=== PATIENT | female | born 1960 | race Caucasian/White ===

== ENCOUNTER 2018-02-13 15:19 | Emergency (ER) | payer MEDICAID, SELFPAY ==
[2018-02-13 15:20] VITALS: BP 140/78; PULSE 89; RESP 16; TEMP 36.9; O2SAT 95; BMI 36.0
--- NOTE | 2018-02-13 15:50 | VDLE_ITS ---
Reason For Study: PAIN RIGHT GSV is normal. CFV is compressible, spontaneous, phasic, competent and demonstrates normal augmentation. FV is compressible, spontaneous, phasic, competent and demonstrates normal augmentation. POP V is compressible, spontaneous, phasic, competent and demonstrates normal augmentation. T/P Trunk is compressible. PTV is compressible. RT PerV is compressible. Procedure Exam performed portable in ED. A preliminary report was called and/or faxed to ED. Interpretation Summary Deep veins of the right lower extremity are patent and compressible segmentally. There is no evidence of right lower extremity deep vein thrombosis. Valvular competence appears intact within the proximal deep venous system on the right . The right greater saphenous vein appears patent and compressible segmentally. Ordering Physician: Ann Martínez Referring Physician: FIONA DURANT Performed By: Citlali Cornell, SYLVIA, RVT
--- NOTE | 2018-02-13 16:01 | ED.DCSUM_ITS ---
- ER Visit Summary Date of Service: 02/13/18 Chief Complaint: Right leg pain and swelling History of Present Illness: The patient is a 57 F with tightness in the posterior right calf with the past 3 or 4 days. She feels that the area is swollen and is tight when she tries to walk. She denies any known injury. She has no weakness or paresthesias. 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 She denies history of prior blood clot. She has had no chest pain or shortness of breath. Physical Examination: Vital signs are unremarkable. Patient is in no acute distress and is nontoxic appearing. Head and neck examination is normal. Heart is regular rate and rhythm. Palpable pulses are noted throughout. Lungs are clear with good air movement throughout. Abdomen is soft and nontender. Bowel sounds are noted. Extremity examination is markable for mild right posterior calf tenderness with minimal edema. There is no overlying erythema. She has full range of motion. Neurologic examination reveals no focal deficits. Test Results: Venous ultrasound of the right leg reveals no evidence of DVT. Emergency Department Course and Treatment: Test results were discussed with patient and family at bedside. I believe she likely has a strain in 1 of the deep muscles in her right calf. Stretching was discussed along with anti- inflammatories for pain control. Treatment Plan: [] Disposition: Discharge Impression: Right calf strain This note was generated with [employer] dictation software. It may contain incorrect words, spelling, and punctuation that were not noted in review of the chart prior to signing ED Disposition - Plan for ED Patient: Chief Complaint: Lower Extremity Injury Referrals: Lulú Camacho MD [Primary Care Provider] -
--- NOTE | 2018-02-13 16:21 | ED.DEP ---
ED Disposition - Plan for ED Patient: Disposition: Home or Assisted Living Chief Complaint: Lower Extremity Injury Instructions: ED Strain Muscle Ext Referrals: Lulú Camacho MD [Primary Care Provider] - 1 Week if not improving
== END 2018-02-13 16:37 | disposition home or self-care (01) ==
LOC: ED 16:25
PROVIDERS: Emergency Provider Emergency Medicine; Family Provider Internal Medicine; PCP Internal Medicine
DX: S86.911A Strain of unspecified muscle(s) and tendon(s) at lower leg level, right leg, initial encounter (principal); X58.XXXA Exposure to other specified factors, initial encounter; Y93.9 Activity, unspecified; Y92.89 Other specified places as the place of occurrence of the external cause; Y99.9 Unspecified external cause status; J44.9 Chronic obstructive pulmonary disease, unspecified; G47.33 Obstructive sleep apnea (adult) (pediatric); Z72.0 Tobacco use
CPT/HCPCS: 93971; 99282

== ENCOUNTER 2019-02-17 11:45 | Emergency (ER) | payer MEDICAID, SELFPAY ==
[2019-02-17 11:46] VITALS: BP 139/92; PULSE 87; RESP 16; TEMP 35.7; O2SAT 98; BMI 36.7
[2019-02-17] MEDS: Ondansetron 4 MG/2 ML Vial IV (12:09)
[2019-02-17] MEDS: Morphine 4 MG/ML Syringe IV (12:10)
--- NOTE | 2019-02-17 12:17 | ED.DCSUM_ITS ---
History of Present Illness Chief Complaint: Back Informant: Patient Onset: Days - Onset 4 days ago Context: Gradual Onset Timing: Continuous Quality: Dull, Aching Location: Lumbar, Buttock, Right Leg - Posterior right leg to the popliteal fossa Current Severity: Mild Maximum Severity: Severe Associated Symptoms: - - The only associated symptom is radiation posterior right leg to the popliteal fossa. There is no bowel bladder dysfunction. There is no saddle paresthesia or anesthesia. There is no foot drop with walking. There is no weakness thigh muscles going up or down steps nor is her knee buckle. She prefer to sit versus standing. Narrative: Patient is a middle-aged woman who presents with right low back pain radiating to the popliteal fossa. Onset 4 days ago. She denies any neurovascular symptoms. Movement exacerbates her pain. She has not applied heat or ice to her back. She is taken [id number] ibuprofen with no effect. There are no concerning symptoms and history is unremarkable. Prior similar symptoms: No Recent Illness/Hospitalization: No Past Medical History - Allergies and Home Meds Allergies/Adverse Reactions: Allergies amoxicillin trihydrate [From Augmentin] Allergy (Verified 02/17/19 11:47) Hives potassium clavulanate [From Augmentin] Allergy (Verified 02/17/19 11:47) Hives Primary Care Physician: Lulú Camacho MD [Primary Care Provider] - Prior records reviewed: Yes Surgical History: noncontributory Lives: Spouse/ Significant Other Smoking Status: Current every day smoker Alcohol: Rare Review of Systems General: Denies: Chills, Fever, Malaise, Subjective, Sweats, Weight loss Eyes: Denies: Visual changes - bilaterally, Diplopia ENT: Denies: Rhinorrhea, Sore throat Cardiovascular: Denies: Chest pain, Palpitations Respiratory: Denies: Dyspnea, Cough, Dyspnea on exertion Gastrointestinal: Denies: Abdominal pain, Nausea, Vomiting, Diarrhea, Melena, Hematochezia Genitourinary: Denies: Dysuria, Hematuria, Frequency Musculoskeletal: Reports: Back pain. Denies: Myalgias, Arthralgias, Neck pain, Swelling, Extremity Pain, -, - Skin: Denies: Rash, Wounds Neurological: Denies: Headache, Weakness, Parasthesia, Numbness, -, - Hematologic: Denies: Easy bruising, Easy bleeding Allergy: Denies: Uticaria, Swelling of the mouth Physical Exam Vital Signs/Narrative: Vital Signs Temp Pulse Resp BP Pulse Ox 02/17/19 11:46 96.2 F L 87 16 139/92 H 98 Inital Vital Signs reviewed: Yes General: Well nourished, Well developed, Obese Head: Normocephalic, Atraumatic Eyes: Perrl, EOMI ENT: Moist mucous membranes, No rhinorrhea Neck: Supple, Nontender, No lymphadenopathy, No JVD Cardiovascular: Regular rate, Regular rhythm, No murmurs, Normal S1, Normal S2 Respiratory: No distress, CTA bilaterally, Chest nontender Abdomen: Soft, Nontender, Nondistended, Normal bowel sounds Back: Normal Inspection, Nontender, Paraspinal Tenderness, Positive SLR - Right, Negative SLR - Left. Negative for: Spinal tenderness, CVA tenderness, Positive SLR - Left Extremeties: Nontender, No edema Skin: Normal color, No rash, No Trauma. Negative for: Cyanosis, Jaundice Neuro: Alert, Oriented, Normal Strength, Normal Sensation, Normal DTR, Normal Gait, Normal Reflexes, Normal Cerebellar Reflexes: Right Patellar, Right Achilles, Left Patellar, Left Achilles, - - DTR 1+ symmetric. EHL intact. Patient able to ambulate on heels and toes. Patient able to do 1 legged squat right and left. Normal perianal sensation.. Negative for: Right Clonus, Right Babinski, Left Clonus, Left Babinski Psychological: Normal affect Diagnostic/Tx/Re-eval - Medical Decision Making Patient has equivocal straight leg test on the right. Negative crossover test on the left. Positive bowstring sign. Patient was medicated with 50 mill grams Toradol IV push and 4 mg of morphine IV push. She also received Zofran to prevent nausea and vomiting. Will reassess in 30 to 60 minutes. Patient was reevaluated at 1245. She reports marked improvement of her pain. Will discharge to home to follow-up with her primary care physician. ED Disposition - Plan for ED Patient: Disposition: Home or Assisted Living Diagnosis: Acute right-sided low back pain with sciatica Instructions: ED Sciatica Prescriptions: Hydrocodone Bitart/Apap 5-325 [[place] 5MG-325MG] 1 tab PO Q6H PRN PRN 3 Days #10 tab PRN Reason: Pain Referrals: Lulú Camacho MD [Primary Care Provider] - 3-5 Days if not improving Additional Instructions: If you develop a foot drop return to the emergency department immediately.
[2019-02-17] MEDS: Ketorolac 15 MG/ML Vial IV (12:20)
[2019-02-17 12:54] VITALS: BP 124/65; PULSE 74; RESP 18
== END 2019-02-17 12:55 | disposition home or self-care (01) ==
PROVIDERS: Emergency Provider Emergency Medicine; Family Provider Internal Medicine; PCP Internal Medicine
DX: M54.41 Lumbago with sciatica, right side (principal); F17.200 Nicotine dependence, unspecified, uncomplicated; Z88.0 Allergy status to penicillin
CPT/HCPCS: 99284; A4216; J2405

== ENCOUNTER 2019-10-08 23:28 | Inpatient (IN) | payer MEDICAID, SELFPAY ==
[2019-10-08 23:30] VITALS: BP 149/77; PULSE 86; RESP 20; TEMP 36; O2SAT 94; BMI 36.4
--- NOTE | 2019-10-08 23:33 | RAD_ITS ---
HISTORY: CHEST PAINSTEMI ADDITIONAL HISTORY: None provided. TECHNIQUE: Frontal chest radiograph. Number of images including paperwork: 2 COMPARISON: 10/15/2017 FINDINGS: LUNGS AND PLEURA: No consolidation, mass or pleural effusion. CARDIAC SILHOUETTE: Unremarkable. MEDIASTINUM AND CESARIO: Unremarkable. UPPER ABDOMEN: Unremarkable. SKELETON AND SOFT TISSUES: No acute findings. OTHER DEVICES AND HARDWARE: None. RAD/Chest 1 View (Portable) IMPRESSION: No acute cardiopulmonary abnormality. at 0029 Reported and signed by: Mahi Hanson MD Electronically Signed: Mahi Hanson MD at 0:28 EST Tel , Service support ,
--- NOTE | 2019-10-08 23:33 | EKG12_ITS ---
Test Reason : CP Blood Pressure : / mmHG Vent. Rate : 063 BPM Atrial Rate : 063 BPM P-R Int : 154 ms QRS Dur : 086 ms QT Int : 358 ms P-R-T Axes : 069 101 101 degrees QTc Int : 366 ms AGE AND GENDER SPECIFIC ECG ANALYSIS Normal sinus rhythm Rightward axis ST elevation consider inferior injury or acute infarct ACUTE ID / STEMI Consider right ventricular involvement in acute inferior infarct Abnormal ECG Confirmed by ELIAS MATHUR, CRISTINA ([id number]), editor & co founder GINA SANDERSON ([id number]) on 10/10/2019 2:13:55 PM Referred By: Jose Francisco Dior Confirmed By:CRISTINA GRIFFIN MD
[2019-10-08 23:37] VITALS: PULSE 82; RESP 15; O2SAT 99
[2019-10-08] MEDS: Aspirin 81 MG TAB.CHEW 324 MG PO (23:41)
[2019-10-08 23:42] VITALS: O2SAT 100
--- NOTE | 2019-10-08 23:42 | EKG12_ITS ---
Test Reason : POST CATH Blood Pressure : / mmHG Vent. Rate : 076 BPM Atrial Rate : 076 BPM P-R Int : 166 ms QRS Dur : 082 ms QT Int : 428 ms P-R-T Axes : 080 095 -18 degrees QTc Int : 481 ms Normal sinus rhythm Nonspecific T wave abnormality Prolonged QT Abnormal ECG When compared with ECG of 08-OCT-2019 23:34, MANUAL COMPARISON REQUIRED, DATA IS UNCONFIRMED Confirmed by WES MATHUR, NELIA ([id number]), photography editor CYNDI MIDDLETON ([id number]) on 10/14/2019 9:14:53 AM Referred By: Jose Francisco Dior Confirmed By:NELIA HARVEY MD
[2019-10-08 23:44] VITALS: O2SAT 100
--- NOTE | 2019-10-08 23:44 | ED.VIS.GEN ---
History of Present Illness Chief Complaint: Chest Pain Informant: Patient Narrative: Presents with chest pain for last 2 hours. She stated it came on at rest. Substernal with some mild shortness of breath and sweating and nausea. No history of heart attack. Smokes cigarettes. History of COPD. No home treatment. Current severity is moderate. Past Medical History - Allergies and Home Meds Allergies/Adverse Reactions: Allergies amoxicillin trihydrate [From Augmentin] Allergy (Verified 10/08/19 23:28) Hives potassium clavulanate [From Augmentin] Allergy (Verified 10/08/19 23:28) Hives Primary Care Physician: Lulú Camacho MD [Primary Care Provider] - Prior records reviewed: Yes Past Medical History: - - COPD Surgical History: noncontributory Lives: With Family Smoking Status: Current every day smoker Alcohol: None Drugs: None Review of Systems General: Denies: Chills, Fever, Sweats Eyes: Denies: Visual changes - bilaterally, Diplopia ENT: Denies: Rhinorrhea, Sore throat Cardiovascular: Reports: Chest pain. Denies: Palpitations Respiratory: Reports: Dyspnea. Denies: Cough, Dyspnea on exertion Gastrointestinal: Reports: Nausea. Denies: Abdominal pain, Vomiting, Diarrhea, Melena, Hematochezia Genitourinary: Denies: Dysuria, Hematuria, Frequency Musculoskeletal: Denies: Back pain, Extremity Pain Skin: Denies: Rash, Wounds Neurological: Denies: Headache, Weakness, Numbness Physical Exam Vital Signs/Narrative: Vital Signs Temp Pulse Resp BP Pulse Ox 10/08/19 23:42 100 10/08/19 23:37 15 10/08/19 23:30 96.8 F L 86 20 H 149/77 H 94 General: Well nourished, Well developed, No Acute Distress Head: Normocephalic, Atraumatic Eyes: Perrl, EOMI ENT: Moist mucous membranes, No rhinorrhea Neck: Supple, Nontender Cardiovascular: Regular rate, Regular rhythm, No murmurs Respiratory: No distress, CTA bilaterally, Chest nontender Abdomen: Soft, Nontender, Nondistended, Normal bowel sounds Back: Nontender, Normal Inspection Extremities: Nontender, No edema Skin: Normal color, No rash Neurological: Alert, Oriented x3, Cranial nerves II-XII grossly intact, Normal Strength, Normal Sensation Psychological: Normal affect, Normal Mood Diagnostic/Tx/Re-eval - Medical Decision Making Initial EKG shows an inferior acute STEMI at a rate of 63. Positive reciprocal changes. Discussed with cardiology. Patient has 2 large-bore IVs. Given heparin aspirin and Brilinta. Patient will acutely go to the heart labeling specialist. We will hold on nitroglycerin as the patient has an inferior DC. Hemodynamically stable at this time. - Critical Care Time Critical care time (excluding procedures): 30-74 minutes ED Disposition - Plan for ED Patient: Disposition: Acute Care Hospital [facility] Diagnosis: ST elevation myocardial infarction (STEMI)
[2019-10-08] MEDS: Heparin Injection (Vial) 5,000 UNIT/ML VIAL 4000 UNIT IV (23:46)
[2019-10-08 23:49] VITALS: BP 141/97; PULSE 85; RESP 15; O2SAT 99
[2019-10-08] MEDS: TICAGRELOR 90 MG TABLET 180 MG PO (23:49)
[2019-10-08 23:51] VITALS: BP 141/97; PULSE 93; RESP 20; O2SAT 99
--- NOTE | 2019-10-08 23:59 | PCM.HP.STD ---
Problem List (1) STEMI (ST elevation myocardial infarction) Status: Acute History of Present Illness Date of Admission: 10/08/19 Chief Complaint: CHEST PAIN The patient is a 58 year old F with a significant history of asthma; COPD; tobacco abuse and marijuana abuse who presents emergency department with a 2-hour history of excruciating right-sided chest pain that went to her throat. She describes her pain as pain as pressure-like. Associated with her symptoms is shortness of breath; nausea and diaphoresis. Her chest pain has been going on for 2 weeks but in the last 2 hours it has became excruciating. At the emergency department EKG showed ST elevation in inferior leads. STEMI alert was called. Past Medical History Medical History: Medical History (Last Reviewed 10/09/19 @ 02:58 by Heriberto Marrufo MD) COPD (chronic obstructive pulmonary disease) J44.9 Allergies amoxicillin trihydrate [From Augmentin] Allergy (Verified 10/08/19 23:28) Hives potassium clavulanate [From Augmentin] Allergy (Verified 10/08/19 23:28) Hives Home Medications: Ambulatory Orders Medication Instructions Recorded Albuterol Sulfate [Ventolin Hfa] 2 puff INHALATION PRN PRN 03/04/14 Mometasone/Formoterol [Dulera 200 2 inhaler INHALATION BID 10/15/17 Mcg/5 Mcg Inhaler] Benzonatate [Tessalon Perle] 100 mg PO TID 02/13/18 Montelukast [Singulair] 10 mg PO DAILY 02/13/18 Trospium Chloride [Sanctura Xr] 60 mg PO DAILY 02/13/18 traZODone [Desyrel] 50 mg PO QHS 02/13/18 Surgical History: cholecystectomy, hysterectomy Lives: With Family Smoking Status: Current every day smoker Tobacco Use: Secondhand Alcohol: None Drugs: Marijuana - *Family History Paternal History Items: - - Patient does not know her maternal or paternal medical history Maternal History Items: - - Patient does not know her maternal or paternal medical history Review of Systems Constitutional: Denies: Chills, Fever, Weight Change HEENT: Denies: Head Aches, Sinus Congestion, Sinus Drainage Cardiovascular: Reports: Chest Pain. Denies: Palpitations Respiratory: Reports: Shortness of Breath. Denies: Cough, Shortness of breath at rest, Sputum production Gastrointestinal: Reports: Nausea, Vomiting. Denies: Abdominal Pain Genitourinary: Denies: Dysuria Musculoskeletal: Denies: Joint Pain, Joint Tenderness Skin: Denies: Rash, Wounds Neurological: Denies: Numbness, Tingling, Focal weakness Psychiatric: Denies: Homicidal Ideations, Suicidal Ideations Hematologic/ Lymphatic: Denies: Easy Bruising, Easy Bleeding VTE Information - Inpt Only VTE Present on Admission: No VTE Mechan Device Prophylaxis: None VTE Pharm Prophylaxis ordered?: No Reason prophylaxis not ordered:: Treatment Not Indicated - Not indicated since patient was started on therapeutic dose of heparin for elevation IL. - Physical Exam Vitals/I&O's: Vital Signs Temp Pulse Resp BP Pulse Ox 96.8 F L 93 20 H 141/97 H 99 10/08/19 23:30 10/08/19 23:51 10/08/19 23:51 10/08/19 23:51 10/08/19 23:51 Oxygen Flow Rate (L/min) 2 Oxygen Delivery Method Nasal Cannula Weight: 84.6 kg Body Mass Index (BMI) 36.4 General: Alert, Oriented x3, Cooperative HEENT: Atraumatic, PERRLA, EOMI, Normocephalic Neck: Supple, No JVD, Negative Carotid Bruits Lungs: Clear to auscultation, Normal air movement Cardiovascular: Regular rate, Normal S1, Normal S2, No murmurs Abdomen: Bowel Sounds Present, Soft, Non Tender Extremities: No edema, Capillary Refill Less than 3 Seconds Skin: No rashes, No breakdown Musculoskeletal: No Tenderness to Palpation of Joints or Extremities Neurological: Cranial nerves II-XII grossly intact Psych/Mental Status: Normal Affect, Appropriate Laboratory Results 10/08/19 23:40: PT Pending, INR Pending, APTT Pending 10/08/19 23:40: Serum , Qual Pending Assessment/Plan All Active Problems (Last Updated 10/09/19 @ 00:14 by Heribetro Marrufo MD) STEMI (ST elevation myocardial infarction) (Acute) The patient is a 58 year old F with a significant history of asthma; COPD; tobacco abuse and marijuana abuse who presents to the emergency department with a 2-hour history of excruciating right-sided chest pain that went to her throat and EKG finding of ST elevation in inferior leads. ST elevation IL. Patient received full dose aspirin; Brilinta and heparin at emergency department. Emergent department doctor discussed the case with certified rehabilitation counselor. Nitroglycerin was not given since patient was having inferior leads IL. Patient was wheeled to the cardiac cath. Follow recommendations after cardiac cath. COPD Home inhalers continued. Tobacco abuse Counseled or prescribed nicotine patch. Marijuana abuse Counselled. DVT Prophylaxis Not indicated since patient was started on therapeutic dose of heparin for ST elevation IL. Code Visit Inpatient E&M: 47313 Init Hosp L3
[2019-10-09] VITALS (36 sets, daily range): BP systolic 83–169; BP diastolic 36–89; PULSE 66–97; RESP 12–30; TEMP 35.9–36.6; O2SAT 92–99; BMI 38.0; BMI 36.3
[2019-10-09 00:04] LABS: Absolute Lymphocyte Count 3.82 X10^3/uL (0.83-4.51); Absolute Neutrophil Count 7.5 X10^3/uL (2.0-7.7); Basophil# 0.08 X10^3/uL; Basophil% 0.6 % (0-1); Eosinophil# 0.31 X10^3/uL; Eosinophils% 2.4 % (0-5); Hematocrit 47.1 % (37-47); Hemoglobin 15.6 g/dL (12.0-15.0); Lymphocyte # 3.82 X10^3/ul (4.0); Lymphocyte % 29.7 % (19-41); Mean Corp Hgb Conc 33.1 g/dL (32-36); Mean Corpuscular Hgb 29.9 pg (27.0-32.0); Mean Corpuscular Volume 90.2 fL (81-99); Mean Platelet Vol. 10.3 fl (6.2-12.0); Monocyte# 1.01 X10^3/uL; Monocyte% 7.9 % (0-10); NRBC Flagged by Analyzer 0 % (0-5); Neutrophil # 7.53 X10^3/uL (2.7-7.7); Neutrophil % 58.6 % (47-70); Platelet Count 234 K/mm3 (150-450); RBC Distribution Width CV 14.1 % (11.6-14.6); RBC Distribution Width SD 46.8 fl (35.1-43.9); Red Blood Count 5.22 M/mm3 (4.2-5.4); White Blood Count 12.9 K/mm3 (4.4-11.0)
[2019-10-09 00:16] LABS: Anion Gap 5 (5-15); BUN 18 mg/dL (7-18); BUN/Creat Ratio 15.7 RATIO (10-20); Calcium,Total 9.6 mg/dL (8.5-10.1); Chloride 107 mmol/L (98-107); Creatinine, Serum 1.15 mg/dL (0.55-1.02); EST Glomerular Filtration Rate 52 mL/min (>60); Est Glom Filt Rate - Afr Amer 62 mL/min (>60); Estimated Creatinine Clearance 38.77 ml/min; Glucose 130 mg/dL (74-106); Potassium 3.8 mmol/L (3.5-5.1); Sodium Level 142 mmol/L (136-145)
[2019-10-09 00:31] LABS: Partial Thromboplast Time 25.9 Seconds (24.1-36.2); Prothrombin Time (Protime)PT. 12.8 SECONDS (11.7-14.9)
[2019-10-09] MEDS: dilTIAZem 25 MG/5 ML Vial 10 MG IV BOLUS (01:07)
--- NOTE | 2019-10-09 01:19 | ECHOCS_ITS ---
Reason For Study: S/P IA Procedure This was a 2D Doppler, Color Flow transthoracic echocardiogram. The study was technically difficult. Contrast injection was performed. Exam performed portable in ICU/CCU. Left Ventricle Moderate concentric left ventricular hypertrophy. The estimated ejection fraction is 75 %. Stage 1 diastolic dysfunction. No regional wall motion abnormalities noted. Right Ventricle Normal size and thickness. Normal systolic function. Atria Normal left atrium. Normal right atrium. Normal atrial septum. Mitral Valve The mitral valve is structurally normal. No prolapse or stenosis seen. Tricuspid Valve Normal tricuspid valve. Unable to estimate RV systolic pressure due to insufficient tricuspid regurgitant envelope. Aortic Valve Normal aortic valve. Trisinus/trileaflet aortic valve. Pulmonic Valve Normal pulmonic valve. Great Vessels Normal aortic root. Normal arch. Normal inferior vena cava. Inferior vena cava collapse with sniff. Pericardium/Pleural No pericardial effusion. Medication Diluted definity 4ml given slow IV push to enhance endocardial definition. MMode/2D Measurements & Calculations LVIDd: 3.1 cm IVSd: 1.4 cm Ao root diam: 3.1 cm LVIDs: 2.0 cm LVPWd: 1.3 cm LA dimension: 3.2 cm FS: 35.9 % LAV(MOD-bp): 23.0 ml LA A4 area: 10.0 cm2 RA A4 area: 9.5 cm2 LAV(MOD-bp) Indexed: 12.5 ml/m2 LAV(MOD-sp2): 27.5 ml LAV(MOD-sp4): 18.9 ml Time Measurements MV dec time: 0.31 sec Doppler Measurements & Calculations MV E max vasu: 78.5 cm/sec Lat Peak E' Vasu: 9.2 cm/sec Med Peak E' Vasu: 6.8 cm/sec MV A max vasu: 97.5 cm/sec E/E' lat: 8.5 E/E' med: 11.6 MV E/A: 0.80 MV V2 max: 112.7 cm/sec MV P1/2t max vasu: 103.0 cm/sec Ao V2 max: 171.4 cm/sec MV max P.1 mmHg MV P1/2t: 95.0 msec Ao max P.8 mmHg MV V2 mean: 56.4 cm/sec MV dec slope: 317.8 cm/sec2 Ao V2 mean: 103.4 cm/sec MV mean P.5 mmHg Ao mean P.1 mmHg MV V2 VTI: 32.5 cm MVA(P1/2t): 2.3 cm2 Ao V2 VTI: 26.9 cm LV V1 max: 125.2 cm/sec PA V2 max: 94.4 cm/sec LV V1 max P.3 mmHg LV V1 mean P.0 mmHg LV V1 mean: 80.2 cm/sec LV V1 VTI: 24.2 cm Interpretation Summary Moderate concentric left ventricular hypertrophy. The estimated ejection fraction is 75 %. Stage 1 diastolic dysfunction. Unable to estimate RV systolic pressure due to insufficient tricuspid regurgitant envelope. The study was technically difficult. Contrast injection was performed. There is no comparison study available. Ordering Physician: Jose Francisco Dior Referring Physician: Lulú Camacho M.D. Performed By: Yaya Osei RCS
--- NOTE | 2019-10-09 01:19 | EKG12_ITS ---
Test Reason : AM EKG Blood Pressure : / mmHG Vent. Rate : 081 BPM Atrial Rate : 081 BPM P-R Int : 144 ms QRS Dur : 076 ms QT Int : 362 ms P-R-T Axes : 046 090 035 degrees QTc Int : 420 ms Normal sinus rhythm Normal ECG When compared with ECG of 09-OCT-2019 01:46, MANUAL COMPARISON REQUIRED, DATA IS UNCONFIRMED Confirmed by WES MATHUR, NELIA ([id number]), business editor CYNDI MIDDLETON ([id number]) on 10/14/2019 9:12:33 AM Referred By: Jose Francisco Dior Confirmed By:NELIA HARVEY MD
--- NOTE | 2019-10-09 01:35 | CL.I_ITS ---
Patient Name: MAUREEN WHITLEY Study Date: 10/09/2019 Performing: Jose Francisco Dior MD Ht: 60 inches 152.4 cm : 1960 Wt: 185.98 lbs 84.36 kg Age: 58 Gender: female BSA: 1.81 PROCEDURE(S) PERFORMED [id number]/COR/LV [id number], YUDELKA AND/OR PTCA, ARTERY OR GRAFT, SINGLE VESSEL [id number] W OR WO PTCA, EACH ADD'L ARTERY, SAME MAJOR CLINICAL PROFILE AND CO-MORBIDITIES Patient presents with STEMI for emergent cardiac cath. Indications: ACS <= 24 hrs, New Onset Angina <= 2 months, Worsening Angina, Suspected CAD Heart Failure: None Stress/Imaging Stress/Image Study Performed: No Angina Classification Anginal Classification w/in 2 Weeks: CCS III CAD Presentations: STEMI. Symptom onset Date/Time: 10/08/2019 Time Not Available Comorbidities/Risk Factors: Current/Recent Smoker (< 1year) Hypertension Chronic Lung Disease CONCLUSIONS Perserved Left Ventricular systolic function with normal EDP LVEF: by LV gram 75 % Depressed Left Ventricular systolic function - Trivial Single vessel CAD of the RCA Successful PTCA/YUDELKA mid RCA with a 3.5 x 28 Promus Synergy, followed immediately upstream with a 3.5 x 24 Promus Synergy, all post dilated throughout with a 4.0 x 12 NC balloon, followed focally with a 4.5 x 8 NC balloon; 85%-->0%, no dissection. Care was taken not to stent into the open area of the e ctatic portion of the RCA. Successful PTCA/YUDELKA RPL branch with a 2.25 x 16 Promus Synergy stent; 75%-->0%, no dissection. RECOMMENDATIONS Referred for immediate PCI Highly recommend quitting all tobacco products Follow up with primary medical lab scientist Risk factor modification ASA Indefinitley Plavix for at least 12 months Routine post interventional care Refer for Outpatient Cardiac Rehab Manual sheath removal per protocol Follow up with Dr. Dior Successful Mynx Control Closure of RFA. No additional stenting needed Would not recommend beta blockers as pt is unable to tolerate them due to COPD and Asthma. Will start Verapamil ER 120mg po daily and titrate up from there. DESCRIPTION OF PROCEDURE The patient arrived to the procedure lab. The risks and benefits of the procedure as well as a full d escription of our services here and lack of surgical backup were fully explained to the patient and/o r their significant other prior to the catheterization. The Timeout was completed, verifying the rickey ect patient and procedure. The patient's procedural site was prepped and draped in the usual fashion. Local anesthetic was given subcutaneously to right groin region with Lidocaine 2%. Using a modified Seldinger technique, arterial access was obtained via the right femoral artery, a 6Fr sheath was inse rted.. Left Coronary Artery selective angiography was performed in multiple views using a 4 Fr. JL5 catheter. Right Coronary Artery selective angiography was then performed in multiple views using a 4 Fr. HS 2. Left Ventriculography was performed in QUIROGA projection using a 4 Fr. Pigtail catheter. LV to AO pullback pressures were then recorded RUNTHROUGH Guide wire was advanced to the RCA. EMERGE 2.00 X 12 Balloon catheter was advanced acr oss lesion in the right coronary, mid. PTCA balloon inflated at 8 atms for 8 secs. Angiogram performe d post balloon dilatation. SYNERGY 2.5 X 28 Drug Eluting stent was advanced across the lesion in the right coronary, mid. Angiogram performed post stent deployment. synergy 3.5 x 24 Drug Eluting stent w as advanced across the lesion in the right coronary, mid. Angiogram performed post stent deployment. nc emerge 4.00 x 12 Balloon catheter was inserted post stent. Angiogram performed post balloon dilata tion. emerge 2.00 x 12 Balloon catheter was advanced across lesion in the right posterior lateral mi d PTCA balloon inflated at 6 atms for 8 secs. PTCA balloon inflated at 6 atms for 6 secs. synergy 2.2 5 x 16 Drug Eluting stent was advanced across the lesion in the right posterior lateral mid Angiogra m performed post stent deployment. nc emerge 4.5 x 8 Balloon catheter was inserted post stent into the rca mid Angiogram performed post balloon dilatation. Contrast was injected through the sheath and the Right Iliac and Femoral artery were assessed for possible closure device. The arteri al sheath was pulled and a Mynx closure device was deployed for hemostasis CORONARY ANGIOGRAPHY DOMINANCE: Right Dominant LEFT HEART ASSESSMENT Left Ventricular Ejection Fraction: by LV Gram 75 % Normal Left Ventricular systolic function Inferior Mid Hypokinesis - Trivial LEFT MAIN: Angiographically normal LEFT ANTERIOR DESCENDING ARTERY: PROX LAD: Mild luminal irregularities less than 30% CIRCUMFLEX ARTERY: Mild luminal irregularities less than 30% RIGHT CORONARY ARTERY: MID RCA: 85 % Stenosis RT PLV: 75 % Stenosis INTERVENTION INFORMATION LESION SITE: RCA (Mid) Lesion Complexity: High/C, lesion at bifurcation: No, thrombus present: No, lesion length: 52 mm, cul prit lesion: Yes Pre Stenosis: 85 % Pre intervention XOCHILT flow: 3 PROCEDURE: Drug Eluting Stent with pre and post dilatation Post Stenosis: 0 % Post intervention XOCHILT flow: 3 Lesion Devices: Medtronic 6 Fr HSII 100cm Guide Catheter Alpesh Sci EMERGE MR 2.00x12 BALLOON Alpesh Sci Synergy MR YUDELKA 3.50x28 Alpesh Sci Synergy MR YUDELKA 3.50x24 Alpesh Sci NC EMERGE MR 4.00x12 BALLOON Alpesh Sci NC EMERGE MR 4.50x08 BALLOON LESION SITE: RPL (1st) Lesion Complexity: Non-High/Non-C, lesion at bifurcation: No, thrombus present: No, lesion length: 16 mm, culprit lesion: No Pre Stenosis: 75 % Pre intervention XOCHILT flow: 3 PROCEDURE: Drug Eluting Stent with pre dilatation. Post Stenosis: 0 % Post intervention XOCHILT flow: 3 Lesion Devices: Medtronic 6 Fr HSII 100cm Guide Catheter Alpesh Sci EMERGE MR 2.00x12 BALLOON Alpesh Sci Synergy MR YUDELKA 2.25x16 COMPLICATIONS No Complications PROCEDURE MEDICATIONS Oxygen: 2 L/min via nasal cannula Cardizem 10 mg IV 10/09/2019 01:07:57 Heparin 63287 unit(s) IV 10/09/2019 00:31:35 Nitro 200 mcg IC 10/09/2019 00:35:49 Nitro 200 mcg IC 10/09/2019 00:35:49 Nitro 200 mcg IC 10/09/2019 00:47:40 SUMMARY OF HEMODYNAMIC DATA Time AIR REST ECG 00:13:01 AO 183/73 (115) SA 00:23:47 LV 178/-21, 15 01:02:17 LV 172/-15, 13 01:02:24 LVp 179/-20, 11 01:02:29 AOp 179/76 (117) 01:02:35 Signed By Jose Francisco Dior MD On 10/09/2019 01:35:10 Jose Francisco Dior MD
[2019-10-09 02:21] LABS: ACT Activated Clotting Time 219 sec (74-137)
[2019-10-09 02:21] LABS: ACT Activated Clotting Time 197 sec (74-137)
[2019-10-09] MEDS: 0.9% Normal Saline 1,000 ML 150 ML IV (02:48)
[2019-10-09 03:02] LABS: Absolute Lymphocyte Count 1.89 X10^3/uL (0.83-4.51); Absolute Neutrophil Count 11.3 X10^3/uL (2.0-7.7); Basophil# 0.06 X10^3/uL; Basophil% 0.4 % (0-1); Eosinophil# 0.14 X10^3/uL; Hematocrit 40.9 % (37-47); Hemoglobin 13.5 g/dL (12.0-15.0); Lymphocyte # 1.89 X10^3/ul (4.0); Lymphocyte % 13.3 % (19-41); Mean Corpuscular Hgb 29.9 pg (27.0-32.0); Mean Corpuscular Volume 90.5 fL (81-99); Mean Platelet Vol. 10.2 fl (6.2-12.0); Monocyte# 0.66 X10^3/uL; Monocyte% 4.7 % (0-10); NRBC Flagged by Analyzer 0 % (0-5); Neutrophil # 11.33 X10^3/uL (2.7-7.7); Neutrophil % 79.9 % (47-70); Platelet Count 200 K/mm3 (150-450); RBC Distribution Width CV 14.3 % (11.6-14.6); RBC Distribution Width SD 47.4 fl (35.1-43.9); Red Blood Count 4.52 M/mm3 (4.2-5.4); White Blood Count 14.2 K/mm3 (4.4-11.0)
[2019-10-09 04:02] LABS: ALB/GLOB Ratio 0.8 RATIO (0.9-2.4); AST(SGOT) 11 U/L (15-37); Alanine Aminotransfer ALT/SGPT 22 U/L (13-56); Albumin, Serum 2.8 g/dL (3.2-5.0); Alkaline Phosphatase 102 U/L (45-117); Anion Gap 4 (5-15); BUN 16 mg/dL (7-18); BUN/Creat Ratio 17.3 RATIO (10-20); Calcium,Total 8.7 mg/dL (8.5-10.1); Chloride 108 mmol/L (98-107); Creatinine, Serum 0.92 mg/dL (0.55-1.02); EST Glomerular Filtration Rate 66 mL/min (>60); Est Glom Filt Rate - Afr Amer 80 mL/min (>60); Estimated Creatinine Clearance 48.46 ml/min; Globulin 3.5 g/dL (2.2-4.2); Glucose 123 mg/dL (74-106); Potassium 4.2 mmol/L (3.5-5.1); Protein, Total 6.3 g/dL (6.4-8.2); Sodium Level 140 mmol/L (136-145)
[2019-10-09] MEDS: Benzonatate 100 MG Capsule PO ×3 (05:49→21:14)
[2019-10-09] MEDS: Albuterol 2.5 MG/3 ML VIAL.NEB. INHALATION ×2 (06:55→19:19)
[2019-10-09] MEDS: Budesonide Respules 0.5 MG/2 ML AMPUL.NEB. INHALATION ×2 (06:55→19:19)
--- NOTE | 2019-10-09 07:17 | PN_ITS ---
Reason for Visit: Follow-up acute ST segment elevation NM Subjective: Patient is a 58-year-old lady who presented with a 2 history of chest pain radiating to the neck EKG obtained in the ED was consistent with acute inferior ST segment elevation NM patient underwent emergency left heart catheterization she was found to have a single-vessel coronary artery disease 75% lesion in the RCA for which he underwent successful PTCA/YUDELKA Objective: GENERAL: cooperative HEENT: Atraumatic; EYES; Anicteric, Normal Conjunctiva NECK; supple, normal thyroid, RESPIRATORY: Diminished to auscultation CARDIOVASCULAR: Regular S1 S2, GI: soft, normoactive bowel sounds, : No Renal angle tenderness; EXTREMITIES: No edema, no clubbing, MUSCULOSKELETAL: no muscle waisting NEURO: Awake; no lateralizing signs. SKIN: No Rash PSYCH; Flat affect Vitals/I&O's: Vital Signs Temp Pulse Resp BP Pulse Ox 97.9 F 71 18 162/47 H 97 10/09/19 04:00 10/09/19 06:00 10/09/19 06:00 10/09/19 06:00 10/09/19 06:00 Oxygen Flow Rate (L/min) 2 Oxygen Delivery Method Room Air Weight: 88.3 kg Body Mass Index (BMI) 38.0 Intake and Output for Last 24 Hours 10/07/19 10/08/19 10/09/19 23:59 23:59 23:59 Intake Total 960 / 960 Output Total 400 / 400 Balance 560 / 560 Laboratory Results 10/08/19 23:40: WBC 12.9 H, RBC 5.22, Hgb 15.6 H, Hct 47.1 H, MCV 90.2, MCH 29.9 , MCHC 33.1, RDW Std Deviation 46.8 H, RDW Coeff of Keven 14.1, Plt Count 234, MPV 10.3, Immature Gran % (Auto) 0.800, Neut % (Auto) 58.6, Lymph % (Auto) 29.7, [place] % (Auto) 7.9, Eos % (Auto) 2.4, Baso % (Auto) 0.6, Absolute Neuts (auto) 7.5, Absolute Lymphs (auto) 3.82, Nucleated RBC % 0 10/08/19 23:40: Sodium 142, Potassium 3.8, Chloride 107, Carbon Dioxide 30.0, Anion Gap 5, BUN 18, Creatinine 1.15 H, Estim Creat Clear Calc 38.77, Est GFR (MDRD) Af Amer 62, Est GFR (MDRD) Non-Af 52 L, BUN/Creatinine Ratio 15.7, Glucose 130 H, Calcium 9.6, Troponin I < 0.015 10/08/19 23:40: PT 12.8, INR 1.0, APTT 25.9 10/08/19 23:40: Serum , Qual Cancelled 10/09/19 00:15: Activated Clotting Time 197 H 10/09/19 01:02: Activated Clotting Time 219 H 10/09/19 02:50: WBC 14.2 H, RBC 4.52, Hgb 13.5, Hct 40.9, MCV 90.5, MCH 29.9, MCHC 33.0, RDW Std Deviation 47.4 H, RDW Coeff of Keven 14.3, Plt Count 200, MPV 10.2, Immature Gran % (Auto) 0.700, Neut % (Auto) 79.9 H, Lymph % (Auto) 13.3 L, [place] % (Auto) 4.7, Eos % (Auto) 1.0, Baso % (Auto) 0.4, Absolute Neuts (auto) 11.3 H, Absolute Lymphs (auto) 1.89, Nucleated RBC % 0 10/09/19 02:50: Sodium Cancelled, Potassium Cancelled, Chloride Cancelled, Carbon Dioxide Cancelled, Anion Gap Cancelled, BUN Cancelled, Creatinine Cancell ed, Estim Creat Clear Calc Cancelled, Est GFR (MDRD) Af Amer Cancelled, Est GFR (MDRD) Non-Af Cancelled, BUN/Creatinine Ratio Cancelled, Glucose Cancelled, Calcium Cancelled, Total Bilirubin Cancelled, AST Cancelled, ALT Cancelled, Alkaline Phosphatase Cancelled, Total Protein Cancelled, Albumin Cancelled, Globulin Cancelled, Albumin/Globulin Ratio Cancelled 10/09/19 02:50: Sodium 140, Potassium 4.2, Chloride 108 H, Carbon Dioxide 28.0, Anion Gap 4 L, BUN 16, Creatinine 0.92, Estim Creat Clear Calc 48.46, Est GFR (MDRD) Af Amer 80, Est GFR (MDRD) Non-Af 66, BUN/Creatinine Ratio 17.3, Glucose 123 H, Calcium 8.7, Total Bilirubin 0.40, AST 11 L, ALT 22, Alkaline Phosphatase 102, Troponin I 0.043, Total Protein 6.3 L, Albumin 2.8 L, Globulin 3.5, Albumin/Globulin Ratio 0.8 L 10/09/19 05:45: Troponin I 0.067 H Current Medications Acetaminophen (Tylenol) 650 mg PO Q6H PRN PRN PRN Reason: Pain Score 1-10/Temp > 100.7 F Albuterol Sulfate (Ventolin Aerosols) 2.5 mg INHALATION Q2H PRN PRN Reason: SOB/WHEEZING Albuterol Sulfate (Ventolin Aerosols) 2.5 mg INHALATION Q6HWA.RT [facility] Last Admin: 10/09/19 06:55 Dose: 2.5 mg Documented by: Aspirin (Ecotrin) 81 mg PO DAILY@0800 [facility] Atorvastatin Calcium (Lipitor) 80 mg PO QHS [facility] Atropine Sulfate () 0.5 mg IV UD PRN PRN Reason: HR <50 bpm Benzonatate (Tessalon Perle) 100 mg PO TID [facility] Last Admin: 10/09/19 05:49 Dose: 100 mg Documented by: Budesonide (Pulmicort Aerosol) 0.5 mg INHALATION Q12H.RT [facility] Last Admin: 10/09/19 06:55 Dose: 0.5 mg Documented by: Diazepam (Valium) 5 mg PO Q6H PRN PRN PRN Reason: BACK SPASMS/ANXIETY Glucagon () 1 mg IM .X1 PRN PRN Reason: Hypoglycemia Heparin Sodium (Beef Lung) (Heparin 500 Unit/5 Ml (100/Ml)) 500 unit IV UD PRN PRN Reason: HEPARIN FLUSH Sodium Chloride () 1,000 mls @ 150 mls/hr IV .Q6H40M [facility] Stop: 10/09/19 07:58 Last Infusion: 10/09/19 06:00 Dose: 150 mls/hr Documented by: Dextrose (Dextrose 10%-Water) 250 mls @ 999 mls/hr IV .Q16M PRN; Protocol PRN Reason: HYPOGLYCEMIA Losartan Potassium (Cozaar) 25 mg PO DAILY [facility] Metoclopramide HCl (Reglan) 5 mg IV Q6H PRN PRN PRN Reason: NAUSEA/VOMITING Montelukast Sodium (Singulair) 10 mg PO DAILY [facility] Morphine Sulfate () 2 - 4 mg IV Q4H PRN PRN PRN Reason: Pain Score 1-10/10 Nicotine (Nicoderm Cq (Pbkc)) 21 mg TRANSDERM. DAILY [facility] Nitroglycerin (Nitrostat) 0.4 mg SUBLINGUAL Q5M PRN PRN Reason: CARDIAC/CHEST PAIN Ondansetron HCl (Zofran) 4 mg IV Q8H PRN PRN PRN Reason: NAUSEA/VOMITING Sodium Chloride () 500 ml IV BOLUS PRN PRN Reason: VASO-VAGAL PROTOCOL Sodium Chloride () 10 - 40 ml IV UD PRN PRN Reason: SALINE FLUSH Ticagrelor (Brilinta) 90 mg PO BID BRITTNY Tolterodine Tartrate (Detrol La) 4 mg PO DAILY BRITTNY Trazodone HCl (Desyrel) 50 mg PO QHS BRITTNY Verapamil HCl (Calan Sr) 120 mg PO DAILY BRITTNY STROKE Vital Signs/Narrative: Vital Signs Temp Pulse Resp BP BP Pulse Ox 10/09/19 06:00 71 18 162/47 H 97 10/09/19 05:00 71 19 H 148/60 H 97 10/09/19 04:02 67 10/09/19 04:00 97.9 F 68 19 H 143/60 H 97 10/09/19 03:30 81 18 133/36 H 96 Medical Necessity - Tobacco Use Smoking Status: Current every day smoker Tobacco Use: Secondhand Assessment/Plan All Active Problems (Last Reviewed 10/09/19 @ 02:58 by Heriberto Marrufo MD) STEMI (ST elevation myocardial infarction) (Acute) Patient is a 58-year-old lady who presented with a 2 history of chest pain radiating to the neck EKG obtained in the ED was consistent with acute inferior ST segment elevation NM patient underwent emergency left heart catheterization she was found to have a single-vessel coronary artery disease 75% lesion in the RCA for which he underwent successful PTCA/YUDELKA 1. Acute ST segment elevation NM involving inferior wall ?Patient noted to the intensive care unit, started on guideline directed therapy, underwent emergency left heart catheterization she was found to have a single-vessel coronary artery disease 75% lesion in the RCA for which he underwent successful PTCA/YUDELKA 2. COPD ?Patient did experience recent exacerbation treated with steroid antibiotics as well as antitussives 3. Tobacco dependence ?Counseled on cessation, offered nicotine patch for tobacco cravings 4. Morbid obesity ~With BMI of 38 did certified personal finance counselor patient on weight reduction 5. DVT prophylaxis ~patient did receive full dose heparin for her NM Code Visit Inpatient E&M: 95314 Subs Hosp L3
[2019-10-09 08:01] LABS: Bedside Glucose 107 mg/dL (70-110)
[2019-10-09] MEDS: Verapamil SR 240 MG Tablet 120 MG PO (08:09)
[2019-10-09] MEDS: Aspirin E.C. 81 MG Tablet PO (08:09)
[2019-10-09] MEDS: TICAGRELOR 90 MG TABLET PO ×2 (08:09→21:14)
[2019-10-09] MEDS: Losartan Potassium 25 MG Tablet PO (08:10)
[2019-10-09] MEDS: Tolterodine Tartrate 4 MG CAP.SA PO (08:10)
[2019-10-09] MEDS: Montelukast 10 MG Tablet PO (08:11)
--- NOTE | 2019-10-09 09:09 | CASEMGMT ---
RN CM Assessment Presentation: STEMI Intro role of CM and purpose of RN CM assessment to patient. Pt is awake, alert and able to participate in assessment. Demographics, PCP and Pharmacy verified. PCP: Dr. Camacho Specialists: Dr. Dior. Discussed importance of f/u with cardiology Preferred [facility]acy: [facility] Insurance: Yext Prescription Benefit: yes. Pt will return home on Brilinta. Savings card given to patient. LNOK: Son Yuniel Smith Living Arrangements: Lives independently. States she does not have care needs at home. Transportation: drives or son can drive if needed DME: does not use DME, has cane, walker and nebulizer HHC/SNF.: no history Patient DC goals: Home on discharge DC PLAN: Home Miko CURRY RN ACM
--- NOTE | 2019-10-09 10:15 | CRPHASE1_ITS ---
Patient Communication PHII Cardiac Rehab Discussed with Patient:: Yes Guide to Cardiac Rehab Given to Patient:: Yes Cardiac Rehab Facility Choice List Given to Patient:: Yes Choice Program [facility] PHII:: Communication Given to CR, Refer to [facility] Risk Factors/Lifestyle Smoking Status: Current every day smoker Second-Hand Smoke:: Yes Hx Hypertension: No Hx Diabetes Mellitus Type 1: No Hx Diabetes Mellitus Type 2: No Hx Dyslipidemia: Yes - pt states she has not been taking her med for this Height: 5 ft Weight:: 186 lb BMI: 36.3 Stress: Home/Family ETOH: No Substance Abuse: Yes - marijuana every kirk according to chart Issues Affecting Care:: None Knowledge of Condition:: No Hospital Course Pain Description: Pressure - pressure-like pain with associated nausea and diaphoresis Medical/Surgical History AL:: Yes - STEMI CAD:: Yes Pulmonary:: Yes - COPD AND ASTHMA COPD:: Yes Asthma:: Yes Diabetes:: No Hypertension:: No Dyslipidemia:: Yes - STATES SHE HASNT BEEN TAKING HER MED FOR CHOL Arrhythmias:: No PE:: No DVT:: No PVD:: No - GERD:: Yes Cancer:: No Renal:: No Thyroid:: No Depression:: Yes - PTSD Anxiety:: No CABG: No PTCA:: Yes - STENTS X3 10/09/2019 ICD:: No Pacemaker:: No Discharge/Home/Social Eval Discharge Disposition: Home Cardiac Rehabilitation Info Cardiac Rehabilitation Program Information: Cardiac Rehabilitation is important for patients like you who are recovering from a heart problem. Cardiac rehabilitation programs are recognized as integral to the continued care of the patient with coronary heart disease. The cardiac rehabilitation program is designed to optimize a patient's physical, psychological, and social functioning. Health care mgr work in cardiac rehabilitation programs and assist you with getting the treatments you need to get stronger and healthier - like exercise, healthy eating habits, and medications. Cardiac rehabilitation has been show to help people with heart problems live longer and have better life enjoyment than people who do not go to cardiac rehabilitation. Please contact the Cardiac Rehabilitation Program at [facility] at in two weeks if you have not heard from them.
--- NOTE | 2019-10-09 10:27 | CRPH1.INST_ITS ---
General Education CAD and cardiac anatomy and function:: Not instructed Explanation of diagnoses and procedures:: Not instructed Sign/Symptoms of VA:: Not instructed Antiplatelet therapy: Patient communicates acknowledgment, Needs reinforcement Proper use of NTG-SL: Not instructed Emergency procedures and activation of EMS: Patient communicates acknowledgment, Needs reinforcement Compliance of all prescribed medications: Patient communicates acknowledgment, Needs reinforcement Smoking Patient Nicotine/Smoking Risk Factors Are:: Cigarettes Recommendations Include:: Smoking cessation strategies/Smoking packet, Second- hand smoke recommendation, Participation in a smoking cessation program Nicotine/Smoking Response Code:: Needs reinforcement Dyslipidemia Recommendations Include:: Lipid profile not available Dyslipidemia Response Code:: Not instructed Overweight/Obesity Patient Overweight/Obesity Risk Factors Are:: Obesity - > or = 30 - BMI 36.3 Recommendations Include:: Weight loss of 5-10%, Reduced calorie diet, Exercise 5-7 times/week Overweight/Obesity:: Not instructed Hypertension Patient Hypertension Risk Factors Are:: No documented hx of HTN - PT DENIES HAVING HTN Heart Disease Heart Disease Response Code:: Not instructed Diabetes Patient Diabetes Risk Factors Are:: No documented hx of diabetes Metabolic Syndrome Metabolic Syndrome Response Code:: Not instructed Sedentary Sedentary Response Code:: Not instructed Stress Recommendations Include:: Identification of stressors, and assessment of coping skills, Stress management techniques - PT SPOKE OF FAMILY ISSUES THAT ARE CAUSING STRESS
[2019-10-09 12:01] LABS: Bedside Glucose 106 mg/dL (70-110)
--- NOTE | 2019-10-09 12:45 | PN.CARD_ITS ---
Subjectve: Patient feeling much better since her myocardial infarction last evening. Telemetry negative. Right groin is clean/dry/intact without evidence of t hrills, bruits or hematoma. EKG shows normal sinus rhythm, no acute changes, all ST elevation resolved. Peak troponin 0 0.185. Hemoglobin and creatinine within nominal limits. Objective: Vital Signs Temp Pulse Resp BP Pulse Ox 97.8 F 97 30 H 154/66 H 98 10/09/19 12:00 10/09/19 12:00 10/09/19 12:00 10/09/19 12:00 10/09/19 12:00 Oxygen Flow Rate (L/min) 2 Oxygen Delivery Method Room Air Weight: 186 lb Body Mass Index (BMI) 38.0 Intake and Output for Last 24 Hours 10/07/19 10/08/19 10/09/19 23:59 23:59 23:59 Intake Total 1780 / 1780 Output Total 1100 / 1100 Balance 680 / 680 General: Awake, Alert, Oriented x 3 HEENT: PERRL, EOMI, Sclera Non Icteric Neck: Supple, Good ROM, No Lymph Node Enlargement Lungs: Clear to auscultation Cardiovascular: Regular Rhythm, Normal S1, Normal S2, No Murmurs, No Rubs, No Gallops Vascular: No Carotid Bruits, Normal Femoral Pulses, Normal Radial Pulses, Normal Dorsalis Pedal Pulse, Normal Posterior Tibial Pulses Abdomen: Bowel Sounds Present, Soft, Non Tender, No HSM, No Organomegaly Extremities: No Cyanosis, No Clubbing, No edema Neurological: No Focal Motor or Sensory Deficit 10/08/19 23:40: WBC 12.9 H, RBC 5.22, Hgb 15.6 H, Hct 47.1 H, MCV 90.2, MCH 29.9, MCHC 33.1, Plt Count 234, MPV 10.3, Immature Gran % (Auto) 0.800, Neut % (Auto) 58.6, Lymph % (Auto) 29.7, [place] % (Auto) 7.9, Eos % (Auto) 2.4, Baso % (Auto) 0.6, Absolute Neuts (auto) 7.5, Nucleated RBC % 0 10/08/19 23:40: Sodium 142, Potassium 3.8, Chloride 107, Carbon Dioxide 30.0, Anion Gap 5, BUN 18, Creatinine 1.15 H, Est GFR (MDRD) Af Amer 62, Est GFR (MDRD) Non-Af 52 L, BUN/Creatinine Ratio 15.7, Glucose 130 H, Calcium 9.6, Troponin I < 0.015 10/08/19 23:40: PT 12.8, INR 1.0, APTT 25.9 10/09/19 02:50: WBC 14.2 H, RBC 4.52, Hgb 13.5, Hct 40.9, MCV 90.5, MCH 29.9, MCHC 33.0, Plt Count 200, MPV 10.2, Immature Gran % (Auto) 0.700, Neut % (Auto) 79.9 H, Lymph % (Auto) 13.3 L, [place] % (Auto) 4.7, Eos % (Auto) 1.0, Baso % (Auto) 0.4, Absolute Neuts (auto) 11.3 H, Nucleated RBC % 0 10/09/19 02:50: Sodium Cancelled, Potassium Cancelled, Chloride Cancelled, Carbon Dioxide Cancelled, Anion Gap Cancelled, BUN Cancelled, Creatinine Cancelled, Est GFR (MDRD) Af Amer Cancelled, Est GFR (MDRD) Non-Af Cancelled, BUN/Creatinine Ratio Cancelled, Glucose Cancelled, Calcium Cancelled, Total Bilirubin Cancelled 10/09/19 02:50: Sodium 140, Potassium 4.2, Chloride 108 H, Carbon Dioxide 28.0, Anion Gap 4 L, BUN 16, Creatinine 0.92, Est GFR (MDRD) Af Amer 80, Est GFR (MDRD) Non-Af 66, BUN/Creatinine Ratio 17.3, Glucose 123 H, Calcium 8.7, Total Bilirubin 0.40, Troponin I 0.043 10/09/19 05:45: Troponin I 0.067 H 10/09/19 08:00: Troponin I 0.185 H Rhythm: EKG: ECHO: Moderate concentric LVH, LVEF of 75%, unable to quantitate RVSP. Stress Test: Cardiac Cath: PCI: CT Surgery: Holter monitor: EPS: PPM: CXR: Chest CT Scan: Medical Necessity - Tobacco Use Smoking Status: Current every day smoker Tobacco Use: Secondhand Assessment/Plan 1. Coronary artery disease: The patient presented with stuttering angina over the last several weeks culminating in a acute inferior wall ST elevation myocardial infarction requiring emergent catheterization and angioplasty x3 to her right coronary artery. Her EKG changes are completely resolved, and her peak troponin thus far is 0.185. Her vessel was open with XOCHILT-3 flow upon arrival to the [facility], and her LV function remained normal. I recommend the patient continue her baby aspirin, Brilinta, and verapamil in place of beta-rebecca given her severe LVH, small chamber size, hypertension and tachycardia as well as her severe COPD and reactive airway disease/asthma. In addition she will continue her Cozaar therapy. Cozaar was chosen over lisinopril to avoid dry hacking cough given her pulmonary issues. Patient does not require any additional stress test or PCI as her other vessels have minimal nonobstructive disease. 2. Hyperlipidemia: The patient was initiated on high-dose Lipitor therapy. Pits are pending. Continue Lipitor therapy. 3. The patient may continue ICU today, and plan for discharge tomorrow morning. Code Visit Inpatient E&M: 59374 Subs Hosp L2
--- NOTE | 2019-10-09 15:31 | PCM.PN.BLA ---
Progress Note Patient is scheduled for a post hospital follow-up with Dr. Dior on 10/23/2019 at 1 PM. STROKE Vital Signs/Narrative: Vital Signs Temp Pulse Resp BP BP Pulse Ox 10/09/19 13:00 83 14 90/53 L 96 10/09/19 12:00 97.8 F 96 30 H 154/66 H 154/66 H 97 10/09/19 11:43 82
[2019-10-09 16:20] LABS: Bedside Glucose 96 mg/dL (70-110)
[2019-10-09] MEDS: Atorvastatin Calcium 80 MG Tablet PO (21:14)
[2019-10-09] MEDS: traZODone 50 MG Tablet PO (21:14)
--- NOTE | 2019-10-09 21:34 | NURSING ---
Dr Marrufo is in the ICU at this time, Pt is stating she is not diabetic and asking why we are doing Blood sugars on her, Dr Marrufo said it is ok to stop all Blood sugar checks at this time.
[2019-10-10] VITALS (12 sets, daily range): BP systolic 88–135; BP diastolic 36–56; PULSE 67–91; RESP 15–20; TEMP 36.4–37; O2SAT 94–98
[2019-10-10] MEDS: Benzonatate 100 MG Capsule PO (05:23)
[2019-10-10] MEDS: Albuterol 2.5 MG/3 ML VIAL.NEB. INHALATION (06:53)
[2019-10-10] MEDS: Budesonide Respules 0.5 MG/2 ML AMPUL.NEB. INHALATION (06:53)
--- NOTE | 2019-10-10 08:12 | PCM.DC ---
- Discharge Diagnoses Current Active Problems: Current Active and Chronic Problems (Last Updated 10/09/19 @ 16:11 by Faviola Hayward) Arteriosclerosis of coronary artery in patient with history of myocardial infarction (Chronic) Stented coronary artery (Chronic 10/09/19) Successful PTCA/YUDELKA mid RCA with a 3.5 x 28 Promus Synergy, followed immediately upstream with a 3.5 x 24 Promus Synergy, all post dilated throughout with a 4.0 x 12 NC balloon, followed focally with a 4.5 x 8 NC balloon; 85%-->0%, no dissection. Care was taken not to stent into the open area of the ectatic portion of the RCA. Successful PTCA/YUDELKA RPL branch with a 2.25 x 16 Promus Synergy stent; 75%-->0%, no dissection. You will use the following diet at home:: Calorie/Carbohydrate Controlled (specify 1200, 1400, etc) Allergies/Adverse Reactions: Allergies amoxicillin trihydrate [From Augmentin] Allergy (Verified 10/08/19 23:28) Hives potassium clavulanate [From Augmentin] Allergy (Verified 10/08/19 23:28) Hives Medications to take at Discharge Albuterol Sulfate [Ventolin Hfa] 2 puff INHALATION PRN PRN 03/04/14 Mometasone/Formoterol [Dulera 200 Mcg/5 Mcg Inhaler] 2 inhaler INHALATION BID 10/15/17 Benzonatate [Tessalon Perle] 100 mg PO TID 02/13/18 Montelukast [Singulair] 10 mg PO DAILY 02/13/18 Trospium Chloride [Sanctura Xr] 60 mg PO DAILY 02/13/18 traZODone [Desyrel] 50 mg PO QHS 02/13/18 Aspirin E.C. [Ecotrin] 81 mg PO DAILY@0800 #90 tab 10/10/19 Atorvastatin Calcium [Lipitor] 80 mg PO QHS #90 tab 10/10/19 Losartan Potassium [Cozaar] 25 mg PO DAILY #90 tab 10/10/19 Nicotine [Nicoderm Cq] 21 mg TRANSDERM. DAILY #30 patch 10/10/19 Ticagrelor [Brilinta] 90 mg PO BID #180 tab 10/10/19 Verapamil HCl [Verapamil ER] 0 mg PO DAILY #90 cap24h.pel 10/10/19 The following prescriptions were given: Ticagrelor [Brilinta] 90 mg PO BID #180 tab Transmission Status: Sent to [facility] Losartan Potassium [Cozaar] 25 mg PO DAILY #90 tab Transmission Status: Sent to [facility] Aspirin E.C. [Ecotrin] 81 mg PO DAILY@0800 #90 tab Transmission Status: Sent to [facility] Atorvastatin Calcium [Lipitor] 80 mg PO QHS #90 tab Transmission Status: Sent to [facility] Nicotine [Nicoderm Cq] 21 mg TRANSDERM. DAILY #30 patch Transmission Status: Pending to [facility] Verapamil HCl [Verapamil ER] 0 mg PO DAILY #90 cap24h.pel Transmission Status: Pending to [facility] Orders to be completed after discharge: Phase II, Outpatient Cardiac Rehab Location: None Selected Primary Care Physician: Lulú Camacho MD [Primary Care Provider] - Please follow up with your Primary Care Physician in: in 5-7 days Test Results: Test results from this visit will be discussed in further detail at your follow-up appointment, if applicable. Please Follow Up With: Jose Francisco Dior MD When: 10/23/2019 @ 1pm Proposed Discharge Date: 10/10/19
--- NOTE | 2019-10-10 08:20 | DS.PCM_ITS ---
Discharge Date and Diagnosis Date of Admission: 10/08/19 Date of Discharge: 10/10/19 - Primary Discharge Diagnosis Acute ST segment elevation OK - Secondary Discharge Diagnosis Chronic Problems (Last Updated 10/09/19 @ 16:11 by Faviola Hayward) Arteriosclerosis of coronary artery in patient with history of myocardial infarction (Chronic) Stented coronary artery (Chronic 10/09/19) Successful PTCA/YUDELKA mid RCA with a 3.5 x 28 Promus Synergy, followed immediat mathew upstream with a 3.5 x 24 Promus Synergy, all post dilated throughout with a 4.0 x 12 NC balloon, followed focally with a 4.5 x 8 NC balloon; 85%-->0%, no dissection. Care was taken not to stent into the open area of the ectatic portion of the RCA. Successful PTCA/YUDELKA RPL branch with a 2.25 x 16 Promus Synergy stent; 75%-->0%, no dissection. Hospital Course and Treatment Summary of Care Provided: Patient is a 58-year-old lady who presented with a 2 history of chest pain radiating to the neck EKG obtained in the ED was consistent with acute inferior ST segment elevation OK patient underwent emergency left heart catheterization she was found to have a single-vessel coronary artery disease 75% lesion in the RCA for which he underwent successful PTCA/YUDELKA 1. Acute ST segment elevation OK involving inferior wall ?Patient noted to the intensive care unit, started on guideline directed therapy, underwent emergency left heart catheterization she was found to have a single-vessel coronary artery disease 75% lesion in the RCA for which he underwent successful PTCA/YUDELKA ?10/10/2019 patient was discharged home on recommended medications including aspirin, Brilinta, losartan, atorvastatin. Patient was not discharged home on beta-blockers per recommendations from cardiology instead verapamil was used with concerns because of her severe COPD. 2. COPD ?Patient did experience recent exacerbation treated with steroid antibiotics as well as antitussives 3. Tobacco dependence ?Counseled on cessation, offered nicotine patch for tobacco cravings 4. 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 DVT prophylaxis ~patient did receive full dose heparin for her OK Objective: GENERAL: cooperative HEENT: Atraumatic; EYES; Anicteric, Normal Conjunctiva NECK; supple, normal thyroid, RESPIRATORY: Diminished to auscultation CARDIOVASCULAR: Regular S1 S2, GI: soft, normoactive bowel sounds, : No Renal angle tenderness; EXTREMITIES: No edema, no clubbing, MUSCULOSKELETAL: no muscle waisting NEURO: Awake; no lateralizing signs. SKIN: No Rash PSYCH; Flat affect - Physical Exam Vitals/I&O's: Vital Signs Temp Pulse Resp BP Pulse Ox 97.6 F L 88 16 118/43 L 98 10/10/19 04:00 10/10/19 07:12 10/10/19 07:00 10/10/19 07:00 10/10/19 07:00 Oxygen Flow Rate (L/min) 2 Oxygen Delivery Method Room Air Weight: 87.7 kg Body Mass Index (BMI) 38.0 Intake and Output for Last 24 Hours 10/08/19 10/09/19 10/10/19 23:59 23:59 23:59 Intake Total 2505 / 2505 222 / 222 Output Total 1100 / 1100 Balance 1405 / 1405 222 / 222 Laboratory Results 10/09/19 08:00: Troponin I 0.185 H 10/09/19 11:58: POC Glucose 106 10/09/19 16:16: POC Glucose 96 Current Medications Acetaminophen (Tylenol) 650 mg PO Q6H PRN PRN PRN Reason: Pain Score 1-10/Temp > 100.7 F Albuterol Sulfate (Ventolin Aerosols) 2.5 mg INHALATION Q2H PRN PRN Reason: SOB/WHEEZING Albuterol Sulfate (Ventolin Aerosols) 2.5 mg INHALATION Q6HWA.RT [facility] Last Admin: 10/10/19 06:53 Dose: 2.5 mg Documented by: Aspirin (Ecotrin) 81 mg PO DAILY@0800 [facility] Last Admin: 10/09/19 08:09 Dose: 81 mg Documented by: Atorvastatin Calcium (Lipitor) 80 mg PO QHS [facility] Last Admin: 10/09/19 21:14 Dose: 80 mg Documented by: Atropine Sulfate () 0.5 mg IV UD PRN PRN Reason: HR <50 bpm Benzonatate (Tessalon Perle) 100 mg PO TID [facility] Last Admin: 10/10/19 05:23 Dose: 100 mg Documented by: Budesonide (Pulmicort Aerosol) 0.5 mg INHALATION Q12H.RT [facility] Last Admin: 10/10/19 06:53 Dose: 0.5 mg Documented by: Diazepam (Valium) 5 mg PO Q6H PRN PRN PRN Reason: BACK SPASMS/ANXIETY Glucagon () 1 mg IM .X1 PRN PRN Reason: Hypoglycemia Heparin Sodium (Beef Lung) (Heparin 500 Unit/5 Ml (100/Ml)) 500 unit IV UD PRN PRN Reason: HEPARIN FLUSH Dextrose (Dextrose 10%-Water) 250 mls @ 999 mls/hr IV .Q16M PRN; Protocol PRN Reason: HYPOGLYCEMIA Losartan Potassium (Cozaar) 25 mg PO DAILY [facility] Last Admin: 10/09/19 08:10 Dose: 25 mg Documented by: Metoclopramide HCl (Reglan) 5 mg IV Q6H PRN PRN PRN Reason: NAUSEA/VOMITING Montelukast Sodium (Singulair) 10 mg PO DAILY [facility] Last Admin: 10/09/19 08:11 Dose: 10 mg Documented by: Morphine Sulfate () 2 - 4 mg IV Q4H PRN PRN PRN Reason: Pain Score 1-10/10 Nicotine (Nicoderm Cq (Pbkc)) 21 mg TRANSDERM. DAILY [facility] Last Admin: 10/09/19 08:10 Dose: 21 mg Documented by: Nitroglycerin (Nitrostat) 0.4 mg SUBLINGUAL Q5M PRN PRN Reason: CARDIAC/CHEST PAIN Ondansetron HCl (Zofran) 4 mg IV Q8H PRN PRN PRN Reason: NAUSEA/VOMITING Sodium Chloride () 500 ml IV BOLUS PRN PRN Reason: VASO-VAGAL PROTOCOL Sodium Chloride () 10 - 40 ml IV UD PRN PRN Reason: SALINE FLUSH Ticagrelor (Brilinta) 90 mg PO BID [facility] Last Admin: 10/09/19 21:14 Dose: 90 mg Documented by: Tolterodine Tartrate (Detrol La) 4 mg PO DAILY [facility] Last Admin: 10/09/19 08:10 Dose: 4 mg Documented by: Trazodone HCl (Desyrel) 50 mg PO QHS [facility] Last Admin: 10/09/19 21:14 Dose: 50 mg Documented by: Verapamil HCl (Calan Sr) 120 mg PO DAILY [facility] Last Admin: 10/09/19 08:09 Dose: 120 mg Documented by: Discharge Diet: Low fat/ Low Cholesterol Discharge Activity: Return to Normal Activity Home Medications: Medications to take at Discharge Albuterol Sulfate [Ventolin Hfa] 2 puff INHALATION PRN PRN 03/04/14 Mometasone/Formoterol [Dulera 200 Mcg/5 Mcg Inhaler] 2 inhaler INHALATION BID 10/15/17 Benzonatate [Tessalon Perle] 100 mg PO TID 02/13/18 Montelukast [Singulair] 10 mg PO DAILY 02/13/18 Trospium Chloride [Sanctura Xr] 60 mg PO DAILY 02/13/18 traZODone [Desyrel] 50 mg PO QHS 02/13/18 Aspirin E.C. [Ecotrin] 81 mg PO DAILY@0800 #90 tab 10/10/19 Atorvastatin Calcium [Lipitor] 80 mg PO QHS #90 tab 10/10/19 Losartan Potassium [Cozaar] 25 mg PO DAILY #90 tab 10/10/19 Nicotine [Nicoderm Cq] 21 mg TRANSDERM. DAILY #30 patch 10/10/19 Ticagrelor [Brilinta] 90 mg PO BID #180 tab 10/10/19 Verapamil HCl [Verapamil ER] 0 mg PO DAILY #90 cap24h.pel 10/10/19 Following Prescrptions Were Given to Patient: Ticagrelor [Brilinta] 90 mg PO BID #180 tab Transmission Status: Received by [facility] Losartan Potassium [Cozaar] 25 mg PO DAILY #90 tab Transmission Status: Received by [facility] Aspirin E.C. [Ecotrin] 81 mg PO DAILY@0800 #90 tab Transmission Status: Received by [facility] Atorvastatin Calcium [Lipitor] 80 mg PO QHS #90 tab Transmission Status: Received by [facility] Nicotine [Nicoderm Cq] 21 mg TRANSDERM. DAILY #30 patch Transmission Status: Received by [facility] Verapamil HCl [Verapamil ER] 0 mg PO DAILY #90 cap24h.pel Transmission Status: Received by [facility] Other Amb Orders: Phase II, Outpatient Cardiac Rehab Location: None Selected Primary Care Physician: Lulú Camacho MD [Primary Care Provider] - Please follow up with your Primary Care Physician in: in 5-7 days Please Follow Up With: Jose Francisco Dior MD When: 10/23/2019 @ 1pm Disposition: Home Minutes spent on discharge:: 35 Patient Condition:: Stable Medical Necessity - Tobacco Use Smoking Status: Current every day smoker Tobacco Use: Secondhand Meaningful Use Info Meaningful Use Diagnoses (Choose all that apply): AMI - AMI Aspirin given w/in 24hrs of arrival?: Yes ASA at discharge?: Yes Statins at discharge?: Yes Flavio/ARB at discharge?: Yes Beta Marybeth at discharge?: No Reason Beta Marybeth not ordered:: Drug Interaction - Cardiology recommended verapamil instead because of patient's severe COPD Done w/ Acute OK measure.: Yes Documented LVEF (%): 75 Code Visit Inpatient E&M: 76691 Disch Hosp
[2019-10-10] MEDS: TICAGRELOR 90 MG TABLET PO (08:28)
[2019-10-10] MEDS: Aspirin E.C. 81 MG Tablet PO (08:28)
[2019-10-10] MEDS: Losartan Potassium 25 MG Tablet PO (08:28)
[2019-10-10] MEDS: Verapamil SR 240 MG Tablet 120 MG PO (08:28)
[2019-10-10] MEDS: Montelukast 10 MG Tablet PO (08:29)
[2019-10-10] MEDS: Tolterodine Tartrate 4 MG CAP.SA PO (08:29)
--- NOTE | 2019-10-10 08:55 | PN.CARD_ITS ---
Subjectve: Patient seen and examined, doing fairly well. No 24-hour events. Telemetry negative. No chest pain. Right groin is clean/dry/intact without evidence of thrills, bruits or hematoma. Objective: Vital Signs Temp Pulse Resp BP Pulse Ox 97.6 F L 88 16 118/43 L 98 10/10/19 04:00 10/10/19 07:12 10/10/19 07:00 10/10/19 07:00 10/10/19 07:00 Oxygen Flow Rate (L/min) 2 Oxygen Delivery Method Room Air Weight: 193 lb 5.526 oz Body Mass Index (BMI) 38.0 Intake and Output for Last 24 Hours 10/08/19 10/09/19 10/10/19 23:59 23:59 23:59 Intake Total 2505 / 2505 222 / 222 Output Total 1100 / 1100 Balance 1405 / 1405 222 / 222 General: Awake, Alert, Oriented x 3 HEENT: PERRL, EOMI, Sclera Non Icteric Neck: Supple, Good ROM, No Lymph Node Enlargement Lungs: Clear to auscultation Cardiovascular: Regular Rhythm, Normal S1, Normal S2, No Murmurs, No Rubs, No Gallops Vascular: No Carotid Bruits, Normal Femoral Pulses, Normal Radial Pulses, Normal Dorsalis Pedal Pulse, Normal Posterior Tibial Pulses Abdomen: Bowel Sounds Present, Soft, Non Tender, No HSM, No Organomegaly Extremities: No Cyanosis, No Clubbing, No edema Neurological: No Focal Motor or Sensory Deficit Rhythm: EKG: ECHO: Stress Test: Cardiac Cath: PCI: CT Surgery: Holter monitor: EPS: PPM: CXR: Chest CT Scan: Medical Necessity - Tobacco Use Smoking Status: Current every day smoker Tobacco Use: Secondhand Assessment/Plan 1. Coronary artery disease: The patient presented with stuttering angina over the last several weeks culminating in a acute inferior wall ST elevation myocardial infarction requiring emergent catheterization and angioplasty x3 to her right coronary artery. Her EKG changes are completely resolved, and her peak troponin thus far is 0.185. Her vessel was open with XOCHILT-3 flow upon arrival to the [facility], and her LV function remained normal. I recommend the patient continue her baby aspirin, Brilinta, and verapamil in place of beta-rebecca given her severe LVH, small chamber size, hypertension and tachycardia as well as her severe COPD and reactive airway disease/asthma. In addition she will continue her Cozaar therapy. Cozaar was chosen over lisinopril to avoid dry hacking cough given her pulmonary issues. Patient does not require any additional stress test or PCI as her other vessels have minimal nonobstructive disease. I do long and thorough discussion with the patient regarding tobacco cessation, and she agrees that she needs to quit smoking. She is going to continue her Ch antix, and her nicotine patch. 2. Hyperlipidemia: The patient was initiated on high-dose Lipitor therapy. Repeat lipid profile in 6 weeks time. 3. Patient will be discharged home and follow-up with Dr. Dior going forward. Code Visit Inpatient E&M: 34138 Subs Hosp L2
--- NOTE | 2019-10-13 13:59 | CASEMGMT ---
LILI CM DC PHONE CALL DC DATE: 10.10.2019 DC Disposition: Home Diagnosis on Discharge: NSTEMI LACE/STRATA: 07/10 Cell phone # was not correct. No other phone # listed. Miko EDWEYN RN ACM
== END 2019-10-10 09:25 | disposition home or self-care (01) | DRG 174 ==
LOC: ED 23:48 → ICU 10-09 06:16
PROVIDERS: Admitting Provider Hospitalist; Emergency Provider Emergency Medicine; Family Provider Internal Medicine; PCP Internal Medicine; Referring Provider Internal Medicine Cardiovascular Disease; Visit Provider Internal Medicine
DX: I21.19 ST elevation (STEMI) myocardial infarction involving other coronary artery of inferior wall (principal); F17.210 Nicotine dependence, cigarettes, uncomplicated; I25.118 Atherosclerotic heart disease of native coronary artery with other forms of angina pectoris; J44.9 Chronic obstructive pulmonary disease, unspecified; E66.01 Morbid (severe) obesity due to excess calories; E78.5 Hyperlipidemia, unspecified; F12.10 Cannabis abuse, uncomplicated; Z68.38 Body mass index [BMI] 38.0-38.9, adult
CPT/HCPCS: 71045; 80048; 80053; 82962; 84484; 84703; 85025; 85347; 85610; 85730; 92929; 92941; 93005; 93306; 93458; 94640; 97802; 99285; C1760; J7030; J7040; Q9957; Q9967; A4216; C1725; C1769; C1874; C1887; C8929; C9601; C9606

== ENCOUNTER 2020-08-27 11:43 | Emergency (ER) | payer MEDICAID, SELFPAY ==
[2019-10-09 10:27] VITALS: BMI 36.3
[2019-10-23 13:00] VITALS: BMI 36.1
[2020-08-27 11:44] VITALS: BP 151/80; PULSE 88; RESP 16; TEMP 36.3; O2SAT 98; BMI 37.8
[2020-08-27 12:35] LABS: Anion Gap 5 (5-15); BUN 13 mg/dL (7-18); BUN/Creat Ratio 15.6 RATIO (10-20); Calcium,Total 8.8 mg/dL (8.5-10.1); Chloride 104 mmol/L (98-107); Creatinine, Serum 0.83 mg/dL (0.55-1.02); EST Glomerular Filtration Rate 75 mL/min (>60); Est Glom Filt Rate - Afr Amer 90 mL/min (>60); Estimated Creatinine Clearance 53.07 ml/min; Glucose 85 mg/dL (74-106); Potassium 2.6 mmol/L (3.5-5.1); Sodium Level 142 mmol/L (136-145)
--- NOTE | 2020-08-27 12:42 | EKG12_ITS ---
Test Reason : SOB Blood Pressure : / mmHG Vent. Rate : 078 BPM Atrial Rate : 078 BPM P-R Int : 136 ms QRS Dur : 088 ms QT Int : 380 ms P-R-T Axes : 064 089 029 degrees QTc Int : 433 ms Normal sinus rhythm Normal ECG Confirmed by WES MATHUR, NELIA ([id number]), editor greeting card CYNDI MIDDLETON ([id number]) on 08/30/2020 9:47:09 AM Referred By: ALTHEA/JACINTA Confirmed By:NELIA HARVEY MD
--- NOTE | 2020-08-27 12:53 | ED.VIS.GEN ---
History of Present Illness Chief Complaint: Abn Labs Informant: Patient Narrative: 59-year-old female presents the emergency department after being told she had low potassium. She tells me that today Dr. Gross told her she had lung cancer stage IV. Blood work that was faxed to us shows a potassium of 2.4. She denies any muscle spasms or fatigue. No heart palpitations. She states she is not experiencing any diarrhea. She is not on a diuretic. She is not had problems with potassium or magnesium in the past. - Past Medical History (1) Arteriosclerosis of coronary artery in patient with history of myocardial infarction Status: Chronic Past Medical History - Allergies and Home Meds Allergies/Adverse Reactions: Allergies Penicillins Allergy (Intermediate, Verified 08/27/20 11:44) Hives amoxicillin trihydrate [From Augmentin] Allergy (Verified 08/27/20 11:44) Hives potassium clavulanate [From Augmentin] Allergy (Verified 08/27/20 11:44) Hives Primary Care Physician: Lulú Camacho MD [Primary Care Provider] - (in 5 days for potassium recheck) Past Medical History: - - Stage IV lung cancer Surgical History: cholecystectomy, hysterectomy Smoking Status: Light Smoker (<10/day) Drugs: None - Family History Paternal Family History: Family History (Last Reviewed 07/05/20 @ 15:[address] Kunal Renee MD) Brother Cancer Family History: Reports: - - Patient does not know her maternal or paternal medical history Maternal Family History: Family History (Last Reviewed 07/05/20 @ 15:[address] Kunal Renee MD) Brother Cancer Family History: Reports: - - Patient does not know her maternal or paternal medical history Review of Systems General: Denies: Chills, Fever, Sweats Eyes: Denies: Visual changes - bilaterally, Diplopia ENT: Denies: Rhinorrhea, Sore throat Cardiovascular: Denies: Chest pain, Palpitations Respiratory: Denies: Dyspnea, Cough, Dyspnea on exertion Gastrointestinal: Denies: Abdominal pain, Nausea, Vomiting, Diarrhea, Melena, Hematochezia Genitourinary: Denies: Dysuria, Hematuria, Frequency Musculoskeletal: Reports: Extremity Pain - Right hip pain. Denies: Back pain Skin: Denies: Rash, Wounds Neurological: Denies: Headache, Weakness, Numbness Physical Exam Vital Signs/Narrative: Vital Signs Temp Pulse Resp BP Pulse Ox 08/27/20 11:44 97.3 F L 88 16 151/80 H 98 Inital Vital Signs reviewed: Yes General: Well nourished, Well developed, No Acute Distress Head: Normocephalic, Atraumatic Eyes: Perrl, EOMI ENT: Moist mucous membranes, No rhinorrhea Neck: Supple, Nontender Cardiovascular: Regular rate, Regular rhythm, No murmurs Respiratory: No distress, CTA bilaterally, Chest nontender Abdomen: Soft, Nontender, Nondistended, Normal bowel sounds Back: Nontender, Normal Inspection Extremities: Nontender, No edema Skin: Normal color, No rash Neurological: Alert, Oriented x3, Cranial nerves II-XII grossly intact, Normal Strength, Normal Sensation Psychological: Normal affect, Normal Mood Diagnostic/Tx/Re-eval Laboratory Last Values Sodium 142 mmol/L (136-145) 08/27/20 11:50 Potassium 2.6 mmol/L (3.5-5.1) L* 08/27/20 11:50 Chloride 104 mmol/L (98-107) 08/27/20 11:50 Carbon Dioxide 33.0 mmol/L (21.0-32.0) H 08/27/20 11:50 Anion Gap 5 (5-15) 08/27/20 11:50 BUN 13 mg/dL (7-18) 08/27/20 11:50 Creatinine 0.83 mg/dL (0.55-1.02) 08/27/20 11:50 Estim Creat Clear Calc 53.07 ml/min 08/27/20 11:50 Est GFR (MDRD) Af Amer 90 mL/min (>60) 08/27/20 11:50 Est GFR (MDRD) Non-Af 75 mL/min (>60) 08/27/20 11:50 BUN/Creatinine Ratio 15.6 RATIO (10-20) 08/27/20 11:50 Glucose 85 mg/dL (74-106) 08/27/20 11:50 Calcium 8.8 mg/dL (8.5-10.1) 08/27/20 11:50 Magnesium 2.2 mg/dL (1.6-2.6) 08/27/20 11:50 - Medical Decision Making Potassium 2.6. EKG shows no significant hypokalemic changes. She received oral potassium. I was under the impression that she had received her IV potassium because her IV was hep-locked. When nursing went to hang it after had already done my exit interview the patient told them that this was expletive expletive. He does not wish to stay for IV potassium. She will sign out AMA. Plan will be to provide potassium supplementation over the next 5 days and have her rechecked. ED Disposition - Plan for ED Patient: Disposition: Against Medical Advice Diagnosis: Hypokalemia Instructions: ED Potassium Deficiency Prescriptions: Potassium Chloride [K-Dur] 40 meq PO DAILY #10 tab Prescription Printed Referrals: Lulú Camacho MD [Primary Care Provider] - (in 5 days for potassium recheck)
[2020-08-27 13:58] LABS: Magnesium 2.2 mg/dL (1.6-2.6)
--- NOTE | 2020-08-27 14:24 | ED.RN ---
THIS NURSE IN THE ROOM TO HANG THE IV POTASSIUM. PT STATES THIS IS FUCKING BULLSHIT. THAT DOCTOR SAID I COULD LEAVE. THIS NURSE SPOKE WITH DR OH ABOUT THE IV POTASSIUM. DR OH WAS UNDER THE IMPRESSION THAT THE IV POTASSIUM WAS ALREADY DONE WHEN HE TOLD THE PT SHE COULD LEAVE. THIS NURSE IN TO SPEAK WITH THE PT. PT STATES I'M NOT TAKING IT. I REFUSE. I HAVE BEEN HERE FOR 2 HOURS. I'M LEAVING. THIS NURSE INFORMED DR OH OF THE REFUSAL. AMA PAPERWORK SIGNED BY DR OH, THE PT, AND MYSELF. THIS NURSE CONFIRMED WITH THE PT THE DANGERS OF LEAVING. THE PT STATES I JUST WANT TO LEAVE. I WILL TAKE THE PILLS AND GET SOME BANANAS. COPY OF THE AMA PAPERWORK GIVEN TO THE PATIENT. IV D/C. IV CATHETER INTACT. WHILE THIS NURSE WAS REMOVING THE IV, THE PT WAS ON THE PHONE WITH A DOCTOR'S OFFICE. PT REFUSED TO HAVE VITALS UPDATED. INSTRUCTIONS REVIEWED WITH THE PT. PT DENIES FURTHER NEEDS OR QUESTIONS AT THIS TIME.
== END 2020-08-27 14:31 | disposition left against medical advice (07) ==
PROVIDERS: Emergency Provider Emergency Medicine; PCP Internal Medicine
DX: E87.6 Hypokalemia (principal); C34.90 Malignant neoplasm of unspecified part of unspecified bronchus or lung; I25.10 Atherosclerotic heart disease of native coronary artery without angina pectoris; I25.2 Old myocardial infarction; Z88.0 Allergy status to penicillin; Z88.1 Allergy status to other antibiotic agents; Z90.49 Acquired absence of other specified parts of digestive tract; Z90.710 Acquired absence of both cervix and uterus
CPT/HCPCS: 80048; 83735; 93005; 96360; 99283; J7030; A4216

== ENCOUNTER 2021-04-13 16:02 | Emergency (ER) | payer MEDICAID, SELFPAY ==
[2019-10-09 10:27] VITALS: BMI 36.3
[2021-01-11 11:10] VITALS: BMI 36.1
[2021-04-13 16:02] VITALS: BP 138/71; PULSE 73; RESP 18; TEMP 36.4; O2SAT 96; BMI 36.3
--- NOTE | 2021-04-13 16:28 | EKG12_ITS ---
Test Reason : Blood Pressure : / mmHG Vent. Rate : 066 BPM Atrial Rate : 066 BPM P-R Int : 190 ms QRS Dur : 080 ms QT Int : 392 ms P-R-T Axes : 067 094 074 degrees QTc Int : 410 ms Normal sinus rhythm Low voltage QRS Borderline ECG Confirmed by WES MATHUR, NELIA ([id number]), market editor CYNDI MIDDLETON ([id number]) on 04/18/2021 12:54:19 PM Referred By: ANA PAULA Confirmed By:NELIA HARVEY MD
[2021-04-13 16:53] LABS: Absolute Lymphocyte Count 1.37 X10^3/uL (0.83-4.51); Absolute Neutrophil Count 4.6 X10^3/uL (2.0-7.7); Basophil# 0.06 X10^3/uL; Basophil% 0.9 % (0-1); Eosinophils% 1.5 % (0-5); Hematocrit 41.2 % (37-47); Hemoglobin 12.9 g/dL (12.0-15.0); Lymphocyte # 1.37 X10^3/ul (0.83-4.51); Lymphocyte % 20.6 % (19-41); Mean Corp Hgb Conc 31.3 g/dL (32-36); Mean Corpuscular Hgb 27.3 pg (27.0-32.0); Mean Corpuscular Volume 87.1 fL (81-99); Mean Platelet Vol. 10.1 fl (6.2-12.0); Monocyte# 0.51 X10^3/uL; Monocyte% 7.7 % (0-10); NRBC Flagged by Analyzer 0 % (0-5); Neutrophil # 4.59 X10^3/uL (2.7-7.7); Platelet Count 166 K/mm3 (150-450); RBC Distribution Width CV 15.9 % (11.6-14.6); RBC Distribution Width SD 51.2 fl (35.1-43.9); Red Blood Count 4.73 M/mm3 (4.2-5.4); White Blood Count 6.7 K/mm3 (4.4-11.0)
[2021-04-13 16:56] VITALS: BP 122/74; PULSE 68; RESP 16; O2SAT 97; O2SAT 98
[2021-04-13] MEDS: Aspirin 81 MG TAB.CHEW 324 MG PO (16:57)
--- NOTE | 2021-04-13 17:07 | RAD_ITS ---
STUDY: X-RAY CHEST REASON FOR EXAM: Female, 60 years old. chest pain TECHNIQUE: Single AP portable view of the chest. COMPARISON: October 08, 2019 FINDINGS: The lungs are clear and expanded. There is no demonstrated pleural abnormality. Normal size heart. Normal mediastinum and valeri. Normal visualized pulmonary arteries. There is atherosclerotic calcification of the aortic arch with tortuosity. Stable visualized osseous structures. There is no demonstrated abnormality of the visualized soft tissue structures of the upper abdomen. RAD/Chest 1 View (Portable) IMPRESSION: No acute process Electronically Signed: Bj Rocha MD at 17:33 EDT , Service support ,
[2021-04-13 17:09] LABS: Anion Gap 5 (5-15); BUN 9 mg/dL (7-18); BUN/Creat Ratio 9.2 RATIO (10-20); Calcium,Total 8.4 mg/dL (8.5-10.1); Chloride 108 mmol/L (98-107); Creatinine, Serum 0.98 mg/dL (0.55-1.02); EST Glomerular Filtration Rate 62 mL/min (>60); Est Glom Filt Rate - Afr Amer 75 mL/min (>60); Glucose 97 mg/dL (74-106); Potassium 4.1 mmol/L (3.5-5.1); Sodium Level 138 mmol/L (136-145); Troponin-I HS 7.6 pg/mL (3.0-53.7)
--- NOTE | 2021-04-13 17:14 | EX.ED.DYSGE1 ---
HPI History of Present Illness Chief Complaint: Constipation Narrative Narrative: Chief complaints is constipation. Patient is denying this complaint. Her chief complaint is left-sided chest pain that is worse with movement but not pleuritic. This started a few days ago. No history of trauma. No fever chills cough or congestion. No back pain or tearing sensation. No lower extremity edema or calf pain. No DVT or PE risk factors. [facility] Medical History (Updated 04/13/21 @ 18:[address] Telly Molina MD) Arteriosclerosis of coronary artery in patient with history of myocardial infarction Asthma COPD (chronic obstructive pulmonary disease) Hypertension Metastatic lung carcinoma Myocardial infarct Tobacco abuse Home Medications albuterol sulfate 2 puff INHALATION PRN PRN 03/04/14 [History Last Taken 02/17/15 18:30 2 PUFF] acetaminophen 300 mg-codeine 30 mg tablet ea PO 07/05/20 [History Last Taken Unknown] cetirizine 10 mg tablet tab PO 07/05/20 [History Last Taken Unknown] cyclobenzaprine 10 mg tablet ea PO 07/05/20 [History Last Taken Unknown] dicyclomine 10 mg capsule 10 mg PO BID PRN 07/05/20 [History Last Taken Unknown] fluticasone propionate 50 mcg/actuation nasal spray,suspension 2 spray INTRANASAL DAILY PRN 07/05/20 [History Last Taken Unknown] glycopyrrolate 9 mcg-formoterol 4.8 mcg HFA aerosol inhaler 2 puff INHALATION BID 07/05/20 [History Last Taken Unknown] polyethylene glycol 3350 17 gram/dose oral powder 17 g PO DAILY PRN 07/05/20 [History Last Taken Unknown] rizatriptan 10 mg tablet ea PO 07/05/20 [History Last Taken Unknown] ropinirole 0.25 mg tablet tab PO 07/05/20 [History Last Taken Unknown] simethicone 80 mg chewable tablet 80 mg PO 4-6XD PRN 07/05/20 [History Last Taken Unknown] topiramate 50 mg tablet tab PO 07/05/20 [History Last Taken Unknown] trazodone 50 mg tablet 50 mg PO QHS PRN 07/05/20 [History Last Taken Unknown] varenicline 1 mg tablet 1 mg PO BID 07/05/20 [History Last Taken Unknown] potassium chloride 40 meq PO DAILY #10 tab 08/27/20 [Rx Last Taken Unknown] rosuvastatin 10 mg tablet 10 mg PO DAILY #1 tab 10/25/20 [Rx Last Taken Unknown] aspirin 81 mg tablet,delayed release 81 mg PO DAILY@0800 #90 tab 01/11/21 [Rx Last Taken Unknown] lisinopril 5 mg tablet 5 mg PO DAILY #90 tab 01/11/21 [Rx Last Taken Unknown] pembrolizumab 25 mg/mL intravenous solution mg .ROUTE .q3wks ml 01/11/21 [History Last Taken Unknown] verapamil 120 mg 24 hr capsule,extended release 120 mg PO DAILY #90 cap 01/11/21 [Rx Last Taken Unknown] Allergy/AdvReac Type Severity Reaction Status Date / Time Penicillins Allergy Intermediate Hives Verified 04/13/21 16:04 amoxicillin trihydrate Allergy Hives Verified 04/13/21 16:04 [From Augmentin] potassium clavulanate Allergy Hives Verified 04/13/21 16:04 [From Augmentin] Family History Brother Cancer lung Surgical History (Updated 08/27/20 @ 12:[address] Jose Francisco Montenegro, DO) History of appendectomy History of carpal tunnel release of both wrists History of cholecystectomy History of hysterectomy Stented coronary artery (10/09/19) Social History (Updated 01/11/21 @ 12:55 by Therese JERNIGAN, PA) Smoking Status: Light Smoker (<10/day) quit status: quit date established alcohol intake: never substance use type: marijuana caffeine: No ROS ROS ED ROS Narrative Past medical history: Reviewed Medications: Reviewed Social history: Noncontributory Review of systems: All systems negative except as indicated General: No fever Eyes: No visual changes ENT: No upper airway congestion, normal voice Neck: No neck pain Cardiovascular: Chest pain as in HPI Respiratory: No shortness of breath or cough Gastrointestinal: No abdominal pain, nausea vomiting or diarrhea Genitourinary: No dysuria Musculoskeletal: Denies myalgias no difficulty with ambulation Skin: No rash Neurological: No memory loss, confusion or any focal weakness Psych: No recent behavioral changes Hematologic: No easy bleeding or easy bruising EXAM Physical Exam Narrative Exam Narrative: Physical exam General: Well nourished, Well developed, No Acute Distress Head: Normocephalic, Atraumatic Eyes: Conjunctiva not pale ENT: Moist mucous membranes Neck: Supple, Nontender, No lymphadenopathy Cardiovascular: Regular rate, Regular rhythm Chest wall: There is obvious reproducible chest wall pain to palpation in the left side under her breast. I can also reproduce it when I twist her. Respiratory: No distress, CTA bilaterally Abdomen: Soft, Nontender, Nondistended Back: Nontender, Normal Inspection. Negative for: CVA tenderness Extremities: Nontender, No edema Skin: Normal color, No rash Neurological: Alert, Normal Strength, Normal Sensation Psychological: Normal affect Const Vital Signs: 04/13/21 16:02 04/13/21 16:56 04/13/21 16:58 Temperature 97.5 F L Temperature Source Temporal Pulse Rate 73 68 Respiratory Rate 18 16 Respiratory Effort Normal Respiratory Pattern Normal Blood Pressure 138/71 H 122/74 H Blood Pressure Mean 93 90 Pulse Ox 96 97 Oxygen Delivery Method Room Air Room Air 04/13/21 18:02 Temperature Temperature Source Pulse Rate 68 Respiratory Rate 13 Respiratory Effort Respiratory Pattern Blood Pressure 142/53 H Blood Pressure Mean 82 Pulse Ox 97 Oxygen Delivery Method Room Air MDM MDM MDM Narrative Medical decision making narrative: Patient has a normal ED work-up. She has reproducible chest wall pain. She appears well, I do not believe we need further testing today. I will discharge her with reassurance. Lab Data Labs: Laboratory Results - last 24 hr 04/13/21 04/13/21 16:44 16:44 WBC 6.7 RBC 4.73 Hgb 12.9 Hct 41.2 MCV 87.1 MCH 27.3 MCHC 31.3 L RDW Std Deviation 51.2 H RDW Coeff of Keven 15.9 H Plt Count 166 MPV 10.1 Immature Gran % (Auto) 0.300 Neut % (Auto) 69.0 Lymph % (Auto) 20.6 Owsley % (Auto) 7.7 Eos % (Auto) 1.5 Baso % (Auto) 0.9 Absolute Neuts (auto) 4.6 Absolute Lymphs (auto) 1.37 Nucleated RBC % 0 Sodium 138 Potassium 4.1 Chloride 108 H Carbon Dioxide 25.0 Anion Gap 5 BUN 9 Creatinine 0.98 Estim Creat Clear Calc 44.40 Est GFR (MDRD) Af Amer 75 Est GFR (MDRD) Non-Af 62 BUN/Creatinine Ratio 9.2 L Glucose 97 Calcium 8.4 L Troponin I High Sens 7.6 Radiography Chest X-Ray - ED: 1 View, Read by ED Physician, Read by Radiologist, Normal, Heart and Lungs Diagnostic Testing: Radiology Impression Chest X-Ray 04/13/21 17:07 IMPRESSION: No acute process Electronically Signed: Bj Rocha MD at 17:33 EDT , Service support , EKG Initial EKG: Comments: Sinus rhythm with a rate of 66. Normal CO and QTc intervals. No ischemic changes. Discharge Plan Triage Chief Complaint: Constipation ED Provider: Telly Molina Dx/Rx/DC Orders Clinical Impression: Acute chest wall pain Instructions: ED Chest Wall Pain, Costochondritis Prescriptions: No Action Bevespi Aerosphere 9-4.8 mcg HFA aerosol inhaler 2 puff INHALATION BID RF: 0 topiramate 50 mg tablet PO RF: 0 Chantix Continuing Month Box 1 mg tablet 1 mg PO BID RF: 0 trazodone 50 mg tablet 50 mg PO QHS PRNRF: 0 simethicone [Gas Relief (simethicone)] 80 mg tablet,chewable 80 mg PO 4-6XD PRNRF: 0 ropinirole 0.25 mg tablet PO RF: 0 polyethylene glycol 3350 [Miralax] 17 gram/dose powder 17 g PO DAILY PRNRF: 0 fluticasone propionate [Flonase Allergy Relief] 50 mcg/actuation spray,suspension 2 spray INTRANASAL DAILY PRNRF: 0 dicyclomine 10 mg capsule 10 mg PO BID PRNRF: 0 cyclobenzaprine 10 mg tablet PO RF: 0 cetirizine 10 mg tablet PO RF: 0 acetaminophen-codeine 300-30 mg tablet PO RF: 0 rizatriptan 10 mg tablet PO RF: 0 aspirin 81 mg tablet,delayed release (DR/EC) 81 mg PO DAILY@0800 Qty: 90 RF: 3 lisinopril 5 mg tablet 5 mg PO DAILY Qty: 90 RF: 3 verapamil 120 mg capsule,ext rel. pellets 24 hr 120 mg PO DAILY Qty: 90 RF: 3 Keytruda 25 mg/mL solution .Route .q3wks RF: 0 albuterol sulfate 18 GM HFA aerosol inhaler 2 puff inhalation PRN PRN (Reason: Shortness Of Breath) RF: 0 potassium chloride 20 MEQ tablet 40 meq PO DAILY Qty: 10 RF: 0 rosuvastatin [Crestor] 10 mg tablet 10 mg PO DAILY Qty: 1 RF: 0 Primary Care Provider: Lulú Camacho Referrals: Lulú Camacho MD [Primary Care Provider] - 2 Days Disposition Disposition: Home, Self Care
[2021-04-13 18:02] VITALS: BP 142/53; PULSE 68; RESP 13; O2SAT 97
== END 2021-04-13 18:39 | disposition home or self-care (01) ==
PROVIDERS: Emergency Provider Emergency Medicine; PCP Internal Medicine
DX: R07.89 Other chest pain (principal); I25.10 Atherosclerotic heart disease of native coronary artery without angina pectoris; I25.2 Old myocardial infarction; F17.200 Nicotine dependence, unspecified, uncomplicated
CPT/HCPCS: 71045; 80048; 84484; 85025; 93005; 99285; A4216

== ENCOUNTER 2025-04-27 14:16 | Inpatient (IN) | payer MEDICAID, SELFPAY ==
[2019-10-09 10:27] VITALS: BMI 36.3
[2025-04-27] VITALS (31 sets, daily range): BP systolic 70–109; BP diastolic 33–78; PULSE 78–98; RESP 12–99; TEMP 36.4–37.2; O2SAT 23–100; BMI 33.4; BMI 31.8
--- NOTE | 2025-04-27 14:32 | EKG12_ITS ---
Test Reason : SOB/HYPOTENSION Blood Pressure : */* mmHG Vent. Rate : 101 BPM Atrial Rate : 101 BPM P-R Int : 144 ms QRS Dur : 88 ms QT Int : 396 ms P-R-T Axes : 61 89 26 degrees QTcB Int : 513 ms Sinus tachycardia Right atrial enlargement Abnormal ECG baseline artifact interfear with interpretation Confirmed by Milan Coburn ([id number]), content editor JHONY CRUZ ([id number]) on 04/28/2025 1:21:33 PM Referred By: MARLEY Confirmed By: Milan Coburn
--- NOTE | 2025-04-27 14:40 | ED.VIS.DYS ---
HPI History of Present Illness Chief Complaint: Shortness of Breath Narrative Narrative: Chief complaint and HPI: Shortness of breath and cough. 64-year-old female with history of stage IV lung cancer that is metastasized to the bone, COPD presents for evaluation of shortness of breath and cough. Patient states her last chemotherapy was 1.5 months ago. She does not receive radiation. Does not have a port. Patient states for the past 3 weeks she has been having progressive shortness of breath and productive cough. She states she called her primary care physician weeks ago stating that she needed steroids and antibiotics however medication was not given. She states her shortness of breath and cough has worsened. She endorses decreased appetite. She denies any fever, chills, chest pain, abdominal pain, nausea, vomiting, dysuria. Daily smoker. Not on blood thinners. Review of systems: See HPI Medications: As listed on the chart Allergies: As listed on the chart PFSH: Per chart Vital signs: As listed on the chart. Reviewed. Physical exam: Gen: A&O x3, NAD Head: Normocephalic, atraumatic Eyes: No sclera icterus, conjunctiva clear ENT: Moist mucous membranes Neck: Trachea midline, No JVD CV: RRR, no murmurs, no peripheral edema Resp: Lungs diminished in the bilateral bases, coarse, expiratory wheezing, tachypneic, 2 L nasal cannula GI: Abd soft, non-distended, non-tender, no r/r/g Musc: Full ROM, no deformity Skin: Warm, dry Neuro: Alert, oriented, grossly intact, sensation intact Psych: Cooperative, appropriate mood and affect [facility] Medical History Hyperlipidemia Left ventricular hypertrophy Essential hypertension History of ST elevation myocardial infarction (STEMI) (10/09/19) Tobacco abuse Metastatic lung carcinoma Asthma Arteriosclerosis of coronary artery in patient with history of myocardial infarction COPD (chronic obstructive pulmonary disease) Home Medications ?Medication ?Instructions ?Recorded ?Last Taken ?Type albuterol sulfate 90 mcg/actuation 2 puff inhalation PRN PRN 03/04/14 02/17/15 18:30 History aerosol inhaler Shortness Of Breath 2 PUFF fluticasone propionate 50 2 spray intranasal DAILY PRN 07/05/20 Unknown History mcg/actuation nasal allergy symptoms spray,suspension (Flonase Allergy Relief) cyclobenzaprine 10 mg tablet 10 mg PO BID PRN pain 01/12/22 Unknown History rosuvastatin 40 mg tablet 40 mg PO DAILY 01/12/22 Unknown History aspirin 81 mg tablet,delayed 81 mg PO DAILY@0800 #90 tabs 01/12/23 04/26/25 Rx release hydrochlorothiazide 25 mg tablet 25 mg PO DAILY #90 tabs 05/08/24 04/26/25 Rx verapamil 120 mg 24 hr 120 mg PO DAILY #90 caps 05/08/24 04/26/25 Rx capsule,extended release albuterol sulfate 2.5 mg/3 mL 2.5 mg continuous nebulization Q6 01/29/25 Unknown History (0.083 %) solution for nebulization PRN wheezing benzonatate 100 mg capsule 200 mg PO TID PRN cough 01/29/25 Unknown History esomeprazole magnesium 20 mg 20 mg PO QAM 01/29/25 Unknown History capsule,delayed release fluticasone 500 mcg-salmeterol 50 1 ea inhalation BID 01/29/25 Unknown History mcg/dose blistr powdr for inhalation (Advair Diskus) folic acid 1 mg tablet 1 mg PO QDAY 01/29/25 Unknown History furosemide 20 mg tablet 20 - 40 mg PO QDAY PRN edema 01/29/25 Unknown History ibuprofen 800 mg tablet 800 mg PO Q8H PRN pain 01/29/25 Unknown History losartan 25 mg tablet 25 mg PO QDAY 01/29/25 Unknown History multivitamin with folic acid 400 1 tab PO QDAY 01/29/25 Unknown History mcg tablet (Daily-Nettie (with folic acid)) oxycodone-acetaminophen 10 mg-325 1 tab PO Q4 PRN pain 01/29/25 Unknown History mg tablet potassium chloride 20 mEq oral 20 meq PO BID 01/29/25 Unknown History packet sennosides 8.6 mg tablet (Natural 17.2 mg PO BID 01/29/25 Unknown History Senna Laxative) umeclidinium 62.5 mcg/actuation 1 inh inhalation QDAY 01/29/25 Unknown History blister powder for inhalation (Incruse Ellipta) celecoxib 100 mg capsule 100 mg PO Q24H 04/27/25 Unknown History levofloxacin 500 mg tablet 500 mg PO DAILY 04/27/25 04/26/25 History prednisone 10 mg tablet See Rx Instructions PO .COMPLEX 04/27/25 04/26/25 History prochlorperazine maleate 10 mg 10 mg PO Q6H PRN 04/27/25 Unknown History tablet Allergy/AdvReac Type Severity Reaction Status Date / Time Penicillins Allergy Intermediate Hives Verified 04/27/25 14:18 amoxicillin trihydrate (From Allergy Hives Verified 04/27/25 14:18 Augmentin) potassium clavulanate (From Allergy Hives Verified 04/27/25 14:18 Augmentin) Family History Brother Cancer lung Surgical History S/P trigger finger release History of coronary artery stent placement (10/09/19) History of cholecystectomy History of appendectomy History of carpal tunnel release of both wrists History of hysterectomy Social History (Updated 01/29/25 @ 14:12 by Nel Delgado) Smoking Status: Current every day smoker tobacco type: cigarettes quit status: quit date established alcohol intake: never substance use type: marijuana caffeine: No EXAM Physical Exam Const Vital Signs: 04/27/25 14:18 04/27/25 14:21 04/27/25 14:21 Temperature 97.9 F 98.5 F Temperature Source Oral Oral Pulse Rate 96 93 Respiratory Rate 38 H 26 H Respiratory Depth Shallow Respiratory Pattern Tachypnea Blood Pressure 70/40 L 94/56 L Blood Pressure Mean 50 68 Pulse Ox 91 99 Oxygen Delivery Method Room Air Room Air Nasal Cannula Oxygen Flow Rate (L/min) 2 Fraction of Inspired Oxygen (FIO2) 04/27/25 14:32 04/27/25 14:40 04/27/25 14:48 Temperature 98.8 F Temperature Source Oral Pulse Rate 90 87 Respiratory Rate 24 H 26 H Respiratory Depth Respiratory Pattern Tachypnea Blood Pressure 78/51 L Blood Pressure Mean 60 Pulse Ox 98 97 Oxygen Delivery Method Nasal Cannula Nasal Cannula Oxygen Flow Rate (L/min) 2 2 Fraction of Inspired Oxygen (FIO2) 04/27/25 15:18 04/27/25 15:21 04/27/25 16:00 Temperature 98.7 F 97.8 F 97.8 F Temperature Source Oral Oral Oral Pulse Rate 87 90 84 Respiratory Rate 23 H 22 H 21 H Respiratory Depth Respiratory Pattern Blood Pressure 71/43 L 90/42 L 95/51 L Blood Pressure Mean 52 58 65 Pulse Ox 98 95 95 Oxygen Delivery Method Nasal Cannula Nasal Cannula Nasal Cannula Oxygen Flow Rate (L/min) 2 2 2 Fraction of Inspired Oxygen (FIO2) 04/27/25 16:32 04/27/25 16:48 04/27/25 17:00 Temperature 98.9 F 98.1 F Temperature Source Oral Temporal Pulse Rate 98 97 95 Respiratory Rate 26 H 24 H 25 H Respiratory Depth Respiratory Pattern Tachypnea Blood Pressure 94/56 L 109/47 L Blood Pressure Mean 68 67 Pulse Ox 92 96 100 Oxygen Delivery Method Nasal Cannula Bi-pap Oxygen Flow Rate (L/min) 4 Fraction of Inspired Oxygen (FIO2) 50 04/27/25 17:56 04/27/25 18:23 Temperature 97.8 F 98.2 F Temperature Source Temporal Temporal Pulse Rate 87 88 Respiratory Rate 24 H 24 H Respiratory Depth Respiratory Pattern Blood Pressure 74/44 L 82/51 L Blood Pressure Mean 54 61 Pulse Ox 99 99 Oxygen Delivery Method Bi-pap Bi-pap Oxygen Flow Rate (L/min) Fraction of Inspired Oxygen (FIO2) 30 30 MDM MDM MDM Narrative Medical decision making narrative: 64-year-old female with history of stage IV lung cancer that is metastasized to the bone, COPD presents for evaluation of shortness of breath and cough. Patient states her last chemotherapy was 1.5 months ago. She does not receive radiation. Does not have a port. Patient states for the past 3 weeks she has been having progressive shortness of breath and productive cough. Daily smoker. Not on blood thinners. On presentation, patient is hypotensive, tachypneic, hypoxic. Does not wear oxygen at home. Differential diagnosis includes but is not limited to pneumonia, COPD exacerbation, PE, viral illness, electrolyte abnormality, SABA, UTI. Patient meets sepsis criteria. Cefepime and vancomycin ordered broadly given that patient is immunocompromise given her chemotherapy. Solu-Medrol and DuoNebs ordered. 30 cc/kg bolus will be given based on ideal body weight as concern is for fluid overload with your respiratory status. Infectious workup ordered including CTA of the chest. CBC with leukocytosis of 21.5. No anemia. Platelets unremarkable. VBG without acidosis or hypercapnia. CMP consistent with dehydration. Patient's potassium is 2.6. IV potassium ordered for replacement as well as magnesium level. Patient has a BUN of 53 and a creatinine of 1.63. Previous labs on chart review are from 2022 normal kidney function at that time. Unknown if this is acute or chronic. Her lactic is 2.3. She is receiving fluids. Her magnesium level mildly elevated. Troponin 39. Patient not endorsing any chest pain. Will get delta. BNP elevated at 1615. CTA of the chest negative for PE. Patient has mediastinal lymphadenopathy of the main pulmonary arteries being encased causing mass effect, greater on the right. Concerning for her known neoplastic process. Partial consolidation and groundglass attenuation of the right lower lobe, likely pneumonia. Urschel consolidation in the right middle lobe. Patient already receiving antibiotics. On reevaluation, blood pressure has improved with fluids however she is having increasing shortness of breath, will place on BiPAP. Patient updated of all the results and the plan for admission. Spoke with the hospitalist service who would like to reach out to pulmonology prior to accepting admission. Waiting for their plan. Hospital service spoke with telegraph operator, patient wants full treatment will be better served at a tertiary care center. Hospitalist came and evaluated patient, patient would like to remain full code and therefore we will try to transfer her to [facility] where her oncologist is located. Patient having decreased blood pressure again. Will get chest x-ray before giving fluids to make sure that patient is not fluid overloaded. Chest x-ray was personally viewed interpreted by me, ED physician. Patient's pneumonia and cancer is visualized. No large effusion. No vascular congestion. Patient will be given another NS bolus. I spoke to the [facility] transfer line as well as the [facility] bench mechanic, Dr. Mcguire. Patient was accepted for transfer but will be placed on a wait list. Likely will not be transferred in the next 24 hours. Recommend her to be admitted to our hospital with treatment. I talked to Dr. Hassan. She confirmed understand the plan. She accepted admission. I did inform her that Dr. Mcguire states states to call their team in the morning to give them updates. She confirmed understanding of the plan. Patient was updated of the plan as well. I was informed by the [facility] transfer line that patient renal insufficiency is new therefore it is an SABA EKG: Interpreted by me/EM physician: EKG shows sinus tachycardia with occasional PVCs. There is multiple artifact on the EKG. Heart rate 101. 45 minutes of critical care time utilized in managing the patient. This is due to high probability of and deterioration of the patient based on the patient's condition and excludes any separately billable procedures. Impression: 1. Acute hypoxic respiratory failure requiring BiPAP 2. Sepsis secondary to right-sided pneumonia 3. Stage IV lung cancer 4. SABA 5. Lactic acidosis 6. Elevated troponin, likely secondary to type II demand 7. Hypokalemia 4. Elevated BNP Lab Data Labs: Laboratory Results - last 24 hr 04/27/25 04/27/25 04/27/25 14:45 16:00 16:45 WBC 21.5 H RBC 4.44 Hgb 12.5 Hct 37.4 MCV 84.2 MCH 28.2 MCHC 33.4 RDW Std Deviation 49.6 H RDW Coeff of Keven 16.1 H Plt Count 163 MPV 10.9 Immature Gran % (Auto) 1.800 H Neut % (Auto) 88.0 H Lymph % (Auto) 3.2 L Mcculloch % (Auto) 6.1 Eos % (Auto) 0.7 Baso % (Auto) 0.2 Absolute Neuts (auto) 18.9 H Absolute Lymphs (auto) 0.69 L Nucleated RBC % 0 PT Cancelled 16.6 H INR Cancelled 1.3 APTT Cancelled 23.3 L Sodium 132 L Potassium 2.6 L* Chloride 89 L Carbon Dioxide 24.7 Anion Gap 18 H BUN 53 H Creatinine 1.63 H Estim Creat Clear Calc 32.54 L Est GFR (MDRD) Non-Af 35 L BUN/Creatinine Ratio 32.3 H Glucose 139 H Lactic Acid 2.3 H* Calcium 11.4 H Magnesium 2.3 H Total Bilirubin 0.89 AST 28 ALT 44 H Alkaline Phosphatase 187 H Troponin T High Sens 39 H Troponin T Hi Sens 2 Hr 34 H NT pro BNP II 1615 H Total Protein 7.7 Albumin 3.5 Globulin 4.2 Albumin/Globulin Ratio 0.8 L Urine Color Urine Clarity Urine pH Ur Specific Buskirk Urine Protein Urine Glucose (UA) Urine Ketones Urine Occult Blood Urine Nitrite Urine Bilirubin Urine Urobilinogen Ur Leukocyte Esterase Urine RBC Urine WBC Ur Squamous Epith Cells Urine Bacteria Urine Mucus 04/27/25 18:35 WBC RBC Hgb Hct MCV MCH MCHC RDW Std Deviation RDW Coeff of Keven Plt Count MPV Immature Gran % (Auto) Neut % (Auto) Lymph % (Auto) Mcculloch % (Auto) Eos % (Auto) Baso % (Auto) Absolute Neuts (auto) Absolute Lymphs (auto) Nucleated RBC % PT INR APTT Sodium Potassium Chloride Carbon Dioxide Anion Gap BUN Creatinine Estim Creat Clear Calc Est GFR (MDRD) Non-Af BUN/Creatinine Ratio Glucose Lactic Acid Calcium Magnesium Total Bilirubin AST ALT Alkaline Phosphatase Troponin T High Sens Troponin T Hi Sens 2 Hr NT pro BNP II Total Protein Albumin Globulin Albumin/Globulin Ratio Urine Color Straw Urine Clarity Clear Urine pH 7.0 Ur Specific Buskirk 1.005 Urine Protein 30 H Urine Glucose (UA) Normal Urine Ketones Negative Urine Occult Blood 10 H Urine Nitrite Negative Urine Bilirubin Negative Urine Urobilinogen Normal Ur Leukocyte Esterase Negative Urine RBC 0-5 SEEN Urine WBC 0-5 SEEN Ur Squamous Epith Cells 0-5 SEEN Urine Bacteria 0 SEEN Urine Mucus 0 SEEN ABG Data ABG results: ABG 04/27/25 15:25 Specimen Type ART Sample Site L Radial pH 7.49 H Bicarbonate Actual 27.2 H Total CO2 28 Base Excess 4 H O2 Saturation 97 O2 % 2.0 ABG pCO2 35.3 ABG pO2 87 Arie Test Positive O2 Delivery Device Cannula Vent Mode Not entered Radiography Diagnostic Testing: Clinical Impression(s) from Imaging Studies Chest CTA 04/27/25 15:41 IMPRESSION: 1. No pulmonary embolus. However, significant mediastinal lymphadenopathy is identified with the main pulmonary arteries being encased causing mass effect, greater on the right. This is concerning for neoplastic process. 2. Partial consolidation and ground-glass attenuation of the right lower lobe, likely pneumonia. Partial consolidation of the right middle lobe. Reading Location: [facility] Chest X-Ray 04/27/25 18:41 IMPRESSION: Right lower lobe pneumonia. Right upper lobe/hilar opacity may also reflect consolidation/neoplastic process. Reading Location: [id number] Discharge Plan Triage Chief Complaint: Shortness of Breath ED Provider: Yaya Arndt Dx/Rx/DC Orders Prescriptions: No Action fluticasone propionate [Flonase Allergy Relief] 50 mcg/actuation spray,suspension 2 spray INTRANASAL DAILY PRN (Reason: allergy symptoms) Rx Instructions: administer into each nostril cyclobenzaprine 10 mg tablet 10 mg PO BID PRN (Reason: pain) Patient Comments: TAKE 1/2 (ONE-HALF) TO 1 (ONE) TABLET BY MOUTH THREE TIMES DAILY NEEDED FOR MUSCLE SPASMS rosuvastatin 40 mg tablet 40 mg PO DAILY potassium chloride 20 mEq packet 20 meq PO BID Patient Comments: TAKE 1 PACKET BY MOUTH TWICE DAILY hydrochlorothiazide 25 mg tablet 25 mg PO DAILY Qty: 90 3RF verapamil 120 mg capsule,ext rel. pellets 24 hr 120 mg PO DAILY Qty: 90 3RF folic acid 1 mg tablet 1 mg PO QDAY furosemide 20 mg tablet 20 - 40 mg PO QDAY PRN (Reason: edema) ibuprofen 800 mg tablet 800 mg PO Q8H PRN (Reason: pain) benzonatate 100 mg capsule 200 mg PO TID PRN (Reason: cough) fluticasone propion-salmeterol [Advair Diskus] 500-50 mcg/dose blister with device 1 ea inhalation BID Incruse Ellipta 62.5 mcg/actuation blister with device 1 inh inhalation QDAY multivitamin with folic acid [Daily-Nettie (with folic acid)] 400 mcg tablet 1 tab PO QDAY losartan 25 mg tablet 25 mg PO QDAY albuterol sulfate 2.5 mg /3 mL (0.083 %) solution for nebulization 2.5 mg continuous nebulization Q6 PRN (Reason: wheezing) esomeprazole magnesium 20 mg capsule,delayed release(DR/EC) 20 mg PO QAM sennosides [Natural Senna Laxative] 8.6 mg tablet 17.2 mg PO BID oxycodone-acetaminophen 10-325 mg tablet 1 tab PO Q4 PRN (Reason: pain) albuterol sulfate 18 GM HFA aerosol inhaler 2 puff inhalation PRN PRN (Reason: Shortness Of Breath) Patient Comments: prednisone 10 mg tablet See Rx Instructions PO .COMPLEX Rx Instructions: TAKE 4 TABLETS BY MOUTH ONCE DAILY for 3 days, then 3 tablets for 3 days, then 2 tablets for 3 days, then 1 tablet for 3 days; TAPER prochlorperazine maleate 10 mg tablet 10 mg PO Q6H PRN levofloxacin 500 mg tablet 500 mg PO DAILY celecoxib 100 mg capsule 100 mg PO Q24H aspirin 81 mg tablet,delayed release (DR/EC) 81 mg PO DAILY@0800 Qty: 90 3RF Primary Care Provider: Lulú Camacho Referrals: Lulú Camacho MD [Primary Care Provider] - Print Language: Spanish
[2025-04-27] MEDS: 0.9% Normal Saline (1000mL) 1,000 ML 999 ML IV (14:59)
[2025-04-27 15:20] LABS: Hematocrit 37.4 % (37-47); Hemoglobin 12.5 g/dL (12.0-15.0); Immature Granulocytes Count 0.390 X10^3/uL (0.0-0.0); Mean Corp Hgb Conc 33.4 g/dL (32-36); Mean Corpuscular Volume 84.2 fL (81-99); Mean Platelet Vol. 10.9 fl (6.2-12.0); NRBC Flagged by Analyzer 0 % (0-5); Platelet Count 163 K/mm3 (150-450); RBC Distribution Width CV 16.1 % (11.6-14.6); RBC Distribution Width SD 49.6 fl (35.1-43.9); Red Blood Count 4.44 M/mm3 (4.2-5.4); White Blood Count 21.5 K/mm3 (4.4-11.0)
[2025-04-27 15:28] LABS: Allen Test Positive; Base Excess 4 mmol/L (-2 to +2); FI02 2.0; PO2 87 mmHG (75-100); SITE L Radial; SO2 97 % (95-99)
[2025-04-27 15:41] LABS: Pro- Brain NATRIURETIC PEPTIDE 1615 pg/mL (<=900)
--- NOTE | 2025-04-27 15:41 | CT_ITS ---
EXAM: CT Angiography Chest Without and With Intravenous Contrast CLINICAL INDICATION: PE< SOB WITH CA TECHNIQUE: Axial computed tomographic angiography images of the chest without and with intravenous contrast. This CT exam was performed using one or more of the following dose reduction techniques: automated exposure control, adjustment of the mA and/or kV according to patient size, and/or use of iterative reconstruction technique. MIP reconstructed images were created and reviewed. COMPARISON: No relevant prior studies available. FINDINGS: PULMONARY ARTERIES: Unremarkable. No pulmonary embolus. However, significant mediastinal lymphadenopathy is identified with the main pulmonary arteries being encased causing mass effect, greater on the right. This is concerning for neoplastic process. AORTA: No acute findings. No thoracic aortic aneurysm. LUNGS AND PLEURAL SPACES: Partial consolidation and ground-glass attenuation of the right lower lobe, likely pneumonia. Partial consolidation of the right middle lobe. No significant effusion. HEART: Unremarkable. No cardiomegaly. No significant pericardial effusion. No evidence of RV dysfunction. BONES/JOINTS: 1.6 cm sclerotic lesion of T8 vertebral body concerning for metastasis. No acute fracture. No dislocation. SOFT TISSUES: Unremarkable. LYMPH NODES: See above. CT/CTA Chest W/WO Contrast IMPRESSION: 1. No pulmonary embolus. However, significant mediastinal lymphadenopathy is identified with the main pulmonary arteries being encased causing mass effect, greater on the right. This is concerning for neop lastic process. 2. Partial consolidation and ground-glass attenuation of the right lower lobe, likely pneumonia. Partial consolidation of the right middle lobe. Reading Location: [id number]
[2025-04-27 15:51] LABS: AST(SGOT) 28 U/L (<=31); Alanine Aminotransfer ALT/SGPT 44 U/L (<=34); Albumin, Serum 3.5 g/dL (3.4-4.8); Alkaline Phosphatase 187 U/L (35-104); Anion Gap 18 (5-15); BUN 53 mg/dL (4-19); BUN/Creat Ratio 32.3 RATIO (10-20); Calcium,Total 11.4 mg/dL (7.6-11.0); Carbon Dioxide 24.7 mmol/L (21.0-32.0); Chloride 89 mmol/L (98-108); Estimated Creatinine Clearance 32.54 ml/min (50-250); Globulin 4.2 g/dL (2.2-4.2); Glucose 139 mg/dL (70-99); Potassium 2.6 mmol/L (3.3-5.1)
[2025-04-27] MEDS: Cefepime HCl 2 GM in 0.9% Normal Saline (100mL MB+) 100 ML IV ×2 (15:59→23:22)
[2025-04-27 16:00] LABS: Troponin T High Sensitivity 39 ng/L (<=14)
[2025-04-27] MEDS: Potassium Chloride 10mEq/100mL 10 MEQ/100 ML IV.SOLN. 100 MEQ IV BOLUS ×4 (16:20→23:29)
[2025-04-27 16:23] LABS: Magnesium 2.3 mg/dL (1.5-2.2)
[2025-04-27 17:28] LABS: Prothrombin Time (Protime)PT. 16.6 SECONDS (11.7-14.9)
[2025-04-27 17:29] LABS: Partial Thromboplast Time 23.3 Seconds (24.1-36.2)
[2025-04-27 17:34] LABS: Troponin T High Sens 2 HR 34 ng/L (<=14)
--- NOTE | 2025-04-27 18:05 | PCM.HP.STD ---
HPI - General General Date of Admission: 04/27/25 Date of Service: 04/27/25 Chief Complaint: SOB and cough HPI Narrative MAUREEN WHITLEY, is a 64-year-old female history of stage IV lung cancer with mets to the bone, COPD, coronary artery disease, hypertension, migraines presented [facility] ED 04/27/2025 due to shortness of breath and cough. Last chemotherapy 1.5 months ago with no radiation, no port. Noted for the past 3 weeks she has had increased shortness of breath and productive cough. On arrival temp 97.9, heart rate 96, BP 70/40, RR 38, and pulse ox 91% on RA. Repeat blood pressure was 94/56, respiratory rate 26 and 99% on 2 L nasal cannula. CBC with a white blood cell count of 21.5. BMP with a sodium of 132, potassium 2.6, bicarb 24.7, anion gap of 18 with a BUN of 53 and a creatinine of 1.63. Calcium of 11.4. Lactic acid 2.3. proBNP of 1615 and troponin of 39. CTA of chest with significant mediastinal lymphadenopathy with the main pulmonary arteries being encased causing mass effect greater on the right with concern for neoplastic process as well as partial consolidation and groundglass attenuation of the right lower lobe which is likely pneumonia and partial consolidation of right middle lobe. Patient given IV fluids and antibiotics and was placed on BiPAP due to increased work of breathing. Hospitalist contacted for admission. Reviewed imaging and discussed with pulmonology, patient still full code and wants to continue with aggressive management and given the mass effect on the pulmonary artery and possible mass causing collapse of lung it was advised that patient be transferred to [facility] if she did indeed want to continue to be aggressive in management in the event she would continue to deteriorate. Patient evaluated with son and other family members at bedside. She confirms that she has stage IV cancer and reportedly they recently found another cancer that is more aggressive and there is a plan to start new chemo when she was feeling better but has not yet started due to her increasing shortness of breath and cough. She denies any chest pain at home or fevers. Has a little bit of swelling in her feet which is new and son reports she had significant difficulty ambulating even short distances prior to coming in due to shortness of breath and she also has not been able to lay flat and has been sleeping sitting up so she has had very poor sleep. Discussed imaging findings and current status with patient and family members, again patient and family confirm that patient is full code and wants to continue to be aggressive with management. Given this discussed potential transfer and patient and family agreeable. Discussed that she may stabilize and not need to undergo any acute intervention or intervention may not be offered but given she wants to continue aggressive management in light of her CT findings and mass effect on pulmonary artery it would be reasonable to be at a higher level of care. Discussed with ED physician who called [facility], she spoke with Dr. Mcguire in the MICU who said she will be put on the wait list and can be admitted to our hospital in the meantime and advised we call tomorrow with updates for further triaging purposes. Presently patient reports she is beginning to feel better, resting more comfortably on BiPAP and denies any lightheadedness or other new complaints [facility] Medical History (Updated 04/27/25 @ 21:[address] Ilana Hassan MD) Arteriosclerosis of coronary artery in patient with history of myocardial infarction Asthma COPD (chronic obstructive pulmonary disease) Essential hypertension History of ST elevation myocardial infarction (STEMI) (10/09/19) Hyperlipidemia Left ventricular hypertrophy Metastatic lung carcinoma Tobacco abuse Home Medications ?Medication ?Instructions ?Recorded ?Last Taken ?Type albuterol sulfate 90 mcg/actuation 2 puff inhalation PRN PRN 03/04/14 02/17/15 18:30 History aerosol inhaler Shortness Of Breath 2 PUFF fluticasone propionate 50 2 spray intranasal DAILY PRN 07/05/20 Unknown History mcg/actuation nasal allergy symptoms spray,suspension (Flonase Allergy Relief) cyclobenzaprine 10 mg tablet 10 mg PO BID PRN pain 01/12/22 Unknown History rosuvastatin 40 mg tablet 40 mg PO DAILY 01/12/22 Unknown History aspirin 81 mg tablet,delayed 81 mg PO DAILY@0800 #90 tabs 01/12/23 04/26/25 Rx release hydrochlorothiazide 25 mg tablet 25 mg PO DAILY #90 tabs 05/08/24 04/26/25 Rx verapamil 120 mg 24 hr 120 mg PO DAILY #90 caps 05/08/24 04/26/25 Rx capsule,extended release albuterol sulfate 2.5 mg/3 mL 2.5 mg continuous nebulization Q6 01/29/25 Unknown History (0.083 %) solution for nebulization PRN wheezing benzonatate 100 mg capsule 200 mg PO TID PRN cough 01/29/25 Unknown History esomeprazole magnesium 20 mg 20 mg PO QAM 01/29/25 Unknown History capsule,delayed release fluticasone 500 mcg-salmeterol 50 1 ea inhalation BID 01/29/25 Unknown History mcg/dose blistr powdr for inhalation (Advair Diskus) folic acid 1 mg tablet 1 mg PO QDAY 01/29/25 Unknown History furosemide 20 mg tablet 20 - 40 mg PO QDAY PRN edema 01/29/25 Unknown History ibuprofen 800 mg tablet 800 mg PO Q8H PRN pain 01/29/25 Unknown History losartan 25 mg tablet 25 mg PO QDAY 01/29/25 Unknown History multivitamin with folic acid 400 1 tab PO QDAY 01/29/25 Unknown History mcg tablet (Daily-Nettie (with folic acid)) oxycodone-acetaminophen 10 mg-325 1 tab PO Q4 PRN pain 01/29/25 Unknown History mg tablet potassium chloride 20 mEq oral 20 meq PO BID 01/29/25 Unknown History packet sennosides 8.6 mg tablet (Natural 17.2 mg PO BID 01/29/25 Unknown History Senna Laxative) umeclidinium 62.5 mcg/actuation 1 inh inhalation QDAY 01/29/25 Unknown History blister powder for inhalation (Incruse Ellipta) celecoxib 100 mg capsule 100 mg PO Q24H 04/27/25 Unknown History levofloxacin 500 mg tablet 500 mg PO DAILY 04/27/25 04/26/25 History prednisone 10 mg tablet See Rx Instructions PO .COMPLEX 04/27/25 04/26/25 History prochlorperazine maleate 10 mg 10 mg PO Q6H PRN 04/27/25 Unknown History tablet Allergy/AdvReac Type Severity Reaction Status Date / Time Penicillins Allergy Intermediate Hives Verified 04/27/25 14:18 amoxicillin trihydrate (From Allergy Hives Verified 04/27/25 14:18 Augmentin) potassium clavulanate (From Allergy Hives Verified 04/27/25 14:18 Augmentin) Family History Brother Cancer lung Surgical History History of appendectomy History of carpal tunnel release of both wrists History of cholecystectomy History of coronary artery stent placement (10/09/19) History of hysterectomy S/P trigger finger release Social History (Updated 01/29/25 @ 14:12 by Nel Delgado) Smoking Status: Current every day smoker tobacco type: cigarettes quit status: quit date established alcohol intake: never substance use type: marijuana caffeine: No ROS ROS Narrative General: Denies fever/chills at home HENT: Denies headache, denies sore throat EYES: Denies changes in vision Resp: Has had increased productive cough and shortness of breath Cardiac: Denies chest pain GI: Denies abdominal pain, denies changes in bowel, denies nausea/vomiting : Denies changes in urination Extremity: Does have some swelling in legs MSK: Some generalized weakness Neuro: Denies any numbness/tingling Heme: Denies any bleeding or bruising Skin: Denies rashes Psychiatric: No complaints voiced Vital Signs Vital Signs Vital Signs: 04/27/25 14:18 04/27/25 14:21 04/27/25 14:21 Temperature 97.9 F 98.5 F Temperature Source Oral Oral Pulse Rate 96 93 Respiratory Rate 38 H 26 H Respiratory Depth Shallow Respiratory Pattern Tachypnea Blood Pressure 70/40 L 94/56 L Blood Pressure Mean 50 68 Pulse Ox 91 99 Oxygen Delivery Method Room Air Room Air Nasal Cannula Oxygen Flow Rate (L/min) 2 Fraction of Inspired Oxygen (FIO2) 04/27/25 14:32 04/27/25 14:40 04/27/25 14:48 Temperature 98.8 F Temperature Source Oral Pulse Rate 90 87 Respiratory Rate 24 H 26 H Respiratory Depth Respiratory Pattern Tachypnea Blood Pressure 78/51 L Blood Pressure Mean 60 Pulse Ox 98 97 Oxygen Delivery Method Nasal Cannula Nasal Cannula Oxygen Flow Rate (L/min) 2 2 Fraction of Inspired Oxygen (FIO2) 04/27/25 15:18 04/27/25 15:21 04/27/25 16:00 Temperature 98.7 F 97.8 F 97.8 F Temperature Source Oral Oral Oral Pulse Rate 87 90 84 Respiratory Rate 23 H 22 H 21 H Respiratory Depth Respiratory Pattern Blood Pressure 71/43 L 90/42 L 95/51 L Blood Pressure Mean 52 58 65 Pulse Ox 98 95 95 Oxygen Delivery Method Nasal Cannula Nasal Cannula Nasal Cannula Oxygen Flow Rate (L/min) 2 2 2 Fraction of Inspired Oxygen (FIO2) 04/27/25 16:32 04/27/25 16:48 04/27/25 17:00 Temperature 98.9 F 98.1 F Temperature Source Oral Temporal Pulse Rate 98 97 95 Respiratory Rate 26 H 24 H 25 H Respiratory Depth Respiratory Pattern Tachypnea Blood Pressure 94/56 L 109/47 L Blood Pressure Mean 68 67 Pulse Ox 92 96 100 Oxygen Delivery Method Nasal Cannula Bi-pap Oxygen Flow Rate (L/min) 4 Fraction of Inspired Oxygen (FIO2) 50 04/27/25 17:56 04/27/25 18:03 04/27/25 18:23 Temperature 97.8 F 98.2 F Temperature Source Temporal Temporal Pulse Rate 87 88 88 Respiratory Rate 24 H 24 H 24 H Respiratory Depth Respiratory Pattern Blood Pressure 74/44 L 82/51 L Blood Pressure Mean 54 61 Pulse Ox 99 88 99 Oxygen Delivery Method Bi-pap Bi-pap Oxygen Flow Rate (L/min) Fraction of Inspired Oxygen (FIO2) 30 30 04/27/25 18:30 04/27/25 18:45 04/27/25 18:46 Temperature Temperature Source Pulse Rate 88 Respiratory Rate 17 Respiratory Depth Respiratory Pattern Blood Pressure 97/68 96/70 Blood Pressure Mean 76 80 Pulse Ox 99 Oxygen Delivery Method Oxygen Flow Rate (L/min) Fraction of Inspired Oxygen (FIO2) 04/27/25 19:00 04/27/25 19:01 04/27/25 19:15 Temperature Temperature Source Pulse Rate 85 Respiratory Rate 21 H Respiratory Depth Respiratory Pattern Blood Pressure 90/78 74/33 L Blood Pressure Mean 85 40 Pulse Ox 98 97 Oxygen Delivery Method Oxygen Flow Rate (L/min) Fraction of Inspired Oxygen (FIO2) 04/27/25 19:21 04/27/25 19:30 04/27/25 19:45 Temperature Temperature Source Pulse Rate 86 85 83 Respiratory Rate 23 H 23 H 22 H Respiratory Depth Respiratory Pattern Blood Pressure 73/56 L 85/48 L 81/51 L Blood Pressure Mean 63 57 61 Pulse Ox 97 97 97 Oxygen Delivery Method Oxygen Flow Rate (L/min) Fraction of Inspired Oxygen (FIO2) Weight Weight: 77.61 kg Body Mass Index (BMI) 33.4 Physical Exam Narrative General: Alert, oriented HEENT: Atraumatic, normocephalic Eyes: Anicteric, normal conjunctiva, extraocular movements grossly intact Neck: Supple Respiratory: Increased respiratory effort, coarse on the right side greater than left with diffuse wheezing Cardiovascular: Regular rate and rhythm GI: Soft, nontender, nondistended Extremities: Trace lower extremity edema Musculoskeletal: Moving all extremities Neuro: No overt focal neurological deficits Skin: No rashes appreciated Psych: Cooperative Results Lab / Micro Data 04/27/25 14:45 04/27/25 14:45 Labs: Laboratory Results - last 24 hr 04/27/25 14:45: WBC 21.5 H, RBC 4.44, Hgb 12.5, Hct 37.4, MCV 84.2, MCH 28.2, MCHC 33.4, RDW Std Deviation 49.6 H, RDW Coeff of K[place] 16.1 H, Plt Count 163, MPV 10.9, Immature Gran % (Auto) 1.800 H, Neut % (Auto) 88.0 H, Lymph % (Auto) 3.2 L, [place] % (Auto) 6.1, Eos % (Auto) 0.7, Baso % (Auto) 0.2, Absolute Neuts (auto) 18.9 H, Absolute Lymphs (auto) 0.69 L, Nucleated RBC % 0, PT Cancelled, INR Cancelled, APTT Cancelled, Sodium 132 L, Potassium 2.6 L*, Chloride 89 L, Carbon Dioxide 24.7, Anion Gap 18 H, BUN 53 H, Creatinine 1.63 H, Estim Creat Clear Calc 32.54 L, Est GFR (MDRD) Non-Af 35 L, BUN/Creatinine Ratio 32.3 H, Glucose 139 H, Lactic Acid 2.3 H*, Calcium 11.4 H, Magnesium 2.3 H, Total Bilirubin 0.89, AST 28, ALT 44 H, Alkaline Phosphatase 187 H, Troponin T High Sens 39 H, NT pro BNP II 1615 H, Total Protein 7.7, Albumin 3.5, Globulin 4.2, Albumin/Globulin Ratio 0.8 L 04/27/25 16:00: PT 16.6 H, INR 1.3, APTT 23.3 L 04/27/25 16:45: Troponin T Hi Sens 2 Hr 34 H 04/27/25 18:35: Urine Color Straw, Urine Clarity Clear, Urine pH 7.0, Ur Specific [place] 1.005, Urine Protein 30 H, Urine Glucose (UA) Normal, Urine Ketones Negative, Urine Occult Blood 10 H, Urine Nitrite Negative, Urine Bilirubin Negative, Urine Urobilinogen Normal, Ur Leukocyte Esterase Negative, Urine RBC 0-5 SEEN, Urine WBC 0-5 SEEN, Ur Squamous Epith Cells 0-5 SEEN, Urine Bacteria 0 SEEN, Urine Mucus 0 SEEN 04/27/25 18:45: Troponin T Hi Sens 4Hr 33 H Micro: Microbiology 04/27/25 14:45 Mucosa - Nose SARS-CoV-2, Influenza & RSV (PCR) - Final ABG Data ABG results: ABG 04/27/25 15:25 Specimen Type ART Sample Site L Radial pH 7.49 H Bicarbonate Actual 27.2 H Total CO2 28 Base Excess 4 H O2 Saturation 97 O2 % 2.0 ABG pCO2 35.3 ABG pO2 87 Arie Test Positive O2 Delivery Device Cannula Vent Mode Not entered Imaging Radiology Impression Chest CTA 04/27/25 15:41 IMPRESSION: 1. No pulmonary embolus. However, significant mediastinal lymphadenopathy is identified with the main pulmonary arteries being encased causing mass effect, greater on the right. This is concerning for neoplastic process. 2. Partial consolidation and ground-glass attenuation of the right lower lobe, likely pneumonia. Partial consolidation of the right middle lobe. Reading Location: [facility] Chest X-Ray 04/27/25 18:41 IMPRESSION: Right lower lobe pneumonia. Right upper lobe/hilar opacity may also reflect consolidation/neoplastic process. Reading Location: [facility] Assessment & Plan Assessment/Plan (1) Sepsis: (2) Pneumonia: (3) Metastatic lung carcinoma: PLAN: Plan # Sepsis secondary to right lower lobe pneumonia -Patient presented with blood pressure of 70/40 and a respiratory rate of 38 and has had progressive respiratory failure necessitating BiPAP. WBC 21.5 and patient with an elevated lactic of 2.3 and new SABA with a creatinine of 1.63. -Blood culture sent -Patient given less than the 30 cc/kg of IV fluids due to respiratory distress, initially given 1 L, presently receiving a second liter -Imaging: CTA of chest with significant mediastinal lymphadenopathy with the main pulmonary arteries being encased causing mass effect greater on the right with concern for neoplastic process as well as partial consolidation and groundglass attenuation of the right lower lobe which is likely pneumonia and partial consolidation of right middle lobe -DuoNebs and as needed albuterol -Sputum culture, COVID negative, respiratory panel ordered -Urine antigens -Mucinex, I/S - Covering broadly given patient's presentation with vancomycin and cefepime - Additionally patient does have wheezing and seems to have component of COPD as well so we will continue Methylpred - Also of note blood pressure initially had been improving with IV fluids, she was only given a liter as she ended up on BiPAP for work of breathing, blood pressure then began to downtrend again the patient completely asymptomatic and actually reported feeling better, chest x-ray did not show fluid overload and patient appeared much more comfortable so she is receiving second liter, blood pressure on my reevaluation was up to 88 systolic from the 70s/is improving. Will give patient maintenance fluid after that liter - Patient on multiple antihypertensives, these have all been held #Stage IV lung cancer with metastasis to bone -Last chemo 1.5 months ago - Reportedly patient recently had new cancer found as well that is more aggressive and she is post to begin chemotherapy but had not yet been able to do so -CT scan findings as above, patient does have mass effect on pulmonary artery, unclear if this could be affecting blood pressure and patient family also reports she was told during her last bronc that the tumor did seem to be obstructing her lung to some extent so she may have postobstructive pneumonia -Pulmonology consulted # Acute hypoxic respiratory failure -Worsened respiratory status and decreasing O2 with increased work of breathing necessitating BiPAP -Treat underlying pneumonia and sepsis -Unclear how much of this is directly related to her cancer versus pneumonia, will be treating her pneumonia and patient presently on wait list for [facility], if she stabilizes she would not necessitate transfer but presently remains on BiPAP due to her respiratory distress #SABA - BUN of 53 and creatinine 1.63, baseline appears to be about 0.85 -Treat underlying etiology, blood pressure support -She did receive some IV fluids however that seemed to worsen respiratory status initially but respiratory status stabilized and repeat x-ray does not appear overloaded so patient be given further fluids # Elevated troponin -Troponin of 39 -May be due to hypotension and sepsis -No chest pain #Hypokalemia -Replace - Will order repeat when this is completed - Hold home hydrochlorothiazide #Hypercalcemia - Calcium 11.4 - Receiving IV fluids -This may be hypercalcemia of malignancy given her lung cancer -Patient will have repeat blood work #Hx COPD -Nebs, steroids -Incentive spirometer #Hx of CAD -w/ previous STEMI and stenting -Continue home medications #GERD -Continue PPI #Hypertension - Patient came in hypotensive, hold home antihypertensives #DVT ppx: SCDs Ilana Hassan MD Time spent in the patient's overall evaluation, decision-making process, review of diagnostic data, adjustment of management, discussion with other providers, nursing and ancillary staff involved in patient's care documentation, 100 Minutes Sepsis Attestation Sepsis Alert: Yes Sepsis Attestation: Agree w/Sepsis Date exam was performed: 04/27/25 Time exam was performed: 18:30 Possible Source of Sepsis: Pulmonary Sepsis Organ Dysfunction Criteria Present: SBP < 90 mmHg or MAP < 65 mmHg, Acute Respiratory Failure (New need for BiPAP/CPAP or MV) and Lactic Acid > 2 mmol/L Fluid Resuscitation Fluid resuscitation indicated?: Yes Fluid Resuscitation ordered: Lesser volume fluid bolus ordered Amount of fluid ordered: 1,000 Reason for lesser fluid bolus:: Concern for fluid overload Sepsis Note Date exam was performed: 04/27/25 Time exam was performed: 20:00 Sepsis Attestation: Sepsis re-evaluation was performed Response to fluids: Non Fluid responsive hypotension (Blood pressure has vacillated widely, initially responded but subsequently down trended again so patient now receiving second liter bolus with blood pressure beginning to improve) Charges/Coding Visit Charges Inpatient E&M: 80952 Init Hosp L3
--- NOTE | 2025-04-27 18:24 | ED.RN ---
Pt becoming hypotensive again. Dr Mason notified. Dr Hassan in with pt and family. Dr Alexandra states Dr Hassan will manage
--- NOTE | 2025-04-27 18:41 | RAD_ITS ---
PROCEDURE: CHEST 1 VIEW (PORTABLE) 04/27/2025 REASON FOR EXAM: SHORTNESS OF BREATH TECHNIQUE: Frontal view of the chest. COMPARISON: 04/27/2025 CT FINDINGS: Right lower lobe pneumonia. Right upper lobe/hilar opacity may also reflect consolidation/neoplastic process. No pleural effusion or pneumothorax. Cardiac silhouette is within normal limits. RAD/Chest 1 View (Portable) IMPRESSION: Right lower lobe pneumonia. Right upper lobe/hilar opacity may also reflect co nsolidation/neoplastic process. Reading Location: [id number]
[2025-04-27 18:45] LABS: Mucous, Urine 0 SEEN /hpf (<or=2+)
[2025-04-27 18:50] LABS: Color, Urine Straw (Yellow); Glucose, Dipstick Normal (Normal); Ketone-Dipstick Negative (Negative); Leukocyte Esterase-Dipstick Negative /ul (Negative); Nitrite-Dipstick Negative (Negative); Occult Blood-Urine 10 /ul (Negative); Protein-Dipstick 30 mg/dl (Negative); Specific Gravity, Urine 1.005 (1.002-1.030); Urine Bilirubin Dipstick Negative (Negative)
[2025-04-27 19:01] LABS: Reflex Lactate? Y
[2025-04-27 19:05] LABS: Red Blood Cells-Urine 0-5 SEEN /hpf (0-5); Squamous Epithelial Cells - UA 0-5 SEEN /hpf (5-10)
--- NOTE | 2025-04-27 19:14 | ED.RN ---
1730 Dr Hassan down to evaluate pt. IV K, atb and N/S on Hold d/t concerns of fluid overload. Pt was having increased work of breathing and SOB. Started on bipap. Dr Hassan and Dr Mason notified.
[2025-04-27] MEDS: Vancomycin HCl 2,000 MG in 0.9% Normal Saline (500mL Bag) 500 ML 250 MG IV (19:41)
[2025-04-27] MEDS: 0.9% Normal Saline (1000mL) 1,000 ML 1000 ML IV (19:41)
--- NOTE | 2025-04-27 19:42 | ED.RN ---
This nurse updated doctor on vancomycin and K* still needing administered. Dr Mason gave verbal order to give 1L bolus normal saline via IV and give KCL and Vancomycin. Primary nurse updated.
--- NOTE | 2025-04-27 19:47 | ED.RN ---
IV bolus started at 250ml/hr due to respiratory distress resulting in BIPAP. hospitalist updated
[2025-04-27 19:51] LABS: Troponin T High Sens 4 HR 33 ng/L (<=14)
--- NOTE | 2025-04-27 21:31 | PCM.HOSP.N ---
Hospitalist Note BP has improved to 99/52 thus far, is responding to fluids, further fluids ordered. Remains 99% on 30 L/min BiPAP without any documented worsening respiratory status with the additional fluids Patient excepted on wait list at [facility] MICU by Dr. Mcguire, was advised patient would not be going overnight and asked that we call tomorrow with updates so patient can be retriaged if necessary. If patient overall stabilizes and does well may be able to cancel transfer altogether pending clinical status
--- OUTSIDE RECORDS SUMMARY | 2025-04-27 21:36 | XMS RPT_ITS | CCD ---
Author Organization [facility] CliniSyct Care Team Providers Care Binder Cutter Hand Name Role Phone Fiona Durant MD Primary Care Provider Narinder MATHUR MD, Rell Unavailable Prem RN, Christina Unavailable Dodelicia RN, Mckenzie Unavailable Unavailable Prem RN, Christina Unavailable Robert RN, Mckenzie Unavailable Unavailable Anca Huddleston MD Unavailable Fiona Durant MD Primary Care Provider Narinder MATHUR MD, Rell Unavailable Prem RN, Christina Unavailable Anca Huddleston MD Unavailable Fiona Durant MD Primary Care Provider Narinder MATHUR MD, Daesung Unavailable Prem RN, Christina Unavailable Anca Huddleston MD Unavailable Anca Huddleston MD Unavailable Sandoval Burgess MD Unavailable Prem RN, Christina Unavailable Narinder MATHUR, Rell Unavailable Fiona Durant MD Primary Care Provider Flores CREDIT AND LOAN COLLECTIONS SUPERVISOR.ETHANOL QUALITY LEADER, Bebe Unavailable Radha CREDIT AND LOAN COLLECTIONS SUPERVISOR.CHANGE MANAGEMENT DIRECTOR, Peggy Unavailable Radha CREDIT AND LOAN COLLECTIONS SUPERVISOR.CHANGE MANAGEMENT DIRECTOR, Peggy Alena Unavailable Radha CREDIT AND LOAN COLLECTIONS SUPERVISOR.CHANGE MANAGEMENT DIRECTOR, Peggy Unavailable Radha CREDIT AND LOAN COLLECTIONS SUPERVISOR.CHANGE MANAGEMENT DIRECTOR, Peggy Unavailable [phone] Radha CREDIT AND LOAN COLLECTIONS SUPERVISOR.CHANGE MANAGEMENT DIRECTOR, Peggy Unavailable [phone] Therese Burris Attending Unavail able Therese Burris Referring Unavail able Talampas, Fiona D Primary Care Unavailable Jeannie, Les Attending Unavailable Jeannie, Berea Referring Unavailable Podlogar BOAT CAPTAIN, Felicia Primary Care Unavailable Therese Burris Attending Unavail able Podlogar BOAT CAPTAIN, Felicia Referring Unavailable Talampas, Fiona D Primary Care Unavailable Therese Burris Attending Unavail able Podlogar BOAT CAPTAIN, Felicia Primary Care Unavailable Talampas, Fiona D Referring Unavailable Jeannie, Berea Attending Unavailable Talampas, Fiona D Primary Care Unavailable Therese Burris Attending Unavail able Podlogar BOAT CAPTAIN, Felicia Referring Unavailable Talampas, Fiona D Primary Care Unavailable Flores CREDIT AND LOAN COLLECTIONS SUPERVISOR.ETHANOL QUALITY LEADER, Bebe Unavailable [phone] SANDOVAL BURGESS Referring Unavailable TALAMPAS, FIONA D Primary Care Unavailable SANDOVAL BURGESS Referring Unavailable TALAMPAS, FIONA D Primary Care Unavailable SANDOVAL BURGESS Referring Unavailable TALAMPAS, FIONA D Primary Care Unavailable SANDOVAL BURGESS Referring Unavailable TALAMPAS, FIONA D Primary Care Unavailable SANDOVAL BURGESS Referring Unavailable TALAMPAS, FIONA D Primary Care Unavailable SANDOVAL BURGESS Referring Unavailable TALAMPAS, FIONA D Primary Care Unavailable TALAMPAS, FIONA D Primary Care Unavailable SANDOVAL BURGESS Attending Unavailable ANCA HUDDLESTON Referring Unavailable TALAMPAS, FIONA D Primary Care Unavailable ANCA HUDDLESTON Referring Unavailable TALAMPAS, FIONA D Primary Care Unavailable FLORESITA CARBAJAL Attending Unavailable ANCA HUDDLESTON Referring Unavailable TALAMPAS, FIONA D Primary Care Unavailable ANCA HUDDLESTON Referring Unavailable TALAMPAS, FIONA D Primary Care Unavailable SANDOVAL BURGESS Referring Unavailable TALAMPAS, FIONA D Primary Care Unavailable TALAMPAS, FIONA D Attending Unavailable TALAMPAS, FIONA D Primary Care Unavailable TALAMPAS, FIONA D Primary Care Unavailable SANDOVAL BURGESS Attending Unavailable TALAMPAS, FIONA D Primary Care Unavailable TALAMPAS, FIONA D Primary Care Unavailable GEORGINA MORGAN Attending Unavailable TALAMPAS, FIONA D Primary Care Unavailable FLORESITA CARBAJAL Attending Unavailable TALAMPAS, FIONA D Attending Unavailable TALAMPAS, FIONA D Primary Care Unavailable TALAMPAS, FIONA D Primary Care Unavailable FLORESITA CARBAJAL Referring Unavailable TALAMPAS, FIONA D Primary Care Unavailable ANCA HUDDLESTON Referring Unavailable TALAMPAS, FIONA D Primary Care Unavailable SANDOVAL BURGESS Attending Unavailable ANCA HUDDLESTON Referring Unavailable TALAMPAS, FIONA D Primary Care Unavailable ANCA HUDDLESTON Referring Unavailable TALAMPAS, FIONA D Attending Unavailable TALAMPAS, FIONA D Primary Care Unavailable TALAMPAS, FIONA D Primary Care Unavailable GEORGINA MORGAN Attending Unavailable TALAMPAS, FIONA D Primary Care Unavailable TALAMPAS, FIONA D Primary Care Unavailable SANDOVAL BURGESS Referring Unavailable TALAMPAS, FIONA D Primary Care Unavailable ANCA HUDDLESTON Referring Unavailable TALAMPAS, FIONA D Primary Care Unavailable SANDOVAL BURGESS Referring Unavailable TALAMPAS, FIONA D Primary Care Unavailable SANDOVAL BURGESS Attending Unavailable TALAMPAS, FIONA D Primary Care Unavailable GEORGINA MORGAN Attending Unavailable TALAMPAS, FIONA D Primary Care Unavailable EDITH WILLIS Referring Unavailable TALAMPAS, FIONA D Primary Care Unavailable SANDOVAL BURGESS Attending Unavailable TALAMPAS, FIONA D Primary Care Unavailable TALAMPAS, FIONA D Primary Care Unavailable TALAMPAS, FIONA D Primary Care Unavailable ANCA HUDDLESTON Referring Unavailable TALAMPAS, FIONA D Primary Care Unavailable ANCA HUDDLESTON Referring Unavailable CARRIE PRECIADO Attending Unavailable TALAMPAS, FIONA D Primary Care Unavailable LUCIA SEE-JUAN Admitting Unavailable LUCIA, SEE-JUAN Attending Unavailable TALAMPAS, FIONA D Primary Care Unavailable SANDOVAL BURGESS Attending Unavailable TALAMPAS, FIONA D Primary Care Unavailable SALVADOR DAVID Attending Unavailable TALAMPAS, FIONA D Primary Care Unavailable TALAMPAS, FIONA D Primary Care Unavailable SANDOVAL BURGESS Referring Unavailable TALAMPAS, FIONA D Primary Care Unavailable TALAMPAS, FIONA D Primary Care Unavailable TALAMPAS, FIONA D Primary Care Unavailable SANDOVAL BURGESS Referring Unavailable TALAMPAS, FIONA D Primary Care Unavailable SANDOVAL BURGESS Referring Unavailable TALAMPAS, FIONA D Attending Unavailable TALAMPAS, FIONA D Primary Care Unavailable TALAMPAS, FIONA D Primary Care Unavailable ANCA HUDDLESTON Referring Unavailable TALAMPAS, FIONA D Primary Care Unavailable ANCA HUDDLESTON Referring Unavailable TALAMPAS, FIONA D Primary Care Unavailable ANCA HUDDLESTON Referring Unavailable TALAMPAS, FIONA D Primary Care Unavailable TALAMPAS, FIONA D Primary Care Unavailable SANDOVAL BURGESS Attending Unavailable TALAMPAS, FIONA D Primary Care Unavailable TALAMPAS, FIONA D Primary Care Unavailable SANDOVAL BURGESS Referring Unavailable TALAMPAS, FIONA D Primary Care Unavailable TALAMPAS, FIONA D Primary Care Unavailable CARRIE PRECIADO Attending Unavailable TALAMPAS, FIONA D Primary Care Unavailable SANDOVAL BURGESS Referring Unavailable TALAMPAS, FIONA D Primary Care Unavailable TALAMPAS, FIONA D Primary Care Unavailable SANDOVAL BURGESS Attending Unavailable TALAMPAS, FIONA D Primary Care Unavailable Allergies Allergy Classification Reported Allergen(s) Allergy Type Date of Onset Reaction(s) Facility Amoxicillin / Clavulanate (3 sources) Amoxicillin / Clavulanate Drug Allergy 09-11-2005 [facility] Work Phone: Penicillins (antibiotic) (3 sources) Penicillins Drug Allergy 11-20-2012 [facility] (20 sources) Amoxicillin / Clavulanate; Translations: [AMOXICILLIN-POT CLAVULANATE] Drug Allergy 09-11-2005 [facility] Work Phone: (20 sources) Penicillins; Translations: [PENICILLINS] Drug Allergy 11-20-2012 [facility] Work Phone: (20 sources) Penicillins Drug Allergy 11-20-2012 [facility] Work Phone: (20 sources) Penicillins Drug Allergy 11-20-2012 [facility] (1 source) Amoxicillin Drug Allergy 01-29-2025 [facility] (1 source) Penicillins Drug allergy (disorder) 01-29-2025 [facility] (1 source) Potassium Drug Allergy 01-29-2025 [facility] Medications Current Medications Medication Drug Class(es) Dates Sig (Normalized) Sig (Original) [id number] 200 actuat albuterol 0.09 mg/actuat metered dose inhaler (20 sources) beta2-Adrenergic Agonist Start: 06-25-2023 End: 02-25-2025 take 2 puff(s) by inhalation every four hours as needed for wheezing albuterol HFA (VENTOLIN HFA) 90 mcg/actuation inhaler Inhale 2 Puffs as instructed every 4 hours as needed for Wheezing/Shortnes s of Breath. Do not replace with ProAir. 18 g 11 02/25/2025 Active Start: 12-06-2021 End: 06-23-2023 take 2 puff(s) by inhalation every four hours as needed albuterol HFA (VENTOLIN HFA) 90 mcg/actuation inhaler Indications: Moderate persistent asthma without complication Inhale 2 Puffs as instructed every 4 hours as needed. 18 g 5 07/04/2022 01/25/2023 Discontinued (Duplicate Entry) Start: 10-27-2019 End: 02-20-2024 albuterol (PROVENTIL) 2.5 mg /3 mL (0.083 %) nebulizer solution Indications: COPD with exacerbation (HCC) Use 3 mL via nebulizer every 6 hours as needed for wheezing/shortness of breath. 1 vial contains 3 ml. 90 mL 1 02/20/2024 Active Comment on above: Use 3 mL via nebuliz er every 6 hours as needed for Wheezing/Shortness of Breath. 1 vial contains 3 ml. Inhale 2 Puffs as in structed every 4 hours as needed. Inhale 2 Puffs as in structed every 4 hours as needed for Wheezing/Shortness of Breath. Do not replace with ProAir. aluminum hydroxide 40 mg/ml / magnesium hydroxide 40 mg/ml / simethicone 4 mg/ml oral suspension (20 sources) Start: 10-24-19 End: 02-20-20 24 take 15 mL by mouth every six hours as needed aluminum-magnesium hydroxide-simethic one 200-200-20 mg/5 mL suspension Take 15 mL by mouth every 6 hours as needed. 02/20/2024 Active Comment on above: Take 15 mL by mouth every 6 hours as needed. aspirin 81 mg delayed release oral tablet (20 sources) Platelet Aggregation Inhibitor, Nonsteroidal Anti-inflammatory Drug Start: 01-25-20 End: 12-01-19 25 take 1 tablet by mouth once daily aspirin, enteric coated (ASPIRIN, ENTERIC COATED) 81 mg EC tablet Take 1 tablet by mouth once daily. 30 tablet 11 12/01/2024 Active Comment on above: Take 81 mg by mouth once daily. Take 1 tablet by serjio th once daily. benzonatate 100 mg oral capsule (20 sources) Non-narcotic Antitussive Start: 03-18-20 take 1 capsule by mouth every eight hours as needed benzonatate (TESSALON PERLE) 100 mg capsule Take 1 capsule by mouth three times a day as needed. 90 capsule 2 03/18/2025 Active Start: 04-14-2024 End: 12-01-2024 benzonatate (TESSALON PERLE) 100 mg capsule Indications: Acute bronchitis with chronic obstructive pulmonary disease (COPD) (HCC) Take 2 capsules by mouth three times a day as needed for cough. Take 1-3 capsules by mouth every 6-8 hours as needed. 90 capsule 2 12/01/2024 Active Start: 02-01-2023 End: 04-11-2024 benzonatate (TESSALON PERLE) 100 mg capsule Indications: COPD with exacerbation (HCC) Take 2 capsules by mouth three times a day as needed for cough. Take 1-3 capsules by mouth every 6-8 hours as needed. 90 capsule 2 11/28/2023 Active Start: 01-25-2023 End: 02-01-2023 take 1 capsule by mouth every eight hours as needed benzonatate (TESSALON PERLE) 100 mg capsule Take 1 capsule by mouth three times daily as needed. Take 1-3 capsules by mouth every 6-8 hours as needed. 30 capsule 0 01/25/2023 02/01/2023 Discontinued End: 01-25-2023 benzonatate (TESSALON PERLE) 100 mg capsule Take 1-3 capsules by mouth every 6-8 hours as needed. 0 01/25/2023 Discontinued Comment on above: Take 1-3 capsules by mouth every 6-8 hours as needed. Take 1 capsule by mo uth three times daily as needed. Take 1-3 capsules by mouth every 6-8 hours as needed. Take 2 capsules by m outh three times daily as needed for cough. Take 1-3 capsules by mouth every 6-8 hours as needed. Take 2 capsules by m outh three times a day as needed for cough. Take 1-3 capsules by mouth every 6-8 hours as needed. carboxymethylcellulose sodium 5 mg/ml ophthalmic solution (20 sources) Star t: 02-06 25 carboxymethylcellulose (REFRESH) 0.5 % drop Use 1 drop in both eyes as needed (dry eyes). 30 mL 5 02/25/2025 Active cyclobenzaprine hydrochloride 10 mg oral tablet (20 sources) Muscle Relaxant take 1 tablet by mouth every twelve hours as needed cyclobenzaprine (FLEXERIL) 10 mg tablet Take 10 mg by mouth twice daily as needed for Muscle Spasm. Active Comment on above: Take 10 mg by mouth twice daily as needed for Muscle Spasm. diclofenac sodium 0.01 mg/mg topical gel (20 sources) Nonsteroidal Anti-inflammator y Drug Star t: 10-08 End: 02-05 24 apply 2 g topically four times daily as needed diclofenac (VOLTAREN) 1 % topical gel Indications: Right hip pain Apply 2 g to affected area four times a day as needed (upper extremity joint(s)). 100 g 1 02/20/2024 Active Start: 09-22-2021 End: 10-24-2022 apply 4 g topically four times daily as needed diclofenac (VOLTAREN) 1 % topical gel Indications: Right hip pain Apply 4 g to affected area four times daily as needed (right hip and as directed). 100 g 0 09/22/2021 10/24/2022 Discontinued Comment on above: Apply 4 g to affecte d area four times daily as needed (right hip and as directed). Apply 2 g to affecte d area four times daily as needed (upper extremity joint(s)). doxycycline hyclate 100 mg oral tablet (3 sources) Tetracycline-class Drug Start: End: take 1 tablet by mouth twice daily doxycycline (VIBRA-TABS) 100 mg tablet Indications: Acute recurrent sinusitis, unspecified location , COPD with exacerbation (HCC) Take 1 tablet by mouth two times a day for 10 days. 20 tablet 10/05/2024 10/15/2024 Active Start: 08-01-2023 End: 08-08-2023 take 1 tablet by mouth twice daily doxycycline (VIBRA-TABS) 100 mg tablet Take 1 tablet by mouth two times a day for 7 days. 14 tablet 0 08/01/2023 08/08/2023 Comment on above: Take 1 tablet by serjio th two times a day for 7 days. enteric contrast (will be provided with radiology test) (20 sources) Start: 03-27-2023 End: 03-28-2023 enteric contrast (will be provided with radiology test) Indications: Malignant neoplasm of unspecified part of unspecified bronchus or lung (HCC) For CT CHESTABD/PEL W IVCON Routine order Administer, As Directed One Time Only, via Oral, Rectal, both Oral and Rectal, Enteric Tube, Stoma or Indwelling Catheter, Enteric Contrast as designated per enteric contrast guidelines 1 Each 0 03/27/2023 03/28/2023 Active Start: 10-16-2022 End: 01-25-2023 enteric contrast (will be pr ovided with radiology test) Indications: Cancer of trachea, bronchus, and lung (HCC) , Bone metastases , Examination of participant in clinical trial For CT ABD/PEL W IVCON Routine order Administer, As Directed One Time Only, via Oral, Rectal, both Oral and Rectal, Enteric Tube, Stoma or Indwelling Catheter, Enteric Contrast as designated per enteric contrast guidelines 1 Each 0 10/16/2022 01/25/2023 Discontinued Start: 10-16-[address] (will be provided with radiology test) Indications: Cancer of trachea, bronchus, and lung (HCC) , Bone metastases , Examination of participant in clinical trial For CT ABD/PEL W IVCON Routine order Administer, As Directed One Time Only, via Oral, Rectal, both Oral and Rectal, Enteric Tube, Stoma or Indwelling Catheter, Enteric Contrast as designated per enteric contrast guidelines 1 Each 0 10/16/2022 Active Start: 10-16-[address] (will be provided with radiology test) Indications: Cancer of trachea, bronchus, and lung (HCC) , Bone metastases (HCC) , Examination of participant in clinical trial For CT ABD/PEL W IVCON Routine order Administer, As Directed One Time Only, via Oral, Rectal, both Oral and Rectal, Enteric Tube, Stoma or Indwelling Catheter, Enteric Contrast as designated per enteric contrast guidelines 1 Each 0 10/16/2022 Active Start: 07-24-2022 End: 07-25-2022 enteric contrast (will be pr ovided with radiology test) Indications: Malignant neoplasm of unspecified part of unspecified bronchus or lung (HCC) For CT Chest Abdomen W IVCON order Administer, As Directed One Time Only, via Oral, Rectal, both Oral and Rectal, Enteric Tube, Stoma or Indwelling Catheter, Enteric Contrast as designated per enteric contrast guidelines 1 Each 0 07/24/2022 07/25/2022 Active Start: 04-17-2022 End: 04-18-2022 enteric contrast (will be pr ovided with radiology test) Indications: Malignant neoplasm of unspecified part of unspecified bronchus or lung (HCC) For CT Chest Abdomen W IVCON order Administer, As Directed One Time Only, via Oral, Rectal, both Oral and Rectal, Enteric Tube, Stoma or Indwelling Catheter, Enteric Contrast as designated per enteric contrast guidelines 1 Each 0 04/17/2022 04/18/2022 Start: 04-17-2022 End: 04-18-2022 enteric contrast (will be pr ovided with radiology test) Indications: Malignant neoplasm of unspecified part of unspecified bronchus or lung (HCC) For CT Chest Abdomen W IVCON order Administer, As Directed One Time Only, via Oral, Rectal, both Oral and Rectal, Enteric Tube, Stoma or Indwelling Catheter, Enteric Contrast as designated per enteric contrast guidelines 1 Each 0 04/17/2022 04/18/2022 Active Start: 01-24-2022 End: 01-25-2022 enteric contrast (will be pr ovided with radiology test) Indications: Malignant neoplasm of unspecified part of unspecified bronchus or lung (HCC) , Bone metastases (HCC) , Malignant neoplasm of abdomen (HCC) , Lung nodules For CT CHESTABD/PEL W IVCON Routine order Administer, As Directed One Time Only, via Oral, Rectal, both Oral and Rectal, Enteric Tube, Stoma or Indwelling Catheter, Enteric Contrast as designated per enteric contrast guidelines 1 Each 0 01/24/2022 01/25/2022 Active Comment on above: For CT CHESTABD/PEL W IVCON Routine order Administer, As Directed One Time Only, via Oral, Rectal, both Oral and Rectal, Enteric Tube, Stoma or Indwelling Catheter, Enteric Contrast as designated per enteric contrast guidelines For CT Chest Abdomen W IVCON order Administer, As Directed One Time Only, via Oral, Rectal, both Oral and Rectal, Enteric Tube, Stoma or Indwelling Catheter, Enteric Contrast as designated per enteric contrast guidelines For CT ABD/PEL W IVC ON Routine order Administer, As Directed One Time Only, via Oral, Rectal, both Oral and Rectal, Enteric Tube, Stoma or Indwelling Catheter, Enteric Contrast as designated per enteric contrast guidelines erythromycin 0.005 mg/mg ophthalmic ointment (1 source) Macrolide, Macrolide Antimicrobial Start: 04-16-20 End: 04-23-20 erythromycin (ROMYCIN) 5 mg/gram (0.5 %) ophthalmic ointment Use 1 application in the left eye twice daily for 7 days. 3.5 g 0 04/16/2023 04/23/2023 Active Comment on above: Use 1 application in the left eye twice daily for 7 days. esomeprazole 20 mg delayed release oral capsule (20 sources) Proton Pump Inhibitor Start: 02-20-20 24 End: 02-26-20 take 1 capsule by mouth once daily before breakfast esomeprazole (NEXIUM) 20 mg capsule Take 1 capsule by mouth daily before breakfast. 1/2 hr before meal. 90 capsule 3 02/25/2025 Active fluticasone propionate 0.05 mg/actuat metered dose nasal spray (20 sources) Corticosteroid Start: 09-16-20 18 End: 02-26-20 take 2 spray(s) by mouth once daily fluticasone (FLONASE) 50 mcg/actuation nasal spray Use 2 sprays in each nostril once daily. Rinse mouth after use 16 g 5 02/25/2025 Active Comment on above: Use 2 Sprays in each nostril once daily. Rinse mouth after use. Use 2 Sprays in each nostril once daily. Rinse mouth after use fluticasone / salmeterol (20 sources) Corticosteroid, beta2-Adrenergic Agonist Start: 09-11-20 take 1 puff(s) by mouth twice daily fluticasone-salmete rol (ADVAIR DISKUS) 500-50 mcg/dose dsdv Inhale 1 Puff as instructed two times a day. RINSE AND GARGLE MOUTH WITH WATER AFTER EACH USE. 1 Each 09/11/2024 Active Start: 02-20-2024 End: 09-11-2024 take 1 puff(s) by mouth twice daily fluticasone-salmeterol (ADVAIR DISKUS) 250-50 mcg/dose inhaler Indications: Stage 3 severe COPD by GOLD classification (HCC) Inhale 1 Puff as instructed two times a day. RINSE AND GARGLE MOUTH WITH WATER AFTER EACH USE. 1 Each 02/20/2024 09/11/2024 Discontinued (Changing Therapy/Dosage Form) Start: 02-20-2024 take 1 puff(s) by mo uth twice daily fluticasone-salmeterol (ADVAIR DISKUS) 250-50 mcg/dose inhaler Indications: Stage 3 severe COPD by GOLD classification (HCC) Inhale 1 Puff as instructed two times a day. RINSE AND GARGLE MOUTH WITH WATER AFTER EACH USE. 1 Each 02/20/2024 Active Start: 10-05-2023 End: 02-20-2024 take 1 puff(s) by mouth twice daily fluticasone-salmeterol (ADVAIR DISKUS) 250-50 mcg/dose inhaler Indications: Stage 3 severe COPD by GOLD classification (HCC) Inhale 1 Puff as instructed two times a day. RINSE AND GARGLE MOUTH WITH WATER AFTER EACH USE. 1 Each 10/05/2023 02/20/2024 Discontinued Start: 10-05-2023 take 1 puff(s) by mo uth twice daily fluticasone-salmeterol (ADVAIR DISKUS) 250-50 mcg/dose inhaler Indications: Stage 3 severe COPD by GOLD classification (HCC) Inhale 1 Puff as instructed two times a day. RINSE AND GARGLE MOUTH WITH WATER AFTER EACH USE. 1 Each 10/05/2023 Active Start: 06-25-2023 take 1 puff(s) by mo uth twice daily fluticasone-salmeterol (ADVAIR DISKUS) 250-50 mcg/dose inhaler Inhale 1 Puff as instructed twice daily. RINSE AND GARGLE MOUTH WITH WATER AFTER EACH USE. 1 Each 5 06/25/2023 Active Start: 03-21-2023 End: 06-23-2023 take 1 puff(s) by mouth twice daily fluticasone-salmeterol (ADVAIR DISKUS) 250-50 mcg/dose inhaler Inhale 1 Puff as instructed twice daily. RINSE AND GARGLE MOUTH WITH WATER AFTER EACH USE. 1 Each 5 03/21/2023 06/23/2023 Discontinued Start: 03-21-2023 take 1 puff(s) by mo [facility] twice daily fluticasone-salmeterol (ADVAIR DISKUS) 250-50 mcg/dose inhaler Inhale 1 Puff as instructed twice daily. RINSE AND GARGLE MOUTH WITH WATER AFTER EACH USE. 1 Each 5 03/21/2023 Active Comment on above: Inhale 1 Puff as ins tructed twice daily. RINSE AND GARGLE MOUTH WITH WATER AFTER EACH USE. Inhale 1 Puff as ins tructed two times a day. RINSE AND GARGLE MOUTH WITH WATER AFTER EACH USE. 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 30 tablet 3 01/13/2025 Active furosemide 20 mg oral tablet (20 sources) Loop Diuretic Start: 04-14-2024 End: 02-25-2025 take 1-2 tablets by mouth once daily as needed furosemide (LASIX) 20 mg tablet Take 1-2 tablets by mouth once daily as needed. 60 tablet 1 02/25/2025 Active Start: 08-15-2023 End: 04-11-2024 take 1-2 tablets by mouth once daily as needed furosemide (LASIX) 20 mg tablet Take 1-2 tablets by mouth once daily as needed. 60 tablet 1 11/28/2023 Active Comment on above: Take 1-2 tablets by mouth once daily as needed. hydroCHLOROthiazide 25 mg oral tablet (20 sources) Thiazide Diuretic Start: 024 End: 025 take 1 tablet by mouth once daily hydroCHLOROthiazide 25 mg tablet Take 1 tablet by mouth once daily. 30 tablet 11 02/25/2025 Active Start: 06-25-2023 [facility] once daily as needed for edema hydroCHLOROthiazide 25 mg tablet Take 1 tablet by mouth once daily as needed (fluid retention/leg swelling). 30 tablet 3 06/25/2023 Active Start: 09-22-2021 End: 06-23-2023 take 1 tablet by mouth once daily as needed for edema hydroCHLOROthiazide (HYDRODIURIL, ESIDRIX) 25 mg tablet Take 1 tablet by mouth once daily as needed (fluid retention/leg swelling). 30 tablet 3 07/19/2022 02/01/2023 Discontinued Comment on above: Take 1 tablet by serjoi th once daily as needed (fluid retention/leg swelling). ibuprofen 800 mg oral tablet (20 sources) Nonsteroidal Anti-inflammatory Drug Start: 07-05-20 End: 02-26-20 take 1 tablet by mouth every eight hours as needed ibuprofen (MOTRIN) 800 mg tablet Take 1 tablet by mouth every 8 hours as needed for pain. 60 tablet 2 02/25/2025 Active Comment on above: Take 1 tablet by serjio th every 8 hours as needed for fever (specify). Does not take in same day as when takes naproxen Take 1 tablet by serjio th every 8 hours as needed for Pain. (not for migraines and not in same day as naprosyn) Take with food. levoFLOXacin 500 mg oral tablet (7 sources) Quinolone Antimicrobial Start: 04-24-20 End: 05-01-20 take 1 tablet by mouth once daily levoFLOXacin (LEVAQUIN) 500 mg tablet Take 1 tablet by mouth once daily for 7 days. 7 tablet 04/24/2025 05/01/2025 Active Start: 02-01-2023 End: 02-08-2023 take 1 tablet by mouth once daily at mealtime levoFLOXacin (LEVAQUIN) 750 mg tablet Indications: Pulmonary emphysema, unspecified emphysema type (HCC) , Simple chronic bronchitis (HCC) , COPD with exacerbation (HCC) Take 1 tablet by mouth once daily for 7 days. Take with food 7 tablet 0 02/01/2023 02/08/2023 Active Start: 01-25-2023 End: 02-01-2023 take 1 tablet by mouth once daily levoFLOXacin (LEVAQUIN) 500 mg tablet Take 1 tablet by mouth once daily for 7 days. 10 tablet 0 01/25/2023 02/01/2023 Discontinued Comment on above: Take 1 tablet by serjio th once daily for 7 days. Take 1 tablet by serjio th once daily for 7 days. Take with food losartan potassium 25 mg oral tablet (20 sources) Angiotensin 2 Receptor Marybeth Start: 04-14-2024 End: 02-25-2025 take 1 tablet by mouth once daily losartan (COZAAR) 25 mg tablet Indications: History of [place] (myocardial infarction) Take 1 tablet by mouth once daily. 90 tablet 3 02/25/2025 Active Start: 06-25-2023 End: 04-11-2024 take 1 tablet by mouth once daily losartan (COZAAR) 25 mg tablet Indications: History of [place] (myocardial infarction) Take 1 tablet by mouth once daily. 90 tablet 3 06/25/2023 04/11/2024 Discontinued Start: 10-24-2022 End: 06-23-2023 take 1 tablet by mouth once daily losartan (COZAAR) 25 mg tablet Indications: History of [place] (myocardial infarction) Take 1 tablet by mouth once daily. 90 tablet 3 10/24/2022 06/23/2023 Discontinued Comment on above: Take 1 tablet by serjio th once daily. multivitamin tablet (20 sources) Start: 07-09-2024 take 1 tablet by mouth once daily multivitamin tablet Take 1 tablet by mouth once daily. 30 tablet 11 07/09/2024 Active Start: 06-25-2023 End: 07-08-2024 take 1 tablet by mouth once daily multivitamin tablet Take 1 tablet by mouth once daily. 30 tablet 11 06/25/2023 07/08/2024 Discontinued Start: 06-25-2023 take 1 tablet by serjio th once daily multivitamin tablet Take 1 tablet by mouth once daily. 30 tablet 11 06/25/2023 Active Start: 01-24-2023 End: 06-23-2023 take 1 tablet by mouth once daily multivitamin tablet Take 1 tablet by mouth once daily. 30 tablet 11 01/24/2023 06/23/2023 Discontinued Start: 01-24-2023 take 1 tablet by serjio th once daily multivitamin tablet Take 1 tablet by mouth once daily. 30 tablet 11 01/24/2023 Active Start: 12-26-2021 End: 01-23-2023 take 1 tablet by mouth once daily multivitamin tablet Take 1 tablet by mouth once daily. 30 tablet 11 12/26/2021 01/23/2023 Discontinued Start: 12-26-2021 take 1 tablet by serjio th once daily multivitamin tablet Take 1 tablet by mouth once daily. 30 tablet 11 12/26/2021 Active Comment on above: Take 1 tablet by serjio th once daily. mupirocin 20 mg/ml topical cream (3 sources) RNA Synthetase Inhibitor Antibacterial Start: 08-01-2023 End: 08-11-2023 mupirocin (BACTROBAN) 2 % cream Apply 1 application to affected area three times a day for 10 days. Location: forehead 22 g 0 08/01/2023 08/11/2023 Active Comment on above: Apply 1 application to affected area three times a day for 10 days. Location: forehead naloxone 4 mg/actuation nasal spray (NARCAN) (20 sources) Start: 04-11-2024 naloxone 4 mg/actuation nasal spray (NARCAN) Use 1 spray in one nostril as needed for overdose. May repeat every 2 to 3 min in alternating nostrils until medical assistance is available 1 Each 1 04/11/2024 Active Nebulizer (20 sources) Start: 07-11-2017 Nebulizer NEBULIZER FOR HOME USE with supplies. DX: (J45.40) Moderate persistent asthma without complication (primary encounter diagnosis) 1 Device 07/11/2017 Active Start: 07-11-2017 Nebulizer NEBU LIZER FOR HOME USE with supplies. DX: (J45.40) Moderate persistent asthma without complication (primary encounter diagnosis) 1 Device 0 07/11/2017 Active Comment on above: NEBULIZER FOR HOME U SE with supplies. DX: (J45.40) Moderate persistent asthma without complication (primary encounter diagnosis) nystatin [id number] unt/ml oral suspension (20 sources) Polyene Antifungal Start: 08-01-2023 End: 12-01-2024 nystatin (MYCOSTATIN) 100,000 unit/mL suspension Take 5 mL by mouth four times daily. 1tsp swish in mouth for several minutes, then swallow (or expectorate) 4 times daily until gone. 200 mL 12/01/2024 Active Start: 06-22-2023 End: 07-06-2023 take 2 mL by mouth four times daily nystatin (MYCOSTATIN) 100,000 unit/mL suspension Indications: Oral thrush Take 2 mL by mouth four times daily for 14 days. Swish and swallow. 112 mL 0 06/22/2023 07/06/2023 Active Start: 05-25-2023 End: 06-08-2023 nystatin (MYCOSTATIN) 100,00 0 unit/mL suspension Take 5 mL by mouth four times daily for 14 days. 1tsp swish in mouth for several minutes, then swallow (or expectorate) 4 times daily until gone. 280 mL 0 05/25/2023 06/08/2023 Active Comment on above: Take 5 mL by mouth f our times daily for 14 days. 1tsp swish in mouth for several minutes, then swallow (or expectorate) 4 times daily until gone. Take 2 mL by mouth f our times daily for 14 days. Swish and swallow. Take 5 mL by mouth f our times daily. 1tsp swish in mouth for several minutes, then swallow (or expectorate) 4 times daily until gone. polyethylene glycol 3350 54396 mg powder for oral solution (20 sources) Osmotic Laxative Start: 7 polyethylene glycol 3350 (MIRALAX) 17 gram/dose powder Indications: Constipation, unspecified constipation type Take 17 g by mouth once daily. NOT NEEDING NOW 08/29/2017 Active Comment on above: Take 17 g by mouth o nce daily. NOT NEEDING NOW potassium chloride 20 meq powder for oral solution (20 sources) Start: End: 4 take 20 mEq by mouth twice daily potassium chloride (KLOR-CON) 20 mEq packet Take 20 mEq by mouth two times a day. 60 Packet 11 09/30/2024 Active Comment on above: Take 20 mEq by mouth twice daily. predniSONE 10 mg oral tablet (20 sources) Start: 5 predniSONE (DELTASONE) 10 mg tablet Take 40 mg a day for 3 days, then 30 mg a day for 3 days, then 20 mg a day for 3 days, 10 mg a day 3 days 30 tablet 04/24/2025 Active Start: 10-05-2024 End: 10-10-2024 take 1 tablet by mouth twice daily predniSONE (DELTASONE) 20 mg tablet Indications: COPD with exacerbation (HCC) Take 1 tablet by mouth two times a day for 5 days. 10 tablet 10/05/2024 10/10/2024 Active Start: 06-06-2024 End: 10-05-2024 predniSONE (DELTASONE) 10 mg tablet Take 4 daily for three days, then 3 daily for three days, then 2 daily for three days, then one daily for three days. 30 tablet 06/06/2024 10/05/2024 Discontinued (Course of therapy completed) Start: 03-19-2023 End: 06-20-2023 predniSONE (DELTASONE) 10 mg tablet Take 4 daily for three days, then 3 daily for three days, then 2 daily for three days, then one daily for three days. 30 tablet 0 03/19/2023 06/20/2023 Discontinued (Course of therapy completed) Start: 01-25-2023 End: 02-03-2023 predniSONE (DELTASONE) 10 mg tablet Take 4 tabs daily for 3 days, then 2 tabs daily for 3 days, then 1 tab daily for 3 days with food. 21 tablet 0 01/25/2023 02/03/2023 Active Comment on above: Take 4 tabs daily fo r 3 days, then 2 tabs daily for 3 days, then 1 tab daily for 3 days with food. Take 4 daily for thr ee days, then 3 daily for three days, then 2 daily for three days, then one daily for three days. prochlorperazine 10 mg oral tablet (4 sources) Phenothiazine Start: 2024 take 1 tablet by mouth every six hours as needed prochlorperazine (COMPAZINE) 10 mg tablet Take 1 tablet by mouth every 6 hours as needed. 30 tablet 2 04/16/2025 Active promethazine hydrochloride 25 mg oral tablet (20 sources) Phenothiazine Start: 2020 End: 2024 take 1 tablet by mouth every six hours as needed for nausea promethazine (PHENERGAN) 25 mg tablet Indications: Examination of participant in clinical trial , Cancer of lower lobe of right lung (HCC) Take 1 tablet by mouth every 6 hours as needed for nausea/vomiting. 28 tablet 2 12/01/2024 Active Comment on above: Take 1 tablet by serjio th every 6 hours as needed for Nausea/Vomiting (Patient states she is using prior to Chantix dose for nausea). Take 1 tablet by serjio th every 6 hours as needed for nausea/vomiting. rizatriptan 10 mg oral tablet (20 sources) Serotonin-1b and Serotonin-1d Receptor Agonist take 1 tablet by mouth every two hours as needed rizatriptan (MAXALT) 10 mg tablet Take 10 mg by mouth as needed. May repeat in 2 hours if needed Active Comment on above: Take 10 mg by mouth as needed. May repeat in 2 hours if needed rosuvastatin calcium 40 mg oral tablet (20 sources) HMG-CoA Reductase Inhibitor Start: 2020 End: 2024 take 1 tablet by mouth once daily rosuvastatin (CRESTOR) 40 mg tablet Indications: Coronary artery disease involving cheesh-na coronary artery of cheesh-na heart without angina pectoris Take 1 tablet by mouth once daily. 90 tablet 3 02/25/2025 Active Comment on above: Take 1 tablet by serjio th once daily. sennosides, chcf 8.6 mg oral tablet (20 sources) Start: 2020 End: 2022 take 2 tablets by mouth twice daily senna (SENOKOT) 8.6 mg tab Take 2 tablets by mouth twice daily. 60 tablet 2 10/24/2022 Active Comment on above: Take 2 tablets by mo ut twice daily. simethicone 80 mg chewable tablet (20 sources) Start: 2017 End: 2023 take 1 tablet by mouth every six hours as needed simethicone, chewable ([place]-ACID GAS RELIEF,SIMETHICON,) 80 mg chewable tablet Indications: Irritable bowel syndrome with both constipation and diarrhea Take 1 tablet by mouth every 6 hours as needed. 02/20/2024 Active Comment on above: Take 1 tablet by serjio th every 6 hours as needed. traZODone hydrochloride 50 mg oral tablet (20 sources) Serotonin Reuptake Inhibitor Start: 2020 End: 2023 take 1 tablet by mouth at bedtime as needed traZODone (DESYREL) 50 mg tablet Indications: Fibromyalgia Take 1 tablet by mouth at bedtime as needed. 30 tablet 11 02/20/2024 Active Comment on above: Take 1 tablet by serjio th at bedtime as needed. 7 actuat umeclidinium 0.0625 mg/actuat dry powder inhaler (20 sources) Anticholinergic Start: 2023 End: 2023 take 1 puff(s) by inhalation once daily umeclidinium (INCRUSE ELLIPTA) 62.5 mcg/actuation inhaler Inhale 1 Puff as instructed once daily. 1 Each 09/11/2024 Active Start: 10-05-2023 End: 04-11-2024 take 1 puff(s) by inhalation once daily umeclidinium (INCRUSE ELLIPTA) 62.5 mcg/actuation inhaler Inhale 1 Puff as instructed once daily. 1 Each 5 10/05/2023 04/11/2024 Discontinued Start: 03-21-2023 take 1 puff(s) by in halation once daily umeclidinium (INCRUSE ELLIPTA) 62.5 mcg/actuation inhaler Inhale 1 Puff as instructed once daily. 1 Each 5 03/21/2023 Active Comment on above: Inhale 1 Puff as ins tructed once daily. 24 hr verapamil hydrochloride 120 mg extended release oral capsule (20 sources) Calcium Channel Marybeth Start: End: take 1 capsule by mouth once daily verapamil ER (VERELAN) 120 mg 24 hr capsule Take 1 capsule by mouth once daily. 90 capsule 3 02/25/2025 Active Start: 07-19-2022 End: 06-23-2023 take 1 capsule by mouth once daily verapamil ER (VERELAN) 120 mg 24 hr capsule Take 1 capsule by mouth once daily. 90 capsule 3 07/19/2022 06/23/2023 Discontinued Start: 10-10-2019 End: 07-19-2022 verapamil ER (VERELAN) 120 m g 24 hr capsule Verapamil Verapamil Hcl Active 0 MG DAILY October 10, 2019 7:53am 10-10-2019 [facility] ([id number]) 0 10/10/2019 07/19/2022 Discontinued Comment on above: Verapamil Verapamil Hcl Active 0 MG DAILY October 10, 2019 7:53am 10-10-2019 [facility] ([id number]) Take 1 capsule by [facility] once daily. Completed/Discontinued Medications Medication Drug Class(es) Dates Sig (Normalized) Sig (Original) acetaminophen 300 mg / codeine phosphate 30 mg oral tablet (13 sources) Opioid Agonist Start: 02-25-2025 End: 03-03-2025 acetaminophen-code ine (TYLENOL-CODEINE #3) 300-30 mg per tablet Indications: Cough Take every 4 hours as needed for severe cough 42 tablet 02/25/2025 03/03/2025 Start: 02-20-2024 End: 02-26-2024 acetaminophen-codeine (TYLEN OL-CODEINE #3) 300-30 mg per tablet Indications: Cough Take every 4 hours as needed for severe cough 42 tablet 0 02/20/2024 02/26/2024 Start: 11-28-2023 End: 12-04-2023 acetaminophen-codeine (TYLEN OL-CODEINE #3) 300-30 mg per tablet Indications: Cough Take every 4 hours as needed for severe cough 42 tablet 0 11/28/2023 12/04/2023 Start: 08-15-2023 End: 08-21-2023 acetaminophen-codeine (TYLEN OL-CODEINE #3) 300-30 mg per tablet Indications: Cough Take every 4 hours as needed for severe cough 42 tablet 0 08/15/2023 08/21/2023 Active Start: 07-19-2022 End: 07-26-2022 acetaminophen-codeine (TYLEN OL-CODEINE #3) 300-30 mg per tablet Indications: Cough Take every 4 hours as needed for severe cough (will call when needs refill since still has some left from January prescription) 0 07/19/2022 07/26/2022 Start: 04-17-2022 End: 04-24-2022 acetaminophen-codeine (TYLEN OL-CODEINE #3) 300-30 mg per tablet Indications: Cough Take every 4 hours as needed for severe cough 42 tablet 0 04/17/2022 04/24/2022 Start: 12-26-2021 End: 01-02-2022 acetaminophen-codeine (TYLEN OL-CODEINE #3) 300-30 mg per tablet Indications: Cough Take every 4 hours as needed for severe cough 42 tablet 0 12/26/2021 01/02/2022 Comment on above: Take every 4 hours a s needed for severe cough Take every 4 hours a s needed for severe cough (will call when needs refill since still has some left from January prescription) acetaminophen 325 mg / oxyCODONE hydrochloride 5 mg oral tablet (20 sources) Opioid Agonist Start: End: 2 take 1 tablet by mouth every twenty-four hours as needed oxyCODONE-acetaminoph en (PERCOCET) 5-325 mg tablet Take 1 tablet by mouth at bedtime as needed. PALLIATIVE PATIENT 0 08/05/2021 05/08/2022 Discontinued Start: 08-05-2021 take 1 tablet by serjio th every four hours as needed oxyCODONE-acetaminophen (PERCOCET) 5-325 mg tablet Take 1 tablet by mouth every 4 hours as needed. PALLIATIVE PATIENT 0 08/05/2021 Active take 1 tablet by serjio th every eight hours as needed oxyCODONE-acetaminophen (PERCOCET) 7.5-3 25 mg tablet Take 1 tablet by mouth every 8 hours as needed for pain. Active Comment on above: Take 1 tablet by serjio th every 4 hours as needed. PALLIATIVE PATIENT Take 1 tablet by serjio th every 8 hours as needed for pain. Take 1 tablet by serjio th at bedtime as needed. PALLIATIVE PATIENT azithromycin 250 mg oral tablet (20 sources) Macrolide Antimicrobial Start: 11-14-2024 End: 01-13-2025 azithromycin (ZITHROMAX Z-TU) 250 mg tablet TAKE 2 TABS ON THE FIRST DAY, THEN ONE TAB DAILY FOR 4 DAYS. 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 TAKE 2 TABS ON THE FIRST DAY, THEN ONE TAB DAILY FOR 4 DAYS. 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 TAKE 2 TABS ON THE FIRST DAY, THEN ONE TAB DAILY FOR 4 DAYS. 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 TAKE 2 TABS ON THE FIRST DAY, THEN ONE TAB DAILY FOR 4 DAYS. 7 tablet 0 05/11/2022 05/18/2022 Active Comment on above: Take 1 tablet by [facility] once daily for 7 days. TAKE 2 TABS ON THE FIRST DAY, THEN ONE TAB DAILY FOR 4 DAYS. CARBOplatin 643.5 mg in NaCl 0.9% 339.35 mL (PARAPLATIN) (1 source) Start: 10-30-2024 End: 10-30-2024 643.5 mg (Target AUC = 5), INTRAVENOUS, Administer over 30 Minutes, ONCE, 1 dose, On Yane 10/30/24 at 1030, exp 0930 10/31/24 (room temp) Hazardous Chemotherapy Drug: Use appropriate PPE. Antineoplastic Irritant. 1 ml dexamethasone phosphate 10 mg/ml injection (4 sources) Corticosteroid Start: 02-05-2025 End: 02-05-2025 10 mg, INTRAVENOUS, ONCE, 1 dose, On Yane 02/05/25 at 1330, Administer over 5 minutes. Start: 01-14-2025 End: 01-14-2025 10 mg, INTRAVENOUS, ONCE, 1 dose, On Sun01/14/25 at 1230, Administer over 5 minutes. Start: 12-25-2024 End: 12-25-2024 10 mg, INTRAVENOUS, ONCE, 1 dose, On Yane 12/25/24 at 1330, Administer over 5 minutes. Start: 10-30-2024 End: 10-30-2024 10 mg, INTRAVENOUS, ONCE, 1 dose, On Yane 10/30/24 at 0930, Administer over 5 minutes. docusate sodium 100 mg oral capsule (20 sources) Start: 04-19-2016 End: 02-20-2024 take 1 capsule by mouth once daily as needed docusate sodium (COLACE) 100 mg capsule Indications: Constipation, unspecified constipation type Take 1 capsule by mouth once daily as needed. 30 capsule 5 04/19/2016 02/20/2024 Discontinued Comment on above: Take 1 capsule by [facility] once daily as needed. 30 actuat fluticasone furoate 0.1 mg/actuat / umeclidinium 0.0625 mg/actuat / vilanterol 0.025 mg/actuat dry powder inhaler (17 sources) Anticholinergic, Corticosteroid, beta2-Adrenergic Agonist Start: 03-19-2023 End: 06-25-2023 take 1 puff(s) by inhalation once daily fluticasone-umeclid in-vilanter (TRELEGY ELLIPTA) 100-62.5-25 mcg inhalation powder Indications: Stage 3 severe COPD by GOLD classification (HCC) Inhale 1 Puff as instructed once daily. 1 Each 06/20/2023 06/25/2023 Discontinued Comment on above: Inhale 1 Puff as ins tructed once daily. fosaprepitant 150 mg in NaCl 0.9% 250 mL (EMEND) (4 sources) Start: 02-05-2025 End: 02-05-2025 150 mg, INTRAVENOUS, Administer over 30 Minutes, ONCE, 1 dose, On Sun02/05/25 at 1330, Approximate Total Volume = 280 mL Refrigerate Start: 01-14-2025 End: 01-14-2025 150 mg, INTRAVENOUS, Adminis ter over 30 Minutes, ONCE, 1 dose, On Sun01/14/25 at 1230, Approximate Total Volume = 280 mL Refrigerate Start: 12-25-2024 End: 12-25-2024 150 mg, INTRAVENOUS, Adminis ter over 30 Minutes, ONCE, 1 dose, On Sun12/25/24 at 1330, Refrigerate Start: 10-30-2024 End: 10-30-2024 150 mg, INTRAVENOUS, Adminis ter over 30 Minutes, ONCE, 1 dose, On Sun10/30/24 at 0930, Approximate Total Volume = 280 mL Refrigerate iv contrast (will be provided with radiology test) (20 sources) Start: 02-24-2025 End: 02-25-2025 inject 1 dose intravenously once iv contrast (will be provided with radiology test) Indications: Vision changes , 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 Discontinue saline lock post exam. If Pt. has a central line or IVAD, may access for administration according to line specific nursing protocol. Once exam is complete flush line and de-access according to line specific nursing protocol in the CT contrast administration guidelines link. 1 each 02/24/2025 02/25/2025 Start: 11-19-2024 End: 11-20-2024 iv contrast (will be provide d with radiology test) Indications: Dyspnea and respiratory abnormalities CT Chest PE -Inject, intravenously, once for 1 dose.No IV access, insert saline lock prior to the beginning of sedation, infusion, injection of imaging exam. Discontinue saline lock post exam. If Pt. has a central line or IVAD, may access for administration according to line specific nursing protocol. Once exam is complete flush line and de-access according to line specific nursing protocol in the CT contrast administration guidelines link. 1 Each 11/19/2024 11/20/2024 Active Start: 03-27-2023 End: 03-28-2023 iv contrast (will be provide d with radiology test) Indications: Malignant neoplasm of unspecified part of unspecified bronchus or lung (HCC) CT Chest ABD/PEL-Inject, intravenously, once for 1 dose.No IV access, insert saline lock prior to the beginning of sedation, infusion, injection of imaging exam. Discontinue saline lock post exam. If Pt. has a central line or IVAD, may access for administration according to line specific nursing protocol. Once exam is complete flush line and de-access according to line specific nursing protocol in the CT contrast administration guidelines link. 1 Each 0 03/27/2023 03/28/2023 Active Start: 01-09-2023 End: 01-10-2023 iv contrast (will be provide d with radiology test) CT ABD/PEL -Inject, intravenously, once for 1 dose.No IV access, insert saline lock prior to the beginning of sedation, infusion, injection of imaging exam. Discontinue saline lock post exam. If Pt. has a central line or IVAD, may access for administration according to line specific nursing protocol. Once exam is complete flush line and de-access according to line specific nursing protocol in the CT contrast administration guidelines link. 1 Each 0 01/09/2023 01/10/2023 Active Start: 01-09-2023 End: 01-10-2023 iv contrast (will be provide d with radiology test) CT Chest W -Inject, intravenously, once for 1 dose.No IV access, insert saline lock prior to the beginning of sedation, infusion, injection of imaging exam. Discontinue saline lock post exam. If Pt. has a central line or IVAD, may access for administration according to line specific nursing protocol. Once exam is complete flush line and de-access according to line specific nursing protocol in the CT contrast administration guidelines link. 1 Each 0 01/09/2023 01/10/2023 Active Start: 10-16-2022 End: 01-25-2023 iv contrast (will be provide d with radiology test) Indications: Cancer of trachea, bronchus, and lung (HCC) , Bone metastases , Examination of participant in clinical trial CT ABD/PEL -Inject, intravenously, once for 1 dose.No IV access, insert saline lock prior to the beginning of sedation, infusion, injection of imaging exam. Discontinue saline lock post exam. If Pt. has a central line or IVAD, may access for administration according to line specific nursing protocol. Once exam is complete flush line and de-access according to line specific nursing protocol in the CT contrast administration guidelines link. 1 Each 0 10/16/2022 01/25/2023 Discontinued Start: 10-16-2022 iv contrast (w ill be provided with radiology test) Indications: Cancer of trachea, bronchus, and lung (HCC) , Bone metastases , Examination of participant in clinical trial CT ABD/PEL -Inject, intravenously, once for 1 dose.No IV access, insert saline lock prior to the beginning of sedation, infusion, injection of imaging exam. Discontinue saline lock post exam. If Pt. has a central line or IVAD, may access for administration according to line specific nursing protocol. Once exam is complete flush line and de-access according to line specific nursing protocol in the CT contrast administration guidelines link. 1 Each 0 10/16/2022 Active Start: 10-16-2022 iv contrast (w ill be provided with radiology test) Indications: Cancer of trachea, bronchus, and lung (HCC) , Bone metastases (HCC) , Examination of participant in clinical trial CT ABD/PEL -Inject, intravenously, once for 1 dose.No IV access, insert saline lock prior to the beginning of sedation, infusion, injection of imaging exam. Discontinue saline lock post exam. If Pt. has a central line or IVAD, may access for administration according to line specific nursing protocol. Once exam is complete flush line and de-access according to line specific nursing protocol in the CT contrast administration guidelines link. 1 Each 0 10/16/2022 Active Start: 07-24-2022 End: 07-25-2022 iv contrast (will be provide d with radiology test) Indications: Malignant neoplasm of unspecified part of unspecified bronchus or lung (HCC) CT Chest Abdomen-Inject, intravenously, once for 1 dose.No IV access, insert saline lock prior to the beginning of sedation, infusion, injection of imaging exam. Discontinue saline lock post exam. If Pt. has a central line or IVAD, may access for administration according to line specific nursing protocol. Once exam is complete flush line and de-access according to line specific nursing protocol in the CT contrast administration guidelines link. 1 Each 0 07/24/2022 07/25/2022 Active Start: 04-17-2022 End: 04-18-2022 iv contrast (will be provide d with radiology test) CT Chest W -Inject, intravenously, once for 1 dose.No IV access, insert saline lock prior to the beginning of sedation, infusion, injection of imaging exam. Discontinue saline lock post exam. If Pt. has a central line or IVAD, may access for administration according to line specific nursing protocol. Once exam is complete flush line and de-access according to line specific nursing protocol in the CT contrast administration guidelines link. 1 Each 0 04/17/2022 04/18/2022 Start: 04-17-2022 End: 04-18-2022 iv contrast (will be provide d with radiology test) Indications: Malignant neoplasm of unspecified part of unspecified bronchus or lung (HCC) CT Chest Abdomen-Inject, intravenously, once for 1 dose.No IV access, insert saline lock prior to the beginning of sedation, infusion, injection of imaging exam. Discontinue saline lock post exam. If Pt. has a central line or IVAD, may access for administration according to line specific nursing protocol. Once exam is complete flush line and de-access according to line specific nursing protocol in the CT contrast administration guidelines link. 1 Each 0 04/17/2022 04/18/2022 Start: 04-17-2022 End: 04-18-2022 iv contrast (will be provide d with radiology test) CT Chest W -Inject, intravenously, once for 1 dose.No IV access, insert saline lock prior to the beginning of sedation, infusion, injection of imaging exam. Discontinue saline lock post exam. If Pt. has a central line or IVAD, may access for administration according to line specific nursing protocol. Once exam is complete flush line and de-access according to line specific nursing protocol in the CT contrast administration guidelines link. 1 Each 0 04/17/2022 04/18/2022 Active Start: 04-17-2022 End: 04-18-2022 iv contrast (will be provide d with radiology test) Indications: Malignant neoplasm of unspecified part of unspecified bronchus or lung (HCC) CT Chest Abdomen-Inject, intravenously, once for 1 dose.No IV access, insert saline lock prior to the beginning of sedation, infusion, injection of imaging exam. Discontinue saline lock post exam. If Pt. has a central line or IVAD, may access for administration according to line specific nursing protocol. Once exam is complete flush line and de-access according to line specific nursing protocol in the CT contrast administration guidelines link. 1 Each 0 04/17/2022 04/18/2022 Active Start: 01-24-2022 End: 01-25-2022 iv contrast (will be provide d with radiology test) Indications: Malignant neoplasm of unspecified part of unspecified bronchus or lung (HCC) , Bone metastases (HCC) , Malignant neoplasm of abdomen (HCC) , Lung nodules CT Chest ABD/PEL-Inject, intravenously, once for 1 dose.No IV access, insert saline lock prior to the beginning of sedation, infusion, injection of imaging exam. Discontinue saline lock post exam. If Pt. has a central line or IVAD, may access for administration according to line specific nursing protocol. Once exam is complete flush line and de-access according to line specific nursing protocol in the CT contrast administration guidelines link. 1 Each 0 01/24/2022 01/25/2022 Active Start: 01-03-2022 End: 01-04-2022 iv contrast (will be provide d with radiology test) Indications: Bone metastases (HCC) , Malignant neoplasm of unspecified part of unspecified bronchus or lung (HCC) CT Chest W -Inject, intravenously, once for 1 dose.No IV access, insert saline lock prior to the beginning of sedation, infusion, injection of imaging exam. Discontinue saline lock post exam. If Pt. has a central line or IVAD, may access for administration according to line specific nursing protocol. Once exam is complete flush line and de-access according to line specific nursing protocol in the CT contrast administration guidelines link. 1 Each 0 01/03/2022 01/04/2022 Active Start: 01-03-2022 End: 01-04-2022 iv contrast (will be provide d with radiology test) Indications: Bone metastases (HCC) , Malignant neoplasm of unspecified part of unspecified bronchus or lung (HCC) CT ABD W -Inject, intravenously, once for 1 dose.No IV access, insert saline lock prior to the beginning of sedation, infusion, injection of imaging exam. Discontinue saline lock post exam. If Pt. has a central line or IVAD, may access for administration according to line specific nursing protocol. Once exam is complete flush line and de-access according to line specific nursing protocol in the CT contrast administration guidelines link. 1 Each 0 01/03/2022 01/04/2022 Active Comment on above: CT Chest W -Inject, intravenously, once for 1 dose.No IV access, insert saline lock prior to the beginning of sedation, infusion, injection of imaging exam. Discontinue saline lock post exam. If Pt. has a central line or IVAD, may access for administration according to line specific nursing protocol. Once exam is complete flush line and de-access according to line specific nursing protocol in the CT contrast administration guidelines link. CT ABD W -Inject, in travenously, once for 1 dose.No IV access, insert saline lock prior to the beginning of sedation, infusion, injection of imaging exam. Discontinue saline lock post exam. If Pt. has a central line or IVAD, may access for administration according to line specific nursing protocol. Once exam is complete flush line and de-access according to line specific nursing protocol in the CT contrast administration guidelines link. CT Chest ABD/PEL-Inj ect, intravenously, once for 1 dose.No IV access, insert saline lock prior to the beginning of sedation, infusion, injection of imaging exam. Discontinue saline lock post exam. If Pt. has a central line or IVAD, may access for administration according to line specific nursing protocol. Once exam is complete flush line and de-access according to line specific nursing protocol in the CT contrast administration guidelines link. CT Chest Abdomen-Inj ect, intravenously, once for 1 dose.No IV access, insert saline lock prior to the beginning of sedation, infusion, injection of imaging exam. Discontinue saline lock post exam. If Pt. has a central line or IVAD, may access for administration according to line specific nursing protocol. Once exam is complete flush line and de-access according to line specific nursing protocol in the CT contrast administration guidelines link. CT ABD/PEL -Inject, intravenously, once for 1 dose.No IV access, insert saline lock prior to the beginning of sedation, infusion, injection of imaging exam. Discontinue saline lock post exam. If Pt. has a central line or IVAD, may access for administration according to line specific nursing protocol. Once exam is complete flush line and de-access according to line specific nursing protocol in the CT contrast administration guidelines link. lisinopril 5 mg oral tablet (20 sources) Angiotensin Converting Enzyme Inhibitor Start: 2020 End: 2022 take 1 tablet by mouth once daily lisinopril (ZESTRIL, PRINIVIL) 5 mg tablet Indications: ST elevation myocardial infarction involving right coronary artery (HCC) Take 1 tablet by mouth once daily. 30 tablet 11 07/19/2022 10/24/2022 Discontinued Comment on above: Take 1 tablet by serjio once daily. 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 21 tablet 04/08/2025 04/14/2025 Active Start: 11-19-2024 End: 11-25-2024 methylPREDNISolone (MEDROL, TU,) 4 mg Dose-Pack Take as instructed per package. 21 tablet 11/19/2024 11/25/2024 Active naloxone hydrochloride 40 mg/ml nasal spray (20 sources) Opioid Antagonist Start: 10-04-2020 End: 03-10-2024 naloxone 4 mg/actuation nasal spray (NARCAN) Use 1 spray in one nostril as needed for overdose. May repeat every 2 to 3 min in alternating nostrils until medical assistance is available 1 Box 0 10/04/2020 03/10/2024 Discontinued Comment on above: Use 1 spray in one n ostril as needed for overdose. May repeat every 2 to 3 min in alternating nostrils until medical assistance is available omeprazole 20 mg delayed release oral capsule (20 sources) Proton Pump Inhibitor Start: 10-06-2021 End: 05-08-2022 take 1 capsule by mouth once daily before breakfast omeprazole (PRILOSEC) 20 mg capsule Take 1 capsule by mouth daily before breakfast. 1/2 hr before meal. 90 capsule 3 10/06/2021 05/08/2022 Discontinued Comment on above: Take 1 capsule by mo [facility] daily before breakfast. 1/2 hr before meal. oxyCODONE hydrochloride 10 mg oral tablet (5 sources) Opioid Agonist Start: 03-23-2022 End: 05-08-2022 take 1 tablet by mouth every twenty-four hours as needed oxyCODONE IR (ROXICODONE) 10 mg tab Take 1 tablet by mouth at bedtime as needed. 0 03/23/2022 05/08/2022 Discontinued Comment on above: Take 1 tablet by [facility] at bedtime as needed. 5 ml palonosetron 0.05 mg/ml injection (4 sources) Serotonin-3 Receptor Antagonist Start: 02-05-2025 End: 02-05-2025 0.25 mg, INTRAVENOUS, ONCE, 1 dose, On Yane 02/05/25 at 1330, Flush IV line with NS prior to and following administration. Start: 01-14-2025 End: 01-14-2025 0.25 mg, INTRAVENOUS, ONCE, 1 dose, On 01/14/25 at 1230, Flush IV line with NS prior to and following administration. Start: 12-25-2024 End: 12-25-2024 0.25 mg, INTRAVENOUS, ONCE, 1 dose, On Yane 12/25/24 at 1330, Flush IV line with NS prior to and following administration. Start: 10-30-2024 End: 10-30-2024 0.25 mg, INTRAVENOUS, ONCE, 1 dose, On Yane 10/30/24 at 0930, Flush IV line with NS prior to and following administration. pembrolizumab 400 mg in NaCl 0.9% 74 mL (KEYTRUDA) (5 sources) Start: 08-21-2024 End: 08-21-2024 400 mg, INTRAVENOUS, Adminis ter over 30 Minutes, ONCE, 1 dose, On Yane 08/21/24 at 1500, exp 0930 08/25/24 (refrigerated) Administer with 0.2 micron filter. Start: 07-10-2024 End: 07-10-2024 400 mg, INTRAVENOUS, Adminis ter over 30 Minutes, ONCE, 1 dose, On Yane 07/10/24 at 1500, exp 1430 07/13/24 (refrigerated) Administer with 0.2 micron filter. Start: 05-29-2024 End: 05-29-2024 400 mg, INTRAVENOUS, Adminis ter over 30 Minutes, ONCE, 1 dose, On Yane 05/29/24 at 1430, exp 06/02/24 (refrigerated) Administer with 0.2 micron filter. Start: 04-17-2024 End: 04-17-2024 pembrolizumab 400 mg in NaCl 0.9% 74 mL (KEYTRUDA) Start: 03-06-2024 End: 03-06-2024 pembrolizumab 400 mg in NaCl 0.9% 74 mL (KEYTRUDA) PEMEtrexed disodium 970 mg i n NaCl 0.9% 148.8 mL (ALIMTA) (4 sources) Start: 02-05-2025 End: 02-05-2025 970 mg (500 mg/m2 1.94 m2 Order-specific BSA), INTRAVENOUS, Administer over 10 Minutes, ONCE, 1 dose, On Yane 02/05/25 at 1400, exp 0830 02/06/25 (room temp) Hazardous Chemotherapy Drug: Use appropriate PPE. Start: 01-14-2025 End: 01-14-2025 970 mg (500 mg/m2 1.94 m2 Or daniel-specific BSA), INTRAVENOUS, Administer over 10 Minutes, ONCE, 1 dose, On Sun01/14/25 at 1300, exp 1700 01/15/25 (room temp) Hazardous Chemotherapy Drug: Use appropriate PPE. Start: 12-25-2024 End: 12-25-2024 970 mg (500 mg/m2 1.94 m2 Or daniel-specific BSA), INTRAVENOUS, Administer over 10 Minutes, ONCE, 1 dose, On Yane 12/25/24 at 1400, Approx Total Volume - Expires: 12/27/23 @ 1945 Hazardous Chemotherapy Drug: Use appropriate PPE. Start: 10-30-2024 End: 10-30-2024 970 mg (500 mg/m2 1.94 m2 Or daniel-specific BSA), INTRAVENOUS, Administer over 10 Minutes, ONCE, 1 dose, On Yane 10/30/24 at 1000, exp 0930 10/31/24 (room temp) Hazardous Chemotherapy Drug: Use appropriate PPE. polymyxin b [id number] unt/ml / trimethoprim 1 mg/ml ophthalmic solution (3 sources) Dihydrofolate Reductase Inhibitor Antibacterial, Polymyxin-class Antibacterial Start: 04-17-2022 End: 04-22-2022 take 1 drop(s) into the eye(s) every four hours trimethoprim-polymyxin (POLYTRIM) 10,000 unit- 1 mg/mL ophthalmic solution Indications: Acute conjunctivitis of both eyes, unspecified acute conjunctivitis type Use 1 Drop in both eyes every 4 hours for 5 days. 1.5 mL 0 04/17/2022 04/22/2022 Comment on above: Use 1 Drop in both eyes every 4 hours fo r 5 days. varenicline 1 mg oral tablet (20 sources) Partial Cholinergic Nicotinic Agonist Start: 06-25-2023 End: 10-05-2024 take 1 tablet by mouth twice daily varenicline (CHANTIX CONTINUING MONTH BOX) 1 mg tablet Indications: Cigarette smoker Take 1 tablet by mouth two times a day. 56 tablet 3 07/09/2024 10/05/2024 Discontinued (Course of therapy completed) Start: 02-01-2023 End: 05-22-2023 take 1 tablet by mouth once daily varenicline (CHANTIX STARTING MONTH BOX) 0.5 mg (11)- 1 mg (42) tablet Indications: Cigarette smoker Take 0.5 mg by mouth once daily on Days 1 through 3, THEN 0.5 mg twice daily on Days 4 through 7, THEN 1 mg twice daily on Day 8 and thereafter 53 tablet 0 02/01/2023 05/22/2023 Discontinued (Other) Start: 02-01-2023 End: 06-23-2023 take 1 tablet by mouth twice daily varenicline (CHANTIX CONTINUING MONTH BOX) 1 mg tablet Indications: Cigarette smoker Take 1 tablet by mouth twice daily. 56 tablet 3 02/01/2023 05/22/2023 Discontinued Start: 12-26-2021 End: 01-09-2023 take 1 tablet by mouth twice daily varenicline (CHANTIX) 1 mg tablet Indications: Cigarette smoker Take 1 tablet by mouth twice daily. 60 tablet 3 07/04/2022 10/24/2022 Discontinued Comment on above: Take 1 tablet by serjio th twice daily. Take 0.5 mg by mouth once daily on Days 1 through 3, THEN 0.5 mg twice daily on Days 4 through 7, THEN 1 mg twice daily on Day 8 and thereafter Take 1 tablet by serjio th two times a day. vitamin b12 1 mg/ml injectable solution (3 sources) Vitamin B12 Start: 02-05-2025 End: 02-05-2025 inject 1 dose by intramuscular injection once 1,000 mcg, INTRAMUSCULAR , ONCE, 1 dose, On Yane 02/05/25 at 1330 Start: 12-25-2024 End: 12-25-2024 inject 1 dose by intramuscular injection once 1,000 mcg, INTRAMUSCULAR, ONCE, 1 dose, On Yane 12/25/24 at 1330 Start: 10-30-2024 End: 10-30-2024 inject 1 dose by intramuscular injection once 1,000 mcg, INTRAMUSCULAR, ONCE, 1 dose, On Yane 10/30/24 at 0930 Problems Active Problems Problem Classification Problem Date Documented Da te Episodic/Chronic Acute myocardial infarction (20 sources) Myocardial infarction; Translations: [ST elevation (STEMI) myocardial infarction involving right coronary artery] Onset: 0 06-28-2020 Chronic Asthma (20 sources) Asthma; Translations: [Unspecified asthma, uncomplicated] 08-18-2015 Chronic Blindness and vision defects (2 sources) Other visual disturbances; Translations: [Unspecified visual disturbance] Onset: 5 Episodic Cancer of bronchus; lung (20 sources) Malignant neoplasm of lower lobe of right lung; Translations: [Malignant neoplasm of lower lobe, right bronchus or lung] Onset: 2 Chronic Cancer; other respiratory and intrathoracic (20 sources) Malignant neoplasm of lower respiratory tract; 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] Onset: 0 09-03-2020 Chronic Chronic obstructive pulmonary disease and bronchiectasis (20 sources) Asthma-chronic obstructive pulmonary disease overlap syndrome; Translations: [Chronic obstructive pulmonary disease, unspecified] Onset: 3 Chronic Coronary atherosclerosis and other heart disease (9 sources) History of myocardial infarction; Translations: [Old myocardial infarction] Onset: 5 Chronic Coronary atherosclerosis and other heart disease (3 sources) Presence of coronary angioplasty implant and graft; Translations: [Presence of coronary angioplasty implant and graft] Onset: 4 Episodic Disorders of lipid metabolism (2 sources) Hyperlipidemia, unspecified; Translations: [Hyperlipidemia, unspecified] Onset: 5 Chronic Esophageal disorders (20 sources) Gastroesophageal reflux disease; Translations: [Gastro-esophageal reflux disease without esophagitis] 08-14-2005 Chronic Genitourinary symptoms and ill-defined conditions (1 source) Mixed urinary incontinence; Translations: [Mixed incontinence] 05-22-2023 Chronic Headache; including migraine (20 sources) Migraine without aura; Translations: [Migraine without aura, not intractable, without status migrainosus] Onset: 8 12-20-2015 Chronic Inflammation; infection of eye (except that caused by tuberculosis or sexually transmitteddisease) (1 source) Acute conjunctivitis of bilateral eyes; Translations: [Unspecified acute conjunctivitis, bilateral] Episodic Lymphadenitis (20 sources) Thoracic lymphadenopathy; Translations: [Localized enlarged lymph nodes] Onset: 0 08-16-2020 Episodic Maintenance chemotherapy; radiotherapy (1 source) Patient encounter status; Translations: [Encounter for antineoplastic chemotherapy] Chronic Mycoses (1 source) Candidiasis of mouth; Translations: [Candidal stomatitis] 05-25-2023 Episodic Nausea and vomiting (2 sources) Nausea; Translations: [Nausea] Episodic Other and ill-defined heart disease (1 source) Cardiomegaly; Translations: [Cardiomegaly] Onset: 5 Chronic Other connective tissue disease (2 sources) Triggering of digit; Translations: [Trigger finger, left ring finger] Episodic Other connective tissue disease (1 source) Swelling of left lower limb; Translations: [Other specified soft tissue disorders] Episodic Other endocrine disorders (1 source) Hypoadrenalism; Translations: [Unspecified adrenocortical insufficiency] 05-26-2024 Chronic Other endocrine disorders (1 source) Unspecified adrenocortical insufficiency; Translations: [Hypoadrenalism (HCC)] Onset: 4 Chronic Other eye disorders (1 source) Disorder of eye; Translations: [Other specified disorders of eye and adnexa] 04-16-2023 Episodic Other gastrointestinal disorders (20 sources) Irritable bowel syndrome; Translations: [Irritable bowel syndrome without diarrhea] 08-14-2005 Chronic Other lower respiratory disease (8 sources) Cough; Translations: [Cough] Onset: 5 Episodic Other lower respiratory disease (2 sources) Wheezing; Translations: [Wheezing] Episodic Other lower respiratory disease (4 sources) Dyspnea; Translations: [Shortness of breath] Episodic Other lower respiratory disease (2 sources) Dyspnea on exertion; Translations: [Shortness of breath] 11-18-2024 Episodic Other nutritional; endocrine; and metabolic disorders (20 sources) Obesity; Translations: [Other obesity due to excess calories] 02-16-2019 Chronic Other nutritional; endocrine; and metabolic disorders (20 sources) Obesity caused by energy imbalance; Translations: [Other obesity due to excess calories] 02-16-2019 Chronic Other nutritional; endocrine; and metabolic disorders (2 sources) Other obesity due to excess calories; Translations: [Class 2 obesity due to excess calories without serious comorbidity with body mass index (BMI) of 35.0 to 35.9 in adult] Onset: 4 Chronic Other nutritional; endocrine; and metabolic disorders (1 source) Body mass index (BMI) 35.0-35.9, adult; Translations: [Class 2 obesity due to excess calories without serious comorbidity with body mass index (BMI) of 35.0 to 35.9 in adult] Onset: 5 Chronic Other nutritional; endocrine; and metabolic disorders (1 source) Body mass index (BMI) 38.0-38.9, adult; Translations: [Class 2 obesity due to excess calories with body mass index (BMI) of 38.0 to 38.9 in adult, unspecified whether serious comorbidity present] Onset: 4 Chronic Other screening for suspected conditions (not mental disorders or infectious disease) (10 sources) Patient encounter status; Translations: [Encounter for screening mammogram for malignant neoplasm of breast] Episodic Other skin disorders (1 source) Eruption; Translations: [Rash and other nonspecific skin eruption] 08-01-2023 Episodic Other skin disorders (1 source) Skin lesion; Translations: [Disorder of the skin and subcutaneous tissue, unspecified] 09-08-2024 Episodic Other upper respiratory disease (20 sources) Allergic rhinitis; Translations: [Allergic rhinitis, unspecified] 08-14-2005 Chronic Other upper respiratory infections (2 sources) Sore throat symptom; Translations: [Acute pharyngitis, unspecified] 08-01-2023 Episodic Secondary malignancies (20 sources) Secondary malignant neoplasm of bone; Translations: [Secondary malignant neoplasm of bone] Onset: 0 09-03-2020 Chronic Secondary malignancies (3 sources) Secondary malignant neoplasm of bone; Translations: [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)] Onset: 2 Chronic Spondylosis; intervertebral disc disorders; other back problems (20 sources) Degeneration of intervertebral disc; Translations: [Degeneration of intervertebral disc, site unspecified] 08-14-2005 Chronic Substance-related disorders (20 sources) Tobacco user; Translations: [Nicotine dependence, unspecified, uncomplicated] Onset: 5 08-14-2005 Chronic Thyroid disorders (4 sources) Thyroid nodule; Translations: [Nontoxic single thyroid nodule] Onset: 5 Chronic Unclassified (1 source) OPENED IN ERROR Unclassified (1 source) Radiology NM Onset: 4 Unclassified (1 source) Class 2 obesity due to excess calories without serious comorbidity with body mass index (BMI) of 35.0 to 35.9 in adult; Translations: [Class 2 obesity due to excess calories without serious comorbidity with body mass index (BMI) of 35.0 to 35.9 in adult] Onset: 5 Past or Other Problems Problem Classification Problem Date Documented Da te Episodic/Chronic Acute bronchitis (1 source) Acute bronchitis, unspecified; Translations: [Acute bronchitis with chronic obstructive pulmonary disease (COPD) (HCC) (HCC)] Onset: 06-06-2024 Episodic Diabetes mellitus without complication (6 sources) Hyperglycemia; Translations: [Hyperglycemia, unspecified] Onset: 06-06-2024 09-04-2023 Episodic Diseases of mouth; excluding dental (2 sources) Mouth polyp; Translations: [Other lesions of oral mucosa] Onset: 09-08-2024 09-08-2024 Episodic Fluid and electrolyte disorders (20 sources) Hypokalemia; Translations: [Hypokalemia] Onset: 11-25-2024 Episodic Hepatitis (20 sources) Type B viral hepatitis; Translations: [Unspecified viral hepatitis B without hepatic coma] Resolved: 04-09-2021 04-09-2021 Episodic Immunizations and screening for infectious disease (1 source) Encounter for immunization; Translations: [Encounter for immunization] Onset: 09-08-2024 Episodic Malaise and fatigue (6 sources) Asthenia; Translations: [Other malaise] Onset: 05-27-2024 Episodic Mood disorders (20 sources) Depressive disorder in remission; Translations: [Depressive disorder in remission] Resolved: 04-09-2021 04-09-2021 Chronic Other aftercare (20 sources) Long-term current use of anticoagulant; Translations: [development administrator (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) use of anticoagulants] Onset: 08-16-2020 08-16-2020 Episodic Other aftercare (1 source) 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; Translations: [Encounter for long-term current use of medication] Onset: 07-08-2024 Episodic Other bone disease and musculoskeletal deformities (20 sources) Bone pain; Translations: [Other specified disorders of bone, other site] Onset: 11-25-2022 11-25-2022 Episodic Other connective tissue disease (20 sources) Fibromyalgia; Translations: [Fibromyalgia] Onset: 02-07-2008 05-22-2017 Episodic Other liver diseases (20 sources) Inflammatory disease of liver; Translations: [Inflammatory liver disease, unspecified] Onset: 02-07-2008 Resolved: 04-09-2021 04-09-2021 Chronic Other lower respiratory disease (20 sources) Nodule of lung; Translations: [Solitary pulmonary nodule] Onset: 08-16-2020 08-16-2020 Episodic Other lower respiratory disease (1 source) Dyspnea, unspecified; Translations: [Dyspnea and respiratory abnormalities] Onset: 11-19-2024 Episodic Other lower respiratory disease (1 source) Other abnormalities of breathing; Translations: [Dyspnea and respiratory abnormalities] Onset: 11-19-2024 Episodic Other nervous system disorders (20 sources) H/O: Mcelroy's palsy; Translations: [Personal history of other diseases of the nervous system and sense organs] Onset: 09-09-2017 09-09-2017 Episodic Other non-traumatic joint disorders (4 sources) Pain in right hip joint; Translations: [Pain in right hip] Episodic Other skin disorders (1 source) Disorder of the skin and subcutaneous tissue, unspecified; Translations: [Skin lesions] Onset: 09-08-2024 Episodic Residual codes; unclassified (1 source) Localized edema; Translations: [Bilateral leg edema] Onset: 07-08-2024 Episodic Screening and history of mental health and substance abuse codes (2 sources) Encounter for screening for depression; Translations: [Encounter for screening examination for other mental health and behavioral disorders] Onset: 09-08-2024 Episodic Unclassified (1 source) Patient encounter status 12-02-2024 Results Test Name Value Interpretation Reference Range Facility REFERRAL FOR ADDITIONAL BIOM ARKER AND MOLECULAR TESTINGOrdered By: Peterson Gomes on 04-06-2025 APMOFEROZ [facility] Comment on above: Request has been rec eived for evaluation and the results will be issued separately. [facility] GLUCOSE, BLOOD (POC)on 03-09 Glucose [Mass/Vol] 121 mg/dL Abnormal 74 - 99 mg/dL [facility] Comment on above: Location:[facility], [address] [place] [address], [id number] The Accu-Chek Inform II glucose meter has not been approved for testing on patients receiving intensive medical intervention or therapy and results from this point of care glucose test should not be used for patient management decisions in these cases. Inaccurate results may also occur from other interfering factors, such as N-acetylcysteine (blood concentrations of greater than 5mg/dL), galactose, extremes of hematocrit (<10 or >65), or high doses of ascorbic acid (vitamin C) greater than 3mg/dL. Consider alternate testing mechanisms (e.g. core lab, blood gas instrument) in the above situations. Interpretation and review of laboratory results Abnormal [facility] NM PET/CT SKULL-THIGH SUBQon 03-09-2025 NM PET/CT SKULL-THIGH SUBQ * * *Final Report* * * DATE OF EXAM: Mar 09 2025 12:45PM MDP 0063 - NM PET/CT SKULL-THIGH SUBQ / PROCEDURE REASON: multiple diagnoses * * * * Physician Interpretation * * * * EXAMINATION: BODY FDG PET-CT CLINICAL HISTORY: Metastatic non-small cell lung cancer. Follow-up exam. EXAM CATEGORY: Subsequent treatment strategy. TECHNIQUE: Radiopharmaceutical was administered intravenously followed by PET imaging from the eyes to thighs. Free breathing, low dose CT of the same body region was acquired without IV contrast for attenuation correction and anatomic localization. Unenhanced imaging is limited for the evaluation of some pathology and the acquired CT was not designed to produce diagnostic CT scan quality. Physiologic/non-patholog ic uptake in some body regions could confound or obscure some pathology. * CT Dose-Length Product (DLP): 368 mGy*cm * CT Dose Reduction Employed: Yes * Blood glucose: 121 mg/dL * Injection site: Right Forearm-Antecubital * Injected activity: 15.9 mCi * Uptake Time: 46 minutes * Radiopharmaceutical: B34-Fessxnyxajaybxziro (FDG) COMPARISON: FDG PET/CT 09/15/2024, 05/05/2024, 02/18/2024 CORRELATION: CT 11/19/2024 RESULT: REFERENCES: FDG uptake is used as a surrogate marker for glucose metabolism. All reported standardized uptake values represent maximum SUV (SUVmax) per body weight, unless otherwise specified. SUV reference values, as follows: * Blood Pool (Descending Aorta): SUVmax 2.8 * Background Liver: SUVmax 3.1; SUVmean 2.4 Localizer Images: No additional findings. HEAD AND NECK: Head: No radiotracer avid lesion or mass effect in the imaged intracranial compartment. Aerodigestive Tract: No focal radiotracer avid lesion. Lymph Nodes: No radiotracer avid lymphadenopathy. Neck Soft Tissues: No radiotracer avid thyroid nodule. Similar size of three subcentimeter nodules with increased radiotracer uptake in the superficial parotid glands bilaterally. Reference lesions as follows: * 0.8 cm LEFT parotid nodule (SUVmax 6.1, previously 4.8; CT image 14) CHEST: Lungs and Pleura: * 1.1 x 0.9 cm medial RIGHT lower lobe solid nodule without increased radiotracer uptake (SUVmax 2.2, previously 1.5; CT image 86), stable in size and corresponding with the previously treated mass. * Few other subcentimeter nodules without increased radiotracer uptake including a 1.0 x 0.9 cm subpleural RIGHT lower lobe nodule inferiorly (CT image 123). * Enlarging RIGHT hilar paul mass with near complete RIGHT middle lobe collapse. * No new radiotracer avid mass, nodule, or consolidation. No pleural effusion. * Note, PET is often not sensitive for lung nodules smaller than 8 mm. Mediastinum and Lymph Nodes: Mixed changes in radiotracer avid mediastinal and RIGHT hilar lymphadenopathy including enlarging RIGHT hilar and subcarinal nodes and slightly decreased size of the paratracheal nodes. No new radiotracer avid lymphadenopathy. Some of the lymph nodes are difficult to accurately measure on the unenhanced CT. Reference lesions as follows: * 2.8 x 2.6 cm subcarinal node (SUVmax 13; CT image 90), previously 2.3 x 2.2 cm (previous SUVmax 24.9) * 2.4 x 1.9 cm RIGHT hilar node (SUVmax 12.9; CT image 100), previously 1.2 x 1.2 cm (previous SUVmax 14.1) Cardiovascular: Blood pool activity. No pericardial effusion. Normal heart size. Coronary artery calcifications/stents. Chest Wall: No radiotracer avid soft tissue lesion. ABDOMEN AND PELVIS: Hepatobiliary: No radiotracer avid lesion. No measurable mass. Cholecystectomy. Spleen: No radiotracer avid lesion. No splenomegaly. Pancreas: No radiotracer avid lesion. Adrenals: No radiotracer avid nodule. Urinary Tract: Physiologic radiotracer excretion in the renal collecting systems and urinary bladder. No hydronephrosis. GI Tract and Peritoneum: Segmentally increased bowel uptake is likely physiologic or secondary to medication effects (e.g. metformin), but does degrade peritoneal assessment. No focal radiotracer avid lesion. No dilated bowel or ascites. Colonic diverticulosis. Lymph Nodes: No radiotracer avid lymphadenopathy. Vasculature: Blood pool activity. Vascular calcifications without an abdominal aortic aneurysm. Pelvic Organs: No radiotracer avid lesion. Hysterectomy. MUSCULOSKELETAL: Bones: Scattered metastatic bone lesions with similar or resolved radiotracer uptake. Sites include medial RIGHT clavicular head, few levels in the spine, and bilateral pelvic bones. No new radiotracer avid lesion. Degenerative changes. Reference lesions as follows: * T9 vertebral body sclerotic lesion with resolved uptake (CT image 1:15) * RIGHT posterior iliac bone mixed lytic/sclerotic lesion (SUVmax 3.8, previously 4.7; CT image 208) * LEFT ischium sclerotic lesion (SUVmax 2.9, previously 4.7; CT image 253) Soft Tissues: New subcentimeter area of ill-defined somewhat focal (more content not included)... Normal [facility] Cardiology Visit Reporton Cardiology Visit Report [facility] [address] [place] [address] OFFICE VISIT Date of Service: 01/29/25 MR#: [id number] Acct: [id number] Name: LATA SMITH Rep #: [id number] : 1960 Provider: RERE Dye Age/Sex: 64/F [place] [facility] [place] Status: Signed HPI HPI History of Present Illness Details: This is a 64-year-old female who presents here today for a cardiovascular follow-up visit. On October 082019 she had an acute inferior wall myocardial infarction. She underwent an urgent heart catheterization which she had stenting to her RCA and right posterior lateral. Echocardiogram done at that time demonstrated a moderate concentric LVH with an ejection fraction of 75%. Stage I diastolic dysfunction. She also has non-small cell carcinoma, unfortunately it has metastasized and she is now on chemo. She sees oncology at [facility]. Her concerns are more with her chemo. From a cardiac standpoint, patient is doing well. She does not have any chest discomfort/heaviness/tig htness. She does not have any worsening symptoms of shortness of breath. She does not have any orthopnea. She denies PND. She does not have any symptoms of congestive heart failure. She does not have any palpitations that she is aware of. She does have lightheadedness with coughing. She does not have any near-syncope or syncope. She does not have any symptoms of claudication. Intake Vital Signs 01/01/25 07:40 01/29/25 13:54 Height 5 ft 5 ft Weight: 195 lb BMI 38.0 BP 116/75 Blood Pressure Location Lt brachial Position Sitting Respiration 18 Pulse 102 H Pulse Source NIBP Intake Visit Reasons: 6 M FU Field Tech Required: No Is patient in pain?: No Allergies Penicillins Allergy (Intermediate, Verified 01/29/25 14:10) Hives amoxicillin trihydrate (From Augmentin) Allergy (Verified 01/29/25 14:10) Hives potassium clavulanate (From Augmentin) Allergy (Verified 01/29/25 14:10) Hives Medications ???Medication ???Instructions ???Recorded ???Confirmed ???Type albuterol sulfate 90 mcg/actuation 2 puff inhalation PRN PRN 01/29/25 History aerosol inhaler Shortness Of Breath fluticasone propionate 50 2 spray intranasal DAILY PRN 07/0501/29/25 History mcg/actuation nasal spray,suspension (Flonase Allergy Relief) polyethylene glycol 3350 17 17 g PO DAILY PRN 07/05/20 5 History gram/dose oral powder (Miralax) simethicone 80 mg chewable tablet 80 mg PO 4-6XD PRN 07/05/2001/29 History (Gas Relief (simethicone)) trazodone 50 mg tablet 50 mg PO QHS PRN 07/05/20 01/29/25 History cyclobenzaprine 10 mg tablet 10 mg PO BID PRN 01/12/22 01/29/25 History rizatriptan 10 mg tablet 10 mg PO ONCE PRN 01/12/22 5 History rosuvastatin 40 mg tablet 40 mg PO DAILY 01/12/22 01/29/25 H istory aspirin 81 mg tablet,delayed 81 mg PO DAILY@0800 #90 tabs 01/1201/29/25 Rx release hydrochlorothiazide 25 mg tablet 25 mg PO DAILY #90 tabs 05/08/24 0 01/29/25 Rx verapamil 120 mg 24 hr 120 mg PO DAILY #90 caps 05/08/24 01/29/25 Rx capsule,extended release albuterol sulfate 2.5 mg/3 mL mg continuous nebulization Q6 PRN 01/29/25 01/29/25 History (0.083 %) solution for nebulization wheezing benzonatate 100 mg capsule 200 mg PO TID PRN cough 01/29/25 0 01/29/25 History diclofenac sodium 1 % topical gel 2 ea topical 4X/DAY PRN 01/29/25 01/29/25 History esomeprazole magnesium 20 mg 20 mg PO QAM 01/29/25 01/29/25 His tory capsule,delayed release fluticasone 500 mcg-salmeterol 50 1 ea inhalation BID 01/29/2501/07 History mcg/dose blistr powdr for inhalation (Advair Diskus) folic acid 1 mg tablet 1 mg PO QDAY 01/29/25 01/29/25 His tory furosemide 20 mg tablet 20 - 40 mg PO QDAY PRN 01/29/25 History ibuprofen 800 mg tablet 800 mg PO Q8 PRN pain 01/29/25 History ibuprofen 800 mg tablet 800 mg PO Q8H PRN 01/29/25 5 History losartan 25 mg tablet 25 mg PO QDAY 01/29/25 01/29/25 Hi story multivitamin with folic acid 400 1 tab PO QDAY 01/29/25 01/29/25 Hi story mcg tablet (Daily-Nettie (with folic acid)) naloxone 4 mg/actuation nasal spray intranasal 01/29/25 01/29/25 Hi story nystatin 100,000 unit/mL oral PO 01/29/25 01/29/25 History suspension oxycodone-acetaminophen 10 mg-325 1 tab PO Q4 PRN pain 01/29/25 History mg tablet potassium chloride 20 mEq oral 20 meq PO BID 01/29/25 01/29/25 Hi story packet promethazine 25 mg tablet 25 mg PO Q6 PRN nausea/vomiting 01/29/25 History sennosides 8.6 mg tablet (Natural 17.2 mg PO BID 01/29/25 01/29/25 History Senna Laxative) umeclidinium 62.5 mcg/actuation 1 inh inhalation QDAY 01/29/25 History bl (more content not included)... Normal [facility] CTA Pulmonary arteries for p ulmonary embolus W contrast Yesenia 11-19-2024 IMPRESSION: 1. No evidence of pulmonary emboli 2. Unchanged size of previously described pulmonary nodules 3. Bilateral bronchial wall thickening. There are some tiny clustered nodules in a tree-in-bud distribution in the right upper lobe which are most likely infectious/inflammatory 4. Unchanged enlarged mediastinal lymph nodes 5. Unchanged sclerotic skeletal metastases Network Applications Specialist: [facility] Transcribe Date/Time: Nov 19 2024 3:21P Dictated by : KATHRYN MARROQUIN MD This examination was interpreted and the report reviewed and electronically signed by: KATHRYN MARROQUIN MD on Nov 19 2024 3:42PM [facility] DIVISION OF RADIOLOGY * * *Final Report* * * DATE OF EXAM: Nov 19 2024 3:14PM [facility] 0564 - CTA CHEST (NON GATED) W IVCON PE / PROCEDURE REASON: multiple diagnoses * * * * Physician Interpretation * * * * EXAMINATION: CHEST CTA (NON GATED) WITH CONTRAST (PULMONARY EMBOLISM PROTOCOL) Clinical History: Dyspnea. History of pulmonary adenocarcinoma. Technique: Spiral CT acquisition of the chest from the thoracic inlet to the upper abdomen following IV contrast. Axial 1 and 3 mm thick slices plus coronal and sagittal reformatted images. MQ: CTCP_5 Contrast: 100 mL Omnipaque [address] Radiation dose: Integrated Dose-length product (DLP) for this visit = 505 mGy*cm CT Dose Reduction Employed: Automated exposure control(AEC) and iterative recon CTA: Post-processed images (Maximum intensity Projection (MIP), Volume-rendered (VR), or Surface shaded display images (SSD) were created, reviewed and archived. Comparison: CT/PET scan 09/15/[address] chest 08/10/2023 RESULT: Limitations: None. Evaluation for thromboembolic disease: - Right heart chambers: No thromboembolic disease. - Main pulmonary arteries: No thromboembolic disease. - Lobar pulmonary arteries: No thromboembolic disease. - Segmental pulmonary arteries: No thromboembolic disease. - Subsegmental pulmonary arteries: No thromboembolic disease. - Additional pulmonary artery findings: The main pulmonary artery is normal in caliber. Lines, tubes, and devices: None. Lung parenchyma and airways: *Stable 3 mm nodule lateral right upper lobe (8:73) *Stable 11 x 8 mm nodule medial right lower lobe (8:116) *Stable 9 mm irregular nodule anterior right lung base (8:220) Bilateral bronchial wall thickening. There are new tiny clustered nodules in a tree-in-bud distribution in the right upper lobe. No consolidation. Pleural space: No pleural effusion. No pleural thickening. Lower neck, lymph nodes, and mediastinum: The imaged thyroid gland is normal. Enlarged mediastinal lymph nodes have not appreciably changed in size. For example: *1.4 x 1.1 cm right paratracheal lymph node (7:74) *3 x 2.5 cm precarinal lymph node (7:99) *1.5 x 1.5 cm subcarinal lymph node (7:129) Heart, pericardium, and thoracic vessels: The thoracic aorta is normal in caliber. The cardiac chambers are normal in size. Coronary artery atherosclerotic calcifications are noted, although the study is not optimized for coronary assessment. No pericardial effusion or thickening. Bones and soft tissues: Unchanged sclerotic metastases in the anterior ninth vertebral body and lateral right sixth rib. Upper abdomen: No abnormality in the imaged upper abdomen. Localizer images: No additional findings. DIVISION OF RADIOLOGY Provider, [facility] - 11/19/2024 * * *Final Report* * * DATE OF EXAM: Nov 19 2024 3:14PM [facility] 0564 - CTA CHEST (NON GATED) W CHEPE PE / PROCEDURE REASON: multiple diagnoses * * * * Physician Interpretation * * * * EXAMINATION: CHEST CTA (NON GATED) WITH CONTRAST (PULMONARY EMBOLISM PROTOCOL) Clinical History: Dyspnea. History of pulmonary adenocarcinoma. Technique: Spiral CT acquisition of the chest from the thoracic inlet to the upper abdomen following IV contrast. Axial 1 and 3 mm thick slices plus coronal and sagittal reformatted images. MQ: CTCP_5 Contrast: 100 mL Omnipaque [address] Radiation dose: Integrated Dose-length product (DLP) for this visit = 505 mGy*cm CT Dose Reduction Employed: Automated exposure control(AEC) and iterative recon CTA: Post-processed images (Maximum intensity Projection (MIP), Volume-rendered (VR), or Surface shaded display images (SSD) were created, reviewed and archived. Comparison: CT/PET scan 09/15/[address] chest 08/10/2023 RESULT: Limitations: None. Evaluation for thromboembolic disease: - Right heart chambers: No thromboembolic disease. - Main pulmonary arteries: No thromboembolic disease. - Lobar pulmonary arteries: No thromboembolic disease. - Segmental pulmonary arteries: No thromboembolic disease. - Subsegmental pulmonary arteries: No thromboembolic disease. - Additional pulmonary artery findings: The main pulmonary artery is normal in caliber. Lines, tubes, and devices: None. Lung parenchyma and airways: *Stable 3 mm nodule lateral right upper lobe (8:73) *Stable 11 x 8 mm nodule medial right lower lobe (8:116) *Stable 9 mm irregular nodule anterior right lung base (8:220) Bilateral bronchial wall thickening. There are new tiny clustered nodules in a tree-in-bud distribution in the right upper lobe. No consolidation. Pleural space: No pleural effusion. No pleural thickening. Lower neck, lymph nodes, and mediastinum: The imaged thyroid gland is normal. Enlarged mediastinal lymph nodes have not appreciably changed in size. For example: *1.4 x 1.1 cm right paratracheal lymph node (7:74) *3 x 2.5 cm precarinal lymph node (7:99) *1.5 x 1.5 cm subcarinal lymph node (7:129) Heart, pericardium, and thoracic vessels: The thoracic aorta is normal in caliber. The cardiac chambers are normal in size. Coronary artery atherosclerotic calcifications are noted, although the study is not optimized for coronary assessment. No pericardial effusion or thickening. Bones and soft tissues: Unchanged sclerotic metastases in the anterior ninth vertebral body and lateral right sixth rib. Upper abdomen: No abnormality in the imaged upper abdomen. Localizer images: No additional findings. IMPRESSION IMPRESSION: 1. No evidence of pulmonary emboli 2. Unchanged size of previously described pulmonary nodules 3. Bilateral bronchial wall thickening. There are some tiny clustered nodules in a tree-in-bud distribution in the right upper lobe which are most likely infectious/inflammatory 4. Unchanged enlarged mediastinal lymph nodes 5. Unchanged sclerotic skeletal metastases Network Applications Specialist: [facility] Transcribe Date/Time: Nov 19 2024 3:21P Dictated by : KATHRYN MARROQUIN MD This examination was interpreted and the report reviewed and electronically signed by: KATHRYN MARROQUIN MD on Nov 19 2024 3:42PM EST [facility] No Panel Informationon 11-19 Radiology Study observation (narrative) [facility] XR Chest PA and Lateralon IMPRESSION: No acute radiographic abnormality. Known pulmonary nodules in this patient with history of right lower non-small cell adenocarcinoma are not well evaluated radiographically. Network Applications Specialist: [facility] Transcribe Date/Time: Nov 19 2024 12:27P Dictated by : GARETT SAL MD This examination was interpreted and the report reviewed and electronically signed by: GARETT SAL MD on Nov 19 2024 12:29PM [facility] DIVISION OF RADIOLOGY * * *Final Report* * * DATE OF EXAM: Nov 19 2024 12:25PM [id number] - XR CHEST 2V FRONTAL/LAT / PROCEDURE REASON: multiple diagnoses * * * * Physician Interpretation * * * * EXAMINATION: CHEST RADIOGRAPH (2 VIEW FRONTAL & LATERAL) CLINICAL HISTORY: Dyspnea and respiratory abnormalities Dyspnea and respiratory abnormalities MQ: XC2_6 EXAM DATE/TIME: 11/19/2024 12:25 PM COMPARISON: Correlation made to CT chest dated 08/10/2023 RESULT: Lines, tubes, and devices: None. Lungs and pleura: No consolidation. The known pulmonary nodules in this patient with history of right lower non-small cell adenocarcinoma are not well evaluated radiographically. No pleural effusion. No pneumothorax. Cardiomediastinal silhouette: Normal cardiomediastinal silhouette. Bones and soft tissues: Degenerative changes. Surgical clips in the upper abdomen. DIVISION OF RADIOLOGY Provider, [facility] - 11/19/2024 * * *Final Report* * * DATE OF EXAM: Nov 19 2024 12:25PM [id number] - XR CHEST 2V FRONTAL/LAT / PROCEDURE REASON: multiple diagnoses * * * * Physician Interpretation * * * * EXAMINATION: CHEST RADIOGRAPH (2 VIEW FRONTAL & LATERAL) CLINICAL HISTORY: Dyspnea and respiratory abnormalities Dyspnea and respiratory abnormalities MQ: XC2_6 EXAM DATE/TIME: 11/19/2024 12:25 PM COMPARISON: Correlation made to CT chest dated 08/10/2023 RESULT: Lines, tubes, and devices: None. Lungs and pleura: No consolidation. The known pulmonary nodules in this patient with history of right lower non-small cell adenocarcinoma are not well evaluated radiographically. No pleural effusion. No pneumothorax. Cardiomediastinal silhouette: Normal cardiomediastinal silhouette. Bones and soft tissues: Degenerative changes. Surgical clips in the upper abdomen. IMPRESSION IMPRESSION: No acute radiographic abnormality. Known pulmonary nodules in this patient with history of right lower non-small cell adenocarcinoma are not well evaluated radiographically. Network Applications Specialist: JAMIR Transcribe Date/Time: Nov 19 2024 12:27P Dictated by : GARETT SAL MD This examination was interpreted and the report reviewed and electronically signed by: GARETT SAL MD on Nov 19 2024 12:29PM EST [facility] XR Chest PA and LateralOrder ed By: [facility] Provider on 11-19-2024 [facility] HbA1c (Bld)Ordered By: Lyndsay Castro on 09-30-2024 Average glucose Estimated from glycated hemoglobin (Bld) [Mass/Vol] 131 mg/dL [facility] Comment on above: eAG: (Estimated aver age glucose) is a calculated value from HgbA1c and is customer service representative of the average blood glucose level in the last 2-3 month period. HbA1c (Bld) [Mass fraction] 6.2 % High 4.3 - 5.6 % [facility] Comment on above: [place] Diabetes As sociation guidelines indicate that patients with HgbA1c in the range 5.7-6.4% are at increased risk for development of diabetes, and intervention by lifestyle modification may be beneficial. HgbA1c greater or equal to 6.5% is considered diagnostic of diabetes. Interpretation and review of laboratory results Abnormal [facility] GLUCOSE, BLOOD (POC)on 09-15 Glucose [Mass/Vol] 128 mg/dL Abnormal 74 - 99 mg/dL [facility] Comment on above: Location:[facility], [address] [place] [address], [id number] The Accu-Chek Inform II glucose meter has not been approved for testing on patients receiving intensive medical intervention or therapy and results from this point of care glucose test should not be used for patient management decisions in these cases. Inaccurate results may also occur from other interfering factors, such as N-acetylcysteine (blood concentrations of greater than 5mg/dL), galactose, extremes of hematocrit (<10 or >65), or high doses of ascorbic acid (vitamin C) greater than 3mg/dL. Consider alternate testing mechanisms (e.g. core lab, blood gas instrument) in the above situations. Interpretation and review of laboratory results Abnormal [facility] NM PET/CT SKULL-THIGH SUBQon 09-15-2024 NM PET/CT SKULL-THIGH SUBQ * * *Final Report* * * * * * SEE BOTTOM OF REPORT FOR ADDENDED TEXT * * * DATE OF EXAM: Sep 15 2024 12:54PM MDP 0063 - NM PET/CT SKULL-THIGH SUBQ / PROCEDURE REASON: C34.90-Malignant neoplasm of unspecified part of unspecified bronchus or lung (H * * * * Physician Interpretation * * * * * * * * * * * * ORIGINAL REPORT * * * * * * * * EXAMINATION: BODY FDG PET-CT CLINICAL HISTORY: History of pulmonary adenocarcinoma with osseous metastases status post Pembrolizumab. EXAM CATEGORY: Subsequent treatment strategy. TECHNIQUE: Radiopharmaceutical was administered intravenously followed by PET imaging from the eyes to thighs. Free breathing, low dose CT of the same body region was acquired without IV contrast for attenuation correction and anatomic localization. Unenhanced imaging is limited for the evaluation of some pathology and the acquired CT was not designed to produce diagnostic CT scan quality. Physiologic/non-patholog ic uptake in some body regions could confound or obscure some pathology. * CT Dose-Length Product (DLP): 425 mGy*cm * CT Dose Reduction Employed: Yes * Blood glucose: 128 mg/dL * Injection site: Right Forearm-Antecubital * Injected activity: 14.2 mCi * Uptake Time: 56 minutes * Radiopharmaceutical: [id number] (FDG) COMPARISON: FDG PET/CT 05/05/2024, 02/18/2024, 11/12/2023 CORRELATION: CT chest, abdomen and pelvis 08/10/2023 RESULT: REFERENCES: FDG uptake is used as a surrogate marker for glucose metabolism. All reported standardized uptake values represent maximum SUV (SUVmax) per body weight, unless otherwise specified. SUV reference values, as follows: * Blood Pool (Descending Aorta): SUVmax 3.0 * Background Liver: SUVmax 3.5; SUVmean 2.6 Localizer Images: No additional findings. HEAD AND NECK: Head: No radiotracer avid lesion or mass effect in the imaged intracranial compartment. Aerodigestive Tract: Stable nodular in the bilateral parotid glands, for example: * Left superficial parotid gland lesion (3:30, SUV max 4.8, previously 4.9) * Right superficial parotid gland lesions (3:27, SUV max 3.9, previously 3.7) Lymph Nodes: No radiotracer avid lymphadenopathy. Neck Soft Tissues: No radiotracer avid thyroid nodule. CHEST: Lungs and Pleura: No radiotracer avid mass, nodule, or consolidation. No pleural effusion. No increased radiotracer uptake associated with the lung nodule(s) measuring less than 8 mm. However, PET is often not sensitive for lung nodules smaller than 8 mm. For example: * 3 mm right upper lobe nodule (3:89), previously 3 mm * 9 mm right lower lobe nodule (3:140), previously 9 mm * 10 mm right lower lobe nodule (3:101) Lymph Nodes: Interval increase in size and FDG avidity of multiple hilar and mediastinal lymph nodes, for example: * 1.5 x 1.5 cm right lower paratracheal lymph node (3:87, SUV max 15.8), previously 1.3 x 0.9 cm (SUV max 5.8) * 2.7 x 1.7 cm right lower paratracheal lymph node (3:98, SUV max 19.6), previously 2.0 x 1.0 cm (SUV max 4.9) * 1.7 x 1.5 cm subcarinal lymph node (3:105, SUV max 24.9), previously 1.3 x 1.0 cm (SUV max 9.2) * Right hilar lymph node (3:111, SUV max 14.1, previously 5.7) Cardiovascular: Blood pool activity. No pericardial effusion. Normal heart size. Thoracic aortic and coronary artery calcifications. Chest Wall: No radiotracer avid soft tissue lesion. ABDOMEN AND PELVIS: Hepatobiliary: No radiotracer avid lesion. No measurable mass. Hepatic steatosis. Cholecystectomy. Spleen: No radiotracer avid lesion. No splenomegaly. Pancreas: No radiotracer avid lesion. Adrenals: No radiotracer avid nodule. Urinary Tract: Physiologic radiotracer excretion in the renal collecting systems and urinary bladder. No hydronephrosis. GI Tract: No radiotracer avid lesion. No bowel dilation. Colonic diverticulosis. Peritoneum: No radiotracer avid lesion. No ascites. Lymph Nodes: Stable mildly metabolically active portacaval lymph nodes, for example, 0.6 cm josé caval lymph node (3:175, SUV max 3.1). Vasculature: Blood pool activity. Anatomic variant retroaortic left renal vein. Vascular calcifications without an abdominal aortic aneurysm. Pelvic Organs: No radiotracer avid lesion. Hysterectomy. MUSCULOSKELETAL: Bones: Scattered osseous metastases, for example: * New focal increased uptake in the anterior T9 vertebral body without definite osseous lesion (3:130, SUV max 6.4) * Right medial clavicular head (3:71, SUV max 3.7, previously 4.2) * Right lateral sixth rib (3:107, SUV max 3.9, previously 3.4) * Right iliac bone (3:224, SUV max 4.7, previously 4.9) Soft Tissues: No radiotracer avid lesion. IMPRESSION: Since 05/05/2024, PRIMARY DISEASE SITE: * No new metabolically active lung nodules. A few stable nonavid pulmonary nodules can be assessed on follow-up studies. Continue surveillance imaging/chest CT, as warranted clinically. NO (more content not included)... Normal [facility] CBC W Auto Differential pane l (Bld)on 05-27-2024 Basophils (Bld) [#/Vol] 0.07 10*3/uL [facility] Basophils/100 WBC (Bld) 0.9 % [facility] Differential cell count method Nom (Bld) Auto [facility] Eosinophils (Bld) [#/Vol] 0.23 10*3/uL [facility] Eosinophils/100 WBC (Bld) 3.0 % [facility] Erythrocyte distribution width (RBC) [Ratio] 15.2 % High 11.5 - 15.0 % [facility] Hematocrit (Bld) [Volume fraction] 43.4 % 36.0 - 46.0 % [facility] Hemoglobin (Bld) [Mass/Vol] 14.4 g/dL 11.5 - 15.5 g/dL [facility] Immature granulocytes (Bld) [#/Vol] 0.04 10*3/uL [facility] Immature granulocytes/100 WBC (Bld) 0.5 % [facility] Interpretation and review of laboratory results Abnormal [facility] Lymphocytes (Bld) [#/Vol] 1.47 10*3/uL [facility] Lymphocytes/100 WBC (Bld) 19.0 % [facility] MCH (RBC) [Entitic mass] 28.1 pg 26.0 - 34.0 pg [facility] MCHC (RBC) [Mass/Vol] 33.2 g/dL 30.5 - 36.0 g/dL [facility] MCV (RBC) [Entitic vol] 84.6 fL 80.0 - 100.0 fL [facility] Monocytes (Bld) [#/Vol] 0.50 10*3/uL [facility] Monocytes/100 WBC (Bld) 6.5 % [facility] Neutrophils (Bld) [#/Vol] 5.44 10*3/uL [facility] Neutrophils/100 WBC (Bld) 70.1 % [facility] Nucleated RBC (Bld) [#/Vol] NINF [facility] Nucleated RBC/100 WBC (Bld) [Ratio] 0.0 % /100 WBC [facility] Platelet mean volume (Bld) [Entitic vol] 10.0 fL 9.0 - 12.7 fL [facility] Platelets (Bld) [#/Vol] 219 10*3/uL [facility] RBC (Bld) [#/Vol] 5.13 10*6/uL 3.90 - 5.2 0 m/uL [facility] WBC (Bld) [#/Vol] 7.75 10*3/uL [facility] CORTISOL, SERUMon 05-27-2024 Cortisol [Mass/Vol] 10.7 ug/dL 4.8 - 19 .5 ug/dL [facility] Comment on above: Provided reference r tara is from 6-10 AM sample collection time. Cortisol Reference Range: 6-10 AM = 4.8-19.5 ug/dL, 4-8 PM = 2.5-11.9 ug/dL Comprehensive metabolic 2000 panelOrdered By: Felicia Garcia on 05-27-2024 Albumin [Mass/Vol] 4.4 g/dL 3.9 - 4.9 g/dL [facility] ALP [Catalytic activity/Vol] 133 U/L High 34 - 123 U/L [facility] ALT [Catalytic activity/Vol] 19 U/L 7 - 38 U/L [facility] Anion gap [Moles/Vol] 12 mmol/L 8 - 15 mmol/L [facility] AST [Catalytic activity/Vol] 14 U/L 13 - 35 U/L [facility] Bilirubin [Mass/Vol] mg/dL Low 0.2 - 1 .3 mg/dL [facility] Calcium [Mass/Vol] 9.7 mg/dL 8.5 - 10. 2 mg/dL [facility] Chloride [Moles/Vol] 101 mmol/L 98 - 10 7 mmol/L [facility] CO2 [Moles/Vol] 26 mmol/L 22 - 30 mmol/L [facility] Creatinine [Mass/Vol] 0.77 mg/dL 0.58 - 0.96 mg/dL [facility] GFR/1.73 sq M.predicted among non-blacks MDRD (S/P/Bld) [Vol rate/Area] 87 mL/min/{1.73_m2} - PINF [facility] Comment on above: Estimated Glomerular Filtration Rate (eGFR) is calculated using the 2020 CKD-EPI creatinine equation. This equation utilizes serum creatinine, sex, and age as parameters. The creatinine assay has traceable calibration to isotope dilution-mass spectrometry. Refer to KDIGO guidelines for clinical interpretation. In patients with unstable renal function, e.g. those with acute kidney injury, the eGFR may not accurately reflect actual GFR. Glucose [Mass/Vol] 111 mg/dL High 74 - 99 mg/dL [facility] Comment on above: The [place] Di[employer] (ADA) provides guidance for cutoff values for fasting glucose and random glucose. The ADA defines fasting as no caloric intake for at least 8 hours. Fasting plasma glucose results between 100 to 125 mg/dL indicate increased risk for diabetes (prediabetes). Fasting plasma glucose results greater than or equal to 126 mg/dL meet the criteria for diagnosis of diabetes. In the absence of unequivocal hyperglycemia, results should be confirmed by repeat testing. In a patient with classic symptoms of hyperglycemia or hyperglycemic crisis, random plasma glucose results greater than or equal to 200 mg/dL meet the criteria for diagnosis of diabetes. Reference: Standards of Medical Care in Diabetes 2016, [place] [employer]. Diabetes Care. 2016.39(Suppl 1). Interpretation and review of laboratory results Abnormal [facility] Potassium [Moles/Vol] 2.8 mmol/L Low 3.7 - 5.1 mmol/L [facility] Comment on above: Checked and Verified Protein [Mass/Vol] 7.8 g/dL 6.3 - 8.0 g/dL [facility] Sodium [Moles/Vol] 139 mmol/L 136 - 144 mmol/L [facility] Urea nitrogen [Mass/Vol] 14 mg/dL 7 - 21 mg/dL [facility] No Panel Informationon 05-27 Interpretation and review of laboratory results Normal [facility] T4 FREE/FREE THYROXINEon Free T4 [Mass/Vol] 1.2 ng/dL 0.9 - 1.7 ng/dL [facility] Cardiology Visit Reporton Cardiology Visit Report [facility] [address] [place] [address] OFFICE VISIT Date of Service: 05/08/24 MR#: [id number] Acct: [id number] Name: LATA SMITH Rep #: [id number] : 1960 Provider: Dr. Les Dennis MD Age/Sex: 63/F [place] [facility] [place] Status: Signed HPI HPI History of Present Illness Details: This is a 63-year-old female who presents here today for a cardiovascular follow-up visit. On October 082019 she had an acute inferior wall myocardial infarction. She underwent an urgent heart catheterization which she had stenting to her RCA and right posterior lateral. Echocardiogram done at that time demonstrated a moderate concentric LVH with an ejection fraction of 75%. Stage I diastolic dysfunction. She also has non-small cell carcinoma for which she is on Keytruda. From a cardiac standpoint, the patient is doing well. She denies any palpitations, chest pain, pressure or heaviness. She does have occasional SOB with exertion and rest. She attributes this to her COPD. She states this is nothing new or worsening. She denies orthopnea, and PND. She does not have bleeding issues; no blood in urine, stool or nosebleeds. She denies any decrease in energy level, myalgias, or claudication. She does not have edema, or sudden weight gain. She denies dizziness, lightheadedness, syncopal or near syncopal episodes, and headaches. 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: No Accompanied by: Self Is patient in pain?: No Allergies Penicillins Allergy (Intermediate, Verified 05/08/24 14:48) Hives amoxicillin trihydrate (From Augmentin) Allergy (Verified 05/08/24 14:48) Hives potassium clavulanate (From Augmentin) Allergy (Verified 05/08/24 14:48) Hives Medications ???Medication ???Instructions ???Recorded ???Confirmed ???Type albuterol sulfate 90 mcg/actuation 2 puff inhalation PRN PRN 03/04/14 05/08/24 History aerosol inhaler Shortness Of Breath dicyclomine 10 mg capsule 10 mg PO BID PRN 07/05/20 05/08/24 History fluticasone propionate 50 2 spray intranasal DAILY PRN 07/05/20 05/08/24 History mcg/actuation nasal spray,suspension (Flonase Allergy Relief) polyethylene glycol 3350 17 17 g PO DAILY PRN 07/05/20 05/08/24 History gram/dose oral powder (Miralax) simethicone 80 mg chewable tablet 80 mg PO 4-6XD PRN 07/05/20 05/08/24 History (Gas Relief (simethicone)) trazodone 50 mg tablet 50 mg PO QHS PRN 07/05/20 05/08/24 History pembrolizumab 25 mg/mL intravenous mg .Route .q3wks 01/11/21 05/08/24 History solution (Keytruda) cetirizine 10 mg tablet 10 mg PO DAILY PRN 01/12/22 05/08/24 History cyclobenzaprine 10 mg tablet 10 mg PO BID PRN 01/12/22 05/08/24 History oxycodone-acetaminophen 5 mg-325 1 tab PO Q8H PRN 01/12/22 05/08/24 History mg tablet potassium chloride 20 mEq oral 40 meq PO DAILY 01/12/22 05/08/24 History packet rizatriptan 10 mg tablet 10 mg PO ONCE PRN 01/12/22 05/08/24 History ropinirole 0.25 mg tablet 0.25 mg PO DAILY PRN 01/12/22 05/08/24 History rosuvastatin 40 mg tablet 40 mg PO DAILY 01/12/22 05/08/24 History topiramate 50 mg tablet 50 mg PO DAILY PRN 01/12/22 05/08/24 History aspirin 81 mg tablet,delayed 81 mg PO DAILY@0800 #90 tabs 01/12/23 05/08/24 Rx release acetaminophen 300 mg-codeine 30 mg 1 tab PO PRN 03/19/23 05/08/24 History tablet hydrochlorothiazide 25 mg tablet 25 mg PO DAILY #90 tabs 05/08/24 05/08/24 Rx losartan 50 mg tablet (Cozaar) 25 mg (1/2 x 50 mg) PO DAILY #90 05/08/24 05/08/24 Rx tabs verapamil 120 mg 24 hr 120 mg PO DAILY #90 caps 05/08/24 05/08/24 Rx capsule,extended release Have you fallen in the past year?: No [facility] Medical History Essential hypertension History of ST elevation myocardial infarction (STEMI) (10/09/19) Tobacco abuse Metastatic lung carcinoma Asthma Arteriosclerosis of coronary artery in patient with history of myocardial infarction COPD (chronic obstructive pulmonary disease) Surgical History (Updated 05/08/24 @ 14:50 by Mabel Kidd RN) S/P trigger finger release History of coronary artery stent placement (10/09/19) History of cholecystectomy History of appendectomy History of carpal tunnel release of both wrists History of hysterectomy Family History Brother Cancer lung Social History Smoking Status: Light Smoker (<10/day) quit status: quit date established alc (more content not included)... Normal [facility] GLUCOSE, BLOOD (POC)on 05-05 Glucose [Mass/Vol] 114 mg/dL Abnormal 74 - 99 mg/dL [facility] Comment on above: Location:[facility] [place], [address] The Accu-Chek Inform II glucose meter has not been approved for testing on patients receiving intensive medical intervention or therapy and results from this point of care glucose test should not be used for patient management decisions in these cases. Inaccurate results may also occur from other interfering factors, such as N-acetylcysteine (blood concentrations of greater than 5mg/dL), galactose, extremes of hematocrit (<10 or >65), or high doses of ascorbic acid (vitamin C) greater than 3mg/dL. Consider alternate testing mechanisms (e.g. core lab, blood gas instrument) in the above situations. 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 EXAM CATEGORY: Subsequent treatment strategy. TECHNIQUE: Radiopharmaceutical was administered IV followed by PET imaging from eyes to thighs. Free breathing, low dose CT of the same body region was acquired without IV contrast for attenuation correction and anatomic localization. * CT Radiation Dose: Integrated CT Dose-Length Product (DLP) for this visit = 442 mGy*cm * CT Dose Reduction Employed: Yes * Blood glucose (mg/dL): 114 * Radiopharmaceutical Uptake Time: 54 minutes * Radiopharmaceutical INjected Activity: 16.3 mCi * Radiopharmaceutical: H78-Tyvokeehyenwtjzuxq (FDG) * All standardized uptake values reported represent maximum SUV (SUVmax) unless otherwise specified, per body weight. COMPARISON: 02/18/2024 FDG PET/CT CORRELATION: None FINDINGS: REFERENCES: SUV reference: * Blood pool activity (descending aorta): SUV max 2.2, prior 2.7 * Background liver activity: SUV max 2.8, prior 2.8 * Background liver activity: SUV mean 2.1, prior 2.3 [employer]ling [employer] Marker (topogram) images: Unremarkable. HEAD AND NECK: Imaged Head: Visualized intracranial compartment demonstrates no FDG avid lesion, hydrocephalus, or mass effect. Neck and Lymph Nodes: No FDG avid or pathologically enlarged cervical lymphadenopathy. Thyroid: No FDG avid thyroid nodule. Aerodigestive tract: No FDG avid lesion along the mucosal space. No obstructive lesion, airway is patent. CHEST: Lungs and Airways: No FDG avid lung nodule. Pleura and Pericardium: No FDG avid pleural nodule. No pleural effusion. Cardiovascular: Physiologic FDG activity in the blood pool. Normal cardiac size. No pericardial effusion. Mediastinum and Lymph Nodes: FDG avid mediastinal lymphadenopathy demonstrates interval increase FDG uptake, as follows: Right precarinal, SUV 4.9, 1.4 x 1.1 cm, image 59, prior SUV 3.6, 1.4 x 0.8 cm, image 60. Subcarinal, SUV 11.1, 1 x 0.8 cm, image 67, prior SUV 5.7, 1 x 1 cm, image 65. Right hilar, SUV 5.7, image 70 not measurable on the noncontrast CT, prior SUV 6.1. Anterior chest wall: : Unremarkable. ABDOMEN AND PELVIS: Hepatobiliary: No FDG avid liver lesion. No measurable intrahepatic lesion on the noncontrast CT component. No hepatomegaly. Cholecystectomy Spleen: No FDG avid splenic lesion. No splenomegaly. Pancreas: No FDG avid pancreatic lesion. Unremarkable pancreas. Adrenals: No FDG avid adrenal nodule. Urinary Tract: Physiologic FDG excretion in the renal collecting systems and bladder. GI Tract: Physiologic FDG excretion throughout the gastrointestinal tract. No bowel obstruction. Peritoneum: No FDG avid peritoneal nodule. No ascites. Vasculature: Major intra-abdominal and intrapelvic vasculature is unremarkable. Retroperitoneum and Lymph Nodes: No FDG avid or pathologically enlarged lymphadenopathy. Pelvis: No FDG avid pelvic lesion. Pelvic visceral organs are unremarkable. MUSCULOSKELETAL: Osseous: FDG avid bone metastases are stable, as follows: Right iliac bone, SUV 5, image 140, sclerotic expansile mass, prior SUV 5.2, image 140. Right clavicular head expansile sclerotic mass SUV 4.2, image 45, prior SUV 4.4, image 45. Right lateral sixth rib expansile sclerotic lesion, SUV 3, image 67, prior SUV 3.4 image 67. Soft Tissues: No FDG avid soft tissue lesion is identified. IMPRESSION: Primary disease: No metabolically active lung nodule. Paul disease: Mediastinal and right hilar metastatic metabolically active lymphadenopathy is stable since 02/18/2024 5 from mild interval increased metabolic uptake which can be seen in the setting of immune check point inhibitor treatment (a.k.a immune mediated treatment response). No new metastatic lymphadenopathy. Metastatic disease: Metastatic bone disease with expansile mildly metabolically active lesions has been stable since 02/18/2024. No new bone lesion. No metabolically active liver or solid organ metastasis * * * * * * * * ADDENDUM #1 * * * * * * * * Per clinical service request, RECIST addendum is made. Initial report was dictated by Dr. Ruddy Tolentino Baseline study 09/16/2020: Comparison CT 02/18/2024; abstract date 03/06/2024 ==== CLINICAL TRIAL TUMOR METRICS RESPONSE CRITERIA: RECIST 1.1 FOLLOW-UP TARGET LESIONS (TL): (<5 mm = immeasurable disease) See EPIC Abstract Note for selected TLs; Deras Images saved in [employer] Chest: * Target lesi (more content not included)... Normal [facility] CBC W Auto Differential pane l (Bld)on 04-17-2024 Basophils (Bld) [#/Vol] 0.07 10*3/uL [facility] Basophils/100 WBC (Bld) 0.9 % [facility] Differential cell count method Nom (Bld) Auto [facility] Eosinophils (Bld) [#/Vol] 0.22 10*3/uL [facility] Eosinophils/100 WBC (Bld) 2.8 % [facility] Erythrocyte distribution width (RBC) [Ratio] 15.6 % High 11.5 - 15.0 % [facility] Hematocrit (Bld) [Volume fraction] 43.3 % 36.0 - 46.0 % [facility] Hemoglobin (Bld) [Mass/Vol] 14.2 g/dL 11.5 - 15.5 g/dL [facility] Immature granulocytes (Bld) [#/Vol] 0.03 10*3/uL [facility] Immature granulocytes/100 WBC (Bld) 0.4 % [facility] Interpretation and review of laboratory results Abnormal [facility] Lymphocytes (Bld) [#/Vol] 1.39 10*3/uL [facility] Lymphocytes/100 WBC (Bld) 17.7 % [facility] MCH (RBC) [Entitic mass] 27.8 pg 26.0 - 34.0 pg [facility] MCHC (RBC) [Mass/Vol] 32.8 g/dL 30.5 - 36.0 g/dL [facility] MCV (RBC) [Entitic vol] 84.9 fL 80.0 - 100.0 fL [facility] Monocytes (Bld) [#/Vol] 0.51 10*3/uL NINF [facility] Monocytes/100 WBC (Bld) 6.5 % [facility] Neutrophils (Bld) [#/Vol] 5.65 10*3/uL [facility] Neutrophils/100 WBC (Bld) 71.7 % [facility] Nucleated RBC (Bld) [#/Vol] NINF [facility] Nucleated RBC/100 WBC (Bld) [Ratio] 0.0 % /100 WBC [facility] Platelet mean volume (Bld) [Entitic vol] 10.3 fL 9.0 - 12.7 fL [facility] Platelets (Bld) [#/Vol] 228 10*3/uL [facility] RBC (Bld) [#/Vol] 5.10 10*6/uL 3.90 - 5.2 0 m/uL [facility] WBC (Bld) [#/Vol] 7.87 10*3/uL [facility] Comprehensive metabolic 2000 panelOrdered By: Katie Glass on 04-17-2024 Albumin [Mass/Vol] 4.2 g/dL 3.9 - 4.9 g/dL [facility] ALP [Catalytic activity/Vol] 127 U/L High 34 - 123 U/L [facility] ALT [Catalytic activity/Vol] 20 U/L 7 - 38 U/L [facility] Anion gap [Moles/Vol] 9 mmol/L 8 - 15 mmol/L [facility] AST [Catalytic activity/Vol] 16 U/L 13 - 35 U/L [facility] Bilirubin [Mass/Vol] 0.2 mg/dL 0.2 - 1 .3 mg/dL [facility] Calcium [Mass/Vol] 9.5 mg/dL 8.5 - 10. 2 mg/dL [facility] Chloride [Moles/Vol] 104 mmol/L 98 - 10 7 mmol/L [facility] CO2 [Moles/Vol] 26 mmol/L 22 - 30 mmol/L [facility] Creatinine [Mass/Vol] 0.77 mg/dL 0.58 - 0.96 mg/dL [facility] GFR/1.73 sq M.predicted among non-blacks MDRD (S/P/Bld) [Vol rate/Area] 87 mL/min/{1.73_m2} - PINF [facility] Comment on above: Estimated Glomerular Filtration Rate (eGFR) is calculated using the 2020 CKD-EPI creatinine equation. This equation utilizes serum creatinine, sex, and age as parameters. The creatinine assay has traceable calibration to isotope dilution-mass spectrometry. Refer to KDIGO guidelines for clinical interpretation. In patients with unstable renal function, e.g. those with acute kidney injury, the eGFR may not accurately reflect actual GFR. Glucose [Mass/Vol] 104 mg/dL High 74 - 99 mg/dL [facility] Comment on above: The [place] Di[employer] (ADA) provides guidance for cutoff values for fasting glucose and random glucose. The ADA defines fasting as no caloric intake for at least 8 hours. Fasting plasma glucose results between 100 to 125 mg/dL indicate increased risk for diabetes (prediabetes). Fasting plasma glucose results greater than or equal to 126 mg/dL meet the criteria for diagnosis of diabetes. In the absence of unequivocal hyperglycemia, results should be confirmed by repeat testing. In a patient with classic symptoms of hyperglycemia or hyperglycemic crisis, random plasma glucose results greater than or equal to 200 mg/dL meet the criteria for diagnosis of diabetes. Reference: Standards of Medical Care in Diabetes 2016, [place] [employer]. Diabetes Care. 2016.39(Suppl 1). Interpretation and review of laboratory results Abnormal [facility] Potassium [Moles/Vol] 4.2 mmol/L 3.7 - 5.1 mmol/L [facility] Protein [Mass/Vol] 7.4 g/dL 6.3 - 8.0 g/dL [facility] Sodium [Moles/Vol] 139 mmol/L 136 - 144 mmol/L [facility] Urea nitrogen [Mass/Vol] 14 mg/dL 7 - 21 mg/dL [facility] LACTATE DEHYDROGENASEon 04-07 LDH [Catalytic activity/Vol] 203 U/L 135 - 214 U/L [facility] Comment on above: Hemolysis present. T he origin of the hemolysis, in vitro versus an in vivo hemolytic process, cannot be distinguished via this assay alone. In vitro hemolysis may lead to non-physiological (spurious) elevation in lactate dehydrogenase (LDH) results. The result should be interpreted in context of the clinical setting and other test results. Suggest reorder as clinically indicated. LDH [Catalytic activity/Vol] on 04-17-2024 Interpretation and review of laboratory results Normal [facility] HbA1c (Bld)on 12-12-2023 Average glucose Estimated from glycated hemoglobin (Bld) [Mass/Vol] 134 mg/dL [facility] HbA1c (Bld) [Mass fraction] 6.3 % High 4.3 - 5.6 % [facility] NM PET/CT SKULL-THIGH SUBSEQ UENTon 11-12-2023 [facility] No Panel Informationon 08-10 [facility] STREP A MOLECULAR (POC)on Procedural Control Valid [facility] Strep A (POCT) Negative Negative [facility] SPIROMETRY WITH DILATOR IF O BSTRUCTEDon 03-19-2023 MRG27-16% POST (L/S) 0.45 L/S [facility] GHT39-70% PRE (L/S) 0.42 L/S [facility] FEV1 PRE (L) 1.09 L [facility] FEV1/FVC POST (%) 51 % [facility] FEV1/FVC PRE (%) 56 % [facility] FEV1_POST (L) 1.08 L [facility] FVC POST (L) 2.13 L [facility] FVC PRE (L) 1.96 L [facility] PEF POST (L/S) 2.67 L/S [facility] PEF PRE (L/S) 2.69 L/S [facility] US THYROID/PARATHYROIDon [facility] No Panel Informationon 02-09 [facility] No Panel Informationon 11-13 [facility] No Panel Informationon 08-[address] [facility] [address] ABDOMEN W IVCONon [facility] CT ABDOMEN W IVCONon 022 [facility] CNCOon 07-06-[address] [facility] [address] Text Normal [facility] Vital Signs Date Time Vital Sign Value Performing Clinician Facility 04-24-2025 14:31-0400 Diastolic blood pressure 76 mm[Hg] Georgina Morgan MD Work Phone: [facility] 04-24-2025 14:31-0400 Heart rate 102 /min Georgina Morgan MD Work Phone: [facility] 04-24-2025 14:31-0400 Respiratory rate 17 /min Georgina Morgan MD Work Phone: [facility] 04-24-2025 14:31-0400 SaO2% (BldA) [Mass fraction] 91 % Georgina Morgan MD Work Phone: [facility] 04-24-2025 14:31-0400 Systolic blood pressure 112 mm[Hg] Georgina Morgan MD Work Phone: [facility] 04-08-2025 13:27-0400 Body mass index (BMI) [Ratio] 35.35 kg/m2 Sandoval Burgess MD Work Phone: [facility] 04-08-2025 13:27-0400 Body temperature 97.3 [degF] Sandoval Burgess MD Work Phone: [facility] 04-08-2025 13:27-0400 Body weight 82.1 kg Sandoval Burgess MD Work Phone: [facility] 04-08-2025 13:27-0400 Diastolic blood pressure 53 mm[Hg] Sandoval Burgess MD Work Phone: [facility] 04-08-2025 13:27-0400 Heart rate 90 /min Sandoval Burgess MD Work Phone: [facility] 04-08-2025 13:27-0400 SaO2% (BldA) [Mass fraction] 95 % Sandoval Burgess MD Work Phone: [facility] 04-08-2025 13:27-0400 Systolic blood pressure 83 mm[Hg] Sandoval Burgess MD Work Phone: [facility] 03-20-2025 09:39-0400 Body mass index (BMI) [Ratio] 35.52 kg/m2 Georgina Morgan MD Work Phone: [facility] 03-20-2025 09:39-0400 Body weight 85.28 kg Georgina Morgan MD Work Phone: [facility] 03-20-2025 09:39-0400 Diastolic blood pressure 58 mm[Hg] Georgina Morgan MD Work Phone: [facility] 03-20-2025 09:39-0400 Heart rate 91 /min Georgina Morgan MD Work Phone: [facility] 03-20-2025 09:39-0400 Respiratory rate 14 /min Georgina Morgan MD Work Phone: [facility] 03-20-2025 09:39-0400 SaO2% (BldA) [Mass fraction] 94 % Georgina Morgan MD Work Phone: [facility] 03-20-2025 09:39-0400 Systolic blood pressure 92 mm[Hg] Georgina Morgan MD Work Phone: [facility] 03-18-2025 14:47-0400 Body mass index (BMI) [Ratio] 35.52 kg/m2 Sandoval Burgess MD Work Phone: [facility] 03-18-2025 14:47-0400 Body temperature 97.81 [degF] Sandoval Burgess MD Work Phone: [facility] 03-18-2025 14:47-0400 Body weight 85.28 kg Sandoval Burgess MD Work Phone: [facility] 03-18-2025 14:47-0400 Diastolic blood pressure 58 mm[Hg] Sandoval Burgess MD Work Phone: [facility] 03-18-2025 14:47-0400 Heart rate 94 /min Sandoval Burgess MD Work Phone: [facility] 03-18-2025 14:47-0400 SaO2% (BldA) [Mass fraction] 93 % Sandoval Burgess MD Work Phone: [facility] 03-18-2025 14:47-0400 Systolic blood pressure 90 mm[Hg] Sandoval Burgess MD Work Phone: [facility] 02-25-2025 10:23-0400 Body height 154.9 cm Fiona Durant MD Work Phone: [facility] 02-25-2025 10:23-0400 Body mass index (BMI) [Ratio] 36.37 kg/m2 Fiona Durant MD Work Phone: [facility] 02-25-2025 10:23-0400 Body temperature 98.4 [degF] Fiona Durant MD Work Phone: [facility] 02-25-2025 10:23-0400 Body weight 87.3 kg Fiona Durant MD Work Phone: [facility] 02-25-2025 10:23-0400 Diastolic blood pressure 60 mm[Hg] Fiona Durant MD Work Phone: [facility] 02-25-2025 10:23-0400 Heart rate 83 /min Fiona Durant MD Work Phone: [facility] 02-25-2025 10:23-0400 Respiratory rate 18 /min Fiona Durant MD Work Phone: [facility] 02-25-2025 10:23-0400 SaO2% (BldA) [Mass fraction] 95 % Fiona Durant MD Work Phone: [facility] 02-25-2025 10:23-0400 Systolic blood pressure 138 mm[Hg] Fiona Durant MD Work Phone: [facility] 02-05-2025 13:23-0400 Diastolic blood pressure 59 mm[Hg] Treatment Wstr Work Phone: [facility] 02-05-2025 13:23-0400 Heart rate 96 /min Treatment Wstr Work Phone: [facility] 02-05-2025 13:23-0400 Respiratory rate 18 /min Treatment Wstr Work Phone: [facility] 02-05-2025 13:23-0400 SaO2% (BldA) [Mass fraction] 94 % Treatment Wstr Work Phone: [facility] 02-05-2025 13:23-0400 Systolic blood pressure 105 mm[Hg] Treatment Wstr Work Phone: [facility] 02-04-2025 14:41-0400 Body mass index (BMI) [Ratio] 36.72 kg/m2 Sandoval Burgess MD Work Phone: [facility] 02-04-2025 14:41-0400 Body temperature 97.2 [degF] Sandoval Burgess MD Work Phone: [facility] 02-04-2025 14:41-0400 Body weight 88.22 kg Sandoval Burgess MD Work Phone: [facility] 02-04-2025 14:41-0400 Diastolic blood pressure 80 mm[Hg] Sandoval Burgess MD Work Phone: [facility] 02-04-2025 14:41-0400 Heart rate 94 /min Sandoval Burgess MD Work Phone: [facility] 02-04-2025 14:41-0400 SaO2% (BldA) [Mass fraction] 96 % Sandoval Burgess MD Work Phone: [facility] 02-04-2025 14:41-0400 Systolic blood pressure 123 mm[Hg] Sandoval Burgess MD Work Phone: [facility] 01-14-2025 12:16-0400 Body mass index (BMI) [Ratio] 36.44 kg/m2 Treatment Wstr Work Phone: [facility] 01-14-2025 12:16-0400 Body temperature 97.81 [degF] Treatment Wstr Work Phone: [facility] 01-14-2025 12:16-0400 Body weight 87.54 kg Treatment Wstr Work Phone: [facility] 01-14-2025 12:16-0400 Diastolic blood pressure 68 mm[Hg] Treatment Wstr Work Phone: [facility] 01-14-2025 12:16-0400 Heart rate 73 /min Treatment Wstr Work Phone: [facility] 01-14-2025 12:16-0400 Respiratory rate 16 /min Treatment Wstr Work Phone: [facility] 01-14-2025 12:16-0400 Systolic blood pressure 103 mm[Hg] Treatment Wstr Work Phone: [facility] 01-13-2025 13:33-0400 Body mass index (BMI) [Ratio] 37.17 kg/m2 Carrie Preciado [employer] SUPERVISOR.CHANGE MANAGEMENT DIRECTOR Work Phone: [facility] 01-13-2025 13:33-0400 Body temperature 97.9 [degF] Carrie Preciado [employer] SUPERVISOR.CHANGE MANAGEMENT DIRECTOR Work Phone: [facility] 01-13-2025 13:33-0400 Body weight 89.3 kg Carrie Preciado [employer] SUPERVISOR.CHANGE MANAGEMENT DIRECTOR Work Phone: [facility] 01-13-2025 13:33-0400 Diastolic blood pressure 76 mm[Hg] Carrie Preciado [employer] SUPERVISOR.CHANGE MANAGEMENT DIRECTOR Work Phone: [facility] 01-13-2025 13:33-0400 Heart rate 79 /min Carrie Preciado [employer] SUPERVISOR.CHANGE MANAGEMENT DIRECTOR Work Phone: [facility] 01-13-2025 13:33-0400 SaO2% (BldA) [Mass fraction] 94 % Carrie Preciado [employer] SUPERVISOR.CHANGE MANAGEMENT DIRECTOR Work Phone: [facility] 01-13-2025 13:33-0400 Systolic blood pressure 118 mm[Hg] Carrie Preciado [employer] SUPERVISOR.CHANGE MANAGEMENT DIRECTOR Work Phone: [facility] 12-25-2024 13:30-0400 Body temperature 97.2 [degF] Treatment Wstr Work Phone: [facility] 12-25-2024 13:30-0400 Diastolic blood pressure 71 mm[Hg] Treatment Wstr Work Phone: [facility] 12-25-2024 13:30-0400 Heart rate 91 /min Treatment Wstr Work Phone: [facility] 12-25-2024 13:30-0400 SaO2% (BldA) [Mass fraction] 96 % Treatment Wstr Work Phone: [facility] 12-25-2024 13:30-0400 Systolic blood pressure 106 mm[Hg] Treatment Wstr Work Phone: [facility] 12-24-2024 13:42-0400 Body mass index (BMI) [Ratio] 35.78 kg/m2 Sandoval Burgess MD Work Phone: [facility] 12-24-2024 13:42-0400 Body temperature 98.29 [degF] Sandoval Burgess MD Work Phone: [facility] 12-24-2024 13:42-0400 Body weight 85.96 kg Sandoval Burgess MD Work Phone: [facility] 12-24-2024 13:42-0400 Diastolic blood pressure 70 mm[Hg] Sandoval Burgess MD Work Phone: [facility] 12-24-2024 13:42-0400 Heart rate 96 /min Sandoval Burgess MD Work Phone: [facility] 12-24-2024 13:42-0400 SaO2% (BldA) [Mass fraction] 93 % Sandoval Burgess MD Work Phone: [facility] 12-24-2024 13:42-0400 Systolic blood pressure 102 mm[Hg] Sandoval Burgess MD Work Phone: [facility] 12-04-2024 13:12-0500 Body mass index (BMI) [Ratio] 36.44 kg/m2 Treatment Wstr Work Phone: [facility] 12-04-2024 13:12-0500 Body temperature 98.01 [degF] Treatment Wstr Work Phone: [facility] 12-04-2024 13:12-0500 Body weight 87.54 kg Treatment Wstr Work Phone: [facility] 12-04-2024 13:12-0500 Diastolic blood pressure 73 mm[Hg] Treatment Wstr Work Phone: [facility] 12-04-2024 13:12-0500 Heart rate 89 /min Treatment Wstr Work Phone: [facility] 12-04-2024 13:12-0500 Respiratory rate 20 /min Treatment Wstr Work Phone: [facility] 12-04-2024 13:12-0500 SaO2% (BldA) [Mass fraction] 95 % Treatment Wstr Work Phone: [facility] 12-04-2024 13:12-0500 Systolic blood pressure 117 mm[Hg] Treatment Wstr Work Phone: [facility] 12-01-2024 17:22-0500 Body mass index (BMI) [Ratio] 35.34 kg/m2 Fiona Durant MD Work Phone: [facility] 12-01-2024 17:22-0500 Body weight 84.9 kg Fiona Durant MD Work Phone: [facility] 12-01-2024 17:22-0500 Diastolic blood pressure 50 mm[Hg] Fiona Durant MD Work Phone: [facility] 12-01-2024 17:22-0500 Heart rate 88 /min Fiona Durant MD Work Phone: [facility] 12-01-2024 17:22-0500 SaO2% (BldA) [Mass fraction] 95 % Fiona Durant MD Work Phone: [facility] 12-01-2024 17:22-0500 Systolic blood pressure 100 mm[Hg] Fiona Durant MD Work Phone: [facility] 11-19-2024 12:39-0500 Body mass index (BMI) [Ratio] 35.31 kg/m2 Sandoval Burgess MD Work Phone: [facility] 11-19-2024 12:39-0500 Body temperature 97.59 [degF] Sandoval Burgess MD Work Phone: [facility] 11-19-2024 12:39-0500 Body weight 84.82 kg Sandoval Burgess MD Work Phone: [facility] 11-19-2024 12:39-0500 Diastolic blood pressure 76 mm[Hg] Sandoval Burgess MD Work Phone: [facility] 11-19-2024 12:39-0500 Heart rate 77 /min Sandoval Burgess MD Work Phone: [facility] 11-19-2024 12:39-0500 SaO2% (BldA) [Mass fraction] 90 % Sandoval Burgess MD Work Phone: [facility] 11-19-2024 12:39-0500 Systolic blood pressure 119 mm[Hg] Sandoval Burgess MD Work Phone: [facility] 10-30-2024 11:08-0500 Diastolic blood pressure 61 mm[Hg] Treatment Wstr Work Phone: [facility] 10-30-2024 11:08-0500 Heart rate 82 /min Treatment Wstr Work Phone: [facility] 10-30-2024 11:08-0500 Respiratory rate 18 /min Treatment Wstr Work Phone: [facility] 10-30-2024 11:08-0500 SaO2% (BldA) [Mass fraction] 90 % Treatment Wstr Work Phone: [facility] 10-30-2024 11:08-0500 Systolic blood pressure 117 mm[Hg] Treatment Wstr Work Phone: [facility] 10-30-2024 08:48-0500 Body height 155 cm Treatment Wstr Work Phone: [facility] Comment on above: verified with Leigh PEARSON 10-30-2024 08:48-0500 Body mass index (BMI) [Ratio] 37.85 kg/m2 Treatment Wstr Work Phone: [facility] 10-30-2024 08:48-0500 Body temperature 97.2 [degF] Treatment Wstr Work Phone: [facility] 10-30-2024 08:48-0500 Body weight 90.95 kg Treatment Wstr Work Phone: [facility] 10-23-2024 11:07-0500 Body mass index (BMI) [Ratio] 39.06 kg/m2 Sandoval Burgess MD Work Phone: [facility] 10-23-2024 11:07-0500 Body temperature 98.8 [degF] Sandoval Burgess MD Work Phone: [facility] 10-23-2024 11:07-0500 Body weight 90.72 kg Sandoval Burgess MD Work Phone: [facility] 10-23-2024 11:07-0500 Diastolic blood pressure 67 mm[Hg] Sandoval Burgess MD Work Phone: [facility] 10-23-2024 11:07-0500 Heart rate 97 /min Sandoval Burgess MD Work Phone: [facility] 10-23-2024 11:07-0500 SaO2% (BldA) [Mass fraction] 91 % Sandoval Burgess MD Work Phone: [facility] 10-23-2024 11:07-0500 Systolic blood pressure 110 mm[Hg] Sandoval Burgess MD Work Phone: [facility] 10-05-2024 15:07-0500 Body mass index (BMI) [Ratio] 38.32 kg/m2 [place] Clutter PA-C Work Phone: [facility] 10-05-2024 15:07-0500 Body temperature 97.39 [degF] [place] Clutter PA-C Work Phone: [facility] 10-05-2024 15:07-0500 Body weight 89 kg [place] Clutter PA-C Work Phone: [facility] 10-05-2024 15:07-0500 Diastolic blood pressure 66 mm[Hg] [place] Clutter PA-C Work Phone: [facility] 10-05-2024 15:07-0500 Heart rate 78 /min [place] Clutter PA-C Work Phone: [facility] 10-05-2024 15:07-0500 Respiratory rate 24 /min [place] Clutter PA-C Work Phone: [facility] 10-05-2024 15:07-0500 SaO2% (BldA) [Mass fraction] 95 % [place] Clutter PA-C Work Phone: [facility] 10-05-2024 15:07-0500 Systolic blood pressure 101 mm[Hg] [place] Clutter PA-C Work Phone: [facility] 09-30-2024 09:37-0500 Body mass index (BMI) [Ratio] 38.86 kg/m2 Sandoval Burgess MD Work Phone: [facility] 09-30-2024 09:37-0500 Body temperature 97.5 [degF] Sandoval Burgess MD Work Phone: [facility] 09-30-2024 09:37-0500 Body weight 90.27 kg Sandoval Burgess MD Work Phone: [facility] 09-30-2024 09:37-0500 Diastolic blood pressure 52 mm[Hg] Sandoval Burgess MD Work Phone: [facility] 09-30-2024 09:37-0500 Heart rate 80 /min Sandoval Burgess MD Work Phone: [facility] 09-30-2024 09:37-0500 SaO2% (BldA) [Mass fraction] 93 % Sandoval Burgess MD Work Phone: [facility] 09-30-2024 09:37-0500 Systolic blood pressure 101 mm[Hg] Sandoval Burgess MD Work Phone: [facility] 09-11-2024 12:42-0500 Heart rate 88 /min Georgina Morgan MD Work Phone: [facility] 09-11-2024 12:42-0500 SaO2% (BldA) [Mass fraction] 92 % Georgina Morgan MD Work Phone: [facility] 09-08-2024 15:05-0500 Body mass index (BMI) [Ratio] 39.05 kg/m2 Fiona Durant MD Work Phone: [facility] 09-08-2024 15:05-0500 Body temperature 97.59 [degF] Fiona Durant MD Work Phone: [facility] 09-08-2024 15:05-0500 Body weight 90.7 kg Fiona Durant MD Work Phone: [facility] 09-08-2024 15:05-0500 Diastolic blood pressure 62 mm[Hg] Fiona Durant MD Work Phone: [facility] 09-08-2024 15:05-0500 Heart rate 75 /min Fiona Durant MD Work Phone: [facility] 09-08-2024 15:05-0500 Respiratory rate 18 /min Fiona Durant MD Work Phone: [facility] 09-08-2024 15:05-0500 SaO2% (BldA) [Mass fraction] 94 % Fiona Durant MD Work Phone: [facility] 09-08-2024 15:05-0500 Systolic blood pressure 112 mm[Hg] Fiona Durant MD Work Phone: [facility] 08-21-2024 14:54-0500 Body temperature 97.81 [degF] Treatment Wstr Work Phone: [facility] 08-21-2024 14:54-0500 Diastolic blood pressure 72 mm[Hg] Treatment Wstr Work Phone: [facility] 08-21-2024 14:54-0500 Heart rate 86 /min Treatment Wstr Work Phone: [facility] 08-21-2024 14:54-0500 Respiratory rate 18 /min Treatment Wstr Work Phone: [facility] 08-21-2024 14:54-0500 SaO2% (BldA) [Mass fraction] 95 % Treatment Wstr Work Phone: [facility] 08-21-2024 14:54-0500 Systolic blood pressure 115 mm[Hg] Treatment Wstr Work Phone: [facility] 08-19-2024 10:55-0500 Body mass index (BMI) [Ratio] 39.26 kg/m2 Sandoval Burgess MD Work Phone: [facility] 08-19-2024 10:55-0500 Body temperature 97.2 [degF] Sandoval Burgess MD Work Phone: [facility] 08-19-2024 10:55-0500 Body weight 91.17 kg Sandoval Burgess MD Work Phone: [facility] 08-19-2024 10:55-0500 Diastolic blood pressure 52 mm[Hg] Sandoval Burgess MD Work Phone: [facility] 08-19-2024 10:55-0500 Heart rate 75 /min Sandoval Burgess MD Work Phone: [facility] 08-19-2024 10:55-0500 SaO2% (BldA) [Mass fraction] 94 % Sandoval Burgess MD Work Phone: [facility] 08-19-2024 10:55-0500 Systolic blood pressure 107 mm[Hg] Sandoval Burgess MD Work Phone: [facility] 07-10-2024 14:36-0400 Body temperature 97.3 [degF] Treatment Wstr Work Phone: [facility] 07-10-2024 14:36-0400 Diastolic blood pressure 73 mm[Hg] Treatment Wstr Work Phone: [facility] 07-10-2024 14:36-0400 Heart rate 86 /min Treatment Wstr Work Phone: [facility] 07-10-2024 14:36-0400 SaO2% (BldA) [Mass fraction] 95 % Treatment Wstr Work Phone: [facility] 07-10-2024 14:36-0400 Systolic blood pressure 128 mm[Hg] Treatment Wstr Work Phone: [facility] 07-08-2024 08:20-0400 Body mass index (BMI) [Ratio] 38.97 kg/m2 [place] Preciado [employer] SUPERVISOR.CHANGE MANAGEMENT DIRECTOR Work Phone: [facility] 07-08-2024 08:20-0400 Body temperature 97.81 [degF] Carrie Yeeenter [employer] LO[employer]LECTIONS SUPERVISOR.CHANGE MANAGEMENT DIRECTOR Work Phone: [facility] 07-08-2024 08:20-0400 Body weight 90.5 kg Carrie Preciado [employer] LO[employer]LECTIONS SUPERVISOR.CHANGE MANAGEMENT DIRECTOR Work Phone: [facility] 07-08-2024 08:20-0400 Diastolic blood pressure 70 mm[Hg] Carrie Preciado [employer]LECTIONS SUPERVISOR.CHANGE MANAGEMENT DIRECTOR Work Phone: [facility] 07-08-2024 08:20-0400 Heart rate 79 /min Carrie Preciado [employer] SUPERVISOR.CHANGE MANAGEMENT DIRECTOR Work Phone: [facility] 07-08-2024 08:20-0400 SaO2% (BldA) [Mass fraction] 94 % Carrie Preciado [employer] SUPERVISOR.CHANGE MANAGEMENT DIRECTOR Work Phone: [facility] 07-08-2024 08:20-0400 Systolic blood pressure 113 mm[Hg] [place] Preciado [employer] SUPERVISOR.CHANGE MANAGEMENT DIRECTOR Work Phone: [facility] 06-06-2024 17:23-0400 Body mass index (BMI) [Ratio] 38.15 kg/m2 Fiona Durant MD Work Phone: [facility] 06-06-2024 17:23-0400 Body temperature 98.29 [degF] Fiona Durant MD Work Phone: [facility] 06-06-2024 17:23-0400 Body weight 88.6 kg Fiona Durant MD Work Phone: [facility] 06-06-2024 17:23-0400 Diastolic blood pressure 62 mm[Hg] Fiona Durant MD Work Phone: [facility] 06-06-2024 17:23-0400 Heart rate 86 /min Fiona Durant MD Work Phone: [facility] 06-06-2024 17:23-0400 Respiratory rate 16 /min Fiona Durant MD Work Phone: [facility] 06-06-2024 17:23-0400 SaO2% (BldA) [Mass fraction] 96 % Fiona Durant MD Work Phone: [facility] 06-06-2024 17:23-0400 Systolic blood pressure 114 mm[Hg] Fiona Durant MD Work Phone: [facility] 05-29-2024 14:19-0400 Body temperature 97.7 [degF] Treatment Wstr Work Phone: [facility] 05-29-2024 14:19-0400 Diastolic blood pressure 73 mm[Hg] Treatment Wstr Work Phone: [facility] 05-29-2024 14:19-0400 Heart rate 73 /min Treatment Wstr Work Phone: [facility] 05-29-2024 14:19-0400 SaO2% (BldA) [Mass fraction] 95 % Treatment Wstr Work Phone: [facility] 05-29-2024 14:19-0400 Systolic blood pressure 124 mm[Hg] Treatment Wstr Work Phone: [facility] 05-27-2024 08:19-0400 Body mass index (BMI) [Ratio] 38.28 kg/m2 Floresita Carbajal Work Phone: [facility] 05-27-2024 08:19-0400 Body temperature 97.9 [degF] Floresita Carbajal Work Phone: [facility] 05-27-2024 08:19-0400 Body weight 88.91 kg Floresita Carbajal Work Phone: [facility] 05-27-2024 08:19-0400 Diastolic blood pressure 73 mm[Hg] Floresita Carbajal Work Phone: [facility] 05-27-2024 08:19-0400 Heart rate 81 /min Floresita Carbajal Work Phone: [facility] 05-27-2024 08:19-0400 SaO2% (BldA) [Mass fraction] 95 % Floresita Carbajal Work Phone: [facility] 05-27-2024 08:19-0400 Systolic blood pressure 125 mm[Hg] Floresita Carbajal Work Phone: [facility] 04-17-2024 13:06-0400 Body temperature 97.3 [degF] Treatment Wstr Work Phone: [facility] 04-17-2024 13:06-0400 Diastolic blood pressure 78 mm[Hg] Treatment Wstr Work Phone: [facility] 04-17-2024 13:06-0400 Heart rate 75 /min Treatment Wstr Work Phone: [facility] 04-17-2024 13:06-0400 SaO2% (BldA) [Mass fraction] 96 % Treatment Wstr Work Phone: [facility] 04-17-2024 13:06-0400 Systolic blood pressure 124 mm[Hg] Treatment Wstr Work Phone: [facility] 04-15-2024 11:25-0400 Body mass index (BMI) [Ratio] 38.96 kg/m2 Sandoval Burgess MD Work Phone: [facility] 04-15-2024 11:25-0400 Body temperature 97.59 [degF] Sandoval Burgess MD Work Phone: [facility] 04-15-2024 11:25-0400 Body weight 90.49 kg Sandoval Burgess MD Work Phone: [facility] 04-15-2024 11:25-0400 Diastolic blood pressure 66 mm[Hg] Sandoval Burgess MD Work Phone: [facility] 04-15-2024 11:25-0400 Heart rate 78 /min Sandoval Burgess MD Work Phone: [facility] 04-15-2024 11:25-0400 SaO2% (BldA) [Mass fraction] 97 % Sandoval Burgess MD Work Phone: [facility] 04-15-2024 11:25-0400 Systolic blood pressure 100 mm[Hg] Sandoval Burgess MD Work Phone: [facility] 03-06-2024 13:21-0400 Body temperature 97.11 [degF] Treatment Wstr Work Phone: [facility] 03-06-2024 13:21-0400 Diastolic blood pressure 69 mm[Hg] Treatment Wstr Work Phone: [facility] 03-06-2024 13:21-0400 Heart rate 78 /min Treatment Wstr Work Phone: [facility] 03-06-2024 13:21-0400 SaO2% (BldA) [Mass fraction] 96 % Treatment Wstr Work Phone: [facility] 03-06-2024 13:21-0400 Systolic blood pressure 115 mm[Hg] Treatment Wstr Work Phone: [facility] 03-05-2024 13:25-0400 Body mass index (BMI) [Ratio] 38.96 kg/m2 Sandoval Burgess MD Work Phone: [facility] 03-05-2024 13:25-0400 Body temperature 98.4 [degF] Sandoval Burgess MD Work Phone: [facility] 03-05-2024 13:25-0400 Body weight 90.49 kg Sandoval Burgess MD Work Phone: [facility] 03-05-2024 13:25-0400 Diastolic blood pressure 58 mm[Hg] Sandoval Burgess MD Work Phone: [facility] 03-05-2024 13:25-0400 Heart rate 69 /min Sandoval Burgess MD Work Phone: [facility] 03-05-2024 13:25-0400 SaO2% (BldA) [Mass fraction] 96 % Sandoval Burgess MD Work Phone: [facility] 03-05-2024 13:25-0400 Systolic blood pressure 102 mm[Hg] Sandoval Burgess MD Work Phone: [facility] 02-20-2024 15:25-0400 Body mass index (BMI) [Ratio] 39.06 kg/m2 Fiona Durant MD Work Phone: [facility] 02-20-2024 15:25-0400 Body temperature 97.3 [degF] Fiona Durant MD Work Phone: [facility] 02-20-2024 15:25-0400 Body weight 90.72 kg Fiona Durant MD Work Phone: [facility] 02-20-2024 15:25-0400 Diastolic blood pressure 62 mm[Hg] Fiona Durant MD Work Phone: [facility] 02-20-2024 15:25-0400 Heart rate 74 /min Fiona Durant MD Work Phone: [facility] 02-20-2024 15:25-0400 Respiratory rate 18 /min Fiona Durant MD Work Phone: [facility] 02-20-2024 15:25-0400 SaO2% (BldA) [Mass fraction] 96 % Fiona Durant MD Work Phone: [facility] 02-20-2024 15:25-0400 Systolic blood pressure 110 mm[Hg] Fiona Durant MD Work Phone: [facility] 01-24-2024 13:47-0400 Body temperature 97.11 [degF] Treatment Wstr Work Phone: [facility] 01-24-2024 13:47-0400 Diastolic blood pressure 47 mm[Hg] Treatment Wstr Work Phone: [facility] 01-24-2024 13:47-0400 Heart rate 75 /min Treatment Wstr Work Phone: [facility] 01-24-2024 13:47-0400 SaO2% (BldA) [Mass fraction] 95 % Treatment Wstr Work Phone: [facility] 01-24-2024 13:47-0400 Systolic blood pressure 111 mm[Hg] Treatment Wstr Work Phone: [facility] 01-23-2024 13:36-0400 Body temperature 98.2 [degF] Sandoval Burgess MD Work Phone: [facility] 01-23-2024 13:36-0400 Body weight 91.4 kg Sandoval Burgess MD Work Phone: [facility] 01-23-2024 13:36-0400 Diastolic blood pressure 45 mm[Hg] Sandoval Burgess MD Work Phone: [facility] 01-23-2024 13:36-0400 Heart rate 77 /min Sandoval Burgess MD Work Phone: [facility] 01-23-2024 13:36-0400 SaO2% (BldA) [Mass fraction] 96 % Sandoval Burgess MD Work Phone: [facility] 01-23-2024 13:36-0400 Systolic blood pressure 97 mm[Hg] Sandoval Burgess MD Work Phone: [facility] 12-13-2023 14:00-0500 Body temperature 97.59 [degF] Treatment Wstr Work Phone: [facility] 12-13-2023 14:00-0500 Diastolic blood pressure 45 mm[Hg] Treatment Wstr Work Phone: [facility] 12-13-2023 14:00-0500 Heart rate 79 /min Treatment Wstr Work Phone: [facility] 12-13-2023 14:00-0500 Systolic blood pressure 117 mm[Hg] Treatment Wstr Work Phone: [facility] 12-12-2023 12:56-0500 Body temperature 97.81 [degF] Sandoval Burgess MD Work Phone: [facility] 12-12-2023 12:56-0500 Body weight 94.58 kg Sandoval Burgess MD Work Phone: [facility] 12-12-2023 12:56-0500 Diastolic blood pressure 42 mm[Hg] Sandoval Burgess MD Work Phone: [facility] 12-12-2023 12:56-0500 Heart rate 82 /min Sandoval Burgess MD Work Phone: [facility] 12-12-2023 12:56-0500 SaO2% (BldA) [Mass fraction] 99 % Sandoval Burgess MD Work Phone: [facility] 12-12-2023 12:56-0500 Systolic blood pressure 98 mm[Hg] Sandoval Burgess MD Work Phone: [facility] 11-16-2023 14:10-0500 Body temperature 97.2 [degF] Sandoval Burgess MD Work Phone: [facility] 11-16-2023 14:10-0500 Body weight 93.67 kg Sandoval Burgess MD Work Phone: [facility] 11-16-2023 14:10-0500 Diastolic blood pressure 69 mm[Hg] Sandoval Burgess MD Work Phone: [facility] 11-16-2023 14:10-0500 Heart rate 79 /min Sandoval Burgess MD Work Phone: [facility] 11-16-2023 14:10-0500 SaO2% (BldA) [Mass fraction] 95 % Sandoval Burgess MD Work Phone: [facility] 11-16-2023 14:10-0500 Systolic blood pressure 115 mm[Hg] Sandoval Burgess MD Work Phone: [facility] 08-08-2023 14:33-0400 Body temperature 97.3 [degF] Treatment Wstr Work Phone: [facility] 08-08-2023 14:33-0400 Diastolic blood pressure 71 mm[Hg] Treatment Wstr Work Phone: [facility] 08-08-2023 14:33-0400 Heart rate 85 /min Treatment Wstr Work Phone: [facility] 08-08-2023 14:33-0400 Respiratory rate 18 /min Treatment Wstr Work Phone: [facility] 08-08-2023 14:33-0400 Systolic blood pressure 111 mm[Hg] Treatment Wstr Work Phone: [facility] 08-01-2023 14:50-0400 Body temperature 97.7 [degF] Isabel Athy PA-C Work Phone: [facility] 08-01-2023 14:50-0400 Body weight 92.08 kg Isabel Athy PA-C Work Phone: [facility] 08-01-2023 14:50-0400 Diastolic blood pressure 74 mm[Hg] Isabel Athy PA-C Work Phone: [facility] 08-01-2023 14:50-0400 Heart rate 78 /min Isabel Athy PA-C Work Phone: [facility] 08-01-2023 14:50-0400 Respiratory rate 18 /min Isabel Athy PA-C Work Phone: [facility] 08-01-2023 14:50-0400 SaO2% (BldA) [Mass fraction] 93 % Isabel Athy PA-C Work Phone: [facility] 08-01-2023 14:50-0400 Systolic blood pressure 117 mm[Hg] Isabel Campuzano PA-C Work Phone: [facility] 06-26-2023 10:07-0400 Body temperature 97.5 [degF] Sandoval Burgess MD Work Phone: [facility] 06-26-2023 10:07-0400 Body weight 93.21 kg Sandoval Burgess MD Work Phone: [facility] 06-26-2023 10:07-0400 Diastolic blood pressure 73 mm[Hg] Sandoval Burgess MD Work Phone: [facility] 06-26-2023 10:07-0400 Heart rate 83 /min Sandoval Burgess MD Work Phone: [facility] 06-26-2023 10:07-0400 SaO2% (BldA) [Mass fraction] 94 % Sandoval Burgess MD Work Phone: [facility] 06-26-2023 10:07-0400 Systolic blood pressure 110 mm[Hg] Sandoval Burgess MD Work Phone: [facility] 06-20-2023 15:21-0400 Body weight 92.99 kg Annsamantha Dyerone PA-C Work Phone: [facility] 06-20-2023 15:21-0400 Diastolic blood pressure 70 mm[Hg] Ann Berlin PA-C Work Phone: [facility] 06-20-2023 15:21-0400 Heart rate 80 /min Ann Berlin PA-C Work Phone: [facility] 06-20-2023 15:21-0400 Respiratory rate 14 /min Ann Berlin PA-C Work Phone: [facility] 06-20-2023 15:21-0400 SaO2% (BldA) [Mass fraction] 94 % Ann Berlin PA-C Work Phone: [facility] 06-20-2023 15:21-0400 Systolic blood pressure 107 mm[Hg] Ann Slade PA-C Work Phone: [facility] 05-25-2023 14:44-0400 Body temperature 98.91 [degF] Perla Lotus CREDIT AND LOAN COLLECTIONS SUPERVISOR.CHANGE MANAGEMENT DIRECTOR Work Phone: [facility] 05-25-2023 14:44-0400 Body weight 92.72 kg Perla Lotus [employer]EDIT AND LOAN COLLECTIONS SUPERVISOR.CHANGE MANAGEMENT DIRECTOR Work Phone: [facility] 05-25-2023 14:44-0400 Diastolic blood pressure 62 mm[Hg] Perla Lotus CREDIT AND LOAN COLLECTIONS SUPERVISOR.CHANGE MANAGEMENT DIRECTOR Work Phone: [facility] 05-25-2023 14:44-0400 Heart rate 93 /min Perla Lotus CREDIT AND LOAN COLLECTIONS SUPERVISOR.CHANGE MANAGEMENT DIRECTOR Work Phone: [facility] 05-25-2023 14:44-0400 Respiratory rate 22 /min Perla Lotus CREDIT AND LOAN COLLECTIONS SUPERVISOR.CHANGE MANAGEMENT DIRECTOR Work Phone: [facility] 05-25-2023 14:44-0400 SaO2% (BldA) [Mass fraction] 93 % Perla Lotus [employer]EDIT AND LOAN COLLECTIONS SUPERVISOR.CHANGE MANAGEMENT DIRECTOR Work Phone: [facility] 05-25-2023 14:44-0400 Systolic blood pressure 110 mm[Hg] Perla Lotus CREDIT AND LOAN COLLECTIONS SUPERVISOR.CHANGE MANAGEMENT DIRECTOR Work Phone: [facility] 05-22-2023 08:31-0400 Body height 152.4 cm Fiona Durant MD Work Phone: [facility] 05-22-2023 08:31-0400 Body weight 91.63 kg Fiona Durant MD Work Phone: [facility] 05-22-2023 08:31-0400 Diastolic blood pressure 80 mm[Hg] Fiona Durant MD Work Phone: [facility] 05-22-2023 08:31-0400 Heart rate 80 /min Fiona Durant MD Work Phone: [facility] 05-22-2023 08:31-0400 Respiratory rate 16 /min Fiona Durant MD Work Phone: [facility] 05-22-2023 08:31-0400 Systolic blood pressure 110 mm[Hg] Fiona Durant MD Work Phone: [facility] 05-16-2023 14:19-0400 Body temperature 97.81 [degF] Treatment Wstr Work Phone: [facility] 05-16-2023 14:19-0400 Diastolic blood pressure 50 mm[Hg] Treatment Wstr Work Phone: [facility] 05-16-2023 14:19-0400 Heart rate 79 /min Treatment Wstr Work Phone: [facility] 05-16-2023 14:19-0400 SaO2% (BldA) [Mass fraction] 94 % Treatment Wstr Work Phone: [facility] 05-16-2023 14:19-0400 Systolic blood pressure 114 mm[Hg] Treatment Wstr Work Phone: [facility] 05-15-2023 10:23-0400 Body temperature 97 [degF] Sandoval Burgess MD Work Phone: [facility] 05-15-2023 10:23-0400 Body weight 92.31 kg Sandoval Burgess MD Work Phone: [facility] 05-15-2023 10:23-0400 Diastolic blood pressure 71 mm[Hg] Sandoval Burgess MD Work Phone: [facility] 05-15-2023 10:23-0400 Heart rate 74 /min Sandoval Burgess MD Work Phone: [facility] 05-15-2023 10:23-0400 SaO2% (BldA) [Mass fraction] 95 % Sandoval Burgess MD Work Phone: [facility] 05-15-2023 10:23-0400 Systolic blood pressure 109 mm[Hg] Sandoval Burgess MD Work Phone: [facility] 04-16-2023 18:41-0400 Body temperature 98.71 [degF] Perla Lotus CREDIT AND LOAN COLLECTIONS SUPERVISOR.CHANGE MANAGEMENT DIRECTOR Work Phone: [facility] 04-16-2023 18:41-0400 Body weight 92.63 kg Perla Lotus CREDIT AND LOAN COLLECTIONS SUPERVISOR.CHANGE MANAGEMENT DIRECTOR Work Phone: [facility] 04-16-2023 18:41-0400 Diastolic blood pressure 78 mm[Hg] Perla Lotus CREDIT AND LOAN COLLECTIONS SUPERVISOR.CHANGE MANAGEMENT DIRECTOR Work Phone: [facility] 04-16-2023 18:41-0400 Heart rate 87 /min Perla Lotus CREDIT AND LOAN COLLECTIONS SUPERVISOR.CHANGE MANAGEMENT DIRECTOR Work Phone: [facility] 04-16-2023 18:41-0400 Respiratory rate 21 /min Perla Lotus CREDIT AND LOAN COLLECTIONS SUPERVISOR.CHANGE MANAGEMENT DIRECTOR Work Phone: [facility] 04-16-2023 18:41-0400 SaO2% (BldA) [Mass fraction] 98 % Perla Lotus [employer]EDIT AND LOAN COLLECTIONS SUPERVISOR.CHANGE MANAGEMENT DIRECTOR Work Phone: [facility] 04-16-2023 18:41-0400 Systolic blood pressure 118 mm[Hg] Perla Lotus CREDIT AND LOAN COLLECTIONS SUPERVISOR.CHANGE MANAGEMENT DIRECTOR Work Phone: [facility] 04-04-2023 11:00-0400 Body temperature 97.9 [degF] Treatment Wstr Work Phone: [facility] 04-04-2023 11:00-0400 Diastolic blood pressure 61 mm[Hg] Treatment Wstr Work Phone: [facility] 04-04-2023 11:00-0400 Heart rate 87 /min Treatment Wstr Work Phone: [facility] 04-04-2023 11:00-0400 Systolic blood pressure 135 mm[Hg] Treatment Wstr Work Phone: [facility] 04-03-2023 10:47-0400 Body temperature 97.11 [degF] Telly Duncan DO Work Phone: [facility] 04-03-2023 10:47-0400 Body weight 91.63 kg Telly Duncan DO Work Phone: [facility] 04-03-2023 10:47-0400 Diastolic blood pressure 67 mm[Hg] Telly Lindoi DO Work Phone: [facility] 04-03-2023 10:47-0400 Heart rate 87 /min Telly Lindoi DO Work Phone: [facility] 04-03-2023 10:47-0400 SaO2% (BldA) [Mass fraction] 96 % Telly Lindoi DO Work Phone: [facility] 04-03-2023 10:47-0400 Systolic blood pressure 123 mm[Hg] Telly Lindoi DO Work Phone: [facility] 03-19-2023 11:06-0400 Body height 152.8 cm Pulm Wstr Work Phone: [facility] 03-19-2023 11:06-0400 Body weight 90.72 kg Pulm Wstr Work Phone: [facility] 03-19-2023 11:06-0400 Heart rate 84 /min Pulm Wstr Work Phone: [facility] 03-19-2023 11:06-0400 Respiratory rate 14 /min Pulm Wstr Work Phone: [facility] 03-19-2023 11:06-0400 SaO2% (BldA) [Mass fraction] 94 % Pulm Wstr Work Phone: [facility] 02-21-2023 12:00-0400 Body temperature 97.39 [degF] Treatment Wstr Work Phone: [facility] 02-21-2023 12:00-0400 Diastolic blood pressure 62 mm[Hg] Treatment Wstr Work Phone: [facility] 02-21-2023 12:00-0400 Heart rate 72 /min Treatment Wstr Work Phone: [facility] 02-21-2023 12:00-0400 Systolic blood pressure 105 mm[Hg] Treatment Wstr Work Phone: [facility] 02-20-2023 10:55-0400 Body temperature 97.39 [degF] Telly Lindoi DO Work Phone: [facility] 02-20-2023 10:55-0400 Body weight 93.21 kg Telly Masci DO Work Phone: [facility] 02-20-2023 10:55-0400 Diastolic blood pressure 63 mm[Hg] Telly Masci DO Work Phone: [facility] 02-20-2023 10:55-0400 Heart rate 78 /min Telly Masci DO Work Phone: [facility] 02-20-2023 10:55-0400 SaO2% (BldA) [Mass fraction] 95 % Telly Masci DO Work Phone: [facility] 02-20-2023 10:55-0400 Systolic blood pressure 135 mm[Hg] Telly Masci DO Work Phone: [facility] 02-01-2023 14:38-0400 Body weight 94.35 kg Bebe Flores CREDIT AND LOAN COLLECTIONS SUPERVISOR.ETHANOL QUALITY LEADER Work Phone: [facility] 02-01-2023 14:38-0400 Diastolic blood pressure 58 mm[Hg] Bebe Flores CREDIT AND LOAN COLLECTIONS SUPERVISOR.ETHANOL QUALITY LEADER Work Phone: [facility] 02-01-2023 14:38-0400 Heart rate 75 /min Bebe Flores CREDIT AND LOAN COLLECTIONS SUPERVISOR.ETHANOL QUALITY LEADER Work Phone: [facility] 02-01-2023 14:38-0400 Respiratory rate 16 /min Bebe Flores CREDIT AND LOAN COLLECTIONS SUPERVISOR.ETHANOL QUALITY LEADER Work Phone: [facility] 02-01-2023 14:38-0400 SaO2% (BldA) [Mass fraction] 95 % Bebe Flores CREDIT AND LOAN COLLECTIONS SUPERVISOR.ETHANOL QUALITY LEADER Work Phone: [facility] 02-01-2023 14:38-0400 Systolic blood pressure 120 mm[Hg] Bebe Flores CREDIT AND LOAN COLLECTIONS SUPERVISOR.ETHANOL QUALITY LEADER Work Phone: [facility] 01-25-2023 10:49-0400 Body temperature 97.59 [degF] Kathy Kade CREDIT AND LOAN COLLECTIONS SUPERVISOR.CHANGE MANAGEMENT DIRECTOR Work Phone: [facility] 04-20-2023 10:49-0400 Body weight 93.44 kg Kathy Older CREDIT AND LOAN COLLECTIONS SUPERVISOR.CHANGE MANAGEMENT DIRECTOR Work Phone: [facility] 01-25-2023 10:49-0400 Diastolic blood pressure 70 mm[Hg] Kathy Older CREDIT AND LOAN COLLECTIONS SUPERVISOR.CHANGE MANAGEMENT DIRECTOR Work Phone: [facility] 01-25-2023 10:49-0400 Heart rate 89 /min Kathy Older CREDIT AND LOAN COLLECTIONS SUPERVISOR.CHANGE MANAGEMENT DIRECTOR Work Phone: [facility] 01-25-2023 10:49-0400 Respiratory rate 16 /min Kathy Older CREDIT AND LOAN COLLECTIONS SUPERVISOR.CHANGE MANAGEMENT DIRECTOR Work Phone: [facility] 01-25-2023 10:49-0400 SaO2% (BldA) [Mass fraction] 96 % Kathy Older CREDIT AND LOAN COLLECTIONS SUPERVISOR.CHANGE MANAGEMENT DIRECTOR Work Phone: [facility] 01-25-2023 10:49-0400 Systolic blood pressure 128 mm[Hg] Kathy Older CREDIT AND LOAN COLLECTIONS SUPERVISOR.CHANGE MANAGEMENT DIRECTOR Work Phone: [facility] 01-09-2023 11:02-0400 Body temperature 97.59 [degF] Carrie Preciado CREDIT AND LOAN COLLECTIONS SUPERVISOR.CHANGE MANAGEMENT DIRECTOR Work Phone: [facility] 01-09-2023 11:02-0400 Body weight 95.48 kg Carrie Preciado CREDIT AND LOAN COLLECTIONS SUPERVISOR.CHANGE MANAGEMENT DIRECTOR Work Phone: [facility] 01-09-2023 11:02-0400 Diastolic blood pressure 71 mm[Hg] Carrie Preciado CREDIT AND LOAN COLLECTIONS SUPERVISOR.CHANGE MANAGEMENT DIRECTOR Work Phone: [facility] 01-09-2023 11:02-0400 Heart rate 88 /min [place] Preciado CREDIT AND LOAN COLLECTIONS SUPERVISOR.CHANGE MANAGEMENT DIRECTOR Work Phone: [facility] 01-09-2023 11:02-0400 SaO2% (BldA) [Mass fraction] 92 % Carrie Preciado CREDIT AND LOAN COLLECTIONS SUPERVISOR.CHANGE MANAGEMENT DIRECTOR Work Phone: [facility] 01-09-2023 11:02-0400 Systolic blood pressure 143 mm[Hg] [place] Preciado CREDIT AND LOAN COLLECTIONS SUPERVISOR.CHANGE MANAGEMENT DIRECTOR Work Phone: [facility] 10-24-2022 15:28-0500 Body temperature 97.39 [degF] Fiona Durant MD Work Phone: [facility] 10-24-2022 15:28-0500 Body weight 95.25 kg Fiona Durant MD Work Phone: [facility] 10-24-2022 15:28-0500 Diastolic blood pressure 68 mm[Hg] Fiona Durant MD Work Phone: [facility] 10-24-2022 15:28-0500 Heart rate 79 /min Fiona Durant MD Work Phone: [facility] 10-24-2022 15:28-0500 Respiratory rate 18 /min Fiona Durant MD Work Phone: [facility] 10-24-2022 15:28-0500 SaO2% (BldA) [Mass fraction] 95 % Fiona Durant MD Work Phone: [facility] 10-24-2022 15:28-0500 Systolic blood pressure 128 mm[Hg] Fiona Durant MD Work Phone: [facility] 10-18-2022 13:28-0500 Body temperature 97.7 [degF] Treatment Wstr Work Phone: [facility] 10-18-2022 13:28-0500 Diastolic blood pressure 52 mm[Hg] Treatment Wstr Work Phone: [facility] 10-18-2022 13:28-0500 Heart rate 95 /min Treatment Wstr Work Phone: [facility] 10-18-2022 13:28-0500 SaO2% (BldA) [Mass fraction] 97 % Treatment Wstr Work Phone: [facility] 10-18-2022 13:28-0500 Systolic blood pressure 149 mm[Hg] Treatment Wstr Work Phone: [facility] 10-17-2022 10:17-0500 Body temperature 97.59 [degF] Anca Huddleston MD Work Phone: [facility] 10-17-2022 10:17-0500 Body weight 95.03 kg Anca Huddleston MD Work Phone: [facility] 10-17-2022 10:17-0500 Diastolic blood pressure 63 mm[Hg] Anca Huddleston MD Work Phone: [facility] 10-17-2022 10:17-0500 Heart rate 86 /min Anca Huddleston MD Work Phone: [facility] 10-17-2022 10:17-0500 SaO2% (BldA) [Mass fraction] 95 % Anca Huddleston MD Work Phone: [facility] 10-17-2022 10:17-0500 Systolic blood pressure 131 mm[Hg] Anca Huddleston MD Work Phone: [facility] 09-27-2022 13:46-0500 Body temperature 97.3 [degF] Treatment Wstr Work Phone: [facility] 09-27-2022 13:46-0500 Diastolic blood pressure 73 mm[Hg] Treatment Wstr Work Phone: [facility] 09-27-2022 13:46-0500 Heart rate 86 /min Treatment Wstr Work Phone: [facility] 09-27-2022 13:46-0500 Systolic blood pressure 149 mm[Hg] Treatment Wstr Work Phone: [facility] 09-26-2022 10:02-0500 Body temperature 96.49 [degF] Anca Huddleston MD Work Phone: [facility] 09-26-2022 10:02-0500 Body weight 94.12 kg Anca Huddleston MD Work Phone: [facility] 09-26-2022 10:02-0500 Diastolic blood pressure 41 mm[Hg] Anca Huddleston MD Work Phone: [facility] 09-26-2022 10:02-0500 Heart rate 77 /min Anca Huddleston MD Work Phone: [facility] 09-26-2022 10:02-0500 SaO2% (BldA) [Mass fraction] 96 % Anca Huddleston MD Work Phone: [facility] 09-26-2022 10:02-0500 Systolic blood pressure 126 mm[Hg] Anca Huddleston MD Work Phone: [facility] 09-06-2022 13:39-0500 Body temperature 97.9 [degF] Treatment Wstr Work Phone: [facility] 09-06-2022 13:39-0500 Diastolic blood pressure 55 mm[Hg] Treatment Wstr Work Phone: [facility] 09-06-2022 13:39-0500 Heart rate 76 /min Treatment Wstr Work Phone: [facility] 09-06-2022 13:39-0500 Systolic blood pressure 133 mm[Hg] Treatment Wstr Work Phone: [facility] 08-14-2022 10:56-0500 Body height 153 cm Anca Huddleston MD Work Phone: [facility] 08-14-2022 10:56-0500 Body temperature 97.11 [degF] Anca Huddleston MD Work Phone: [facility] 08-14-2022 10:56-0500 Body weight 90.95 kg Anca Huddleston MD Work Phone: [facility] 08-14-2022 10:56-0500 Diastolic blood pressure 56 mm[Hg] Anca Huddleston MD Work Phone: [facility] 08-14-2022 10:56-0500 Heart rate 72 /min Anca Huddleston MD Work Phone: [facility] 08-14-2022 10:56-0500 SaO2% (BldA) [Mass fraction] 96 % Anca Huddleston MD Work Phone: [facility] 08-14-2022 10:56-0500 Systolic blood pressure 119 mm[Hg] Anca Huddleston MD Work Phone: [facility] 07-24-2022 13:57-0400 Body temperature 97.59 [degF] Carrie Preciado APRN.CNP Work Phone: [facility] 07-24-2022 13:57-0400 Body weight 90.95 kg Carrie Preciado CREDIT AND LOAN COLLECTIONS SUPERVISOR.CHANGE MANAGEMENT DIRECTOR Work Phone: [facility] 07-24-2022 13:57-0400 Diastolic blood pressure 54 mm[Hg] [place] Preciado CREDIT AND LOAN COLLECTIONS SUPERVISOR.CHANGE MANAGEMENT DIRECTOR Work Phone: [facility] 07-24-2022 13:57-0400 Heart rate 81 /min Carrie Preciado CREDIT AND LOAN COLLECTIONS SUPERVISOR.CHANGE MANAGEMENT DIRECTOR Work Phone: [facility] 07-24-2022 13:57-0400 SaO2% (BldA) [Mass fraction] 94 % [place] Preciado CREDIT AND LOAN COLLECTIONS SUPERVISOR.CHANGE MANAGEMENT DIRECTOR Work Phone: [facility] 07-24-2022 13:57-0400 Systolic blood pressure 127 mm[Hg] [place] Preciado CREDIT AND LOAN COLLECTIONS SUPERVISOR.CHANGE MANAGEMENT DIRECTOR Work Phone: [facility] 07-19-2022 16:48-0400 Body weight 90.72 kg Fiona Durant MD Work Phone: [facility] 07-19-2022 16:48-0400 Diastolic blood pressure 62 mm[Hg] Fiona Durant MD Work Phone: [facility] 07-19-2022 16:48-0400 Heart rate 73 /min Fiona Durant MD Work Phone: [facility] 07-19-2022 16:48-0400 SaO2% (BldA) [Mass fraction] 91 % Fiona Durant MD Work Phone: [facility] 07-19-2022 16:48-0400 Systolic blood pressure 108 mm[Hg] Fiona Durant MD Work Phone: [facility] 07-04-2022 14:00-0400 Body temperature 96.8 [degF] Treatment Wstr Work Phone: [facility] 07-04-2022 14:00-0400 Diastolic blood pressure 52 mm[Hg] Treatment Wstr Work Phone: [facility] 07-04-2022 14:00-0400 Heart rate 97 /min Treatment Wstr Work Phone: [facility] 07-04-2022 14:00-0400 Systolic blood pressure 134 mm[Hg] Treatment Wstr Work Phone: [facility] 06-13-2022 14:00-0400 Body temperature 96.8 [degF] Treatment Wstr Work Phone: [facility] 06-13-2022 14:00-0400 Diastolic blood pressure 58 mm[Hg] Treatment Wstr Work Phone: [facility] 06-13-2022 14:00-0400 Heart rate 79 /min Treatment Wstr Work Phone: [facility] 06-13-2022 14:00-0400 Systolic blood pressure 106 mm[Hg] Treatment Wstr Work Phone: [facility] 05-23-2022 09:31-0400 Body temperature 97 [degF] Treatment Wstr Work Phone: [facility] 05-23-2022 09:31-0400 Body weight 89.36 kg Treatment Wstr Work Phone: [facility] 05-23-2022 09:31-0400 Diastolic blood pressure 66 mm[Hg] Treatment Wstr Work Phone: [facility] 05-23-2022 09:31-0400 Heart rate 77 /min Treatment Wstr Work Phone: [facility] 05-23-2022 09:31-0400 Respiratory rate 16 /min Treatment Wstr Work Phone: [facility] 05-23-2022 09:31-0400 SaO2% (BldA) [Mass fraction] 95 % Treatment Wstr Work Phone: [facility] 05-23-2022 09:31-0400 Systolic blood pressure 147 mm[Hg] Treatment Wstr Work Phone: [facility] 05-08-2022 09:03-0400 Body temperature 97.59 [degF] Anca Huddleston MD Work Phone: [facility] 05-08-2022 09:03-0400 Body weight 90.04 kg Anca Huddleston MD Work Phone: [facility] 05-08-2022 09:03-0400 Diastolic blood pressure 64 mm[Hg] Anca Huddleston MD Work Phone: [facility] 05-08-2022 09:03-0400 Heart rate 78 /min Anca Huddleston MD Work Phone: [facility] 05-08-2022 09:03-0400 SaO2% (BldA) [Mass fraction] 95 % Anca Huddleston MD Work Phone: [facility] 05-08-2022 09:03-0400 Systolic blood pressure 108 mm[Hg] Anca Huddleston MD Work Phone: [facility] 04-18-2022 13:00-0400 Body temperature 96.6 [degF] Treatment Wstr Work Phone: [facility] 04-18-2022 13:00-0400 Body weight 88.91 kg Treatment Wstr Work Phone: [facility] 04-18-2022 13:00-0400 Diastolic blood pressure 59 mm[Hg] Treatment Wstr Work Phone: [facility] 04-18-2022 13:00-0400 Heart rate 84 /min Treatment Wstr Work Phone: [facility] 04-18-2022 13:00-0400 Systolic blood pressure 129 mm[Hg] Treatment Wstr Work Phone: [facility] 04-17-2022 17:03-0400 Body weight 88.91 kg Fiona Durant MD Work Phone: [facility] 04-17-2022 17:03-0400 Diastolic blood pressure 70 mm[Hg] Fiona Durant MD Work Phone: [facility] 04-17-2022 17:03-0400 Heart rate 78 /min Fiona Durant MD Work Phone: [facility] 04-17-2022 17:03-0400 SaO2% (BldA) [Mass fraction] 96 % Fiona Durant MD Work Phone: [facility] 04-17-2022 17:03-0400 Systolic blood pressure 122 mm[Hg] Fiona Durant MD Work Phone: [facility] 03-29-2022 14:54-0400 Body temperature 97.9 [degF] Treatment Wstr Work Phone: [facility] 03-29-2022 14:54-0400 Diastolic blood pressure 50 mm[Hg] Treatment Wstr Work Phone: [facility] 03-29-2022 14:54-0400 Heart rate 67 /min Treatment Wstr Work Phone: [facility] 03-29-2022 14:54-0400 Systolic blood pressure 120 mm[Hg] Treatment Wstr Work Phone: [facility] 03-28-2022 11:18-0400 Body temperature 96.91 [degF] Anca Huddleston MD Work Phone: [facility] 03-28-2022 11:18-0400 Body weight 88.91 kg Anca Huddleston MD Work Phone: [facility] 03-28-2022 11:18-0400 Diastolic blood pressure 54 mm[Hg] Anca Huddleston MD Work Phone: [facility] 03-28-2022 11:18-0400 Heart rate 74 /min Anca Huddleston MD Work Phone: [facility] 03-28-2022 11:18-0400 SaO2% (BldA) [Mass fraction] 95 % Anca Huddleston MD Work Phone: [facility] 03-28-2022 11:18-0400 Systolic blood pressure 109 mm[Hg] Anca Huddleston MD Work Phone: [facility] 03-03-2022 14:03-0400 Body temperature 97.7 [degF] Anca Huddleston MD Work Phone: [facility] 03-03-2022 14:03-0400 Body weight 88.68 kg Anca Huddleston MD Work Phone: [facility] 03-03-2022 14:03-0400 Diastolic blood pressure 59 mm[Hg] Anca Huddleston MD Work Phone: [facility] 03-03-2022 14:03-0400 Heart rate 75 /min Anca Huddleston MD Work Phone: [facility] 03-03-2022 14:03-0400 SaO2% (BldA) [Mass fraction] 96 % Anca Huddleston MD Work Phone: [facility] 03-03-2022 14:03-0400 Systolic blood pressure 111 mm[Hg] Anca Huddleston MD Work Phone: [facility] 02-15-2022 10:08-0400 Body temperature 97 [degF] Treatment Wstr Work Phone: [facility] 02-15-2022 10:08-0400 Diastolic blood pressure 63 mm[Hg] Treatment Wstr Work Phone: [facility] 02-15-2022 10:08-0400 Heart rate 83 /min Treatment Wstr Work Phone: [facility] 02-15-2022 10:08-0400 Systolic blood pressure 131 mm[Hg] Treatment Wstr Work Phone: [facility] 02-14-2022 09:02-0400 Body temperature 97.3 [degF] Anca Huddleston MD Work Phone: [facility] 02-14-2022 09:02-0400 Body weight 87.77 kg Anca Huddleston MD Work Phone: [facility] 02-14-2022 09:02-0400 Diastolic blood pressure 59 mm[Hg] Anca Huddleston MD Work Phone: [facility] 02-14-2022 09:02-0400 Heart rate 68 /min Anac Huddleston MD Work Phone: [facility] 02-14-2022 09:02-0400 SaO2% (BldA) [Mass fraction] 96 % Anca Huddleston MD Work Phone: [facility] 02-14-2022 09:02-0400 Systolic blood pressure 119 mm[Hg] Anca Huddleston MD Work Phone: [facility] 01-25-2022 14:32-0400 Body temperature 97.59 [degF] Treatment Wstr Work Phone: [facility] 01-25-2022 14:32-0400 Diastolic blood pressure 66 mm[Hg] Treatment Wstr Work Phone: [facility] 01-25-2022 14:32-0400 Heart rate 77 /min Treatment Wstr Work Phone: [facility] 01-25-2022 14:32-0400 SaO2% (BldA) [Mass fraction] 97 % Treatment Wstr Work Phone: [facility] 01-25-2022 14:32-0400 Systolic blood pressure 140 mm[Hg] Treatment Wstr Work Phone: [facility] 01-04-2022 14:29-0400 Body temperature 97.3 [degF] Treatment Wstr Work Phone: [facility] 01-04-2022 14:29-0400 Body weight 88.22 kg Treatment Wstr Work Phone: [facility] 01-04-2022 14:29-0400 Diastolic blood pressure 53 mm[Hg] Treatment Wstr Work Phone: [facility] 01-04-2022 14:29-0400 Heart rate 82 /min Treatment Wstr Work Phone: [facility] 01-04-2022 14:29-0400 SaO2% (BldA) [Mass fraction] 95 % Treatment Wstr Work Phone: [facility] 01-04-2022 14:29-0400 Systolic blood pressure 114 mm[Hg] Treatment Wstr Work Phone: [facility] 01-03-2022 16:38-0400 Body temperature 97.81 [degF] Anca Huddleston MD Work Phone: [facility] 01-03-2022 16:38-0400 Body weight 88.45 kg Anca Huddleston MD Work Phone: [facility] 01-03-2022 16:38-0400 Diastolic blood pressure 53 mm[Hg] Anca Huddleston MD Work Phone: [facility] 01-03-2022 16:38-0400 Heart rate 70 /min Anca Huddleston MD Work Phone: [facility] 01-03-2022 16:38-0400 Systolic blood pressure 112 mm[Hg] Anca Huddleston MD Work Phone: [facility] 12-26-2021 15:02-0400 Body weight 86.64 kg Fiona Durant MD Work Phone: [facility] 12-26-2021 15:02-0400 Diastolic blood pressure 60 mm[Hg] Fiona Durant MD Work Phone: [facility] 12-26-2021 15:02-0400 Heart rate 78 /min Fiona Durant MD Work Phone: [facility] 12-26-2021 15:02-0400 Systolic blood pressure 102 mm[Hg] Fiona Durant MD Work Phone: [facility] Encounters Encounter Date Encounter Type Care Provider Facility Start: 04-24-2025 ambulatory FIONA DURANT Facilit y:[facility] Start: 04-24-2025 End: 04-24-2025 Patient encounter procedure Georgina Morgan MD Work Phone: Pulmonary Medicine Comment on above: COPD with exacerbati on (HCC) (Primary Dx); Malignant neoplasm of right lung, unspecified part of lung (HCC); Cigarette smoker Start: 04-21-2025 End: 04-22-2025 Telephone encounter Christina Amaro RN Work Phone: Hematology/Oncology Comment on above: Care Coordination Start: 04-20-2025 End: 04-20-2025 Telephone encounter Christina Amaro RN Work Phone: Hematology/Oncology Comment on above: Care Coordination; F uture Appointment Start: 04-16-2025 End: 04-17-2025 Telephone encounter Sandoval Burgess MD Work Phone: Hematology/Oncology Comment on above: Patient Update Start: 04-15-2025 End: 04-15-2025 access nurse [facility] Wstr Work Phone: Hematology/Oncology Comment on above: Encounter for educat ion (Primary Dx); 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) Start: 04-13-2025 End: 04-13-2025 Telephone encounter Liza Canas RN Hematology/Oncology Comment on above: Patient Question Start: 04-09-2025 End: 04-14-2025 Telephone encounter Christina Amaro RN Work Phone: Hematology/Oncology Comment on above: Patient Update Electronic Communica tion Start: 04-08-2025 End: 04-08-2025 Telephone encounter Sandoval Burgess MD Work Phone: Hematology/Oncology Comment on above: avs 7/2 Start: 04-08-2025 End: 04-08-2025 Patient encounter procedure Sandoval Burgess MD Work Phone: Hematology/Oncology Start: 04-08-2025 End: 04-08-2025 ambulatory Sandoval Burgess MD Work Phone: Hematology/Oncology Comment on above: 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) (Primary Dx) Start: 03-31-2025 End: 03-31-2025 ambulatory FIONA D TALAMPAS Facility:[facility] Start: 03-20-2025 End: 03-20-2025 Telephone encounter Zita Torres CT [id number] Comment on above: Appointment (PreOp Rickey jaquez) Start: 03-20-2025 End: 03-20-2025 ambulatory FIONA D TALAMPAS Cardiology Start: 03-20-2025 End: 03-20-2025 Patient encounter procedure Georgina Morgan MD Work Phone: Pulmonary Medicine Comment on above: Malignant neoplasm o f right lung, unspecified part of lung (HCC) (Primary Dx); Lymphadenopathy; Moderate COPD (chronic obstructive pulmonary disease) (HCC); Cigarette smoker; Hypokalemia Start: 03-20-2025 End: 03-20-2025 ambulatory FIONA DURANT Facility:[facility] Start: 03-19-2025 End: 03-19-2025 ambulatory Heriberto Weldon MD Work Phone: Pulmonology Comment on above: Bronchoscopy Schedul ing- CLEARED (Initial bronch request) Start: 03-19-2025 End: 03-23-2025 Telephone encounter Christina Amaro RN Work Phone: Hematology/Oncology Comment on above: Future Appointment ( AVS 03/18/25) Start: 03-18-2025 End: 03-18-2025 Patient encounter procedure Sandoval Burgess MD Work Phone: Hematology/Oncology Start: 03-18-2025 End: 03-18-2025 ambulatory Sandoval Burgess MD Work Phone: Hematology/Oncology Comment on above: 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) (Primary Dx) Start: 03-09-2025 ambulatory SANDOVAL BURGESS Facilit y:[facility] Start: 03-09-2025 End: 03-09-2025 Subsequent hospital visit by physician Injection [facility] PET [facility] Comment on above: 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) [C34.90, C79.51] Start: 02-27-2025 End: 02-27-2025 ambulatory FIONA DURANT Facility:[facility] Start: 02-26-2025 End: 02-26-2025 ambulatory FIONA DURANT Facility:[facility] Start: 02-25-2025 End: 02-25-2025 Office outpatient visit 25 minutes Fiona Durant MD Work Phone: Internal Medicine [place] Comment on above: Cough (Primary Dx); Ocular migraine; Allergic rhinitis, unspecified seasonality, unspecified trigger; Coronary artery disease involving cheesh-na coronary artery of cheesh-na heart without angina pectoris; 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); History of [place] (myocardial infarction); Migraine with aura and without status migrainosus, not intractable Start: 02-25-2025 End: 02-25-2025 ambulatory FIONA D CALEBCLAUDE Facility:[facility] Start: 02-24-2025 End: 02-24-2025 [facility] Start: 02-05-2025 End: 02-05-2025 ambulatory Treatment Rm 3 José Miguel [facility] Wstr Work Phone: Hematology/Oncology Comment on above: 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) (Primary Dx) Start: 02-04-2025 End: 02-04-2025 Patient encounter procedure Sandoval Burgess MD Work Phone: Hematology/Oncology Start: 02-04-2025 End: 02-04-2025 ambulatory Sandoval Burgess MD Work Phone: Hematology/Oncology Comment on above: 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) (Primary Dx) Start: 02-04-2025 End: 02-06-2025 Telephone encounter Sandoval Burgess MD Work Phone: Hematology/Oncology Comment on above: avs 02/04 Start: 01-29-2025 End: 01-29-2025 ambulatory Therese JERNIGAN [place] Start: 01-22-2025 ambulatory Therese JERNIGAN Facility:[facility] Start: 01-14-2025 End: 01-14-2025 ambulatory Treatment Rm 13 José Miguel [facility] Wstr Work Phone: Hematology/Oncology Comment on above: 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) (Primary Dx) Start: 01-13-2025 End: 01-13-2025 Patient encounter procedure Carrie Preciado APRN.CHANGE MANAGEMENT DIRECTOR Work Phone: Hematology/Oncology Start: 01-13-2025 End: 01-13-2025 ambulatory Carrie Preciado CREDIT AND LOAN COLLECTIONS SUPERVISOR.CHANGE MANAGEMENT DIRECTOR Work Phone: Hematology/Oncology Comment on above: 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) Start: 01-01-2025 ambulatory Therese rfitz PA Facility:[facility] Start: 12-25-2024 End: 12-25-2024 ambulatory Treatment Rm 3 José Miguel [facility] W[facility] Work Phone: Hematology/Oncology Comment on above: 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) (Primary Dx) Start: 12-24-2024 End: 12-24-2024 Patient encounter procedure Sandoval Burgess MD Work Phone: Hematology/Oncology Start: 12-24-2024 End: 12-24-2024 ambulatory Sandoval Burgess MD Work Phone: Hematology/Oncology Comment on above: 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) (Primary Dx) Start: 12-09-2024 ambulatory Therese JERNIGAN [place] Start: 12-04-2024 End: 12-04-2024 ambulatory Treatment Rm 3 José Miguel [facility] YETI Grouptr Work Phone: Hematology/Oncology Comment on above: Cancer of trachea, b ronchus, and lung (HCC) (Primary Dx) Start: 12-02-2024 End: 01-02-2025 ambulatory Fiona Durant MD Work Phone: Internal Medicine [place] Start: 12-01-2024 End: 12-01-2024 ambulatory FIONA DURANT Facility:[facility] Start: 12-01-2024 End: 12-01-2024 Office outpatient visit 25 minutes Fiona Durant MD Work Phone: Internal Medicine [place] Comment on above: Acute bronchitis wit h chronic obstructive pulmonary disease (COPD) (HCC) (HCC) (Primary Dx); Cancer of lower lobe of right lung (HCC); Class 2 obesity due to excess calories without serious comorbidity with body mass index (BMI) of 35.0 to 35.9 in adult; Tobacco use disorder; Examination of participant in clinical trial Start: 12-01-2024 End: 12-01-2024 Patient encounter procedure Fiona Durant MD Work Phone: [facility] Start: 11-26-2024 End: 11-26-2024 Telephone encounter aSndoval Burgess MD Work Phone: Hematology/Oncology Comment on above: Patient Update ([place]) Start: 11-25-2024 End: 01-25-2025 Follow-up encounter Floresita Carbajal Work Phone: Hematology/Oncology Start: 11-25-2024 End: 11-26-2024 Telephone encounter Floresita Carbajal Work Phone: Hematology/Oncology Start: 11-21-2024 End: 11-21-2024 Telephone encounter Christina Amaro RN Work Phone: Hematology/Oncology Comment on above: Care Coordination (F ollow Up) Start: 11-19-2024 End: 11-19-2024 ambulatory FIONA DURANT Facility:[facility] Start: 11-19-2024 End: 11-19-2024 Subsequent hospital visit by physician Ct [facility] W[facility] (I-Stat) Work Phone: Cat Scan Comment on above: Dyspnea and respirat ory abnormalities [R06.00, R06.89] Start: 11-19-2024 End: 11-19-2024 Telephone encounter Christina Amaro RN Work Phone: Hematology/Oncology Comment on above: Results (radiology) Start: 11-19-2024 End: 11-19-2024 Patient encounter procedure Sandoval Burgess MD Work Phone: Hematology/Oncology Start: 11-19-2024 End: 11-19-2024 Subsequent hospital visit by physician Xr [facility] Quentin Gomes Work Phone: Radiology Comment on above: Dyspnea and respirat ory abnormalities [R06.00, R06.89] Start: 11-19-2024 End: 11-19-2024 ambulatory Sandoval Burgess MD Work Phone: Hematology/Oncology Comment on above: Dyspnea and respirat ory abnormalities (Primary Dx); Shortness of breath on exertion; 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) Start: 11-18-2024 End: 11-19-2024 Telephone encounter Christina Amaro RN Work Phone: Hematology/Oncology Comment on above: Care Coordination (F ollow up Symptoms) Start: 11-14-2024 End: 11-14-2024 Telephone encounter Sandoval Burgess MD Work Phone: Hematology/Oncology Comment on above: Patient Update Start: 11-07-2024 End: 11-07-2024 Telephone encounter Christina Amaro RN Work Phone: Hematology/Oncology Comment on above: Care Coordination (T oxicity Check) Start: 10-31-2024 End: 10-31-2024 Telephone encounter Christina Amaro RN Work Phone: Hematology/Oncology Comment on above: Care Coordination (C YCLE 1/DAY 1 POST TREATMENT CALL ) Start: 10-30-2024 End: 10-30-2024 ambulatory Treatment Rm 6 José Miguel [facility] Wstr Work Phone: Hematology/Oncology Comment on above: 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) (Primary Dx) Start: 10-27-2024 End: 10-27-2024 access nurse [facility] W[facility] Work Phone: Hematology/Oncology Comment on above: Encounter for educat ion (Primary Dx); 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) Start: 10-23-2024 End: 10-23-2024 Chart abstracting Liza Canas RN Hematology/Oncology Comment on above: Research (CTD - Prog ression [id number]) Start: 10-23-2024 End: 10-23-2024 Telephone encounter Sandoval Burgess MD Work Phone: Hematology/Oncology Comment on above: AVS 10/23 Start: 10-23-2024 End: 10-23-2024 Patient encounter procedure Sandoval Burgess MD Work Phone: Hematology/Oncology Start: 10-23-2024 End: 10-23-2024 ambulatory Sandoval Burgess MD Work Phone: Hematology/Oncology Comment on above: 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) (Primary Dx) Start: 10-17-2024 End: 10-17-2024 Chart abstracting Liza Canas RN Hematology/Oncology Comment on above: Research (RECIST [id number]) Start: 10-17-2024 End: 10-23-2024 Telephone encounter Mckenzie Jones RN Hematology/Oncology Comment on above: Health Coach - O ther (Treatment Planning ) Start: 10-16-2024 End: 10-16-2024 Telephone encounter Christina Amaro RN Work Phone: Hematology/Oncology Comment on above: Future Appointment Start: 10-05-2024 End: 10-05-2024 ambulatory [facility] Facility:[facility] Start: 10-05-2024 End: 10-05-2024 Office outpatient new 30 minutes [place] Arevalo PA-C Work Phone: [facility] Comment on above: Acute recurrent sinu sitis, unspecified location (Primary Dx); COPD with exacerbation (HCC) Start: 10-02-2024 End: 10-02-2024 [facility] Facility:[facility] Start: 09-30-2024 End: 09-30-2024 Telephone encounter Mckenzie Jones RN Hematology/Oncology Comment on above: Health Coach - O ther (Change in treatment ) Appointment (Lab apt ) Results (potassium) Start: 09-30-2024 End: 09-30-2024 Patient encounter procedure Sandoval Burgess MD Work Phone: Hematology/Oncology Start: 09-30-2024 End: 09-30-2024 ambulatory Sandoval Burgess MD Work Phone: Hematology/Oncology Comment on above: 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) (Primary Dx) Start: 09-15-2024 End: 10-02-2024 Chart abstracting Chyna Vasquez RN Hematology/Oncology Start: 09-15-2024 ambulatory SANDOVAL BURGESS Facilit y:[facility] Start: 09-15-2024 End: 09-15-2024 Subsequent hospital visit by physician Injection [facility] PET CT Comment on above: Malignant neoplasm o f unspecified part of unspecified bronchus or lung (HCC) [C34.90] Start: 09-11-2024 End: 09-11-2024 ambulatory [facility] Facility:[facility] Start: 09-11-2024 End: 09-11-2024 Patient encounter procedure Georgina Morgan MD Work Phone: Pulmonary Medicine Comment on above: Asthma-COPD overlap syndrome (HCC) (Primary Dx); Cigarette smoker; Lung cancer metastatic to bone (HCC) Start: 09-08-2024 End: 09-08-2024 ambulatory FIONA DURANT Facility:[facility] Start: 09-08-2024 End: 09-08-2024 Office outpatient visit 25 minutes Fiona Durant MD Work Phone: Internal Medicine [place] Comment on above: Elevated glucose (Pr imary Dx); Smoker; Cigarette smoker; 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); Cancer of lower lobe of right lung (HCC); COPD with exacerbation (HCC); Polyp of mouth; Screening for depression; Encounter for immunization; Encounter for screening examination for other mental health and behavioral disorders; Examination of participant in clinical trial; Skin lesions Start: 09-08-2024 End: 09-08-2024 Patient encounter procedure Fiona Durant MD Work Phone: [facility] Start: 08-21-2024 End: 08-21-2024 ambulatory Treatment Rm 4 José Miguel [facility] YETI Grouptr Work Phone: Hematology/Oncology Comment on above: 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) (Primary Dx) Start: 08-19-2024 End: 08-19-2024 Telephone encounter Sandoval Burgess MD Work Phone: Hematology/Oncology Start: 08-19-2024 End: 08-19-2024 Patient encounter procedure Sandoval Burgess MD Work Phone: Hematology/Oncology Start: 08-19-2024 End: 08-19-2024 ambulatory Sandoval Burgess MD Work Phone: Hematology/Oncology Comment on above: Malignant neoplasm o f unspecified part of unspecified bronchus or lung (HCC) (Primary Dx); Malaise and fatigue Start: 07-10-2024 End: 07-10-2024 ambulatory Treatment Rm 5 José Miguel [facility] Work Phone: Hematology/Oncology Comment on above: 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) (Primary Dx) Start: 07-08-2024 End: 07-09-2024 Refill Fiona Durant MD Work Phone: Internal Medicine [place] Comment on above: Refill Request 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) (Primary Dx) Start: 06-25-2024 ambulatory Les Dennis Facility:[facility] Start: 06-12-2024 End: 06-26-2024 Chart abstracting Liza Canas RN Hematology/Oncology Comment on above: Research (RECIST) Start: 06-06-2024 End: 06-06-2024 Office outpatient visit 25 minutes Fiona Durant MD Work Phone: Internal Medicine [place] Comment on above: Acute bronchitis wit h chronic obstructive pulmonary disease (COPD) (HCC) (HCC) (Primary Dx); 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); Elevated glucose; Class 2 obesity due to excess calories with body mass index (BMI) of 38.0 to 38.9 in adult, unspecified whether serious comorbidity present; Cigarette smoker Start: 06-06-2024 End: 06-06-2024 ambulatory FIONA DURANT Facility:[facility] Start: 05-29-2024 End: 05-29-2024 ambulatory Treatment Rm 4 José Miguel [facility] W[facility] Work Phone: Hematology/Oncology Comment on above: 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) (Primary Dx) Start: 05-27-2024 End: 05-27-2024 Patient encounter procedure Floresita Carbajal Work Phone: Hematology/Oncology Start: 05-27-2024 End: 05-27-2024 ambulatory Floresita Carbajal Work Phone: Hematology/Oncology Comment on above: 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) (Primary Dx); Hypokalemia Start: 05-26-2024 End: 05-29-2024 Orders Only Floresita Carbajal Work Phone: Hematology/Oncology Comment on above: 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); Malaise and fatigue; Hypoadrenalism (HCC); Malignant neoplasm metastatic to bone (HCC) Start: 05-23-2024 End: 05-28-2024 Telephone encounter Christina Amaro RN Work Phone: Hematology/Oncology Comment on above: Care Coordination (E lectric Wheelchair) Start: 05-08-2024 End: 05-08-2024 ambulatory Fiona Jairo Durant [place] Start: 05-05-2024 ambulatory SANDOVAL [place] y:[facility] Start: 05-05-2024 End: 05-05-2024 Subsequent hospital visit by physician Injection [facility] CT Comment on above: 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) [C34.90, C79.51] Start: 04-17-2024 End: 04-17-2024 ambulatory Treatment Rm 13 [facility] W[facility] Work Phone: Hematology/Oncology Comment on above: 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) (Primary Dx); Malaise and fatigue Start: 04-15-2024 End: 04-15-2024 ambulatory Sandoval Burgess MD Work Phone: Hematology/Oncology Comment on above: 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) (Primary Dx) Start: 04-15-2024 End: 04-15-2024 Patient encounter procedure Sandoval Burgess MD Work Phone: Hematology/Oncology Start: 04-11-2024 Refill Georgina Morgan MD Work Phone: Pulmonary Medicine Comment on above: Refill Request Start: 03-10-2024 Refill Sandoval bearden MD Work Phone: Hematology/Oncology Comment on above: Refill Request Start: 03-06-2024 Chart abstracting Liza Canas RN Hematology/Oncology Comment on above: Research (RECIST 1.1 ) Start: 03-06-2024 End: 03-06-2024 ambulatory Treatment Rm 13 José Miguel [facility] Work Phone: Hematology/Oncology Comment on above: 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) (Primary Dx) Start: 03-05-2024 End: 03-05-2024 ambulatory Sandoval Burgess MD Work Phone: Hematology/Oncology Comment on above: 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) (Primary Dx) Start: 03-05-2024 End: 03-05-2024 Patient encounter procedure Sandoval Burgess MD Work Phone: Hematology/Oncology Start: 02-20-2024 End: 02-20-2024 Office outpatient visit 25 minutes Fiona Durant MD Work Phone: Internal Medicine [place] Comment on above: Stage 3 severe COPD by GOLD classification (HCC); Right hip pain; Coronary artery disease involving cheesh-na coronary artery of cheesh-na heart without angina pectoris; Irritable bowel syndrome with both constipation and diarrhea; Fibromyalgia; Cigarette smoker; Cough; COPD with exacerbation (HCC) Start: 02-18-2024 End: 02-18-2024 Subsequent hospital visit by physician Injection Pet Ct [employer] [employer] PET CT Comment on above: Malignant neoplasm o f unspecified part of unspecified bronchus or lung (HCC) [C34.90] Start: 01-30-2024 Chart abstracting Liza Canas RN Hematology/Oncology Comment on above: Research (RECIST Abs tract) Start: 01-24-2024 End: 01-24-2024 ambulatory Treatment Rm 13 José Miguel [facility] Work Phone: Hematology/Oncology Comment on above: 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) (Primary Dx) Start: 01-23-2024 Telephone encounter Liza Canas RN Hematology/Oncology Start: 01-23-2024 End: 01-23-2024 ambulatory Sandoval Burgess MD Work Phone: Hematology/Oncology Comment on above: 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) (Primary Dx) Start: 01-23-2024 End: 01-23-2024 Patient encounter procedure Sandoval Burgess MD Work Phone: [facility] Start: 12-26-2023 ambulatory Fiona kelley MD Work Phone: Internal Medicine [facility] Start: 12-20-2023 Chart abstracting Liza Canas RN Hematology/Oncology Comment on above: Research (RECIST 1.1 [id number]) Start: 12-20-2023 Telephone encounter Fiona diaz MD Work Phone: Family Medicine [place] Comment on above: Medication Question Start: 12-13-2023 End: 12-13-2023 ambulatory Treatment Rm 13 José Miguel [facility] Work Phone: Hematology/Oncology Comment on above: Malignant neoplasm m etastatic to bone (HCC) (Primary Dx); 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) Start: 12-12-2023 End: 12-12-2023 ambulatory Sandoval Burgess MD Work Phone: Hematology/Oncology Comment on above: 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) (Primary Dx) Start: 12-12-2023 End: 12-12-2023 Patient encounter procedure Sandoval Burgess MD Work Phone: [facility] Start: 12-11-2023 Chart abstracting Liza Canas RN Hematology/Oncology Start: 11-28-2023 End: 11-28-2023 Office outpatient visit 15 minutes Fiona Durant MD Work Phone: Internal Medicine [place] Comment on above: Prediabetes (Primary Dx); COPD with exacerbation (HCC); Cigarette smoker; Cough; Cancer of lower lobe of right lung (HCC); Examination of participant in clinical trial Start: 11-28-2023 End: 11-28-2023 Patient encounter procedure Fiona Durant MD Work Phone: [facility] Work Phone: Start: 11-16-2023 End: 11-16-2023 ambulatory Sandoval Burgess MD Work Phone: Hematology/Oncology Comment on above: 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) (Primary Dx) Start: 11-16-2023 End: 11-16-2023 Patient encounter procedure Sandoval Burgess MD Work Phone: [facility] Start: 11-12-2023 End: 11-12-2023 Subsequent hospital visit by physician Pet Ct [place] [facility] PET CT Comment on above: 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) [C34.90, C79.51] Start: 09-18-2023 Telephone encounter Sandoval tiwari MD Work Phone: Hematology/Oncology Comment on above: Appointment; Patient Update Start: 09-03-2023 Refill Fiona kelley MD Work Phone: Internal Medicine [place] Comment on above: Refill Request Patient Request Start: 08-16-2023 Telephone encounter Liza Canas RN Hematology/Oncology Start: 08-13-2023 Telephone encounter Sandoval tiwari MD Work Phone: Hematology/Oncology Comment on above: Results Start: 08-10-2023 Chart abstracting Liza Canas RN Hematology/Oncology Comment on above: Research (RECIST 1.1 Abstract ) Start: 08-10-2023 End: 08-10-[address] (I-Stat) Work Phone: [facility] Start: 08-10-2023 End: 08-10-2023 Subsequent hospital visit by physician Ct [facility] (I-Stat) Work Phone: Cat Scan Comment on above: 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) [C34.90, C79.51] Start: 08-08-2023 End: 08-08-2023 ambulatory Treatment Rm 13 José Miguel [facility] Work Phone: Hematology/Oncology Comment on above: 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) (Primary Dx); Cancer of trachea, bronchus, and lung (HCC); Malignant neoplasm metastatic to bone (HCC) Start: 08-01-2023 End: 08-01-2023 Patient encounter procedure Isabel Campuzano PA-C Work Phone: [facility] Comment on above: Sore throat (Primary Dx); Rash; Chronic obstructive pulmonary disease with acute exacerbation (HCC) Start: 07-23-2023 Telephone encounter Ann Slade PA-C Work Phone: Pulmonary Medicine Comment on above: Medication Problem Start: 09-19-2023 Nursing evaluation o f patient and report Liza Canas RN Hematology/Oncology Comment on above: Examination of parti cipant in clinical trial (Primary Dx) Start: 06-26-2023 End: 06-26-2023 Patient encounter procedure Liza Canas RN [facility] Start: 06-26-2023 End: 06-26-2023 ambulatory Sandoval Burgess MD Work Phone: Hematology/Oncology Comment on above: 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) (Primary Dx) Start: 06-23-2023 Refill Georgina Morgan MD Work Phone: Pulmonary Medicine Comment on above: Refill Request Start: 06-20-2023 End: 06-20-2023 Patient encounter procedure Ann Slade PA-C Work Phone: Pulmonary Medicine Comment on above: Stage 3 severe COPD by GOLD classification (HCC) (Primary Dx); Malignant neoplasm of right lung, unspecified part of lung (HCC); Cigarette smoker Start: 05-25-2023 End: 05-25-2023 Patient encounter procedure Perla Lotus GOLDCHANGE MANAGEMENT DIRECTOR Work Phone: [facility] Comment on above: Thrush (Primary Dx) Start: 05-22-2023 End: 05-22-2023 Office outpatient visit 25 minutes Fiona Durant MD Work Phone: Internal Medicine [place] Comment on above: Fibromyalgia (Primar y Dx); Cigarette smoker; Class 2 obesity due to excess calories with body mass index (BMI) of 39.0 to 39.9 in adult, unspecified whether serious comorbidity present; COPD with asthma (HCC); Pain of right hip; Mixed stress and urge urinary incontinence; Coronary artery disease involving cheesh-na coronary artery of cheesh-na heart without angina pectoris Start: 05-16-2023 End: 05-16-2023 ambulatory Treatment Rm 13 José Miguel [facility] Work Phone: Hematology/Oncology Comment on above: 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) (Primary Dx); Cancer of trachea, bronchus, and lung (HCC); Malignant neoplasm metastatic to bone (HCC) Start: 05-15-2023 End: 05-15-2023 ambulatory Sandoval Burgess MD Work Phone: Hematology/Oncology Comment on above: 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) (Primary Dx) Start: 05-15-2023 End: 05-15-2023 Patient encounter procedure Sandoval Burgess MD Work Phone: [facility] Start: 05-14-2023 Chart abstracting Liza Canas RN Hematology/Oncology Comment on above: Research (RECIST 1.1 /[id number]) Start: 05-14-2023 Telephone encounter Liza Canas RN Hematology/Oncology Comment on above: Research Start: 05-11-2023 End: 05-11-2023 Subsequent hospital visit by physician Ct [facility] Cat Scan Start: 04-16-2023 End: 04-16-2023 Patient encounter procedure Perla Gautam APRN.CNP Work Phone: [facility] Comment on above: Eye irritation (Prim cruz Dx) Start: 04-05-2023 Telephone encounter Liza Canas RN Hematology/Oncology Comment on above: Appointment Start: 04-04-2023 End: 04-04-2023 ambulatory Treatment Rm 13 José Miguel [facility] Work Phone: Hematology/Oncology Comment on above: 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) (Primary Dx) Start: 04-03-2023 End: 04-03-2023 Chart abstracting Liza Canas RN Hematology/Oncology Comment on above: Research Cancer of lower lobe of right lung (HCC) (Primary Dx); Malignant neoplasm metastatic to bone (HCC); Iliac bone pain; Examination of participant in clinical trial; Tobacco use disorder; Nontoxic single thyroid nodule Start: 04-03-2023 End: 04-03-2023 Patient encounter procedure Telly uDncan DO Work Phone: [facility] Start: 03-27-2023 Orders Only Telly Gill O Work Phone: Hematology/Oncology Comment on above: Malignant neoplasm o f unspecified part of unspecified bronchus or lung (HCC) (Primary Dx) Start: 03-21-2023 Telephone encounter Georgina Morgan MD Work Phone: Pulmonary Medicine Comment on above: Insurance Authorizat ion Start: 03-19-2023 Telephone encounter Telly vargas DO Work Phone: Hematology/Oncology Comment on above: Results (Thyroid ult rasound) Start: 03-19-2023 End: 03-19-2023 ambulatory [facility] Work Phone: [facility]ULM [facility] Comment on above: Spirometry Start: 03-19-2023 End: 03-19-2023 Patient encounter procedure Pulm Lab [facility] Work Phone: [facility] Start: 03-16-2023 End: 03-16-2023 Subsequent hospital visit by physician [facility] 1 Work Phone: Radiology Comment on above: Thyroid nodule [E04. 1] Start: 03-12-2023 Telephone encounter Christophe stanley MD Work Phone: Orthopaedics Comment on above: Patient cancelled po st op visit Start: 02-21-2023 End: 02-21-2023 ambulatory Treatment Rm 13 José Miguel [facility] Work Phone: Hematology/Oncology Comment on above: Malignant neoplasm m etastatic to bone (HCC) (Primary Dx); 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); Cancer of trachea, bronchus, and lung (HCC) Start: 02-20-2023 Telephone encounter Telly vargas DO Work Phone: Hematology/Oncology Comment on above: Results (Low potassi um) Start: 02-20-2023 End: 02-20-2023 ambulatory Telly Duncan DO Work Phone: Hematology/Oncology Comment on above: 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) (Primary Dx); Thyroid nodule Start: 02-20-2023 End: 02-20-2023 Patient encounter procedure Telly Duncan DO Work Phone: [facility] Start: 02-19-2023 Orders Only Telly Gill O Work Phone: Hematology/Oncology Comment on above: 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) (Primary Dx); Cancer of lower lobe of right lung (HCC); Cancer of trachea, bronchus, and lung (HCC) Start: 02-12-2023 Chart abstracting Liza Canas RN Hematology/Oncology Comment on above: Research (RECIST;[id number]) Start: 02-09-2023 End: 02-09-[address] ([facility]) Work Phone: [facility] Start: 02-09-2023 End: 02-09-2023 Subsequent hospital visit by physician Ct [facility] ([facility]-Stat) Work Phone: Cat Scan Comment on above: Cancer of lower lobe of right lung (HCC) [C34.31] Start: 02-06-2023 Admission to [facility] Christophe Hassan MD Work Phone: Orthopaedics Comment on above: Surgery date Start: 02-06-2023 E-mail encounter irma m caregiver Christophe Hassan MD Work Phone: [facility] Start: 02-02-2023 Telephone encounter Christophe stanley MD Work Phone: Orthopaedics Comment on above: Schedule Surgery Start: 02-01-2023 End: 02-01-2023 Office outpatient visit 15 minutes Bebe Flores APRN.ETHANOL QUALITY LEADER Work Phone: Internal Medicine [place] Comment on above: COPD with exacerbati on (HCC) (Primary Dx); Pulmonary emphysema, unspecified emphysema type (HCC); Simple chronic bronchitis (HCC); Cigarette smoker Start: 01-25-2023 Telephone encounter Fiona diaz MD Work Phone: Internal Medicine [place] Comment on above: Orders Start: 01-25-2023 End: 01-25-2023 Patient encounter procedure Kathy Almaraz APRN.CHANGE MANAGEMENT DIRECTOR Work Phone: Internal Medicine [place] Comment on above: COPD with exacerbati on (HCC) (Primary Dx); Acute cough; Wheezing; Shortness of breath Start: 01-23-2023 Refill Fiona kelley MD Work Phone: Internal Medicine [place] Comment on above: Refill Request Start: 01-17-2023 ambulatory Fiona kelley MD Work Phone: Internal Medicine [facility] Start: 01-09-2023 Nursing evaluation o f patient and report Liza Canas airplane mechanic apprentice/Oncology Comment on above: Examination of parti cipant in clinical trial (Primary Dx) Start: 01-09-2023 End: 01-09-2023 Patient encounter procedure Carrie Preciado CREDIT AND LOAN COLLECTIONS SUPERVISOR.CHANGE MANAGEMENT DIRECTOR Work Phone: [facility] Start: 01-09-2023 Telephone encounter Liza Canas RN Hematology/Oncology Comment on above: Research Start: 01-09-2023 End: 01-09-2023 ambulatory Carrie Preciado CREDIT AND LOAN COLLECTIONS SUPERVISOR.CHANGE MANAGEMENT DIRECTOR Work Phone: Hematology/Oncology Comment on above: Cancer of lower lobe of right lung (HCC) (Primary Dx); Left leg swelling Start: 11-29-2022 Telephone encounter Fiona diaz MD Work Phone: Internal Medicine [place] Comment on above: Refill Request Start: 11-28-2022 Telephone encounter Fiona diaz MD Work Phone: Internal Medicine [place] Comment on above: Orders Start: 11-13-2022 End: 11-13-[address] (I-Stat) Work Phone: [facility] Start: 11-13-2022 End: 11-13-2022 Subsequent hospital visit by physician Ct [facility] (I-Stat) Work Phone: Cat Scan Comment on above: Cancer of trachea, b ronchus, 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, 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] Start: 10-24-2022 End: 10-24-2022 Office outpatient visit 25 minutes Fiona Durant MD Work Phone: Internal Medicine [place] Comment on above: Trigger ring finger of left hand (Primary Dx); Right hip pain; Cigarette smoker; History of [place] (myocardial infarction); COPD with asthma (HCC); 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) Start: 10-18-2022 End: 10-18-2022 ambulatory Treatment Rm 3 [facility] [employer] Work Phone: Hematology/Oncology Comment on above: 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) (Primary Dx) Start: 10-17-2022 Nursing evaluation o f patient and report Liza Canas RN Radiation Oncology Comment on above: OPENED IN ERROR (Merna tonia Dx) Start: 10-17-2022 End: 10-17-2022 ambulatory Anca Huddleston MD Work Phone: Hematology/Oncology Comment on above: Bone metastases (HCC ) (Primary Dx); Cancer of lower lobe of right lung (HCC); Cancer of trachea, bronchus, and lung (HCC) Start: 10-17-2022 End: 10-17-2022 Patient encounter procedure Anca Huddleston MD Work Phone: [facility] Start: 09-27-2022 End: 09-27-2022 ambulatory Treatment Rm 10 [facility] [employer] Work Phone: Hematology/Oncology Comment on above: Cancer of trachea, b ronchus, and lung (HCC) (Primary Dx); Bone metastases (HCC) Start: 09-26-2022 Nursing evaluation o f patient and report Liza Canas RN Hematology/Oncology Comment on above: Examination of parti cipant in clinical trial (Primary Dx) Start: 09-26-2022 End: 09-26-2022 Patient encounter procedure Anca Huddleston MD Work Phone: Hematology/Oncology Comment on above: Bone metastases (HCC ) (Primary Dx); Examination of participant in clinical trial; Cancer of lower lobe of right lung (HCC) Start: 09-06-2022 End: 09-06-2022 ambulatory Treatment Rm 4 [facility] [employer] Work Phone: Hematology/Oncology Comment on above: Cancer of trachea, b ronchus, and lung (HCC) (Primary Dx); Bone metastases (HCC) Start: 09-04-2022 Nursing evaluation o f patient and report Liza Canas RN Hematology/Oncology Comment on above: Examination of parti cipant in clinical trial (Primary Dx) Start: 09-04-2022 Patient encounter procedure Liza Canas RN Hematology/Oncology Start: 08-14-2022 Chart abstracting Liza Canas RN Hematology/Oncology Comment on above: RECIST Measurement Start: 08-14-2022 Nursing evaluation o f patient and report Liza Canas RN Hematology/Oncology Comment on above: Examination of parti cipant in clinical trial (Primary Dx) Start: 08-14-2022 End: 08-14-2022 Patient encounter procedure Anca Huddleston MD Work Phone: Hematology/Oncology Comment on above: Examination of parti cipant in clinical trial (Primary Dx); Cancer of lower lobe of right lung (HCC); Bone metastases (HCC) Start: 08-14-2022 Telephone encounter Anca Huddleston MD Work Phone: Hematology/Oncology Comment on above: AVS Start: 08-10-2022 End: 08-10-2022 Subsequent hospital visit by physician [facility] (I-Stat) Work Phone: Cat Scan Comment on above: Malignant neoplasm o f unspecified part of unspecified bronchus or lung (HCC) [C34.90] Start: 07-26-2022 Telephone encounter Anca Huddleston MD Work Phone: Hematology/Oncology Comment on above: Orders Start: 07-25-2022 Refill Fiona kelley MD Work Phone: Internal Medicine [place] Comment on above: Refill Request Start: 07-24-2022 Nursing evaluation o f patient and report Liza Canas RN Hematology/Oncology Comment on above: Examination of parti cipant in clinical trial (Primary Dx) Start: 07-24-2022 End: 07-24-2022 Patient encounter procedure Liza Canas RN Hematology/Oncology Comment on above: 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) (Primary Dx); Bone metastases (HCC); Examination of participant in clinical trial Start: 07-24-2022 Telephone encounter Liza Canas RN Hematology/Oncology Comment on above: Appointment Start: 07-19-2022 End: 07-19-2022 Office outpatient visit 15 minutes Fiona Durant MD Work Phone: Internal Medicine [place] Comment on above: Cough (Primary Dx); ST elevation myocardial infarction involving right coronary artery (HCC); Physical debility; 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); COPD with asthma (HCC); Encounter for immunization Start: 07-04-2022 End: 07-04-2022 ambulatory Treatment Rm 7 José Miguel [facility] Work Phone: Hematology/Oncology Comment on above: Cancer of trachea, b ronchus, and lung (HCC) (Primary Dx); Bone metastases (HCC) Start: 07-03-2022 Nursing evaluation o f patient and report Liza Canas RN Hematology/Oncology Comment on above: Examination of parti cipant in clinical trial (Primary Dx) Refill Request Start: 07-03-2022 Patient encounter procedure Liza Canas RN Hematology/Oncology Start: 06-30-2022 Orders Only Telly Lopez Work Phone: Hematology/Oncology Comment on above: Cancer of trachea, b ronchus, and lung (HCC) (Primary Dx); Bone metastases (HCC) Start: 06-13-2022 End: 06-13-2022 ambulatory Treatment Rm 10 José Miguel [facility] Work Phone: Hematology/Oncology Comment on above: Cancer of trachea, b ronchus, and lung (HCC) (Primary Dx); Bone metastases (HCC) Start: 06-09-2022 Nursing evaluation o f patient and report Liza Canas RN Hematology/Oncology Comment on above: Examination of parti cipant in clinical trial (Primary Dx) Start: 06-09-2022 Patient encounter procedure Liza Canas RN Hematology/Oncology Comment on above: Examination of parti cipant in clinical trial (Primary Dx); 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); Cancer of trachea, bronchus, and lung (HCC) Start: 05-25-2022 Chart abstracting Liza Canas RN Hematology/Oncology Comment on above: RECIST Measurement ( /) Start: 05-24-2022 End: 05-24-2022 Subsequent hospital visit by physician Ct [facility] (I-Stat) Work Phone: Cat Scan Comment on above: Malignant neoplasm o f unspecified part of unspecified bronchus or lung (HCC) [C34.90] Start: 05-23-2022 Nursing evaluation o f patient and report Liza Canas RN Hematology/Oncology Comment on above: Examination of parti cipant in clinical trial (Primary Dx) Start: 05-23-2022 Patient encounter procedure Liza Canas RN Hematology/Oncology Start: 05-23-2022 End: 05-23-2022 ambulatory Treatment Rm 9 José Miguel [facility] Work Phone: Hematology/Oncology Comment on above: Cancer of trachea, b ronchus, and lung (HCC) (Primary Dx); Bone metastases (HCC) Start: 05-11-2022 Telephone encounter Anca Huddleston MD Work Phone: Hematology/Oncology Comment on above: Patient Update Start: 05-09-2022 Telephone encounter Anca Huddleston MD Work Phone: Hematology/Oncology Comment on above: Patient Update Appointment Start: 05-08-2022 End: 05-08-2022 Patient encounter procedure Anca Huddleston MD Work Phone: Hematology/Oncology Comment on above: 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) (Primary Dx); Bone metastases (HCC); Examination of participant in clinical trial Start: 05-05-2022 End: 05-05-2022 Subsequent hospital visit by physician Ct [facility] (I-Stat) Work Phone: Cat Scan Comment on above: Malignant neoplasm o f unspecified part of unspecified bronchus or lung (HCC) [C34.90] Start: 04-18-2022 Patient encounter procedure Liza Canas RN [facility] Work Phone: Start: 04-18-2022 End: 04-18-2022 ambulatory Treatment Rm 8 [facility] Work Phone: Hematology/Oncology Comment on above: 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) (Primary Dx); Cancer of trachea, bronchus, and lung (HCC); Bone metastases (HCC) Start: 04-17-2022 End: 04-17-2022 Office outpatient visit 25 minutes Fiona Durant MD Work Phone: Internal Medicine [place] Comment on above: Fibromyalgia (Primar y Dx); Cough; COPD with asthma (HCC); Cigarette smoker; Acute conjunctivitis of both eyes, unspecified acute conjunctivitis type; 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) Start: 04-17-2022 Nursing evaluation o f patient and report Liza Canas RN Hematology/Oncology Comment on above: Examination of parti cipant in clinical trial (Primary Dx) Start: 04-17-2022 Patient encounter procedure Liza Canas RN Hematology/Oncology Start: 03-29-2022 End: 03-29-2022 ambulatory Treatment Rm 7 José Miguel [facility] Work Phone: Hematology/Oncology Comment on above: Cancer of trachea, b ronchus, and lung (HCC) (Primary Dx); Bone metastases (HCC) Start: 03-28-2022 Nursing evaluation o f patient and report Liza Canas RN Hematology/Oncology Comment on above: Examination of parti cipant in clinical trial (Primary Dx) Start: 03-28-2022 End: 03-28-2022 Patient encounter procedure Liza Cnaas RN Hematology/Oncology Comment on above: Bone metastases (HCC ) (Primary Dx); Cancer of trachea, bronchus, and lung (HCC); Examination of participant in clinical trial Start: 03-03-2022 Nursing evaluation o f patient and report Liza Canas RN Hematology/Oncology Comment on above: Examination of parti cipant in clinical trial (Primary Dx) Start: 03-03-2022 End: 03-03-2022 Patient encounter procedure Anca Huddleston MD Work Phone: Hematology/Oncology Comment on above: Bone metastases (HCC ) (Primary Dx); Examination of participant in clinical trial; Cancer of lower lobe of right lung (HCC) Start: 02-15-2022 End: 02-15-2022 ambulatory Treatment Rm 13 José Miguel [facility] Work Phone: Hematology/Oncology Comment on above: Cancer of trachea, b ronchus, and lung (HCC) (Primary Dx); Bone metastases (HCC) Start: 02-15-2022 Chart abstracting Liza Canas RN Hematology/Oncology Comment on above: RECIST Measurement Start: 02-14-2022 Nursing evaluation o f patient and report Liza Canas RN Hematology/Oncology Comment on above: Examination of parti cipant in clinical trial (Primary Dx) Start: 02-14-2022 End: 02-14-2022 Patient encounter procedure Liza Canas RN Hematology/Oncology Comment on above: Bone metastases (HCC ) (Primary Dx); Examination of participant in clinical trial; Malignant neoplasm of unspecified part of unspecified bronchus or lung (HCC); Cancer of lower lobe of right lung (HCC) Start: 02-14-2022 Telephone encounter Liza Canas RN Hematology/Oncology Comment on above: Appointment Start: 02-10-2022 Chart abstracting Татьяна Reyes Ramón Young Work Phone: Hematology/Oncology Comment on above: Research (RECIST 1.1 Addendum Request) Start: 02-10-2022 End: 02-10-2022 Subsequent hospital visit by physician [facility] ([facility] Work Phone: Cat Scan Comment on above: Bone metastases (HCC ) [C79.51] Start: 01-25-2022 End: 01-25-2022 ambulatory Treatment Rm 7 José Miguel [facility] Work Phone: Hematology/Oncology Comment on above: Cancer of trachea, b ronchus, and lung (HCC) (Primary Dx); Bone metastases (HCC) Start: 01-25-2022 Telephone encounter Liza Canas RN Hematology/Oncology Comment on above: Appointment Start: 01-24-2022 Nursing evaluation o f patient and report Liza Canas RN Hematology/Oncology Comment on above: Examination of parti cipant in clinical trial (Primary Dx) Start: 01-24-2022 Patient encounter procedure Liza Canas RN Hematology/Oncology Start: 01-24-2022 Telephone encounter Liza Canas RN Hematology/Oncology Comment on above: Appointment Start: 01-23-2022 Orders Only Telly Lopez Work Phone: Hematology/Oncology Comment on above: Cancer of trachea, b ronchus, and lung (HCC) (Primary Dx); Bone metastases (HCC) Start: 01-04-2022 End: 01-04-2022 ambulatory Treatment Rm 7 José Miguel [facility] Work Phone: Hematology/Oncology Comment on above: Cancer of trachea, b ronchus, and lung (HCC) (Primary Dx); Bone metastases (HCC) Start: 01-03-2022 Nursing evaluation o f patient and report Liza Canas RN Hematology/Oncology Comment on above: Examination of parti cipant in clinical trial (Primary Dx) Start: 01-03-2022 End: 01-04-2022 Patient encounter procedure Liza Canas RN Hematology/Oncology Comment on above: Bone metastases (HCC ) (Primary Dx); Encounter for antineoplastic chemotherapy and immunotherapy; Examination of participant in clinical trial; Malignant neoplasm of unspecified part of unspecified bronchus or lung (HCC); Nausea Start: 12-26-2021 End: 12-26-2021 Office outpatient visit 25 minutes Fiona Durant MD Work Phone: Internal Medicine [facility] Comment on above: Cough (Primary Dx); COPD with asthma (HCC); Cigarette smoker; 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); Hypokalemia Start: 12-13-2021 Patient encounter procedure Liza Canas RN [facility] Work Phone: Start: 11-18-2021 End: 11-18-2021 Subsequent hospital visit by physician Ct Prep [facility] Cat Scan Comment on above: Canceled (Pt cx: Tala nge in Condition, Sick) Procedures Date Procedure Procedure Detail Performing Clinician Start: 04-03-2025 Gen seq analys nilda org/hemtolmphoid libby 51/> gen Sandoval Burgess MD Work Phone: Start: 03-20-2025 Ecg routine ecg w/le ast 12 lds i&r only Edith Willis MD Work Phone: Start: 03-09-2025 Gluc bld gluc mntr d ev cleared fda spec home use [facility] Provider Start: 02-04-2025 Lipid 1996 panel - S jay or Plasma Treatment Wstr Work Phone: Start: 11-19-2024 Ct angiography chest w/contrast/noncontrast Sandoval Burgess MD Work Phone: Start: 11-19-2024 Radiologic exam ches t 2 views Sandoval Burgess MD Work Phone: Start: 09-15-2024 Gluc bld gluc mntr d ev cleared fda spec home use [facility] Provider Start: 09-08-2024 Adult depression screening assessment Georgina Morgan MD Work Phone: Start: 05-05-2024 Gluc bld gluc mntr d ev cleared fda spec home use [facility] Provider Start: 04-17-2024 Blood count complete auto&auto difrntl wbc Sandoval Burgess MD Work Phone: Start: 11-12-[address] attenuation skull base mid-thigh Sandoval Burgess MD Work Phone: Start: 08-10-2023 Ct abdomen & pelvis w/contrast material Sandoval Burgess MD Work Phone: Start: 08-10-2023 Ct thorax w/contrast material Sandoval Burgess MD Work Phone: Start: 08-01-2023 STREP A MOLECULAR (POC) Isabel Campuzano PA-C Work Phone: Start: 03-19-2023 Brncdilat rspse spmt ry pre&post-brncdilat admn Georgina Morgan MD Work Phone: Start: 03-16-2023 Us soft tissue head & neck real time imge docm Telly Duncan DO Work Phone: Start: 02-09-2023 Ct abdomen & pelvis w/contrast material Carrie Preciado CREDIT AND LOAN COLLECTIONS SUPERVISOR.CHANGE MANAGEMENT DIRECTOR Work Phone: Start: 02-09-2023 Ct thorax w/contrast material Carrie Preciado CREDIT AND LOAN COLLECTIONS SUPERVISOR.CHANGE MANAGEMENT DIRECTOR Work Phone: Start: 11-13-2022 Ct abdomen & pelvis w/contrast material Anca Huddleston MD Work Phone: Start: 11-13-2022 Ct thorax w/contrast material Telly A Masci DO Work Phone: Start: 08-10-2022 Ct abdomen w/contras t material Anca Huddleston MD Work Phone: Start: 08-10-2022 Ct thorax w/contrast material Anca Huddleston MD Work Phone: Start: 07-19-2022 INFLUENZA VACCINE QUADRIVALENT 6 MO - 64 YRS IM Fiona Durant MD Work Phone: Start: 05-24-2022 Ct abdomen w/contras t material Anca Huddleston MD Work Phone: Start: 05-05-2022 Ct thorax w/contrast material Anca Huddleston MD Work Phone: Start: 02-10-2022 Ct abdomen w/contras t material Anca Huddleston MD Work Phone: Start: 02-10-2022 Ct thorax w/contrast material Anca Huddleston MD Work Phone: Start: 12-15-2021 Lipid 1996 panel - S jay or Plasma Ann Slade PA-C Work Phone: Start: 06-27-2021 Adult depression screening assessment Liza Canas RN Start: 06-28-2020 History of placement of stent for coronary artery disease S/P coronary artery stent placement Liza Cansa RN Start: 08-11-2016 Mammography Liza dominguez RN Start: 11-21-2012 Colonoscopy Liza dominguez RN Plan of Treatment Date Care Activity Detail Author Start: 02-04-2030 Lipid panel Lipid Screening [facility] Start: 04-08-2028 Diabetes Screening Diabetes Screenin [facility] Start: 03-18-2028 Diabetes Screening Diabetes Screenin [facility] Start: 02-25-2028 Diabetes Screening Diabetes Screenin g [facility] Start: 02-05-2028 Diabetes Screening Diabetes Screenin g [facility] Start: 01-14-2028 Diabetes Screening Diabetes Screenin g [facility] Start: 12-25-2027 Diabetes Screening Diabetes Screenin g [facility] Start: 12-04-2027 Diabetes Screening Diabetes Screenin g [facility] Start: 11-19-2027 Diabetes Screening Diabetes Screenin g [facility] Start: 10-30-2027 Diabetes Screening Diabetes Screenin g [facility] Start: 10-23-2027 Diabetes Screening Diabetes Screenin g [facility] Start: 09-30-2027 Diabetes Screening Diabetes Screenin g [facility] Start: 08-19-2027 Diabetes Screening Diabetes Screenin g [facility] Start: 07-08-2027 Diabetes Screening Diabetes Screenin g [facility] Start: 05-29-2027 Diabetes Screening Diabetes Screenin g [facility] Start: 05-27-2027 Diabetes Screening Diabetes Screenin g [facility] Start: 04-17-2027 Diabetes Screening Diabetes Screenin g [facility] Start: 04-15-2027 Diabetes Screening Diabetes Screenin g [facility] Start: 03-05-2027 Diabetes Screening Diabetes Screenin g [facility] Start: 01-22-2027 Diabetes Screening Diabetes Screenin g [facility] Start: 12-15-2026 Lipid 1996 panel - Serum or Plasma Lipid Screening [facility] Start: 12-15-2026 Lipid panel Lipid Screening [facility] Start: 12-15-2026 LIPID SCREEN LIPID SCREEN [facility] Start: 12-11-2026 Diabetes Screening Diabetes Screenin g [facility] Start: 10-31-2026 Diabetes Screening Diabetes Screenin g [facility] Start: 08-07-2026 Diabetes Screening Diabetes Screenin g [facility] Start: 06-26-2026 Diabetes Screening Diabetes Screenin g [facility] Start: 04-03-2026 DIABETES SCREEN DIABETES SCREEN [facility] Start: 04-03-2026 Diabetes Screening Diabetes Screenin g [facility] Start: 03-22-2026 End: 03-22-2026 Patient encounter procedure 03/22/2026 3:40 PM EDT Office Visit [facility] [address] [place] [address] Fiona Durant MD [address] [address] 3 month follow up [facility] Comment on above: 3 month follow up Start: 03-02-2026 End: 03-02-2026 Patient encounter procedure 03/02/2026 12:45 PM EDT Office Visit [facility] Ophthalmology [address] [place] [address] Salvador David, OD [address] [place] [address] 1 month f/u to address chemo/ and Ambrovich Ophthalmology Comment on above: 1 month f/u to addre ss chemo/ and Ambrovich Start: 02-25-2026 Annual PCP Team Vice President And Portfolio Manager liborio Disease Visit Annual PCP Team Chronic Disease Visit [facility] Start: 02-20-2026 DIABETES SCREEN DIABETES SCREEN [facility] Start: 02-04-2026 Hepatitis B surface antibody level LDL Cholesterol [facility] Start: 01-09-2026 DIABETES SCREEN DIABETES SCREEN [facility] Start: 12-21-2025 End: 12-21-2025 Patient encounter procedure 12/21/2025 4:20 PM EDT Office Visit [facility] [address] [place] [address] Fiona Durant MD [address] [place] [address] 3 month follow up [facility] Comment on above: 3 month follow up Start: 12-01-2025 Annual PCP Team Vice President And Portfolio Manager liborio Disease Visit Annual PCP Team Chronic Disease Visit [facility] Start: 11-24-2025 DIABETES SCREEN DIABETES SCREEN [facility] Start: 10-17-2025 DIABETES SCREEN DIABETES SCREEN [facility] Start: 09-26-2025 DIABETES SCREEN DIABETES SCREEN [facility] Start: 09-09-2025 End: 09-09-2025 Patient encounter procedure 09/09/2025 4:00 PM EST Office Visit Internal Medicine [facility] [address] [facility], [place] [address] Fiona Durant MD [address] [place], [place] [id number] 3 month follow up [facility] Comment on above: 3 month follow up Start: 09-08-2025 Annual PCP Team Vice President And Portfolio Manager liborio Disease Visit Annual PCP Team Chronic Disease Visit [facility] Start: 09-08-2025 Anxiety Screening Anxiety Screening [facility] Start: 09-08-2025 Depression Screening Depression Scre ening [facility] Start: 09-04-2025 DIABETES SCREEN DIABETES SCREEN [facility] Start: 08-14-2025 DIABETES SCREEN DIABETES SCREEN [facility] Start: 07-24-2025 DIABETES SCREEN DIABETES SCREEN [facility] Start: 07-03-2025 DIABETES SCREEN DIABETES SCREEN [facility] Start: 06-23-2025 End: 06-23-2025 Patient encounter procedure 06/23/2025 1:30 PM EDT Office Visit Pulmonary Medicine [address] [place] [address] Chyna Ellison APRN.CHANGE MANAGEMENT DIRECTOR [address] [place] [address] 3 MTH F/U Pulmonary Medicine Comment on above: 3 MTH F/U Start: 06-17-2025 End: 06-17-2025 ambulatory [facility] Comment on above: CBC D15 CARBO/ABRAXANE/L AB EARLY* D15 ABRAXANE/LAB EAR LY* Start: 06-16-2025 End: 06-16-2025 Patient encounter procedure 06/16/2025 1:00 PM EDT Office Visit [facility] [address] [place] [address] Fiona Durant MD [address] [place] [address] 3 month follow up [facility] Comment on above: 3 month follow up Start: 06-10-2025 End: 06-10-2025 ambulatory [facility] Comment on above: CBC D8 CARBO/ABRAXANE/LA B EARLY* D8 ABRAXANE/LAB BILL Y* Start: 06-09-2025 DIABETES SCREEN DIABETES SCREEN [facility] Start: 06-08-2025 Influenza vaccination Influenza Vacc ine (#1) [facility] Start: 06-06-2025 Annual PCP Team Vice President And Portfolio Manager liborio Disease Visit Annual PCP Team Chronic Disease Visit [facility] Start: 06-05-2025 End: 06-05-2025 Patient encounter procedure 06/05/2025 3:20 PM EDT Office Visit [facility] Medicine [facility] [address] [facility] [place] [address] Fiona Durant MD [address] [place] [address] 3 month follow up [facility] Comment on above: 3 month follow up Start: 06-03-2025 End: 06-03-2025 ambulatory Hematology/Oncology Comment on above: Q3WK CARBO/ABRAXANE/ LAB&OV 06/02* Q3WK ABRAXANE/LAB&OV 06/02* Start: 06-02-2025 End: 06-02-2025 ambulatory [facility] Comment on above: (SO)CBC/CMP(S)* OV/EARLY LABS/CHEMO 06/03* Start: 05-27-2025 End: 05-27-2025 ambulatory Hematology/Oncology Comment on above: Q3WK D15 CARBO/ABRAX ANEPROVE* (SO)CBC/CMP(S)* D15 CARBO/ABRAXANE/L AB EARLY* D15 ABRAXANE/LAB EAR LY* Start: 05-23-2025 DIABETES SCREEN DIABETES SCREEN [facility] Start: 05-21-2025 End: 05-21-2025 ambulatory 05/21/2025 1:30 PM EDT Infusion Center Hematology/Oncology [address] [place] [address] Q3WK ALIMTA/LAB&OV 05/20* 1:30 APPTS WITH LABS DAY PRIOR / SAME DAY LABS 1230, TREATMENT 1:00 Hematology/Oncology Comment on above: Q3WK ALIMTA/LAB&OV * 1:30 APPTS WITH LABS DAY PRIOR / SAME DAY LABS 1230, TREATMENT 1:00 Start: 05-20-2025 End: 05-20-2025 ambulatory Hematology/Oncology Comment on above: Q3WK D8 CARBO/ABRAXA NEPROVE* D8 CARBO/ABRAXANE/LA B EARLY* D8 ABRAXANE/LAB BILL Y* Start: 05-20-2025 End: 05-20-2025 ambulatory [facility] Comment on above: (SO)CBC/CMP(S)* OV/EARLY LABS/CHEMO 05/21* ABRAMOVICH/ 1:00 APPTS OR LATER Start: 05-13-2025 End: 05-13-2025 ambulatory Hematology/Oncology Comment on above: Q3WK D1 CARBO/ABRAXA NE/LAB&OV 05/12* Q3WK D1 ABRAXANE/LAB &OV 05/12* Start: 05-12-2025 End: 05-12-2025 ambulatory Hematology/Oncology Comment on above: Q3WK D1 CARBO/ABRAXA NEPROVE* (SO)CBC/CMP(S)* OV/EARLY LABS/CHEMO 05/13* Start: 05-08-2025 DIABETES SCREEN DIABETES SCREEN [facility] Start: 05-06-2025 End: 05-06-2025 ambulatory 05/06/2025 1:20 PM EDT Visit (SP) Office Hematology/Oncology [address] [place] [address] Telly Duncan DO [address] [place] [address] (SO)CBC/CMP(S)OV/CHEMO TODAY/TRANSFER CARE* Hematology/Oncology Comment on above: (SO)CBC/CMP(S)OV/ORA MO TODAY/TRANSFER CARE* Start: 05-06-2025 End: 05-06-2025 ambulatory [facility] Comment on above: (SO)CBC/CMP(S)* Q3WK D15 CARBO/ABRAX ANEPROVE* D15 CARBO/ABRAXANEPR OVE/LAB EARLY* D15 CARBO/ABRAXANE/O V&LAB EARLY* D15 ABRAXANE/OV&LAB EARLY* Start: 04-30-2025 End: 04-30-2025 ambulatory 04/30/2025 1:30 PM EDT Infusion Center Hematology/Oncology [address] [facility] [place], [place] [id number] Q3WK ALIMTA/LAB&OV 04/29* 1:30 APPTS WITH LABS DAY PRIOR / SAME DAY LABS 1230, TREATMENT 1:00 Hematology/Oncology Comment on above: Q3WK ALIMTA/LAB&OV * 1:30 APPTS WITH LABS DAY PRIOR / SAME DAY LABS 1230, TREATMENT 1:00 Start: 04-29-2025 End: 04-29-2025 ambulatory [facility] Comment on above: (SO)CBC/CMP(S)* OV/EARLY LABS/CHEMO 04/30* ABRAMOVICH/ 1:00 APPTS OR LATER Q3WK D8 CARBO/ABRAXA NEPROVE* D8 CARBO/ABRAXANEPRO VE/LAB EARLY* D8 CARBO/ABRAXANE/LA B EARLY* D8 ABRAXANE/LAB BILL Y* Start: 04-24-2025 End: 04-24-2025 Patient encounter procedure 04/24/2025 2:15 PM EDT Office Visit Pulmonary Medicine [address], [place] [id number] Georgina Morgan MD [address] [place], [place] [id number] Productive cough Pulmonary Medicine Comment on above: Productive cough Start: 04-22-2025 End: 04-22-2025 ambulatory [facility] Comment on above: (SO)CBC/CMP(S)* START Q3WK D1 CARBO/ ABRAXANEPROVE* STRAIGHTBACK STRAIGHTBACK START Q 3WK CARBO/ABRAXANEPROVE/LAB EARLY* START Q3WK CARBO/ABR AXANE/LAB EARLY* START Q3WK ABRAXANE/ LAB EARLY* Start: 04-17-2025 DIABETES SCREEN DIABETES SCREEN [facility] Start: 04-15-2025 End: 04-15-2025 ambulatory Hematology/Oncology Comment on above: CHEMO ED-Carbo/Abrax aneprove CHEMO ED-Carbo/Abrax ane* Start: 04-09-2025 End: 04-09-2025 ambulatory Hematology/Oncology Comment on above: Q3WK CARBO/ALIMTA/LA B&OV 72* 1:30 APPTS WITH LABS DAY PRIOR / SAME DAY LABS 1230, TREATMENT 1:00 Q3WK ALIMTA/LAB&OV 7 2* 1:30 APPTS WITH LABS DAY PRIOR / SAME DAY LABS 1230, TREATMENT 1:00 Start: 04-08-2025 End: 04-08-2025 ambulatory [facility] Laboratory Comment on above: (SO)CBC/CMP(S)* OV/EARLY LABS/CHEMO 04/09* 1:00 APPTS OR LATER abramovich Start: 03-31-2025 End: 03-31-2025 Admission to same day surgery center 03/31/2025 12:00 PM EDT - 03/31/2025 1:00 PM EDT Surgery Admitting [address] [id number] Faisal Mcintosh MD [address] [place] [address] BRONCHOSCOPY FLEXIBLE ADULT Admitting Comment on above: BRONCHOSCOPY FLEXIBL E ADULT Start: 03-31-2025 End: 03-31-[address] [facility] incl fluor gdnce dx w/cell washg spx BRONCHOSCOPY FLEXIBLE ADULT Bronchiolar disease 03/31/2025 12:00 PM EDT PULM LAB H23 Start: 03-31-2025 Subsequent hospital visit by physician 03/31/2025 12:00 PM EDT Hospital Encounter Admitting [address] [id number] Faisal Mcintosh MD [address] [place] [address] Bronchiolar disease [J98.09] Admitting Comment on above: Bronchiolar disease [J98.09] Start: 03-30-2025 End: 03-30-2025 Patient encounter procedure 03/30/2025 12:45 PM EDT Office Visit [facility] Ophthalmology [address] [place], [place] [id number] Salvador David, OD [address] [place] [address] 1 month f/u to address chemo/ and Ambrovich Ophthalmology Comment on above: 1 month f/u to addre ss chemo/ and Ambrovich Start: 03-28-2025 DIABETES SCREEN DIABETES SCREEN [facility] Start: 03-20-2025 End: 03-20-2025 Patient encounter procedure 03/20/2025 10:00 AM EDT Office Visit Pulmonary Medicine [address] [place] [address] Georgina Morgan MD [address] [place], [place] [address] 6 month f/u Pulmonary Medicine Comment on above: 6 month f/u Start: 03-19-2025 End: 03-19-2025 ambulatory Hematology/Oncology Comment on above: Q3WK CARBO/ALIMTA/LA B&OV 03/18/ EXP?* 1:30 APPTS WITH LABS DAY PRIOR / SAME DAY LABS 1230, TREATMENT 1:00 Q3WK CARBO/ALIMTA/LA B&OV 03/18* 1:30 APPTS WITH LABS DAY PRIOR / SAME DAY LABS 1230, TREATMENT 1:00 Q3WK ALIMTA/LAB&OV * 1:30 APPTS WITH LABS DAY PRIOR / SAME DAY LABS 1230, TREATMENT 1:00 Start: 03-18-2025 End: 03-18-2025 ambulatory [facility] Comment on above: (SO)CBC/CMP(S)* OV/EARLY LABS/CHEMO 03/19* 1:00 APPTS OR LATER abramovich Start: 03-09-2025 End: 03-09-2025 Patient encounter procedure 03/09/2025 2:40 PM EDT Office Visit Internal Medicine [facility] [address] [place] [address] Fiona Durant MD [address] [place], [place] [id number] 3 month follow up [facility] Medicine [facility] Comment on above: 3 month follow up Start: 03-09-2025 End: 03-09-2025 Patient encounter procedure Mobile PET CT Comment on above: 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) [C34.90, C79.51] Start: 03-03-2025 DIABETES SCREEN DIABETES SCREEN [facility] Start: 02-27-2025 End: 02-27-2025 Patient encounter procedure 02/27/2025 2:15 PM EDT Office Visit [facility] Ophthalmology [address] [place] [address] Salvador David, OD [address] [place] [address] light flashing in eyes about 5 times a week Ophthalmology Comment on above: light flashing in ey es about 5 times a week Start: 02-26-2025 End: 02-26-2025 ambulatory 02/26/2025 1:30 PM EDT Infusion Center Hematology/Oncology [address] [place] [address] Q3WK CARBO/ALIMTA/LAB&OV 02/24/AUTH EXP?* 1:30 APPTS WITH LABS DAY PRIOR / SAME DAY LABS 1230, TREATMENT 1:00 Hematology/Oncology Comment on above: Q3WK CARBO/ALIMTA/LA B&OV 02/24/AUTH EXP?* 1:30 APPTS WITH LABS DAY PRIOR / SAME DAY LABS 1230, TREATMENT 1:00 Start: 02-25-2025 End: 02-25-2025 Patient encounter procedure 02/25/2025 10:40 AM EDT Office Visit Internal Medicine [facility] [address] [facility] [place] [address] Fiona Durant MD [address] [place] [address] 3 month follow up Internal Medicine [facility] Comment on above: 3 month follow up Start: 02-24-2025 End: 02-24-2025 ambulatory [facility] Comment on above: (SO)CBC/CMP(S)* OV/EARLY LABS/CHEMO 02/26* 1:00 APPTS OR LATER aditya Start: 02-19-2025 Annual PCP Team Vice President And Portfolio Manager liborio Disease Visit Annual PCP Team Chronic Disease Visit [facility] Start: 02-13-2025 DIABETES SCREEN DIABETES SCREEN [facility] Start: 02-05-2025 End: 02-05-2025 ambulatory Hematology/Oncology Comment on above: Q3WK CARBO/ALIMTA/LA B&OV 01/13/AUTH EXP?* 1:30 APPTS WITH LABS DAY PRIOR / SAME DAY LABS 1230, TREATMENT 1:00 Q3WK CARBO/ALIMTA/LA B&OV 02/04/AUTH EXP?* 1:30 APPTS WITH LABS DAY PRIOR / SAME DAY LABS 1230, TREATMENT 1:00 Q3WK ALIMTA/LAB&OV /AUTH EXP?* 1:30 APPTS WITH LABS DAY PRIOR / SAME DAY LABS 1230, TREATMENT 1:00 Start: 02-04-2025 End: 02-04-2025 ambulatory [facility] Comment on above: (SO)CBC/CMP(S)* OV/EARLY LABS/CHEMO 02/05* 1:00 APPTS OR LATER lorna Start: 01-24-2025 DIABETES SCREEN DIABETES SCREEN [facility] Start: 01-22-2025 End: 01-22-2025 ambulatory 01/22/2025 9:00 AM EDT Infusion Center Hematology/Oncology [address] [place] [address] Q3WK CARBO/ALIMTA/LAB&OV 01/20/AUTH EXP?* Hematology/Oncology Comment on above: Q3WK CARBO/ALIMTA/LA B&OV AUTH EXP?* Start: 01-20-2025 End: 01-20-2025 ambulatory [facility] Comment on above: (SO)CBC/CMP(S)* OV/EARLY LABS/CHEMO 01/22* Start: 01-14-2025 End: 01-14-2025 ambulatory 01/14/2025 1:00 PM EDT Infusion Center Hematology/Oncology [address] [place] [address] Q3WK CARBO/ALIMTA/LAB&OV 01/13/AUTH EXP?* 1:30 APPTS WITH LABS DAY PRIOR / SAME DAY LABS 1230, TREATMENT 1:00 Hematology/Oncology Comment on above: Q3WK CARBO/ALIMTA/LA B&OV 01/13/AUTH EXP?* 1:30 APPTS WITH LABS DAY PRIOR / SAME DAY LABS 1230, TREATMENT 1:00 Start: 01-13-2025 End: 01-13-2025 ambulatory [facility] Comment on above: (SO)CBC/CMP(S)* OV/EARLY LABS/CHEMO 01/14* 1:00 APPTS OR LATER aditya Start: 01-08-2025 End: 01-08-2025 ambulatory Hematology/Oncology Comment on above: Q3WK CARBO/ALIMTA/AU TH EXP?/LAB&OV 01/14* Q3WK CARBO/ALIMTA/AU TH EXP?/LAB&OV 01/07* Start: 01-07-2025 End: 01-07-2025 ambulatory [facility] Comment on above: (SO)CBC/CMP(S)* OV/EARLY LABS/CHEMO 01/15* OV/EARLY LABS/CHEMO 01/08* Start: 01-03-2025 DIABETES SCREEN DIABETES SCREEN [facility] Start: 01-01-2025 End: 01-01-2025 ambulatory 01/01/2025 9:00 AM EDT Infusion Center Hematology/Oncology [address] [place] [address] Q3WK CARBO/ALIMTA/LAB&OV 12/31/AUTH EXP?* Hematology/Oncology Comment on above: Q3WK CARBO/ALIMTA/LA B&OV 12/31/AUTH EXP?* Start: 12-31-2024 End: 12-31-2024 ambulatory [facility] Comment on above: (SO)CBC/CMP(S)* OV/EARLY LABS/CHEMO 01/01* Start: 12-25-2024 End: 12-25-2024 ambulatory 12/25/2024 3:30 PM EDT Infusion Center Hematology/Oncology [address] [place] [address] Q6WK KEYTRUDA/Q3MO ZOMETA/LAB&OV 12/25/AUTH EXP ?* Q3MO ZOMETA DUE 03/19 Hematology/Oncology Comment on above: Q6WK KEYTRUDA/Q3MO Z OMETA/LAB&OV AUTH EXP ?* Q3MO ZOMETA DUE 03/19 Start: 12-25-2024 End: 12-25-2024 ambulatory Hematology/Oncology Comment on above: Q3WK CARBO/ALIMTA/LA B&OV 12/24/AUTH EXP?* 1:30 APPTS WITH LABS DAY PRIOR / SAME DAY LABS 1230, TREATMENT 1:00 Q3WK ALIMTA/LAB&OV /AUTH EXP?* 1:30 APPTS WITH LABS DAY PRIOR / SAME DAY LABS 1230, TREATMENT 1:00 Start: 12-24-2024 End: 12-24-2024 ambulatory [facility] Comment on above: (SO)CBC/CMP(S)* OV/EARLY LABS/CHEMO 12/25* 1:00 APPTS OR LATER Start: 12-23-2024 End: 12-23-2024 ambulatory [facility] Comment on above: (SO)CBC/CMP/TSH/T4/C ORTISOL* OV/LAB EARLY/CHEMO * ADITYA Start: 12-18-2024 End: 12-18-2024 ambulatory Hematology/Oncology Comment on above: Q3WK CARBO/ALIMTA/AU TH EXP?/LAB&OV 01/14* Q3WK CARBO/ALIMTA/AU TH EXP?/LAB&OV 12/17* Start: 12-17-2024 End: 12-17-2024 ambulatory [facility] Comment on above: (SO)CBC/CMP(S)* OV/EARLY LABS/CHEMO 12/18* Start: 12-11-2024 End: 12-11-2024 ambulatory Hematology/Oncology Comment on above: Q3WK CARBO/ALIMTA/AU TH EXP?* Q3WK CARBO/ALIMTA/AU TH EXP?/LAB&OV 12/10* Start: 12-10-2024 End: 12-10-2024 ambulatory [facility] Comment on above: (SO)CBC(S)/(SO)CMP(S )* OV/EARLY LABS/CHEMO 11/20* OV/EARLY LABS/CHEMO 12/11* (SO)CBC/CMP(S)* Start: 12-04-2024 End: 12-04-2024 ambulatory [facility] Comment on above: (SO)CBC/CMP(S)* (SO)/CBC/CMP(S)/Q3WK CARBO/ALIMTA/AUTH EXP?* 1:00 APPTS OR LATER / SAME DAY LABS 1230, TREATMENT 1-DELAYED PER PT-SEE TE Start: 12-01-2024 End: 12-01-2024 Patient encounter procedure 12/01/2024 4:40 PM EST Office Visit [facility] [address] [facility] [place] [address] Fiona Durant MD [address] [place] [address] 3 mo follow up [facility] Comment on above: 3 mo follow up Start: 11-28-2024 Annual PCP Team Vice President And Portfolio Manager liborio Disease Visit Annual PCP Team Chronic Disease Visit [facility] Start: 11-27-2024 End: 11-27-2024 ambulatory [facility] Comment on above: (SO)CBC/CMP(S)* (SO)/cbc/cmp(s)/Q3WK CARBO/ALIMTA/AUTH EXP?* Start: 11-20-2024 End: 11-20-2024 ambulatory Hematology/Oncology Comment on above: Q3WK CARBO/ALIMTA/AU TH EXP?* Q3WK CARBO/ALIMTA/AU TH EXP?/LAB&OV 11/19* Start: 11-19-2024 End: 11-19-2024 ambulatory [facility] Comment on above: (SO)CBC(S)/(SO)CMP(S )* OV/EARLY LABS/CHEMO 11/20* (SO)CBC/CMP(S)* Start: 11-13-2024 End: 11-13-2024 ambulatory 11/13/2024 3:30 PM EST [facility] Center Hematology/Oncology [address] [place] [address] Q6WK KEYTRUDA/Q3MO ZOMETA/LAB&OV 11/11/AUTH EXP ?* Q3MO ZOMETA DUE 12/25 Hematology/Oncology Comment on above: Q6WK KEYTRUDA/Q3MO Z OMETA/LAB&OV 11/11/AUTH EXP ?* Q3MO ZOMETA DUE 12/25 Start: 11-11-2024 End: 11-11-2024 ambulatory [facility] [place] [facility] Laboratory Comment on above: (SO)CBC/CMP(S)/TSH/T 4/CORTISOL OV/LAB EARLY/CHEMO * ADITYA (SO)CBC/CMP/TSH/T4/C ORTISOL* Start: 11-09-2024 Hepatitis B surface antibody level LDL Cholesterol [facility] Comment on above: Postponed from 12/15 (Declined at this time) Start: 10-30-2024 End: 10-30-2024 ambulatory [facility] [place] [facility] Laboratory Comment on above: (SO)CBC(S)/(SO)CMP(S )* START Q3WK CARBO/ALI MTA/AUTH EXP?* Start: 10-27-2024 End: 10-27-2024 ambulatory 10/27/2024 10:30 AM EST Infusion Center Hematology/Oncology [address] [place] [address] Wstr, Health Coach [facility] [address] [place] [address] CHEMO EDUCATION-CARBO/ALIMTA* Hematology/Oncology Comment on above: CHEMO EDUCATION-CARB O/ALIMTA* Start: 10-23-2024 End: 10-23-2024 ambulatory 10/23/2024 12:00 PM EST Visit (SP) Office Hematology/Oncology [address] [place] [address] [place] [address] [place] [address] OV/DISCUSS OPTIONS/GUARDANT RESULTS* Hematology/Oncology Comment on above: OV/DISCUSS OPTIONS/G UARDANT RESULTS* Start: 10-23-2024 End: 10-23-2024 Patient encounter procedure 10/23/2024 11:30 AM EST Results Only [facility] [place] [facility] BY [facility] Laboratory [address] [place] [address] CLINICAL TRIAL DRAW - LIZA TO PROVIDE TUBES* [facility] Comment on above: CLINICAL TRIAL DRAW - LIZA TO PROVIDE TUBES* Start: 10-02-2024 End: 10-02-2024 ambulatory Hematology/Oncology Comment on above: Q6WK KEYTRUDA/Q3MO Z OMETA/LAB&OV 09/30/ EXP 10/07/24* Q3MO ZOMETA DUE 12/25 LABS* Start: 09-30-2024 End: 09-30-2024 ambulatory [facility] Comment on above: LAB* (SO)CBC/CMP(S)/TSH/T 4/CORTISOL/OV/CHEMO 10/02* LORNAH (SO)CBC/CMP(S)/TSH/T 4/CORTISOL OV/LAB EARLY/PET 09/15/CHEMO 10/02* LORNAH Start: 09-15-2024 End: 09-15-2024 Patient encounter procedure Mobile PET CT Comment on above: Malignant neoplasm o f unspecified part of unspecified bronchus or lung (HCC) [C3... Start: 09-11-2024 End: 09-11-2024 Patient encounter procedure 09/11/2024 12:45 PM EST Office Visit Pulmonary Medicine [address] [place] [address] Georgina Morgan MD [address] [place] [address] Emphysema Pulmonary Medicine Comment on above: Emphysema Start: 09-08-2024 End: 09-08-2024 Patient encounter procedure 09/08/2024 2:40 PM EST Office Visit Internal [facility] [place] [address] [place] [address] Fiona Durant MD [address] [place] [address] 3 mo follow up [facility] Comment on above: 3 mo follow up Start: 08-21-2024 End: 08-21-2024 ambulatory 08/21/2024 3:30 PM EST Infusion Center Hematology/Oncology [address] [place] [address] Q6WK KEYTRUDA/LAB&OV EXP 10/07/24* Q3MO ZOMETA DUE 10/02 Hematology/Oncology Comment on above: Q6WK KEYTRUDA/LAB&OV AUTH EXP 10/07/24* Q3MO ZOMETA DUE 10/02 Start: 08-19-2024 End: 08-19-2024 ambulatory [facility] Comment on above: LAB* (SO)CBC/CMP(S)/TSH/T 4/CORTISOL/OV/CHEMO 08/21* ADITYA Start: 08-15-2024 Annual PCP Team Vice President And Portfolio Manager liborio Disease Visit Annual PCP Team Chronic Disease Visit [facility] Start: 08-15-2024 Shingrix Vaccine (1 of 2) Shingrix Vaccine (1 of 2) [facility] Comment on above: Postponed from 11/08 (Declined at this time) Start: 08-15-2024 Urine microalbumin profile DTaP,Tdap,Td Vaccine (2 - Td or Tdap) [facility] Comment on above: Postponed from 12/25 (Declined at this time) Start: 07-10-2024 End: 07-10-2024 ambulatory 07/10/2024 3:00 PM EDT [facility] Hematology/Oncology [address] [place] [facility] [place] [address] Q6WK KEYTRUDA/Q3MO ZOMETA/LAB&OV AUTH EXP 10/07/24* Q3MO ZOMETA DUE 10/02 Hematology/Oncology Comment on above: Q6WK KEYTRUDA/Q3MO Z OMETA/LAB&OV AUTH EXP 10/07/24* Q3MO ZOMETA DUE 10/02 Start: 07-08-2024 End: 07-08-2024 ambulatory [facility] Comment on above: LAB* (SO)CBC/CMP(S)/TSH/T 4/CORTISOL/OV/CHEMO 07/10* ADITYA Start: 06-08-2024 Influenza vaccination Influenza Vacc ine (#1) [facility] Start: 06-06-2024 End: 06-06-2024 Patient encounter procedure 06/06/2024 4:40 PM EDT Office Visit [facility] [address] [facility] [place] [address] Fiona Durant MD [address] [place] [address] 3 month follow up [facility] [place] Comment on above: 3 month follow up Start: 06-06-2024 End: 09-05-2024 Hemoglobin A1c in Blood HEMOGLOBIN A1C Lab Routine Elevated glucose Expected: 06/06/2024, Expires: 09/05/2024 [facility] Work Phone: Comment on above: Expected: 06/06/2024 , Expires: 09/05/2024 Start: 05-29-2024 End: 08-28-2024 Comprehensive metabolic 2000 panel - Serum or Plasma COMPREHENSIVE METABOLIC PANEL Lab STAT 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) Malignant neoplasm metastatic to bone (HCC) Expected: 05/29/2024, Expires: 08/28/2024 [facility] Work Phone: Comment on above: Expected: 05/29/2024 , Expires: 08/28/2024 Start: 05-29-2024 End: 08-28-2024 Magnesium [Mass/volume] in Serum or Plasma MAGNESIUM Lab STAT 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) Malignant neoplasm metastatic to bone (HCC) Expected: 05/29/2024, Expires: 08/28/2024 [facility] Comment on above: Expected: 05/29/2024 , Expires: 08/28/2024 Start: 05-29-2024 End: 05-29-2024 ambulatory Hematology/Oncology Comment on above: Q6WK KEYTRUDA/LAB&OV EXP 10/07/24* Q3MO ZOMETA DUE 07/10 CBC/MAG* CMP(S)/MG(S)* LAB EARLY/Q6WK KEYTR UDA/LAB&OV EXP 10/07/24* Start: 05-27-2024 End: 05-27-2024 ambulatory [facility] Comment on above: LAB* (SO)CBC/CMP(S)/TSH/T 4/CORTISOL/OV/CHEMO 05/29*() Start: 05-22-2024 ANNUAL PCP TEAM LEAD APPLIER LIBORIO DISEASE VISIT ANNUAL PCP TEAM CHRONIC DISEASE VISIT [facility] Start: 05-22-2024 COLORECTAL CANCER SCREENING COLORECTAL CANCER SCREENING [facility] Comment on above: Postponed from 11/08 (Declined at this time) Start: 05-22-2024 PNEUMOCOCCAL (2 - PCV) PNEUMOCOCCAL (2 - PCV) [facility] Comment on above: Postponed from 08/29 (Declined at this time) Start: 05-22-2024 Pneumococcal vaccination [facility] Comment on above: Postponed from 08/29 (Declined at this time) Start: 05-22-2024 Screening for malign ant neoplasm of colon Colorectal Cancer Screening [facility] Comment on above: Postponed from 11/08 (Declined at this time) Start: 05-22-2024 Zoledronic acid therapy ALPHA- 1 ANTITRYPSIN DEFICIENCY SCREENING [facility] Comment on above: Postponed from 11/08 (Declined at this time) Start: 05-05-2024 End: 05-05-2024 Patient encounter procedure Mobile PET CT Comment on above: 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) [C34.90, C79.51] Start: 04-17-2024 End: 04-17-2024 ambulatory Hematology/Oncology Comment on above: Q6WK KEYTRUDA/LAB&OV 04/15/AUTH EXP 10/07/24* Q3MO ZOMETA DUE 04/17 Q6WK KEYTRUDA/Q3MO Z OMETA/LAB&OV 04/15/AUTH EXP 10/07/24* Start: 04-15-2024 End: 04-15-2024 ambulatory [facility] Laboratory Comment on above: LAB* (SO)CBC/CMP(S)/TSH/T 4/CORTISOL/OV/CHEMO 04/17* Start: 03-06-2024 End: 06-05-2024 Comprehensive metabolic 2000 panel - Serum or Plasma COMPREHENSIVE METABOLIC PANEL Lab Routine 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) Expected: 03/06/2024, Expires: 06/05/2024 [facility] Work Phone: Comment on above: Expected: 03/06/2024 , Expires: 06/05/2024 Start: 03-06-2024 End: 06-05-2024 Thyrotropin [Units/volume] in Serum or Plasma THYROID STIMULATING HORMONE Lab Routine 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) Expected: 03/06/2024, Expires: 06/05/2024 [facility] Comment on above: Expected: 03/06/2024 , Expires: 06/05/2024 Start: 03-06-2024 End: 03-06-2024 ambulatory Hematology/Oncology Comment on above: Q6WK KEYTRUDA/Q3MO Z OMETA/LAB&OV EXP 10/07/24* Q3MO ZOMETA DUE 04/17 Q6WK KEYTRUDA/LAB&OV EXP 10/07/24* Q3MO ZOMETA DUE 04/17 Start: 03-05-2024 End: 03-05-2024 ambulatory [facility] Comment on above: LAB* (SO)CBC/CMP(S)/TSH/T 4/CORTISOL/OV/CHEMO 03/06* Start: 02-20-2024 End: 02-20-2024 Patient encounter procedure 02/20/2024 3:00 PM EDT Office Visit [facility] [address] [place] [address] Fiona Durant MD [address] [place] [address] 3 mo follow up [facility] Comment on above: 3 mo follow up Start: 02-11-2024 End: 02-11-2024 Patient encounter procedure Mobile PET CT Comment on above: Comment: CLINICAL TR LATRELL PATIENT- TO BE READ BY [facility] RADIOLOGIST [facility]/IRB #: [id number] - [id number] Start: 01-26-2024 ANNUAL PCP TEAM LEAD APPLIER LIBORIO DISEASE VISIT ANNUAL PCP TEAM CHRONIC DISEASE VISIT [facility] Start: 12-13-2023 End: 03-13-2024 Comprehensive metabolic 2000 panel - Serum or Plasma COMP METABOLIC PANEL Lab Routine 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) Expected: 12/13/2023, Expires: 03/13/2024 [facility] Work Phone: Comment on above: Expected: 12/13/2023 , Expires: 03/13/2024 Start: 12-13-2023 End: 03-13-2024 Thyrotropin [Units/volume] in Serum or Plasma TSH BLD Lab Routine 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) Expected: 12/13/2023, Expires: 03/13/2024 [facility] Work Phone: Comment on above: Expected: 12/13/2023 , Expires: 03/13/2024 Start: 10-24-2023 ANNUAL PCP TEAM LEAD APPLIER LIBORIO DISEASE VISIT ANNUAL PCP TEAM CHRONIC DISEASE VISIT [facility] Start: 10-08-2023 Behavioral Health Screening Behavioral Health Screening [facility] Start: 10-08-2023 Depression Assessment Depression Ass essment [facility] Start: 09-07-2023 RSV Vaccine (1 - 1-d ose 60+ series) RSV Vaccine (1 - 1-dose 60+ series) [facility] Comment on above: Postponed from 11/08 (Declined at this time) Start: 08-01-2023 End: 10-31-2023 Herpes simplex virus+Varicella zoster virus DNA [Presence] in Unspecified specimen by YUMI with probe detection [facility] Work Phone: Comment on above: Expected: 08/01/2023 , Expires: 10/31/2023 Start: 07-19-2023 ANNUAL PCP TEAM LEAD APPLIER LIBORIO DISEASE VISIT ANNUAL PCP TEAM CHRONIC DISEASE VISIT [facility] Start: 07-19-2023 SHINGRIX VACCINE (1 of 2) SHINGRIX VACCINE (1 of 2) [facility] Comment on above: Postponed from 11/08 (Declined at this time) Start: 06-08-2023 Influenza vaccination C [facility] Start: 05-11-2023 End: 04-25-2024 Ct abdomen & pelvis w/contrast material CT ABD/PEL W IVCON Radiology Routine Malignant neoplasm of unspecified part of unspecified bronchus or lung (HCC) Expected: 05/11/2023 (Approximate), Expires: 04/25/2024 [facility] Work Phone: Comment on above: Expected: 05/11/2023 (Approximate), Expires: 04/25/2024 Start: 05-11-2023 End: 04-25-2024 CT CHEST W IVCON CT CHEST W IVCON Radiology Routine Malignant neoplasm of unspecified part of unspecified bronchus or lung (HCC) Expected: 05/11/2023 (Approximate), Expires: 04/25/2024 [facility] Work Phone: Comment on above: Expected: 05/11/2023 (Approximate), Expires: 04/25/2024 Start: 04-17-2023 ANNUAL PCP TEAM LEAD APPLIER LIBORIO DISEASE VISIT ANNUAL PCP TEAM CHRONIC DISEASE VISIT [facility] Start: 12-26-2022 ANNUAL PCP TEAM LEAD APPLIER LIBORIO DISEASE VISIT ANNUAL PCP TEAM CHRONIC DISEASE VISIT [facility] Start: 12-15-2022 Hepatitis B surface antibody level LDL Cholesterol [facility] Start: 11-21-2022 Colonoscopy COLONOSCOPY [facility] Start: 11-21-2022 COLORECTAL CANCER SCREENING COLORECTAL CANCER SCREENING [facility] Start: 11-21-2022 Screening for malign ant neoplasm of colon [facility] Start: 10-08-2022 DEPRESSION ASSESSMENT DEPRESSION ASS ESSMENT [facility] Start: 07-03-2022 End: 09-02-2022 Amylase [Enzymatic activity/volume] in Serum or Plasma AMYLASE BLD Lab Routine Examination of participant in clinical trial 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, bronchus, and lung (HCC) Expected: 07/03/2022 (Approximate), Expires: 09/02/2022 [facility] Work Phone: Comment on above: Expected: 07/03/2022 (Approximate), Expires: 09/02/2022 Start: 07-03-2022 End: 09-02-2022 CBC W Auto Differential panel - Blood CBC + DIFF Lab Routine Examination of participant in clinical trial 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, bronchus, and lung (HCC) Expected: 07/03/2022 (Approximate), Expires: 09/02/2022 [facility] Work Phone: Comment on above: Expected: 07/03/2022 (Approximate), Expires: 09/02/2022 Start: 07-03-2022 End: 09-02-2022 Comprehensive metabolic 2000 panel - Serum or Plasma COMP METABOLIC PANEL Lab Routine Examination of participant in clinical trial 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, bronchus, and lung (HCC) Expected: 07/03/2022 (Approximate), Expires: 09/02/2022 [facility] Work Phone: Comment on above: Expected: 07/03/2022 (Approximate), Expires: 09/02/2022 Start: 07-03-2022 End: 09-02-2022 Cortisol [Mass/volume] in Serum or Plasma CORTISOL BLD Lab Routine Cancer of trachea, bronchus, and lung (HCC) Bone metastases (HCC) Expected: 07/03/2022, Expires: 09/02/2022 [facility] Work Phone: Comment on above: Expected: 07/03/2022 , Expires: 09/02/2022 Start: 07-03-2022 End: 09-02-2022 Lipase [Enzymatic activity/volume] in Serum or Plasma LIPASE BLD Lab Routine Examination of participant in clinical trial 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, bronchus, and lung (HCC) Expected: 07/03/2022 (Approximate), Expires: 09/02/2022 [facility] Work Phone: Comment on above: Expected: 07/03/2022 (Approximate), Expires: 09/02/2022 Start: 07-03-2022 End: 09-02-2022 Thyrotropin [Units/volume] in Serum or Plasma TSH BLD Lab Routine Examination of participant in clinical trial 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, bronchus, and lung (HCC) Expected: 07/03/2022 (Approximate), Expires: 09/02/2022 [facility] Work Phone: Comment on above: Expected: 07/03/2022 (Approximate), Expires: 09/02/2022 Start: 06-27-2022 Adult depression screening assessment DEPRESSION SCREENING [facility] Start: 06-08-2022 Influenza vaccination INFLUENZA (#1) [facility] Start: 04-27-2022 Urine microalbumin profile DTAP,TDAP,TD (2 - Td or Tdap) [facility] Comment on above: Postponed from 12/25 (Declined at this time) Start: 03-15-2022 SHINGRIX VACCINE (1 of 2) SHINGRIX VACCINE (1 of 2) [facility] Comment on above: Postponed from 11/08 (Declined at this time) Start: 02-10-2022 End: 02-02-2023 Ct abdomen w/contrast material CT ABDOMEN W IVCON Radiology Routine Bone metastases (HCC) Malignant neoplasm of unspecified part of unspecified bronchus or lung (HCC) Nausea Expected: 02/10/2022, Expires: 02/02/2023 [facility] Work Phone: Comment on above: Expected: 02/10/2022 , Expires: 02/02/2023 Start: 02-10-2022 End: 02-02-2023 Ct thorax w/contrast material [facility] Work Phone: Comment on above: Expected: 02/10/2022 , Expires: 02/02/2023 Start: 01-24-2022 End: 03-26-2022 Cortisol [Mass/volume] in Serum or Plasma CORTISOL BLD Lab Routine Cancer of trachea, bronchus, and lung (HCC) Bone metastases (HCC) Expected: 01/24/2022, Expires: 03/26/2022 [facility] Work Phone: Comment on above: Expected: 01/24/2022 , Expires: 03/26/2022 Start: 12-25-2021 Urine microalbumin profile [facility] Start: 2021 RSV Vaccine (1 - 1-d ose 60+ series) RSV Vaccine (1 - 1-dose 60+ series) [facility] Start: 2021 RSV Vaccine (1 - Ris k 60-74 years 1-dose series) RSV Vaccine (1 - Risk 60-74 years 1-dose series) [facility] Start: 10-08-2021 DEPRESSION ASSESSMENT DEPRESSION ASS ESSMENT [facility] Start: 08-29-2018 PNEUMOCOCCAL (2 - PCV) PNEUMOCOCCAL (2 - PCV) [facility] Start: 08-29-2018 Pneumococcal vaccination Pneumococcal Vaccine (2 of 2 - PCV) [facility] Start: 08-29-2018 Pneumococcal Vaccine : 50+ (2 of 2 - PCV) Pneumococcal Vaccine: 50+ (2 of 2 - PCV) [facility] Start: 08-11-2017 Mammography [facility] Start: 08-11-2017 Screening for malign ant neoplasm of breast Mammogram Screening [facility] Start: 2006 COLOGUARD (FIT-DNA) COLOGUARD (FIT-D NA) [facility] Start: [address] COLONOGRAPHY [facility] Start: 2006 FECAL OCCULT BLOOD FECAL OCCULT BLOO D [facility] Start: 2006 Screening for malign ant neoplasm of colon [facility] Start: 2006 SIGMOIDOSCOPY SIGMOIDOSCOPY [facility] Start: 1991 Zoledronic acid therapy ALPHA- 1 ANTITRYPSIN DEFICIENCY SCREENING [facility] Start: 1980 SHINGRIX VACCINE (1 of 2) SHINGRIX VACCINE (1 of 2) [facility] Start: 1979 Anxiety Screening Anxiety Screening [facility] Start: 1979 Depression Screening Depression Scre ening [facility] End: 02-19-2024 CBC W Auto Differential panel - Blood CBC + DIFF Lab STAT 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) Cancer of lower lobe of right lung (HCC) Cancer of trachea, bronchus, and lung (HCC) Every 6 weeks for 2 Occurrences starting 02/19/2023 until 02/19/2024 [facility] Work Phone: Comment on above: Every 6 weeks for 2 Occurrences starting 02/19/2023 until 02/19/2024 End: 08-19-2025 CBC W Auto Differential panel - Blood COMPLETE BLOOD COUNT AND DIFFERENTIAL Lab Routine Malignant neoplasm of unspecified part of unspecified bronchus or lung (HCC) Every 6 weeks for 10 Occurrences starting 08/19/2024 until 08/19/2025 [facility] Comment on above: Every 6 weeks for 10 Occurrences starting 08/19/2024 until 08/19/2025 End: 10-23-2025 CBC W Auto Differential panel - Blood COMPLETE BLOOD COUNT AND DIFFERENTIAL Lab STAT 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) Every 3 weeks for 6 Occurrences starting 10/23/2024 until 10/23/2025 [facility] Work Phone: Comment on above: Every 3 weeks for 6 Occurrences starting 10/23/2024 until 10/23/2025 End: 04-08-2026 CBC W Auto Differential panel - Blood COMPLETE BLOOD COUNT AND DIFFERENTIAL Lab STAT 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) Once per week for 24 Occurrences starting 04/08/2025 until 04/08/2026 [facility] Work Phone: Comment on above: Once per week for 24 Occurrences starting 04/08/2025 until 04/08/2026 End: 02-19-2024 Comprehensive metabolic 2000 panel - Serum or Plasma COMP METABOLIC PANEL Lab STAT 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) Cancer of lower lobe of right lung (HCC) Cancer of trachea, bronchus, and lung (HCC) Every 6 weeks for 2 Occurrences starting 02/19/2023 until 02/19/2024 [facility] Work Phone: Comment on above: Every 6 weeks for 2 Occurrences starting 02/19/2023 until 02/19/2024 End: 08-19-2025 Comprehensive metabolic 2000 panel - Serum or Plasma COMPREHENSIVE METABOLIC PANEL Lab Routine Malignant neoplasm of unspecified part of unspecified bronchus or lung (HCC) Every 6 weeks for 10 Occurrences starting 08/19/2024 until 08/19/2025 [facility] Comment on above: Every 6 weeks for 10 Occurrences starting 08/19/2024 until 08/19/2025 End: 10-23-2025 Comprehensive metabolic 2000 panel - Serum or Plasma COMPREHENSIVE METABOLIC PANEL Lab STAT 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) Every 3 weeks for 6 Occurrences starting 10/23/2024 until 10/23/2025 [facility] Comment on above: Every 3 weeks for 6 Occurrences starting 10/23/2024 until 10/23/2025 End: 04-08-2026 Comprehensive metabolic 2000 panel - Serum or Plasma COMPREHENSIVE METABOLIC PANEL Lab STAT 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) Every 3 weeks for 10 Occurrences starting 04/08/2025 until 04/08/2026 [facility] Comment on above: Every 3 weeks for 10 Occurrences starting 04/08/2025 until 04/08/2026 End: 02-19-2024 Cortisol [Mass/volume] in Serum or Plasma CORTISOL BLD Lab Routine 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) Cancer of lower lobe of right lung (HCC) Cancer of trachea, bronchus, and lung (HCC) Every 6 weeks for 2 Occurrences starting 02/19/2023 until 02/19/2024 [facility] Work Phone: Comment on above: Every 6 weeks for 2 Occurrences starting 02/19/2023 until 02/19/2024 End: 08-19-2025 Cortisol [Mass/volume] in Serum or Plasma CORTISOL, SERUM Lab Routine Malignant neoplasm of unspecified part of unspecified bronchus or lung (HCC) Every 6 weeks for 10 Occurrences starting 08/19/2024 until 08/19/2025 [facility] Comment on above: Every 6 weeks for 10 Occurrences starting 08/19/2024 until 08/19/2025 CT CHEST W IVCON CT CHEST W IVCO N Radiology Routine Malignant neoplasm of unspecified part of unspecified bronchus or lung (HCC) 05/05/2022 10:31 AM EDT [facility] Work Phone: End: 01-01-2026 DBT Breast - bilateral screening CESILIA SCREENING W CARMEN Radiology Routine Encounter for screening mammogram for breast cancer 1 Occurrences starting 12/02/2024 until 01/01/2026 [facility] Work Phone: Comment on above: 1 Occurrences starti ng 12/02/2024 until 01/01/2026 End: 03-19-2026 ECG COMPLETE [facility] Work Phone: Comment on above: 1 Occurrences starti ng 03/19/2025 until 03/19/2026 ECG COMPLETE ECG COMPLETE ECG STAT Adenopathy 03/20/2025 10:23 AM EDT [facility] Work Phone: End: 02-16-2024 CESILIA SCREENING [place] SCREENING Radiology Routine Encounter for screening mammogram for breast cancer 1 Occurrences starting 01/17/2023 until 02/16/2024 [facility] Work Phone: Comment on above: 1 Occurrences starti ng 01/17/2023 until 02/16/2024 End: 01-24-2025 MG Breast Screening [facility] SCREENING Radiology Routine Encounter for screening mammogram for breast cancer 1 Occurrences starting 12/26/2023 until 01/24/2025 [facility] Work Phone: Comment on above: 1 Occurrences starti ng 12/26/2023 until 01/24/2025 End: 05-15-2025 PET+CT Guidance for localization of tumor of Skull base to mid-thigh-- W 18F-FDG IV NM PET/CT SKULL-THIGH SUBSEQUENT Radiology Routine 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) 1 Occurrences starting 04/15/2024 until 05/15/2025 [facility] Work Phone: Comment on above: 1 Occurrences starti ng 04/15/2024 until 05/15/2025 PET+CT Guidance for localization of tumor of Skull base to mid-thigh-- W 18F-FDG IV NM PET/CT SKULL-THIGH SUBSEQUENT Radiology Routine 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) 05/05/2024 1:01 PM EDT [facility] Work Phone: End: 09-18-2025 PET+CT Guidance for localization of tumor of Skull base to mid-thigh-- W 18F-FDG IV NM PET/CT SKULL-THIGH SUBSEQUENT Radiology Routine Malignant neoplasm of unspecified part of unspecified bronchus or lung (HCC) 1 Occurrences starting 08/19/2024 until 09/18/2025 [facility] Work Phone: Comment on above: 1 Occurrences starti ng 08/19/2024 until 09/18/2025 PET+CT Guidance for localization of tumor of Skull base to mid-thigh-- W 18F-FDG IV NM PET/CT SKULL-THIGH SUBSEQUENT Radiology Routine Malignant neoplasm of unspecified part of unspecified bronchus or lung (HCC) 09/15/2024 12:54 PM EST [facility] Work Phone: End: 03-06-2026 PET+CT Guidance for localization of tumor of Skull base to mid-thigh-- W 18F-FDG IV NM PET/CT SKULL-THIGH SUBSEQUENT Radiology Routine 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) 1 Occurrences starting 02/04/2025 until 03/06/2026 [facility] Work Phone: Comment on above: 1 Occurrences starti ng 02/04/2025 until 03/06/2026 PET+CT Guidance for localization of tumor of Skull base to mid-thigh-- W 18F-FDG IV NM PET/CT SKULL-THIGH SUBSEQUENT Radiology Routine 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) 03/09/2025 12:45 PM EDT [facility] Work Phone: PET+CT Whole body Stephen ne W 18F-NaF IV NM PET/CT WHOLE BODY SUBSEQUENT Radiology Routine Malignant neoplasm of unspecified part of unspecified bronchus or lung (HCC) 02/18/2024 9:56 AM EDT [facility] Work Phone: End: 03-17-2023 Screening mammography bi 2-view breast inc cad [facility] SCREENING Radiology Routine Encounter for screening mammogram for breast cancer 1 Occurrences starting 02/15/2022 until 03/17/2023 [facility] Work Phone: Comment on above: 1 Occurrences starti ng 02/15/2022 until 03/17/2023 End: 02-19-2024 Thyrotropin [Units/volume] in Serum or Plasma TSH BLD Lab Routine 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) Cancer of lower lobe of right lung (HCC) Cancer of trachea, bronchus, and lung (HCC) Every 6 weeks for 2 Occurrences starting 02/19/2023 until 02/19/2024 [facility] Work Phone: Comment on above: Every 6 weeks for 2 Occurrences starting 02/19/2023 until 02/19/2024 Thyrotropin [Units/volume] in Serum or Plasma THYROID STIMULATING HORMONE Lab Routine 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) 04/17/2024 12:57 PM EDT [facility] Work Phone: End: 08-19-2025 Thyrotropin [Units/volume] in Serum or Plasma THYROID STIMULATING HORMONE Lab Routine Malignant neoplasm of unspecified part of unspecified bronchus or lung (HCC) Malaise and fatigue Every 6 weeks for 10 Occurrences starting 08/19/2024 until 08/19/2025 [facility] Comment on above: Every 6 weeks for 10 Occurrences starting 08/19/2024 until 08/19/2025 End: 02-19-2024 Thyroxine (T4) free [Mass/volume] in Serum or Plasma T4 FREE/FREE THYROX Lab Routine 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) Cancer of lower lobe of right lung (HCC) Cancer of trachea, bronchus, and lung (HCC) Every 6 weeks for 2 Occurrences starting 02/19/2023 until 02/19/2024 [facility] Work Phone: Comment on above: Every 6 weeks for 2 Occurrences starting 02/19/2023 until 02/19/2024 Thyroxine (T4) free [Mass/volume] in Serum or Plasma T4 FREE/FREE THYROXINE Lab Routine 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) Malaise and fatigue 04/17/2024 12:57 PM EDT [facility] End: 01-10-2024 US LEG VEIN DVT UNL VAS LAB US LEG VEIN DVT UNL VAS LAB Vascular Lab Routine Cancer of lower lobe of right lung (HCC) Left leg swelling 1 Occurrences starting 01/09/2023 until 01/10/2024 [facility] Work Phone: Comment on above: 1 Occurrences starti ng 01/09/2023 until 01/10/2024 End: 03-21-2024 Us soft tissue head & neck real time imge docm US THYROID/PARATHYROID Radiology Routine Thyroid nodule 1 Occurrences starting 02/20/2023 until 03/21/2024 [facility] Work Phone: Comment on above: 1 Occurrences starti ng 02/20/2023 until 03/21/2024 [facility] c [facility] c [facility] c [facility] c [facility] c [facility] Immunizations Immunization Date Immunization Notes Care Provider [facility] 09-08-2024 influenza, seasonal, injectable Georgina Morgan MD Work Phone: [facility] 09-08-2024 influenza virus vacc ine, unspecified formulation Sandoval Burgess MD Work Phone: [facility] 08-15-2023 influenza, injectabl e, quadrivalent, contains preservative Liza Canas RN [facility] 08-15-2023 influenza virus vacc ine, unspecified formulation Sandoval Burgess MD Work Phone: [facility] 07-19-2022 influenza, injectabl e, quadrivalent, contains preservative Liza Canas RN [facility] 07-19-2022 influenza virus vacc ine, unspecified formulation Ann Slade PA-C Work Phone: [facility] 08-08-2021 influenza, injectabl e, quadrivalent, preservative free Liza Canas RN [facility] Work Phone: 08-18-2019 influenza, injectabl e, quadrivalent, contains preservative Liza Canas RN [facility] 09-16-2018 influenza, injectabl e, quadrivalent, contains preservative Liza Canas RN [facility] Work Phone: 08-29-2017 influenza, injectabl e, quadrivalent, contains preservative Liza Canas RN [facility] 08-29-2017 pneumococcal polysaccharide vaccine, 23 valent Liza Canas RN [facility] 08-28-2016 influenza, injectabl e, quadrivalent, contains preservative Liza Canas RN [facility] 08-18-2015 influenza, injectabl e, quadrivalent, contains preservative Liza Canas RN [facility] 08-05-2013 influenza virus vacc ine, unspecified formulation Liza Canas RN [facility] 12-26-2011 tetanus toxoid, redu melvin diphtheria toxoid, and acellular pertussis vaccine, adsorbed Liza Canas RN [facility] 12-25-2011 tetanus and diphther ia toxoids, not adsorbed, for adult use Liza Canas RN [facility] 07-29-2011 influenza virus vacc ine, unspecified formulation Liza Canas [facility] Work Phone: 07-14-2010 influenza virus vacc ine, unspecified formulation Liza Canas RN [facility] 08-14-2008 influenza virus vacc ine, unspecified formulation Liza Canas RN [facility] Work Phone: 08-07-2007 influenza virus vacc ine, unspecified formulation Liza Canas RN [facility] 08-13-2006 influenza virus vacc ine, unspecified formulation Liza Canas [facility] Work Phone: Payers Date Payer Category Payer Self-pay 2023 Unknown [id number] 2022 Unknown [id number] 2013 Medicaid [employer] [id number] 2013-Present [phone] [address] [place] [address] Medicaid [id number] 2013 Medicaid [id number] Unknown [id number] Unknown [id number] Unknown [id number] Unknown [id number] Unknown [id number] Unknown [id number] Social History Date Type Detail Facility Start: 08-08-2021 End: 04-08-2025 Tobacco smoking status NHIS Smokes tobacco daily [facility] Start: 03-08-2024 History of tobacco use Cigarette Smo ker [facility] Start: 08-08-2021 End: 02-09-2023 Cigarettes smoked current (pack per day) - Reported 2 [facility] Work Phone: Start: 08-08-2021 End: 04-08-2025 Tobacco use and exposure Smokeless tobacco non-user [facility] Start: 01-03-2022 End: 02-14-2022 Alcohol intake Current non-drinker of alcohol (finding) [facility] Start: 12-13-2021 Tobacco Comment Pt has cut carlos k to one pack every 2 days. [facility] Start: 1960 Sex Assigned At Female C [facility] Start: 10-19-2021 End: 09-04-2022 Exposure to SARS-CoV-2 (event) Not sure [facility] Start: 02-14-2022 End: 07-19-2022 Tobacco Comment Pt has cut back to one pack every 3 days. [facility] Start: 03-03-2022 End: 04-24-2025 Alcohol intake Current drinker of alcohol (finding) [facility] Start: 03-03-2022 History SDOH Alcohol Comment Occasional glass of wine. A few per month [facility] Start: 07-24-2022 Tobacco Comment Pt has cut carlos k to one pack weekly. [facility] Start: 10-24-2022 Tobacco Comment Pt has cut carlos k to one pack weekly. 10/24/22--2 packs per week and working on quitting. Noted smoking causes wheezing [facility] Start: 02-09-2023 End: 04-16-2023 Tobacco use panel [facility] Work Phone: Adult Depression Screening Assessment 3 [facility] Work Phone: Start: 09-21-2020 Gender identity Identifies as female gender (finding) [facility] Start: 09-21-2020 Sexual orientation Heterosexual (kia ignacio) [facility] Start: 05-22-2023 Tobacco Comment Down to 1PPD s till; stress [facility] Start: 11-28-2023 Tobacco Comment Down to 1PPD s till; stress --still 1PPD (November 28, 2023) [facility] Start: 01-23-2024 Tobacco Comment Down to 1PPD [facility] Start: 09-08-2024 Tobacco Comment Was down to 1P PD then 3cig per week but back to 1PPD since not able to get Chantix covered. [facility] Start: 09-30-2024 Tobacco Comment Was down to 1P PD then 3cig per week but back to 1PPD [facility] Medical Equipment Procedure Code Equipment Code Equipment Origin al Text Equipment Identifier Dates Test blood sugar (s) 1 times daily. Dx: (R73.9) Hyperglycemia; (R73.03) Prediabetes Insulin: No [id number], [id number] Start: 09-04-2023 End: 09-08-2024 Comment on above: Test blood sugar(s) 1 times daily. Dx: (R73.9) Hyperglycemia; (R73.03) Prediabetes Insulin: No Functional Status Date Assessment Result Facility 04-12-2015 Are you deaf, or do you have serious difficulty hearing No 04/12/2015 10:52 AM EDMeryl Espinoza Cma No [facility] 04-12-2015 Are you blind, or do you have serious difficulty seeing, even when wearing glasses No 04/12/2015 10:52 AM Meryl Fuentes C[facility] No [facility] 04-12-2015 Do you have serious difficulty walking or climbing stairs Yes 04/12/2015 10:52 AM Meryl Fuentes Cma Yes [facility] 04-12-2015 Do you have difficul ty dressing or bathing No 04/12/2015 10:52 AM EDMeryl Espinoza Cma No [facility] 04-12-2015 Because of a physica l, mental, or emotional condition, do you have difficulty doing errands alone such as visiting a physician's office or shopping No 04/12/2015 10:52 AM EDT Tyrese GardnerWintery Nithya [facility] Mental Status Date Assessment Result Facility 04-12-2015 Because of a physica l, mental, or emotional condition, do you have serious difficulty concentrating, remembering, or making decisions No 04/12/2015 10:52 AM EDT Tyrese Gardner Meryl Nithya [facility] Clinical Notes 02-07-2008 to 04-24-2025 Georgina Morgan MD - 04/24/2025 2:15 PM EDTTelephone Encounter - Christina Amaro RN - 04/21/2025 3:31 PM EDTTelephone Encounter - Christina Amaro RN - 04/21/2025 3:31 PM EDT Note Date & Type Note Facility 04-24-2025 History of Present illness Narrative Images from the original note were not included. . 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 Current therapy consists of Alimta and pemetrexed. Carboplatin stopped due to side effects. Her inhaler therapy consists of Advair and Incruse Ellipta with as needed albuterol. She was recently seen for preoperative bronchoscopy evaluation. She had had a change in character of her cough, not her typical smoker's cough. Some blood-tinged sputum. Persistent wheezing. PET scan showed progression of her disease with bulky right hilar lymphadenopathy and increased subcarinal lymphadenopathy with extrinsic compression of her right middle lobe. Status post EBUS biopsy 03/31/25 with pathology showing a secondary cancer, squamous cell carcinoma of the lung. Plans are for carboplatin and Abraxane. She states she cannot take carboplatin as this made her ill for over a month. She has an upcoming appointment with Dr. Duncan. She called the office with complaints of productive cough and sob since her recent bronchoscopy and presents for an acute visit. Cough is productive of green phlegm. No hemoptysis. Persistent wheezing which is not new but has felt more dyspneic. No chest pain, fevers or chills. She has not been using her controller inhalers for the past two weeks, only using albuterol. DATA: Labs: FINAL DIAGNOSIS A. Lymph node, 4R, EBUS core biopsy: - Squamous cell carcinoma. B. Lymph node, station 7, EBUS core biopsy: - Adenocarcinoma (see comment). C. Right lung, distal bronchus intermedius, endobronchial biopsy: - Fragments of bronchial mucosa with nonspecific chronic inflammatory changes. Component Ref Range & Units 2 wk ago (04/08/25) WBC 3.70 - 11.00 k/uL 13.21 High RBC 3.90 - 5.20 m/uL 4.29 Hemoglobin 11.5 - 15.5 g/dL 12.4 Hematocrit 36.0 - 46.0 % 36.4 MCV 80.0 - 100.0 fL 84.8 MCH 26.0 - 34.0 pg 28.9 MCHC 30.5 - 36.0 g/dL 34.1 RDW-CV 11.5 - 15.0 % 15.6 High Platelet Count 150 - 400 k/uL 262 MPV 9.0 - 12.7 fL 9.8 Neutrophils % % 86.3 Abs Neut 1.45 - 7.50 k/uL 11.41 High Lymphocytes % % 4.6 Abs Lymph 1.00 - 4.00 k/uL 0.61 Low Monocytes % % 7.0 Abs [place] <0.87 k/uL 0.92 High Eosinophils % % 1.1 Abs Eosin <0.46 k/uL 0.14 Basophils % % 0.4 Abs Baso <0.11 k/uL 0.05 Immature Granulocytes % % 0.6 Abs Immature Gran <0.10 k/uL 0.08 NRBC /100 WBC 0.0 Absolute nRBC <0.01 k/uL <0.01 Diff Type Auto 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 potassium chloride (KLOR-CON) 20 mEq packet Take 20 mEq by mouth two times a day. (Patient taking differently: Take 20 mEq by mouth two times a day. K 2.4 on 04/08/25, using 60meq for a week and then will resume 40meq.) levoFLOXacin (LEVAQUIN) 500 mg tablet Take 1 tablet by mouth once daily for 7 days. predniSONE (DELTASONE) 10 mg tablet Take 40 mg a day for 3 days, then 30 mg a day for 3 days, then 20 mg a day for 3 days, 10 mg a day 3 days prochlorperazine (COMPAZINE) 10 mg tablet Take 1 tablet by mouth every 6 hours as needed. benzonatate (TESSALON PERLE) 100 mg capsule Take 1 capsule by mouth three times a day as needed. albuterol HFA (VENTOLIN HFA) 90 mcg/actuation inhaler Inhale 2 Puffs as instructed every 4 hours as needed for Wheezing/Shortness of Breath. Do not replace with ProAir. esomeprazole (NEXIUM) 20 mg capsule Take 1 capsule by mouth daily before breakfast. 1/2 hr before meal. furosemide (LASIX) 20 mg tablet Take 1-2 tablets by mouth once daily as needed. (Patient not taking: Reported on 04/24/2025) hydroCHLOROthiazide 25 mg tablet Take 1 tablet by mouth once daily. ibuprofen (MOTRIN) 800 mg tablet Take 1 tablet by mouth every 8 hours as needed for pain. losartan (COZAAR) 25 mg tablet Take 1 tablet by mouth once daily. rosuvastatin (CRESTOR) 40 mg tablet Take 1 tablet by mouth once daily. verapamil ER (VERELAN) 120 mg 24 hr capsule Take 1 capsule by mouth once daily. carboxymethylcellulose (REFRESH) 0.5 % drop Use 1 drop in both eyes as needed (dry eyes). fluticasone (FLONASE) 50 mcg/actuation nasal spray Use 2 sprays in each nostril once daily. Rinse mouth after use folic acid 1 mg tablet Take 1 tablet by mouth once daily. aspirin, enteric coated (ASPIRIN, ENTERIC COATED) 81 mg EC tablet Take 1 tablet by mouth once daily. nystatin (MYCOSTATIN) 100,000 unit/mL suspension Take 5 mL by mouth four times daily. 1tsp swish in mouth for several minutes, then swallow (or expectorate) 4 times daily until gone. promethazine (PHENERGAN) 25 mg tablet Take 1 tablet by mouth every 6 hours as needed for nausea/vomiting. benzonatate (TESSALON PERLE) 100 mg capsule Take 2 capsules by mouth three times a day as needed for cough. Take 1-3 capsules by mouth every 6-8 hours as needed. fluticasone-salmeterol (ADVAIR DISKUS) 500-50 mcg/dose dsdv Inhale 1 Puff as instructed two times a day. RINSE AND GARGLE MOUTH WITH WATER AFTER EACH USE. (Patient not taking: Reported on 04/24/2025) umeclidinium (INCRUSE ELLIPTA) 62.5 mcg/actuation inhaler Inhale 1 Puff as instructed once daily. blood sugar diagnostic (BLOOD GLUCOSE TEST) test strip Test blood sugar(s) 1 times daily. Dx: (R73.9) Hyperglycemia; (R73.03) Prediabetes Insulin: No multivitamin tablet Take 1 tablet by mouth once daily. naloxone 4 mg/actuation nasal spray (NARCAN) Use 1 spray in one nostril as needed for overdose. May repeat every 2 to 3 min in alternating nostrils until medical assistance is available albuterol (PROVENTIL) 2.5 mg /3 mL (0.083 %) nebulizer solution Use 3 mL via nebulizer every 6 hours as needed for wheezing/shortness of breath. 1 vial contains 3 ml. aluminum-magnesium hydroxide-simethicone 200-200-20 mg/5 mL suspension Take 15 mL by mouth every 6 hours as needed. diclofenac (VOLTAREN) 1 % topical gel Apply 2 g to affected area four times a day as needed (upper extremity joint(s)). simethicone, chewable (WY-ACID GAS RELIEF,SIMETHICON,) 80 mg chewable tablet Take 1 tablet by mouth every 6 hours as needed. traZODone (DESYREL) 50 mg tablet Take 1 tablet by mouth at bedtime as needed. senna (SENOKOT) 8.6 mg tab Take 2 tablets by mouth twice daily. oxyCODONE-acetaminophen (PERCOCET) 7.5-325 mg tablet Take 1 tablet by mouth every 8 hours as needed for pain. rizatriptan (MAXALT) 10 mg tablet Take 10 mg by mouth as needed. May repeat in 2 hours if needed cyclobenzaprine (FLEXERIL) 10 mg tablet Take 10 mg by mouth twice daily as needed for Muscle Spasm. polyethylene glycol 3350 (MIRALAX) 17 gram/dose powder Take 17 g by mouth once daily. NOT NEEDING NOW Nebulizer NEBULIZER FOR HOME USE with supplies. DX: (J45.40) Moderate persistent asthma without complication (primary encounter diagnosis) Social History Tobacco Use Smoking status: Every Day Current packs/day: 0.50 Average packs/day: 2.0 packs/day for 43.1 years (85.2 ttl pk-yrs) Types: Cigarettes Start date: 03/08/2024 Smokeless tobacco: Never Tobacco comments: Was down to 1PPD then 3cig per week but back to 1PPD Vaping Use Vaping status: Some Days Substances: THC Substance Use Topics Alcohol use: Yes Comment: Occasional glass of wine. A few per month Drug use: Yes Types: Marijuana Comment: every 2-3 days FAMILY HISTORY Problem Relation Age of Onset Alzheimer's Disease Father Blood Disease Mother other (lung cancer) Brother 3rd brother, small cell Cerebral Embolism Brother oldest brother, aneurysm Cancer Brother 2nd brother, some type of skin cancer Diabetes Maternal Grandmother No Ocular Disease No Family History PAST SURGICAL HISTORY Procedure Laterality Date CHOLECYSTECTOMY Cholecystectomy COLONOSCOPY FLX DX W/COLLJ SPEC WHEN PFRMD 11/20/2012 Colonoscopy F TOTAL ABDOMINAL HYSTERECTOMY 05/2013 INCISE FINGER TENDON SHEATH Right 07/21/2021 Right ring trigger finger release INCISE FINGER TENDON SHEATH Left 02/26/2023 Left ring trigger finger release LAPAROSCOPIC APPENDECTOMY 02/17/2015 LIG/TRNSXJ FLP TUBE ABDL/VAG APPR UNI/BI 1982 Tubal ligation NEUROPLASTY &/TRANSPOS MEDIAN NRV CARPAL TUNNE 04/29/2004 Carpal tunnel decomp,left NEUROPLASTY &/TRANSPOS MEDIAN NRV CARPAL TUNNE 05/17/2004 Carpal tunnel decomp, right NOVASURE PAST SURGICAL HISTORY OF cardiac stents PMH, Social history, family history and surgical history reviewed and updated in EMR REVIEW OF SYSTEMS: CONSTITUTIONAL: No fevers, chills CARDIOVASCULAR: No chest pain, palpitations, orthopnea, PND. Edema PULM: See HPI NEURO: No balance problems, peripheral weakness/paresthesias or numbness of concern. MUSC-SKEL: Lower extremity weakness INTEGUMENTARY: No new skin changes PHYSICAL EXAMINATION: BP 112/76 Pulse 102 Resp 17 SpO2 91% LMP 11/04/2012 General Appearance: Obese female, in wheelchair. Oropharynx: No oral lesions or erythema Neck: No masses or adenopathy. Lungs: Not labored, very diminished breath sounds, isolated wheeze right upper lobe anteriorly. Heart: Regular rate and rhythm, no murmurs. Extremities: Edema, no clubbing. Assessment/Plan: 1. COPD with exacerbation -Patient needs to use her triple inhaler therapy -Oral course of steroids and sent in a prescription for Levaquin 2. Lung cancer, right -Treatment plan per oncology 3. Cigarette smoker -Smoking cessation is paramount - Patient is not motivated to quit smoking although she has cut back Georgina Morgan MD [facility] documented in this encounter [facility] 04-21-[address] Burgess aware. Patient to reach out to pulmonary for symptom management. Oneida Amaro RN [facility] Work Phone: 04-21-[address] Burgess aware. Patient to reach out to pulmonary for symptom management. Oneida Amaro RN Care Coordination Triage Note [facility] Situation: Patient reports Cough/Respiratory Concerns/SOB Background: Lung cancer, to start Abraxane Assessment: Patient calls and states she is continuously wheezing. Gets worse with activity. Continues with chronic cough, productive, clear and thick. I eventually cough it up Decreased appetite, eating minimal' Fluid intake, 3-4 12oz bottles of water and can of sprite daily. She uses her Albuterol inhaler every 1-2 hours now. Continues with Advair and Incruse as prescribed. She states she hasn't used Nebulizer w/ Albuterol in quite awhile. Dr. Burgess gave Rx for Medrol pk 04/08/25, states it helped some. Advised she can try Mucinex to help with thick phlegm. Go to Urgent care of ED if symptoms worsen. Recommendations: Per RN[facility], patient directed to: Manage at home. Instructions provided. Will update Dr. Burgess and call back if any further instructions. Christian Amaro RN April 21, 2025 2:43 PM documented in this encounter [facility] 04-21-2025 Telephone encounter Note Care Coordination Triage Note Cancer [place] Situation: Patient reports Cough/Respiratory Concerns/SOB Background: Lung cancer, to start Abraxane Assessment: Patient calls and states she is continuously wheezing. Gets worse with activity. Continues with chronic cough, productive, clear and thick. I eventually cough it up Decreased appetite, eating minimal' Fluid intake, 3-4 12oz bottles of water and can of sprite daily. She uses her Albuterol inhaler every 1-2 hours now. Continues with Advair and Incruse as prescribed. She states she hasn't used Nebulizer w/ Albuterol in quite awhile. Dr. Burgess gave Rx for Medrol pk 04/08/25, states it helped some. Advised she can try Mucinex to help with thick phlegm. Go to Urgent care of ED if symptoms worsen. Recommendations: Per RN[facility], patient directed to: Manage at home. Instructions provided. Will update Dr. Burgess and call back if any further instructions. Christina Amaro RN April 21, 2025 2:43 PM [facility] 04-20-2025 Telephone encounter Note Pt appts have been cx as directed. Shahnaz Rosa [facility] 04-20-2025 Miscellaneous Notes Pt appts have been cx as directed. Shahnaz Rosa PSS: please cancel all appointments with our office EXCEPT for OV with Dr. Duncan on 05/06/25. Oneida Amaro RN Jose Raul Care Coordination FOLLOW-UP NOTE Patient identified by name and date of . YES Spoke to patient Summary: (Reason for follow-up) Patient calls and ask the she wait to start any further treatments until after she discusses with Dr. Duncan at OV on 05/06/25. She wants all of her currently scheduled chemo treatments cancelled. She wants to talk this through with Dr. Duncan before she proceeds with any further treatments. She denies other needs at this time. Patient verbalized when to seek Medical Attention and an understanding of after- hours phone number and process: Yes Care Coordination Plan: No further follow up needed at this time Christina Amaro RN April 20, 2025 documented in this encounter [facility] 04-20-2025 Telephone encounter Note PSS: please cancel all appointments with our office EXCEPT for OV with Dr. Duncan on 05/06/25. Oneida Amaro RN [facility] Work Phone: 04-20-2025 Telephone encounter Note Jose Raul Care Coordination FOLLOW-UP NOTE Patient identified by name and date of . YES Spoke to patient Summary: (Reason for follow-up) Patient calls and ask the she wait to start any further treatments until after she discusses with Dr. Duncan at on 05/06/25. She wants all of her currently scheduled chemo treatments cancelled. She wants to talk this through with Dr. Duncan before she proceeds with any further treatments. She denies other needs at this time. Patient verbalized when to seek Medical Attention and an understanding of after- hours phone number and process: Yes Care Coordination Plan: No further follow up needed at this time Christina Amaro RN April 20, 2025 [facility] 04-16-[address] Burgess aware and ok to remove Carboplatin from regimen. Oneida Amaro RN [facility] Work Phone: 04-16-[address] Burgess aware and ok to remove Carboplatin from regimen. Oneida Amaro RN Patient returned call and states that she does not want to have any more Carboplatin at all. She doesn't feel that her body is up for it. She is ok to start Abraxane. Oneida Amaro RN Attempted to call patient. No answer. Left message to call me back. Oneida Amaro RN Patient called to speak to Oneida Amaro. Unable to reach at this time. Patient stated she does not want to do Carboplatin treatment on the but she will continue with ABRAXANE. Please call patient when able. Maylin Haley documented in this encounter [facility] 04-16-2025 Telephone encounter Note Patient returned call and states that she does not want to have any more Carboplatin at all. She doesn't feel that her body is up for it. She is ok to start Abraxane. Oneida Amaro RN [facility] 04-16-2025 Telephone encounter Note Attempted to call patient. No answer. Left message to call me back. Oneida Amaro RN [facility] 04-16-2025 Telephone encounter Note Patient called to speak to Oneida Amaro. Unable to reach at this time. Patient stated she does not want to do Carboplatin treatment on the but she will continue with ABRAXANE. Please call patient when able. Maylin Haley [facility] 04-15-2025 History of Present illness Narrative Patient teaching was completed over the phone. Patient has had previous chemo education and reviewed new regimen. ONCOLOGY PATIENT EDUCATION NOTE TOPIC: Chemotherapy, Medications: Caboplatin/Abraxane patient called today for education for treatment of Non-Small Cell Lung Cancer Anticipated/Scheduled start date: 04/22/25 READINESS TO LEARN: COGNITIVE ABILITY: Alert and oriented MOTIVATION TO LEARN: Interested FAMILY SUPPORT: High - Very involved in pt care INSTRUCTION PROVIDED TO: Patient INSTRUCTION PROVIDED BY: Nurse Coordinator PATIENT LEARNS BEST BY: Multiple Methods FACTORS AFFECTING LEARNING: None PHYSICAL LIMITATIONS AFFECTING LEARNING: None LEARNING RESPONSE METHOD OF INSTRUCTION: Individual instruction Written instruction/Handouts Verbal instruction PATIENT/FAMILY RESPONSE: Verbalizes understanding of: CHEMOTHERAPY-Regimen, toxicity and side effects FOLLOW UP PLAN: Recommend - Recommend continued instruction and follow up as directed Contact information given. SUPPLEMENTAL MATERIAL: Written material was provided at this visit with the following information: - Chemotherapy education was provided by a pharmacist NO - Side effect management information was provided/discussed including but not limited to: abdominal discomfort, anemia, appetite changes, arthralgia, bowel habit changes, electrolyte disturbances, fatigue, hair loss, hand-foot syndrome, infection, mouth hygiene, myalgia, nausea/vomitting, neutropenia, peripheral neuropathy, thrombocytopenia YES - Provided important phone numbers and contacts during and after hours. YES - Provided information on symptoms that require immediate assistance. YES - Provided Chemotherapy when to call handouts YES - Preventing infection. YES - Treatment schedule and confirmation of appointment times. YES - Available support groups. YES - The importance of contraception during the course of chemotherapy NA - Neutropenic fever protocol discussed with patient, which included the importance of reporting any fever of 100.4F (38.0C) or greater to the healthcare team as noted on the provided wallet card and/or magnet. YES Time Spent: 30 minutes REFERRAL (RECOMMENDATION): N/A Christina Amaro RN documented in this encounter [facility] 04-14-2025 Telephone encounter Note 7/ office notes and 03/31 biopsy results faxed to number provided. Oneida Amaro RN [facility] Work Phone: 04-14-2025 Miscellaneous Notes 7/2 office notes and 03/31 biopsy results faxed to number provided. Oneida Amaro RN Asked Dr. Burgess to sign his note. Oneida Amaro RN Office note not signed yet. Deb Hoover LPN Corbin with [facility] is requesting copy of 04/08 office notes and 03/31 biopsy results. Please fax to [phone] Attn: Corbin documented in this encounter [facility] 04-14-2025 Telephone encounter Note Asked Dr. Burgess to sign his note. Oneida Amaro RN [facility] 04-13-2025 Telephone encounter Note Returned patients call to discuss the concerns the patient had expressed prior. These concerns were brought to Oneida Amaro and kassidy Mclean. A plan to address the patients concerns has been implemented. Patient knows to call with any questions or concerns in the meantime. Liza Canas RN [facility] 04-13-2025 Miscellaneous Notes Returned patients call to discuss the concerns the patient had expressed prior. These concerns were brought to Oneida Amaro and kassidy Mclean. A plan to address the patients concerns has been implemented. Patient knows to call with any questions or concerns in the meantime. Liza Canas RN documented in this encounter [facility] 04-09-2025 Telephone encounter Note Office note not signed yet. Deb Hoover LPN [facility] 04-09-2025 Telephone encounter Note per Dr. Burgess, cancer would be considered aggressive. Oneida Amaro RN Call to patient and aware. No further questions from her. She was reminded of chemo education date/time and given start date/time. Oneida Amaro RN [facility] Work Phone: 04-09-[address] Burgess, cancer would be considered aggressive. Oneida Amaro RN Call to patient and aware. No further questions from her. She was reminded of chemo education date/time and given start date/time. Oneida Amaro RN Patient calls in asking if the new cancer discussed yesterday is aggressive? She forgot to ask that yesterday. She is also asking if the steroid mentioned yesterday was called into pharmacy? Verified that Medrol pk was called in and that I will ask Dr. Burgess and call her back. Oneida Amaro RN documented in this encounter [facility] 04-09-2025 Telephone encounter Note Corbin with [facility] is requesting copy of 04/08 office notes and 03/31 biopsy results. Please fax to [phone] Attn: Corbin [facility] Work Phone: 04-09-2025 Telephone encounter Note Patient calls in asking if the new cancer discussed yesterday is aggressive? She forgot to ask that yesterday. She is also asking if the steroid mentioned yesterday was called into pharmacy? Verified that Medrol pk was called in and that I will ask Dr. Burgess and call her back. Oneida Amaro, RN [facility] 04-08-2025 Telephone encounter Note Scheduled treatment and sent chemo start email Maylin Haley [facility] 04-08-2025 Miscellaneous Notes Scheduled treatment and sent chemo start email Maylin Haley Chemo Education-Carbo/Abraxaneprove-SC HEDULED 04/15 Start Carbo/Abraxane, CBC/CMP, straight back to start CBC with D8, D15 CBC/CMP/OV prior to each cycle documented in this encounter [facility] 04-08-2025 Telephone encounter Note Chemo Education-Carbo/Abraxaneprove-SC HEDULED 04/15 Start Carbo/Abraxane, CBC/CMP, straight back to start CBC with D8, D15 CBC/CMP/OV prior to each cycle [facility] 04-08-2025 History of Present illness Narrative (Elements copied from my note dated March 18, 2025, have been reviewed and updated where appropriate, and all reflect current assessment and medical decision making from today's encounter, April 08, 2025) HISTORY OF PRESENT ILLNESS: Lata Smith is a 64 year old female who presented with worsening shortness of breath and hemoptysis for several months. Patient was seen in primary care clinic in May was treated with antibiotic without improvement. She was seen by Dr. Castillo and a CT chest revealed a lung mass and mediastinal adenopathy. She had no fever Chills, rigor, pleuritic chest pain, chest trauma. She has stable exertional dyspnea with activities of daily living, and exertional wheezing. She also complained of severe right hip pain along with pressure on her right side of her chest for couple months. Her staging PET scan on 08/03/2020 unfortunately showed metastatic disease. She had bronchoscopy and EBUS biopsy of the mediastinal lymph node on 08/19/2020. Biopsy was consistent with non-small cell, favoring adenocarcinoma the lung. She is here today to discuss treatment option for metastatic lung cancer. Patient is lives with an adult son. She is quit smoking since October after her heart attack. She denied any any weight loss since her heart attack. She has no hoarseness or dysphagia. No headaches or neurological symptoms. She has severe right hip pain secondary to metastatic disease. MRI scan of brain shows no evidence of metastatic disease. She completed palliative radiation therapy to her right hip. Prior therapies: Pembrolizumab till Zometa till November 2023 Current therapy: 1) Carboplatin pemetrexed then pemetrexed SA from 10-30-24 to present. 2) Zometa done, completed 3 years in November 2023 I ran her case by med onc and rad onc at [facility], their review suggests stability of disease, they recommend observation, possible SBRT to lung if we see further growth of right lung nodule. PET scan from we see progression in chest, new thoracic spine metastasis Reviewed Guardant results, no actionable mutations applicable to non small cell lung cancer. Here for follow up, cycle 2 planned. Bad experience with cycle 1, was in bed for a month with fatigue, no energy, no appetite. Nausea but no vomiting. Now eating well. Carboplatin stopped, continuing with SA alimta Follow up 02-04-25 Doing well, cough, produces clear mucus. Reviewed PET, respone to treatment seen in osseous structures, but hilar and mediastinal uptake is increased. Mixed response on PET scan EBUS 03-31-25 shows new cancer, squamous cell carcinoma. 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 stop alimta. 2. Plan carboplatin abraxane. 3. Pt notified of low potassium instructed to take 3 potassium tablets a day for 1 week than back to 2 Written and verbal health teaching given to patient, patient verbalizes understanding and agrees with treatment plan. 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 Hypertension Irritable bowel syndrome Migraine without aura Obesity, unspecified Other forms of migraine ST elevation myocardial infarction involving right coronary artery (HCC) 06/28/2020 Tobacco use disorder PAST SURGICAL HISTORY Procedure Laterality Date CHOLECYSTECTOMY Cholecystectomy COLONOSCOPY FLX DX W/COLLJ SPEC WHEN PFRMD 11/20/2012 Colonoscopy F TOTAL ABDOMINAL HYSTERECTOMY 05/2013 INCISE FINGER TENDON SHEATH Right 07/21/2021 Right ring trigger finger release INCISE FINGER TENDON SHEATH Left 02/26/2023 Left ring trigger finger release LAPAROSCOPIC APPENDECTOMY 02/17/2015 LIG/TRNSXJ FLP TUBE ABDL/VAG APPR UNI/BI 1982 Tubal ligation NEUROPLASTY &/TRANSPOS MEDIAN NRV CARPAL TUNNE 04/29/2004 Carpal tunnel decomp,left NEUROPLASTY &/TRANSPOS MEDIAN NRV CARPAL TUNNE 05/17/2004 Carpal tunnel decomp, right NOVASURE PAST SURGICAL HISTORY OF cardiac stents FAMILY HISTORY Problem Relation Age of Onset Alzheimer's Disease Father Blood Disease Mother other (lung cancer) Brother 3rd brother, small cell Cerebral Embolism Brother oldest brother, aneurysm Cancer Brother 2nd brother, some type of skin cancer Diabetes Maternal Grandmother No Ocular Disease No Family History Social History Tobacco Use Smoking status: Every Day Current packs/day: 0.50 Average packs/day: 2.0 packs/day for 43.1 years (85.1 ttl pk-yrs) Types: Cigarettes Start date: 03/08/2024 Smokeless tobacco: Never Tobacco comments: Was down to 1PPD then 3cig per week but back to 1PPD Vaping Use Vaping status: Some Days Substances: THC Substance Use Topics Alcohol use: Yes Comment: Occasional glass of wine. A few per month Drug use: Yes Types: Marijuana Comment: every 2-3 days ALLERGIES: ALLERGIES Allergen Reactions Augmentin [Amoxicil* Diarrhea Tolerates plain penicillins such as amoxicillin Penicillins Hives Also GI upset. CURRENT OUTPATIENT MEDICATIONS: benzonatate (TESSALON PERLE) 100 mg capsule Take 1 capsule by mouth three times a day as needed. albuterol HFA (VENTOLIN HFA) 90 mcg/actuation inhaler Inhale 2 Puffs as instructed every 4 hours as needed for Wheezing/Shortness of Breath. Do not replace with ProAir. esomeprazole (NEXIUM) 20 mg capsule Take 1 capsule by mouth daily before breakfast. 1/2 hr before meal. furosemide (LASIX) 20 mg tablet Take 1-2 tablets by mouth once daily as needed. hydroCHLOROthiazide 25 mg tablet Take 1 tablet by mouth once daily. ibuprofen (MOTRIN) 800 mg tablet Take 1 tablet by mouth every 8 hours as needed for pain. losartan (COZAAR) 25 mg tablet Take 1 tablet by mouth once daily. rosuvastatin (CRESTOR) 40 mg tablet Take 1 tablet by mouth once daily. verapamil ER (VERELAN) 120 mg 24 hr capsule Take 1 capsule by mouth once daily. carboxymethylcellulose (REFRESH) 0.5 % drop Use 1 drop in both eyes as needed (dry eyes). fluticasone (FLONASE) 50 mcg/actuation nasal spray Use 2 sprays in each nostril once daily. Rinse mouth after use folic acid 1 mg tablet Take 1 tablet by mouth once daily. aspirin, enteric coated (ASPIRIN, ENTERIC COATED) 81 mg EC tablet Take 1 tablet by mouth once daily. nystatin (MYCOSTATIN) 100,000 unit/mL suspension Take 5 mL by mouth four times daily. 1tsp swish in mouth for several minutes, then swallow (or expectorate) 4 times daily until gone. promethazine (PHENERGAN) 25 mg tablet Take 1 tablet by mouth every 6 hours as needed for nausea/vomiting. benzonatate (TESSALON PERLE) 100 mg capsule Take 2 capsules by mouth three times a day as needed for cough. Take 1-3 capsules by mouth every 6-8 hours as needed. potassium chloride (KLOR-CON) 20 mEq packet Take 20 mEq by mouth two times a day. fluticasone-salmeterol (ADVAIR DISKUS) 500-50 mcg/dose dsdv Inhale 1 Puff as instructed two times a day. RINSE AND GARGLE MOUTH WITH WATER AFTER EACH USE. umeclidinium (INCRUSE ELLIPTA) 62.5 mcg/actuation inhaler Inhale 1 Puff as instructed once daily. blood sugar diagnostic (BLOOD GLUCOSE TEST) test strip Test blood sugar(s) 1 times daily. Dx: (R73.9) Hyperglycemia; (R73.03) Prediabetes Insulin: No multivitamin tablet Take 1 tablet by mouth once daily. naloxone 4 mg/actuation nasal spray (NARCAN) Use 1 spray in one nostril as needed for overdose. May repeat every 2 to 3 min in alternating nostrils until medical assistance is available albuterol (PROVENTIL) 2.5 mg /3 mL (0.083 %) nebulizer solution Use 3 mL via nebulizer every 6 hours as needed for wheezing/shortness of breath. 1 vial contains 3 ml. aluminum-magnesium hydroxide-simethicone 200-200-20 mg/5 mL suspension Take 15 mL by mouth every 6 hours as needed. diclofenac (VOLTAREN) 1 % topical gel Apply 2 g to affected area four times a day as needed (upper extremity joint(s)). simethicone, chewable (WY-ACID GAS RELIEF,SIMETHICON,) 80 mg chewable tablet Take 1 tablet by mouth every 6 hours as needed. traZODone (DESYREL) 50 mg tablet Take 1 tablet by mouth at bedtime as needed. senna (SENOKOT) 8.6 mg tab Take 2 tablets by mouth twice daily. oxyCODONE-acetaminophen (PERCOCET) 7.5-325 mg tablet Take 1 tablet by mouth every 8 hours as needed for pain. rizatriptan (MAXALT) 10 mg tablet Take 10 mg by mouth as needed. May repeat in 2 hours if needed cyclobenzaprine (FLEXERIL) 10 mg tablet Take 10 mg by mouth twice daily as needed for Muscle Spasm. polyethylene glycol 3350 (MIRALAX) 17 gram/dose powder Take 17 g by mouth once daily. NOT NEEDING NOW Nebulizer NEBULIZER FOR HOME USE with supplies. DX: (J45.40) Moderate persistent asthma without complication (primary encounter diagnosis) REVIEW OF SYSTEMS: GENERAL: No fever, night sweats, weight loss or malaise. All other reviewed and negative other than HPI. PHYSICAL EXAMINATION: VITAL SIGNS: BP 83/53 Pulse 90 Temp (Src) 97.3 (Temporal) Wt 181 lb (82.1kg) SpO2 95% LMP 11/04/2012 GENERAL APPEARANCE: Well appearing, in no acute distress, alert and oriented x3, well-hydrated, well nourished. LUNGS: CTA I spent a total of 45 minutes on the date of the service which included preparing to see the patient, [id number] patient care, completing clinical documentation, obtaining and/or reviewing separately obtained history, performing a medically appropriate examination, counseling and educating the patient/family/caregiver, independently interpreting results (not separately reported), and communicating results to the patient/family/caregiver. Also review of images, plan discussed with animal care assistant, nursing. Electronically Signed: Sandoval Burgess MD April 08, 2025 documented in this encounter [facility] 03-20-2025 History of Present illness Narrative Images from the original note were not included. . Respiratory [place] Note Patient name: Lata Smith PCP: Fiona Durant MD CC: Preop bronchoscopy exam HPI: Lata Smith 64 year old female current 40 pack year smoker with PMH significant for obesity, asthma with COPD (moderate obstruction), GERD, HTN, CAD s/p PCI, stage IV non-small cell lung cancer diagnosed 2020 with mets to bones. Current therapy with Alimta and pemetrexed. Carboplatin stopped due to side effects. At [facility], inhaled therapy consists of Advair 500/50 and Incruse and encouraged compliance with proper dosing. Office visit, she has had a change in the character typical smoker's cough. She has had whooping type cough that has been persistent. She has noted scant blood-tinged mucus on rare occasions. Her cough is deep and bronchial causing right-sided chest pain from coughing. She hears wheezing at night. Her coughing is not positional in nature. She has been compliant with use of her inhaled therapy. She has not been ill any upper respiratory infection or required hospitalization. Most recent PET scan shows progression of her disease with bulky right hilar adenopathy and increased subcarinal. She now has extrinsic compression of her right middle lobe by imaging. She is scheduled for EBUS bronchoscopy on campus. Unfortunately she continues to smoke 1 pack of cigarettes a day smoking. DATA: Labs: Component Ref Range & Units 2 d ago (03/18/25) Protein, Total 6.3 - 8.0 g/dL 6.9 Albumin 3.9 - 4.9 g/dL 3.6 Low Calcium, Total 8.5 - 10.2 mg/dL 9.0 Bilirubin, Total 0.2 - 1.3 mg/dL 0.3 Alkaline Phosphatase 34 - 123 U/L 144 High AST 13 - 35 U/L 16 ALT 7 - 38 U/L 23 Glucose 74 - 99 mg/dL 131 High BUN 7 - 21 mg/dL 16 Creatinine 0.58 - 0.96 mg/dL 0.87 Sodium 136 - 144 mmol/L 136 Potassium 3.7 - 5.1 mmol/L 2.7 Low Chloride 98 - 107 mmol/L 102 CO2 22 - 30 mmol/L 22 Anion Gap 8 - 15 mmol/L 12 Estimated Glomerular Filtration Rate >=60 mL/min/1.73m 75 Component Ref Range & Units 2 d ago (03/18/25) WBC 3.70 - 11.00 k/uL 10.81 RBC 3.90 - 5.20 m/uL 4.29 Hemoglobin 11.5 - 15.5 g/dL 12.8 Hematocrit 36.0 - 46.0 % 37.6 MCV 80.0 - 100.0 fL 87.6 MCH 26.0 - 34.0 pg 29.8 MCHC 30.5 - 36.0 g/dL 34.0 RDW-CV 11.5 - 15.0 % 15.9 High Platelet Count 150 - 400 k/uL 318 MPV 9.0 - 12.7 fL 9.5 Neutrophils % % 76.1 Abs Neut 1.45 - 7.50 k/uL 8.22 High Lymphocytes % % 10.7 Abs Lymph 1.00 - 4.00 k/uL 1.16 Monocytes % % 9.7 Abs [place] <0.87 k/uL 1.05 High Eosinophils % % 2.4 Abs Eosin <0.46 k/uL 0.26 Basophils % % 0.6 Abs Baso <0.11 k/uL 0.07 Immature Granulocytes % % 0.5 Abs Immature Gran <0.10 k/uL 0.05 NRBC /100 WBC 0.0 Absolute nRBC <0.01 k/uL <0.01 Diff Type Auto Resulting Agency [facility] Imaging / Diagnostic Studies: DATE OF EXAM: Mar 09 2025 12:45PM MDP 0063 - NM PET/CT SKULL-THIGH SUBQ / Localizer Images: No additional findings. HEAD AND NECK: Head: No radiotracer avid lesion or mass effect in the imaged intracranial compartment. Aerodigestive Tract: No focal radiotracer avid lesion. Lymph Nodes: No radiotracer avid lymphadenopathy. Neck Soft Tissues: No radiotracer avid thyroid nodule. Similar size of three subcentimeter nodules with increased radiotracer uptake in the superficial parotid glands bilaterally. Reference lesions as follows: * 0.8 cm LEFT parotid nodule (SUVmax 6.1, previously 4.8; CT image 14) CHEST: Lungs & Pleura: * 1.1 x 0.9 cm medial RIGHT lower lobe solid nodule without increased radiotracer uptake (SUVmax 2.2, previously 1.5; CT image 86), stable in size and corresponding with the previously treated mass. * Few other subcentimeter nodules without increased radiotracer uptake including a 1.0 x 0.9 cm subpleural RIGHT lower lobe nodule inferiorly (CT image 123). * Enlarging RIGHT hilar paul mass with near complete RIGHT middle lobe collapse. * No new radiotracer avid mass, nodule, or consolidation. No pleural effusion. * Note, PET is often not sensitive for lung nodules smaller than 8 mm. Mediastinum & Lymph Nodes: Mixed changes in radiotracer avid mediastinal and RIGHT hilar lymphadenopathy including enlarging RIGHT hilar and subcarinal nodes and slightly decreased size of the paratracheal nodes. No new radiotracer avid lymphadenopathy. Some of the lymph nodes are difficult to accurately measure on the unenhanced CT. Reference lesions as follows: * 2.8 x 2.6 cm subcarinal node (SUVmax 13; CT image 90), previously 2.3 x 2.2 cm (previous SUVmax 24.9) * 2.4 x 1.9 cm RIGHT hilar node (SUVmax 12.9; CT image 100), previously 1.2 x 1.2 cm (previous SUVmax 14.1) Cardiovascular: Blood pool activity. No pericardial effusion. Normal heart size. Coronary artery calcifications/stents. Chest Wall: No radiotracer avid soft tissue lesion. ABDOMEN AND PELVIS: Hepatobiliary: No radiotracer avid lesion. No measurable mass. Cholecystectomy. Spleen: No radiotracer avid lesion. No splenomegaly. Pancreas: No radiotracer avid lesion. Adrenals: No radiotracer avid nodule. Urinary Tract: Physiologic radiotracer excretion in the renal collecting systems and urinary bladder. No hydronephrosis. GI Tract & Peritoneum: Segmentally increased bowel uptake is likely physiologic or secondary to medication effects (e.g. metformin), but does degrade peritoneal assessment. No focal radiotracer avid lesion. No dilated bowel or ascites. Colonic diverticulosis. Lymph Nodes: No radiotracer avid lymphadenopathy. Vasculature: Blood pool activity. Vascular calcifications without an abdominal aortic aneurysm. Pelvic Organs: No radiotracer avid lesion. Hysterectomy. MUSCULOSKELETAL: Bones: Scattered metastatic bone lesions with similar or resolved radiotracer uptake. Sites include medial RIGHT clavicular head, few levels in the spine, and bilateral pelvic bones. No new radiotracer avid lesion. Degenerative changes. Reference lesions as follows: * T9 vertebral body sclerotic lesion with resolved uptake (CT image 1:15) * RIGHT posterior iliac bone mixed lytic/sclerotic lesion (SUVmax 3.8, previously 4.7; CT image 208) * LEFT ischium sclerotic lesion (SUVmax 2.9, previously 4.7; CT image 253) Soft Tissues: New subcentimeter area of ill-defined somewhat focal radiotracer uptake in the LEFT paraspinal musculature without a CT correlate (SUVmax 3.6; CT image 137). IMPRESSION Since 09/15/2024, PRIMARY DISEASE SITE: * Treated right lower lobe pulmonary lesion without metabolically active recurrence. PAUL DISEASE: * Metabolically active intrathoracic paul metastases with enlargement of the subcarinal and right hilar lesions, the latter of which is associated with near complete right middle lobe collapse. METASTATIC DISEASE: * Treated T9 vertebral body osseous metastasis. Scattered additional osseous metastases with similar and improved metabolism. * New area of focal metabolism in the left paraspinal musculature is indeterminate but probably physiologic. * No definite new metabolically active distant metastases. 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 * Few other lung nodules without increased metabolism measuring up to 1.0 cm. 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 benzonatate (TESSALON PERLE) 100 mg capsule Take 1 capsule by mouth three times a day as needed. albuterol HFA (VENTOLIN HFA) 90 mcg/actuation inhaler Inhale 2 Puffs as instructed every 4 hours as needed for Wheezing/Shortness of Breath. Do not replace with ProAir. esomeprazole (NEXIUM) 20 mg capsule Take 1 capsule by mouth daily before breakfast. 1/2 hr before meal. furosemide (LASIX) 20 mg tablet Take 1-2 tablets by mouth once daily as needed. hydroCHLOROthiazide 25 mg tablet Take 1 tablet by mouth once daily. ibuprofen (MOTRIN) 800 mg tablet Take 1 tablet by mouth every 8 hours as needed for pain. losartan (COZAAR) 25 mg tablet Take 1 tablet by mouth once daily. rosuvastatin (CRESTOR) 40 mg tablet Take 1 tablet by mouth once daily. verapamil ER (VERELAN) 120 mg 24 hr capsule Take 1 capsule by mouth once daily. carboxymethylcellulose (REFRESH) 0.5 % drop Use 1 drop in both eyes as needed (dry eyes). fluticasone (FLONASE) 50 mcg/actuation nasal spray Use 2 sprays in each nostril once daily. Rinse mouth after use folic acid 1 mg tablet Take 1 tablet by mouth once daily. aspirin, enteric coated (ASPIRIN, ENTERIC COATED) 81 mg EC tablet Take 1 tablet by mouth once daily. nystatin (MYCOSTATIN) 100,000 unit/mL suspension Take 5 mL by mouth four times daily. 1tsp swish in mouth for several minutes, then swallow (or expectorate) 4 times daily until gone. promethazine (PHENERGAN) 25 mg tablet Take 1 tablet by mouth every 6 hours as needed for nausea/vomiting. benzonatate (TESSALON PERLE) 100 mg capsule Take 2 capsules by mouth three times a day as needed for cough. Take 1-3 capsules by mouth every 6-8 hours as needed. potassium chloride (KLOR-CON) 20 mEq packet Take 20 mEq by mouth two times a day. fluticasone-salmeterol (ADVAIR DISKUS) 500-50 mcg/dose dsdv Inhale 1 Puff as instructed two times a day. RINSE AND GARGLE MOUTH WITH WATER AFTER EACH USE. umeclidinium (INCRUSE ELLIPTA) 62.5 mcg/actuation inhaler Inhale 1 Puff as instructed once daily. blood sugar diagnostic (BLOOD GLUCOSE TEST) test strip Test blood sugar(s) 1 times daily. Dx: (R73.9) Hyperglycemia; (R73.03) Prediabetes Insulin: No multivitamin tablet Take 1 tablet by mouth once daily. naloxone 4 mg/actuation nasal spray (NARCAN) Use 1 spray in one nostril as needed for overdose. May repeat every 2 to 3 min in alternating nostrils until medical assistance is available albuterol (PROVENTIL) 2.5 mg /3 mL (0.083 %) nebulizer solution Use 3 mL via nebulizer every 6 hours as needed for wheezing/shortness of breath. 1 vial contains 3 ml. aluminum-magnesium hydroxide-simethicone 200-200-20 mg/5 mL suspension Take 15 mL by mouth every 6 hours as needed. diclofenac (VOLTAREN) 1 % topical gel Apply 2 g to affected area four times a day as needed (upper extremity joint(s)). simethicone, chewable (WY-ACID GAS RELIEF,SIMETHICON,) 80 mg chewable tablet Take 1 tablet by mouth every 6 hours as needed. traZODone (DESYREL) 50 mg tablet Take 1 tablet by mouth at bedtime as needed. senna (SENOKOT) 8.6 mg tab Take 2 tablets by mouth twice daily. oxyCODONE-acetaminophen (PERCOCET) 7.5-325 mg tablet Take 1 tablet by mouth every 8 hours as needed for pain. rizatriptan (MAXALT) 10 mg tablet Take 10 mg by mouth as needed. May repeat in 2 hours if needed cyclobenzaprine (FLEXERIL) 10 mg tablet Take 10 mg by mouth twice daily as needed for Muscle Spasm. polyethylene glycol 3350 (MIRALAX) 17 gram/dose powder Take 17 g by mouth once daily. NOT NEEDING NOW Nebulizer NEBULIZER FOR HOME USE with supplies. DX: (J45.40) Moderate persistent asthma without complication (primary encounter diagnosis) Social History Tobacco Use Smoking status: Every Day Current packs/day: 1.50 Average packs/day: 2.0 packs/day for 43.0 years (85.5 ttl pk-yrs) Types: Cigarettes Start date: 03/08/2024 Smokeless tobacco: Never Tobacco comments: Was down to 1PPD then 3cig per week but back to 1PPD Vaping Use Vaping status: Some Days Substances: THC Substance Use Topics Alcohol use: Yes Comment: Occasional glass of wine. A few per month Drug use: Yes Types: Marijuana Comment: every 2-3 days FAMILY HISTORY Problem Relation Age of Onset Alzheimer's Disease Father Blood Disease Mother other (lung cancer) Brother 3rd brother, small cell Cerebral Embolism Brother oldest brother, aneurysm Cancer Brother 2nd brother, some type of skin cancer Diabetes Maternal Grandmother No Ocular Disease No Family History PAST SURGICAL HISTORY Procedure Laterality Date CHOLECYSTECTOMY Cholecystectomy COLONOSCOPY FLX DX W/COLLJ SPEC WHEN PFRMD 11/20/2012 Colonoscopy F TOTAL ABDOMINAL HYSTERECTOMY 05/2013 INCISE FINGER TENDON SHEATH Right 07/21/2021 Right ring trigger finger release INCISE FINGER TENDON SHEATH Left 02/26/2023 Left ring trigger finger release LAPAROSCOPIC APPENDECTOMY 02/17/2015 LIG/TRNSXJ FLP TUBE ABDL/VAG APPR UNI/BI 1982 Tubal ligation NEUROPLASTY &/TRANSPOS MEDIAN NRV CARPAL TUNNE 04/29/2004 Carpal tunnel decomp,left NEUROPLASTY &/TRANSPOS MEDIAN NRV CARPAL TUNNE 05/17/2004 Carpal tunnel decomp, right JARODASURE PAST SURGICAL HISTORY OF cardiac stents PMH, Social history, family history and surgical history reviewed and updated in EMR REVIEW OF SYSTEMS: CONSTITUTIONAL: No fevers, chills, nightsweats, unintended weight loss HEENT: Denies headaches, nasal congestion/sinus symptoms, postnasal drip EYES: Intermittent blurred vision CARDIOVASCULAR: Positive right sided chest pain, dyspnea. No palpitations or edema PULM: See HPI GI: Dysphagia NEURO: No new balance problems, peripheral weakness/paresthesias or numbness of concern. PSY: No concerns regarding depression, anxiety INTEGUMENTARY: No new skin changes PHYSICAL EXAMINATION: BP 92/58 Pulse 91 Resp 14 Wt 188 lb (85.3kg) SpO2 94% LMP 11/04/2012 General Appearance: Obese female, NAD. Skin: Skin color, texture, turgor normal, no suspicious rashes or lesions. Head: Normocephalic, no masses, lesions, tenderness or abnormalities. Eyes: Sclera, conjunctiva normal. Normal pupils. Oropharynx: No oral lesions or thrush Neck: No masses or adenopathy. Lungs: Not labored, normal to percussion, no wheezes. Heart: Regular rate and rhythm, no murmurs. Extremities: No edema or clubbing. Assessment/Plan: 1. Lung cancer, right, mets to bones -Active treatment plan per oncology -PET scan shows progression of disease -Pending EBUS/bronchoscopy. Will need potassium supplementation 2. Lymphadenopathy -Progression of mediastinal and hilar adenopathy resulting in right middle lobe atelectasis 3. Moderate COPD, GOLD stage 2 - Change in character of cough likely related to her new atelectasis rather than progression of her COPD -Smoking cessation strongly encouraged but patient has no desire to quit smoking -Continue triple inhaler therapy 4. Cigarette smoker -Current smoker with sequelae of cancer and COPD -Absolutely needs to stop smoking we discussed this today. As stated above she has no desire to quit 5. Hypokalemia -Potassium 2.7. Patient needs supplementation. Messaged primary care physician Georgina Morgna MD Respiratory [place] documented in this encounter [facility] 03-19-2025 Telephone encounter Note Detailed Message left on voicemail, also informed to check her my chart. Hoa Gaines LPN [facility] 03-19-2025 Miscellaneous Notes Detailed Message left on voicemail, also informed to check her my chart. Hoa Gaines LPN Message left on pt. Voicemail to contact office concerning previous note from Dr. Burgess. Hoa Gaines LPN call pt let her know main campus will be reaching out to schedule the bronchoscopy? Per Dr. Aditya Gaines LPN documented in this encounter [facility] 03-19-2025 History of Present illness Narrative Bronchoscopy Request: Cleared for scheduling March 19, 2025 Please schedule patient for the following: Diagnostic EBUS NEEDS Follow-up visit (Saw Georgina Morgan in the past) Note to receptionist scheduler: Check with ANNETTA before scheduling- there is 2 brronch request for this patient- asking for clarification Clinical Trial Candidate: No Visit and Bronchoscopy: Different Day Time Allotment/Tier: TIER 1: I HOUR Physician Performing Bronchoscopy: Bronch A, B or C Anesthesia Type: General Special Requests: None Needs Labs: No Needs EKG: Yes Needs CT prior: No Does the pt need cardiac clearance? No Is he/she on anticoagulants/anti-plt therapy? No Nursing Considerations: (ie: [place] [facility], TB, respiratory isolation, etc.) none Diagnosis/Reason for Bronchoscopy: History adenocarcinoma, recent PET suggests mediastinal recurrence. Need tissue from on positive lymph node. Referred by: Aditya Reviewed by: PORTILLO Willis MD March 19, 2025 1:28 PM Addendum: CBC with diff: WBC 10.81 03/18/2025 RBC 4.29 03/18/2025 Hemoglobin 12.8 03/18/2025 Hematocrit 37.6 03/18/2025 MCV 87.6 03/18/2025 MCH 29.8 03/18/2025 MCHC 34.0 03/18/2025 RDW-CV 15.9 03/18/2025 Platelet Count 318 03/18/2025 MPV 9.5 03/18/2025 Neut% 76.1 03/18/2025 Lymph% 10.7 03/18/2025 [place]% 9.7 03/18/2025 Eosin% 2.4 03/18/2025 Baso% 0.6 03/18/2025 Abs Neut (ANC) 8.22 03/18/2025 Abs [place] 1.05 03/18/2025 Abs Eosin 0.26 03/18/2025 Abs Baso 0.07 03/18/2025 Potassium Date Value Ref Range Status 03/18/2025 2.7 (L) 3.7 - 5.1 mmol/L Final 02/24/2025 2.8 (L) 3.7 - 5.1 mmol/L Final 02/04/2025 3.7 3.7 - 5.1 mmol/L Final Sodium Date Value Ref Range Status 03/18/2025 136 136 - 144 mmol/L Final 02/24/2025 137 136 - 144 mmol/L Final 02/04/2025 140 136 - 144 mmol/L Final BUN Date Value Ref Range Status 03/18/2025 16 7 - 21 mg/dL Final Creatinine Date Value Ref Range Status 03/18/2025 0.87 0.58 - 0.96 mg/dL Final documented in this encounter [facility] 03-19-2025 Telephone encounter Note Message left on pt. Voicemail to contact office concerning previous note from Dr. Burgess. Hoa Gaines LPN [facility] 03-19-2025 Telephone encounter Note call pt let her know main campus will be reaching out to schedule the bronchoscopy? Per Dr. Aditya Gaines LPN [facility] 03-19-2025 Note HNO ID: [id number] Author: HERIBERTO WELDON MD Service: ? Author Type: Physician Type: Progress Notes Filed: 03/19/2025 12:04 Note Text: Bronchoscopy Request: Please schedule patient for the following: Bronchoscopy Procedures: EBUS diagnostic Pre-Procedure visit required: Yes Visit type: HANDP w/Established Patient Anticipated Procedure Date: TBD Physician Performing Bronchoscopy: TBD Needs Labs: No Needs EKG: Yes Needs CT: No Does the pt need cardiac clearance? No Is patient on anticoagulants/anti-plt therapy? No Is patient on GLP-1 agonsits (ie Ozempic, Mounjaro, Trulicity, etc)? No Is patient on SGLT2 inhibitors (?-flozin? drugs - Jardiance, etc)? No PACC visit needed No Diagnosis/Reason for Bronchoscopy: History adenocarcinoma, recent PET suggests mediastinal recurrence Referred by: Aditya Reviewed by: NATACHA Weldon MD March 19, 2025 11:57 AM [facility] 03-19-2025 History of Present illness Narrative Bronchoscopy Request: Please schedule patient for the following: Bronchoscopy Procedures: EBUS diagnostic Pre-Procedure visit required: Yes Visit type: H&P w/Established Patient Anticipated Procedure Date: TBD Physician Performing Bronchoscopy: TBD Needs Labs: No Needs EKG: Yes Needs CT: No Does the pt need cardiac clearance? No Is patient on anticoagulants/anti-plt therapy? No Is patient on GLP-1 agonsits (ie Ozempic, Mounjaro, Trulicity, etc)? No Is patient on SGLT2 inhibitors ( -flozin drugs - Jardiance, etc)? No PACC visit needed No Diagnosis/Reason for Bronchoscopy: History adenocarcinoma, recent PET suggests mediastinal recurrence Referred by: Aditya Reviewed by: NATACHA Weldon MD March 19, 2025 11:57 AM documented in this encounter [facility] 03-19-2025 Telephone encounter Note Schedule updated. Deb Hoover LPN [facility] 03-19-2025 Miscellaneous Notes Schedule updated. Deb Hoover LPN Visit Disposition Check-out Note Hold chemo tomorrow documented in this encounter [facility] 03-19-2025 Telephone encounter Note Visit Disposition Check-out Note Hold chemo tomorrow [facility] Work Phone: 03-18-2025 History of Present illness Narrative (Elements copied from my note dated February 04, 2025, have been reviewed and updated where appropriate, and all reflect current assessment and medical decision making from today's encounter, March 18, 2025) HISTORY OF PRESENT ILLNESS: Lata Smith is a 64 year old female who presented with worsening shortness of breath and hemoptysis for several months. Patient was seen in primary care clinic in May was treated with antibiotic without improvement. She was seen by Dr. Castillo and a CT chest revealed a lung mass and mediastinal adenopathy. She had no fever Chills, rigor, pleuritic chest pain, chest trauma. She has stable exertional dyspnea with activities of daily living, and exertional wheezing. She also complained of severe right hip pain along with pressure on her right side of her chest for couple months. Her staging PET scan on 08/03/2020 unfortunately showed metastatic disease. She had bronchoscopy and EBUS biopsy of the mediastinal lymph node on 08/19/2020. Biopsy was consistent with non-small cell, favoring adenocarcinoma the lung. She is here today to discuss treatment option for metastatic lung cancer. Patient is lives with an adult son. She is quit smoking since October after her heart attack. She denied any any weight loss since her heart attack. She has no hoarseness or dysphagia. No headaches or neurological symptoms. She has severe right hip pain secondary to metastatic disease. MRI scan of brain shows no evidence of metastatic disease. She completed palliative radiation therapy to her right hip. Prior therapies: Pembrolizumab till Zometa till November 2023 Current therapy: 1) Carboplatin pemetrexed from 10-30-24 to present. 2) Zometa done, completed 3 years in November 2023 I ran her case by med onc and rad onc at [facility], their review suggests stability of disease, they recommend observation, possible SBRT to lung if we see further growth of right lung nodule. PET scan from we see progression in chest, new thoracic spine metastasis Reviewed Guardant results, no actionable mutations applicable to non small cell lung cancer. Here for follow up, cycle 2 planned. Bad experience with cycle 1, was in bed for a month with fatigue, no energy, no appetite. Nausea but no vomiting. Now eating well. Carboplatin stopped, continuing with SA alimta Follow up 02-04-25 Doing well, cough, produces clear mucus. Reviewed PET, respone to treatment seen in osseous structures, but hilar and mediastinal uptake is increased. 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 Hold alimta. 2. Message sent to [facility] re possible EBUS, chest node biopsy Written and verbal health teaching given to patient, patient verbalizes understanding and agrees with treatment plan. 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 Hypertension Irritable bowel syndrome Migraine without aura Obesity, unspecified Other forms of migraine ST elevation myocardial infarction involving right coronary artery (HCC) 06/28/2020 Tobacco use disorder PAST SURGICAL HISTORY Procedure Laterality Date CHOLECYSTECTOMY Cholecystectomy COLONOSCOPY FLX DX W/COLLJ SPEC WHEN PFRMD 11/20/2012 Colonoscopy F TOTAL ABDOMINAL HYSTERECTOMY 05/2013 INCISE FINGER TENDON SHEATH Right 07/21/2021 Right ring trigger finger release INCISE FINGER TENDON SHEATH Left 02/26/2023 Left ring trigger finger release LAPAROSCOPIC APPENDECTOMY 02/17/2015 LIG/TRNSXJ FLP TUBE ABDL/VAG APPR UNI/BI 1982 Tubal ligation NEUROPLASTY &/TRANSPOS MEDIAN NRV CARPAL TUNNE 04/29/2004 Carpal tunnel decomp,left NEUROPLASTY &/TRANSPOS MEDIAN NRV CARPAL TUNNE 05/17/2004 Carpal tunnel decomp, right NOVASURE PAST SURGICAL HISTORY OF cardiac stents FAMILY HISTORY Problem Relation Age of Onset Alzheimer's Disease Father Blood Disease Mother other (lung cancer) Brother 3rd brother, small cell Cerebral Embolism Brother oldest brother, aneurysm Cancer Brother 2nd brother, some type of skin cancer Diabetes Maternal Grandmother No Ocular Disease No Family History Social History Tobacco Use Smoking status: Every Day Current packs/day: 1.50 Average packs/day: 2.0 packs/day for 43.0 years (85.5 ttl pk-yrs) Types: Cigarettes Start date: 03/08/2024 Smokeless tobacco: Never Tobacco comments: Was down to 1PPD then 3cig per week but back to 1PPD Vaping Use Vaping status: Some Days Substances: THC Substance Use Topics Alcohol use: Yes Comment: Occasional glass of wine. A few per month Drug use: Yes Types: Marijuana Comment: every 2-3 days ALLERGIES: ALLERGIES Allergen Reactions Augmentin [Amoxicil* Diarrhea Tolerates plain penicillins such as amoxicillin Penicillins Hives Also GI upset. CURRENT OUTPATIENT MEDICATIONS: albuterol HFA (VENTOLIN HFA) 90 mcg/actuation inhaler Inhale 2 Puffs as instructed every 4 hours as needed for Wheezing/Shortness of Breath. Do not replace with ProAir. esomeprazole (NEXIUM) 20 mg capsule Take 1 capsule by mouth daily before breakfast. 1/2 hr before meal. furosemide (LASIX) 20 mg tablet Take 1-2 tablets by mouth once daily as needed. hydroCHLOROthiazide 25 mg tablet Take 1 tablet by mouth once daily. ibuprofen (MOTRIN) 800 mg tablet Take 1 tablet by mouth every 8 hours as needed for pain. losartan (COZAAR) 25 mg tablet Take 1 tablet by mouth once daily. rosuvastatin (CRESTOR) 40 mg tablet Take 1 tablet by mouth once daily. verapamil ER (VERELAN) 120 mg 24 hr capsule Take 1 capsule by mouth once daily. carboxymethylcellulose (REFRESH) 0.5 % drop Use 1 drop in both eyes as needed (dry eyes). fluticasone (FLONASE) 50 mcg/actuation nasal spray Use 2 sprays in each nostril once daily. Rinse mouth after use folic acid 1 mg tablet Take 1 tablet by mouth once daily. aspirin, enteric coated (ASPIRIN, ENTERIC COATED) 81 mg EC tablet Take 1 tablet by mouth once daily. nystatin (MYCOSTATIN) 100,000 unit/mL suspension Take 5 mL by mouth four times daily. 1tsp swish in mouth for several minutes, then swallow (or expectorate) 4 times daily until gone. promethazine (PHENERGAN) 25 mg tablet Take 1 tablet by mouth every 6 hours as needed for nausea/vomiting. benzonatate (TESSALON PERLE) 100 mg capsule Take 2 capsules by mouth three times a day as needed for cough. Take 1-3 capsules by mouth every 6-8 hours as needed. potassium chloride (KLOR-CON) 20 mEq packet Take 20 mEq by mouth two times a day. fluticasone-salmeterol (ADVAIR DISKUS) 500-50 mcg/dose dsdv Inhale 1 Puff as instructed two times a day. RINSE AND GARGLE MOUTH WITH WATER AFTER EACH USE. umeclidinium (INCRUSE ELLIPTA) 62.5 mcg/actuation inhaler Inhale 1 Puff as instructed once daily. blood sugar diagnostic (BLOOD GLUCOSE TEST) test strip Test blood sugar(s) 1 times daily. Dx: (R73.9) Hyperglycemia; (R73.03) Prediabetes Insulin: No multivitamin tablet Take 1 tablet by mouth once daily. naloxone 4 mg/actuation nasal spray (NARCAN) Use 1 spray in one nostril as needed for overdose. May repeat every 2 to 3 min in alternating nostrils until medical assistance is available albuterol (PROVENTIL) 2.5 mg /3 mL (0.083 %) nebulizer solution Use 3 mL via nebulizer every 6 hours as needed for wheezing/shortness of breath. 1 vial contains 3 ml. aluminum-magnesium hydroxide-simethicone 200-200-20 mg/5 mL suspension Take 15 mL by mouth every 6 hours as needed. diclofenac (VOLTAREN) 1 % topical gel Apply 2 g to affected area four times a day as needed (upper extremity joint(s)). simethicone, chewable (WY-ACID GAS RELIEF,SIMETHICON,) 80 mg chewable tablet Take 1 tablet by mouth every 6 hours as needed. traZODone (DESYREL) 50 mg tablet Take 1 tablet by mouth at bedtime as needed. senna (SENOKOT) 8.6 mg tab Take 2 tablets by mouth twice daily. oxyCODONE-acetaminophen (PERCOCET) 7.5-325 mg tablet Take 1 tablet by mouth every 8 hours as needed for pain. rizatriptan (MAXALT) 10 mg tablet Take 10 mg by mouth as needed. May repeat in 2 hours if needed cyclobenzaprine (FLEXERIL) 10 mg tablet Take 10 mg by mouth twice daily as needed for Muscle Spasm. polyethylene glycol 3350 (MIRALAX) 17 gram/dose powder Take 17 g by mouth once daily. NOT NEEDING NOW Nebulizer NEBULIZER FOR HOME USE with supplies. DX: (J45.40) Moderate persistent asthma without complication (primary encounter diagnosis) REVIEW OF SYSTEMS: GENERAL: No fever, night sweats, weight loss or malaise. All other reviewed and negative other than HPI. PHYSICAL EXAMINATION: VITAL SIGNS: BP 90/58 Pulse 94 Temp (Src) 97.8 (Temporal) Wt 188 lb (85.3kg) SpO2 93% LMP 11/04/2012 GENERAL APPEARANCE: Well appearing, in no acute distress, alert and oriented x3, well-hydrated, well nourished. LUNGS: CTA I spent a total of 30 minutes on the date of the service which included preparing to see the patient, [id number] patient care, completing clinical documentation, obtaining and/or reviewing separately obtained history, performing a medically appropriate examination, counseling and educating the patient/family/caregiver, independently interpreting results (not separately reported), and communicating results to the patient/family/caregiver. Also review of images, plan discussed with animal care assistant, nursing. Electronically Signed: Sadnoval Burgess MD March 18, 2025 documented in this encounter [facility] 03-09-2025 History of Present illness Narrative RADIOLOGY SERVICE PROGRESS NOTE SERVICE DATE: 03/09/2025 SERVICE TIME: 11:53 AM PATIENT IDENTITY VERIFICATION COMPLETED USING TWO (2) STANDARD IDENTIFIERS: Name and Date of confirmed by patient verbally FALL SCREENING: Has the patient had 2 falls in the last year or 1 fall with injury or currently using an Ambulatory Assistive Device (Walker, Cane, Wheelchair, Crutches, etc.)? No PATIENT GENDER DATA: .female ALLERGIES: NA MEDICATIONS REVIEWED: Not applicable PATIENT RELEVANT IMPLANT DATA REVIEWED: Not Applicable PATIENT PRESENTS WITH AN IMPLANTABLE OR ATTACHED SPAR FINISHER: No CREATININE: Creatinine Date Value Ref Range Status 02/24/2025 0.71 0.58 - 0.96 mg/dL Final 02/04/2025 0.74 0.58 - 0.96 mg/dL Final 01/13/2025 0.78 0.58 - 0.96 mg/dL Final Estimated Glomerular Filtration Rate Date Value Ref Range Status 02/24/2025 96 >=60 mL/min/1.73m Final Comment: Estimated Glomerular Filtration Rate (eGFR) is calculated using the 2020 CKD-EPI creatinine equation. This equation utilizes serum creatinine, sex, and age as parameters. The creatinine assay has traceable calibration to isotope dilution-mass spectrometry. Refer to KDIGO guidelines for clinical interpretation. In patients with unstable renal function, e.g. those with acute kidney injury, the eGFR may not accurately reflect actual GFR. eGFR- Date Value Ref Range Status 11/22/2021 >60 Final P.O.C.T. RESULTS: N/A March 09, [address] PERFORMED: No IV SITE: Ambulatory: NM only - direct IV injection in the Right antecubital site POST EXAM PIV STATUS: Discontinued PROCEDURE TYPE: NM INJECT: PET/CT BODY SCAN. 15.9 mCi F18 FDG. Administered By: MO . No other medications given.. ADMINISTRATION TIME: 1148 PATIENT DISCHARGED TO: Ambulatory patient, left NM department area. Is this a therapy: No A Diagnostic radioactive procedure has taken place, with no further precautions necessary other than routine body substance precautions. More information regarding radiation safety can be found using this link: [email or web address]%20N uclear%20Medicine%20Procedures.p df SIGNATURE: FLIP Limon) PATIENT NAME: Lata Smith DATE: March 09, 2025 TIME: 11:53 AM PAGER/CONTACT #: documented in this encounter [facility] 03-09-2025 Miscellaneous Notes Encounter addended by: Geronimo Beard RT(R) on: 03/09/2025 12:09 PM Actions taken: Allergies reviewed documented in this encounter [facility] 03-09-2025 Note Encounter addended b y: Geronimo Beard RT(R) on: 03/09/2025 12:09 PM Actions taken: Allergies reviewed [facility] 03-09-2025 Note HNO ID: [id number] Author: GERONIMO BEARD RT (R) Service: Nuclear Medicine Author Type: Technologist Type: Progress Notes Filed: 03/09/2025 11:54 Note Text: RADIOLOGY SERVICE PROGRESS NOTE SERVICE DATE: 03/09/2025 SERVICE TIME: 11:53 AM PATIENT IDENTITY VERIFICATION COMPLETED USING TWO (2) STANDARD IDENTIFIERS: Name and Date of confirmed by patient verbally FALL SCREENING: Has the patient had 2 falls in the last year or 1 fall with injury or currently using an Ambulatory Assistive Device (Walker, Cane, Wheelchair, Crutches, etc.)? No PATIENT GENDER DATA: .female ALLERGIES: NA MEDICATIONS REVIEWED: Not applicable PATIENT RELEVANT IMPLANT DATA REVIEWED: Not Applicable PATIENT PRESENTS WITH AN IMPLANTABLE OR ATTACHED SPAR FINISHER: No CREATININE: Creatinine Date Value Ref Range Status 02/24/2025 0.71 0.58 - 0.96 mg/dL Final 02/04/2025 0.74 0.58 - 0.96 mg/dL Final 01/13/2025 0.78 0.58 - 0.96 mg/dL Final Estimated Glomerular Filtration Rate Date Value Ref Range Status 02/24/2025 96 >=60 mL/min/1.73m? Final Comment: Estimated Glomerular Filtration Rate (eGFR) is calculated using the 2020 CKD-EPI creatinine equation. This equation utilizes serum creatinine, sex, and age as parameters. The creatinine assay has traceable calibration to isotope dilution-mass spectrometry. Refer to KDIGO guidelines for clinical interpretation. In patients with unstable renal function, e.g. those with acute kidney injury, the eGFR may not accurately reflect actual GFR. eGFR- Date Value Ref Range Status 11/22/2021 >60 Final P.O.C.T. RESULTS: N/A March 09, [address] PERFORMED: No IV SITE: Ambulatory: ID only - direct IV injection in the Right antecubital site POST EXAM PIV STATUS: Discontinued PROCEDURE TYPE: NM INJECT: PET/CT BODY SCAN. 15.9 mCi F18 FDG. Administered By: MO . No other medications given.. ADMINISTRATION TIME: 1148 PATIENT DISCHARGED TO: Ambulatory patient, left ID department area. Is this a therapy: No A Diagnostic radioactive procedure has taken place, with no further precautions necessary other than routine body substance precautions. More information regarding radiation safety can be found using this link: [email or web address] [email or web address]-% 20Diagnostic%20Nuclear%20Medicin e%20Procedures.pdf SIGNATURE: RT Ashly(R) PATIENT NAME: Lata Smith DATE: March 09, 2025 TIME: 11:53 AM PAGER/CONTACT #: [facility] 02-25-2025 History of Present illness Narrative This note was created using Zairgeriter. Subjective Lata Smith is a 64 year old female. Patient presents with: Follow Up: 3 month follow up- med refills needed Lata is a 64-year-old female with a history of migraines, presenting for a 3-month follow-up and medication refills. Lata reports an increase in the frequency of lightning flashes in her eyes, which she has experienced previously. These episodes last between 5 to 20 minutes and are sometimes followed by headaches, approximately 50% of the time. She also reports 5 episodes of blurred vision, one of which was accompanied by a near-syncope episode. She has a head CT scan scheduled for tomorrow to investigate these symptoms further. She has a history of migraines with aura. Lata also reports symptoms of allergic rhinitis, including sneezing and watery eyes, which she attributes to seasonal allergies. She is not currently using Flonase routinely. Additionally, she notes that her eyes sometimes produce thick tears. She is currently taking multiple medications, including albuterol, esomeprazole, furosemide, hydrochlorothiazide, ibuprofen, losartan, rosuvastatin, and verapamil. She also uses Tylenol with codeine for severe cough, with the last prescription being filled last year. She denies any issues with constipation from the Tylenol with codeine. 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 Do not replace with ProAir. esomeprazole (NEXIUM) 20 mg capsule Take 1 capsule by mouth daily before breakfast. 1/2 hr before meal. furosemide (LASIX) 20 mg tablet Take 1-2 tablets by mouth once daily as needed. hydroCHLOROthiazide 25 mg tablet Take 1 tablet by mouth once daily. ibuprofen (MOTRIN) 800 mg tablet Take 1 tablet by mouth every 8 hours as needed for pain. losartan (COZAAR) 25 mg tablet Take 1 tablet by mouth once daily. rosuvastatin (CRESTOR) 40 mg tablet Take 1 tablet by mouth once daily. verapamil ER (VERELAN) 120 mg 24 hr capsule Take 1 capsule by mouth once daily. carboxymethylcellulose (REFRESH) 0.5 % drop Use 1 drop in both eyes as needed (dry eyes). fluticasone (FLONASE) 50 mcg/actuation nasal spray Use 2 sprays in each nostril once daily. Rinse mouth after use folic acid 1 mg tablet Take 1 tablet by mouth once daily. aspirin, enteric coated (ASPIRIN, ENTERIC COATED) 81 mg EC tablet Take 1 tablet by mouth once daily. nystatin (MYCOSTATIN) 100,000 unit/mL suspension Take 5 mL by mouth four times daily. 1tsp swish in mouth for several minutes, then swallow (or expectorate) 4 times daily until gone. promethazine (PHENERGAN) 25 mg tablet Take 1 tablet by mouth every 6 hours as needed for nausea/vomiting. benzonatate (TESSALON PERLE) 100 mg capsule Take 2 capsules by mouth three times a day as needed for cough. Take 1-3 capsules by mouth every 6-8 hours as needed. potassium chloride (KLOR-CON) 20 mEq packet Take 20 mEq by mouth two times a day. fluticasone-salmeterol (ADVAIR DISKUS) 500-50 mcg/dose dsdv Inhale 1 Puff as instructed two times a day. RINSE AND GARGLE MOUTH WITH WATER AFTER EACH USE. umeclidinium (INCRUSE ELLIPTA) 62.5 mcg/actuation inhaler Inhale 1 Puff as instructed once daily. blood sugar diagnostic (BLOOD GLUCOSE TEST) test strip Test blood sugar(s) 1 times daily. Dx: (R73.9) Hyperglycemia; (R73.03) Prediabetes Insulin: No multivitamin tablet Take 1 tablet by mouth once daily. naloxone 4 mg/actuation nasal spray (NARCAN) Use 1 spray in one nostril as needed for overdose. May repeat every 2 to 3 min in alternating nostrils until medical assistance is available albuterol (PROVENTIL) 2.5 mg /3 mL (0.083 %) nebulizer solution Use 3 mL via nebulizer every 6 hours as needed for wheezing/shortness of breath. 1 vial contains 3 ml. aluminum-magnesium hydroxide-simethicone 200-200-20 mg/5 mL suspension Take 15 mL by mouth every 6 hours as needed. diclofenac (VOLTAREN) 1 % topical gel Apply 2 g to affected area four times a day as needed (upper extremity joint(s)). simethicone, chewable (WY-ACID GAS RELIEF,SIMETHICON,) 80 mg chewable tablet Take 1 tablet by mouth every 6 hours as needed. traZODone (DESYREL) 50 mg tablet Take 1 tablet by mouth at bedtime as needed. senna (SENOKOT) 8.6 mg tab Take 2 tablets by mouth twice daily. oxyCODONE-acetaminophen (PERCOCET) 7.5-325 mg tablet Take 1 tablet by mouth every 8 hours as needed for pain. rizatriptan (MAXALT) 10 mg tablet Take 10 mg by mouth as needed. May repeat in 2 hours if needed cyclobenzaprine (FLEXERIL) 10 mg tablet Take 10 mg by mouth twice daily as needed for Muscle Spasm. polyethylene glycol 3350 (MIRALAX) 17 gram/dose powder Take 17 g by mouth once daily. NOT NEEDING NOW Nebulizer NEBULIZER FOR HOME USE with supplies. DX: (J45.40) Moderate persistent asthma without complication (primary encounter diagnosis) No current facility-administered medications for this visit. Review of Systems Objective BP 138/60 (BP Site: Left Arm, BP Position: Sitting, BP Cuff Size: Large Adult) Pulse 83 Temp 36.9 C (98.4 F) (Temporal) Resp 18 Ht 154.9 cm (5' 1) Wt 87.3 kg (192 lb 7.4 oz) LMP 11/04/2012 SpO2 95% BMI 36.37 kg/m Physical Exam Constitutional: Appearance: Normal appearance. HENT: Head: Normocephalic. Eyes: Conjunctiva/sclera: Conjunctivae normal. Cardiovascular: Rate and Rhythm: Normal rate and regular rhythm. Heart sounds: Normal heart sounds. Pulmonary: Effort: Pulmonary effort is normal. Breath sounds: Normal breath sounds. Musculoskeletal: Right lower leg: Edema (trace pretibial) present. Left lower le+ Pitting Edema present. Skin: General: Skin is warm and dry. Neurological: General: No focal deficit present. Mental Status: She is alert and oriented to person, place, and time. Psychiatric: Mood and Affect: Mood normal. Behavior: Behavior normal. Thought Content: Thought content normal. Judgment: Judgment normal. Assessment and Plan # Cough (R05.9) - Refilled Tylenol with codeine 42 tablets for severe cough; no issues with constipation reported. # Ocular migraine (G43.109) # Migraine with aura and without status migrainosus, not intractable (G43.109) - Experiencing increased frequency of lightning flashes in eyes, sometimes followed by headaches. - Episodes last between 5-20 minutes, with approximately 50% leading to headaches. - Scheduled for a head CT scan tomorrow to rule out structural abnormalities. - Advised that if CT is normal, treatment will focus on migraine management. - Encouraged rest during episodes; follow-up after CT results. # Allergic rhinitis, unspecified seasonality, unspecified trigger (J30.9) - Symptoms include sneezing and watery eyes. - Refilled Flonase; instructed to use routinely for optimal control. - Discussed potential for dry eyes contributing to symptoms; prescribed Refresh Plus lubricating eye drops. # Coronary artery disease involving cheesh-na coronary artery of cheesh-na heart without angina pectoris (I25.10) - Clinically stable. - Continue current medications: losartan, rosuvastatin, and verapamil. # 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) (C34.90) - Undergoing treatment with oncology; next treatment scheduled for tomorrow. - PET scan scheduled for March 09. - Recent labs reviewed; no anemia, WBC and platelets within normal limits. - Mildly elevated liver function tests and blood glucose; low potassium being managed by oncology. - Follow-up appointments scheduled for May and September. # History of [place] (myocardial infarction) (I25.2) - Clinically stable. - Continue current medications: losartan, rosuvastatin, and verapamil. Fiona Durant MD Recording using TRAKLOK software for draft documentation of the visit was discussed with the patient/authorized customer service representative; all questions welcomed and answered. Patient/authorized customer service representative agreed to proceed documented in this encounter [facility] 02-06-2025 Telephone encounter Note Spoke with patient and scheduled Pet Scan at [place] on 03/09 Maylin Haley [facility] 02-06-2025 Miscellaneous Notes Spoke with patient and scheduled Pet Scan at [place] on 03/[address] Burgess is ok with March 09. Oneida Amaro RN Dr. Burgess's patient. Telly Duncan DO Patient called back to schedule. Patient will only travel to [place]. Next opening isn't till March 09, Please advise LVM for pt to call back and schedule PET and OV. Shahnaz Rosa PET scan in approx 2 weeks. Back to see me with next treatment to review PET results documented in this encounter [facility] 02-06-[address] Burgess is ok with March 09. Oneida Amaro RN [facility] Work Phone: 02-05-[address] Burgess's patient. Telly Duncan DO [facility] 02-05-2025 Telephone encounter Note Patient called back to schedule. Patient will only travel to [place]. Next opening isn't till March 09, Please advise [facility] 02-05-2025 Telephone encounter Note LVM for pt to call back and schedule PET and OV. Shahnaz Rosa [facility] 02-04-2025 Telephone encounter Note PET scan in approx 2 weeks. Back to see me with next treatment to review PET results [facility] 02-04-2025 History of Present illness Narrative (Elements copied from my note dated December 24, 2024, have been reviewed and updated where appropriate, and all reflect current assessment and medical decision making from today's encounter, February 04, 2025) HISTORY OF PRESENT ILLNESS: Lata Smith is a 64 year old female who presented with worsening shortness of breath and hemoptysis for several months. Patient was seen in primary care clinic in May was treated with antibiotic without improvement. She was seen by Dr. Castillo and a CT chest revealed a lung mass and mediastinal adenopathy. She had no fever Chills, rigor, pleuritic chest pain, chest trauma. She has stable exertional dyspnea with activities of daily living, and exertional wheezing. She also complained of severe right hip pain along with pressure on her right side of her chest for couple months. Her staging PET scan on 08/03/2020 unfortunately showed metastatic disease. She had bronchoscopy and EBUS biopsy of the mediastinal lymph node on 08/19/2020. Biopsy was consistent with non-small cell, favoring adenocarcinoma the lung. She is here today to discuss treatment option for metastatic lung cancer. Patient is lives with an adult son. She is quit smoking since October after her heart attack. She denied any any weight loss since her heart attack. She has no hoarseness or dysphagia. No headaches or neurological symptoms. She has severe right hip pain secondary to metastatic disease. MRI scan of brain shows no evidence of metastatic disease. She completed palliative radiation therapy to her right hip. Prior therapies: Pembrolizumab till Zometa till November 2023 Current therapy: 1) Carboplatin pemetrexed from 10-30-24 to present. 2) Zometa done, completed 3 years in November 2023 I ran her case by med onc and rad onc at [facility], their review suggests stability of disease, they recommend observation, possible SBRT to lung if we see further growth of right lung nodule. PET scan from we see progression in chest, new thoracic spine metastasis Reviewed Guardant results, no actionable mutations applicable to non small cell lung cancer. Here for follow up, cycle 2 planned. Bad experience with cycle 1, was in bed for a month with ftugue, no energy, no appetite. Nausea but no vomiting. Now eating well. 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 continue chemo plan single agent alimta in effort to allow for tolerability.. 2. Update PET scan Written and verbal health teaching given to patient, patient verbalizes understanding and agrees with treatment plan. 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 Hypertension Irritable bowel syndrome Migraine without aura Obesity, unspecified Other forms of migraine ST elevation myocardial infarction involving right coronary artery (HCC) 06/28/2020 Tobacco use disorder PAST SURGICAL HISTORY Procedure Laterality Date CHOLECYSTECTOMY Cholecystectomy COLONOSCOPY FLX DX W/COLLJ SPEC WHEN PFRMD 11/20/2012 Colonoscopy F TOTAL ABDOMINAL HYSTERECTOMY 05/2013 INCISE FINGER TENDON SHEATH Right 07/21/2021 Right ring trigger finger release INCISE FINGER TENDON SHEATH Left 02/26/2023 Left ring trigger finger release LAPAROSCOPIC APPENDECTOMY 02/17/2015 LIG/TRNSXJ FLP TUBE ABDL/VAG APPR UNI/BI 1982 Tubal ligation NEUROPLASTY &/TRANSPOS MEDIAN NRV CARPAL TUNNE 04/29/2004 Carpal tunnel decomp,left NEUROPLASTY &/TRANSPOS MEDIAN NRV CARPAL TUNNE 05/17/2004 Carpal tunnel decomp, right NOVASURE PAST SURGICAL HISTORY OF cardiac stents FAMILY HISTORY Problem Relation Age of Onset Blood Disease Mother Alzheimer's Disease Father other (lung cancer) Brother 3rd brother, small cell Diabetes Maternal Grandmother Cerebral Embolism Brother oldest brother, aneurysm Cancer Brother 2nd brother, some type of skin cancer Social History Tobacco Use Smoking status: Every Day Current packs/day: 1.50 Average packs/day: 2.0 packs/day for 42.9 years (85.4 ttl pk-yrs) Types: Cigarettes Start date: 03/08/2024 Smokeless tobacco: Never Tobacco comments: Was down to 1PPD then 3cig per week but back to 1PPD Vaping Use Vaping status: Some Days Substances: THC Substance Use Topics Alcohol use: Yes Comment: Occasional glass of wine. A few per month Drug use: Yes Types: Marijuana Comment: every 2-3 days ALLERGIES: ALLERGIES Allergen Reactions Augmentin [Amoxicil* Diarrhea Tolerates plain penicillins such as amoxicillin Penicillins Hives Also GI upset. CURRENT OUTPATIENT MEDICATIONS: folic acid 1 mg tablet Take 1 tablet by mouth once daily. aspirin, enteric coated (ASPIRIN, ENTERIC COATED) 81 mg EC tablet Take 1 tablet by mouth once daily. furosemide (LASIX) 20 mg tablet Take 1-2 tablets by mouth once daily as needed. ibuprofen (MOTRIN) 800 mg tablet Take 1 tablet by mouth every 8 hours as needed for pain. nystatin (MYCOSTATIN) 100,000 unit/mL suspension Take 5 mL by mouth four times daily. 1tsp swish in mouth for several minutes, then swallow (or expectorate) 4 times daily until gone. promethazine (PHENERGAN) 25 mg tablet Take 1 tablet by mouth every 6 hours as needed for nausea/vomiting. benzonatate (TESSALON PERLE) 100 mg capsule Take 2 capsules by mouth three times a day as needed for cough. Take 1-3 capsules by mouth every 6-8 hours as needed. potassium chloride (KLOR-CON) 20 mEq packet Take 20 mEq by mouth two times a day. fluticasone-salmeterol (ADVAIR DISKUS) 500-50 mcg/dose dsdv Inhale 1 Puff as instructed two times a day. RINSE AND GARGLE MOUTH WITH WATER AFTER EACH USE. umeclidinium (INCRUSE ELLIPTA) 62.5 mcg/actuation inhaler Inhale 1 Puff as instructed once daily. multivitamin tablet Take 1 tablet by mouth once daily. losartan (COZAAR) 25 mg tablet Take 1 tablet by mouth once daily. naloxone 4 mg/actuation nasal spray (NARCAN) Use 1 spray in one nostril as needed for overdose. May repeat every 2 to 3 min in alternating nostrils until medical assistance is available albuterol (PROVENTIL) 2.5 mg /3 mL (0.083 %) nebulizer solution Use 3 mL via nebulizer every 6 hours as needed for wheezing/shortness of breath. 1 vial contains 3 ml. albuterol HFA (VENTOLIN HFA) 90 mcg/actuation inhaler Inhale 2 Puffs as instructed every 4 hours as needed for Wheezing/Shortness of Breath. Do not replace with ProAir. aluminum-magnesium hydroxide-simethicone 200-200-20 mg/5 mL suspension Take 15 mL by mouth every 6 hours as needed. diclofenac (VOLTAREN) 1 % topical gel Apply 2 g to affected area four times a day as needed (upper extremity joint(s)). fluticasone (FLONASE) 50 mcg/actuation nasal spray Use 2 Sprays in each nostril once daily. Rinse mouth after use hydroCHLOROthiazide 25 mg tablet Take 1 tablet by mouth once daily. rosuvastatin (CRESTOR) 40 mg tablet Take 1 tablet by mouth once daily. simethicone, chewable (WY-ACID GAS RELIEF,SIMETHICON,) 80 mg chewable tablet Take 1 tablet by mouth every 6 hours as needed. traZODone (DESYREL) 50 mg tablet Take 1 tablet by mouth at bedtime as needed. verapamil ER (VERELAN) 120 mg 24 hr capsule Take 1 capsule by mouth once daily. esomeprazole (NEXIUM) 20 mg capsule Take 1 capsule by mouth daily before breakfast. 1/2 hr before meal. senna (SENOKOT) 8.6 mg tab Take 2 tablets by mouth twice daily. oxyCODONE-acetaminophen (PERCOCET) 7.5-325 mg tablet Take 1 tablet by mouth every 8 hours as needed for pain. rizatriptan (MAXALT) 10 mg tablet Take 10 mg by mouth as needed. May repeat in 2 hours if needed cyclobenzaprine (FLEXERIL) 10 mg tablet Take 10 mg by mouth twice daily as needed for Muscle Spasm. polyethylene glycol 3350 (MIRALAX) 17 gram/dose powder Take 17 g by mouth once daily. NOT NEEDING NOW blood sugar diagnostic (BLOOD GLUCOSE TEST) test strip Test blood sugar(s) 1 times daily. Dx: (R73.9) Hyperglycemia; (R73.03) Prediabetes Insulin: No Nebulizer NEBULIZER FOR HOME USE with supplies. DX: (J45.40) Moderate persistent asthma without complication (primary encounter diagnosis) REVIEW OF SYSTEMS: GENERAL: No fever, night sweats, weight loss or malaise. All other reviewed and negative other than HPI. PHYSICAL EXAMINATION: VITAL SIGNS: BP 123/80 Pulse 94 Temp (Src) 97.2 (Temporal) Wt 194 lb 8 oz (88.2kg) SpO2 96% LMP 11/04/2012 GENERAL APPEARANCE: Well appearing, in no acute distress, alert and oriented x3, well-hydrated, well nourished. LUNGS: CTA I spent a total of 30 minutes on the date of the service which included preparing to see the patient, [id number] patient care, completing clinical documentation, obtaining and/or reviewing separately obtained history, performing a medically appropriate examination, counseling and educating the patient/family/caregiver, independently interpreting results (not separately reported), and communicating results to the patient/family/caregiver. Also review of images, plan discussed with animal care assistant, nursing. Electronically Signed: Sandoval Burgess MD February 04, 2025 documented in this encounter [facility] 01-14-2025 History of Present illness Narrative Pt stated no changes to assessment from OV yesterday. Leigh Saul, LILI documented in this encounter [facility] 01-13-2025 History of Present illness Narrative Chief Complaint Patient presents with: Established Patient HPI: Lata Smith is a 64 year old female who presents here today for evaluation for treatment tomorrow. Per Dr. Burgess's previous note: HISTORY OF PRESENT ILLNESS: Lata Smith is a 64 year old female who presented with worsening shortness of breath and hemoptysis for several months. Patient was seen in primary care clinic in May was treated with antibiotic without improvement. She was seen by Dr. Castillo and a CT chest revealed a lung mass and mediastinal adenopathy. She had no fever Chills, rigor, pleuritic chest pain, chest trauma. She has stable exertional dyspnea with activities of daily living, and exertional wheezing. She also complained of severe right hip pain along with pressure on her right side of her chest for couple months. Her staging PET scan on 08/03/2020 unfortunately showed metastatic disease. She had bronchoscopy and EBUS biopsy of the mediastinal lymph node on 08/19/2020. Biopsy was consistent with non-small cell, favoring adenocarcinoma the lung. She is here today to discuss treatment option for metastatic lung cancer. Patient is lives with an adult son. She is quit smoking since October after her heart attack. She denied any any weight loss since her heart attack. She has no hoarseness or dysphagia. No headaches or neurological symptoms. She has severe right hip pain secondary to metastatic disease. MRI scan of brain shows no evidence of metastatic disease. She completed palliative radiation therapy to her right hip. Prior therapies: Pembrolizumab till Zometa till November 2023 Current therapy: 1) Carboplatin pemetrexed from 10-30-24 to present. 2) Zometa done, completed 3 years in November 2023 I ran her case by med onc and rad onc at [facility], their review suggests stability of disease, they recommend observation, possible SBRT to lung if we see further growth of right lung nodule. PET scan from we see progression in chest, new thoracic spine metastasis Reviewed Guardant results, no actionable mutations applicable to non small cell lung cancer. Here for follow up had cough, did z pack, cough better but now more dyspneic, O2 sats lower than normal. Cxr normal CTA neg for PE, see bronchial wall thickening Here for follow up, cycle 2 planned. Bad experience with cycle 1, was in bed for a month with ftugue, no energy, no appetite. Nausea but no vomiting. Now eating well. 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 continue chemo plan single agent alimta in effort to allow for tolerability. No new concerns today. Appetite:It's good. Energy level:Eh none. Denies fevers. Mouth:denies sores Resp:denies new cough, still occ. productive, denies sob H/o COPD-followed by Pulm Cardiac:denies chest pain/palpitations-followed by cards GI:denies abd pain, n/v, moving bowels regularly :denies dysuria/hematuria Extrem:denies new pain Neuro:denies symptoms of neuropathy Skin:denies rashes Heme:denies bleeding The ROS is otherwise negative. Past medical history, appointments, medications, allergies reviewed. No changes. EXAM: BP 118/76 Pulse 79 Temp 36.6 C (97.9 F) (Temporal) Wt 89.3 kg (196 lb 13.9 oz) LMP 11/04/2012 SpO2 94% BMI 37.17 kg/m APPEARANCE Well appearing, alert, in no acute distress, well-hydrated, well nourished. HEART RRR with normal S1 and S2, no murmurs LUNG clear to auscultation LYMPH NODES No cervical lymphadenopathy, No supraclavicular lymphadenopathy, and No axillary lymphadenopathy. ABDOMEN bowel sounds normoactive, soft, non-tender EXTREMITIES No edema NEURO Awake, alert and oriented x 3, Normal gait, and No involuntary motions. SKIN Skin color, texture, turgor normal, no suspicious rashes or lesions LABS: Latest Ref Rng 12/04/2024 12/24/2024 01/13/2025 WBC 3.70 - 11.00 k/uL 8.16 9.21 7.62 RBC 3.90 - 5.20 m/uL 4.55 4.83 4.58 Hemoglobin 11.5 - 15.5 g/dL 12.9 13.6 13.1 Hematocrit 36.0 - 46.0 % 39.1 41.1 39.7 MCV 80.0 - 100.0 fL 85.9 85.1 86.7 MCH 26.0 - 34.0 pg 28.4 28.2 28.6 MCHC 30.5 - 36.0 g/dL 33.0 33.1 33.0 RDW-CV 11.5 - 15.0 % 18.2 (H) 17.9 (H) 18.3 (H) Platelet Count 150 - 400 k/uL 216 244 384 MPV 9.0 - 12.7 fL 10.3 9.2 9.1 Neut% % 74.3 72.2 69.3 Abs Neut (ANC) 1.45 - 7.50 k/uL 6.06 6.65 5.28 Lymph% % 16.3 16.8 18.0 Abs Lymph 1.00 - 4.00 k/uL 1.33 1.55 1.37 [place]% % 6.5 7.2 8.8 Abs [place] <0.87 k/uL 0.53 0.66 0.67 Eosin% % 1.7 2.5 2.6 Abs Eosin <0.46 k/uL 0.14 0.23 0.20 Baso% % 0.6 0.9 0.5 Abs Baso <0.11 k/uL 0.05 0.08 0.04 Immature Gran % % 0.6 0.4 0.8 IMMATURE GRANS (ABS) <0.10 k/uL 0.05 0.04 0.06 NRBC /100 WBC 0.0 0.0 0.0 Absolute nRBC <0.01 k/uL <0.01 <0.01 <0.01 DTYPE Auto Auto Auto Latest Ref Rng 12/04/2024 12/24/2024 01/13/2025 Protein, Total 6.3 - 8.0 g/dL 6.8 7.4 7.2 Albumin 3.9 - 4.9 g/dL 3.6 (L) 3.9 3.8 (L) Calcium 8.5 - 10.2 mg/dL 9.0 9.9 9.9 Bilirubin, Total 0.2 - 1.3 mg/dL 0.2 0.3 0.2 Alkaline Phosphatase 34 - 123 U/L 119 134 (H) 144 (H) AST 13 - 35 U/L 15 11 (L) 17 ALT 7 - 38 U/L 27 17 34 Glucose 74 - 99 mg/dL 145 (H) 126 (H) 110 (H) BUN 7 - 21 mg/dL 9 14 12 Creatinine 0.58 - 0.96 mg/dL 0.64 0.74 0.78 Sodium 136 - 144 mmol/L 137 138 137 Potassium 3.7 - 5.1 mmol/L 3.3 (L) 2.9 (L) 3.5 (L) Chloride 98 - 107 mmol/L 103 100 100 CO2 22 - 30 mmol/L 25 28 28 Anion Gap 8 - 15 mmol/L 9 10 9 eGFR >=60 mL/min/1.73m 99 91 85 ASSESSMENT/PLAN: 1. 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 - Reviewed CBC/CMP with pt. - Continue current medications. - Proceed as scheduled tomorrow for alimta only. - Follow up as scheduled. - Pt. aware to call office with any questions/concerns. The patient indicates understanding of these issues and agrees with the plan. All documentation from previous visit of 12/24/24-Dr. Burgess was copied and pasted, documentation has been reviewed and edited as necessary for today's visit. Carrie Preciado APRN.CHANGE MANAGEMENT DIRECTOR documented in this encounter [facility] 12-25-2024 History of Present illness Narrative Assessment unchanged from Dr Burgess office visit on 12/24/24 documented in this encounter [facility] 12-24-2024 History of Present illness Narrative (Elements copied from my note dated November 19, 2024, have been reviewed and updated where appropriate, and all reflect current assessment and medical decision making from today's encounter, December 24, 2024) HISTORY OF PRESENT ILLNESS: Lata Smith is a 64 year old female who presented with worsening shortness of breath and hemoptysis for several months. Patient was seen in primary care clinic in May was treated with antibiotic without improvement. She was seen by Dr. Castillo and a CT chest revealed a lung mass and mediastinal adenopathy. She had no fever Chills, rigor, pleuritic chest pain, chest trauma. She has stable exertional dyspnea with activities of daily living, and exertional wheezing. She also complained of severe right hip pain along with pressure on her right side of her chest for couple months. Her staging PET scan on 08/03/2020 unfortunately showed metastatic disease. She had bronchoscopy and EBUS biopsy of the mediastinal lymph node on 08/19/2020. Biopsy was consistent with non-small cell, favoring adenocarcinoma the lung. She is here today to discuss treatment option for metastatic lung cancer. Patient is lives with an adult son. She is quit smoking since October after her heart attack. She denied any any weight loss since her heart attack. She has no hoarseness or dysphagia. No headaches or neurological symptoms. She has severe right hip pain secondary to metastatic disease. MRI scan of brain shows no evidence of metastatic disease. She completed palliative radiation therapy to her right hip. Prior therapies: Pembrolizumab till Zometa till November 2023 Current therapy: 1) Carboplatin pemetrexed from 10-30-24 to present. 2) Zometa done, completed 3 years in November 2023 I ran her case by med onc and rad onc at [facility], their review suggests stability of disease, they recommend observation, possible SBRT to lung if we see further growth of right lung nodule. PET scan from we see progression in chest, new thoracic spine metastasis Reviewed Guardant results, no actionable mutations applicable to non small cell lung cancer. Here for follow up had cough, did z pack, cough better but now more dyspneic, O2 sats lower than normal. Cxr normal CTA neg for PE, see bronchial wall thickening Here for follow up, cycle 2 planned. Bad experience with cycle 1, was in bed for a month with ftugue, no energy, no appetite. Nausea but no vomiting. Now eating well. 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 continue chemo plan single agent alimta in effort to allow for tolerability.. Written and verbal health teaching given to patient, patient verbalizes understanding and agrees with treatment plan. 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 Hypertension Irritable bowel syndrome Migraine without aura Obesity, unspecified Other forms of migraine ST elevation myocardial infarction involving right coronary artery (HCC) 06/28/2020 Tobacco use disorder PAST SURGICAL HISTORY Procedure Laterality Date CHOLECYSTECTOMY Cholecystectomy COLONOSCOPY FLX DX W/COLLJ SPEC WHEN PFRMD 11/20/2012 Colonoscopy F TOTAL ABDOMINAL HYSTERECTOMY 05/2013 INCISE FINGER TENDON SHEATH Right 07/21/2021 Right ring trigger finger release INCISE FINGER TENDON SHEATH Left 02/26/2023 Left ring trigger finger release LAPAROSCOPIC APPENDECTOMY 02/17/2015 LIG/TRNSXJ FLP TUBE ABDL/VAG APPR UNI/BI 1982 Tubal ligation NEUROPLASTY &/TRANSPOS MEDIAN NRV CARPAL TUNNE 04/29/2004 Carpal tunnel decomp,left NEUROPLASTY &/TRANSPOS MEDIAN NRV CARPAL TUNNE 05/17/2004 Carpal tunnel decomp, right NOVASURE PAST SURGICAL HISTORY OF cardiac stents FAMILY HISTORY Problem Relation Age of Onset Blood Disease Mother Alzheimer's Disease Father other (lung cancer) Brother 3rd brother, small cell Diabetes Maternal Grandmother Cerebral Embolism Brother oldest brother, aneurysm Cancer Brother 2nd brother, some type of skin cancer Social History Tobacco Use Smoking status: Every Day Current packs/day: 1.50 Average packs/day: 2.0 packs/day for 42.8 years (85.2 ttl pk-yrs) Types: Cigarettes Start date: 03/08/2024 Smokeless tobacco: Never Tobacco comments: Was down to 1PPD then 3cig per week but back to 1PPD Vaping Use Vaping status: Former Substance Use Topics Alcohol use: Yes Comment: Occasional glass of wine. A few per month Drug use: Yes Types: Marijuana Comment: every 2-3 days ALLERGIES: ALLERGIES Allergen Reactions Augmentin [Amoxicil* Diarrhea Tolerates plain penicillins such as amoxicillin Penicillins Hives Also GI upset. CURRENT OUTPATIENT MEDICATIONS: aspirin, enteric coated (ASPIRIN, ENTERIC COATED) 81 mg EC tablet Take 1 tablet by mouth once daily. furosemide (LASIX) 20 mg tablet Take 1-2 tablets by mouth once daily as needed. ibuprofen (MOTRIN) 800 mg tablet Take 1 tablet by mouth every 8 hours as needed for pain. nystatin (MYCOSTATIN) 100,000 unit/mL suspension Take 5 mL by mouth four times daily. 1tsp swish in mouth for several minutes, then swallow (or expectorate) 4 times daily until gone. promethazine (PHENERGAN) 25 mg tablet Take 1 tablet by mouth every 6 hours as needed for nausea/vomiting. benzonatate (TESSALON PERLE) 100 mg capsule Take 2 capsules by mouth three times a day as needed for cough. Take 1-3 capsules by mouth every 6-8 hours as needed. folic acid 1 mg tablet Take 1 tablet by mouth once daily. potassium chloride (KLOR-CON) 20 mEq packet Take 20 mEq by mouth two times a day. fluticasone-salmeterol (ADVAIR DISKUS) 500-50 mcg/dose dsdv Inhale 1 Puff as instructed two times a day. RINSE AND GARGLE MOUTH WITH WATER AFTER EACH USE. umeclidinium (INCRUSE ELLIPTA) 62.5 mcg/actuation inhaler Inhale 1 Puff as instructed once daily. multivitamin tablet Take 1 tablet by mouth once daily. losartan (COZAAR) 25 mg tablet Take 1 tablet by mouth once daily. naloxone 4 mg/actuation nasal spray (NARCAN) Use 1 spray in one nostril as needed for overdose. May repeat every 2 to 3 min in alternating nostrils until medical assistance is available albuterol (PROVENTIL) 2.5 mg /3 mL (0.083 %) nebulizer solution Use 3 mL via nebulizer every 6 hours as needed for wheezing/shortness of breath. 1 vial contains 3 ml. albuterol HFA (VENTOLIN HFA) 90 mcg/actuation inhaler Inhale 2 Puffs as instructed every 4 hours as needed for Wheezing/Shortness of Breath. Do not replace with ProAir. aluminum-magnesium hydroxide-simethicone 200-200-20 mg/5 mL suspension Take 15 mL by mouth every 6 hours as needed. diclofenac (VOLTAREN) 1 % topical gel Apply 2 g to affected area four times a day as needed (upper extremity joint(s)). fluticasone (FLONASE) 50 mcg/actuation nasal spray Use 2 Sprays in each nostril once daily. Rinse mouth after use hydroCHLOROthiazide 25 mg tablet Take 1 tablet by mouth once daily. rosuvastatin (CRESTOR) 40 mg tablet Take 1 tablet by mouth once daily. simethicone, chewable (WY-ACID GAS RELIEF,SIMETHICON,) 80 mg chewable tablet Take 1 tablet by mouth every 6 hours as needed. traZODone (DESYREL) 50 mg tablet Take 1 tablet by mouth at bedtime as needed. verapamil ER (VERELAN) 120 mg 24 hr capsule Take 1 capsule by mouth once daily. esomeprazole (NEXIUM) 20 mg capsule Take 1 capsule by mouth daily before breakfast. 1/2 hr before meal. senna (SENOKOT) 8.6 mg tab Take 2 tablets by mouth twice daily. oxyCODONE-acetaminophen (PERCOCET) 7.5-325 mg tablet Take 1 tablet by mouth every 8 hours as needed for pain. rizatriptan (MAXALT) 10 mg tablet Take 10 mg by mouth as needed. May repeat in 2 hours if needed cyclobenzaprine (FLEXERIL) 10 mg tablet Take 10 mg by mouth twice daily as needed for Muscle Spasm. polyethylene glycol 3350 (MIRALAX) 17 gram/dose powder Take 17 g by mouth once daily. NOT NEEDING NOW azithromycin (ZITHROMAX Z-TU) 250 mg tablet TAKE 2 TABS ON THE FIRST DAY, THEN ONE TAB DAILY FOR 4 DAYS. (Patient not taking: Reported on 12/01/2024) blood sugar diagnostic (BLOOD GLUCOSE TEST) test strip Test blood sugar(s) 1 times daily. Dx: (R73.9) Hyperglycemia; (R73.03) Prediabetes Insulin: No Nebulizer NEBULIZER FOR HOME USE with supplies. DX: (J45.40) Moderate persistent asthma without complication (primary encounter diagnosis) REVIEW OF SYSTEMS: GENERAL: No fever, night sweats, weight loss or malaise. All other reviewed and negative other than HPI. PHYSICAL EXAMINATION: VITAL SIGNS: BP 102/70 Pulse 96 Temp (Src) 98.3 (Temporal) Wt 189 lb 8 oz (86.0kg) SpO2 93% LMP 11/04/2012 GENERAL APPEARANCE: Well appearing, in no acute distress, alert and oriented x3, well-hydrated, well nourished. I spent a total of 30 minutes on the date of the service which included preparing to see the patient, [id number] patient care, completing clinical documentation, obtaining and/or reviewing separately obtained history, performing a medically appropriate examination, counseling and educating the patient/family/caregiver, independently interpreting results (not separately reported), and communicating results to the patient/family/caregiver. Also review of images, plan discussed with animal care assistant, nursing. Electronically Signed: Sandoval Burgess MD December 24, 2024 documented in this encounter [facility] 12-04-2024 History of Present illness Narrative During assessment pt stated she feels horrible since starting chemo. Fatigue 05/17. CORNELL 06/17 . Appetite poor. Stating she does not want tx today. Dr. Burgess aware. NOV 12/24. Pt educated on staying hydrated, eating small frequent meals, amount of Tylenol not to exceed within a 24 hour period. Pt verbalized understanding, and will let us know if any other changes occur. Leigh Saul RN documented in this encounter [facility] 12-01-2024 Instructions Fiona Durant MD - 12/01/2024 5:52 PM EST - Continue taking your potassium supplements as prescribed. - Maintain your current diet, including yogurt and applesauce, to support your nutrition and prevent thrush. - Monitor your cough and breathing. If symptoms worsen, contact your healthcare provider immediately. - Attend your chemotherapy appointment on the . - Continue taking your prescribed medications: aspirin, Lasix, ibuprofen, nystatin, Phenergan, and Tessalon Perles. - Gradually reduce your smoking habit. Aim to decrease from a little over a pack a day to one pack a day. - Schedule a follow-up appointment in 3 months. documented in this encounter [facility] 12-01-2024 History of Present illness Narrative This note was created using Zairgeriter. Subjective Lata Smith is a 64 year old female. Patient presents with: F/U 3 months SUBJECTIVE: Lata Smith is a 64 year old year old lady here today for 3 month follow up appointment for review of medical conditions. Lata Smith is a 64-year-old female with a history of cancer, COPD, and tobacco use, presenting for a regular 3-month follow-up. Lata recently completed chemotherapy and experienced an upper respiratory infection prior to starting treatment. She was prescribed antibiotics and steroids, including a Medrol Dosepak, which she completed approximately 4-5 days ago. She reports that her breathing has almost returned to baseline, but she continues to experience a cough and is expectorating a small amount of slightly green sputum. She notes that her imaging administrator, Dr. Burgess, has been managing her respiratory symptoms. Lata was scheduled for a chemotherapy treatment 2 weeks ago but postponed it due to dyspnea. She was prescribed another course of steroids and antibiotics at that time, which she reports improved her breathing. She is scheduled for her next chemotherapy session on the and plans to discuss her ongoing respiratory symptoms with her oncologist. Lata reports a weight loss of 14 lbs following her last chemotherapy session, with a recent gain of 1 lb. She attributes the weight loss to a decreased appetite and increased sleep duration of 11-14 hours per day for almost 3 weeks post-treatment. She has made dietary changes, including consuming yogurt and applesauce, to manage her nutrition during this period. Lata has reduced her tobacco use to slightly over 1 pack per day, down from 2 packs per day, for the past 8 months. She attributes this reduction to her son's encouragement and her desire to avoid additional medications. 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 (Patient not taking: Reported on 12/01/2024) folic acid 1 mg tablet Take 1 tablet by mouth once daily. potassium chloride (KLOR-CON) 20 mEq packet Take 20 mEq by mouth two times a day. fluticasone-salmeterol (ADVAIR DISKUS) 500-50 mcg/dose dsdv Inhale 1 Puff as instructed two times a day. RINSE AND GARGLE MOUTH WITH WATER AFTER EACH USE. umeclidinium (INCRUSE ELLIPTA) 62.5 mcg/actuation inhaler Inhale 1 Puff as instructed once daily. blood sugar diagnostic (BLOOD GLUCOSE TEST) test strip Test blood sugar(s) 1 times daily. Dx: (R73.9) Hyperglycemia; (R73.03) Prediabetes Insulin: No promethazine (PHENERGAN) 25 mg tablet Take 1 tablet by mouth every 6 hours as needed for nausea/vomiting. benzonatate (TESSALON PERLE) 100 mg capsule Take 2 capsules by mouth three times a day as needed for cough. Take 1-3 capsules by mouth every 6-8 hours as needed. ibuprofen (MOTRIN) 800 mg tablet Take 1 tablet by mouth every 8 hours as needed for pain. multivitamin tablet Take 1 tablet by mouth once daily. furosemide (LASIX) 20 mg tablet Take 1-2 tablets by mouth once daily as needed. losartan (COZAAR) 25 mg tablet Take 1 tablet by mouth once daily. naloxone 4 mg/actuation nasal spray (NARCAN) Use 1 spray in one nostril as needed for overdose. May repeat every 2 to 3 min in alternating nostrils until medical assistance is available albuterol (PROVENTIL) 2.5 mg /3 mL (0.083 %) nebulizer solution Use 3 mL via nebulizer every 6 hours as needed for wheezing/shortness of breath. 1 vial contains 3 ml. albuterol HFA (VENTOLIN HFA) 90 mcg/actuation inhaler Inhale 2 Puffs as instructed every 4 hours as needed for Wheezing/Shortness of Breath. Do not replace with ProAir. aluminum-magnesium hydroxide-simethicone 200-200-20 mg/5 mL suspension Take 15 mL by mouth every 6 hours as needed. diclofenac (VOLTAREN) 1 % topical gel Apply 2 g to affected area four times a day as needed (upper extremity joint(s)). fluticasone (FLONASE) 50 mcg/actuation nasal spray Use 2 Sprays in each nostril once daily. Rinse mouth after use hydroCHLOROthiazide 25 mg tablet Take 1 tablet by mouth once daily. rosuvastatin (CRESTOR) 40 mg tablet Take 1 tablet by mouth once daily. simethicone, chewable (WY-ACID GAS RELIEF,SIMETHICON,) 80 mg chewable tablet Take 1 tablet by mouth every 6 hours as needed. traZODone (DESYREL) 50 mg tablet Take 1 tablet by mouth at bedtime as needed. verapamil ER (VERELAN) 120 mg 24 hr capsule Take 1 capsule by mouth once daily. esomeprazole (NEXIUM) 20 mg capsule Take 1 capsule by mouth daily before breakfast. 1/2 hr before meal. aspirin, enteric coated (ASPIRIN, ENTERIC COATED) 81 mg EC tablet Take 1 tablet by mouth once daily. nystatin (MYCOSTATIN) 100,000 unit/mL suspension Take 5 mL by mouth four times daily. 1tsp swish in mouth for several minutes, then swallow (or expectorate) 4 times daily until gone. senna (SENOKOT) 8.6 mg tab Take 2 tablets by mouth twice daily. oxyCODONE-acetaminophen (PERCOCET) 7.5-325 mg tablet Take 1 tablet by mouth every 8 hours as needed for pain. rizatriptan (MAXALT) 10 mg tablet Take 10 mg by mouth as needed. May repeat in 2 hours if needed cyclobenzaprine (FLEXERIL) 10 mg tablet Take 10 mg by mouth twice daily as needed for Muscle Spasm. polyethylene glycol 3350 (MIRALAX) 17 gram/dose powder Take 17 g by mouth once daily. NOT NEEDING NOW Nebulizer NEBULIZER FOR HOME USE with supplies. DX: (J45.40) Moderate persistent asthma without complication (primary encounter diagnosis) No current facility-administered medications for this visit. Review of Systems Objective BP 100/50 Pulse 88 Wt 84.9 kg (187 lb 2.7 oz) LMP 11/04/2012 SpO2 95% BMI 35.34 kg/m Physical Exam Constitutional: Appearance: Normal appearance. HENT: Head: Normocephalic. Eyes: Conjunctiva/sclera: Conjunctivae normal. Cardiovascular: Rate and Rhythm: Normal rate and regular rhythm. Heart sounds: Normal heart sounds. Pulmonary: Effort: Pulmonary effort is normal. Breath sounds: Normal breath sounds. Musculoskeletal: Right lower leg: No edema. Left lower leg: No edema. Skin: General: Skin is warm and dry. Neurological: General: No focal deficit present. Mental Status: She is alert and oriented to person, place, and time. Psychiatric: Mood and Affect: Mood normal. Behavior: Behavior normal. Thought Content: Thought content normal. Judgment: Judgment normal. Assessment and Plan # Acute bronchitis with chronic obstructive pulmonary disease (COPD) ([facility]) ([facility]) (J44.0) - Recent upper respiratory infection treated with antibiotics and steroids; currently on Medrol Dosepak, completed on 11/26. - Breathing has improved, but persistent cough and production of slightly green sputum remain. - Lungs clear to auscultation, no crackles or wheezes noted. - Discussed with Dr. Burgess; follow-up appointment scheduled for 12/04. - Continue current medications including Tessalon Perles for cough management. # Cancer of lower lobe of right lung ([facility]) (C34.31) - Undergoing chemotherapy with pembrolizumab and Zometa; next session scheduled for 12/04. - Discussed the role of chemotherapy in managing cancer as a chronic illness to prevent further growth and metastasis. - Patient educated on the importance of maintaining nutrition to support immune function and recovery during treatment. # Class 2 obesity due to excess calories without serious comorbidity with body mass index (BMI) of 35.0 to 35.9 in adult (E66.812) - Recent weight loss of 14 lbs post-chemotherapy; current BMI within the range of 35.0 to 35.9. - Encouraged gradual weight loss through healthy eating habits; patient has started consuming yogurt and applesauce instead of sweets. - Monitor weight and nutritional intake to prevent muscle mass loss and ensure adequate energy for recovery. # Tobacco use disorder (F17.200) - Reduced smoking to approximately 1.5 packs per day for the past 8 months. - Discussed the importance of further reduction and cessation to improve respiratory health and overall prognosis. - Advised to identify triggers and develop alternative habits to support smoking cessation. # Examination of participant in clinical trial (Z00.6) - Participating in clinical trial for lung cancer treatment with pembrolizumab and Zometa. - Continue adherence to trial protocols and scheduled treatments. Fiona Durant MD documented in this encounter [facility] 11-26-2024 Telephone encounter Note Schedule updated. Message left for patient to contact office to confirm appt date/time. Per clinical with same day lab, treatment no later than 1:00, patient will need to arrive at 1230 for lab. [facility] Work Phone: 11-26-2024 Miscellaneous Notes Schedule updated. Message left for patient to contact office to confirm appt date/time. Per clinical with same day lab, treatment no later than 1:00, patient will need to arrive at 1230 for lab. Pt states she is finally feeling better and does not want to come in for treatment tomorrow. Dr. Burgess is aware. Again reminded pt to take her potassium daily. Pt also requesting that her appointments are not scheduled any earlier than 1:00 as she has issues with rides. Due to treatment time, if pt has NOT had labs, do not schedule any later than 1. If labs have been done prior, 2hr time slot is OK. Patient called asking if she could delay treatment for one more week. Please advise. F/u to 11/21 phone note. Pt states she is having her tooth removed today. Spoke to Dr. Burgess-he said it is still OK for her to have her treatment tomorrow. Pt stated understanding. documented in this encounter [facility] 11-26-2024 Telephone encounter Note Pt states she is finally feeling better and does not want to come in for treatment tomorrow. Dr. Burgess is aware. Again reminded pt to take her potassium daily. Pt also requesting that her appointments are not scheduled any earlier than 1:00 as she has issues with rides. Due to treatment time, if pt has NOT had labs, do not schedule any later than 1. If labs have been done prior, 2hr time slot is OK. [facility] 11-26-2024 Telephone encounter Note Patient called asking if she could delay treatment for one more week. Please advise. [facility] 11-26-2024 Telephone encounter Note F/u to 11/21 phone note. Pt states she is having her tooth removed today. Spoke to Dr. Burgess-he said it is still OK for her to have her treatment tomorrow. Pt stated understanding. [facility] 11-26-2024 Telephone encounter Note Spoke to pt. She refuses to receive K+ IV. She is aware of how low it is, but stated she will never receive K+ peripherally. Reminded her to make sure she is taking her PO K+ bid. Pt stated understanding. Addie Carbajal is aware. [facility] 11-26-2024 Miscellaneous Notes Spoke to pt. She refuses to receive K+ IV. She is aware of how low it is, but stated she will never receive K+ peripherally. Reminded her to make sure she is taking her PO K+ bid. Pt stated understanding. Addie Carbajal is aware. K 2.7 - Results from 09/18 forwarded to me today 11/25 at 11:31. Called patient - no answer LVM to return call to office. Would like to replace with IV BRITTANY. I know she has been hesitant in the past but it is dangerously low. Can lead to heart arrhythmias. Should at least be taking PO twice daily. If agreeable, can we add her on for IV potassium today? Would plan to recheck and possibly replace on 11/27 while she is here for treatment. Floresita Carbajal APRN.CHANGE MANAGEMENT DIRECTOR documented in this encounter [facility] 11-25-2024 Telephone encounter Note K 2.7 - Results from 09/18 forwarded to mi today 11/25 at 11:31. Called patient - no answer LVM to return call to office. Would like to replace with IV BRITTANY. I know she has been hesitant in the past but it is dangerously low. Can lead to heart arrhythmias. Should at least be taking PO twice daily. If agreeable, can we add her on for IV potassium today? Would plan to recheck and possibly replace on 11/27 while she is here for treatment. Floresita Carbajal APRN.CHANGE MANAGEMENT DIRECTOR [facility] 11-21-2024 Telephone encounter Note [facility] Care Coordination FOLLOW-UP NOTE Patient identified by name and date of . YES Spoke to patient Summary: (Reason for follow-up) Call to patient for update on symptoms. She states she just started Medrol dose pk today and thinks she is feeling a little better. She denies feeling any worse. She also states that she may need a tooth pulled and asking if ok to have that done? She has an dental appointment 11/26/24 to evaluate. She has her chemo rescheduled from last week to 11/27/24. Asked patient to call in on after her dental appt. and give us an update on urgency and how soon they could schedule procedure if needed. She may also need some dental filings but she is not sure. She denies any other issues/concerns. Patient verbalized when to seek Medical Attention and an understanding of after- hours phone number and process: Yes Care Coordination Plan: No further follow up needed at this time and she will call if symptoms not responding to Medrol dose pack. Christina Amaro RN November 21, 2024 [facility] Work Phone: 11-21-2024 Miscellaneous Notes Jose Raul Care Coordination FOLLOW-UP NOTE Patient identified by name and date of . YES Spoke to patient Summary: (Reason for follow-up) Call to patient for update on symptoms. She states she just started Medrol dose pk today and thinks she is feeling a little better. She denies feeling any worse. She also states that she may need a tooth pulled and asking if ok to have that done? She has an dental appointment 11/26/24 to evaluate. She has her chemo rescheduled from last week to 11/27/24. Asked patient to call in on after her dental appt. and give us an update on urgency and how soon they could schedule procedure if needed. She may also need some dental filings but she is not sure. She denies any other issues/concerns. Patient verbalized when to seek Medical Attention and an understanding of after- hours phone number and process: Yes Care Coordination Plan: No further follow up needed at this time and she will call if symptoms not responding to Medrol dose pack. Christina Amaro RN November 21, 2024 documented in this encounter [facility] 11-19-2024 Telephone encounter Note I called and spoke to Lata gracia and confirmed next week appointment for 1:00 pm for lab work and 1:30 pm for treatment. The rest of her schedule has been updated also Fifi Her [facility] 11-19-2024 Miscellaneous Notes I called and spoke to Lata daughter and confirmed next week appointment for 1:00 pm for lab work and 1:30 pm for treatment. The rest of her schedule has been updated also Fifi Her Patient returned call, left VM on my phone. She would like to cancel chemo treatment for tomorrow and reschedule for next week. Oneida Amaor RN PSS: Please cancel treatment for tomorrow and reschedule for next week, will needs labs repeated prior. Please call patient with date/time. Oneida Amaro RN Call to patient, no answer, left a detailed message with information from Dr. Burgess regarding results, RX and ok to treat tomorrow. Asked patient to call back in to let me know that she received the message and if she plans to come in tomorrow for tx. Oneida Amaro RN Images from the original note were not included. documented in this encounter [facility] 11-19-2024 Telephone encounter Note Patient returned call, left VM on my phone. She would like to cancel chemo treatment for tomorrow and reschedule for next week. Oneida Amaro RN PSS: Please cancel treatment for tomorrow and reschedule for next week, will needs labs repeated prior. Please call patient with date/time. Oneida Amaro RN [facility] Work Phone: 11-19-2024 Telephone encounter Note Call to patient, no answer, left a detailed message with information from Dr. Burgess regarding results, RX and ok to treat tomorrow. Asked patient to call back in to let me know that she received the message and if she plans to come in tomorrow for tx. Oneida Amaro RN [facility] 11-19-2024 Telephone encounter Note Images from the original note were not included. [facility] 11-19-2024 History of Present illness Narrative Radiology Service Progress Note DATE OF SERVICE: November 19, 2024 TIME: 3:59 PM PATIENT IDENTITY VERIFICATION COMPLETED USING TWO (2) STANDARD IDENTIFIERS: Name and Date of confirmed by patient verbally. FALL SCREENING: Has the patient had 2 falls in the last year or 1 fall with injury or currently using an Ambulatory Assistive Device (Walker, Cane, Wheelchair, Crutches, etc.)? No PATIENT GENDER DATA: Assigned female at . status: : No status: NO. PATIENT RELEVANT IMPLANT DATA REVIEWED: Yes PATIENT PRESENTS WITH AN IMPLANTABLE OR ATTACHED SPAR FINISHER: No ALLERGIES: Reviewed and unchanged CONTRAST ALLERGY: NO. EXAM: CT -CONTRAST INDUCED NEPHROPATHY RISK FACTORS: Patient age > 60 years CREATININE: Creatinine Date Value Ref Range Status 11/19/2024 0.70 0.58 - 0.96 mg/dL Final 10/30/2024 0.76 0.58 - 0.96 mg/dL Final 10/23/2024 0.79 0.58 - 0.96 mg/dL Final Estimated Glomerular Filtration Rate Date Value Ref Range Status 11/19/2024 97 >=60 mL/min/1.73m Final Comment: Estimated Glomerular Filtration Rate (eGFR) is calculated using the 2020 CKD-EPI creatinine equation. This equation utilizes serum creatinine, sex, and age as parameters. The creatinine assay has traceable calibration to isotope dilution-mass spectrometry. Refer to KDIGO guidelines for clinical interpretation. In patients with unstable renal function, e.g. those with acute kidney injury, the eGFR may not accurately reflect actual GFR. eGFR- Date Value Ref Range Status 11/22/2021 >60 Final P.O.C.T. RESULTS: POC done: Yes, See Lab Tab November 19, 2024 TREATMENT: N/A PERIPHERAL IV DATA: Ambulatory: A peripheral IV was started in the Left antecubital site with a Angio cath: 18 gauge. RADIOLOGY DEPARTMENT: CT; Exam(s) Completed: PE Study SIGNATURE: RT Pete(Kyree) PATIENT NAME: Lata Smith DATE: November 19, 2024 TIME: 3:59 PM documented in this encounter [facility] 11-19-2024 History of Present illness Narrative (Elements copied from my note dated October 23, 2024, have been reviewed and updated where appropriate, and all reflect current assessment and medical decision making from today's encounter, November 19, 2024) HISTORY OF PRESENT ILLNESS: Lata Smith is a 63 year old female who presented with worsening shortness of breath and hemoptysis for several months. Patient was seen in primary care clinic in May was treated with antibiotic without improvement. She was seen by Dr. Castillo and a CT chest revealed a lung mass and mediastinal adenopathy. She had no fever Chills, rigor, pleuritic chest pain, chest trauma. She has stable exertional dyspnea with activities of daily living, and exertional wheezing. She also complained of severe right hip pain along with pressure on her right side of her chest for couple months. Her staging PET scan on 08/03/2020 unfortunately showed metastatic disease. She had bronchoscopy and EBUS biopsy of the mediastinal lymph node on 08/19/2020. Biopsy was consistent with non-small cell, favoring adenocarcinoma the lung. She is here today to discuss treatment option for metastatic lung cancer. Patient is lives with an adult son. She is quit smoking since October after her heart attack. She denied any any weight loss since her heart attack. She has no hoarseness or dysphagia. No headaches or neurological symptoms. She has severe right hip pain secondary to metastatic disease. MRI scan of brain shows no evidence of metastatic disease. She completed palliative radiation therapy to her right hip. Prior therapies: Pembrolizumab till Zometa till November 2023 Current therapy: 1) Carboplatin pemetrexed from 10-30-24 to present. 2) Zometa done, completed 3 years in November 2023 I ran her case by med onc and rad onc at [facility], their review suggests stability of disease, they recommend observation, possible SBRT to lung if we see further growth of right lung nodule. PET scan from we see progression in chest, new thoracic spine metastasis Reviewed Guardant results, no actionable mutations applicable to non small cell lung cancer. Here for follow up had cough, did z pack, cough better but now more dyspneic, O2 sats lower than normal. 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 continue carboplatin and alimta. 2. Medrol dose pack Written and verbal health teaching given to patient, patient verbalizes understanding and agrees with treatment plan. 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 Hypertension Irritable bowel syndrome Migraine without aura Obesity, unspecified Other forms of migraine ST elevation myocardial infarction involving right coronary artery (HCC) 06/28/2020 Tobacco use disorder PAST SURGICAL HISTORY Procedure Laterality Date CHOLECYSTECTOMY Cholecystectomy COLONOSCOPY FLX DX W/COLLJ SPEC WHEN PFRMD 11/20/2012 Colonoscopy F TOTAL ABDOMINAL HYSTERECTOMY 05/2013 INCISE FINGER TENDON SHEATH Right 07/21/2021 Right ring trigger finger release INCISE FINGER TENDON SHEATH Left 02/26/2023 Left ring trigger finger release LAPAROSCOPIC APPENDECTOMY 02/17/2015 LIG/TRNSXJ FLP TUBE ABDL/VAG APPR UNI/BI 1982 Tubal ligation NEUROPLASTY &/TRANSPOS MEDIAN NRV CARPAL TUNNE 04/29/2004 Carpal tunnel decomp,left NEUROPLASTY &/TRANSPOS MEDIAN NRV CARPAL TUNNE 05/17/2004 Carpal tunnel decomp, right NOVASURE PAST SURGICAL HISTORY OF cardiac stents FAMILY HISTORY Problem Relation Age of Onset Blood Disease Mother Alzheimer's Disease Father other (lung cancer) Brother 3rd brother, small cell Diabetes Maternal Grandmother Cerebral Embolism Brother oldest brother, aneurysm Cancer Brother 2nd brother, some type of skin cancer Social History Tobacco Use Smoking status: Every Day Current packs/day: 2.00 Average packs/day: 2.0 packs/day for 42.0 years (84.0 ttl pk-yrs) Types: Cigarettes Smokeless tobacco: Never Tobacco comments: Was down to 1PPD then 3cig per week but back to 1PPD Vaping Use Vaping status: Former Substance Use Topics Alcohol use: Yes Comment: Occasional glass of wine. A few per month Drug use: Yes Types: Marijuana Comment: every 2-3 days ALLERGIES: ALLERGIES Allergen Reactions Augmentin [Amoxicil* Diarrhea Tolerates plain penicillins such as amoxicillin Penicillins Hives Also GI upset. CURRENT OUTPATIENT MEDICATIONS: azithromycin (ZITHROMAX Z-TU) 250 mg tablet TAKE 2 TABS ON THE FIRST DAY, THEN ONE TAB DAILY FOR 4 DAYS. folic acid 1 mg tablet Take 1 tablet by mouth once daily. potassium chloride (KLOR-CON) 20 mEq packet Take 20 mEq by mouth two times a day. fluticasone-salmeterol (ADVAIR DISKUS) 500-50 mcg/dose dsdv Inhale 1 Puff as instructed two times a day. RINSE AND GARGLE MOUTH WITH WATER AFTER EACH USE. umeclidinium (INCRUSE ELLIPTA) 62.5 mcg/actuation inhaler Inhale 1 Puff as instructed once daily. promethazine (PHENERGAN) 25 mg tablet Take 1 tablet by mouth every 6 hours as needed for nausea/vomiting. benzonatate (TESSALON PERLE) 100 mg capsule Take 2 capsules by mouth three times a day as needed for cough. Take 1-3 capsules by mouth every 6-8 hours as needed. ibuprofen (MOTRIN) 800 mg tablet Take 1 tablet by mouth every 8 hours as needed for pain. multivitamin tablet Take 1 tablet by mouth once daily. furosemide (LASIX) 20 mg tablet Take 1-2 tablets by mouth once daily as needed. losartan (COZAAR) 25 mg tablet Take 1 tablet by mouth once daily. naloxone 4 mg/actuation nasal spray (NARCAN) Use 1 spray in one nostril as needed for overdose. May repeat every 2 to 3 min in alternating nostrils until medical assistance is available albuterol (PROVENTIL) 2.5 mg /3 mL (0.083 %) nebulizer solution Use 3 mL via nebulizer every 6 hours as needed for wheezing/shortness of breath. 1 vial contains 3 ml. albuterol HFA (VENTOLIN HFA) 90 mcg/actuation inhaler Inhale 2 Puffs as instructed every 4 hours as needed for Wheezing/Shortness of Breath. Do not replace with ProAir. aluminum-magnesium hydroxide-simethicone 200-200-20 mg/5 mL suspension Take 15 mL by mouth every 6 hours as needed. diclofenac (VOLTAREN) 1 % topical gel Apply 2 g to affected area four times a day as needed (upper extremity joint(s)). fluticasone (FLONASE) 50 mcg/actuation nasal spray Use 2 Sprays in each nostril once daily. Rinse mouth after use hydroCHLOROthiazide 25 mg tablet Take 1 tablet by mouth once daily. rosuvastatin (CRESTOR) 40 mg tablet Take 1 tablet by mouth once daily. simethicone, chewable (WY-ACID GAS RELIEF,SIMETHICON,) 80 mg chewable tablet Take 1 tablet by mouth every 6 hours as needed. traZODone (DESYREL) 50 mg tablet Take 1 tablet by mouth at bedtime as needed. verapamil ER (VERELAN) 120 mg 24 hr capsule Take 1 capsule by mouth once daily. esomeprazole (NEXIUM) 20 mg capsule Take 1 capsule by mouth daily before breakfast. 1/2 hr before meal. aspirin, enteric coated (ASPIRIN, ENTERIC COATED) 81 mg EC tablet Take 1 tablet by mouth once daily. nystatin (MYCOSTATIN) 100,000 unit/mL suspension Take 5 mL by mouth four times daily. 1tsp swish in mouth for several minutes, then swallow (or expectorate) 4 times daily until gone. senna (SENOKOT) 8.6 mg tab Take 2 tablets by mouth twice daily. oxyCODONE-acetaminophen (PERCOCET) 7.5-325 mg tablet Take 1 tablet by mouth every 8 hours as needed for pain. rizatriptan (MAXALT) 10 mg tablet Take 10 mg by mouth as needed. May repeat in 2 hours if needed cyclobenzaprine (FLEXERIL) 10 mg tablet Take 10 mg by mouth twice daily as needed for Muscle Spasm. polyethylene glycol 3350 (MIRALAX) 17 gram/dose powder Take 17 g by mouth once daily. NOT NEEDING NOW Nebulizer NEBULIZER FOR HOME USE with supplies. DX: (J45.40) Moderate persistent asthma without complication (primary encounter diagnosis) blood sugar diagnostic (BLOOD GLUCOSE TEST) test strip Test blood sugar(s) 1 times daily. Dx: (R73.9) Hyperglycemia; (R73.03) Prediabetes Insulin: No REVIEW OF SYSTEMS: GENERAL: No fever, night sweats, weight loss or malaise. All other reviewed and negative other than HPI. PHYSICAL EXAMINATION: VITAL SIGNS: BP 119/76 Pulse 77 Temp (Src) 97.6 (Temporal) Wt 187 lb (84.8kg) SpO2 90% LMP 11/04/2012 GENERAL APPEARANCE: Well appearing, in no acute distress, alert and oriented x3, well-hydrated, well nourished. LUNGS: Diffuse wheezing HEART: Reg I spent a total of 45 minutes on the date of the service which included preparing to see the patient, [id number] patient care, completing clinical documentation, obtaining and/or reviewing separately obtained history, performing a medically appropriate examination, counseling and educating the patient/family/caregiver, independently interpreting results (not separately reported), and communicating results to the patient/family/caregiver. Also review of images, plan discussed with animal care assistant, nursing. Electronically Signed: Sandoval Burgess MD November 19, 2024 documented in this encounter [facility] 11-19-2024 History of Present illness Narrative Radiology Service Progress Note PATIENT NAME: Lata Smith DATE OF SERVICE: November 19, 2024 TIME: 1:51 PM PATIENT IDENTITY VERIFICATION COMPLETED USING TWO (2) IDENTIFIERS: Name and Date of confirmed by patient verbally. FALL SCREENING: Has the patient had 2 falls in the last year or 1 fall with injury or currently using an Ambulatory Assistive Device (Walker, Cane, Wheelchair, Crutches, etc.)? Yes, Patient High Risk for Falls What interventions were put in place to prevent falls during this visit? Increased Observations by Caregivers PATIENT GENDER DATA: Assigned female at . status: : No status: NO. PATIENT RELEVANT IMPLANT DATA REVIEWED: Not Applicable PATIENT PRESENTS WITH AN IMPLANTABLE OR ATTACHED SPAR FINISHER: No RADIOLOGY DEPARTMENT: General X-ray: Exam(s) Completed: Chest X-Ray PERIPHERAL IV DATA: Not applicable SIGNED BY: RT Timothy(R) November 19, 2024 1:51 PM documented in this encounter [facility] 11-18-2024 Telephone encounter Note Patient returned call. Aware of message from Dr. Burgess. She agrees she will go to the ED with any worsening/concerning symptoms. She will come in earlier tomorrow to get CXR. Oneida Amaro RN [facility] 11-18-2024 Miscellaneous Notes Patient returned call. Aware of message from Dr. Burgess. She agrees she will go to the ED with any worsening/concerning symptoms. She will come in earlier tomorrow to get CXR. Oneida Amaro RN Dr. Burgess would like to get a CXR tomorrow prior to OV. Patient to go to the ED between now and then for any worsening symptoms. Oneida Amaro RN Call to patient, no answer, left message to return call to me. Oneida Amaro RN [place] Care Coordination FOLLOW-UP NOTE Patient identified by name and date of . YES Spoke to patient Summary: (Reason for follow-up) Call to patient for follow up from previous call regarding productive cough, shortness of breath. States not good and that she feels more short of breath. She walks 10 feet from bed to bathroom and has to catch her breath. She denies fevers, pain. Continues with productive cough, light green, same as before but she does state that her cough is better. She has been checking Sp02 and runs between 92-99%. She is using her inhalers and doesn't feel like they are helping. She has 2 more days before completing the Zpack. Patient has labs/OV tomorrow with Dr. Burgess and plans to come in for that but wants to hold off on treatment until she feels better. She is aware that I will speak with him and call her back. New Referrals Needed: No Is the patient having any pain? No Patient verbalized when to seek Medical Attention and an understanding of after- hours phone number and process: Yes Care Coordination Plan: Will follow up with Dr. Burgess with update and call back with further instructions. Christina Amaro RN November 18, 2024 documented in this encounter [facility] 11-18-[address] Burgess would like to get a CXR tomorrow prior to OV. Patient to go to the ED between now and then for any worsening symptoms. Oneida Amaro RN Call to patient, no answer, left message to return call to me. Oneida Amaro RN [facility] 11-18-2024 Telephone encounter Note Jose Raul Care Coordination FOLLOW-UP NOTE Patient identified by name and date of . YES Spoke to patient Summary: (Reason for follow-up) Call to patient for follow up from previous call regarding productive cough, shortness of breath. States not good and that she feels more short of breath. She walks 10 feet from bed to bathroom and has to catch her breath. She denies fevers, pain. Continues with productive cough, light green, same as before but she does state that her cough is better. She has been checking Sp02 and runs between 92-99%. She is using her inhalers and doesn't feel like they are helping. She has 2 more days before completing the Zpack. Patient has labs/OV tomorrow with Dr. Burgess and plans to come in for that but wants to hold off on treatment until she feels better. She is aware that I will speak with him and call her back. New Referrals Needed: No Is the patient having any pain? No Patient verbalized when to seek Medical Attention and an understanding of after- hours phone number and process: Yes Care Coordination Plan: Will follow up with Dr. Burgess with update and call back with further instructions. Christina Amaro RN November 18, 2024 [facility] 11-14-2024 Telephone encounter Note Care Coordination Triage Note [facility] Situation: Patient reports Other fatigue, cough, SOB, chills Background: NSCLC, carboplatin/Alimta started 10/30/24 Assessment: When did you first start to notice your fatigue? This past week Are you sleeping at night? yes About how many hours? 10-11 Denies body aches/pain Sinus congestion- yes, especially when I'm done coughing Headache: after treatment 4-5 days, resolved. Dizziness: once in awhile Fluid intake- 4-6 cans of soda daily. Appetite: fair Diarrhea: 4 episodes, imodium 5 tablets NAUSEA When did the nausea start? Yes Is it constant or intermittent? Intermittent, takes promethazine which helps When was your last bowel movement? Today Was it normal for you? Watery VOMITING Are you also having any vomiting? Dry heaves yesterday SOB Do you feel short of breath? Yes When did you first notice the shortness of breath? Asthma and COPD has SOB at baseline. 5-6 days ago SOB was worse If worsening, has it been slowly or quickly worsening? slowly Are you short of breath at rest? After coughing Is your shortness of breath worse when you lie down? no Do you have a pulse ox at home? On her watch If yes, what is your current reading? 99 Breathing gets worse when lying down. Any pain with breathing? no SOB gets worse when ambulating. Wheezing intermittently Albuterol, Advair, Incruse FEVER Do you have a recent fever? 99 F today, chills Any recent exposure to covid or other respiratory virus? Son had bronchitis. Son did not get tested for respiratory illnesses. COUGH Do you have a cough? yes If yes, when did it start? A month or so. Had a URI prior to starting treatment. 2 rounds of steroids and antibiotics. Patient stated 3 days ago the cough got worse. Is your cough productive? yes What color is the sputum? Light green Does your cough worsen with activity? Are you taking anything for the cough? Ladan Riojas If yes, what are you taking and has it helped? yes Sometimes she gets lightheaded from coughing. Recommendations: Per RNCC, spoke to Dr. Burgess. He will send an antibiotic to [facility] in [place]. If patient has worsening symptoms, she should go to the ED. Patient was informed of Dr. Burgess's response and stated understanding. Mckenzie Jones RN November 14, 2024 3:33 PM [facility] 11-14-2024 Miscellaneous Notes Care Coordination Triage Note [facility] Situation: Patient reports Other fatigue, cough, SOB, chills Background: NSCLC, carboplatin/Alimta started 10/30/24 Assessment: When did you first start to notice your fatigue? This past week Are you sleeping at night? yes About how many hours? 10-11 Denies body aches/pain Sinus congestion- yes, especially when I'm done coughing Headache: after treatment 4-5 days, resolved. Dizziness: once in awhile Fluid intake- 4-6 cans of soda daily. Appetite: fair Diarrhea: 4 episodes, imodium 5 tablets NAUSEA When did the nausea start? Yes Is it constant or intermittent? Intermittent, takes promethazine which helps When was your last bowel movement? Today Was it normal for you? Watery VOMITING Are you also having any vomiting? Dry heaves yesterday SOB Do you feel short of breath? Yes When did you first notice the shortness of breath? Asthma and COPD has SOB at baseline. 5-6 days ago SOB was worse If worsening, has it been slowly or quickly worsening? slowly Are you short of breath at rest? After coughing Is your shortness of breath worse when you lie down? no Do you have a pulse ox at home? On her watch If yes, what is your current reading? 99 Breathing gets worse when lying down. Any pain with breathing? no SOB gets worse when ambulating. Wheezing intermittently Albuterol, Advair, Incruse FEVER Do you have a recent fever? 99 F today, chills Any recent exposure to covid or other respiratory virus? Son had bronchitis. Son did not get tested for respiratory illnesses. COUGH Do you have a cough? yes If yes, when did it start? A month or so. Had a URI prior to starting treatment. 2 rounds of steroids and antibiotics. Patient stated 3 days ago the cough got worse. Is your cough productive? yes What color is the sputum? Light green Does your cough worsen with activity? Are you taking anything for the cough? Ladan Riojas If yes, what are you taking and has it helped? yes Sometimes she gets lightheaded from coughing. Recommendations: Per RNCC, spoke to Dr. Burgess. He will send an antibiotic to [facility] in [place]. If patient has worsening symptoms, she should go to the ED. Patient was informed of Dr. Burgess's response and stated understanding. Mckenzie Jones RN November 14, 2024 3:33 PM Patient called stating Since last chemo treatment she's been light headed, diarrhea, upset stomach, fatigue and a cough that won't go away. Please call patient when able Maylin Haley documented in this encounter [facility] 11-14-2024 Telephone encounter Note Patient called stating Since last chemo treatment she's been light headed, diarrhea, upset stomach, fatigue and a cough that won't go away. Please call patient when able Maylin Haley [facility] 11-07-2024 Telephone encounter Note TOXICITY CHECK SYMPTOM ASSESSMENT The patient is on Carbo/Alimta, C1D1 10/30/24 Spoke to patient, states she is starting to feel better, was out for the first time yesterday and thinks she did too much, was very fatigued this am, feeling better now. Headache: Yes, for a few day, took Tylenol and helped Visual Changes: No Dizziness: No Do you have any periods of confusion? No Mood changes: No Mouth or throat pain: No Appetite: no changes in appetite, appetite fair, appetite is getting better and states she feels she is getting in fluids ok. Taste changes: No Nausea: Yes, for one day, had nausea, dry heaves at 5am, took phenergan and helped Vomiting: No Heartburn: No. Weight gain/loss: Unable to assess Episodes of palpitations/chest discomfort/pressure/pain No Shortness of breath: No Cough: Yes; states this is better, has been getting over an URI from 1 month ago. Diarrhea: yes, states not a whole lot took Immodium x3, resolved. Constipation: no Bladder/Urinary Changes: None Pain: No=0 (pain 0 on a scale of 0-10). Fever: No Chills: No Cold sensitivity: No Numbness/weakness: No Edema: No Skin changes: No Itching: No Yellowing of skin or eyes: No Musculoskeletal/joint changes/issues No Bleeding issues: No Activity Level (0-100%): decreased Does the patient need interventions or same day appointment:No Reinforced CURRENT treatment education based on current and anticipated symptoms. Discussed port/line care and patient verbalizes understanding: Not Applicable Patient instructed to contact office or after hours Hematology/Oncology fellow for: temperature >= 100.4; questions or concerns. Patient verbalized understanding of when to seek medical attention and after hours number protocol. hCristina Amaro RN [facility] Work Phone: 11-07-2024 Miscellaneous Notes TOXICITY CHECK SYMPTOM ASSESSMENT The patient is on Carbo/Alimta, C1D1 10/30/24 Spoke to patient, states she is starting to feel better, was out for the first time yesterday and thinks she did too much, was very fatigued this am, feeling better now. Headache: Yes, for a few day, took Tylenol and helped Visual Changes: No Dizziness: No Do you have any periods of confusion? No Mood changes: No Mouth or throat pain: No Appetite: no changes in appetite, appetite fair, appetite is getting better and states she feels she is getting in fluids ok. Taste changes: No Nausea: Yes, for one day, had nausea, dry heaves at 5am, took phenergan and helped Vomiting: No Heartburn: No. Weight gain/loss: Unable to assess Episodes of palpitations/chest discomfort/pressure/pain No Shortness of breath: No Cough: Yes; states this is better, has been getting over an URI from 1 month ago. Diarrhea: yes, states not a whole lot took Immodium x3, resolved. Constipation: no Bladder/Urinary Changes: None Pain: No=0 (pain 0 on a scale of 0-10). Fever: No Chills: No Cold sensitivity: No Numbness/weakness: No Edema: No Skin changes: No Itching: No Yellowing of skin or eyes: No Musculoskeletal/joint changes/issues No Bleeding issues: No Activity Level (0-100%): decreased Does the patient need interventions or same day appointment:No Reinforced CURRENT treatment education based on current and anticipated symptoms. Discussed port/line care and patient verbalizes understanding: Not Applicable Patient instructed to contact office or after hours Hematology/Oncology fellow for: temperature >= 100.4; questions or concerns. Patient verbalized understanding of when to seek medical attention and after hours number protocol. Christina Amaro RN documented in this encounter [facility] 10-31-2024 Telephone encounter Note CYCLE 1/DAY 1 POST TREATMENT CALL Today's date: October 31, 2024 Treatment Regimen: Carboplatin/Alimta C1D1 Date: 10/30/24 Called patient to follow-up on symptom management. Spoke with patient, ok SYMPTOM ASSESSMENT Neuro: Headache, yes, not real bad, annoying aware ok to use Tylenol. She will take some after this phone call. States her hands are a little bit shaky. CV/Resp: None GI/: Appetite: no changes in appetite, appetite good, denies other GI issues. Integument: None Activity: Activity Level (0-100%): same as baseline States slept but not as well as she usually does. Pain: No=0 (pain 0 on a scale of 0-10). Fever: No Chills: No Any new referrals needed? No Reinforced CURRENT treatment education based on current and anticipated symptoms. Discussed port/line care and patient verbalizes understanding: Not Applicable Patient instructed to contact office or after hours Hematology/Oncology fellow for: temperature >= 100.4; questions or concerns. Patient verbalized understanding of when to seek medical attention and after hours number protocol. Christina Amaro RN [facility] Work Phone: 10-31-2024 Miscellaneous Notes CYCLE 1/DAY 1 POST TREATMENT CALL Today's date: October 31, 2024 Treatment Regimen: Carboplatin/Alimta C1D1 Date: 10/30/24 Called patient to follow-up on symptom management. Spoke with patient, ok SYMPTOM ASSESSMENT Neuro: Headache, yes, not real bad, annoying aware ok to use Tylenol. She will take some after this phone call. States her hands are a little bit shaky. CV/Resp: None GI/: Appetite: no changes in appetite, appetite good, denies other GI issues. Integument: None Activity: Activity Level (0-100%): same as baseline States slept but not as well as she usually does. Pain: No=0 (pain 0 on a scale of 0-10). Fever: No Chills: No Any new referrals needed? No Reinforced CURRENT treatment education based on current and anticipated symptoms. Discussed port/line care and patient verbalizes understanding: Not Applicable Patient instructed to contact office or after hours Hematology/Oncology fellow for: temperature >= 100.4; questions or concerns. Patient verbalized understanding of when to seek medical attention and after hours number protocol. Christina Amaro RN documented in this encounter [facility] 10-30-2024 History of Present illness Narrative K 2.9, Dr. Burgess aware. Pt is refusing IV replacement today due to intolerance of burning sensation through IV in the past. Per Dr. Green, pt is to take 20 meq TID for 1 week then back to BID. Pt also aware she should avoid taking ibuprofen for the next 48 hours because it can increase toxicity of alimta. Pt verbalized understanding. documented in this encounter [facility] 10-27-2024 History of Present illness Narrative Patient teaching was completed over the phone. Christina Amaro RN Health Coach Pre Chemo Patient identified by name and date of . YES Confirmed date and time for chemotherapy ? YES Other appointments (labs, imaging) discussed? YES Discussed where to park (personal property assessor), charge for parking YES Discussed where to report (building/floor) YES Any pre-medications ordered? NO Described the infusion room and what to expect. (What to wear, what to bring [iPad, books] amount of time treatment can take, meals and CC options for food) YES Note: na Discussed whether the patient can eat prior to labs and treatment. YES Who is driving you to and from treatment? Son Discussed why it is important to bring someone with you. Yes, first treatment Resources discussed (music therapy, Art therapy, pet therapy, etc.) YES Education on chemotherapy (drug, side effects) discussed and that the patient will be receiving a C1D1 call within 7 days of treatment. YES Other topics discussed, interventions needed: na Christina Amaro RN ONCOLOGY PATIENT EDUCATION NOTE TOPIC: Chemotherapy, Medications: Carboplatin/Alimta patient called today for education for treatment of Non-Small Cell Lung Cancer Anticipated/Scheduled start date: 10/30/24 READINESS TO LEARN: COGNITIVE ABILITY: Alert and oriented MOTIVATION TO LEARN: Interested FAMILY SUPPORT: High - Very involved in pt care INSTRUCTION PROVIDED TO: Patient INSTRUCTION PROVIDED BY: Nurse Coordinator PATIENT LEARNS BEST BY: Multiple Methods FACTORS AFFECTING LEARNING: None PHYSICAL LIMITATIONS AFFECTING LEARNING: None LEARNING RESPONSE METHOD OF INSTRUCTION: Individual instruction Written instruction/Handouts Verbal instruction PATIENT/FAMILY RESPONSE: Verbalizes understanding of: CHEMOTHERAPY-Regimen, toxicity and side effects FOLLOW UP PLAN: Recommend - Recommend continued instruction and follow up as directed Contact information given. SUPPLEMENTAL MATERIAL: Written material was provided at this visit with the following information: - Chemotherapy education was provided by a pharmacist NO - Side effect management information was provided/discussed including but not limited to: anemia, electrolyte disturbances, fatigue, infection, nausea/vomitting, neutropenia, rash, taste changes, thrombocytopenia YES - Provided important phone numbers and contacts during and after hours. YES - Provided information on symptoms that require immediate assistance. YES - Provided Chemotherapy when to call handouts YES - Preventing infection. YES - Treatment schedule and confirmation of appointment times. YES - Available support groups. YES - The importance of contraception during the course of chemotherapy NA - Neutropenic fever protocol discussed with patient, which included the importance of reporting any fever of 100.4F (38.0C) or greater to the healthcare team as noted on the provided wallet card and/or magnet. YES Time Spent: 45 minutes\ REFERRAL (RECOMMENDATION): N/A Christina Amaro RN documented in this encounter [facility] 10-23-2024 Telephone encounter Note Scheduled patient as directed Maylin Haley [facility] 10-23-2024 Miscellaneous Notes Scheduled patient as directed Maylin Haley Chemo Education - 10/27 Start Q3wk Carbo/Alimta, CBC/CMP,straight back to start CBC/CMP/OV with all other cycles Maylin Haley documented in this encounter [facility] 10-23-[address] Burgess completed/signed note from today faxed to number provided. Oneida Amaro RN [facility] Work Phone: 10-23-[address] Burgess completed/signed note from today faxed to number provided. Oneida Amaro RN Received a call from Olga at [facility] two days ago regarding the plan for this patient. Spoke to Oneida who stated patient has an appointment with Dr. Burgess on 10/23/24 and the plan will be discussed at that time. Called [facility] and spoke to Corbin. Corbin is requesting that our office fax over the office visit notes after that office visit so they are aware of the plan moving forward. Please fax to Corbin with [facility] at [phone] once complete. Thank you. Mckenzie Jones RN documented in this encounter [facility] 10-23-2024 Telephone encounter Note Chemo Education - 10/27 Start Q3wk Carbo/Alimta, CBC/CMP,straight back to start CBC/CMP/OV with all other cycles Maylin Haley [facility] 10-23-2024 History of Present illness Narrative IRB#: [id number], [facility]# [id number]: A Randomized, Phase III Study of Firstline Immunotherapy alone or in Combination with Chemotherapy in Induction/Maintenance or Postprogression in Advanced Nonsquamous Non-Small Cell Lung Cancer (NSCLC) with Immunobiomarker SIGNature-driven Analysis IC signed 09/13/2020 Randomized 09/22/2020 to treatment arm A: 1st line [id number] (pembrolizumab) followed by 2nd line Pemetrexed/Carboplatin. Study ID: [id number] Patient off study treatment protocol 10/17/2022 CTD - 1 EDTA 10mL and 1 brown/black Streck Cell-Free DNA Tube 10 mL - collected at 11:05 AM peripheral blood draw - not processed Shipped via [employer] at room temp Tracking -[id number] Ship to: [facility] Department of Pathology, [address] Tissue Qualification Laboratory for [facility], Room G1.3598 [address] [place] [address] PATRICIO Jacobson, RN, Clinical Research Nurse [phone] documented in this encounter [facility] 10-23-2024 History of Present illness Narrative (Elements copied from my note dated September 30, 2024, have been reviewed and updated where appropriate, and all reflect current assessment and medical decision making from today's encounter, October 23, 2024) HISTORY OF PRESENT ILLNESS: Lata Smith is a 63 year old female who presented with worsening shortness of breath and hemoptysis for several months. Patient was seen in primary care clinic in May was treated with antibiotic without improvement. She was seen by Dr. Castillo and a CT chest revealed a lung mass and mediastinal adenopathy. She had no fever Chills, rigor, pleuritic chest pain, chest trauma. She has stable exertional dyspnea with activities of daily living, and exertional wheezing. She also complained of severe right hip pain along with pressure on her right side of her chest for couple months. Her staging PET scan on 08/03/2020 unfortunately showed metastatic disease. She had bronchoscopy and EBUS biopsy of the mediastinal lymph node on 08/19/2020. Biopsy was consistent with non-small cell, favoring adenocarcinoma the lung. She is here today to discuss treatment option for metastatic lung cancer. Patient is lives with an adult son. She is quit smoking since October after her heart attack. She denied any any weight loss since her heart attack. She has no hoarseness or dysphagia. No headaches or neurological symptoms. She has severe right hip pain secondary to metastatic disease. MRI scan of brain shows no evidence of metastatic disease. She completed palliative radiation therapy to her right hip. Current therapy: 1) Pembrolizumab. 2) Zometa done, completed 3 years in November 2023 I ran her case by med onc and rad onc at [facility], their review suggests stability of disease, they recommend observation, possible SBRT to lung if we see further growth of right lung nodule. Here for follow up, reviewed PET scan from ,07-01 we see progression in chest, new thoracic spine metastasis Reviewed Guardant results, no actionable mutations applicable to non small cell lung cancer. 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 Switch therapy to carboplatin and alimta. Written and verbal health teaching given to patient, patient verbalizes understanding and agrees with treatment plan. 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 Hypertension Irritable bowel syndrome Migraine without aura Obesity, unspecified Other forms of migraine ST elevation myocardial infarction involving right coronary artery (HCC) 06/28/2020 Tobacco use disorder PAST SURGICAL HISTORY Procedure Laterality Date CHOLECYSTECTOMY Cholecystectomy COLONOSCOPY FLX DX W/COLLJ SPEC WHEN PFRMD 11/20/2012 Colonoscopy F TOTAL ABDOMINAL HYSTERECTOMY 05/2013 INCISE FINGER TENDON SHEATH Right 07/21/2021 Right ring trigger finger release INCISE FINGER TENDON SHEATH Left 02/26/2023 Left ring trigger finger release LAPAROSCOPIC APPENDECTOMY 02/17/2015 LIG/TRNSXJ FLP TUBE ABDL/VAG APPR UNI/BI 1982 Tubal ligation NEUROPLASTY &/TRANSPOS MEDIAN NRV CARPAL TUNNE 04/29/2004 Carpal tunnel decomp,left NEUROPLASTY &/TRANSPOS MEDIAN NRV CARPAL TUNNE 05/17/2004 Carpal tunnel decomp, right NOVASURE PAST SURGICAL HISTORY OF cardiac stents FAMILY HISTORY Problem Relation Age of Onset Blood Disease Mother Alzheimer's Disease Father other (lung cancer) Brother 3rd brother, small cell Diabetes Maternal Grandmother Cerebral Embolism Brother oldest brother, aneurysm Cancer Brother 2nd brother, some type of skin cancer Social History Tobacco Use Smoking status: Every Day Current packs/day: 2.00 Average packs/day: 2.0 packs/day for 42.0 years (84.0 ttl pk-yrs) Types: Cigarettes Smokeless tobacco: Never Tobacco comments: Was down to 1PPD then 3cig per week but back to 1PPD Vaping Use Vaping status: Former Substance Use Topics Alcohol use: Yes Comment: Occasional glass of wine. A few per month Drug use: Yes Types: Marijuana Comment: every 2-3 days ALLERGIES: ALLERGIES Allergen Reactions Augmentin [Amoxicil* Diarrhea Tolerates plain penicillins such as amoxicillin Penicillins Hives Also GI upset. CURRENT OUTPATIENT MEDICATIONS: potassium chloride (KLOR-CON) 20 mEq packet Take 20 mEq by mouth two times a day. fluticasone-salmeterol (ADVAIR DISKUS) 500-50 mcg/dose dsdv Inhale 1 Puff as instructed two times a day. RINSE AND GARGLE MOUTH WITH WATER AFTER EACH USE. umeclidinium (INCRUSE ELLIPTA) 62.5 mcg/actuation inhaler Inhale 1 Puff as instructed once daily. blood sugar diagnostic (BLOOD GLUCOSE TEST) test strip Test blood sugar(s) 1 times daily. Dx: (R73.9) Hyperglycemia; (R73.03) Prediabetes Insulin: No promethazine (PHENERGAN) 25 mg tablet Take 1 tablet by mouth every 6 hours as needed for nausea/vomiting. benzonatate (TESSALON PERLE) 100 mg capsule Take 2 capsules by mouth three times a day as needed for cough. Take 1-3 capsules by mouth every 6-8 hours as needed. ibuprofen (MOTRIN) 800 mg tablet Take 1 tablet by mouth every 8 hours as needed for pain. multivitamin tablet Take 1 tablet by mouth once daily. furosemide (LASIX) 20 mg tablet Take 1-2 tablets by mouth once daily as needed. losartan (COZAAR) 25 mg tablet Take 1 tablet by mouth once daily. albuterol (PROVENTIL) 2.5 mg /3 mL (0.083 %) nebulizer solution Use 3 mL via nebulizer every 6 hours as needed for wheezing/shortness of breath. 1 vial contains 3 ml. albuterol HFA (VENTOLIN HFA) 90 mcg/actuation inhaler Inhale 2 Puffs as instructed every 4 hours as needed for Wheezing/Shortness of Breath. Do not replace with ProAir. aluminum-magnesium hydroxide-simethicone 200-200-20 mg/5 mL suspension Take 15 mL by mouth every 6 hours as needed. diclofenac (VOLTAREN) 1 % topical gel Apply 2 g to affected area four times a day as needed (upper extremity joint(s)). fluticasone (FLONASE) 50 mcg/actuation nasal spray Use 2 Sprays in each nostril once daily. Rinse mouth after use hydroCHLOROthiazide 25 mg tablet Take 1 tablet by mouth once daily. rosuvastatin (CRESTOR) 40 mg tablet Take 1 tablet by mouth once daily. simethicone, chewable (WY-ACID GAS RELIEF,SIMETHICON,) 80 mg chewable tablet Take 1 tablet by mouth every 6 hours as needed. traZODone (DESYREL) 50 mg tablet Take 1 tablet by mouth at bedtime as needed. verapamil ER (VERELAN) 120 mg 24 hr capsule Take 1 capsule by mouth once daily. esomeprazole (NEXIUM) 20 mg capsule Take 1 capsule by mouth daily before breakfast. 1/2 hr before meal. aspirin, enteric coated (ASPIRIN, ENTERIC COATED) 81 mg EC tablet Take 1 tablet by mouth once daily. nystatin (MYCOSTATIN) 100,000 unit/mL suspension Take 5 mL by mouth four times daily. 1tsp swish in mouth for several minutes, then swallow (or expectorate) 4 times daily until gone. senna (SENOKOT) 8.6 mg tab Take 2 tablets by mouth twice daily. (Patient taking differently: Take 2 tablets by mouth two times a day as needed.) oxyCODONE-acetaminophen (PERCOCET) 7.5-325 mg tablet Take 1 tablet by mouth every 8 hours as needed for pain. rizatriptan (MAXALT) 10 mg tablet Take 10 mg by mouth as needed. May repeat in 2 hours if needed cyclobenzaprine (FLEXERIL) 10 mg tablet Take 10 mg by mouth twice daily as needed for Muscle Spasm. polyethylene glycol 3350 (MIRALAX) 17 gram/dose powder Take 17 g by mouth once daily. NOT NEEDING NOW Nebulizer NEBULIZER FOR HOME USE with supplies. DX: (J45.40) Moderate persistent asthma without complication (primary encounter diagnosis) naloxone 4 mg/actuation nasal spray (NARCAN) Use 1 spray in one nostril as needed for overdose. May repeat every 2 to 3 min in alternating nostrils until medical assistance is available REVIEW OF SYSTEMS: GENERAL: No fever, night sweats, weight loss or malaise. All other reviewed and negative other than HPI. PHYSICAL EXAMINATION: VITAL SIGNS: BP 110/67 Pulse 97 Temp 98.8 Wt 200 lb (90.7kg) SpO2 91% LMP 11/04/2012 GENERAL APPEARANCE: Well appearing, in no acute distress, alert and oriented x3, well-hydrated, well nourished. I spent a total of 45 minutes on the date of the service which included preparing to see the patient, [id number] patient care, completing clinical documentation, obtaining and/or reviewing separately obtained history, performing a medically appropriate examination, counseling and educating the patient/family/caregiver, independently interpreting results (not separately reported), and communicating results to the patient/family/caregiver. Also review of images, plan discussed with animal care assistant, nursing. Electronically Signed: Sandoval Burgess MD October 23, 2024 Est. Pt. Discuss guardant results Hoa Gaines LPN documented in this encounter [facility] 10-17-2024 Telephone encounter Note Received a call from Olga at [facility] two days ago regarding the plan for this patient. Spoke to Oneida who stated patient has an appointment with Dr. Burgess on 10/23/24 and the plan will be discussed at that time. Called [facility] and spoke to Corbin. Corbin is requesting that our office fax over the office visit notes after that office visit so they are aware of the plan moving forward. Please fax to Corbin with [facility] at [phone] once complete. Thank you. Mckenzie Jones RN [facility] 10-17-2024 History of Present illness Narrative RECIST TUMOR MEASUREMENTS IRB #: [id number] / [id number] Image Modality: PET Image Date: 09/15/2024 Date of Baseline Scan: 09/16/2020 Date of Comparison Scan: 05/05/2024 Research Nurse: Liza Canas Follow-Up Measurement Lesion A right lower lobe nodule, Lesion B lymph node,right hilar Sum Date Size (3m) Series/Image # Size (mm) Series/Image # Baseline: 09/16/2020 3.0 > 30 mm Series 9, Image 77 22 mm Series 7, Image 75 52 06/22/2021 16 mm Series 6 Image 78 No longer Visible 16 08/26/2021 14 mm Series 9 Image 79 No longer Visible 14 11/18/2021 14 mm Series 6, Image 76 No longer Visible 14 02/10/2022 16 mm Series 9, Image 82 No longer Visible 16 05/05/2022 14 mm Series 6, Image 83 No longer Visible 14 08/10/2022 14 mm Series 9, Image 81 No longer Visible 14 11/13/2022 1.3 - 13 mm Series 9, Image 78 No longer Visible 13 mm 02/10/2023 1.3 - 13 mm Series 9, Image 86 No longer Visible 13 mm 05/11/2023 1.2 - 12 mm Series 9, Image 75 No longer Visible 12mm 08/10/2023 1.2 - 12 mm Series 8, Image 72 No longer Visible 12 mm 11/12/2023 1.3 - 13 mm Series 3, Image 96 No longer Visible 13 mm 02/18/2024 1.3 - 13 mm Series 3, Image 101 No longer Visible 13 mm 05/05/2024 1.1 - 11 mm Series 3, Image 103 No longer Visible 11 mm 09/15/2024 1.1 - 11 mm Series 3, Image 101 No longer Visible 11 mm NEW LESION: Yes * New Lesion 1 - Lymph node, Lesion, right lower paratracheal/precarinal lymphadenopathy 2.6 cm x 3.0 cm, (Series 3, Image 98), demonstrating increased FDG uptake Please note: Larger 1.1 x 1.5 cm right paratracheal lymph node at the level of the confluence of the brachiocephalic veins (series 3 image 88). Increased FDG uptake noted. List Non-Target Lesion Site: Yes * Lung nodule (<10 mm); 3 mm right upper lobe laterally located nodule, (Series 3, Image 89), stable in size * Lung nodule (<10 mm); approximately 10 x 9 mm right lower lobe nodule, (Series 3, Image 140) * Lymph node (<15 mm short axis); 7mm right prevascular lymph node with FDG uptake, (Series 3, Image 85) * Lymph node (<15 mm short axis); 15 mm subcarinal lymph node with FDG uptake, (Series 3, Image 104) Sum of Lesions: 1.1 cm - 11 mm + new lesion = 4.1 = 41 mm Baseline: 5.2 cm - 52 mm Nacho: 1.1 cm -11 mm Response: Progression Measurements have been reviewed, discussed, and approved by MD Liza Sanchez RN October 17, 2024 Delayed read for RECIST documented in this encounter [facility] 10-16-2024 Telephone encounter Note Scheduled with patient [facility] Work Phone: 10-16-2024 Miscellaneous Notes Scheduled with patient Can we make sure she has a lab appointment with the OV? A clinical trial draw is needed. Thanks! Called patient and left a vm to return our call Dr. Burgess has reviewed patient Guardant lab results and would like to see patient to discuss options. Please call patient and schedule an OV with him this week or next. Oneida Amaro RN documented in this encounter [facility] 10-16-2024 Telephone encounter Note Can we make sure she has a lab appointment with the OV? A clinical trial draw is needed. Thanks! [facility] 10-16-2024 Telephone encounter Note Called patient and left a vm to return our call [facility] 10-16-[address] Burgess has reviewed patient Guardant lab results and would like to see patient to discuss options. Please call patient and schedule an OV with him this week or next. Oneida Amaro RN [facility] Work Phone: 10-05-2024 History of Present illness Narrative This note was created using Local[employer]. Subjective Lata Smith is a 63 year old female. Patient is a 63-year-old female who complains of worsening congestion, sinus pressure, ear pain and cough that she has been experiencing for the past 2 weeks. Patient denies fever, chills or myalgia. Patient does have a history of COPD and does continue to smoke cigarettes. Patient is not on home oxygen. Patient reports that she has a good supply of albuterol inhalers and does not require refill for same. Cough Associated symptoms include ear pain and wheezing. Ear Pain Associated symptoms include congestion and coughing. Review of Systems HENT: Positive for congestion, ear pain and sinus pressure. Respiratory: Positive for cough and wheezing. All other systems reviewed and are negative. Objective BP 101/66 Pulse 78 Temp 36.3 C (97.4 F) Resp 24 Wt 89 kg (196 lb 3.4 oz) LMP 11/04/2012 SpO2 95% BMI 38.32 kg/m Physical Exam Vitals and nursing note reviewed. Constitutional: Appearance: Normal appearance. She is normal weight. HENT: Head: Normocephalic and atraumatic. Right Ear: Tympanic membrane, ear canal and external ear normal. Left Ear: Tympanic membrane, ear canal and external ear normal. Nose: Nose normal. Mouth/Throat: Mouth: Mucous membranes are moist. Pharynx: Oropharynx is clear. Eyes: Extraocular Movements: Extraocular movements intact. Conjunctiva/sclera: Conjunctivae normal. Pupils: Pupils are equal, round, and reactive to light. Cardiovascular: Rate and Rhythm: Normal rate and regular rhythm. Pulses: Normal pulses. Heart sounds: Normal heart sounds. Pulmonary: Effort: Pulmonary effort is normal. Breath sounds: Wheezing present. No rhonchi. Musculoskeletal: Cervical back: Normal range of motion and neck supple. Skin: General: Skin is warm and dry. Capillary Refill: Capillary refill takes less than 2 seconds. Neurological: General: No focal deficit present. Mental Status: She is alert and oriented to person, place, and time. Psychiatric: Mood and Affect: Mood normal. Behavior: Behavior normal. Thought Content: Thought content normal. Judgment: Judgment normal. Assessment and Plan Physical exam findings as noted above. Patient was provided with prescriptions for doxycycline 100 mg and prednisone 20 mg. Patient reports that she does have Tessalon 100 mg at home and does not require a refill for same. Supportive care instructions were discussed and the patient verbalizes good understanding of same. CLINICAL IMPRESSION: Acute Sinusitis; Acute COPD Exacerbation; Tobacco Abuse ASSESSMENT/PLAN: 1. Acute recurrent sinusitis, unspecified location - ICD9: 461.9, ICD10: J01.91 (primary diagnosis) - DOXYCYCLINE HYCLATE 100 MG TABLET 2. COPD with exacerbation (HCC) - ICD9: 491.21, ICD10: J44.1 - DOXYCYCLINE HYCLATE 100 MG TABLET - PREDNISONE 20 MG TABLET [place] Arevalo PA-C documented in this encounter [facility] 10-02-2024 History of Present illness Narrative Summary: Addendum Request for PET CT on 09/15/2024 CLINICAL TRIAL PATIENT- TO BE READ BY [facility] RADIOLOGIST Please see Abstract in EPIC Dated: 06/12/2024 [facility]#: [id number] TUMOR METRICS: RECIST 1.1 Follow-Up Measurement-Same Day Research Contact Information: Liza Canas Date of Baseline Scan: 09/15/2020 Date of Comparison Scan: 05/05/2024 Addendum documented in this encounter [facility] 09-30-2024 Telephone encounter Note Per Dr Burgess, patients potassium is low at 3.0. Per her med list she is not taking her potassium daily and Dr Burgess would like her to take daily for one week, then she can resume taking ever third day. I called pt, no answer, I did leave a detailed VM with these instructions, I will also send a MyChart message. She is coming on for her Guardant testing, I will make sure she received the message then too. Laurie Bazan LPN [facility] 09-30-[address] Burgess, patients potassium is low at 3.0. Per her med list she is not taking her potassium daily and Dr Burgess would like her to take daily for one week, then she can resume taking ever third day. I called pt, no answer, I did leave a detailed VM with these instructions, I will also send a MyChart message. She is coming on for her Guardant testing, I will make sure she received the message then too. Laurie Bazan LPN documented in this encounter [facility] 09-30-2024 Telephone encounter Note Scheduled as directed Maylin Haley [facility] 09-30-2024 Miscellaneous Notes Scheduled as directed Maylin Haley Please schedule lab apt 10/02/24 noon for Guardant testing. Pt aware of date/time. Kit at my desk, will take to lab when she arrives Laurie Bazan LPN documented in this encounter [facility] 09-30-2024 Note Addended by: SANDOVAL KOROMA on: 09/30/2024 11:15 AM Modules accepted: Orders [facility] 09-30-2024 Miscellaneous Notes Addended by: SANDOVAL BURGESS on: 09/30/2024 11:15 AM Modules accepted: Orders documented in this encounter [facility] 09-30-2024 Telephone encounter Note Please schedule lab apt 10/02/24 noon for Guardant testing. Pt aware of date/time. Kit at my desk, will take to lab when she arrives Laurie Bazan LPN [facility] 09-30-2024 Telephone encounter Note Met with patient. Patient was given a folder with [facility] information on carbo/alimta (IV chemo education site), office contact information, and additional chemotherapy resource sheets. No chemo edu scheduled at this time, will wait for guardant test to come back to determine the treatment plan. Mckenzie Jones RN [facility] 09-30-2024 Miscellaneous Notes Met with patient. Patient was given a folder with [facility] information on carbo/alimta (IV chemo education site), office contact information, and additional chemotherapy resource sheets. No chemo edu scheduled at this time, will wait for guardant test to come back to determine the treatment plan. Mckenzie Jones RN documented in this encounter [facility] 09-30-2024 History of Present illness Narrative (Elements copied from my note dated August 19, 2024, have been reviewed and updated where appropriate, and all reflect current assessment and medical decision making from today's encounter, September 30, 2024) HISTORY OF PRESENT ILLNESS: Lata Smith is a 63 year old female who presented with worsening shortness of breath and hemoptysis for several months. Patient was seen in primary care clinic in May was treated with antibiotic without improvement. She was seen by Dr. Castillo and a CT chest revealed a lung mass and mediastinal adenopathy. She had no fever Chills, rigor, pleuritic chest pain, chest trauma. She has stable exertional dyspnea with activities of daily living, and exertional wheezing. She also complained of severe right hip pain along with pressure on her right side of her chest for couple months. Her staging PET scan on 08/03/2020 unfortunately showed metastatic disease. She had bronchoscopy and EBUS biopsy of the mediastinal lymph node on 08/19/2020. Biopsy was consistent with non-small cell, favoring adenocarcinoma the lung. She is here today to discuss treatment option for metastatic lung cancer. Patient is lives with an adult son. She is quit smoking since October after her heart attack. She denied any any weight loss since her heart attack. She has no hoarseness or dysphagia. No headaches or neurological symptoms. She has severe right hip pain secondary to metastatic disease. MRI scan of brain shows no evidence of metastatic disease. She completed palliative radiation therapy to her right hip. Current therapy: 1) Pembrolizumab. 2) Zometa done, completed 3 years in November 2023 I ran her case by med onc and rad onc at [facility], their review suggests stability of disease, they recommend observation, possible SBRT to lung if we see further growth of right lung nodule. 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 Hold pembrolizumab 2. Checking Guardant, see back after that to discuss chemotherapy +/- pembrolizumab, vs any actionable lesion identified on Guardant. Written and verbal health teaching given to patient, patient verbalizes understanding and agrees with treatment plan. 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 Hypertension Irritable bowel syndrome Migraine without aura Obesity, unspecified Other forms of migraine ST elevation myocardial infarction involving right coronary artery (HCC) 06/28/2020 Tobacco use disorder PAST SURGICAL HISTORY Procedure Laterality Date CHOLECYSTECTOMY Cholecystectomy COLONOSCOPY FLX DX W/COLLJ SPEC WHEN PFRMD 11/20/2012 Colonoscopy F TOTAL ABDOMINAL HYSTERECTOMY 05/2013 INCISE FINGER TENDON SHEATH Right 07/21/2021 Right ring trigger finger release INCISE FINGER TENDON SHEATH Left 02/26/2023 Left ring trigger finger release LAPAROSCOPIC APPENDECTOMY 02/17/2015 LIG/TRNSXJ FLP TUBE ABDL/VAG APPR UNI/BI 1982 Tubal ligation NEUROPLASTY &/TRANSPOS MEDIAN NRV CARPAL TUNNE 04/29/2004 Carpal tunnel decomp,left NEUROPLASTY &/TRANSPOS MEDIAN NRV CARPAL TUNNE 05/17/2004 Carpal tunnel decomp, right NOVASURE PAST SURGICAL HISTORY OF cardiac stents FAMILY HISTORY Problem Relation Age of Onset Blood Disease Mother Alzheimer's Disease Father other (lung cancer) Brother 3rd brother, small cell Diabetes Maternal Grandmother Cerebral Embolism Brother oldest brother, aneurysm Cancer Brother 2nd brother, some type of skin cancer Social History Tobacco Use Smoking status: Every Day Current packs/day: 2.00 Average packs/day: 2.0 packs/day for 42.0 years (84.0 ttl pk-yrs) Types: Cigarettes Smokeless tobacco: Never Tobacco comments: Was down to 1PPD then 3cig per week but back to 1PPD Vaping Use Vaping status: Former Substance Use Topics Alcohol use: Yes Comment: Occasional glass of wine. A few per month Drug use: Yes Types: Marijuana Comment: every 2-3 days ALLERGIES: ALLERGIES Allergen Reactions Augmentin [Amoxicil* Diarrhea Tolerates plain penicillins such as amoxicillin Penicillins Hives Also GI upset. CURRENT OUTPATIENT MEDICATIONS: fluticasone-salmeterol (ADVAIR DISKUS) 500-50 mcg/dose dsdv Inhale 1 Puff as instructed two times a day. RINSE AND GARGLE MOUTH WITH WATER AFTER EACH USE. umeclidinium (INCRUSE ELLIPTA) 62.5 mcg/actuation inhaler Inhale 1 Puff as instructed once daily. blood sugar diagnostic (BLOOD GLUCOSE TEST) test strip Test blood sugar(s) 1 times daily. Dx: (R73.9) Hyperglycemia; (R73.03) Prediabetes Insulin: No promethazine (PHENERGAN) 25 mg tablet Take 1 tablet by mouth every 6 hours as needed for nausea/vomiting. benzonatate (TESSALON PERLE) 100 mg capsule Take 2 capsules by mouth three times a day as needed for cough. Take 1-3 capsules by mouth every 6-8 hours as needed. ibuprofen (MOTRIN) 800 mg tablet Take 1 tablet by mouth every 8 hours as needed for pain. multivitamin tablet Take 1 tablet by mouth once daily. furosemide (LASIX) 20 mg tablet Take 1-2 tablets by mouth once daily as needed. losartan (COZAAR) 25 mg tablet Take 1 tablet by mouth once daily. naloxone 4 mg/actuation nasal spray (NARCAN) Use 1 spray in one nostril as needed for overdose. May repeat every 2 to 3 min in alternating nostrils until medical assistance is available albuterol (PROVENTIL) 2.5 mg /3 mL (0.083 %) nebulizer solution Use 3 mL via nebulizer every 6 hours as needed for wheezing/shortness of breath. 1 vial contains 3 ml. albuterol HFA (VENTOLIN HFA) 90 mcg/actuation inhaler Inhale 2 Puffs as instructed every 4 hours as needed for Wheezing/Shortness of Breath. Do not replace with ProAir. aluminum-magnesium hydroxide-simethicone 200-200-20 mg/5 mL suspension Take 15 mL by mouth every 6 hours as needed. diclofenac (VOLTAREN) 1 % topical gel Apply 2 g to affected area four times a day as needed (upper extremity joint(s)). fluticasone (FLONASE) 50 mcg/actuation nasal spray Use 2 Sprays in each nostril once daily. Rinse mouth after use hydroCHLOROthiazide 25 mg tablet Take 1 tablet by mouth once daily. rosuvastatin (CRESTOR) 40 mg tablet Take 1 tablet by mouth once daily. simethicone, chewable (WY-ACID GAS RELIEF,SIMETHICON,) 80 mg chewable tablet Take 1 tablet by mouth every 6 hours as needed. traZODone (DESYREL) 50 mg tablet Take 1 tablet by mouth at bedtime as needed. verapamil ER (VERELAN) 120 mg 24 hr capsule Take 1 capsule by mouth once daily. esomeprazole (NEXIUM) 20 mg capsule Take 1 capsule by mouth daily before breakfast. 1/2 hr before meal. aspirin, enteric coated (ASPIRIN, ENTERIC COATED) 81 mg EC tablet Take 1 tablet by mouth once daily. nystatin (MYCOSTATIN) 100,000 unit/mL suspension Take 5 mL by mouth four times daily. 1tsp swish in mouth for several minutes, then swallow (or expectorate) 4 times daily until gone. potassium chloride (KLOR-CON) 20 mEq packet Take 20 mEq by mouth twice daily. (Patient taking differently: Take 20 mEq by mouth two times a day. Taking 3 times per week.) senna (SENOKOT) 8.6 mg tab Take 2 tablets by mouth twice daily. (Patient taking differently: Take 2 tablets by mouth two times a day as needed.) oxyCODONE-acetaminophen (PERCOCET) 7.5-325 mg tablet Take 1 tablet by mouth every 8 hours as needed for pain. rizatriptan (MAXALT) 10 mg tablet Take 10 mg by mouth as needed. May repeat in 2 hours if needed cyclobenzaprine (FLEXERIL) 10 mg tablet Take 10 mg by mouth twice daily as needed for Muscle Spasm. polyethylene glycol 3350 (MIRALAX) 17 gram/dose powder Take 17 g by mouth once daily. NOT NEEDING NOW Nebulizer NEBULIZER FOR HOME USE with supplies. DX: (J45.40) Moderate persistent asthma without complication (primary encounter diagnosis) varenicline (CHANTIX CONTINUING MONTH BOX) 1 mg tablet Take 1 tablet by mouth two times a day. predniSONE (DELTASONE) 10 mg tablet Take 4 daily for three days, then 3 daily for three days, then 2 daily for three days, then one daily for three days. REVIEW OF SYSTEMS: GENERAL: No fever, night sweats, weight loss or malaise. All other reviewed and negative other than HPI. PHYSICAL EXAMINATION: VITAL SIGNS: BP 101/52 Pulse 80 Temp (Src) 97.5 (Temporal) Wt 199 lb (90.3kg) SpO2 93% LMP 11/04/2012 GENERAL APPEARANCE: Well appearing, in no acute distress, alert and oriented x3, well-hydrated, well nourished. LUNGS: CTA HEART: Reg I spent a total of 45 minutes on the date of the service which included preparing to see the patient, [id number] patient care, completing clinical documentation, obtaining and/or reviewing separately obtained history, performing a medically appropriate examination, counseling and educating the patient/family/caregiver, independently interpreting results (not separately reported), and communicating results to the patient/family/caregiver. Also review of images, plan discussed with animal care assistant, nursing. Electronically Signed: Sandoval Burgess MD September 30, 2024 documented in this encounter [facility] 09-15-2024 History of Present illness Narrative RADIOLOGY SERVICE PROGRESS NOTE SERVICE DATE: 09/15/2024 SERVICE TIME: 11:37 AM PATIENT IDENTITY VERIFICATION COMPLETED USING TWO (2) STANDARD IDENTIFIERS: Name and Date of confirmed by patient verbally FALL SCREENING: Has the patient had 2 falls in the last year or 1 fall with injury or currently using an Ambulatory Assistive Device (Walker, Cane, Wheelchair, Crutches, etc.)? Yes, Patient High Risk for Falls What interventions were put in place to prevent falls during this visit? Increased Observations by Caregivers PATIENT GENDER DATA: .female ALLERGIES: NA MEDICATIONS REVIEWED: Not applicable PATIENT RELEVANT IMPLANT DATA REVIEWED: Not Applicable PATIENT PRESENTS WITH AN IMPLANTABLE OR ATTACHED SPAR FINISHER: No CREATININE: Creatinine Date Value Ref Range Status 08/19/2024 0.76 0.58 - 0.96 mg/dL Final 07/08/2024 0.72 0.58 - 0.96 mg/dL Final 05/29/2024 0.72 0.58 - 0.96 mg/dL Final Estimated Glomerular Filtration Rate Date Value Ref Range Status 08/19/2024 89 >=60 mL/min/1.73m Final Comment: Estimated Glomerular Filtration Rate (eGFR) is calculated using the 2020 CKD-EPI creatinine equation. This equation utilizes serum creatinine, sex, and age as parameters. The creatinine assay has traceable calibration to isotope dilution-mass spectrometry. Refer to KDIGO guidelines for clinical interpretation. In patients with unstable renal function, e.g. those with acute kidney injury, the eGFR may not accurately reflect actual GFR. eGFR- Date Value Ref Range Status 11/22/2021 >60 Final P.O.C.T. RESULTS: N/A September 15, [address] PERFORMED: No IV SITE: Ambulatory: NM only - direct IV injection in the Right antecubital site POST EXAM PIV STATUS: Discontinued PROCEDURE TYPE: NM INJECT: PET/CT BODY SCAN. 14.2 mCi F18 FDG. No other medications given.. ADMINISTRATION TIME: 1130 PATIENT DISCHARGED TO: Ambulatory patient, left ID department area. Is this a therapy: No A Diagnostic radioactive procedure has taken place, with no further precautions necessary other than routine body substance precautions. More information regarding radiation safety can be found using this link: [email or web address] uclear%[email or web address] df SIGNATURE: FLIP Limon) PATIENT NAME: Lata Smith DATE: September 15, 2024 TIME: 11:37 AM PAGER/CONTACT #: documented in this encounter [facility] 09-15-2024 Note HNO ID: [id number] Author: GERONIMO BEARD RT (R) Service: Nuclear Medicine Author Type: Technologist Type: Progress Notes Filed: 09/15/2024 11:37 Note Text: RADIOLOGY SERVICE PROGRESS NOTE SERVICE DATE: 09/15/2024 SERVICE TIME: 11:37 AM PATIENT IDENTITY VERIFICATION COMPLETED USING TWO (2) STANDARD IDENTIFIERS: Name and Date of confirmed by patient verbally FALL SCREENING: Has the patient had 2 falls in the last year or 1 fall with injury or currently using an Ambulatory Assistive Device (Walker, Cane, Wheelchair, Crutches, etc.)? Yes, Patient High Risk for Falls What interventions were put in place to prevent falls during this visit? Increased Observations by Caregivers PATIENT GENDER DATA: .female ALLERGIES: NA MEDICATIONS REVIEWED: Not applicable PATIENT RELEVANT IMPLANT DATA REVIEWED: Not Applicable PATIENT PRESENTS WITH AN IMPLANTABLE OR ATTACHED SPAR FINISHER: No CREATININE: Creatinine Date Value Ref Range Status 08/19/2024 0.76 0.58 - 0.96 mg/dL Final 07/08/2024 0.72 0.58 - 0.96 mg/dL Final 05/29/2024 0.72 0.58 - 0.96 mg/dL Final Estimated Glomerular Filtration Rate Date Value Ref Range Status 08/19/2024 89 >=60 mL/min/1.73m? Final Comment: Estimated Glomerular Filtration Rate (eGFR) is calculated using the 2020 CKD-EPI creatinine equation. This equation utilizes serum creatinine, sex, and age as parameters. The creatinine assay has traceable calibration to isotope dilution-mass spectrometry. Refer to KDIGO guidelines for clinical interpretation. In patients with unstable renal function, e.g. those with acute kidney injury, the eGFR may not accurately reflect actual GFR. eGFR- Date Value Ref Range Status 11/22/2021 >60 Final P.O.C.T. RESULTS: N/A September 15, [address] PERFORMED: No IV SITE: Ambulatory: NM only - direct IV injection in the Right antecubital site POST EXAM PIV STATUS: Discontinued PROCEDURE TYPE: NM INJECT: PET/CT BODY SCAN. 14.2 mCi F18 FDG. No other medications given.. ADMINISTRATION TIME: 1130 PATIENT DISCHARGED TO: Ambulatory patient, left ID department area. Is this a therapy: No A Diagnostic radioactive procedure has taken place, with no further precautions necessary other than routine body substance precautions. More information regarding radiation safety can be found using this link: [email or web address] 20Diagnostic%20Nuclear%20Medicin [email or web address].pdf SIGNATURE: RT Ashly(R) PATIENT NAME: Lata Smith DATE: September 15, 2024 TIME: 11:37 AM PAGER/CONTACT #: [facility] 09-11-2024 History of Present illness Narrative Images from the original note were not included. . [facility] Note Patient name: Lata Smith PCP: Fiona Durant MD CC: Follow-up obstructive lung disease HPI: Lata Smith 63 year old female current 40 pack year smoker with PMH significant for obesity, asthma COPD overlap, depression, GERD, HTN, CAD s/p stents, hepatitis B, and lung cancer. Stage IV non-small cell cancer diagnosed in 08/2020, mets to bones, treatment with radiation, pembrolizumab, Zometa. At [facility] over a year ago, she had an enlarging right upper lobe nodule, plans for continued surveillance and possible SBRT. Current inhaled therapy with Advair and Incruse and as needed albuterol. Her most recent PET scan shows stability of her right upper lobe nodule although it is highly suspicious for adenocarcinoma. PET scan without activity in this area but nodule too small. She is scheduled for another PET scan next week. From a respiratory standpoint she has persistent cough with occasional green mucus production, dyspnea with exertion. No audible wheezing. She has been using her Advair 2 puffs in the morning rather than as prescribed. She does not feel that it is as effective as it has been past. She had recent upper respiratory infection treated with antibiotics and steroids. Despite her persistent respiratory symptoms and lung cancer, she continues to smoke and has no true desire to quit. DATA: Imaging / Diagnostic Studies: DATE OF EXAM: May 05 2024 1:01PM MDP 0063 - NM PET/CT SKULL-THIGH SUBQ / PROCEDURE REASON: multiple diagnoses IMPRESSION: Primary disease: No metabolically active lung nodule. Paul disease: Mediastinal and right hilar metastatic metabolically active lymphadenopathy is stable since 02/18/2024 5 from mild interval increased metabolic uptake which can be seen in the setting of immune check point inhibitor treatment (a.k.a immune mediated treatment response). No new metastatic lymphadenopathy. Metastatic disease: Metastatic bone disease with expansile mildly metabolically active lesions has been stable since 02/18/2024. No new bone lesion. No metabolically active liver or solid organ metastasis * * * * * * * * ADDENDUM #1 * * * * * * * * Per clinical service request, RECIST addendum is made. Initial report was dictated by Dr. Ruddy Tolentino Baseline study 09/16/2020: Comparison CT 02/18/2024; abstract date 03/06/2024 I personally reviewed the images and agree with the assessment. 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 fluticasone-salmeterol (ADVAIR DISKUS) 500-50 mcg/dose dsdv Inhale 1 Puff as instructed two times a day. RINSE AND GARGLE MOUTH WITH WATER AFTER EACH USE. umeclidinium (INCRUSE ELLIPTA) 62.5 mcg/actuation inhaler Inhale 1 Puff as instructed once daily. blood sugar diagnostic (BLOOD GLUCOSE TEST) test strip Test blood sugar(s) 1 times daily. Dx: (R73.9) Hyperglycemia; (R73.03) Prediabetes Insulin: No promethazine (PHENERGAN) 25 mg tablet Take 1 tablet by mouth every 6 hours as needed for nausea/vomiting. benzonatate (TESSALON PERLE) 100 mg capsule Take 2 capsules by mouth three times a day as needed for cough. Take 1-3 capsules by mouth every 6-8 hours as needed. ibuprofen (MOTRIN) 800 mg tablet Take 1 tablet by mouth every 8 hours as needed for pain. varenicline (CHANTIX CONTINUING MONTH BOX) 1 mg tablet Take 1 tablet by mouth two times a day. multivitamin tablet Take 1 tablet by mouth once daily. predniSONE (DELTASONE) 10 mg tablet Take 4 daily for three days, then 3 daily for three days, then 2 daily for three days, then one daily for three days. furosemide (LASIX) 20 mg tablet Take 1-2 tablets by mouth once daily as needed. losartan (COZAAR) 25 mg tablet Take 1 tablet by mouth once daily. naloxone 4 mg/actuation nasal spray (NARCAN) Use 1 spray in one nostril as needed for overdose. May repeat every 2 to 3 min in alternating nostrils until medical assistance is available albuterol (PROVENTIL) 2.5 mg /3 mL (0.083 %) nebulizer solution Use 3 mL via nebulizer every 6 hours as needed for wheezing/shortness of breath. 1 vial contains 3 ml. albuterol HFA (VENTOLIN HFA) 90 mcg/actuation inhaler Inhale 2 Puffs as instructed every 4 hours as needed for Wheezing/Shortness of Breath. Do not replace with ProAir. aluminum-magnesium hydroxide-simethicone 200-200-20 mg/5 mL suspension Take 15 mL by mouth every 6 hours as needed. diclofenac (VOLTAREN) 1 % topical gel Apply 2 g to affected area four times a day as needed (upper extremity joint(s)). fluticasone (FLONASE) 50 mcg/actuation nasal spray Use 2 Sprays in each nostril once daily. Rinse mouth after use hydroCHLOROthiazide 25 mg tablet Take 1 tablet by mouth once daily. rosuvastatin (CRESTOR) 40 mg tablet Take 1 tablet by mouth once daily. simethicone, chewable (WY-ACID GAS RELIEF,SIMETHICON,) 80 mg chewable tablet Take 1 tablet by mouth every 6 hours as needed. traZODone (DESYREL) 50 mg tablet Take 1 tablet by mouth at bedtime as needed. verapamil ER (VERELAN) 120 mg 24 hr capsule Take 1 capsule by mouth once daily. esomeprazole (NEXIUM) 20 mg capsule Take 1 capsule by mouth daily before breakfast. 1/2 hr before meal. aspirin, enteric coated (ASPIRIN, ENTERIC COATED) 81 mg EC tablet Take 1 tablet by mouth once daily. nystatin (MYCOSTATIN) 100,000 unit/mL suspension Take 5 mL by mouth four times daily. 1tsp swish in mouth for several minutes, then swallow (or expectorate) 4 times daily until gone. potassium chloride (KLOR-CON) 20 mEq packet Take 20 mEq by mouth twice daily. (Patient taking differently: Take 20 mEq by mouth two times a day. Taking 3 times per week.) senna (SENOKOT) 8.6 mg tab Take 2 tablets by mouth twice daily. (Patient taking differently: Take 2 tablets by mouth two times a day as needed.) oxyCODONE-acetaminophen (PERCOCET) 7.5-325 mg tablet Take 1 tablet by mouth every 8 hours as needed for pain. rizatriptan (MAXALT) 10 mg tablet Take 10 mg by mouth as needed. May repeat in 2 hours if needed cyclobenzaprine (FLEXERIL) 10 mg tablet Take 10 mg by mouth twice daily as needed for Muscle Spasm. polyethylene glycol 3350 (MIRALAX) 17 gram/dose powder Take 17 g by mouth once daily. NOT NEEDING NOW Nebulizer NEBULIZER FOR HOME USE with supplies. DX: (J45.40) Moderate persistent asthma without complication (primary encounter diagnosis) Social History Tobacco Use Smoking status: Every Day Current packs/day: 2.00 Average packs/day: 2.0 packs/day for 42.0 years (84.0 ttl pk-yrs) Types: Cigarettes Smokeless tobacco: Never Tobacco comments: Was down to 1PPD then 3cig per week but back to 1PPD since not able to get Chantix covered. Vaping Use Vaping status: Former Substance Use Topics Alcohol use: Yes Comment: Occasional glass of wine. A few per month Drug use: Yes Types: Marijuana Comment: every 2-3 days PMH, Social history, family history and surgical history reviewed and updated in EMR REVIEW OF SYSTEMS: CONSTITUTIONAL: No fevers, chills, nightsweats, unintended weight loss HEENT: Denies nasal congestion/sinus symptoms, problematic allergy problems. EYES: No visual changes. CARDIOVASCULAR: No chest pain, palpitations, orthopnea, edema. PULM: See HPI GI: No dysphagia/odynophagia, problematic reflux. NEURO: No new balance problems, peripheral weakness/paresthesias or numbness of concern. MUSC-SKEL: No new joint pain, swelling, or erythema. PSY: No concerns regarding depression, anxiety INTEGUMENTARY: No new skin changes PHYSICAL EXAMINATION: Pulse 88 SpO2 92% LMP 11/04/2012 BP 108/60, RR 16 General Appearance: Obese female, NAD. Skin: Skin color, texture, turgor normal, no suspicious rashes or lesions. Head: Normocephalic, no masses, lesions, tenderness or abnormalities. Eyes: Sclera, conjunctiva normal. Oropharynx: Poor dentition, no oral lesions. Neck: No JVD, no masses, no adenopathy. Lungs: Not labored, normal to percussion, upper airway rhonchi. Heart: Regular rate and rhythm, no murmurs or gallops. Extremities: No edema or clubbing. Assessment/Plan: 1. Asthma COPD overlap syndrome -Symptoms will improve if she is able to quit smoking -Increased Advair to 500/50 with continued use of Incruse. Instructed patient on proper dosing 2. Cigarette smoker -Current smoker with sequelae of COPD and lung cancer -Smoking cessation is paramount 3. Metastatic lung cancer to bones -Lung nodule suspicious for adenocarcinoma. Active treatment plan per oncology. On Keytruda Georgina Morgan MD [facility] documented in this encounter [facility] 09-08-2024 Instructions Fiona Durant MD - 09/08/2024 3:46 PM EST - Continue taking your current medications as prescribed. - Refill your test strips at [facility]. - Monitor your temperature regularly and report any fevers to Dr. Burgess. - Attend your PET scan on the ; remember to fast from midnight before the scan. - Complete your scheduled labs on September 30; an A1c test will be added to these labs. - Follow up with Dr. Burgess and Dr. Morgan to discuss any persistent symptoms, including coughing and fevers. - Consider discussing smoking cessation options with your healthcare provider. - Monitor the oral polyp and consult with your dentist or an oral surgeon if it continues to cause discomfort. documented in this encounter [facility] 09-08-2024 History of Present illness Narrative Images from the original note were not included. This note was created using [employer]. Subjective Lata Smith is a 63 year old female. Patient presents with: F/U 3 months F/U 3 Month SUBJECTIVE: Lata Smith is a 63 year old year old lady here today for 3 month follow up appointment for review of medical conditions. Lata Smith is a 63-year-old female with a history of cancer, presenting for a 3-month follow-up visit. Lata reports same old, same old symptoms and is currently under the care of Dr. Burgess, with stable management of her condition. She has a PET scan scheduled for the and has been instructed to fast from midnight before the scan, allowing only water. Recent lab results show a blood glucose level of 156 mg/dL, which was not fasting. Her last HbA1c in July was 6.1%. Other lab results, including thyroid function, kidney function, electrolytes, and liver tests, were within normal limits, except for a mildly elevated alkaline phosphatase level. Lata is due for her next set of labs on September 30, with a follow-up treatment on October 02. She is also scheduled for appointments in November and March. She is currently taking multiple medications, including Advair, potassium powder packets (3 times a week), Phenergan, Tessalon Perles, and ibuprofen. She reports taking ibuprofen almost daily due to recurrent fevers, which she has discussed with Dr. Burgess. She takes 2 ibuprofen tablets at a time to manage the fevers, which she notes occur when she feels extremely cold and starts shivering, particularly when lying down. She does not have a thermometer to measure her temperature. Lata also reports a persistent cough, particularly when lying down, and occasional expectoration of light green sputum. She has an upcoming appointment with her imaging administrator on the and plans to discuss increasing her Advair dosage. She mentions a polyp in her mouth, which she describes as extra skin that swells and causes discomfort. She has been managing it by applying pressure with her teeth. The polyp has been present for about a year and fluctuates in size. She has not tried salt water gargles or coconut oil pulling. Lata is a current smoker, consuming approximately 1 pack of cigarettes per day. She was previously able to reduce her smoking to 3 cigarettes per week with the help of Chantix, but has not been able to resume Chantix. She also reports occasional use of marijuana and wine. She expresses stress related to her daughter's health issues, including frequent falls, hemoptysis, epistaxis, and migraines. She is concerned that her daughter is not seeking medical attention for these issues. 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 multivitamin tablet Take 1 tablet by mouth once daily. ibuprofen (MOTRIN) 800 mg tablet Take 1 tablet by mouth every 8 hours as needed for pain. predniSONE (DELTASONE) 10 mg tablet Take 4 daily for three days, then 3 daily for three days, then 2 daily for three days, then one daily for three days. benzonatate (TESSALON PERLE) 100 mg capsule Take 2 capsules by mouth three times a day as needed for cough. Take 1-3 capsules by mouth every 6-8 hours as needed. furosemide (LASIX) 20 mg tablet Take 1-2 tablets by mouth once daily as needed. umeclidinium (INCRUSE ELLIPTA) 62.5 mcg/actuation inhaler Inhale 1 Puff as instructed once daily. losartan (COZAAR) 25 mg tablet Take 1 tablet by mouth once daily. naloxone 4 mg/actuation nasal spray (NARCAN) Use 1 spray in one nostril as needed for overdose. May repeat every 2 to 3 min in alternating nostrils until medical assistance is available albuterol (PROVENTIL) 2.5 mg /3 mL (0.083 %) nebulizer solution Use 3 mL via nebulizer every 6 hours as needed for wheezing/shortness of breath. 1 vial contains 3 ml. albuterol HFA (VENTOLIN HFA) 90 mcg/actuation inhaler Inhale 2 Puffs as instructed every 4 hours as needed for Wheezing/Shortness of Breath. Do not replace with ProAir. aluminum-magnesium hydroxide-simethicone 200-200-20 mg/5 mL suspension Take 15 mL by mouth every 6 hours as needed. diclofenac (VOLTAREN) 1 % topical gel Apply 2 g to affected area four times a day as needed (upper extremity joint(s)). fluticasone (FLONASE) 50 mcg/actuation nasal spray Use 2 Sprays in each nostril once daily. Rinse mouth after use fluticasone-salmeterol (ADVAIR DISKUS) 250-50 mcg/dose inhaler Inhale 1 Puff as instructed two times a day. RINSE AND GARGLE MOUTH WITH WATER AFTER EACH USE. hydroCHLOROthiazide 25 mg tablet Take 1 tablet by mouth once daily. rosuvastatin (CRESTOR) 40 mg tablet Take 1 tablet by mouth once daily. simethicone, chewable (WY-ACID GAS RELIEF,SIMETHICON,) 80 mg chewable tablet Take 1 tablet by mouth every 6 hours as needed. traZODone (DESYREL) 50 mg tablet Take 1 tablet by mouth at bedtime as needed. verapamil ER (VERELAN) 120 mg 24 hr capsule Take 1 capsule by mouth once daily. esomeprazole (NEXIUM) 20 mg capsule Take 1 capsule by mouth daily before breakfast. 1/2 hr before meal. aspirin, enteric coated (ASPIRIN, ENTERIC COATED) 81 mg EC tablet Take 1 tablet by mouth once daily. nystatin (MYCOSTATIN) 100,000 unit/mL suspension Take 5 mL by mouth four times daily. 1tsp swish in mouth for several minutes, then swallow (or expectorate) 4 times daily until gone. promethazine (PHENERGAN) 25 mg tablet Take 1 tablet by mouth every 6 hours as needed for nausea/vomiting. blood sugar diagnostic (BLOOD GLUCOSE TEST) test strip Test blood sugar(s) 1 times daily. Dx: (R73.9) Hyperglycemia; (R73.03) Prediabetes Insulin: No potassium chloride (KLOR-CON) 20 mEq packet Take 20 mEq by mouth twice daily. (Patient taking differently: Take 20 mEq by mouth two times a day. Taking 3 times per week.) senna (SENOKOT) 8.6 mg tab Take 2 tablets by mouth twice daily. (Patient taking differently: Take 2 tablets by mouth two times a day as needed.) oxyCODONE-acetaminophen (PERCOCET) 7.5-325 mg tablet Take 1 tablet by mouth every 8 hours as needed for pain. rizatriptan (MAXALT) 10 mg tablet Take 10 mg by mouth as needed. May repeat in 2 hours if needed cyclobenzaprine (FLEXERIL) 10 mg tablet Take 10 mg by mouth twice daily as needed for Muscle Spasm. polyethylene glycol 3350 (MIRALAX) 17 gram/dose powder Take 17 g by mouth once daily. NOT NEEDING NOW Nebulizer NEBULIZER FOR HOME USE with supplies. DX: (J45.40) Moderate persistent asthma without complication (primary encounter diagnosis) No current facility-administered medications for this visit. Review of Systems Objective BP 112/62 Pulse 75 Temp 36.4 C (97.6 F) Resp 18 Wt 90.7 kg (199 lb 15.3 oz) LMP 11/04/2012 SpO2 94% BMI 39.05 kg/m Last 5 Encounter Wt Readings: Date: Wt: 09/08/2024 90.7 kg (199 lb 15.3 oz) 08/19/2024 91.2 kg (201 lb) 07/08/2024 90.5 kg (199 lb 8.3 oz) 06/06/2024 88.6 kg (195 lb 5.2 oz) 05/27/2024 88.9 kg (196 lb) No waist measurement recorded Estimated body mass index is 39.05 kg/m as calculated from the following: Height as of 05/22/23: 152.4 cm (5'). Weight as of this encounter: 90.7 kg (199 lb 15.3 oz). Last 5 Encounter BP Readings: Date: BP: 09/08/2024 112/62 08/21/2024 115/72 08/19/2024 107/52 07/10/2024 128/73 07/08/2024 113/70 Physical Exam Constitutional: Appearance: Normal appearance. HENT: Head: Normocephalic. Mouth/Throat: Eyes: Conjunctiva/sclera: Conjunctivae normal. Cardiovascular: Rate and Rhythm: Normal rate and regular rhythm. Heart sounds: Normal heart sounds. Pulmonary: Effort: Pulmonary effort is normal. Breath sounds: Normal breath sounds. Musculoskeletal: Right lower leg: No edema. Left lower leg: No edema. Skin: General: Skin is warm and dry. Comments: skin lesions with fine white scale on arms; well demarcated from normal skin. Under 8mm diameter Neurological: General: No focal deficit present. Mental Status: She is alert and oriented to person, place, and time. Psychiatric: Mood and Affect: Mood normal. Behavior: Behavior normal. Thought Content: Thought content normal. Judgment: Judgment normal. Latest Ref Rng 07/08/2024 08/19/2024 WBC 3.70 - 11.00 k/uL 8.19 7.28 RBC 3.90 - 5.20 m/uL 4.78 5.01 Hemoglobin 11.5 - 15.5 g/dL 13.8 14.3 Hematocrit 36.0 - 46.0 % 41.3 43.1 MCV 80.0 - 100.0 fL 86.4 86.0 MCH 26.0 - 34.0 pg 28.9 28.5 MCHC 30.5 - 36.0 g/dL 33.4 33.2 RDW-CV 11.5 - 15.0 % 15.6 (H) 15.0 Platelet Count 150 - 400 k/uL 179 192 MPV 9.0 - 12.7 fL 9.9 10.5 Neut% % 75.0 74.0 Abs Neut (ANC) 1.45 - 7.50 k/uL 6.14 5.39 Lymph% % 14.8 15.7 Abs Lymph 1.00 - 4.00 k/uL 1.21 1.14 [place]% % 5.7 5.4 Abs [place] <0.87 k/uL 0.47 0.39 Eosin% % 3.2 3.6 Abs Eosin <0.46 k/uL 0.26 0.26 Baso% % 0.7 0.8 Abs Baso <0.11 k/uL 0.06 0.06 Immature Gran % % 0.6 0.5 IMMATURE GRANS (ABS) <0.10 k/uL 0.05 0.04 NRBC /100 WBC 0.0 0.0 Absolute nRBC <0.01 k/uL <0.01 <0.01 DTYPE Auto Auto Protein, Total 6.3 - 8.0 g/dL 7.1 7.3 Albumin 3.9 - 4.9 g/dL 4.0 4.0 Calcium 8.5 - 10.2 mg/dL 9.1 9.9 Bilirubin, Total 0.2 - 1.3 mg/dL 0.4 0.2 Alkaline Phosphatase 34 - 123 U/L 113 143 (H) AST 13 - 35 U/L 13 14 ALT 7 - 38 U/L 23 18 Glucose 74 - 99 mg/dL 114 (H) 156 (H) BUN 7 - 21 mg/dL 13 10 Creatinine 0.58 - 0.96 mg/dL 0.72 0.76 Sodium 136 - 144 mmol/L 139 138 Potassium 3.7 - 5.1 mmol/L 3.8 4.0 Chloride 98 - 107 mmol/L 103 104 CO2 22 - 30 mmol/L 24 23 Anion Gap 8 - 15 mmol/L 12 11 eGFR >=60 mL/min/1.73m 95 89 Hemoglobin A1C 4.3 - 5.6 % 6.1 (H) Estimated Average Glucose mg/dL 128 TSH 0.270 - 4.200 mIU/L 1.840 1.330 Free T4 0.9 - 1.7 ng/dL 1.1 1.1 Cortisol 4.8 - 19.5 ug/dL 13.5 6.0 Legend: (H) High Assessment and Plan # Elevated glucose (R73.09) - Recent blood glucose level was 156 mg/dL, which was non-fasting. - Previous HbA1c in July was 6.1%, indicating pre-diabetes. - Ordered HbA1c to be added to Dr. Burgess's labs on September 30. # Smoker (F17.200) # Cigarette smoker (F17.210) - Currently smoking approximately one pack per day. - Previously reduced to three cigarettes per week with Chantix, but unable to resume Chantix. - Discussed the importance of smoking cessation and potential benefits. 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 - Discussed PET scan preparation, including fasting from midnight. - Recent labs reviewed; alkaline phosphatase slightly elevated, but other liver function tests normal. - Follow-up with oncologist Dr. Burgess in September. # COPD with exacerbation (HCC) (J44.1) - Increased cough and sputum production, but no wheezing or crackles on auscultation. - Follow-up with imaging administrator Dr. Morgan on the . - Discussed potential adjustment of Advair dosage with imaging administrator. - Refilled Tessalon Perles for cough management. # Polyp of mouth (K13.79) - Noted small polyp on the lower jaw near the front teeth. - Advised to follow up with a dentist or oral surgeon for further evaluation. - Recommended salt water gargles to reduce inflammation. # Screening for depression (Z13.31) - Discussed normal fluctuations in mood and the importance of addressing significant symptoms. - No current need for medication or counseling. # Encounter for immunization (Z23) - Administered flu vaccine. # Encounter for screening examination for other mental health and behavioral disorders (Z13.39) - Discussed anxiety management; no current need for medication or counseling. # Examination of participant in clinical trial (Z00.6) - No specific details discussed. Fiona Durant MD documented in this encounter [facility] 08-19-2024 Telephone encounter Note Spoke with patient and scheduled. Mahi Chaidez [facility] 08-19-2024 Miscellaneous Notes Spoke with patient and scheduled. Mahi Chaidez PET scan when feasible See me after PET Continue keytruda every 6 weeks documented in this encounter [facility] 08-19-2024 Telephone encounter Note PET scan when feasible See me after PET Continue keytruda every 6 weeks [facility] Work Phone: 08-19-2024 History of Present illness Narrative (Elements copied from my note dated April 15, 2024, have been reviewed and updated where appropriate, and all reflect current assessment and medical decision making from today's encounter, August 19, 2024) HISTORY OF PRESENT ILLNESS: Lata Smith is a 63 year old female who presented with worsening shortness of breath and hemoptysis for several months. Patient was seen in primary care clinic in May was treated with antibiotic without improvement. She was seen by Dr. Castillo and a CT chest revealed a lung mass and mediastinal adenopathy. She had no fever Chills, rigor, pleuritic chest pain, chest trauma. She has stable exertional dyspnea with activities of daily living, and exertional wheezing. She also complained of severe right hip pain along with pressure on her right side of her chest for couple months. Her staging PET scan on 08/03/2020 unfortunately showed metastatic disease. She had bronchoscopy and EBUS biopsy of the mediastinal lymph node on 08/19/2020. Biopsy was consistent with non-small cell, favoring adenocarcinoma the lung. She is here today to discuss treatment option for metastatic lung cancer. Patient is lives with an adult son. She is quit smoking since October after her heart attack. She denied any any weight loss since her heart attack. She has no hoarseness or dysphagia. No headaches or neurological symptoms. She has severe right hip pain secondary to metastatic disease. MRI scan of brain shows no evidence of metastatic disease. She completed palliative radiation therapy to her right hip. Current therapy: 1) Pembrolizumab. 2) Zometa done, completed 3 years in November 2023 I ran her case by med onc and rad onc at [facility], their review suggests stability of disease, they recommend observation, possible SBRT to lung if we see further growth of right lung nodule. Here for follow up, reviewed PET scan from 02-18-24, compared to November, looked overall improvement, new thoracic LN bears observation. 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 Pembrolizumab as planned 2. Repeat PET scan in August 2024, will se back after PET to review results, images. Written and verbal health teaching given to patient, patient verbalizes understanding and agrees with treatment plan. 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 Hypertension Irritable bowel syndrome Migraine without aura Obesity, unspecified Other forms of migraine ST elevation myocardial infarction involving right coronary artery (HCC) 06/28/2020 Tobacco use disorder PAST SURGICAL HISTORY Procedure Laterality Date CHOLECYSTECTOMY Cholecystectomy COLONOSCOPY FLX DX W/COLLJ SPEC WHEN PFRMD 11/20/2012 Colonoscopy F TOTAL ABDOMINAL HYSTERECTOMY 05/2013 INCISE FINGER TENDON SHEATH Right 07/21/2021 Right ring trigger finger release INCISE FINGER TENDON SHEATH Left 02/26/2023 Left ring trigger finger release LAPAROSCOPIC APPENDECTOMY 02/17/2015 LIG/TRNSXJ FLP TUBE ABDL/VAG APPR UNI/BI 1982 Tubal ligation NEUROPLASTY &/TRANSPOS MEDIAN NRV CARPAL TUNNE 04/29/2004 Carpal tunnel decomp,left NEUROPLASTY &/TRANSPOS MEDIAN NRV CARPAL TUNNE 05/17/2004 Carpal tunnel decomp, right NOVASURE PAST SURGICAL HISTORY OF cardiac stents FAMILY HISTORY Problem Relation Age of Onset Blood Disease Mother Alzheimer's Disease Father other (lung cancer) Brother 3rd brother, small cell Diabetes Maternal Grandmother Cerebral Embolism Brother oldest brother, aneurysm Cancer Brother 2nd brother, some type of skin cancer Social History Tobacco Use Smoking status: Every Day Current packs/day: 2.00 Average packs/day: 2.0 packs/day for 42.0 years (84.0 ttl pk-yrs) Types: Cigarettes Smokeless tobacco: Never Tobacco comments: Down to 1PPD Vaping Use Vaping status: Former Substance Use Topics Alcohol use: Yes Comment: Occasional glass of wine. A few per month Drug use: Yes Types: Marijuana Comment: every 2-3 days ALLERGIES: ALLERGIES Allergen Reactions Augmentin [Amoxicil* Diarrhea Tolerates plain penicillins such as amoxicillin Penicillins Hives Also GI upset. CURRENT OUTPATIENT MEDICATIONS: varenicline (CHANTIX CONTINUING MONTH BOX) 1 mg tablet Take 1 tablet by mouth two times a day. multivitamin tablet Take 1 tablet by mouth once daily. ibuprofen (MOTRIN) 800 mg tablet Take 1 tablet by mouth every 8 hours as needed for pain. benzonatate (TESSALON PERLE) 100 mg capsule Take 2 capsules by mouth three times a day as needed for cough. Take 1-3 capsules by mouth every 6-8 hours as needed. furosemide (LASIX) 20 mg tablet Take 1-2 tablets by mouth once daily as needed. umeclidinium (INCRUSE ELLIPTA) 62.5 mcg/actuation inhaler Inhale 1 Puff as instructed once daily. losartan (COZAAR) 25 mg tablet Take 1 tablet by mouth once daily. naloxone 4 mg/actuation nasal spray (NARCAN) Use 1 spray in one nostril as needed for overdose. May repeat every 2 to 3 min in alternating nostrils until medical assistance is available albuterol (PROVENTIL) 2.5 mg /3 mL (0.083 %) nebulizer solution Use 3 mL via nebulizer every 6 hours as needed for wheezing/shortness of breath. 1 vial contains 3 ml. albuterol HFA (VENTOLIN HFA) 90 mcg/actuation inhaler Inhale 2 Puffs as instructed every 4 hours as needed for Wheezing/Shortness of Breath. Do not replace with ProAir. aluminum-magnesium hydroxide-simethicone 200-200-20 mg/5 mL suspension Take 15 mL by mouth every 6 hours as needed. diclofenac (VOLTAREN) 1 % topical gel Apply 2 g to affected area four times a day as needed (upper extremity joint(s)). fluticasone (FLONASE) 50 mcg/actuation nasal spray Use 2 Sprays in each nostril once daily. Rinse mouth after use fluticasone-salmeterol (ADVAIR DISKUS) 250-50 mcg/dose inhaler Inhale 1 Puff as instructed two times a day. RINSE AND GARGLE MOUTH WITH WATER AFTER EACH USE. hydroCHLOROthiazide 25 mg tablet Take 1 tablet by mouth once daily. rosuvastatin (CRESTOR) 40 mg tablet Take 1 tablet by mouth once daily. simethicone, chewable (WY-ACID GAS RELIEF,SIMETHICON,) 80 mg chewable tablet Take 1 tablet by mouth every 6 hours as needed. traZODone (DESYREL) 50 mg tablet Take 1 tablet by mouth at bedtime as needed. verapamil ER (VERELAN) 120 mg 24 hr capsule Take 1 capsule by mouth once daily. esomeprazole (NEXIUM) 20 mg capsule Take 1 capsule by mouth daily before breakfast. 1/2 hr before meal. aspirin, enteric coated (ASPIRIN, ENTERIC COATED) 81 mg EC tablet Take 1 tablet by mouth once daily. nystatin (MYCOSTATIN) 100,000 unit/mL suspension Take 5 mL by mouth four times daily. 1tsp swish in mouth for several minutes, then swallow (or expectorate) 4 times daily until gone. promethazine (PHENERGAN) 25 mg tablet Take 1 tablet by mouth every 6 hours as needed for nausea/vomiting. blood sugar diagnostic (BLOOD GLUCOSE TEST) test strip Test blood sugar(s) 1 times daily. Dx: (R73.9) Hyperglycemia; (R73.03) Prediabetes Insulin: No potassium chloride (KLOR-CON) 20 mEq packet Take 20 mEq by mouth twice daily. (Patient taking differently: Take 20 mEq by mouth two times a day. Taking 3 times per week.) senna (SENOKOT) 8.6 mg tab Take 2 tablets by mouth twice daily. (Patient taking differently: Take 2 tablets by mouth two times a day as needed.) oxyCODONE-acetaminophen (PERCOCET) 7.5-325 mg tablet Take 1 tablet by mouth every 8 hours as needed for pain. rizatriptan (MAXALT) 10 mg tablet Take 10 mg by mouth as needed. May repeat in 2 hours if needed cyclobenzaprine (FLEXERIL) 10 mg tablet Take 10 mg by mouth twice daily as needed for Muscle Spasm. polyethylene glycol 3350 (MIRALAX) 17 gram/dose powder Take 17 g by mouth once daily. NOT NEEDING NOW Nebulizer NEBULIZER FOR HOME USE with supplies. DX: (J45.40) Moderate persistent asthma without complication (primary encounter diagnosis) predniSONE (DELTASONE) 10 mg tablet Take 4 daily for three days, then 3 daily for three days, then 2 daily for three days, then one daily for three days. REVIEW OF SYSTEMS: GENERAL: No fever, night sweats, weight loss or malaise. All other reviewed and negative other than HPI. PHYSICAL EXAMINATION: VITAL SIGNS: BP 107/52 Pulse 75 Temp (Src) 97.2 (Temporal) Wt 201 lb (91.2kg) SpO2 94% LMP 11/04/2012 GENERAL APPEARANCE: Well appearing, in no acute distress, alert and oriented x3, well-hydrated, well nourished. LUNGS: CTA HEART: Reg I spent a total of 30 minutes on the date of the service which included preparing to see the patient, [id number] patient care, completing clinical documentation, obtaining and/or reviewing separately obtained history, performing a medically appropriate examination, counseling and educating the patient/family/caregiver, independently interpreting results (not separately reported), and communicating results to the patient/family/caregiver. Also review of images Electronically Signed: Sandoval Burgess MD August 19, 2024 documented in this encounter [facility] 07-10-2024 History of Present illness Narrative Assessment unchanged from 07/08/24 office visit with Jairo Preciado CNP documented in this encounter [facility] 07-09-2024 Telephone encounter Note Prescription Refill Information The patient has been identified by name and date of : Yes Caregiver verified no other encounters exist for this prescription request: Yes Caregiver confirmed with patient/requestor that no other refills are due, in the near future, with this provider at this time: Yes The last office visit in the department: 06/06/24 Does the patient have a future office visit with this provider/department: Yes 09/08/24 Requested Prescriptions Pending Prescriptions Disp Refills multivitamin tablet 30 tablet 11 Sig: Take 1 tablet by mouth once daily. Tawana Fernandez LPN July 09, 2024 7:32 AM [facility] 07-09-2024 Miscellaneous Notes Prescription Refill Information The patient has been identified by name and date of : Yes Caregiver verified no other encounters exist for this prescription request: Yes Caregiver confirmed with patient/requestor that no other refills are due, in the near future, with this provider at this time: Yes The last office visit in the department: 06/06/24 Does the patient have a future office visit with this provider/department: Yes 09/08/24 Requested Prescriptions Pending Prescriptions Disp Refills multivitamin tablet 30 tablet 11 Sig: Take 1 tablet by mouth once daily. Tawana Fernandez LPN July 09, 2024 7:32 AM documented in this encounter [facility] 07-09-2024 Telephone encounter Note Prescription Refill Information The patient has been identified by name and date of : Yes Caregiver verified no other encounters exist for this prescription request: Yes Caregiver confirmed with patient/requestor that no other refills are due, in the near future, with this provider at this time: Yes The last office visit in the department: 06/06/24 Does the patient have a future office visit with this provider/department: Yes 09/08/24 Requested Prescriptions Pending Prescriptions Disp Refills varenicline (CHANTIX CONTINUING MONTH BOX) 1 mg tablet 56 tablet 3 Sig: Take 1 tablet by mouth two times a day. esomeprazole (NEXIUM) 20 mg capsule 90 capsule 3 Sig: Take 1 capsule by mouth daily before breakfast. 1/2 hr before meal. Tawana Fernandez LPN July 09, 2024 7:25 AM [facility] 07-09-2024 Miscellaneous Notes Prescription Refill Information The patient has been identified by name and date of : Yes Caregiver verified no other encounters exist for this prescription request: Yes Caregiver confirmed with patient/requestor that no other refills are due, in the near future, with this provider at this time: Yes The last office visit in the department: 06/06/24 Does the patient have a future office visit with this provider/department: Yes 09/08/24 Requested Prescriptions Pending Prescriptions Disp Refills varenicline (CHANTIX CONTINUING MONTH BOX) 1 mg tablet 56 tablet 3 Sig: Take 1 tablet by mouth two times a day. esomeprazole (NEXIUM) 20 mg capsule 90 capsule 3 Sig: Take 1 capsule by mouth daily before breakfast. 1/2 hr before meal. Tawana Fernandez LPN July 09, 2024 7:25 AM documented in this encounter [facility] 07-08-2024 History of Present illness Narrative Chief Complaint Patient presents with: Established Patient HPI: Lata Smith is a 63 year old female who presents here today for evaluation for treatment on . Per Addie Carbajal's previous note: presented with worsening shortness of breath and hemoptysis for several months. Patient was seen in primary care clinic in May was treated with antibiotic without improvement. She was seen by Dr. Castillo and a CT chest revealed a lung mass and mediastinal adenopathy. She had no fever Chills, rigor, pleuritic chest pain, chest trauma. She has stable exertional dyspnea with activities of daily living, and exertional wheezing. She also complained of severe right hip pain along with pressure on her right side of her chest for couple months. Her staging PET scan on 08/03/2020 unfortunately showed metastatic disease. She had bronchoscopy and EBUS biopsy of the mediastinal lymph node on 08/19/2020. Biopsy was consistent with non-small cell, favoring adenocarcinoma the lung. She is here today to discuss treatment option for metastatic lung cancer. Patient is lives with an adult son. She is quit smoking since October after her heart attack. She denied any any weight loss since her heart attack. She has no hoarseness or dysphagia. No headaches or neurological symptoms. She has severe right hip pain secondary to metastatic disease. MRI scan of brain shows no evidence of metastatic disease. She completed palliative radiation therapy to her right hip. Current therapy: 1) Pembrolizumab. 2) Zometa done, completed 3 [address] in November [address]. Burgess ran case by med onc and rad onc at [facility], their review suggests stability of disease, they recommend observation, possible SBRT to lung if we see further growth of right lung nodule. No new concerns today. Appetite:Some day I eat a lot, other days no. Wt. up 3# since last visit. Energy level:Poor. Denies fevers. Mouth:denies sores Resp:occ. cough, denies sob, occ. covarrubias, recently treated by PCP for bronchitis-was on ATB/pred. Cardiac:denies chest pain/palpitations GI:denies abd pain, n/v, moving bowels regularly :denies dysuria/hematuria Extrem:denies pain Neuro:denies symptoms of neuropathy Skin:denies rashes Heme:denies bleeding The ROS is otherwise negative. Past medical history, appointments, medications, allergies reviewed. No changes. EXAM: BP 113/70 Pulse 79 Temp 36.6 C (97.8 F) (Temporal) Wt 90.5 kg (199 lb 8.3 oz) LMP 11/04/2012 SpO2 94% BMI 38.97 kg/m APPEARANCE Well appearing, alert, in no acute distress, well-hydrated, well nourished. HEART RRR with normal S1 and S2, no murmurs LUNG clear to auscultation LYMPH NODES No cervical lymphadenopathy, No supraclavicular lymphadenopathy, and No axillary lymphadenopathy. ABDOMEN bowel sounds normoactive, soft, non-tender EXTREMITIES No edema NEURO Awake, alert and oriented x 3, Normal gait, and No involuntary motions. SKIN Skin color, texture, turgor normal, no suspicious rashes or lesions LABS: Latest Ref Rng 04/17/2024 05/27/2024 07/08/2024 WBC 3.70 - 11.00 k/uL 7.87 7.75 8.19 RBC 3.90 - 5.20 m/uL 5.10 5.13 4.78 Hemoglobin 11.5 - 15.5 g/dL 14.2 14.4 13.8 Hematocrit 36.0 - 46.0 % 43.3 43.4 41.3 MCV 80.0 - 100.0 fL 84.9 84.6 86.4 MCH 26.0 - 34.0 pg 27.8 28.1 28.9 MCHC 30.5 - 36.0 g/dL 32.8 33.2 33.4 RDW-CV 11.5 - 15.0 % 15.6 (H) 15.2 (H) 15.6 (H) Platelet Count 150 - 400 k/uL 228 219 179 MPV 9.0 - 12.7 fL 10.3 10.0 9.9 Neut% % 71.7 70.1 75.0 Abs Neut (ANC) 1.45 - 7.50 k/uL 5.65 5.44 6.14 Lymph% % 17.7 19.0 14.8 Abs Lymph 1.00 - 4.00 k/uL 1.39 1.47 1.21 [place]% % 6.5 6.5 5.7 Abs [place] <0.87 k/uL 0.51 0.50 0.47 Eosin% % 2.8 3.0 3.2 Abs Eosin <0.46 k/uL 0.22 0.23 0.26 Baso% % 0.9 0.9 0.7 Abs Baso <0.11 k/uL 0.07 0.07 0.06 Immature Gran % % 0.4 0.5 0.6 IMMATURE GRANS (ABS) <0.10 k/uL 0.03 0.04 0.05 NRBC /100 WBC 0.0 0.0 0.0 Absolute nRBC <0.01 k/uL <0.01 <0.01 <0.01 DTYPE Auto Auto Auto CMP/TSH/T4/Cortisol: Pending ASSESSMENT/PLAN: 1. 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 - Overall tolerating keytruda well. - Reviewed CBC with pt. - CMP/TSH/T4/Cortisol pending. - Pt. declines IV potassium if needed. - Continue current medications. - Proceed as scheduled on for keytruda pending labs. - Follow up as scheduled. - Pt. aware to call office with any questions/concerns. The patient indicates understanding of these issues and agrees with the plan. All documentation from previous visit of 05/27/24-Addie Carbajal CNP was copied and pasted, documentation has been reviewed and edited as necessary for today's visit. Carrie Preciado APRN.[email or web address] documented in this encounter [facility] 06-12-2024 History of Present illness Narrative RECIST TUMOR MEASUREMENTS IRB #: [id number] / [id number] Image Modality: PET Image Date: 05/05/2024 Date of Baseline Scan: 09/16/2020 Date of Comparison Scan: 02/18/2024 Research Nurse: Liza Canas Follow-Up Measurement Lesion A right lower lobe nodule, Lesion B lymph node,right hilar Sum Date Size (3m) Series/Image # Size (mm) Series/Image # Baseline: 09/16/2020 3.0 > 30 mm Series 9, Image 77 22 mm Series 7, Image 75 52 06/22/2021 16 mm Series 6 Image 78 No longer Visible 16 08/26/2021 14 mm Series 9 Image 79 No longer Visible 14 11/18/2021 14 mm Series 6, Image 76 No longer Visible 14 02/10/2022 16 mm Series 9, Image 82 No longer Visible 16 05/05/2022 14 mm Series 6, Image 83 No longer Visible 14 08/10/2022 14 mm Series 9, Image 81 No longer Visible 14 11/13/2022 1.3 - 13 mm Series 9, Image 78 No longer Visible 13 mm 02/10/2023 1.3 - 13 mm Series 9, Image 86 No longer Visible 13 mm 05/11/2023 1.2 - 12 mm Series 9, Image 75 No longer Visible 12mm 08/10/2023 1.2 - 12 mm Series 8, Image 72 No longer Visible 12 mm 11/12/2023 1.3 - 13 mm Series 3, Image 96 No longer Visible 13 mm 02/18/2024 1.3 - 13 mm Series 3, Image 101 No longer Visible 13 mm 05/05/2024 1.1 - 11 mm Series 3, Image 103) No longer Visible 11 mm List Non-Target Lesion Site: Yes * Lung nodule (<10 mm); 3 mm right upper lobe laterally located nodule, (Series 3, Image 89), stable in size * Lung nodule (<10 mm); approximately 9 mm right lower lobe nodule, (Series 3, Image 144), accurate measurement is limited due to respiratory motion misregistration * Lymph node (<15 mm short axis); 8mm right prevascular lymph node with FDG uptake, (Series 3, Image 87) * Lymph node (<15 mm short axis); 8mm subcarinal lymph node with FDG uptake, (Series 3, Image 103) Sum of Lesions: 1.1 cm - 11 mm Baseline: 5.2 cm - 52 mm Nacho: 1.1 cm -11 mm Response: Stable Disease Measurements have been reviewed, discussed, and approved by MD Liza Sanchez RN June 12, 2024 documented in this encounter [facility] 06-06-2024 Instructions Fiona Durant MD - 06/06/2024 6:28 PM EDT -Azithromycin (Z-Tu) and Prednisone have been sent to your pharmacy - Continue using your current inhalers (albuterol, Incruse Ellipta, and Advair) as prescribed - Monitor your symptoms and start the Prednisone if your breathing worsens - Consider scheduling an appointment with your imaging administrator to discuss your COPD management and smoking cessation options - Continue to monitor your blood sugar levels, especially since you are not fasting for these tests - A1C test has been added to your next lab visit to check your glucose control - Monitor your weight and continue with portion control and healthy eating habits - Contact the office if your symptoms worsen or if you have any concerns before your next scheduled follow-up. documented in this encounter [facility] 06-06-2024 History of Present illness Narrative This note was created using [employer]. Subjective Lata Smith is a 63 year old female. Patient presents with: F/U 3 Month SUBJECTIVE: Lata Smith is a 63 year old year old lady here today for 3 month follow up appointment for review of medical conditions. Patient is a 63-year-old female with a history of COPD presenting with a 2-week history of increased coughing and a 1-week history of expectorating green mucus. She reports associated fever and chills, but denies diaphoresis. She has been managing her symptoms with ibuprofen, which she reports has been effective in reducing her fever. She denies any significant dyspnea and reports that her inhalers (albuterol, Advair, and Incruse Ellipta) have been effective in managing her breathing. She is currently smoking one pack of cigarettes per day, down from two packs per day, and has not yet tried Chantix. She reports stress related to managing household responsibilities and financial constraints. She has a history of using doxycycline and Z-Tu for similar symptoms in the past, with a preference for Z-Tu. She is also monitoring her weight and reports a gradual decrease with portion control. 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 Take 1-3 capsules by mouth every 6-8 hours as needed. furosemide (LASIX) 20 mg tablet Take 1-2 tablets by mouth once daily as needed. umeclidinium (INCRUSE ELLIPTA) 62.5 mcg/actuation inhaler Inhale 1 Puff as instructed once daily. losartan (COZAAR) 25 mg tablet Take 1 tablet by mouth once daily. naloxone 4 mg/actuation nasal spray (NARCAN) Use 1 spray in one nostril as needed for overdose. May repeat every 2 to 3 min in alternating nostrils until medical assistance is available albuterol (PROVENTIL) 2.5 mg /3 mL (0.083 %) nebulizer solution Use 3 mL via nebulizer every 6 hours as needed for wheezing/shortness of breath. 1 vial contains 3 ml. albuterol HFA (VENTOLIN HFA) 90 mcg/actuation inhaler Inhale 2 Puffs as instructed every 4 hours as needed for Wheezing/Shortness of Breath. Do not replace with ProAir. aluminum-magnesium hydroxide-simethicone 200-200-20 mg/5 mL suspension Take 15 mL by mouth every 6 hours as needed. diclofenac (VOLTAREN) 1 % topical gel Apply 2 g to affected area four times a day as needed (upper extremity joint(s)). fluticasone (FLONASE) 50 mcg/actuation nasal spray Use 2 Sprays in each nostril once daily. Rinse mouth after use fluticasone-salmeterol (ADVAIR DISKUS) 250-50 mcg/dose inhaler Inhale 1 Puff as instructed two times a day. RINSE AND GARGLE MOUTH WITH WATER AFTER EACH USE. hydroCHLOROthiazide 25 mg tablet Take 1 tablet by mouth once daily. ibuprofen (MOTRIN) 800 mg tablet Take 1 tablet by mouth every 8 hours as needed for pain. rosuvastatin (CRESTOR) 40 mg tablet Take 1 tablet by mouth once daily. simethicone, chewable (WY-ACID GAS RELIEF,SIMETHICON,) 80 mg chewable tablet Take 1 tablet by mouth every 6 hours as needed. traZODone (DESYREL) 50 mg tablet Take 1 tablet by mouth at bedtime as needed. varenicline (CHANTIX CONTINUING MONTH BOX) 1 mg tablet Take 1 tablet by mouth two times a day. verapamil ER (VERELAN) 120 mg 24 hr capsule Take 1 capsule by mouth once daily. esomeprazole (NEXIUM) 20 mg capsule Take 1 capsule by mouth daily before breakfast. 1/2 hr before meal. aspirin, enteric coated (ASPIRIN, ENTERIC COATED) 81 mg EC tablet Take 1 tablet by mouth once daily. nystatin (MYCOSTATIN) 100,000 unit/mL suspension Take 5 mL by mouth four times daily. 1tsp swish in mouth for several minutes, then swallow (or expectorate) 4 times daily until gone. promethazine (PHENERGAN) 25 mg tablet Take 1 tablet by mouth every 6 hours as needed for nausea/vomiting. blood sugar diagnostic (BLOOD GLUCOSE TEST) test strip Test blood sugar(s) 1 times daily. Dx: (R73.9) Hyperglycemia; (R73.03) Prediabetes Insulin: No multivitamin tablet Take 1 tablet by mouth once daily. potassium chloride (KLOR-CON) 20 mEq packet Take 20 mEq by mouth twice daily. (Patient taking differently: Take 20 mEq by mouth two times a day. Rotates 1 packets daily 1 packet BID) senna (SENOKOT) 8.6 mg tab Take 2 tablets by mouth twice daily. (Patient taking differently: Take 2 tablets by mouth two times a day as needed.) oxyCODONE-acetaminophen (PERCOCET) 7.5-325 mg tablet Take 1 tablet by mouth every 8 hours as needed for pain. rizatriptan (MAXALT) 10 mg tablet Take 10 mg by mouth as needed. May repeat in 2 hours if needed cyclobenzaprine (FLEXERIL) 10 mg tablet Take 10 mg by mouth twice daily as needed for Muscle Spasm. polyethylene glycol 3350 (MIRALAX) 17 gram/dose powder Take 17 g by mouth once daily. NOT NEEDING NOW Nebulizer NEBULIZER FOR HOME USE with supplies. DX: (J45.40) Moderate persistent asthma without complication (primary encounter diagnosis) No current facility-administered medications for this visit. Review of Systems Objective LMP 11/04/2012 Physical Exam Constitutional: Appearance: Normal appearance. HENT: Head: Normocephalic. Eyes: Conjunctiva/sclera: Conjunctivae normal. Cardiovascular: Rate and Rhythm: Normal rate and regular rhythm. Heart sounds: Normal heart sounds. Pulmonary: Effort: Pulmonary effort is normal. Breath sounds: Normal breath sounds. Skin: General: Skin is warm and dry. Neurological: General: No focal deficit present. Mental Status: She is alert and oriented to person, place, and time. Psychiatric: Mood and Affect: Mood normal. Behavior: Behavior normal. Thought Content: Thought content normal. Judgment: Judgment normal. Latest Ref Rn 03/05/2024 04/15/2024 04/17/2024 05/27/2024 05/29/2024 WBC 3.70 - 11.00 k/uL 7.87 7.75 RBC 3.90 - 5.20 m/uL 5.10 5.13 Hemoglobin 11.5 - 15.5 g/dL 14.2 14.4 Hematocrit 36.0 - 46.0 % 43.3 43.4 MCV 80.0 - 100.0 fL 84.9 84.6 MCH 26.0 - 34.0 pg 27.8 28.1 MCHC 30.5 - 36.0 g/dL 32.8 33.2 RDW-CV 11.5 - 15.0 % 15.6 (H) 15.2 (H) Platelet Count 150 - 400 k/uL 228 219 MPV 9.0 - 12.7 fL 10.3 10.0 Neut% % 71.7 70.1 Abs Neut (ANC) 1.45 - 7.50 k/uL 5.65 5.44 Lymph% % 17.7 19.0 Abs Lymph 1.00 - 4.00 k/uL 1.39 1.47 [place]% % 6.5 6.5 Abs [place] <0.87 k/uL 0.51 0.50 Eosin% % 2.8 3.0 Abs Eosin <0.46 k/uL 0.22 0.23 Baso% % 0.9 0.9 Abs Baso <0.11 k/uL 0.07 0.07 Immature Gran % % 0.4 0.5 IMMATURE GRANS (ABS) <0.10 k/uL 0.03 0.04 NRBC /100 WBC 0.0 0.0 Absolute nRBC <0.01 k/uL <0.01 <0.01 DTYPE Auto Auto Protein, Total 6.3 - 8.0 g/dL 7.4 7.8 7.3 Albumin 3.9 - 4.9 g/dL 4.2 4.4 4.3 Calcium 8.5 - 10.2 mg/dL 9.4 9.5 9.7 9.4 Bilirubin, Total 0.2 - 1.3 mg/dL 0.2 <0.2 (L) <0.2 (L) Alkaline Phosphatase 34 - 123 U/L 127 (H) 133 (H) 125 (H) AST 13 - 35 U/L 16 14 15 ALT 7 - 38 U/L 20 19 19 Glucose 74 - 99 mg/dL 128 (H) 104 (H) 111 (H) 132 (H) BUN 7 - 21 mg/dL 13 14 14 12 Creatinine 0.58 - 0.96 mg/dL 0.76 0.77 0.77 0.72 Sodium 136 - 144 mmol/L 139 139 139 136 Potassium 3.7 - 5.1 mmol/L 3.9 4.2 2.8 (L) 3.1 (L) Chloride 98 - 107 mmol/L 103 104 101 102 CO2 22 - 30 mmol/L 27 26 26 25 Anion Gap 8 - 15 mmol/L 9 9 12 9 eGFR >=60 mL/min/1.73m 89 87 87 95 Cortisol 4.8 - 19.5 ug/dL 4.6 (L) 10.7 TSH 0.270 - 4.200 mIU/L 2.190 2.300 LD 135 - 214 U/L 203 Free T4 0.9 - 1.7 ng/dL 1.1 1.2 Magnesium 1.7 - 2.3 mg/dL 2.0 Legend: (L) Low (H) High Assessment and Plan # Acute bronchitis with chronic obstructive pulmonary disease (COPD) (HCC) (HCC) - Symptoms include cough for two weeks, green sputum production for one week, and intermittent fevers and chills. No diaphoresis reported with fever resolution. - Auscultation reveals low-pitched wheezes; no signs of pneumonia. - Current medications include albuterol, Advair, and Incruse Ellipta. - Prescribed Z-Tu, sent to [facility]. - Prescribed prednisone taper (4 mg for 3 days, 3 mg for 3 days, 2 mg for 3 days, 1 mg for 3 days) to have on hand if symptoms worsen. - Continue current inhaler regimen. - Advised to monitor symptoms and use prednisone if necessary. # Elevated glucose - Recent labs show glucose levels of 130 mg/dL on 05/29 and 138 mg/dL on 05/27; both non-fasting. - Last A1C in December was 6.3%. - Ordered A1C to be done with next lab draw. - Advised patient on the importance of monitoring blood glucose levels. # Class 2 obesity due to excess calories with body mass index (BMI) of 38.0 to 38.9 in adult, unspecified whether serious comorbidity present - Current weight is 195 lbs with a BMI of 38.0. - Patient has lost a few pounds recently through portion control. - Encouraged continued weight management through healthy eating and portion control. - Advised patient to focus on overall health rather than just weight loss. Encounter Diagnosis ICD-10-CM 1. Acute bronchitis with chronic obstructive pulmonary disease (COPD) ([facility]) ([facility]) J44.0 azithromycin (ZITHROMAX Z-TU) 250 mg tablet J20.9 2. Non-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 ([facility]) C34.90 azithromycin (ZITHROMAX Z-TU) 250 mg tablet C79.51 3. Elevated glucose R73.09 HEMOGLOBIN A1C 4. Class 2 obesity due to excess calories with body mass index (BMI) of 38.0 to 38.9 in adult, unspecified whether serious comorbidity present E66.09 Z68.38 5. Cigarette smoker F17.210 Still at [facility] Fiona Durant MD documented in this encounter [facility] 05-29-2024 History of Present illness Narrative Assessment unchanged from 05/27/24 office visit with Rickey Carbajal CNP documented in this encounter [facility] 05-28-2024 Telephone encounter Note Discussed with Floresita Carbajal CNP. Had OV with her 05/27/24. Patient does not have any trouble ambulating and can get TUCKs OTC. Oneida Amaro RN [facility] Work Phone: 05-28-2024 Miscellaneous Notes Discussed with Floresita Carbajal CNP. Had OV with her 05/27/24. Patient does not have any trouble ambulating and can get TUCKs OTC. Oneida Amaro RN Olga Duncan from Palliative care, leaves asking if patient can have order for electric wheelchair and Tucks pads. Asking if insurance would pay for those items. Oneida Amaro RN documented in this encounter [facility] 05-27-2024 History of Present illness Narrative Oncologic problem(s): 1) Stage IV, non-small cell (adenocarcinoma) lung cancer. HISTORY OF PRESENT ILLNESS: Lata Smith is a 63 year old female who presented with worsening shortness of breath and hemoptysis for several months. Patient was seen in primary care clinic in May was treated with antibiotic without improvement. She was seen by Dr. Castillo and a CT chest revealed a lung mass and mediastinal adenopathy. She had no fever Chills, rigor, pleuritic chest pain, chest trauma. She has stable exertional dyspnea with activities of daily living, and exertional wheezing. She also complained of severe right hip pain along with pressure on her right side of her chest for couple months. Her staging PET scan on 08/03/2020 unfortunately showed metastatic disease. She had bronchoscopy and EBUS biopsy of the mediastinal lymph node on 08/19/2020. Biopsy was consistent with non-small cell, favoring adenocarcinoma the lung. She is here today to discuss treatment option for metastatic lung cancer. Patient is lives with an adult son. She is quit smoking since October after her heart attack. She denied any any weight loss since her heart attack. She has no hoarseness or dysphagia. No headaches or neurological symptoms. She has severe right hip pain secondary to metastatic disease. MRI scan of brain shows no evidence of metastatic disease. She completed palliative radiation therapy to her right hip. Current therapy: 1) Pembrolizumab. 2) Zometa done, completed [address] Burgess ran case by med onc and rad onc at [facility], their review suggests stability of disease, they recommend observation, possible SBRT to lung if we see further growth of right lung nodule. Interval Hx: Patient presents for follow up prior to pembro with her son. She reports feeling blah today. We reviewed recent PET from 05/07/24 showing stable disease from prior scan in February. She otherwise denies new issues. No new or worsening SOB, CP, palpitations. She is eating and drinking ok. No changes in bowel or bladder habits. C/o nocturia over 3x nightly, offered urology referral. Pt states that she has discussed with PCP, declines urology ref at this time. Occasional diarrhea, comes and goes pt states that this is stable. Reviewed CMP results and low K today. Pt states that she has not been consistently taking K powder, encouraged her to do so. Pt declines IV replacement. Cautioned patient and son on implementing CAM therapies. Denies rash or skin changes. Denies new aches or pains. No new lumps or bumps. Continues tolerating pembro well. 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 No date: Hypertension No date: Irritable bowel syndrome No date: Migraine without aura No date: Obesity, unspecified No date: Other forms of migraine 06/28/2020: ST elevation myocardial infarction involving right coronary artery (HCC) No date: Tobacco use disorder PAST SURGICAL HISTORY No date: CHOLECYSTECTOMY Comment: Cholecystectomy 11/20/2012: COLONOSCOPY FLX DX W/COLLJ SPEC WHEN PFRMD Comment: Colonoscopy 05/2013: F TOTAL ABDOMINAL HYSTERECTOMY 07/21/2021: INCISE FINGER TENDON SHEATH; Right Comment: Right ring trigger finger release 02/26/2023: INCISE FINGER TENDON SHEATH; Left Comment: Left ring trigger finger release 02/17/2015: LAPAROSCOPIC APPENDECTOMY 1983: LIG/TRNSXJ FLP TUBE ABDL/VAG APPR UNI/BI Comment: Tubal ligation 04/29/2004: NEUROPLASTY &/TRANSPOS MEDIAN NRV CARPAL TUNNE Comment: Carpal tunnel decomp,left 05/17/2004: NEUROPLASTY &/TRANSPOS MEDIAN NRV CARPAL TUNNE Comment: Carpal tunnel decomp, right No date: NOVASURE No date: PAST SURGICAL HISTORY OF Comment: cardiac stents FAMILY HISTORY Problem Relation Age of Onset Blood Disease Mother Alzheimer's Disease Father other (lung cancer) Brother 3rd brother, small cell Diabetes Maternal Grandmother Cerebral Embolism Brother oldest brother, aneurysm Cancer Brother 2nd brother, some type of skin cancer Social History Tobacco Use Smoking status: Every Day Current packs/day: 2.00 Average packs/day: 2.0 packs/day for 42.0 years (84.0 ttl pk-yrs) Types: Cigarettes Smokeless tobacco: Never Tobacco comments: Down to 1PPD Vaping Use Vaping status: Former Substance Use Topics Alcohol use: Yes Comment: Occasional glass of wine. A few per month Drug use: Yes Types: Marijuana Comment: every 2-3 days ALLERGIES: ALLERGIES Allergen Reactions Augmentin [Amoxicil* Diarrhea Tolerates plain penicillins such as amoxicillin Penicillins Hives Also GI upset. CURRENT OUTPATIENT MEDICATIONS: benzonatate (TESSALON PERLE) 100 mg capsule Take 2 capsules by mouth three times a day as needed for cough. Take 1-3 capsules by mouth every 6-8 hours as needed. furosemide (LASIX) 20 mg tablet Take 1-2 tablets by mouth once daily as needed. umeclidinium (INCRUSE ELLIPTA) 62.5 mcg/actuation inhaler Inhale 1 Puff as instructed once daily. losartan (COZAAR) 25 mg tablet Take 1 tablet by mouth once daily. naloxone 4 mg/actuation nasal spray (NARCAN) Use 1 spray in one nostril as needed for overdose. May repeat every 2 to 3 min in alternating nostrils until medical assistance is available albuterol (PROVENTIL) 2.5 mg /3 mL (0.083 %) nebulizer solution Use 3 mL via nebulizer every 6 hours as needed for wheezing/shortness of breath. 1 vial contains 3 ml. albuterol HFA (VENTOLIN HFA) 90 mcg/actuation inhaler Inhale 2 Puffs as instructed every 4 hours as needed for Wheezing/Shortness of Breath. Do not replace with ProAir. aluminum-magnesium hydroxide-simethicone 200-200-20 mg/5 mL suspension Take 15 mL by mouth every 6 hours as needed. diclofenac (VOLTAREN) 1 % topical gel Apply 2 g to affected area four times a day as needed (upper extremity joint(s)). fluticasone (FLONASE) 50 mcg/actuation nasal spray Use 2 Sprays in each nostril once daily. Rinse mouth after use fluticasone-salmeterol (ADVAIR DISKUS) 250-50 mcg/dose inhaler Inhale 1 Puff as instructed two times a day. RINSE AND GARGLE MOUTH WITH WATER AFTER EACH USE. hydroCHLOROthiazide 25 mg tablet Take 1 tablet by mouth once daily. ibuprofen (MOTRIN) 800 mg tablet Take 1 tablet by mouth every 8 hours as needed for pain. rosuvastatin (CRESTOR) 40 mg tablet Take 1 tablet by mouth once daily. simethicone, chewable (WY-ACID GAS RELIEF,SIMETHICON,) 80 mg chewable tablet Take 1 tablet by mouth every 6 hours as needed. traZODone (DESYREL) 50 mg tablet Take 1 tablet by mouth at bedtime as needed. verapamil ER (VERELAN) 120 mg 24 hr capsule Take 1 capsule by mouth once daily. esomeprazole (NEXIUM) 20 mg capsule Take 1 capsule by mouth daily before breakfast. 1/2 hr before meal. aspirin, enteric coated (ASPIRIN, ENTERIC COATED) 81 mg EC tablet Take 1 tablet by mouth once daily. nystatin (MYCOSTATIN) 100,000 unit/mL suspension Take 5 mL by mouth four times daily. 1tsp swish in mouth for several minutes, then swallow (or expectorate) 4 times daily until gone. promethazine (PHENERGAN) 25 mg tablet Take 1 tablet by mouth every 6 hours as needed for nausea/vomiting. multivitamin tablet Take 1 tablet by mouth once daily. senna (SENOKOT) 8.6 mg tab Take 2 tablets by mouth twice daily. (Patient taking differently: Take 2 tablets by mouth two times a day as needed.) oxyCODONE-acetaminophen (PERCOCET) 7.5-325 mg tablet Take 1 tablet by mouth every 8 hours as needed for pain. rizatriptan (MAXALT) 10 mg tablet Take 10 mg by mouth as needed. May repeat in 2 hours if needed cyclobenzaprine (FLEXERIL) 10 mg tablet Take 10 mg by mouth twice daily as needed for Muscle Spasm. polyethylene glycol 3350 (MIRALAX) 17 gram/dose powder Take 17 g by mouth once daily. NOT NEEDING NOW Nebulizer NEBULIZER FOR HOME USE with supplies. DX: (J45.40) Moderate persistent asthma without complication (primary encounter diagnosis) varenicline (CHANTIX CONTINUING MONTH BOX) 1 mg tablet Take 1 tablet by mouth two times a day. blood sugar diagnostic (BLOOD GLUCOSE TEST) test strip Test blood sugar(s) 1 times daily. Dx: (R73.9) Hyperglycemia; (R73.03) Prediabetes Insulin: No potassium chloride (KLOR-CON) 20 mEq packet Take 20 mEq by mouth twice daily. (Patient taking differently: Take 20 mEq by mouth two times a day. Rotates 1 packets daily 1 packet BID) REVIEW OF SYSTEMS: GENERAL: No fever, night sweats, weight loss or malaise. All other reviewed and negative other than HPI. All systems reviewed on 05/27/2024 with pertinent positives and negatives as outlined in the interval history. PHYSICAL EXAMINATION: VITAL SIGNS: BP 125/73 Pulse 81 Temp (Src) 97.9 (Temporal) Wt 196 lb (88.9kg) SpO2 95% LMP 11/04/2012 GENERAL APPEARANCE: Well appearing, in no acute distress, alert and oriented x3, well-hydrated, well nourished. HEENT: Normocephalic, no sclera icterus, external ears normal Neck: Supple, no JVD. Chest: Clear bilaterally, no wheezes, not labored. Heart: Normal S1 and S2, no abnormal sounds Abdomen: Soft, nontender, nondistended Extremities: No edema Neurological: Grossly intact Skin: Warm and dry with no rashes or ulcerations. Hematologic: no bruising or petechiae. Psychiatric: Alert and oriented x3. Emotional well-being assessment was performed. Pt denies depression, distress, and or problems with coping or adjustment. I have performed the physical exam today (05/27/2024) and have edited the note to correlate with current findings. RECOMMENDATION/PLAN: (C34.31) Cancer of lower lobe of right lung (HCC) (primary encounter diagnosis) (C79.51) Bone metastases (HCC) Assessment: PD-L1 expression 100% ROS1 & RET not detected. BRAF No variant detected. EGFR - No variant detected. HER2 (ERBB2) - No variant detected. KRAS A sequence change: [id number] ([id number]) was detected at approximately 30% allelic proportion. MET- No variant detected. -Pt with metastatic disease to bones at time of initial diagnosis. -She continues to do well on pembrolizumab. OH. -PET 05/07 remains stable. - ?Zometa Plan: -Continue to follow with pall med -Continue with pembrolizumab after 2 years on study. -Pembrolizumab 400 mg IV every 42 days, tolerating well. Continue with tx tomorrow 05/28 -Repeat CBC, CMP, TSH, cortisol & office visit in 6 weeks Hypokalemia - resume K powder BID, discussed K rich foods. - pt adamantly refuses IV potassium - reheck cmp, mag Follow up as scheduled Floresita Carbajal APRN.CHANGE MANAGEMENT DIRECTOR I spent a total of 45 minutes on the date of the service which included preparing to see the patient, [id number] patient care, completing clinical documentation, and counseling and educating the patient/family/caregiver. Portions of this note including HPI, ROS, impression/plan may have been copied forward as to provide important historical information essential in contributing to medical decision making. Documentation has been reviewed and edited as necessary to support clinical decision making for today's visit and to reflect my own independent evaluation of this patient. documented in this encounter [facility] 05-23-2024 Telephone encounter Note Olga Duncan from Palliative care, leaves asking if patient can have order for electric wheelchair and Tucks pads. Asking if insurance would pay for those items. Oneida Amaro RN [facility] 05-05-2024 History of Present illness Narrative RADIOLOGY SERVICE PROGRESS NOTE SERVICE DATE: 05/05/2024 SERVICE TIME: 11:49 AM PATIENT IDENTITY VERIFICATION COMPLETED USING TWO (2) STANDARD IDENTIFIERS: Name and Date of confirmed by patient verbally FALL SCREENING: Has the patient had 2 falls in the last year or 1 fall with injury or currently using an Ambulatory Assistive Device (Walker, Cane, Wheelchair, Crutches, etc.)? Yes, Patient High Risk for Falls What interventions were put in place to prevent falls during this visit? Increased Observations by Caregivers PATIENT GENDER DATA: .female ALLERGIES: NA MEDICATIONS REVIEWED: Not applicable PATIENT RELEVANT IMPLANT DATA REVIEWED: Not Applicable PATIENT PRESENTS WITH AN IMPLANTABLE OR ATTACHED SPAR FINISHER: No CREATININE: Creatinine Date Value Ref Range Status 04/17/2024 0.77 0.58 - 0.96 mg/dL Final 04/15/2024 0.76 0.58 - 0.96 mg/dL Final 03/05/2024 0.73 0.58 - 0.96 mg/dL Final Estimated Glomerular Filtration Rate Date Value Ref Range Status 04/17/2024 87 >=60 mL/min/1.73m Final Comment: Estimated Glomerular Filtration Rate (eGFR) is calculated using the 2020 CKD-EPI creatinine equation. This equation utilizes serum creatinine, sex, and age as parameters. The creatinine assay has traceable calibration to isotope dilution-mass spectrometry. Refer to KDIGO guidelines for clinical interpretation. In patients with unstable renal function, e.g. those with acute kidney injury, the eGFR may not accurately reflect actual GFR. eGFR- Date Value Ref Range Status 11/22/2021 >60 Final P.O.C.T. RESULTS: N/A May 05, [address] PERFORMED: No IV SITE: Ambulatory: NM only - direct IV injection in the Right antecubital site POST EXAM PIV STATUS: Discontinued PROCEDURE TYPE: NM INJECT: PET/CT BODY SCAN. 16.3 mCi F18 FDG. No other medications given.. ADMINISTRATION TIME: 1143 PATIENT DISCHARGED TO: Ambulatory patient, left NM department area. A Diagnostic radioactive procedure has taken place, with no further precautions necessary other than routine body substance precautions. More information regarding radiation safety can be found using this link: [email or web address] uclear%20Medicine%[email or web address] df SIGNATURE: FLIP Limon) PATIENT NAME: Lata Smith DATE: May 05, 2024 TIME: 11:49 AM PAGER/CONTACT #: documented in this encounter [facility] 05-05-2024 Note HNO ID: [id number] Author: GERONIMO BEARD RT (R) Service: Nuclear Medicine Author Type: Technologist Type: Progress Notes Filed: 05/05/2024 11:50 Note Text: RADIOLOGY SERVICE PROGRESS NOTE SERVICE DATE: 05/05/2024 SERVICE TIME: 11:49 AM PATIENT IDENTITY VERIFICATION COMPLETED USING TWO (2) STANDARD IDENTIFIERS: Name and Date of confirmed by patient verbally FALL SCREENING: Has the patient had 2 falls in the last year or 1 fall with injury or currently using an Ambulatory Assistive Device (Walker, Cane, Wheelchair, Crutches, etc.)? Yes, Patient High Risk for Falls What interventions were put in place to prevent falls during this visit? Increased Observations by Caregivers PATIENT GENDER DATA: .female ALLERGIES: NA MEDICATIONS REVIEWED: Not applicable PATIENT RELEVANT IMPLANT DATA REVIEWED: Not Applicable PATIENT PRESENTS WITH AN IMPLANTABLE OR ATTACHED SPAR FINISHER: No CREATININE: Creatinine Date Value Ref Range Status 04/17/2024 0.77 0.58 - 0.96 mg/dL Final 04/15/2024 0.76 0.58 - 0.96 mg/dL Final 03/05/2024 0.73 0.58 - 0.96 mg/dL Final Estimated Glomerular Filtration Rate Date Value Ref Range Status 04/17/2024 87 >=60 mL/min/1.73m? Final Comment: Estimated Glomerular Filtration Rate (eGFR) is calculated using the 2020 CKD-EPI creatinine equation. This equation utilizes serum creatinine, sex, and age as parameters. The creatinine assay has traceable calibration to isotope dilution-mass spectrometry. Refer to KDIGO guidelines for clinical interpretation. In patients with unstable renal function, e.g. those with acute kidney injury, the eGFR may not accurately reflect actual GFR. eGFR- Date Value Ref Range Status 11/22/2021 >60 Final P.O.C.T. RESULTS: N/A May 05, [address] PERFORMED: No IV SITE: Ambulatory: ID only - direct IV injection in the Right antecubital site POST EXAM PIV STATUS: Discontinued PROCEDURE TYPE: NM INJECT: PET/CT BODY SCAN. 16.3 mCi F18 FDG. No other medications given.. ADMINISTRATION TIME: 1143 PATIENT DISCHARGED TO: Ambulatory patient, left ID department area. A Diagnostic radioactive procedure has taken place, with no further precautions necessary other than routine body substance precautions. More information regarding radiation safety can be found using this link: [email or web address] 20Diagnostic%20Nuclear%20Medicin e%20Procedures.pdf SIGNATURE: RT Ashly(R) PATIENT NAME: Lata Smith DATE: May 05, 2024 TIME: 11:49 AM PAGER/CONTACT #: [facility] 04-17-2024 History of Present illness Narrative Assessment unchanged from 04/15/[address] Burgess documented in this encounter [facility] 04-15-2024 History of Present illness Narrative (Elements copied from my note dated March 05, 2024, have been reviewed and updated where appropriate, and all reflect current assessment and medical decision making from today's encounter, April 15, 2024) HISTORY OF PRESENT ILLNESS: Lata Smith is a 63 year old female who presented with worsening shortness of breath and hemoptysis for several months. Patient was seen in primary care clinic in May was treated with antibiotic without improvement. She was seen by Dr. Castillo and a CT chest revealed a lung mass and mediastinal adenopathy. She had no fever Chills, rigor, pleuritic chest pain, chest trauma. She has stable exertional dyspnea with activities of daily living, and exertional wheezing. She also complained of severe right hip pain along with pressure on her right side of her chest for couple months. Her staging PET scan on 08/03/2020 unfortunately showed metastatic disease. She had bronchoscopy and EBUS biopsy of the mediastinal lymph node on 08/19/2020. Biopsy was consistent with non-small cell, favoring adenocarcinoma the lung. She is here today to discuss treatment option for metastatic lung cancer. Patient is lives with an adult son. She is quit smoking since October after her heart attack. She denied any any weight loss since her heart attack. She has no hoarseness or dysphagia. No headaches or neurological symptoms. She has severe right hip pain secondary to metastatic disease. MRI scan of brain shows no evidence of metastatic disease. She completed palliative radiation therapy to her right hip. Current therapy: 1) Pembrolizumab. 2) Zometa done, completed 3 years in November 2023 I ran her case by med onc and rad onc at [facility], their review suggests stability of disease, they recommend observation, possible SBRT to lung if we see further growth of right lung nodule. Here for follow up, reviewed PET scan from 02-18-24, compared to November, looked overall improvement, new thoracic LN bears observation. 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 Pembrolizumab as planned 2. Repeat PET scan in May 2024 Written and verbal health teaching given to patient, patient verbalizes understanding and agrees with treatment plan. 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 Hypertension Irritable bowel syndrome Migraine without aura Obesity, unspecified Other forms of migraine ST elevation myocardial infarction involving right coronary artery (HCC) 06/28/2020 Tobacco use disorder PAST SURGICAL HISTORY Procedure Laterality Date CHOLECYSTECTOMY Cholecystectomy COLONOSCOPY FLX DX W/COLLJ SPEC WHEN PFRMD 11/20/2012 Colonoscopy F TOTAL ABDOMINAL HYSTERECTOMY 05/2013 INCISE FINGER TENDON SHEATH Right 07/21/2021 Right ring trigger finger release INCISE FINGER TENDON SHEATH Left 02/26/2023 Left ring trigger finger release LAPAROSCOPIC APPENDECTOMY 02/17/2015 LIG/TRNSXJ FLP TUBE ABDL/VAG APPR UNI/BI 1982 Tubal ligation NEUROPLASTY &/TRANSPOS MEDIAN NRV CARPAL TUNNE 04/29/2004 Carpal tunnel decomp,left NEUROPLASTY &/TRANSPOS MEDIAN NRV CARPAL TUNNE 05/17/2004 Carpal tunnel decomp, right NOVASURE PAST SURGICAL HISTORY OF cardiac stents FAMILY HISTORY Problem Relation Age of Onset Blood Disease Mother Alzheimer's Disease Father other (lung cancer) Brother 3rd brother, small cell Diabetes Maternal Grandmother Cerebral Embolism Brother oldest brother, aneurysm Cancer Brother 2nd brother, some type of skin cancer Social History Tobacco Use Smoking status: Every Day Packs/day: 2.00 Years: 42.00 Additional pack years: 0.00 Total pack years: 84.00 Types: Cigarettes Smokeless tobacco: Never Tobacco comments: Down to 1PPD Vaping Use Vaping Use: Former Substance Use Topics Alcohol use: Yes Comment: Occasional glass of wine. A few per month Drug use: Yes Types: Marijuana Comment: every 2-3 days ALLERGIES: ALLERGIES Allergen Reactions Augmentin [Amoxicil* Diarrhea Tolerates plain penicillins such as amoxicillin Penicillins Hives Also GI upset. CURRENT OUTPATIENT MEDICATIONS: benzonatate (TESSALON PERLE) 100 mg capsule Take 2 capsules by mouth three times a day as needed for cough. Take 1-3 capsules by mouth every 6-8 hours as needed. furosemide (LASIX) 20 mg tablet Take 1-2 tablets by mouth once daily as needed. umeclidinium (INCRUSE ELLIPTA) 62.5 mcg/actuation inhaler Inhale 1 Puff as instructed once daily. losartan (COZAAR) 25 mg tablet Take 1 tablet by mouth once daily. naloxone 4 mg/actuation nasal spray (NARCAN) Use 1 spray in one nostril as needed for overdose. May repeat every 2 to 3 min in alternating nostrils until medical assistance is available albuterol (PROVENTIL) 2.5 mg /3 mL (0.083 %) nebulizer solution Use 3 mL via nebulizer every 6 hours as needed for wheezing/shortness of breath. 1 vial contains 3 ml. albuterol HFA (VENTOLIN HFA) 90 mcg/actuation inhaler Inhale 2 Puffs as instructed every 4 hours as needed for Wheezing/Shortness of Breath. Do not replace with ProAir. aluminum-magnesium hydroxide-simethicone 200-200-20 mg/5 mL suspension Take 15 mL by mouth every 6 hours as needed. diclofenac (VOLTAREN) 1 % topical gel Apply 2 g to affected area four times a day as needed (upper extremity joint(s)). fluticasone (FLONASE) 50 mcg/actuation nasal spray Use 2 Sprays in each nostril once daily. Rinse mouth after use fluticasone-salmeterol (ADVAIR DISKUS) 250-50 mcg/dose inhaler Inhale 1 Puff as instructed two times a day. RINSE AND GARGLE MOUTH WITH WATER AFTER EACH USE. hydroCHLOROthiazide 25 mg tablet Take 1 tablet by mouth once daily. ibuprofen (MOTRIN) 800 mg tablet Take 1 tablet by mouth every 8 hours as needed for pain. rosuvastatin (CRESTOR) 40 mg tablet Take 1 tablet by mouth once daily. simethicone, chewable (WY-ACID GAS RELIEF,SIMETHICON,) 80 mg chewable tablet Take 1 tablet by mouth every 6 hours as needed. traZODone (DESYREL) 50 mg tablet Take 1 tablet by mouth at bedtime as needed. verapamil ER (VERELAN) 120 mg 24 hr capsule Take 1 capsule by mouth once daily. esomeprazole (NEXIUM) 20 mg capsule Take 1 capsule by mouth daily before breakfast. 1/2 hr before meal. aspirin, enteric coated (ASPIRIN, ENTERIC COATED) 81 mg EC tablet Take 1 tablet by mouth once daily. nystatin (MYCOSTATIN) 100,000 unit/mL suspension Take 5 mL by mouth four times daily. 1tsp swish in mouth for several minutes, then swallow (or expectorate) 4 times daily until gone. promethazine (PHENERGAN) 25 mg tablet Take 1 tablet by mouth every 6 hours as needed for nausea/vomiting. blood sugar diagnostic (BLOOD GLUCOSE TEST) test strip Test blood sugar(s) 1 times daily. Dx: (R73.9) Hyperglycemia; (R73.03) Prediabetes Insulin: No multivitamin tablet Take 1 tablet by mouth once daily. potassium chloride (KLOR-CON) 20 mEq packet Take 20 mEq by mouth twice daily. (Patient taking differently: Take 20 mEq by mouth two times a day. Rotates 1 packets daily 1 packet BID) senna (SENOKOT) 8.6 mg tab Take 2 tablets by mouth twice daily. (Patient taking differently: Take 2 tablets by mouth two times a day as needed.) oxyCODONE-acetaminophen (PERCOCET) 7.5-325 mg tablet Take 1 tablet by mouth every 8 hours as needed for pain. rizatriptan (MAXALT) 10 mg tablet Take 10 mg by mouth as needed. May repeat in 2 hours if needed cyclobenzaprine (FLEXERIL) 10 mg tablet Take 10 mg by mouth twice daily as needed for Muscle Spasm. polyethylene glycol 3350 (MIRALAX) 17 gram/dose powder Take 17 g by mouth once daily. NOT NEEDING NOW Nebulizer NEBULIZER FOR HOME USE with supplies. DX: (J45.40) Moderate persistent asthma without complication (primary encounter diagnosis) varenicline (CHANTIX CONTINUING MONTH BOX) 1 mg tablet Take 1 tablet by mouth two times a day. REVIEW OF SYSTEMS: GENERAL: No fever, night sweats, weight loss or malaise. All other reviewed and negative other than HPI. PHYSICAL EXAMINATION: VITAL SIGNS: BP 100/66 Pulse 78 Temp (Src) 97.6 (Temporal) Wt 199 lb 8 oz (90.5kg) SpO2 97% LMP 11/04/2012 GENERAL APPEARANCE: Well appearing, in no acute distress, alert and oriented x3, well-hydrated, well nourished. LUNGS: CTA HEART: Reg I spent a total of 30 minutes on the date of the service which included preparing to see the patient, [id number] patient care, completing clinical documentation, obtaining and/or reviewing separately obtained history, performing a medically appropriate examination, counseling and educating the patient/family/caregiver, independently interpreting results (not separately reported), and communicating results to the patient/family/caregiver. Also review of images Electronically Signed: Sandoval Burgess MD April 15, 2024 documented in this encounter [facility] 04-14-2024 Telephone encounter Note Prescription Refill Information The patient has been identified by name and date of : Yes Caregiver verified no other encounters exist for this prescription request: Yes Caregiver confirmed with patient/requestor that no other refills are due, in the near future, with this provider at this time: Yes The last office visit in the department: 02/20/24 Does the patient have a future office visit with this provider/department: Yes 06/06/24 Requested Prescriptions Pending Prescriptions Disp Refills losartan (COZAAR) 25 mg tablet 90 tablet 3 Sig: Take 1 tablet by mouth once daily. Tawana Fernandez LPN April 14, 2024 11:23 AM [facility] 04-14-2024 Miscellaneous Notes Prescription Refill Information The patient has been identified by name and date of : Yes Caregiver verified no other encounters exist for this prescription request: Yes Caregiver confirmed with patient/requestor that no other refills are due, in the near future, with this provider at this time: Yes The last office visit in the department: 02/20/24 Does the patient have a future office visit with this provider/department: Yes 06/06/24 Requested Prescriptions Pending Prescriptions Disp Refills losartan (COZAAR) 25 mg tablet 90 tablet 3 Sig: Take 1 tablet by mouth once daily. Tawana Fernandez LPN April 14, 2024 11:23 AM documented in this encounter [facility] 04-14-2024 Telephone encounter Note Prescription Refill Information The patient has been identified by name and date of : Yes Caregiver verified no other encounters exist for this prescription request: Yes Caregiver confirmed with patient/requestor that no other refills are due, in the near future, with this provider at this time: Yes The last office visit in the department: 02/20/24 Does the patient have a future office visit with this provider/department: Yes 06/06/24 Requested Prescriptions Pending Prescriptions Disp Refills benzonatate (TESSALON PERLE) 100 mg capsule 90 capsule 2 Sig: Take 2 capsules by mouth three times a day as needed for cough. Take 1-3 capsules by mouth every 6-8 hours as needed. furosemide (LASIX) 20 mg tablet 60 tablet 1 Sig: Take 1-2 tablets by mouth once daily as needed. Tawana Fernandez LPN April 14, 2024 11:22 AM [facility] 04-14-2024 Miscellaneous Notes Prescription Refill Information The patient has been identified by name and date of : Yes Caregiver verified no other encounters exist for this prescription request: Yes Caregiver confirmed with patient/requestor that no other refills are due, in the near future, with this provider at this time: Yes The last office visit in the department: 02/20/24 Does the patient have a future office visit with this provider/department: Yes 06/06/24 Requested Prescriptions Pending Prescriptions Disp Refills benzonatate (TESSALON PERLE) 100 mg capsule 90 capsule 2 Sig: Take 2 capsules by mouth three times a day as needed for cough. Take 1-3 capsules by mouth every 6-8 hours as needed. furosemide (LASIX) 20 mg tablet 60 tablet 1 Sig: Take 1-2 tablets by mouth once daily as needed. Tawana Fernandez LPN April 14, 2024 11:22 AM documented in this encounter [facility] 04-14-2024 Telephone encounter Note VITO 06/20/23 Patient phones requesting refills as follows: Requested Prescriptions Pending Prescriptions Disp Refills umeclidinium (INCRUSE ELLIPTA) 62.5 mcg/actuation inhaler 1 Each 5 Sig: Inhale 1 Puff as instructed once daily. Please review and advise. Lauren Presley LPN [facility] 04-14-2024 Miscellaneous Notes VITO 06/20/23 Patient phones requesting refills as follows: Requested Prescriptions Pending Prescriptions Disp Refills umeclidinium (INCRUSE ELLIPTA) 62.5 mcg/actuation inhaler 1 Each 5 Sig: Inhale 1 Puff as instructed once daily. Please review and advise. Lauren Presley LPN documented in this encounter [facility] 03-10-2024 Telephone encounter Note Prescription Refill Information The patient has been identified by name and date of : Yes Caregiver verified no other encounters exist for this prescription request: Yes Caregiver confirmed with patient/requestor that no other refills are due, in the near future, with this provider at this time: Yes The last office visit in the department: 03/05/2024 Does the patient have a future office visit with this provider/department: Yes Requested Prescriptions Pending Prescriptions Disp Refills naloxone 4 mg/actuation nasal spray (NARCAN) Sig: Use 1 spray in one nostril as needed for overdose. May repeat every 2 to 3 min in alternating nostrils until medical assistance is available Hoa Gaines LPN March 10, 2024 11:03 AM [facility] 03-10-2024 Miscellaneous Notes Prescription Refill Information The patient has been identified by name and date of : Yes Caregiver verified no other encounters exist for this prescription request: Yes Caregiver confirmed with patient/requestor that no other refills are due, in the near future, with this provider at this time: Yes The last office visit in the department: 03/05/2024 Does the patient have a future office visit with this provider/department: Yes Requested Prescriptions Pending Prescriptions Disp Refills naloxone 4 mg/actuation nasal spray (NARCAN) Sig: Use 1 spray in one nostril as needed for overdose. May repeat every 2 to 3 min in alternating nostrils until medical assistance is available Hoa Gaines LPN March 10, 2024 11:03 AM documented in this encounter [facility] 03-06-2024 History of Present illness Narrative RECIST TUMOR MEASUREMENTS IRB #: [id number] / [id number] Image Modality: PET Image Date: 02/18/2024 Date of Baseline Scan: 09/16/2020 Date of Comparison Scan: 11/12/2023 Research Nurse: Liza Canas Follow-Up Measurement Lesion A right lower lobe nodule, Lesion B lymph node,right hilar Sum Date Size (3m) Series/Image # Size (mm) Series/Image # Baseline: 09/16/2020 3.0 > 30 mm Series 9, Image 77 22 mm Series 7, Image 75 52 06/22/2021 16 mm Series 6 Image 78 No longer Visible 16 08/26/2021 14 mm Series 9 Image 79 No longer Visible 14 11/18/2021 14 mm Series 6, Image 76 No longer Visible 14 02/10/2022 16 mm Series 9, Image 82 No longer Visible 16 05/05/2022 14 mm Series 6, Image 83 No longer Visible 14 08/10/2022 14 mm Series 9, Image 81 No longer Visible 14 11/13/2022 1.3 - 13 mm Series 9, Image 78 No longer Visible 13 mm 02/10/2023 1.3 - 13 mm Series 9, Image 86 No longer Visible 13 mm 05/11/2023 1.2 - 12 mm Series 9, Image 75 No longer Visible 12mm 08/10/2023 1.2 - 12 mm Series 8, Image 72 No longer Visible 12 mm 11/12/2023 1.3 - 13 mm Series 3, Image 96 No longer Visible 13 mm 02/18/2024 1.3 - 13 mm Series 3, Image 101 No longer Visible 13 mm List Non-Target Lesion Site: Yes * Lung nodule (<10 mm); 3 mm right upper lobe laterally, (Series 3, Image 89), stable in size * Lung nodule (<10 mm); 0.9 cm right lower lobe nodule with resolved FDG uptake, (Series 3, Image 138), previously 1.2 cm * Lymph node (<15 mm short axis); 0.7 cm prevascular node with new FDG uptake, (Series 3, Image 86), previously 0.5 cm * Lymph node (<15 mm short axis); 1.0 cm subcarinal node with new FDG uptake, (Series 3, Image 105), previously 0.7 cm Appearance of New Lesion: No Sum of Lesions: 1.3 cm - 13 mm Baseline: 5.2 cm - 52 mm Nacho: 1.2 cm -12 mm Response: Stable Disease Measurements have been reviewed, discussed, and approved by MD Liza Sanchez RN March 06, 2024 documented in this encounter [facility] 03-05-2024 History of Present illness Narrative (Elements copied from my note dated ,January 23, 2024 have been reviewed and updated where appropriate, and all reflect current assessment and medical decision making from today's encounter, March 05, 2024) HISTORY OF PRESENT ILLNESS: Lata Smith is a 63 year old female who presented with worsening shortness of breath and hemoptysis for several months. Patient was seen in primary care clinic in May was treated with antibiotic without improvement. She was seen by Dr. Castillo and a CT chest revealed a lung mass and mediastinal adenopathy. She had no fever Chills, rigor, pleuritic chest pain, chest trauma. She has stable exertional dyspnea with activities of daily living, and exertional wheezing. She also complained of severe right hip pain along with pressure on her right side of her chest for couple months. Her staging PET scan on 08/03/2020 unfortunately showed metastatic disease. She had bronchoscopy and EBUS biopsy of the mediastinal lymph node on 08/19/2020. Biopsy was consistent with non-small cell, favoring adenocarcinoma the lung. She is here today to discuss treatment option for metastatic lung cancer. Patient is lives with an adult son. She is quit smoking since October after her heart attack. She denied any any weight loss since her heart attack. She has no hoarseness or dysphagia. No headaches or neurological symptoms. She has severe right hip pain secondary to metastatic disease. MRI scan of brain shows no evidence of metastatic disease. She completed palliative radiation therapy to her right hip. Current therapy: 1) Pembrolizumab. 2) Zometa done, completed 3 years in November 2023 I ran her case by med onc and rad onc at [facility], their review suggests stability of disease, they recommend observation, possible SBRT to lung if we see further growth of right lung nodule. Here for follow up, reviewed PET scan from 02-18-24, overall improvement, new thoracic LN bears observation. 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 Pembrolizumab as planned 2. Repeat PET scan in May 2024 Written and verbal health teaching given to patient, patient verbalizes understanding and agrees with treatment plan. 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 Hypertension Irritable bowel syndrome Migraine without aura Obesity, unspecified Other forms of migraine ST elevation myocardial infarction involving right coronary artery (HCC) 06/28/2020 Tobacco use disorder PAST SURGICAL HISTORY Procedure Laterality Date CHOLECYSTECTOMY Cholecystectomy COLONOSCOPY FLX DX W/COLLJ SPEC WHEN PFRMD 11/20/2012 Colonoscopy F TOTAL ABDOMINAL HYSTERECTOMY 05/2013 INCISE FINGER TENDON SHEATH Right 07/21/2021 Right ring trigger finger release INCISE FINGER TENDON SHEATH Left 02/26/2023 Left ring trigger finger release LAPAROSCOPIC APPENDECTOMY 02/17/2015 LIG/TRNSXJ FLP TUBE ABDL/VAG APPR UNI/BI 1982 Tubal ligation NEUROPLASTY &/TRANSPOS MEDIAN NRV CARPAL TUNNE 04/29/2004 Carpal tunnel decomp,left NEUROPLASTY &/TRANSPOS MEDIAN NRV CARPAL TUNNE 05/17/2004 Carpal tunnel decomp, right NOVASURE PAST SURGICAL HISTORY OF cardiac stents FAMILY HISTORY Problem Relation Age of Onset Blood Disease Mother Alzheimer's Disease Father other (lung cancer) Brother 3rd brother, small cell Diabetes Maternal Grandmother Cerebral Embolism Brother oldest brother, aneurysm Cancer Brother 2nd brother, some type of skin cancer Social History Tobacco Use Smoking status: Every Day Packs/day: 2.00 Years: 42.00 Additional pack years: 0.00 Total pack years: 84.00 Types: Cigarettes Smokeless tobacco: Never Tobacco comments: Down to 1PPD Vaping Use Vaping Use: Former Substance Use Topics Alcohol use: Yes Comment: Occasional glass of wine. A few per month Drug use: Yes Types: Marijuana Comment: every 2-3 days ALLERGIES: ALLERGIES Allergen Reactions Augmentin [Amoxicil* Diarrhea Tolerates plain penicillins such as amoxicillin Penicillins Hives Also GI upset. CURRENT OUTPATIENT MEDICATIONS: albuterol (PROVENTIL) 2.5 mg /3 mL (0.083 %) nebulizer solution Use 3 mL via nebulizer every 6 hours as needed for wheezing/shortness of breath. 1 vial contains 3 ml. albuterol HFA (VENTOLIN HFA) 90 mcg/actuation inhaler Inhale 2 Puffs as instructed every 4 hours as needed for Wheezing/Shortness of Breath. Do not replace with ProAir. aluminum-magnesium hydroxide-simethicone 200-200-20 mg/5 mL suspension Take 15 mL by mouth every 6 hours as needed. diclofenac (VOLTAREN) 1 % topical gel Apply 2 g to affected area four times a day as needed (upper extremity joint(s)). fluticasone (FLONASE) 50 mcg/actuation nasal spray Use 2 Sprays in each nostril once daily. Rinse mouth after use fluticasone-salmeterol (ADVAIR DISKUS) 250-50 mcg/dose inhaler Inhale 1 Puff as instructed two times a day. RINSE AND GARGLE MOUTH WITH WATER AFTER EACH USE. hydroCHLOROthiazide 25 mg tablet Take 1 tablet by mouth once daily. ibuprofen (MOTRIN) 800 mg tablet Take 1 tablet by mouth every 8 hours as needed for pain. rosuvastatin (CRESTOR) 40 mg tablet Take 1 tablet by mouth once daily. simethicone, chewable (WY-ACID GAS RELIEF,SIMETHICON,) 80 mg chewable tablet Take 1 tablet by mouth every 6 hours as needed. traZODone (DESYREL) 50 mg tablet Take 1 tablet by mouth at bedtime as needed. verapamil ER (VERELAN) 120 mg 24 hr capsule Take 1 capsule by mouth once daily. esomeprazole (NEXIUM) 20 mg capsule Take 1 capsule by mouth daily before breakfast. 1/2 hr before meal. benzonatate (TESSALON PERLE) 100 mg capsule Take 2 capsules by mouth three times a day as needed for cough. Take 1-3 capsules by mouth every 6-8 hours as needed. aspirin, enteric coated (ASPIRIN, ENTERIC COATED) 81 mg EC tablet Take 1 tablet by mouth once daily. furosemide (LASIX) 20 mg tablet Take 1-2 tablets by mouth once daily as needed. nystatin (MYCOSTATIN) 100,000 unit/mL suspension Take 5 mL by mouth four times daily. 1tsp swish in mouth for several minutes, then swallow (or expectorate) 4 times daily until gone. promethazine (PHENERGAN) 25 mg tablet Take 1 tablet by mouth every 6 hours as needed for nausea/vomiting. umeclidinium (INCRUSE ELLIPTA) 62.5 mcg/actuation inhaler Inhale 1 Puff as instructed once daily. blood sugar diagnostic (BLOOD GLUCOSE TEST) test strip Test blood sugar(s) 1 times daily. Dx: (R73.9) Hyperglycemia; (R73.03) Prediabetes Insulin: No losartan (COZAAR) 25 mg tablet Take 1 tablet by mouth once daily. multivitamin tablet Take 1 tablet by mouth once daily. senna (SENOKOT) 8.6 mg tab Take 2 tablets by mouth twice daily. (Patient taking differently: Take 2 tablets by mouth two times a day as needed.) oxyCODONE-acetaminophen (PERCOCET) 7.5-325 mg tablet Take 1 tablet by mouth every 8 hours as needed for pain. naloxone 4 mg/actuation nasal spray (NARCAN) Use 1 spray in one nostril as needed for overdose. May repeat every 2 to 3 min in alternating nostrils until medical assistance is available rizatriptan (MAXALT) 10 mg tablet Take 10 mg by mouth as needed. May repeat in 2 hours if needed cyclobenzaprine (FLEXERIL) 10 mg tablet Take 10 mg by mouth twice daily as needed for Muscle Spasm. polyethylene glycol 3350 (MIRALAX) 17 gram/dose powder Take 17 g by mouth once daily. NOT NEEDING NOW Nebulizer NEBULIZER FOR HOME USE with supplies. DX: (J45.40) Moderate persistent asthma without complication (primary encounter diagnosis) varenicline (CHANTIX CONTINUING MONTH BOX) 1 mg tablet Take 1 tablet by mouth two times a day. potassium chloride (KLOR-CON) 20 mEq packet Take 20 mEq by mouth twice daily. (Patient taking differently: Take 20 mEq by mouth two times a day. Rotates 1 packets daily 1 packet BID) REVIEW OF SYSTEMS: GENERAL: No fever, night sweats, weight loss or malaise. All other reviewed and negative other than HPI. PHYSICAL EXAMINATION: VITAL SIGNS: BP 102/58 Pulse 69 Temp (Src) 98.4 (Temporal) Wt 199 lb 8 oz (90.5kg) SpO2 96% LMP 11/04/2012 GENERAL APPEARANCE: Well appearing, in no acute distress, alert and oriented x3, well-hydrated, well nourished. LUNGS: CTA HEART: Reg I spent a total of 30 minutes on the date of the service which included preparing to see the patient, [id number] patient care, completing clinical documentation, obtaining and/or reviewing separately obtained history, performing a medically appropriate examination, counseling and educating the patient/family/caregiver, independently interpreting results (not separately reported), and communicating results to the patient/family/caregiver. Also review of images Electronically Signed: Sandoval Burgess MD March 05, 2024 documented in this encounter [facility] 02-20-2024 History of Present illness Narrative This note was created using Zairgeriter. Subjective Lata Smith is a 63 year old female. Patient presents with: F/U 3 Month SUBJECTIVE: Lata Smith is a 63 year old year old lady here today for 3 month follow up appointment for review of medical conditions. Stable on current meds. Reflux more than twice a week. Liquid antacid not adequate. 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 Do not replace with ProAir. benzonatate (TESSALON PERLE) 100 mg capsule Take 2 capsules by mouth three times a day as needed for cough. Take 1-3 capsules by mouth every 6-8 hours as needed. aspirin, enteric coated (ASPIRIN, ENTERIC COATED) 81 mg EC tablet Take 1 tablet by mouth once daily. furosemide (LASIX) 20 mg tablet Take 1-2 tablets by mouth once daily as needed. nystatin (MYCOSTATIN) 100,000 unit/mL suspension Take 5 mL by mouth four times daily. 1tsp swish in mouth for several minutes, then swallow (or expectorate) 4 times daily until gone. promethazine (PHENERGAN) 25 mg tablet Take 1 tablet by mouth every 6 hours as needed for nausea/vomiting. hydroCHLOROthiazide 25 mg tablet Take 1 tablet by mouth once daily as needed (fluid retention/leg swelling). umeclidinium (INCRUSE ELLIPTA) 62.5 mcg/actuation inhaler Inhale 1 Puff as instructed once daily. fluticasone-salmeterol (ADVAIR DISKUS) 250-50 mcg/dose inhaler Inhale 1 Puff as instructed two times a day. RINSE AND GARGLE MOUTH WITH WATER AFTER EACH USE. blood sugar diagnostic (BLOOD GLUCOSE TEST) test strip Test blood sugar(s) 1 times daily. Dx: (R73.9) Hyperglycemia; (R73.03) Prediabetes Insulin: No verapamil ER (VERELAN) 120 mg 24 hr capsule Take 1 capsule by mouth once daily. losartan (COZAAR) 25 mg tablet Take 1 tablet by mouth once daily. multivitamin tablet Take 1 tablet by mouth once daily. rosuvastatin (CRESTOR) 40 mg tablet Take 1 tablet by mouth once daily. traZODone (DESYREL) 50 mg tablet Take 1 tablet by mouth at bedtime as needed. potassium chloride (KLOR-CON) 20 mEq packet Take 20 mEq by mouth twice daily. (Patient taking differently: Take 20 mEq by mouth two times a day. Rotates 1 packets daily 1 packet BID) fluticasone (FLONASE) 50 mcg/actuation nasal spray Use 2 Sprays in each nostril once daily. Rinse mouth after use albuterol (PROVENTIL) 2.5 mg /3 mL (0.083 %) nebulizer solution Use 3 mL via nebulizer every 6 hours as needed for wheezing/shortness of breath. 1 vial contains 3 ml. diclofenac (VOLTAREN) 1 % topical gel Apply 2 g to affected area four times daily as needed (upper extremity joint(s)). aluminum-magnesium hydroxide-simethicone (MAALOX,MYLANTA,MAG-AL PLUS) 200-200-20 mg/5 mL suspension Take 15 mL by mouth every 6 hours as needed. senna (SENOKOT) 8.6 mg tab Take 2 tablets by mouth twice daily. (Patient taking differently: Take 2 tablets by mouth two times a day as needed.) ibuprofen (MOTRIN) 800 mg tablet Take 1 tablet by mouth every 8 hours as needed for Pain. (not for migraines and not in same day as naprosyn) Take with food. oxyCODONE-acetaminophen (PERCOCET) 7.5-325 mg tablet Take 1 tablet by mouth every 8 hours as needed for pain. naloxone 4 mg/actuation nasal spray (NARCAN) Use 1 spray in one nostril as needed for overdose. May repeat every 2 to 3 min in alternating nostrils until medical assistance is available rizatriptan (MAXALT) 10 mg tablet Take 10 mg by mouth as needed. May repeat in 2 hours if needed cyclobenzaprine (FLEXERIL) 10 mg tablet Take 10 mg by mouth twice daily as needed for Muscle Spasm. simethicone, chewable (WY-ACID GAS RELIEF) 80 mg chewable tablet Take 1 tablet by mouth every 6 hours as needed. polyethylene glycol 3350 (MIRALAX) 17 gram/dose powder Take 17 g by mouth once daily. NOT NEEDING NOW Nebulizer NEBULIZER FOR HOME USE with supplies. DX: (J45.40) Moderate persistent asthma without complication (primary encounter diagnosis) docusate sodium (COLACE) 100 mg capsule Take 1 capsule by mouth once daily as needed. varenicline (CHANTIX CONTINUING MONTH BOX) 1 mg tablet Take 1 tablet by mouth two times a day. (Patient not taking: Reported on 02/20/2024) No current facility-administered medications for this visit. Review of Systems Objective BP 110/62 Pulse 74 Temp 36.3 C (97.3 F) Resp 18 Wt 90.7 kg (200 lb) LMP 11/04/2012 SpO2 96% BMI 39.06 kg/m Physical Exam Constitutional: Appearance: Normal appearance. HENT: Head: Normocephalic. Eyes: Conjunctiva/sclera: Conjunctivae normal. Cardiovascular: Rate and Rhythm: Normal rate and regular rhythm. Heart sounds: Normal heart sounds. Pulmonary: Effort: Pulmonary effort is normal. Breath sounds: Normal breath sounds. Musculoskeletal: Right lower leg: No edema. Left lower leg: No edema. Skin: General: Skin is warm and dry. Neurological: General: No focal deficit present. Mental Status: She is alert and oriented to person, place, and time. Psychiatric: Mood and Affect: Mood normal. Behavior: Behavior normal. Thought Content: Thought content normal. Judgment: Judgment normal. Assessment and Plan Encounter Diagnosis ICD-10-CM 1. Stage 3 severe COPD by GOLD classification ([facility]) J44.9 fluticasone-salmeterol (ADVAIR DISKUS) 250-50 mcg/dose inhaler Stable on current meds. Will follow up with pulmonary med 2. Right hip pain M25.551 diclofenac (VOLTAREN) 1 % topical gel Doing okay with pain management 3. Coronary artery disease involving cheesh-na coronary artery of cheesh-na heart without angina pectoris I25.10 rosuvastatin (CRESTOR) 40 mg tablet Stable on current meds 4. Irritable bowel syndrome with both constipation and diarrhea K58.2 simethicone, chewable (WY-ACID GAS RELIEF,SIMETHICON,) 80 mg chewable tablet more toward diarrhea 5. Fibromyalgia M79.7 traZODone (DESYREL) 50 mg tablet 6. Cigarette smoker F17.210 varenicline (CHANTIX CONTINUING MONTH BOX) 1 mg tablet Stress still main trigger 7. Cough R05.9 acetaminophen-codeine (TYLENOL-CODEINE #3) 300-30 mg per tablet Tylenol with codeine helps 8. COPD with exacerbation ([facility]) J44.1 albuterol (PROVENTIL) 2.5 mg /3 mL (0.083 %) nebulizer solution Above issues addressed with patient. Patient involved in shared decision making for management of medical issues. History and medications reviewed. Epic updated as needed Refills and/or prescriptions taken care of and meds adjusted as indicated after reviewed history, exam and labs. Health Maintenance reviewed. Updated record and/or ordered tests as recorded. Encouraged on efforts at healthy diet and regular exercise and adequate sleep. Fiona Durant MD documented in this encounter [facility] 02-18-2024 History of Present illness Narrative RADIOLOGY SERVICE PROGRESS NOTE SERVICE DATE: 02/18/2024 SERVICE TIME: 8:41 AM PATIENT IDENTITY VERIFICATION COMPLETED USING TWO (2) STANDARD IDENTIFIERS: Name and Date of confirmed by patient verbally FALL SCREENING: Has the patient had 2 falls in the last year or 1 fall with injury or currently using an Ambulatory Assistive Device (Walker, Cane, Wheelchair, Crutches, etc.)? No PATIENT GENDER DATA: .female ALLERGIES: NA MEDICATIONS REVIEWED: Not applicable PATIENT RELEVANT IMPLANT DATA REVIEWED: Not Applicable PATIENT PRESENTS WITH AN IMPLANTABLE OR ATTACHED SPAR FINISHER: No CREATININE: Creatinine Date Value Ref Range Status 01/23/2024 0.73 0.58 - 0.96 mg/dL Final 12/12/2023 0.79 0.58 - 0.96 mg/dL Final 10/31/2023 0.83 0.58 - 0.96 mg/dL Final Estimated Glomerular Filtration Rate Date Value Ref Range Status 01/23/2024 93 >=60 mL/min/1.73m Final Comment: Estimated Glomerular Filtration Rate (eGFR) is calculated using the 2020 CKD-EPI creatinine equation. This equation utilizes serum creatinine, sex, and age as parameters. The creatinine assay has traceable calibration to isotope dilution-mass spectrometry. Refer to KDIGO guidelines for clinical interpretation. In patients with unstable renal function, e.g. those with acute kidney injury, the eGFR may not accurately reflect actual GFR. eGFR- Date Value Ref Range Status 11/22/2021 >60 Final P.O.C.T. RESULTS: N/A February 18, [address] PERFORMED: No IV SITE: Ambulatory: NM only - direct IV injection in the Right antecubital site POST EXAM PIV STATUS: Discontinued PROCEDURE TYPE: NM INJECT: PET/CT BODY SCAN. 14.1 mCi F18 FDG. No other medications given.. ADMINISTRATION TIME: 0835 PATIENT DISCHARGED TO: Ambulatory patient, left NM department area. A Diagnostic radioactive procedure has taken place, with no further precautions necessary other than routine body substance precautions. More information regarding radiation safety can be found using this link: [email or web address] SIGNATURE: RT Ashly(Kyree) PATIENT NAME: Lata Smith DATE: February 18, 2024 TIME: 8:41 AM PAGER/CONTACT #: documented in this encounter [facility] 01-30-2024 History of Present illness Narrative [facility] #: [id number] TUMOR METRICS: RECIST 1.1 Follow-Up Measurement Research Nurse/CRC Contact Information: Liza Canas Date of Baseline Scan: 09/16/2020 Date of Comparison Scan: 02/11/2024 Please see Abstract in EPIC Dated: 12/20/2023 documented in this encounter [facility] 01-24-2024 History of Present illness Narrative Assessment unchanged from 01/24/[address] Burgess documented in this encounter [facility] 01-24-2024 Miscellaneous Notes Called patient and scheduled for 02/10. Misti Terrell Waiting for PET CT orders to be signed. Misti Terrell documented in this encounter [facility] 01-23-2024 History of Present illness Narrative (Elements copied from my note dated December 12, 2023, have been reviewed and updated where appropriate, and all reflect current assessment and medical decision making from today's encounter, January 23, 2024) HISTORY OF PRESENT ILLNESS: Lata Smith is a 63 year old female who presented with worsening shortness of breath and hemoptysis for several months. Patient was seen in primary care clinic in May was treated with antibiotic without improvement. She was seen by Dr. Castillo and a CT chest revealed a lung mass and mediastinal adenopathy. She had no fever Chills, rigor, pleuritic chest pain, chest trauma. She has stable exertional dyspnea with activities of daily living, and exertional wheezing. She also complained of severe right hip pain along with pressure on her right side of her chest for couple months. Her staging PET scan on 08/03/2020 unfortunately showed metastatic disease. She had bronchoscopy and EBUS biopsy of the mediastinal lymph node on 08/19/2020. Biopsy was consistent with non-small cell, favoring adenocarcinoma the lung. She is here today to discuss treatment option for metastatic lung cancer. Patient is lives with an adult son. She is quit smoking since October after her heart attack. She denied any any weight loss since her heart attack. She has no hoarseness or dysphagia. No headaches or neurological symptoms. She has severe right hip pain secondary to metastatic disease. MRI scan of brain shows no evidence of metastatic disease. She completed palliative radiation therapy to her right hip. Current therapy: 1) Pembrolizumab. 2) Zometa done, completed 3 years in November 2023 Here for follow up, feels well, we reviewed that i ran her case by med onc and rad onc at [facility], their review suggests stability of disease, they recommend observation, possible SBRT to lung if we see further growth of right lung nodule. 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 Pembrolizumab as planned 2. Repeat PET scan in 1 months Written and verbal health teaching given to patient, patient verbalizes understanding and agrees with treatment plan. 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 Hypertension Irritable bowel syndrome Migraine without aura Obesity, unspecified Other forms of migraine ST elevation myocardial infarction involving right coronary artery (HCC) 06/28/2020 Tobacco use disorder PAST SURGICAL HISTORY Procedure Laterality Date CHOLECYSTECTOMY Cholecystectomy COLONOSCOPY FLX DX W/COLLJ SPEC WHEN PFRMD 11/20/2012 Colonoscopy F TOTAL ABDOMINAL HYSTERECTOMY 05/2013 INCISE FINGER TENDON SHEATH Right 07/21/2021 Right ring trigger finger release INCISE FINGER TENDON SHEATH Left 02/26/2023 Left ring trigger finger release LAPAROSCOPIC APPENDECTOMY 02/17/2015 LIG/TRNSXJ FLP TUBE ABDL/VAG APPR UNI/BI 1982 Tubal ligation NEUROPLASTY &/TRANSPOS MEDIAN NRV CARPAL TUNNE 04/29/2004 Carpal tunnel decomp,left NEUROPLASTY &/TRANSPOS MEDIAN NRV CARPAL TUNNE 05/17/2004 Carpal tunnel decomp, right NOVASURE PAST SURGICAL HISTORY OF cardiac stents FAMILY HISTORY Problem Relation Age of Onset Blood Disease Mother Alzheimer's Disease Father other (lung cancer) Brother 3rd brother, small cell Diabetes Maternal Grandmother Cerebral Embolism Brother oldest brother, aneurysm Cancer Brother 2nd brother, some type of skin cancer Social History Tobacco Use Smoking status: Every Day Packs/day: 2.00 Years: 42.00 Additional pack years: 0.00 Total pack years: 84.00 Types: Cigarettes Smokeless tobacco: Never Tobacco comments: Down to 1PPD Vaping Use Vaping Use: Former Substance Use Topics Alcohol use: Yes Comment: Occasional glass of wine. A few per month Drug use: Yes Types: Marijuana Comment: every 2-3 days ALLERGIES: ALLERGIES Allergen Reactions Augmentin [Amoxicil* Diarrhea Tolerates plain penicillins such as amoxicillin Penicillins Hives Also GI upset. CURRENT OUTPATIENT MEDICATIONS: albuterol HFA (VENTOLIN HFA) 90 mcg/actuation inhaler Inhale 2 Puffs as instructed every 4 hours as needed for Wheezing/Shortness of Breath. Do not replace with ProAir. benzonatate (TESSALON PERLE) 100 mg capsule Take 2 capsules by mouth three times a day as needed for cough. Take 1-3 capsules by mouth every 6-8 hours as needed. aspirin, enteric coated (ASPIRIN, ENTERIC COATED) 81 mg EC tablet Take 1 tablet by mouth once daily. furosemide (LASIX) 20 mg tablet Take 1-2 tablets by mouth once daily as needed. nystatin (MYCOSTATIN) 100,000 unit/mL suspension Take 5 mL by mouth four times daily. 1tsp swish in mouth for several minutes, then swallow (or expectorate) 4 times daily until gone. promethazine (PHENERGAN) 25 mg tablet Take 1 tablet by mouth every 6 hours as needed for nausea/vomiting. hydroCHLOROthiazide 25 mg tablet Take 1 tablet by mouth once daily as needed (fluid retention/leg swelling). umeclidinium (INCRUSE ELLIPTA) 62.5 mcg/actuation inhaler Inhale 1 Puff as instructed once daily. fluticasone-salmeterol (ADVAIR DISKUS) 250-50 mcg/dose inhaler Inhale 1 Puff as instructed two times a day. RINSE AND GARGLE MOUTH WITH WATER AFTER EACH USE. blood sugar diagnostic (BLOOD GLUCOSE TEST) test strip Test blood sugar(s) 1 times daily. Dx: (R73.9) Hyperglycemia; (R73.03) Prediabetes Insulin: No verapamil ER (VERELAN) 120 mg 24 hr capsule Take 1 capsule by mouth once daily. losartan (COZAAR) 25 mg tablet Take 1 tablet by mouth once daily. multivitamin tablet Take 1 tablet by mouth once daily. rosuvastatin (CRESTOR) 40 mg tablet Take 1 tablet by mouth once daily. traZODone (DESYREL) 50 mg tablet Take 1 tablet by mouth at bedtime as needed. potassium chloride (KLOR-CON) 20 mEq packet Take 20 mEq by mouth twice daily. (Patient taking differently: Take 20 mEq by mouth two times a day. Rotates 1 packets daily 1 packet BID) fluticasone (FLONASE) 50 mcg/actuation nasal spray Use 2 Sprays in each nostril once daily. Rinse mouth after use albuterol (PROVENTIL) 2.5 mg /3 mL (0.083 %) nebulizer solution Use 3 mL via nebulizer every 6 hours as needed for wheezing/shortness of breath. 1 vial contains 3 ml. diclofenac (VOLTAREN) 1 % topical gel Apply 2 g to affected area four times daily as needed (upper extremity joint(s)). aluminum-magnesium hydroxide-simethicone (MAALOX,MYLANTA,MAG-AL PLUS) 200-200-20 mg/5 mL suspension Take 15 mL by mouth every 6 hours as needed. senna (SENOKOT) 8.6 mg tab Take 2 tablets by mouth twice daily. ibuprofen (MOTRIN) 800 mg tablet Take 1 tablet by mouth every 8 hours as needed for Pain. (not for migraines and not in same day as naprosyn) Take with food. oxyCODONE-acetaminophen (PERCOCET) 7.5-325 mg tablet Take 1 tablet by mouth every 8 hours as needed for pain. naloxone 4 mg/actuation nasal spray (NARCAN) Use 1 spray in one nostril as needed for overdose. May repeat every 2 to 3 min in alternating nostrils until medical assistance is available rizatriptan (MAXALT) 10 mg tablet Take 10 mg by mouth as needed. May repeat in 2 hours if needed cyclobenzaprine (FLEXERIL) 10 mg tablet Take 10 mg by mouth twice daily as needed for Muscle Spasm. simethicone, chewable (WY-ACID GAS RELIEF) 80 mg chewable tablet Take 1 tablet by mouth every 6 hours as needed. polyethylene glycol 3350 (MIRALAX) 17 gram/dose powder Take 17 g by mouth once daily. NOT NEEDING NOW Nebulizer NEBULIZER FOR HOME USE with supplies. DX: (J45.40) Moderate persistent asthma without complication (primary encounter diagnosis) docusate sodium (COLACE) 100 mg capsule Take 1 capsule by mouth once daily as needed. varenicline (CHANTIX CONTINUING MONTH BOX) 1 mg tablet Take 1 tablet by mouth two times a day. REVIEW OF SYSTEMS: GENERAL: No fever, night sweats, weight loss or malaise. All other reviewed and negative other than HPI. PHYSICAL EXAMINATION: VITAL SIGNS: BP 97/45 Pulse 77 Temp (Src) 98.2 (Temporal) Wt 201 lb 8 oz (91.4kg) SpO2 96% LMP 11/04/2012 GENERAL APPEARANCE: Well appearing, in no acute distress, alert and oriented x3, well-hydrated, well nourished. LUNGS: CTA HEART: Reg I spent a total of 30 minutes on the date of the service which included preparing to see the patient, [id number] patient care, completing clinical documentation, obtaining and/or reviewing separately obtained history, performing a medically appropriate examination, counseling and educating the patient/family/caregiver, independently interpreting results (not separately reported), and communicating results to the patient/family/caregiver. Also review of images Electronically Signed: Sandoval Burgess MD January 23, 2024 documented in this encounter [facility] 12-21-2023 Miscellaneous Notes Noted Received call back from Michele at [facility]. Reports Palliative Care does not wish to treat pt's cough or manage the Tylenol #3. Reports they will continue to handle pt's Percocet for neoplasm pain at this time. Tiffany Rae RN Left detailed message with nurse at Palliative care. She will get this to Olga and they will let us know if they will start treating the cough. Tried several times to call number provided. Call cannot be completed as dialed. Tried with a 1 and without a 1. Was on hold for palliative care disconnected once and then waited on hold until as long as I could. Will try later. Below noted. Was aware. Patient Tylenol #3 just occasionally to take as needed for cough. She does not take it multiple times a day on a regular basis so not taking every 4 hours ever, so will not get too much tylenol and not add to Percocet she takes from Hospice. Would they prefer to treat the cough? Olga from [facility] states she checked an [facility] report on pt & sees that she is getting Tyl #3 from pcp - Rx on 08/15/23 & 11/28/23 both 42 tabs. Olga states pt is getting percocet 7.5-325 #180 almost every month. Wants pcp to be aware. Tyl #3 was prescribed for severe cough per chart. Faviola Marrero LPN documented in this encounter [facility] 12-20-2023 History of Present illness Narrative RECIST TUMOR MEASUREMENTS IRB #: [id number] / [id number] Image Modality: CT ABD/PEL W IVCON Image Date: 08/10/2023 Date of Baseline Scan: 09/16/2020 Date of Comparison Scan: 05/11/2023 Research Nurse: Liza Canas Follow-Up Measurement Lesion A right lower lobe nodule, Lesion B lymph node,right hilar Sum Date Size (3m) Series/Image # Size (mm) Series/Image # Baseline: 09/16/2020 3.0 > 30 mm Series 9, Image 77 22 mm Series 7, Image 75 52 06/22/2021 16 mm Series 6 Image 78 No longer Visible 16 08/26/2021 14 mm Series 9 Image 79 No longer Visible 14 11/18/2021 14 mm Series 6, Image 76 No longer Visible 14 02/10/2022 16 mm Series 9, Image 82 No longer Visible 16 05/05/2022 14 mm Series 6, Image 83 No longer Visible 14 08/10/2022 14 mm Series 9, Image 81 No longer Visible 14 11/13/2022 1.3 - 13 mm Series 9, Image 78 No longer Visible 13 mm 02/10/2023 1.3 - 13 mm Series 9, Image 86 No longer Visible 13 mm 05/11/2023 1.2 - 12 mm Series 9, Image 75 No longer Visible 12mm 08/10/2023 1.2 - 12 mm Series 8, Image 72 No longer Visible 12 mm 11/12/2023 1.3 - 13 mm Series 3, Image 96 No longer Visible 13 mm List Non-Target Lesion Site: potential lesion Appearance of New Lesion: yes * New Lesion 1 - Right lower lobe, 1.5 x 1.9 cm soft tissue lesion demonstrating FDG uptake, obstructing right lower lobe, bronchus for posterior and lateral basal segment bronchi, (Series 3, Image 124). Please note the lesion is new since 08/10/2023 exam. The finding is concerning for neoplasm in the light of high SUV. However, the rapid onset since 08/10/2023 exam raises possibility of infectious/inflammatory process as well. Attention on follow-up recommended. * New Lesion 2 - Right upper lobe, tiny 3 mm central nodule surrounded by prior noted peripheral groundglass opacities, (Series 3, Image 84), new since 08/10/2023 exam Addressed with Sandoval Burgess MD and discussed that the new lesion is pseudo progression and we will monitor in 3 months to determine. Sum of Lesions: 1.3 cm - 13 mm Baseline: 5.2 cm - 52 mm Nacho: 1.2 cm -12 mm Response: Stable Disease Measurements have been reviewed, discussed, and approved by MD Liza Sanchez RN December 20, 2023 documented in this encounter [facility] 12-12-2023 History of Present illness Narrative (Elements copied from my note dated November 16, 2023, have been reviewed and updated where appropriate, and all reflect current assessment and medical decision making from today's encounter, December 12, 2023) HISTORY OF PRESENT ILLNESS: Lata Smith is a 63 year old female who presented with worsening shortness of breath and hemoptysis for several months. Patient was seen in primary care clinic in May was treated with antibiotic without improvement. She was seen by Dr. Castillo and a CT chest revealed a lung mass and mediastinal adenopathy. She had no fever Chills, rigor, pleuritic chest pain, chest trauma. She has stable exertional dyspnea with activities of daily living, and exertional wheezing. She also complained of severe right hip pain along with pressure on her right side of her chest for couple months. Her staging PET scan on 08/03/2020 unfortunately showed metastatic disease. She had bronchoscopy and EBUS biopsy of the mediastinal lymph node on 08/19/2020. Biopsy was consistent with non-small cell, favoring adenocarcinoma the lung. She is here today to discuss treatment option for metastatic lung cancer. Patient is lives with an adult son. She is quit smoking since October after her heart attack. She denied any any weight loss since her heart attack. She has no hoarseness or dysphagia. No headaches or neurological symptoms. She has severe right hip pain secondary to metastatic disease. MRI scan of brain shows no evidence of metastatic disease. She completed palliative radiation therapy to her right hip. Current therapy: 1) Pembrolizumab. 2) Zometa. Here for follow up, feels well, we reviewed that i ran her case by med onc and rad onc at [facility], their review suggests stability of disease, they recommend observation, possible SBRT to lung if we see further growth of right lung nodule. 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 Pembrolizumab as planned 2. Repeat scan in 2 months Written and verbal health teaching given to patient, patient verbalizes understanding and agrees with treatment plan. 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 Hypertension Irritable bowel syndrome Migraine without aura Obesity, unspecified Other forms of migraine ST elevation myocardial infarction involving right coronary artery (HCC) 06/28/2020 Tobacco use disorder PAST SURGICAL HISTORY Procedure Laterality Date CHOLECYSTECTOMY Cholecystectomy COLONOSCOPY FLX DX W/COLLJ SPEC WHEN PFRMD 11/20/2012 Colonoscopy F TOTAL ABDOMINAL HYSTERECTOMY 05/2013 INCISE FINGER TENDON SHEATH Right 07/21/2021 Right ring trigger finger release INCISE FINGER TENDON SHEATH Left 02/26/2023 Left ring trigger finger release LAPAROSCOPIC APPENDECTOMY 02/17/2015 LIG/TRNSXJ FLP TUBE ABDL/VAG APPR UNI/BI 1982 Tubal ligation NEUROPLASTY &/TRANSPOS MEDIAN NRV CARPAL TUNNE 04/29/2004 Carpal tunnel decomp,left NEUROPLASTY &/TRANSPOS MEDIAN NRV CARPAL TUNNE 05/17/2004 Carpal tunnel decomp, right NOVASURE PAST SURGICAL HISTORY OF cardiac stents FAMILY HISTORY Problem Relation Age of Onset Blood Disease Mother Alzheimer's Disease Father other (lung cancer) Brother 3rd brother, small cell Diabetes Maternal Grandmother Cerebral Embolism Brother oldest brother, aneurysm Cancer Brother 2nd brother, some type of skin cancer Social History Tobacco Use Smoking status: Every Day Packs/day: 1.00 Years: 40.00 Additional pack years: 0.00 Total pack years: 40.00 Types: Cigarettes Smokeless tobacco: Never Tobacco comments: Down to 1PPD still; stress --still 1PPD (November 28, 2023) Vaping Use Vaping Use: Former Substance Use Topics Alcohol use: Yes Comment: Occasional glass of wine. A few per month Drug use: Yes Types: Marijuana Comment: every 2-3 days ALLERGIES: ALLERGIES Allergen Reactions Augmentin [Amoxicil* Diarrhea Tolerates plain penicillins such as amoxicillin Penicillins Hives Also GI upset. CURRENT OUTPATIENT MEDICATIONS: albuterol HFA (VENTOLIN HFA) 90 mcg/actuation inhaler Inhale 2 Puffs as instructed every 4 hours as needed for Wheezing/Shortness of Breath. Do not replace with ProAir. benzonatate (TESSALON PERLE) 100 mg capsule Take 2 capsules by mouth three times a day as needed for cough. Take 1-3 capsules by mouth every 6-8 hours as needed. aspirin, enteric coated (ASPIRIN, ENTERIC COATED) 81 mg EC tablet Take 1 tablet by mouth once daily. furosemide (LASIX) 20 mg tablet Take 1-2 tablets by mouth once daily as needed. nystatin (MYCOSTATIN) 100,000 unit/mL suspension Take 5 mL by mouth four times daily. 1tsp swish in mouth for several minutes, then swallow (or expectorate) 4 times daily until gone. promethazine (PHENERGAN) 25 mg tablet Take 1 tablet by mouth every 6 hours as needed for nausea/vomiting. varenicline (CHANTIX CONTINUING MONTH BOX) 1 mg tablet Take 1 tablet by mouth two times a day. hydroCHLOROthiazide 25 mg tablet Take 1 tablet by mouth once daily as needed (fluid retention/leg swelling). umeclidinium (INCRUSE ELLIPTA) 62.5 mcg/actuation inhaler Inhale 1 Puff as instructed once daily. fluticasone-salmeterol (ADVAIR DISKUS) 250-50 mcg/dose inhaler Inhale 1 Puff as instructed two times a day. RINSE AND GARGLE MOUTH WITH WATER AFTER EACH USE. verapamil ER (VERELAN) 120 mg 24 hr capsule Take 1 capsule by mouth once daily. losartan (COZAAR) 25 mg tablet Take 1 tablet by mouth once daily. multivitamin tablet Take 1 tablet by mouth once daily. rosuvastatin (CRESTOR) 40 mg tablet Take 1 tablet by mouth once daily. traZODone (DESYREL) 50 mg tablet Take 1 tablet by mouth at bedtime as needed. potassium chloride (KLOR-CON) 20 mEq packet Take 20 mEq by mouth twice daily. (Patient taking differently: Take 20 mEq by mouth two times a day. Rotates 1 packets daily 1 packet BID) fluticasone (FLONASE) 50 mcg/actuation nasal spray Use 2 Sprays in each nostril once daily. Rinse mouth after use diclofenac (VOLTAREN) 1 % topical gel Apply 2 g to affected area four times daily as needed (upper extremity joint(s)). aluminum-magnesium hydroxide-simethicone (MAALOX,MYLANTA,MAG-AL PLUS) 200-200-20 mg/5 mL suspension Take 15 mL by mouth every 6 hours as needed. senna (SENOKOT) 8.6 mg tab Take 2 tablets by mouth twice daily. ibuprofen (MOTRIN) 800 mg tablet Take 1 tablet by mouth every 8 hours as needed for Pain. (not for migraines and not in same day as naprosyn) Take with food. oxyCODONE-acetaminophen (PERCOCET) 7.5-325 mg tablet Take 1 tablet by mouth every 8 hours as needed for pain. rizatriptan (MAXALT) 10 mg tablet Take 10 mg by mouth as needed. May repeat in 2 hours if needed cyclobenzaprine (FLEXERIL) 10 mg tablet Take 10 mg by mouth twice daily as needed for Muscle Spasm. simethicone, chewable (WY-ACID GAS RELIEF) 80 mg chewable tablet Take 1 tablet by mouth every 6 hours as needed. polyethylene glycol 3350 (MIRALAX) 17 gram/dose powder Take 17 g by mouth once daily. NOT NEEDING NOW docusate sodium (COLACE) 100 mg capsule Take 1 capsule by mouth once daily as needed. blood sugar diagnostic (BLOOD GLUCOSE TEST) test strip Test blood sugar(s) 1 times daily. Dx: (R73.9) Hyperglycemia; (R73.03) Prediabetes Insulin: No albuterol (PROVENTIL) 2.5 mg /3 mL (0.083 %) nebulizer solution Use 3 mL via nebulizer every 6 hours as needed for wheezing/shortness of breath. 1 vial contains 3 ml. naloxone 4 mg/actuation nasal spray (NARCAN) Use 1 spray in one nostril as needed for overdose. May repeat every 2 to 3 min in alternating nostrils until medical assistance is available Nebulizer NEBULIZER FOR HOME USE with supplies. DX: (J45.40) Moderate persistent asthma without complication (primary encounter diagnosis) REVIEW OF SYSTEMS: GENERAL: No fever, night sweats, weight loss or malaise. All other reviewed and negative other than HPI. PHYSICAL EXAMINATION: VITAL SIGNS: BP 98/42 Pulse 82 Temp 97.8 Wt 208 lb 8 oz (94.6kg) SpO2 99% LMP 11/04/2012 GENERAL APPEARANCE: Well appearing, in no acute distress, alert and oriented x3, well-hydrated, well nourished. LUNGS: CTA HEART: Reg I spent a total of 30 minutes on the date of the service which included preparing to see the patient, [id number] patient care, completing clinical documentation, obtaining and/or reviewing separately obtained history, performing a medically appropriate examination, counseling and educating the patient/family/caregiver, independently interpreting results (not separately reported), and communicating results to the patient/family/caregiver. Also review of images Electronically Signed: Sandoval Burgess MD December 12, 2023 documented in this encounter [facility] 12-11-2023 History of Present illness Narrative [facility]/IRB #: [id number] TUMOR METRICS: RECIST 1.1 Follow-Up Measurement Research Nurse/CRC Contact Information: Liza Canas [phone] Date of Baseline Scan: 09/16/2020 Date of Comparison Scan: 08/10/[address] in PET dated 11/12/2023 Please see Abstract in EPIC Dated: 08/16/2023 documented in this encounter [facility] 11-28-2023 History of Present illness Narrative This note was created using [employer]. Subjective Lata Smith is a 63 year old female. Patient presents with: Recheck: 3 month follow up SUBJECTIVE: Lata Smith is a 63 year old year old lady here today for 3 month follow up appointment for review of medical conditions. Ongoing stress keeping her from quitting smoking. Discussed results of PET scan. Tyl#3 still helps for cough so can sleep. See assessment and plan for other issues addressed. 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 umeclidinium (INCRUSE ELLIPTA) 62.5 mcg/actuation inhaler Inhale 1 Puff as instructed once daily. fluticasone-salmeterol (ADVAIR DISKUS) 250-50 mcg/dose inhaler Inhale 1 Puff as instructed two times a day. RINSE AND GARGLE MOUTH WITH WATER AFTER EACH USE. blood sugar diagnostic (BLOOD GLUCOSE TEST) test strip Test blood sugar(s) 1 times daily. Dx: (R73.9) Hyperglycemia; (R73.03) Prediabetes Insulin: No nystatin (MYCOSTATIN) 100,000 unit/mL suspension Take 5 mL by mouth four times daily. 1tsp swish in mouth for several minutes, then swallow (or expectorate) 4 times daily until gone. furosemide (LASIX) 20 mg tablet Take 1-2 tablets by mouth once daily as needed. varenicline (CHANTIX CONTINUING MONTH BOX) 1 mg tablet Take 1 tablet by mouth twice daily. verapamil ER (VERELAN) 120 mg 24 hr capsule Take 1 capsule by mouth once daily. losartan (COZAAR) 25 mg tablet Take 1 tablet by mouth once daily. multivitamin tablet Take 1 tablet by mouth once daily. albuterol HFA (VENTOLIN HFA) 90 mcg/actuation inhaler Inhale 2 Puffs as instructed every 4 hours as needed for Wheezing/Shortness of Breath. Do not replace with ProAir. varenicline (CHANTIX CONTINUING MONTH BOX) 1 mg tablet Take 1 tablet by mouth twice daily. rosuvastatin (CRESTOR) 40 mg tablet Take 1 tablet by mouth once daily. traZODone (DESYREL) 50 mg tablet Take 1 tablet by mouth at bedtime as needed. potassium chloride (KLOR-CON) 20 mEq packet Take 20 mEq by mouth twice daily. (Patient taking differently: Take 20 mEq by mouth two times a day. Rotates 1 packets daily 1 packet BID) fluticasone (FLONASE) 50 mcg/actuation nasal spray Use 2 Sprays in each nostril once daily. Rinse mouth after use benzonatate (TESSALON PERLE) 100 mg capsule Take 2 capsules by mouth three times daily as needed for cough. Take 1-3 capsules by mouth every 6-8 hours as needed. albuterol (PROVENTIL) 2.5 mg /3 mL (0.083 %) nebulizer solution Use 3 mL via nebulizer every 6 hours as needed for wheezing/shortness of breath. 1 vial contains 3 ml. aspirin, enteric coated (ASPIRIN, ENTERIC COATED) 81 mg EC tablet Take 1 tablet by mouth once daily. diclofenac (VOLTAREN) 1 % topical gel Apply 2 g to affected area four times daily as needed (upper extremity joint(s)). aluminum-magnesium hydroxide-simethicone (MAALOX,MYLANTA,MAG-AL PLUS) 200-200-20 mg/5 mL suspension Take 15 mL by mouth every 6 hours as needed. senna (SENOKOT) 8.6 mg tab Take 2 tablets by mouth twice daily. promethazine (PHENERGAN) 25 mg tablet Take 1 tablet by mouth every 6 hours as needed for nausea/vomiting (Patient states she is using prior to Chantix dose for nausea). ibuprofen (MOTRIN) 800 mg tablet Take 1 tablet by mouth every 8 hours as needed for Pain. (not for migraines and not in same day as naprosyn) Take with food. oxyCODONE-acetaminophen (PERCOCET) 7.5-325 mg tablet Take 1 tablet by mouth every 8 hours as needed for pain. naloxone 4 mg/actuation nasal spray (NARCAN) Use 1 spray in one nostril as needed for overdose. May repeat every 2 to 3 min in alternating nostrils until medical assistance is available rizatriptan (MAXALT) 10 mg tablet Take 10 mg by mouth as needed. May repeat in 2 hours if needed cyclobenzaprine (FLEXERIL) 10 mg tablet Take 10 mg by mouth twice daily as needed for Muscle Spasm. simethicone, chewable (WY-ACID GAS RELIEF) 80 mg chewable tablet Take 1 tablet by mouth every 6 hours as needed. polyethylene glycol 3350 (MIRALAX) 17 gram/dose powder Take 17 g by mouth once daily. NOT NEEDING NOW Nebulizer NEBULIZER FOR HOME USE with supplies. DX: (J45.40) Moderate persistent asthma without complication (primary encounter diagnosis) docusate sodium (COLACE) 100 mg capsule Take 1 capsule by mouth once daily as needed. No current facility-administered medications for this visit. Review of Systems Objective BP (P) 108/60 (BP Site: Left Arm, BP Position: Sitting, BP Cuff Size: Large Adult) Pulse (P) 84 Wt (P) 93.9 kg (207 lb) LMP 11/04/2012 BMI (P) 40.43 kg/m Last 5 Encounter Wt Readings: Date: Wt: 11/16/2023 93.7 kg (206 lb 8 oz) 10/31/2023 96.4 kg (212 lb 8 oz) 09/19/2023 95.3 kg (210 lb) 08/15/2023 91.6 kg (202 lb) 08/07/2023 93.2 kg (205 lb 8 oz) No waist measurement recorded Estimated body mass index is 40.43 kg/m (pended) as calculated from the following: Height as of 05/22/23: 152.4 cm (5'). Weight as of this encounter: (P) 93.9 kg (207 lb). Last 5 Encounter BP Readings: Date: BP: 11/16/2023 115/69 11/01/2023 101/56 10/31/2023 111/51 09/19/2023 125/75 08/15/2023 120/68 Physical Exam Constitutional: Appearance: Normal appearance. HENT: Head: Normocephalic. Eyes: Conjunctiva/sclera: Conjunctivae normal. Cardiovascular: Rate and Rhythm: Normal rate and regular rhythm. Heart sounds: Normal heart sounds. Pulmonary: Effort: Pulmonary effort is normal. Breath sounds: Normal breath sounds. Musculoskeletal: Right lower leg: Edema (trace) present. Left lower leg: Edema (trace) present. Skin: General: Skin is warm and dry. Neurological: General: No focal deficit present. Mental Status: She is alert and oriented to person, place, and time. Psychiatric: Mood and Affect: Mood normal. Behavior: Behavior normal. Thought Content: Thought content normal. Judgment: Judgment normal. Component Latest Ref Rng & Units 08/07/2023 09/18/2023 10/31/2023 WBC 3.70 - 11.00 k/uL 8.21 9.36 8.74 RBC 3.90 - 5.20 m/uL 5.02 5.01 4.87 Hemoglobin 11.5 - 15.5 g/dL 13.7 13.7 13.3 Hematocrit 36.0 - 46.0 % 42.6 41.8 40.2 MCV 80.0 - 100.0 fL 84.9 83.4 82.5 MCH 26.0 - 34.0 pg 27.3 27.3 27.3 MCHC 30.5 - 36.0 g/dL 32.2 32.8 33.1 RDW-CV 11.5 - 15.0 % 15.6 (H) 16.5 (H) 16.2 (H) Platelet Count 150 - 400 k/uL 226 260 244 MPV 9.0 - 12.7 fL 10.7 10.1 9.9 Neut% % 74.8 73.9 72.4 Abs Neut (ANC) 1.45 - 7.50 k/uL 6.14 6.92 6.34 Lymph% % 14.5 16.5 16.7 Abs Lymph 1.00 - 4.00 k/uL 1.19 1.54 1.46 [place]% % 7.1 6.0 7.6 Abs [place] <0.87 k/uL 0.58 0.56 0.66 Eosin% % 2.4 2.5 2.2 Abs Eosin <0.46 k/uL 0.20 0.23 0.19 Baso% % 0.7 0.7 0.6 Abs Baso <0.11 k/uL 0.06 0.07 0.05 Immature Gran % % 0.5 0.4 0.5 IMMATURE GRANS (ABS) <0.10 k/uL 0.04 0.04 0.04 NRBC /100 WBC 0.0 0.0 0.0 Absolute nRBC <0.01 k/uL <0.01 <0.01 <0.01 DTYPE Auto Auto Auto Protein, Total 6.3 - 8.0 g/dL 6.9 7.2 7.2 Albumin 3.9 - 4.9 g/dL 3.9 3.9 3.9 Calcium 8.5 - 10.2 mg/dL 9.4 9.2 9.4 Bilirubin, Total 0.2 - 1.3 mg/dL 0.3 0.2 0.2 Alkaline Phosphatase 34 - 123 U/L 110 122 127 (H) AST 13 - 35 U/L 11 (L) 13 15 ALT 7 - 38 U/L 13 19 16 Glucose 74 - 99 mg/dL 113 (H) 132 (H) 94 BUN 7 - 21 mg/dL 11 17 11 Creatinine 0.58 - 0.96 mg/dL 0.73 0.79 0.83 Sodium 136 - 144 mmol/L 139 136 142 Potassium 3.7 - 5.1 mmol/L 3.9 3.7 3.8 Chloride 97 - 105 mmol/L 103 102 103 CO2 22 - 30 mmol/L 24 26 27 Anion Gap 9 - 18 mmol/L 12 8 (L) 12 eGFR >=60 mL/min/1.73m 94 85 80 TSH 0.270 - 4.200 mIU/L 1.570 1.800 1.860 Free T4 0.9 - 1.7 ng/dL 1.2 0.9 1.1 Cortisol 4.8 - 19.5 ug/dL 7.1 5.5 5.0 Assessment and Plan Encounter Diagnosis ICD-10-CM 1. Prediabetes R73.03 HGB A1C Continue efforts at healthier diet and stayin as active as able 2. COPD with exacerbation (HCC) J44.1 benzonatate (TESSALON PERLE) 100 mg capsule Continue present meds and cough med 3. Cigarette smoker F17.210 varenicline (CHANTIX CONTINUING MONTH BOX) 1 mg tablet Stress still main trigger 4. Cough R05.9 acetaminophen-codeine (TYLENOL-CODEINE #3) 300-30 mg per tablet Tylenol with codeine helps 5. Cancer of lower lobe of right lung (HCC) C34.31 promethazine (PHENERGAN) 25 mg tablet Continue present management with her oncologist 6. Examination of participant in clinical trial Z00.6 promethazine (PHENERGAN) 25 mg tablet Above issues addressed with patient. Patient involved in shared decision making for management of medical issues. History and medications reviewed. Epic updated as needed Refills and/or prescriptions taken care of and meds adjusted as indicated after reviewed history, exam and labs. Health Maintenance reviewed. Updated record and/or ordered tests as recorded. Encouraged on efforts at healthy diet and regular exercise and adequate sleep. Fiona Durant MD documented in this encounter [facility] 11-16-2023 History of Present illness Narrative (Elements copied from my note dated October 31, 2023, have been reviewed and updated where appropriate, and all reflect current assessment and medical decision making from today's encounter, November 16, 2023) HISTORY OF PRESENT ILLNESS: Lata Smith is a 63 year old female who presented with worsening shortness of breath and hemoptysis for several months. Patient was seen in primary care clinic in May was treated with antibiotic without improvement. She was seen by Dr. Castillo and a CT chest revealed a lung mass and mediastinal adenopathy. She had no fever Chills, rigor, pleuritic chest pain, chest trauma. She has stable exertional dyspnea with activities of daily living, and exertional wheezing. She also complained of severe right hip pain along with pressure on her right side of her chest for couple months. Her staging PET scan on 08/03/2020 unfortunately showed metastatic disease. She had bronchoscopy and EBUS biopsy of the mediastinal lymph node on 08/19/2020. Biopsy was consistent with non-small cell, favoring adenocarcinoma the lung. She is here today to discuss treatment option for metastatic lung cancer. Patient is lives with an adult son. She is quit smoking since October after her heart attack. She denied any any weight loss since her heart attack. She has no hoarseness or dysphagia. No headaches or neurological symptoms. She has severe right hip pain secondary to metastatic disease. MRI scan of brain shows no evidence of metastatic disease. She completed palliative radiation therapy to her right hip. Current therapy: 1) Pembrolizumab. 2) Zometa. 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 Pembrolizumab as planned 2. Will solicit opinion from main campus re next step, as overall pembrolizumab seems to be holding disease in check, but now with oligo progression. Emails sent Written and verbal health teaching given to patient, patient verbalizes understanding and agrees with treatment plan. 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 Hypertension Irritable bowel syndrome Migraine without aura Obesity, unspecified Other forms of migraine ST elevation myocardial infarction involving right coronary artery (HCC) 06/28/2020 Tobacco use disorder PAST SURGICAL HISTORY Procedure Laterality Date CHOLECYSTECTOMY Cholecystectomy COLONOSCOPY FLX DX W/COLLJ SPEC WHEN PFRMD 11/20/2012 Colonoscopy F TOTAL ABDOMINAL HYSTERECTOMY 05/2013 INCISE FINGER TENDON SHEATH Right 07/21/2021 Right ring trigger finger release INCISE FINGER TENDON SHEATH Left 02/26/2023 Left ring trigger finger release LAPAROSCOPIC APPENDECTOMY 02/17/2015 LIG/TRNSXJ FLP TUBE ABDL/VAG APPR UNI/BI 1982 Tubal ligation NEUROPLASTY &/TRANSPOS MEDIAN NRV CARPAL TUNNE 04/29/2004 Carpal tunnel decomp,left NEUROPLASTY &/TRANSPOS MEDIAN NRV CARPAL TUNNE 05/17/2004 Carpal tunnel decomp, right NOVASURE PAST SURGICAL HISTORY OF cardiac stents FAMILY HISTORY Problem Relation Age of Onset Blood Disease Mother Alzheimer's Disease Father other (lung cancer) Brother 3rd brother, small cell Diabetes Maternal Grandmother Cerebral Embolism Brother oldest brother, aneurysm Cancer Brother 2nd brother, some type of skin cancer Social History Tobacco Use Smoking status: Every Day Packs/day: 1.00 Years: 40.00 Additional pack years: 0.00 Total pack years: 40.00 Types: Cigarettes Smokeless tobacco: Never Tobacco comments: Down to 1PPD still; stress Vaping Use Vaping Use: Former Substance Use Topics Alcohol use: Yes Comment: Occasional glass of wine. A few per month Drug use: Yes Types: Marijuana Comment: every 2-3 days ALLERGIES: ALLERGIES Allergen Reactions Augmentin [Amoxicil* Diarrhea Tolerates plain penicillins such as amoxicillin Penicillins Hives Also GI upset. CURRENT OUTPATIENT MEDICATIONS: hydroCHLOROthiazide 25 mg tablet Take 1 tablet by mouth once daily as needed (fluid retention/leg swelling). umeclidinium (INCRUSE ELLIPTA) 62.5 mcg/actuation inhaler Inhale 1 Puff as instructed once daily. fluticasone-salmeterol (ADVAIR DISKUS) 250-50 mcg/dose inhaler Inhale 1 Puff as instructed two times a day. RINSE AND GARGLE MOUTH WITH WATER AFTER EACH USE. nystatin (MYCOSTATIN) 100,000 unit/mL suspension Take 5 mL by mouth four times daily. 1tsp swish in mouth for several minutes, then swallow (or expectorate) 4 times daily until gone. furosemide (LASIX) 20 mg tablet Take 1-2 tablets by mouth once daily as needed. verapamil ER (VERELAN) 120 mg 24 hr capsule Take 1 capsule by mouth once daily. losartan (COZAAR) 25 mg tablet Take 1 tablet by mouth once daily. multivitamin tablet Take 1 tablet by mouth once daily. albuterol HFA (VENTOLIN HFA) 90 mcg/actuation inhaler Inhale 2 Puffs as instructed every 4 hours as needed for Wheezing/Shortness of Breath. Do not replace with ProAir. rosuvastatin (CRESTOR) 40 mg tablet Take 1 tablet by mouth once daily. traZODone (DESYREL) 50 mg tablet Take 1 tablet by mouth at bedtime as needed. potassium chloride (KLOR-CON) 20 mEq packet Take 20 mEq by mouth twice daily. (Patient taking differently: Take 20 mEq by mouth two times a day. Rotates 1 packets daily 1 packet BID) fluticasone (FLONASE) 50 mcg/actuation nasal spray Use 2 Sprays in each nostril once daily. Rinse mouth after use benzonatate (TESSALON PERLE) 100 mg capsule Take 2 capsules by mouth three times daily as needed for cough. Take 1-3 capsules by mouth every 6-8 hours as needed. aspirin, enteric coated (ASPIRIN, ENTERIC COATED) 81 mg EC tablet Take 1 tablet by mouth once daily. diclofenac (VOLTAREN) 1 % topical gel Apply 2 g to affected area four times daily as needed (upper extremity joint(s)). aluminum-magnesium hydroxide-simethicone (MAALOX,MYLANTA,MAG-AL PLUS) 200-200-20 mg/5 mL suspension Take 15 mL by mouth every 6 hours as needed. senna (SENOKOT) 8.6 mg tab Take 2 tablets by mouth twice daily. promethazine (PHENERGAN) 25 mg tablet Take 1 tablet by mouth every 6 hours as needed for nausea/vomiting (Patient states she is using prior to Chantix dose for nausea). ibuprofen (MOTRIN) 800 mg tablet Take 1 tablet by mouth every 8 hours as needed for Pain. (not for migraines and not in same day as naprosyn) Take with food. oxyCODONE-acetaminophen (PERCOCET) 7.5-325 mg tablet Take 1 tablet by mouth every 8 hours as needed for pain. rizatriptan (MAXALT) 10 mg tablet Take 10 mg by mouth as needed. May repeat in 2 hours if needed cyclobenzaprine (FLEXERIL) 10 mg tablet Take 10 mg by mouth twice daily as needed for Muscle Spasm. simethicone, chewable (WY-ACID GAS RELIEF) 80 mg chewable tablet Take 1 tablet by mouth every 6 hours as needed. polyethylene glycol 3350 (MIRALAX) 17 gram/dose powder Take 17 g by mouth once daily. NOT NEEDING NOW docusate sodium (COLACE) 100 mg capsule Take 1 capsule by mouth once daily as needed. blood sugar diagnostic (BLOOD GLUCOSE TEST) test strip Test blood sugar(s) 1 times daily. Dx: (R73.9) Hyperglycemia; (R73.03) Prediabetes Insulin: No varenicline (CHANTIX CONTINUING MONTH BOX) 1 mg tablet Take 1 tablet by mouth twice daily. (Patient not taking: Reported on 08/15/2023) varenicline (CHANTIX CONTINUING MONTH BOX) 1 mg tablet Take 1 tablet by mouth twice daily. (Patient not taking: Reported on 08/15/2023) albuterol (PROVENTIL) 2.5 mg /3 mL (0.083 %) nebulizer solution Use 3 mL via nebulizer every 6 hours as needed for wheezing/shortness of breath. 1 vial contains 3 ml. naloxone 4 mg/actuation nasal spray (NARCAN) Use 1 spray in one nostril as needed for overdose. May repeat every 2 to 3 min in alternating nostrils until medical assistance is available Nebulizer NEBULIZER FOR HOME USE with supplies. DX: (J45.40) Moderate persistent asthma without complication (primary encounter diagnosis) REVIEW OF SYSTEMS: GENERAL: No fever, night sweats, weight loss or malaise. All other reviewed and negative other than HPI. PHYSICAL EXAMINATION: VITAL SIGNS: BP 115/69 Pulse 79 Temp 97.2 Wt 206 lb 8 oz (93.7kg) SpO2 95% LMP 11/04/2012 GENERAL APPEARANCE: Well appearing, in no acute distress, alert and oriented x3, well-hydrated, well nourished. LUNGS: CTA HEART: Reg I spent a total of 45 minutes on the date of the service which included preparing to see the patient, [id number] patient care, completing clinical documentation, obtaining and/or reviewing separately obtained history, performing a medically appropriate examination, counseling and educating the patient/family/caregiver, independently interpreting results (not separately reported), and communicating results to the patient/family/caregiver. Also review of images Electronically Signed: Sandoval Burgess MD November 16, 2023 documented in this encounter [facility] 11-12-2023 History of Present illness Narrative RADIOLOGY SERVICE PROGRESS NOTE SERVICE DATE: 11/12/2023 SERVICE TIME: 10:31 AM PATIENT IDENTITY VERIFICATION COMPLETED USING TWO (2) STANDARD IDENTIFIERS: Name and Date of confirmed by patient verbally FALL SCREENING: Has the patient had 2 falls in the last year or 1 fall with injury or currently using an Ambulatory Assistive Device (Walker, Cane, Wheelchair, Crutches, etc.)? No PATIENT GENDER DATA: .female ALLERGIES: NA MEDICATIONS REVIEWED: Not applicable PATIENT RELEVANT IMPLANT DATA REVIEWED: Not Applicable PATIENT PRESENTS WITH AN IMPLANTABLE OR ATTACHED SPAR FINISHER: No CREATININE: Creatinine Date Value Ref Range Status 10/31/2023 0.83 0.58 - 0.96 mg/dL Final 09/18/2023 0.79 0.58 - 0.96 mg/dL Final 08/07/2023 0.73 0.58 - 0.96 mg/dL Final Estimated Glomerular Filtration Rate Date Value Ref Range Status 10/31/2023 80 >=60 mL/min/1.73m Final Comment: Estimated Glomerular Filtration Rate (eGFR) is calculated using the 2020 CKD-EPI creatinine equation. This equation utilizes serum creatinine, sex, and age as parameters. The creatinine assay has traceable calibration to isotope dilution-mass spectrometry. Refer to KDIGO guidelines for clinical interpretation. In patients with unstable renal function, e.g. those with acute kidney injury, the eGFR may not accurately reflect actual GFR. eGFR- Date Value Ref Range Status 11/22/2021 >60 Final P.O.C.T. RESULTS: N/A November 12, [address] PERFORMED: No IV SITE: Ambulatory: NM only - direct IV injection in the Right antecubital site POST EXAM PIV STATUS: Discontinued PROCEDURE TYPE: NM INJECT: PET/CT BODY SCAN. 14.5 mCi F18 FDG. No other medications given.. ADMINISTRATION TIME: 1023 PATIENT DISCHARGED TO: Ambulatory patient, left NM department area. A Diagnostic radioactive procedure has taken place, with no further precautions necessary other than routine body substance precautions. More information regarding radiation safety can be found using this link: [email or web address] SIGNATURE: RT Ashly(R) PATIENT NAME: Lata Smith DATE: November 12, 2023 TIME: 10:31 AM PAGER/CONTACT #: documented in this encounter [facility] 09-18-2023 Miscellaneous Notes Patient notified and appointment notes adjusted. Mahi Chaidez Okay for straight back tomorrow. Please notify patient. Deb Hoover LPN Pt calling in to cancel her OV this morning due to her car not starting. Pt stated she will try to come in later today to get her labs drawn. Please advise if ok for pt to get treatment tomorrow with out OV or if provider would like to see her. He has a few openings tomorrow. documented in this encounter [facility] 09-05-2023 Miscellaneous Notes PATIENT NOTIFIED OF SAME. Orders sent as requested but insurance might not cover cost since is not diabetic. The following approved medication requests have been transmitted electronically. Requested Prescriptions Signed Prescriptions Disp Refills blood sugar diagnostic (BLOOD GLUCOSE TEST) test strip 50 Strip 11 Sig: Test blood sugar(s) 1 times daily. Dx: (R73.9) Hyperglycemia; (R73.03) Prediabetes Insulin: No Authorizing Provider: FIONA DURANT MD Patient called back to check on status of her request for a blood glucose monitor. Advised her Dr. Durant hasn't replied to her request yet. Please call her at [phone] to advise. Last HGBA1C was 12/15/21 at 6.2 Lata Smith is calling Fiona Durant MD today to request diabetic monitoring kit. She has been reviewing her MyChart and has noticed her sugars have been climbing and she would like to track them. [facility] in [place] Patient has been identified by name and birthdate. Duration of symptoms: N/A Person calling: self Call patient at: at home [phone] (home) [phone] (cell) Was an appointment scheduled: No Closing statement: Ann Her documented in this encounter [facility] 09-03-2023 Miscellaneous Notes Lata states she has another infection. Pharmacy verified in [facility] Patient has been identified by name and date of : Yes Patient aware RX will be sent to pharmacy. No need to notify patient. Patient phones for refill(s): Requested Prescriptions Pending Prescriptions Disp Refills nystatin (MYCOSTATIN) 100,000 unit/mL suspension 200 mL 0 Sig: Take 5 mL by mouth four times daily. 1tsp swish in mouth for several minutes, then swallow (or expectorate) 4 times daily until gone. Date of last office visit : 08/15/2023 Date of next office visit : 09/03/2023 Last 2 Encounter Wt Readings: Date: Wt: 08/15/2023 91.6 kg (202 lb) 08/07/2023 93.2 kg (205 lb 8 oz) Not applicable Please advise. Ann Her documented in this encounter [facility] 08-16-2023 Miscellaneous Notes Spoke with patient with approval by , discussed CT and follow-up plan. Reviewed questions and concerns. Patient comfortable with plan and appointment in September. Liza Canas RN documented in this encounter [facility] 08-14-2023 Miscellaneous Notes Spoke with Dr. Burgess, who reviewed CT scan. States there is a new nodule noted but he is not concerned about it at this time. He can discuss with patient further at her appt next week. Call to patient and aware of above message. Questions answered. She states she is still concerned but thanked this nurse for the phone call. Oneida Amaro RN Patient called back stating the results on my chart look like her cancer is back and she would like to speak to clinical. Patient requesting to speak to clinical regarding 08/10 CT results documented in this encounter [facility] 08-10-2023 History of Present illness Narrative Radiology Service Progress Note PATIENT NAME: Lata Smith DATE OF SERVICE: August 10, 2023 TIME: 2:52 PM PATIENT IDENTITY VERIFICATION COMPLETED USING TWO (2) IDENTIFIERS: Name and Date of confirmed by patient verbally. FALL SCREENING: Has the patient had 2 falls in the last year or 1 fall with injury or currently using an Ambulatory Assistive Device (Walker, Cane, Wheelchair, Crutches, etc.)? No PATIENT GENDER DATA: Female. status: : No status: NO. PATIENT RELEVANT IMPLANT DATA REVIEWED: Not Applicable RADIOLOGY DEPARTMENT: CT; Exam(s) Completed: Chest Abdomen Pelvis PERIPHERAL IV DATA: 22g right cephalic. D/c after scan SIGNED BY: RT Darrell(R) August 10, 2023 2:52 PM documented in this encounter [facility] 08-10-2023 History of Present illness Narrative [facility] #: [id number] TUMOR METRICS: RECIST 1.1 Follow-Up Measurement Research Nurse/CRC Contact Information: Liza Canas Date of Baseline Scan: 09/16/2020 Date of Comparison Scan: 05/11/[address] Chest dated 08/10/2023 Please see Abstract in EPIC Dated: 05/11/2023 documented in this encounter [facility] 08-08-2023 History of Present illness Narrative No changes to assessment from OV yesterday. Leigh Saul RN documented in this encounter [facility] 08-01-2023 History of Present illness Narrative This note was created using Zairgeriter. Subjective Lata Smith is a 62 year old female. HPI Presents with a chief complaint of sore throat and cough. She has had a cough for couple of weeks. Denies chest pain or shortness of breath. She states she had some congestion and sore throat starting 4 to 5 days ago. She has had a sore throat for 3 days. She came in because her throat was getting more sore. She has had thrush twice since she had started an inhaled steroid. Denies a fever. She also has noticed some redness to a growth that she has on her forehead. This has been for the past 3 days as well. It is mildly painful. No drainage from the area. Review of Systems Constitutional: Negative. HENT: Positive for congestion and sore throat. Negative for ear pain. Respiratory: Positive for cough. Negative for chest tightness, shortness of breath and wheezing. Cardiovascular: Negative. Gastrointestinal: Negative. Genitourinary: Negative. Musculoskeletal: Negative. Skin: Redness to growth on forehead All other systems reviewed and are negative. 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 Location: forehead 22 g 0 doxycycline (VIBRA-TABS) 100 mg tablet Take 1 tablet by mouth two times a day for 7 days. 14 tablet 0 nystatin (MYCOSTATIN) 100,000 unit/mL suspension Take 5 mL by mouth four times daily. 1tsp swish in mouth for several minutes, then swallow (or expectorate) 4 times daily until gone. 200 mL 0 varenicline (CHANTIX CONTINUING MONTH BOX) 1 mg tablet Take 1 tablet by mouth twice daily. 56 tablet 3 verapamil ER (VERELAN) 120 mg 24 hr capsule Take 1 capsule by mouth once daily. 90 capsule 3 losartan (COZAAR) 25 mg tablet Take 1 tablet by mouth once daily. 90 tablet 3 multivitamin tablet Take 1 tablet by mouth once daily. 30 tablet 11 albuterol HFA (VENTOLIN HFA) 90 mcg/actuation inhaler Inhale 2 Puffs as instructed every 4 hours as needed for Wheezing/Shortness of Breath. Do not replace with ProAir. 18 g 5 varenicline (CHANTIX CONTINUING MONTH BOX) 1 mg tablet Take 1 tablet by mouth twice daily. 56 tablet 3 hydroCHLOROthiazide 25 mg tablet Take 1 tablet by mouth once daily as needed (fluid retention/leg swelling). 30 tablet 3 fluticasone-salmeterol (ADVAIR DISKUS) 250-50 mcg/dose inhaler Inhale 1 Puff as instructed twice daily. RINSE AND GARGLE MOUTH WITH WATER AFTER EACH USE. 1 Each 5 rosuvastatin (CRESTOR) 40 mg tablet Take 1 tablet by mouth once daily. 90 tablet 11 traZODone (DESYREL) 50 mg tablet Take 1 tablet by mouth at bedtime as needed. 30 tablet 11 potassium chloride (KLOR-CON) 20 mEq packet Take 20 mEq by mouth twice daily. (Patient taking differently: Take 20 mEq by mouth twice daily. Rotates 1 packets daily 1 packet BID) 60 Packet 11 umeclidinium (INCRUSE ELLIPTA) 62.5 mcg/actuation inhaler Inhale 1 Puff as instructed once daily. 1 Each 5 fluticasone (FLONASE) 50 mcg/actuation nasal spray Use 2 Sprays in each nostril once daily. Rinse mouth after use 16 g 5 benzonatate (TESSALON PERLE) 100 mg capsule Take 2 capsules by mouth three times daily as needed for cough. Take 1-3 capsules by mouth every 6-8 hours as needed. 90 capsule 2 albuterol (PROVENTIL) 2.5 mg /3 mL (0.083 %) nebulizer solution Use 3 mL via nebulizer every 6 hours as needed for wheezing/shortness of breath. 1 vial contains 3 ml. 90 mL 1 aspirin, enteric coated (ASPIRIN, ENTERIC COATED) 81 mg EC tablet Take 1 tablet by mouth once daily. 30 tablet 11 diclofenac (VOLTAREN) 1 % topical gel Apply 2 g to affected area four times daily as needed (upper extremity joint(s)). 100 g 1 aluminum-magnesium hydroxide-simethicone (MAALOX,MYLANTA,MAG-AL PLUS) 200-200-20 mg/5 mL suspension Take 15 mL by mouth every 6 hours as needed. 354 mL 11 senna (SENOKOT) 8.6 mg tab Take 2 tablets by mouth twice daily. 60 tablet 2 promethazine (PHENERGAN) 25 mg tablet Take 1 tablet by mouth every 6 hours as needed for nausea/vomiting (Patient states she is using prior to Chantix dose for nausea). 28 tablet 2 ibuprofen (MOTRIN) 800 mg tablet Take 1 tablet by mouth every 8 hours as needed for Pain. (not for migraines and not in same day as naprosyn) Take with food. 60 tablet 2 oxyCODONE-acetaminophen (PERCOCET) 7.5-325 mg tablet Take 1 tablet by mouth every 8 hours as needed for pain. naloxone 4 mg/actuation nasal spray (NARCAN) Use 1 spray in one nostril as needed for overdose. May repeat every 2 to 3 min in alternating nostrils until medical assistance is available 1 Box 0 rizatriptan (MAXALT) 10 mg tablet Take 10 mg by mouth as needed. May repeat in 2 hours if needed cyclobenzaprine (FLEXERIL) 10 mg tablet Take 10 mg by mouth twice daily as needed for Muscle Spasm. simethicone, chewable (WY-ACID GAS RELIEF) 80 mg chewable tablet Take 1 tablet by mouth every 6 hours as needed. 60 tablet 11 polyethylene glycol 3350 (MIRALAX) 17 gram/dose powder Take 17 g by mouth once daily. NOT NEEDING NOW Nebulizer NEBULIZER FOR HOME USE with supplies. DX: (J45.40) Moderate persistent asthma without complication (primary encounter diagnosis) 1 Device 0 docusate sodium (COLACE) 100 mg capsule Take 1 capsule by mouth once daily as needed. 30 capsule 5 No current facility-administered medications for this visit. PAST SURGICAL HISTORY Procedure Laterality Date CHOLECYSTECTOMY Cholecystectomy COLONOSCOPY FLX DX W/COLLJ SPEC WHEN PFRMD 11/20/2012 Colonoscopy F TOTAL ABDOMINAL HYSTERECTOMY 05/2013 INCISE FINGER TENDON SHEATH Right 07/21/2021 Right ring trigger finger release INCISE FINGER TENDON SHEATH Left 02/26/2023 Left ring trigger finger release LAPAROSCOPIC APPENDECTOMY 02/17/2015 LIG/TRNSXJ FLP TUBE ABDL/VAG APPR UNI/BI 1982 Tubal ligation NEUROPLASTY &/TRANSPOS MEDIAN NRV CARPAL TUNNE 04/29/2004 Carpal tunnel decomp,left NEUROPLASTY &/TRANSPOS MEDIAN NRV CARPAL TUNNE 05/17/2004 Carpal tunnel decomp, right JARODASURE PAST SURGICAL HISTORY OF cardiac stents FAMILY HISTORY Problem Relation Age of Onset Blood Disease Mother Alzheimer's Disease Father other (lung cancer) Brother 3rd brother, small cell Diabetes Maternal Grandmother Cerebral Embolism Brother oldest brother, aneurysm Cancer Brother 2nd brother, some type of skin cancer Social History Tobacco Use Smoking status: Every Day Packs/day: 1.00 Years: 40.00 Additional pack years: 0.00 Total pack years: 40.00 Types: Cigarettes Smokeless tobacco: Never Tobacco comments: Down to 1PPD still; stress Vaping Use Vaping Use: Former Substance Use Topics Alcohol use: Yes Comment: Occasional glass of wine. A few per month Drug use: Yes Types: Marijuana Comment: every 2-3 days Objective BP 117/74 Pulse 78 Temp 36.5 C (97.7 F) Resp 18 Wt 92.1 kg (203 lb) LMP 11/04/2012 SpO2 93% BMI 39.65 kg/m Physical Exam Vitals reviewed. Constitutional: Appearance: Normal appearance. HENT: Head: Normocephalic and atraumatic. Right Ear: Tympanic membrane, ear canal and external ear normal. Left Ear: Tympanic membrane, ear canal and external ear normal. Nose: Congestion present. Mouth/Throat: Mouth: Mucous membranes are moist. Pharynx: Posterior oropharyngeal erythema present. No oropharyngeal exudate. Comments: White patch on roof of mouth, erythema in the throat Cardiovascular: Rate and Rhythm: Normal rate and regular rhythm. Heart sounds: Normal heart sounds. Pulmonary: Effort: Pulmonary effort is normal. Breath sounds: Normal breath sounds. Musculoskeletal: Cervical back: Neck supple. Lymphadenopathy: Cervical: No cervical adenopathy. Skin: General: Skin is dry. Neurological: General: No focal deficit present. Mental Status: She is alert. Assessment and Plan ASSESSMENT/PLAN: 1. Sore throat - ICD9: 462, ICD10: J02.9 (primary diagnosis) - Group A strep molecular testing negative -Concern for possible thrush. We will treat with nystatin. - STREP A MOLECULAR (POC) 2. Rash - ICD9: 782.1, ICD10: R21 Patient has small vesicles on the growth on her forehead. I will test for possible shingles or herpes but could also be bacterial infection starting. Will cover with mupirocin. If positive for shingles will start antivirals. - HSV1,2/VZV NAAT LESION 3. Chronic obstructive pulmonary disease with acute exacerbation (HCC) - ICD9: 491.21, ICD10: J44.1 Treat With doxycycline. Follow-up with PCP or pulmonology. Isabel Campuzano PA-C documented in this encounter [facility] 07-23-2023 Miscellaneous Notes PA was denied by [employer]. Advair Diskus and Incruse continued as formulary alternative. Pt. notified re: same. Lauren Presley LPN Pt called regarding Trulicity Ann Slade ordered. States that pharmacy needs prior auth. Not on medication list. documented in this encounter [facility] 06-26-2023 History of Present illness Narrative IRB#: [id number], [facility]# [id number]: A Randomized, Phase III Study of Firstline Immunotherapy alone or in Combination with Chemotherapy in Induction/Maintenance or Postprogression in Advanced Nonsquamous Non-Small Cell Lung Cancer (NSCLC) with Immunobiomarker SIGNature-driven Analysis IC signed 09/13/2020 Randomized 09/22/2020 to treatment arm A: 1st line [id number] (pembrolizumab) followed by 2nd line Pemetrexed/Carboplatin. Study ID: [id number] Patient off study treatment protocol 10/17/2022 - since patient was supposed to end Cycle 36 - John wanted patient to continue with treatment outside of protocol. Pt examined by Sandoval Burgess MD on 06/26/2023 in follow up of new treatment plan. Patient seen for survival by this staff. Patient doing well with second line therapy - Patient has a new mass being looked into believed to be related to thyroid- not progression and RECIST shown SD. Patient feeling less sore and fatigued. Patient back up to a pack a week and vapes occasionally, but has not been drinking. Patient encouraged to reduce intake. Patient managing pain with hip with palliative care still and feels this has improved. Patient just got over bronchitis - has not lingering illness other than continued cough. PS/KPS completed by Dr.Lun Fry 90 10/17/2022 Creatinine Clearance: (No longer needed) Quality of life questionnaire completed per protocol: Not Required per trial. Clinical trial draw completed per protocol: Not required until progression. VS completed per protocol: Yes CT Schedule Most Recent 05/11/2023 - RECIST (SD) Abstract complete Due Next Due by 08/10/2023 06/26/2023 Weight 93.2 kg (205 lb 8 oz) BSA 0 Resp 18 Pulse Ox 94% on RA BP 110/73 Temp 36.4 C (97.5 F) BMI 0 Pulse 83 Concomitant medications reviewed per protocol: Yes Current Outpatient Medications Indication: Start date: Stop date: Medication Instructions albuterol (PROVENTIL) 2.5 mg, NEBULIZATION -UNSPEC, EVERY 6 HOURS NEEDED, 1 vial contains 3 ml. Asthma 20 years ago hasn't used in over a year albuterol HFA (VENTOLIN HFA) 90 mcg/actuation inhaler 2 Puffs, INHALATION, EVERY 4 HOURS NEEDED Asthma 20 years ago aspirin, enteric coated (ASPIRIN LOW DOSE) 81 mg, ORAL, DAILY Hx of [place] 10/2019 clopidogrel (PLAVIX) 75 mg, ORAL, DAILY Hx of [place] 10/2019 Stopped 10-25-2020 diclofenac sodium (VOLTAREN) 4 g, TOPICAL, 4 TIMES DAILY NEEDED Osteoarthritis 06/28/2020 docusate sodium (COLACE) 100 mg, ORAL, ONCE DAILY NEEDED Constipation 05/23/2013 esomeprazole (NEXIUM) 20 mg, ORAL, DAILY, (insurance states it covers Nexium OTC 20 mg) Esophageal reflux 06/06/2004 10/06/2021 fluticasone (FLONASE) 50 mcg/actuation nasal spray Use 2 Sprays in each nostril once daily. Rinse mouth after use. allergic rhinitis 08/29/2004 lisinopril (ZESTRIL, PRINIVIL) 5 mg, ORAL, DAILY Hx of [place] 10/2019 morphine SR (MS CONTIN) 30 mg, ORAL,EVERY 8 HOURS FOR PAIN. hip pain 09/10/2020 11/04/2020 Nebulizer NEBULIZER FOR HOME USE with supplies. DX: (J45.40) Moderate persistent asthma without complication (primary encounter diagnosis) asthma Patient has not been taking polyethylene glycol 3350 (MIRALAX) 17 g, ORAL, DAILY, NOT NEEDING NOW Constipation 05/23/2013 Maxalt 10 mg tab, 1 tab by mouth as needed, may repeat in 2 hours if needed Migraines 06/25/2013 potassium chloride ER (K-DUR, KLOR-CON) 20 mEq tablet 20 mEq, ORAL, one tab EOD and two tabs EOD per patient Low K+ 10/27/2020 Patient reports only taking one tablet daily 3-4 days per week (06/27/21) rosuvastatin (CRESTOR) 40 mg, ORAL, DAILY Dyslipidemia 02/27/2020 simethicone, chewable ([place]-ACID GAS RELIEF(SIMETHICON)) 80 mg, ORAL, EVERY 6 HOURS NEEDED Irritable bowel 10/16/2012 traZODone (DESYREL) 50 mg, ORAL, AT BEDTIME NEEDED Depression 07/26/2010 10/06/2021 verapamil ER (VERELAN) 120 mg 24 hr capsule Verapamil Verapamil Hcl Active 0 MG DAILY October 10, 2019 7:53am 10-10-2019 [facility] ([id number]) Hx [place] 10/2019 Motrin 800mg, 1 tab every 8 hours as prn Headaches 08/28/2016 Stopped 12/20/2020 but continue to take PRN Headaches 01/21/2008 Flexeril 10mg, 1 tab twice daily prn Muscles spasms 08/15/2005 Sennosides 17.2 mg ORAL 2 TIMES DAILY Constipation 10/18/2020 Percocet 5/325mg, [id number] prn Pain 11/05/2020 calcium-cholecalciferol, D3, (OSCAL+D ) 500 mg(1,250mg) -400 unit chewable tablet Supplement to support bone metastis 2020 11/22/2021 Chantix(varenicline) 0.5mg and 1mg start box Take 0.5 mg by mouth once daily on Days 1 through 3, THEN 0.5 mg twice daily on Days 4 through 7, THEN 1 mg twice daily on Day 8 and thereafter smoking cessation 01/10/2022 Promethazine(Phenergan) 25mg 1 tablet every 6 hours as needed for nausea nausea 11/20/2020 Omeprazole 20 mg 1 tablet tate Esophageal reflux 10/06/2021 Multivitamin 1 tablet daily Supplement 11/22/2021 Tessalon Perles 100 mg 1-3 capsules every 6-8 hours as needed for cough Cough Suppression 09/22/2022 Oxycodone 10 mg At bedtime for pain Pain 03/22/2022 Levaquin 750 mg tablet Take 1 tablet daily for seven days Bronchitis 02/01/2023 Stopped/Completed:02/08/2023 Fluticasone-salmeterol(Advair Diskus) 250-50 mcg/dose inhaler Inhale 1 puff twice daily COPD Start:04/26/2023 Patient remains on Zometa 4 mg IV Q12 weeks for skeletal mets. Summary of Visits as below 08/10/2023 CT scans The provider has reviewed and verified the information included within this note, including AE information. Patient has contact information for Dr. Navarro office as well as [facility] Department for any questions/concerns. PATRICIO Jacobson, RN, Clinical Research Nurse [phone] documented in this encounter [facility] 06-26-2023 History of Present illness Narrative (Elements copied from my note dated May 15, 2023, have been reviewed and updated where appropriate, and all reflect current assessment and medical decision making from today's encounter, June 26, 2023) HISTORY OF PRESENT ILLNESS: Lata Smith is a 62 year old female who presented with worsening shortness of breath and hemoptysis for several months. Patient was seen in primary care clinic in May was treated with antibiotic without improvement. She was seen by Dr. Castillo and a CT chest revealed a lung mass and mediastinal adenopathy. She had no fever Chills, rigor, pleuritic chest pain, chest trauma. She has stable exertional dyspnea with activities of daily living, and exertional wheezing. She also complained of severe right hip pain along with pressure on her right side of her chest for couple months. Her staging PET scan on 08/03/2020 unfortunately showed metastatic disease. She had bronchoscopy and EBUS biopsy of the mediastinal lymph node on 08/19/2020. Biopsy was consistent with non-small cell, favoring adenocarcinoma the lung. She is here today to discuss treatment option for metastatic lung cancer. Patient is lives with an adult son. She is quit smoking since October after her heart attack. She denied any any weight loss since her heart attack. She has no hoarseness or dysphagia. No headaches or neurological symptoms. She has severe right hip pain secondary to metastatic disease. MRI scan of brain shows no evidence of metastatic disease. She completed palliative radiation therapy to her right hip. Current therapy: 1) Pembrolizumab. 2) Zometa. Here for follow up, feels well, pain issues essentially resolved. Much more ambulatory. No ill effects from treatment other than mild fatigue a day or 2 after each one. 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 Continue treatments as scheduled 2. Follow scans Written and verbal health teaching given to patient, patient verbalizes understanding and agrees with treatment plan. 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 Hypertension Irritable bowel syndrome Migraine without aura Obesity, unspecified Other forms of migraine ST elevation myocardial infarction involving right coronary artery (HCC) 06/28/2020 Tobacco use disorder PAST SURGICAL HISTORY Procedure Laterality Date CHOLECYSTECTOMY Cholecystectomy COLONOSCOPY FLX DX W/COLLJ SPEC WHEN PFRMD 11/20/2012 Colonoscopy F TOTAL ABDOMINAL HYSTERECTOMY 05/2013 INCISE FINGER TENDON SHEATH Right 07/21/2021 Right ring trigger finger release INCISE FINGER TENDON SHEATH Left 02/26/2023 Left ring trigger finger release LAPAROSCOPIC APPENDECTOMY 02/17/2015 LIG/TRNSXJ FLP TUBE ABDL/VAG APPR UNI/BI 1982 Tubal ligation NEUROPLASTY &/TRANSPOS MEDIAN NRV CARPAL TUNNE 04/29/2004 Carpal tunnel decomp,left NEUROPLASTY &/TRANSPOS MEDIAN NRV CARPAL TUNNE 05/17/2004 Carpal tunnel decomp, right NOVASURE PAST SURGICAL HISTORY OF cardiac stents FAMILY HISTORY Problem Relation Age of Onset Blood Disease Mother Alzheimer's Disease Father other (lung cancer) Brother 3rd brother, small cell Diabetes Maternal Grandmother Cerebral Embolism Brother oldest brother, aneurysm Cancer Brother 2nd brother, some type of skin cancer Social History Tobacco Use Smoking status: Every Day Packs/day: 1.00 Years: 40.00 Additional pack years: 0.00 Total pack years: 40.00 Types: Cigarettes Smokeless tobacco: Never Tobacco comments: Down to 1PPD still; stress Vaping Use Vaping Use: Former Substance Use Topics Alcohol use: Yes Comment: Occasional glass of wine. A few per month Drug use: Yes Types: Marijuana Comment: every 2-3 days ALLERGIES: ALLERGIES Allergen Reactions Augmentin [Amoxicil* Diarrhea Tolerates plain penicillins such as amoxicillin Penicillins Hives Also GI upset. CURRENT OUTPATIENT MEDICATIONS: varenicline (CHANTIX CONTINUING MONTH BOX) 1 mg tablet Take 1 tablet by mouth twice daily. verapamil ER (VERELAN) 120 mg 24 hr capsule Take 1 capsule by mouth once daily. losartan (COZAAR) 25 mg tablet Take 1 tablet by mouth once daily. multivitamin tablet Take 1 tablet by mouth once daily. albuterol HFA (VENTOLIN HFA) 90 mcg/actuation inhaler Inhale 2 Puffs as instructed every 4 hours as needed for Wheezing/Shortness of Breath. Do not replace with ProAir. varenicline (CHANTIX CONTINUING MONTH BOX) 1 mg tablet Take 1 tablet by mouth twice daily. hydroCHLOROthiazide 25 mg tablet Take 1 tablet by mouth once daily as needed (fluid retention/leg swelling). fluticasone-salmeterol (ADVAIR DISKUS) 250-50 mcg/dose inhaler Inhale 1 Puff as instructed twice daily. RINSE AND GARGLE MOUTH WITH WATER AFTER EACH USE. nystatin (MYCOSTATIN) 100,000 unit/mL suspension Take 2 mL by mouth four times daily for 14 days. Swish and swallow. rosuvastatin (CRESTOR) 40 mg tablet Take 1 tablet by mouth once daily. traZODone (DESYREL) 50 mg tablet Take 1 tablet by mouth at bedtime as needed. potassium chloride (KLOR-CON) 20 mEq packet Take 20 mEq by mouth twice daily. (Patient taking differently: Take 20 mEq by mouth twice daily. Rotates 1 packets daily 1 packet BID) umeclidinium (INCRUSE ELLIPTA) 62.5 mcg/actuation inhaler Inhale 1 Puff as instructed once daily. fluticasone (FLONASE) 50 mcg/actuation nasal spray Use 2 Sprays in each nostril once daily. Rinse mouth after use benzonatate (TESSALON PERLE) 100 mg capsule Take 2 capsules by mouth three times daily as needed for cough. Take 1-3 capsules by mouth every 6-8 hours as needed. aspirin, enteric coated (ASPIRIN, ENTERIC COATED) 81 mg EC tablet Take 1 tablet by mouth once daily. diclofenac (VOLTAREN) 1 % topical gel Apply 2 g to affected area four times daily as needed (upper extremity joint(s)). aluminum-magnesium hydroxide-simethicone (MAALOX,MYLANTA,MAG-AL PLUS) 200-200-20 mg/5 mL suspension Take 15 mL by mouth every 6 hours as needed. senna (SENOKOT) 8.6 mg tab Take 2 tablets by mouth twice daily. promethazine (PHENERGAN) 25 mg tablet Take 1 tablet by mouth every 6 hours as needed for nausea/vomiting (Patient states she is using prior to Chantix dose for nausea). ibuprofen (MOTRIN) 800 mg tablet Take 1 tablet by mouth every 8 hours as needed for Pain. (not for migraines and not in same day as naprosyn) Take with food. oxyCODONE-acetaminophen (PERCOCET) 7.5-325 mg tablet Take 1 tablet by mouth every 8 hours as needed for pain. rizatriptan (MAXALT) 10 mg tablet Take 10 mg by mouth as needed. May repeat in 2 hours if needed cyclobenzaprine (FLEXERIL) 10 mg tablet Take 10 mg by mouth twice daily as needed for Muscle Spasm. simethicone, chewable ([place]-ACID GAS RELIEF) 80 mg chewable tablet Take 1 tablet by mouth every 6 hours as needed. polyethylene glycol 3350 (MIRALAX) 17 gram/dose powder Take 17 g by mouth once daily. NOT NEEDING NOW docusate sodium (COLACE) 100 mg capsule Take 1 capsule by mouth once daily as needed. albuterol (PROVENTIL) 2.5 mg /3 mL (0.083 %) nebulizer solution Use 3 mL via nebulizer every 6 hours as needed for wheezing/shortness of breath. 1 vial contains 3 ml. naloxone 4 mg/actuation nasal spray (NARCAN) Use 1 spray in one nostril as needed for overdose. May repeat every 2 to 3 min in alternating nostrils until medical assistance is available Nebulizer NEBULIZER FOR HOME USE with supplies. DX: (J45.40) Moderate persistent asthma without complication (primary encounter diagnosis) REVIEW OF SYSTEMS: GENERAL: No fever, night sweats, weight loss or malaise. All other reviewed and negative other than HPI. PHYSICAL EXAMINATION: VITAL SIGNS: BP 110/73 Pulse 83 Temp 97.5 Wt 205 lb 8 oz (93.2kg) SpO2 94% LMP 11/04/2012 GENERAL APPEARANCE: Well appearing, in no acute distress, alert and oriented x3, well-hydrated, well nourished. LUNGS: CTA HEART: Reg I spent a total of 40 minutes on the date of the service which included preparing to see the patient, [id number] patient care, completing clinical documentation, obtaining and/or reviewing separately obtained history, performing a medically appropriate examination, counseling and educating the patient/family/caregiver, independently interpreting results (not separately reported), and communicating results to the patient/family/caregiver. Electronically Signed: Sandoval Burgess MD June 26, 2023 documented in this encounter [facility] 06-25-2023 Miscellaneous Notes Patient phones requesting refills as follows: Requested Prescriptions Pending Prescriptions Disp Refills hydroCHLOROthiazide 25 mg tablet 30 tablet 3 Sig: Take 1 tablet by mouth once daily as needed (fluid retention/leg swelling). [facility] 05/22/23 08/15/23 Please review and advise. Corbin Kerr LPN documented in this encounter [facility] 06-25-2023 Miscellaneous Notes Patient phones requesting refills as follows: Requested Prescriptions Pending Prescriptions Disp Refills varenicline (CHANTIX CONTINUING MONTH BOX) 1 mg tablet 56 tablet 3 Sig: Take 1 tablet by mouth twice daily. [facility] 05/22/23 08/15/23 Please review and advise. Corbin Kerr LPN documented in this encounter [facility] 06-25-2023 Miscellaneous Notes Patient phones requesting refills as follows: Requested Prescriptions Pending Prescriptions Disp Refills verapamil ER (VERELAN) 120 mg 24 hr capsule 90 capsule 3 Sig: Take 1 capsule by mouth once daily. losartan (COZAAR) 25 mg tablet 90 tablet 3 Sig: Take 1 tablet by mouth once daily. multivitamin tablet 30 tablet 11 Sig: Take 1 tablet by mouth once daily. albuterol HFA (VENTOLIN HFA) 90 mcg/actuation inhaler 18 g 5 Sig: Inhale 2 Puffs as instructed every 4 hours as needed for Wheezing/Shortness of Breath. Do not replace with ProAir. varenicline (CHANTIX CONTINUING MONTH BOX) 1 mg tablet 56 tablet 3 Sig: Take 1 tablet by mouth twice daily. [facility]O 05/22/23 NOV 08/15/23 Please review and advise. Corbin Kerr LPN documented in this encounter [facility] 06-25-2023 Miscellaneous Notes VITO: 06/20/23 Patient phones requesting refills as follows: Requested Prescriptions Pending Prescriptions Disp Refills fluticasone-salmeterol (ADVAIR DISKUS) 250-50 mcg/dose inhaler 1 Each 5 Sig: Inhale 1 Puff as instructed twice daily. RINSE AND GARGLE MOUTH WITH WATER AFTER EACH USE. Please review and advise. Lauren Presley LPN documented in this encounter [facility] 06-20-2023 History of Present illness Narrative Images from the original note were not included. Patient: Lata Smith PCP: Fiona Durant MD CC: follow up HPI: Lata Smith 62 year old obese female current [id number] smoker with PMH significant for asthma COPD overlap syndrome, depression, GERD, HTN, fibromyalgia, migraines, CAD s/p stents, hepatitis B, and lung cancer. Diagnosed with stage IV non-small cell lung cancer 08/2020, mets to bones, treatment with palliative radiation to her right hip and pembrolizumab/Zometa. Most recent CT shows stable nodularity in the area treated cancer, adjacent 10 mm nodule which has gradually increased in size since 2020. Current maintenance therapy with Advair and Incruse with as needed Albuterol. Recently treated for oral thrush per PCP. Today, patient reports daily cough, non-productive. No hemoptysis. Wheezing. Exertional dyspnea with walking short distances. Not able to climb stairs. Also limited by right hip pain. No lower extremity edema. 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 rosuvastatin (CRESTOR) 40 mg tablet Take 1 tablet by mouth once daily. traZODone (DESYREL) 50 mg tablet Take 1 tablet by mouth at bedtime as needed. varenicline (CHANTIX CONTINUING MONTH BOX) 1 mg tablet Take 1 tablet by mouth twice daily. potassium chloride (KLOR-CON) 20 mEq packet Take 20 mEq by mouth twice daily. umeclidinium (INCRUSE ELLIPTA) 62.5 mcg/actuation inhaler Inhale 1 Puff as instructed once daily. fluticasone-salmeterol (ADVAIR DISKUS) 250-50 mcg/dose inhaler Inhale 1 Puff as instructed twice daily. RINSE AND GARGLE MOUTH WITH WATER AFTER EACH USE. dugnerdowtl-jrnwwekbn-cddtnkuq (TRELEGY ELLIPTA) 100-62.5-25 mcg inhalation powder Inhale 1 Puff as instructed once daily. predniSONE (DELTASONE) 10 mg tablet Take 4 daily for three days, then 3 daily for three days, then 2 daily for three days, then one daily for three days. fluticasone (FLONASE) 50 mcg/actuation nasal spray Use 2 Sprays in each nostril once daily. Rinse mouth after use benzonatate (TESSALON PERLE) 100 mg capsule Take 2 capsules by mouth three times daily as needed for cough. Take 1-3 capsules by mouth every 6-8 hours as needed. hydroCHLOROthiazide 25 mg tablet Take 1 tablet by mouth once daily as needed (fluid retention/leg swelling). (Patient taking differently: Take 25 mg by mouth once daily.) albuterol (PROVENTIL) 2.5 mg /3 mL (0.083 %) nebulizer solution Use 3 mL via nebulizer every 6 hours as needed for wheezing/shortness of breath. 1 vial contains 3 ml. multivitamin tablet Take 1 tablet by mouth once daily. aspirin, enteric coated (ASPIRIN, ENTERIC COATED) 81 mg EC tablet Take 1 tablet by mouth once daily. albuterol HFA (VENTOLIN HFA) 90 mcg/actuation inhaler Inhale 2 Puffs as instructed every 4 hours as needed for Wheezing/Shortness of Breath. Do not replace with ProAir. diclofenac (VOLTAREN) 1 % topical gel Apply 2 g to affected area four times daily as needed (upper extremity joint(s)). aluminum-magnesium hydroxide-simethicone (MAALOX,MYLANTA,MAG-AL PLUS) 200-200-20 mg/5 mL suspension Take 15 mL by mouth every 6 hours as needed. losartan (COZAAR) 25 mg tablet Take 1 tablet by mouth once daily. senna (SENOKOT) 8.6 mg tab Take 2 tablets by mouth twice daily. promethazine (PHENERGAN) 25 mg tablet Take 1 tablet by mouth every 6 hours as needed for nausea/vomiting (Patient states she is using prior to Chantix dose for nausea). ibuprofen (MOTRIN) 800 mg tablet Take 1 tablet by mouth every 8 hours as needed for Pain. (not for migraines and not in same day as naprosyn) Take with food. verapamil ER (VERELAN) 120 mg 24 hr capsule Take 1 capsule by mouth once daily. oxyCODONE-acetaminophen (PERCOCET) 7.5-325 mg tablet Take 1 tablet by mouth every 8 hours as needed for pain. naloxone 4 mg/actuation nasal spray (NARCAN) Use 1 spray in one nostril as needed for overdose. May repeat every 2 to 3 min in alternating nostrils until medical assistance is available rizatriptan (MAXALT) 10 mg tablet Take 10 mg by mouth as needed. May repeat in 2 hours if needed cyclobenzaprine (FLEXERIL) 10 mg tablet Take 10 mg by mouth twice daily as needed for Muscle Spasm. simethicone, chewable (WY-ACID GAS RELIEF) 80 mg chewable tablet Take 1 tablet by mouth every 6 hours as needed. polyethylene glycol 3350 (MIRALAX) 17 gram/dose powder Take 17 g by mouth once daily. NOT NEEDING NOW Nebulizer NEBULIZER FOR HOME USE with supplies. DX: (J45.40) Moderate persistent asthma without complication (primary encounter diagnosis) docusate sodium (COLACE) 100 mg capsule Take 1 capsule by mouth once daily as needed. Social History Tobacco Use Smoking status: Every Day Packs/day: 1.00 Years: 40.00 Additional pack years: 0.00 Total pack years: 40.00 Types: Cigarettes Smokeless tobacco: Never Tobacco comments: Down to 1PPD still; stress Vaping Use Vaping Use: Former Substance Use Topics Alcohol use: Yes Comment: Occasional glass of wine. A few per month Drug use: Yes Types: Marijuana Comment: every 2-3 days Family History Problem Relation Age of Onset Blood Disease Mother Alzheimer's Disease Father other (lung cancer) Brother 3rd brother, small cell Diabetes Maternal Grandmother Cerebral Embolism Brother oldest brother, aneurysm Cancer Brother 2nd brother, some type of skin cancer PAST SURGICAL HISTORY Procedure Laterality Date CHOLECYSTECTOMY Cholecystectomy COLONOSCOPY FLX DX W/COLLJ SPEC WHEN PFRMD 11/20/2012 Colonoscopy F TOTAL ABDOMINAL HYSTERECTOMY 05/2013 INCISE FINGER TENDON SHEATH Right 07/21/2021 Right ring trigger finger release INCISE FINGER TENDON SHEATH Left 02/26/2023 Left ring trigger finger release LAPAROSCOPIC APPENDECTOMY 02/17/2015 LIG/TRNSXJ FLP TUBE ABDL/VAG APPR UNI/BI 1982 Tubal ligation NEUROPLASTY &/TRANSPOS MEDIAN NRV CARPAL TUNNE 04/29/2004 Carpal tunnel decomp,left NEUROPLASTY &/TRANSPOS MEDIAN NRV CARPAL TUNNE 05/17/2004 Carpal tunnel decomp, right NOVASURE PAST SURGICAL HISTORY OF cardiac stents I reviewed the past medical history, family history, social history and surgical history with changes noted above and updated in EMR. IMMUNIZATIONS Prevnar - xx Pneumovax 08/2017 Influenza - 2021 COVID-19 - xx ROS: CONSTITUTIONAL: No fevers, chills, nightsweats, unintended weight loss HEENT: Some nasal congestion/sinus symptoms. EYES: No diplopia or blurry vision. CARDIOVASCULAR: No chest pain, palpitations, orthopnea, PND. PULM: See HPI GI: No dysphagia/odynophagia, problematic reflux NEURO: No new balance problems, peripheral weakness/paresthesias or numbness of concern. MUSC-SKEL: Right hip pain INTEGUMENTARY: No new skin changes or rashes PHYSICAL EXAMINATION: BP 107/70 (BP Site: Right Arm, BP Position: Sitting, BP Cuff Size: Large Adult) Pulse 80 Resp 14 Wt 93 kg (205 lb) LMP 11/04/2012 SpO2 94% BMI 40.04 kg/m Gen: No acute distress. Cooperative with examination. HEENT: Normocephalic. Sclera, conjunctiva clear. Oral hygeine and dentition good. No thrush. Resp: No stridor, accessory respiratory muscle use, supra-sternal or intercostal retractions. No wheezes, crackles. CV: Regular rythm. Heart tones normal. Radial pulses normal. Abd: Non distended. MSK: No kyphoscoliosis. Ext: Warm and well perfused. No clubbing, cyanosis, edema. Skin: No rash, ecchymoses. Neuro: Mental status normal. Affect normal. No tremor. DATA: PFT: Review pulmonary function test show moderately severe fixed obstructive lung disease not significantly changed from previous testing PFT 08/2019: CT chest, 02/09/2023 DATE OF EXAM: Feb 09 2023 10:30AM [facility] 0539 - CT CHEST W IVCON / PROCEDURE REASON: multiple diagnoses CLINICAL HISTORY: Cancer of lower lobe of right lung (HCC) Examination of participant in clinical trial Comparison: Chest CT 11/13/2022. RESULT: Limitations: None. Lines, tubes, and devices: None. Lung parenchyma and airways: The trachea and central airways appear patent and devoid of endobronchial lesion. There are diffuse bronchial wall thickening and scattered mucoid impactions reflecting airway inflammation. Again noted is a stable 13 x 10 mm right lower lobe nodule (image 86), consistent with treated malignant nodule. There is a 10 mm juxtadiaphragmatic right lower lobe nodule (image 152), without significant change since prior exam, though increased in size compared to earlier exams, previously 5 mm on 07/01/2020. Additional stable lung nodules are noted, for example 8 mm groundglass nodule in the right upper lobe (image 60), 4 mm groundglass nodule in the lateral right upper lobe (image 69) and 4 mm solid nodule in the anterior right upper lobe (images 70). No new or enlarging lung nodules since the 11/13/2022. Pleural space: No pleural effusion. No pleural thickening. Lower neck, lymph nodes, and mediastinum: There is a 13 mm nodular opacity in the pretracheal space, slightly more prominent than prior exam (image 33), which may reflect exophytic thyroid nodule versus less likely enlarged lymph node. The remainder of the thyroid gland is normal unremarkable.. No lymphadenopathy in the supraclavicular, axillary, mediastinal, or hilar regions. The esophagus is nondilated. Heart, pericardium, and thoracic vessels: There are atherosclerotic calcifications of the thoracic aorta with calcified and noncalcified atherosclerotic plaques both noted involving the arch vessels without significant luminal narrowing. The thoracic aorta and main pulmonary artery are normal in caliber. The cardiac chambers are normal in size. Scattered coronary artery atherosclerotic calcifications are noted with PCI stents in RCA, although the study is not optimized for coronary assessment. No pericardial effusion or thickening. Bones and soft tissues: Mild degenerative changes of the thoracic spine. Healed pathologic fracture of the right lateral sixth rib resulting in from lytic expansile lesion seen on remote chest CT dated 09/16/2020, presumed metastatic. Stable sclerotic foci in the axial and appendicular skeleton for example sternum (image 67, 83) and the right humeral head (image 12, 14), likely benign. No new destructive bone lesion. Chest wall is unremarkable. Upper abdomen: Dictated separately. IMPRESSION: No significant interval change. Stable 13 mm right lower lobe nodule consistent with treated malignancy. 10 mm juxtadiaphragmatic right lower lobe nodule remains stable since prior exam, though increased in size dating back to 07/01/2020 when it measured 5 mm, suspicious for neoplastic process. Additional subcentimeter lung nodules are unchanged. No thoracic lymphadenopathy. 13 mm nodular opacity in the retrosternal pretracheal space, likely exophytic thyroid nodule which should be followed up with dedicated thyroid imaging. ASSESSMENT/PLAN: 1. Stage 3 severe COPD by GOLD classification (HCC) - ICD9: 496, ICD10: J44.9 (primary diagnosis) Will try to change to Trelegy daily. Rinse mouth after each use to help prevent oral thrush. Albuterol HFA inhaler, 2 inhalations 10-15 minutes prior to activities associated with shortness of breath, and as needed for rescue relief of shortness of breath or wheezing, up to 4 times daily. Smoking cessation is critical. - FLUTICASONE FUR. 100 MCG-UMECLID 62.5 MCG-VILANT 25 MCG INHALAT.POWDER 2. Malignant neoplasm of right lung, unspecified part of lung (HCC) - ICD9: 162.9, ICD10: C34.91 Treatment plan per oncology. Next CTchest should be August 2023. 3. Cigarette smoker - ICD9: 305.1, ICD10: F17.210 Cessation encouraged. Physiologic and physical aspects of tobacco addiction as well as strategies for quitting were discussed. Counseling was given focusing on the harmful effects of this addiction especially given the patient's medical condition(s) which will be worsened because of the chemicals in tobacco. Portions of this documentation were copied and pasted from previous office visit notes in order to provide a cohesive continuity of the history. The note has been reviewed and edited and updated as necessary. Ann Slade PA-C documented in this encounter [facility] 05-25-2023 History of Present illness Narrative Images from the original note were not included. Subjective The history is provided by the patient. No speech and language specialist was used. HPI Lata Smith is a 62 year old female who presents today for CC of white patches on tongue, with burning and redness in mouth. Sore throat. This started over the past day and is getting worse. Patient used inhaled corticosteroids, she states she does rinse her mouth after use but has developed this in the past. No fever, chills or body aches. BP 110/62 Pulse 93 Temp 37.2 C (98.9 F) Resp 22 Wt 92.7 kg (204 lb 6.4 oz) LMP 11/04/2012 SpO2 93% BMI 39.92 kg/m Social History Tobacco Use Smoking status: Every Day Packs/day: 1.00 Years: 40.00 Additional pack years: 0.00 Total pack years: 40.00 Types: Cigarettes Smokeless tobacco: Never Tobacco comments: Down to 1PPD still; stress Vaping Use Vaping Use: Former Substance Use Topics Alcohol use: Yes Comment: Occasional glass of wine. 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 HENT: White patches on tongue, placque Musculoskeletal: Negative for joint pain and myalgias. Skin: Negative for itching and rash. All other systems reviewed and are negative. Objective Physical Exam Vitals and nursing note reviewed. HENT: Mouth/Throat: Comments: White patches, erythema Pulmonary: Effort: Pulmonary effort is normal. Skin: General: Skin is warm and dry. Neurological: Mental Status: She is alert and oriented to person, place, and time. Psychiatric: Mood and Affect: Affect normal. ASSESSMENT/PLAN: 1. Thrush - ICD9: 112.0, ICD10: B37.0 Nystatin as ordered Encourage good oral hygiene with inhalers. Follow up with PCP prn Diagnosis and treatment plan were discussed and questions were answered to the patient's satisfaction. Pt acknowledged understanding of concepts and follow up plan. Specific signs and symptoms that would indicate the need for higher level of care were discussed in detail warranting prompt ER evaluation. Perla Gautam APRN.CNP documented in this encounter [facility] 05-22-2023 History of Present illness Narrative This note was created using [employer]. Subjective Lata Smith is a 62 year old female. Patient presents with: 3 mo follow up SUBJECTIVE: Lata Smith is a 62 year old year old lady here today for 3 month follow up appointment for review of medical conditions. 4 cans of sprite daily. Did cut out the sweets or limited how much eats at a time. Watching portions. Concerns about glucose on recent labs. Was 200s fasting. Recent 110s Stable on current meds. 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 Hypertension Irritable bowel syndrome Migraine without aura Obesity, unspecified Other forms of migraine ST elevation myocardial infarction involving right coronary artery (HCC) 06/28/2020 Tobacco use disorder PAST SURGICAL HISTORY Procedure Laterality Date CHOLECYSTECTOMY Cholecystectomy COLONOSCOPY FLX DX W/COLLJ SPEC WHEN PFRMD 11/20/2012 Colonoscopy F TOTAL ABDOMINAL HYSTERECTOMY 05/2013 INCISE FINGER TENDON SHEATH Right 07/21/2021 Right ring trigger finger release INCISE FINGER TENDON SHEATH Left 02/26/2023 Left ring trigger finger release LAPAROSCOPIC APPENDECTOMY 02/17/2015 LIG/TRNSXJ FLP TUBE ABDL/VAG APPR UNI/BI 1982 Tubal ligation NEUROPLASTY &/TRANSPOS MEDIAN NRV CARPAL TUNNE 04/29/2004 Carpal tunnel decomp,left NEUROPLASTY &/TRANSPOS MEDIAN NRV CARPAL TUNNE 05/17/2004 Carpal tunnel decomp, right JEY PAST SURGICAL HISTORY OF cardiac stents Current Outpatient Medications Medication Sig potassium chloride (KLOR-CON) 20 mEq packet Take 20 mEq by mouth twice daily. umeclidinium (INCRUSE ELLIPTA) 62.5 mcg/actuation inhaler Inhale 1 Puff as instructed once daily. fluticasone-salmeterol (ADVAIR DISKUS) 250-50 mcg/dose inhaler Inhale 1 Puff as instructed twice daily. RINSE AND GARGLE MOUTH WITH WATER AFTER EACH USE. fluticasone (FLONASE) 50 mcg/actuation nasal spray Use 2 Sprays in each nostril once daily. Rinse mouth after use benzonatate (TESSALON PERLE) 100 mg capsule Take 2 capsules by mouth three times daily as needed for cough. Take 1-3 capsules by mouth every 6-8 hours as needed. varenicline (CHANTIX CONTINUING MONTH BOX) 1 mg tablet Take 1 tablet by mouth twice daily. multivitamin tablet Take 1 tablet by mouth once daily. aspirin, enteric coated (ASPIRIN, ENTERIC COATED) 81 mg EC tablet Take 1 tablet by mouth once daily. albuterol HFA (VENTOLIN HFA) 90 mcg/actuation inhaler Inhale 2 Puffs as instructed every 4 hours as needed for Wheezing/Shortness of Breath. Do not replace with ProAir. diclofenac (VOLTAREN) 1 % topical gel Apply 2 g to affected area four times daily as needed (upper extremity joint(s)). aluminum-magnesium hydroxide-simethicone (MAALOX,MYLANTA,MAG-AL PLUS) 200-200-20 mg/5 mL suspension Take 15 mL by mouth every 6 hours as needed. losartan (COZAAR) 25 mg tablet Take 1 tablet by mouth once daily. senna (SENOKOT) 8.6 mg tab Take 2 tablets by mouth twice daily. promethazine (PHENERGAN) 25 mg tablet Take 1 tablet by mouth every 6 hours as needed for nausea/vomiting (Patient states she is using prior to Chantix dose for nausea). ibuprofen (MOTRIN) 800 mg tablet Take 1 tablet by mouth every 8 hours as needed for Pain. (not for migraines and not in same day as naprosyn) Take with food. verapamil ER (VERELAN) 120 mg 24 hr capsule Take 1 capsule by mouth once daily. oxyCODONE-acetaminophen (PERCOCET) 7.5-325 mg tablet Take 1 tablet by mouth every 8 hours as needed for pain. rosuvastatin (CRESTOR) 40 mg tablet Take 1 tablet by mouth once daily. traZODone (DESYREL) 50 mg tablet Take 1 tablet by mouth at bedtime as needed. rizatriptan (MAXALT) 10 mg tablet Take 10 mg by mouth as needed. May repeat in 2 hours if needed cyclobenzaprine (FLEXERIL) 10 mg tablet Take 10 mg by mouth twice daily as needed for Muscle Spasm. simethicone, chewable (WY-ACID GAS RELIEF) 80 mg chewable tablet Take 1 tablet by mouth every 6 hours as needed. docusate sodium (COLACE) 100 mg capsule Take 1 capsule by mouth once daily as needed. seuwrpandok-voflemakz-shmddfbh (TRELEGY ELLIPTA) 100-62.5-25 mcg inhalation powder Inhale 1 Puff as instructed once daily. predniSONE (DELTASONE) 10 mg tablet Take 4 daily for three days, then 3 daily for three days, then 2 daily for three days, then one daily for three days. varenicline (CHANTIX STARTING MONTH BOX) 0.5 mg (11)- 1 mg (42) tablet Take 0.5 mg by mouth once daily on Days 1 through 3, THEN 0.5 mg twice daily on Days 4 through 7, THEN 1 mg twice daily on Day 8 and thereafter hydroCHLOROthiazide 25 mg tablet Take 1 tablet by mouth once daily as needed (fluid retention/leg swelling). (Patient taking differently: Take 25 mg by mouth once daily.) albuterol (PROVENTIL) 2.5 mg /3 mL (0.083 %) nebulizer solution Use 3 mL via nebulizer every 6 hours as needed for wheezing/shortness of breath. 1 vial contains 3 ml. naloxone 4 mg/actuation nasal spray (NARCAN) Use 1 spray in one nostril as needed for overdose. May repeat every 2 to 3 min in alternating nostrils until medical assistance is available polyethylene glycol 3350 (MIRALAX) 17 gram/dose powder Take 17 g by mouth once daily. NOT NEEDING NOW Nebulizer NEBULIZER FOR HOME USE with supplies. DX: (J45.40) Moderate persistent asthma without complication (primary encounter diagnosis) No current facility-administered medications for this visit. Review of Systems Objective BP 110/80 Pulse 80 Resp 16 Ht 152.4 cm (5') Wt 91.6 kg (202 lb) LMP 11/04/2012 BMI 39.45 kg/m Component Latest Ref Rng & Units 11/24/2022 01/09/2023 02/20/2023 04/03/2023 05/15/2023 WBC 3.70 - 11.00 k/uL 7.74 7.00 5.89 11.69 (H) 7.72 RBC 3.90 - 5.20 m/uL 4.82 4.86 4.77 4.94 4.67 Hemoglobin 11.5 - 15.5 g/dL 13.7 14.0 13.5 14.1 13.4 Hematocrit 36.0 - 46.0 % 41.2 42.7 41.2 43.8 40.5 MCV 80.0 - 100.0 fL 85.5 87.9 86.4 88.7 86.7 MCH 26.0 - 34.0 pg 28.4 28.8 28.3 28.5 28.7 MCHC 30.5 - 36.0 g/dL 33.3 32.8 32.8 32.2 33.1 RDW-CV 11.5 - 15.0 % 14.6 14.5 14.6 15.5 (H) 15.1 (H) Platelet Count 150 - 400 k/uL 217 215 183 222 215 MPV 9.0 - 12.7 fL 9.8 10.4 10.1 9.7 10.2 Neut% % 67.4 71.8 69.9 78.2 73.6 Abs Neut (ANC) 1.45 - 7.50 k/uL 5.22 5.03 4.11 9.13 (H) 5.68 Lymph% % 22.1 18.4 20.2 13.4 17.0 Abs Lymph 1.00 - 4.00 k/uL 1.71 1.29 1.19 1.57 1.31 [place]% % 7.1 5.7 6.1 6.4 6.7 Abs [place] <0.87 k/uL 0.55 0.40 0.36 0.75 0.52 Eosin% % 2.2 2.6 2.7 1.0 1.6 Abs Eosin <0.46 k/uL 0.17 0.18 0.16 0.12 0.12 Baso% % 0.8 0.9 0.8 0.6 0.5 Abs Baso <0.11 k/uL 0.06 0.06 0.05 0.07 0.04 Immature Gran % % 0.4 0.6 0.3 0.4 0.6 IMMATURE GRANS (ABS) <0.10 k/uL 0.03 0.04 <0.03 0.05 0.05 NRBC /100 WBC 0.0 0.0 0.0 0.0 0.0 Absolute nRBC <0.01 k/uL <0.01 <0.01 <0.01 <0.01 <0.01 DTYPE Auto Auto Auto Auto Auto Protein, Total 6.3 - 8.0 g/dL 7.4 7.0 6.7 7.4 Albumin 3.9 - 4.9 g/dL 3.9 3.9 3.9 4.2 Calcium 8.5 - 10.2 mg/dL 8.5 8.9 9.3 9.1 Bilirubin, Total 0.2 - 1.3 mg/dL 0.3 0.2 0.2 0.3 Alkaline Phosphatase 34 - 123 U/L 122 124 (H) 109 110 AST 13 - 35 U/L 17 12 (L) 9 (L) 10 (L) ALT 7 - 38 U/L 22 16 10 18 Glucose 74 - 99 mg/dL 119 (H) 127 (H) 134 (H) 141 (H) BUN 7 - 21 mg/dL 12 7 8 10 Creatinine 0.58 - 0.96 mg/dL 0.75 0.80 0.79 0.82 Sodium 136 - 144 mmol/L 136 142 141 137 Potassium 3.7 - 5.1 mmol/L 4.0 4.4 3.5 (L) 3.1 (L) Chloride 97 - 105 mmol/L 101 107 (H) 107 (H) 100 CO2 22 - 30 mmol/L 23 27 29 28 Anion Gap 9 - 18 mmol/L 12 8 (L) 5 (L) 9 eGFR >=60 mL/min/1.73m 91 84 85 81 TSH 0.270 - 4.200 mIU/L 2.470 2.050 1.300 1.120 3.000 Free T4 0.9 - 1.7 ng/dL 1.1 1.2 1.1 1.3 1.2 Cortisol 4.8 - 19.5 ug/dL 8.5 6.7 4.3 (L) 5.5 9.0 CMP done at [facility]--glucose 114 Physical Exam Constitutional: Appearance: Normal appearance. HENT: Head: Normocephalic. Eyes: Conjunctiva/sclera: Conjunctivae normal. Cardiovascular: Rate and Rhythm: Normal rate and regular rhythm. Heart sounds: Normal heart sounds. Pulmonary: Effort: Pulmonary effort is normal. Breath sounds: Normal breath sounds. Musculoskeletal: Right lower leg: No edema. Left lower leg: No edema. Skin: General: Skin is warm and dry. Neurological: General: No focal deficit present. Mental Status: She is alert and oriented to person, place, and time. Psychiatric: Attention and Perception: Attention and perception normal. Mood and Affect: Mood and affect normal. Speech: Speech normal. Behavior: Behavior normal. Thought Content: Thought content normal. Cognition and Memory: Cognition and memory normal. Judgment: Judgment normal. Labs reviewed. Assessment and Plan Encounter Diagnosis ICD-10-CM 1. Fibromyalgia M79.7 traZODone (DESYREL) 50 mg tablet 2. Cigarette smoker F17.210 varenicline (CHANTIX CONTINUING MONTH BOX) 1 mg tablet 3. Class 2 obesity due to excess calories with body mass index (BMI) of 39.0 to 39.9 in adult, unspecified whether serious comorbidity present E66.09 Z68.39 4. COPD with asthma (HCC) J44.9 5. Pain of right hip M25.551 6. Mixed stress and urge urinary incontinence N39.46 7. Coronary artery disease involving cheesh-na coronary artery of cheesh-na heart without angina pectoris I25.10 rosuvastatin (CRESTOR) 40 mg tablet Above issues addressed with patient. Patient involved in shared decision making for management of medical issues. History and medications reviewed. Epic updated as needed Refills and/or prescriptions taken care of and meds adjusted as indicated after reviewed history, exam and labs. Health Maintenance reviewed. Updated record and/or ordered tests as recorded. Encouraged on efforts at healthy diet and regular exercise and adequate sleep. Stable on current meds and management. Continue present meds. Further evaluation and treatment as indicated. Keep working on smoking cessation. Fiona Durant MD documented in this encounter [facility] 05-15-2023 History of Present illness Narrative HISTORY OF PRESENT ILLNESS: Lata Smith is a 62 year old female who presented with worsening shortness of breath and hemoptysis for several months. Patient was seen in primary care clinic in May was treated with antibiotic without improvement. She was seen by Dr. Castillo and a CT chest revealed a lung mass and mediastinal adenopathy. She had no fever Chills, rigor, pleuritic chest pain, chest trauma. She has stable exertional dyspnea with activities of daily living, and exertional wheezing. She also complained of severe right hip pain along with pressure on her right side of her chest for couple months. Her staging PET scan on 08/03/2020 unfortunately showed metastatic disease. She had bronchoscopy and EBUS biopsy of the mediastinal lymph node on 08/19/2020. Biopsy was consistent with non-small cell, favoring adenocarcinoma the lung. She is here today to discuss treatment option for metastatic lung cancer. Patient is lives with an adult son. She is quit smoking since October after her heart attack. She denied any any weight loss since her heart attack. She has no hoarseness or dysphagia. No headaches or neurological symptoms. She has severe right hip pain secondary to metastatic disease. MRI scan of brain shows no evidence of metastatic disease. She completed palliative radiation therapy to her right hip. Current therapy: 1) Pembrolizumab. 2) Zometa. Here for follow up, feels well, pain issues essentially resolved. Much more ambulatory. No ill effects from treatment other than mild fatigue a day or 2 after each one. 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 Continue treatments as scheduled 2. Follow scans Written and verbal health teaching given to patient, patient verbalizes understanding and agrees with treatment plan. 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 Hypertension Irritable bowel syndrome Migraine without aura Obesity, unspecified Other forms of migraine ST elevation myocardial infarction involving right coronary artery (HCC) 06/28/2020 Tobacco use disorder PAST SURGICAL HISTORY Procedure Laterality Date CHOLECYSTECTOMY Cholecystectomy COLONOSCOPY FLX DX W/COLLJ SPEC WHEN PFRMD 11/20/2012 Colonoscopy F TOTAL ABDOMINAL HYSTERECTOMY 05/2013 INCISE FINGER TENDON SHEATH Right 07/21/2021 Right ring trigger finger release INCISE FINGER TENDON SHEATH Left 02/26/2023 Left ring trigger finger release LAPAROSCOPIC APPENDECTOMY 02/17/2015 LIG/TRNSXJ FLP TUBE ABDL/VAG APPR UNI/BI 1982 Tubal ligation NEUROPLASTY &/TRANSPOS MEDIAN NRV CARPAL TUNNE 04/29/2004 Carpal tunnel decomp,left NEUROPLASTY &/TRANSPOS MEDIAN NRV CARPAL TUNNE 05/17/2004 Carpal tunnel decomp, right NOVASURE PAST SURGICAL HISTORY OF cardiac stents FAMILY HISTORY Problem Relation Age of Onset Blood Disease Mother Alzheimer's Disease Father other (lung cancer) Brother 3rd brother, small cell Diabetes Maternal Grandmother Cerebral Embolism Brother oldest brother, aneurysm Cancer Brother 2nd brother, some type of skin cancer Social History Tobacco Use Smoking status: Every Day Packs/day: 1.00 Years: 40.00 Total pack years: 40.00 Types: Cigarettes Smokeless tobacco: Never Vaping Use Vaping Use: Former Substance Use Topics Alcohol use: Yes Comment: Occasional glass of wine. A few per month Drug use: Yes Types: Marijuana Comment: every 2-3 days ALLERGIES: ALLERGIES Allergen Reactions Augmentin [Amoxicil* Diarrhea Tolerates plain penicillins such as amoxicillin Penicillins Hives Also GI upset. CURRENT OUTPATIENT MEDICATIONS: potassium chloride (KLOR-CON) 20 mEq packet Take 20 mEq by mouth twice daily. umeclidinium (INCRUSE ELLIPTA) 62.5 mcg/actuation inhaler Inhale 1 Puff as instructed once daily. fluticasone-salmeterol (ADVAIR DISKUS) 250-50 mcg/dose inhaler Inhale 1 Puff as instructed twice daily. RINSE AND GARGLE MOUTH WITH WATER AFTER EACH USE. fluticasone (FLONASE) 50 mcg/actuation nasal spray Use 2 Sprays in each nostril once daily. Rinse mouth after use benzonatate (TESSALON PERLE) 100 mg capsule Take 2 capsules by mouth three times daily as needed for cough. Take 1-3 capsules by mouth every 6-8 hours as needed. hydroCHLOROthiazide 25 mg tablet Take 1 tablet by mouth once daily as needed (fluid retention/leg swelling). (Patient taking differently: Take 25 mg by mouth once daily.) multivitamin tablet Take 1 tablet by mouth once daily. aspirin, enteric coated (ASPIRIN, ENTERIC COATED) 81 mg EC tablet Take 1 tablet by mouth once daily. albuterol HFA (VENTOLIN HFA) 90 mcg/actuation inhaler Inhale 2 Puffs as instructed every 4 hours as needed for Wheezing/Shortness of Breath. Do not replace with ProAir. diclofenac (VOLTAREN) 1 % topical gel Apply 2 g to affected area four times daily as needed (upper extremity joint(s)). aluminum-magnesium hydroxide-simethicone (MAALOX,MYLANTA,MAG-AL PLUS) 200-200-20 mg/5 mL suspension Take 15 mL by mouth every 6 hours as needed. losartan (COZAAR) 25 mg tablet Take 1 tablet by mouth once daily. senna (SENOKOT) 8.6 mg tab Take 2 tablets by mouth twice daily. promethazine (PHENERGAN) 25 mg tablet Take 1 tablet by mouth every 6 hours as needed for nausea/vomiting (Patient states she is using prior to Chantix dose for nausea). ibuprofen (MOTRIN) 800 mg tablet Take 1 tablet by mouth every 8 hours as needed for Pain. (not for migraines and not in same day as naprosyn) Take with food. verapamil ER (VERELAN) 120 mg 24 hr capsule Take 1 capsule by mouth once daily. oxyCODONE-acetaminophen (PERCOCET) 7.5-325 mg tablet Take 1 tablet by mouth every 8 hours as needed for pain. rosuvastatin (CRESTOR) 40 mg tablet Take 1 tablet by mouth once daily. traZODone (DESYREL) 50 mg tablet Take 1 tablet by mouth at bedtime as needed. rizatriptan (MAXALT) 10 mg tablet Take 10 mg by mouth as needed. May repeat in 2 hours if needed cyclobenzaprine (FLEXERIL) 10 mg tablet Take 10 mg by mouth twice daily as needed for Muscle Spasm. simethicone, chewable ([place]-ACID GAS RELIEF) 80 mg chewable tablet Take 1 tablet by mouth every 6 hours as needed. polyethylene glycol 3350 (MIRALAX) 17 gram/dose powder Take 17 g by mouth once daily. NOT NEEDING NOW docusate sodium (COLACE) 100 mg capsule Take 1 capsule by mouth once daily as needed. vicqfocyztr-nsefazref-kvkbqboc (TRELEGY ELLIPTA) 100-62.5-25 mcg inhalation powder Inhale 1 Puff as instructed once daily. (Patient not taking: Reported on 04/16/2023) predniSONE (DELTASONE) 10 mg tablet Take 4 daily for three days, then 3 daily for three days, then 2 daily for three days, then one daily for three days. varenicline (CHANTIX STARTING MONTH BOX) 0.5 mg (11)- 1 mg (42) tablet Take 0.5 mg by mouth once daily on Days 1 through 3, THEN 0.5 mg twice daily on Days 4 through 7, THEN 1 mg twice daily on Day 8 and thereafter varenicline (CHANTIX CONTINUING MONTH BOX) 1 mg tablet Take 1 tablet by mouth twice daily. albuterol (PROVENTIL) 2.5 mg /3 mL (0.083 %) nebulizer solution Use 3 mL via nebulizer every 6 hours as needed for wheezing/shortness of breath. 1 vial contains 3 ml. naloxone 4 mg/actuation nasal spray (NARCAN) Use 1 spray in one nostril as needed for overdose. May repeat every 2 to 3 min in alternating nostrils until medical assistance is available Nebulizer NEBULIZER FOR HOME USE with supplies. DX: (J45.40) Moderate persistent asthma without complication (primary encounter diagnosis) REVIEW OF SYSTEMS: GENERAL: No fever, night sweats, weight loss or malaise. All other reviewed and negative other than HPI. PHYSICAL EXAMINATION: VITAL SIGNS: BP 109/71 Pulse 74 Temp 97 Wt 203 lb 8 oz (92.3kg) SpO2 95% LMP 11/04/2012 GENERAL APPEARANCE: Well appearing, in no acute distress, alert and oriented x3, well-hydrated, well nourished. LUNGS: CTA HEART: Reg I spent a total of 40 minutes on the date of the service which included preparing to see the patient, [id number] patient care, completing clinical documentation, obtaining and/or reviewing separately obtained history, performing a medically appropriate examination, counseling and educating the patient/family/caregiver, independently interpreting results (not separately reported), and communicating results to the patient/family/caregiver. Electronically Signed: Sandoval Burgess MD May 15, 2023 10:34 AM documented in this encounter [facility] 05-14-2023 History of Present illness Narrative RECIST TUMOR MEASUREMENTS IRB #: [id number] / [id number] Image Modality: CT ABD/PEL W IVCON Image Date: 05/11/2023 Date of Baseline Scan: 09/16/2020 Date of Comparison Scan: 02/10/2023 Research Nurse: Liza Canas Follow-Up Measurement Lesion A right lower lobe nodule, Lesion B lymph node,right hilar Sum Date Size (3m) Series/Image # Size (mm) Series/Image # Baseline: 09/16/2020 3.0 > 30 mm Series 9, Image 77 22 mm Series 7, Image 75 52 06/22/2021 16 mm Series 6 Image 78 No longer Visible 16 08/26/2021 14 mm Series 9 Image 79 No longer Visible 14 11/18/2021 14 mm Series 6, Image 76 No longer Visible 14 02/10/2022 16 mm Series 9, Image 82 No longer Visible 16 05/05/2022 14 mm Series 6, Image 83 No longer Visible 14 08/10/2022 14 mm Series 9, Image 81 No longer Visible 14 11/13/2022 1.3 > 13 mm Series 9, Image 78 No longer Visible 13 mm 02/10/2023 1.3 - 13 mm Series 9, Image 86 No longer Visible 13 mm 05/11/2023 1.2 - 12 mm Series 9, Image 75 No longer Visible 12mm * Target lesion - right lower lobe nodule, 1.2 cm x 1.1 cm, (Series 9, Image 75) List Non-Target Lesion Site: None Appearance of New Lesion: No Sum of Lesions: 1.2 cm - 12 mm Baseline: 5.2 cm - 52 mm Nacho: 1.2 cm -12 mm Response: Stable Disease Measurements have been reviewed, discussed, and approved by Telly Canas RN May 14, 2023 documented in this encounter [facility] 05-14-2023 Miscellaneous Notes Patient returned call at this time and discussed reviewed images with . Patient understands and will be in tomorrow for her scheduled appointment. Left patient a voicemail to call back about reviewed results with Telly Duncan MD. Liza Canas RN documented in this encounter [facility] 04-16-2023 History of Present illness Narrative Subjective The history is provided by the patient. No speech and language specialist was used. HPI Lata Smith is a 62 year old female who presents today for CC of eye irritation of left eye. She felt like she had a dog hair in there and was rubbing her eye a lot. She denies any loss or change in vision. Per patient has a history of floaters, has appointment coming up with eye doctor. BP 118/78 Pulse 87 Temp 37.1 C (98.7 F) Resp 21 Wt 92.6 kg (204 lb 3.2 oz) LMP 11/04/2012 SpO2 98% BMI 39.67 kg/m Social History Tobacco Use Smoking status: Every Day Packs/day: 1.00 Years: 40.00 Total pack years: 40.00 Types: Cigarettes Smokeless tobacco: Never Vaping Use Vaping Use: Former Substance Use Topics Alcohol use: Yes Comment: Occasional glass of wine. 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 HENT: Negative for congestion, ear pain, sinus pain and sore throat. Eyes: Positive for discharge (irritation, burning). Respiratory: Negative for cough, sputum production, shortness of breath and wheezing. Cardiovascular: Negative for chest pain. Musculoskeletal: Negative for joint pain and myalgias. Skin: Negative for itching and rash. Neurological: Negative for headaches. All other systems reviewed and are negative. Objective Physical Exam Vitals and nursing note reviewed. HENT: Head: Normocephalic and atraumatic. Right Ear: Tympanic membrane, ear canal and external ear normal. Left Ear: Tympanic membrane, ear canal and external ear normal. Nose: No mucosal edema, congestion or rhinorrhea. Right Sinus: No maxillary sinus tenderness or frontal sinus tenderness. Left Sinus: No maxillary sinus tenderness or frontal sinus tenderness. Mouth/Throat: Pharynx: Uvula midline. No oropharyngeal exudate or posterior oropharyngeal erythema. Eyes: General: Lids are normal. Lids are everted, no foreign bodies appreciated. Vision grossly intact. Right eye: No foreign body or discharge. Left eye: No foreign body or discharge. Conjunctiva/sclera: Right eye: Right conjunctiva is not injected. Left eye: Left conjunctiva is injected. Comments: Globes are firm but not hard. Upper and lower lids were everted. There is no evidence of injury or foreign material. No hyphema is present. There is no evidence of periorbital cellulitis. There are no temporal, pulsatile masses. Flourescein stain was instilled into the left eye and a Wood's Lamp exam performed. There was uptake at the 1-2 oclock position. Cardiovascular: Rate and Rhythm: Normal rate and regular rhythm. Heart sounds: Normal heart sounds. Pulmonary: Effort: Pulmonary effort is normal. Breath sounds: Normal breath sounds. Lymphadenopathy: Head: Right side of head: No submental, submandibular or tonsillar adenopathy. Left side of head: No submental, submandibular or tonsillar adenopathy. Cervical: No cervical adenopathy. Skin: General: Skin is warm and dry. Neurological: Mental Status: She is alert. Psychiatric: Mood and Affect: Affect normal. ASSESSMENT/PLAN: 1. Eye irritation - ICD9: 379.99, ICD10: H57.89 Appears to be possible corneal abrasion ERythromycin eye ointment as ordered Follow up with opthamologist as discussed Go to ER for any loss or change in vision Diagnosis and treatment plan were discussed and questions were answered to the patient's satisfaction. Pt acknowledged understanding of concepts and follow up plan. Specific signs and symptoms that would indicate the need for higher level of care were discussed in detail warranting prompt ER evaluation. Perla Gautam APRN.CNP documented in this encounter [facility] 04-09-2023 Miscellaneous Notes Patient returned call and scheduled. Mahi Chaidez 2nd attempt. LM for patient to return call. When patient calls, please schedule as directed by the research nurse's note below: Can we please get this patient who is on clinical trial [id number] scheduled around 05/11/23, but not later than 05/14/[address] chest/abd/pelv the orders are already in. Thank you! Mahi Chaidez Per Research Nurse routing comment: Can we please get this patient who is on clinical trial [id number] scheduled around 05/11/23, but not later than 05/14/[address] chest/abd/pelv the orders are already in. Thank you! LM for patient to return call. When patient calls, please schedule as directed above, document and close this note. Mahi Chaidez documented in this encounter [facility] 04-03-2023 History of Present illness Narrative Oncologic problem(s): 1) Stage IV, non-small cell (adenocarcinoma) lung cancer. HPI: 62-year-old lady with history of hypertension cardiovascular disease recent [place] in October 2019, status post coronary stents x3 on Plavix and aspirin who presented with worsening shortness of breath and hemoptysis for several months. Patient was seen in primary care clinic in May was treated with antibiotic without improvement. She was seen by Dr. Castillo and a CT chest revealed a lung mass and mediastinal adenopathy. She had no fever Chills, rigor, pleuritic chest pain, chest trauma. She has stable exertional dyspnea with activities of daily living, and exertional wheezing. She also complained of severe right hip pain along with pressure on her right side of her chest for couple months. Her staging PET scan on 08/03/2020 unfortunately showed metastatic disease. She had bronchoscopy and EBUS biopsy of the mediastinal lymph node on 08/19/2020. Biopsy was consistent with non-small cell, favoring adenocarcinoma the lung. She is here today to discuss treatment option for metastatic lung cancer. Patient is lives with an adult son. She is quit smoking since October after her heart attack. She denied any any weight loss since her heart attack. She has no hoarseness or dysphagia. No headaches or neurological symptoms. She has severe right hip pain secondary to metastatic disease. MRI scan of brain shows no evidence of metastatic disease. She completed palliative radiation therapy to her right hip. Current therapy: 1) Pembrolizumab. 2) Zometa. Interim history: Tolerating pembrolizumab well. No subjective change: Verified 04/03/2023. No diarrhea (has IBS--unchanged symptoms). Chronic cough not as bad--hard candy helps. Smoking--1 ppd. Normal appetite. Fatigue is only side effect. PMH, medications and allergies personally reviewed by me today. Any changes documented in appropriate section. ROS: Constitutional: Denies episodes of fever and night sweats. Neuro: Denies CORNELL, vertigo, dizziness and imbalance. HEENT: No recent change in voice, vision or hearing. Resp: See above. CVS: Denies exertional chest pain, PND, orthopnea and LE edema. GI: Denies dysphagia and odynophagia. Denies reflux, nausea and abdominal pain. : Denies dysuria or gross hematuria. Endo: Denies hot flashes. Denies polyuria and polydipsia. Denies heat and cold intolerance. Musculoskeletal: Chronic pain lateral right hip since radiation--comes and goes depending on activity. Derm: Denies rash. Denies jaundice and diffuse pruritis. Heme: Denies unusual bleeding and unexplained bruising. Psych: Normal mood. PHYSICAL EXAM: Vitals: Blood pressure 123/67, pulse 87, temperature 36.2 C (97.1 F), temperature source Temporal, weight 91.6 kg (202 lb), last menstrual period 11/04/2012, SpO2 96 %. Well-appearing and in no acute distress. EYES: Sclerae are anicteric bilaterally. LYMPHATIC: There is no palpable cervical, supraclavicular or axillary adenopathy. RESPIRATORY: Inspiratory breath sounds are of very diminished intensity in all qureshi. No wheezes appreciated today. CARDIOVASCULAR: Rhythm is regular. ABDOMEN: The abdomen is nondistended. No tenderness. SKIN: No jaundice or rash. NEUROLOGIC: steam and power superintendent II-XII are grossly intact. No focal motor weakness. LABORATORY DATA: Component Latest Ref Rng & Units 04/03/2023 WBC 3.70 - 11.00 k/uL 11.69 (H) RBC 3.90 - 5.20 m/uL 4.94 Hemoglobin 11.5 - 15.5 g/dL 14.1 Hematocrit 36.0 - 46.0 % 43.8 MCV 80.0 - 100.0 fL 88.7 MCH 26.0 - 34.0 pg 28.5 MCHC 30.5 - 36.0 g/dL 32.2 RDW-CV 11.5 - 15.0 % 15.5 (H) Platelet Count 150 - 400 k/uL 222 MPV 9.0 - 12.7 fL 9.7 Neut% % 78.2 Abs Neut (ANC) 1.45 - 7.50 k/uL 9.13 (H) Lymph% % 13.4 Abs Lymph 1.00 - 4.00 k/uL 1.57 [place]% % 6.4 Abs [place] <0.87 k/uL 0.75 Eosin% % 1.0 Abs Eosin <0.46 k/uL 0.12 Baso% % 0.6 Abs Baso <0.11 k/uL 0.07 Immature Gran % % 0.4 IMMATURE GRANS (ABS) <0.10 k/uL 0.05 NRBC /100 WBC 0.0 Absolute nRBC <0.01 k/uL <0.01 DTYPE Auto Protein, Total 6.3 - 8.0 g/dL 7.4 Albumin 3.9 - 4.9 g/dL 4.2 Calcium 8.5 - 10.2 mg/dL 9.1 Bilirubin, Total 0.2 - 1.3 mg/dL 0.3 Alkaline Phosphatase 34 - 123 U/L 110 AST 13 - 35 U/L 10 (L) ALT 7 - 38 U/L 18 Glucose 74 - 99 mg/dL 141 (H) BUN 7 - 21 mg/dL 10 Creatinine 0.58 - 0.96 mg/dL 0.82 Sodium 136 - 144 mmol/L 137 Potassium 3.7 - 5.1 mmol/L 3.1 (L) Chloride 97 - 105 mmol/L 100 CO2 22 - 30 mmol/L 28 Anion Gap 9 - 18 mmol/L 9 eGFR >=60 mL/min/1.73m 81 ASSESSMENT/PLAN: The patient is a 61-year-old female with a history of COPD, coronary artery disease with metastatic non-small cell lung cancer (right lower lobe-favoring adenocarcinoma) with extensive bone metastases including a large lytic lesion in the right sacrum for which she received palliative radiation. (C34.31) Cancer of lower lobe of right lung (HCC) (primary encounter diagnosis) (C79.51) Bone metastases (HCC) Assessment: PD-L1 expression 100% ROS1 & RET not detected. BRAF No variant detected. EGFR - No variant detected. HER2 (ERBB2) - No variant detected. KRAS A sequence change: [id number] (p.[id number]) was detected at approximately 30% allelic proportion. MET- No variant detected. -She continues to do well on pembrolizumab. [place]. Plan: -Continue with pembrolizumab after 2 years on study. -Pembrolizumab 400 mg IV every 42 days. -Zometa 4 mg IV every 3 months for skeletal metastases. -Repeat CBC, CMP, TSH, cortisol & office visit in 6 weeks -Repeat CT chest abdomen pelvis in May. 2) Hip pain secondary to right iliac lesion. -Pain is controlled Plan: -Continue ibuprofen and Percocet per palliative care. -Senokot 2 tablet twice daily & MiraLAX as needed for constipation. -[facility] 3) COPD /tobacco use Assessment: -Discussed smoking cessation. Not psychologically motivated to quit. Plan: -Continue Proventil nebulizer as needed -Follow-up with PCP for smoking cessation US thyroid. -8 mm nodule. No biopsy or follow up recommended. Portions of this documentation were copied and pasted from previous office visit notes in order to provide a cohesive continuity of the history. The note has been reviewed and edited and updated as necessary. I spent a total of 20 minutes on the date of the service which included preparing to see the patient, [id number] patient care, completing clinical documentation, obtaining and/or reviewing separately obtained history, performing a medically appropriate examination, counseling and educating the patient/family/caregiver, ordering medications, tests, or procedures, communicating with other HCPs (not separately reported), and communicating results to the patient/family/caregiver. Telly Duncan DO Cc: Fiona Durant MD. [facility] documented in this encounter [facility] 04-03-2023 History of Present illness Narrative Patient does not need to be seen today for study - patient is in follow-up and is due to be seen in May by research. Patient US of the thyroid reviewed with Telly Duncan D.O. and the ultrasound of her thyroid showed an 8 mm benign-appearing nodule. No further work-up or imaging indicated. Liza Canas RN documented in this encounter [facility] 03-29-2023 History of Present illness Narrative Opened in error documented in this encounter [facility] 03-21-2023 Miscellaneous Notes Spoke with patient. Deb Hoover LPN Message left for patient to contact office for questions. Deb Hoover LPN Relayed message to patient. She had questions regarding message Can let her know the ultrasound of her thyroid showed an 8 mm benign-appearing nodule. No further work-up or imaging indicated. Telly Duncan DO documented in this encounter [facility] 03-21-2023 Miscellaneous Notes Detailed message left for patient. Advair and Incruse substituted per EB Lauren Presley LPN Fax from [place] [employer] that [employer] JERNIG[employer] denied. They do not have a prior trial of Dulera on file for the patient and state patient must have two 30-day trials of formulary alternatives prior to approval. Formulary ICC/LABA Symbicort (OTNIO), Advair, Dulera. Also covered for triple therapy are Spiriva, Incruse. Lauren Presley LPN documented in this encounter [facility] 03-19-2023 History of Present illness Narrative PULM FUNCTION SMARTBLOCK: Provider: Georgina Morgan MD Assisting Tech: KATIE Leach Spirometry w/BD: 1 documented in this encounter [facility] 03-16-2023 History of Present illness Narrative Radiology Service Progress Note PATIENT NAME: Lata Smith DATE OF SERVICE: March 16, 2023 TIME: 3:28 PM PATIENT IDENTITY VERIFICATION COMPLETED USING TWO (2) IDENTIFIERS: Name and Date of confirmed by patient verbally. FALL SCREENING: Has the patient had 2 falls in the last year or 1 fall with injury or currently using an Ambulatory Assistive Device (Walker, Cane, Wheelchair, Crutches, etc.)? No PATIENT GENDER DATA: Female. status: : No status: NO. PATIENT RELEVANT IMPLANT DATA REVIEWED: Not Applicable RADIOLOGY DEPARTMENT: Ultrasound PERIPHERAL IV DATA: Not applicable SIGNED BY: Meenakshi Capone RDMS RVT March 16, 2023 3:28 PM documented in this encounter [facility] 03-12-2023 Miscellaneous Notes Patient was scheduled for 2 week post op left ring trigger finger release today and cancelled appointment and did not reschedule. Called and spoke with patient. Offered an appointment on Friday 03/16 with [place] but patient declined. States she removed the sutures herself and does not want to come in until her 6 week post op visit with Dr. Hassan on 04/12. documented in this encounter [facility] 02-20-2023 Miscellaneous Notes Relayed message to patient. 2 packets tonight then 1 packet daily. Telly Duncan DO Pt. Stated she hasn't taken the potassium in over a week. She will take 2 packets this evening, also informed she will not do potassium IV. Hoa Gooden LPN Can we find out how exactly she is taking potassium? Telly Duncan DO documented in this encounter [facility] 02-20-2023 History of Present illness Narrative Oncologic problem(s): 1) Stage IV, non-small cell (adenocarcinoma) lung cancer. HPI: 61-year-old lady with history of hypertension cardiovascular disease recent [place] in October 2019, status post coronary stents x3 on Plavix and aspirin who presented with worsening shortness of breath and hemoptysis for several months. Patient was seen in primary care clinic in May was treated with antibiotic without improvement. She was seen by Dr. Castillo and a CT chest revealed a lung mass and mediastinal adenopathy. She had no fever Chills, rigor, pleuritic chest pain, chest trauma. She has stable exertional dyspnea with activities of daily living, and exertional wheezing. She also complained of severe right hip pain along with pressure on her right side of her chest for couple months. Her staging PET scan on 08/03/2020 unfortunately showed metastatic disease. She had bronchoscopy and EBUS biopsy of the mediastinal lymph node on 08/19/2020. Biopsy was consistent with non-small cell, favoring adenocarcinoma the lung. She is here today to discuss treatment option for metastatic lung cancer. Patient is lives with an adult son. She is quit smoking since October after her heart attack. She denied any any weight loss since her heart attack. She has no hoarseness or dysphagia. No headaches or neurological symptoms. She has severe right hip pain secondary to metastatic disease. MRI scan of brain shows no evidence of metastatic disease. She completed palliative radiation therapy to her right hip. Current therapy: 1) Pembrolizumab. 2) Zometa. Interim history: Tolerating pembrolizumab well. No diarrhea (has IBS--unchanged symptoms). Chronic cough not as bad--hard candy helps. Smoking. Normal appetite. PMH, medications and allergies personally reviewed by me today. Any changes documented in appropriate section. ROS: Constitutional: Denies episodes of fever and night sweats. Neuro: Denies CORNELL, vertigo, dizziness and imbalance. HEENT: No recent change in voice, vision or hearing. Resp: See above. CVS: Denies exertional chest pain, PND, orthopnea and LE edema. GI: Denies dysphagia and odynophagia. Denies reflux, nausea and abdominal pain. : Denies dysuria or gross hematuria. Endo: Denies hot flashes. Denies polyuria and polydipsia. Denies heat and cold intolerance. Musculoskeletal: Chronic pain lateral right hip since radiation. Derm: Denies rash. Denies jaundice and diffuse pruritis. Heme: Denies unusual bleeding and unexplained bruising. Psych: Normal mood. PHYSICAL EXAM: Vitals: Blood pressure 135/63, pulse 78, temperature 36.3 C (97.4 F), weight 93.2 kg (205 lb 8 oz), last menstrual period 11/04/2012, SpO2 95 %. Well-appearing and in no acute distress. EYES: Sclerae are anicteric bilaterally. ENT: Oral mucosa is unremarkable. There is no sign of thrush or mucositis. Upper and lower plates. LYMPHATIC: There is no palpable cervical, supraclavicular or axillary adenopathy. RESPIRATORY: Inspiratory breath sounds are of very diminished intensity in all qureshi. No wheezes appreciated today. CARDIOVASCULAR: Rhythm is regular. ABDOMEN: The abdomen is nondistended. No tenderness. SKIN: No jaundice or rash. NEUROLOGIC: steam and power superintendent II-XII are grossly intact. No focal motor weakness. LABORATORY DATA: Component Latest Ref Rng & Units 02/20/2023 WBC 3.70 - 11.00 k/uL 5.89 RBC 3.90 - 5.20 m/uL 4.77 Hemoglobin 11.5 - 15.5 g/dL 13.5 Hematocrit 36.0 - 46.0 % 41.2 MCV 80.0 - 100.0 fL 86.4 MCH 26.0 - 34.0 pg 28.3 MCHC 30.5 - 36.0 g/dL 32.8 RDW-CV 11.5 - 15.0 % 14.6 Platelet Count 150 - 400 k/uL 183 MPV 9.0 - 12.7 fL 10.1 Neut% % 69.9 Abs Neut (ANC) 1.45 - 7.50 k/uL 4.11 Lymph% % 20.2 Abs Lymph 1.00 - 4.00 k/uL 1.19 [place]% % 6.1 Abs [place] <0.87 k/uL 0.36 Eosin% % 2.7 Abs Eosin <0.46 k/uL 0.16 Baso% % 0.8 Abs Baso <0.11 k/uL 0.05 Immature Gran % % 0.3 IMMATURE GRANS (ABS) <0.10 k/uL <0.03 NRBC /100 WBC 0.0 Absolute nRBC <0.01 k/uL <0.01 DTYPE Auto ASSESSMENT/PLAN: The patient is a 61-year-old female with a history of COPD, coronary artery disease with metastatic non-small cell lung cancer (right lower lobe-favoring adenocarcinoma) with extensive bone metastases including a large lytic lesion in the right sacrum for which she received palliative radiation. (C34.31) Cancer of lower lobe of right lung (HCC) (primary encounter diagnosis) (C79.51) Bone metastases (HCC) Assessment: PD-L1 expression 100% ROS1 & RET not detected. BRAF No variant detected. EGFR - No variant detected. HER2 (ERBB2) - No variant detected. KRAS A sequence change: [id number] ([id number]) was detected at approximately 30% allelic proportion. MET- No variant detected. -CTs reviewed. SD. Potential thyroid nodule noted. -She continues to do well on pembrolizumab. OH. Plan: -Continue with pembrolizumab after 2 years on study. -Schedule changed to pembrolizumab 400 mg IV every 42 days. -Zometa 4 mg IV every 3 months for skeletal metastases. -Repeat CBC, CMP, TSH, cortisol & office visit in 6 weeks -Repeat CT chest abdomen pelvis in 3 months. -US thyroid. 2) Hip pain secondary to right iliac lesion. -Pain is controlled Plan: -Continue ibuprofen and Percocet per palliative care. -Senokot 2 tablet twice daily & MiraLAX as needed for constipation. -Follow-up with [facility] hospice/palliative medicine 3) COPD /tobacco use Assessment: -Discussed smoking cessation. Not psychologically motivated to quit. Plan: -Continue Proventil nebulizer as needed -Follow-up with PCP for smoking cessation Portions of this documentation were copied and pasted from previous office visit notes in order to provide a cohesive continuity of the history. The note has been reviewed and edited and updated as necessary. I spent a total of 20 minutes on the date of the service which included preparing to see the patient, [id number] patient care, completing clinical documentation, obtaining and/or reviewing separately obtained history, performing a medically appropriate examination, counseling and educating the patient/family/caregiver, ordering medications, tests, or procedures, and communicating results to the patient/family/caregiver. Telly Duncan DO Cc: Fiona Durant MD. [facility] documented in this encounter [facility] 02-12-2023 History of Present illness Narrative RECIST TUMOR MEASUREMENTS IRB #: [id number] / [id number] Image Modality: CT ABD/PEL W IVCON Image Date: 02/10/2023 Date of Baseline Scan: 09/16/2020 Date of Comparison Scan: 11/13/2022 Research Nurse: Liza Canas Follow-Up Measurement Lesion A right lower lobe nodule, Lesion B lymph node,right hilar Sum Date Size (3m) Series/Image # Size (mm) Series/Image # Baseline: 09/16/2020 3.0 > 30 mm Series 9, Image 77 22 mm Series 7, Image 75 52 06/22/2021 16 mm Series 6 Image 78 No longer Visible 16 08/26/2021 14 mm Series 9 Image 79 No longer Visible 14 11/18/2021 14 mm Series 6, Image 76 No longer Visible 14 02/10/2022 16 mm Series 9, Image 82 No longer Visible 16 05/05/2022 14 mm Series 6, Image 83 No longer Visible 14 08/10/2022 14 mm Series 9, Image 81 No longer Visible 14 11/13/2022 1.3 > 13 mm Series 9, Image 78 No longer Visible 13 mm 02/10/2023 1.3 - 13 mm Series 9, Image 86 No longer Visible 13 mm * Target lesion - right lower lobe nodule, 1.3 cm x 1.0 cm, (Series 9, Image 86) List Non-Target Lesion Site: None Appearance of New Lesion: No Sum of Lesions: 1.3 cm - 13 mm Baseline: 5.2 cm - 52 mm Nacho: 1.3 cm -13 mm Response: Stable Disease Measurements have been reviewed and approved by Telly Canas RN February 12, 2023 documented in this encounter [facility] 02-09-2023 History of Present illness Narrative Radiology Service Progress Note DATE OF SERVICE: February 09, 2023 TIME: 1:59 PM PATIENT IDENTITY VERIFICATION COMPLETED USING TWO (2) STANDARD IDENTIFIERS: Name and Date of confirmed by patient verbally. FALL SCREENING: Has the patient had 2 falls in the last year or 1 fall with injury or currently using an Ambulatory Assistive Device (Walker, Cane, Wheelchair, Crutches, etc.)? No PATIENT GENDER DATA: Female. status: : No status: NO. PATIENT RELEVANT IMPLANT DATA REVIEWED: Yes ALLERGIES: Reviewed and unchanged CONTRAST ALLERGY: NO. EXAM: CT -CONTRAST INDUCED NEPHROPATHY RISK FACTORS: Patient age > 60 years CREATININE: Creatinine Date Value Ref Range Status 01/09/2023 0.80 0.58 - 0.96 mg/dL Final 11/24/2022 0.75 0.58 - 0.96 mg/dL Final 10/17/2022 0.80 0.58 - 0.96 mg/dL Final Estimated Glomerular Filtration Rate Date Value Ref Range Status 01/09/2023 84 >=60 mL/min/1.73m Final Comment: Estimated Glomerular Filtration Rate (eGFR) is calculated using the 2020 CKD-EPI creatinine equation. This equation utilizes serum creatinine, sex, and age as parameters. The creatinine assay has traceable calibration to isotope dilution-mass spectrometry. Refer to KDIGO guidelines for clinical interpretation. In patients with unstable renal function, e.g. those with acute kidney injury, the eGFR may not accurately reflect actual GFR. eGFR- Date Value Ref Range Status 11/22/2021 >60 Final P.O.C.T. RESULTS: POC done: Yes, See Lab Tab February 09, 2023 TREATMENT: N/A PERIPHERAL IV DATA: Ambulatory: A peripheral IV was started in the Left antecubital site with a Angio cath: 22 gauge. RADIOLOGY DEPARTMENT: CT; Exam(s) Completed: Chest Abdomen Pelvis SIGNATURE: RT Pete(R) PATIENT NAME: Lata Smith DATE: February 09, 2023 TIME: 1:59 PM documented in this encounter [facility] 02-07-2023 Miscellaneous Notes Surgery has been scheduled as requested. Patient called and she will move surgery date to 02/26/2023. Surgical request completed. Post op appointments have been scheduled and mailed to patient. I left another message for patient to contact office. [address] message sent as well. Surgical request completed for left ring trigger finger release at [facility] on 03/22/2023. documented in this encounter [facility] 02-07-2023 Miscellaneous Notes I spoke with patient on the phone. See telephone encounter. documented in this encounter [facility] 02-01-2023 History of Present illness Narrative SUBJECTIVE: ALPHA-1 ANTITRYPSIN DEFICIENCY SCREENING Never done MAMMOGRAM due on 08/11/2017 PNEUMOCOCCAL(2 - PCV) due on 08/29/2018 DTAP,TDAP,TD(2 - Td or Tdap) due on 12/25/2021 COLORECTAL CANCER SCREENING due on 11/21/2022 JOSELO Smith is a 60 year old female.ACTIVE PROBLEM LIST Degeneration of Intervertebral Disc, Site Unspecified Asthma Tobacco Use Disorder Allergic Rhinitis, Cause Unspecified Irritable Bowel Syndrome Class 2 Obesity Due to Excess Calories Without Serious Comorbidity With Body Mass Index (Bmi) of 37.0 to 37.9 in Adult Esophageal Reflux Migraine Without Aura Fibromyalgia Smoker History of Mcelroy's Palsy St Elevation Myocardial Infarction Involving Right Coronary Artery (Hcc) S/P Coronary Artery Stent Placement Thoracic Lymphadenopathy Lung Nodule Chronic Anticoagulation Cancer of Trachea, Bronchus, and Lung (Hcc) Malignant Neoplasm Metastatic to Bone (Hcc) Examination of Participant in Clinical Trial Cancer of Lower Lobe of Right Lung (Hcc) Non-Small Cell Lung Cancer Metastatic to Bone (Hcc) Iliac Bone Pain Simple Chronic Bronchitis (Hcc) Pulmonary Emphysema (Hcc) She was seen by Kathy almaraz CNP January 25, 2023 for cough, purulent sputum x3 weeks. Noted to have headache sore throat sinus congestion fever shortness of breath and wheezing. She was treated with levofloxacin 500 mg oral daily, prednisone 10 mg tapering dose and benzonatate and albuterol nebulizer solution. Today reports feeling somewhat improved but not yet back to baseline. Cough: less than last week, productive purulent Wheeze: yes mostly at night Shortness of breath: yes more than baseline Sputum production: remains increased but less than last week Fever: perceived Smoking: current smoker, wants to quit. Would like to use Chantix. No current imaging administrator outside of . Followed by [facility] for CAD. Followed by Dr Duncan and Carrie Preciado CNP for non-small cell cancer of right lower lobe cancer. Last seen in pulmonology 2019. Review of Systems Constitutional: Negative. Respiratory: Positive for cough, shortness of breath and wheezing. Objective BP 120/58 Pulse 75 Resp 16 Wt 94.3 kg (208 lb) LMP 11/04/2012 SpO2 95% BMI 40.29 kg/m Physical Exam Vitals and nursing note reviewed. Constitutional: Appearance: Normal appearance. HENT: Head: Normocephalic and atraumatic. Mouth/Throat: Lips: [place]. Mouth: Mucous membranes are moist. Eyes: Conjunctiva/sclera: Conjunctivae normal. Neck: Thyroid: No thyromegaly. Vascular: Normal carotid pulses. No JVD. Cardiovascular: Rate and Rhythm: Normal rate and regular rhythm. Pulses: Carotid pulses are 2+ on the right side and 2+ on the left side. Radial pulses are 2+ on the right side and 2+ on the left side. Heart sounds: Normal heart sounds. Pulmonary: Effort: Pulmonary effort is normal. Breath sounds: Wheezing present. Comments: decreased breath sounds bases Skin: General: Skin is warm and dry. Neurological: Mental Status: She is alert. Mental status is at baseline. ALLERGIES Allergen Reactions Augmentin [Amoxicil* Diarrhea Tolerates plain penicillins such as amoxicillin Penicillins Hives Also GI upset. MEDICATIONS albuterol (PROVENTIL) 2.5 mg /3 mL (0.083 %) nebulizer solution Use 3 mL via nebulizer every 6 hours as needed for wheezing/shortness of breath. 1 vial contains 3 ml. levoFLOXacin (LEVAQUIN) 500 mg tablet Take 1 tablet by mouth once daily for 7 days. predniSONE (DELTASONE) 10 mg tablet Take 4 tabs daily for 3 days, then 2 tabs daily for 3 days, then 1 tab daily for 3 days with food. multivitamin tablet Take 1 tablet by mouth once daily. aspirin, enteric coated (ASPIRIN, ENTERIC COATED) 81 mg EC tablet Take 1 tablet by mouth once daily. albuterol HFA (VENTOLIN HFA) 90 mcg/actuation inhaler Inhale 2 Puffs as instructed every 4 hours as needed for Wheezing/Shortness of Breath. Do not replace with ProAir. diclofenac (VOLTAREN) 1 % topical gel Apply 2 g to affected area four times daily as needed (upper extremity joint(s)). aluminum-magnesium hydroxide-simethicone (MAALOX,MYLANTA,MAG-AL PLUS) 200-200-20 mg/5 mL suspension Take 15 mL by mouth every 6 hours as needed. losartan (COZAAR) 25 mg tablet Take 1 tablet by mouth once daily. senna (SENOKOT) 8.6 mg tab Take 2 tablets by mouth twice daily. promethazine (PHENERGAN) 25 mg tablet Take 1 tablet by mouth every 6 hours as needed for nausea/vomiting (Patient states she is using prior to Chantix dose for nausea). ibuprofen (MOTRIN) 800 mg tablet Take 1 tablet by mouth every 8 hours as needed for Pain. (not for migraines and not in same day as naprosyn) Take with food. hydroCHLOROthiazide (HYDRODIURIL, ESIDRIX) 25 mg tablet Take 1 tablet by mouth once daily as needed (fluid retention/leg swelling). verapamil ER (VERELAN) 120 mg 24 hr capsule Take 1 capsule by mouth once daily. oxyCODONE-acetaminophen (PERCOCET) 7.5-325 mg tablet Take 1 tablet by mouth every 8 hours as needed for pain. rosuvastatin (CRESTOR) 40 mg tablet Take 1 tablet by mouth once daily. traZODone (DESYREL) 50 mg tablet Take 1 tablet by mouth at bedtime as needed. potassium chloride (KLOR-CON) 20 mEq packet Take 20 mEq by mouth twice daily. (Patient taking differently: Take 20 mEq by mouth twice daily. Alternates, 2 packets one day, skips a day, 1 packet a day.) naloxone 4 mg/actuation nasal spray (NARCAN) Use 1 spray in one nostril as needed for overdose. May repeat every 2 to 3 min in alternating nostrils until medical assistance is available rizatriptan (MAXALT) 10 mg tablet Take 10 mg by mouth as needed. May repeat in 2 hours if needed cyclobenzaprine (FLEXERIL) 10 mg tablet Take 10 mg by mouth twice daily as needed for Muscle Spasm. fluticasone (FLONASE) 50 mcg/actuation nasal spray Use 2 Sprays in each nostril once daily. Rinse mouth after use. simethicone, chewable ([place]-ACID GAS RELIEF) 80 mg chewable tablet Take 1 tablet by mouth every 6 hours as needed. polyethylene glycol 3350 (MIRALAX) 17 gram/dose powder Take 17 g by mouth once daily. NOT NEEDING NOW Nebulizer NEBULIZER FOR HOME USE with supplies. DX: (J45.40) Moderate persistent asthma without complication (primary encounter diagnosis) docusate sodium (COLACE) 100 mg capsule Take 1 capsule by mouth once daily as needed. benzonatate (TESSALON PERLE) 100 mg capsule Take 2 capsules by mouth three times daily as needed for cough. Take 1-3 capsules by mouth every 6-8 hours as needed. 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 COPD (chronic obstructive pulmonary disease) (HCC) Degeneration of intervertebral disc, site unspecified Depressive disorder in remission Depressive disorder, not elsewhere classified Esophageal reflux Fibromyalgia HEPATITIS B infection in the past 02/07/2008 No evidence of chronic infection or cirrhosis History of Mcelroy's palsy 09/09/2017 Hypertension Irritable bowel syndrome Migraine without aura Obesity, unspecified Other forms of migraine ST elevation myocardial infarction involving right coronary artery (HCC) 06/28/2020 Tobacco use disorder Unspecified asthma(493.90) Viral hepatitis B without mention of hepatic coma, acute or unspecified, without mention of hepatitis delta Chronic hepatitis B Social History Tobacco Use Smoking status: Every Day Packs/day: 1.00 Years: 40.00 Pack years: 40.00 Types: Cigarettes Smokeless tobacco: Never Tobacco comments: Pt has cut back to one pack weekly. 10/24/22--2 packs per week and working on quitting. Noted smoking causes wheezing Vaping Use Vaping Use: Former Substance Use Topics Alcohol use: Yes Comment: Occasional glass of wine. A few per month Drug use: Yes Types: Marijuana Comment: every 2-3 days Component Latest Ref Rng & Units 08/08/2021 08/29/2021 09/19/2021 WBC 3.70 - 11.00 k/uL 6.41 5.67 5.69 RBC 3.90 - 5.20 m/uL 4.59 4.78 4.65 Hemoglobin 11.5 - 15.5 g/dL 13.0 13.9 13.3 Hematocrit 36.0 - 46.0 % 40.4 43.3 40.5 MCV 80.0 - 100.0 fL 88.0 90.6 87.1 MCH 26.0 - 34.0 pG 28.3 29.1 28.6 MCHC 30.5 - 36.0 g/dL 32.2 32.1 32.8 RDW-CV 11.5 - 15.0 % 15.0 15.0 14.6 Platelet Count 150 - 400 k/uL 181 161 186 MPV 9.0 - 12.7 fL 10.4 11.3 10.1 Neut% % 67.9 67.4 64.2 Abs Neut (ANC) 1.45 - 7.50 k/uL 4.33 3.80 3.64 Lymph% % 20.7 22.0 23.7 Abs Lymph 1.00 - 4.00 k/uL 1.33 1.25 1.35 [place]% % 7.2 6.2 6.7 Abs [place] <0.87 k/uL 0.46 0.35 0.38 Eosin% % 3.3 3.2 4.2 Abs Eosin <0.46 k/uL 0.21 0.18 0.24 Baso% % 0.9 1.2 1.2 Abs Baso <0.11 k/uL 0.06 0.07 0.07 Nucleated Reds 0 /100 WBC 0.0 0.0 0.0 Absolute nRBC <0.01 k/uL <0.01 <0.01 <0.01 Diff Type Auto Diff Auto Diff Auto Diff Protein, Total 6.3 - 8.0 g/dL 7.1 7.1 6.6 Albumin 3.9 - 4.9 g/dL 3.9 4.1 3.8 (L) Calcium 8.5 - 10.2 mg/dL 9.0 9.1 8.6 Bilirubin, Total 0.2 - 1.3 mg/dL 0.2 0.2 0.2 Alkaline Phosphatase 34 - 123 U/L 103 107 118 AST 13 - 35 U/L 11 (L) 12 (L) 12 (L) Glucose 74 - 99 mg/dL 106 (H) 114 (H) 113 (H) BUN 7 - 21 mg/dL 7 14 8 Creatinine 0.58 - 0.96 mg/dL 0.70 0.74 0.85 Sodium 136 - 144 mmol/L 140 137 138 Potassium 3.7 - 5.1 mmol/L 3.5 (L) 4.2 3.7 Chloride 97 - 105 mmol/L 107 (H) 103 105 CO2 22 - 30 mmol/L 20 (L) 22 23 Anion Gap 9 - 18 mmol/L 13 12 10 ALT 7 - 38 U/L 10 12 11 eGFR- >60 >60 >60 eGFR-All Other Races . >60 >60 >60 TSH 0.270 - 4.200 uU/mL 1.550 3.180 2.850 Amylase 30 - 104 U/L 60 68 59 Lipase 16 - 61 U/L 36 31 34 Cortisol 4.8 - 19.5 ug/dL 9.8 5.5 5.6 ASSESSMENT/PLAN: 1. COPD with exacerbation (HCC) - ICD9: 491.21, ICD10: J44.1 (primary diagnosis) - BENZONATATE 100 MG CAPSULE - LEVOFLOXACIN 750 MG TABLET - CONSULT TO PULM/CRITICAL CARE 2. Pulmonary emphysema, unspecified emphysema type (HCC) - ICD9: 492.8, ICD10: J43.9 - LEVOFLOXACIN 750 MG TABLET - CONSULT TO PULM/CRITICAL CARE 3. Simple chronic bronchitis (HCC) - ICD9: 491.0, ICD10: J41.0 - LEVOFLOXACIN 750 MG TABLET - CONSULT TO PULM/CRITICAL CARE 4. Cigarette smoker - ICD9: 305.1, ICD10: F17.210 Cessation endorsed. - VARENICLINE 0.5 MG (11)-1 MG (42) TABLETS IN A DOSE PACK - VARENICLINE 1 MG TABLET She notes feeling improved with current treatments but not yet back to baseline. Will extend treatment with levofloxacin, increased dose. Continue with benzonatate at increased dose. Notes using albuterol 3-4 times per day. Endorse using every 4-6 hours as needed for cough wheeze and shortness of breath. Declines 1 week follow-up, she will let us know if not feeling improved. 6-month follow-up.PCP Bebe Flores APRN.CADEN Medical Decision Making: Problems: Low: Acute, uncomplicated illness or injury Risk: Moderate: Drug management Medical Decision Making Level: 3 - Low documented in this encounter [facility] 01-30-2023 Miscellaneous Notes Patient is scheduled, 02/01/2023. Refill will be done at the appt. Brandi Edgar LPN Left a message for pt to call the office and ask to speak to a nurse. Maris Enriquez LPN Needs 3 month follow ups scheduled--nothing in schedule since October. Needs seen for controlled substance RXs. Can add to end of day if really needed to The following approved medication requests have been transmitted electronically. Requested Prescriptions Pending Prescriptions Disp Refills diclofenac (VOLTAREN) 1 % topical gel 100 g 1 Sig: Apply 2 g to affected area four times daily as needed (upper extremity joint(s)). Signed Prescriptions Disp Refills multivitamin tablet 30 tablet 11 Sig: Take 1 tablet by mouth once daily. Authorizing Provider: FIONA DURANT aspirin, enteric coated (ASPIRIN, ENTERIC COATED) 81 mg EC tablet 30 tablet 11 Sig: Take 1 tablet by mouth once daily. Authorizing Provider: FIONA DURANT albuterol HFA (VENTOLIN HFA) 90 mcg/actuation inhaler 18 g 5 Sig: Inhale 2 Puffs as instructed every 4 hours as needed for Wheezing/Shortness of Breath. Do not replace with ProAir. Authorizing Provider: FIONA DURANT MD Please see below. Patient requesting the acetaminophen-Hydrocodone 5-500. Last prescribed in 2012 for IBS pain Patient requesting the following medication: acetaminophen-HYDROcodone 5-500 mg tablet. System will not allow me to refill. Patient has been identified by name and date of : Yes Requested Prescriptions Pending Prescriptions Disp Refills multivitamin tablet 30 tablet 11 Sig: Take 1 tablet by mouth once daily. aspirin, enteric coated (ASPIRIN, ENTERIC COATED) 81 mg EC tablet Sig: Take 1 tablet by mouth once daily. albuterol HFA (VENTOLIN HFA) 90 mcg/actuation inhaler 18 g 5 diclofenac (VOLTAREN) 1 % topical gel 100 g 1 Sig: Apply 2 g to affected area four times daily as needed (upper extremity joint(s)). RX INSTRUCTIONS: Patient aware RX will be sent to pharmacy. No need to notify patient. Oneida Preston documented in this encounter [facility] 01-30-2023 Miscellaneous Notes Pt notified of provider message. Marybel Pérez LPN Called and left a voicemail for the Patient to call back and ask for a nurse to receive the providers message. Barbie Flynn, RN With improvement no need to xray at this time. Can be reconsidered at follow up. Thank you Kathy Almaraz APRN.JAYLON Patient returned call and given provider's message. Patient reports she is feeling a lot better, much improved. Reports she is only coughing a little now. Left message for return call. Please see how patient is feeling? Any improvement? Thank you Kathy Almaraz APRN.CHANGE MANAGEMENT DIRECTOR Pt called in and reports she was told to get an x-ray today. She reports she waited downstairs for an hour and was never called. No order was placed for an x-ray. Pt reports she can come in tomorrow to get done. Please call Pt if provider would like an x-ray done. documented in this encounter [facility] 01-25-2023 History of Present illness Narrative CC: Patient presents with: Cough: Productive cough x 2 weeks HPI Lata Smith is a 62 year old female who presents today for concerns of cough. 3 weeks ago started with cough, green sputum, and metal taste in her mouth. Started to improve but over the last week has returned again. Currently with headaches, sore throat, slight sinus congestion, persistent cough producing green sputum that keep her up at night, feverish with chills, shortness of breath, and wheezing. Denies ear pain, chest pressure, edema, or palpitations. Has been taking tylenol with codeine for the cough but does not seem to help. History of asthma, COPD, lung cancer currently which she is on keytruda a clinical trial medication, and smokes average of 1 ppd. Currently using inhaler often throughout the day. Has lost nebulizer after moving so does not have one to use currently. Has not been on steroids since 2019 REVIEW OF SYSTEMS General: See HPI Respiratory: See HPI Cardiovascular: no chest pain, no chest pressure, no palpitations, and no swelling GI: No nausea, vomiting, or diarrhea Neurologic: No weakness, numbness, tingling, syncope. 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 Hypertension Irritable bowel syndrome Migraine without aura Obesity, unspecified Other forms of migraine ST elevation myocardial infarction involving right coronary artery (HCC) 06/28/2020 Tobacco use disorder Unspecified asthma(493.90) Viral hepatitis B without mention of hepatic coma, acute or unspecified, without mention of hepatitis delta Chronic hepatitis B PAST SURGICAL HISTORY Procedure Laterality Date ABDOMINAL SURGERY HX APPENDECTOMY 12/2015 APPENDECTOMY HX CHOLECYSTECTOMY Cholecystectomy COLONOSCOPY FLX DX W/COLLJ SPEC WHEN PFRMD 11/20/2012 Colonoscopy F TOTAL ABDOMINAL HYSTERECTOMY 05/2013 HEART SURGERY HX INCISE FINGER TENDON SHEATH Right 07/21/2021 Right ring trigger finger release LAPAROSCOPIC APPENDECTOMY 02/17/2015 LIG/TRNSXJ FLP TUBE ABDL/VAG APPR UNI/BI 1982 Tubal ligation NEUROPLASTY &/TRANSPOS MEDIAN NRV CARPAL TUNNE 04/29/2004 Carpal tunnel decomp,left NEUROPLASTY &/TRANSPOS MEDIAN NRV CARPAL TUNNE 05/17/2004 Carpal tunnel decomp, right NOVASURE PAST SURGICAL HISTORY OF cardiac stents VAGINAL HYSTERECTOMY ALLERGIES Augmentin [Amoxicillin-Pot Clavulanate] and Penicillins MEDICATIONS multivitamin tablet Take 1 tablet by mouth once daily. aspirin, enteric coated (ASPIRIN, ENTERIC COATED) 81 mg EC tablet Take 1 tablet by mouth once daily. albuterol HFA (VENTOLIN HFA) 90 mcg/actuation inhaler Inhale 2 Puffs as instructed every 4 hours as needed for Wheezing/Shortness of Breath. Do not replace with ProAir. diclofenac (VOLTAREN) 1 % topical gel Apply 2 g to affected area four times daily as needed (upper extremity joint(s)). aluminum-magnesium hydroxide-simethicone (MAALOX,MYLANTA,MAG-AL PLUS) 200-200-20 mg/5 mL suspension Take 15 mL by mouth every 6 hours as needed. losartan (COZAAR) 25 mg tablet Take 1 tablet by mouth once daily. senna (SENOKOT) 8.6 mg tab Take 2 tablets by mouth twice daily. iv contrast (will be provided with radiology test) CT ABD/PEL -Inject, intravenously, once for 1 dose.No IV access, insert saline lock prior to the beginning of sedation, infusion, injection of imaging exam. Discontinue saline lock post exam. If Pt. has a central line or IVAD, may access for administration according to line specific nursing protocol. Once exam is complete flush line and de-access according to line specific nursing protocol in the CT contrast administration guidelines link. enteric contrast (will be provided with radiology test) For CT ABD/PEL W IVCON Routine order Administer, As Directed One Time Only, via Oral, Rectal, both Oral and Rectal, Enteric Tube, Stoma or Indwelling Catheter, Enteric Contrast as designated per enteric contrast guidelines promethazine (PHENERGAN) 25 mg tablet Take 1 tablet by mouth every 6 hours as needed for nausea/vomiting (Patient states she is using prior to Chantix dose for nausea). ibuprofen (MOTRIN) 800 mg tablet Take 1 tablet by mouth every 8 hours as needed for Pain. (not for migraines and not in same day as naprosyn) Take with food. hydroCHLOROthiazide (HYDRODIURIL, ESIDRIX) 25 mg tablet Take 1 tablet by mouth once daily as needed (fluid retention/leg swelling). verapamil ER (VERELAN) 120 mg 24 hr capsule Take 1 capsule by mouth once daily. albuterol HFA (VENTOLIN HFA) 90 mcg/actuation inhaler Inhale 2 Puffs as instructed every 4 hours as needed. oxyCODONE-acetaminophen (PERCOCET) 7.5-325 mg tablet Take 1 tablet by mouth every 8 hours as needed for pain. rosuvastatin (CRESTOR) 40 mg tablet Take 1 tablet by mouth once daily. traZODone (DESYREL) 50 mg tablet Take 1 tablet by mouth at bedtime as needed. benzonatate (TESSALON PERLE) 100 mg capsule Take 1-3 capsules by mouth every 6-8 hours as needed. potassium chloride (KLOR-CON) 20 mEq packet Take 20 mEq by mouth twice daily. (Patient taking differently: Take 20 mEq by mouth twice daily. Alternates, 2 packets one day, skips a day, 1 packet a day.) naloxone 4 mg/actuation nasal spray (NARCAN) Use 1 spray in one nostril as needed for overdose. May repeat every 2 to 3 min in alternating nostrils until medical assistance is available rizatriptan (MAXALT) 10 mg tablet Take 10 mg by mouth as needed. May repeat in 2 hours if needed cyclobenzaprine (FLEXERIL) 10 mg tablet Take 10 mg by mouth twice daily as needed for Muscle Spasm. albuterol (PROVENTIL) 2.5 mg /3 mL (0.083 %) nebulizer solution Use 3 mL via nebulizer every 6 hours as needed for Wheezing/Shortness of Breath. 1 vial contains 3 ml. fluticasone (FLONASE) 50 mcg/actuation nasal spray Use 2 Sprays in each nostril once daily. Rinse mouth after use. simethicone, chewable ([place]-ACID GAS RELIEF) 80 mg chewable tablet Take 1 tablet by mouth every 6 hours as needed. polyethylene glycol 3350 (MIRALAX) 17 gram/dose powder Take 17 g by mouth once daily. NOT NEEDING NOW Nebulizer NEBULIZER FOR HOME USE with supplies. DX: (J45.40) Moderate persistent asthma without complication (primary encounter diagnosis) docusate sodium (COLACE) 100 mg capsule Take 1 capsule by mouth once daily as needed. FAMILY HISTORY Problem Relation Age of Onset Blood Disease Mother Alzheimer's Disease Father other (lung cancer) Brother 3rd brother, small cell Diabetes Maternal Grandmother Cerebral Embolism Brother oldest brother, aneurysm Cancer Brother 2nd brother, some type of skin cancer Social History Tobacco Use Smoking status: Every Day Packs/day: 1.00 Years: 40.00 Pack years: 40.00 Types: Cigarettes Smokeless tobacco: Never Tobacco comments: Pt has cut back to one pack weekly. 10/24/22--2 packs per week and working on quitting. Noted smoking causes wheezing Vaping Use Vaping Use: Former Substance Use Topics Alcohol use: Yes Comment: Occasional glass of wine. A few per month Drug use: Yes Types: Marijuana Comment: every 2-3 days PHYSICAL EXAM BP 128/70 Pulse 89 Temp 36.4 C (97.6 F) (Temporal) Resp 16 Wt 93.4 kg (206 lb) LMP 11/04/2012 SpO2 96% BMI 39.90 kg/m General Appearance: well appearing, in no acute distress, alert Skin: Skin color, texture, turgor normal for age; Eyes: conjunctiva pink and moist, no icterus, sclera white, non-injected Lungs: expiratory wheezes throughout with diminished bases bilaterally Heart: RRR without murmur, gallop, or rubs. No ectopy Health maintenance reviewed with patient: ALPHA-1 ANTITRYPSIN DEFICIENCY SCREENING Never done MAMMOGRAM due on 08/11/2017 PNEUMOCOCCAL(2 - PCV) due on 08/29/2018 DTAP,TDAP,TD(2 - Td or Tdap) due on 12/25/2021 COLORECTAL CANCER SCREENING due on 11/21/2022 SHINGRIX VACCINE(1 of 2) due on 07/19/2023 ANNUAL PCP TEAM CHRONIC DISEASE VISIT due on 10/24/2023 DIABETES SCREEN due on 01/09/2026 LIPID SCREEN due on 12/15/2026 SPIROMETRY Completed INFLUENZA Completed DEPRESSION ASSESSMENT Completed HEPATITIS C SCREENING Completed HIV SCREENING Completed PAP TESTING Discontinued HPV TESTING Discontinued COVID-19 VACCINE Discontinued ASSESSMENT/PLAN: 1. COPD with exacerbation (HCC) - ICD9: 491.21, ICD10: J44.1 - with lung sounds possibly pneumonia. Treating with prednisone, levaquin, reordering nebulizer treatment, and refilling benzonatate for the cough. Reached out to oncology and neither have reported concerns with keytruda. - ALBUTEROL SULFATE 2.5 MG/3 ML (0.083 %) SOLUTION FOR NEBULIZATION - NEBULIZER, WITH COMPRESSOR - follow up next week. 2. Acute cough - ICD9: 786.2, ICD10: R05.1 As above 3. Wheezing - ICD9: 786.07, ICD10: R06.2 See #1 4. Shortness of breath - ICD9: 786.05, ICD10: R06.02 See #1 Prescription instructions reviewed with patient as applicable. Potential red flag symptoms discussed with the patient. Reviewed appropriate action plan to take if red flag symptoms occur. Patient agreeable to treatment plan. Kathy Almaraz APRN.CNP documented in this encounter [facility] 01-09-[address] scheduled and patient informed documented in this encounter [facility] 01-09-2023 History of Present illness Narrative Chief Complaint Patient presents with: Established Patient HPI: Lata Smith is a 62 year old female who presents here today for evaluation for treatment tomorrow. Per Dr. Duncan's previous note: H/o hypertension cardiovascular disease recent [place] in October 2019, status post coronary stents x3 on Plavix and aspirin who presented with worsening shortness of breath and hemoptysis for several months. Patient was seen in primary care clinic in May was treated with antibiotic without improvement. She was seen by Dr. Castillo and a CT chest revealed a lung mass and mediastinal adenopathy. She had no fever Chills, rigor, pleuritic chest pain, chest trauma. She has stable exertional dyspnea with activities of daily living, and exertional wheezing. She also complained of severe right hip pain along with pressure on her right side of her chest for couple months. Her staging PET scan on 08/03/2020 unfortunately showed metastatic disease. She had bronchoscopy and EBUS biopsy of the mediastinal lymph node on 08/19/2020. Biopsy was consistent with non-small cell, favoring adenocarcinoma the lung. She is here today to discuss treatment option for metastatic lung cancer. Patient is lives with an adult son. She is quit smoking since October after her heart attack. She denied any any weight loss since her heart attack. She has no hoarseness or dysphagia. No headaches or neurological symptoms. She has severe right hip pain secondary to metastatic disease. MRI scan of brain shows no evidence of metastatic disease. She completed palliative radiation therapy to her right hip. Current therapy: 1) Pembrolizumab. 2) Zometa. Appetite:Eh. Energy level:Eh, it's there at times. Denies fevers. Mouth:denies sores Resp:+cough/sob -stable, h/o COPD Cardiac:denies chest pain/palpitations GI:denies abd pain, n/v, moving bowels regularly :denies dysuria/hematuria Extrem:chronic low back pain Neuro:denies symptoms of neuropathy Skin:denies rashes Heme:denies bleeding The ROS is otherwise negative. Past medical history, appointments, medications, allergies reviewed. No changes. EXAM: BP 143/71 Pulse 88 Temp 36.4 C (97.6 F) Wt 95.5 kg (210 lb 8 oz) LMP 11/04/2012 SpO2 92% BMI 40.77 kg/m APPEARANCE Well appearing, alert, in no acute distress, well-hydrated, well nourished. HEART RRR with normal S1 and S2, no murmurs LUNG clear to auscultation although diminished throughout LYMPH NODES No cervical lymphadenopathy, No supraclavicular lymphadenopathy, and No axillary lymphadenopathy. ABDOMEN bowel sounds normoactive, soft, non-tender EXTREMITIES RLE No edema, LLE +edema NEURO Awake, alert and oriented x 3, Normal gait, and No involuntary motions. SKIN Skin color, texture, turgor normal, no suspicious rashes or lesions LABS: Component Latest Ref Rng & Units 10/17/2022 11/24/2022 01/09/2023 WBC 3.70 - 11.00 k/uL 6.71 7.74 7.00 RBC 3.90 - 5.20 m/uL 4.77 4.82 4.86 Hemoglobin 11.5 - 15.5 g/dL 13.5 13.7 14.0 Hematocrit 36.0 - 46.0 % 41.6 41.2 42.7 MCV 80.0 - 100.0 fL 87.2 85.5 87.9 MCH 26.0 - 34.0 pg 28.3 28.4 28.8 MCHC 30.5 - 36.0 g/dL 32.5 33.3 32.8 RDW-CV 11.5 - 15.0 % 14.4 14.6 14.5 Platelet Count 150 - 400 k/uL 204 217 215 MPV 9.0 - 12.7 fL 9.8 9.8 10.4 Neut% % 71.8 67.4 71.8 Abs Neut (ANC) 1.45 - 7.50 k/uL 4.81 5.22 5.03 Lymph% % 18.8 22.1 18.4 Abs Lymph 1.00 - 4.00 k/uL 1.26 1.71 1.29 [place]% % 6.1 7.1 5.7 Abs [place] <0.87 k/uL 0.41 0.55 0.40 Eosin% % 2.2 2.2 2.6 Abs Eosin <0.46 k/uL 0.15 0.17 0.18 Baso% % 0.7 0.8 0.9 Abs Baso <0.11 k/uL 0.05 0.06 0.06 Immature Gran % % 0.4 0.4 0.6 IMMATURE GRANS (ABS) <0.10 k/uL 0.03 0.03 0.04 NRBC /100 WBC 0.0 0.0 0.0 Absolute nRBC <0.01 k/uL <0.01 <0.01 <0.01 DTYPE Auto Auto Auto CMP/TSH/T4/Cortisol: Pending ASSESSMENT/PLAN: 1. Cancer of lower lobe of right lung (HCC) - ICD9: 162.5, ICD10: C34.31 (primary diagnosis) Stage IV, non-small cell (adenocarcinoma) lung cancer. H/o COPD, coronary artery disease with metastatic non-small cell lung cancer (right lower lobe-favoring adenocarcinoma) with extensive bone metastases including a large lytic lesion in the right sacrum for which she received palliative radiation. - Overall tolerating keytruda well. - Reviewed CBC with pt. - CMP/TSH/T4/Cortisol pending. - Continue current medications. - Continue zometa every 3 months. - US LLE soon. - Proceed as scheduled tomorrow for keytruda pending all labs. - Follow up as scheduled otherwise. - Pt. aware to call office with any questions/concerns. The patient indicates understanding of these issues and agrees with the plan. All documentation from previous visit of 11/24/22-Dr. Duncan was copied and pasted, documentation has been reviewed and edited as necessary for today's visit. Carrie Preciado APRN.CNP documented in this encounter [facility] 01-09-2023 History of Present illness Narrative IRB#: [id number], [facility]# [id number]: A Randomized, Phase III Study of Firstline Immunotherapy alone or in Combination with Chemotherapy in Induction/Maintenance or Postprogression in Advanced Nonsquamous Non-Small Cell Lung Cancer (NSCLC) with Immunobiomarker SIGNature-driven Analysis IC signed 09/13/2020 Randomized 09/22/2020 to treatment arm A: 1st line [id number] (pembrolizumab) followed by 2nd line Pemetrexed/Carboplatin. Study ID: [id number] Patient off study treatment protocol 10/17/2022 - since patient was supposed to end Cycle 36 - John wanted patient to continue with treatment outside of protocol. Pt examined by Carrie Preciado APRN, JAYLON on 01/09/2023 in anticipation of new treatment schedule. Patient doing well with second line therapy - Patient graded for AE's this appointment to end out protocol, but every appointment forward it is not required. Patient feeling less sore and fatigued. Patient down to a pack a week and vapes occasionally, but has not been drinking. Patient encouraged to reduce intake. Patient managing pain with hip with palliative care still and feels this has improved. PS/KPS completed by - 90 10/17/2022 Creatinine Clearance: 111 mL/min (No longer needed moving forward) Quality of life questionnaire completed per protocol: Not Required per trial. Clinical trial draw completed per protocol: Not required until progression. VS completed per protocol: Yes CT Schedule Most Recent 11/13/2022 - RECIST Abstract complete Due Next Due by 02/11/2023 01/09/2023 Weight 95.5 kg (210 lb 8 oz) BSA 0 Resp 18 Pulse Ox 92% on RA BP 143/71 Temp 36.4 C (97.6 F) BMI 0 Pulse 88 Concomitant medications reviewed per protocol: Yes Current Outpatient Medications Indication: Start date: Stop date: Medication Instructions albuterol (PROVENTIL) 2.5 mg, NEBULIZATION -UNSPEC, EVERY 6 HOURS NEEDED, 1 vial contains 3 ml. Asthma 20 years ago hasn't used in over a year albuterol HFA (VENTOLIN HFA) 90 mcg/actuation inhaler 2 Puffs, INHALATION, EVERY 4 HOURS NEEDED Asthma 20 years ago aspirin, enteric coated (ASPIRIN LOW DOSE) 81 mg, ORAL, DAILY Hx of [place] 10/2019 clopidogrel (PLAVIX) 75 mg, ORAL, DAILY Hx of [place] 10/2019 diclofenac sodium (VOLTAREN) 4 g, TOPICAL, 4 TIMES DAILY NEEDED Osteoarthritis 06/28/2020 docusate sodium (COLACE) 100 mg, ORAL, ONCE DAILY NEEDED Constipation 05/23/2013 esomeprazole (NEXIUM) 20 mg, ORAL, DAILY, (insurance states it covers Nexium OTC 20 mg) Esophageal reflux 06/06/2004 10/06/2021 fluticasone (FLONASE) 50 mcg/actuation nasal spray Use 2 Sprays in each nostril once daily. Rinse mouth after use. allergic rhinitis 08/29/2004 lisinopril (ZESTRIL, PRINIVIL) 5 mg, ORAL, DAILY Hx of [place] 10/2019 morphine SR (MS CONTIN) 30 mg, ORAL,EVERY 8 HOURS FOR PAIN. hip pain 09/10/2020 11/04/2020 Nebulizer NEBULIZER FOR HOME USE with supplies. DX: (J45.40) Moderate persistent asthma without complication (primary encounter diagnosis) asthma Patient has not been taking polyethylene glycol 3350 (MIRALAX) 17 g, ORAL, DAILY, NOT NEEDING NOW Constipation 05/23/2013 Maxalt 10 mg tab, 1 tab by mouth as needed, may repeat in 2 hours if needed Migraines 06/25/2013 potassium chloride ER (K-DUR, KLOR-CON) 20 mEq tablet 20 mEq, ORAL, one tab EOD and two tabs EOD per patient Low K+ 10/27/2020 Patient reports only taking one tablet daily 3-4 days per week (06/27/21) rosuvastatin (CRESTOR) 40 mg, ORAL, DAILY Dyslipidemia 02/27/2020 simethicone, chewable ([place]-ACID GAS RELIEF(SIMETHICON)) 80 mg, ORAL, EVERY 6 HOURS NEEDED Irritable bowel 10/16/2012 traZODone (DESYREL) 50 mg, ORAL, AT BEDTIME NEEDED Depression 07/26/2010 10/06/2021 verapamil ER (VERELAN) 120 mg 24 hr capsule Verapamil Verapamil Hcl Active 0 MG DAILY October 10, 2019 7:53am 10-10-2019 [facility] ([id number]) Hx [place] 10/2019 Motrin 800mg, 1 tab every 8 hours as prn Headaches 08/28/2016 Stopped 12/20/2020 but continue to take PRN Headaches 01/21/2008 Flexeril 10mg, 1 tab twice daily prn Muscles spasms 08/15/2005 Sennosides 17.2 mg ORAL 2 TIMES DAILY Constipation 10/18/2020 Percocet 5/325mg, [id number] prn Pain 11/05/2020 calcium-cholecalciferol, D3, (OSCAL+D ) 500 mg(1,250mg) -400 unit chewable tablet Supplement to support bone metastis 2020 11/22/2021 Chantix(varenicline) 0.5mg and 1mg start box Take 0.5 mg by mouth once daily on Days 1 through 3, THEN 0.5 mg twice daily on Days 4 through 7, THEN 1 mg twice daily on Day 8 and thereafter smoking cessation 01/10/2022 Promethazine(Phenergan) 25mg 1 tablet every 6 hours as needed for nausea nausea 11/20/2020 Omeprazole 20 mg 1 tablet tate Esophageal reflux 10/06/2021 Multivitamin 1 tablet daily Supplement 11/22/2021 Tessalon Perles 100 mg 1-3 capsules every 6-8 hours as needed for cough Cough Suppression 09/22/2022 Oxycodone 10 mg At bedtime for pain Pain 03/22/2022 Patient remains on Zometa 4 mg IV Q12 weeks for skeletal mets. Toxicities for Today: CTCAE 5 Fatigue: Grade 2: Start date:11/30/2020.Increased date: 01/09/2023 Possibly related to pembrolizumab. Drugs to Treat: None. Action Required: None. Outcome: Ongoing - Patient expressed improving Cough: Grade 1: Start date: 01/10/2021. Unlikely related to Pembrolizumab. Drugs to treat: Albuterol inhaler. Action Required: None. Outcome: Ongoing - Patient expressed improving Pain: (lower back pain that radiates into legs) Intermittent Grade 1. Start Date: approximately: 03/17/2021. Unrelated to pembrolizumab, related to sacral mets. Drugs to Treat: Percocet. Action Required: None. Outcome: Ongoing - Improving Diarrhea: Intermittent Grade 1: Start Date: Prior to 2012. Unrelated to pembrolizumab, related to IBS. Drugs to Treat: Immodium. Action Required: None. Outcome: Ongoing. Hyperglycemia (Non-Fasting) Grade 1: Start Date: 01/24/2022. Unrelated to Pembrolizumab. Drugs to Treat: None. Action Required: None as value is non-fasting. Outcome: Ongoing. Nausea: Grade 1: Start date:08/10/2022 Possibly related to pembrolizumab feels unlikely and related to Chantix for smoking cessation. Stop Date: 01/09/2023 Drugs to Treat: Phenergan renewed Action Required: None. Outcome:RESOLVED Depression: Grade 1: Start date:09/26/2022 Unrelated to treatment - situational Drugs to Treat: None Action Required: None. Outcome: Ongoing Hypertension Grade 1: Start Date: 09/06/2022. Unrelated to Pembrolizumab. Drugs to Treat: None. Action Required: None as value is non-fasting. Outcome: Ongoing. Toxicities and Laboratory Results Not Gradable per CTCAE 5: Vision decreased: PRIOR TO STUDY. Unrelated to pembrolizumab. Patient states that she had a follow up appointment with her eye doctor and vision about the same since last exam a year ago. Recommended re-check in 1 year. NO changes Drugs to Treat: None. Action Required: None. Action required: None Outcome: Ongoing Alkaline Phosphatase Increase Grade 1: Possibly related to pembrolizumab. Start date: 09/04/2022 Drugs to Treat: None. Action Required: None. Action required: None Outcome: Ongoing. Summary of Visits as below 02/09/2023: CT ABD/PEL CT CHEST The provider has reviewed and verified the information included within this note, including AE information. Patient meets criteria for treatment, confirmed by Carrie Preciado APRN, CNP. [place] orders signed. Patient has contact information for Dr. Duncan's office as well as [facility] Department for any questions/concerns. PATRICIO Jacobson, RN, Clinical Research Nurse [phone] documented in this encounter [facility] 11-30-2022 Miscellaneous Notes See other encounter. Dr. Durant corrected letter Letter printed, please process Lata is asking for a permanent handicap placard for her car. Please call her back at [phone] documented in this encounter [facility] 11-29-2022 Miscellaneous Notes Printed corrected parking placard documented in this encounter [facility] 11-13-2022 History of Present illness Narrative Radiology Service Progress Note DATE OF SERVICE: November 13, 2022 TIME: 3:38 PM PATIENT IDENTITY VERIFICATION COMPLETED USING TWO (2) STANDARD IDENTIFIERS: Name and Date of confirmed by patient verbally. FALL SCREENING: Has the patient had 2 falls in the last year or 1 fall with injury or currently using an Ambulatory Assistive Device (Walker, Cane, Wheelchair, Crutches, etc.)? No PATIENT GENDER DATA: Female. status: : No status: NO. PATIENT RELEVANT IMPLANT DATA REVIEWED: Yes ALLERGIES: Reviewed and unchanged CONTRAST ALLERGY: NO. EXAM: CT -CONTRAST INDUCED NEPHROPATHY RISK FACTORS: Patient age > 60 years CREATININE: Creatinine Date Value Ref Range Status 10/17/2022 0.80 0.58 - 0.96 mg/dL Final 09/26/2022 0.73 0.58 - 0.96 mg/dL Final 09/04/2022 0.75 0.58 - 0.96 mg/dL Final Estimated Glomerular Filtration Rate Date Value Ref Range Status 10/17/2022 84 >=60 mL/min/1.73m Final Comment: Estimated Glomerular Filtration Rate (eGFR) is calculated using the 2020 CKD-EPI creatinine equation. This equation utilizes serum creatinine, sex, and age as parameters. The creatinine assay has traceable calibration to isotope dilution-mass spectrometry. Refer to KDIGO guidelines for clinical interpretation. In patients with unstable renal function, e.g. those with acute kidney injury, the eGFR may not accurately reflect actual GFR. eGFR- Date Value Ref Range Status 11/22/2021 >60 Final P.O.C.T. RESULTS: POC done: Yes, See Lab Tab November 13, 2022 TREATMENT: N/A PERIPHERAL IV DATA: Ambulatory: A peripheral IV was started in the Right antecubital site with a Angio cath: 22 gauge. RADIOLOGY DEPARTMENT: CT; Exam(s) Completed: Chest Abdomen Pelvis SIGNATURE: RT Pete(R) PATIENT NAME: Lata Smith DATE: November 13, 2022 TIME: 3:38 PM documented in this encounter [facility] 10-24-2022 History of Present illness Narrative This note was created using [employer]. Subjective Lata Smith is a 61 year old female. Patient presents with: F/U 3 Month SUBJECTIVE: Lata Smith is a 61 year old year old lady here today for 3 month follow up appointment for review of medical conditions. Trigger finger left ring finger. Sleeps with holding hand flat. 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 Hypertension Irritable bowel syndrome Migraine without aura Obesity, unspecified Other forms of migraine ST elevation myocardial infarction involving right coronary artery (HCC) 06/28/2020 Tobacco use disorder Unspecified asthma(493.90) Viral hepatitis B without mention of hepatic coma, acute or unspecified, without mention of hepatitis delta Chronic hepatitis B Current Outpatient Medications Medication Sig iv contrast (will be provided with radiology test) CT ABD/PEL -Inject, intravenously, once for 1 dose.No IV access, insert saline lock prior to the beginning of sedation, infusion, injection of imaging exam. Discontinue saline lock post exam. If Pt. has a central line or IVAD, may access for administration according to line specific nursing protocol. Once exam is complete flush line and de-access according to line specific nursing protocol in the CT contrast administration guidelines link. enteric contrast (will be provided with radiology test) For CT ABD/PEL W IVCON Routine order Administer, As Directed One Time Only, via Oral, Rectal, both Oral and Rectal, Enteric Tube, Stoma or Indwelling Catheter, Enteric Contrast as designated per enteric contrast guidelines promethazine (PHENERGAN) 25 mg tablet Take 1 tablet by mouth every 6 hours as needed for nausea/vomiting (Patient states she is using prior to Chantix dose for nausea). ibuprofen (MOTRIN) 800 mg tablet Take 1 tablet by mouth every 8 hours as needed for Pain. (not for migraines and not in same day as naprosyn) Take with food. hydroCHLOROthiazide (HYDRODIURIL, ESIDRIX) 25 mg tablet Take 1 tablet by mouth once daily as needed (fluid retention/leg swelling). verapamil ER (VERELAN) 120 mg 24 hr capsule Take 1 capsule by mouth once daily. lisinopril (ZESTRIL, PRINIVIL) 5 mg tablet Take 1 tablet by mouth once daily. albuterol HFA (VENTOLIN HFA) 90 mcg/actuation inhaler Inhale 2 Puffs as instructed every 4 hours as needed. varenicline (CHANTIX) 1 mg tablet Take 1 tablet by mouth twice daily. oxyCODONE-acetaminophen (PERCOCET) 7.5-325 mg tablet Take 1 tablet by mouth every 8 hours as needed for pain. rosuvastatin (CRESTOR) 40 mg tablet Take 1 tablet by mouth once daily. traZODone (DESYREL) 50 mg tablet Take 1 tablet by mouth at bedtime as needed. benzonatate (TESSALON PERLE) 100 mg capsule Take 1-3 capsules by mouth every 6-8 hours as needed. multivitamin tablet Take 1 tablet by mouth once daily. diclofenac (VOLTAREN) 1 % topical gel Apply 4 g to affected area four times daily as needed (right hip and as directed). potassium chloride (KLOR-CON) 20 mEq packet Take 20 mEq by mouth twice daily. senna (SENOKOT) 8.6 mg tab Take 2 tablets by mouth twice daily. rizatriptan (MAXALT) 10 mg tablet Take 10 mg by mouth as needed. May repeat in 2 hours if needed cyclobenzaprine (FLEXERIL) 10 mg tablet Take 10 mg by mouth twice daily as needed for Muscle Spasm. albuterol (PROVENTIL) 2.5 mg /3 mL (0.083 %) nebulizer solution Use 3 mL via nebulizer every 6 hours as needed for Wheezing/Shortness of Breath. 1 vial contains 3 ml. fluticasone (FLONASE) 50 mcg/actuation nasal spray Use 2 Sprays in each nostril once daily. Rinse mouth after use. simethicone, chewable ([place]-ACID GAS RELIEF) 80 mg chewable tablet Take 1 tablet by mouth every 6 hours as needed. polyethylene glycol 3350 (MIRALAX) 17 gram/dose powder Take 17 g by mouth once daily. NOT NEEDING NOW Nebulizer NEBULIZER FOR HOME USE with supplies. DX: (J45.40) Moderate persistent asthma without complication (primary encounter diagnosis) docusate sodium (COLACE) 100 mg capsule Take 1 capsule by mouth once daily as needed. naloxone 4 mg/actuation nasal spray (NARCAN) Use 1 spray in one nostril as needed for overdose. May repeat every 2 to 3 min in alternating nostrils until medical assistance is available aspirin, enteric coated (ASPIRIN, ENTERIC COATED) 81 mg EC tablet Take 81 mg by mouth once daily. No current facility-administered medications for this visit. Review of Systems Objective BP 128/68 Pulse 79 Temp 36.3 C (97.4 F) Resp 18 Wt 95.3 kg (210 lb) LMP 11/04/2012 SpO2 95% BMI 40.67 kg/m Last 5 Encounter Wt Readings: Date: Wt: 10/24/2022 95.3 kg (210 lb) 10/17/2022 95 kg (209 lb 8 oz) 09/26/2022 94.1 kg (207 lb 8 oz) 09/04/2022 93.4 kg (206 lb) 08/14/2022 90.9 kg (200 lb 8 oz) No waist measurement recorded Estimated body mass index is 40.67 kg/m as calculated from the following: Height as of 08/14/22: 153 cm (5' 0.25). Weight as of this encounter: 95.3 kg (210 lb). Last 5 Encounter BP Readings: Date: BP: 10/24/2022 128/68 10/18/2022 149/52 10/17/2022 131/63 09/27/2022 149/73 09/26/2022 126/41 Physical Exam Constitutional: Appearance: Normal appearance. HENT: Head: Normocephalic. Eyes: Conjunctiva/sclera: Conjunctivae normal. Cardiovascular: Rate and Rhythm: Normal rate and regular rhythm. Heart sounds: Normal heart sounds. Pulmonary: Effort: Pulmonary effort is normal. Breath sounds: Wheezing (Low pitched, faint) present. Musculoskeletal: Comments: Mild triggering left ring finger; no swelling in hand noted Skin: General: Skin is warm and dry. Neurological: General: No focal deficit present. Mental Status: She is alert and oriented to person, place, and time. Psychiatric: Mood and Affect: Mood normal. Behavior: Behavior normal. Thought Content: Thought content normal. Judgment: Judgment normal. Assessment and Plan Encounter Diagnosis ICD-10-CM 1. Trigger ring finger of left hand M65.342 2. Right hip pain M25.551 diclofenac (VOLTAREN) 1 % topical gel 3. Cigarette smoker F17.210 varenicline (CHANTIX) 1 mg tablet 4. History of [place] (myocardial infarction) I25.2 losartan (COZAAR) 25 mg tablet right CA 5. COPD with asthma (HCC) J44.9 6. 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 Patient involved in shared decision making for management of medical issues. History and medications reviewed. Epic updated as needed Refills and/or prescriptions taken care of and meds adjusted as indicated after reviewed history, exam and labs. Health Maintenance reviewed. Updated record and/or ordered tests as recorded. Encouraged on efforts at healthy diet and regular exercise and adequate sleep. Will follow with Dr. Duncan after Dr. Huddleston's alf for metastatic lung cancer treatment. Continue present management.Continue present meds. Fiona Durant MD documented in this encounter [facility] 10-17-2022 History of Present illness Narrative PATIENT NAME: Lata Smith. CLINIC NO: [id number]. ATTENDING PHYSICIAN: Anca Huddleston MD. DATE OF SERVICE: 10/16/2022 DIAGNOSIS: Stage IV, non-small cell (adenocarcinoma) lung cancer. HPI: 61-year-old lady with history of hypertension cardiovascular disease recent [place] in October 2019, status post coronary stents x3 on Plavix and aspirin who presented with worsening shortness of breath and hemoptysis for several months. Patient was seen in primary care clinic in May was treated with antibiotic without improvement. She was seen by Dr. Castillo and a CT chest revealed a lung mass and mediastinal adenopathy. She had no fever Chills, rigor, pleuritic chest pain, chest trauma. She has stable exertional dyspnea with activities of daily living, and exertional wheezing. She also complained of severe right hip pain along with pressure on her right side of her chest for couple months. Her staging PET scan on 08/03/2020 unfortunately showed metastatic disease. She had bronchoscopy and EBUS biopsy of the mediastinal lymph node on 08/19/2020. Biopsy was consistent with non-small cell, favoring adenocarcinoma the lung. She is here today to discuss treatment option for metastatic lung cancer. Patient is lives with an adult son. She is quit smoking since October after her heart attack. She denied any any weight loss since her heart attack. She has no hoarseness or dysphagia. No headaches or neurological symptoms. She has severe right hip pain secondary to metastatic disease. MRI scan of brain shows no evidence of metastatic disease. She completed palliative radiation therapy to her right hip. Current Treatment: Pembrolizumab Interim history: She is doing well on Pembrolizumab with no side effects. She has no abdominal pain, pancreatitis, diarrhea or jaundice. She has no jaw pain or dental issues on Zometa. No changes in weight or appetite. No cough or shortness of breath. Chronic lower back pain from pathological fracture. All medications & allergies updated and reviewed by me. REVIEW OF SYSTEMS: CONSTITUTIONAL: No fevers, chills, nightsweats, unintended weight loss HEENT: Denies frequent or severe heaches, nasal congestion/sinus symptoms, problematic allergy problems. EYES: No diplopia or blurry vision. CARDIOVASCULAR: No chest pain, dyspnea, palpitations, orthopnea, PND, ankle edema. PULM: No dyspnea, unexplained cough. GI: No dysphagia/odynophagia, problematic reflux, constipation, diarrhea, changes in stool habits, hematochezia, melena. : No new urinary complaints, including dysuria, gross hematuria or pyuria. NEURO: No new balance problems, peripheral weakness/paresthesias or numbness of concern. MUSC-SKEL: No new joint pain, swelling, or erythema. PSY: No concerns regarding depression, anxiety or panic. INTEGUMENTARY: No new skin changes (rash, new or changing mole, new growth) PHYSICAL EXAMINATION: 61 year-old lady appears to be in no acute distress Performance status 90% BP 131/63 Pulse 86 Temp 97.6 Wt 209 lb 8 oz (95.0kg) SpO2 95% LMP 11/04/2012 HEENT: Head is normocephalic, atraumatic. Sclerae white, conjunctivae pink. PEERL. EOMs are intact. Oropharynx is benign. LYMPHATICS: There is no palpable adenopathy in the neck, supraclavicular region, axillae, or groin. LUNGS: Lungs are clear to percussion and auscultation. No wheezing. HEART: Heart is normal without murmurs, gallops, or rubs. ABDOMEN: Soft and nontender without organomegaly. No masses can be palpated. EXTREMITIES: Are without edema. NEUROLOGIC: Exam is physiologic LABORATORY DATA: Component Latest Ref Rng & Units 10/17/2022 WBC 3.70 - 11.00 k/uL 6.71 RBC 3.90 - 5.20 m/uL 4.77 Hemoglobin 11.5 - 15.5 g/dL 13.5 Hematocrit 36.0 - 46.0 % 41.6 MCV 80.0 - 100.0 fL 87.2 MCH 26.0 - 34.0 pg 28.3 MCHC 30.5 - 36.0 g/dL 32.5 RDW-CV 11.5 - 15.0 % 14.4 Platelet Count 150 - 400 k/uL 204 MPV 9.0 - 12.7 fL 9.8 Neut% % 71.8 Abs Neut (ANC) 1.45 - 7.50 k/uL 4.81 Lymph% % 18.8 Abs Lymph 1.00 - 4.00 k/uL 1.26 [place]% % 6.1 Abs [place] <0.87 k/uL 0.41 Eosin% % 2.2 Abs Eosin <0.46 k/uL 0.15 Baso% % 0.7 Abs Baso <0.11 k/uL 0.05 Immature Gran % % 0.4 IMMATURE GRANS (ABS) <0.10 k/uL 0.03 NRBC /100 WBC 0.0 Absolute nRBC <0.01 k/uL <0.01 DTYPE Auto Component Latest Ref Rng & Units 10/17/2022 Protein, Total 6.3 - 8.0 g/dL 7.0 Albumin 3.9 - 4.9 g/dL 4.1 Calcium 8.5 - 10.2 mg/dL 9.4 Bilirubin, Total 0.2 - 1.3 mg/dL 0.2 Alkaline Phosphatase 34 - 123 U/L 127 (H) AST 13 - 35 U/L 13 ALT 7 - 38 U/L 15 Glucose 74 - 99 mg/dL 131 (H) BUN 7 - 21 mg/dL 11 Creatinine 0.58 - 0.96 mg/dL 0.80 Sodium 136 - 144 mmol/L 141 Potassium 3.7 - 5.1 mmol/L 4.2 Chloride 97 - 105 mmol/L 105 CO2 22 - 30 mmol/L 27 Anion Gap 9 - 18 mmol/L 9 eGFR >=60 mL/min/1.73m 84 Component Latest Ref Rng & Units 10/17/2022 Amylase 30 - 104 U/L 66 TSH 0.270 - 4.200 mIU/L 1.770 Lipase 16 - 61 U/L 48 Free T4 0.9 - 1.7 ng/dL 1.0 Cortisol 4.8 - 19.5 ug/dL 6.1 ASSESSMENT/PLAN: 61-year-old lady with history of COPD, coronary artery disease with metastatic non-small cell lung cancer.(Right lower lobe-favoring adenocarcinoma) extensive bone metastasis with a large lytic lesion in the right sacrum. 1) metastatic non-small cell (adenocarcinoma) with extensive bone metastasis PD-L1 expression 100% ROS1 & RET not detected. BRAF No variant detected [Reference Sequence: (NM_[id number])]. EGFR - No variant detected [Reference Sequence: (NM_[id number])]. HER2 (ERBB2) - No variant detected [Reference sequence: (NM_004448.2)]. KRAS A sequence change: c.34_35delinsTT (p.[id number]) was detected at approximately 30% allelic proportion (depth of coverage at change 5410)[Reference Sequence: (NM_[id number])]. MET- No variant detected [Reference Sequence: (NM_000245.2)]. -She is doing well on Pembrolizumab (complete response from the beginning of treatment) -Tolerating Pembrolizumab; without toxicity except for mild nausea and dry skin -Stable disease on imaging Plan: -Patient wishes to continue with pembrolizumab after 2 years on study. -Change schedule pembrolizumab 400 mg IV every 42 days -Zometa 4 mg IV every 12 weeks for skeletal metastasis -Repeat CBC, CMP, TSH, cortisol & office visit in 6 weeks -Repeat CT chest abdomen pelvis in 6 weeks 2) hip pain secondary to right sacral lesion. -Pain is controlled Plan: -Continue Ibuprfen as needed for pain and wean off Percocet. -Senokot 2 tablet twice daily & MiraLAX as needed for constipation. -[facility] 3) dyspnea and cough secondary to COPD /tobacco use Plan -Encourage patient to stop smoking -Continue Proventil nebulizer as needed -Follow-up with PCP for smoking cessation Portions of this documentation were copied and pasted from previous office visit notes in order to provide a cohesive continuity of the history. The note has been reviewed and edited and updated as necessary. Anca Huddleston MD Cc: Fiona Durant MD [facility] documented in this encounter [facility] 09-26-2022 History of Present illness Narrative PATIENT NAME: Lata Smith. CLINIC NO: [id number]. ATTENDING PHYSICIAN: Anca Huddleston MD. DATE OF SERVICE: 09/26/2022 DIAGNOSIS: Stage IV, non-small cell (adenocarcinoma) lung cancer. HPI: 61-year-old lady with history of hypertension cardiovascular disease recent [place] in October 2019, status post coronary stents x3 on Plavix and aspirin who presented with worsening shortness of breath and hemoptysis for several months. Patient was seen in primary care clinic in May was treated with antibiotic without improvement. She was seen by Dr. Castillo and a CT chest revealed a lung mass and mediastinal adenopathy. She had no fever Chills, rigor, pleuritic chest pain, chest trauma. She has stable exertional dyspnea with activities of daily living, and exertional wheezing. She also complained of severe right hip pain along with pressure on her right side of her chest for couple months. Her staging PET scan on 08/03/2020 unfortunately showed metastatic disease. She had bronchoscopy and EBUS biopsy of the mediastinal lymph node on 08/19/2020. Biopsy was consistent with non-small cell, favoring adenocarcinoma the lung. She is here today to discuss treatment option for metastatic lung cancer. Patient is lives with an adult son. She is quit smoking since October after her heart attack. She denied any any weight loss since her heart attack. She has no hoarseness or dysphagia. No headaches or neurological symptoms. She has severe right hip pain secondary to metastatic disease. MRI scan of brain shows no evidence of metastatic disease. She completed palliative radiation therapy to her right hip. Current Treatment: Pembrolizumab Interim history: She is doing well on Pembrolizumab with no side effects. She has no abdominal pain, bloating, diarrhea or jaundice. She has no jaw pain or dental issues on Zometa. No changes in weight or appetite. All medications & allergies updated and reviewed by me. REVIEW OF SYSTEMS: CONSTITUTIONAL: No fevers, chills, nightsweats, unintended weight loss HEENT: Denies frequent or severe heaches, nasal congestion/sinus symptoms, problematic allergy problems. EYES: No diplopia or blurry vision. CARDIOVASCULAR: No chest pain, dyspnea, palpitations, orthopnea, PND, ankle edema. PULM: No dyspnea, unexplained cough. GI: No dysphagia/odynophagia, problematic reflux, constipation, diarrhea, changes in stool habits, hematochezia, melena. : No new urinary complaints, including dysuria, gross hematuria or pyuria. NEURO: No new balance problems, peripheral weakness/paresthesias or numbness of concern. MUSC-SKEL: No new joint pain, swelling, or erythema. PSY: No concerns regarding depression, anxiety or panic. INTEGUMENTARY: No new skin changes (rash, new or changing mole, new growth) PHYSICAL EXAMINATION: 61 year-old lady appears to be in no acute distress Performance status 90% BP 126/41 Pulse 77 Temp 96.5 Wt 207 lb 8 oz (94.1kg) SpO2 96% LMP 11/04/2012 HEENT: Head is normocephalic, atraumatic. Sclerae white, conjunctivae pink. PEERL. EOMs are intact. Oropharynx is benign. LYMPHATICS: There is no palpable adenopathy in the neck, supraclavicular region, axillae, or groin. LUNGS: Lungs are clear to percussion and auscultation. No wheezing. HEART: Heart is normal without murmurs, gallops, or rubs. ABDOMEN: Soft and nontender without organomegaly. No masses can be palpated. EXTREMITIES: Are without edema. NEUROLOGIC: Exam is physiologic LABORATORY DATA: Component Latest Ref Rng & Units 09/26/2022 WBC 3.70 - 11.00 k/uL 6.73 RBC 3.90 - 5.20 m/uL 4.81 Hemoglobin 11.5 - 15.5 g/dL 13.5 Hematocrit 36.0 - 46.0 % 41.9 MCV 80.0 - 100.0 fL 87.1 MCH 26.0 - 34.0 pg 28.1 MCHC 30.5 - 36.0 g/dL 32.2 RDW-CV 11.5 - 15.0 % 14.3 Platelet Count 150 - 400 k/uL 196 MPV 9.0 - 12.7 fL 9.6 Neut% % 71.9 Abs Neut (ANC) 1.45 - 7.50 k/uL 4.84 Lymph% % 18.3 Abs Lymph 1.00 - 4.00 k/uL 1.23 [place]% % 5.9 Abs [place] <0.87 k/uL 0.40 Eosin% % 2.4 Abs Eosin <0.46 k/uL 0.16 Baso% % 0.6 Abs Baso <0.11 k/uL 0.04 Immature Gran % % 0.9 IMMATURE GRANS (ABS) <0.10 k/uL 0.06 NRBC /100 WBC 0.0 Absolute nRBC <0.01 k/uL <0.01 DTYPE Auto ASSESSMENT/PLAN: 61-year-old lady with history of COPD, coronary artery disease with metastatic non-small cell lung cancer.(Right lower lobe-favoring adenocarcinoma) extensive bone metastasis with a large lytic lesion in the right sacrum. 1) metastatic non-small cell (adenocarcinoma) with extensive bone metastasis PD-L1 expression 100% ROS1 & RET not detected. BRAF No variant detected [Reference Sequence: (NM_[id number])]. EGFR - No variant detected [Reference Sequence: (NM_[id number])]. HER2 (ERBB2) - No variant detected [Reference sequence: (NM_004448.2)]. KRAS A sequence change: c.34_35delinsTT (p.[id number]) was detected at approximately 30% allelic proportion (depth of coverage at change 5410)[Reference Sequence: (NM_[id number])]. MET- No variant detected [Reference Sequence: (NM_[id number])]. -She is doing well on Pembrolizumab (complete response from the beginning of treatment) -Tolerating Pembrolizumab; without toxicity except for mild nausea and dry skin -Stable disease on imaging Plan: -Continue Pembrolizumab every 21 days per study protocol. -Zometa 4 mg IV every 12 weeks for skeletal metastasis -Repeat CBC, CMP, TSH, cortisol, amylase and lipase & office visit in 3 weeks -Patient wished to continue with pembrolizumab after 2 years of study this week. We will change the schedule pembrolizumab 400 mg IV every 42 days starting next year along with Zometa 4 mg IV every 84 days. 2) hip pain secondary to right sacral lesion. -Pain is controlled Plan: -Continue Ibuprfen as needed for pain and wean off Percocet. -Senokot 2 tablet twice daily & MiraLAX as needed for constipation. 3) dyspnea and cough secondary to COPD /tobacco use Plan -Encourage patient to stop smoking -Continue Proventil nebulizer as needed -Follow-up with PCP for smoking cessation Portions of this documentation were copied and pasted from previous office visit notes in order to provide a cohesive continuity of the history. The note has been reviewed and edited and updated as necessary. Anca Huddleston MD Cc: Fiona Durant MD [facility] documented in this encounter [facility] 09-26-2022 History of Present illness Narrative IRB#: [id number], [facility]# [id number]: A Randomized, Phase III Study of Firstline Immunotherapy alone or in Combination with Chemotherapy in Induction/Maintenance or Postprogression in Advanced Nonsquamous Non-Small Cell Lung Cancer (NSCLC) with Immunobiomarker SIGNature-driven Analysis IC signed 09/13/2020 Randomized 09/22/2020 to treatment arm A: 1st line [id number] (pembrolizumab) followed by 2nd line Pemetrexed/Carboplatin. Study ID: [id number] Pt examined by Anca Huddleston MD on 09/26/2022 in anticipation of Cycle 35 for trial purposes (34 due to one missed here) with patient of IRB# [id number] visit assessment. Patient remains on first line therapy. Patient feeling less sore and fatigued. Patient down to a pack a week and vapes occasionally, but has not been drinking. Patient encouraged to reduce intake. Patient managing pain with hip with palliative care still and feels this has improved. expressed she will likely remain on treatment outside of protocol and will flow into follow-up to be discussed next visit more in-depth. PS/KPS completed by - 90 Resulted labs reviewed by Anca Huddleston who reports that patient will continue Pembrolizumab Cycle 35 (ARM A - first line) per study protocol. Creatinine Clearance: 122 mL/min Quality of life questionnaire completed per protocol: Not Required per trial. Clinical trial draw completed per protocol: Not required until progression. VS completed per protocol: Yes 09/26/2022 Weight 94.1 kg (207 lb 8 oz) BSA 0 Resp 16 Pulse Ox 96% BMI 0 Temp 35.8 C (96.5 F) Pulse 77 BP 126/41 (A) Concomitant medications reviewed per protocol: Yes Current Outpatient Medications Indication: Start date: Stop date: Medication Instructions albuterol (PROVENTIL) 2.5 mg, NEBULIZATION -UNSPEC, EVERY 6 HOURS NEEDED, 1 vial contains 3 ml. Asthma 20 years ago hasn't used in over a year albuterol HFA (VENTOLIN HFA) 90 mcg/actuation inhaler 2 Puffs, INHALATION, EVERY 4 HOURS NEEDED Asthma 20 years ago aspirin, enteric coated (ASPIRIN LOW DOSE) 81 mg, ORAL, DAILY Hx of [place] 10/2019 clopidogrel (PLAVIX) 75 mg, ORAL, DAILY Hx of [place] 10/2019 diclofenac sodium (VOLTAREN) 4 g, TOPICAL, 4 TIMES DAILY NEEDED Osteoarthritis 06/28/2020 docusate sodium (COLACE) 100 mg, ORAL, ONCE DAILY NEEDED Constipation 05/23/2013 esomeprazole (NEXIUM) 20 mg, ORAL, DAILY, (insurance states it covers Nexium OTC 20 mg) Esophageal reflux 06/06/2004 10/06/2021 fluticasone (FLONASE) 50 mcg/actuation nasal spray Use 2 Sprays in each nostril once daily. Rinse mouth after use. allergic rhinitis 08/29/2004 lisinopril (ZESTRIL, PRINIVIL) 5 mg, ORAL, DAILY Hx of [place] 10/2019 morphine SR (MS CONTIN) 30 mg, ORAL,EVERY 8 HOURS FOR PAIN. hip pain 09/10/2020 11/04/2020 Nebulizer NEBULIZER FOR HOME USE with supplies. DX: (J45.40) Moderate persistent asthma without complication (primary encounter diagnosis) asthma Patient has not been taking polyethylene glycol 3350 (MIRALAX) 17 g, ORAL, DAILY, NOT NEEDING NOW Constipation 05/23/2013 Maxalt 10 mg tab, 1 tab by mouth as needed, may repeat in 2 hours if needed Migraines 06/25/2013 potassium chloride ER (K-DUR, KLOR-CON) 20 mEq tablet 20 mEq, ORAL, one tab EOD and two tabs EOD per patient Low K+ 10/27/2020 Patient reports only taking one tablet daily 3-4 days per week (06/27/21) rosuvastatin (CRESTOR) 40 mg, ORAL, DAILY Dyslipidemia 02/27/2020 simethicone, chewable ([place]-ACID GAS RELIEF(SIMETHICON)) 80 mg, ORAL, EVERY 6 HOURS NEEDED Irritable bowel 10/16/2012 traZODone (DESYREL) 50 mg, ORAL, AT BEDTIME NEEDED Depression 07/26/2010 10/06/2021 verapamil ER (VERELAN) 120 mg 24 hr capsule Verapamil Verapamil Hcl Active 0 MG DAILY October 10, 2019 7:53am 10-10-2019 [facility] ([id number]) Hx [place] 10/2019 Motrin 800mg, 1 tab every 8 hours as prn Headaches 08/28/2016 Stopped 12/20/2020 but continue to take PRN Headaches 01/21/2008 Flexeril 10mg, 1 tab twice daily prn Muscles spasms 08/15/2005 Sennosides 17.2 mg ORAL 2 TIMES DAILY Constipation 10/18/2020 Percocet 5/325mg, L3adjno prn Pain 11/05/2020 calcium-cholecalciferol, D3, (OSCAL+D ) 500 mg(1,250mg) -400 unit chewable tablet Supplement to support bone metastis 2020 11/22/2021 Chantix(varenicline) 0.5mg and 1mg start box Take 0.5 mg by mouth once daily on Days 1 through 3, THEN 0.5 mg twice daily on Days 4 through 7, THEN 1 mg twice daily on Day 8 and thereafter smoking cessation 01/10/2022 Promethazine(Phenergan) 25mg 1 tablet every 6 hours as needed for nausea nausea 11/20/2020 Omeprazole 20 mg 1 tablet tate Esophageal reflux 10/06/2021 Multivitamin 1 tablet daily Supplement 11/22/2021 Tessalon Perles 100 mg 1-3 capsules every 6-8 hours as needed for cough Cough Suppression 09/22/2022 Oxycodone 10 mg At bedtime for pain Pain 03/22/2022 Patient remains on Zometa 4 mg IV Q12 weeks for skeletal mets. Toxicities for Today: CTCAE 5 Fatigue: Grade 1: Start date:11/30/2020.Increased date:Possibly related to pembrolizumab. Drugs to Treat: None. Action Required: None. Outcome: Ongoing - Patient expressed improving Cough: Grade 1: Start date: 01/10/2021. Unlikely related to Pembrolizumab. Drugs to treat: Albuterol inhaler. Action Required: None. Outcome: Ongoing - Patient expressed improving Pain: (lower back pain that radiates into legs) Intermittent Grade 1. Start Date: approximately: 03/17/2021. Unrelated to pembrolizumab, related to sacral mets. Drugs to Treat: Percocet. Action Required: None. Outcome: Ongoing - Improving Diarrhea: Intermittent Grade 1: Start Date: Prior to 2012. Unrelated to pembrolizumab, related to IBS. Drugs to Treat: Immodium. Action Required: None. Outcome: Ongoing. Hyperglycemia (Non-Fasting) Grade 1: Start Date: 01/24/2022. Unrelated to Pembrolizumab. Drugs to Treat: None. Action Required: None as value is non-fasting. Outcome: Ongoing. Nausea: Grade 1: Start date:08/10/2022 Possibly related to pembrolizumab feels unlikely and related to Chantix for smoking cessation. Drugs to Treat: Phenergan renewed Action Required: None. Outcome: Ongoing Depression: Grade 1: Start date:09/26/2022 Unrelated to treatment - situational Drugs to Treat: None Action Required: None. Outcome: Ongoing Toxicities and Laboratory Results Not Gradable per CTCAE 5: Vision decreased: PRIOR TO STUDY. Unrelated to pembrolizumab. Patient states that she had a follow up appointment with her eye doctor and vision about the same since last exam a year ago. Recommended re-check in 1 year. NO changes Drugs to Treat: None. Action Required: None. Action required: None Outcome: Ongoing Increased Chloride; Other: Grade 1; Start Date: 06/09/2022 Resolved:08/14/2022 Start Date: 09/04/2022 Resolved:09/26/2022 Unrelated to Pembrolizumab: Action required: None. Outcome: Resolved Alkaline Phosphatase Increase Grade 1: Possibly related to pembrolizumab. Start date: 09/04/2022 Drugs to Treat: None. Action Required: None. Action required: None Outcome: Ongoing. Summary of Visits as below 10/17/2021: CARIN Huddleston, labs, with treatment following 10/19/2021: Treatment C36 (Off study into follow-up) The provider has reviewed and verified the information included within this note, including AE information. Patient meets criteria for treatment, confirmed by . [place] orders signed. Patient has contact information for Dr. Duncan/John's office as well as [facility] Department for any questions/concerns. PATRICIO Jacobson, RN, Clinical Research Nurse [phone] documented in this encounter [facility] 09-06-2022 History of Present illness Narrative Assessment unchanged from Dr Huddleston office visit on 09/04/22 documented in this encounter [facility] 09-04-2022 History of Present illness Narrative IRB#: [id number], [facility]# [id number]: A Randomized, Phase III Study of Firstline Immunotherapy alone or in Combination with Chemotherapy in Induction/Maintenance or Postprogression in Advanced Nonsquamous Non-Small Cell Lung Cancer (NSCLC) with Immunobiomarker SIGNature-driven Analysis IC signed 09/13/2020 Randomized 09/22/2020 to treatment arm A: 1st line MK-3475 (pembrolizumab) followed by 2nd line Pemetrexed/Carboplatin. Study ID: [id number] Pt examined by Anca Huddleston MD on 08/14/2022 in anticipation of Cycle 34 for trial purposes (33 due to one missed here) with patient of IRB# [id number] visit assessment. Patient remains on first line therapy. Patient feeling less sore and fatigued. Patient down to a pack a week and vapes occasionally, but has not been drinking. Patient encouraged to reduce intake. Patient managing pain with hip with palliative care still and feels this has improved. expressed she will likely remain on treatment outside of protocol and will flow into follow-up to be discussed next visit more in-depth. PS/KPS completed by - 90 Resulted labs reviewed by Anca Huddleston who reports that patient will continue Pembrolizumab Cycle 34 (ARM A - first line) per study protocol. Creatinine Clearance: 118 mL/min Quality of life questionnaire completed per protocol: Not Required per trial. Clinical trial draw completed per protocol: Not required until progression. VS completed per protocol: Yes 09/04/2022 Weight 93.4 kg (206 lb) BSA 0 BMI 0 Temp 36.4 C (97.5 F) Pulse 81 BP 119/60 Pulse Ox 96% Room Air Resp 16 Concomitant medications reviewed per protocol: Yes Current Outpatient Medications Indication: Start date: Stop date: Medication Instructions albuterol (PROVENTIL) 2.5 mg, NEBULIZATION -UNSPEC, EVERY 6 HOURS NEEDED, 1 vial contains 3 ml. Asthma 20 years ago hasn't used in over a year albuterol HFA (VENTOLIN HFA) 90 mcg/actuation inhaler 2 Puffs, INHALATION, EVERY 4 HOURS NEEDED Asthma 20 years ago aspirin, enteric coated (ASPIRIN LOW DOSE) 81 mg, ORAL, DAILY Hx of [place] 10/2019 clopidogrel (PLAVIX) 75 mg, ORAL, DAILY Hx of [place] 10/2019 diclofenac sodium (VOLTAREN) 4 g, TOPICAL, 4 TIMES DAILY NEEDED Osteoarthritis 06/28/2020 docusate sodium (COLACE) 100 mg, ORAL, ONCE DAILY NEEDED Constipation 05/23/2013 esomeprazole (NEXIUM) 20 mg, ORAL, DAILY, (insurance states it covers Nexium OTC 20 mg) Esophageal reflux 06/06/2004 10/06/2021 fluticasone (FLONASE) 50 mcg/actuation nasal spray Use 2 Sprays in each nostril once daily. Rinse mouth after use. allergic rhinitis 08/29/2004 lisinopril (ZESTRIL, PRINIVIL) 5 mg, ORAL, DAILY Hx of [place] 10/2019 morphine SR (MS CONTIN) 30 mg, ORAL,EVERY 8 HOURS FOR PAIN. hip pain 09/10/2020 11/04/2020 Nebulizer NEBULIZER FOR HOME USE with supplies. DX: (J45.40) Moderate persistent asthma without complication (primary encounter diagnosis) asthma Patient has not been taking polyethylene glycol 3350 (MIRALAX) 17 g, ORAL, DAILY, NOT NEEDING NOW Constipation 05/23/2013 Maxalt 10 mg tab, 1 tab by mouth as needed, may repeat in 2 hours if needed Migraines 06/25/2013 potassium chloride ER (K-DUR, KLOR-CON) 20 mEq tablet 20 mEq, ORAL, one tab EOD and two tabs EOD per patient Low K+ 10/27/2020 Patient reports only taking one tablet daily 3-4 days per week (06/27/21) rosuvastatin (CRESTOR) 40 mg, ORAL, DAILY Dyslipidemia 02/27/2020 simethicone, chewable ([place]-ACID GAS RELIEF(SIMETHICON)) 80 mg, ORAL, EVERY 6 HOURS NEEDED Irritable bowel 10/16/2012 traZODone (DESYREL) 50 mg, ORAL, AT BEDTIME NEEDED Depression 07/26/2010 10/06/2021 verapamil ER (VERELAN) 120 mg 24 hr capsule Verapamil Verapamil Hcl Active 0 MG DAILY October 10, 2019 7:53am 10-10-2019 [facility] ([id number]) Hx [place] 10/2019 Motrin 800mg, 1 tab every 8 hours as prn Headaches 08/28/2016 Stopped 12/20/2020 but continue to take PRN Headaches 01/21/2008 Flexeril 10mg, 1 tab twice daily prn Muscles spasms 08/15/2005 Sennosides 17.2 mg ORAL 2 TIMES DAILY Constipation 10/18/2020 Percocet 5/325mg, [id number] prn Pain 11/05/2020 calcium-cholecalciferol, D3, (OSCAL+D ) 500 mg(1,250mg) -400 unit chewable tablet Supplement to support bone metastis 2020 11/22/2021 Chantix(varenicline) 0.5mg and 1mg start box Take 0.5 mg by mouth once daily on Days 1 through 3, THEN 0.5 mg twice daily on Days 4 through 7, THEN 1 mg twice daily on Day 8 and thereafter smoking cessation 01/10/2022 Promethazine(Phenergan) 25mg 1 tablet every 6 hours as needed for nausea nausea 11/20/2020 Omeprazole 20 mg 1 tablet tate Esophageal reflux 10/06/2021 Multivitamin 1 tablet daily Supplement 11/22/2021 Tessalon Perles 100 mg 1-3 capsules every 6-8 hours as needed for cough Cough Suppression 09/22/2022 Oxycodone 10 mg At bedtime for pain Pain 03/22/2022 Patient remains on Zometa 4 mg IV Q12 weeks for skeletal mets. Toxicities for Today: CTCAE 5 Fatigue: Grade 1: Start date:11/30/2020.Increased date:Possibly related to pembrolizumab. Drugs to Treat: None. Action Required: None. Outcome: Ongoing - Patient expressed improving Cough: Grade 1: Start date: 01/10/2021. Unlikely related to Pembrolizumab. Drugs to treat: Albuterol inhaler. Action Required: None. Outcome: Ongoing - Patient expressed improving Pain: (lower back pain that radiates into legs) Intermittent Grade 1. Start Date: approximately: 03/17/2021. Unrelated to pembrolizumab, related to sacral mets. Drugs to Treat: Percocet. Action Required: None. Outcome: Ongoing - Improving Diarrhea: Intermittent Grade 1: Start Date: Prior to 2012. Unrelated to pembrolizumab, related to IBS. Drugs to Treat: Immodium. Action Required: None. Outcome: Ongoing. Hyperglycemia (Non-Fasting) Grade 1: Start Date: 01/24/2022. Unrelated to Pembrolizumab. Drugs to Treat: None. Action Required: None as value is non-fasting. Outcome: Ongoing. Nausea: Grade 1: Start date:08/10/2022 Possibly related to pembrolizumab feels unlikely and related to Chantix for smoking cessation. Drugs to Treat: Phenergan renewed Action Required: None. Outcome: Ongoing Toxicities and Laboratory Results Not Gradable per CTCAE 5: Vision decreased: PRIOR TO STUDY. Unrelated to pembrolizumab. Patient states that she had a follow up appointment with her eye doctor and vision about the same since last exam a year ago. Recommended re-check in 1 year. NO changes Drugs to Treat: None. Action Required: None. Action required: None Outcome: Ongoing Increased Chloride; Other: Grade 1; Start Date: 06/09/2022 Resolved:08/14/2022 Start Date: 09/04/2022 Unrelated to Pembrolizumab: Action required: None. Outcome: Ongoing Aspartate Aminotransferase Decreased; Other; Grade 1: Start date: 08/14/2022 Stop Date: 09/04/2022. Possibly related to pembrolizumab. Drugs to Treat: None. Action Required: None. Action required: None Outcome: Resolved Alkaline Phosphatase Increase Grade 1: Possibly related to pembrolizumab. Start date: 09/04/2022 Drugs to Treat: None. Action Required: None. Action required: None Outcome: Ongoing. Summary of Visits as below 09/26/2022: CARIN Huddleston, labs, with treatment following 09/28/2022: Treatment C35 10/17/2021: CARIN Huddleston labs, with treatment following 10/19/2021: Treatment C36 The provider has reviewed and verified the information included within this note, including AE information. Patient meets criteria for treatment, confirmed by . [place] orders signed. Patient has contact information for Dr. Duncan/John's office as well as [facility] Department for any questions/concerns. PATRICIO Jacobson, RN, Clinical Research Nurse [phone] documented in this encounter [place] [id number] History of Present illness Narrative RECIST TUMOR MEASUREMENTS IRB #: [id number] / [id number] Image Modality: CT Image Date: 05/05/2022 and 05/24/2022 Date of Baseline Scan: 09/16/2020 Date of Comparison Scan: 02/10/2022 Research Nurse: Liza Canas Follow-Up Measurement Measurements Baseline 09/16/2021 Series / Image # Measurements 11/05/2020 Series/ Image Measurements 12/16/2020 Series/ Image Measurements 02/17/2021 Series/ Image Measurements 04/21/2021 Series/ Image Measurement 06/22/2021 Series/ Image Measurement 08/26/2021 Series/ Image Measurement 11/18/2021 Series/ Image Measurement 02/10/2022 Series/ Image Measurement 05/05/2022 Series/ Image Measurement 08/10/2022 Series/ Image 3.0 cm x 2.7 cm Series 9, Image 77 1.6 cm x 1.1 cm Series 9, Image 80 1.6 cm x 1.2 cm Series 9 Image 83 1.6 cm x 1.2 cm Series 9 Image 74 1.6 cm x 1 cm Series 9 Image 74 1.6 cm x 1 cm Series 6 Image 78 1.4 cm x 1 cm Series 9 Image 79 1.4 cm x 1 cm Series 6, Image 76 1.6 cm x 0.8 cm Series 9, Image 82 1.4 cm x 1.0 cm Series 6, Image 83 1.4 cm x 1.0 cm Series 9, Image 81 2.6 cm x 2.2 cm Series 7, Image 75 1.4 cm x 1.0 cm Series 7, Image 82 1.1 cm x 0.9 cm Series 7 Image 85 1.1 cm x 0.9 cm Series 7 Image 76 0.8 cm x 0.4 cm Series 7 Image 76 No longer visible Series 4 Image 78 Not visible N/A Not visible N/A Not visible N/A N/A N/A N/A N/A * Target lesion 1 - right lower lobe lung nodule, 1.4 cm x 1 cm, (Series 9, Image 81) List Non-Target Lesion Site: CT ABD - NEW LESION: No new target lesions CT Chest - No new lesions Appearance of New Lesion: No Sum of Lesions: 1.4 cm Baseline Sum ( 5.2 cm) Response: Partial Response ([place]) Measurements have been reviewed and approved by Dr. Anca Canas RN August 14, 2022 documented in this encounter [facility] 08-15-2022 Miscellaneous Notes PT is scheduled as directed Summary: AVS 08/14 Follow-up disposition: Return in about 3 weeks (around 09/04/2022). Check out comments: -Continue Pembrolizumab every 21 days per study protocol. -Zometa 4 mg IV every 12 weeks for skeletal metastasis -Repeat CBC, CMP, TSH, cortisol, amylase and lipase & office visit in 3 weeks documented in this encounter [facility] 08-14-2022 History of Present illness Narrative PATIENT NAME: Lata Smith. CLINIC NO: [id number]. ATTENDING PHYSICIAN: Anca Huddleston MD. DATE OF SERVICE: 08/14/2022 DIAGNOSIS: Stage IV, non-small cell (adenocarcinoma) lung cancer. HPI: 61-year-old lady with history of hypertension cardiovascular disease recent [place] in October 2019, status post coronary stents x3 on Plavix and aspirin who presented with worsening shortness of breath and hemoptysis for several months. Patient was seen in primary care clinic in May was treated with antibiotic without improvement. She was seen by Dr. Castillo and a CT chest revealed a lung mass and mediastinal adenopathy. She had no fever Chills, rigor, pleuritic chest pain, chest trauma. She has stable exertional dyspnea with activities of daily living, and exertional wheezing. She also complained of severe right hip pain along with pressure on her right side of her chest for couple months. Her staging PET scan on 08/03/2020 unfortunately showed metastatic disease. She had bronchoscopy and EBUS biopsy of the mediastinal lymph node on 08/19/2020. Biopsy was consistent with non-small cell, favoring adenocarcinoma the lung. She is here today to discuss treatment option for metastatic lung cancer. Patient is lives with an adult son. She is quit smoking since October after her heart attack. She denied any any weight loss since her heart attack. She has no hoarseness or dysphagia. No headaches or neurological symptoms. She has severe right hip pain secondary to metastatic disease. MRI scan of brain shows no evidence of metastatic disease. She completed palliative radiation therapy to her right hip. Current Treatment: Pembrolizumab Interim history: She is doing well on Pembrolizumab with no side effects. She has no abdominal pain, bloating, diarrhea or jaundice. She has no jaw pain or dental issues on Zometa. She has occasional nausea, but symptom control with Phenergan. No changes in weight or appetite. She has a chronic cough from smoking and COPD, but no chest pain or shortness of breath. Chronic lower back and hip pain controlled with oxycodone/acetaminophen and ibuprofen. She has some itching and complaint of dry skin, no rash. All medications & allergies updated and reviewed by me. REVIEW OF SYSTEMS: CONSTITUTIONAL: No fevers, chills, nightsweats, unintended weight loss HEENT: Denies frequent or severe heaches, nasal congestion/sinus symptoms, problematic allergy problems. EYES: No diplopia or blurry vision. CARDIOVASCULAR: No chest pain, dyspnea, palpitations, orthopnea, PND, ankle edema. PULM: No dyspnea, unexplained cough. GI: No dysphagia/odynophagia, problematic reflux, constipation, diarrhea, changes in stool habits, hematochezia, melena. : No new urinary complaints, including dysuria, gross hematuria or pyuria. NEURO: No new balance problems, peripheral weakness/paresthesias or numbness of concern. MUSC-SKEL: No new joint pain, swelling, or erythema. PSY: No concerns regarding depression, anxiety or panic. INTEGUMENTARY: No new skin changes (rash, new or changing mole, new growth) PHYSICAL EXAMINATION: 61 year-old lady appears to be in no acute distress Performance status 90% BP 119/56 Pulse 72 Temp 36.2 C (97.1 F) (Temporal) Ht 153 cm (5' 0.25) Wt 90.9 kg (200 lb 8 oz) LMP 11/04/2012 SpO2 96% BMI 38.83 kg/m HEENT: Head is normocephalic, atraumatic. Sclerae white, conjunctivae pink. PEERL. EOMs are intact. Oropharynx is benign. LYMPHATICS: There is no palpable adenopathy in the neck, supraclavicular region, axillae, or groin. LUNGS: Lungs are clear to percussion and auscultation. No wheezing. HEART: Heart is normal without murmurs, gallops, or rubs. ABDOMEN: Soft and nontender without organomegaly. No masses can be palpated. EXTREMITIES: Are without edema. NEUROLOGIC: Exam is physiologic LABORATORY DATA: Component Latest Ref Rng & Units 08/14/2022 WBC 3.70 - 11.00 k/uL 6.46 RBC 3.90 - 5.20 m/uL 4.51 Hemoglobin 11.5 - 15.5 g/dL 12.9 Hematocrit 36.0 - 46.0 % 39.8 MCV 80.0 - 100.0 fL 88.2 MCH 26.0 - 34.0 pg 28.6 MCHC 30.5 - 36.0 g/dL 32.4 RDW-CV 11.5 - 15.0 % 13.8 Platelet Count 150 - 400 k/uL 211 MPV 9.0 - 12.7 fL 10.1 Neut% % 67.2 Abs Neut (ANC) 1.45 - 7.50 k/uL 4.34 Lymph% % 20.6 Abs Lymph 1.00 - 4.00 k/uL 1.33 [place]% % 6.5 Abs [place] <0.87 k/uL 0.42 Eosin% % 3.6 Abs Eosin <0.46 k/uL 0.23 Baso% % 1.5 Abs Baso <0.11 k/uL 0.10 Immature Gran % % 0.6 IMMATURE GRANS (ABS) <0.10 k/uL 0.04 NRBC /100 WBC 0.0 Absolute nRBC <0.01 k/uL <0.01 DTYPE Auto Component Latest Ref Rng & Units 08/14/2022 Protein, Total 6.3 - 8.0 g/dL 7.0 Albumin 3.9 - 4.9 g/dL 4.0 Calcium 8.5 - 10.2 mg/dL 8.8 Bilirubin, Total 0.2 - 1.3 mg/dL 0.3 Alkaline Phosphatase 34 - 123 U/L 109 AST 13 - 35 U/L 10 (L) ALT 7 - 38 U/L 18 Glucose 74 - 99 mg/dL 118 (H) BUN 7 - 21 mg/dL 9 Creatinine 0.58 - 0.96 mg/dL 0.77 Sodium 136 - 144 mmol/L 139 Potassium 3.7 - 5.1 mmol/L 3.8 Chloride 97 - 105 mmol/L 105 CO2 22 - 30 mmol/L 24 Anion Gap 9 - 18 mmol/L 10 eGFR >=60 mL/min/1.73m 88 Component Latest Ref Rng & Units 08/14/2022 Amylase 30 - 104 U/L 60 Lipase 16 - 61 U/L 36 TSH 0.270 - 4.200 mIU/L 2.730 Cortisol 4.8 - 19.5 ug/dL 4.6 (L) CT Abdomen pelvis IMPRESSION: Stable sclerotic lesion in the right iliac bone. No new mass or lymphadenopathy. CT chest: COMPARISON DATE: 05/05/2022 IMPRESSION: 1. Stable appearance of bilateral pulmonary nodules as described above. No new nodules are visualized. 2. No new thoracic lymphadenopathy ASSESSMENT/PLAN: 61-year-old lady with history of COPD, coronary artery disease with metastatic non-small cell lung cancer.(Right lower lobe-favoring adenocarcinoma) extensive bone metastasis with a large lytic lesion in the right sacrum. 1) metastatic non-small cell (adenocarcinoma) with extensive bone metastasis PD-L1 expression 100% ROS1 & RET not detected. BRAF No variant detected [Reference Sequence: (NM_[id number])]. EGFR - No variant detected [Reference Sequence: (NM_005228.3)]. HER2 (ERBB2) - No variant detected [Reference sequence: (NM_004448.2)]. KRAS A sequence change: c.[id number] (p.[id number]) was detected at approximately 30% allelic proportion (depth of coverage at change 5410)[Reference Sequence: (NM_[id number])]. MET- No variant detected [Reference Sequence: (NM_000245.2)]. -She has stable disease on Pembrolizumab (complete response from the beginning of treatment) -Tolerating Pembrolizumab; without toxicity no nausea and dry skin -Stable disease on imaging Plan: -Continue Pembrolizumab every 21 days per study protocol. 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 -Pain is controlled Plan: -Continue Ibuprfen or Percocet as needed for pain. (Alternate between or anti-inflammatory effects of ibuprofen) to decrease oxycodone tolerance -Senokot 2 tablet twice daily & MiraLAX as needed for constipation. 3) dyspnea and cough secondary to COPD /tobacco use Plan -Encourage patient to stop smoking -Continue Proventil nebulizer as needed -Follow-up with PCP for smoking cessation Portions of this documentation were copied and pasted from previous office visit notes in order to provide a cohesive continuity of the history. The note has been reviewed and edited and updated as necessary. Anca Huddleston MD Cc: Fiona Durant MD documented in this encounter [facility] 08-14-2022 History of Present illness Narrative IRB#: [id number], [facility]# [id number]: A Randomized, Phase III Study of Firstline Immunotherapy alone or in Combination with Chemotherapy in Induction/Maintenance or Postprogression in Advanced Nonsquamous Non-Small Cell Lung Cancer (NSCLC) with Immunobiomarker SIGNature-driven Analysis IC signed 09/13/2020 Randomized 09/22/2020 to treatment arm A: 1st line MK-3475 (pembrolizumab) followed by 2nd line Pemetrexed/Carboplatin. Study ID: [id number] Pt examined by Acna Huddleston MD on 08/14/2022 in anticipation of Cycle 33 for trial purposes (32 due to one missed here) with patient of IRB# [id number] visit assessment. Patient remains on first line therapy. Patient feeling less sore and fatigued - she finished moving - patient right ankle is no longer sore from fall last month. Patient down to a pack a week and vapes occasionally, but has not been drinking. Patient encouraged to reduce intake. Patient managing pain with hip with palliative care still and feels this has improved. CT of Chest and ABD/Pel reviewed with patient and - see abstract for RECIST. Patient stable and unchanged from last scans. PE completed by Dr. Dakota MD. KPS 90%. ECOG 0 Resulted labs reviewed by Anca Huddleston who reports that patient will continue Pembrolizumab Cycle 33 (ARM A - first line) per study protocol. Creatinine Clearance: 111 mL/min Quality of life questionnaire completed per protocol: Not Required per trial. Clinical trial draw completed per protocol: Not required until progression. VS completed per protocol: Yes 08/14/2022 Weight 90.9 kg (200 lb 8 oz) Height 153 cm (5' 0.25) BSA 1.97 BMI 38.83 Temp 36.2 C (97.1 F) Pulse 72 Resp 18 Pulse Ox Room air 96% BP 119/56 Concomitant medications reviewed per protocol: Yes Current Outpatient Medications Indication: Start date: Stop date: Medication Instructions albuterol (PROVENTIL) 2.5 mg, NEBULIZATION -UNSPEC, EVERY 6 HOURS NEEDED, 1 vial contains 3 ml. Asthma 20 years ago hasn't used in over a year albuterol HFA (VENTOLIN HFA) 90 mcg/actuation inhaler 2 Puffs, INHALATION, EVERY 4 HOURS NEEDED Asthma 20 years ago aspirin, enteric coated (ASPIRIN LOW DOSE) 81 mg, ORAL, DAILY Hx of [place] 10/2019 clopidogrel (PLAVIX) 75 mg, ORAL, DAILY Hx of [place] 10/2019 diclofenac sodium (VOLTAREN) 4 g, TOPICAL, 4 TIMES DAILY NEEDED Osteoarthritis 06/28/2020 docusate sodium (COLACE) 100 mg, ORAL, ONCE DAILY NEEDED Constipation 05/23/2013 esomeprazole (NEXIUM) 20 mg, ORAL, DAILY, (insurance states it covers Nexium OTC 20 mg) Esophageal reflux 06/06/2004 10/06/2021 fluticasone (FLONASE) 50 mcg/actuation nasal spray Use 2 Sprays in each nostril once daily. Rinse mouth after use. allergic rhinitis 08/29/2004 lisinopril (ZESTRIL, PRINIVIL) 5 mg, ORAL, DAILY Hx of [place] 10/2019 morphine SR (MS CONTIN) 30 mg, ORAL,EVERY 8 HOURS FOR PAIN. hip pain 09/10/2020 11/04/2020 Nebulizer NEBULIZER FOR HOME USE with supplies. DX: (J45.40) Moderate persistent asthma without complication (primary encounter diagnosis) asthma Patient has not been taking polyethylene glycol 3350 (MIRALAX) 17 g, ORAL, DAILY, NOT NEEDING NOW Constipation 05/23/2013 Maxalt 10 mg tab, 1 tab by mouth as needed, may repeat in 2 hours if needed Migraines 06/25/2013 potassium chloride ER (K-DUR, KLOR-CON) 20 mEq tablet 20 mEq, ORAL, one tab EOD and two tabs EOD per patient Low K+ 10/27/2020 Patient reports only taking one tablet daily 3-4 days per week (06/27/21) rosuvastatin (CRESTOR) 40 mg, ORAL, DAILY Dyslipidemia 02/27/2020 simethicone, chewable ([place]-ACID GAS RELIEF(SIMETHICON)) 80 mg, ORAL, EVERY 6 HOURS NEEDED Irritable bowel 10/16/2012 traZODone (DESYREL) 50 mg, ORAL, AT BEDTIME NEEDED Depression 07/26/2010 10/06/2021 verapamil ER (VERELAN) 120 mg 24 hr capsule Verapamil Verapamil Hcl Active 0 MG DAILY October 10, 2019 7:53am 10-10-2019 [facility] ([id number]) Hx [place] 10/2019 Motrin 800mg, 1 tab every 8 hours as prn Headaches 08/28/2016 Stopped 12/20/2020 but continue to take PRN Headaches 01/21/2008 Flexeril 10mg, 1 tab twice daily prn Muscles spasms 08/15/2005 Sennosides 17.2 mg ORAL 2 TIMES DAILY Constipation 10/18/2020 Percocet 5/325mg, [id number] prn Pain 11/05/2020 calcium-cholecalciferol, D3, (OSCAL+D ) 500 mg(1,250mg) -400 unit chewable tablet Supplement to support bone metastis 2020 11/22/2021 Chantix(varenicline) 0.5mg and 1mg start box Take 0.5 mg by mouth once daily on Days 1 through 3, THEN 0.5 mg twice daily on Days 4 through 7, THEN 1 mg twice daily on Day 8 and thereafter smoking cessation 01/10/2022 Promethazine(Phenergan) 25mg 1 tablet every 6 hours as needed for nausea nausea 11/20/2020 Omeprazole 20 mg 1 tablet tate Esophageal reflux 10/06/2021 Multivitamin 1 tablet daily Supplement 11/22/2021 Tessalon Perles 100 mg 1-3 capsules every 6-8 hours as needed for cough Cough Suppression 09/22/2022 Oxycodone 10 mg At bedtime for pain Pain 03/22/2022 Patient remains on Zometa 4 mg IV Q12 weeks for skeletal mets. Toxicities for Today: CTCAE 5 Fatigue: Grade 1: Start date:11/30/2020.Increased date:Possibly related to pembrolizumab. Drugs to Treat: None. Action Required: None. Outcome: Ongoing - Patient expressed improving Cough: Grade 1: Start date: 01/10/2021. Unlikely related to Pembrolizumab. Drugs to treat: Albuterol inhaler. Action Required: None. Outcome: Ongoing - Patient expressed improving Pain: (lower back pain that radiates into legs) Intermittent Grade 1. Start Date: approximately: 03/17/2021. Unrelated to pembrolizumab, related to sacral mets. Drugs to Treat: Percocet. Action Required: None. Outcome: Ongoing - Improving Diarrhea: Intermittent Grade 1: Start Date: Prior to 2012. Unrelated to pembrolizumab, related to IBS. Drugs to Treat: Immodium. Action Required: None. Outcome: Ongoing. Hyperglycemia (Non-Fasting) Grade 1: Start Date: 01/24/2022. Unrelated to Pembrolizumab. Drugs to Treat: None. Action Required: None as value is non-fasting. Outcome: Ongoing. Hypertension Grade 1: Start date: 07/03/2022 Resolved 08/14/2022 Drugs to Treat: None. Action Required: None. Action required: None Outcome:Resolved Nausea: Grade 1: Start date:08/10/2022 Possibly related to pembrolizumab feels unlikely and related to Chantix for smoking cessation. Drugs to Treat: Phenergan renewed Action Required: None. Outcome: Ongoing Toxicities and Laboratory Results Not Gradable per CTCAE 5: Vision decreased: PRIOR TO STUDY. Unrelated to pembrolizumab. Patient states that she had a follow up appointment with her eye doctor and vision about the same since last exam a year ago. Recommended re-check in 1 year. NO changes Drugs to Treat: None. Action Required: None. Action required: None Outcome: Ongoing Increased Chloride; Other: Grade 1; Start Date: 06/09/2022 Resolved:08/14/2022 Unrelated to Pembrolizumab: Action required: None. Outcome: Resolved Aspartate Aminotransferase Decreased; Other; Grade 1: Start date: 08/14/2022 Possibly related to pembrolizumab. Drugs to Treat: None. Action Required: None. Action required: None Outcome: Ongoing Summary of Visits as below 09/04/2022: CARIN Huddleston, labs, with treatment following 09/06/2022: Treatment C34 The provider has reviewed and verified the information included within this note, including AE information. Patient meets criteria for treatment, confirmed by . [place] orders signed. Patient has contact information for Dr. Duncan/John's office as well as [facility] Department for any questions/concerns. PATRICIO Jacobson, RN, Clinical Research Nurse [phone] documented in this encounter [facility] 08-10-2022 History of Present illness Narrative Radiology Service Progress Note DATE OF SERVICE: August 10, 2022 TIME: 3:51 PM PATIENT IDENTITY VERIFICATION COMPLETED USING TWO (2) STANDARD IDENTIFIERS: Name and Date of confirmed by patient verbally. FALL SCREENING: Has the patient had 2 falls in the last year or 1 fall with injury or currently using an Ambulatory Assistive Device (Walker, Cane, Wheelchair, Crutches, etc.)? No PATIENT GENDER DATA: Female. status: : No status: NO. PATIENT RELEVANT IMPLANT DATA REVIEWED: Yes ALLERGIES: Reviewed and unchanged CONTRAST ALLERGY: NO. EXAM: CT -CONTRAST INDUCED NEPHROPATHY RISK FACTORS: Patient age > 60 years CREATININE: Creatinine Date Value Ref Range Status 07/24/2022 0.78 0.58 - 0.96 mg/dL Final 07/03/2022 0.84 0.58 - 0.96 mg/dL Final 06/09/2022 0.76 0.58 - 0.96 mg/dL Final Estimated Glomerular Filtration Rate Date Value Ref Range Status 07/24/2022 87 >=60 mL/min/1.73m Final Comment: Estimated Glomerular Filtration Rate (eGFR) is calculated using the 2020 CKD-EPI creatinine equation. This equation utilizes serum creatinine, sex, and age as parameters. The creatinine assay has traceable calibration to isotope dilution-mass spectrometry. Refer to KDIGO guidelines for clinical interpretation. In patients with unstable renal function, e.g. those with acute kidney injury, the eGFR may not accurately reflect actual GFR. eGFR- Date Value Ref Range Status 11/22/2021 >60 Final P.O.C.T. RESULTS: POC done: Yes, See Lab Tab August 10, 2022 TREATMENT: N/A PERIPHERAL IV DATA: Ambulatory: A peripheral IV was started in the Left antecubital site with a Angio cath: 22 gauge. RADIOLOGY DEPARTMENT: CT; Exam(s) Completed: Abdomen and Chest SIGNATURE: RT Pete(R) PATIENT NAME: Lata Smith DATE: August 10, 2022 TIME: 3:51 PM documented in this encounter [facility] 07-26-[address] Huddleston - please enter Keytruda orders for today, thank you! documented in this encounter [facility] 07-25-2022 Miscellaneous Notes Patient has been identified by name and date of : Yes Requested Prescriptions Pending Prescriptions Disp Refills ibuprofen (MOTRIN) 800 mg tablet 60 tablet 2 RX INSTRUCTIONS: Patient aware RX will be sent to pharmacy. No need to notify patient. Oneida Preston documented in this encounter [facility] 07-24-2022 History of Present illness Narrative IRB#: [id number], [facility]# [id number]: A Randomized, Phase III Study of Firstline Immunotherapy alone or in Combination with Chemotherapy in Induction/Maintenance or Postprogression in Advanced Nonsquamous Non-Small Cell Lung Cancer (NSCLC) with Immunobiomarker SIGNature-driven Analysis IC signed 09/13/2020 Randomized 09/22/2020 to treatment arm A: 1st line [id number] (pembrolizumab) followed by 2nd line Pemetrexed/Carboplatin. Study ID: [id number] Pt examined by Carrie Preciado APRN/JAYLON on 07/24/2022 in anticipation of Cycle 32 for trial purposes (31 due to one missed here) with patient of IRB# [id number] visit assessment. Patient remains on first line therapy. Patient feeling sore today from a fall while trying to move - patient right ankle is sore, but not hard to walk on. Patient down to a pack a week and vapes occasionally, but has not been drinking. Patient encouraged to reduce intake. Patient managing pain with hip with palliative care still. PE completed by Dr. Dakota MD. KPS 90%. ECOG 0 Resulted labs reviewed by Carrie who reports that patient will continue Pembrolizumab Cycle 32 (ARM A - first line) per study protocol. Creatinine Clearance: 110 mL/min Quality of life questionnaire completed per protocol: Not Required per trial. Clinical trial draw completed per protocol: Not required until progression. VS completed per protocol: Yes 07/24/2022 Weight 90.9 kg (200 lb 8 oz) BSA 0 BMI 0 Temp 36.4 C (97.6 F) Pulse 81 Pulse Ox 94 Resp 16 BP 127/54 Concomitant medications reviewed per protocol: Yes Current Outpatient Medications Indication: Start date: Stop date: Medication Instructions albuterol (PROVENTIL) 2.5 mg, NEBULIZATION -UNSPEC, EVERY 6 HOURS NEEDED, 1 vial contains 3 ml. Asthma 20 years ago hasn't used in over a year albuterol HFA (VENTOLIN HFA) 90 mcg/actuation inhaler 2 Puffs, INHALATION, EVERY 4 HOURS NEEDED Asthma 20 years ago aspirin, enteric coated (ASPIRIN LOW DOSE) 81 mg, ORAL, DAILY Hx of [place] 10/2019 clopidogrel (PLAVIX) 75 mg, ORAL, DAILY Hx of [place] 10/2019 diclofenac sodium (VOLTAREN) 4 g, TOPICAL, 4 TIMES DAILY NEEDED Osteoarthritis 06/28/2020 docusate sodium (COLACE) 100 mg, ORAL, ONCE DAILY NEEDED Constipation 05/23/2013 esomeprazole (NEXIUM) 20 mg, ORAL, DAILY, (insurance states it covers Nexium OTC 20 mg) Esophageal reflux 06/06/2004 10/06/2021 fluticasone (FLONASE) 50 mcg/actuation nasal spray Use 2 Sprays in each nostril once daily. Rinse mouth after use. allergic rhinitis 08/29/2004 lisinopril (ZESTRIL, PRINIVIL) 5 mg, ORAL, DAILY Hx of [place] 10/2019 morphine SR (MS CONTIN) 30 mg, ORAL,EVERY 8 HOURS FOR PAIN. hip pain 09/10/2020 11/04/2020 Nebulizer NEBULIZER FOR HOME USE with supplies. DX: (J45.40) Moderate persistent asthma without complication (primary encounter diagnosis) asthma Patient has not been taking polyethylene glycol 3350 (MIRALAX) 17 g, ORAL, DAILY, NOT NEEDING NOW Constipation 05/23/2013 Maxalt 10 mg tab, 1 tab by mouth as needed, may repeat in 2 hours if needed Migraines 06/25/2013 potassium chloride ER (K-DUR, KLOR-CON) 20 mEq tablet 20 mEq, ORAL, one tab 3-4 times weekly per patient Low K+ 10/27/2020 Patient reports only taking one tablet daily 3-4 days per week (06/27/21) rosuvastatin (CRESTOR) 40 mg, ORAL, DAILY Dyslipidemia 02/27/2020 simethicone, chewable ([place]-ACID GAS RELIEF(SIMETHICON)) 80 mg, ORAL, EVERY 6 HOURS NEEDED Irritable bowel 10/16/2012 traZODone (DESYREL) 50 mg, ORAL, AT BEDTIME NEEDED Depression 07/26/2010 10/06/2021 verapamil ER (VERELAN) 120 mg 24 hr capsule Verapamil Verapamil Hcl Active 0 MG DAILY October 10, 2019 7:53am 10-10-2019 [facility] ([id number]) Hx [place] 10/2019 Motrin 800mg, 1 tab every 8 hours as prn Headaches 08/28/2016 Stopped 12/20/2020 but continue to take PRN Headaches 01/21/2008 Flexeril 10mg, 1 tab twice daily prn Muscles spasms 08/15/2005 Sennosides 17.2 mg ORAL 2 TIMES DAILY Constipation 10/18/2020 Percocet 5/325mg, [id number] prn Pain 11/05/2020 calcium-cholecalciferol, D3, (OSCAL+D ) 500 mg(1,250mg) -400 unit chewable tablet Supplement to support bone metastis 2020 11/22/2021 Chantix(varenicline) 0.5mg and 1mg start box Take 0.5 mg by mouth once daily on Days 1 through 3, THEN 0.5 mg twice daily on Days 4 through 7, THEN 1 mg twice daily on Day 8 and thereafter smoking cessation 01/10/2022 Promethazine(Phenergan) 25mg 1 tablet every 6 hours as needed for nausea nausea 11/20/2020 Omeprazole 20 mg 1 tablet tate Esophageal reflux 10/06/2021 Multivitamin 1 tablet daily Supplement 11/22/2021 Tessalon Perles 100 mg 1-3 capsules every 6-8 hours as needed for cough Cough Suppression 09/22/2022 Oxycodone 10 mg At bedtime for pain Pain 03/22/2022 Patient remains on Zometa 4 mg IV Q12 weeks for skeletal mets. Toxicities for Today: CTCAE 5 Fatigue: Grade 1: Start date:11/30/2020.Increased date:Possibly related to pembrolizumab. Drugs to Treat: None. Action Required: None. Outcome: Ongoing - Patient expressed improving Cough: Grade 1: Start date: 01/10/2021. Unlikely related to Pembrolizumab. Drugs to treat: Albuterol inhaler. Action Required: None. Outcome: Ongoing - Patient expressed improving Pain: (lower back pain that radiates into legs) Intermittent Grade 1. Start Date: approximately: 03/17/2021. Unrelated to pembrolizumab, related to sacral mets. Drugs to Treat: Percocet. Action Required: None. Outcome: Ongoing - Patient expressed worsened a little at this time, but does not meet Grade 2 and related to current move. Diarrhea: Intermittent Grade 1: Start Date: Prior to 2012. Unrelated to pembrolizumab, related to IBS. Drugs to Treat: Immodium. Action Required: None. Outcome: Ongoing. Hyperglycemia (Non-Fasting) Grade 1: Start Date: 01/24/2022. Unrelated to Pembrolizumab. Drugs to Treat: None. Action Required: None as value is non-fasting. Outcome: Ongoing. Alkaline Phosphatase Increase Grade 1: Start date: 03/28/2022 Resolved:07/24/2022 Drugs to Treat: None. Action Required: None. Action required: None Outcome: RESOLVED Hypertension Grade 1: Start date: 07/03/2022 Drugs to Treat: None. Action Required: None. Action required: None Outcome: Ongoing. Toxicities and Laboratory Results Not Gradable per CTCAE 5: Vision decreased: PRIOR TO STUDY. Unrelated to pembrolizumab. Patient states that she had a follow up appointment with her eye doctor and vision about the same since last exam a year ago. Recommended re-check in 1 year. NO changes Drugs to Treat: None. Action Required: None. Action required: None Outcome: Ongoing. Increased Chloride; Other: Grade 1; Start Date: 06/09/2022 Unrelated to Pembrolizumab: Action required: None. Outcome: Ongoing. Summary of Visits as below 08/14/2022: OV, labs, with treatment following 08/16/2022: Treatment C33 The provider has reviewed and verified the information included within this note, including AE information. Patient meets criteria for treatment, confirmed by and Carrie Preciado. [place] orders signed. Patient has contact information for Dr. Duncan/John's office as well as [facility] Department for any questions/concerns. PATRICIO Jacobson, RN, Clinical Research Nurse [phone] documented in this encounter [facility] 07-24-2022 Miscellaneous Notes Scheduled. documented in this encounter [facility] 07-24-2022 History of Present illness Narrative Chief Complaint Patient presents with: Established Patient HPI: Lata Smith is a 61 year old female who presents here today for evaluation for treatment on Sunday. Per Dr. Huddleston/Dakota's previous note: H/o hypertension cardiovascular disease recent [place] in October 2019, status post coronary stents x3 on Plavix and aspirin who presented with worsening shortness of breath and hemoptysis for several months. Patient was seen in primary care clinic in May was treated with antibiotic without improvement. She was seen by Dr. Castillo and a CT chest revealed a lung mass and mediastinal adenopathy. She had no fever Chills, rigor, pleuritic chest pain, chest trauma. She has stable exertional dyspnea with activities of daily living, and exertional wheezing. She also complained of severe right hip pain along with pressure on her right side of her chest for couple months. Her staging PET scan on 08/03/2020 unfortunately showed metastatic disease. She had bronchoscopy and EBUS biopsy of the mediastinal lymph node on 08/19/2020. Biopsy was consistent with non-small cell, favoring adenocarcinoma the lung. She is here today to discuss treatment option for metastatic lung cancer. Patient is lives with an adult son. She is quit smoking since October after her heart attack. She denied any any weight loss since her heart attack. She has no hoarseness or dysphagia. No headaches or neurological symptoms. She has severe right hip pain secondary to metastatic disease. MRI scan of brain shows no evidence of metastatic disease. She completed palliative radiation therapy to her right hip. Current Treatment: Pembrolizumab No new concerns today. Appetite:Eh. Wt. stable. Energy level:It's getting better. Busy moving. Denies fevers. Mouth:denies sores Resp:chronic cough, denies sob, +smoker Cardiac:denies chest pain/palpitations GI:denies abd pain, n/v, moving bowels regularly :denies dysuria/hematuria Extrem:chronic hip pain Neuro:+neuropathy/sciatica to BLE Skin:denies rashes/lesions Heme:denies bleeding The ROS is otherwise negative. Past medical history, appointments, medications, allergies reviewed. No changes. EXAM: BP 127/54 Pulse 81 Temp 36.4 C (97.6 F) (Temporal) Wt 90.9 kg (200 lb 8 oz) LMP 11/04/2012 SpO2 94% BMI 38.60 kg/m APPEARANCE Well appearing, alert, in no acute distress, well-hydrated, well nourished. HEART RRR with normal S1 and S2, no murmurs LUNG clear to auscultation, although diminished throughout LYMPH NODES No cervical lymphadenopathy, No supraclavicular lymphadenopathy, and No axillary lymphadenopathy. ABDOMEN bowel sounds normoactive, soft, non-tender, non-distended, no tenderness to palpation EXTREMITIES No edema NEURO Awake, alert and oriented x 3, Normal gait, and No involuntary motions. SKIN Skin color, texture, turgor normal, no suspicious rashes or lesions LABS: Component Latest Ref Rng & Units 06/09/2022 07/03/2022 07/24/2022 WBC 3.70 - 11.00 k/uL 6.55 5.92 6.33 RBC 3.90 - 5.20 m/uL 4.34 4.70 4.43 Hemoglobin 11.5 - 15.5 g/dL 12.7 13.7 12.9 Hematocrit 36.0 - 46.0 % 38.4 41.8 39.3 MCV 80.0 - 100.0 fL 88.5 88.9 88.7 MCH 26.0 - 34.0 pg 29.3 29.1 29.1 MCHC 30.5 - 36.0 g/dL 33.1 32.8 32.8 RDW-CV 11.5 - 15.0 % 13.5 13.6 13.8 Platelet Count 150 - 400 k/uL 179 183 198 MPV 9.0 - 12.7 fL 9.7 9.9 10.6 Neut% % 69.6 70.1 66.8 Abs Neut (ANC) 1.45 - 7.50 k/uL 4.57 4.15 4.23 Lymph% % 19.4 19.1 21.0 Abs Lymph 1.00 - 4.00 k/uL 1.27 1.13 1.33 [place]% % 6.6 7.4 7.4 Abs [place] <0.87 k/uL 0.43 0.44 0.47 Eosin% % 3.1 2.4 3.8 Abs Eosin <0.46 k/uL 0.20 0.14 0.24 Baso% % 0.8 0.7 0.8 Abs Baso <0.11 k/uL 0.05 0.04 0.05 Immature Gran % % 0.5 0.3 0.2 IMMATURE GRANS (ABS) <0.10 k/uL 0.03 <0.03 <0.03 NRBC /100 WBC 0.0 0.0 0.0 Absolute nRBC <0.01 k/uL <0.01 <0.01 <0.01 DTYPE Auto Auto Auto CMP/TSH/amylase/lipase/cortisol: Pending ASSESSMENT/PLAN: 1. 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) - ICD9: 162.9, 198.5, ICD10: C34.90, C79.51 (primary diagnosis) 2. Bone metastases (HCC) - ICD9: 198.5, ICD10: C79.51 3. Examination of participant in clinical trial - ICD9: V70.7, ICD10: Z00.6 Metastatic non-small cell lung cancer.(Right lower lobe-favoring adenocarcinoma) extensive bone metastasis with a large lytic lesion in the right sacrum. - Overall tolerating Keytruda well. - Continue Zometa every 3 months. - Continue follow up with pall med. - Follow up with PCP for routine care. - Proceed as scheduled Sunday for Keytruda-pending all labs. - Follow up with Dr. Huddleston as scheduled. - Pt. aware to call office with any questions/concerns. The patient indicates understanding of these issues and agrees with the plan. All documentation from previous visit of 07/03/22-Drs. Huddleston/Dakota/myself was copied and pasted, documentation has been reviewed and edited as necessary for today's visit. Carrie Preciado APRN.CNP documented in this encounter [facility] 07-19-2022 History of Present illness Narrative This note was created using Zairgeriter. Subjective Ltaa Smith is a 61 year old female. Patient presents with: Follow Up SUBJECTIVE: Lata Smith is a 61 year old year old lady here today for lady month follow up appointment for review of medical conditions. Winded all the time. Inhaler helps some. Tylenol with codeine helps with the cough so can breathe better. Takes2 to 3 per day when has flare ups. Still has 20 pills left from April RX. Moving. There will be a ramp. Wider door frame. Trailer so all one level. Would like a motorized wheelchair to be able to get around and do her ADLs. Having worse hip pain. 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 varenicline (CHANTIX) 1 mg tablet Take 1 tablet by mouth twice daily. oxyCODONE-acetaminophen (PERCOCET) 7.5-325 mg tablet Take 1 tablet by mouth every 8 hours as needed for pain. rosuvastatin (CRESTOR) 40 mg tablet Take 1 tablet by mouth once daily. promethazine (PHENERGAN) 25 mg tablet Take 1 tablet by mouth every 6 hours as needed for nausea/vomiting (Patient states she is using prior to Chantix dose for nausea). traZODone (DESYREL) 50 mg tablet Take 1 tablet by mouth at bedtime as needed. hydroCHLOROthiazide (HYDRODIURIL, ESIDRIX) 25 mg tablet Take 1 tablet by mouth once daily as needed (fluid retention/leg swelling). benzonatate (TESSALON PERLE) 100 mg capsule Take 1-3 capsules by mouth every 6-8 hours as needed. multivitamin tablet Take 1 tablet by mouth once daily. diclofenac (VOLTAREN) 1 % topical gel Apply 4 g to affected area four times daily as needed (right hip and as directed). lisinopril (ZESTRIL, PRINIVIL) 5 mg tablet Take 1 tablet by mouth once daily. ibuprofen (MOTRIN) 800 mg tablet Take 1 tablet by mouth every 8 hours as needed for fever (specify). Does not take in same day as when takes naproxen potassium chloride (KLOR-CON) 20 mEq packet Take 20 mEq by mouth twice daily. senna (SENOKOT) 8.6 mg tab Take 2 tablets by mouth twice daily. naloxone 4 mg/actuation nasal spray (NARCAN) Use 1 spray in one nostril as needed for overdose. May repeat every 2 to 3 min in alternating nostrils until medical assistance is available rizatriptan (MAXALT) 10 mg tablet Take 10 mg by mouth as needed. May repeat in 2 hours if needed cyclobenzaprine (FLEXERIL) 10 mg tablet Take 10 mg by mouth twice daily as needed for Muscle Spasm. aspirin, enteric coated (ASPIRIN, ENTERIC COATED) 81 mg EC tablet Take 81 mg by mouth once daily. verapamil ER (VERELAN) 120 mg 24 hr capsule Verapamil Verapamil Hcl Active 0 MG DAILY October 10, 2019 7:53am 10-10-2019 [facility] ([id number]) albuterol (PROVENTIL) 2.5 mg /3 mL (0.083 %) nebulizer solution Use 3 mL via nebulizer every 6 hours as needed for Wheezing/Shortness of Breath. 1 vial contains 3 ml. fluticasone (FLONASE) 50 mcg/actuation nasal spray Use 2 Sprays in each nostril once daily. Rinse mouth after use. simethicone, chewable ([place]-ACID GAS RELIEF) 80 mg chewable tablet Take 1 tablet by mouth every 6 hours as needed. polyethylene glycol 3350 (MIRALAX) 17 gram/dose powder Take 17 g by mouth once daily. NOT NEEDING NOW Nebulizer NEBULIZER FOR HOME USE with supplies. DX: (J45.40) Moderate persistent asthma without complication (primary encounter diagnosis) docusate sodium (COLACE) 100 mg capsule Take 1 capsule by mouth once daily as needed. No current facility-administered medications for this visit. Review of Systems Objective BP 108/62 Pulse 73 Wt 90.7 kg (200 lb) LMP 11/04/2012 SpO2 91% BMI 38.50 kg/m Physical Exam Constitutional: Appearance: Normal appearance. She is obese. HENT: Head: Normocephalic. Eyes: Conjunctiva/sclera: Conjunctivae normal. Cardiovascular: Rate and Rhythm: Normal rate and regular rhythm. Heart sounds: Normal heart sounds. Pulmonary: Effort: Pulmonary effort is normal. Breath sounds: Decreased air movement present. Musculoskeletal: Right lower leg: No edema. Left lower leg: No edema. Skin: General: Skin is warm and dry. Neurological: General: No focal deficit present. Mental Status: She is alert and oriented to person, place, and time. Psychiatric: Mood and Affect: Mood normal. Behavior: Behavior normal. Thought Content: Thought content normal. Judgment: Judgment normal. Assessment and Plan Encounter Diagnosis ICD-10-CM 1. Cough R05.9 acetaminophen-codeine (TYLENOL-CODEINE #3) 300-30 mg per tablet 2. ST elevation myocardial infarction involving right coronary artery ([facility]) I21.11 lisinopril (ZESTRIL, PRINIVIL) 5 mg tablet 3. Physical debility R53.81 discussed motoroized wheelchair 4. 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) C34.90 C79.51 Follows with oncology 5. COPD with asthma ([facility]) J44.9 6. Encounter for immunization Z23 INFLUENZA VACCINE QUADRIVALENT 6 MO - 64 YRS IM Above issues addressed with patient. Patient involved in shared decision making for management of medical issues. Still working on smoking cessation. Stable on current meds and management. Considering PMD given her limitations with activity due to pain and COPD. Further evaluation and treatment as indicated. History and medications reviewed. Epic updated as needed Refills and/or prescriptions taken care of and meds adjusted as indicated after reviewed history, exam and labs. Health Maintenance reviewed. Updated record and/or ordered tests as recorded. Encouraged on efforts at healthy diet and regular exercise and adequate sleep. Needs to keep working on diet and exercise with lifestyle changes for effective weight loss as well as prevention of DM, and control of BP and lipids. Fiona Durant MD documented in this encounter [facility] 07-04-2022 Miscellaneous Notes Patient has been identified by name and date of : Yes Patient phones for refill(s): Requested Prescriptions Pending Prescriptions Disp Refills albuterol HFA (VENTOLIN HFA) 90 mcg/actuation inhaler 18 g 5 Sig: Inhale 2 Puffs as instructed every 4 hours as needed. varenicline (CHANTIX) 1 mg tablet 60 tablet 3 Sig: Take 1 tablet by mouth twice daily. Date of last office visit in primary care: 04/17/2022 3 month follow-up: 09/16/2022 Last 2 Encounter Wt Readings: Date: Wt: 07/03/2022 90.9 kg (200 lb 8 oz) 06/09/2022 90.3 kg (199 lb) Previous labs/tests for medication: Not applicable Please advise. Thank you. Brandi Edgar LPN Patient has been identified by name and date of : Yes Requested Prescriptions Pending Prescriptions Disp Refills albuterol HFA (VENTOLIN HFA) 90 mcg/actuation inhaler 18 g 5 Sig: Inhale 2 Puffs as instructed every 4 hours as needed. varenicline (CHANTIX) 1 mg tablet 60 tablet 3 Sig: Take 1 tablet by mouth twice daily. RX INSTRUCTIONS: Patient aware RX will be sent to pharmacy. No need to notify patient. Soraida Enriquez Pss documented in this encounter [facility] 07-03-2022 History of Present illness Narrative IRB#: [id number], [facility]# [id number]: A Randomized, Phase III Study of Firstline Immunotherapy alone or in Combination with Chemotherapy in Induction/Maintenance or Postprogression in Advanced Nonsquamous Non-Small Cell Lung Cancer (NSCLC) with Immunobiomarker SIGNature-driven Analysis IC signed 09/13/2020 Randomized 09/22/2020 to treatment arm A: 1st line [id number] (pembrolizumab) followed by 2nd line Pemetrexed/Carboplatin. Study ID: [id number] Pt examined by Carrie Preciado APRN/JAYLON on 07/03/2022 in anticipation of Cycle 31 for trial purposes (30 due to one missed here) with patient of IRB# [id number] visit assessment. Patient remains on first line therapy. Patient feeling sore today, but has been moving and feels worn out from that. Patient still smoking 1/2 a pack a day and vapes occasionally, but has not been drinking. Patient encouraged to reduce intake. Patient managing pain with hip with palliative care still. PE completed by Dr. Dakota MD. KPS 90%. ECOG 0 Resulted labs reviewed by Carrie who reports that patient will continue Pembrolizumab Cycle 31 (ARM A - first line) per study protocol. Orders signed and patient rescheduled for 06/13. Creatinine Clearance: 102 mL/min Quality of life questionnaire completed per protocol: Not Required per trial. Clinical trial draw completed per protocol: Not required until progression. VS completed per protocol: Yes 07/03/2022 Weight 90.9 kg (200 lb 8 oz) Height 153.5 cm (5' 0.43) BSA 1.97 BMI 38.6 Temp 36.2 C (97.1 F) Pulse 72 BP 144/82 Resp 16 Pulse Ox 95% Room Air Concomitant medications reviewed per protocol: Yes Current Outpatient Medications Indication: Start date: Stop date: Medication Instructions albuterol (PROVENTIL) 2.5 mg, NEBULIZATION -UNSPEC, EVERY 6 HOURS NEEDED, 1 vial contains 3 ml. Asthma 20 years ago hasn't used in over a year albuterol HFA (VENTOLIN HFA) 90 mcg/actuation inhaler 2 Puffs, INHALATION, EVERY 4 HOURS NEEDED Asthma 20 years ago aspirin, enteric coated (ASPIRIN LOW DOSE) 81 mg, ORAL, DAILY Hx of [place] 10/2019 clopidogrel (PLAVIX) 75 mg, ORAL, DAILY Hx of [place] 10/2019 diclofenac sodium (VOLTAREN) 4 g, TOPICAL, 4 TIMES DAILY NEEDED Osteoarthritis 06/28/2020 docusate sodium (COLACE) 100 mg, ORAL, ONCE DAILY NEEDED Constipation 05/23/2013 esomeprazole (NEXIUM) 20 mg, ORAL, DAILY, (insurance states it covers Nexium OTC 20 mg) Esophageal reflux 06/06/2004 10/06/2021 fluticasone (FLONASE) 50 mcg/actuation nasal spray Use 2 Sprays in each nostril once daily. Rinse mouth after use. allergic rhinitis 08/29/2004 lisinopril (ZESTRIL, PRINIVIL) 5 mg, ORAL, DAILY Hx of [place] 10/2019 morphine SR (MS CONTIN) 30 mg, ORAL,EVERY 8 HOURS FOR PAIN. hip pain 09/10/2020 11/04/2020 Nebulizer NEBULIZER FOR HOME USE with supplies. DX: (J45.40) Moderate persistent asthma without complication (primary encounter diagnosis) asthma Patient has not been taking polyethylene glycol 3350 (MIRALAX) 17 g, ORAL, DAILY, NOT NEEDING NOW Constipation 05/23/2013 Maxalt 10 mg tab, 1 tab by mouth as needed, may repeat in 2 hours if needed Migraines 06/25/2013 potassium chloride ER (K-DUR, KLOR-CON) 20 mEq tablet 20 mEq, ORAL, one tab 3-4 times weekly per patient Low K+ 10/27/2020 Patient reports only taking one tablet daily 3-4 days per week (06/27/21) rosuvastatin (CRESTOR) 40 mg, ORAL, DAILY Dyslipidemia 02/27/2020 simethicone, chewable ([place]-ACID GAS RELIEF(SIMETHICON)) 80 mg, ORAL, EVERY 6 HOURS NEEDED Irritable bowel 10/16/2012 traZODone (DESYREL) 50 mg, ORAL, AT BEDTIME NEEDED Depression 07/26/2010 10/06/2021 verapamil ER (VERELAN) 120 mg 24 hr capsule Verapamil Verapamil Hcl Active 0 MG DAILY October 10, 2019 7:53am 10-10-2019 [facility] ([id number]) Hx [place] 10[place]2019 Motrin 800mg, 1 tab every 8 hours as prn Headaches 08/28/2016 Stopped 12/20/2020 but continue to take PRN Headaches 01/21/2008 Flexeril 10mg, 1 tab twice daily prn Muscles spasms 08/15/2005 Sennosides 17.2 mg ORAL 2 TIMES DAILY Constipation 10/18/2020 Percocet 5/325mg, [id number] prn Pain 11/05/2020 calcium-cholecalciferol, D3, (OSCAL+D ) 500 mg(1,250mg) -400 unit chewable tablet Supplement to support bone metastis 2020 11/22/2021 Chantix(varenicline) 0.5mg and 1mg start box Take 0.5 mg by mouth once daily on Days 1 through 3, THEN 0.5 mg twice daily on Days 4 through 7, THEN 1 mg twice daily on Day 8 and thereafter smoking cessation 01/10/2022 Promethazine(Phenergan) 25mg 1 tablet every 6 hours as needed for nausea nausea 11/20/2020 Omeprazole 20 mg 1 tablet tate Esophageal reflux 10/06/2021 Multivitamin 1 tablet daily Supplement 11/22/2021 Tessalon Perles 100 mg 1-3 capsules every 6-8 hours as needed for cough Cough Suppression 09/22/2022 Oxycodone 10 mg At bedtime for pain Pain 03/22/2022 Patient remains on Zometa 4 mg IV Q12 weeks for skeletal mets. Toxicities for Today: CTCAE 5 Fatigue: Grade 1: Start date:11/30/2020.Increased date:Possibly related to pembrolizumab. Drugs to Treat: None. Action Required: None. Outcome: Ongoing - Patient expressed worsened a little at this time, but does not meet Grade 2 and related to current move. Cough: Grade 1: Start date: 01/10/2021. Unlikely related to Pembrolizumab. Drugs to treat: Albuterol inhaler. Action Required: None. Outcome: Ongoing - Patient expressed worsened a little at this time, but does not meet Grade 2 and related to current move. Pain: (lower back pain that radiates into legs) Intermittent Grade 1. Start Date: approximately: 03/17/2021. Unrelated to pembrolizumab, related to sacral mets. Drugs to Treat: Percocet. Action Required: None. Outcome: Ongoing - Patient expressed worsened a little at this time, but does not meet Grade 2 and related to current move. Diarrhea: Intermittent Grade 1: Start Date: Prior to 2012. Unrelated to pembrolizumab, related to IBS. Drugs to Treat: Immodium. Action Required: None. Outcome: Ongoing. Hyperglycemia (Non-Fasting) Grade 1: Start Date: 01/24/2022. Unrelated to Pembrolizumab. Drugs to Treat: None. Action Required: None as value is non-fasting. Outcome: Ongoing. Alkaline Phosphatase Increase Grade 1: Start date: 03/28/2022 Drugs to Treat: None. Action Required: None. Action required: None Outcome: Ongoing. Hypertension Grade 1: Start date: 07/03/2022 Drugs to Treat: None. Action Required: None. Action required: None Outcome: Ongoing. Toxicities and Laboratory Results Not Gradable per CTCAE 5: Vision decreased: PRIOR TO STUDY. Unrelated to pembrolizumab. Patient states that she had a follow up appointment with her eye doctor and vision about the same since last exam a year ago. Recommended re-check in 1 year. NO changes Drugs to Treat: None. Action Required: None. Action required: None Outcome: Ongoing. Increased Chloride; Other: Grade 1; Start Date: 06/09/2022 Unrelated to Pembrolizumab: Action required: None. Outcome: Ongoing. Summary of Visits as below 07/24/2022: OV, labs, with treatment following 07/26/2022: Treatment C32 The provider has reviewed and verified the information included within this note, including AE information. Patient meets criteria for treatment, confirmed by Dr. Duncan and Carrie Preciado. [place] orders signed. Patient has contact information for Dr. Duncan/John's office as well as [facility] Department for any questions/concerns. PATRICIO Jacobson, RN, Clinical Research Nurse [phone] documented in this encounter [facility] 06-09-2022 History of Present illness Narrative IRB#: [id number], [facility]# [id number]: A Randomized, Phase III Study of Firstline Immunotherapy alone or in Combination with Chemotherapy in Induction/Maintenance or Postprogression in Advanced Nonsquamous Non-Small Cell Lung Cancer (NSCLC) with Immunobiomarker SIGNature-driven Analysis IC signed 09/13/2020 Randomized 09/22/2021 to treatment arm A: 1st line [id number] (pembrolizumab) followed by 2nd line Pemetrexed/Carboplatin. Study ID: [id number] Pt examined by on 06/09/2022 in anticipation of Cycle 30 for trial purposes (29 due to one missed here) (scheduled 06/13/2022) with patient of IRB# [id number] visit assessment. Patient remains on first line therapy. Patient feeling much better and denies any fevers since day three of isolation. Patient addressed that she would call with updates and informed that no medication changes or real updates. Patient down to smoking 1/2 a pack a day and vapes occasionally. Patient encouraged to reduce intake. Patient managing pain with hip with palliative care still. PE completed by Dr. Dakota MD. KPS 90%. ECOG 0 Resulted labs reviewed by Dr. Duncan who reports that patient will continue Pembrolizumab Cycle 30 (ARM A - first line) per study protocol. Orders signed and patient rescheduled for 06/13. Creatinine Clearance: 112 mL/min Quality of life questionnaire completed per protocol: Not Required per trial. Clinical trial draw completed per protocol: Not required until progression. VS completed per protocol: Yes 06/09/2022 Weight 90.3 kg (199 lb) BSA 0 BMI 0 Temp 36.4 C (97.6 F) Pulse 77 BP 123/59 Resp 16 Concomitant medications reviewed per protocol: Yes Current Outpatient Medications Indication: Start date: Stop date: Medication Instructions albuterol (PROVENTIL) 2.5 mg, NEBULIZATION -UNSPEC, EVERY 6 HOURS NEEDED, 1 vial contains 3 ml. Asthma 20 years ago hasn't used in over a year albuterol HFA (VENTOLIN HFA) 90 mcg/actuation inhaler 2 Puffs, INHALATION, EVERY 4 HOURS NEEDED Asthma 20 years ago aspirin, enteric coated (ASPIRIN LOW DOSE) 81 mg, ORAL, DAILY Hx of [place] 10/2019 clopidogrel (PLAVIX) 75 mg, ORAL, DAILY Hx of [place] 10/2019 diclofenac sodium (VOLTAREN) 4 g, TOPICAL, 4 TIMES DAILY NEEDED Osteoarthritis 06/28/2020 docusate sodium (COLACE) 100 mg, ORAL, ONCE DAILY NEEDED Constipation 05/23/2013 esomeprazole (NEXIUM) 20 mg, ORAL, DAILY, (insurance states it covers Nexium OTC 20 mg) Esophageal reflux 06/06/2004 10/06/2021 fluticasone (FLONASE) 50 mcg/actuation nasal spray Use 2 Sprays in each nostril once daily. Rinse mouth after use. allergic rhinitis 08/29/2004 lisinopril (ZESTRIL, PRINIVIL) 5 mg, ORAL, DAILY Hx of [place] 10/2019 morphine SR (MS CONTIN) 30 mg, ORAL,EVERY 8 HOURS FOR PAIN. hip pain 09/10/2020 11/04/2020 Nebulizer NEBULIZER FOR HOME USE with supplies. DX: (J45.40) Moderate persistent asthma without complication (primary encounter diagnosis) asthma Patient has not been taking polyethylene glycol 3350 (MIRALAX) 17 g, ORAL, DAILY, NOT NEEDING NOW Constipation 05/23/2013 Maxalt 10 mg tab, 1 tab by mouth as needed, may repeat in 2 hours if needed Migraines 06/25/2013 potassium chloride ER (K-DUR, KLOR-CON) 20 mEq tablet 20 mEq, ORAL, one tab 3-4 times weekly per patient Low K+ 10/27/2020 Patient reports only taking one tablet daily 3-4 days per week (06/27/21) rosuvastatin (CRESTOR) 40 mg, ORAL, DAILY Dyslipidemia 02/27/2020 simethicone, chewable ([place]-ACID GAS RELIEF(SIMETHICON)) 80 mg, ORAL, EVERY 6 HOURS NEEDED Irritable bowel 10/16/2012 traZODone (DESYREL) 50 mg, ORAL, AT BEDTIME NEEDED Depression 07/26/2010 10/06/2021 verapamil ER (VERELAN) 120 mg 24 hr capsule Verapamil Verapamil Hcl Active 0 MG DAILY October 10, 2019 7:53am 10-10-2019 [facility] ([id number]) Hx [place] 10/2019 Motrin 800mg, 1 tab every 8 hours as prn Headaches 08/28/2016 Stopped 12/20/2020 but continue to take PRN Headaches 01/21/2008 Flexeril 10mg, 1 tab twice daily prn Muscles spasms 08/15/2005 Sennosides 17.2 mg ORAL 2 TIMES DAILY Constipation 10/18/2020 Percocet 5/325mg, [id number] prn Pain 11/05/2020 calcium-cholecalciferol, D3, (OSCAL+D ) 500 mg(1,250mg) -400 unit chewable tablet Supplement to support bone metastis 2020 11/22/2021 Chantix(varenicline) 0.5mg and 1mg start box Take 0.5 mg by mouth once daily on Days 1 through 3, THEN 0.5 mg twice daily on Days 4 through 7, THEN 1 mg twice daily on Day 8 and thereafter smoking cessation 01/10/2022 Promethazine(Phenergan) 25mg 1 tablet every 6 hours as needed for nausea nausea 11/20/2020 Omeprazole 20 mg 1 tablet tate Esophageal reflux 10/06/2021 Multivitamin 1 tablet daily Supplement 11/22/2021 Tessalon Perles 100 mg 1-3 capsules every 6-8 hours as needed for cough Cough Suppression 09/22/2022 Oxycodone 10 mg At bedtime for pain Pain 03/22/2022 Patient remains on Zometa 4 mg IV Q12 weeks for skeletal mets. Toxicities for Today: CTCAE 5 Fatigue: Grade 1: Start date:11/30/2020.Increased date:Possibly related to pembrolizumab. Drugs to Treat: None. Action Required: None. Outcome: Ongoing - Patient expressed worsened a little at this time, but does not meet Grade 2 and related to current illness (potentially COVID). Cough: Grade 1: Start date: 01/10/2021. Unlikely related to Pembrolizumab. Drugs to treat: Albuterol inhaler. Action Required: None. Outcome: Ongoing - Patient expressed worsened a little during symptoms of COVID, but improved. It does not meet Grade 2 and related to current illness (potentially COVID). Pain: (lower back pain that radiates into legs) Intermittent Grade 1. Start Date: approximately: 03/17/2021. Unrelated to pembrolizumab, related to sacral mets. Drugs to Treat: Percocet. Action Required: None. Outcome: Ongoing. Diarrhea: Intermittent Grade 1: Start Date: Prior to 2012. Unrelated to pembrolizumab, related to IBS. Drugs to Treat: Immodium. Action Required: None. Outcome: Ongoing. Hyperglycemia (Non-Fasting) Grade 1: Start Date: 01/24/2022. Unrelated to Pembrolizumab. Drugs to Treat: None. Action Required: None as value is non-fasting. Outcome: Ongoing. Alkaline Phosphatase Increase Grade 1: Start date: 03/28/2022 Drugs to Treat: None. Action Required: None. Action required: None Outcome: Ongoing. Toxicities and Laboratory Results Not Gradable per CTCAE 5: Vision decreased: PRIOR TO STUDY. Unrelated to pembrolizumab. Patient states that she had a follow up appointment with her eye doctor and vision about the same since last exam a year ago. Recommended re-check in 1 year. NO changes Drugs to Treat: None. Action Required: None. Action required: None Outcome: Ongoing. Increased Chloride; Other: Grade 1; Start Date: Unrelated to Pembrolizumab: Action required: None. Outcome: Ongoing. Summary of Visits as below 07/03/2022: OV, labs, with treatment following 07/04/2022: Treatment C31 The provider has reviewed and verified the information included within this note, including AE information. Patient meets criteria for treatment, confirmed by Dr. Duncan. [place] orders signed. Patient has contact information for Dr. Duncan/John's office as well as [facility] Department for any questions/concerns. PATRICIO Jacobson, RN, Clinical Research Nurse [phone] documented in this encounter [facility] 05-25-2022 Note HNO ID: [id number] Author: Liza Canas RN Service: ? Author Type: Registered Nurse Type: Progress Notes Filed: 07/03/2022 10:32 AM Note Text: RECIST TUMOR MEASUREMENTS IRB #: [id number] / [id number] Image Modality: CT Image Date: 05/05/2022 and 05/24/2022 Date of Baseline Scan: 09/16/2020 Date of Comparison Scan: 02/10/2022 Research Nurse: Liza Canas Follow-Up Measurement Measurements Baseline 09/16/2021 Series / Image # Measurements 11/05/2020 Series/ Image Measurements 12/16/2020 Series/ Image Measurements 02/17/2021 Series/ Image Measurements 04/21/2021 Series/ Image Measurement 06/22/2021 Series/ Image Measurement 08/26/2021 Series/ Image Measurement 11/18/2021 Series/ Image Measurement 02/10/2022 Series/ Image Measurement 05/05/2022 Series/ Image 3.0 cm x 2.7 cm Series 9, Image 77 1.6 cm x 1.1 cm Series 9, Image 80 1.6 cm x 1.2 cm Series 9 Image 83 1.6 cm x 1.2 cm Series 9 Image 74 1.6 cm x 1 cm Series 9 Image 74 1.6 cm x 1 cm Series 6 Image 78 1.4 cm x 1 cm Series 9 Image 79 1.4 cm x 1 cm Series 6, Image 76 1.6 cm x 0.8 cm Series 9, Image 82 1.4 cm x 1.0 cm Series 6, Image 83 2.6 cm x 2.2 cm Series 7, Image 75 1.4 cm x 1.0 cm Series 7, Image 82 1.1 cm x 0.9 cm Series 7 Image 85 1.1 cm x 0.9 cm Series 7 Image 76 0.8 cm x 0.4 cm Series 7 Image 76 No longer visible Series 4 Image 78 Not visible N/A Not visible N/A Not visible N/A N/A N/A * Target lesion 1 - Right lower lobe nodule, 1.4 cm x 1.0 cm, (Series 6, Image 83), essentially stable. List Non-Target Lesion Site: None No considered immeasurable disease Appearance of New Lesion: No Sum of Lesions: 1.4 cm Baseline Sum ( 5.2 cm) Response: Partial Response ([place]) Measurements have been reviewed and approved by Dr. Anca Canas RN May 25, 2022 (Updated for edited RECIST 06/01/2022) [facility] 05-25-2022 History of Present illness Narrative RECIST TUMOR MEASUREMENTS IRB #: [id number] / [id number] Image Modality: CT Image Date: 05/05/2022 and Date of Baseline Scan: 09/16/2020 Date of Comparison Scan: 02/10/2022 Research Nurse: Liaz Canas Follow-Up Measurement Measurements Baseline 09/16/2021 Series / Image # Measurements 11/05/2020 Series/ Image Measurements 12/16/2020 Series/ Image Measurements 02/17/2021 Series/ Image Measurements 04/21/2021 Series/ Image Measurement 06/22/2021 Series/ Image Measurement 08/26/2021 Series/ Image Measurement 11/18/2021 Series/ Image Measurement 02/10/2022 Series/ Image Measurement 05/05/2022 Series/ Image 3.0 cm x 2.7 cm Series 9, Image 77 1.6 cm x 1.1 cm Series 9, Image 80 1.6 cm x 1.2 cm Series 9 Image 83 1.6 cm x 1.2 cm Series 9 Image 74 1.6 cm x 1 cm Series 9 Image 74 1.6 cm x 1 cm Series 6 Image 78 1.4 cm x 1 cm Series 9 Image 79 1.4 cm x 1 cm Series 6, Image 76 1.6 cm x 0.8 cm Series 9, Image 82 1.4 cm x 1.0 cm Series 6, Image 83 2.6 cm x 2.2 cm Series 7, Image 75 1.4 cm x 1.0 cm Series 7, Image 82 1.1 cm x 0.9 cm Series 7 Image 85 1.1 cm x 0.9 cm Series 7 Image 76 0.8 cm x 0.4 cm Series 7 Image 76 No longer visible Series 4 Image 78 Not visible N/A Not visible N/A Not visible N/A N/A N/A * Target lesion 1 - Right lower lobe nodule, 1.4 cm x 1.0 cm, (Series 6, Image 83), essentially stable. List Non-Target Lesion Site: None No considered immeasurable disease Appearance of New Lesion: No Sum of Lesions: 1.4 cm Baseline Sum ( 5.2 cm) Response: Partial Response ([place]) Measurements have been reviewed and approved by Dr. Anca Canas RN May 25, 2022 (Updated for edited RECIST 06/01/2022) documented in this encounter [facility] 05-24-2022 History of Present illness Narrative Radiology Service Progress Note DATE OF SERVICE: May 24, 2022 TIME: 12:37 PM PATIENT IDENTITY VERIFICATION COMPLETED USING TWO (2) STANDARD IDENTIFIERS: Name and Date of confirmed by patient verbally. FALL SCREENING: Has the patient had 2 falls in the last year or 1 fall with injury or currently using an Ambulatory Assistive Device (Walker, Cane, Wheelchair, Crutches, etc.)? No PATIENT GENDER DATA: PATIENT RELEVANT IMPLANT DATA REVIEWED: Not Applicable ALLERGIES: Reviewed and unchanged CONTRAST ALLERGY: NO. EXAM: CT -CONTRAST INDUCED NEPHROPATHY RISK FACTORS: Patient age > 60 years CREATININE: Creatinine Date Value Ref Range Status 05/23/2022 0.73 0.58 - 0.96 mg/dL Final 05/08/2022 0.81 0.58 - 0.96 mg/dL Final 04/17/2022 0.70 0.58 - 0.96 mg/dL Final Estimated Glomerular Filtration Rate Date Value Ref Range Status 05/23/2022 94 >=60 mL/min/1.73m Final Comment: Estimated Glomerular Filtration Rate (eGFR) is calculated using the 2020 CKD-EPI creatinine equation. This equation utilizes serum creatinine, sex, and age as parameters. The creatinine assay has traceable calibration to isotope dilution-mass spectrometry. Refer to KDIGO guidelines for clinical interpretation. In patients with unstable renal function, e.g. those with acute kidney injury, the eGFR may not accurately reflect actual GFR. eGFR- Date Value Ref Range Status 11/22/2021 >60 Final P.O.C.T. RESULTS: POC done: Yes, See Lab Tab May 24, 2022 TREATMENT: N/A PERIPHERAL IV DATA: Ambulatory: A peripheral IV was started in the Left hand with a Angio cath: 22 gauge. RADIOLOGY DEPARTMENT: CT; Exam(s) Completed: Abdomen SIGNATURE: RT Pete(R) PATIENT NAME: Lata Smith DATE: May 24, 2022 TIME: 12:37 PM documented in this encounter [facility] 05-23-2022 History of Present illness Narrative IRB#: [id number], [facility]# [id number]: A Randomized, Phase III Study of Firstline Immunotherapy alone or in Combination with Chemotherapy in Induction/Maintenance or Postprogression in Advanced Nonsquamous Non-Small Cell Lung Cancer (NSCLC) with Immunobiomarker SIGNature-driven Analysis IC signed 09/13/2020 Randomized 09/22/2021 to treatment arm A: 1st line MK-3475 (pembrolizumab) followed by 2nd line Pemetrexed/Carboplatin. Study ID: [id number] Huddleston on 05/08/2022 in anticipation of Cycle 29 (scheduled today 05/23/2022) This cycle was delayed due to potential COVID with patient of IRB# [id number] visit assessment. Patient remains on first line therapy. Patient feeling much better and denies any fevers since day three of isolation. Patient came for CT on Saturday 05/05 and due to note it did not state she needed abdomen and chest, so they only completed the chest. Patient will come tomorrow for abdomen CT 05/24. Patient addressed that she would call with updates and informed that no medication changes or real updates. PE completed by Dr. John MD. KPS 90%. ECOG 0 Resulted labs reviewed by Dr. Huddleston who reports that patient will continue Pembrolizumab Cycle 29 yesterday (ARM A - first line) per study protocol. Orders signed and patient rescheduled for 05/23. Creatinine Clearance: 116 mL/min Quality of life questionnaire completed per protocol: Not Required per trial. Clinical trial draw completed per protocol: Not required until progression. VS completed per protocol: Yes 05/23/2022 Weight 89.4 kg (197 lb) BSA 0 BMI 0 Temp 36.4 C (97.6 F) Pulse 77 BP 147/66 Pulse Ox 95% on room air Resp 16 Concomitant medications reviewed per protocol: Yes Current Outpatient Medications Indication: Start date: Stop date: Medication Instructions albuterol (PROVENTIL) 2.5 mg, NEBULIZATION -UNSPEC, EVERY 6 HOURS NEEDED, 1 vial contains 3 ml. Asthma 20 years ago hasn't used in over a year albuterol HFA (VENTOLIN HFA) 90 mcg/actuation inhaler 2 Puffs, INHALATION, EVERY 4 HOURS NEEDED Asthma 20 years ago aspirin, enteric coated (ASPIRIN LOW DOSE) 81 mg, ORAL, DAILY Hx of [place] 10/2019 clopidogrel (PLAVIX) 75 mg, ORAL, DAILY Hx of [place] 10/2019 diclofenac sodium (VOLTAREN) 4 g, TOPICAL, 4 TIMES DAILY NEEDED Osteoarthritis 06/28/2020 docusate sodium (COLACE) 100 mg, ORAL, ONCE DAILY NEEDED Constipation 05/23/2013 esomeprazole (NEXIUM) 20 mg, ORAL, DAILY, (insurance states it covers Nexium OTC 20 mg) Esophageal reflux 06/06/2004 10/06/2021 fluticasone (FLONASE) 50 mcg/actuation nasal spray Use 2 Sprays in each nostril once daily. Rinse mouth after use. allergic rhinitis 08/29/2004 lisinopril (ZESTRIL, PRINIVIL) 5 mg, ORAL, DAILY Hx of [place] 10/2019 morphine SR (MS CONTIN) 30 mg, ORAL,EVERY 8 HOURS FOR PAIN. hip pain 09/10/2020 11/04/2020 Nebulizer NEBULIZER FOR HOME USE with supplies. DX: (J45.40) Moderate persistent asthma without complication (primary encounter diagnosis) asthma Patient has not been taking polyethylene glycol 3350 (MIRALAX) 17 g, ORAL, DAILY, NOT NEEDING NOW Constipation 05/23/2013 Maxalt 10 mg tab, 1 tab by mouth as needed, may repeat in 2 hours if needed Migraines 06/25/2013 potassium chloride ER (K-DUR, KLOR-CON) 20 mEq tablet 20 mEq, ORAL, one tab 3-4 times weekly per patient Low K+ 10/27/2020 Patient reports only taking one tablet daily 3-4 days per week (06/27/21) rosuvastatin (CRESTOR) 40 mg, ORAL, DAILY Dyslipidemia 02/27/2020 simethicone, chewable ([place]-ACID GAS RELIEF(SIMETHICON)) 80 mg, ORAL, EVERY 6 HOURS NEEDED Irritable bowel 10/16/2012 traZODone (DESYREL) 50 mg, ORAL, AT BEDTIME NEEDED Depression 07/26/2010 10/06/2021 verapamil ER (VERELAN) 120 mg 24 hr capsule Verapamil Verapamil Hcl Active 0 MG DAILY October 10, 2019 7:53am 10-10-2019 [facility] ([id number]) Hx [place] 10/2019 Motrin 800mg, 1 tab every 8 hours as prn Headaches 08/28/2016 Stopped 12/20/2020 but continue to take PRN Headaches 01/21/2008 Flexeril 10mg, 1 tab twice daily prn Muscles spasms 08/15/2005 Sennosides 17.2 mg ORAL 2 TIMES DAILY Constipation 10/18/2020 Percocet 5/325mg, [id number] prn Pain 11/05/2020 calcium-cholecalciferol, D3, (OSCAL+D ) 500 mg(1,250mg) -400 unit chewable tablet Supplement to support bone metastis 2020 11/22/2021 Chantix(varenicline) 0.5mg and 1mg start box Take 0.5 mg by mouth once daily on Days 1 through 3, THEN 0.5 mg twice daily on Days 4 through 7, THEN 1 mg twice daily on Day 8 and thereafter smoking cessation 01/10/2022 Promethazine(Phenergan) 25mg 1 tablet every 6 hours as needed for nausea nausea 11/20/2020 Omeprazole 20 mg 1 tablet tate Esophageal reflux 10/06/2021 Multivitamin 1 tablet daily Supplement 11/22/2021 Tessalon Perles 100 mg 1-3 capsules every 6-8 hours as needed for cough Cough Suppression 09/22/2022 Oxycodone 10 mg At bedtime for pain Pain 03/22/2022 Patient remains on Zometa 4 mg IV Q12 weeks for skeletal mets. Toxicities for Today: CTCAE 5 Fatigue: Grade 1: Start date:11/30/2020.Increased date:Possibly related to pembrolizumab. Drugs to Treat: None. Action Required: None. Outcome: Ongoing - Patient expressed worsened a little at this time, but does not meet Grade 2 and related to current illness (potentially COVID). Cough: Grade 1: Start date: 01/10/2021. Unlikely related to Pembrolizumab. Drugs to treat: Albuterol inhaler. Action Required: None. Outcome: Ongoing - Patient expressed worsened a little during symptoms of COVID, but improved. It does not meet Grade 2 and related to current illness (potentially COVID). Pain: (lower back pain that radiates into legs) Intermittent Grade 1. Start Date: approximately: 03/17/2021. Unrelated to pembrolizumab, related to sacral mets. Drugs to Treat: Percocet. Action Required: None. Outcome: Ongoing. Diarrhea: Intermittent Grade 1: Start Date: Prior to 2012. Unrelated to pembrolizumab, related to IBS. Drugs to Treat: Immodium. Action Required: None. Outcome: Ongoing. Hyperglycemia (Non-Fasting) Grade 1: Start Date: 01/24/2022. Unrelated to Pembrolizumab. Drugs to Treat: None. Action Required: None as value is non-fasting. Outcome: Ongoing. Hypocalcemia Grade 1: Start Date:04/17/2022 Resolved: 05/08/2022 Started again: 05/23/2022 Drugs to Treat: None. Action Required: None. Action required: None Outcome: Resolved Alkaline Phosphatase Increase Grade 1: Start date: 03/28/2022 Drugs to Treat: None. Action Required: None. Action required: None Outcome: Ongoing. Toxicities and Laboratory Results Not Gradable per CTCAE 5: Vision decreased: PRIOR TO STUDY. Unrelated to pembrolizumab. Patient states that she had a follow up appointment with her eye doctor and vision about the same since last exam a year ago. Recommended re-check in 1 year. NO changes Drugs to Treat: None. Action Required: None. Action required: None Outcome: Ongoing. Resolved Toxicities: Aspartate Aminotransferase Decreased; Other; Grade 1: Start date: 04/17/2022 Resolved: 05/23/2022 Likely related to pembrolizumab, Drugs to Treat: None. Action Required: None. Action required: None Outcome: Resolved High Chloride; Other; Grade 1: Start date: 03/03/2022 Stop Date: 03/28/2022 Start date:04/17/2022 Resolved: 05/23/2022, Likely related to pembrolizumab, Drugs to Treat: None. Action Required: None. Action required: None Outcome: Resolved Lymphocyte Count Decreased Grade 2: Start Date:05/08/2022 Resolved Date: 05/23/2022, Likely related to pembrolizumab, Drugs to Treat: None. Action Required: None. Action required: None Outcome: Resolved Summary of Visits as below 05/23/2022: labs - Treatment C29 (Clarifying for Protocol if needed) 05/24/2022: Abdomen CT for study with RECIST (Clarifying for Protocol if needed) 06/09/2022: OV, labs, with treatment following Sunday C30 06/13/2022: Treatment C30 The provider has reviewed and verified the information included within this note, including AE information. Patient meets criteria for treatment, confirmed by Dr. Huddleston. [place] orders signed. Patient has contact information for Dr. Huddleston's office as well as [facility] Department for any questions/concerns. PATRICIO Jacobson, RN, Clinical Research Nurse [phone] documented in this encounter [facility] 05-11-2022 Miscellaneous Notes Call to patient and aware of Rx. Oneida Amaro RN Patient's request for medication is as follows Signed Prescriptions Disp Refills azithromycin (ZITHROMAX Z-TU) 250 mg tablet 7 tablet 0 Sig: Take 1 tablet by mouth once daily for 7 days. TAKE 2 TABS ON THE FIRST DAY, THEN ONE TAB DAILY FOR 4 DAYS. Authorizing Provider: ANCA HUDDLESTON Order entered - please phone pharmacy and notify patient. Anca Huddleston MD Patient states no fever x 2 days but has started with productive cough, green. This started last pm. Patient also c/o's of sore throat. She did not go to Urgent care and unable to see PCP for 2 weeks. Denies headache, chest pain, increased shortness of breath. Had 1 episode of diarrhea yesterday, took 1 Imodium and none since. No nausea. Patient is asking for antibiotics, she is aware that I will discuss with Dr. Huddleston and call back with any further instructions. Oneida Amaro RN Pt was told to call in if she was not feeling any better earlier this week. She still is not any better and wondering the next steps? Please advise. Pia Bryant documented in this encounter [facility] 05-09-2022 Miscellaneous Notes IRB#: [id number], [facility]# [id number]: A Randomized, Phase III Study of Firstline Immunotherapy alone or in Combination with Chemotherapy in Induction/Maintenance or Postprogression in Advanced Nonsquamous Non-Small Cell Lung Cancer (NSCLC) with Immunobiomarker SIGNature-driven Analysis IC signed 09/13/2020 Randomized 09/22/2021 to treatment arm A: 1st line [id number] (pembrolizumab) followed by 2nd line Pemetrexed/Carboplatin. Study ID: [id number] Huddleston on 05/08/2022 in anticipation of Cycle 29 (scheduled today 05/09/2022) of IRB# [id number] visit assessment. Patient remains on first line therapy. Patient denied changes in health yesterday, but called today and cancelled appointment due to increased cough, fever, and fatigue. Called patient and all assessment was completed over the phone and patient was not seen in office today, but was examined by yesterday. Patient came for CT on Sunday and due to note it did not state she needed abdomen and chest, so they only completed the chest. Patient was to come tomorrow for abdomen CT. Patient rescheduled treatment today, as well as, CT abdomen for two weeks out due to COVID like symptoms. Patient addressed that she would call with updates and informed that no medication changes or real updates outside of new symptoms. PE completed by Dr. John MD. KPS 90%. ECOG 0 Resulted labs reviewed by Dr. Huddleston who reports that patient will continue Pembrolizumab Cycle 29 yesterday (ARM A - first line) per study protocol. Orders signed and patient rescheduled for 05/23. Creatinine Clearance: 105 mL/min Quality of life questionnaire completed per protocol: Not Required per trial. Clinical trial draw completed per protocol: Not required until progression. VS completed per protocol: Yes 05/08/2022 Weight 90kg (198 8oz lb) BSA 0 BMI 0 Temp 36.4 C (97.6 F) Pulse 78 BP 108/64 Pulse Ox 95% on room air Resp 18 Concomitant medications reviewed per protocol: Yes Current Outpatient Medications Indication: Start date: Stop date: Medication Instructions albuterol (PROVENTIL) 2.5 mg, NEBULIZATION -UNSPEC, EVERY 6 HOURS NEEDED, 1 vial contains 3 ml. Asthma 20 years ago hasn't used in over a year albuterol HFA (VENTOLIN HFA) 90 mcg/actuation inhaler 2 Puffs, INHALATION, EVERY 4 HOURS NEEDED Asthma 20 years ago aspirin, enteric coated (ASPIRIN LOW DOSE) 81 mg, ORAL, DAILY Hx of [place] 10/2019 clopidogrel (PLAVIX) 75 mg, ORAL, DAILY Hx of [place] 10/2019 diclofenac sodium (VOLTAREN) 4 g, TOPICAL, 4 TIMES DAILY NEEDED Osteoarthritis 06/28/2020 docusate sodium (COLACE) 100 mg, ORAL, ONCE DAILY NEEDED Constipation 05/23/2013 esomeprazole (NEXIUM) 20 mg, ORAL, DAILY, (insurance states it covers Nexium OTC 20 mg) Esophageal reflux 06/06/2004 10/06/2021 fluticasone (FLONASE) 50 mcg/actuation nasal spray Use 2 Sprays in each nostril once daily. Rinse mouth after use. allergic rhinitis 08/29/2004 lisinopril (ZESTRIL, PRINIVIL) 5 mg, ORAL, DAILY Hx of [place] 10/2019 morphine SR (MS CONTIN) 30 mg, ORAL,EVERY 8 HOURS FOR PAIN. hip pain 09/10/2020 11/04/2020 Nebulizer NEBULIZER FOR HOME USE with supplies. DX: (J45.40) Moderate persistent asthma without complication (primary encounter diagnosis) asthma Patient has not been taking polyethylene glycol 3350 (MIRALAX) 17 g, ORAL, DAILY, NOT NEEDING NOW Constipation 05/23/2013 Maxalt 10 mg tab, 1 tab by mouth as needed, may repeat in 2 hours if needed Migraines 06/25/2013 potassium chloride ER (K-DUR, KLOR-CON) 20 mEq tablet 20 mEq, ORAL, one tab 3-4 times weekly per patient Low K+ 10/27/2020 Patient reports only taking one tablet daily 3-4 days per week (06/27/21) rosuvastatin (CRESTOR) 40 mg, ORAL, DAILY Dyslipidemia 02/27/2020 simethicone, chewable ([place]-ACID GAS RELIEF(SIMETHICON)) 80 mg, ORAL, EVERY 6 HOURS NEEDED Irritable bowel 10/16/2012 traZODone (DESYREL) 50 mg, ORAL, AT BEDTIME NEEDED Depression 07/26/2010 10/06/2021 verapamil ER (VERELAN) 120 mg 24 hr capsule Verapamil Verapamil Hcl Active 0 MG DAILY October 10, 2019 7:53am 10-10-2019 [facility] ([id number]) Hx [place] 10/2019 Motrin 800mg, 1 tab every 8 hours as prn Headaches 08/28/2016 Stopped 12/20/2020 but continue to take PRN Headaches 01/21/2008 Flexeril 10mg, 1 tab twice daily prn Muscles spasms 08/15/2005 Sennosides 17.2 mg ORAL 2 TIMES DAILY Constipation 10/18/2020 Percocet 5/325mg, [id number] prn Pain 11/05/2020 calcium-cholecalciferol, D3, (OSCAL+D ) 500 mg(1,250mg) -400 unit chewable tablet Supplement to support bone metastis 2020 11/22/2021 Chantix(varenicline) 0.5mg and 1mg start box Take 0.5 mg by mouth once daily on Days 1 through 3, THEN 0.5 mg twice daily on Days 4 through 7, THEN 1 mg twice daily on Day 8 and thereafter smoking cessation 01/10/2022 Promethazine(Phenergan) 25mg 1 tablet every 6 hours as needed for nausea nausea 11/20/2020 Omeprazole 20 mg 1 tablet tate Esophageal reflux 10/06/2021 Multivitamin 1 tablet daily Supplement 11/22/2021 Tessalon Perles 100 mg 1-3 capsules every 6-8 hours as needed for cough Cough Suppression 09/22/2022 Oxycodone 10 mg At bedtime for pain Pain 03/22/2022 Patient remains on Zometa 4 mg IV Q12 weeks for skeletal mets. Toxicities for Today: CTCAE 5 Fatigue: Grade 1: Start date:11/30/2020.Increased date:Possibly related to pembrolizumab. Drugs to Treat: None. Action Required: None. Outcome: Ongoing - Patient expressed worsened a little at this time, but does not meet Grade 2 and related to current illness (potentially COVID). Cough: Grade 1: Start date: 01/10/2021. Unlikely related to Pembrolizumab. Drugs to treat: Albuterol inhaler. Action Required: None. Outcome: Ongoing - Patient expressed worsened a little at this time, but does not meet Grade 2 and related to current illness (potentially COVID). Pain: (lower back pain that radiates into legs) Intermittent Grade 1. Start Date: approximately: 03/17/2021. Unrelated to pembrolizumab, related to sacral mets. Drugs to Treat: Percocet. Action Required: None. Outcome: Ongoing. Diarrhea: Intermittent Grade 1: Start Date: Prior to 2012. Unrelated to pembrolizumab, related to IBS. Drugs to Treat: Immodium. Action Required: None. Outcome: Ongoing. Hyperglycemia (Non-Fasting) Grade 1: Start Date: 01/24/2022. Unrelated to Pembrolizumab. Drugs to Treat: None. Action Required: None as value is non-fasting. Outcome: Ongoing. Hypoalbuminemia Grade 1: Start Date:04/17/2022 Drugs to Treat: None. Action Required: None. Action required: None Outcome: Ongoing Lymphocyte Count Decreased Grade 2: Start Date:05/08/2022 Drugs to Treat: None. Action Required: None. Action required: None Outcome: Ongoing Toxicities and Laboratory Results Not Gradable per CTCAE 5: Vision decreased: PRIOR TO STUDY. Patient states that she had a follow up appointment with her eye doctor and vision about the same since last exam a year ago. Recommended re-check in 1 year. NO changes High Chloride: Start date: 03/03/2022 Stop Date: 03/28/2022 Start date:04/17/2022 Drugs to Treat: None. Action Required: None. Action required: None Outcome: Resolved Aspartate Aminotransferase Decreased: Start date: 04/17/2022 Drugs to Treat: None. Action Required: None. Action required: None Outcome: Ongoing. Resolved Toxicities: Hypocalcemia Grade 1: Start Date:04/17/2022 Resolved: 05/08/2022 Drugs to Treat: None. Action Required: None. Action required: None Outcome: Resolved Hypoalbuminemia Grade 1: Start Date:04/17/2022 Resolved:05/08/2022 Drugs to Treat: None. Action Required: None. Action required: None Outcome: Resolved Low C02: Start date: 03/03/2022 Stop Date: 03/28/2022 Start date: 04/17/2022 Stop Date: 05/08/2022 Drugs to Treat: None. Action Required: None. Action required: None Outcome: Resolved Summary of Visits as below 05/23/2022: labs - Treatment C29 (Clarifying for Protocol if needed) 05/24/2022: Abdomen CT for study with RECIST (Clarifying for Protocol if needed) 06/09/2022: OV, labs, with treatment following Sunday C30 06/13/2022: Treatment C30 The provider has reviewed and verified the information included within this note, including AE information. Patient meets criteria for treatment, confirmed by Dr. Huddleston. [place] orders signed. Patient has contact information for Dr. Huddleston's office as well as [facility] Department for any questions/concerns. PATRICIO Jacobson, RN, Clinical Research Nurse [phone] documented in this encounter [facility] 05-09-2022 Miscellaneous Notes Spoke with PT ok with pushing appointments back two weeks. Stated she was good with checking her [facility] for updated appointments. PT is scheduled. Tameka Bell Call to patient and aware. She states she will go to Urgent care or ED if she continues with fever throughout today or symptoms worsen. PSS: please call patient and reschedule appointments. Oneida Amaro RN Her complete blood count and chemistry were okay yesterday. Go to urgent care or see PCP for fever. Reschedule for treatment next week. nAca Huddleston MD Patient states that she started with a fever and cough last pm. Last pm, temp 101.3F and this am 101.0F. States she is taking Oxycodone for pain and that has been bringing her temperatures down but they have been coming back. The only other new symptom is a more persistent cough that is occasionally productive, clear sputum. Denies shortness of breath, maybe a headache. No new pain, nausea, diarrhea. Patient denies any sick contacts recently that she is aware of. Patient would like to reschedule her treatment and CT's this week until symptoms resolve. Patient to call with any new or worsening symptoms. She is aware that I will discuss with Dr. Huddleston and call with any further instructions. Oneida Amaro RN Pt called in stating that she is running a fever. She is suppose to come in this afternoon for treatment and would like to r/s. Also wondering if she should cancel her CT tomorrow or leave it as scheduled? Please advise. Pia Bryant documented in this encounter [facility] 05-08-2022 History of Present illness Narrative PATIENT NAME: Lata Smith. CLINIC NO: [id number]. ATTENDING PHYSICIAN: Anca Huddleston MD. DATE OF SERVICE: 05/08/2022 DIAGNOSIS: Stage IV, non-small cell (adenocarcinoma) lung cancer HPI: 61-year-old lady with history of hypertension cardiovascular disease recent [place] in October 2019, status post coronary stents x3 on Plavix and aspirin who presented with worsening shortness of breath and hemoptysis for several months. Patient was seen in primary care clinic in May was treated with antibiotic without improvement. She was seen by Dr. Castillo and a CT chest revealed a lung mass and mediastinal adenopathy. She had no fever Chills, rigor, pleuritic chest pain, chest trauma. She has stable exertional dyspnea with activities of daily living, and exertional wheezing. She also complained of severe right hip pain along with pressure on her right side of her chest for couple months. Her staging PET scan on 08/03/2020 unfortunately showed metastatic disease. She had bronchoscopy and EBUS biopsy of the mediastinal lymph node on 08/19/2020. Biopsy was consistent with non-small cell, favoring adenocarcinoma the lung. She is here today to discuss treatment option for metastatic lung cancer. Patient is lives with an adult son. She is quit smoking since October after her heart attack. She denied any any weight loss since her heart attack. She has no hoarseness or dysphagia. No headaches or neurological symptoms. She has severe right hip pain secondary to metastatic disease. MRI scan of brain shows no evidence of metastatic disease. She completed palliative radiation therapy to her right hip. Current Treatment: Pembrolizumab Interim history: She is doing well on Pembrolizumab with no side effects. She has no abdominal pain, bloating, diarrhea or jaundice. She has no jaw pain or dental issues on Zometa. She has a chronic cough, but no chest pain or shortness of breath. Chronic back and hip pain controlled with oxycodone/acetaminophen and ibuprofen. All medications & allergies updated and reviewed by me. REVIEW OF SYSTEMS: CONSTITUTIONAL: No fevers, chills, nightsweats, unintended weight loss HEENT: Denies frequent or severe heaches, nasal congestion/sinus symptoms, problematic allergy problems. EYES: No diplopia or blurry vision. CARDIOVASCULAR: No chest pain, dyspnea, palpitations, orthopnea, PND, ankle edema. PULM: No dyspnea, unexplained cough. GI: No dysphagia/odynophagia, problematic reflux, constipation, diarrhea, changes in stool habits, hematochezia, melena. : No new urinary complaints, including dysuria, gross hematuria or pyuria. NEURO: No new balance problems, peripheral weakness/paresthesias or numbness of concern. MUSC-SKEL: No new joint pain, swelling, or erythema. PSY: No concerns regarding depression, anxiety or panic. INTEGUMENTARY: No new skin changes (rash, new or changing mole, new growth) PHYSICAL EXAMINATION: 61 year-old lady appears to be in no acute distress Performance status 90% BP 108/64 Pulse 78 Temp (Src) 97.6 (Temporal) Wt 198 lb 8 oz (90.0kg) SpO2 95% LMP 11/04/2012 HEENT: Head is normocephalic, atraumatic. Sclerae white, conjunctivae pink. PEERL. EOMs are intact. Oropharynx is benign. LYMPHATICS: There is no palpable adenopathy in the neck, supraclavicular region, axillae, or groin. LUNGS: Lungs are clear to percussion and auscultation. No wheezing. HEART: Heart is normal without murmurs, gallops, or rubs. ABDOMEN: Soft and nontender without organomegaly. No masses can be palpated. EXTREMITIES: Are without edema. NEUROLOGIC: Exam is physiologic LABORATORY DATA: Component Latest Ref Rng & Units 05/08/2022 WBC 3.70 - 11.00 k/uL 7.23 RBC 3.90 - 5.20 m/uL 4.47 Hemoglobin 11.5 - 15.5 g/dL 13.2 Hematocrit 36.0 - 46.0 % 40.0 MCV 80.0 - 100.0 fL 89.5 MCH 26.0 - 34.0 pg 29.5 MCHC 30.5 - 36.0 g/dL 33.0 RDW-CV 11.5 - 15.0 % 13.2 Platelet Count 150 - 400 k/uL 168 MPV 9.0 - 12.7 fL 9.7 Neut% % 81.3 Abs Neut (ANC) 1.45 - 7.50 k/uL 5.88 Lymph% % 10.7 Abs Lymph 1.00 - 4.00 k/uL 0.77 (L) [place]% % 5.0 Abs [place] <0.87 k/uL 0.36 Eosin% % 1.9 Abs Eosin <0.46 k/uL 0.14 Baso% % 0.8 Abs Baso <0.11 k/uL 0.06 Immature Gran % % 0.3 IMMATURE GRANS (ABS) <0.10 k/uL <0.03 NRBC /100 WBC 0.0 Absolute nRBC <0.01 k/uL <0.01 DTYPE Auto Component Latest Ref Rng & Units 05/08/2022 Protein, Total 6.3 - 8.0 g/dL 6.9 Albumin 3.9 - 4.9 g/dL 4.1 Calcium 8.5 - 10.2 mg/dL 8.6 Bilirubin, Total 0.2 - 1.3 mg/dL 0.3 Alkaline Phosphatase 34 - 123 U/L 122 AST 13 - 35 U/L 12 (L) ALT 7 - 38 U/L 14 Glucose 74 - 99 mg/dL 116 (H) BUN 7 - 21 mg/dL 9 Creatinine 0.58 - 0.96 mg/dL 0.81 Sodium 136 - 144 mmol/L 140 Potassium 3.7 - 5.1 mmol/L 3.7 Chloride 97 - 105 mmol/L 106 (H) CO2 22 - 30 mmol/L 22 Anion Gap 9 - 18 mmol/L 12 eGFR >=60 mL/min/1.73m 83 TSH 0.270 - 4.200 mIU/L 3.200 Amylase 30 - 104 U/L 59 Lipase 16 - 61 U/L 31 Cortisol 4.8 - 19.5 ug/dL 18.9 CT CHEST: Unchanged compared to February 10, 2022 IMPRESSION: Stable bilateral pulmonary nodules as described above. No new nodules identified. No CT evidence of lymphadenopathy in the chest ASSESSMENT/PLAN: 61-year-old lady with history of COPD, coronary artery disease with metastatic non-small cell lung cancer.(Right lower lobe-favoring adenocarcinoma) extensive bone metastasis with a large lytic lesion in the right sacrum. 1) metastatic non-small cell (adenocarcinoma) with extensive bone metastasis PD-L1 expression 100% ROS1 & RET not detected. BRAF No variant detected [Reference Sequence: ([id number])]. EGFR - No variant detected [Reference Sequence: ([id number])]. HER2 (ERBB2) - No variant detected [Reference sequence: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 150 - 400 k/uL 189 MPV 9.0 - 12.7 fL 9.8 Neut% % 72.9 Abs Neut (ANC) 1.45 - 7.50 k/uL 5.30 Lymph% % 17.2 Abs Lymph 1.00 - 4.00 k/uL 1.25 [place]% % 5.9 Abs [place] <0.87 k/uL 0.43 Eosin% % 2.6 Abs Eosin <0.46 k/uL 0.19 Baso% % 0.8 Abs Baso <0.11 k/uL 0.06 Immature Gran % % 0.6 IMMATURE GRANS (ABS) <0.10 k/uL 0.04 NRBC /100 WBC 0.0 Absolute nRBC <0.01 k/uL <0.01 DTYPE Auto Component Latest Ref Rng & Units 03/28/2022 Protein, Total 6.3 - 8.0 g/dL 6.9 Albumin 3.9 - 4.9 g/dL 4.0 Calcium 8.5 - 10.2 mg/dL 8.6 Bilirubin, Total 0.2 - 1.3 mg/dL 0.2 Alkaline Phosphatase 34 - 123 U/L 128 (H) AST 13 - 35 U/L 13 ALT 7 - 38 U/L 14 Glucose 74 - 99 mg/dL 131 (H) BUN 7 - 21 mg/dL 12 Creatinine 0.58 - 0.96 mg/dL 0.84 Sodium 136 - 144 mmol/L 139 Potassium 3.7 - 5.1 mmol/L 4.4 Chloride 97 - 105 mmol/L 105 CO2 22 - 30 mmol/L 23 Anion Gap 9 - 18 mmol/L 11 eGFR >=60 mL/min/1.73m 80 Amylase 30 - 104 U/L 70 TSH 0.270 - 4.200 mIU/L 2.110 Lipase 16 - 61 U/L 33 Cortisol 4.8 - 19.5 ug/dL 5.0 ASSESSMENT/PLAN: 61-year-old lady with history of COPD, coronary artery disease with metastatic non-small cell lung cancer.(Right lower lobe-favoring adenocarcinoma) extensive bone metastasis with a large lytic lesion in the right sacrum. 1) metastatic non-small cell (adenocarcinoma) with extensive bone metastasis PD-L1 expression 100% ROS1 & RET not detected. BRAF No variant detected [Reference Sequence: ([id number])]. EGFR - No variant detected [Reference Sequence: ([id number])]. HER2 (ERBB2) - No variant detected [Reference sequence: ([id number])]. KRAS A sequence change: c.34_35delinsTT (p.Hnd55Eot) was detected at approximately 30% allelic proportion (depth of coverage at change 5410)[Reference Sequence: ([id number])]. MET- No variant detected [Reference Sequence: ([id number])]. -She has stable disease on Pembrolizumab (complete response from the beginning of her treatment) -Tolerating Pembrolizumab; without toxicity. -Stable disease on imaging Plan: -Continue Pembrolizumab every 21 days per study protocol. 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 -Pain is controlled Plan: -Continue Ibuprfen or Percocet as needed for pain. (Alternate between or anti-inflammatory effects of ibuprofen) -Senokot 2 tablet twice daily & MiraLAX as needed for constipation. 3) dyspnea and cough secondary to COPD /tobacco use Plan -Encourage patient to stop smoking -Continue Proventil nebulizer as needed -Follow-up with PCP for smoking cessation Portions of this documentation were copied and pasted from previous office visit notes in order to provide a cohesive continuity of the history. The note has been reviewed and edited and updated as necessary. Anca Huddleston MD Cc: Fiona Durant MD documented in this encounter [facility] 03-28-2022 History of Present illness Narrative IRB#: [id number], [facility]# [id number]: A Randomized, Phase III Study of Firstline Immunotherapy alone or in Combination with Chemotherapy in Induction/Maintenance or Postprogression in Advanced Nonsquamous Non-Small Cell Lung Cancer (NSCLC) with Immunobiomarker SIGNature-driven Analysis IC signed 09/13/2020 Randomized 09/22/2021 to treatment arm A: 1st line MK-3475 (pembrolizumab) followed by 2nd line Pemetrexed/Carboplatin. Study ID: [id number] Huddleston on 03/28/2022 in anticipation of Cycle 27 (scheduled 03/29/2022) of IRB# [id number] visit assessment. Patient remains on first line therapy. Patient denies changes in health, but expressed a continued improvement with cough. She feels it is almost completely gone, but wouldn't say it is gone. Patient feels fatigue is better and she is moving more. Her generalized pain is about the same. Patient started Chantix again and said she's down to one pack every four to five days which is an improvement from her last visit she says. She is still drinking a glass of wine about once or twice a month. Palliative still seeing patient, but not often. They requested she take oxycodone at bedtime versus Percocet. John discussed with patient decreasing Percocet use and alternating with motrin. Patient is not using Motrin and really only taking Percocet - about three a day on average. Patients next Zometa due in May. PE completed by Dr. John MD. KPS 90%. ECOG 0 Resulted labs reviewed by Dr. Huddleston who reports that patient will continue Pembrolizumab Cycle 27 while this RN was in the room (ARM A - first line) per study protocol. Orders signed. Creatinine Clearance: 100 mL/min Quality of life questionnaire completed per protocol: Not Required per trial. Clinical trial draw completed per protocol: Not required until progression. VS completed per protocol: Yes 03/28/2022 Weight 88.9 kg (196 lb) BSA 0 BMI 0 Temp 36.1 C (96.9 F) Pulse 74 BP 109/54 Pulse Ox 95% Room Air Resp 16 Concomitant medications reviewed per protocol: Yes Current Outpatient Medications Indication: Start date: Stop date: Medication Instructions albuterol (PROVENTIL) 2.5 mg, NEBULIZATION -UNSPEC, EVERY 6 HOURS NEEDED, 1 vial contains 3 ml. Asthma 20 years ago hasn't used in over a year albuterol HFA (VENTOLIN HFA) 90 mcg/actuation inhaler 2 Puffs, INHALATION, EVERY 4 HOURS NEEDED Asthma 20 years ago aspirin, enteric coated (ASPIRIN LOW DOSE) 81 mg, ORAL, DAILY Hx of [place] 10/2019 clopidogrel (PLAVIX) 75 mg, ORAL, DAILY Hx of [place] 10/2019 diclofenac sodium (VOLTAREN) 4 g, TOPICAL, 4 TIMES DAILY NEEDED Osteoarthritis 06/28/2020 docusate sodium (COLACE) 100 mg, ORAL, ONCE DAILY NEEDED Constipation 05/23/2013 esomeprazole (NEXIUM) 20 mg, ORAL, DAILY, (insurance states it covers Nexium OTC 20 mg) Esophageal reflux 06/06/2004 10/06/2021 fluticasone (FLONASE) 50 mcg/actuation nasal spray Use 2 Sprays in each nostril once daily. Rinse mouth after use. allergic rhinitis 08/29/2004 lisinopril (ZESTRIL, PRINIVIL) 5 mg, ORAL, DAILY Hx of [place] 10/2019 morphine SR (MS CONTIN) 30 mg, ORAL,EVERY 8 HOURS FOR PAIN. hip pain 09/10/2020 11/04/2020 Nebulizer NEBULIZER FOR HOME USE with supplies. DX: (J45.40) Moderate persistent asthma without complication (primary encounter diagnosis) asthma Patient has not been taking polyethylene glycol 3350 (MIRALAX) 17 g, ORAL, DAILY, NOT NEEDING NOW Constipation 05/23/2013 Maxalt 10 mg tab, 1 tab by mouth as needed, may repeat in 2 hours if needed Migraines 06/25/2013 potassium chloride ER (K-DUR, KLOR-CON) 20 mEq tablet 20 mEq, ORAL, one tab 3-4 times weekly per patient Low K+ 10/27/2020 Patient reports only taking one tablet daily 3-4 days per week (06/27/21) rosuvastatin (CRESTOR) 40 mg, ORAL, DAILY Dyslipidemia 02/27/2020 simethicone, chewable ([place]-ACID GAS RELIEF(SIMETHICON)) 80 mg, ORAL, EVERY 6 HOURS NEEDED Irritable bowel 10/16/2012 traZODone (DESYREL) 50 mg, ORAL, AT BEDTIME NEEDED Depression 07/26/2010 10/06/2021 verapamil ER (VERELAN) 120 mg 24 hr capsule Verapamil Verapamil Hcl Active 0 MG DAILY October 10, 2019 7:53am 10-10-2019 [facility] ([id number]) Hx [place] 10/2019 Motrin 800mg, 1 tab every 8 hours as prn Headaches 08/28/2016 Stopped 12/20/2020 but continue to take PRN Headaches 01/21/2008 Flexeril 10mg, 1 tab twice daily prn Muscles spasms 08/15/2005 Sennosides 17.2 mg ORAL 2 TIMES DAILY Constipation 10/18/2020 Percocet 5/325mg, [id number] prn Pain 11/05/2020 calcium-cholecalciferol, D3, (OSCAL+D ) 500 mg(1,250mg) -400 unit chewable tablet Supplement to support bone metastis 2020 11/22/2021 Chantix(varenicline) 0.5mg and 1mg start box Take 0.5 mg by mouth once daily on Days 1 through 3, THEN 0.5 mg twice daily on Days 4 through 7, THEN 1 mg twice daily on Day 8 and thereafter smoking cessation 01/10/2022 Promethazine(Phenergan) 25mg 1 tablet every 6 hours as needed for nausea nausea 11/20/2020 Omeprazole 20 mg 1 tablet tate Esophageal reflux 10/06/2021 Multivitamin 1 tablet daily Supplement 11/22/2021 Tessalon Perles 100 mg 1-3 capsules every 6-8 hours as needed for cough Cough Suppression 09/22/2022 Oxycodone 10 mg At bedtime for pain Pain 03/22/2022 Patient remains on Zometa 4 mg IV Q12 weeks for skeletal mets. Toxicities for Today: CTCAE 5 Fatigue: Grade 1: Start date:11/30/2020. Possibly related to pembrolizumab. Drugs to Treat: None. Action Required: None. Outcome: Improving - Ongoing but improving. Cough: Grade 1: Start date: 01/10/2021. Unlikely related to Pembrolizumab. Drugs to treat: Albuterol inhaler. Action Required: None. Outcome: Improving immensely per patient - Ongoing but improving. Pain: (lower back pain that radiates into legs) Intermittent Grade 1. Start Date: approximately: 03/17/2021. Unrelated to pembrolizumab, related to sacral mets. Drugs to Treat: Percocet. Action Required: None. Outcome: Ongoing. Diarrhea: Intermittent Grade 1: Start Date: Prior to 2012. Unrelated to pembrolizumab, related to IBS. Drugs to Treat: Immodium. Action Required: None. Outcome: Ongoing. Hyperglycemia (Non-Fasting) Grade 1: Start Date: 01/24/2022. Unrelated to Pembrolizumab. Drugs to Treat: None. Action Required: None as value is non-fasting. Outcome: Ongoing. Hypokalemia: Grade 1: Start date:02/13/2022. Stop date: 03/28/2022 Possibly related to pembrolizumab. Drugs to Treat: None. Action Required: None. Outcome: Ongoing. Alkaline Phosphatase Increase Grade 1: Start date: 03/28/2022 Drugs to Treat: None. Action Required: None. Action required: None Outcome: Ongoing. Toxicities and Laboratory Results Not Gradable per CTCAE 5: Vision decreased: PRIOR TO STUDY. Patient states that she had a follow up appointment with her eye doctor and vision about the same since last exam a year ago. Recommended re-check in 1 year. NO changes Low C02: Start date: 03/03/2022 Stop Date: 03/28/2022 Drugs to Treat: None. Action Required: None. Action required: None Outcome: Ongoing. High Chloride: Start date: 03/03/2022 Stop Date: 03/28/2022 Drugs to Treat: None. Action Required: None. Action required: None Outcome: Ongoing. Summary of Visits as below 03/29/2022: Treatment C27 04/17/2022: OV, labs +TSH, with treatment next day C28 04/18/2022: Treatment C28 Scans before treatment C29 The provider has reviewed and verified the information included within this note, including AE information. Patient meets criteria for treatment, confirmed by Dr. Huddleston. [place] orders signed. Patient has contact information for Dr. Huddleston's office as well as [facility] Department for any questions/concerns. PATRICIO Jacobson, RN, Clinical Research Nurse [phone] documented in this encounter [facility] 03-03-2022 History of Present illness Narrative IRB#: [id number], [facility]# [id number]: A Randomized, Phase III Study of Firstline Immunotherapy alone or in Combination with Chemotherapy in Induction/Maintenance or Postprogression in Advanced Nonsquamous Non-Small Cell Lung Cancer (NSCLC) with Immunobiomarker SIGNature-driven Analysis IC signed 09/13/2020 Randomized 09/22/2021 to treatment arm A: 1st line MK-3475 (pembrolizumab) followed by 2nd line Pemetrexed/Carboplatin. Study ID: [id number] Huddleston on 03/03/2022 in anticipation of Cycle 26 (scheduled 03/08/2022) of IRB# [id number] visit assessment. Patient remains on first line therapy. Patient denies changes in health, but expressed a huge improvement overall with cough. She feels it is almost completely gone, but wouldn't say it is gone. Patient feels fatigue is better and she is moving more. Her generalized pain is about the same. Patient started Chantix again and said she's down to one pack a week which is an improvement from her last visit. She is drinking a glass of wine about once or twice a month. Palliative still seeing patient, but not often. John discussed with patient decreasing Percocet use and alternating with motrin. Patients next Zometa due in May. PE completed by Dr. John MD. KPS 90%. ECOG 0 Resulted labs reviewed by Dr. Huddleston who reports that patient will continue Pembrolizumab Cycle 26 (ARM A - first line) per study protocol. Orders signed. Creatinine Clearance: 106 mL/min Quality of life questionnaire completed per protocol: Not Required per trial. Clinical trial draw completed per protocol: Not required until progression. VS completed per protocol: Yes 03/03/2022 Weight 88.7 kg (195 lb 8 oz) BSA 0 BMI 0 Temp 36.5 C (97.7 F) Pulse 75 BP 111/59 Resp 18 Concomitant medications reviewed per protocol: Yes Current Outpatient Medications Indication: Start date: Stop date: Medication Instructions albuterol (PROVENTIL) 2.5 mg, NEBULIZATION -UNSPEC, EVERY 6 HOURS NEEDED, 1 vial contains 3 ml. Asthma 20 years ago hasn't used in over a year albuterol HFA (VENTOLIN HFA) 90 mcg/actuation inhaler 2 Puffs, INHALATION, EVERY 4 HOURS NEEDED Asthma 20 years ago aspirin, enteric coated (ASPIRIN LOW DOSE) 81 mg, ORAL, DAILY Hx of [place] 10/2019 clopidogrel (PLAVIX) 75 mg, ORAL, DAILY Hx of [place] 10/2019 diclofenac sodium (VOLTAREN) 4 g, TOPICAL, 4 TIMES DAILY NEEDED Osteoarthritis 06/28/2020 docusate sodium (COLACE) 100 mg, ORAL, ONCE DAILY NEEDED Constipation 05/23/2013 esomeprazole (NEXIUM) 20 mg, ORAL, DAILY, (insurance states it covers Nexium OTC 20 mg) Esophageal reflux 06/06/2004 10/06/2021 fluticasone (FLONASE) 50 mcg/actuation nasal spray Use 2 Sprays in each nostril once daily. Rinse mouth after use. allergic rhinitis 08/29/2004 lisinopril (ZESTRIL, PRINIVIL) 5 mg, ORAL, DAILY Hx of [place] 10/2019 morphine SR (MS CONTIN) 30 mg, ORAL,EVERY 8 HOURS FOR PAIN. hip pain 09/10/2020 11/04/2020 Nebulizer NEBULIZER FOR HOME USE with supplies. DX: (J45.40) Moderate persistent asthma without complication (primary encounter diagnosis) asthma Patient has not been taking polyethylene glycol 3350 (MIRALAX) 17 g, ORAL, DAILY, NOT NEEDING NOW Constipation 05/23/2013 Maxalt 10 mg tab, 1 tab by mouth as needed, may repeat in 2 hours if needed Migraines 06/25/2013 potassium chloride ER (K-DUR, KLOR-CON) 20 mEq tablet 20 mEq, ORAL, one tab 3-4 times weekly per patient Low K+ 10/27/2020 Patient reports only taking one tablet daily 3-4 days per week (06/27/21) rosuvastatin (CRESTOR) 40 mg, ORAL, DAILY Dyslipidemia 02/27/2020 simethicone, chewable ([place]-ACID GAS RELIEF(SIMETHICON)) 80 mg, ORAL, EVERY 6 HOURS NEEDED Irritable bowel 10/16/2012 traZODone (DESYREL) 50 mg, ORAL, AT BEDTIME NEEDED Depression 07/26/2010 10/06/2021 verapamil ER (VERELAN) 120 mg 24 hr capsule Verapamil Verapamil Hcl Active 0 MG DAILY October 10, 2019 7:53am 10-10-2019 [facility] ([id number]) Hx [place] 10/2019 Headaches 08/28/2016 12/20/2020 Headaches 01/21/2008 Flexeril 10mg, 1 tab twice daily prn Muscles spasms 08/15/2005 Sennosides 17.2 mg ORAL 2 TIMES DAILY Constipation 10/18/2020 Percocet 5/325mg, [id number] prn Pain 11/05/2020 calcium-cholecalciferol, D3, (OSCAL+D ) 500 mg(1,250mg) -400 unit chewable tablet Supplement to support bone metastis 2020 11/22/2021 Chantix(varenicline) 0.5mg and 1mg start box Take 0.5 mg by mouth once daily on Days 1 through 3, THEN 0.5 mg twice daily on Days 4 through 7, THEN 1 mg twice daily on Day 8 and thereafter smoking cessation 01/10/2022 Promethazine(Phenergan) 25mg 1 tablet every 6 hours as needed for nausea nausea 11/20/2020 Omeprazole 20 mg 1 tablet tate Esophageal reflux 10/06/2021 Multivitamin 1 tablet daily Supplement 11/22/2021 Tessalon Perles 100 mg 1-3 capsules every 6-8 hours as needed for cough Cough Suppression 09/22/2022 Patient remains on Zometa 4 mg IV Q12 weeks for skeletal mets. Toxicities for Today: CTCAE 5 Fatigue: Grade 1: Start date:11/30/2020. Possibly related to pembrolizumab. Drugs to Treat: None. Action Required: None. Outcome: Improving - Ongoing but improving. Cough: Grade 1: Start date: 01/10/2021. Unlikely related to Pembrolizumab. Drugs to treat: Albuterol inhaler. Action Required: None. Outcome: Improving immensely per patient - Ongoing but improving. Pain: (lower back pain that radiates into legs) Intermittent Grade 1. Start Date: approximately: 03/17/2021. Unrelated to pembrolizumab, related to sacral mets. Drugs to Treat: Percocet. Action Required: None. Outcome: Ongoing. Diarrhea: Intermittent Grade 1: Start Date: Prior to 2012. Unrelated to pembrolizumab, related to IBS. Drugs to Treat: Immodium. Action Required: None. Outcome: Ongoing. Hyperglycemia (Non-Fasting) Grade 1: Start Date: 01/24/2022. Unrelated to Pembrolizumab. Drugs to Treat: None. Action Required: None as value is non-fasting. Outcome: Ongoing. Hypocalcemia: Grade 1: Start date:02/13/2022. Stop:03/03/2022 Possibly related to pembrolizumab. Drugs to Treat: None. Action Required: None. Outcome: Ongoing. Hypokalemia: Grade 1: Start date:02/13/2022. Possibly related to pembrolizumab. Drugs to Treat: None. Action Required: None. Outcome: Ongoing. Aspartate Aminotransferase Decreased: Grade 1: Start date:02/13/2022 Stop date: 03/03/2022 . Possibly related to pembrolizumab. Drugs to Treat: None. Action Required: None. Outcome: Ongoing. Toxicities and Laboratory Results Not Gradable per CTCAE 5: Vision decreased- PRIOR TO STUDY. Patient states that she had a follow up appointment with her eye doctor and vision about the same since last exam a year ago. Recommended re-check in 1 year. NO changes Low C02 Start date: 03/03/2022 Drugs to Treat: None. Action Required: None. Action required: None Outcome: Ongoing. High Chloride Start date: 03/03/2022 Drugs to Treat: None. Action Required: None. Action required: None Outcome: Ongoing. Summary of Visits as below 03/03/2022: OV with labs (due to Holiday) for C26 03/08/2022: treatment C26 03/28/2022: OV, labs, with treatment next day C27 The provider has reviewed and verified the information included within this note, including AE information. Patient meets criteria for treatment, confirmed by Dr. Huddleston. [place] orders signed. Patient has contact information for Dr. Huddleston's office as well as [facility] Department for any questions/concerns. PATRICIO Jacobson, RN, Research Nurse [phone] documented in this encounter [facility] 03-03-2022 History of Present illness Narrative PATIENT NAME: Lata Smith. CLINIC NO: [id number]. ATTENDING PHYSICIAN: Anca Huddleston MD. DATE OF SERVICE: 03/03/2022 DIAGNOSIS: Stage IV, non-small cell (adenocarcinoma) lung cancer HPI: 61-year-old lady with history of hypertension cardiovascular disease recent [place] in October 2019, status post coronary stents x3 on Plavix and aspirin who presented with worsening shortness of breath and hemoptysis for several months. Patient was seen in primary care clinic in May was treated with antibiotic without improvement. She was seen by Dr. Castillo and a CT chest revealed a lung mass and mediastinal adenopathy. She had no fever Chills, rigor, pleuritic chest pain, chest trauma. She has stable exertional dyspnea with activities of daily living, and exertional wheezing. She also complained of severe right hip pain along with pressure on her right side of her chest for couple months. Her staging PET scan on 08/03/2020 unfortunately showed metastatic disease. She had bronchoscopy and EBUS biopsy of the mediastinal lymph node on 08/19/2020. Biopsy was consistent with non-small cell, favoring adenocarcinoma the lung. She is here today to discuss treatment option for metastatic lung cancer. Patient is lives with an adult son. She is quit smoking since October after her heart attack. She denied any any weight loss since her heart attack. She has no hoarseness or dysphagia. No headaches or neurological symptoms. She has severe right hip pain secondary to metastatic disease. MRI scan of brain shows no evidence of metastatic disease. She completed palliative radiation therapy to her right hip. Current Treatment: Pembrolizumab Interim history: She is doing well on Pembrolizumab with no side effects. She has no nausea, vomiting or diarrhea. No abdominal pain, bloating or jaundice. She has no jaw pain or dental issues on Zometa. She has a chronic cough, but no chest pain or shortness of breath. All medications & allergies updated and reviewed by me. REVIEW OF SYSTEMS: CONSTITUTIONAL: No fevers, chills, nightsweats, unintended weight loss HEENT: Denies frequent or severe heaches, nasal congestion/sinus symptoms, problematic allergy problems. EYES: No diplopia or blurry vision. CARDIOVASCULAR: No chest pain, dyspnea, palpitations, orthopnea, PND, ankle edema. PULM: No dyspnea, unexplained cough. GI: No dysphagia/odynophagia, problematic reflux, constipation, diarrhea, changes in stool habits, hematochezia, melena. : No new urinary complaints, including dysuria, gross hematuria or pyuria. NEURO: No new balance problems, peripheral weakness/paresthesias or numbness of concern. MUSC-SKEL: No new joint pain, swelling, or erythema. PSY: No concerns regarding depression, anxiety or panic. INTEGUMENTARY: No new skin changes (rash, new or changing mole, new growth) PHYSICAL EXAMINATION: 61 year-old lady appears to be in no acute distress Performance status 90% BP 111/59 Pulse 75 Temp 97.7 Wt 195 lb 8 oz (88.7kg) SpO2 96% LMP 11/04/2012 HEENT: Head is normocephalic, atraumatic. Sclerae white, conjunctivae pink. PEERL. EOMs are intact. Oropharynx is benign. LYMPHATICS: There is no palpable adenopathy in the neck, supraclavicular region, axillae, or groin. LUNGS: Lungs are clear to percussion and auscultation. No wheezing. HEART: Heart is normal without murmurs, gallops, or rubs. ABDOMEN: Soft and nontender without organomegaly. No masses can be palpated. EXTREMITIES: Are without edema. NEUROLOGIC: Exam is physiologic LABORATORY DATA: Component Latest Ref Rng & Units 03/03/2022 WBC 3.70 - 11.00 k/uL 6.91 RBC 3.90 - 5.20 m/uL 4.25 Hemoglobin 11.5 - 15.5 g/dL 12.4 Hematocrit 36.0 - 46.0 % 37.2 MCV 80.0 - 100.0 fL 87.5 MCH 26.0 - 34.0 pg 29.2 MCHC 30.5 - 36.0 g/dL 33.3 RDW-CV 11.5 - 15.0 % 13.9 Platelet Count 150 - 400 k/uL 176 MPV 9.0 - 12.7 fL 9.9 Neut% % 71.1 Abs Neut (ANC) 1.45 - 7.50 k/uL 4.91 Lymph% % 19.1 Abs Lymph 1.00 - 4.00 k/uL 1.32 [place]% % 6.9 Abs [place] <0.87 k/uL 0.48 Eosin% % 1.7 Abs Eosin <0.46 k/uL 0.12 Baso% % 0.9 Abs Baso <0.11 k/uL 0.06 Immature Gran % % 0.3 IMMATURE GRANS (ABS) <0.10 k/uL <0.03 NRBC /100 WBC 0.0 Absolute nRBC <0.01 k/uL <0.01 DTYPE Auto Component Latest Ref Rng & Units 03/03/2022 Protein, Total 6.3 - 8.0 g/dL 7.0 Albumin 3.9 - 4.9 g/dL 3.9 Calcium 8.5 - 10.2 mg/dL 8.6 Bilirubin, Total 0.2 - 1.3 mg/dL 0.2 Alkaline Phosphatase 34 - 123 U/L 113 AST 13 - 35 U/L 15 ALT 7 - 38 U/L 15 Glucose 74 - 99 mg/dL 118 (H) BUN 7 - 21 mg/dL 10 Creatinine 0.58 - 0.96 mg/dL 0.79 Sodium 136 - 144 mmol/L 139 Potassium 3.7 - 5.1 mmol/L 3.5 (L) Chloride 97 - 105 mmol/L 109 (H) CO2 22 - 30 mmol/L 21 (L) Anion Gap 9 - 18 mmol/L 9 eGFR >=60 mL/min/1.73m 86 Amylase 30 - 104 U/L 63 Lipase 16 - 61 U/L 42 Cortisol 4.8 - 19.5 ug/dL 5.1 TSH 0.270 - 4.200 mIU/L 1.410 ASSESSMENT/PLAN: 61-year-old lady with history of COPD, coronary artery disease with metastatic non-small cell lung cancer.(Right lower lobe-favoring adenocarcinoma) extensive bone metastasis with a large lytic lesion in the right sacrum. 1) metastatic non-small cell (adenocarcinoma) with extensive bone metastasis PD-L1 expression 100% ROS1 & RET not detected. BRAF No variant detected [Reference Sequence: ([id number])]. EGFR - No variant detected [Reference Sequence: ([id number])]. HER2 (ERBB2) - No variant detected [Reference sequence: (NM_004448.2)]. KRAS A sequence change: c.34_35delinsTT (p.[id number]) was detected at approximately 30% allelic proportion (depth of coverage at change 5410)[Reference Sequence: ([id number])]. MET- No variant detected [Reference Sequence: ([id number])]. -She has stable disease on Pembrolizumab (complete response from the beginning of her treatment) -Tolerating Pembrolizumab; without toxicity. -Stable disease on imaging Plan: -Continue Pembrolizumab every 21 days per study protocol. 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 -Pain is controlled Plan: -Continue Ibuprfen or Percocet as needed for pain. (Alternate between or anti-inflammatory effects of ibuprofen) -Senokot 2 tablet twice daily & MiraLAX as needed for constipation. 3) dyspnea and cough secondary to COPD /tobacco use Plan -Encourage patient to stop smoking -Continue Proventil nebulizer as needed -Follow-up with PCP for smoking cessation Portions of this documentation were copied and pasted from previous office visit notes in order to provide a cohesive continuity of the history. The note has been reviewed and edited and updated as necessary. Anca Huddleston MD Cc: Fiona Durant MD documented in this encounter [facility] 02-15-2022 History of Present illness Narrative Assessment unchanged from Dr Huddleston office visit on 02/14/22 documented in this encounter [facility] 02-15-2022 History of Present illness Narrative RECIST TUMOR MEASUREMENTS IRB #: [id number] / [id number] Image Modality: CT Image Date: 02/10/2022 Date of Baseline Scan: 09/16/2020 Date of Comparison Scan: 11/18/2021 Research Nurse: Liza Canas Follow-Up Measurement Measurements Baseline 09/16/2021 Series / Image # Measurements 11/05/2020 Series/ Image Measurements 12/16/2020 Series/ Image Measurements 02/17/2021 Series/ Image Measurements 04/21/2021 Series/ Image Measurement 06/22/2021 Series/ Image Measurement 08/26/2021 Series/ Image Measurement 11/18/2021 Series/ Image Measurement 02/10/2022 Series/ Image 3.0 cm x 2.7 cm Series 9, Image 77 1.6 cm x 1.1 cm Series 9, Image 80 1.6 cm x 1.2 cm Series 9 Image 83 1.6 cm x 1.2 cm Series 9 Image 74 1.6 cm x 1 cm Series 9 Image 74 1.6 cm x 1 cm Series 6 Image 78 1.4 cm x 1 cm Series 9 Image 79 1.4 cm x 1 cm Series 6, Image 76 1.6 cm x 0.8 cm Series 9, Image 82 2.6 cm x 2.2 cm Series 7, Image 75 1.4 cm x 1.0 cm Series 7, Image 82 1.1 cm x 0.9 cm Series 7 Image 85 1.1 cm x 0.9 cm Series 7 Image 76 0.8 cm x 0.4 cm Series 7 Image 76 No longer visible Series 4 Image 78 Not visible N/A Not visible N/A Not visible N/A * Target lesion 1 - Right lower lobe nodule, 1.6 cm x 0.8 cm, (Series 9, Image 82), essentially stable. List Non-Target Lesion Site: None No considered immeasurable disease Appearance of New Lesion: No Sum of Lesions: 1.6 cm Baseline Sum ( 5.2 cm) Response: Partial Response ([place]) Measurements have been reviewed and approved by Dr. Anca Canas RN February 15, 2022 (Updated for edited RECIST 02/22/2022) documented in this encounter [facility] 02-14-2022 Miscellaneous Notes Please advise if okay for patient to have treatment on Wednesday 03/07 that week due to holiday week and limited availability. Also-please place new orders as this cycle is last cycle in episodes. Thank you. documented in this encounter [facility] 02-14-2022 History of Present illness Narrative IRB#: [id number], [facility]# [id number]: A Randomized, Phase III Study of Firstline Immunotherapy alone or in Combination with Chemotherapy in Induction/Maintenance or Postprogression in Advanced Nonsquamous Non-Small Cell Lung Cancer (NSCLC) with Immunobiomarker SIGNature-driven Analysis IC signed 09/13/2020 Randomized 09/22/2021 to treatment arm A: 1st line MK-3475 (pembrolizumab) followed by 2nd line Pemetrexed/Carboplatin. Study ID: [id number] Huddleston on 02/14/2022 in anticipation of Cycle 25 (scheduled 02/15/2022) of IRB# [id number] visit assessment. Patient remains on first line therapy. Patient denies changes in health, but expressed a huge improvement overall with cough. She feels it is almost completely gone. Patient feels fatigue is worse in some ways, but then also felt it was better. Her generalized pain is about the same. Patient states she is,helen. Not bad tho. Patient started Chantix again and said she's down to one pack every three days. Which is an improvement from her last visit. RECIST with CT scans this appointment - MD Huddleston felt they looked good with no new nodules and stable nodules. Patient referenced report with new target legion on report for Liver. MD reviewed and felt it was not anything to be worried about, but to review and follow with scans as indicated for trial. PE completed by Dr. John MD. KPS 90%. ECOG 0 Resulted labs reviewed by Dr. Huddleston who reports that patient will continue Pembrolizumab Cycle 25 (ARM A - first line) per study protocol. Orders signed. Creatinine Clearance: 109 mL/min Quality of life questionnaire completed per protocol: Not Required per trial. Clinical trial draw completed per protocol: Not required until progression. VS completed per protocol: Yes 02/14/2022 Weight 87.8 kg (193 lb 8 oz) BSA 0 BMI 0 Temp 36.3 C (97.3 F) Pulse 68 BP 119/59 Resp 18 Concomitant medications reviewed per protocol: Yes Current Outpatient Medications Indication: Start date: Stop date: Medication Instructions albuterol (PROVENTIL) 2.5 mg, NEBULIZATION -UNSPEC, EVERY 6 HOURS NEEDED, 1 vial contains 3 ml. Asthma 20 years ago hasn't used in over a year albuterol HFA (VENTOLIN HFA) 90 mcg/actuation inhaler 2 Puffs, INHALATION, EVERY 4 HOURS NEEDED Asthma 20 years ago aspirin, enteric coated (ASPIRIN LOW DOSE) 81 mg, ORAL, DAILY Hx of [place] 10/2019 clopidogrel (PLAVIX) 75 mg, ORAL, DAILY Hx of [place] 10/2019 diclofenac sodium (VOLTAREN) 4 g, TOPICAL, 4 TIMES DAILY NEEDED Osteoarthritis 06/28/2020 docusate sodium (COLACE) 100 mg, ORAL, ONCE DAILY NEEDED Constipation 05/23/2013 esomeprazole (NEXIUM) 20 mg, ORAL, DAILY, (insurance states it covers Nexium OTC 20 mg) Esophageal reflux 06/06/2004 10/06/2021 fluticasone (FLONASE) 50 mcg/actuation nasal spray Use 2 Sprays in each nostril once daily. Rinse mouth after use. allergic rhinitis 08/29/2004 lisinopril (ZESTRIL, PRINIVIL) 5 mg, ORAL, DAILY Hx of [place] 10/2019 morphine SR (MS CONTIN) 30 mg, ORAL,EVERY 8 HOURS FOR PAIN. hip pain 09/10/2020 11/04/2020 Nebulizer NEBULIZER FOR HOME USE with supplies. DX: (J45.40) Moderate persistent asthma without complication (primary encounter diagnosis) asthma Patient has not been taking polyethylene glycol 3350 (MIRALAX) 17 g, ORAL, DAILY, NOT NEEDING NOW Constipation 05/23/2013 Maxalt 10 mg tab, 1 tab by mouth as needed, may repeat in 2 hours if needed Migraines 06/25/2013 potassium chloride ER (K-DUR, KLOR-CON) 20 mEq tablet 20 mEq, ORAL, one tab 3-4 times weekly per patient Low K+ 10/27/2020 Patient reports only taking one tablet daily 3-4 days per week (06/27/21) rosuvastatin (CRESTOR) 40 mg, ORAL, DAILY Dyslipidemia 02/27/2020 simethicone, chewable ([place]-ACID GAS RELIEF(SIMETHICON)) 80 mg, ORAL, EVERY 6 HOURS NEEDED Irritable bowel 10/16/2012 traZODone (DESYREL) 50 mg, ORAL, AT BEDTIME NEEDED Depression 07/26/2010 10/06/2021 verapamil ER (VERELAN) 120 mg 24 hr capsule Verapamil Verapamil Hcl Active 0 MG DAILY October 10, 2019 7:53am 10-10-2019 [facility] ([id number]) Hx [place] 10/2019 Headaches 08/28/2016 12/20/2020 Headaches 01/21/2008 Flexeril 10mg, 1 tab twice daily prn Muscles spasms 08/15/2005 Sennosides 17.2 mg ORAL 2 TIMES DAILY Constipation 10/18/2020 Percocet 5/325mg, [id number] prn Pain 11/05/2020 calcium-cholecalciferol, D3, (OSCAL+D ) 500 mg(1,250mg) -400 unit chewable tablet Supplement to support bone metastis 2020 11/22/2021 Chantix(varenicline) 0.5mg and 1mg start box Take 0.5 mg by mouth once daily on Days 1 through 3, THEN 0.5 mg twice daily on Days 4 through 7, THEN 1 mg twice daily on Day 8 and thereafter smoking cessation 01/10/2022 Promethazine(Phenergan) 25mg 1 tablet every 6 hours as needed for nausea nausea 11/20/2020 Omeprazole 20 mg 1 tablet tate Esophageal reflux 10/06/2021 Multivitamin 1 tablet daily Supplement 11/22/2021 Tessalon Perles 100 mg 1-3 capsules every 6-8 hours as needed for cough Cough Suppression 09/22/2022 Patient remains on Zometa 4 mg IV Q12 weeks for skeletal mets. Toxicities for Today: CTCAE 5 Fatigue: Grade 1: Start date:11/30/2020. Possibly related to pembrolizumab. Drugs to Treat: None. Action Required: None. Outcome: Improving - Ongoing. Cough: Grade 1: Start date: 01/10/2021. Unlikely related to Pembrolizumab. Drugs to treat: Albuterol inhaler. Action Required: None. Outcome: Improving immensely per patient - Ongoing. Pain: (lower back pain that radiates into legs) Intermittent Grade 1. Start Date: approximately: 03/17/2021. Unrelated to pembrolizumab, related to sacral mets. Drugs to Treat: Percocet. Action Required: None. Outcome: Ongoing. Diarrhea: Intermittent Grade 1: Start Date: Prior to 2012. Unrelated to pembrolizumab, related to IBS. Drugs to Treat: Immodium. Action Required: None. Outcome: Ongoing. Hyperglycemia (Non-Fasting) Grade 1: Start Date: 01/24/2022. Unrelated to Pembrolizumab. Drugs to Treat: None. Action Required: None as value is non-fasting. Outcome: Ongoing. Hypocalcemia: Grade 1: Start date:02/13/2022. Possibly related to pembrolizumab. Drugs to Treat: None. Action Required: None. Outcome: Ongoing. Hypokalemia: Grade 1: Start date:02/13/2022. Possibly related to pembrolizumab. Drugs to Treat: None. Action Required: None. Outcome: Ongoing. Aspartate Aminotransferase Decreased: Grade 1: Start date:02/13/2022. Possibly related to pembrolizumab. Drugs to Treat: None. Action Required: None. Outcome: Ongoing. Toxicities and Laboratory Results Not Gradable per CTCAE 5: Vision decreased- PRIOR TO STUDY. Patient states that she had a follow up appointment with her eye doctor and vision about the same since last exam a year ago. Recommended re-check in 1 year. NO changes Summary of Visits as below 02/14/2022: OV, labs, with treatment next day C25 with CT prior (orders in) 03/2022: OV, labs, with treatment next day C26 The provider has reviewed and verified the information included within this note, including AE information. Patient meets criteria for treatment, confirmed by Dr. Huddleston. [place] orders signed. Patient has contact information for Dr. Huddleston's office as well as [facility] Department for any questions/concerns. PATRICIO Jacobson, RN, Research Nurse [phone] documented in this encounter [facility] 02-14-2022 History of Present illness Narrative PATIENT NAME: Lata Smith. CLINIC NO: [id number]. ATTENDING PHYSICIAN: Anca Huddleston MD. DATE OF SERVICE: 02/14/2022 DIAGNOSIS: Stage IV, non-small cell (adenocarcinoma) lung cancer HPI: 61-year-old lady with history of hypertension cardiovascular disease recent [place] in October 2019, status post coronary stents x3 on Plavix and aspirin who presented with worsening shortness of breath and hemoptysis for several months. Patient was seen in primary care clinic in May was treated with antibiotic without improvement. She was seen by Dr. Castillo and a CT chest revealed a lung mass and mediastinal adenopathy. She had no fever Chills, rigor, pleuritic chest pain, chest trauma. She has stable exertional dyspnea with activities of daily living, and exertional wheezing. She also complained of severe right hip pain along with pressure on her right side of her chest for couple months. Her staging PET scan on 08/03/2020 unfortunately showed metastatic disease. She had bronchoscopy and EBUS biopsy of the mediastinal lymph node on 08/19/2020. Biopsy was consistent with non-small cell, favoring adenocarcinoma the lung. She is here today to discuss treatment option for metastatic lung cancer. Patient is lives with an adult son. She is quit smoking since October after her heart attack. She denied any any weight loss since her heart attack. She has no hoarseness or dysphagia. No headaches or neurological symptoms. She has severe right hip pain secondary to metastatic disease. MRI scan of brain shows no evidence of metastatic disease. She completed palliative radiation therapy to her right hip. Current Treatment: Pembrolizumab Interim history: She is doing well on Pembrolizumab with no side effects. She has no nausea, vomiting or diarrhea. No abdominal pain, bloating or jaundice. She has no jaw pain or dental issues on Zometa. She has a chronic cough from smoking and COPD, no shortness of breath. No sign of infection or pneumonitis. All medications & allergies updated and reviewed by me. REVIEW OF SYSTEMS: CONSTITUTIONAL: No fevers, chills, nightsweats, unintended weight loss HEENT: Denies frequent or severe heaches, nasal congestion/sinus symptoms, problematic allergy problems. EYES: No diplopia or blurry vision. CARDIOVASCULAR: No chest pain, dyspnea, palpitations, orthopnea, PND, ankle edema. PULM: No dyspnea, unexplained cough. GI: No dysphagia/odynophagia, problematic reflux, constipation, diarrhea, changes in stool habits, hematochezia, melena. : No new urinary complaints, including dysuria, gross hematuria or pyuria. NEURO: No new balance problems, peripheral weakness/paresthesias or numbness of concern. MUSC-SKEL: No new joint pain, swelling, or erythema. PSY: No concerns regarding depression, anxiety or panic. INTEGUMENTARY: No new skin changes (rash, new or changing mole, new growth) PHYSICAL EXAMINATION: 61 year-old lady appears to be in no acute distress Performance status 90% BP 119/59 Pulse 68 Temp (Src) 97.3 (Temporal) Wt 193 lb 8 oz (87.8kg) SpO2 96% LMP 11/04/2012 HEENT: Head is normocephalic, atraumatic. Sclerae white, conjunctivae pink. PEERL. EOMs are intact. Oropharynx is benign. LYMPHATICS: There is no palpable adenopathy in the neck, supraclavicular region, axillae, or groin. LUNGS: Lungs are clear to percussion and auscultation. No wheezing. HEART: Heart is normal without murmurs, gallops, or rubs. ABDOMEN: Soft and nontender without organomegaly. No masses can be palpated. EXTREMITIES: Are without edema. NEUROLOGIC: Exam is physiologic LABORATORY DATA: Component Latest Ref Rng & Units 02/13/2022 WBC 3.70 - 11.00 k/uL 6.76 RBC 3.90 - 5.20 m/uL 4.92 Hemoglobin 11.5 - 15.5 g/dL 14.1 Hematocrit 36.0 - 46.0 % 43.0 MCV 80.0 - 100.0 fL 87.4 MCH 26.0 - 34.0 pg 28.7 MCHC 30.5 - 36.0 g/dL 32.8 RDW-CV 11.5 - 15.0 % 13.8 Platelet Count 150 - 400 k/uL 160 MPV 9.0 - 12.7 fL 10.5 Neut% % 73.8 Abs Neut (ANC) 1.45 - 7.50 k/uL 4.99 Lymph% % 16.3 Abs Lymph 1.00 - 4.00 k/uL 1.10 [place]% % 6.4 Abs [place] <0.87 k/uL 0.43 Eosin% % 2.4 Abs Eosin <0.46 k/uL 0.16 Baso% % 0.7 Abs Baso <0.11 k/uL 0.05 Immature Gran % % 0.4 IMMATURE GRANS (ABS) <0.10 k/uL 0.03 NRBC /100 WBC 0.0 Absolute nRBC <0.01 k/uL <0.01 DTYPE Auto Component Latest Ref Rng & Units 02/13/2022 Protein, Total 6.3 - 8.0 g/dL 7.1 Albumin 3.9 - 4.9 g/dL 4.0 Calcium 8.5 - 10.2 mg/dL 8.4 (L) Bilirubin, Total 0.2 - 1.3 mg/dL 0.2 Alkaline Phosphatase 34 - 123 U/L 112 AST 13 - 35 U/L 11 (L) ALT 7 - 38 U/L 11 Glucose 74 - 99 mg/dL 102 (H) BUN 7 - 21 mg/dL 12 Creatinine 0.58 - 0.96 mg/dL 0.76 Sodium 136 - 144 mmol/L 138 Potassium 3.7 - 5.1 mmol/L 3.5 (L) Chloride 97 - 105 mmol/L 102 CO2 22 - 30 mmol/L 26 Anion Gap 9 - 18 mmol/L 10 eGFR >=60 mL/min/1.73m 90 TSH 0.270 - 4.200 mIU/L 3.650 Amylase 30 - 104 U/L 73 Lipase 16 - 61 U/L 42 CT SCAN: Chest and abdomen: Comparison 11/18/2021 IMPRESSION: 1. Stable bilateral pulmonary nodules. No new nodules are visualized. 2. No new thoracic lymphadenopathy 3. Healing fracture of the lateral right sixth rib 4. Hepatic steatosis. Otherwise unremarkable unenhanced CT abdomen for metastasis. ASSESSMENT/PLAN: 61-year-old lady with history of COPD, coronary artery disease with metastatic non-small cell lung cancer.(Right lower lobe-favoring adenocarcinoma) extensive bone metastasis with a large lytic lesion in the right sacrum. 1) metastatic non-small cell (adenocarcinoma) with extensive bone metastasis PD-L1 expression 100% ROS1 & RET not detected. BRAF No variant detected [Reference Sequence: (NM_[id number])]. EGFR - No variant detected [Reference Sequence: ([id number])]. HER2 (ERBB2) - No variant detected [Reference sequence: (NM_[id number])]. KRAS A sequence change: [id number] (p.[id number]) was detected at approximately 30% allelic proportion (depth of coverage at change 5410)[Reference Sequence: ([id number])]. MET- No variant detected [Reference Sequence: (NM_[id number])]. -She has stable disease on Pembrolizumab (complete response from the beginning of her treatment) -Tolerating Pembrolizumab; without toxicity. -Stable disease on imaging Plan: -Continue Pembrolizumab every 21 days per study protocol. 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 -Pain is controlled Plan: -Continue Ibuprfen or Percocet as needed for pain. -Senokot 2 tablet twice daily & MiraLAX as needed for constipation. 3) dyspnea and cough secondary to COPD /tobacco use Plan -Encourage patient to stop smoking -Continue Proventil nebulizer as needed -Follow-up with PCP for smoking cessation Portions of this documentation were copied and pasted from previous office visit notes in order to provide a cohesive continuity of the history. The note has been reviewed and edited and updated as necessary. Anca Huddleston MD Cc: Fiona Durant MD documented in this encounter [facility] 02-10-2022 History of Present illness Narrative [facility] IR[facility] #: [id number] TUMOR METRICS: RECIST 1.1 Follow-Up Measurement-Same Day Research Nurse/Pager: Lakshmi [phone] Date of Baseline Scan: 09/16/2020 Date of Comparison Scan: 02/10/[address] needs to be addended Addendum Please see Abstract in EPIC Dated: 08/29/2021 documented in this encounter [facility] 02-10-2022 History of Present illness Narrative Radiology Service Progress Note DATE OF SERVICE: February 10, 2022 TIME: 11:23 AM PATIENT IDENTITY VERIFICATION COMPLETED USING TWO (2) STANDARD IDENTIFIERS: Name and Date of confirmed by patient verbally. FALL SCREENING: Has the patient had 2 falls in the last year or 1 fall with injury or currently using an Ambulatory Assistive Device (Walker, Cane, Wheelchair, Crutches, etc.)? No PATIENT GENDER DATA: Female. status: : No status: NO. PATIENT RELEVANT IMPLANT DATA REVIEWED: Yes ALLERGIES: Reviewed and unchanged CONTRAST ALLERGY: NO. EXAM: CT -CONTRAST INDUCED NEPHROPATHY RISK FACTORS: Patient age > 60 years CREATININE: Creatinine Date Value Ref Range Status 01/24/2022 0.81 0.58 - 0.96 mg/dL Final 01/03/2022 0.79 0.58 - 0.96 mg/dL Final 12/13/2021 0.82 0.58 - 0.96 mg/dL Final Estimated Glomerular Filtration Rate Date Value Ref Range Status 01/24/2022 83 >=60 mL/min/1.73m Final Comment: Estimated Glomerular Filtration Rate (eGFR) is calculated using the 2020 CKD-EPI creatinine equation. This equation utilizes serum creatinine, sex, and age as parameters. The creatinine assay has traceable calibration to isotope dilution-mass spectrometry. Refer to KDIGO guidelines for clinical interpretation. In patients with unstable renal function, e.g. those with acute kidney injury, the eGFR may not accurately reflect actual GFR. eGFR- Date Value Ref Range Status 11/22/2021 >60 Final P.O.C.T. RESULTS: POC done: Yes, See Lab Tab February 10, 2022 TREATMENT: N/A PERIPHERAL IV DATA: Ambulatory: A peripheral IV was started in the Left antecubital site with a Angio cath: 22 gauge. RADIOLOGY DEPARTMENT: CT; Exam(s) Completed: Abdomen and Chest SIGNATURE: RT Pete(R) PATIENT NAME: Lata Smith DATE: February 10, 2022 TIME: 11:23 AM documented in this encounter [facility] 01-25-2022 Miscellaneous Notes Scheduled. Pia Bryant documented in this encounter [facility] 01-24-2022 Miscellaneous Notes Scheduled. Pia Bryant documented in this encounter [facility] 01-24-2022 History of Present illness Narrative IRB#: [id number], [facility]# [id number]: A Randomized, Phase III Study of Firstline Immunotherapy alone or in Combination with Chemotherapy in Induction/Maintenance or Postprogression in Advanced Nonsquamous Non-Small Cell Lung Cancer (NSCLC) with Immunobiomarker SIGNature-driven Analysis IC signed 09/13/2020 Randomized 09/22/2021 to treatment arm A: 1st line MK-3475 (pembrolizumab) followed by 2nd line Pemetrexed/Carboplatin. Study ID: [id number] Duncan on 01/24/2022 in anticipation of Cycle 24 (scheduled 01/25/2022) of IRB# [id number] visit assessment. Patient remains on first line therapy.Patient denies changes in health, but expressed a huge improvement overall with cough. Patient feels fatigue is getting better, but still there. Her generalized pain is better, but not great per patient. Patient states she is,honestly, feeling pretty good. Patient started Chantix again and said she's down to about half a pack a day of cigarettes. PE completed by Dr. Dakota MD. KPS 90%. ECOG 0 Resulted labs reviewed by Dr. Duncan who reports that patient will continue Pembrolizumab Cycle 24 (ARM A - first line) per study protocol. Orders signed. Creatinine Clearance: 102 mL/min Quality of life questionnaire completed per protocol: Not Required per trial. Clinical trial draw completed per protocol: Not required until progression. VS completed per protocol: Yes 01/24/2022 Weight 87.1 kg (192 lb) BSA 0 BMI 0 Temp 36.2 C (97.1 F) Pulse 80 BP 116/57 Resp 16 Concomitant medications reviewed per protocol: Yes Current Outpatient Medications Indication: Start date: Stop date: Medication Instructions albuterol (PROVENTIL) 2.5 mg, NEBULIZATION -UNSPEC, EVERY 6 HOURS NEEDED, 1 vial contains 3 ml. Asthma 20 years ago hasn't used in over a year albuterol HFA (VENTOLIN HFA) 90 mcg/actuation inhaler 2 Puffs, INHALATION, EVERY 4 HOURS NEEDED Asthma 20 years ago aspirin, enteric coated (ASPIRIN LOW DOSE) 81 mg, ORAL, DAILY Hx of [place] 10/2019 clopidogrel (PLAVIX) 75 mg, ORAL, DAILY Hx of [place] 10/2019 diclofenac sodium (VOLTAREN) 4 g, TOPICAL, 4 TIMES DAILY NEEDED Osteoarthritis 06/28/2020 docusate sodium (COLACE) 100 mg, ORAL, ONCE DAILY NEEDED Constipation 05/23/2013 esomeprazole (NEXIUM) 20 mg, ORAL, DAILY, (insurance states it covers Nexium OTC 20 mg) Esophageal reflux 06/06/2004 10/06/2021 fluticasone (FLONASE) 50 mcg/actuation nasal spray Use 2 Sprays in each nostril once daily. Rinse mouth after use. allergic rhinitis 08/29/2004 lisinopril (ZESTRIL, PRINIVIL) 5 mg, ORAL, DAILY Hx of [place] 10/2019 morphine SR (MS CONTIN) 30 mg, ORAL,EVERY 8 HOURS FOR PAIN. hip pain 09/10/2020 11/04/2020 Nebulizer NEBULIZER FOR HOME USE with supplies. DX: (J45.40) Moderate persistent asthma without complication (primary encounter diagnosis) asthma Patient has not been taking polyethylene glycol 3350 (MIRALAX) 17 g, ORAL, DAILY, NOT NEEDING NOW Constipation 05/23/2013 Maxalt 10 mg tab, 1 tab by mouth as needed, may repeat in 2 hours if needed Migraines 06/25/2013 potassium chloride ER (K-DUR, KLOR-CON) 20 mEq tablet 20 mEq, ORAL, one tab 3-4 times weekly per patient Low K+ 10/27/2020 Patient reports only taking one tablet daily 3-4 days per week (06/27/21) rosuvastatin (CRESTOR) 40 mg, ORAL, DAILY Dyslipidemia 02/27/2020 simethicone, chewable ([place]-ACID GAS RELIEF(SIMETHICON)) 80 mg, ORAL, EVERY 6 HOURS NEEDED Irritable bowel 10/16/2012 traZODone (DESYREL) 50 mg, ORAL, AT BEDTIME NEEDED Depression 07/26/2010 10/06/2021 verapamil ER (VERELAN) 120 mg 24 hr capsule Verapamil Verapamil Hcl Active 0 MG DAILY October 10, 2019 7:53am 10-10-2019 [facility] ([id number]) Hx [place] 10/2019 Headaches 08/28/2016 12/20/2020 Headaches 01/21/2008 Flexeril 10mg, 1 tab twice daily prn Muscles spasms 08/15/2005 Sennosides 17.2 mg ORAL 2 TIMES DAILY Constipation 10/18/2020 Percocet 5/325mg, [id number] prn Pain 11/05/2020 calcium-cholecalciferol, D3, (OSCAL+D ) 500 mg(1,250mg) -400 unit chewable tablet Supplement to support bone metastis 2020 11/22/2021 Chantix(varenicline) 0.5mg and 1mg start box Take 0.5 mg by mouth once daily on Days 1 through 3, THEN 0.5 mg twice daily on Days 4 through 7, THEN 1 mg twice daily on Day 8 and thereafter smoking cessation 01/10/2022 Promethazine(Phenergan) 25mg 1 tablet every 6 hours as needed for nausea nausea 11/20/2020 Omeprazole 20 mg 1 tablet tate Esophageal reflux 10/06/2021 Multivitamin 1 tablet daily Supplement 11/22/2021 Tessalon Perles 100 mg 1-3 capsules every 6-8 hours as needed for cough Cough Suppression 09/22/2022 Patient remains on Zometa 4 mg IV Q12 weeks for skeletal mets. Toxicities for Today: CTCAE 5 Fatigue: Grade 1: Start date:11/30/2020. Possibly related to pembrolizumab. Drugs to Treat: None. Action Required: None. Outcome: Improving - Ongoing. Cough: Grade 1: Start date: 01/10/2021. Unlikely related to Pembrolizumab. Drugs to treat: Albuterol inhaler. Action Required: None. Outcome: Improving immensely per patient - Ongoing. Pain: (lower back pain that radiates into legs) Intermittent Grade 1. Start Date: approximately: 03/17/2021. Unrelated to pembrolizumab, related to sacral mets. Drugs to Treat: Percocet. Action Required: None. Outcome: Ongoing. Diarrhea: Intermittent Grade 1: Start Date: Prior to 2012. Unrelated to pembrolizumab, related to IBS. Drugs to Treat: Immodium. Action Required: None. Outcome: Ongoing. Hyperglycemia (Non-Fasting) Grade 1: Start Date: 01/24/2022. Unrelated to Pembrolizumab. Drugs to Treat: None. Action Required: None as value is non-fasting. Outcome: Ongoing. Toxicities and Laboratory Results Not Gradable per CTCAE 5: Vision decreased- PRIOR TO STUDY. Patient states that she had a follow up appointment with her eye doctor and vision about the same since last exam a year ago. Recommended re-check in 1 year. NO changes Summary of Visits as below 01/24/2022: OV, labs, with treatment next day C24 02/14/2022: OV, labs, with treatment next day C25 with CT prior (orders in) The provider has reviewed and verified the information included within this note, including AE information. Patient meets criteria for treatment, confirmed by Dr. Duncan. [place] orders signed. Patient has contact information for Dr. Flores office as well as [facility] for any questions/concerns. PATRICIO Jacobson, RN [phone] documented in this encounter [facility] 01-03-2022 History of Present illness Narrative PATIENT NAME: Lata Smith. CLINIC NO: [id number]. ATTENDING PHYSICIAN: Anca Huddleston MD. DATE OF SERVICE: 01/03/2022 DIAGNOSIS: Stage IV, non-small cell (adenocarcinoma) lung cancer HPI: 61-year-old lady with history of hypertension cardiovascular disease recent [place] in October 2019, status post coronary stents x3 on Plavix and aspirin who presented with worsening shortness of breath and hemoptysis for several months. Patient was seen in primary care clinic in May was treated with antibiotic without improvement. She was seen by Dr. Castillo and a CT chest revealed a lung mass and mediastinal adenopathy. She had no fever Chills, rigor, pleuritic chest pain, chest trauma. She has stable exertional dyspnea with activities of daily living, and exertional wheezing. She also complained of severe right hip pain along with pressure on her right side of her chest for couple months. Her staging PET scan on 08/03/2020 unfortunately showed metastatic disease. She had bronchoscopy and EBUS biopsy of the mediastinal lymph node on 08/19/2020. Biopsy was consistent with non-small cell, favoring adenocarcinoma the lung. She is here today to discuss treatment option for metastatic lung cancer. Patient is lives with an adult son. She is quit smoking since October after her heart attack. She denied any any weight loss since her heart attack. She has no hoarseness or dysphagia. No headaches or neurological symptoms. She has severe right hip pain secondary to metastatic disease. MRI scan of brain shows no evidence of metastatic disease. She completed palliative radiation therapy to her right hip. Current Treatment: Pembrolizumab Interim history: She is doing well on Pembrolizumab with no side effects. She has occasional lower back and hip pain. She takes Percocet as needed. She has no nausea, vomiting or diarrhea. No abdominal pain, bloating or jaundice. She has no jaw pain or dental issues on Zometa. She has a chronic cough from smoking and COPD, no shortness of breath. All medications & allergies updated and reviewed by me. REVIEW OF SYSTEMS: CONSTITUTIONAL: No fevers, chills, nightsweats, unintended weight loss HEENT: Denies frequent or severe heaches, nasal congestion/sinus symptoms, problematic allergy problems. EYES: No diplopia or blurry vision. CARDIOVASCULAR: No chest pain, dyspnea, palpitations, orthopnea, PND, ankle edema. PULM: No dyspnea, unexplained cough. GI: No dysphagia/odynophagia, problematic reflux, constipation, diarrhea, changes in stool habits, hematochezia, melena. : No new urinary complaints, including dysuria, gross hematuria or pyuria. NEURO: No new balance problems, peripheral weakness/paresthesias or numbness of concern. MUSC-SKEL: No new joint pain, swelling, or erythema. PSY: No concerns regarding depression, anxiety or panic. INTEGUMENTARY: No new skin changes (rash, new or changing mole, new growth) PHYSICAL EXAMINATION: 61 year-old lady appears to be in no acute distress Performance status 90% BP 112/53 Pulse 70 Temp (Src) 97.8 (Temporal) Wt 195 lb (88.5kg) LMP 11/04/2012 HEENT: Head is normocephalic, atraumatic. Sclerae white, conjunctivae pink. PEERL. EOMs are intact. Oropharynx is benign. LYMPHATICS: There is no palpable adenopathy in the neck, supraclavicular region, axillae, or groin. LUNGS: Lungs are clear to percussion and auscultation. No wheezing. HEART: Heart is normal without murmurs, gallops, or rubs. ABDOMEN: Soft and nontender without organomegaly. No masses can be palpated. EXTREMITIES: Are without edema. NEUROLOGIC: Exam is physiologic LABORATORY DATA: Component Latest Ref Rng & Units 01/03/2022 WBC 3.70 - 11.00 k/uL 6.76 RBC 3.90 - 5.20 m/uL 4.93 Hemoglobin 11.5 - 15.5 g/dL 14.3 Hematocrit 36.0 - 46.0 % 43.0 MCV 80.0 - 100.0 fL 87.2 MCH 26.0 - 34.0 pg 29.0 MCHC 30.5 - 36.0 g/dL 33.3 RDW-CV 11.5 - 15.0 % 14.7 Platelet Count 150 - 400 k/uL 176 MPV 9.0 - 12.7 fL 10.1 Neut% % 63.1 Abs Neut (ANC) 1.45 - 7.50 k/uL 4.26 Lymph% % 25.0 Abs Lymph 1.00 - 4.00 k/uL 1.69 [place]% % 7.8 Abs [place] <0.87 k/uL 0.53 Eosin% % 2.7 Abs Eosin <0.46 k/uL 0.18 Baso% % 1.0 Abs Baso <0.11 k/uL 0.07 Immature Gran % % 0.4 IMMATURE GRANS (ABS) <0.10 k/uL 0.03 NRBC /100 WBC 0.0 Absolute nRBC <0.01 k/uL <0.01 DTYPE Auto Component Latest Ref Rng & Units 01/03/2022 Amylase 30 - 104 U/L 69 Lipase 16 - 61 U/L 29 TSH 0.270 - 4.200 mIU/L 3.010 Cortisol 4.8 - 19.5 ug/dL 2.6 (L) Component Latest Ref Rng & Units 01/03/2022 Protein, Total 6.3 - 8.0 g/dL 7.1 Albumin 3.9 - 4.9 g/dL 4.1 Calcium 8.5 - 10.2 mg/dL 8.8 Bilirubin, Total 0.2 - 1.3 mg/dL 0.2 Alkaline Phosphatase 34 - 123 U/L 115 AST 13 - 35 U/L 12 (L) ALT 7 - 38 U/L 14 Glucose 74 - 99 mg/dL 92 BUN 7 - 21 mg/dL 8 Creatinine 0.58 - 0.96 mg/dL 0.79 Sodium 136 - 144 mmol/L 138 Potassium 3.7 - 5.1 mmol/L 3.9 Chloride 97 - 105 mmol/L 106 (H) CO2 22 - 30 mmol/L 23 Anion Gap 9 - 18 mmol/L 9 eGFR >=60 mL/min/1.73m 86 ASSESSMENT/PLAN: 61-year-old lady with history of COPD, coronary artery disease with metastatic non-small cell lung cancer.(Right lower lobe-favoring adenocarcinoma) extensive bone metastasis with a large lytic lesion in the right sacrum. 1) metastatic non-small cell (adenocarcinoma) with extensive bone metastasis PD-L1 expression 100% ROS1 & RET not detected. BRAF No variant detected [Reference Sequence: (NM_004333.4)]. EGFR - No variant detected [Reference Sequence: (NM_005228.3)]. HER2 (ERBB2) - No variant detected [Reference sequence: (NM_004448.2)]. KRAS A sequence change: c.34_[id number] (p.Sbr57Var) was detected at approximately 30% allelic proportion (depth of coverage at change 5410)[Reference Sequence: (NM_004985.3)]. MET- No variant detected [Reference Sequence: (NM_000245.2)]. -She has stable disease on Pembrolizumab (complete response from the beginning of her treatment) -Tolerating Pembrolizumab; without toxicity. -Stable disease on imaging Plan: -Continue Pembrolizumab every 21 days per study protocol. -Zometa 4 mg IV every 12 weeks for skeletal metastasis -Repeat CBC, CMP, TSH, cortisol, amylase and lipase & office visit in 3 weeks -Repeat CT chest and abdomen in 6 weeks per protocol. 2) hip pain secondary to right sacral lesion. -Pain is controlled Plan: -Continue Ibuprfen or Percocet as needed for pain. -Senokot 2 tablet twice daily & MiraLAX as needed for constipation. 3) dyspnea and cough secondary to COPD /tobacco use Plan -Encourage patient to stop smoking -Continue Proventil nebulizer as needed -Follow-up with PCP for smoking cessation Portions of this documentation were copied and pasted from previous office visit notes in order to provide a cohesive continuity of the history. The note has been reviewed and edited and updated as necessary. Anca Huddleston MD Cc: Fiona Durant MD documented in this encounter [facility] 01-03-2022 History of Present illness Narrative IRB#: [id number], [facility]# [id number]: A Randomized, Phase III Study of Firstline Immunotherapy alone or in Combination with Chemotherapy in Induction/Maintenance or Postprogression in Advanced Nonsquamous Non-Small Cell Lung Cancer (NSCLC) with Immunobiomarker SIGNature-driven Analysis IC signed 09/13/2020 Randomized 09/22/2021 to treatment arm A: 1st line MK-3475 (pembrolizumab) followed by 2nd line Pemetrexed/Carboplatin. Study ID: [id number] Huddleston on 01/03/2022 in anticipation of Cycle 23 (scheduled 01/04/2022) of IRB# [id number] visit assessment. Patient remains on first line therapy.Patient denies changes in health, but expressed a tiny improvement overall and with cough. Patient feels fatigue is getting better, but still there. Patient said she got a new bed that's awful, but is getting another new one tomorrow and hope that helps. Her generalized pain is worse from the bed, but tolerable. Patient states she is,honestly, feeling pretty good. PE completed by Dr. John MD. KPS 90%. ECOG 0 Resulted labs reviewed by Dr. Huddleston who reports that patient will continue Pembrolizumab Cycle 23 (ARM A - first line) per study protocol. Orders signed. Creatinine Clearance: 106 mL/min Quality of life questionnaire completed per protocol: Not Required per trial. Clinical trial draw completed per protocol: Not required until progression. VS completed per protocol: Yes 01/03/2022 Weight 88.5 kg (195 lb) BSA 0 BMI 0 Temp 36.6 C (97.8 F) Pulse 70 BP 112/53 Resp 16 Concomitant medications reviewed per protocol: Yes Current Outpatient Medications Indication: Start date: Stop date: Medication Instructions albuterol (PROVENTIL) 2.5 mg, NEBULIZATION -UNSPEC, EVERY 6 HOURS NEEDED, 1 vial contains 3 ml. Asthma 20 years ago hasn't used in over a year albuterol HFA (VENTOLIN HFA) 90 mcg/actuation inhaler 2 Puffs, INHALATION, EVERY 4 HOURS NEEDED Asthma 20 years ago aspirin, enteric coated (ASPIRIN LOW DOSE) 81 mg, ORAL, DAILY Hx of [place] 10/2019 clopidogrel (PLAVIX) 75 mg, ORAL, DAILY Hx of [place] 10/2019 diclofenac sodium (VOLTAREN) 4 g, TOPICAL, 4 TIMES DAILY NEEDED Osteoarthritis 06/28/2020 docusate sodium (COLACE) 100 mg, ORAL, ONCE DAILY NEEDED Constipation 05/23/2013 esomeprazole (NEXIUM) 20 mg, ORAL, DAILY, (insurance states it covers Nexium OTC 20 mg) Esophageal reflux 06/06/2004 10/06/2021 fluticasone (FLONASE) 50 mcg/actuation nasal spray Use 2 Sprays in each nostril once daily. Rinse mouth after use. allergic rhinitis 08/29/2004 lisinopril (ZESTRIL, PRINIVIL) 5 mg, ORAL, DAILY Hx of [place] 10/2019 morphine SR (MS CONTIN) 30 mg, ORAL,EVERY 8 HOURS FOR PAIN. hip pain 09/10/2020 11/04/2020 Nebulizer NEBULIZER FOR HOME USE with supplies. DX: (J45.40) Moderate persistent asthma without complication (primary encounter diagnosis) asthma Patient has not been taking polyethylene glycol 3350 (MIRALAX) 17 g, ORAL, DAILY, NOT NEEDING NOW Constipation 05/23/2013 Maxalt 10 mg tab, 1 tab by mouth as needed, may repeat in 2 hours if needed Migraines 06/25/2013 potassium chloride ER (K-DUR, KLOR-CON) 20 mEq tablet 20 mEq, ORAL, one tab 3-4 times weekly per patient Low K+ 10/27/2020 Patient reports only taking one tablet daily 3-4 days per week (06/27/21) rosuvastatin (CRESTOR) 40 mg, ORAL, DAILY Dyslipidemia 02/27/2020 simethicone, chewable ([place]-ACID GAS RELIEF(SIMETHICON)) 80 mg, ORAL, EVERY 6 HOURS NEEDED Irritable bowel 10/16/2012 traZODone (DESYREL) 50 mg, ORAL, AT BEDTIME NEEDED Depression 07/26/2010 10/06/2021 verapamil ER (VERELAN) 120 mg 24 hr capsule Verapamil Verapamil Hcl Active 0 MG DAILY October 10, 2019 7:53am 10-10-2019 [facility] ([id number]) Hx [place] 10/2019 Headaches 08/28/2016 12/20/2020 Headaches 01/21/2008 Flexeril 10mg, 1 tab twice daily prn Muscles spasms 08/15/2005 Sennosides 17.2 mg ORAL 2 TIMES DAILY Constipation 10/18/2020 Percocet 5/325mg, [id number] prn Pain 11/05/2020 calcium-cholecalciferol, D3, (OSCAL+D ) 500 mg(1,250mg) -400 unit chewable tablet Supplement to support bone metastis 2020 11/22/2021 smoking cessation 12/23/20 06/06/2021 Promethazine(Phenergan) 25mg 1 tablet every 6 hours as needed for nausea nausea 11/20/2020 Omeprazole 20 mg 1 tablet tate Esophageal reflux 10/06/2021 Multivitamin 1 tablet daily Supplement 11/22/2021 Tessalon Perles 100 mg 1-3 capsules every 6-8 hours as needed for cough Cough Suppression 09/22/2022 Patient remains on Zometa 4 mg IV Q12 weeks for skeletal mets. Toxicities for Today: CTCAE 5 Fatigue: Grade 1: Start date:11/30/2020. Possibly related to pembrolizumab. Drugs to Treat: None. Action Required: None. Outcome: Improving - Ongoing. Cough: Grade 1: Start date: 01/10/2021. Unlikely related to Pembrolizumab. Drugs to treat: Albuterol inhaler. Action Required: None. Outcome: Ongoing. Pain: (lower back pain that radiates into legs) Intermittent Grade 1. Start Date: approximately: 03/17/2021. Unrelated to pembrolizumab, related to sacral mets. Drugs to Treat: Percocet. Action Required: None. Outcome: Ongoing. Diarrhea: Intermittent Grade 1: Start Date: Prior to 2012. Unrelated to pembrolizumab, related to IBS. Drugs to Treat: Immodium. Action Required: None. Outcome: Ongoing. Resolved Toxicities: Hypocalcemia: Grade 1: Start Date 11/01/2021. Stop Date Unrelated to Pembrolizumab. Drugs to Treat: None. Action Required: Monitoring. Action Required: None. Hypokalemia: Grade 1: Start Date: 10/31/2021. Stop Date 11/22/2021. Unrelated to Pembrolizumab. Drugs to Treat: K-Dur. Action Required: None. Outcome: Ongoing. Hypertension: Grade 2. Intermittent Start Date: 11/01/2021. Stop Date 11/22/2021 Unrelated to Pembrolizumab. Drugs to Treat: Lisinopril, Verapamil. Action Required: None. Outcome: Ongoing. Hyperglycemia (Non-Fasting) Grade 1: Start Date: 11/30/2020. Stop Date: 12/13/2021 Unrelated to Pembrolizumab. Drugs to Treat: None. Action Required: None as value is non-fasting. Outcome: Ongoing. Hypoalbuminemia: Grade 1; Start Date: 09/19/2021; Stop Date: 01/03/2022 Unrelated to Pembrolizumab: Action required: None. Outcome: Ongoing. Alkaline Phosphatase Increased Grade 1: Start Date: 12/13/2021. Stop Date:01/03/2022 Possibly related to Pembrolizumab. Drugs to Treat: None. Action Required: Continue monitoring labs. Outcome: Ongoing. Toxicities and Laboratory Results Not Gradable per CTCAE 5: Vision decreased- PRIOR TO STUDY. Patient states that she had a follow up appointment with her eye doctor and vision about the same since last exam a year ago. Recommended re-check in 1 year. NO changes Summary of Visits as below 01/03/2022: OV, labs, with treatment next day C23 01/24/2022: OV, labs, with treatment next day C24 The provider has reviewed and verified the information included within this note, including AE information. Patient meets criteria for treatment, confirmed by Dr. Huddleston. [place] orders signed. Patient has contact information for Dr. Huddleston's office as well as [facility] for any questions/concerns. PATRICIO Jacobson, RN [phone] documented in this encounter [facility] 12-26-2021 Instructions Fiona uDrant MD - 12/26/2021 3:39 PM EDT Chantix starting dose: Days 1 to 3: Oral: 0.5 mg once daily. Days 4 to 7: Oral: 0.5 mg twice daily. Maintenance (? Day 8): Oral: 1 mg twice daily documented in this encounter [facility] 12-26-2021 History of Present illness Narrative This note was created using Zairgeriter. Subjective Lata Smith is a 61 year old female. Patient presents with: Follow Up SUBJECTIVE: Lata Smith is a 61 year old year old lady here today for follow up appointment for review of medical conditions. Mask contributes to coughing. Does not matter what kind of mask. When out and about, really gets to her. Tends to mouth breathe with mask Also coughing spells at night. Coughing spell can last 10 to15 minutes. Just needs Tylenol with codeine when has the coughing spells. Not every night needs. Still has some left over. Pain med still effective with Percocet. No constipation issues., Gets from palliative care still. Working on walking more. Trying to get more active. Walks at [facility] now. Working on quitting smoking. Wants generic Chantix if covered. Continue to follow up with Dr. Huddleston for treatment of metastatic lung cancer. Noted potassium needing replaced. Packets of powder. 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 omeprazole (PRILOSEC) 20 mg capsule Take 1 capsule by mouth daily before breakfast. 1/2 hr before meal. traZODone (DESYREL) 50 mg tablet Take 1 tablet by mouth at bedtime as needed. diclofenac (VOLTAREN) 1 % topical gel Apply 4 g to affected area four times daily as needed (right hip and as directed). lisinopril (ZESTRIL, PRINIVIL) 5 mg tablet Take 1 tablet by mouth once daily. hydroCHLOROthiazide (HYDRODIURIL, ESIDRIX) 25 mg tablet Take 1 tablet by mouth once daily as needed (fluid retention/leg swelling). oxyCODONE-acetaminophen (PERCOCET) 5-325 mg tablet Take 1 tablet by mouth every 4 hours as needed. PALLIATIVE PATIENT ibuprofen (MOTRIN) 800 mg tablet Take 1 tablet by mouth every 8 hours as needed for fever (specify). Does not take in same day as when takes naproxen potassium chloride (KLOR-CON) 20 mEq packet Take 20 mEq by mouth twice daily. rosuvastatin (CRESTOR) 40 mg tablet Take 1 tablet by mouth once daily. promethazine (PHENERGAN) 25 mg tablet Take 1 tablet by mouth every 6 hours as needed for Nausea/Vomiting (Patient states she is using prior to Chantix dose for nausea). senna (SENOKOT) 8.6 mg tab Take 2 tablets by mouth twice daily. naloxone 4 mg/actuation nasal spray (NARCAN) Use 1 spray in one nostril as needed for overdose. May repeat every 2 to 3 min in alternating nostrils until medical assistance is available rizatriptan (MAXALT) 10 mg tablet Take 10 mg by mouth as needed. May repeat in 2 hours if needed cyclobenzaprine (FLEXERIL) 10 mg tablet Take 10 mg by mouth twice daily as needed for Muscle Spasm. aspirin, enteric coated (ASPIRIN LOW DOSE) 81 mg EC tablet Take 81 mg by mouth once daily. verapamil ER (VERELAN) 120 mg 24 hr capsule Verapamil Verapamil Hcl Active 0 MG DAILY October 10, 2019 7:53am 10-10-2019 [facility] ([id number]) albuterol (PROVENTIL) 2.5 mg /3 mL (0.083 %) nebulizer solution Use 3 mL via nebulizer every 6 hours as needed for Wheezing/Shortness of Breath. 1 vial contains 3 ml. fluticasone (FLONASE) 50 mcg/actuation nasal spray Use 2 Sprays in each nostril once daily. Rinse mouth after use. simethicone, chewable ([place]-ACID GAS RELIEF) 80 mg chewable tablet Take 1 tablet by mouth every 6 hours as needed. polyethylene glycol 3350 (MIRALAX) 17 gram/dose powder Take 17 g by mouth once daily. NOT NEEDING NOW Nebulizer NEBULIZER FOR HOME USE with supplies. DX: (J45.40) Moderate persistent asthma without complication (primary encounter diagnosis) docusate sodium (COLACE) 100 mg capsule Take 1 capsule by mouth once daily as needed. No current facility-administered medications for this visit. Review of Systems Objective BP 102/60 Pulse 78 Wt 86.6 kg (191 lb) LMP 11/04/2012 BMI 37.93 kg/m Physical Exam Constitutional: Appearance: Normal appearance. HENT: Head: Normocephalic. Eyes: Conjunctiva/sclera: Conjunctivae normal. Cardiovascular: Rate and Rhythm: Normal rate and regular rhythm. Heart sounds: Normal heart sounds. Pulmonary: Effort: Pulmonary effort is normal. Breath sounds: Normal breath sounds. Musculoskeletal: Left lower leg: Edema (trace pretibial) present. Skin: General: Skin is warm and dry. Neurological: General: No focal deficit present. Mental Status: She is alert and oriented to person, place, and time. Psychiatric: Mood and Affect: Mood normal. Behavior: Behavior normal. Thought Content: Thought content normal. Judgment: Judgment normal. Component Latest Ref Rng & Units 11/22/2021 12/13/2021 12/15/2021 Protein, Total 6.3 - 8.0 g/dL 7.0 7.0 Albumin 3.9 - 4.9 g/dL 3.8 (L) 3.7 (L) Calcium 8.5 - 10.2 mg/dL 8.7 8.6 Bilirubin, Total 0.2 - 1.3 mg/dL 0.2 0.3 Alkaline Phosphatase 34 - 123 U/L 116 128 (H) AST 13 - 35 U/L 11 (L) 12 (L) Glucose 74 - 99 mg/dL 116 (H) 97 BUN 7 - 21 mg/dL 10 6 (L) Creatinine 0.58 - 0.96 mg/dL 0.79 0.82 Sodium 136 - 144 mmol/L 138 137 Potassium 3.7 - 5.1 mmol/L 4.1 4.3 Chloride 97 - 105 mmol/L 105 104 CO2 22 - 30 mmol/L 23 26 Anion Gap 9 - 18 mmol/L 10 7 (L) ALT 7 - 38 U/L 14 11 eGFR- >60 eGFR-All Other Races . >60 eGFR >=60 mL/min/1.73m 82 Cholesterol, Total <200 mg/dL 158 Triglyceride <150 mg/dL 74 HDL Cholesterol >39 mg/dL 44 Non HDL Cholesterol <130 mg/dL 114 Fasting Time hrs 12 VLDL Cholesterol <30 mg/dL 15 TC:HDL Ratio <5.10 3.59 LDL Cholesterol <100 mg/dL 99 LDL:HDL Ratio <2.54 2.25 Hemoglobin A1C 4.3 - 5.6 % 6.2 (H) Estimated Average Glucose mg/dL 131 Assessment and Plan ASSESSMENT/PLAN: 1. Cough - ICD9: 786.2, ICD10: R05.9 (primary diagnosis) Continue present management. - ACETAMINOPHEN 300 MG-CODEINE 30 MG TABLET 2. COPD with asthma (HCC) - ICD9: 493.20, ICD10: J44.9 Follows with pulmonology - Continue current meds - Avoidance of triggers recommended 3. Cigarette smoker - ICD9: 305.1, ICD10: F17.210 - Cessation encouraged. - Physiologic and physical aspects of tobacco addiction as well as strategies for quitting were discussed. - Prescription for Chantix given 4. 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) - ICD9: 162.9, 198.5, ICD10: C34.90, C79.51 Continue follow up with Dr. Huddleston. 5. Hypokalemia - ICD9: 276.8, ICD10: E87.6 Packets of potassium needed instead of tablets. Further evaluation and treatment as indicated. Fiona Durant MD documented in this encounter [facility] 06-27-2021 Note HNO ID: [id number] Author: Milla Hernandez RN Service: ? Author Type: Registered Nurse Type: Progress Notes Filed: 06/28/2021 8:37 AM Note Text: IRB#: [id number], [facility]# [id number]: A Randomized, Phase III Study of Firstline Immunotherapy alone or in Combination with Chemotherapy in Induction/Maintenance or Postprogression in Advanced Nonsquamous Non-Small Cell Lung Cancer (NSCLC) with Immunobiomarker SIGNature-driven Analysis IC signed 09/13/2020 Randomized 09/22/2021 to treatment arm A: 1st line MK-3475 (pembrolizumab) followed by 2nd line Pemetrexed/Carboplatin. Study ID: [id number] Huddleston in anticipation of Cycle 14 (scheduled tomorrow 06/28/21) of IRB# [id number] visit assessment. PE completed by Dr. John MD. KPS 90%. ECOG 0 CT and resulted labs reviewed by Dr. Huddleston who reports that patient will continue?Pembrolizumab Cycle 14 per study protocol. Cortisol levels, lipase and amylase WNL Research nurse conducted phone interview on 06/27/2021. Ms. Smith admits to feeling well since being diagnosed with Covid 06/06/2021. She has recovered without sequelae. She had to postpone her trigger finger release due to Covid. She offers no new complaints. She states that she has increased her smoking to a pack every 4-5 days over the past month due to personal stress. Creatinine Clearance: 100 mL/min Quality of life questionnaire completed per protocol: Not Required per trial. Clinical trial draw completed per protocol: Not required until progression. VS completed per protocol: Yes 06/27/2021 Weight 82.6 kg (182 lb) BSA 0 BMI 0 Temp 36.3 ?C (97.3 ?F) Pulse 69 BP 101/53 Concomitant medications reviewed per protocol: yes Changes per patient: Yes- Patient stopped Chantix when diagnosed with Covid 06/06/2021; She admits to taking K-Dur 20mEq once daily and only 3-4 days per week. Current Outpatient Medications Indication: Start date: Stop date: Medication Instructions - albuterol (PROVENTIL) 2.5 mg, NEBULIZATION -UNSPEC, EVERY 6 HOURS NEEDED, 1 vial contains 3 ml. Asthma 20 years ago hasn't used in over a year - albuterol HFA (VENTOLIN HFA) 90 mcg/actuation inhaler 2 Puffs, INHALATION, EVERY 4 HOURS NEEDED Asthma 20 years ago - aspirin, enteric coated (ASPIRIN LOW DOSE) 81 mg, ORAL, DAILY Hx of [place] 10/2019 - clopidogrel (PLAVIX) 75 mg, ORAL, DAILY Hx of [place] 10/2019 - diclofenac sodium (VOLTAREN) 4 g, TOPICAL, 4 TIMES DAILY NEEDED Osteoarthritis 06/28/2020 - docusate sodium (COLACE) 100 mg, ORAL, ONCE DAILY NEEDED Constipation 05/23/2013 - esomeprazole (NEXIUM) 20 mg, ORAL, DAILY, (insurance states it covers Nexium OTC 20 mg) Esophageal reflux 06/06/2004 - fluticasone (FLONASE) 50 mcg/actuation nasal spray Use 2 Sprays in each nostril once daily. Rinse mouth after use. allergic rhinitis 08/29/2004 - lisinopril (ZESTRIL, PRINIVIL) 5 mg, ORAL, DAILY Hx of [place] 10/2019 - morphine SR (MS CONTIN) 30 mg, ORAL,EVERY 8 HOURS FOR PAIN. hip pain 09/10/2020 11/04/2020 - Nebulizer NEBULIZER FOR HOME USE with supplies. DX: (J45.40) Moderate persistent asthma without complication (primary encounter diagnosis) asthma - polyethylene glycol 3350 (MIRALAX) 17 g, ORAL, DAILY, NOT NEEDING NOW Constipation 05/23/2013 Maxalt 10 mg tab, 1 tab by mouth as needed, may repeat in 2 hours if needed Migraines 06/25/2013 - potassium chloride ER (K-DUR, KLOR-CON) 20 mEq tablet 20 mEq, ORAL, increase to twice dialy Low K+ 10/27/2020 Patient reports only taking one tablet daily 3-4 days per week (06/27/21) - rosuvastatin (CRESTOR) 40 mg, ORAL, DAILY Dyslipidemia 02/27/2020 - simethicone, chewable ([place]-ACID GAS RELIEF(SIMETHICON)) 80 mg, ORAL, EVERY 6 HOURS NEEDED Irritable bowel 10/16/2012 - traZODone (DESYREL) 50 mg, ORAL, AT BEDTIME NEEDED Depression 07/26/2010 - verapamil ER (VERELAN) 120 mg 24 hr capsule Verapamil Verapamil Hcl Active 0 MG DAILY October 10, 2019 7:53am 10-10-2019 [facility] ([id number]) Hx [place] 10/2019 - Headaches 08/28/2016 12/20/2020 - Naprosyn 500mg tab, take 1 tab twice dialywith food prn Headaches 01/21/2008 - Flexeril 10mg, 1 tab twice daily prn Muscles spasms 08/15/2005 - Sennosides 17.2 mg ORAL 2 TIMES DAILY Constipation 10/18/2020 - Percocet 5/325mg, [id number] prn Pain 11/05/2020 - calcium-cholecalciferol, D3, (OSCAL+D ) 500 mg(1,250mg) -400 unit chewable tablet Supplement to support bone metastis 2020 Chantix(varenicline) 0.5mg and 1mg start box Take 0.5 mg by mouth once daily on Days 1 through 3, THEN 0.5 mg twice daily on Days 4 through 7, THEN 1 mg twice daily on Day 8 and thereafter smoking cessation 12/23/20 06/06/2021 - Promethazine(Phenergan) 25mg 1 tablet every 6 hours as needed for nausea nausea 11/20/2020 Toxicities for Today: CTCAE 5 Fatigue: Grade 1: Start date:11/30/2020. Possibly related to Drugs to Treat: None. Action Required: None. Outcome: Improving/Ongoing. Cough: Grade 1: Start date: (more content not included)... [facility] 02-07-2008 History of Past i llness Narrative Problem Noted Date Resolved Date HEPATITIS B infection in the past 02/07/2008 04/09/2021 Overview: No evidence of chronic infection or cirrhosis Viral hepatitis B without me ntion of hepatic coma, acute or unspecified, without mention of hepatitis delta 2020 Overview: Chronic hepatitis B Depressive disorder in remission 04/09/2021 documented as of this encounter (statuses as of 01/04/2022) [facility]05-02-2008 History of Past illness Narrative* Problem Noted Date Resolved Date HEPATITIS B infection in the past 02/07/2008 04/09/2021 Overview: No evidence of chronic infection or cirrhosis Viral hepatitis B without me ntion of hepatic coma, acute or unspecified, without mention of hepatitis delta 2020 Overview: Chronic hepatitis B Depressive disorder in remission 04/09/2021 documented as of this encounter (statuses as of 01/04/2022) [facility]2008 History of Past illness Narrative* Problem Noted Date Resolved Date HEPATITIS B infection in the past 02/07/2008 04/09/2021 Overview: No evidence of chronic infection or cirrhosis Viral hepatitis B without me ntion of hepatic coma, acute or unspecified, without mention of hepatitis delta 2020 Overview: Chronic hepatitis B Depressive disorder in remission 04/09/2021 documented as of this encounter (statuses as of 01/04/2022) [facility]2008 History of Past illness Narrative* Problem Noted Date Resolved Date HEPATITIS B infection in the past 02/07/2008 04/09/2021 Overview: No evidence of chronic infection or cirrhosis Viral hepatitis B without me ntion of hepatic coma, acute or unspecified, without mention of hepatitis delta 2020 Overview: Chronic hepatitis B Depressive disorder in remission 04/09/2021 documented as of this encounter (statuses as of 01/23/2022) [facility]2008 History of Past illness Narrative* Problem Noted Date Resolved Date HEPATITIS B infection in the past 02/07/2008 04/09/2021 Overview: No evidence of chronic infection or cirrhosis Viral hepatitis B without me ntion of hepatic coma, acute or unspecified, without mention of hepatitis delta 2020 Overview: Chronic hepatitis B Depressive disorder in remission 04/09/2021 documented as of this encounter (statuses as of 01/24/2022) [facility]2008 History of Past illness Narrative* Problem Noted Date Resolved Date HEPATITIS B infection in the past 02/07/2008 04/09/2021 Overview: No evidence of chronic infection or cirrhosis Viral hepatitis B without me ntion of hepatic coma, acute or unspecified, without mention of hepatitis delta 2020 Overview: Chronic hepatitis B Depressive disorder in remission 04/09/2021 documented as of this encounter (statuses as of 01/25/2022) [facility] History of Past illness Narrative* Problem Noted Date Resolved Date HEPATITIS B infection in the past 02/07/2008 04/09/2021 Overview: No evidence of chronic infection or cirrhosis Viral hepatitis B without me ntion of hepatic coma, acute or unspecified, without mention of hepatitis delta 2020 Overview: Chronic hepatitis B Depressive disorder in remission 04/09/2021 documented as of this encounter (statuses as of 01/25/2022) [facility]2008 History of Past illness Narrative* Problem Noted Date Resolved Date HEPATITIS B infection in the past 02/07/2008 04/09/2021 Overview: No evidence of chronic infection or cirrhosis Viral hepatitis B without me ntion of hepatic coma, acute or unspecified, without mention of hepatitis delta 2020 Overview: Chronic hepatitis B Depressive disorder in remission 04/09/2021 documented as of this encounter (statuses as of 01/25/2022) [facility] History of Past illness Narrative* Problem Noted Date Resolved Date HEPATITIS B infection in the past 02/07/2008 04/09/2021 Overview: No evidence of chronic infection or cirrhosis Viral hepatitis B without me ntion of hepatic coma, acute or unspecified, without mention of hepatitis delta 2020 Overview: Chronic hepatitis B Depressive disorder in remission 04/09/2021 documented as of this encounter (statuses as of 02/10/2022) [facility] History of Past illness Narrative* Problem Noted Date Resolved Date HEPATITIS B infection in the past 02/07/2008 04/09/2021 Overview: No evidence of chronic infection or cirrhosis Viral hepatitis B without me ntion of hepatic coma, acute or unspecified, without mention of hepatitis delta 2020 Overview: Chronic hepatitis B Depressive disorder in remission 04/09/2021 documented as of this encounter (statuses as of 02/11/2022) [facility]2008 History of Past illness Narrative* Problem Noted Date Resolved Date HEPATITIS B infection in the past 02/07/2008 04/09/2021 Overview: No evidence of chronic infection or cirrhosis Viral hepatitis B without me ntion of hepatic coma, acute or unspecified, without mention of hepatitis delta 2020 Overview: Chronic hepatitis B Depressive disorder in remission 04/09/2021 documented as of this encounter (statuses as of 02/11/2022) [facility]2008 History of Past illness Narrative* Problem Noted Date Resolved Date HEPATITIS B infection in the past 02/07/2008 04/09/2021 Overview: No evidence of chronic infection or cirrhosis Viral hepatitis B without me ntion of hepatic coma, acute or unspecified, without mention of hepatitis delta 2020 Overview: Chronic hepatitis B Depressive disorder in remission 04/09/2021 documented as of this encounter (statuses as of 02/14/2022) [facility] History of Past illness Narrative* Problem Noted Date Resolved Date HEPATITIS B infection in the past 02/07/2008 04/09/2021 Overview: No evidence of chronic infection or cirrhosis Viral hepatitis B without me ntion of hepatic coma, acute or unspecified, without mention of hepatitis delta 2020 Overview: Chronic hepatitis B Depressive disorder in remission 04/09/2021 documented as of this encounter (statuses as of 02/15/2022) [facility]2008 History of Past illness Narrative* Problem Noted Date Resolved Date HEPATITIS B infection in the past 02/07/2008 04/09/2021 Overview: No evidence of chronic infection or cirrhosis Viral hepatitis B without me ntion of hepatic coma, acute or unspecified, without mention of hepatitis delta 2020 Overview: Chronic hepatitis B Depressive disorder in remission 04/09/2021 documented as of this encounter (statuses as of 02/15/2022) [facility]2008 History of Past illness Narrative* Problem Noted Date Resolved Date HEPATITIS B infection in the past 02/07/2008 04/09/2021 Overview: No evidence of chronic infection or cirrhosis Viral hepatitis B without me ntion of hepatic coma, acute or unspecified, without mention of hepatitis delta 2020 Overview: Chronic hepatitis B Depressive disorder in remission 04/09/2021 documented as of this encounter (statuses as of 02/16/2022) [facility] History of Past illness Narrative* Problem Noted Date Resolved Date HEPATITIS B infection in the past 02/07/2008 04/09/2021 Overview: No evidence of chronic infection or cirrhosis Viral hepatitis B without me ntion of hepatic coma, acute or unspecified, without mention of hepatitis delta 2020 Overview: Chronic hepatitis B Depressive disorder in remission 04/09/2021 documented as of this encounter (statuses as of 02/20/2022) [facility]2008 History of Past illness Narrative* Problem Noted Date Resolved Date HEPATITIS B infection in the past 02/07/2008 04/09/2021 Overview: No evidence of chronic infection or cirrhosis Viral hepatitis B without me ntion of hepatic coma, acute or unspecified, without mention of hepatitis delta 2020 Overview: Chronic hepatitis B Depressive disorder in remission 04/09/2021 documented as of this encounter (statuses as of 02/22/2022) [facility]2008 History of Past illness Narrative* Problem Noted Date Resolved Date HEPATITIS B infection in the past 02/07/2008 04/09/2021 Overview: No evidence of chronic infection or cirrhosis Viral hepatitis B without me ntion of hepatic coma, acute or unspecified, without mention of hepatitis delta 2020 Overview: Chronic hepatitis B Depressive disorder in remission 04/09/2021 documented as of this encounter (statuses as of 03/06/2022) [facility] History of Past illness Narrative* Problem Noted Date Resolved Date HEPATITIS B infection in the past 02/07/2008 04/09/2021 Overview: No evidence of chronic infection or cirrhosis Viral hepatitis B without me ntion of hepatic coma, acute or unspecified, without mention of hepatitis delta 2020 Overview: Chronic hepatitis B Depressive disorder in remission 04/09/2021 documented as of this encounter (statuses as of 03/07/2022) [facility] History of Past illness Narrative* Problem Noted Date Resolved Date HEPATITIS B infection in the past 02/07/2008 04/09/2021 Overview: No evidence of chronic infection or cirrhosis Viral hepatitis B without me ntion of hepatic coma, acute or unspecified, without mention of hepatitis delta 2020 Overview: Chronic hepatitis B Depressive disorder in remission 04/09/2021 documented as of this encounter (statuses as of 03/19/2022) [facility] History of Past illness Narrative* Problem Noted Date Resolved Date HEPATITIS B infection in the past 02/07/2008 04/09/2021 Overview: No evidence of chronic infection or cirrhosis Viral hepatitis B without me ntion of hepatic coma, acute or unspecified, without mention of hepatitis delta 2020 Overview: Chronic hepatitis B Depressive disorder in remission 04/09/2021 documented as of this encounter (statuses as of 03/28/2022) [facility] History of Past illness Narrative* Problem Noted Date Resolved Date HEPATITIS B infection in the past 02/07/2008 04/09/2021 Overview: No evidence of chronic infection or cirrhosis Viral hepatitis B without me ntion of hepatic coma, acute or unspecified, without mention of hepatitis delta 2020 Overview: Chronic hepatitis B Depressive disorder in remission 04/09/2021 documented as of this encounter (statuses as of 03/29/2022) [facility] History of Past illness Narrative* Problem Noted Date Resolved Date HEPATITIS B infection in the past 02/07/2008 04/09/2021 Overview: No evidence of chronic infection or cirrhosis Viral hepatitis B without me ntion of hepatic coma, acute or unspecified, without mention of hepatitis delta 2020 Overview: Chronic hepatitis B Depressive disorder in remission 04/09/2021 documented as of this encounter (statuses as of 04/18/2022) [facility] History of Past illness Narrative* Problem Noted Date Resolved Date HEPATITIS B infection in the past 02/07/2008 04/09/2021 Overview: No evidence of chronic infection or cirrhosis Viral hepatitis B without me ntion of hepatic coma, acute or unspecified, without mention of hepatitis delta 2020 Overview: Chronic hepatitis B Depressive disorder in remission 04/09/2021 documented as of this encounter (statuses as of 04/18/2022) [facility] History of Past illness Narrative* Problem Noted Date Resolved Date HEPATITIS B infection in the past 02/07/2008 04/09/2021 Overview: No evidence of chronic infection or cirrhosis Viral hepatitis B without me ntion of hepatic coma, acute or unspecified, without mention of hepatitis delta 2020 Overview: Chronic hepatitis B Depressive disorder in remission 04/09/2021 documented as of this encounter (statuses as of 05/06/2022) [facility]2008 History of Past illness Narrative* Problem Noted Date Resolved Date HEPATITIS B infection in the past 02/07/2008 04/09/2021 Overview: No evidence of chronic infection or cirrhosis Viral hepatitis B without me ntion of hepatic coma, acute or unspecified, without mention of hepatitis delta 2020 Overview: Chronic hepatitis B Depressive disorder in remission 04/09/2021 documented as of this encounter (statuses as of 05/09/2022) [facility] History of Past illness Narrative* Problem Noted Date Resolved Date HEPATITIS B infection in the past 02/07/2008 04/09/2021 Overview: No evidence of chronic infection or cirrhosis Viral hepatitis B without me ntion of hepatic coma, acute or unspecified, without mention of hepatitis delta 2020 Overview: Chronic hepatitis B Depressive disorder in remission 04/09/2021 documented as of this encounter (statuses as of 05/09/2022) [facility]2008 History of Past illness Narrative* Problem Noted Date Resolved Date HEPATITIS B infection in the past 02/07/2008 04/09/2021 Overview: No evidence of chronic infection or cirrhosis Viral hepatitis B without me ntion of hepatic coma, acute or unspecified, without mention of hepatitis delta 2020 Overview: Chronic hepatitis B Depressive disorder in remission 04/09/2021 documented as of this encounter (statuses as of 05/11/2022) [facility]2008 History of Past illness Narrative* Problem Noted Date Resolved Date HEPATITIS B infection in the past 02/07/2008 04/09/2021 Overview: No evidence of chronic infection or cirrhosis Viral hepatitis B without me ntion of hepatic coma, acute or unspecified, without mention of hepatitis delta 2020 Overview: Chronic hepatitis B Depressive disorder in remission 04/09/2021 documented as of this encounter (statuses as of 05/23/2022) [facility] History of Past illness Narrative* Problem Noted Date Resolved Date HEPATITIS B infection in the past 02/07/2008 04/09/2021 Overview: No evidence of chronic infection or cirrhosis Viral hepatitis B without me ntion of hepatic coma, acute or unspecified, without mention of hepatitis delta 2020 Overview: Chronic hepatitis B Depressive disorder in remission 04/09/2021 documented as of this encounter (statuses as of 05/25/2022) [facility] History of Past illness Narrative* Problem Noted Date Resolved Date HEPATITIS B infection in the past 02/07/2008 04/09/2021 Overview: No evidence of chronic infection or cirrhosis Viral hepatitis B without me ntion of hepatic coma, acute or unspecified, without mention of hepatitis delta 2020 Overview: Chronic hepatitis B Depressive disorder in remission 04/09/2021 documented as of this encounter (statuses as of 05/25/2022) [facility] History of Past illness Narrative* Problem Noted Date Resolved Date HEPATITIS B infection in the past 02/07/2008 04/09/2021 Overview: No evidence of chronic infection or cirrhosis Viral hepatitis B without me ntion of hepatic coma, acute or unspecified, without mention of hepatitis delta 2020 Overview: Chronic hepatitis B Depressive disorder in remission 04/09/2021 documented as of this encounter (statuses as of 05/25/2022) [facility] History of Past illness Narrative* Problem Noted Date Resolved Date HEPATITIS B infection in the past 02/07/2008 04/09/2021 Overview: No evidence of chronic infection or cirrhosis Viral hepatitis B without me ntion of hepatic coma, acute or unspecified, without mention of hepatitis delta 2020 Overview: Chronic hepatitis B Depressive disorder in remission 04/09/2021 documented as of this encounter (statuses as of 06/01/2022) [facility] History of Past illness Narrative* Problem Noted Date Resolved Date HEPATITIS B infection in the past 02/07/2008 04/09/2021 Overview: No evidence of chronic infection or cirrhosis Viral hepatitis B without me ntion of hepatic coma, acute or unspecified, without mention of hepatitis delta 2020 Overview: Chronic hepatitis B Depressive disorder in remission 04/09/2021 documented as of this encounter (statuses as of 06/09/2022) [facility] History of Past illness Narrative* Problem Noted Date Resolved Date HEPATITIS B infection in the past 02/07/2008 04/09/2021 Overview: No evidence of chronic infection or cirrhosis Viral hepatitis B without me ntion of hepatic coma, acute or unspecified, without mention of hepatitis delta 2020 Overview: Chronic hepatitis B Depressive disorder in remission 04/09/2021 documented as of this encounter (statuses as of 06/10/2022) [facility]2008 History of Past illness Narrative* Problem Noted Date Resolved Date HEPATITIS B infection in the past 02/07/2008 04/09/2021 Overview: No evidence of chronic infection or cirrhosis Viral hepatitis B without me ntion of hepatic coma, acute or unspecified, without mention of hepatitis delta 2020 Overview: Chronic hepatitis B Depressive disorder in remission 04/09/2021 documented as of this encounter (statuses as of 06/13/2022) [facility] History of Past illness Narrative* Problem Noted Date Resolved Date HEPATITIS B infection in the past 02/07/2008 04/09/2021 Overview: No evidence of chronic infection or cirrhosis Viral hepatitis B without me ntion of hepatic coma, acute or unspecified, without mention of hepatitis delta 2020 Overview: Chronic hepatitis B Depressive disorder in remission 04/09/2021 documented as of this encounter (statuses as of 06/16/2022) [facility] History of Past illness Narrative* Problem Noted Date Resolved Date HEPATITIS B infection in the past 02/07/2008 04/09/2021 Overview: No evidence of chronic infection or cirrhosis Viral hepatitis B without me ntion of hepatic coma, acute or unspecified, without mention of hepatitis delta 2020 Overview: Chronic hepatitis B Depressive disorder in remission 04/09/2021 documented as of this encounter (statuses as of 06/30/2022) [facility] History of Past illness Narrative* Problem Noted Date Resolved Date HEPATITIS B infection in the past 02/07/2008 04/09/2021 Overview: No evidence of chronic infection or cirrhosis Viral hepatitis B without me ntion of hepatic coma, acute or unspecified, without mention of hepatitis delta 2020 Overview: Chronic hepatitis B Depressive disorder in remission 04/09/2021 documented as of this encounter (statuses as of 07/03/2022) [facility] History of Past illness Narrative* Problem Noted Date Resolved Date HEPATITIS B infection in the past 02/07/2008 04/09/2021 Overview: No evidence of chronic infection or cirrhosis Viral hepatitis B without me ntion of hepatic coma, acute or unspecified, without mention of hepatitis delta 2020 Overview: Chronic hepatitis B Depressive disorder in remission 04/09/2021 documented as of this encounter (statuses as of 07/04/2022) [facility] History of Past illness Narrative* Problem Noted Date Resolved Date HEPATITIS B infection in the past 02/07/2008 04/09/2021 Overview: No evidence of chronic infection or cirrhosis Viral hepatitis B without me ntion of hepatic coma, acute or unspecified, without mention of hepatitis delta 2020 Overview: Chronic hepatitis B Depressive disorder in remission 04/09/2021 documented as of this encounter (statuses as of 07/04/2022) [facility] History of Past illness Narrative* Problem Noted Date Resolved Date HEPATITIS B infection in the past 02/07/2008 04/09/2021 Overview: No evidence of chronic infection or cirrhosis Viral hepatitis B without me ntion of hepatic coma, acute or unspecified, without mention of hepatitis delta 2020 Overview: Chronic hepatitis B Depressive disorder in remission 04/09/2021 documented as of this encounter (statuses as of 07/24/2022) [facility] History of Past illness Narrative* Problem Noted Date Resolved Date HEPATITIS B infection in the past 02/07/2008 04/09/2021 Overview: No evidence of chronic infection or cirrhosis Viral hepatitis B without me ntion of hepatic coma, acute or unspecified, without mention of hepatitis delta 2020 Overview: Chronic hepatitis B Depressive disorder in remission 04/09/2021 documented as of this encounter (statuses as of 07/24/2022) [facility] History of Past illness Narrative* Problem Noted Date Resolved Date HEPATITIS B infection in the past 02/07/2008 04/09/2021 Overview: No evidence of chronic infection or cirrhosis Viral hepatitis B without me ntion of hepatic coma, acute or unspecified, without mention of hepatitis delta 2020 Overview: Chronic hepatitis B Depressive disorder in remission 04/09/2021 documented as of this encounter (statuses as of 07/25/2022) [facility] History of Past illness Narrative* Problem Noted Date Resolved Date HEPATITIS B infection in the past 02/07/2008 04/09/2021 Overview: No evidence of chronic infection or cirrhosis Viral hepatitis B without me ntion of hepatic coma, acute or unspecified, without mention of hepatitis delta 2020 Overview: Chronic hepatitis B Depressive disorder in remission 04/09/2021 documented as of this encounter (statuses as of 07/25/2022) [facility] History of Past illness Narrative* Problem Noted Date Resolved Date HEPATITIS B infection in the past 02/07/2008 04/09/2021 Overview: No evidence of chronic infection or cirrhosis Viral hepatitis B without me ntion of hepatic coma, acute or unspecified, without mention of hepatitis delta 2020 Overview: Chronic hepatitis B Depressive disorder in remission 04/09/2021 documented as of this encounter (statuses as of 08/15/2022) [facility] History of Past illness Narrative* Problem Noted Date Resolved Date HEPATITIS B infection in the past 02/07/2008 04/09/2021 Overview: No evidence of chronic infection or cirrhosis Viral hepatitis B without me ntion of hepatic coma, acute or unspecified, without mention of hepatitis delta 2020 Overview: Chronic hepatitis B Depressive disorder in remission 04/09/2021 documented as of this encounter (statuses as of 08/15/2022) [facility]05-02-2008 History of Past illness Narrative* Problem Noted Date Resolved Date HEPATITIS B infection in the past 02/07/2008 04/09/2021 Overview: No evidence of chronic infection or cirrhosis Viral hepatitis B without me ntion of hepatic coma, acute or unspecified, without mention of hepatitis delta 2020 Overview: Chronic hepatitis B Depressive disorder in remission 04/09/2021 documented as of this encounter (statuses as of 08/16/2022) [facility]-02-2008 History of Past illness Narrative* Problem Noted Date Resolved Date HEPATITIS B infection in the past 02/07/2008 04/09/2021 Overview: No evidence of chronic infection or cirrhosis Viral hepatitis B without me ntion of hepatic coma, acute or unspecified, without mention of hepatitis delta 2020 Overview: Chronic hepatitis B Depressive disorder in remission 04/09/2021 documented as of this encounter (statuses as of 08/16/2022) [facility]-02-2008 History of Past illness Narrative* Problem Noted Date Resolved Date HEPATITIS B infection in the past 02/07/2008 04/09/2021 Overview: No evidence of chronic infection or cirrhosis Viral hepatitis B without me ntion of hepatic coma, acute or unspecified, without mention of hepatitis delta 2020 Overview: Chronic hepatitis B Depressive disorder in remission 04/09/2021 documented as of this encounter (statuses as of 08/17/2022) [facility]-02-2008 History of Past illness Narrative* Problem Noted Date Resolved Date HEPATITIS B infection in the past 02/07/2008 04/09/2021 Overview: No evidence of chronic infection or cirrhosis Viral hepatitis B without me ntion of hepatic coma, acute or unspecified, without mention of hepatitis delta 2020 Overview: Chronic hepatitis B Depressive disorder in remission 04/09/2021 documented as of this encounter (statuses as of 08/22/2022) [facility]-02-2008 History of Past illness Narrative* Problem Noted Date Resolved Date HEPATITIS B infection in the past 02/07/2008 04/09/2021 Overview: No evidence of chronic infection or cirrhosis Viral hepatitis B without me ntion of hepatic coma, acute or unspecified, without mention of hepatitis delta 2020 Overview: Chronic hepatitis B Depressive disorder in remission 04/09/2021 documented as of this encounter (statuses as of 09/04/2022) [facility]-02[facility]2008 History of Past illness Narrative* Problem Noted Date Resolved Date HEPATITIS B infection in the past 02/07/2008 04/09/2021 Overview: No evidence of chronic infection or cirrhosis Viral hepatitis B without me ntion of hepatic coma, acute or unspecified, without mention of hepatitis delta 2020 Overview: Chronic hepatitis B Depressive disorder in remission 04/09/2021 documented as of this encounter (statuses as of 09/06/2022) [facility]02[facility]2008 History of Past illness Narrative* Problem Noted Date Resolved Date HEPATITIS B infection in the past 02/07/2008 04/09/2021 Overview: No evidence of chronic infection or cirrhosis Viral hepatitis B without me ntion of hepatic coma, acute or unspecified, without mention of hepatitis delta 2020 Overview: Chronic hepatitis B Depressive disorder in remission 04/09/2021 documented as of this encounter (statuses as of 09/27/2022) [facility]02[facility]2008 History of Past illness Narrative* Problem Noted Date Resolved Date HEPATITIS B infection in the past 02/07/2008 04/09/2021 Overview: No evidence of chronic infection or cirrhosis Viral hepatitis B without me ntion of hepatic coma, acute or unspecified, without mention of hepatitis delta 2020 Overview: Chronic hepatitis B Depressive disorder in remission 04/09/2021 documented as of this encounter (statuses as of 09/27/2022) [facility]-02[facility]2008 History of Past illness Narrative* Problem Noted Date Resolved Date HEPATITIS B infection in the past 02/07/2008 04/09/2021 Overview: No evidence of chronic infection or cirrhosis Viral hepatitis B without me ntion of hepatic coma, acute or unspecified, without mention of hepatitis delta 2020 Overview: Chronic hepatitis B Depressive disorder in remission 04/09/2021 documented as of this encounter (statuses as of 10/18/2022) [facility]-02[facility]2008 History of Past illness Narrative* Problem Noted Date Resolved Date HEPATITIS B infection in the past 02/07/2008 04/09/2021 Overview: No evidence of chronic infection or cirrhosis Viral hepatitis B without me ntion of hepatic coma, acute or unspecified, without mention of hepatitis delta 2020 Overview: Chronic hepatitis B Depressive disorder in remission 04/09/2021 documented as of this encounter (statuses as of 10/18/2022) [facility]-02[facility]2008 History of Past illness Narrative* Problem Noted Date Resolved Date HEPATITIS B infection in the past 02/07/2008 04/09/2021 Overview: No evidence of chronic infection or cirrhosis Viral hepatitis B without me ntion of hepatic coma, acute or unspecified, without mention of hepatitis delta 2020 Overview: Chronic hepatitis B Depressive disorder in remission 04/09/2021 documented as of this encounter (statuses as of 10/31/2022) [facility]-02-2008 History of Past illness Narrative* Problem Noted Date Resolved Date HEPATITIS B infection in the past 02/07/2008 04/09/2021 Overview: No evidence of chronic infection or cirrhosis Viral hepatitis B without me ntion of hepatic coma, acute or unspecified, without mention of hepatitis delta 2020 Overview: Chronic hepatitis B Depressive disorder in remission 04/09/2021 documented as of this encounter (statuses as of 11/20/2022) [facility]-02[facility]2008 History of Past illness Narrative* Problem Noted Date Resolved Date HEPATITIS B infection in the past 02/07/2008 04/09/2021 Overview: No evidence of chronic infection or cirrhosis Viral hepatitis B without me ntion of hepatic coma, acute or unspecified, without mention of hepatitis delta 2020 Overview: Chronic hepatitis B Depressive disorder in remission 04/09/2021 documented as of this encounter (statuses as of 11/30/2022) [facility]-02[facility]2008 History of Past illness Narrative* Problem Noted Date Resolved Date HEPATITIS B infection in the past 02/07/2008 04/09/2021 Overview: No evidence of chronic infection or cirrhosis Viral hepatitis B without me ntion of hepatic coma, acute or unspecified, without mention of hepatitis delta 2020 Overview: Chronic hepatitis B Depressive disorder in remission 04/09/2021 documented as of this encounter (statuses as of 01/09/2023) [facility]-02[facility]2008 History of Past illness Narrative* Problem Noted Date Resolved Date HEPATITIS B infection in the past 02/07/2008 04/09/2021 Overview: No evidence of chronic infection or cirrhosis Viral hepatitis B without me ntion of hepatic coma, acute or unspecified, without mention of hepatitis delta 2020 Overview: Chronic hepatitis B Depressive disorder in remission 04/09/2021 documented as of this encounter (statuses as of 01/09/2023) [facility]02[facility]2008 History of Past illness Narrative* Problem Noted Date Resolved Date HEPATITIS B infection in the past 02/07/2008 04/09/2021 Overview: No evidence of chronic infection or cirrhosis Viral hepatitis B without me ntion of hepatic coma, acute or unspecified, without mention of hepatitis delta 2020 Overview: Chronic hepatitis B Depressive disorder in remission 04/09/2021 documented as of this encounter (statuses as of 01/15/2023) [facility]-02[facility]2008 History of Past illness Narrative* Problem Noted Date Resolved Date HEPATITIS B infection in the past 02/07/2008 04/09/2021 Overview: No evidence of chronic infection or cirrhosis Viral hepatitis B without me ntion of hepatic coma, acute or unspecified, without mention of hepatitis delta 2020 Overview: Chronic hepatitis B Depressive disorder in remission 04/09/2021 documented as of this encounter (statuses as of 01/22/2023) [facility]02[facility]2008 History of Past illness Narrative* Problem Noted Date Resolved Date HEPATITIS B infection in the past 02/07/2008 04/09/2021 Overview: No evidence of chronic infection or cirrhosis Viral hepatitis B without me ntion of hepatic coma, acute or unspecified, without mention of hepatitis delta 2020 Overview: Chronic hepatitis B Depressive disorder in remission 04/09/2021 documented as of this encounter (statuses as of 01/26/2023) [facility]-02[facility]2008 History of Past illness Narrative* Problem Noted Date Resolved Date HEPATITIS B infection in the past 02/07/2008 04/09/2021 Overview: No evidence of chronic infection or cirrhosis Viral hepatitis B without me ntion of hepatic coma, acute or unspecified, without mention of hepatitis delta 2020 Overview: Chronic hepatitis B Depressive disorder in remission 04/09/2021 documented as of this encounter (statuses as of 01/30/2023) [facility]02[facility]2008 History of Past illness Narrative* Problem Noted Date Resolved Date HEPATITIS B infection in the past 02/07/2008 04/09/2021 Overview: No evidence of chronic infection or cirrhosis Viral hepatitis B without me ntion of hepatic coma, acute or unspecified, without mention of hepatitis delta 2020 Overview: Chronic hepatitis B Depressive disorder in remission 04/09/2021 documented as of this encounter (statuses as of 01/31/2023) [facility]02[facility]2008 History of Past illness Narrative* Problem Noted Date Resolved Date HEPATITIS B infection in the past 02/07/2008 04/09/2021 Overview: No evidence of chronic infection or cirrhosis Viral hepatitis B without me ntion of hepatic coma, acute or unspecified, without mention of hepatitis delta 2020 Overview: Chronic hepatitis B Depressive disorder in remission 04/09/2021 documented as of this encounter (statuses as of 02/01/2023) [address]02-2008 History of Past illness Narrative* Problem Noted Date Resolved Date HEPATITIS B infection in the past 02/07/2008 04/09/2021 Overview: No evidence of chronic infection or cirrhosis Viral hepatitis B without me ntion of hepatic coma, acute or unspecified, without mention of hepatitis delta 2020 Overview: Chronic hepatitis B Depressive disorder in remission 04/09/2021 documented as of this encounter (statuses as of 02/07/2023) [facility]2008 History of Past illness Narrative* Problem Noted Date Resolved Date HEPATITIS B infection in the past 02/07/2008 04/09/2021 Overview: No evidence of chronic infection or cirrhosis Viral hepatitis B without me ntion of hepatic coma, acute or unspecified, without mention of hepatitis delta 2020 Overview: Chronic hepatitis B Depressive disorder in remission 04/09/2021 documented as of this encounter (statuses as of 02/07/2023) [facility]02[facility]2008 History of Past illness Narrative* Problem Noted Date Resolved Date HEPATITIS B infection in the past 02/07/2008 04/09/2021 Overview: No evidence of chronic infection or cirrhosis Viral hepatitis B without me ntion of hepatic coma, acute or unspecified, without mention of hepatitis delta 2020 Overview: Chronic hepatitis B Depressive disorder in remission 04/09/2021 documented as of this encounter (statuses as of 02/12/2023) [facility]02[facility]2008 History of Past illness Narrative* Problem Noted Date Resolved Date HEPATITIS B infection in the past 02/07/2008 04/09/2021 Overview: No evidence of chronic infection or cirrhosis Viral hepatitis B without me ntion of hepatic coma, acute or unspecified, without mention of hepatitis delta 2020 Overview: Chronic hepatitis B Depressive disorder in remission 04/09/2021 documented as of this encounter (statuses as of 02/20/2023) [facility]-02[facility]2008 History of Past illness Narrative* Problem Noted Date Resolved Date HEPATITIS B infection in the past 02/07/2008 04/09/2021 Overview: No evidence of chronic infection or cirrhosis Viral hepatitis B without me ntion of hepatic coma, acute or unspecified, without mention of hepatitis delta 2020 Overview: Chronic hepatitis B Depressive disorder in remission 04/09/2021 documented as of this encounter (statuses as of 02/20/2023) [facility]-02[facility]2008 History of Past illness Narrative* Problem Noted Date Resolved Date HEPATITIS B infection in the past 02/07/2008 04/09/2021 Overview: No evidence of chronic infection or cirrhosis Viral hepatitis B without me ntion of hepatic coma, acute or unspecified, without mention of hepatitis delta 2020 Overview: Chronic hepatitis B Depressive disorder in remission 04/09/2021 documented as of this encounter (statuses as of 02/21/2023) [facility]02[facility]2008 History of Past illness Narrative* Problem Noted Date Resolved Date HEPATITIS B infection in the past 02/07/2008 04/09/2021 Overview: No evidence of chronic infection or cirrhosis Viral hepatitis B without me ntion of hepatic coma, acute or unspecified, without mention of hepatitis delta 2020 Overview: Chronic hepatitis B Depressive disorder in remission 04/09/2021 documented as of this encounter (statuses as of 02/21/2023) [facility]02[facility]2008 History of Past illness Narrative* Problem Noted Date Resolved Date HEPATITIS B infection in the past 02/07/2008 04/09/2021 Overview: No evidence of chronic infection or cirrhosis Viral hepatitis B without me ntion of hepatic coma, acute or unspecified, without mention of hepatitis delta 2020 Overview: Chronic hepatitis B Depressive disorder in remission 04/09/2021 documented as of this encounter (statuses as of 03/15/2023) [facility]02[facility]2008 History of Past illness Narrative* Problem Noted Date Resolved Date HEPATITIS B infection in the past 02/07/2008 04/09/2021 Overview: No evidence of chronic infection or cirrhosis Viral hepatitis B without me ntion of hepatic coma, acute or unspecified, without mention of hepatitis delta 2020 Overview: Chronic hepatitis B Depressive disorder in remission 04/09/2021 documented as of this encounter (statuses as of 03/19/2023) [facility]02[facility]2008 History of Past illness Narrative* Problem Noted Date Resolved Date HEPATITIS B infection in the past 02/07/2008 04/09/2021 Overview: No evidence of chronic infection or cirrhosis Viral hepatitis B without me ntion of hepatic coma, acute or unspecified, without mention of hepatitis delta 2020 Overview: Chronic hepatitis B Depressive disorder in remission 04/09/2021 documented as of this encounter (statuses as of 03/21/2023) [facility]02[facility]2008 History of Past illness Narrative* Problem Noted Date Resolved Date HEPATITIS B infection in the past 02/07/2008 04/09/2021 Overview: No evidence of chronic infection or cirrhosis Viral hepatitis B without me ntion of hepatic coma, acute or unspecified, without mention of hepatitis delta 2020 Overview: Chronic hepatitis B Depressive disorder in remission 04/09/2021 documented as of this encounter (statuses as of 03/22/2023) [facility]-02[facility]2008 History of Past illness Narrative* Problem Noted Date Resolved Date HEPATITIS B infection in the past 02/07/2008 04/09/2021 Overview: No evidence of chronic infection or cirrhosis Viral hepatitis B without me ntion of hepatic coma, acute or unspecified, without mention of hepatitis delta 2020 Overview: Chronic hepatitis B Depressive disorder in remission 04/09/2021 documented as of this encounter (statuses as of 03/28/2023) [facility]-02-2008 History of Past illness Narrative* Problem Noted Date Resolved Date HEPATITIS B infection in the past 02/07/2008 04/09/2021 Overview: No evidence of chronic infection or cirrhosis Viral hepatitis B without me ntion of hepatic coma, acute or unspecified, without mention of hepatitis delta 2020 Overview: Chronic hepatitis B Depressive disorder in remission 04/09/2021 documented as of this encounter (statuses as of 03/29/2023) [facility]02[facility]2008 History of Past illness Narrative* Problem Noted Date Resolved Date HEPATITIS B infection in the past 02/07/2008 04/09/2021 Overview: No evidence of chronic infection or cirrhosis Viral hepatitis B without me ntion of hepatic coma, acute or unspecified, without mention of hepatitis delta 2020 Overview: Chronic hepatitis B Depressive disorder in remission 04/09/2021 documented as of this encounter (statuses as of 04/03/2023) [facility]-02[facility]2008 History of Past illness Narrative* Problem Noted Date Resolved Date HEPATITIS B infection in the past 02/07/2008 04/09/2021 Overview: No evidence of chronic infection or cirrhosis Viral hepatitis B without me ntion of hepatic coma, acute or unspecified, without mention of hepatitis delta 2020 Overview: Chronic hepatitis B Depressive disorder in remission 04/09/2021 documented as of this encounter (statuses as of 04/03/2023) [facility]-02[facility]2008 History of Past illness Narrative* Problem Noted Date Resolved Date HEPATITIS B infection in the past 02/07/2008 04/09/2021 Overview: No evidence of chronic infection or cirrhosis Viral hepatitis B without me ntion of hepatic coma, acute or unspecified, without mention of hepatitis delta 2020 Overview: Chronic hepatitis B Depressive disorder in remission 04/09/2021 documented as of this encounter (statuses as of 04/04/2023) [facility]02[facility]2008 History of Past illness Narrative* Problem Noted Date Resolved Date HEPATITIS B infection in the past 02/07/2008 04/09/2021 Overview: No evidence of chronic infection or cirrhosis Viral hepatitis B without me ntion of hepatic coma, acute or unspecified, without mention of hepatitis delta 2020 Overview: Chronic hepatitis B Depressive disorder in remission 04/09/2021 documented as of this encounter (statuses as of 04/09/2023) [facility]-02[facility]2008 History of Past illness Narrative* Problem Noted Date Diagnosed Date Resolved Date HEPATITIS B infection in the past 02/07/2008 04/09/2021 Overview: No evidence of chronic infection or cirrhosis Viral hepatitis B without me ntion of hepatic coma, acute or unspecified, without mention of hepatitis delta 04/09/2021 Overview: Chronic hepatitis B Depressive disorder in remission 04/09/2021 documented as of this encounter (statuses as of 04/17/2023) [facility]-02-2008 History of Past illness Narrative* Problem Noted Date Diagnosed Date Resolved Date HEPATITIS B infection in the past 02/07/2008 04/09/2021 Overview: No evidence of chronic infection or cirrhosis Viral hepatitis B without me ntion of hepatic coma, acute or unspecified, without mention of hepatitis delta 04/09/2021 Overview: Chronic hepatitis B Depressive disorder in remission 04/09/2021 documented as of this encounter (statuses as of 05/14/2023) [facility]02[facility]2008 History of Past illness Narrative* Problem Noted Date Diagnosed Date Resolved Date HEPATITIS B infection in the past 02/07/2008 04/09/2021 Overview: No evidence of chronic infection or cirrhosis Viral hepatitis B without me ntion of hepatic coma, acute or unspecified, without mention of hepatitis delta 04/09/2021 Overview: Chronic hepatitis B Depressive disorder in remission 04/09/2021 documented as of this encounter (statuses as of 05/15/2023) [facility]02[facility]2008 History of Past illness Narrative* Problem Noted Date Diagnosed Date Resolved Date HEPATITIS B infection in the past 02/07/2008 04/09/2021 Overview: No evidence of chronic infection or cirrhosis Viral hepatitis B without me ntion of hepatic coma, acute or unspecified, without mention of hepatitis delta 04/09/2021 Overview: Chronic hepatitis B Depressive disorder in remission 04/09/2021 documented as of this encounter (statuses as of 05/17/2023) [facility]02[facility]2008 History of Past illness Narrative* Problem Noted Date Diagnosed Date Resolved Date HEPATITIS B infection in the past 02/07/2008 04/09/2021 Overview: No evidence of chronic infection or cirrhosis Viral hepatitis B without me ntion of hepatic coma, acute or unspecified, without mention of hepatitis delta 04/09/2021 Overview: Chronic hepatitis B Depressive disorder in remission 04/09/2021 documented as of this encounter (statuses as of 05/25/2023) [facility]02[facility]2008 History of Past illness Narrative* Problem Noted Date Diagnosed Date Resolved Date HEPATITIS B infection in the past 02/07/2008 04/09/2021 Overview: No evidence of chronic infection or cirrhosis Viral hepatitis B without me ntion of hepatic coma, acute or unspecified, without mention of hepatitis delta 04/09/2021 Overview: Chronic hepatitis B Depressive disorder in remission 04/09/2021 documented as of this encounter (statuses as of 06/21/2023) [facility]02[facility]2008 History of Past illness Narrative* Problem Noted Date Diagnosed Date Resolved Date HEPATITIS B infection in the past 02/07/2008 04/09/2021 Overview: No evidence of chronic infection or cirrhosis Viral hepatitis B without me ntion of hepatic coma, acute or unspecified, without mention of hepatitis delta 04/09/2021 Overview: Chronic hepatitis B Depressive disorder in remission 04/09/2021 documented as of this encounter (statuses as of 06/25/2023) [facility]02[facility]2008 History of Past illness Narrative* Problem Noted Date Diagnosed Date Resolved Date HEPATITIS B infection in the past 02/07/2008 04/09/2021 Overview: No evidence of chronic infection or cirrhosis Viral hepatitis B without me ntion of hepatic coma, acute or unspecified, without mention of hepatitis delta 04/09/2021 Overview: Chronic hepatitis B Depressive disorder in remission 04/09/2021 documented as of this encounter (statuses as of 06/25/2023) [facility]02[facility]2008 History of Past illness Narrative* Problem Noted Date Diagnosed Date Resolved Date HEPATITIS B infection in the past 02/07/2008 04/09/2021 Overview: No evidence of chronic infection or cirrhosis Viral hepatitis B without me ntion of hepatic coma, acute or unspecified, without mention of hepatitis delta 04/09/2021 Overview: Chronic hepatitis B Depressive disorder in remission 04/09/2021 documented as of this encounter (statuses as of 06/25/2023) [facility]02[facility]2008 History of Past illness Narrative* Problem Noted Date Diagnosed Date Resolved Date HEPATITIS B infection in the past 02/07/2008 04/09/2021 Overview: No evidence of chronic infection or cirrhosis Viral hepatitis B without me ntion of hepatic coma, acute or unspecified, without mention of hepatitis delta 04/09/2021 Overview: Chronic hepatitis B Depressive disorder in remission 04/09/2021 documented as of this encounter (statuses as of 06/25/2023) [facility]02[facility]2008 History of Past illness Narrative* Problem Noted Date Diagnosed Date Resolved Date HEPATITIS B infection in the past 02/07/2008 04/09/2021 Overview: No evidence of chronic infection or cirrhosis Viral hepatitis B without me ntion of hepatic coma, acute or unspecified, without mention of hepatitis delta 04/09/2021 Overview: Chronic hepatitis B Depressive disorder in remission 04/09/2021 documented as of this encounter (statuses as of 06/25/2023) [facility]02[facility]2008 History of Past illness Narrative* Problem Noted Date Diagnosed Date Resolved Date HEPATITIS B infection in the past 02/07/2008 04/09/2021 Overview: No evidence of chronic infection or cirrhosis Viral hepatitis B without me ntion of hepatic coma, acute or unspecified, without mention of hepatitis delta 04/09/2021 Overview: Chronic hepatitis B Depressive disorder in remission 04/09/2021 documented as of this encounter (statuses as of 06/26/2023) [facility]02[facility]2008 History of Past illness Narrative* Problem Noted Date Diagnosed Date Resolved Date HEPATITIS B infection in the past 02/07/2008 04/09/2021 Overview: No evidence of chronic infection or cirrhosis Viral hepatitis B without me ntion of hepatic coma, acute or unspecified, without mention of hepatitis delta 04/09/2021 Overview: Chronic hepatitis B Depressive disorder in remission 04/09/2021 documented as of this encounter (statuses as of 06/27/2023) [facility]2008 History of Past illness Narrative* Problem Noted Date Diagnosed Date Resolved Date HEPATITIS B infection in the past 02/07/2008 04/09/2021 Overview: No evidence of chronic infection or cirrhosis Viral hepatitis B without me ntion of hepatic coma, acute or unspecified, without mention of hepatitis delta 04/09/2021 Overview: Chronic hepatitis B Depressive disorder in remission 04/09/2021 documented as of this encounter (statuses as of 07/23/2023) [facility]2008 History of Past illness Narrative* Problem Noted Date Diagnosed Date Resolved Date HEPATITIS B infection in the past 02/07/2008 04/09/2021 Overview: No evidence of chronic infection or cirrhosis Viral hepatitis B without me ntion of hepatic coma, acute or unspecified, without mention of hepatitis delta 04/09/2021 Overview: Chronic hepatitis B Depressive disorder in remission 04/09/2021 documented as of this encounter (statuses as of 08/02/2023) [facility]2008 History of Past illness Narrative* Problem Noted Date Diagnosed Date Resolved Date HEPATITIS B infection in the past 02/07/2008 04/09/2021 Overview: No evidence of chronic infection or cirrhosis Viral hepatitis B without me ntion of hepatic coma, acute or unspecified, without mention of hepatitis delta 04/09/2021 Overview: Chronic hepatitis B Depressive disorder in remission 04/09/2021 documented as of this encounter (statuses as of 08/09/2023) [facility]2008 History of Past illness Narrative* Problem Noted Date Diagnosed Date Resolved Date HEPATITIS B infection in the past 02/07/2008 04/09/2021 Overview: No evidence of chronic infection or cirrhosis Viral hepatitis B without me ntion of hepatic coma, acute or unspecified, without mention of hepatitis delta 04/09/2021 Overview: Chronic hepatitis B Depressive disorder in remission 04/09/2021 documented as of this encounter (statuses as of 08/11/2023) [facility]2008 History of Past illness Narrative* Problem Noted Date Diagnosed Date Resolved Date HEPATITIS B infection in the past 02/07/2008 04/09/2021 Overview: No evidence of chronic infection or cirrhosis Viral hepatitis B without me ntion of hepatic coma, acute or unspecified, without mention of hepatitis delta 04/09/2021 Overview: Chronic hepatitis B Depressive disorder in remission 04/09/2021 documented as of this encounter (statuses as of 08/12/2023) [facility]2008 History of Past illness Narrative* Problem Noted Date Diagnosed Date Resolved Date HEPATITIS B infection in the past 02/07/2008 04/09/2021 Overview: No evidence of chronic infection or cirrhosis Viral hepatitis B without me ntion of hepatic coma, acute or unspecified, without mention of hepatitis delta 04/09/2021 Overview: Chronic hepatitis B Depressive disorder in remission 04/09/2021 documented as of this encounter (statuses as of 08/12/2023) [facility]2008 History of Past illness Narrative* Problem Noted Date Diagnosed Date Resolved Date HEPATITIS B infection in the past 02/07/2008 04/09/2021 Overview: No evidence of chronic infection or cirrhosis Viral hepatitis B without me ntion of hepatic coma, acute or unspecified, without mention of hepatitis delta 04/09/2021 Overview: Chronic hepatitis B Depressive disorder in remission 04/09/2021 documented as of this encounter (statuses as of 08/12/2023) [facility]2008 History of Past illness Narrative* Problem Noted Date Diagnosed Date Resolved Date HEPATITIS B infection in the past 02/07/2008 04/09/2021 Overview: No evidence of chronic infection or cirrhosis Viral hepatitis B without me ntion of hepatic coma, acute or unspecified, without mention of hepatitis delta 04/09/2021 Overview: Chronic hepatitis B Depressive disorder in remission 04/09/2021 documented as of this encounter (statuses as of 08/12/2023) [facility]2008 History of Past illness Narrative* Problem Noted Date Diagnosed Date Resolved Date HEPATITIS B infection in the past 02/07/2008 04/09/2021 Overview: No evidence of chronic infection or cirrhosis Viral hepatitis B without me ntion of hepatic coma, acute or unspecified, without mention of hepatitis delta 04/09/2021 Overview: Chronic hepatitis B Depressive disorder in remission 04/09/2021 documented as of this encounter (statuses as of 08/12/2023) [facility]2008 History of Past illness Narrative* Problem Noted Date Diagnosed Date Resolved Date HEPATITIS B infection in the past 02/07/2008 04/09/2021 Overview: No evidence of chronic infection or cirrhosis Viral hepatitis B without me ntion of hepatic coma, acute or unspecified, without mention of hepatitis delta 04/09/2021 Overview: Chronic hepatitis B Depressive disorder in remission 04/09/2021 documented as of this encounter (statuses as of 08/14/2023) [facility]2008 History of Past illness Narrative* Problem Noted Date Diagnosed Date Resolved Date HEPATITIS B infection in the past 02/07/2008 04/09/2021 Overview: No evidence of chronic infection or cirrhosis Viral hepatitis B without me ntion of hepatic coma, acute or unspecified, without mention of hepatitis delta 04/09/2021 Overview: Chronic hepatitis B Depressive disorder in remission 04/09/2021 documented as of this encounter (statuses as of 08/14/2023) [facility]2008 History of Past illness Narrative* Problem Noted Date Diagnosed Date Resolved Date HEPATITIS B infection in the past 02/07/2008 04/09/2021 Overview: No evidence of chronic infection or cirrhosis Viral hepatitis B without me ntion of hepatic coma, acute or unspecified, without mention of hepatitis delta 04/09/2021 Overview: Chronic hepatitis B Depressive disorder in remission 04/09/2021 documented as of this encounter (statuses as of 08/15/2023) [facility]2008 History of Past illness Narrative* Problem Noted Date Diagnosed Date Resolved Date HEPATITIS B infection in the past 02/07/2008 04/09/2021 Overview: No evidence of chronic infection or cirrhosis Viral hepatitis B without me ntion of hepatic coma, acute or unspecified, without mention of hepatitis delta 04/09/2021 Overview: Chronic hepatitis B Depressive disorder in remission 04/09/2021 documented as of this encounter (statuses as of 08/17/2023) [facility]2008 History of Past illness Narrative* Problem Noted Date Diagnosed Date Resolved Date HEPATITIS B infection in the past 02/07/2008 04/09/2021 Overview: No evidence of chronic infection or cirrhosis Viral hepatitis B without me ntion of hepatic coma, acute or unspecified, without mention of hepatitis delta 04/09/2021 Overview: Chronic hepatitis B Depressive disorder in remission 04/09/2021 documented as of this encounter (statuses as of 09/04/2023) [facility]2008 History of Past illness Narrative* Problem Noted Date Diagnosed Date Resolved Date HEPATITIS B infection in the past 02/07/2008 04/09/2021 Overview: No evidence of chronic infection or cirrhosis Viral hepatitis B without me ntion of hepatic coma, acute or unspecified, without mention of hepatitis delta 04/09/2021 Overview: Chronic hepatitis B Depressive disorder in remission 04/09/2021 documented as of this encounter (statuses as of 09/05/2023) [facility]2008 History of Past illness Narrative* Problem Noted Date Diagnosed Date Resolved Date HEPATITIS B infection in the past 02/07/2008 04/09/2021 Overview: No evidence of chronic infection or cirrhosis Viral hepatitis B without me ntion of hepatic coma, acute or unspecified, without mention of hepatitis delta 04/09/2021 Overview: Chronic hepatitis B Depressive disorder in remission 04/09/2021 documented as of this encounter (statuses as of 09/18/2023) [facility]2008 History of Past illness Narrative* Problem Noted Date Diagnosed Date Resolved Date HEPATITIS B infection in the past 02/07/2008 04/09/2021 Overview: No evidence of chronic infection or cirrhosis Viral hepatitis B without me ntion of hepatic coma, acute or unspecified, without mention of hepatitis delta 04/09/2021 Overview: Chronic hepatitis B Depressive disorder in remission 04/09/2021 documented as of this encounter (statuses as of 11/13/2023) [facility]2008 History of Past illness Narrative* Problem Noted Date Diagnosed Date Resolved Date HEPATITIS B infection in the past 02/07/2008 04/09/2021 Overview: No evidence of chronic infection or cirrhosis Viral hepatitis B without me ntion of hepatic coma, acute or unspecified, without mention of hepatitis delta 04/09/2021 Overview: Chronic hepatitis B Depressive disorder in remission 04/09/2021 documented as of this encounter (statuses as of 11/13/2023) [facility]2008 History of Past illness Narrative* Problem Noted Date Diagnosed Date Resolved Date HEPATITIS B infection in the past 02/07/2008 04/09/2021 Overview: No evidence of chronic infection or cirrhosis Viral hepatitis B without me ntion of hepatic coma, acute or unspecified, without mention of hepatitis delta 04/09/2021 Overview: Chronic hepatitis B Depressive disorder in remission 04/09/2021 documented as of this encounter (statuses as of 11/16/2023) [facility]2008 History of Past illness Narrative* Problem Noted Date Diagnosed Date Resolved Date HEPATITIS B infection in the past 02/07/2008 04/09/2021 Overview: No evidence of chronic infection or cirrhosis Viral hepatitis B without me ntion of hepatic coma, acute or unspecified, without mention of hepatitis delta 04/09/2021 Overview: Chronic hepatitis B Depressive disorder in remission 04/09/2021 documented as of this encounter (statuses as of 12/11/2023) [facility]2008 History of Past illness Narrative* Problem Noted Date Diagnosed Date Resolved Date HEPATITIS B infection in the past 02/07/2008 04/09/2021 Overview: No evidence of chronic infection or cirrhosis Viral hepatitis B without me ntion of hepatic coma, acute or unspecified, without mention of hepatitis delta 04/09/2021 Overview: Chronic hepatitis B Depressive disorder in remission 04/09/2021 documented as of this encounter (statuses as of 12/13/2023) [facility]2008 History of Past illness Narrative* Problem Noted Date Diagnosed Date Resolved Date HEPATITIS B infection in the past 02/07/2008 04/09/2021 Overview: No evidence of chronic infection or cirrhosis Viral hepatitis B without me ntion of hepatic coma, acute or unspecified, without mention of hepatitis delta 04/09/2021 Overview: Chronic hepatitis B Depressive disorder in remission 04/09/2021 documented as of this encounter (statuses as of 12/17/2023) [facility]2008 History of Past illness Narrative* Problem Noted Date Diagnosed Date Resolved Date HEPATITIS B infection in the past 02/07/2008 04/09/2021 Overview: No evidence of chronic infection or cirrhosis Viral hepatitis B without me ntion of hepatic coma, acute or unspecified, without mention of hepatitis delta 04/09/2021 Overview: Chronic hepatitis B Depressive disorder in remission 04/09/2021 documented as of this encounter (statuses as of 12/20/2023) [facility]2008 History of Past illness Narrative* Problem Noted Date Diagnosed Date Resolved Date HEPATITIS B infection in the past 02/07/2008 04/09/2021 Overview: No evidence of chronic infection or cirrhosis Viral hepatitis B without me ntion of hepatic coma, acute or unspecified, without mention of hepatitis delta 04/09/2021 Overview: Chronic hepatitis B Depressive disorder in remission 04/09/2021 documented as of this encounter (statuses as of 12/21/2023) [facility]2008 History of Past illness Narrative* Problem Noted Date Diagnosed Date Resolved Date HEPATITIS B infection in the past 02/07/2008 04/09/2021 Overview: No evidence of chronic infection or cirrhosis Viral hepatitis B without me ntion of hepatic coma, acute or unspecified, without mention of hepatitis delta 04/09/2021 Overview: Chronic hepatitis B Depressive disorder in remission 04/09/2021 documented as of this encounter (statuses as of 12/31/2023) [facility]2008 History of Past illness Narrative* Problem Noted Date Diagnosed Date Resolved Date HEPATITIS B infection in the past 02/07/2008 04/09/2021 Overview: No evidence of chronic infection or cirrhosis Viral hepatitis B without me ntion of hepatic coma, acute or unspecified, without mention of hepatitis delta 04/09/2021 Overview: Chronic hepatitis B Depressive disorder in remission 04/09/2021 documented as of this encounter (statuses as of 01/01/2024) [facility]2008 History of Past illness Narrative* Problem Noted Date Diagnosed Date Resolved Date HEPATITIS B infection in the past 02/07/2008 04/09/2021 Overview: No evidence of chronic infection or cirrhosis Viral hepatitis B without me ntion of hepatic coma, acute or unspecified, without mention of hepatitis delta 04/09/2021 Overview: Chronic hepatitis B Depressive disorder in remission 04/09/2021 documented as of this encounter (statuses as of 01/24/2024) [facility]2008 History of Past illness Narrative* Problem Noted Date Diagnosed Date Resolved Date HEPATITIS B infection in the past 02/07/2008 04/09/2021 Overview: No evidence of chronic infection or cirrhosis Viral hepatitis B without me ntion of hepatic coma, acute or unspecified, without mention of hepatitis delta 04/09/2021 Overview: Chronic hepatitis B Depressive disorder in remission 04/09/2021 documented as of this encounter (statuses as of 01/24/2024) [facility]2008 History of Past illness Narrative* Problem Noted Date Diagnosed Date Resolved Date HEPATITIS B infection in the past 02/07/2008 04/09/2021 Overview: No evidence of chronic infection or cirrhosis Viral hepatitis B without me ntion of hepatic coma, acute or unspecified, without mention of hepatitis delta 04/09/2021 Overview: Chronic hepatitis B Depressive disorder in remission 04/09/2021 documented as of this encounter (statuses as of 01/25/2024) [facility] Diagnosis Examination of participant in clinical trial- [facility] Diagnosis Bone metastases (HCC)- Primary Secondary malignant neoplasm of bone and bone marrow Encounter for antineoplastic chemotherapy and immunotherapy Encounter for antineoplastic chemotherapy Examination of participant in clinical trial Malignant neoplasm of unspecified part of unspecified bronchus or lung (HCC) Nausea Nausea alone [facility] Diagnosis Cancer of trachea, bronchus, and lung (HCC)- Primary Malignant neoplasm of other parts of bronchus or lung Bone metastases (HCC) Secondary malignant neoplasm of bone and bone marrow [facility] Diagnosis Cancer of trachea, bronchus, and lung (HCC)- Primary Malignant neoplasm of other parts of bronchus or lung Bone metastases (HCC) Secondary malignant neoplasm of bone and bone marrow [facility] Examination of participant in clinical trial- Primary [facility] Diagnosis Cancer of trachea, bronchus, and lung (HCC)- Primary Malignant neoplasm of other parts of bronchus or lung Bone metastases (HCC) Secondary malignant neoplasm of bone and bone marrow [facility] Diagnosis Bone metastases (HCC) Secondary malignant neoplasm of bone and bone marrow Malignant neoplasm of unspecified part of unspecified bronchus or lung (HCC) Nausea Nausea alone [facility] Examination of participant in clinical trial- Primary [facility] Diagnosis Bone metastases (HCC)- Primary Secondary malignant neoplasm of bone and bone marrow Examination of participant in clinical trial Malignant neoplasm of unspecified part of unspecified bronchus or lung (HCC) Cancer of lower lobe of right lung (HCC) [facility] Encounter for screening mammogram for [facility] cancer [facility] Diagnosis Bone metastases (HCC)- Primary Secondary malignant neoplasm of bone and bone marrow Examination of participant in clinical trial Cancer of lower lobe of right lung (HCC) [facility] Examination of participant in clinical trial- Primary [facility] Diagnosis Cough- Primary COPD with asthma (HCC) Chronic obstructive asthma, unspecified Cigarette smoker Tobacco use disorder 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) Hypokalemia Hypopotassemia [facility] Examination of participant in clinical trial- Primary [facility] Diagnosis Bone metastases (HCC)- Primary Secondary malignant neoplasm of bone and bone marrow Cancer of trachea, bronchus, and lung (HCC) Malignant neoplasm of other parts of bronchus or lung Examination of participant in clinical trial [facility] Diagnosis Examination of participant in clinical trial- Primary 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)- Primary [facility] Diagnosis 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)- Primary Cancer of trachea, bronchus, and lung (HCC) Malignant neoplasm of other parts of bronchus or lung Bone metastases (HCC) Secondary malignant neoplasm of bone and bone marrow [facility] Diagnosis Malignant neoplasm of unspecified part of unspecified bronchus or lung (HCC) [facility] Diagnosis 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)- Primary Bone metastases (HCC) Secondary malignant neoplasm of bone and bone marrow Examination of participant in clinical trial [facility] Diagnosis 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)- Primary Acute bronchitis with chronic obstructive pulmonary disease (COPD) (HCC) Obstructive chronic bronchitis with acute bronchitis [facility] Diagnosis Cancer of trachea, bronchus, and lung (HCC)- Primary Malignant neoplasm of other parts of bronchus or lung Bone metastases (HCC) Secondary malignant neoplasm of bone and bone marrow [facility] Diagnosis Malignant neoplasm of unspecified part of unspecified bronchus or lung (HCC) [facility] Diagnosis Examination of participant in clinical trial- Primary [facility] Diagnosis Examination of participant in clinical trial- Primary [facility] Diagnosis Examination of participant in clinical trial- Primary 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, bronchus, and lung (HCC) Malignant neoplasm of other parts of bronchus or lung [facility] Diagnosis Cancer of trachea, bronchus, and lung (HCC)- Primary Malignant neoplasm of other parts of bronchus or lung Bone metastases (HCC) Secondary malignant neoplasm of bone and bone marrow [facility] Diagnosis Fibromyalgia- Primary Mylagia and myositis, unspecified Cough COPD with asthma (HCC) Chronic obstructive asthma, unspecified Cigarette smoker Tobacco use disorder Acute conjunctivitis of both eyes, unspecified acute conjunctivitis type 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) [facility] Diagnosis Cancer of trachea, bronchus, and lung (HCC)- Primary Malignant neoplasm of other parts of bronchus or lung Bone metastases (HCC) Secondary malignant neoplasm of bone and bone marrow [facility] Diagnosis Examination of participant in clinical trial- Primary [facility] Diagnosis Moderate persistent asthma without complication Unspecified asthma Cigarette smoker Tobacco use disorder [facility] Diagnosis Examination of participant in clinical trial- Primary [facility] Diagnosis 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)- Primary Bone metastases (HCC) Secondary malignant neoplasm of bone and bone marrow Examination of participant in clinical trial [facility] Diagnosis Examination of participant in clinical trial- Primary Cancer of lower lobe of right lung (HCC) Bone metastases (HCC) Secondary malignant neoplasm of bone and bone marrow [facility] Diagnosis Examination of participant in clinical trial- Primary [facility] Diagnosis Cough- Primary ST elevation myocardial infarction involving right coronary artery (HCC) Acute myocardial infarction of inferoposterior wall, initial episode of care Physical debility Debility, unspecified 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) COPD with asthma (HCC) Chronic obstructive asthma, unspecified Encounter for immunization Need for other specified prophylactic vaccination against single bacterial disease [facility] Diagnosis Cancer of trachea, bronchus, and lung (HCC)- Primary Malignant neoplasm of other parts of bronchus or lung Bone metastases (HCC) Secondary malignant neoplasm of bone and bone marrow [facility] Diagnosis Bone metastases (HCC)- Primary Secondary malignant neoplasm of bone and bone marrow Examination of participant in clinical trial Cancer of lower lobe of right lung (HCC) [facility] Diagnosis Examination of participant in clinical trial- Primary [facility] Diagnosis Bone metastases (HCC)- Primary Secondary malignant neoplasm of bone and bone marrow Cancer of lower lobe of right lung (HCC) Cancer of trachea, bronchus, and lung (HCC) Malignant neoplasm of other parts of bronchus or lung [facility] Diagnosis 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)- Primary [facility] Diagnosis Trigger ring finger of left hand- Primary Trigger finger (acquired) Right hip pain Pain in joint, pelvic region and thigh Cigarette smoker Tobacco use disorder History of [place] (myocardial infarction) Old myocardial infarction COPD with asthma (HCC) Chronic obstructive asthma, unspecified 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) [facility] Diagnosis Cancer of lower lobe of right lung (HCC)- Primary Left leg swelling Swelling of limb [facility] Examination of participant in clinical trial- Primary [facility] Diagnosis Encounter for screening mammogram for breast cancer [facility] Diagnosis COPD with exacerbation (HCC)- Primary Obstructive chronic bronchitis with exacerbation Acute cough Wheezing Shortness of breath [facility] Diagnosis Wheezing- Primary [facility] Diagnosis Right hip pain Pain in joint, pelvic region and thigh [facility] Diagnosis COPD with exacerbation (HCC)- Primary Obstructive chronic bronchitis with exacerbation Pulmonary emphysema, unspecified emphysema type (HCC) Simple chronic bronchitis (HCC) Simple chronic bronchitis Cigarette smoker Tobacco use disorder [facility] Diagnosis Trigger ring finger of left hand- Primary Trigger finger (acquired) Trigger ring finger of left hand Trigger finger (acquired) [facility] Diagnosis 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)- Primary Cancer of lower lobe of right lung (HCC) Cancer of trachea, bronchus, and lung (HCC) Malignant neoplasm of other parts of bronchus or lung Trigger ring finger of left hand Trigger finger (acquired) [facility] Diagnosis 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)- Primary Thyroid nodule Nontoxic uninodular goiter Trigger ring finger of left hand Trigger finger (acquired) [facility] Diagnosis Malignant neoplasm metastatic to bone (HCC)- Primary Secondary malignant neoplasm of bone and bone marrow 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, bronchus, and lung (HCC) Malignant neoplasm of other parts of bronchus or lung Trigger ring finger of left hand Trigger finger (acquired) [facility] Diagnosis Pulmonary emphysema, unspecified emphysema type (HCC)- Primary [facility] Diagnosis Malignant neoplasm of unspecified part of unspecified bronchus or lung (HCC)- Primary [facility] Diagnosis OPENED IN ERROR- Primary To allow closing an encounter opened in error (used in [employer]) [facility] Diagnosis Cancer of lower lobe of right lung (HCC)- Primary Malignant neoplasm metastatic to bone (HCC) Secondary malignant neoplasm of bone and bone marrow Iliac bone pain Disorder of bone and cartilage, unspecified Examination of participant in clinical trial Tobacco use disorder Nontoxic single thyroid nodule Nontoxic uninodular goiter [facility] Diagnosis 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)- Primary [facility] Diagnosis Eye irritation- Primary Other ill-defined disorder of eye [facility] Diagnosis 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)- Primary [facility] Diagnosis 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)- Primary Cancer of trachea, bronchus, and lung (HCC) Malignant neoplasm of other parts of bronchus or lung Malignant neoplasm metastatic to bone (HCC) Secondary malignant neoplasm of bone and bone marrow [facility] Diagnosis Thrush- Primary Candidiasis of mouth [facility]* Diagnosis Stage 3 severe COPD by GOLD classification (HCC)- Primary Malignant neoplasm of right lung, unspecified part of lung (HCC) Cigarette smoker Tobacco use disorder [facility] Diagnosis Fibromyalgia- Primary Mylagia and myositis, unspecified Cigarette smoker Tobacco use disorder Class 2 obesity due to excess calories with body mass index (BMI) of 39.0 to 39.9 in adult, unspecified whether serious comorbidity present COPD with asthma (HCC) Chronic obstructive asthma, unspecified Pain of right hip Mixed stress and urge urinary incontinence Mixed incontinence urge and stress (male)(female) Coronary artery disease involving cheesh-na coronary artery of cheesh-na heart without angina pectoris [facility] Diagnosis Cigarette smoker Tobacco use disorder [facility]* Diagnosis History of [place] (myocardial infarction) Old myocardial infarction Cigarette smoker Tobacco use disorder [facility] Diagnosis Examination of participant in clinical trial- Primary [facility]* Diagnosis 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)- Primary [facility]* Diagnosis Sore throat- Primary Acute pharyngitis Rash Rash and other nonspecific skin eruption Chronic obstructive pulmonary disease with acute exacerbation (HCC) Obstructive chronic bronchitis with exacerbation [facility]* Diagnosis 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)- Primary Cancer of trachea, bronchus, and lung (HCC) Malignant neoplasm of other parts of bronchus or lung Malignant neoplasm metastatic to bone (HCC) Secondary malignant neoplasm of bone and bone marrow [facility] Diagnosis Thyroid nodule Nontoxic uninodular goiter [facility]* Diagnosis Cancer of lower lobe of right lung (HCC) Examination of participant in clinical trial [facility] Diagnosis Cancer of trachea, bronchus, and lung (HCC) Malignant neoplasm of other parts of bronchus or lung Bone metastases Secondary malignant neoplasm of bone and bone marrow Examination of participant in clinical trial Malignant neoplasm of unspecified part of unspecified bronchus or lung (HCC) 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) [facility] Diagnosis Malignant neoplasm of unspecified part of unspecified bronchus or lung (HCC) [facility] Diagnosis 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, bronchus, and lung (HCC) Malignant neoplasm of other parts of bronchus or lung Malignant neoplasm metastatic to bone (HCC) Secondary malignant neoplasm of bone and bone marrow Examination of participant in clinical trial [facility] Diagnosis Hyperglycemia- Primary Other abnormal glucose Prediabetes Other abnormal glucose [facility]* Diagnosis 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) [facility]* Diagnosis 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)- Primary [facility]* Diagnosis 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)- Primary [facility] Diagnosis Malignant neoplasm metastatic to bone (HCC)- Primary Secondary malignant neoplasm of bone and bone marrow 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) [facility]* Diagnosis Encounter for screening mammogram for breast cancer [facility] Diagnosis Prediabetes- Primary Other abnormal glucose COPD with exacerbation (HCC) Obstructive chronic bronchitis with exacerbation Cigarette smoker Tobacco use disorder Cough Cancer of lower lobe of right lung (HCC) Examination of participant in clinical trial [facility] Diagnosis 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)- Primary [facility]* Diagnosis Malignant neoplasm of unspecified part of unspecified bronchus or lung (HCC) [facility]* Diagnosis 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)- Primary [facility] Diagnosis COPD with exacerbation (HCC) Obstructive chronic bronchitis with exacerbation [facility]* Diagnosis History of [place] (myocardial infarction) Old myocardial infarction [facility]* Diagnosis 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)- Primary [facility]* Diagnosis 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)- Primary Malaise and fatigue Other malaise and fatigue [facility] Diagnosis 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) [facility]* Diagnosis 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)- Primary Hypokalemia Hypopotassemia [facility] Diagnosis 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) Malaise and fatigue Other malaise and fatigue Hypoadrenalism (HCC) Glucocorticoid deficiency Malignant neoplasm metastatic to bone (HCC) Secondary malignant neoplasm of bone and bone marrow [facility] Diagnosis Stage 3 severe COPD by GOLD classification (HCC) Right hip pain Pain in joint, pelvic region and thigh Coronary artery disease involving cheesh-na coronary artery of cheesh-na heart without angina pectoris Irritable bowel syndrome with both constipation and diarrhea Fibromyalgia Mylagia and myositis, unspecified Cigarette smoker Tobacco use disorder Cough COPD with exacerbation (HCC) Obstructive chronic bronchitis with exacerbation [facility] Diagnosis Acute bronchitis with chronic obstructive pulmonary disease (COPD) (HCC) (HCC)- Primary Obstructive chronic bronchitis with acute bronchitis 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) Elevated glucose Other abnormal glucose Class 2 obesity due to excess calories with body mass index (BMI) of 38.0 to 38.9 in adult, unspecified whether serious comorbidity present Cigarette smoker Tobacco use disorder [facility] Diagnosis Cigarette smoker Tobacco use disorder [facility]* Diagnosis 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)- Primary [facility]* Diagnosis 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)- Primary [facility] Diagnosis Malignant neoplasm of unspecified part of unspecified bronchus or lung (HCC)- Primary Malaise and fatigue Other malaise and fatigue [facility]* Diagnosis 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)- Primary [facility]* Diagnosis Asthma-COPD overlap syndrome (HCC)- Primary Cigarette smoker Tobacco use disorder Lung cancer metastatic to bone (HCC) [facility]* Diagnosis Malignant neoplasm of unspecified part of unspecified bronchus or lung (HCC) [facility]* Diagnosis 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)- Primary [facility]* Diagnosis Acute recurrent sinusitis, unspecified location- Primary COPD with exacerbation (HCC) Obstructive chronic bronchitis with exacerbation [facility] Diagnosis Elevated glucose- Primary Other abnormal glucose Smoker Tobacco use disorder Cigarette smoker Tobacco use disorder 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) Cancer of lower lobe of right lung (HCC) COPD with exacerbation (HCC) Obstructive chronic bronchitis with exacerbation Polyp of mouth Screening for depression Encounter for immunization Need for other specified prophylactic vaccination against single bacterial disease Encounter for screening examination for other mental health and behavioral disorders Examination of participant in clinical trial Skin lesions [facility] Diagnosis Encounter for education- Primary Counseling NOS 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) [facility]* Diagnosis Shortness of breath on exertion- Primary Shortness of breath 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) [facility]* Diagnosis Dyspnea and respiratory abnormalities- Primary Other dyspnea and respiratory abnormality Shortness of breath on exertion Shortness of breath 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) Dyspnea and respiratory abnormalities Other dyspnea and respiratory abnormality Dyspnea and respiratory abnormalities Other dyspnea and respiratory abnormality [facility] Diagnosis Dyspnea and respiratory abnormalities Other dyspnea and respiratory abnormality [facility]* Diagnosis Dyspnea and respiratory abnormalities Other dyspnea and respiratory abnormality [facility]* Diagnosis Hypokalemia- Primary Hypopotassemia [facility]* Diagnosis Acute bronchitis with chronic obstructive pulmonary disease (COPD) (HCC) (HCC)- Primary Obstructive chronic bronchitis with acute bronchitis Cancer of lower lobe of right lung (HCC) Class 2 obesity due to excess calories without serious comorbidity with body mass index (BMI) of 35.0 to 35.9 in adult Tobacco use disorder Examination of participant in clinical trial [facility] Diagnosis Cancer of trachea, bronchus, and lung (HCC)- Primary Malignant neoplasm of other parts of bronchus or lung [facility]* Diagnosis 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)- Primary [facility]* Diagnosis Encounter for screening mammogram for breast cancer [facility]* Diagnosis 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) [facility]* Diagnosis 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)- Primary [facility]* Diagnosis 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) [facility]* Diagnosis Cough- Primary Ocular migraine Other forms of migraine, without mention of intractable migraine without mention of status migrainosus Allergic rhinitis, unspecified seasonality, unspecified trigger Coronary artery disease involving cheesh-na coronary artery of cheesh-na heart without angina pectoris 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) History of [place] (myocardial infarction) Old myocardial infarction Migraine with aura and without status migrainosus, not intractable Migraine with aura, without mention of intractable migraine without mention of status migrainosus [facility] Diagnosis Adenopathy- Primary Enlargement of lymph nodes [facility]* Diagnosis Adenopathy- Primary Enlargement of lymph nodes [facility]* Diagnosis Malignant neoplasm of right lung, unspecified part of lung (HCC)- Primary Lymphadenopathy Enlargement of lymph nodes Moderate COPD (chronic obstructive pulmonary disease) (HCC) Chronic airway obstruction, not elsewhere classified Cigarette smoker Tobacco use disorder Hypokalemia Hypopotassemia Bronchiolar disease Other diseases of trachea and bronchus [facility] Diagnosis Adenopathy Enlargement of lymph nodes Bronchiolar disease Other diseases of trachea and bronchus [facility]* Diagnosis 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)- Primary [facility] Diagnosis Encounter for education- Primary Counseling NOS 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) [facility] COPD with exacerbation (HCC)- Primary Obstructive chronic bronchitis with exacerbation Malignant neoplasm of right lung, unspecified part of lung (HCC) Cigarette smoker Tobacco use disorder documented in this encounter [facility] for referral (narrative)* Diagnostic Procedure Only (Routine) - Pending Review Specialty Diagnoses / Procedures Referred By Contac t Referred To Contact [facility] Diagnoses Encounter for screening mammogram for breast cancer Procedures CESILIA SCREENING SCREENING MAMMOGRAPHY BI 2-VIEW BREAST INC Fiona Hitchcock MD [address] [place] [address] [facility] [address] [place] [address] Referral ID Status Reason Start Date Expiration Date Visits Requested Visits Authorized [id number] Pending Review Auto-Generat ed Referral 02/15/2022 03/17/2023 1 1 [facility] for referral (narrative)* Outpatient Procedure (Routine) - Authorized Specialty Diagnoses / Procedures Referred By Contac t Referred To [facility] Diagnoses Cancer of lower lobe of right lung (HCC) Left leg swelling Procedures US LEG VEIN DVT UNL VAS LAB DUP-SCAN XTR VEINS UNILATERAL/LIMITED STUDY Carrie Preciado APRN.CNP [address] [place] [address] [facility] [address] [place] [id number] Referral ID Status Reason Start Date Expiration Date Visits Requested Visits Authorized [id number] Authorized Auto-Generat ed Referral 01/09/2023 01/09/2024 1 1 T [facility] for referral (narrative)* Diagnostic Procedure Only (Routine) - Pending Review Specialty Diagnoses / Procedures Referred By Contac t Referred To Contact [facility] Diagnoses Encounter for screening mammogram for breast cancer Procedures CESILIA SCREENING SCREENING MAMMOGRAPHY BI 2-VIEW BREAST INC Fiona Hitchcock MD [address] [place] [address] [facility] [address] [place] [address] Referral ID Status Reason Start Date Expiration Date Visits Requested Visits Authorized [id number] Pending Review Auto-Generat ed Referral 01/17/2023 02/16/2024 1 1 [facility] for referral (narrative)* Diagnostic Procedure Only (Routine) - Authorized Specialty Diagnoses / Procedures Referred By Contac t Referred To Contact [facility] Diagnoses Thyroid nodule Procedures US THYROID/PARATHYROID US SOFT TISSUE HEAD & NECK REAL TIME IMGE DOC Telly Duncan, DO [address] [place] [address] [facility] Referral ID Status Reason Start Date Expiration Date Visits Requested Visits Authorized [id number] Authorized Auto-Generat ed Referral 02/20/2023 03/21/2024 1 1 [facility] for referral (narrative)* Diagnostic Procedure Only (Routine) - Closed Specialty Diagnoses / Procedures Referred By Contac t Referred To Contact [facility] Diagnoses Thyroid nodule Procedures US THYROID/PARATHYROID US SOFT TISSUE HEAD & NECK REAL TIME IMGE DOCM Telly Duncan, DO [address] [place] [address] [place] [address] Referral ID Status Reason Start Date Expiration Date V isits Requested Visits Authorized [id number] Closed Auto-Generate d Referral 02/20/2023 03/21/2024 1 1 [facility] for referral (narrative)* Diagnostic Procedure Only (Routine) - Closed Specialty Diagnoses / Procedures Referred By Contac t Referred To Contact [facility] Diagnoses 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) Procedures NM PET/CT SKULL-THIGH SUBSEQUENT PET IMAGING CT ATTENUATION [place] [address] [place] [address] [facility] [address] [phone] Referral ID Status Reason Start Date Expiration Date V isits Requested Visits Authorized [id number] Closed Auto-Generate d Referral 11/01/2023 12/31/2023 1 1 [facility] for referral (narrative)* Diagnostic Procedure Only (Routine) - Pending Review Specialty Diagnoses / Procedures Referred By Cat t Referred To Contact [facility] Diagnoses Encounter for screening mammogram for breast cancer Procedures CESILIA SCREENING SCREENING MAMMOGRAPHY BI 2-VIEW BREAST INC CAD Fiona Durant MD [address] [place] [address] [facility] [address] [place] [address] Referral ID Status Reason Start Date Expiration Date Visits Requested Visits Authorized [id number] Pending Review Auto-Generat ed Referral 12/26/2023 01/24/2025 1 1 [facility] for referral (narrative)* Diagnostic Procedure Only (Routine) - Additional Clinical Info Needed Specialty Diagnoses / Procedures Referred By Cat valiente Referred To Contact [facility] Diagnoses 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) Procedures NM PET/CT SKULL-THIGH SUBSEQUENT PET IMAGING CT ATTENUATION [place] [address] [place] [address] [facility] [address] [phone] Referral ID Status Reason Start Date Expiration Date Visits Requested Visits Authorized [id number] Additional Clinical Info Needed Auto-Generat ed Referral 04/15/2024 05/15/2025 1 1 [facility] for referral (narrative)* Diagnostic Procedure Only (Routine) - Pending Review Specialty Diagnoses / Procedures Referred By Cat t Referred To Contact [facility] Diagnoses Malignant neoplasm of unspecified part of unspecified bronchus or lung (HCC) Procedures NM PET/CT SKULL-THIGH SUBSEQUENT PET IMAGING CT ATTENUATION [place] [address] [place] [address] Molecular [facility] [address] [place] [address] Referral ID Status Reason Start Date Expiration Date Visits Requested Visits Authorized [id number] Pending Review Auto-Generat ed Referral 09/18/2025 1 1 [facility] for visit Narrative* Diagnostic Procedure Only (Routine) - Closed Specialty Diagnoses / Procedures Referred By Cat valiente Referred To Contact [facility] Diagnoses 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) Procedures NM PET/CT SKULL-THIGH SUBSEQUENT PET IMAGING CT ATTENUATION [place] [address] [place] [address] [facility] [address] [place] [address] Referral ID Status Reason Start Date Expiration Date V isits Requested Visits Authorized [id number] Closed Auto-Generate d Referral 11/01/2023 12/31/2023 1 1 [facility] for visit Narrative* Diagnostic Procedure Only (Routine) - Closed Specialty Diagnoses / Procedures Referred By Cat valiente Referred To Contact [facility] Diagnoses Malignant neoplasm of unspecified part of unspecified bronchus or lung (HCC) Procedures NM PET/CT WHOLE BODY SUBSEQUENT PET IMAGING FOR CT [place] [address] [place] [address] [facility] [address] [place] [address] Referral ID Status Reason Start Date Expiration Date V isits Requested Visits Authorized [id number] Closed Auto-Generate d Referral 02/01/2024 04/01/2024 1 1 [facility] for visit Narrative* Diagnostic Procedure Only (Routine) - Closed Specialty Diagnoses / Procedures Referred By Cat t Referred To Contact [facility] Diagnoses 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) Procedures NM PET/CT SKULL-THIGH SUBSEQUENT PET IMAGING CT ATTENUATION [place] [address] [place] [address] [facility] [address] [place] [address] Referral ID Status Reason Start Date Expiration Date V isits Requested Visits Authorized [id number] Closed Auto-Generate d Referral 04/21/2024 06/20/2024 2 2 [facility] for visit Narrative* Diagnostic Procedure Only (Routine) - Closed Specialty Diagnoses / Procedures Referred By Cat valiente Referred To Contact MOLECULAR & FUNCTIONAL IMAGING Diagnoses Malignant neoplasm of unspecified part of unspecified bronchus or lung (HCC) Procedures NM PET/CT SKULL-THIGH SUBSEQUENT PET IMAGING CT ATTENUATION SKULL [place] [address] [place] [address] Molecular & Functional Imaging [address] [place] [address] Referral ID Status Reason Start Date Expiration Date V isits Requested Visits Authorized [id number] Closed Auto-Generate d Referral 09/01/2024 10/31/2024 1 1 [facility] for visit Narrative* Diagnostic Procedure Only (Routine) - Closed Specialty Diagnoses / Procedures Referred By Cat t Referred To Contact MOLECULAR & FUNCTIONAL IMAGING Diagnoses 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) Procedures NM PET/CT SKULL-THIGH SUBSEQUENT PET IMAGING CT ATTENUATION SKULL BASE MID-THIGH Sandoval Burgess MD [address] [place] [address] Phone: tel: Molecular Imaging [address] [place], [place] [id number] Phone: tel: Referral ID Status Reason Start Date Expiration Date V isits Requested Visits Authorized [id number] Closed Auto-Generate d Referral 02/25/2025 04/26/2025 2 2 [facility] Outpatient Procedure (Urgent) - Closed Specialty Diagnoses / Procedures Referred By Cat t Referred To Contact [facility] Diagnoses Adenopathy Procedures ECG COMPLETE ECG ROUTINE ECG W/LEAST 12 LDS W/I&R Edith Willis MD [address] [place] [address] Phone: tel: fax: [facility] [place] [address] [place] [address] Referral ID Status Reason Start Date Expiration Date V isits Requested Visits Authorized [id number] Closed Auto-Generate d Referral 03/19/2025 03/19/2026 1 1 [facility] Summary Purpose Family History No Family History Records FoundNo Family History Records FoundNo Family History Records FoundNo Family History Records FoundNo Family History Records FoundNo Family History Records FoundNo Family History Records Found Advance Directives No Advanced Directives Records FoundDocuments on File Type Date Recorded Patient Outplacement Consultant Expl anation Advance Directive(s) 06/02/2021 9:50 AM Advance Directive(s) 08/12/2020 2:24 PM Documents on File Type Date Recorded Patient Outplacement Consultant Expl anation Advance Directive(s) 06/02/2021 9:50 AM Advance Directive(s) 08/12/2020 2:24 PM Reason for Referral Specialty Diagnoses / Procedures Referred By Cat valiente Referred To Contact CT IMAGING Diagnoses Bone metastases (HCC) Malignant neoplasm of unspecified part of unspecified bronchus or lung (HCC) Nausea Procedures CT ABDOMEN W IVCON CT ABDOMEN W/CONTRAST Anca Huddleston MD [address] [place] [address] Ct Imaging Referral ID Status Reason Start Date Expiration Date Visits Requested Visits Authorized [id number] Pending Review Auto-Generat ed Referral 02/10/2022 02/02/2023 1 1 Specialty Diagnoses / Procedures Referred By Cat valiente Referred To Contact CT IMAGING Diagnoses Bone metastases (HCC) Malignant neoplasm of unspecified part of unspecified bronchus or lung (HCC) Procedures CT CHEST W IVCON DIAGNOSTIC COMPUTED TOMOGRAPHY THORAX W/CONTRAST Anca Huddleston MD [address] [place] [address] Ct Imaging Referral ID Status Reason Start Date Expiration Date Visits Requested Visits Authorized [id number] Pending Review Auto-Generat ed Referral 02/10/2022 02/02/2023 1 1 Referral ID Status Reason Start Date Expiration Date V isits Requested Visits Authorized [id number] Closed Auto-Generate d Referral 01/24/2022 03/25/2022 2 2 Referral ID Status Reason Start Date Expiration Date V isits Requested Visits Authorized [id number] Closed Auto-Generate d Referral 01/24/2022 03/25/2022 1 1 Specialty Diagnoses / Procedures Referred By Contac t Referred To Contact CT IMAGING Diagnoses Malignant neoplasm of unspecified part of unspecified bronchus or lung (HCC) Procedures CT CHEST W IVCON DIAGNOSTIC COMPUTED TOMOGRAPHY THORAX W/CONTRAST Anca Huddleston MD [address] [facility] [place] [address] Ct Imaging Referral ID Status Reason Start Date Expiration Date V isits Requested Visits Authorized [id number] Closed Auto-Generate d Referral 04/19/2022 06/18/2022 1 1 Specialty Diagnoses / Procedures Referred By Contac t Referred To Contact CT IMAGING Diagnoses Malignant neoplasm of unspecified part of unspecified bronchus or lung (HCC) Procedures CT ABDOMEN W IVCON CT ABDOMEN W/CONTRAST Anca Huddleston MD [address] [facility] [place] [address] Ct Imaging Referral ID Status Reason Start Date Expiration Date V isits Requested Visits Authorized [id number] Closed Auto-Generate d Referral 04/19/2022 06/18/2022 1 1 Specialty Diagnoses / Procedures Referred By Contac t Referred To Contact Diagnoses Moderate persistent asthma without complication Bebe Flores APRN.ETH[employer] QUALITY LEADER [address] [place] [address] Referral ID Status Reason Start Date Expiration Date Visits Re quested Visits Authorized [id number] Closed 1 1 Specialty Diagnoses / Procedures Referred By Contac t Referred To Contact Fiona Durant MD [address] [place] [address] Referral ID Status Reason Start Date Expiration Date Visits Re quested Visits Authorized [id number] Closed 1 1 Specialty Diagnoses / Procedures Referred By Contac t Referred To Contact Pulmonary and Critical Care Medicine Diagnoses Pulmonary emphysema, unspecified emphysema type (HCC) Simple chronic bronchitis (HCC) COPD with exacerbation (HCC) Procedures CONSULT TO PULM/CRITICAL CARE OFFICE/OUTPATIENT [facility] HIGH MDM 60-74 MINUTES Bebe Flores, CREDIT AND LOAN COLLECTIONS SUPERVISOR.ETHANOL QUALITY LEADER [address] [place] [address] Referral ID Status Reason Start Date Expiration Date Visits Requested Visits Authorized [id number] Authorized PCP Requested Referral 02/01/2023 02/01/2024 1 1 Specialty Diagnoses / Procedures Referred By Contac t Referred To Contact CT IMAGING Diagnoses Malignant neoplasm of unspecified part of unspecified bronchus or lung (HCC) Procedures CT CHEST W IVCON DIAGNOSTIC COMPUTED TOMOGRAPHY THORAX W/CONTRAST Telly Duncan, DO [address] [facility] [address] Ct Imaging Referral ID Status Reason Start Date Expiration Date Visits Requested Visits Authorized [id number] Pending Review Auto-Generat ed Referral 05/11/2023 04/25/2024 1 1 Specialty Diagnoses / Procedures Referred By Contac t Referred To Contact CT IMAGING Diagnoses Malignant neoplasm of unspecified part of unspecified bronchus or lung (HCC) Procedures CT ABD/PEL W IVCON CT ABD & PELVIS W/CONTRAST Telly Duncan, DO [address] [facility] [place] [address] Ct Imaging Referral ID Status Reason Start Date Expiration Date Visits Requested Visits Authorized [id number] Pending Review Auto-Generat ed Referral 05/11/2023 04/25/2024 1 1 Specialty Diagnoses / Procedures Referred By Contac t Referred To Contact Diagnoses Stage 3 severe COPD by GOLD classification (HCC) Ann Slade, PAAngC [address] [place] [address] Referral ID Status Reason Start Date Expiration Date Visits Re quested Visits Authorized [id number] Closed 1 1 Specialty Diagnoses / Procedures Referred By Contac t Referred To Contact Ann Slade PA-C [address] [place] [address] Referral ID Status Reason Start Date Expiration Date Visits Re quested Visits Authorized [id number] Closed 1 1 Specialty Diagnoses / Procedures Referred By Contac t Referred To Contact CT IMAGING Diagnoses Cancer of lower lobe of right lung (HCC) Examination of participant in clinical trial Procedures CT CHEST W IVCON DIAGNOSTIC COMPUTED TOMOGRAPHY THORAX W/CONTRAST Carrie Preciado, CREDIT AND LOAN COLLECTIONS SUPERVISOR.CHANGE MANAGEMENT DIRECTOR [address] [place] [address] [place] [address] Referral ID Status Reason Start Date Expiration Date V isits Requested Visits Authorized [id number] Closed Auto-Generate d Referral 01/30/2023 03/31/2023 1 1 Specialty Diagnoses / Procedures Referred By Contac t Referred To Contact CT IMAGING Diagnoses Cancer of lower lobe of right lung (HCC) Examination of participant in clinical trial Procedures CT ABD/PEL W IVCON CT ABD & PELVIS W/CONTRAST Carrie Preciado, CREDIT AND LOAN COLLECTIONS SUPERVISOR.CHANGE MANAGEMENT DIRECTOR [address] [place] [address] [place] [address] Referral ID Status Reason Start Date Expiration Date V isits Requested Visits Authorized [id number] Closed Auto-Generate d Referral 01/30/2023 03/31/2023 1 1 Specialty Diagnoses / Procedures Referred By Contac t Referred To Contact CT IMAGING Diagnoses 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) Malignant neoplasm of unspecified part of unspecified bronchus or lung (HCC) Procedures CT CHEST W IVCON DIAGNOSTIC COMPUTED TOMOGRAPHY THORAX W/CONTRAST Telly Duncan, DO [address] [place] [address] [place] [address] Referral ID Status Reason Start Date Expiration Date V isits Requested Visits Authorized [id number] Closed Auto-Generate d Referral 11/09/2022 12/09/2023 1 1 Specialty Diagnoses / Procedures Referred By Contac t Referred To Contact CT IMAGING Diagnoses Cancer of trachea, bronchus, and lung (HCC) Bone metastases Examination of participant in clinical trial Procedures CT ABD/PEL W IVCON CT ABD & PELVIS W/CONTRAST Anca Huddleston MD [address] [place] [address] Ct Imaging [place] [address] Referral ID Status Reason Start Date Expiration Date V isits Requested Visits Authorized [id number] Closed Auto-Generate d Referral 10/22/2022 12/21/2022 1 1 Specialty Diagnoses / Procedures Referred By Contac t Referred To Contact CT IMAGING Diagnoses Malignant neoplasm of unspecified part of unspecified bronchus or lung (HCC) Procedures CT ABDOMEN W IVCON CT ABDOMEN W/CONTRAST Anca Huddleston MD [address] [place] [address] Ct Imaging [place] [address] Referral ID Status Reason Start Date Expiration Date V isits Requested Visits Authorized [id number] Closed Auto-Generate d Referral 07/28/2022 09/26/2022 2 2 Specialty Diagnoses / Procedures Referred By Contac t Referred To Contact CT IMAGING Diagnoses Malignant neoplasm of unspecified part of unspecified bronchus or lung (HCC) Procedures CT CHEST W IVCON DIAGNOSTIC COMPUTED TOMOGRAPHY THORAX W/CONTRAST Anca Huddleston MD [address] [place] [address] Ct Imaging [place] [address] Referral ID Status Reason Start Date Expiration Date V isits Requested Visits Authorized [id number] Closed Auto-Generate d Referral 07/28/2022 09/26/2022 1 1 Specialty Diagnoses / Procedures Referred By Contac t Referred To Contact CT IMAGING Diagnoses 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, bronchus, and lung (HCC) Malignant neoplasm metastatic to bone (HCC) Examination of participant in clinical trial Procedures CT ABD/PEL W IVCON CT ABD & PELVIS W/[place] [address] [place] [address] [place] [address] Referral ID Status Reason Start Date Expiration Date V isits Requested Visits Authorized [id number] Closed Auto-Generate d Referral 07/20/2023 09/18/2023 1 1 Specialty Diagnoses / Procedures Referred By Contac t Referred To Contact CT IMAGING Diagnoses 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, bronchus, and lung (HCC) Malignant neoplasm metastatic to bone (HCC) Examination of participant in clinical trial Procedures CT CHEST W IVCON DIAGNOSTIC COMPUTED TOMOGRAPHY THORAX W/[place] [address] [place] [address] Ct Imaging [place] [address] Referral ID Status Reason Start Date Expiration Date V isits Requested Visits Authorized [id number] Closed Auto-Generate d Referral 07/20/2023 09/18/2023 1 1 Referral ID Status Reason Start Date Expiration Date Visits Re quested Visits Authorized [id number] Closed 1 1 Referral ID Status Reason Start Date Expiration Date V isits Requested Visits Authorized [id number] Authorized 02/20/2024 08/17/2024 1 1 Specialty Diagnoses / Procedures Referred By Contac t Referred To Contact Diagnoses Stage 3 severe COPD by GOLD classification ([facility] [address] [place] [address] Referral ID Status Reason Start Date Expiration Date Visits Re quested Visits Authorized [id number] Closed 1 1 Specialty Diagnoses / Procedures Referred By Contac t Referred To Contact Diagnoses Chronic obstructive pulmonary disease, unspecified COPD type ([facility]) Georgina Morgan MD [address] [place] [address] Referral ID Status Reason Start Date Expiration Date Visits Re quested Visits Authorized [id number] Closed 1 1 Medications Administered Section Inactive Administered Medications - up to 3 most recent administrations Medication Order MAR Action Action Date Dose Rate Site INV PEMBROLIZUMAB (IRB EU2953/19-600) 200 mg in NaCl 0.9% 50 mL 200 mg, INTRAVENOUS, Administer over 30 Minutes, ONCE, 1 dose, On Sun01/04/22 at 1430, APPROX. TOTAL VOLUME Exp 199901/04/22 Administer with 0.2 micron filter. Exp: (6 hr) New Bag/Syringe/Bottle 01/04/2022 2:47 PM EDT 200 mg Inactive Administered Medications - up to 3 most recent administrations Medication Order MAR Action Action Date Dose Rate Site INV PEMBROLIZUMAB (IRB SV3639/19-600) 200 mg in NaCl 0.9% 50 mL 200 mg, INTRAVENOUS, Administer over 30 Minutes, ONCE, 1 dose, On Sun01/25/22 at 1430, APPROX. TOTAL VOLUME Exp 199901/25/22 Administer with 0.2 micron filter. Exp: (6 hr) New Bag/Syringe/Bottle 01/25/2022 2:49 PM EDT 200 mg Inactive Administered Medications - up to 3 most recent administrations Medication Order MAR Action Action Date Dose Rate Site INV PEMBROLIZUMAB (IRB NR0207/19-600) 200 mg in NaCl 0.9% 50 mL 200 mg, INTRAVENOUS, Administer over 30 Minutes, ONCE, 1 dose, On Sun02/15/22 at 1030, APPROX. TOTAL VOLUME Exp 1630 02/15/22 Administer with 0.2 micron filter. Exp: (6 hr) New Bag/Syringe/Bottle 02/15/2022 10:39 AM EDT 200 mg zoledronic xi-vhfbzrjh-3.9NaCl 4 mg iv piggyback 100 mL (ZOMETA) 4 mg, INTRAVENOUS, Administer over 15 Minutes, ONCE, 1 dose, On Sun02/15/22 at 1030, Hazardous Potential Reproductive Risk Drug: Use appropriate PPE. New Bag/Syringe/Bottle 02/15/2022 11:11 AM EDT 4 mg Inactive Administered Medications - up to 3 most recent administrations Medication Order MAR Action Action Date Dose Rate Site INV PEMBROLIZUMAB (IRB MC1334/19-600) 200 mg in NaCl 0.9% 50 mL 200 mg, INTRAVENOUS, Administer over 30 Minutes, ONCE, 1 dose, On Sun03/29/22 at 1500, exp 2100 03/29/22 (room temp) Approx Total Volume: 66 mL Administer with 0.2 micron filter. Exp: (6 hr) New Bag/Syringe/Bottle 03/29/2022 3:21 PM EDT 200 mg Inactive Administered Medications - up to 3 most recent administrations Medication Order MAR Action Action Date Dose Rate Site INV PEMBROLIZUMAB (IRB [id number]/19-600) 200 mg in NaCl 0.9% 50 mL 200 mg, INTRAVENOUS, Administer over 30 Minutes, ONCE, 1 dose, On Sun04/18/22 at 1330, APPROX. TOTAL VOLUME = 66 mls Exp 19304/18/22 Administer with 0.2 micron filter. Exp: (6 hr) New Bag/Syringe/Bottle 04/18/2022 2:16 PM EDT 200 mg Inactive Administered Medications - up to 3 most recent administrations Medication Order MAR Action Action Dose Rate Site INV PEMBROLIZUMAB (IRB HG3100/19-600) 200 mg in NaCl 0.9% 50 mL 200 mg, INTRAVENOUS, Administer over 30 Minutes, ONCE, 1 dose, On Sun05/23/22 at 1000, APPROX. TOTAL VOLUME = 66 mls Exp 159905/23/22 Administer with 0.2 micron filter. Exp: (6 hr) New Bag/Syringe/Bottle 05/23/2022 10:22 AM EDT 200 mg zoledronic tc-dgyxsnhb-7.9NaCl 4 mg iv piggyback 100 mL (ZOMETA) 4 mg, INTRAVENOUS, Administer over 15 Minutes, ONCE, 1 dose, On Sun05/23/22 at 1000, Hazardous Potential Reproductive Risk Drug: Use appropriate PPE. New Bag/Syringe/Bottle 05/23/2022 9:57 AM EDT 4 mg Inactive Administered Medications - up to 3 most recent administrations Medication Order [facility] Action Dose Rate Site INV PEMBROLIZUMAB (IRB PG3139/19-600) 200 mg in NaCl 0.9% 50 mL 200 mg, INTRAVENOUS, Administer over 30 Minutes, ONCE, 1 dose, On Sun06/13/22 at 1430, APPROX. TOTAL VOLUME = 66 mls Exp 06/13/22 @ 2030 Administer with 0.2 micron filter. Exp: (6 hr) New Bag/Syringe/Bottle 06/13/2022 2:53 PM EDT 200 mg Inactive Administered Medications - up to 3 most recent administrations Medication Order [facility] Action Action Date Dose Rate Site INV PEMBROLIZUMAB (IRB AF1413/19-600) 200 mg in NaCl 0.9% 50 mL 200 mg, INTRAVENOUS, Administer over 30 Minutes, ONCE, 1 dose, On Sun07/04/22 at 1430, APPROX. TOTAL VOLUME = 66 mls Exp 202907/04/22 Administer with 0.2 micron filter. Exp: (6 hr) New Bag/Syringe/Bottle 07/04/2022 2:25 PM EDT 200 mg Inactive Administered Medications - up to 3 most recent administrations Medication Order MAR Action Action Date Dose Rate Site INV PEMBROLIZUMAB (IRB [id number]/19-600) 200 mg in NaCl 0.9% 50 mL 200 mg, INTRAVENOUS, Administer over 30 Minutes, ONCE, 1 dose, On Sun09/06/22 at 1400, Approx. Total Volume: 66mL exp 159909/06/22 (room temp) Administer with 0.2 micron filter. Exp: (6 hr) New Bag/Syringe/Bottle 09/06/2022 2:05 PM EST 200 mg Inactive Administered Medications - up to 3 most recent administrations Medication Order MAR Action Action Date Dose Rate Site INV PEMBROLIZUMAB (IRB [id number]/[id number]) 200 mg in NaCl 0.9% 50 mL 200 mg, INTRAVENOUS, Administer over 30 Minutes, ONCE, 1 dose, On Sun09/27/22 at 1400, Approx. total volume: 66mL Exp: 1600 09/27/22 (room temp) Administer with 0.2 micron filter. Exp: (6 hr) New Bag/Syringe/Bottle 09/27/2022 2:09 PM EST 200 mg Inactive Administered Medications - up to 3 most recent administrations Medication Order MAR Action Action Date Dose Rate Site pembrolizumab 400 mg in NaCl 0.9% 74 mL (KEYTRUDA) 400 mg, INTRAVENOUS, Administer over 30 Minutes, ONCE, 1 dose, On Sun10/18/22 at 1330, exp 199910/18/22 (room temp) Administer with 0.2 micron filter. New Bag/Syringe/Bottle 10/18/2022 1:49 PM EST 400 mg Inactive Administered Medications - up to 3 most recent administrations Medication Order MAR Action Action Date Dose Rate Site pembrolizumab 400 mg in NaCl 0.9% 74 mL (KEYTRUDA) 400 mg, INTRAVENOUS, Administer over 30 Minutes, ONCE, 1 dose, On Sun02/21/23 at 1300, exp 02/25/23 (refrigerated) Administer with 0.2 micron filter. New Bag/Syringe/Bottle 02/21/2023 1:04 PM EDT 400 mg zoledronic gy-rtknhqfl-6.9NaCl 4 mg iv piggyback 100 mL (ZOMETA) 4 mg, INTRAVENOUS, Administer over 15 Minutes, ONCE, 1 dose, On Sun02/21/23 at 1300, Hazardous Potential Reproductive Risk Drug: Use appropriate PPE. New Bag/Syringe/Bottle 02/21/2023 12:47 PM EDT 4 mg Inactive Administered Medications - up to 3 most recent administrations Medication Order MAR Action Action Date Dose Rate Site pembrolizumab 400 mg in NaCl 0.9% 74 mL (KEYTRUDA) 400 mg, INTRAVENOUS, Administer over 30 Minutes, ONCE, 1 dose, On Sun04/04/23 at 1200, Expiration: 04/07/23 1200 Administer with 0.2 micron filter. New Bag/Syringe/Bottle 04/04/2023 11:58 AM EDT 400 mg Inactive Administered Medications - up to 3 most recent administrations Medication Order MAR Action Action Date Dose Rate Site pembrolizumab 400 mg in NaCl 0.9% 74 mL (KEYTRUDA) 400 mg, INTRAVENOUS, Administer over 30 Minutes, ONCE, 1 dose, On Sun05/16/23 at 1430, exp 05/19/23 (refrigerated) Administer with 0.2 micron filter. New Bag/Syringe/Bottle 05/16/2023 2:52 PM EDT 400 mg zoledronic af-ossqarbd-3.9NaCl 4 mg iv piggyback 100 mL (ZOMETA) 4 mg, INTRAVENOUS, Administer over 15 Minutes, ONCE, 1 dose, On Sun05/16/23 at 1430, Hazardous Potential Reproductive Risk Drug: Use appropriate PPE. New Bag/Syringe/Bottle 05/16/2023 2:33 PM EDT 4 mg Inactive Administered Medications - up to 3 most recent administrations Medication Order MAR Action Action Date Dose Rate Site pembrolizumab 400 mg in NaCl 0.9% 74 mL (KEYTRUDA) 400 mg, INTRAVENOUS, Administer over 30 Minutes, ONCE, 1 dose, On Sun08/08/23 at 1500, exp 1200 08/12/23 (refrigerated) Administer with 0.2 micron filter. New Bag/Syringe/Bottle 08/08/2023 2:41 PM EDT 400 mg zoledronic ww-pqlzdaqv-3.9NaCl 4 mg iv piggyback 100 mL (ZOMETA) 4 mg, INTRAVENOUS, Administer over 15 Minutes, ONCE, 1 dose, On Sun08/08/23 at 1500, Hazardous Potential Reproductive Risk Drug: Use appropriate PPE. New Bag/Syringe/Bottle 08/08/2023 3:14 PM EDT 4 mg Additional Source Comments INFORMATION SOURCE (unrecogn ized section and content) DATE CREATED AUTHOR 07/06/2020 [facility] DATE CREATED AUTHOR AUTHOR'S ORGANIZ ATION 06/29/2021 [facility] DATE CREATED AUTHOR AUTHOR'S ORGANIZ ATION 07/10/2022 [facility] DATE CREATED AUTHOR AUTHOR'S ORGANIZ ATION 02/01/2025 [facility] DATE CREATED AUTHOR AUTHOR'S ORGANIZ ATION 03/11/2025 [facility] DATE CREATED AUTHOR AUTHOR'S ORGANIZ ATION 03/22/2025 [facility] DATE CREATED AUTHOR AUTHOR'S ORGANIZ ATION 04/25/2025 [facility] Source Comments (unrecognize d section and content) In the event this informatio n is protected by the Federal Confidentiality of Alcohol and Drug Abuse Patient Records regulations: The Federal rules restrict any use of the information to criminally investigate or prosecute any alcohol or drug abuse patient.[facility] the event this information is protected by the Federal Confidentiality of Alcohol and Drug Abuse Patient Records regulations: The Federal rules restrict any use of the information to criminally investigate or prosecute any alcohol or drug abuse patient.[facility] Dayton[facility] the event this information is protected by the Federal Confidentiality of Alcohol and Drug Abuse Patient Records regulations: The Federal rules restrict any use of the information to criminally investigate or prosecute any alcohol or drug abuse patient.[facility] Dayton[facility] the event this information is protected by the Federal Confidentiality of Alcohol and Drug Abuse Patient Records regulations: The Federal rules restrict any use of the information to criminally investigate or prosecute any alcohol or drug abuse patient.[facility] Dayton[facility] the event this information is protected by the Federal Confidentiality of Alcohol and Drug Abuse Patient Records regulations: The Federal rules restrict any use of the information to criminally investigate or prosecute any alcohol or drug abuse patient.[facility] Dayton[facility] the event this information is protected by the Federal Confidentiality of Alcohol and Drug Abuse Patient Records regulations: The Federal rules restrict any use of the information to criminally investigate or prosecute any alcohol or drug abuse patient.[facility] Dayton[facility] the event this information is protected by the Federal Confidentiality of Alcohol and Drug Abuse Patient Records regulations: The Federal rules restrict any use of the information to criminally investigate or prosecute any alcohol or drug abuse patient.[facility] Dayton[facility] the event this information is protected by the Federal Confidentiality of Alcohol and Drug Abuse Patient Records regulations: The Federal rules restrict any use of the information to criminally investigate or prosecute any alcohol or drug abuse patient.[facility] Dayton[facility] the event this information is protected by the Federal Confidentiality of Alcohol and Drug Abuse Patient Records regulations: The Federal rules restrict any use of the information to criminally investigate or prosecute any alcohol or drug abuse patient.[facility] Dayton[facility] the event this information is protected by the Federal Confidentiality of Alcohol and Drug Abuse Patient Records regulations: The Federal rules restrict any use of the information to criminally investigate or prosecute any alcohol or drug abuse patient.[facility] Dayton[facility] the event this information is protected by the Federal Confidentiality of Alcohol and Drug Abuse Patient Records regulations: The Federal rules restrict any use of the information to criminally investigate or prosecute any alcohol or drug abuse patient.[facility]In the event this information is protected by the Federal Confidentiality of Alcohol and Drug Abuse Patient Records regulations: The Federal rules restrict any use of the information to criminally investigate or prosecute any alcohol or drug abuse patient.[facility] DaytonIn the event this information is protected by the Federal Confidentiality of Alcohol and Drug Abuse Patient Records regulations: The Federal rules restrict any use of the information to criminally investigate or prosecute any alcohol or drug abuse patient.[facility] DaytonIn the event this information is protected by the Federal Confidentiality of Alcohol and Drug Abuse Patient Records regulations: The Federal rules restrict any use of the information to criminally investigate or prosecute any alcohol or drug abuse patient.[facility] DaytonIn the event this information is protected by the Federal Confidentiality of Alcohol and Drug Abuse Patient Records regulations: The Federal rules restrict any use of the information to criminally investigate or prosecute any alcohol or drug abuse patient.[facility] DaytonIn the event this information is protected by the Federal Confidentiality of Alcohol and Drug Abuse Patient Records regulations: The Federal rules restrict any use of the information to criminally investigate or prosecute any alcohol or drug abuse patient.[facility] DaytonIn the event this information is protected by the Federal Confidentiality of Alcohol and Drug Abuse Patient Records regulations: The Federal rules restrict any use of the information to criminally investigate or prosecute any alcohol or drug abuse patient.[facility] DaytonIn the event this information is protected by the Federal Confidentiality of Alcohol and Drug Abuse Patient Records regulations: The Federal rules restrict any use of the information to criminally investigate or prosecute any alcohol or drug abuse patient.[facility] DaytonIn the event this information is protected by the Federal Confidentiality of Alcohol and Drug Abuse Patient Records regulations: The Federal rules restrict any use of the information to criminally investigate or prosecute any alcohol or drug abuse patient.[facility] DaytonIn the event this information is protected by the Federal Confidentiality of Alcohol and Drug Abuse Patient Records regulations: The Federal rules restrict any use of the information to criminally investigate or prosecute any alcohol or drug abuse patient.[facility] DaytonIn the event this information is protected by the Federal Confidentiality of Alcohol and Drug Abuse Patient Records regulations: The Federal rules restrict any use of the information to criminally investigate or prosecute any alcohol or drug abuse patient.[facility] DaytonIn the event this information is protected by the Federal Confidentiality of Alcohol and Drug Abuse Patient Records regulations: The Federal rules restrict any use of the information to criminally investigate or prosecute any alcohol or drug abuse patient.[facility] DaytonIn the event this information is protected by the Federal Confidentiality of Alcohol and Drug Abuse Patient Records regulations: The Federal rules restrict any use of the information to criminally investigate or prosecute any alcohol or drug abuse patient.[facility] DaytonIn the event this information is protected by the Federal Confidentiality of Alcohol and Drug Abuse Patient Records regulations: The Federal rules restrict any use of the information to criminally investigate or prosecute any alcohol or drug abuse patient.[facility] DaytonIn the event this information is protected by the Federal Confidentiality of Alcohol and Drug Abuse Patient Records regulations: The Federal rules restrict any use of the information to criminally investigate or prosecute any alcohol or drug abuse patient.[facility] DaytonIn the event this information is protected by the Federal Confidentiality of Alcohol and Drug Abuse Patient Records regulations: The Federal rules restrict any use of the information to criminally investigate or prosecute any alcohol or drug abuse patient.[facility] DaytonIn the event this information is protected by the Federal Confidentiality of Alcohol and Drug Abuse Patient Records regulations: The Federal rules restrict any use of the information to criminally investigate or prosecute any alcohol or drug abuse patient.[facility] DaytonIn the event this information is protected by the Federal Confidentiality of Alcohol and Drug Abuse Patient Records regulations: The Federal rules restrict any use of the information to criminally investigate or prosecute any alcohol or drug abuse patient.[facility] DaytonIn the event this information is protected by the Federal Confidentiality of Alcohol and Drug Abuse Patient Records regulations: The Federal rules restrict any use of the information to criminally investigate or prosecute any alcohol or drug abuse patient.[facility] DaytonIn the event this information is protected by the Federal Confidentiality of Alcohol and Drug Abuse Patient Records regulations: The Federal rules restrict any use of the information to criminally investigate or prosecute any alcohol or drug abuse patient.[facility] DaytonIn the event this information is protected by the Federal Confidentiality of Alcohol and Drug Abuse Patient Records regulations: The Federal rules restrict any use of the information to criminally investigate or prosecute any alcohol or drug abuse patient.[facility] DaytonIn the event this information is protected by the Federal Confidentiality of Alcohol and Drug Abuse Patient Records regulations: The Federal rules restrict any use of the information to criminally investigate or prosecute any alcohol or drug abuse patient.[facility] DaytonIn the event this information is protected by the Federal Confidentiality of Alcohol and Drug Abuse Patient Records regulations: The Federal rules restrict any use of the information to criminally investigate or prosecute any alcohol or drug abuse patient.[facility] DaytonIn the event this information is protected by the Federal Confidentiality of Alcohol and Drug Abuse Patient Records regulations: The Federal rules restrict any use of the information to criminally investigate or prosecute any alcohol or drug abuse patient.[facility] DaytonIn the event this information is protected by the Federal Confidentiality of Alcohol and Drug Abuse Patient Records regulations: The Federal rules restrict any use of the information to criminally investigate or prosecute any alcohol or drug abuse patient.[facility] DaytonIn the event this information is protected by the Federal Confidentiality of Alcohol and Drug Abuse Patient Records regulations: The Federal rules restrict any use of the information to criminally investigate or prosecute any alcohol or drug abuse patient.[facility] DaytonIn the event this information is protected by the Federal Confidentiality of Alcohol and Drug Abuse Patient Records regulations: The Federal rules restrict any use of the information to criminally investigate or prosecute any alcohol or drug abuse patient.[facility] DaytonIn the event this information is protected by the Federal Confidentiality of Alcohol and Drug Abuse Patient Records regulations: The Federal rules restrict any use of the information to criminally investigate or prosecute any alcohol or drug abuse patient.[facility] DaytonIn the event this information is protected by the Federal Confidentiality of Alcohol and Drug Abuse Patient Records regulations: The Federal rules restrict any use of the information to criminally investigate or prosecute any alcohol or drug abuse patient.[facility] DaytonIn the event this information is protected by the Federal Confidentiality of Alcohol and Drug Abuse Patient Records regulations: The Federal rules restrict any use of the information to criminally investigate or prosecute any alcohol or drug abuse patient.[facility] DaytonIn the event this information is protected by the Federal Confidentiality of Alcohol and Drug Abuse Patient Records regulations: The Federal rules restrict any use of the information to criminally investigate or prosecute any alcohol or drug abuse patient.[facility] DaytonIn the event this information is protected by the Federal Confidentiality of Alcohol and Drug Abuse Patient Records regulations: The Federal rules restrict any use of the information to criminally investigate or prosecute any alcohol or drug abuse patient.[facility] DaytonIn the event this information is protected by the Federal Confidentiality of Alcohol and Drug Abuse Patient Records regulations: The Federal rules restrict any use of the information to criminally investigate or prosecute any alcohol or drug abuse patient.[facility] DaytonIn the event this information is protected by the Federal Confidentiality of Alcohol and Drug Abuse Patient Records regulations: The Federal rules restrict any use of the information to criminally investigate or prosecute any alcohol or drug abuse patient.[facility] DaytonIn the event this information is protected by the Federal Confidentiality of Alcohol and Drug Abuse Patient Records regulations: The Federal rules restrict any use of the information to criminally investigate or prosecute any alcohol or drug abuse patient.[facility] DaytonIn the event this information is protected by the Federal Confidentiality of Alcohol and Drug Abuse Patient Records regulations: The Federal rules restrict any use of the information to criminally investigate or prosecute any alcohol or drug abuse patient.[facility] DaytonIn the event this information is protected by the Federal Confidentiality of Alcohol and Drug Abuse Patient Records regulations: The Federal rules restrict any use of the information to criminally investigate or prosecute any alcohol or drug abuse patient.[facility] DaytonIn the event this information is protected by the Federal Confidentiality of Alcohol and Drug Abuse Patient Records regulations: The Federal rules restrict any use of the information to criminally investigate or prosecute any alcohol or drug abuse patient.[facility] DaytonIn the event this information is protected by the Federal Confidentiality of Alcohol and Drug Abuse Patient Records regulations: The Federal rules restrict any use of the information to criminally investigate or prosecute any alcohol or drug abuse patient.[facility] DaytonIn the event this information is protected by the Federal Confidentiality of Alcohol and Drug Abuse Patient Records regulations: The Federal rules restrict any use of the information to criminally investigate or prosecute any alcohol or drug abuse patient.[facility] DaytonIn the event this information is protected by the Federal Confidentiality of Alcohol and Drug Abuse Patient Records regulations: The Federal rules restrict any use of the information to criminally investigate or prosecute any alcohol or drug abuse patient.[facility] DaytonIn the event this information is protected by the Federal Confidentiality of Alcohol and Drug Abuse Patient Records regulations: The Federal rules restrict any use of the information to criminally investigate or prosecute any alcohol or drug abuse patient.[facility] DaytonIn the event this information is protected by the Federal Confidentiality of Alcohol and Drug Abuse Patient Records regulations: The Federal rules restrict any use of the information to criminally investigate or prosecute any alcohol or drug abuse patient.[facility] DaytonIn the event this information is protected by the Federal Confidentiality of Alcohol and Drug Abuse Patient Records regulations: The Federal rules restrict any use of the information to criminally investigate or prosecute any alcohol or drug abuse patient.[facility] DaytonIn the event this information is protected by the Federal Confidentiality of Alcohol and Drug Abuse Patient Records regulations: The Federal rules restrict any use of the information to criminally investigate or prosecute any alcohol or drug abuse patient.[facility] DaytonIn the event this information is protected by the Federal Confidentiality of Alcohol and Drug Abuse Patient Records regulations: The Federal rules restrict any use of the information to criminally investigate or prosecute any alcohol or drug abuse patient.[facility] DaytonIn the event this information is protected by the Federal Confidentiality of Alcohol and Drug Abuse Patient Records regulations: The Federal rules restrict any use of the information to criminally investigate or prosecute any alcohol or drug abuse patient.[facility] DaytonIn the event this information is protected by the Federal Confidentiality of Alcohol and Drug Abuse Patient Records regulations: The Federal rules restrict any use of the information to criminally investigate or prosecute any alcohol or drug abuse patient.[facility] DaytonIn the event this information is protected by the Federal Confidentiality of Alcohol and Drug Abuse Patient Records regulations: The Federal rules restrict any use of the information to criminally investigate or prosecute any alcohol or drug abuse patient.[facility] DaytonIn the event this information is protected by the Federal Confidentiality of Alcohol and Drug Abuse Patient Records regulations: The Federal rules restrict any use of the information to criminally investigate or prosecute any alcohol or drug abuse patient.[facility] DaytonIn the event this information is protected by the Federal Confidentiality of Alcohol and Drug Abuse Patient Records regulations: The Federal rules restrict any use of the information to criminally investigate or prosecute any alcohol or drug abuse patient.[facility] DaytonIn the event this information is protected by the Federal Confidentiality of Alcohol and Drug Abuse Patient Records regulations: The Federal rules restrict any use of the information to criminally investigate or prosecute any alcohol or drug abuse patient.[facility] DaytonIn the event this information is protected by the Federal Confidentiality of Alcohol and Drug Abuse Patient Records regulations: The Federal rules restrict any use of the information to criminally investigate or prosecute any alcohol or drug abuse patient.[facility] DaytonIn the event this information is protected by the Federal Confidentiality of Alcohol and Drug Abuse Patient Records regulations: The Federal rules restrict any use of the information to criminally investigate or prosecute any alcohol or drug abuse patient.[facility] DaytonIn the event this information is protected by the Federal Confidentiality of Alcohol and Drug Abuse Patient Records regulations: The Federal rules restrict any use of the information to criminally investigate or prosecute any alcohol or drug abuse patient.[facility] DaytonIn the event this information is protected by the Federal Confidentiality of Alcohol and Drug Abuse Patient Records regulations: The Federal rules restrict any use of the information to criminally investigate or prosecute any alcohol or drug abuse patient.[facility] DaytonIn the event this information is protected by the Federal Confidentiality of Alcohol and Drug Abuse Patient Records regulations: The Federal rules restrict any use of the information to criminally investigate or prosecute any alcohol or drug abuse patient.[facility] DaytonIn the event this information is protected by the Federal Confidentiality of Alcohol and Drug Abuse Patient Records regulations: The Federal rules restrict any use of the information to criminally investigate or prosecute any alcohol or drug abuse patient.[facility] DaytonIn the event this information is protected by the Federal Confidentiality of Alcohol and Drug Abuse Patient Records regulations: The Federal rules restrict any use of the information to criminally investigate or prosecute any alcohol or drug abuse patient.[facility] DaytonIn the event this information is protected by the Federal Confidentiality of Alcohol and Drug Abuse Patient Records regulations: The Federal rules restrict any use of the information to criminally investigate or prosecute any alcohol or drug abuse patient.[facility] DaytonIn the event this information is protected by the Federal Confidentiality of Alcohol and Drug Abuse Patient Records regulations: The Federal rules restrict any use of the information to criminally investigate or prosecute any alcohol or drug abuse patient.[facility] DaytonIn the event this information is protected by the Federal Confidentiality of Alcohol and Drug Abuse Patient Records regulations: The Federal rules restrict any use of the information to criminally investigate or prosecute any alcohol or drug abuse patient.[facility] DaytonIn the event this information is protected by the Federal Confidentiality of Alcohol and Drug Abuse Patient Records regulations: The Federal rules restrict any use of the information to criminally investigate or prosecute any alcohol or drug abuse patient.[facility] DaytonIn the event this information is protected by the Federal Confidentiality of Alcohol and Drug Abuse Patient Records regulations: The Federal rules restrict any use of the information to criminally investigate or prosecute any alcohol or drug abuse patient.[facility] DaytonIn the event this information is protected by the Federal Confidentiality of Alcohol and Drug Abuse Patient Records regulations: The Federal rules restrict any use of the information to criminally investigate or prosecute any alcohol or drug abuse patient.[facility] DaytonIn the event this information is protected by the Federal Confidentiality of Alcohol and Drug Abuse Patient Records regulations: The Federal rules restrict any use of the information to criminally investigate or prosecute any alcohol or drug abuse patient.[facility] DaytonIn the event this information is protected by the Federal Confidentiality of Alcohol and Drug Abuse Patient Records regulations: The Federal rules restrict any use of the information to criminally investigate or prosecute any alcohol or drug abuse patient.[facility] DaytonIn the event this information is protected by the Federal Confidentiality of Alcohol and Drug Abuse Patient Records regulations: The Federal rules restrict any use of the information to criminally investigate or prosecute any alcohol or drug abuse patient.[facility] DaytonIn the event this information is protected by the Federal Confidentiality of Alcohol and Drug Abuse Patient Records regulations: The Federal rules restrict any use of the information to criminally investigate or prosecute any alcohol or drug abuse patient.[facility] DaytonIn the event this information is protected by the Federal Confidentiality of Alcohol and Drug Abuse Patient Records regulations: The Federal rules restrict any use of the information to criminally investigate or prosecute any alcohol or drug abuse patient.[facility] DaytonIn the event this information is protected by the Federal Confidentiality of Alcohol and Drug Abuse Patient Records regulations: The Federal rules restrict any use of the information to criminally investigate or prosecute any alcohol or drug abuse patient.[facility] DaytonIn the event this information is protected by the Federal Confidentiality of Alcohol and Drug Abuse Patient Records regulations: The Federal rules restrict any use of the information to criminally investigate or prosecute any alcohol or drug abuse patient.[facility] DaytonIn the event this information is protected by the Federal Confidentiality of Alcohol and Drug Abuse Patient Records regulations: The Federal rules restrict any use of the information to criminally investigate or prosecute any alcohol or drug abuse patient.[facility] DaytonIn the event this information is protected by the Federal Confidentiality of Alcohol and Drug Abuse Patient Records regulations: The Federal rules restrict any use of the information to criminally investigate or prosecute any alcohol or drug abuse patient.[facility] DaytonIn the event this information is protected by the Federal Confidentiality of Alcohol and Drug Abuse Patient Records regulations: The Federal rules restrict any use of the information to criminally investigate or prosecute any alcohol or drug abuse patient.[facility] DaytonIn the event this information is protected by the Federal Confidentiality of Alcohol and Drug Abuse Patient Records regulations: The Federal rules restrict any use of the information to criminally investigate or prosecute any alcohol or drug abuse patient.[facility] DaytonIn the event this information is protected by the Federal Confidentiality of Alcohol and Drug Abuse Patient Records regulations: The Federal rules restrict any use of the information to criminally investigate or prosecute any alcohol or drug abuse patient.[facility] DaytonIn the event this information is protected by the Federal Confidentiality of Alcohol and Drug Abuse Patient Records regulations: The Federal rules restrict any use of the information to criminally investigate or prosecute any alcohol or drug abuse patient.[facility] DaytonIn the event this information is protected by the Federal Confidentiality of Alcohol and Drug Abuse Patient Records regulations: The Federal rules restrict any use of the information to criminally investigate or prosecute any alcohol or drug abuse patient.[facility] DaytonIn the event this information is protected by the Federal Confidentiality of Alcohol and Drug Abuse Patient Records regulations: The Federal rules restrict any use of the information to criminally investigate or prosecute any alcohol or drug abuse patient.[facility] DaytonIn the event this information is protected by the Federal Confidentiality of Alcohol and Drug Abuse Patient Records regulations: The Federal rules restrict any use of the information to criminally investigate or prosecute any alcohol or drug abuse patient.[facility] DaytonIn the event this information is protected by the Federal Confidentiality of Alcohol and Drug Abuse Patient Records regulations: The Federal rules restrict any use of the information to criminally investigate or prosecute any alcohol or drug abuse patient.[facility] DaytonIn the event this information is protected by the Federal Confidentiality of Alcohol and Drug Abuse Patient Records regulations: The Federal rules restrict any use of the information to criminally investigate or prosecute any alcohol or drug abuse patient.[facility] DaytonIn the event this information is protected by the Federal Confidentiality of Alcohol and Drug Abuse Patient Records regulations: The Federal rules restrict any use of the information to criminally investigate or prosecute any alcohol or drug abuse patient.[facility] DaytonIn the event this information is protected by the Federal Confidentiality of Alcohol and Drug Abuse Patient Records regulations: The Federal rules restrict any use of the information to criminally investigate or prosecute any alcohol or drug abuse patient.[facility] DaytonIn the event this information is protected by the Federal Confidentiality of Alcohol and Drug Abuse Patient Records regulations: The Federal rules restrict any use of the information to criminally investigate or prosecute any alcohol or drug abuse patient.[facility] DaytonIn the event this information is protected by the Federal Confidentiality of Alcohol and Drug Abuse Patient Records regulations: The Federal rules restrict any use of the information to criminally investigate or prosecute any alcohol or drug abuse patient.[facility]In the event this information is protected by the Federal Confidentiality of Alcohol and Drug Abuse Patient Records regulations: The Federal rules restrict any use of the information to criminally investigate or prosecute any alcohol or drug abuse patient.[facility] DaytonIn the event this information is protected by the Federal Confidentiality of Alcohol and Drug Abuse Patient Records regulations: The Federal rules restrict any use of the information to criminally investigate or prosecute any alcohol or drug abuse patient.[facility] DaytonIn the event this information is protected by the Federal Confidentiality of Alcohol and Drug Abuse Patient Records regulations: The Federal rules restrict any use of the information to criminally investigate or prosecute any alcohol or drug abuse patient.[facility] DaytonIn the event this information is protected by the Federal Confidentiality of Alcohol and Drug Abuse Patient Records regulations: The Federal rules restrict any use of the information to criminally investigate or prosecute any alcohol or drug abuse patient.[facility] DaytonIn the event this information is protected by the Federal Confidentiality of Alcohol and Drug Abuse Patient Records regulations: The Federal rules restrict any use of the information to criminally investigate or prosecute any alcohol or drug abuse patient.[facility] DaytonIn the event this information is protected by the Federal Confidentiality of Alcohol and Drug Abuse Patient Records regulations: The Federal rules restrict any use of the information to criminally investigate or prosecute any alcohol or drug abuse patient.[facility] DaytonIn the event this information is protected by the Federal Confidentiality of Alcohol and Drug Abuse Patient Records regulations: The Federal rules restrict any use of the information to criminally investigate or prosecute any alcohol or drug abuse patient.[facility] DaytonIn the event this information is protected by the Federal Confidentiality of Alcohol and Drug Abuse Patient Records regulations: The Federal rules restrict any use of the information to criminally investigate or prosecute any alcohol or drug abuse patient.[facility] DaytonIn the event this information is protected by the Federal Confidentiality of Alcohol and Drug Abuse Patient Records regulations: The Federal rules restrict any use of the information to criminally investigate or prosecute any alcohol or drug abuse patient.[facility] DaytonIn the event this information is protected by the Federal Confidentiality of Alcohol and Drug Abuse Patient Records regulations: The Federal rules restrict any use of the information to criminally investigate or prosecute any alcohol or drug abuse patient.[facility] DaytonIn the event this information is protected by the Federal Confidentiality of Alcohol and Drug Abuse Patient Records regulations: The Federal rules restrict any use of the information to criminally investigate or prosecute any alcohol or drug abuse patient.[facility] DaytonIn the event this information is protected by the Federal Confidentiality of Alcohol and Drug Abuse Patient Records regulations: The Federal rules restrict any use of the information to criminally investigate or prosecute any alcohol or drug abuse patient.[facility] DaytonIn the event this information is protected by the Federal Confidentiality of Alcohol and Drug Abuse Patient Records regulations: The Federal rules restrict any use of the information to criminally investigate or prosecute any alcohol or drug abuse patient.[facility] DaytonIn the event this information is protected by the Federal Confidentiality of Alcohol and Drug Abuse Patient Records regulations: The Federal rules restrict any use of the information to criminally investigate or prosecute any alcohol or drug abuse patient.[facility] DaytonIn the event this information is protected by the Federal Confidentiality of Alcohol and Drug Abuse Patient Records regulations: The Federal rules restrict any use of the information to criminally investigate or prosecute any alcohol or drug abuse patient.[facility] DaytonIn the event this information is protected by the Federal Confidentiality of Alcohol and Drug Abuse Patient Records regulations: The Federal rules restrict any use of the information to criminally investigate or prosecute any alcohol or drug abuse patient.[facility] DaytonIn the event this information is protected by the Federal Confidentiality of Alcohol and Drug Abuse Patient Records regulations: The Federal rules restrict any use of the information to criminally investigate or prosecute any alcohol or drug abuse patient.[facility] DaytonIn the event this information is protected by the Federal Confidentiality of Alcohol and Drug Abuse Patient Records regulations: The Federal rules restrict any use of the information to criminally investigate or prosecute any alcohol or drug abuse patient.[facility] DaytonIn the event this information is protected by the Federal Confidentiality of Alcohol and Drug Abuse Patient Records regulations: The Federal rules restrict any use of the information to criminally investigate or prosecute any alcohol or drug abuse patient.[facility] DaytonIn the event this information is protected by the Federal Confidentiality of Alcohol and Drug Abuse Patient Records regulations: The Federal rules restrict any use of the information to criminally investigate or prosecute any alcohol or drug abuse patient.[facility] DaytonIn the event this information is protected by the Federal Confidentiality of Alcohol and Drug Abuse Patient Records regulations: The Federal rules restrict any use of the information to criminally investigate or prosecute any alcohol or drug abuse patient.[facility] DaytonIn the event this information is protected by the Federal Confidentiality of Alcohol and Drug Abuse Patient Records regulations: The Federal rules restrict any use of the information to criminally investigate or prosecute any alcohol or drug abuse patient.[facility] DaytonIn the event this information is protected by the Federal Confidentiality of Alcohol and Drug Abuse Patient Records regulations: The Federal rules restrict any use of the information to criminally investigate or prosecute any alcohol or drug abuse patient.[facility] DaytonIn the event this information is protected by the Federal Confidentiality of Alcohol and Drug Abuse Patient Records regulations: The Federal rules restrict any use of the information to criminally investigate or prosecute any alcohol or drug abuse patient.[facility] DaytonIn the event this information is protected by the Federal Confidentiality of Alcohol and Drug Abuse Patient Records regulations: The Federal rules restrict any use of the information to criminally investigate or prosecute any alcohol or drug abuse patient.[facility] DaytonIn the event this information is protected by the Federal Confidentiality of Alcohol and Drug Abuse Patient Records regulations: The Federal rules restrict any use of the information to criminally investigate or prosecute any alcohol or drug abuse patient.[facility] DaytonIn the event this information is protected by the Federal Confidentiality of Alcohol and Drug Abuse Patient Records regulations: The Federal rules restrict any use of the information to criminally investigate or prosecute any alcohol or drug abuse patient.[facility] DaytonIn the event this information is protected by the Federal Confidentiality of Alcohol and Drug Abuse Patient Records regulations: The Federal rules restrict any use of the information to criminally investigate or prosecute any alcohol or drug abuse patient.[facility] DaytonIn the event this information is protected by the Federal Confidentiality of Alcohol and Drug Abuse Patient Records regulations: The Federal rules restrict any use of the information to criminally investigate or prosecute any alcohol or drug abuse patient.[facility] DaytonIn the event this information is protected by the Federal Confidentiality of Alcohol and Drug Abuse Patient Records regulations: The Federal rules restrict any use of the information to criminally investigate or prosecute any alcohol or drug abuse patient.[facility] DaytonIn the event this information is protected by the Federal Confidentiality of Alcohol and Drug Abuse Patient Records regulations: The Federal rules restrict any use of the information to criminally investigate or prosecute any alcohol or drug abuse patient.[facility] DaytonIn the event this information is protected by the Federal Confidentiality of Alcohol and Drug Abuse Patient Records regulations: The Federal rules restrict any use of the information to criminally investigate or prosecute any alcohol or drug abuse patient.[facility] DaytonIn the event this information is protected by the Federal Confidentiality of Alcohol and Drug Abuse Patient Records regulations: The Federal rules restrict any use of the information to criminally investigate or prosecute any alcohol or drug abuse patient.[facility] DaytonIn the event this information is protected by the Federal Confidentiality of Alcohol and Drug Abuse Patient Records regulations: The Federal rules restrict any use of the information to criminally investigate or prosecute any alcohol or drug abuse patient.[facility] DaytonIn the event this information is protected by the Federal Confidentiality of Alcohol and Drug Abuse Patient Records regulations: The Federal rules restrict any use of the information to criminally investigate or prosecute any alcohol or drug abuse patient.[facility] DaytonIn the event this information is protected by the Federal Confidentiality of Alcohol and Drug Abuse Patient Records regulations: The Federal rules restrict any use of the information to criminally investigate or prosecute any alcohol or drug abuse patient.[facility] DaytonIn the event this information is protected by the Federal Confidentiality of Alcohol and Drug Abuse Patient Records regulations: The Federal rules restrict any use of the information to criminally investigate or prosecute any alcohol or drug abuse patient.[facility] DaytonIn the event this information is protected by the Federal Confidentiality of Alcohol and Drug Abuse Patient Records regulations: The Federal rules restrict any use of the information to criminally investigate or prosecute any alcohol or drug abuse patient.[facility] DaytonIn the event this information is protected by the Federal Confidentiality of Alcohol and Drug Abuse Patient Records regulations: The Federal rules restrict any use of the information to criminally investigate or prosecute any alcohol or drug abuse patient.[facility] DaytonIn the event this information is protected by the Federal Confidentiality of Alcohol and Drug Abuse Patient Records regulations: The Federal rules restrict any use of the information to criminally investigate or prosecute any alcohol or drug abuse patient.[facility] DaytonIn the event this information is protected by the Federal Confidentiality of Alcohol and Drug Abuse Patient Records regulations: The Federal rules restrict any use of the information to criminally investigate or prosecute any alcohol or drug abuse patient.[facility] DaytonIn the event this information is protected by the Federal Confidentiality of Alcohol and Drug Abuse Patient Records regulations: The Federal rules restrict any use of the information to criminally investigate or prosecute any alcohol or drug abuse patient.[facility] DaytonIn the event this information is protected by the Federal Confidentiality of Alcohol and Drug Abuse Patient Records regulations: The Federal rules restrict any use of the information to criminally investigate or prosecute any alcohol or drug abuse patient.[facility] DaytonIn the event this information is protected by the Federal Confidentiality of Alcohol and Drug Abuse Patient Records regulations: The Federal rules restrict any use of the information to criminally investigate or prosecute any alcohol or drug abuse patient.[facility] DaytonIn the event this information is protected by the Federal Confidentiality of Alcohol and Drug Abuse Patient Records regulations: The Federal rules restrict any use of the information to criminally investigate or prosecute any alcohol or drug abuse patient.[facility] DaytonIn the event this information is protected by the Federal Confidentiality of Alcohol and Drug Abuse Patient Records regulations: The Federal rules restrict any use of the information to criminally investigate or prosecute any alcohol or drug abuse patient.[facility] DaytonIn the event this information is protected by the Federal Confidentiality of Alcohol and Drug Abuse Patient Records regulations: The Federal rules restrict any use of the information to criminally investigate or prosecute any alcohol or drug abuse patient.[facility] DaytonIn the event this information is protected by the Federal Confidentiality of Alcohol and Drug Abuse Patient Records regulations: The Federal rules restrict any use of the information to criminally investigate or prosecute any alcohol or drug abuse patient.[facility] DaytonIn the event this information is protected by the Federal Confidentiality of Alcohol and Drug Abuse Patient Records regulations: The Federal rules restrict any use of the information to criminally investigate or prosecute any alcohol or drug abuse patient.[facility] DaytonIn the event this information is protected by the Federal Confidentiality of Alcohol and Drug Abuse Patient Records regulations: The Federal rules restrict any use of the information to criminally investigate or prosecute any alcohol or drug abuse patient.[facility] DaytonIn the event this information is protected by the Federal Confidentiality of Alcohol and Drug Abuse Patient Records regulations: The Federal rules restrict any use of the information to criminally investigate or prosecute any alcohol or drug abuse patient.[facility] DaytonIn the event this information is protected by the Federal Confidentiality of Alcohol and Drug Abuse Patient Records regulations: The Federal rules restrict any use of the information to criminally investigate or prosecute any alcohol or drug abuse patient.[facility] DaytonIn the event this information is protected by the Federal Confidentiality of Alcohol and Drug Abuse Patient Records regulations: The Federal rules restrict any use of the information to criminally investigate or prosecute any alcohol or drug abuse patient.[facility] DaytonIn the event this information is protected by the Federal Confidentiality of Alcohol and Drug Abuse Patient Records regulations: The Federal rules restrict any use of the information to criminally investigate or prosecute any alcohol or drug abuse patient.[facility] DaytonIn the event this information is protected by the Federal Confidentiality of Alcohol and Drug Abuse Patient Records regulations: The Federal rules restrict any use of the information to criminally investigate or prosecute any alcohol or drug abuse patient.[facility] DaytonIn the event this information is protected by the Federal Confidentiality of Alcohol and Drug Abuse Patient Records regulations: The Federal rules restrict any use of the information to criminally investigate or prosecute any alcohol or drug abuse patient.[facility] DaytonIn the event this information is protected by the Federal Confidentiality of Alcohol and Drug Abuse Patient Records regulations: The Federal rules restrict any use of the information to criminally investigate or prosecute any alcohol or drug abuse patient.[facility] DaytonIn the event this information is protected by the Federal Confidentiality of Alcohol and Drug Abuse Patient Records regulations: The Federal rules restrict any use of the information to criminally investigate or prosecute any alcohol or drug abuse patient.[facility] DaytonIn the event this information is protected by the Federal Confidentiality of Alcohol and Drug Abuse Patient Records regulations: The Federal rules restrict any use of the information to criminally investigate or prosecute any alcohol or drug abuse patient.[facility] DaytonIn the event this information is protected by the Federal Confidentiality of Alcohol and Drug Abuse Patient Records regulations: The Federal rules restrict any use of the information to criminally investigate or prosecute any alcohol or drug abuse patient.[facility] DaytonIn the event this information is protected by the Federal Confidentiality of Alcohol and Drug Abuse Patient Records regulations: The Federal rules restrict any use of the information to criminally investigate or prosecute any alcohol or drug abuse patient.[facility] DaytonIn the event this information is protected by the Federal Confidentiality of Alcohol and Drug Abuse Patient Records regulations: The Federal rules restrict any use of the information to criminally investigate or prosecute any alcohol or drug abuse patient.[facility] DaytonIn the event this information is protected by the Federal Confidentiality of Alcohol and Drug Abuse Patient Records regulations: The Federal rules restrict any use of the information to criminally investigate or prosecute any alcohol or drug abuse patient.[facility] DaytonIn the event this information is protected by the Federal Confidentiality of Alcohol and Drug Abuse Patient Records regulations: The Federal rules restrict any use of the information to criminally investigate or prosecute any alcohol or drug abuse patient.[facility] DaytonIn the event this information is protected by the Federal Confidentiality of Alcohol and Drug Abuse Patient Records regulations: The Federal rules restrict any use of the information to criminally investigate or prosecute any alcohol or drug abuse patient.[facility] DaytonIn the event this information is protected by the Federal Confidentiality of Alcohol and Drug Abuse Patient Records regulations: The Federal rules restrict any use of the information to criminally investigate or prosecute any alcohol or drug abuse patient.[facility] DaytonIn the event this information is protected by the Federal Confidentiality of Alcohol and Drug Abuse Patient Records regulations: The Federal rules restrict any use of the information to criminally investigate or prosecute any alcohol or drug abuse patient.[facility] DaytonIn the event this information is protected by the Federal Confidentiality of Alcohol and Drug Abuse Patient Records regulations: The Federal rules restrict any use of the information to criminally investigate or prosecute any alcohol or drug abuse patient.[facility] DaytonIn the event this information is protected by the Federal Confidentiality of Alcohol and Drug Abuse Patient Records regulations: The Federal rules restrict any use of the information to criminally investigate or prosecute any alcohol or drug abuse patient.[facility] DaytonIn the event this information is protected by the Federal Confidentiality of Alcohol and Drug Abuse Patient Records regulations: The Federal rules restrict any use of the information to criminally investigate or prosecute any alcohol or drug abuse patient.[facility] DaytonIn the event this information is protected by the Federal Confidentiality of Alcohol and Drug Abuse Patient Records regulations: The Federal rules restrict any use of the information to criminally investigate or prosecute any alcohol or drug abuse patient.[facility] DaytonIn the event this information is protected by the Federal Confidentiality of Alcohol and Drug Abuse Patient Records regulations: The Federal rules restrict any use of the information to criminally investigate or prosecute any alcohol or drug abuse patient.[facility] DaytonIn the event this information is protected by the Federal Confidentiality of Alcohol and Drug Abuse Patient Records regulations: The Federal rules restrict any use of the information to criminally investigate or prosecute any alcohol or drug abuse patient.[facility] DaytonIn the event this information is protected by the Federal Confidentiality of Alcohol and Drug Abuse Patient Records regulations: The Federal rules restrict any use of the information to criminally investigate or prosecute any alcohol or drug abuse patient.[facility] DaytonIn the event this information is protected by the Federal Confidentiality of Alcohol and Drug Abuse Patient Records regulations: The Federal rules restrict any use of the information to criminally investigate or prosecute any alcohol or drug abuse patient.[facility] DaytonIn the event this information is protected by the Federal Confidentiality of Alcohol and Drug Abuse Patient Records regulations: The Federal rules restrict any use of the information to criminally investigate or prosecute any alcohol or drug abuse patient.[facility] DaytonIn the event this information is protected by the Federal Confidentiality of Alcohol and Drug Abuse Patient Records regulations: The Federal rules restrict any use of the information to criminally investigate or prosecute any alcohol or drug abuse patient.[facility] DaytonIn the event this information is protected by the Federal Confidentiality of Alcohol and Drug Abuse Patient Records regulations: The Federal rules restrict any use of the information to criminally investigate or prosecute any alcohol or drug abuse patient.[facility] DaytonIn the event this information is protected by the Federal Confidentiality of Alcohol and Drug Abuse Patient Records regulations: The Federal rules restrict any use of the information to criminally investigate or prosecute any alcohol or drug abuse patient.[facility] DaytonIn the event this information is protected by the Federal Confidentiality of Alcohol and Drug Abuse Patient Records regulations: The Federal rules restrict any use of the information to criminally investigate or prosecute any alcohol or drug abuse patient.[facility] DaytonIn the event this information is protected by the Federal Confidentiality of Alcohol and Drug Abuse Patient Records regulations: The Federal rules restrict any use of the information to criminally investigate or prosecute any alcohol or drug abuse patient.[facility] DaytonIn the event this information is protected by the Federal Confidentiality of Alcohol and Drug Abuse Patient Records regulations: The Federal rules restrict any use of the information to criminally investigate or prosecute any alcohol or drug abuse patient.[facility] DaytonIn the event this information is protected by the Federal Confidentiality of Alcohol and Drug Abuse Patient Records regulations: The Federal rules restrict any use of the information to criminally investigate or prosecute any alcohol or drug abuse patient.[facility] DaytonIn the event this information is protected by the Federal Confidentiality of Alcohol and Drug Abuse Patient Records regulations: The Federal rules restrict any use of the information to criminally investigate or prosecute any alcohol or drug abuse patient.[facility] DaytonIn the event this information is protected by the Federal Confidentiality of Alcohol and Drug Abuse Patient Records regulations: The Federal rules restrict any use of the information to criminally investigate or prosecute any alcohol or drug abuse patient.[facility] DaytonIn the event this information is protected by the Federal Confidentiality of Alcohol and Drug Abuse Patient Records regulations: The Federal rules restrict any use of the information to criminally investigate or prosecute any alcohol or drug abuse patient.[facility] DaytonIn the event this information is protected by the Federal Confidentiality of Alcohol and Drug Abuse Patient Records regulations: The Federal rules restrict any use of the information to criminally investigate or prosecute any alcohol or drug abuse patient.[facility] DaytonIn the event this information is protected by the Federal Confidentiality of Alcohol and Drug Abuse Patient Records regulations: The Federal rules restrict any use of the information to criminally investigate or prosecute any alcohol or drug abuse patient.[facility] DaytonIn the event this information is protected by the Federal Confidentiality of Alcohol and Drug Abuse Patient Records regulations: The Federal rules restrict any use of the information to criminally investigate or prosecute any alcohol or drug abuse patient.[facility] DaytonIn the event this information is protected by the Federal Confidentiality of Alcohol and Drug Abuse Patient Records regulations: The Federal rules restrict any use of the information to criminally investigate or prosecute any alcohol or drug abuse patient.[facility] DaytonIn the event this information is protected by the Federal Confidentiality of Alcohol and Drug Abuse Patient Records regulations: The Federal rules restrict any use of the information to criminally investigate or prosecute any alcohol or drug abuse patient.[facility] DaytonIn the event this information is protected by the Federal Confidentiality of Alcohol and Drug Abuse Patient Records regulations: The Federal rules restrict any use of the information to criminally investigate or prosecute any alcohol or drug abuse patient.[facility] DaytonIn the event this information is protected by the Federal Confidentiality of Alcohol and Drug Abuse Patient Records regulations: The Federal rules restrict any use of the information to criminally investigate or prosecute any alcohol or drug abuse patient.[facility] DaytonIn the event this information is protected by the Federal Confidentiality of Alcohol and Drug Abuse Patient Records regulations: The Federal rules restrict any use of the information to criminally investigate or prosecute any alcohol or drug abuse patient.[facility] DaytonIn the event this information is protected by the Federal Confidentiality of Alcohol and Drug Abuse Patient Records regulations: The Federal rules restrict any use of the information to criminally investigate or prosecute any alcohol or drug abuse patient.[facility] DaytonIn the event this information is protected by the Federal Confidentiality of Alcohol and Drug Abuse Patient Records regulations: The Federal rules restrict any use of the information to criminally investigate or prosecute any alcohol or drug abuse patient.[facility] DaytonIn the event this information is protected by the Federal Confidentiality of Alcohol and Drug Abuse Patient Records regulations: The Federal rules restrict any use of the information to criminally investigate or prosecute any alcohol or drug abuse patient.[facility] DaytonIn the event this information is protected by the Federal Confidentiality of Alcohol and Drug Abuse Patient Records regulations: The Federal rules restrict any use of the information to criminally investigate or prosecute any alcohol or drug abuse patient.[facility] DaytonIn the event this information is protected by the Federal Confidentiality of Alcohol and Drug Abuse Patient Records regulations: The Federal rules restrict any use of the information to criminally investigate or prosecute any alcohol or drug abuse patient.[facility] DaytonIn the event this information is protected by the Federal Confidentiality of Alcohol and Drug Abuse Patient Records regulations: The Federal rules restrict any use of the information to criminally investigate or prosecute any alcohol or drug abuse patient.[facility] DaytonIn the event this information is protected by the Federal Confidentiality of Alcohol and Drug Abuse Patient Records regulations: The Federal rules restrict any use of the information to criminally investigate or prosecute any alcohol or drug abuse patient.[facility] DaytonIn the event this information is protected by the Federal Confidentiality of Alcohol and Drug Abuse Patient Records regulations: The Federal rules restrict any use of the information to criminally investigate or prosecute any alcohol or drug abuse patient.[facility] DaytonIn the event this information is protected by the Federal Confidentiality of Alcohol and Drug Abuse Patient Records regulations: The Federal rules restrict any use of the information to criminally investigate or prosecute any alcohol or drug abuse patient.[facility] DaytonIn the event this information is protected by the Federal Confidentiality of Alcohol and Drug Abuse Patient Records regulations: The Federal rules restrict any use of the information to criminally investigate or prosecute any alcohol or drug abuse patient.[facility] DaytonIn the event this information is protected by the Federal Confidentiality of Alcohol and Drug Abuse Patient Records regulations: The Federal rules restrict any use of the information to criminally investigate or prosecute any alcohol or drug abuse patient.[facility] DaytonIn the event this information is protected by the Federal Confidentiality of Alcohol and Drug Abuse Patient Records regulations: The Federal rules restrict any use of the information to criminally investigate or prosecute any alcohol or drug abuse patient.[facility] DaytonIn the event this information is protected by the Federal Confidentiality of Alcohol and Drug Abuse Patient Records regulations: The Federal rules restrict any use of the information to criminally investigate or prosecute any alcohol or drug abuse patient.[facility] DaytonIn the event this information is protected by the Federal Confidentiality of Alcohol and Drug Abuse Patient Records regulations: The Federal rules restrict any use of the information to criminally investigate or prosecute any alcohol or drug abuse patient.[facility] DaytonIn the event this information is protected by the Federal Confidentiality of Alcohol and Drug Abuse Patient Records regulations: The Federal rules restrict any use of the information to criminally investigate or prosecute any alcohol or drug abuse patient.[facility] DaytonIn the event this information is protected by the Federal Confidentiality of Alcohol and Drug Abuse Patient Records regulations: The Federal rules restrict any use of the information to criminally investigate or prosecute any alcohol or drug abuse patient.[facility] DaytonIn the event this information is protected by the Federal Confidentiality of Alcohol and Drug Abuse Patient Records regulations: The Federal rules restrict any use of the information to criminally investigate or prosecute any alcohol or drug abuse patient.[facility] DaytonIn the event this information is protected by the Federal Confidentiality of Alcohol and Drug Abuse Patient Records regulations: The Federal rules restrict any use of the information to criminally investigate or prosecute any alcohol or drug abuse patient.[facility] DaytonIn the event this information is protected by the Federal Confidentiality of Alcohol and Drug Abuse Patient Records regulations: The Federal rules restrict any use of the information to criminally investigate or prosecute any alcohol or drug abuse patient.[facility] DaytonIn the event this information is protected by the Federal Confidentiality of Alcohol and Drug Abuse Patient Records regulations: The Federal rules restrict any use of the information to criminally investigate or prosecute any alcohol or drug abuse patient.[facility] DaytonIn the event this information is protected by the Federal Confidentiality of Alcohol and Drug Abuse Patient Records regulations: The Federal rules restrict any use of the information to criminally investigate or prosecute any alcohol or drug abuse patient.[facility] DaytonIn the event this information is protected by the Federal Confidentiality of Alcohol and Drug Abuse Patient Records regulations: The Federal rules restrict any use of the information to criminally investigate or prosecute any alcohol or drug abuse patient.[facility] DaytonIn the event this information is protected by the Federal Confidentiality of Alcohol and Drug Abuse Patient Records regulations: The Federal rules restrict any use of the information to criminally investigate or prosecute any alcohol or drug abuse patient.[facility] DaytonIn the event this information is protected by the Federal Confidentiality of Alcohol and Drug Abuse Patient Records regulations: The Federal rules restrict any use of the information to criminally investigate or prosecute any alcohol or drug abuse patient.[facility] DaytonIn the event this information is protected by the Federal Confidentiality of Alcohol and Drug Abuse Patient Records regulations: The Federal rules restrict any use of the information to criminally investigate or prosecute any alcohol or drug abuse patient.[facility] DaytonIn the event this information is protected by the Federal Confidentiality of Alcohol and Drug Abuse Patient Records regulations: The Federal rules restrict any use of the information to criminally investigate or prosecute any alcohol or drug abuse patient.[facility] DaytonIn the event this information is protected by the Federal Confidentiality of Alcohol and Drug Abuse Patient Records regulations: The Federal rules restrict any use of the information to criminally investigate or prosecute any alcohol or drug abuse patient.[facility] DaytonIn the event this information is protected by the Federal Confidentiality of Alcohol and Drug Abuse Patient Records regulations: The Federal rules restrict any use of the information to criminally investigate or prosecute any alcohol or drug abuse patient.[facility] DaytonIn the event this information is protected by the Federal Confidentiality of Alcohol and Drug Abuse Patient Records regulations: The Federal rules restrict any use of the information to criminally investigate or prosecute any alcohol or drug abuse patient.[facility] DaytonIn the event this information is protected by the Federal Confidentiality of Alcohol and Drug Abuse Patient Records regulations: The Federal rules restrict any use of the information to criminally investigate or prosecute any alcohol or drug abuse patient.[facility] Care Teams (unrecognized sec tion and content) Binder Cutter Hand Relationship Specialty Start Date End Date Fiona Durant MD [address] [place] [address] PCP - General 11/23/03 Rell Barcenas MD, [address] [place] [facility] [address] Physician Radiation Oncology 08/27/20 Christina Amaro RN [address] [place] [facility] [place] [address] Quality Control Clerk Hematology/Oncology 09/13/20 Mckenzie Jones RN Specialty Health Coach Oncology 09/21/20 Binder Cutter Hand Relationship Specialty Start Date End Date Fiona Durant MD [address] [place] [address] PCP - General 11/23/03 Rell Barcenas MD, [address] [place] [facility] [place] [address] Physician Radiation Oncology 08/27/20 Christina Amaro RN [address] [place] [facility] [place] [address] Quality Control Clerk Hematology/Oncology 09/13/20 Mckenzie Jones RN Specialty Health Coach Oncology 09/21/20 Binder Cutter Hand Relationship Specialty Start Date End Date Fiona Durant MD [address] [place] [address] PCP - General 11/23/03 Rell Barcenas MD, [address] [place] [facility] [place] [address] Physician Radiation Oncology 08/27/20 Christina Amaro, RN [address] [place] [address] Quality Control Clerk Hematology/Oncology 09/13/20 Mckenzie Jones RN Specialty Health Coach Oncology 09/21/20 Binder Cutter Hand Relationship Specialty Start Date End Date Fiona Durant MD [address] [place] [address] PCP - General 11/23/03 Rell Barcenas MD, [address] [facility] [place] [address] Physician Radiation Oncology 08/27/20 Christina Amaro, LILI [address] [place] [address] Quality Control Clerk Hematology/Oncology 09/13/20 Mckenzie Jones RN Specialty Health Coach Oncology 09/21/20 Binder Cutter Hand Relationship Specialty Start Date End Date Fiona Durant MD [address] [place] [address] PCP - General 11/23/03 Rell Barcenas MD, [address] [place] [address] Physician Radiation Oncology 08/27/20 Christina Amaro, LILI [address] [facility] [place] [address] Quality Control Clerk Hematology/Oncology 09/13/20 Mckenzie Jones RN Specialty Health Coach Oncology 09/21/20 Binder Cutter Hand Relationship Specialty Start Date End Date Fiona Durant MD [address] [place] [address] PCP - General 11/23/03 Rell Barcenas MD, [address] [place] [address] Physician Radiation Oncology 08/27/20 Christina Amaro, RN [address] [address] Quality Control Clerk Hematology/Oncology 09/13/20 Mckenzie Jones RN Specialty Health Coach Oncology 09/21/20 Binder Cutter Hand Relationship Specialty Start Date End Date Fiona Durant MD [address] [place] [address] PCP - General 11/23/03 Rell Barcenas MD, [address] [facility] [place] [address] Physician Radiation Oncology 08/27/20 Christina Amaro RN [address] [place] [address] Quality Control Clerk Hematology/Oncology 09/13/20 Mckenzie Jones RN Specialty Health Coach Oncology 09/21/20 Binder Cutter Hand Relationship Specialty Start Date End Date Fiona Durant MD [address] [place] [address] PCP - General 11/23/03 Rell Barcenas MD, [address] [place] [address] Physician Radiation Oncology 08/27/20 Christina Amaro, LILI [address] [address] Quality Control Clerk Hematology/Oncology 09/13/20 Mckenzie Jones RN Specialty Health Coach Oncology 09/21/20 Binder Cutter Hand Relationship Specialty Start Date End Date Fiona Durant MD [address] [place] [address] PCP - General 11/23/03 Rell Barcenas MD, [address] [place] [address] Physician Radiation Oncology 08/27/20 Christina Amaro, LILI [address] [place] [address] Quality Control Clerk Hematology/Oncology 09/13/20 Mckenzie Jones RN Specialty Health Coach Oncology 09/21/20 Binder Cutter Hand Relationship Specialty Start Date End Date Fiona Durant MD [address] [place] [address] PCP - General 11/23/03 Rell Barcenas MD, [address] [place] [address] Physician Radiation Oncology 08/27/20 Christina Amaro, LILI [address] [place] [address] Specialty Health Coach Hematology/Oncology 09/13/20 Binder Cutter Hand Relationship Specialty Start Date End Date Fiona Durant MD [address] [place] [address] PCP - General 11/23/03 Rell Barcenas MD, [address] [place] [address] Physician Radiation Oncology 08/27/20 Christina Amaro, LILI [address] [place] [address] Specialty Health Coach Hematology/Oncology 09/13/20 Binder Cutter Hand Relationship Specialty Start Date End Date Fiona Durant MD [address] [place] [address] PCP - General 11/23/03 Rell Barcenas MD, [address] [place] [address] Physician Radiation Oncology 08/27/20 Christina Amaro, RN [address] [place] [address] Specialty Health Coach Hematology/Oncology 09/13/20 Binder Cutter Hand Relationship Specialty Start Date End Date Fiona Durant MD [address] [place] [address] PCP - General 11/23/03 Rell Barcenas MD, [address] [place] [address] Physician Radiation Oncology 08/27/20 Christina Amaro, LILI [address] [place] [address] Specialty Health Coach Hematology/Oncology 09/13/20 Mckenzie Jones RN Specialty Health Coach Oncology 09/21/20 02/13/22 Binder Cutter Hand Relationship Specialty Start Date End Date Fiona Durant MD [address] [place] [address] PCP - General 11/23/03 Rell Barcenas MD, [address] [place] [address] Physician Radiation Oncology 08/27/20 Christina Amaro, RN [address] [place] [address] Specialty Health Coach Hematology/Oncology 09/13/20 Binder Cutter Hand Relationship Specialty Start Date End Date Fiona Durant MD [address] [place] [address] PCP - General 11/23/03 Rell Barcenas MD, [address] [place] [address] Physician Radiation Oncology 08/27/20 Christina Amaro, RN [address] [place] [address] Specialty Health Coach Hematology/Oncology 09/13/20 Binder Cutter Hand Relationship Specialty Start Date End Date Fiona Durant MD [address] [place] [address] PCP - General 11/23/03 Rell Barcenas MD, [address] [place] [address] Physician Radiation Oncology 08/27/20 Christina Amaro RN [address] [place] [address] Specialty Health Coach Hematology/Oncology 09/13/20 Binder Cutter Hand Relationship Specialty Start Date End Date Fiona Durant MD [address] [place] [address] PCP - General 11/23/03 Rell Barcenas MD, [address] [place] [address] Physician Radiation Oncology 08/27/20 Christina Amaro, LILI [address] [place] [address] Specialty Health Coach Hematology/Oncology 09/13/20 Binder Cutter Hand Relationship Specialty Start Date End Date Fiona Durant MD [address] [place] [address] PCP - General 11/23/03 Rell Barcenas MD, [address] [place] [address] Physician Radiation Oncology 08/27/20 Christina Amaro, LILI [address] [place] [address] Specialty Health Coach Hematology/Oncology 09/13/20 Mckenzie Jones RN Specialty Health Coach Oncology 09/21/20 02/13/22 Binder Cutter Hand Relationship Specialty Start Date End Date Fiona Durant MD [address] [place] [address] PCP - General 11/23/03 Rell Barcenas MD, [address] [place] [address] Physician Radiation Oncology 08/27/20 Christina Amaro RN [address] [place] [address] Specialty Health Coach Hematology/Oncology 09/13/20 Binder Cutter Hand Relationship Specialty Start Date End Date Fiona Durant MD [address] [place] [address] PCP - General 11/23/03 Rell Barcenas MD, [address] [place] [address] Physician Radiation Oncology 08/27/20 Christina Amaro, LILI [address] [place] [address] Specialty Health Coach Hematology/Oncology 09/13/20 Binder Cutter Hand Relationship Specialty Start Date End Date Fiona Durant MD [address] [place] [address] PCP - General 11/23/03 Rell Barcenas MD, [address] [place] [address] Physician Radiation Oncology 08/27/20 Christina Amaro, LILI [address] [place] [address] Specialty Health Coach Hematology/Oncology 09/13/20 Binder Cutter Hand Relationship Specialty Start Date End Date Fiona Durant MD [address] [place] [address] PCP - General 11/23/03 Rell Barcenas MD, [address] [place] [address] Physician Radiation Oncology 08/27/20 Christina Amaro, LILI [address] [place] [address] Specialty Health Coach Hematology/Oncology 09/13/20 Binder Cutter Hand Relationship Specialty Start Date End Date Fiona Durant MD [address] [place] [address] PCP - General 11/23/03 Rell Barcenas MD, [address] [place] [address] Physician Radiation Oncology 08/27/20 Christina Amaro, LILI [address] [place] [address] Specialty Health Coach Hematology/Oncology 09/13/20 Binder Cutter Hand Relationship Specialty Start Date End Date Fiona Durant MD [address] [place] [address] PCP - General 11/23/03 Rell Barcenas MD, [address] [facility] [place] [address] Physician Radiation Oncology 08/27/20 Christina Amaro RN [address] [place] [address] Specialty Health Coach Hematology/Oncology 09/13/20 Anca Huddleston MD [address] [place] [address] Hematology/Oncology 05/09/22 Binder Cutter Hand Relationship Specialty Start Date End Date Fiona Durant MD [address] [place] [address] PCP - General 11/23/03 Rell Barcenas MD, [address] [place] [address] Physician Radiation Oncology 08/27/20 Christina Amaro RN [address] [place] [address] Specialty Health Coach Hematology/Oncology 09/13/20 Anca Huddleston MD [address] [place] [address] Hematology/Oncology 05/09/22 Binder Cutter Hand Relationship Specialty Start Date End Date Fiona Durant MD [address] [place] [address] PCP - General 11/23/03 Rell Barcenas MD, [address] [place] [address] Physician Radiation Oncology 08/27/20 Christina Amaro, LILI [address] [place] [address] Specialty Health Coach Hematology/Oncology 09/13/20 Anca Huddleston MD [address] [place] [address] Hematology/Oncology 05/09/22 Binder Cutter Hand Relationship Specialty Start Date End Date Fiona Durant MD [address] [place] [address] PCP - General 11/23/03 Rell Barcenas MD, [address] [place] [address] Physician Radiation Oncology 08/27/20 Christina Amaro, LILI [address] [place] [address] Specialty Health Coach Hematology/Oncology 09/13/20 Anca Huddleston MD [address] [place] [address] Hematology/Oncology 05/09/22 Binder Cutter Hand Relationship Specialty Start Date End Date Fiona Durant MD [address] [place] [address] PCP - General 11/23/03 Rell Barcenas MD, [address] [place] [address] Physician Radiation Oncology 08/27/20 Christina Amaro, LILI [address] [place] [address] Specialty Health Coach Hematology/Oncology 09/13/20 Anca Huddleston MD [address] [place] [address] Hematology/Oncology 05/09/22 Binder Cutter Hand Relationship Specialty Start Date End Date Fiona Durant MD [address] [place] [address] PCP - General 11/23/03 Rell Barcenas MD, [address] [place] [address] Physician Radiation Oncology 08/27/20 Christina Amaro, LILI [address] [place] [address] Specialty Health Coach Hematology/Oncology 09/13/20 Anca Huddleston MD [address] [place] [address] Hematology/Oncology 05/09/22 Binder Cutter Hand Relationship Specialty Start Date End Date Fiona Durant MD [address] [place] [address] PCP - General 11/23/03 Rell Barcenas MD, [address] [place] [address] Physician Radiation Oncology 08/27/20 Christina Amaro RN [address] [place] [address] Specialty Health Coach Hematology/Oncology 09/13/20 Anca Huddleston MD [address] [place] [address] Hematology/Oncology 05/09/22 Binder Cutter Hand Relationship Specialty Start Date End Date Fiona Durant MD [address] [place] [address] PCP - General 11/23/03 Rell Barcenas MD, [address] [place] [address] Physician Radiation Oncology 08/27/20 Christina Amaro RN [address] [place] [address] Specialty Health Coach Hematology/Oncology 09/13/20 Anca Huddleston MD [address] [place] [address] Hematology/Oncology 05/09/22 Binder Cutter Hand Relationship Specialty Start Date End Date Fiona Durant MD [address] [place] [address] PCP - General 11/23/03 Rell Barcenas MD, [address] [place] [address] Physician Radiation Oncology 08/27/20 Christina Amaro, RN [address] [place] [address] Specialty Health Coach Hematology/Oncology 09/13/20 Anca Huddleston MD [address] [place] [address] Hematology/Oncology 05/09/22 Binder Cutter Hand Relationship Specialty Start Date End Date Fiona Durant MD [address] [place] [address] PCP - General 11/23/03 Rell Barcenas MD, [address] [place] [address] Physician Radiation Oncology 08/27/20 Christina Amaro, RN [address] [place] [address] Specialty Health Coach Hematology/Oncology 09/13/20 Anca Huddleston MD [address] [place] [address] Hematology/Oncology 05/09/22 Binder Cutter Hand Relationship Specialty Start Date End Date Fiona Durant MD [address] [place] [address] PCP - General 11/23/03 Rell Barcenas MD, [address] [place] [address] Physician Radiation Oncology 08/27/20 Christina Amaro, LILI [address] [place] [address] Specialty Health Coach Hematology/Oncology 09/13/20 Anca Huddleston MD [address] [place] [address] Hematology/Oncology 05/09/22 Binder Cutter Hand Relationship Specialty Start Date End Date Fiona Durant MD [address] [place] [address] PCP - General 11/23/03 Rell Barcenas MD, [address] [place] [address] Physician Radiation Oncology 08/27/20 Christina Amaro, LILI [address] [place] [address] Specialty Health Coach Hematology/Oncology 09/13/20 Binder Cutter Hand Relationship Specialty Start Date End Date Fiona Durant MD [address] [place] [address] PCP - General 11/23/03 Rell Barcenas MD, [address] [place] [address] Physician Radiation Oncology 08/27/20 Christina Amaro, LILI [address] [place] [address] Specialty Health Coach Hematology/Oncology 09/13/20 Anca Huddleston MD [address] [place] [address] Hematology/Oncology 05/09/22 Binder Cutter Hand Relationship Specialty Start Date End Date Fiona Durant MD [address] [place] [address] PCP - General 11/23/03 Rell Barcenas MD, [address] [place] [address] Physician Radiation Oncology 08/27/20 Christina Amaro, LILI [address] [place] [address] Specialty Health Coach Hematology/Oncology 09/13/20 Anca Huddleston MD [address] [place] [address] Hematology/Oncology 05/09/22 Binder Cutter Hand Relationship Specialty Start Date End Date Fiona Durant MD [address] [place] [address] PCP - General 11/23/03 Rell Barcenas MD, [address] [place] [address] Physician Radiation Oncology 08/27/20 Christina Amaro, LILI [address] [place] [address] Specialty Health Coach Hematology/Oncology 09/13/20 Anca Huddleston MD [address] [place] [address] Hematology/Oncology 05/09/22 Binder Cutter Hand Relationship Specialty Start Date End Date Fiona Durant MD [address] [place] [address] PCP - General 11/23/03 Rell Barcenas MD, [address] [place] [address] Physician Radiation Oncology 08/27/20 Christina Amaro, LILI [address] [place] [address] Specialty Health Coach Hematology/Oncology 09/13/20 Anca Huddleston MD [address] [place] [address] Hematology/Oncology 05/09/22 Binder Cutter Hand Relationship Specialty Start Date End Date Fiona Durant MD [address] [place] [address] PCP - General 11/23/03 Rell Barcenas MD, [address] [place] [address] Physician Radiation Oncology 08/27/20 Christina Amaro, LILI [address] [place] [address] Specialty Health Coach Hematology/Oncology 09/13/20 Anca Huddleston MD [address] [place] [address] Hematology/Oncology 05/09/22 Binder Cutter Hand Relationship Specialty Start Date End Date Fiona Durant MD [address] [place] [address] PCP - General 11/23/03 Rell Barcenas MD, [address] [place] [address] Physician Radiation Oncology 08/27/20 Christina Amaro RN [address] [place] [address] Specialty Health Coach Hematology/Oncology 09/13/20 Anca Huddleston MD [address] [place] [address] Hematology/Oncology 05/09/22 Binder Cutter Hand Relationship Specialty Start Date End Date Fiona Durant MD [address] [place] [address] PCP - General 11/23/03 Rell Barcenas MD, [address] [place] [address] Physician Radiation Oncology 08/27/20 Christina Amaro RN [address] [place] [address] Specialty Health Coach Hematology/Oncology 09/13/20 Anca Huddleston MD [address] [place] [address] Hematology/Oncology 05/09/22 Binder Cutter Hand Relationship Specialty Start Date End Date Fiona Durant MD [address] [place] [address] PCP - General 11/23/03 Rell Barcenas MD, [address] [place] [address] Physician Radiation Oncology 08/27/20 Christina Amaro RN [address] [place] [address] Specialty Health Coach Hematology/Oncology 09/13/20 Anca Huddleston MD [address] [place] [address] Hematology/Oncology 05/09/22 Binder Cutter Hand Relationship Specialty Start Date End Date Fiona Durant MD [address] [place] [address] PCP - General 11/23/03 Rell Barcenas MD, [address] [place] [address] Physician Radiation Oncology 08/27/20 Christina Amaro, LILI [address] [place] [address] Specialty Health Coach Hematology/Oncology 09/13/20 Anca Huddleston MD [address] [place] [address] Hematology/Oncology 05/09/22 Binder Cutter Hand Relationship Specialty Start Date End Date Fiona Durant MD [address] [place] [address] PCP - General 11/23/03 Rell Barcenas MD, [address] [place] [address] Physician Radiation Oncology 08/27/20 Christina Amaro, LILI [address] [place] [address] Specialty Health Coach Hematology/Oncology 09/13/20 Anca Huddleston MD [address] [place] [address] Hematology/Oncology 05/09/22 Binder Cutter Hand Relationship Specialty Start Date End Date Fiona Durant MD [address] [place] [address] PCP - General 11/23/03 Rell Barcenas MD, [address] [place] [address] Physician Radiation Oncology 08/27/20 Christina Amaro, LILI [address] [place] [address] Specialty Health Coach Hematology/Oncology 09/13/20 Anca Huddleston MD [address] [place] [address] Hematology/Oncology 05/09/22 Binder Cutter Hand Relationship Specialty Start Date End Date Fiona Durant MD [address] [place] [address] PCP - General 11/23/03 Rell Barcenas MD, [address] [place] [address] Physician Radiation Oncology 08/27/20 Christina Amaro RN [address] [place] [address] Specialty Health Coach Hematology/Oncology 09/13/20 Anca Huddleston MD [address] [place] [address] Hematology/Oncology 05/09/22 Binder Cutter Hand Relationship Specialty Start Date End Date Fiona Durant MD [address] [place] [address] PCP - General 11/23/03 Rell Barcenas MD, [address] [place] [address] Physician Radiation Oncology 08/27/20 Christina Amaro RN [address] [place] [address] Specialty Health Coach Hematology/Oncology 09/13/20 Anca Huddleston MD [address] [place] [address] Hematology/Oncology 05/09/22 Binder Cutter Hand Relationship Specialty Start Date End Date Fiona Durant MD [address] [place] [address] PCP - General 11/23/03 Rell Barcenas MD, [address] [place] [address] Physician Radiation Oncology 08/27/20 Christina Amaro, LILI [address] [place] [address] Specialty Health Coach Hematology/Oncology 09/13/20 Anca Huddleston MD [address] [place] [address] Hematology/Oncology 05/09/22 Binder Cutter Hand Relationship Specialty Start Date End Date Fiona Durant MD [address] [place] [address] PCP - General 11/23/03 Rell Barcenas MD, [address] [place] [address] Physician Radiation Oncology 08/27/20 Christina Amaro, LILI [address] [place] [address] Specialty Health Coach Hematology/Oncology 09/13/20 Anca Huddleston MD [address] [place] [address] Hematology/Oncology 05/09/22 Binder Cutter Hand Relationship Specialty Start Date End Date Fiona Durant MD [address] [place] [address] PCP - General 11/23/03 Rell Barcenas MD, [address] [place] [address] Physician Radiation Oncology 08/27/20 Christina Amaro RN [address] [place] [address] Specialty Health Coach Hematology/Oncology 09/13/20 Anca Huddleston MD [address] [place] [address] Hematology/Oncology 05/09/22 Binder Cutter Hand Relationship Specialty Start Date End Date Fiona Durant MD [address] [place] [address] PCP - General 11/23/03 Rell Barcenas MD, [address] [place] [address] Physician Radiation Oncology 08/27/20 Christina Amaro RN [address] [place] [address] Specialty Health Coach Hematology/Oncology 09/13/20 Anca Huddleston MD [address] [place] [address] Hematology/Oncology 05/09/22 Binder Cutter Hand Relationship Specialty Start Date End Date Fiona Durant MD [address] [place] [address] PCP - General 11/23/03 Rell Barcenas MD, [address] [place] [address] Physician Radiation Oncology 08/27/20 Christina Amaro RN [address] [place] [address] Specialty Health Coach Hematology/Oncology 09/13/20 Anca Huddleston MD [address] [place] [address] Hematology/Oncology 05/09/22 Binder Cutter Hand Relationship Specialty Start Date End Date Fiona Durant MD [address] [place] [address] PCP - General 11/23/03 Rell Barcenas MD, [address] [place] [address] Physician Radiation Oncology 08/27/20 Christina Amaro RN [address] [place] [address] Specialty Health Coach Hematology/Oncology 09/13/20 Binder Cutter Hand Relationship Specialty Start Date End Date Fiona Durant MD [address] [place] [address] PCP - General 11/23/03 Rell Barcensa MD, [address] [place] [address] Physician Radiation Oncology 08/27/20 Christina Amaro RN [address] [place] [address] Specialty Health Coach Hematology/Oncology 09/13/20 Binder Cutter Hand Relationship Specialty Start Date End Date Fiona Durant MD [address] [place] [address] PCP - General 11/23/03 Rell Barcenas MD, [address] [place] [address] Physician Radiation Oncology 08/27/20 Christina Amaro, LILI [address] [place] [address] Specialty Health Coach Hematology/Oncology 09/13/20 Binder Cutter Hand Relationship Specialty Start Date End Date Fiona Durant MD [address] [place] [address] PCP - General 11/23/03 Rell Barcenas MD, [address] [place] [address] Physician Radiation Oncology 08/27/20 Christina Amaro, LILI [address] [place] [address] Specialty Health Coach Hematology/Oncology 09/13/20 Binder Cutter Hand Relationship Specialty Start Date End Date Fiona Duarnt MD [address] [place] [address] PCP - General 11/23/03 Rell Barcenas MD, [address] [place] [address] Physician Radiation Oncology 08/27/20 Christina Amaro, LILI [address] [place] [address] Specialty Health Coach Hematology/Oncology 09/13/20 Binder Cutter Hand Relationship Specialty Start Date End Date Fiona Durant MD [address] [place] [address] PCP - General 11/23/03 Rell Barcenas MD, [address] [place] [address] Physician Radiation Oncology 08/27/20 Christina Amaro, LILI [address] [place] [address] Specialty Health Coach Hematology/Oncology 09/13/20 Binder Cutter Hand Relationship Specialty Start Date End Date Fiona Durant MD [address] [place] [address] PCP - General 11/23/03 Rell Barcenas MD, [address] [place] [address] Physician Radiation Oncology 08/27/20 Christina Amaro, LILI [address] [place] [address] Specialty Health Coach Hematology/Oncology 09/13/20 Anca Huddleston MD [address] [place] [address] Hematology/Oncology 05/09/22 02/19/23 Binder Cutter Hand Relationship Specialty Start Date End Date Fiona Durant MD [address] [place] [address] PCP - General 11/23/03 Rell Barcenas MD, [address] [place] [address] Physician Radiation Oncology 08/27/20 Christina Amaro, LILI [address] [place] [address] Specialty Health Coach Hematology/Oncology 09/13/20 Binder Cutter Hand Relationship Specialty Start Date End Date Fiona Durant MD [address] [place] [address] PCP - General 11/23/03 Rell Barcenas MDMD [address] [place] [address] Physician Radiation Oncology 08/27/20 Christina Amaro, LILI [address] [place] [address] Specialty Health Coach Hematology/Oncology 09/13/20 Binder Cutter Hand Relationship Specialty Start Date End Date Fiona Durant MD [address] [place] [address] PCP - General 11/23/03 Rell Barcenas MD, [address] [place] [address] Physician Radiation Oncology 08/27/20 Christina Amaro RN [address] [place] [address] Specialty Health Coach Hematology/Oncology 09/13/20 Binder Cutter Hand Relationship Specialty Start Date End Date Fiona Durant MD [address] [place] [address] PCP - General 11/23/03 Rell Barcenas MD, [address] [place] [address] Physician Radiation Oncology 08/27/20 Christina Amaro, LILI [address] [place] [address] Specialty Health Coach Hematology/Oncology 09/13/20 Binder Cutter Hand Relationship Specialty Start Date End Date Fiona Durant MD [address] [place] [address] PCP - General 11/23/03 Rell Barcenas MD, [address] [place] [address] Physician Radiation Oncology 08/27/20 Christina Amaro, RN [address] [place] [address] Specialty Health Coach Hematology/Oncology 09/13/20 Binder Cutter Hand Relationship Specialty Start Date End Date Fiona Durant MD [address] [place] [address] PCP - General 11/23/03 Rell Barcenas MD, [address] [place] [address] Physician Radiation Oncology 08/27/20 Christina Amaro RN [address] [place] [address] Specialty Health Coach Hematology/Oncology 09/13/20 Binder Cutter Hand Relationship Specialty Start Date End Date Fiona Durant MD [address] [place] [address] PCP - General 11/23/03 Rell Barcenas MD, [address] [place] [address] Physician Radiation Oncology 08/27/20 Christina Amaro, LILI [address] [place] [address] Specialty Health Coach Hematology/Oncology 09/13/20 Snadoval Burgess MD [address] [place] [address] Hematology/Oncology 05/15/23 Binder Cutter Hand Relationship Specialty Start Date End Date Fiona Durant MD [address] [place] [address] PCP - General 11/23/03 Rell Barcenas MD, [address] [place] [address] Physician Radiation Oncology 08/27/20 Christina Amaro, RN [address] [place] [address] Specialty Health Coach Hematology/Oncology 09/13/20 Sandoval Burgess MD [address] [place] [address] Hematology/Oncology 05/15/23 Binder Cutter Hand Relationship Specialty Start Date End Date Fiona Durant MD [address] [place] [address] PCP - General 11/23/03 Rell Barcenas MD, [address] [place] [address] Physician Radiation Oncology 08/27/20 Christina Amaro, RN [address] [place] [address] Specialty Health Coach Hematology/Oncology 09/13/20 Sandoval Burgess MD [address] [place] [address] Hematology/Oncology 05/15/23 Binder Cutter Hand Relationship Specialty Start Date End Date Fiona Durant MD [address] [place] [address] PCP - General 11/23/03 Rell Barcenas MD, [address] [place] [address] Physician Radiation Oncology 08/27/20 Christina Amaro, LILI [address] [place] [address] Specialty Health Coach Hematology/Oncology 09/13/20 Sandoval Burgess MD [address] [place] [address] Hematology/Oncology 05/15/23 Binder Cutter Hand Relationship Specialty Start Date End Date Fiona Durant MD [address] [place] [address] PCP - General 11/23/03 Rell Barcenas MD, [address] [place] [address] Physician Radiation Oncology 08/27/20 Christina Amaro RN [address] [place] [address] Specialty Health Coach Hematology/Oncology 09/13/20 Sandoval Burgess MD [address] [place] [address] Hematology/Oncology 05/15/23 Binder Cutter Hand Relationship Specialty Start Date End Date Fiona Durant MD [address] [place] [address] PCP - General 11/23/03 Rell Barcenas MD, [address] [place] [address] Physician Radiation Oncology 08/27/20 Christina Amaro, RN [address] [place] [address] Specialty Health Coach Hematology/Oncology 09/13/20 Sandoval Burgess MD [address] [place] [address] Hematology/Oncology 05/15/23 Binder Cutter Hand Relationship Specialty Start Date End Date Fiona Durant MD [address] [place] [address] PCP - General 11/23/03 Rell Barcenas MD, [address] [place] [address] Physician Radiation Oncology 08/27/20 Christina Amaro, RN [address] [place] [address] Specialty Health Coach Hematology/Oncology 09/13/20 Sandoval Burgess MD [address] [place] [address] Hematology/Oncology 05/15/23 Binder Cutter Hand Relationship Specialty Start Date End Date Fiona Durant MD [address] [place] [address] PCP - General 11/23/03 Rell Barcenas MD, [address] [place] [address] Physician Radiation Oncology 08/27/20 Christina Amaro, RN [address] [place] [address] Specialty Health Coach Hematology/Oncology 09/13/20 Sandoval Burgess MD [address] [place] [address] Hematology/Oncology 05/15/23 Binder Cutter Hand Relationship Specialty Start Date End Date Fiona Durant MD [address] [place] [address] PCP - General 11/23/03 Rell Barcenas MD, [address] [place] [address] Physician Radiation Oncology 08/27/20 Christina Amaro, LILI [address] [place] [address] Specialty Health Coach Hematology/Oncology 09/13/20 Sandoval Burgess MD [address] [place] [address] Hematology/Oncology 05/15/23 Binder Cutter Hand Relationship Specialty Start Date End Date Fiona Durant MD [address] [place] [address] PCP - General 11/23/03 Rell Barcenas MD, [address] [place] [address] Physician Radiation Oncology 08/27/20 Christina Amaro, LILI [address] [place] [address] Specialty Health Coach Hematology/Oncology 09/13/20 Sandoval Burgess MD [address] [place] [place] [address] Hematology/Oncology 05/15/23 Binder Cutter Hand Relationship Specialty Start Date End Date Fiona Durant MD [address] [place] [address] PCP - General 11/23/03 Rell Barcenas MD, [address] [place] [address] Physician Radiation Oncology 08/27/20 Christina Amaro RN [address] [place] [address] Specialty Health Coach Hematology/Oncology 09/13/20 Sandoval Burgess MD [address] [place] [address] Hematology/Oncology 05/15/23 Binder Cutter Hand Relationship Specialty Start Date End Date Fiona Durant MD [address] [place] [address] PCP - General 11/23/03 Rell Barcenas MD, MD [address] [place] [address] Physician Radiation Oncology 08/27/20 Christina Amaro RN [address] [place] [address] Specialty Health Coach Hematology/Oncology 09/13/20 Sandoval Burgess MD [address] [place] [address] Hematology/Oncology 05/15/23 Binder Cutter Hand Relationship Specialty Start Date End Date Fiona Durant MD [address] [place] [address] PCP - General 11/23/03 Rell Barcenas MD, [address] [place] [address] Physician Radiation Oncology 08/27/20 Christina Amaro, LILI [address] [place] [address] Specialty Health Coach Hematology/Oncology 09/13/20 Sandoval Burgess MD [address] [place] [address] Hematology/Oncology 05/15/23 Binder Cutter Hand Relationship Specialty Start Date End Date Fiona Durant MD [address] [place] [address] PCP - General 11/23/03 Rell Barcenas MD, [address] [place] [address] Physician Radiation Oncology 08/27/20 Christina Amaro, RN [address] [place] [address] Specialty Health Coach Hematology/Oncology 09/13/20 Sandoval Burgess MD [address] [place] [address] Hematology/Oncology 05/15/23 Binder Cutter Hand Relationship Specialty Start Date End Date Fiona Durant MD [address] [place] [address] PCP - General 11/23/03 Rell Barcenas MD, [address] [place] [address] Physician Radiation Oncology 08/27/20 Christina Amaro RN [address] [place] [address] Specialty Health Coach Hematology/Oncology 09/13/20 Binder Cutter Hand Relationship Specialty Start Date End Date Fiona Durant MD [address] [place] [address] PCP - General 11/23/03 Rell Barcenas MD, [address] [place] [address] Physician Radiation Oncology 08/27/20 Christina Amaro RN [address] [place] [address] Specialty Health Coach Hematology/Oncology 09/13/20 Anca Huddleston MD [address] [place] [address] Hematology/Oncology 05/09/22 02/19/23 Binder Cutter Hand Relationship Specialty Start Date End Date Fiona Durant MD [address] [place] [address] PCP - General 11/23/03 Rell Barcenas MD, [address] [place] [address] Physician Radiation Oncology 08/27/20 Christina Amaro, LILI [address] [place] [address] Specialty Health Coach Hematology/Oncology 09/13/20 Anca Huddleston MD [address] [place] [address] Hematology/Oncology 05/09/22 02/19/23 Binder Cutter Hand Relationship Specialty Start Date End Date Fiona Durant MD [address] [place] [address] PCP - General 11/23/03 Rell Barcenas MD, [address] [place] [address] Physician Radiation Oncology 08/27/20 Christina Amaro RN [address] [place] [address] Specialty Health Coach Hematology/Oncology 09/13/20 Binder Cutter Hand Relationship Specialty Start Date End Date Fiona Durant MD [address] [place] [address] PCP - General 11/23/03 eRll Barcenas MD, [address] [place] [address] Physician Radiation Oncology 08/27/20 Christina Amaro RN [address] [place] [address] Specialty Health Coach Hematology/Oncology 09/13/20 Anca Huddleston MD [address] [place] [address] Hematology/Oncology 05/09/22 02/19/23 Binder Cutter Hand Relationship Specialty Start Date End Date Fiona Durant MD [address] [place] [address] PCP - General 11/23/03 Rell Barcenas MD, [address] [place] [address] Physician Radiation Oncology 08/27/20 Christina Amaro RN [address] [place] [address] Specialty Health Coach Hematology/Oncology 09/13/20 Sandoval Burgess MD [address] [place] [address] Hematology/Oncology 05/15/23 Binder Cutter Hand Relationship Specialty Start Date End Date Fiona Durant MD [address] [place] [address] PCP - General 11/23/03 Rell Barcenas MD, MD [address] [place] [address] Physician Radiation Oncology 08/27/20 Christina Amaro RN [address] [place] [address] Specialty Health Coach Hematology/Oncology 09/13/20 Sandoval Burgess MD [address] [place] [address] Hematology/Oncology 05/15/23 Binder Cutter Hand Relationship Specialty Start Date End Date Fiona Durant MD [address] [place] [address] PCP - General 11/23/03 Rell Barcenas MD, [address] [place] [address] Physician Radiation Oncology 08/27/20 Christina Amaro, RN [address] [place] [address] Specialty Health Coach Hematology/Oncology 09/13/20 Sandoval Burgess MD [address] [place] [address] Hematology/Oncology 05/15/23 Binder Cutter Hand Relationship Specialty Start Date End Date Fiona Durant MD [address] [place] [address] PCP - General 11/23/03 Rell Barcenas MD, [address] [place] [address] Physician Radiation Oncology 08/27/20 Christina Amaro, RN [address] [place] [address] Specialty Health Coach Hematology/Oncology 09/13/20 Sandoval Burgess MD [address] [place] [address] Hematology/Oncology 05/15/23 Binder Cutter Hand Relationship Specialty Start Date End Date Fiona Durant MD [address] [place] [address] PCP - General 11/23/03 Rell Barcenas MD [address] [place] [address] Physician Radiation Oncology 08/27/20 Christina Amaro RN [address] [place] [address] Specialty Health Coach Hematology/Oncology 09/13/20 Sandoval Burgess MD [address] [place] [address] Hematology/Oncology 05/15/23 Binder Cutter Hand Relationship Specialty Start Date End Date Fiona Durant MD [address] [place] [address] PCP - General 11/23/03 Rell Barcenas MD [address] [place] [address] Physician Radiation Oncology 08/27/20 Christina Amaro RN [address] [place] [address] Specialty Health Coach Hematology/Oncology 09/13/20 Sandoval Burgess MD [address] [place] [address] Hematology/Oncology 05/15/23 Binder Cutter Hand Relationship Specialty Start Date End Date Fiona Durant MD [address] [place] [address] PCP - General 11/23/03 Rell Barcenas MD [address] [place] [address] Physician Radiation Oncology 08/27/20 Christina Amaro, LILI [address] [place] [address] Specialty Health Coach Hematology/Oncology 09/13/20 Sandoval Burgess MD [address] [place] [address] Hematology/Oncology 05/15/23 Binder Cutter Hand Relationship Specialty Start Date End Date Fiona Durant MD [address] [place] [address] PCP - General 11/23/03 Rell Barcenas MD [address] [place] [address] Physician Radiation Oncology 08/27/20 Christina Amaro, LILI [address] [place] [address] Specialty Health Coach Hematology/Oncology 09/13/20 Sandoval Burgess MD [address] [place] [address] Hematology/Oncology 05/15/23 Binder Cutter Hand Relationship Specialty Start Date End Date Fiona Durant MD [address] [place] [address] PCP - General 11/23/03 Rell Barcenas MD [address] [place] [address] Physician Radiation Oncology 08/27/20 Christina Amaro RN [address] [place] [address] Specialty Health Coach Hematology/Oncology 09/13/20 Sandoval Burgess MD [address] [place] [address] Hematology/Oncology 05/15/23 Binder Cutter Hand Relationship Specialty Start Date End Date Fiona Durant MD [address] [place] [address] PCP - General 11/23/03 Rell Barcenas MD [address] [place] [address] Physician Radiation Oncology 08/27/20 Christina Amaro RN [address] [place] [address] Specialty Health Coach Hematology/Oncology 09/13/20 Sandoval Burgess MD [address] [place] [address] Hematology/Oncology 05/15/23 Binder Cutter Hand Relationship Specialty Start Date End Date Fiona Durant MD [address] [place] [address] PCP - General 11/23/03 Rell Barcenas MD [address] [place] [address] Physician Radiation Oncology 08/27/20 Christina Amaro, RN [address] [place] [address] Specialty Health Coach Hematology/Oncology 09/13/20 Sandoval Burgess MD [address] [place] [address] Hematology/Oncology 05/15/23 Binder Cutter Hand Relationship Specialty Start Date End Date Fiona Durant MD [address] [place] [address] PCP - General 11/23/03 Rell Barcenas MD [address] [place] [address] Physician Radiation Oncology 08/27/20 Christina Amaro, LILI [address] [place] [address] Specialty Health Coach Hematology/Oncology 09/13/20 Sandoval Burgess MD [address] [place] [address] Hematology/Oncology 05/15/23 Binder Cutter Hand Relationship Specialty Start Date End Date Fiona Durant MD [address] [place] [address] PCP - General 11/23/03 Rell Barcenas MD [address] [place] [address] Physician Radiation Oncology 08/27/20 Christina Amaro, LILI [address] [place] [address] Specialty Health Coach Hematology/Oncology 09/13/20 Sandoval Burgess MD [address] [place] [address] Hematology/Oncology 05/15/23 Binder Cutter Hand Relationship Specialty Start Date End Date Fiona Durant MD [address] [place] [address] PCP - General 11/23/03 Rell Barcenas MD [address] [place] [address] Physician Radiation Oncology 08/27/20 Christina Amaro RN [address] [place] [address] Specialty Health Coach Hematology/Oncology 09/13/20 Sandoval Burgess MD [address] [place] [address] Hematology/Oncology 05/15/23 Binder Cutter Hand Relationship Specialty Start Date End Date Fiona Durant MD [address] [place] [address] PCP - General 11/23/03 Rell Barcenas MD [address] [place] [address] Physician Radiation Oncology 08/27/20 Christina Amaro RN [address] [place] [address] Specialty Health Coach Hematology/Oncology 09/13/20 Sandoval Burgess MD [address] [place] [address] Hematology/Oncology 05/15/23 Binder Cutter Hand Relationship Specialty Start Date End Date Fiona Durant MD [address] [place] [address] PCP - General 11/23/03 Rell Barcenas MD [address] [place] [address] Physician Radiation Oncology 08/27/20 Christina Amaro, LILI [address] [place] [address] Specialty Health Coach Hematology/Oncology 09/13/20 Sandoval Burgess MD [address] [place] [address] Hematology/Oncology 05/15/23 Binder Cutter Hand Relationship Specialty Start Date End Date Fiona Durant MD [address] [place] [address] PCP - General 11/23/03 Rell Barcenas MD [address] [place] [address] Physician Radiation Oncology 08/27/20 Christina Amaro, RN [address] [place] [address] Specialty Health Coach Hematology/Oncology 09/13/20 Sandoval Burgess MD [address] [place] [address] Hematology/Oncology 05/15/23 Binder Cutter Hand Relationship Specialty Start Date End Date Fiona Durant MD [address] [place] [address] PCP - General 11/23/03 Rell Barcenas MD [address] [place] [address] Physician Radiation Oncology 08/27/20 Christina Amaro RN [address] [place] [address] Specialty Health Coach Hematology/Oncology 09/13/20 Sandoval Burgess MD [address] [place] [address] Hematology/Oncology 05/15/23 Binder Cutter Hand Relationship Specialty Start Date End Date Fiona Durant MD [address] [place] [address] PCP - General 11/23/03 Rell Barcenas MD [address] [place] [address] Physician Radiation Oncology 08/27/20 Christina Amaro RN [address] [place] [address] Specialty Health Coach Hematology/Oncology 09/13/20 Sandoval Burgess MD [address] [place] [address] Hematology/Oncology 05/15/23 Binder Cutter Hand Relationship Specialty Start Date End Date Fiona Durant MD [address] [place] [address] PCP - General 11/23/03 Rell Barcenas MD [address] [place] [address] Physician Radiation Oncology 08/27/20 Christina Amaro RN [address] [place] [address] Specialty Health Coach Hematology/Oncology 09/13/20 Sandoval Burgess MD [address] [place] [address] Hematology/Oncology 05/15/23 Binder Cutter Hand Relationship Specialty Start Date End Date Fiona Durant MD [address] [place] [address] PCP - General 11/23/03 Rell Barcenas MD [address] [place] [address] Physician Radiation Oncology 08/27/20 Christina Amaro, LILI [address] [place] [address] Specialty Health Coach Hematology/Oncology 09/13/20 Sandoval Burgess MD [address] [place] [address] Hematology/Oncology 05/15/23 Binder Cutter Hand Relationship Specialty Start Date End Date Fiona Durant MD [address] [place] [address] PCP - General 11/23/03 Rell Barcenas MD [address] [place] [address] Physician Radiation Oncology 08/27/20 Christina Amaro RN [address] [place] [address] Specialty Health Coach Hematology/Oncology 09/13/20 Sandoval Burgess MD [address] [place] [address] Hematology/Oncology 05/15/23 Binder Cutter Hand Relationship Specialty Start Date End Date Fiona Durant MD [address] [place] [address] PCP - General 11/23/03 Rell Barcenas MD [address] [place] [address] Physician Radiation Oncology 08/27/20 Christina Amaro RN [address] [place] [address] Specialty Health Coach Hematology/Oncology 09/13/20 Sandoval Burgess MD [address] [place] [address] Hematology/Oncology 05/15/23 Binder Cutter Hand Relationship Specialty Start Date End Date Fiona Durant MD [address] [place] [address] PCP - General 11/23/03 Rell Barcenas MD [address] [place] [address] Physician Radiation Oncology 08/27/20 Christina Amaro, LILI [address] [place] [address] Specialty Health Coach Hematology/Oncology 09/13/20 Sandoval Burgess MD [address] [place] [address] Hematology/Oncology 05/15/23 Binder Cutter Hand Relationship Specialty Start Date End Date Fiona Durant MD [address] [place] [address] PCP - General 11/23/03 Rell Barcenas MD [address] [place] [address] Physician Radiation Oncology 08/27/20 Christina Amaro RN [address] [place] [address] Specialty Health Coach Hematology/Oncology 09/13/20 Sandoval Burgess MD [address] [place] [address] Hematology/Oncology 05/15/23 Bebe Flores, CREDIT AND LOAN COLLECTIONS SUPERVISOR.ETHANOL QUALITY LEADER [address] [place] [address] Bioassayist Internal Medicine 09/15/24 Peggy Garcia, CREDIT AND LOAN COLLECTIONS SUPERVISOR.CHANGE MANAGEMENT DIRECTOR [address] [facility] [place] [address] Bioassayist Internal Medicine 09/15/24 Binder Cutter Hand Relationship Specialty Start Date End Date Fiona Durant MD [address] [place] [address] PCP - General 11/23/03 Rell Barcenas MD [address] [place] [address] Physician Radiation Oncology 08/27/20 Christina Amaro, LILI [address] [place] [address] Specialty Health Coach Hematology/Oncology 09/13/20 Sandoval Burgess MD [address] [place] [address] Hematology/Oncology 05/15/23 Bebe Flores, CREDIT AND LOAN COLLECTIONS SUPERVISOR.ETHANOL QUALITY LEADER [address] [place] [address] Bioassayist Internal Medicine 09/15/24 Peggy Garcia, CREDIT AND LOAN COLLECTIONS SUPERVISOR.CHANGE MANAGEMENT DIRECTOR [address] [place] [address] Bioassayist Internal Medicine 09/15/24 Binder Cutter Hand Relationship Specialty Start Date End Date Fiona Durant MD [address] [place] [address] PCP - General 11/23/03 Rell Barcenas MD [address] [place] [address] Physician Radiation Oncology 08/27/20 Christina Amaro, LILI [address] [place] [address] Specialty Health Coach Hematology/Oncology 09/13/20 Sandoval Burgess MD [address] [place] [address] Hematology/Oncology 05/15/23 Bebe Flores APRN.ETHANOL QUALITY LEADER [address] [place] [address] Bioassayist Internal Medicine 09/15/24 Peggy Garcia APRN.CHANGE MANAGEMENT DIRECTOR [address] [facility] [place] [place] [address] [facility] Internal Medicine 09/15/24 Binder Cutter Hand Relationship Specialty Start Date End Date Fiona Durant MD [address] [place] [address] PCP - General 11/23/03 Rell Barcenas MD [address] [place] [address] Physician Radiation Oncology 08/27/20 Christina Amaro, LILI [address] [place] [address] Specialty Health Coach Hematology/Oncology 09/13/20 Sandoval Burgess MD [address] [place] [address] Hematology/Oncology 05/15/23 Bebe Flores APRN.ETHANOL QUALITY LEADER [address] [place] [address] [facility] Internal Medicine 09/15/24 Peggy Garcia APRN.CHANGE MANAGEMENT DIRECTOR [address] [place] [address] Bioassayist Internal Medicine 09/15/24 Binder Cutter Hand Relationship Specialty Start Date End Date Fiona Durant MD [address] [place] [address] PCP - General 11/23/03 Rell Barcenas MD [address] [place] [address] Physician Radiation Oncology 08/27/20 Christina Amaro, LILI [address] [place] [address] Specialty Health Coach Hematology/Oncology 09/13/20 Sandoval Burgess MD [address] [place] [address] Hematology/Oncology 05/15/23 Bebe Flores, CREDIT AND LOAN COLLECTIONS SUPERVISOR.ETHANOL QUALITY LEADER [address] [place] [address] Bioassayist Internal Medicine 09/15/24 Peggy Garcia, CREDIT AND LOAN COLLECTIONS SUPERVISOR.CHANGE MANAGEMENT DIRECTOR [address] [place] [address] Bioassayist Internal Medicine 09/15/24 Binder Cutter Hand Relationship Specialty Start Date End Date Fiona Durant MD [address] [place] [address] PCP - General 11/23/03 Rell Barcenas MD [address] [place] [address] Physician Radiation Oncology 08/27/20 Christina Amaro, LILI [address] [place] [address] Specialty Health Coach Hematology/Oncology 09/13/20 Sandoval Burgess MD [address] [place] [address] Hematology/Oncology 05/15/23 Bebe Flores, CREDIT AND LOAN COLLECTIONS SUPERVISOR.ETHANOL QUALITY LEADER [address] [place] [address] Bioassayist Internal Medicine 09/15/24 Peggy Garcia CREDIT AND LOAN COLLECTIONS SUPERVISOR.CHANGE MANAGEMENT DIRECTOR [address] [facility] [place] [place] [address] Bioassayist Internal Medicine 09/15/24 Binder Cutter Hand Relationship Specialty Start Date End Date Fiona Durant MD [address] [place] [address] PCP - General 11/23/03 Rell Barcenas MD [address] [place] [address] Physician Radiation Oncology 08/27/20 Christina Amaro, LILI [address] [place] [address] Specialty Health Coach Hematology/Oncology 09/13/20 Sandoval Burgess MD [address] [place] [address] Hematology/Oncology 05/15/23 Binder Cutter Hand Relationship Specialty Start Date End Date Fiona Durant MD [address] [place] [address] PCP - General 11/23/03 Rell Barcenas MD [address] [place] [address] Physician Radiation Oncology 08/27/20 Christina Amaro RN [address] [place] [address] Specialty Health Coach Hematology/Oncology 09/13/20 Sandoval Burgess MD [address] [place] [address] Hematology/Oncology 05/15/23 Bebe Flores APRN.ETHANOL QUALITY LEADER [address] [place] [address] Bioassayist Internal Medicine 09/15/24 Peggy Garcia CREDIT AND LOAN COLLECTIONS SUPERVISOR.CHANGE MANAGEMENT DIRECTOR [address] [facility] [place] [place] [address] [facility] Internal Medicine 09/15/24 Binder Cutter Hand Relationship Specialty Start Date End Date Fiona Durant MD [address] [place] [address] PCP - General 11/23/03 Rell Barcenas MD [address] [place] [address] Physician Radiation Oncology 08/27/20 Christina Amaro, LILI [address] [place] [address] Specialty Health Coach Hematology/Oncology 09/13/20 Sandoval Burgess MD [address] [place] [address] Hematology/Oncology 05/15/23 Bebe Flores APRN.ETHANOL QUALITY LEADER [address] [place] [address] Bioassayist Internal Medicine 09/15/24 Peggy Garcia CREDIT AND LOAN COLLECTIONS SUPERVISOR.CHANGE MANAGEMENT DIRECTOR [address] [place] [address] [facility] Internal Medicine 09/15/24 Binder Cutter Hand Relationship Specialty Start Date End Date Fiona Durant MD [address] [place] [address] PCP - General 11/23/03 Rell Barcenas MD [address] [place] [address] Physician Radiation Oncology 08/27/20 Christina Amaro, LILI [address] [place] [address] Specialty Health Coach Hematology/Oncology 09/13/20 Sandoval Burgess MD [address] [place] [address] Hematology/Oncology 05/15/23 Bebe Flores CREDIT AND LOAN COLLECTIONS SUPERVISOR.ETHANOL QUALITY LEADER [address] [place] [address] Bioassayist Internal Medicine 09/15/24 Peggy Garcia CREDIT AND LOAN COLLECTIONS SUPERVISOR.CHANGE MANAGEMENT DIRECTOR [address] [place] [address] Bioassayist Internal Medicine 09/15/24 Binder Cutter Hand Relationship Specialty Start Date End Date Fiona Durant MD [address] [place] [address] PCP - General 11/23/03 Rell Barcenas MD [address] [place] [address] Physician Radiation Oncology 08/27/20 Christina Amaro, LILI [address] [place] [address] Specialty Health Coach Hematology/Oncology 09/13/20 Sandoval Burgess MD [address] [place] [address] Hematology/Oncology 05/15/23 Bebe Flores, CREDIT AND LOAN COLLECTIONS SUPERVISOR.ETHANOL QUALITY LEADER [address] [place] [address] Bioassayist Internal Medicine 09/15/24 Peggy Garcia, CREDIT AND LOAN COLLECTIONS SUPERVISOR.CHANGE MANAGEMENT DIRECTOR [address] [facility] [place] [place] [address] Bioassayist Internal Medicine 09/15/24 Binder Cutter Hand Relationship Specialty Start Date End Date Fiona Durant MD [address] [place] [address] PCP - General 11/23/03 Rell Barcenas MD [address] [place] [address] Physician Radiation Oncology 08/27/20 Christina Amaro, LILI [address] [place] [address] Specialty Health Coach Hematology/Oncology 09/13/20 Sandoval Burgess MD [address] [place] [address] Hematology/Oncology 05/15/23 Bebe Flores APRN.ETHANOL QUALITY LEADER [address] [place] [address] Bioassayist Internal Medicine 09/15/24 Peggy Garcia APRN.CHANGE MANAGEMENT DIRECTOR [address] [facility] [place] [place] [address] [facility] Internal Medicine 09/15/24 Binder Cutter Hand Relationship Specialty Start Date End Date Fiona Durant MD [address] [place] [address] PCP - General 11/23/03 Rell Barcenas MD [address] [place] [address] Physician Radiation Oncology 08/27/20 Christina Amaro, RN [address] [place] [address] Specialty Health Coach Hematology/Oncology 09/13/20 Sandoval Burgess MD [address] [place] [address] Hematology/Oncology 05/15/23 Bebe Flores APRN.ETHANOL QUALITY LEADER [address] [place] [address] [facility] Internal Medicine 09/15/24 Peggy Garcia APRN.CHANGE MANAGEMENT DIRECTOR [address] [place] [address] Bioassayist Internal Medicine 09/15/24 Binder Cutter Hand Relationship Specialty Start Date End Date Fiona Durant MD [address] [place] [address] PCP - General 11/23/03 Rell Barcenas MD [address] [place] [address] Physician Radiation Oncology 08/27/20 Christina Amaro RN [address] [place] [address] Specialty Health Coach Hematology/Oncology 09/13/20 Sandoval Burgess MD [address] [place] [address] Hematology/Oncology 05/15/23 Bebe Flores APRN.ETHANOL QUALITY LEADER [address] [place] [address] Bioassayist Internal Medicine 09/15/24 Peggy Garcia CREDIT AND LOAN COLLECTIONS SUPERVISOR.CHANGE MANAGEMENT DIRECTOR [address] [place] [address] Bioassayist Internal Medicine 09/15/24 Binder Cutter Hand Relationship Specialty Start Date End Date Fiona Durant MD [address] [place] [address] PCP - General 11/23/03 Rell Barcenas MD [address] [place] [address] Physician Radiation Oncology 08/27/20 Christina Amaro RN [address] [place] [address] Specialty Health Coach Hematology/Oncology 09/13/20 Sandoval Burgess MD [address] [place] [address] Hematology/Oncology 05/15/23 Bebe Flores, CREDIT AND LOAN COLLECTIONS SUPERVISOR.ETHANOL QUALITY LEADER [address] [place] [address] Bioassayist Internal Medicine 09/15/24 Peggy Garcia CREDIT AND LOAN COLLECTIONS SUPERVISOR.CHANGE MANAGEMENT DIRECTOR [address] [facility] [place] [place] [address] Bioassayist Internal Medicine 09/15/24 Binder Cutter Hand Relationship Specialty Start Date End Date Fiona Durant MD [address] [place] [address] PCP - General 11/23/03 Rell Barcenas MD [address] [place] [address] Physician Radiation Oncology 08/27/20 Christina Amaro, LILI [address] [place] [address] Specialty Health Coach Hematology/Oncology 09/13/20 Sandoval Burgess MD [address] [place] [address] Hematology/Oncology 05/15/23 Bebe Flores, CREDIT AND LOAN COLLECTIONS SUPERVISOR.ETHANOL QUALITY LEADER [address] [place] [address] Bioassayist Internal Medicine 09/15/24 Peggy Garcia CREDIT AND LOAN COLLECTIONS SUPERVISOR.CHANGE MANAGEMENT DIRECTOR [address] [place] [address] Bioassayist Internal Medicine 09/15/24 Binder Cutter Hand Relationship Specialty Start Date End Date Fiona Durant MD [address] [place] [address] PCP - General 11/23/03 Rell Barcenas MD [address] [place] [address] Physician Radiation Oncology 08/27/20 Christina Amaro RN [address] [place] [address] Specialty Health Coach Hematology/Oncology 09/13/20 Sandoval Burgess MD [address] [place] [address] Hematology/Oncology 05/15/23 Bebe Flores CREDIT AND LOAN COLLECTIONS SUPERVISOR.ETHANOL QUALITY LEADER [address] [place] [address] Bioassayist Internal Medicine 09/15/24 Peggy Garcia CREDIT AND LOAN COLLECTIONS SUPERVISOR.CHANGE MANAGEMENT DIRECTOR [address] [place] [address] Bioassayist Internal Medicine 09/15/24 Binder Cutter Hand Relationship Specialty Start Date End Date Fiona Durant MD [address] [place] [address] PCP - General 11/23/03 Rell Barcenas MD [address] [place] [address] Physician Radiation Oncology 08/27/20 Christina Amaro RN [address] [place] [address] Specialty Health Coach Hematology/Oncology 09/13/20 Sandoval Burgess MD [address] [place] [address] Hematology/Oncology 05/15/23 Bebe Flores, CREDIT AND LOAN COLLECTIONS SUPERVISOR.ETHANOL QUALITY LEADER [address] [place] [address] Bioassayist Internal Medicine 09/15/24 Peggy Garcia CREDIT AND LOAN COLLECTIONS SUPERVISOR.CHANGE MANAGEMENT DIRECTOR [address] [place] [address] Bioassayist Internal Medicine 09/15/24 Binder Cutter Hand Relationship Specialty Start Date End Date Fiona Durant MD [address] [place] [address] PCP - General 11/23/03 Rell Barcenas MD [address] [place] [address] Physician Radiation Oncology 08/27/20 Christina Amaro RN [address] [place] [address] Specialty Health Coach Hematology/Oncology 09/13/20 Sandoval Burgess MD [address] [place] [address] Hematology/Oncology 05/15/23 Bebe Flores, CREDIT AND LOAN COLLECTIONS SUPERVISOR.ETHANOL QUALITY LEADER [address] [place] [address] [facility] Internal Medicine 09/15/24 Peggy Garcia APRN.CHANGE MANAGEMENT DIRECTOR [address] [place] [address] [facility] Internal Medicine 09/15/24 12/26/24 Peggy Garcia APRN.CHANGE MANAGEMENT DIRECTOR [address] [place] [address] [facility] Internal Medicine 12/30/24 Binder Cutter Hand Relationship Specialty Start Date End Date Fiona Durant MD [address] [place] [address] PCP - General 11/23/03 Rell Barcenas MD [address] [place] [address] Physician Radiation Oncology 08/27/20 Christina Amaro, LILI [address] [place] [address] Specialty Health Coach Hematology/Oncology 09/13/20 Sandoval Burgess MD [address] [place] [address] Hematology/Oncology 05/15/23 Bebe Flores APRN.ETHANOL QUALITY LEADER [address] [place] [address] [facility] Internal Medicine 09/15/24 Peggy Garcia CREDIT AND LOAN COLLECTIONS SUPERVISOR.CHANGE MANAGEMENT DIRECTOR [address] [place] [address] Bioassayist Internal Medicine 12/30/24 Binder Cutter Hand Relationship Specialty Start Date End Date Fiona Durant MD [address] [place] [address] PCP - General 11/23/03 Rell Barcenas MD [address] [place] [address] Physician Radiation Oncology 08/27/20 Christina Amaro RN [address] [place] [address] Specialty Health Coach Hematology/Oncology 09/13/20 Sandoval Burgess MD [address] [place] [address] Hematology/Oncology 05/15/23 Bebe Flores, CREDIT AND LOAN COLLECTIONS SUPERVISOR.ETHANOL QUALITY LEADER [address] [place] [address] Bioassayist Internal Medicine 09/15/24 Peggy Garcia, CREDIT AND LOAN COLLECTIONS SUPERVISOR.CHANGE MANAGEMENT DIRECTOR [address] [place] [address] Bioassayist Internal Medicine 12/30/24 Binder Cutter Hand Relationship Specialty Start Date End Date Fiona Durant MD [address] [place] [address] PCP - General 11/23/03 Rell Barcenas MD [address] [place] [address] Physician Radiation Oncology 08/27/20 Christina Amaro RN [address] [place] [address] Specialty Health Coach Hematology/Oncology 09/13/20 Sandoval Burgess MD [address] [place] [address] Hematology/Oncology 05/15/23 Bebe Flores APRN.ETHANOL QUALITY LEADER [address] [place] [address] Bioassayist Internal Medicine 09/15/24 Peggy Garcia APRN.CHANGE MANAGEMENT DIRECTOR [address] [place] [address] Bioassayist Internal Medicine 09/15/24 12/26/24 Peggy Garcia APRN.CHANGE MANAGEMENT DIRECTOR [address] [place] [address] Bioassayist Internal Medicine 12/30/24 Binder Cutter Hand Relationship Specialty Start Date End Date Fiona Durant MD [address] [place] [address] PCP - General 11/23/03 Rell Barcenas MD [address] [place] [address] Physician Radiation Oncology 08/27/20 Christina Amaro RN [address] [place] [address] Specialty Health Coach Hematology/Oncology 09/13/20 Sandoval Burgess MD [address] [place] [address] Hematology/Oncology 05/15/23 Bebe Flores, CREDIT AND LOAN COLLECTIONS SUPERVISOR.ETHANOL QUALITY LEADER [address] [place] [address] Bioassayist Internal Medicine 09/15/24 Peggy Garcia, CREDIT AND LOAN COLLECTIONS SUPERVISOR.CHANGE MANAGEMENT DIRECTOR [address] [place] [address] Bioassayist Internal Medicine 12/30/24 Binder Cutter Hand Relationship Specialty Start Date End Date Fiona Durant MD [address] [place] [address] PCP - General 11/23/03 Rell Barcenas MD [address] [place] [address] Physician Radiation Oncology 08/27/20 Christina Amaro, RN [address] [place] [address] Specialty Health Coach Hematology/Oncology 09/13/20 Sandoval Burgess MD [address] [place] [address] Hematology/Oncology 05/15/23 Bebe Flores, CREDIT AND LOAN COLLECTIONS SUPERVISOR.ETHANOL QUALITY LEADER [address] [place] [address] Bioassayist Internal Medicine 09/15/24 Peggy Garcia CREDIT AND LOAN COLLECTIONS SUPERVISOR.CHANGE MANAGEMENT DIRECTOR [address] [place] [address] Bioassayist Internal Medicine 12/30/24 Binder Cutter Hand Relationship Specialty Start Date End Date Fiona Durant MD [address] [place] [address] PCP - General 11/23/03 Rell Barcenas MD [address] [place] [address] Physician Radiation Oncology 08/27/20 Christina Amaro RN [address] [place] [address] Specialty Health Coach Hematology/Oncology 09/13/20 Sandoval Burgess MD [address] [place] [address] Hematology/Oncology 05/15/23 Bebe Flores APRN.ETHANOL QUALITY LEADER [address] [place] [address] Bioassayist Internal Medicine 09/15/24 Peggy Garcia CREDIT AND LOAN COLLECTIONS SUPERVISOR.CHANGE MANAGEMENT DIRECTOR [address] [place] [address] Bioassayist Internal Medicine 12/30/24 Binder Cutter Hand Relationship Specialty Start Date End Date Fiona Durant MD [address] [place] [address] PCP - General 11/23/03 Rell Barcenas MD [address] [place] [address] Physician Radiation Oncology 08/27/20 Christina Amaro, LILI [address] [place] [address] Specialty Health Coach Hematology/Oncology 09/13/20 Sandoval Burgess MD [address] [place] [address] Hematology/Oncology 05/15/23 Peggy Garcia APRN.CHANGE MANAGEMENT DIRECTOR [address] [place] [address] Bioassayist Internal Medicine 12/30/24 Bbee Flores APRN.ETHANOL QUALITY LEADER [address] [place] [address] Bioassayist Internal Medicine 02/25/25 Binder Cutter Hand Relationship Specialty Start Date End Date Fiona Durant MD [address] [place] [address] PCP - General 11/23/03 Rell Barcenas MD [address] [place] [address] Physician Radiation Oncology 08/27/20 Christina Amaro, LILI [address] [place] [address] Specialty Health Coach Hematology/Oncology 09/13/20 Sandoval Burgess MD [address] [place] [address] Hematology/Oncology 05/15/23 Peggy Garcia APRN.CHANGE MANAGEMENT DIRECTOR [address] [place] [address] Bioassayist Internal Medicine 12/30/24 Bebe Flores, CREDIT AND LOAN COLLECTIONS SUPERVISOR.ETHANOL QUALITY LEADER [address] [place] [address] Bioassayist Internal Medicine 02/25/25 Binder Cutter Hand Relationship Specialty Start Date End Date Fiona Durant MD [address] [place] [address] PCP - General 11/23/03 Rell Barcenas MD [address] [place] [address] Physician Radiation Oncology 08/27/20 Christina Amaro, LILI [address] [place] [address] Specialty Health Coach Hematology/Oncology 09/13/20 Sandoval Burgess MD [address] [place] [address] Hematology/Oncology 05/15/23 Peggy Garcia, CREDIT AND LOAN COLLECTIONS SUPERVISOR.CHANGE MANAGEMENT DIRECTOR [address] [place] [address] Bioassayist Internal Medicine 12/30/24 Bebe Flores, CREDIT AND LOAN COLLECTIONS SUPERVISOR.ETHANOL QUALITY LEADER [address] [place] [address] Bioassayist Internal Medicine 02/25/25 Binder Cutter Hand Relationship Specialty Start Date End Date Fiona Durant MD [address] [place] [address] PCP - General 11/23/03 Rell Barcenas MD [address] [place] [address] Physician Radiation Oncology 08/27/20 Christina Amaro, LILI [address] [place] [address] Specialty Health Coach Hematology/Oncology 09/13/20 Sandoval Burgess MD [address] [place] [address] Hematology/Oncology 05/15/23 Peggy Garcia APRN.CHANGE MANAGEMENT DIRECTOR [address] [place] [address] Bioassayist Internal Medicine 12/30/24 Bebe Flores APRN.ETHANOL QUALITY LEADER [address] [place] [address] Bioassayist Internal Medicine 02/25/25 Binder Cutter Hand Relationship Specialty Start Date End Date Fiona Durant MD [address] [place] [address] PCP - General 11/23/03 Rell Barcenas MD [address] [place] [address] Physician Radiation Oncology 08/27/20 Christina Amaro, LILI [address] [place] [address] Specialty Health Coach Hematology/Oncology 09/13/20 Sandoval Burgess MD [address] [place] [address] Hematology/Oncology 05/15/23 Peggy Garcia APRN.CHANGE MANAGEMENT DIRECTOR [address] [place] [address] Bioassayist Internal Medicine 12/30/24 Bebe Flores APRN.ETHANOL QUALITY LEADER [address] [place] [address] Bioassayist Internal Medicine 02/25/25 Binder Cutter Hand Relationship Specialty Start Date End Date Fiona Durant MD [address] [place] [address] PCP - General 11/23/03 Rell Barcenas MD [address] [place] [address] Physician Radiation Oncology 08/27/20 Christina Amaro, LILI [address] [place] [address] Specialty Health Coach Hematology/Oncology 09/13/20 Sandoval Burgess MD [address] [place] [address] Hematology/Oncology 05/15/23 Peggy Garcia, CREDIT AND LOAN COLLECTIONS SUPERVISOR.CHANGE MANAGEMENT DIRECTOR [address] [place] [address] Bioassayist Internal Medicine 12/30/24 Bebe Flores, CREDIT AND LOAN COLLECTIONS SUPERVISOR.ETHANOL QUALITY LEADER [address] [place] [address] Bioassayist Internal Medicine 02/25/25 Binder Cutter Hand Relationship Specialty Start Date End Date Fiona Durant MD [address] [place] [address] PCP - General 11/23/03 Rell Barcenas MD [address] [place] [address] Physician Radiation Oncology 08/27/20 Christina Amaro, LILI [address] [place] [address] Specialty Health Coach Hematology/Oncology 09/13/20 Sandoval Burgess MD [address] [place] [address] Hematology/Oncology 05/15/23 Peggy Garcia CREDIT AND LOAN COLLECTIONS SUPERVISOR.CHANGE MANAGEMENT DIRECTOR [address] [place] [address] Bioassayist Internal Medicine 12/30/24 Bebe Flores APRN.ETHANOL QUALITY LEADER [address] [place] [address] [facility] Internal Medicine 02/25/25 Binder Cutter Hand Relationship Specialty Start Date End Date Fiona Durant MD [address] [place] [address] PCP - General 11/23/03 Rell Barcenas MD [address] [place] [address] Physician Radiation Oncology 08/27/20 Christina Amaro, LILI [address] [place] [address] Specialty Health Coach Hematology/Oncology 09/13/20 Sandoval Burgess MD [address] [place] [address] Hematology/Oncology 05/15/23 Peggy Garcia CREDIT AND LOAN COLLECTIONS SUPERVISOR.CHANGE MANAGEMENT DIRECTOR [address] [place] [address] Bioassayist Internal Medicine 12/30/24 Bebe Flores, CREDIT AND LOAN COLLECTIONS SUPERVISOR.ETHANOL QUALITY LEADER [address] [place] [address] Bioassayist Internal Medicine 02/25/25 Binder Cutter Hand Relationship Specialty Start Date End Date Fiona Durant MD [address] [place] [address] PCP - General 11/23/03 Rell Barcenas MD [address] [place] [address] Physician Radiation Oncology 08/27/20 Christina Amaro RN [address] [place] [address] Specialty Health Coach Hematology/Oncology 09/13/20 Sandoval Burgess MD [address] [place] [address] Hematology/Oncology 05/15/23 Peggy Garcia, CREDIT AND LOAN COLLECTIONS SUPERVISOR.CHANGE MANAGEMENT DIRECTOR [address] [place] [address] Bioassayist Internal Medicine 12/30/24 Bebe Flores, CREDIT AND LOAN COLLECTIONS SUPERVISOR.ETHANOL QUALITY LEADER [address] [place] [address] Bioassayist Internal Medicine 02/25/25 Binder Cutter Hand Relationship Specialty Start Date End Date Fiona Durant MD [address] [place] [address] PCP - General 11/23/03 Rell Barcenas MD [address] [place] [address] Physician Radiation Oncology 08/27/20 Christina Amaro, LILI [address] [place] [address] Specialty Health Coach Hematology/Oncology 09/13/20 Sandoval Burgess MD [address] [place] [address] Hematology/Oncology 05/15/23 Peggy Garcia CREDIT AND LOAN COLLECTIONS SUPERVISOR.CHANGE MANAGEMENT DIRECTOR [address] [place] [address] Bioassayist Internal Medicine 12/30/24 Bebe Flores APRN.ETHANOL QUALITY LEADER [address] [place] [address] Bioassayist Internal Medicine 02/25/25 Binder Cutter Hand Relationship Specialty Start Date End Date Fiona Durant MD [address] [place] [address] PCP - General 11/23/03 Rell Barcenas MD [address] [place] [address] Physician Radiation Oncology 08/27/20 Christina Amaro, LILI [address] [place] [address] Specialty Health Coach Hematology/Oncology 09/13/20 Sandoval Burgess MD [address] [place] [address] Hematology/Oncology 05/15/23 Peggy Garcia CREDIT AND LOAN COLLECTIONS SUPERVISOR.CHANGE MANAGEMENT DIRECTOR [address] [place] [address] Bioassayist Internal Medicine 12/30/24 Bebe Flores APRN.ETHANOL QUALITY LEADER [address] [place] [address] Bioassayist Internal Medicine 02/25/25 Binder Cutter Hand Relationship Specialty Start Date End Date Fiona Duarnt MD [address] [place] [address] PCP - General 11/23/03 Rell Barcenas MD [address] [place] [address] Physician Radiation Oncology 08/27/20 Christina Amaro, LILI [address] [place] [address] Specialty Health Coach Hematology/Oncology 09/13/20 Sandoval Burgess MD [address] [place] [address] Hematology/Oncology 05/15/23 Peggy Garcia CREDIT AND LOAN COLLECTIONS SUPERVISOR.CHANGE MANAGEMENT DIRECTOR [address] [place] [address] Bioassayist Internal Medicine 12/30/24 Bebe Flores CREDIT AND LOAN COLLECTIONS SUPERVISOR.ETHANOL QUALITY LEADER [address] [place] [address] Bioassayist Internal Medicine 02/25/25 Binder Cutter Hand Relationship Specialty Start Date End Date Fiona Durant MD [address] [place] [address] PCP - General 11/23/03 Rell Barcenas MD [address] [place] [address] Physician Radiation Oncology 08/27/20 Christina Amaro RN [address] [place] [address] Specialty Health Coach Hematology/Oncology 09/13/20 Sandoval Burgess MD [address] [place] [address] Hematology/Oncology 05/15/23 Peggy Garcia, CREDIT AND LOAN COLLECTIONS SUPERVISOR.CHANGE MANAGEMENT DIRECTOR [address] [place] [address] Bioassayist Internal Medicine 12/30/24 Bebe Flores, CREDIT AND LOAN COLLECTIONS SUPERVISOR.ETHANOL QUALITY LEADER [address] [place] [address] Bioassayist Internal Medicine 02/25/25 Binder Cutter Hand Relationship Specialty Start Date End Date Fiona Durant MD [address] [place] [address] PCP - General 11/23/03 Rell Barcenas MD [address] [place] [address] Physician Radiation Oncology 08/27/20 Christina Amaro, LILI [address] [place] [address] Specialty Health Coach Hematology/Oncology 09/13/20 Sandoval Burgess MD [address] [place] [address] Hematology/Oncology 05/15/23 Peggy Garcia APRN.CHANGE MANAGEMENT DIRECTOR [address] [place] [address] Bioassayist Internal Medicine 12/30/24 Bebe Flores APRN.ETHANOL QUALITY LEADER [address] [place] [address] Bioassayist Internal Medicine 02/25/25 Binder Cutter Hand Relationship Specialty Start Date End Date Fiona Durant MD [address] [place] [address] PCP - General 11/23/03 Rell Barcenas MD [address] [place] [address] Physician Radiation Oncology 08/27/20 Christina Amaro, LILI [address] [place] [address] Specialty Health Coach Hematology/Oncology 09/13/20 Sandoval Brugess MD [address] [place] [address] Hematology/Oncology 05/15/23 Peggy Garcia APRN.CHANGE MANAGEMENT DIRECTOR [address] [place] [address] Bioassayist Internal Medicine 12/30/24 Bebe Flores, CREDIT AND LOAN COLLECTIONS SUPERVISOR.ETHANOL QUALITY LEADER [address] [place] [address] Bioassayist Internal Medicine 02/25/25 Binder Cutter Hand Relationship Specialty Start Date End Date Fiona Durant MD [address] [place] [address] PCP - General 11/23/03 Rell Barcenas MD [address] [place] [address] Physician Radiation Oncology 08/27/20 Christina Amaro, LILI [address] [place] [address] Specialty Health Coach Hematology/Oncology 09/13/20 Sandoval Burgess MD [address] [place] [address] Hematology/Oncology 05/15/23 Peggy Garcia, CREDIT AND LOAN COLLECTIONS SUPERVISOR.CHANGE MANAGEMENT DIRECTOR [address] [place] [address] Bioassayist Internal Medicine 12/30/24 Bebe Flores, CREDIT AND LOAN COLLECTIONS SUPERVISOR.ETHANOL QUALITY LEADER [address] [place] [address] Bioassayist Internal Medicine 02/25/25 Binder Cutter Hand Relationship Specialty Start Date End Date Fiona Durant MD [address] [place] [address] PCP - General 11/23/03 Rell Barcenas MD [address] [place] [address] Physician Radiation Oncology 08/27/20 Christina Amaro, LILI [address] [place] [address] Specialty Health Coach Hematology/Oncology 09/13/20 Sandoval Burgess MD [address] [place], [place] [address] Hematology/Oncology 05/15/23 Peggy Garcia CREDIT AND LOAN COLLECTIONS SUPERVISOR.CHANGE MANAGEMENT DIRECTOR [address] [place], [place] [address] Bioassayist Internal Medicine 12/30/24 Bebe Flores APRN.ETHANOL QUALITY LEADER [address] [place] [address] [facility] Internal Medicine 02/25/25 Reason for Visit (unrecogniz ed section and content) Reason Comments Radiology NM Specialty Diagnoses / Procedures Referred By Contac t Referred To Contact MOLECULAR & FUNCTIONAL IMAGING Diagnoses 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) Procedures NM PET/CT SKULL-THIGH SUBSEQUENT PET IMAGING CT ATTENUATION SKULL [place] [address] [place] [address] Molecular & Functional Imaging [address] [place] [address] Referral ID Status Reason Start Date Expiration Date V isits Requested Visits Authorized [id number] Closed Auto-Generate d Referral 04/21/2024 06/20/2024 2 2 Reason Comments Chemotherapy Treatment Specialty Diagnoses / Procedures Referred By Contac t Referred To Contact Diagnoses Cancer of trachea, bronchus, and lung (HCC) Bone metastases (HCC) Procedures INJ PEMBROLIZUMAB Study Patient [id number] Arm A&B First Line Treatment Anca Huddleston MD [address] [facility] [place] [address] José Miguel [facility] [address] [place] [address] Referral ID Status Reason Start Date Expiration Date V isits Requested Visits Authorized [id number] Authorized 09/22/2020 10/07/2022 99 99 Reason Comments Non-Chemotherapy Treatment Reason Comments Established Patient Reason Comments Appointment Reason Comments Research RECIST 1.1 Addendum Request Reason Comments Radiology CT Specialty Diagnoses / Procedures Referred By Contac t Referred To Contact CT IMAGING Diagnoses Bone metastases (HCC) Malignant neoplasm of unspecified part of unspecified bronchus or lung (HCC) Nausea Procedures CT ABDOMEN W IVCON CT ABDOMEN W/CONTRAST Anca Huddleston MD [address] [place] [address] Ct Imaging Referral ID Status Reason Start Date Expiration Date V isits Requested Visits Authorized [id number] Closed Auto-Generate d Referral 01/24/2022 03/25/2022 2 2 Reason Comments Established Patient Specialty Diagnoses / Procedures Referred By Contac t Referred To Contact CT IMAGING Diagnoses Malignant neoplasm of unspecified part of unspecified bronchus or lung (HCC) Malignant neoplasm of abdomen (HCC) Procedures CT ABDOMEN WO IVCON CT ABDOMEN W/O CONTRAST Anca Huddleston MD [address] [facility] [place] [address] Ct Imaging Referral ID Status Reason Start Date Expiration Date V isits Requested Visits Authorized [id number] Closed Auto-Generate d Referral 11/01/2021 12/31/2021 2 2 Reason Comments RECIST Measurement Reason Comments Follow Up Specialty Diagnoses / Procedures Referred By Contac t Referred To Contact Diagnoses Cancer of trachea, bronchus, and lung (HCC) Bone metastases (HCC) Procedures INJ PEMBROLIZUMAB Study Patient [id number] Arm A&B First Line Treatment Anca Huddleston MD [address] [place] [address] José Miguel [facility] [address] [place] [address] Specialty Diagnoses / Procedures Referred By Contac t Referred To Contact CT IMAGING Diagnoses Malignant neoplasm of unspecified part of unspecified bronchus or lung (HCC) Procedures CT CHEST W IVCON DIAGNOSTIC COMPUTED TOMOGRAPHY THORAX W/CONTRAST Anca Huddleston MD [address] [place] [address] Ct Imaging Referral ID Status Reason Start Date Expiration Date V isits Requested Visits Authorized [id number] Closed Auto-Generate d Referral 04/19/2022 06/18/2022 1 1 Reason Comments Patient Update Specialty Diagnoses / Procedures Referred By Contac t Referred To Contact CT IMAGING Diagnoses Malignant neoplasm of unspecified part of unspecified bronchus or lung (HCC) Procedures CT ABDOMEN W IVCON CT ABDOMEN W/CONTRAST Anca Huddleston MD [address] [place] [address] Ct Imaging Referral ID Status Reason Start Date Expiration Date V isits Requested Visits Authorized [id number] Closed Auto-Generate d Referral 04/19/2022 06/18/2022 1 1 Reason Comments RECIST Measurement Reason Comments Refill Request Reason Onset Date Comments Refill Request 07/25/2022 Reason Comments AVS Reason Comments Orders Referral ID Status Reason Start Date Expiration Date V isits Requested Visits Authorized [id number] Pending Review 09/22/2020 10/07/2022 99 99 Referral ID Status Reason Start Date Expiration Date V isits Requested Visits Authorized [id number] Authorized 09/22/2020 11/07/2022 99 99 Specialty Diagnoses / Procedures Referred By Contac t Referred To Contact Diagnoses 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) Procedures INJ PEMBROLIZUMAB Anca Huddleston MD [address] [place] [address] José Miguel [facility] [address] [place] [address] Referral ID Status Reason Start Date Expiration Date V isits Requested Visits Authorized [id number] Authorized 09/26/2022 10/05/2023 99 99 Reason Comments F/U 3 Month Reason Onset Date Comments Refill Request 11/29/2022 Reason Comments Established Patient Reason Comments Research Reason Comments Cough Productive cough x 2 weeks Reason Onset Date Comments Refill Request 01/23/2023 Reason Comments Follow Up Reason Comments Schedule Surgery Reason Comments Research RECIST;[id number] Reason Comments Results Low potassium Reason Comments Patient cancelled post op visit Reason Comments Spirometry Specialty Diagnoses / Procedures Referred By Contac t Referred To Contact [facility] Diagnoses Pulmonary emphysema, unspecified emphysema type (HCC) Procedures SPIROMETRY WITH DILATOR IF OBSTRUCTED BRNCDILAT RSPSE SPMTRY PRE&POST-BRNCDILAT Georgina Restrepo MD [address] [place] [address] [facility] [place] [address] [place] [address] Referral ID Status Reason Start Date Expiration Date V isits Requested Visits Authorized [id number] Closed Auto-Generate d Referral 03/19/2023 04/17/2024 1 1 Reason Comments Insurance Authorization Reason Comments Results Thyroid ultrasound Specialty Diagnoses / Procedures Referred By Contac t Referred To Contact Diagnoses 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) Procedures INJ PEMBROLIZUMAB Anca Huddleston [place] [address] [facility] [address] [place] [address] Reason Comments Eye Problem Bilateral eye irrita tion, blurry vision x 1 week Reason Comments Research RECIST 1.1/[id number] Reason Comments Mouth Sores States thrush starte d advair x 5 days Reason Comments COPD Established Patient Reason Comments 3 mo follow up Reason Onset Date Comments Refill Request 06/23/2023 Reason Onset Date Comments Refill Request 06/23/2023 Reason Comments Medication Problem Reason Comments Cough St x3 days Abscess Forehead x1 day Specialty Diagnoses / Procedures Referred By Contac t Referred To Contact Diagnoses 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) Procedures INJ PEMBROLIZUMAB Anca Huddleston MD [employer] [place] [address] [facility] [address] [place] [address] Referral ID Status Reason Start Date Expiration Date V isits Requested Visits Authorized [id number] Authorized 10/05/2022 10/05/2023 17 17 Reason Comments Research RECIST 1.1 Abstract Reason Comments Radiology US Specialty Diagnoses / Procedures Referred By Contac t Referred To Contact US IMAGING Diagnoses Thyroid nodule Procedures US THYROID/PARATHYROID US SOFT TISSUE HEAD & NECK REAL TIME IMGE DOCM Telly Duncan, DO [address] [place] [address] Us Imaging [facility] Referral ID Status Reason Start Date Expiration Date V isits Requested Visits Authorized [id number] Closed Auto-Generate d Referral 02/20/2023 03/21/2024 1 1 Specialty Diagnoses / Procedures Referred By Contac t Referred To Contact CT IMAGING Diagnoses Cancer of lower lobe of right lung (HCC) Examination of participant in clinical trial Procedures CT CHEST W IVCON DIAGNOSTIC COMPUTED TOMOGRAPHY THORAX W/CONTRAST Carrie Preciado APRN.CHANGE MANAGEMENT DIRECTOR [address] [place] [address] [place] [address] Referral ID Status Reason Start Date Expiration Date V isits Requested Visits Authorized [id number] Closed Auto-Generate d Referral 01/30/2023 03/31/2023 1 1 Specialty Diagnoses / Procedures Referred By Contac t Referred To Contact CT IMAGING Diagnoses Cancer of trachea, bronchus, and lung (HCC) Bone metastases Examination of participant in clinical trial Malignant neoplasm of unspecified part of unspecified bronchus or lung (HCC) Procedures CT CHEST WO IVCON DIAGNOSTIC COMPUTED TOMOGRAPHY THORAX W/O CNTRST Anca Huddleston MD [address] [place] [address] [place] [address] Referral ID Status Reason Start Date Expiration Date V isits Requested Visits Authorized [id number] Closed Auto-Generate d Referral 10/22/2022 12/21/2022 1 1 Specialty Diagnoses / Procedures Referred By Contac t Referred To Contact CT IMAGING Diagnoses Malignant neoplasm of unspecified part of unspecified bronchus or lung (HCC) Procedures CT CHEST W IVCON DIAGNOSTIC COMPUTED TOMOGRAPHY THORAX W/CONTRAST Telly Duncan, DO [address] [place] [address] [place] [address] Referral ID Status Reason Start Date Expiration Date V isits Requested Visits Authorized [id number] Closed Auto-Generate d Referral 04/28/2023 06/27/2023 2 2 Specialty Diagnoses / Procedures Referred By Contac t Referred To Contact CT IMAGING Diagnoses Malignant neoplasm of unspecified part of unspecified bronchus or lung (HCC) Procedures CT ABDOMEN W IVCON CT ABDOMEN W/CONTRAST Anca Huddleston MD [facility] [place] [address] Ct Imaging [facility] Referral ID Status Reason Start Date Expiration Date V isits Requested Visits Authorized [id number] Closed Auto-Generate d Referral 07/28/2022 09/26/2022 2 2 Specialty Diagnoses / Procedures Referred By Contac t Referred To Contact CT IMAGING Diagnoses 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, bronchus, and lung (HCC) Malignant neoplasm metastatic to bone (HCC) Examination of participant in clinical trial Procedures CT CHEST W IVCON DIAGNOSTIC COMPUTED TOMOGRAPHY THORAX W/[place] [address] [place] [address] Ct Imaging [facility] Referral ID Status Reason Start Date Expiration Date V isits Requested Visits Authorized [id number] Closed Auto-Generate d Referral 07/20/2023 09/18/2023 1 1 Reason Comments Results Reason Onset Date Comments Refill Request 09/03/2023 Reason Comments Patient Request Reason Comments Appointment Patient Update Specialty Diagnoses / Procedures Referred By Contac t Referred To Contact Radiology / RADIO PET CT [facility]BI[facility] Diagnoses PET Scan Procedures [place] [address] [place] [address] Mobile [facility] [address] [place] [address] Referral ID Status Reason Start Date Expiration Date V isits Requested Visits Authorized [id number] Ref Not Required 11/12/2023 02/10/2024 1 1 Referral ID Status Reason Start Date Expiration Date V isits Requested Visits Authorized [id number] Authorized 10/05/2022 10/07/2024 26 26 Reason Comments Research RECIST 1.1 [id number] Reason Comments Medication Question Reason Comments Recheck 3 month follow up Reason Comments Research RECIST Abstract Reason Comments Research RECIST 1.1 Referral ID Status Reason Start Date Expiration Date Visits Requested Visits Authorized [id number] Authorized Patient Cleared INN/SMCP Payor Auth Obtained 10/07/2024 26 26 Reason Onset Date Comments Refill Request 03/10/2024 Reason Onset Date Comments Refill Request 04/11/2024 Reason Comments Care Coordination Electric Wheelchair Reason Comments Research RECIST Reason Comments F/U 3 Month Reason Onset Date Comments Refill Request 07/08/2024 Reason Comments Established Patient Emphysema COPD Asthma Specialty Diagnoses / Procedures Referred By Cat t Referred To Contact MOLECULAR & FUNCTIONAL IMAGING Diagnoses Malignant neoplasm of unspecified part of unspecified bronchus or lung (HCC) Procedures NM PET/CT SKULL-THIGH SUBSEQUENT PET IMAGING CT ATTENUATION [place]ULL [place] [address] [place] [address] Molecular & Functional Imaging [address] [place] [address] Referral ID Status Reason Start Date Expiration Date V isits Requested Visits Authorized [id number] Closed Auto-Generate d Referral 09/01/2024 10/31/2024 1 1 Reason Comments Health Coach - Other Change in treat ment Reason Comments Appointment Lab apt Reason Comments Results potassium Reason Comments Cough Chest congestion, SO B, wheeze, headache, fever on and off, x 2 weeksHas COPD but has increased Ear Pain R ear pain bilat wor se x 2 weeks Reason Comments F/U 3 months F/U 3 Month Reason Comments Future Appointment Reason Comments Research RECIST [id number] Reason Comments Research CTD - Progression [id number] Reason Comments Health Coach - Other Treatment Plann ing Reason Comments AVS 10/23 Specialty Diagnoses / Procedures Referred By Conteric t Referred To Contact Diagnoses 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) Procedures CARBOPLATIN INJECTION PALONOSETRON HCL INJECTION, PEMETREXED, NOT OTHERWISE SPECIFIED, 10 MG F[place]IT[place] [address] [place] [address] José Miguel [facility] [address] [place] [address] Referral ID Status Reason Start Date Expiration Date V isits Requested Visits Authorized [id number] Pending Review 10/14/2024 01/12/2025 3 3 Reason Comments Care Coordination CYCLE 1/DAY 1 POST T REATMENT CALL Reason Comments Care Coordination Toxicity Check Reason Comments Care Coordination Follow up Symptoms Reason Comments Results (radiology) Reason Comments Radiology CT Specialty Diagnoses / Procedures [facility] Radiology / RADIO CT SCAN REPLACED BY [facility] Diagnoses Dyspnea and respiratory abnormalities [R06.00, R06.89] Procedures CTA WWO CHEST [address] [place] [address] [place] [address] Phone: tel: fax: Cat Scan [address] [place] [address] Phone: tel: fax: Referral ID Status Reason Start Date Expiration Date Visits Requested Visits Authorized [id number] Incomplete Patient Cleared - Admin/Chairm an/Director advise to proceed or did not respond 11/19/2024 02/17/2025 1 1 Reason Comments Care Coordination Follow Up Reason Comments Patient Update Dentist Reason Comments F/U 3 months Specialty Diagnoses / Procedures [facility] To Contact Diagnoses 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) Procedures CARBOPLATIN INJECTION PALONOSETRON HCL INJECTION, PEMETREXED, NOT OTHERWISE SPECIFIED, 10 MG [place]IT[place] [address] [place] [address] Phone: tel: fax: Hematology/Oncology [address] [place] [address] Phone: tel: fax: Referral ID Status Reason Start Date Expiration Date Visits Requested Visits Authorized [id number] Authorized Patient Cleared - Admin/Chairm an/Director advise to proceed or did not respond 10/14/2024 10/07/2025 99 99 Specialty Diagnoses / Procedures Referred By Contac t Referred To Contact Diagnoses 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) Procedures CARBOPLATIN INJECTION PALONOSETRON HCL INJECTION, PEMETREXED, NOT OTHERWISE SPECIFIED, 10 MG FOSAPREPITANT INJECTION Sandoval Burgess MD [address] [place] [address] Phone: tel: Hematology/Oncology [address] [place] [address] Phone: tel: fax: Reason Comments avs 02/04 Specialty Diagnoses / Procedures Referred By Contac t Referred To Contact MOLECULAR & FUNCTIONAL IMAGING Diagnoses 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) Procedures NM PET/CT SKULL-THIGH SUBSEQUENT PET IMAGING CT ATTENUATION SKULL BASE MID-THIGH Sandoval Burgess MD [address] [place] [address] Phone: tel: Molecular Imaging [address] [place] [address] Phone: tel: Referral ID Status Reason Start Date Expiration Date V isits Requested Visits Authorized [id number] Closed Auto-Generate d Referral 02/25/2025 04/26/2025 2 2 Reason Comments Follow Up 3 month follow up- m ed refills needed Reason Comments Future Appointment AVS 03/18/25 Reason Comments Bronchoscopy Scheduling- CLEARED Initial bronch request Reason Comments Established Patient EBUS, update H&P Reason Comments Appointment PreOp Bronch Reason Comments avs 04/08 Reason Comments Patient Question Reason Comments Electronic Communication Reason Comments Care Coordination Future Appointment Reason Comments Care Coordination Reason Comments Acute Visit Inactive Administered Medications - up to 3 most recent administrations Administered Medications (un recognized section and content) Medication Order MAR Action Action Date Dose Rate Site pembrolizumab 400 mg in NaCl 0.9% 74 mL (KEYTRUDA) 400 mg, INTRAVENOUS, Administer over 30 Minutes, ONCE, 1 dose, On Yane 12/13/23 at 1430, exp 0900 12/20/23 (refrigerated) Administer with 0.2 micron filter. New Bag/Syringe/Bottle 12/13/2023 2:13 PM EST 400 mg Inactive Administered Medications - up to 3 most recent administrations Medication Order MAR Action Action Date Dose Rate Site pembrolizumab 400 mg in NaCl 0.9% 74 mL (KEYTRUDA) 400 mg, INTRAVENOUS, Administer over 30 Minutes, ONCE, 1 dose, On Yane 01/24/24 at 1400, exp 1100 01/28/24 (room temp) Administer with 0.2 micron filter. New Bag/Syringe/Bottle 01/24/2024 2:03 PM EDT 400 mg FOR RECORDS PERTAINING TO PATIENTS WHO ARE OR HAVE BEEN ENROLLED IN A CHEMICAL DEPENDENCY/SUBSTANCEABUSE PROGRAM, SOME INFORMATION MAY BE OMITTED. This clinical summary was aggregated from multiple sources. Caution should be exercised in using it in the provision of clinical care. This summary normalizes information from multiple sources, and as a consequence, information in this document may materially change the coding, format and clinical context of patient data. In addition, data may be omitted in some cases. CLINICAL DECISIONS SHOULD BE BASED ON THE PRIMARY CLINICAL RECORDS. [facility] [employer] [facility] provides no warranty or guarantee of the accuracy or completeness of information in this document.
--- OUTSIDE RECORDS SUMMARY | 2025-04-27 23:15 | XMS RPT_ITS | CCD ---
Author Organization [facility] CliniSyme Care Team Providers Care Early Childhood Lead Teacher Name Role Phone Fiona Durant MD Primary [...] Fiona Durant MD Primary Care Provider Flores SOLUTIONS DEVELOPMENT ANALYST.CAMP RECREATION SPECIALIST, Bebe Unavailable Radha SOLUTIONS DEVELOPMENT ANALYST.ENERGY EFFICIENT SITE MANAGER, Peggy Unavailable Radha SOLUTIONS DEVELOPMENT ANALYST.ENERGY EFFICIENT SITE MANAGER, Peggy Alena Unavailable Radha SOLUTIONS DEVELOPMENT ANALYST.ENERGY EFFICIENT SITE MANAGER, Peggy Unavailable Radha SOLUTIONS DEVELOPMENT ANALYST.ENERGY EFFICIENT SITE MANAGER, Peggy Unavailable Radha SOLUTIONS DEVELOPMENT ANALYST.ENERGY EFFICIENT SITE MANAGER, Peggy Unavailable Therese Burris Attending Unavail able Therese Burris Referring Unavail able Talampas, Fiona D Primary Care Unavailable Jeannie, Les Attending Unavailable Jeannie, [place] Referring Unavailable Podlogar WATCH CRYSTAL MOLDER, Felicia Primary Care Unavailable Therese Burris Attending Unavail able Podlogar WATCH CRYSTAL MOLDER, Felicia Referring Unavailable Talampas, Fiona D Primary Care Unavailable Therese Burris Attending Unavail able Podlogar WATCH CRYSTAL MOLDER, Felicia Primary Care Unavailable Talampas, Fiona D Referring Unavailable Jeannie, Les Attending Unavailable Talampas, Fiona D Primary Care Unavailable hTerese Burris Attending Unavail able Podlogar WATCH CRYSTAL MOLDER, Felicia Referring Unavailable Talampas, Fiona D Primary Care Unavailable Flores SOLUTIONS DEVELOPMENT ANALYST.CAMP RECREATION SPECIALIST, Bebe Unavailable [phone] SANDOVAL BURGESS Referring Unavailable TALAMPAS, FIONA D [...] Unavailable TALAMPAS, FIONA D Primary Care Unavailable LOW SEE-JUAN Admitting Unavailable JACKSON, SEE-JUAN Attending Unavailable TALAMPAS, FIONA D Primary [...] Unavailable TALAMPAS, FIONA D Primary Care Unavailable ABRAMSANDOVAL CRUZ Referring Unavailable TALAMPAS, FIONA D Primary Care Unavailable TALAMPAS, FIONA D Primary Care Unavailable CARRIE PRECIADO Attending Unavailable TALAMPAS, FIONA D Primary Care Unavailable ABRAMOVICSANDOVAL Smith Referring Unavailable TALAMPAS, FIONA D Primary Care Unavailable TALAMPAS, FIONA D Primary Care Unavailable ABRAMOVICSarah, SANDOVAL Attending Unavailable TALAMPAS, FIONA D Primary Care Unavailable Talampas , Dr. Fiona Gill Primary Care Provider Therese Burris Attending Provider [phone] Podlogar WATCH CRYSTAL MOLDER-CFelicia Referring Provider Dr. Yaya Arndt DO Emergency Provider Mo MATHUR, Dr. Preciado Admit Provider [phone] Mo MATHUR, Dr. Preciado Attending Provider Allergies Allergy Classification Reported Allergen(s) Allergy Type Date of Onset Reaction(s) Facility Amoxicillin / Clavulanate (3 sources) Amoxicillin / Clavulanate Drug Allergy 09-11-2005 Diarrhea [facility] Work Phone: Penicillins (antibiotic) (3 sources) Penicillins Drug Allergy 11-20-2012 [facility] (20 sources) Amoxicillin / Clavulanate; Translations: [AMOXICILLIN-POT CLAVULANATE] Drug Allergy 09-11-2005 Diarrhea [facility] Work Phone: (20 sources) Penicillins; Translations: [PENICILLINS] Drug Allergy 11-20-2012 [facility] Work Phone: (20 sources) Penicillins Drug Allergy 11-20-2012 [facility] Work Phone: (20 sources) Penicillins Drug Allergy 11-20-2012 [facility] (2 sources) Amoxicillin Drug Allergy 01-29-2025 [facility] (1 source) Penicillins Drug allergy (disorder) 01-29-2025 [facility] (2 sources) Potassium Drug Allergy 01-29-2025 [facility] (1 source) Penicillins Allergy to substance 04-27-2025 [facility] Medications Current Medications Medication Drug Class(es) Dates Sig (Normalized) Sig (Original) acetaminophen 325 mg / oxyCODONE hydrochloride 10 mg oral tablet (20 sources) Opioid Agonist Start: 01-29-2025 Oxycodone-Acetamin ophen 10-325 mg tablet Active 1 {tbl} PO EVERY 4 HOURS as needed for pain 0 January 29, 2025 12:00am Start: 01-12-2022 End: 01-29-2025 Oxycodone-Acetaminophen 5-32 5 mg tablet Discontinued 1 {tbl} PO Q8H as needed 0 January 12, 2022 12:00am January 29, 2025 1:59pm Start: 08-05-2021 End: 05-08-2022 take 1 tablet by mouth every twenty-four hours as needed oxyCODONE-acetaminophen (PERCOCET) 5-325 mg [...] th at bedtime as needed. PALLIATIVE PATIENT albuterol 0.83 mg/ml inhalation solution (20 sources) beta2-Adrenergic Agonist Start: 01-29-2025 Albuterol Sulfate 2.5 mg /3 mL (0.083 %) solution for nebulization Active 2.5 mg continuous nebulization EVERY 6 HOURS as needed for wheezing January 29, 2025 12:00am Start: 06-25-2023 End: 02-25-2025 take 2 puff(s) [...] 3 ml. 90 mL 1 02/20/2024 Active Start: 03-04-2014 Albuterol Sulf ate 18 GM HFA aerosol inhaler Active 2 NMA INHALATION NEEDED as needed for Shortness Of Breath March 04, 2014 12:00am Comment on above: Use 3 mL via [...] suspension (20 sources) Start: 10-24-19 End: 02-20-20 take 15 mL by mouth every six hours as needed aluminum-magnesium hydroxide-simethic one 200-200-20 mg/5 mL suspension Take 15 mL by mouth every 6 hours as needed. 02/20/2024 Active Comment on above: Take 15 mL by mouth every 6 hours as needed. aspirin 81 mg delayed release oral tablet (20 sources) Platelet Aggregation Inhibitor, Nonsteroidal Anti-inflammatory Drug Start: 10-10-19 End: 12-01-19 take 1 tablet by mouth once daily aspirin, enteric coated (ASPIRIN, ENTERIC COATED) 81 mg EC tablet Take 1 tablet by mouth once daily. 30 tablet 11 12/01/2024 Active Comment on above: Take 81 mg by mouth once daily. Take 1 tablet by serjio once daily. benzonatate 100 mg oral capsule (20 sources) Non-narcotic Antitussive Start: 03-18-20 take 1 capsule by mouth every eight hours as needed benzonatate (TESSALON PERLE) 100 mg capsule Take 1 capsule by mouth three times a day as needed. 90 capsule 2 03/18/2025 Active Start: 01-29-2025 take 2 capsules by m outh three times daily as needed for cough Benzonatate 100 mg capsule Active 200 mg PO THREE TIMES A DAY as needed for cough January 29, 2025 12:00am Start: 04-14-2024 End: 12-01-2024 benzonatate (TESSALON PERLE) [...] needed. 30 capsule 0 01/25/2023 02/01/2023 Discontinued Start: 02-13-2018 End: 10-23-2019 take 1 capsule by mouth three times daily Benzonatate 100 MG capsule Discontinued 100 mg PO THREE TIMES A DAY February 13, 2018 12:00am October 23, 2019 2:07pm End: 01-25-2023 benzonatate (TESSALON PERLE) 100 mg [...] mg/ml ophthalmic solution (20 sources) Star t: 0510-27 25 carboxymethylcellulose (REFRESH) 0.5 % drop Use 1 drop in both eyes as needed (dry eyes). 30 mL 5 02/25/2025 Active celecoxib 100 mg oral capsule (1 source) Nonsteroidal Anti-inflammatory Drug Star t: 2 10-27 25 take 1 capsule by mouth every twenty-four hours Celecoxib 100 mg capsule Active 100 mg PO Q24H April 27, 2025 12:00am cyclobenzaprine hydrochloride 10 mg oral tablet (20 sources) Muscle Relaxant Star t: 040 - 22 take 1 tablet by mouth twice daily as needed for pain Cyclobenzaprine 10 mg tablet Active 10 mg PO TWICE A DAY as needed for pain January 12, 2022 10:52am Start: 07-05-2020 End: 01-12-2022 Cyclobenzaprine 10 mg tablet Discontinued NMA PO July 05, 2020 12:00am January 12, 2022 11:00am Comment on above: Take 10 mg by mouth twice daily as needed for Muscle Spasm. doxycycline hyclate 100 mg oral tablet (3 sources) Tetracycline-cla ss Drug Start: 10-05-2024 End: 10-15-2024 take 1 tablet by mouth twice daily [...] (20 sources) Proton Pump Inhibitor Start: 02-20-20 End: 02-26-20 take 1 capsule by mouth once daily before breakfast esomeprazole (NEXIUM) 20 mg capsule Take 1 capsule by mouth daily before breakfast. 1/2 hr before meal. 90 capsule 3 02/25/2025 Active Esomeprazole Magnesium 20 mg capsule,delayed release(DR/EC) (1 source) Start: 01-30-20 take 1 capsule by mouth once daily in the morning Esomeprazole Magnesium 20 mg capsule,delayed release(DR/EC) Active 20 mg PO EVERY MORNING January 29, 2025 12:00am fluticasone propionate 0.05 mg/actuat metered dose nasal spray (20 sources) Corticosteroid Start: 07-05-20 take 50 ug nasal route once daily as needed Fluticasone Propionate (Flonase Allergy Relief) 50 mcg/actuation spray,suspension Active 2 NMA INTRANASAL DAILY as needed for allergy symptoms July 05, 2020 12:00am administer into each nostril Start: 09-16-2018 End: 02-25-2025 take 2 spray(s) by mouth once daily fluticasone (FLONASE) 50 mcg/actuation nasal spray Use 2 sprays in each nostril once daily. Rinse mouth after use 16 g 5 02/25/2025 Active Comment on above: Use 2 Sprays in each nostril once daily. Rinse mouth after use. Use 2 Sprays in each nostril once daily. Rinse mouth after use Fluticasone Propion-Salmeterol (20 sources) Corticosteroid, beta2-Adrenergic Agonist Start: 01-29-2025 Fluticasone Propion-Salmeterol (Advair Diskus) 500-50 mcg/dose blister with device Active 1 NMA INHALATION TWICE A DAY January 29, 2025 12:00am Start: 09-11-2024 take 1 puff(s) by mo uth twice daily fluticasone-salmeterol (ADVAIR DISKUS) 500-50 mcg/dose dsdv Inhale 1 Puff as instructed two times a day. RINSE AND GARGLE MOUTH WITH WATER AFTER EACH USE. 1 Each 09/11/2024 Active Start: 02-20-2024 End: 09-11-2024 take 1 puff(s) by mouth twice daily fluticasone-salmeterol (ADVAIR DISKUS) 250-50 mcg/dose inhaler Indications: Stage 3 severe COPD by GOLD classification ([facility]) Inhale 1 Puff as instructed two times [...] Start: 10-05-2023 take 1 puff(s) by mo ut twice daily fluticasone-salmeterol (ADVAIR DISKUS) 250-50 mcg/dose inhaler Indications: Stage 3 severe COPD by GOLD classification (HCC) Inhale 1 Puff as instructed two times a day. RINSE AND GARGLE MOUTH WITH WATER AFTER EACH USE. 1 Each 5 10/05/2023 Active Start: 06-25-2023 take 1 puff(s) [...] Start: 03-21-2023 take 1 puff(s) by mo [facility] twice daily fluticasone-salmeterol (ADVAIR DISKUS) 250-50 [...] 1 mg oral tablet (20 sources) Start: 01-29-2025 take 1 tablet by mouth once daily Folic Acid 1 mg tablet Active 1 mg PO daily January 29, 2025 12:00am Start: 10-23-2024 End: 01-13-2025 take 1 tablet by mouth once daily folic acid 1 mg tablet Indications: 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) Take 1 tablet by mouth once daily. 30 tablet 3 01/13/2025 Active furosemide 20 mg oral tablet (20 sources) Loop Diuretic Start: 04-14-2024 End: 02-25-2025 take 20-40 mg by mouth once daily as needed for edema Furosemide 20 mg tablet Active 20 - 40 mg PO daily as needed for edema January 29, 2025 12:00am Start: 08-15-2023 End: 04-11-2024 take 1-2 tablets by mouth once daily as needed furosemide (LASIX) 20 mg tablet Take 1-2 tablets by mouth once daily as needed. 60 tablet 1 11/28/2023 Active Comment on above: Take 1-2 tablets by mouth once daily as needed. hydroCHLOROthiazide 25 mg oral tablet (20 sources) Thiazide Diuretic Start: End: take 1 tablet by mouth once daily Hydrochlorothiazide 25 mg tablet Active 25 mg PO DAILY 90 3 May 08, 2024 2:53pm Start: 09-22-2021 End: 05-08-2024 take 1 tablet by mouth once daily as needed for edema hydroCHLOROthiazide 25 mg tablet Take 1 tablet by mouth once daily as needed (fluid retention/leg swelling). 30 tablet 3 06/25/2023 Active Comment on above: Take 1 tablet by serjio th once daily as needed (fluid retention/leg swelling). levoFLOXacin 500 mg oral tablet (8 sources) Quinolone Antimicrobial Start: 04-24-20 End: 05-01-20 take 1 tablet by mouth once daily Levofloxacin 500 mg tablet Active 500 mg PO DAILY April 27, 2025 12:00am Start: 02-01-2023 End: 02-08-2023 take 1 tablet [...] daily for 7 days. Take with food multivitamin tablet (20 sources) Start: 07-09-2024 take [...] 1 tablet by serjio th once daily. Multivitamin With Folic Acid (Daily-Nettie (With Folic Acid)) 400 mcg tablet (1 source) Start: 01-29-2025 Multivitamin With Folic Acid (Daily-Nettie (With Folic Acid)) 400 mcg tablet Active 1 {tbl} PO daily January 29, 2025 12:00am mupirocin 20 mg/ml topical cream (3 sources) [...] asthma without complication (primary encounter diagnosis) nystatin [id number] unt/ml oral suspension (20 sources) Polyene Antifungal [...] 4 times daily until gone. potassium chloride 20 meq powder for oral solution (20 sources) Start: 01-29-2025 take 20 mEq by mouth twice daily Potassium Chloride 20 mEq packet Active 20 meq PO TWICE A DAY January 29, 2025 2:01pm Start: 01-12-2022 End: 01-29-2025 take 40 mEq by mouth once daily Potassium Chloride 20 mEq packet Discontinued 40 meq PO DAILY January 12, 2022 12:00am January 29, 2025 2:10pm Start: 06-27-2021 End: 09-30-2024 take 20 mEq by mouth twice daily potassium chloride (KLOR-CON) 20 mEq packet Take 20 mEq by mouth two times a day. 60 Packet 11 09/30/2024 Active Start: 08-27-2020 End: 01-12-2022 take 2 tablets by mouth once daily Potassium Chloride 20 MEQ tablet Discontinued 40 meq PO DAILY 10 0 August 27, 2020 1:00am January 12, 2022 10:56am Comment on above: Take 20 mEq by mouth twice daily. predniSONE 10 mg oral tablet (20 sources) Start: 04-27-2025 Prednisone 10 mg tablet Active 0 PO .COMPLEX April 27, 2025 12:00am TAKE 4 TABLETS BY MOUTH ONCE DAILY for 3 days, then 3 tablets for 3 days, then 2 tablets for 3 days, then 1 tablet for 3 days; TAPER Start: 04-24-2025 predniSONE (DE LTASONE) 10 mg tablet Take 40 mg a [...] three days. prochlorperazine 10 mg oral tablet (5 sources) Phenothiazine Start: take 1 tablet by mouth every six hours as needed Prochlorperazine Maleate 10 mg tablet Active 10 mg PO EVERY 6 HOURS NEEDED April 27, 2025 12:00am Start: 04-16-2025 take 1 tablet by serjio th every six hours as needed prochlorperazine (COMPAZINE) 10 mg tablet Take 1 tablet by mouth every 6 hours as needed. 30 tablet 2 04/16/2025 Active rosuvastatin calcium 40 mg oral tablet (20 sources) HMG-CoA Reductase Inhibitor Start: 03-15-2021 End: 02-25-2025 take 1 tablet by mouth once daily Rosuvastatin 40 mg tablet Active 40 mg PO DAILY January 12, 2022 12:00am Start: 10-25-2020 End: 01-12-2022 take 1 tablet by mouth once daily Rosuvastatin (Crestor) 10 mg tablet Discontinued 10 mg PO DAILY October 25, 2020 1:00am January 12, 2022 10:55am Start: 07-05-2020 End: 01-11-2021 take 1 tablet by mouth once daily Rosuvastatin 40 mg tablet Discontinued 40 mg PO DAILY July 05, 2020 12:00am January 11, 2021 11:33am Comment on above: Take 1 tablet by serjio once daily. Sennosides (Natural Senna Laxative) 8.6 mg tablet (1 source) Start: 5 Sennosides (Natural Senna Laxative) 8.6 mg tablet Active 17.2 mg PO TWICE A DAY January 29, 2025 12:00am sennosides, retirement 8.6 mg oral tablet (20 sources) Start: 1 End: 3 take 2 tablets by mouth twice daily senna (SENOKOT) 8.6 mg tab Take 2 tablets by mouth twice daily. 60 tablet 2 10/24/2022 Active Comment on above: Take 2 tablets by mo [facility] twice daily. traZODone hydrochloride 50 mg oral tablet (20 sources) Serotonin Reuptake Inhibitor Start: 0 End: 5 take 1 tablet by mouth at bedtime as needed traZODone (DESYREL) 50 mg tablet Indications: Fibromyalgia Take 1 tablet by mouth at bedtime as needed. 30 tablet 11 02/20/2024 Active Start: 02-13-2018 End: 10-23-2019 take 1 tablet by mouth at bedtime Trazodone 50 MG tablet Discontinued 50 mg PO AT BEDTIME February 13, 2018 12:00am October 23, 2019 2:08pm Comment on above: [facility]. 30 actuat umeclidinium 0.0625 mg/actuat dry powder inhaler (20 sources) Anticholinergic Start: 025 take 62.5 ug by inhalation once daily Umeclidinium (Incruse Ellipta) 62.5 mcg/actuation blister with device Active 1 NMA INHALATION daily January 29, 2025 12:00am Start: 04-14-2024 End: 09-11-2024 take 1 puff(s) by inhalation once daily umeclidinium (INCRUSE ELLIPTA) 62.5 mcg/actuation inhaler Inhale 1 Puff as instructed once daily. 1 Each 11 09/11/2024 Active Start: 10-05-2023 End: 04-11-2024 take 1 puff(s) by inhalation once daily umeclidinium (INCRUSE ELLIPTA) 62.5 mcg/actuation inhaler Inhale 1 Puff as instructed once daily. 1 Each 10/05/2023 04/11/2024 Discontinued Start: 03-21-2023 take 1 puff(s) by in halation once daily umeclidinium (INCRUSE ELLIPTA) 62.5 mcg/actuation inhaler Inhale 1 Puff as instructed once daily. 1 Each 03/21/2023 Active Comment on above: Inhale 1 Puff as ins tructed once daily. 24 hr verapamil hydrochloride 120 mg extended release oral capsule (20 sources) Calcium Channel Marybeth Start: 10-10-2019 End: 07-19-2022 verapamil ER (VERELAN) 120 mg 24 hr capsule Verapamil Verapamil Hcl Active 0 MG DAILY October 10, 2019 7:53am 10-10-2019 [facility] ([id number]) 0 10/10/2019 07/19/2022 Discontinued Start: 10-10-2019 End: 02-25-2025 take 1 capsule by mouth once daily Verapamil 120 mg capsule,ext rel. pellets 24 hr Active 120 mg PO DAILY May 08, 2024 2:54pm Comment on above: Verapamil Verapamil Hcl Active 0 MG DAILY October 10, 2019 7:53am 10-10-2019 [facility] ([id number]) Take 1 capsule by mo [facility] once daily. Completed/Discontinued Medications Medication Drug Class(es) Dates Sig (Normalized) Sig (Original) acetaminophen 300 mg / codeine phosphate 30 mg oral tablet (15 sources) Opioid Agonist Start: 02-25-2025 End: 03-03-2025 [...] severe cough 42 tablet 0 12/26/2021 01/02/2022 Start: 07-05-2020 End: 01-29-2025 Acetaminophen-Codeine 300-30 mg tablet Discontinued 1 {tbl} PO as needed March 19, 2023 3:18pm January 29, 2025 2:07pm Comment on above: Take every 4 hours a s needed for severe cough Take every 4 hours a s needed for severe cough (will call when needs refill since still has some left from January prescription) acetaminophen 325 mg / HYDROcodone bitartrate 5 mg oral tablet (1 source) Opioid Agonist Start: 02-18-20 End: 02-21-20 Hydrocodone-Acetamin ophen 1 TABLET tablet Discontinued 1 {tbl} PO EVERY 6 HOURS NEEDED as needed for Pain 10 3 0 February 17, 2019 12:00am February 19, 2019 12:00am February 20, 2019 12:06am Acute right-sided low back pain with sciatica Lumbago with sciatica, unspecified side atorvastatin 80 mg oral tablet (3 sources) HMG-CoA Reductase Inhibitor Start: 10-10-19 End: 01-12-20 take 1 tablet by mouth at bedtime Atorvastatin 80 mg tablet Discontinued 80 mg PO AT BEDTIME 90 3 January 12, 2020 9:20am January 11, 2021 11:33am azithromycin 250 mg oral tablet (20 sources) Macrolide Antimicrobial Start: 11-14-19 End: 01-14-20 azithromycin (ZITHROMAX Z-TU) 250 mg tablet TAKE [...] above: Take 1 tablet by serjio once daily for 7 days. TAKE 2 TABS ON THE FIRST DAY, THEN ONE TAB DAILY FOR 4 DAYS. CARBOplatin 643.5 mg in NaCl 0.9% 339.35 mL (PARAPLATIN) (1 source) Start: 10-30-19 End: 10-30-19 643.5 mg (Target AUC = 5), INTRAVENOUS, Administer over 30 Minutes, ONCE, 1 dose, On Yane 10/30/24 at 1030, exp 0910/31/24 (room temp) Hazardous Chemotherapy Drug: Use appropriate PPE. Antineoplastic Irritant. cetirizine hydrochloride 10 mg oral tablet (2 sources) Histamine-1 Receptor Antagonist Start: 01-13-20 End: 01-30-20 take 1 tablet by mouth once daily as needed Cetirizine 10 mg tablet Discontinued 10 mg PO DAILY as needed January 12, 2022 10:51am January 29, 2025 2:07pm Start: 07-05-2020 End: 01-12-2022 Cetirizine 10 mg tablet Disc ontinued {tbl} PO July 05, 2020 12:00am January 12, 2022 11:00am clopidogrel 75 mg oral tablet (1 source) [id number] Platelet Inhibitor Start: 07-05-2020 End: 10-25-2020 take 1 tablet by mouth once daily Clopidogrel 75 mg tablet Discontinued 75 mg PO DAILY 30 July 05, 2020 12:00am October 25, 2020 5:08pm 1 ml dexamethasone phosphate 10 mg/ml injection [...] 10/30/24 at 0930, Administer over 5 minutes. diclofenac sodium 0.01 mg/mg topical gel (20 sources) Nonsteroidal Anti-inflammatory Drug Start: 01-29-2025 End: 04-27-2025 Diclofenac Sodium 1 % gel Discontinued 2 NMA TOPICAL 4 TIMES DAILY as needed January 29, 2025 12:00am April 27, 2025 4:09pm Start: 10-24-2022 End: 02-20-2024 apply 2 g topically four times daily [...] times daily as needed (upper extremity joint(s)). dicyclomine hydrochloride 10 mg oral capsule (1 source) Anticholinergic Start: 2019 End: 2024 take 1 capsule by mouth twice daily as needed Dicyclomine 10 mg capsule Discontinued 10 mg PO TWICE A DAY as needed July 05, 2020 12:00am January 29, 2025 2:08pm docusate sodium 100 mg oral capsule (20 sources) Start: 2015 End: 2023 take 1 capsule by mouth once daily as needed docusate sodium (COLACE) 100 mg capsule Indications: Constipation, unspecified constipation type Take 1 capsule by mouth once daily as needed. 30 capsule 5 04/19/2016 02/20/2024 Discontinued Comment on above: Take 1 capsule by [facility] once daily as needed. 30 actuat fluticasone furoate 0.1 mg/actuat / umeclidinium 0.0625 mg/actuat / vilanterol 0.025 mg/actuat dry powder inhaler (17 sources) Anticholinergic, Corticosteroid, beta2-Adrenergic Agonist Start: 2022 End: 2022 take 1 puff(s) by inhalation once daily fluticasone-umeclidi n-vilanter (TRELEGY ELLIPTA) 100-62.5-25 mcg inhalation powder Indications: Stage 3 severe COPD by GOLD classification (HCC) Inhale 1 Puff as instructed once daily. 1 Each 06/20/2023 06/25/2023 Discontinued Comment on above: Inhale 1 Puff as ins tructed once daily. 120 actuat formoterol fumarate 0.0048 mg/actuat / glycopyrrolate 0.009 mg/actuat metered dose inhaler (1 source) beta2-Adrenergic Agonist Start: 2019 End: 2021 Glycopyrrolate-Formo terol (Bevespi Aerosphere) 9-4.8 mcg HFA aerosol inhaler Discontinued 2 NMA INHALATION TWICE A DAY July 05, 2020 12:00am January 12, 2022 10:52am 120 actuat formoterol fumarate 0.005 mg/actuat / mometasone furoate 0.2 mg/actuat metered dose inhaler (1 source) Corticosteroid, beta2-Adrenergic Agonist Start: 2017 End: 2019 Mometasone-Formotero l 0 HFA aerosol inhaler Discontinued 2 INHALER INHALATION TWICE A DAY October 15, 2017 1:00am July 05, 2020 2:34pm fosaprepitant 150 mg in NaCl 0.9% 250 mL (EMEND) (4 sources) Start: 2024 End: 2024 150 mg, INTRAVENOUS, Administer over 30 Minutes, ONCE, 1 dose, On Yane 02/05/25 at 1330, Approximate Total Volume = 280 mL Refrigerate Start: 01-14-2025 End: 01-14-2025 150 mg, INTRAVENOUS, Adminis ter over 30 Minutes, ONCE, 1 dose, On Sun01/14/25 at 1230, Approximate Total Volume = 280 mL Refrigerate Start: 12-25-2024 End: 12-25-2024 150 mg, INTRAVENOUS, Adminis ter over 30 Minutes, ONCE, 1 dose, On Yane 12/25/24 at 1330, Refrigerate Start: 10-30-2024 End: 10-30-2024 150 mg, INTRAVENOUS, Adminis ter over 30 Minutes, ONCE, 1 dose, On Yane 10/30/24 at 0930, Approximate Total Volume = 280 mL Refrigerate ibuprofen 800 mg oral tablet (20 sources) Nonsteroidal Anti-inflammatory Drug Start: 07-05-2021 End: 04-27-2025 take 1 tablet by mouth every eight hours as needed for pain Ibuprofen 800 mg tablet Discontinued 800 mg PO EVERY 8 HOURS as needed for pain January 29, 2025 12:00am April 27, 2025 4:10pm Comment on above: Take 1 tablet by mouth every 8 hours as needed for fever (specify). Does not take in same day as when takes naproxen Take 1 tablet by serjio th every 8 hours as needed for Pain. (not for migraines and not in same day as naprosyn) Take with food. iv contrast (will be provided with radiology [...] (20 sources) Angiotensin Converting Enzyme Inhibitor Start: 0 End: 3 take 1 tablet by mouth once daily lisinopril (ZESTRIL, PRINIVIL) 5 mg tablet Indications: ST elevation myocardial infarction involving right coronary artery (HCC) Take 1 tablet by mouth once daily. 30 tablet 11 07/19/2022 10/24/2022 Discontinued Comment on above: Take 1 tablet by serjio th once daily. losartan potassium 50 mg oral tablet (20 sources) Angiotensin 2 Receptor Marybeth Start: 4 End: 5 take 1 tablet by mouth once daily Losartan 25 mg tablet Active 25 mg PO daily January 29, 2025 12:00am Start: 06-25-2023 End: 04-11-2024 take 1 tablet by mouth once daily losartan (COZAAR) 25 mg tablet Indications: History of OR (myocardial infarction) Take 1 tablet by mouth once daily. 90 tablet 3 06/25/2023 04/11/2024 Discontinued Start: 03-19-2023 End: 01-29-2025 Losartan (Cozaar) 50 mg tabl et Discontinued 25 mg PO DAILY 90 3 May 08, 2024 2:54pm January 29, 2025 2:03pm Start: 10-24-2022 End: 06-23-2023 take 1 tablet by mouth once daily losartan (COZAAR) 25 mg tablet Indications: History of OR (myocardial infarction) Take 1 tablet by mouth once daily. 90 tablet 3 10/24/2022 06/23/2023 Discontinued Start: 07-05-2020 End: 10-25-2020 Losartan 25 mg tablet Discon tinued 12.5 mg PO DAILY July 05, 2020 12:00am October 25, 2020 5:07pm Start: 10-23-2019 End: 11-10-2019 Losartan 25 mg tablet Discon tinued 12.5 mg PO DAILY 16 October 23, 2019 2:10pm November 10, 2019 5:04pm Start: 10-10-2019 End: 10-23-2019 take 1 tablet by mouth once daily Losartan 25 MG tablet Discontinued 25 mg PO DAILY 90 0 October 10, 2019 1:00am October 23, 2019 2:11pm Comment on above: Take 1 tablet by serjio th once daily. methylPREDNISolone (8 sources) Corticosteroid Start: 04-08-2025 End: 04-14-2025 methylPREDNISolone (MEDROL, TU,) [...] per package. 21 tablet 11/19/2024 11/25/2024 Active montelukast 10 mg oral tablet (1 source) Leukotriene Receptor Antagonist Start: 02-13-2018 End: 07-05-2020 take 1 tablet by mouth once daily Montelukast 10 MG tablet Discontinued 10 mg PO DAILY February 13, 2018 12:00am July 05, 2020 2:36pm naloxone hydrochloride 40 mg/ml nasal spray (20 [...] alternating nostrils until medical assistance is available Naloxone 4 mg/actuation spray,non-aerosol (1 source) Start: 01-29-2025 End: 04-27-2025 Naloxone 4 mg/actuation spray,non-aerosol Discontinued INTRANASAL January 29, 2025 12:00am April 27, 2025 4:11pm 24 hr nicotine 0.875 mg/hr transdermal system (1 source) Cholinergic Nicotinic Agonist Start: 10-10-2019 End: 10-23-2019 apply 21 mg transdermal route once daily Nicotine 21 MG patch Discontinued 21 mg TRANSDERM. DAILY 30 0 October 10, 2019 1:00am October 23, 2019 2:08pm Nystatin 100,000 unit/mL suspension (1 source) Start: 01-29-2025 End: 04-27-2025 Nystatin 100,000 unit/mL suspension Discontinued PO January 29, 2025 12:00am April 27, 2025 2:25pm omeprazole 20 mg delayed release oral capsule (20 sources) Proton Pump Inhibitor Start: 10-06-2021 End: 05-08-2022 take 1 capsule by mouth once daily before breakfast omeprazole (PRILOSEC) 20 mg capsule Take 1 capsule by mouth daily before breakfast. 1/2 hr before meal. 90 capsule 3 10/06/2021 05/08/2022 Discontinued Comment on above: Take 1 capsule by mo [facility] daily before breakfast. 1/2 hr before meal. oxyCODONE hydrochloride 10 mg oral tablet (5 sources) Opioid Agonist Start: 03-23-2022 End: 05-08-2022 take 1 tablet by mouth every twenty-four hours as needed oxyCODONE IR (ROXICODONE) 10 mg tab Take 1 tablet by mouth at bedtime as needed. 0 03/23/2022 05/08/2022 Discontinued Comment on above: [facility] 5 ml palonosetron 0.05 mg/ml injection (4 sources) Serotonin-3 Receptor Antagonist Start: 02-05-2025 End: 02-05-2025 0.25 mg, INTRAVENOUS, ONCE, 1 dose, On Yane 02/05/25 at 1330, Flush IV line with NS prior to and following administration. Start: 01-14-2025 End: 01-14-2025 0.25 mg, INTRAVENOUS, ONCE, 1 dose, On Sun01/14/25 at 1230, Flush IV line with NS prior to and following administration. Start: 12-25-2024 End: 12-25-2024 0.25 mg, INTRAVENOUS, ONCE, 1 dose, On Yane 12/25/24 at 1330, Flush IV line with NS prior to and following administration. Start: 10-30-2024 End: 10-30-2024 0.25 mg, INTRAVENOUS, ONCE, 1 dose, On Yane 10/30/24 at 0930, Flush IV line with NS prior to and following administration. 4 ml pembrolizumab 25 mg/ml injection (1 source) Programmed Receptor-1 Blocking Antibody Start: 01-11-2021 End: 01-29-2025 Pembrolizumab (Keytruda) 25 mg/mL solution Discontinued mg .Route .q3wks January 11, 2021 12:00am January 29, 2025 2:08pm per dr. huddleston pembrolizumab 400 mg in NaCl 0.9% 74 mL (KEYTRUDA) (5 sources) Start: 08-21-2024 End: 08-21-2024 400 mg, INTRAVENOUS, Administer over 30 Minutes, [...] On Yane 02/05/25 at 1400, exp 0830 5/2/25 (room temp) Hazardous Chemotherapy Drug: Use appropriate PPE. Start: 01-14-2025 End: 01-14-2025 970 mg (500 mg/m2 1.94 m2 Or daniel-specific BSA), INTRAVENOUS, Administer over 10 Minutes, ONCE, 1 dose, On 01/14/25 at 1300, exp 1700 01/15/25 (room temp) [...] temp) Hazardous Chemotherapy Drug: Use appropriate PPE. polyethylene glycol 3350 57685 mg powder for oral solution (20 sources) Osmotic Laxative Start: 08-29-2017 End: 04-27-2025 Polyethylene Glycol 3350 (Miralax) 17 gram/dose powder Discontinued 17 g PO DAILY as needed July 05, 2020 12:00am April 27, 2025 4:11pm Comment on above: Take 17 g by mouth o nce daily. NOT NEEDING NOW polymyxin b 33429 unt/ml / trimethoprim 1 mg/ml ophthalmic solution (3 sources) Dihydrofolate Reductase Inhibitor Antibacterial, Polymyxin-class Antibacterial Start: 04-17-2022 End: 04-22-2022 take 1 drop(s) into the eye(s) every four hours trimethoprim-polymy celso (POLYTRIM) 10,000 unit- 1 mg/mL ophthalmic solution Indications: Acute conjunctivitis of both eyes, unspecified acute conjunctivitis type Use 1 Drop in both eyes every 4 hours for 5 days. 1.5 mL 0 04/17/2022 04/22/2022 Comment on above: Use 1 Drop in both e yes every 4 hours for 5 days. promethazine hydrochloride 25 mg oral tablet (20 sources) Phenothiazine Start: 01-29-2025 End: 04-27-2025 take 1 tablet by mouth every six hours as needed for nausea Promethazine 25 mg tablet Discontinued 25 mg PO EVERY 6 HOURS as needed for nausea/vomiting January 29, 2025 12:00am April 27, 2025 2:25pm Start: 01-10-2021 End: 12-01-2024 take 1 tablet by mouth every six [...] (20 sources) Serotonin-1b and Serotonin-1d Receptor Agonist Start: 01-13-20 End: 04-27-20 take 1 tablet by mouth once as needed Rizatriptan 10 mg tablet Discontinued 10 mg PO ONCE as needed January 12, 2022 10:53am April 27, 2025 4:13pm Start: 07-05-2020 End: 01-12-2022 Rizatriptan 10 mg tablet Dis continued NMA PO July 05, 2020 12:00am January 12, 2022 11:00am Comment on above: Take 10 mg by mouth as needed. May repeat in 2 hours if needed rOPINIRole 0.25 mg oral tablet (2 sources) Nonergot Dopamine Agonist Start: 01-12-2022 End: 01-29-2025 take 1 tablet by mouth once daily as needed Ropinirole 0.25 mg tablet Discontinued 0.25 mg PO DAILY as needed January 12, 2022 10:53am January 29, 2025 2:09pm Start: 07-05-2020 End: 01-12-2022 Ropinirole 0.25 mg tablet Di scontinued {tbl} PO July 05, 2020 12:00am January 12, 2022 11:00am simethicone 80 mg chewable tablet (20 sources) Start: 07-05-2020 End: 04-27-2025 Simethicone (Gas Relief (Simethicone)) 80 mg tablet,chewable Discontinued 80 mg PO 4 to 6 times per day as needed July 05, 2020 12:00am April 27, 2025 4:13pm Start: 03-13-2018 End: 02-20-2024 take 1 tablet by mouth every six hours as needed simethicone, chewable (OR-ACID GAS RELIEF,SIMETHICON,) 80 mg chewable tablet Indications: Irritable bowel syndrome with both constipation and diarrhea Take 1 tablet by mouth every 6 hours as needed. 02/20/2024 Active Comment on above: Take 1 tablet by serjio th every 6 hours as needed. ticagrelor 90 mg oral tablet (3 sources) Start: 10-10-2019 End: 07-05-2020 take 1 tablet by mouth twice daily Ticagrelor 90 mg tablet Discontinued 90 mg PO TWICE A DAY 180 3 January 12, 2020 9:21am July 05, 2020 3:08pm topiramate 50 mg oral tablet (2 sources) Start: 01-12-2022 End: 01-29-2025 take 1 tablet by mouth once daily as needed Topiramate 50 mg tablet Discontinued 50 mg PO DAILY as needed January 12, 2022 10:54am January 29, 2025 2:09pm Start: 07-05-2020 End: 01-12-2022 Topiramate 50 mg tablet Disc ontinued {tbl} PO July 05, 2020 12:00am January 12, 2022 11:00am 24 hr trospium chloride 60 mg extended release oral capsule (1 source) Cholinergic Muscarinic Antagonist Start: 02-13-2018 End: 07-05-2020 take 1 capsule by mouth once daily Trospium 60 MG capsule,extended release 24hr Discontinued 60 mg PO DAILY February 13, 2018 12:00am July 05, 2020 2:36pm varenicline 1 mg oral tablet (20 sources) [...] 56 tablet 3 02/01/2023 05/22/2023 Discontinued Start: 07-05-2020 End: 03-19-2023 take 1 tablet by mouth twice daily [...] myocardial infarction involving right coronary artery] Onset: 06-28-2020 Chronic Asthma (20 sources) Asthma; Translations: [...] obstructive pulmonary disease, unspecified] Onset: 3 Chronic Chronic obstructive pulmonary disease and bronchiectasis (1 source) Bronchitis; Translations: [Bronchitis, not specified as acute or chronic] 03-05-2014 Episodic Coronary atherosclerosis and other heart disease (11 sources) History of myocardial infarction; Translations: [Old myocardial infarction] Onset: 0 Chronic Coronary atherosclerosis and other heart disease (3 sources) Presence of coronary angioplasty implant and graft; Translations: [Presence of coronary angioplasty implant and graft] Onset: 4 Episodic Disorders of lipid metabolism (4 sources) Hyperlipidemia, unspecified; Translations: [Hyperlipidemia] Onset: 5 01-29-2025 Chronic Esophageal disorders (20 sources) Gastroesophageal reflux disease; Translations: [Gastro-esophageal reflux disease without esophagitis] 08-14-2005 Chronic Essential hypertension (2 sources) Essential hypertension; Translations: [Essential (primary) hypertension] 01-05-2022 Chronic Fluid and electrolyte disorders (20 sources) Hypokalemia; Translations: [Hypokalemia] Onset: 5 Episodic Genitourinary symptoms and ill-defined conditions (1 source) [...] vomiting (2 sources) Nausea; Translations: [Nausea] Episodic Nonspecific chest pain (1 source) Chest wall pain; Translations: [Other chest pain] 01-05-2022 Episodic Other and ill-defined heart disease (1 source) Cardiomegaly; Translations: [Cardiomegaly] Onset: 5 Chronic Other and ill-defined heart disease (1 source) Left ventricular hypertrophy; Translations: [Cardiomegaly] 12-09-2024 Chronic Other connective tissue disease (2 sources) [...] symptom; Translations: [Acute pharyngitis, unspecified] 08-01-2023 Episodic Pneumonia (except that caused by tuberculosis or sexually transmitted disease) (2 sources) Pneumonia; Translations: [Pneumonia, unspecified organism] 04-27-2025 Episodic Residual codes; unclassified (2 sources) Tobacco user; Translations: [Tobacco use] 01-05-2022 Episodic Secondary malignancies (20 sources) Secondary malignant neoplasm of bone; Translations: [Secondary malignant neoplasm of bone] Onset: 0 09-03-2020 Chronic Secondary malignancies (3 sources) Secondary malignant neoplasm of bone; Translations: [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)] Onset: 2 Chronic Secondary malignancies (2 sources) Secondary malignant neoplasm of lung; Translations: [Secondary malignant neoplasm of unspecified lung] 01-11-2021 Chronic Septicemia (except in labor) (2 sources) Sepsis; Translations: [Sepsis, unspecified organism] 04-27-2025 Episodic Spondylosis; intervertebral disc disorders; other back problems (20 sources) Degeneration of intervertebral disc; Translations: [Degeneration of intervertebral disc, site unspecified] 08-14-2005 Chronic Spondylosis; intervertebral disc disorders; other back problems (1 source) Acute back pain with sciatica; Translations: [Lumbago with sciatica, unspecified side] 02-18-2019 Episodic Substance-related disorders (20 sources) Tobacco user; Translations: [...] of oral mucosa] Onset: 09-08-2024 09-08-2024 Episodic Hepatitis (20 sources) Type B viral [...] sources) Long-term current use of anticoagulant; 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] Onset: 08-16-2020 08-16-2020 Episodic Other aftercare (1 source) Other chcf (current) drug therapy; Translations: [Encounter for long-term [...] Test Name Value Interpretation Reference Range Facility Absolute lymphocyte countOrd ered By: Yaya Arndt on 04-27-2025 Lymphocytes Auto (Unsp spec) [#/Vol] 0.69 10*3/uL Low 0.83-4.51 [facility] Absolute neutrophil countOrd ered By: Yaya Arndt on 04-27-2025 Neutrophils (Bld) [#/Vol] 18.9 10*3/uL High 2.0-7.7 [facility] Activated partial thrombopla stin time (aPTT) in platelet poor plasma by coagulation aOrdered By: Yaya Arndt on 04-27-2025 aPTT Coag (PPP) [Time] 23.3 s Low 24.1-36.2 [facility] Anion gap in Serum or Plasma Ordered By: Yaya Arndt on 04-27-2025 Anion gap [Moles/Vol] 18 mmol/L High 5-15 [facility] Assessment of wrist artery p atency prior to arterial punctureOrdered By: Yaya Arndt on 04-27-2025 Arterial patency Wrist artery --pre arterial puncture Positive [facility] Automated lymphocyte count a s percentage of total leukocytesOrdered By: Yaya Arndt on 04-27-2025 Lymphocytes/100 WBC Auto (Unsp spec) 3.2 % Low 19-41 [facility] BUN/creatinine ratioOrdered By: Yaya Arndt on 04-27-2025 Urea nitrogen/Creatinine [Mass ratio] 32.3 mg/mg High 10-20 [facility] Basophil percentageOrdered B y: Yaya Arndt on 04-27-2025 Basophils/100 WBC (Bld) 0.2 % 0-1 [facility] Bilirubin Test strip Ql (U)O rdered By: Yaya Arndt on 04-27-2025 Bilirubin Ql (U) Negative Negative [facility] Bilirubin, totalOrdered By: Yaya Arndt on 04-27-2025 Bilirubin [Mass/Vol] 0.89 mg/dL 0.00-1.30 [facility] Blood base excess determinat ionOrdered By: Yaya Arndt on 04-27-2025 Base excess Calc (BldV) [Moles/Vol] 4 mmol/L High -2-2 [facility] Blood bicarbonate measuremen tOrdered By: Yaya Arndt on 04-27-2025 HCO3 (Bld) [Moles/Vol] 27.2 mmol/L High 22-26 [facility] Carbon dioxide, total [Moles /volume] in Central venous bloodOrdered By: Yaya Arndt on 04-27-2025 CO2 [Moles/Vol] 24.7 mmol/L 21.0-32.0 [facility] Chloride assayOrdered By: Olga Arndt on 04-27-2025 Chloride [Moles/Vol] 89 mmol/L Low 98-108 [facility] Eosinophil percentageOrdered By: Yaya Arndt on 04-27-2025 Eosinophils/100 WBC (Bld) 0.7 % 0-5 [facility] Erythrocyte distribution wid th ratioOrdered By: Yaya Arndt on 04-27-2025 Erythrocyte distribution width (RBC) [Ratio] 16.1 % High 11.6-14.6 [facility] Erythrocyte distribution wid th standard deviationOrdered By: Yaya Gomes on 04-27-2025 Erythrocyte distribution width (RBC) [Ratio] 49.6 fl High 35.1-43.9 [facility] Glomerular filtration rate ( GFR) estimation/1.73 sq m using serum, plasma, or whole bOrdered By: Yaya Arndt on 04-27-2025 GFR/1.73 sq M.predicted among non-blacks MDRD (S/P/Bld) [Vol rate/Area] 35 mL/min/{1.73_m2} Low >60 [facility] Comment on above: mL/min/1.73m2 CKD-EP I Creatinine Equation (2020) Hematocrit Auto (Bld) [Volum e fraction]Ordered By: Yaya Arndt on 04-27-2025 Hematocrit (Bld) [Volume fraction] 37.4 % 37-47 [facility] Hemoglobin measurementOrdere d By: Yaya Arndt on 04-27-2025 Hemoglobin (Bld) [Mass/Vol] 12.5 g/dL 12.0-15.0 [facility] Immature granulocytes/100 WB C Auto (Bld)Ordered By: Yaya Arndt on 04-27-2025 Immature granulocytes/100 WBC (Bld) 1.800 % High 0.0-0.9 [facility] Comment on above: IG% - Immature Granu locytes (promyelocytes, myelocytes and metamyelocytes) > 1% indicates that a LEFT SHIFT is Present. Influenza virus A and B and SARS-CoV-2 (COVID-19) and Respiratory syncytial virus RNAOrdered By: Yaya Arndt on 04-27-2025 SARS-CoV-2 (COVID-19) RNA YUMI+probe Ql (Unsp spec) [facility] International normalized rat io (INR) calculationOrdered By: Yaya Arndt on 04-27-2025 INR Coag (Bld) [Relative time] 1.3 {INR} [facility] Ketones Test strip Ql (U)Ord ered By: Yaya Arndt on 04-27-2025 Ketones Ql (U) Negative Negative [facility] Laboratory - Chemistry and C hemistry - challengeOrdered By: Yaya Arndt on 04-27-2025 AST [Catalytic activity/Vol] 28 U/L <32 [facility] Lactic acid measurementOrder ed By: Yaya Arndt on 04-27-2025 Lactate [Moles/Vol] 2.3 mmol/L High 0.0-2.0 [facility] Comment on above: Critical Result(s) C alled at: 1551 by: HOANG SANCHEZ TO ASTRID KNUTSON Results read back by same. MCV (mean corpuscular volume ) determinationOrdered By: Yaya Arndt on 04-27-2025 MCV (RBC) [Entitic vol] 84.2 fL 81-99 [facility] Magnesium measurement (mass/ volume)Ordered By: Yaya Arndt on 04-27-2025 Magnesium (Unsp spec) [Mass/Vol] 2.3 mg/dL High 1.5-2.2 [facility] Mean corpuscular hemoglobin (MCH) determinationOrdered By: Yaya Arndt on 04-27-2025 MCH (RBC) [Entitic mass] 28.2 pg 27.0-32.0 [facility] Mean corpuscular hemoglobin concentration (MCHC) determinationOrdered By: Yaya Arndt on 04-27-2025 MCHC (RBC) [Mass/Vol] 33.4 g/dL 32-36 [facility] Mean platelet volume determi nationOrdered By: Yaya rAndt on 04-27-2025 Platelet mean volume (Bld) [Entitic vol] 10.9 fL 6.2-12.0 [facility] Measurement, pHOrdered By: Norma Arndt on 04-27-2025 pH (Unsp spec) 7.49 [pH] High 7.35-7.45 [facility] Microscopic analysis of urin e for red blood cells (RBC)Ordered By: Yaya Arndt on 04-27-2025 Microscopic analysis of urine for red blood cells (RBC) 0-5 SEEN /hpf 0-5 [facility] Monocyte percentageOrdered B y: Yaya Arndt on 04-27-2025 Monocytes/100 WBC (Bld) 6.1 % 0-10 [facility] Mucus LM Ql (Urine sed)Order ed By: Yaya Arndt on 04-27-2025 Mucus Ql (Urine sed) 0 SEEN /hpf [facility] Natriuretic peptide.B prohor melody N-Terminal [Mass/volume] in Serum or PlasmaOrdered By: Yaya Arndt on 04-27-2025 Natriuretic peptide.B prohormone N-Terminal [Mass/Vol] 1615 pg/mL High <900 [facility] Comment on above: Heart Failure Unlike ly: < 300 pg/mLHeart Failure Likely< 50 Years: > 450 pg/mL50-75 Years: > 900 pg/mL>75 Years: > 1800 pg/mL Neutrophil percentageOrdered By: Yaya Arndt on 04-27-2025 Neutrophils/100 WBC (Bld) 88.0 % High 47-70 [facility] Nitrite Test strip Ql (U)Ord ered By: Yaya Arndt on 04-27-2025 Nitrite Ql (U) Negative Negative [facility] No Panel InformationOrdered By: Yaya Arndt on 04-27-2025 Blood Gas Sample Site L Radial [facility] Blood Gas Specimen Type ART [facility] Blood Gas Vent Mode Not entered [facility] Oxygen Delivery Device Cannula [facility] Nucleated red blood cell per centageOrdered By: Yaya Arndt on 04-27-2025 Nucleated RBC/100 WBC (Bld) [Ratio] 0 % 0-5 [facility] Platelet countOrdered By: Olga Arndt on 04-27-2025 Platelets (Bld) [#/Vol] 163 10*3/uL 150-450 [facility] Potassium measurement (mass/ volume)Ordered By: Yaya Arndt on 04-27-2025 Potassium (Unsp spec) [Mass/Vol] 2.6 mmol/L Low 3.3-5.1 [facility] Comment on above: Critical Result(s) C alled at: 1551 by: HOANG KNUTSON Results read back by same. Protein Test strip Ql (U)Ord ered By: Yaya Arndt on 04-27-2025 Protein Ql (U) 30 mg/dl High Negative [facility] Prothrombin timeOrdered By: Yaya Arndt on 04-27-2025 PT Coag (PPP) [Time] 16.6 s High 11.7-14.9 [facility] RBC Auto (Bld) [#/Vol]Ordere d By: Yaya Arndt on 04-27-2025 RBC (Bld) [#/Vol] 4.44 10*6/uL 4.2-5.4 [facility] Serum creatinine measurement (mass/volume)Ordered By: Yaya Arndt on 04-27-2025 Creatinine [Mass/Vol] 1.63 mg/dL High 0.70-1.20 [facility] Serum globulin measurementOr dered By: Yaya Arndt on 04-27-2025 Globulin (S) [Mass/Vol] 4.2 g/dL 2.2-4.2 [facility] Serum glucose measurement (m ass/volume)Ordered By: Yaya Arndt on 04-27-2025 Glucose [Mass/Vol] 139 mg/dL High 70-99 [facility] Serum or plasma alanine ledbetter otransferase (ALT) measurementOrdered By: Yaya Arndt on 04-27-2025 ALT [Catalytic activity/Vol] 44 U/L High <35 [facility] Serum or plasma albumin sandra urement (mass/volume)Ordered By: Yaya Gomes on 04-27-2025 Albumin [Mass/Vol] 3.5 g/dL 3.4-4.8 [facility] Serum or plasma albumin/glob ulin mass ratioOrdered By: Yaya Arndt on 04-27-2025 Albumin/Globulin [Mass ratio] 0.8 {ratio} Low 0.9-2.4 [facility] Serum or plasma alkaline gisselle sphatase measurementOrdered By: Yaya Arndt on 04-27-2025 ALP [Catalytic activity/Vol] 187 U/L High 35-104 [facility] Serum or plasma calcium sandra urement (mass/volume)Ordered By: Yaya Gomes on 04-27-2025 Calcium [Mass/Vol] 11.4 mg/dL High 7.6-11.0 [facility] Serum or plasma urea nitroge n measurement (mass/volume)Ordered By: Yaya Arndt on 04-27-2025 Urea nitrogen [Mass/Vol] 53 mg/dL High 4-19 [facility] Sodium levelOrdered By: Hao Arndt on 04-27-2025 Sodium [Moles/Vol] 132 mmol/L Low 133-145 [facility] Squamous epithelial cells de tection in urine sediment by light microscopyOrdered By: Yaya Arndt on 04-27-2025 Epithelial cells.squamous LM Ql (Urine sed) 0-5 SEEN /hpf 5-10 [facility] Total carbon dioxide measure mentOrdered By: Yaya Arndt on 04-27-2025 CO2 [Moles/Vol] 28 mmol/L [facility] Total proteinOrdered By: Joesph Arndt on 04-27-2025 Protein [Mass/Vol] 7.7 g/dL 5.9-8.4 [facility] Troponin T.cardiac [Mass/vol ume] in Serum or Plasma by High sensitivity methodOrdered By: Yaya Arndt on 04-27-2025 Troponin T.cardiac High sensitivity method [Mass/Vol] 33 ng/L High <14 [facility] Troponin T.cardiac High sensitivity method [Mass/Vol] 34 ng/L High <14 [facility] Troponin T.cardiac High sensitivity method [Mass/Vol] 39 ng/L High <14 [facility] Urine clarityOrdered By: Joesph Arndt on 04-27-2025 Clarity (U) Clear Clear [facility] Urine color determinationOrd ered By: Yaya Arndt on 04-27-2025 Color (U) Straw Yellow [facility] Urine glucose detectionOrder ed By: Yaya Arndt on 04-27-2025 Glucose Ql (U) Normal mg/dl Normal [facility] Urine leukocyte esterase det ection by dipstickOrdered By: Yaya Arndt on 04-27-2025 Leukocyte esterase Test strip Ql (U) Negative Negative [facility] Urine pHOrdered By: Yaya Monte on 04-27-2025 pH (U) 7.0 [pH] 5.0 - 8.0 [facility] Urine sediment bacteria coun t by microscopy (number/high power field)Ordered By: Yaya Arndt on 04-27-2025 Bacteria LM.HPF (Urine sed) [#/Area] 0 /[HPF] None Seen [facility] Urine specific gravity measu rementOrdered By: Yaya Arndt on 04-27-2025 Specific gravity (U) [Rel density] 1.005 1.002-1.030 [facility] Urine urobilinogen measureme ntOrdered By: Yaya Arndt on 04-27-2025 Urobilinogen Ql (U) Normal mg/dl Normal [facility] White blood cell (WBC) count Ordered By: Yaya Arndt on 04-27-2025 WBC (Bld) [#/Vol] 21.5 10*3/uL High 4.4-11.0 [facility] White blood cell countOrdere d By: Yaya Arndt on 04-27-2025 White blood cell count 0-5 SEEN /hpf 0-5 [facility] aPTTon 04-27-[facility] BIOM ARKER AND MOLECULAR TESTINGOrdered By: Peterson Gomes on 04-06-2025 APMOLR [facility] Comment on above: Request has been rec eived for evaluation and the results will be issued separately. [facility] GLUCOSE, BLOOD (POC)on 03-09 Glucose [Mass/Vol] 121 mg/dL Abnormal 74 - 99 mg/dL [facility] Comment on above: Location:[facility], [address] [place] [address], [id number] The Accu-Chek Inform II glucose meter has [...] Interpretation and review of laboratory results Abnormal [facility] PET/CT SKULL-THIGH SUBQon 03-09-2025 NM PET/CT SKULL-THIGH [...] designed to produce diagnostic CT scan quality. Physiologic/non-pathol ogic uptake in some body regions could confound or obscure some pathology. * CT Dose-Length Product (DLP): 368 mGy*cm * CT Dose Reduction Employed: Yes * Blood glucose: 121 mg/dL * Injection site: Right Forearm-Antecubital * Injected activity: 15.9 mCi * Uptake Time: 46 minutes * Radiopharmaceutical: [id number] (FDG) COMPARISON: FDG PET/CT 09/15/2024, 05/05/2024, 02/18/2024 [...] somewhat focal (more content not included)... Normal [facility] Cardiology Visit Reporton Cardiology Visit Report [facility] [address] [place] [address] OFFICE VISIT Date of Service: 01/29/25 MR#: [id number] Acct: [id number] Name: LATA SMITH Rep #: [id number] : 1960 Provider: RERE Dye Age/Sex: 64/F Location: [facility] Status: Signed HPI HPI History of [...] now on chemo. She sees oncology at [facility]. Her concerns are more with her chemo. From a cardiac standpoint, patient is doing well. She does not have any chest discomfort/heaviness/t ightness. She does not have any worsening symptoms [...] NIBP Intake Visit Reasons: 6 M FU Health Equipment Servicer Required: No Is patient in pain?: No [...] unit/mL oral PO 01/29/25 01/29/25 History suspension oxycodone-acetaminophe n 10 mg-325 1 tab PO Q4 PRN [...] History bl (more content not included)... Normal [facility] CTA Pulmonary arteries for p ulmonary embolus W contrast Yesenia 11-19-2024 IMPRESSION: 1. No evidence of pulmonary emboli 2. Unchanged size of previously described pulmonary nodules 3. Bilateral bronchial wall thickening. There are some tiny clustered nodules in a tree-in-bud distribution in the right upper lobe which are most likely infectious/inflammator y 4. Unchanged enlarged mediastinal lymph nodes 5. Unchanged sclerotic skeletal metastases Agency Legal Counsel: PSCB Transcribe Date/Time: Nov 19 2024 3:21P Dictated by : KATHRYN MARROQUIN MD This examination was interpreted and the report reviewed and electronically signed by: KATHRYN MARROQUIN MD on Nov 19 2024 3:42PM [facility] DIVISION OF RADIOLOGY * * *Final Report* * * DATE OF EXAM: Nov 19 2024 3:14PM [facility] 0564 - CTA CHEST (NON [...] No additional findings. DIVISION OF RADIOLOGY Provider, [facility] - 11/19/2024 * * *Final Report* * * DATE OF EXAM: Nov 19 2024 3:14PM [facility] 0564 - CTA CHEST (NON [...] right upper lobe which are most likely infectious/inflammator y 4. Unchanged enlarged mediastinal lymph nodes 5. Unchanged sclerotic skeletal metastases Agency Legal Counsel: JAMIR Transcribe Date/Time: Nov 19 2024 3:21P Dictated by : KATHRYN MARROQUIN MD This examination was interpreted and the report reviewed and electronically signed by: KATHRYN MARROQUIN MD on Nov 19 2024 3:42PM [facility] No Panel Informationon 02-12 -2025 Radiology Study [facility] (narrative[facility] Chest PA and Lateralon IMPRESSION: No acute radiographic abnormality. Known pulmonary nodules in this patient with history of right lower non-small cell adenocarcinoma are not well evaluated radiographically. Agency Legal Counsel: JAMIR Transcribe Date/Time: Nov 19 2024 12:27P Dictated by : GARETT SAL MD This examination was interpreted and the report reviewed and electronically signed by: GARETT SAL MD on Nov 19 2024 12:29PM [facility] DIVISION OF RADIOLOGY * * *Final Report* [...] the upper abdomen. DIVISION OF RADIOLOGY Provider, [facility] - 11/19/2024 * * *Final [...] cell adenocarcinoma are not well evaluated radiographically. Agency Legal Counsel: JAMIR Transcribe Date/Time: Nov 19 2024 12:27P Dictated by : GARETT SAL MD This examination was interpreted and the report reviewed and electronically signed by: GARETT SAL MD on Nov 19 2024 12:29PM EST [facility] XR Chest PA and LateralOrder ed By: Ccf Provider on 11-19-2024 [facility] HbA1c (Bld)Ordered By: Lyndsay Castro on 09-30-2024 Average glucose Estimated from glycated hemoglobin (Bld) [Mass/Vol] 131 mg/dL [facility] Comment on above: eAG: (Estimated aver age glucose) is a calculated value from HgbA1c and is factory representative of the average blood glucose level in the last 2-3 month period. HbA1c (Bld) [Mass fraction] 6.2 % High 4.3 - 5.6 % [facility] Comment on above: [place] Diabetes As sociation guidelines indicate that patients with HgbA1c in the range 5.7-6.4% are at increased risk for development of diabetes, and intervention by lifestyle modification may be beneficial. HgbA1c greater or equal to 6.5% is considered diagnostic of diabetes. Interpretation and review of laboratory results Abnormal [facility] GLUCOSE, BLOOD (POC)on 09-15 Glucose [Mass/Vol] 128 mg/dL Abnormal 74 - 99 mg/dL [facility] Comment on above: Location:[facility], [address] [place] [address], [id number] The Accu-Chek Inform II glucose meter has [...] Interpretation and review of laboratory results Abnormal [facility] NM PET/CT SKULL-THIGH SUBQon 09-15-2024 NM [...] designed to produce diagnostic CT scan quality. Physiologic/non-pathol ogic uptake in some body regions could confound or obscure some pathology. * CT Dose-Length Product (DLP): 425 mGy*cm * CT Dose Reduction Employed: Yes * Blood glucose: 128 mg/dL * Injection site: Right Forearm-Antecubital * Injected activity: 14.2 mCi * Uptake Time: 56 minutes * Radiopharmaceutical: U67-Djbgkrhyuxiqwqnwyq (FDG) COMPARISON: FDG PET/CT 05/05/2024, 02/18/2024, 11/12/2023 [...] clinically. NO (more content not included)... Normal [facility] CBC W Auto Differential pane l (Bld)on 05-27-2024 Basophils (Bld) [#/Vol] 0.07 10*3/uL [facility] Basophils/100 WBC (Bld) 0.9 % [facility] Differential cell count method Nom (Bld) Auto [facility] Eosinophils (Bld) [#/Vol] 0.23 10*3/uL [facility] Eosinophils/100 WBC (Bld) 3.0 % [facility] Erythrocyte distribution width (RBC) [Ratio] 15.2 % High 11.5 - 15.0 % [facility] Hematocrit (Bld) [Volume fraction] 43.4 % 36.0 - 46.0 % [facility] Hemoglobin (Bld) [Mass/Vol] 14.4 g/dL 11.5 - 15.5 g/dL [facility] Immature granulocytes (Bld) [#/Vol] 0.04 10*3/uL [facility] Immature granulocytes/100 WBC (Bld) 0.5 % [facility] Interpretation and review of laboratory results Abnormal [facility] Lymphocytes (Bld) [#/Vol] 1.47 10*3/uL [facility] Lymphocytes/100 WBC (Bld) 19.0 % [facility] MCH (RBC) [Entitic mass] 28.1 pg 26. 0 - 34.0 pg [facility] MCHC (RBC) [Mass/Vol] 33.2 g/dL 30.5 - 36.0 g/dL [facility] MCV (RBC) [Entitic vol] 84.6 fL 80.0 - 100.0 fL [facility] Monocytes (Bld) [#/Vol] 0.50 10*3[facility] Monocytes/100 WBC (Bld) 6.5 % [facility] Neutrophils (Bld) [#/Vol] 5.44 10*3/uL [facility] Neutrophils/100 WBC (Bld) 70.1 % [facility] Nucleated RBC (Bld) [#/Vol] NINF [facility] Nucleated RBC/100 WBC (Bld) [Ratio] 0.0 % /100 WBC [facility] Platelet mean volume (Bld) [Entitic vol] 10.0 fL 9.0 - 12.7 fL [facility] Platelets (Bld) [#/Vol] 219 10*3/uL [facility] RBC (Bld) [#/Vol] 5.13 10*6/uL 3.90 - 5.2 0 m/uL [facility] WBC (Bld) [#/Vol] 7.75 10*3/uL [facility] CORTISOL, SERUMon 05-27-2024 Cortisol [Mass/Vol] 10.7 ug/dL 4.8 - 19 .5 ug/dL [facility] Comment on above: Provided reference kyree pacheco is from 6-10 AM sample collection time. Cortisol Reference Range: 6-10 AM = 4.8-19.5 ug/dL, 4-8 PM = 2.5-11.9 ug/dL Comprehensive metabolic 2000 panelOrdered By: Felicia Garcia on 05-27-2024 Albumin [Mass/Vol] 4.4 g/dL 3.9 - 4.9 g/dL [facility] ALP [Catalytic activity/Vol] 133 U/L High 34 - 123 U/L [facility] ALT [Catalytic activity/Vol] 19 U/L 7 - 38 U/L [facility] Anion gap [Moles/Vol] 12 mmol/L 8 - 15 mmol/L [facility] AST [Catalytic activity/Vol] 14 U/L 13 - 35 U/L [facility] Bilirubin [Mass/Vol] mg/dL Low 0.2 - 1 .3 mg/dL [facility] Calcium [Mass/Vol] 9.7 mg/dL 8.5 - 10. 2 mg/dL [facility] Chloride [Moles/Vol] 101 mmol/L 98 - 10 7 mmol/L [facility] CO2 [Moles/Vol] 26 mmol/L 22 - 30 mmol/L [facility] Creatinine [Mass/Vol] 0.77 mg/dL 0.58 - 0.96 mg/dL [facility] GFR/1.73 sq M.predicted among non-blacks MDRD (S/P/Bld) [Vol rate/Area] 87 mL/min/{1.73_m2} - PINF [facility] Comment on above: Estimated Glomerular Filtration Rate [...] 111 mg/dL High 74 - 99 mg/dL [facility] Comment on above: The [place] Diabete s Association (ADA) provides guidance for [...] Standards of Medical Care in Diabetes 2016, [place] [employer] Association. Diabetes Care. 2016.39(Suppl 1). Interpretation and review of laboratory results Abnormal [facility] Potassium [Moles/Vol] 2.8 mmol/L Low 3.7 - 5.1 mmol/L [facility] Comment on above: Checked and Verified Protein [Mass/Vol] 7.8 g/dL 6.3 - 8.0 g/dL [facility] Sodium [Moles/Vol] 139 mmol/L 136 - 144 mmol/L [facility] Urea nitrogen [Mass/Vol] 14 mg/dL 7 - 21 mg/d L [facility] No Panel Informationon 05-27 Interpretation and review of laboratory results Normal [facility] T4 FREE/FREE THYROXINEon Free T4 [Mass/Vol] 1.2 ng/dL 0.9 - 1.7 ng/dL [facility] Cardiology Visit Reporton Cardiology Visit Report [facility] [place] [address] OFFICE VISIT Date of Service: 05/08/24 MR#: [id number] Acct: [id number] Name: LATA SMITH Rep #: [id number] : 1960 Provider: Dr. Les Dennis MD Age/Sex: 63/F Location: [facility] Status: Signed HPI HPI History of [...] Monitor Intake Visit Reasons: 1 y fu Health Equipment Servicer Required: No Accompanied by: Self Is patient [...] mg PO BID PRN 01/12/22 05/08/24 History oxycodone-acetaminophe n 5 mg-325 1 tab PO Q8H PRN [...] you fallen in the past year?: No REPLACED BY [facility] Medical History Essential hypertension History of ST elevation myocardial infarction (STEMI) (10/09/19) Tobacco abuse Metastatic lung carcinoma Asthma Arteriosclerosis of coronary artery in patient with history of myocardial infarction COPD (chronic obstructive pulmonary disease) Surgical History (Updated 05/08/24 @ 14:50 by Mabel Kidd, RN) S/P trigger finger release History of coronary artery stent placement (10/09/19) History of cholecystectomy History of appendectomy History of carpal tunnel release of both wrists History of hysterectomy Family History Brother Cancer lung Social History Smoking Status: Light Smoker (<10/day) quit status: quit date established alc (more content not included)... Normal [facility] GLUCOSE, BLOOD (POC)on 05-05 Glucose [Mass/Vol] 114 mg/dL Abnormal 74 - 99 mg/dL [facility] Comment on above: [facility] [place], [address] The Accu-Chek Inform II glucose meter has [...] Interpretation and review of laboratory results Abnormal [facility] NM PET/CT SKULL-THIGH SUBQon 05-05-2024 NM [...] Radiopharmaceutical INjected Activity: 16.3 mCi * Radiopharmaceutical: P19-Zmufyhgnxcxzqxmlye (FDG) * All standardized uptake values reported represent maximum SUV (SUVmax) unless otherwise specified, per body weight. COMPARISON: 02/18/2024 FDG PET/CT CORRELATION: None FINDINGS: REFERENCES: SUV reference: * Blood pool activity (descending aorta): SUV max 2.2, prior 2.7 * Background liver activity: SUV max 2.8, prior 2.8 * Background liver activity: SUV mean 2.1, prior 2.3 Risk Management Intern (topogram) images: Unremarkable. HEAD AND NECK: Imaged [...] 09/16/2020: Comparison CT 02/18/2024; abstract date 03/06/2024 ====== CLINICAL TRIAL TUMOR METRICS RESPONSE CRITERIA: RECIST 1.1 FOLLOW-UP TARGET LESIONS (TL): (<5 mm = immeasurable disease) See EPIC Abstract Note for selected TLs; Deras Images saved in [email or web address] Chest: * Target lesi (more content not included)... Normal [facility] CBC W Auto Differential pane l (Bld)on 04-17-2024 Basophils (Bld) [#/Vol] 0.07 10*3/uL [facility] Basophils/100 WBC (Bld) 0.9 % [facility] Differential cell count method Nom (Bld) Auto [facility] Eosinophils (Bld) [#/Vol] 0.22 10*3/uL [facility] Eosinophils/100 WBC (Bld) 2.8 % [facility] Erythrocyte distribution width (RBC) [Ratio] 15.6 % High 11.5 - 15.0 % [facility] Hematocrit (Bld) [Volume fraction] 43.3 % 36.0 - 46.0 % [facility] Hemoglobin (Bld) [Mass/Vol] 14.2 g/dL 11.5 - 15.5 g/dL [facility] Immature granulocytes (Bld) [#/Vol] 0.03 10*3/uL [facility] Immature granulocytes/100 WBC (Bld) 0.4 % [facility] Interpretation and review of laboratory results Abnormal [facility] Lymphocytes (Bld) [#/Vol] 1.39 10*3/uL [facility] Lymphocytes/100 WBC (Bld) 17.7 % [facility] MCH (RBC) [Entitic mass] 27.8 pg 26. 0 - 34.0 pg [facility] MCHC (RBC) [Mass/Vol] 32.8 g/dL 30.5 - 36.0 g/dL [facility] MCV (RBC) [Entitic vol] 84.9 fL 80.0 - 100.0 fL [facility] Monocytes (Bld) [#/Vol] 0.51 10*3/uL [facility] Monocytes/100 WBC (Bld) 6.5 % [facility] Neutrophils (Bld) [#/Vol] 5.65 10*3/uL [facility] Neutrophils/100 WBC (Bld) 71.7 % [facility] Nucleated RBC (Bld) [#/Vol] [facility] Nucleated RBC/100 WBC (Bld) [Ratio] 0.0 % /100 WBC [facility] Platelet mean volume (Bld) [Entitic vol] 10.3 fL 9.0 - 12.7 fL [facility] Platelets (Bld) [#/Vol] 228 10*3/uL [facility] RBC (Bld) [#/Vol] 5.10 10*6/uL 3.90 - 5.2 0 m/uL [facility] WBC (Bld) [#/Vol] 7.87 10*3/uL [facility] Comprehensive metabolic 2000 panelOrdered By: Katie Glass on 04-17-2024 Albumin [Mass/Vol] 4.2 g/dL 3.9 - 4.9 g/dL [facility] ALP [Catalytic activity/Vol] 127 U/L High 34 - 123 U/L [facility] ALT [Catalytic activity/Vol] 20 U/L 7 - 38 U/L [facility] Anion gap [Moles/Vol] 9 mmol/L 8 - 15 mmol/L [facility] AST [Catalytic activity/Vol] 16 U/L 13 - 35 U/L [facility] Bilirubin [Mass/Vol] 0.2 mg/dL 0.2 - 1 .3 mg/dL [facility] Calcium [Mass/Vol] 9.5 mg/dL 8.5 - 10. 2 mg/dL [facility] Chloride [Moles/Vol] 104 mmol/L 98 - 10 7 mmol/L [facility] CO2 [Moles/Vol] 26 mmol/L 22 - 30 mmol/L [facility] Creatinine [Mass/Vol] 0.77 mg/dL 0.58 - 0.96 mg/dL [facility] GFR/1.73 sq M.predicted among non-blacks MDRD (S/P/Bld) [Vol rate/Area] 87 mL/min/{1.73_m2} - PINF [facility] Comment on above: Estimated Glomerular Filtration Rate [...] 104 mg/dL High 74 - 99 mg/dL [facility] Comment on above: The [place] Diabete s Association (ADA) provides guidance for [...] Standards of Medical Care in Diabetes 2016, [place] Diabetes Association. Diabetes Care. 2016.39(Suppl 1). Interpretation and review of laboratory results Abnormal [facility] Potassium [Moles/Vol] 4.2 mmol/L 3.7 - 5.1 mmol/L [facility] Protein [Mass/Vol] 7.4 g/dL 6.3 - 8.0 g/dL [facility] Sodium [Moles/Vol] 139 mmol/L 136 - 144 mmol/L [facility] Urea nitrogen [Mass/Vol] 14 mg/dL 7 - 21 mg/d L [facility] LACTATE DEHYDROGENASEon 04-07 LDH [Catalytic activity/Vol] 203 U/L 135 - 214 U/L [facility] Comment on above: Hemolysis present. T he [...] Interpretation and review of laboratory results Normal [facility] HbA1c (Bld)on 12-12-2023 Average glucose Estimated from glycated hemoglobin (Bld) [Mass/Vol] 134 mg/dL [facility] HbA1c (Bld) [Mass fraction] 6.3 % High 4.3 - 5.6 % [facility] NM PET/CT SKULL-THIGH SUBSEQ UENTon 11-12-2023 [facility] No Panel Informationon 08-10 [facility] STREP A MOLECULAR (POC)on Procedural Control Valid [facility] Strep A (POCT) Negative Negative [facility] SPIROMETRY WITH DILATOR IF O BSTRUCTEDon 03-19-2023 QHF47-21% POST (L/S) 0.45 L/S [facility] AAU27-67% PRE (L/S) 0.42 L/S [facility] FEV1 PRE (L) 1.09 L [facility] FEV1/FVC POST (%) 51 % [facility] PRE (%) 56 % [facility] FEV1_POST (L) 1.08 L [facility] FVC POST (L) 2.13 L [facility] FVC PRE (L) 1.96 L [facility] PEF POST (L/S) 2.67 L/S [facility] PEF PRE (L/S) 2.69 L/S [facility] US THYROID/PARATHYROIDon [facility] No Panel Informationon 02-09 [facility] No Panel Informationon 11-13 [facility] No Panel Informationon 08-[address] [facility] [address] ABDOMEN W IVCONon [facility] CT ABDOMEN W IVCONon 022 [facility] CNCOon 07-06-2020 CNCO Letter Text Normal [facility] Vital Signs Date Time Vital Sign Value Performing Clinician Facility 04-27-2025 21:44-0400 Body temperature 97.6 [degF] Dr. Fiona Durant MD Work Phone: [phone] [place] [address] 04-27-2025 21:44-0400 Diastolic blood pressure 73 mm[Hg] Dr. Fiona Durant MD Work Phone: 7([phone] [place] [address] 04-27-2025 21:44-0400 Heart rate 78 /min Dr. Fiona Durant MD Work Phone: [phone] [place] [address] 04-27-2025 21:44-0400 Respiratory rate 24 /min Dr. Fiona Durant MD Work Phone: 0(073)[phone] [place] [address] 04-27-2025 21:44-0400 SaO2% (BldA) [Mass fraction] 100 % Dr. Fiona Durant MD Work Phone: [phone])[phone] [place] [address] 04-27-2025 21:44-0400 Systolic blood pressure 86 mm[Hg] Dr. Fiona Durant MD Work Phone: 1(774)[phone] [place] [address] 04-27-2025 21:43-0400 Inhaled oxygen flow rate 30 L/min Dr. Fiona Durant MD Work Phone: [phone] [place] [address] 04-27-2025 18:23-0400 Inhaled oxygen concentration 30 % Dr. Fiona Durant MD Work Phone: [phone] [place] [address] 04-27-2025 14:21-0400 Body mass index (BMI) [Ratio] 33.4 kg/m2 Dr. Fiona Durant MD Work Phone: [phone] [place] [address] 04-27-2025 14:21-0400 Body weight 77.[address] Fiona Durant MD Work Phone: [phone] [place] [address] 04-27-2025 14:18-0400 Body height 152.[address] Fiona Durant MD Work Phone: [facility] 04-24-2025 14:31-0400 Diastolic blood pressure 76 mm[Hg] Georgina Morgan MD Work Phone: [facility] 04-24-2025 14:31-0400 Heart rate 102 /min Georgina Morgan MD Work Phone: [facility] 04-24-2025 14:31-0400 Respiratory rate 17 /min Georgina Morgan MD Work Phone: [facility] 04-24-2025 14:31-0400 SaO2% (BldA) [Mass fraction] 91 % Georgina Morgan MD Work Phone: [facility] 04-24-2025 14:31-0400 Systolic blood pressure 112 mm[Hg] Georgina Morgan MD Work Phone: [facility] 04-08-2025 13:27-0400 Body mass index (BMI) [Ratio] 35.35 kg/m2 Sandoval Burgess MD Work Phone: [facility] 04-08-2025 13:27-0400 Body temperature 97.3 [degF] Sandoval Burgess MD Work Phone: [facility] 04-08-2025 13:27-0400 Body weight 82.1 kg Sandoval Burgess MD Work Phone: [facility] 04-08-2025 13:27-0400 Diastolic blood pressure 53 mm[Hg] Sandoval Burgess MD Work Phone: [facility] 04-08-2025 13:27-0400 Heart rate 90 /min Sandoval Burgess MD Work Phone: [facility] 04-08-2025 13:27-0400 SaO2% (BldA) [Mass fraction] 95 % Sandoval Burgess MD Work Phone: [facility] 04-08-2025 13:27-0400 Systolic blood pressure 83 mm[Hg] Sandoval Burgess MD Work Phone: [facility] 03-20-2025 09:39-0400 Body mass index (BMI) [Ratio] 35.52 kg/m2 Georgina Morgan MD Work Phone: [facility] 03-20-2025 09:39-0400 Body weight 85.28 kg Georgina Morgan MD Work Phone: [facility] 03-20-2025 09:39-0400 Diastolic blood pressure 58 mm[Hg] Georgina Morgan MD Work Phone: [facility] 03-20-2025 09:39-0400 Heart rate 91 /min Georgina Morgan MD Work Phone: [facility] 03-20-2025 09:39-0400 Respiratory rate 14 /min Georgina Morgan MD Work Phone: [facility] 03-20-2025 09:39-0400 SaO2% (BldA) [Mass fraction] 94 % Georgina Morgan MD Work Phone: [facility] 03-20-2025 09:39-0400 Systolic blood pressure 92 mm[Hg] Georgina Morgan MD Work Phone: [facility] 03-18-2025 14:47-0400 Body mass index (BMI) [Ratio] 35.52 kg/m2 Sandoval Burgess MD Work Phone: [facility] 03-18-2025 14:47-0400 Body temperature 97.81 [degF] Sandoval Burgess MD Work Phone: [facility] 03-18-2025 14:47-0400 Body weight 85.28 kg Sandoval Burgess MD Work Phone: [facility] 03-18-2025 14:47-0400 Diastolic blood pressure 58 mm[Hg] Sandoval Burgess MD Work Phone: [facility] 03-18-2025 14:47-0400 Heart rate 94 /min Sandoval Burgess MD Work Phone: [facility] 03-18-2025 14:47-0400 SaO2% (BldA) [Mass fraction] 93 % Sandoval Burgess MD Work Phone: [facility] 03-18-2025 14:47-0400 Systolic blood pressure 90 mm[Hg] Sandoval Burgess MD Work Phone: [facility] 02-25-2025 10:23-0400 Body height 154.9 cm Fiona Durant MD Work Phone: [facility] 02-25-2025 10:23-0400 Body mass index (BMI) [Ratio] 36.37 kg/m2 Fiona Durant MD Work Phone: [facility] 02-25-2025 10:23-0400 Body temperature 98.4 [degF] Fiona Durant MD Work Phone: [facility] 02-25-2025 10:23-0400 Body weight 87.3 kg Fiona Durant MD Work Phone: [facility] 02-25-2025 10:23-0400 Diastolic blood pressure 60 mm[Hg] Fiona Durant MD Work Phone: [facility] 02-25-2025 10:23-0400 Heart rate 83 /min Fiona Durant MD Work Phone: [facility] 02-25-2025 10:23-0400 Respiratory rate 18 /min Fiona Durant MD Work Phone: [facility] 02-25-2025 10:23-0400 SaO2% (BldA) [Mass fraction] 95 % Fiona Durant MD Work Phone: [facility] 02-25-2025 10:23-0400 Systolic blood pressure 138 mm[Hg] Fiona Durant MD Work Phone: [facility] 02-05-2025 13:23-0400 Diastolic blood pressure 59 mm[Hg] Treatment Wstr Work Phone: [facility] 02-05-2025 13:23-0400 Heart rate 96 /min Treatment Wstr Work Phone: [facility] 02-05-2025 13:23-0400 Respiratory rate 18 /min [facility]str Work Phone: [facility] [facility] 02-05-2025 13:23-0400 SaO2% (BldA) [Mass fraction] 94 % Treatment Wstr Work Phone: [facility] 02-05-2025 13:23-0400 Systolic blood pressure 105 mm[Hg] Treatment Wstr Work Phone: [facility] 02-04-2025 14:41-0400 Body mass index (BMI) [Ratio] 36.72 kg/m2 Sandoval Burgess MD Work Phone: [facility] 02-04-2025 14:41-0400 Body temperature 97.2 [degF] Sandoval Burgess MD Work Phone: [facility] 02-04-2025 14:41-0400 Body weight 88.22 kg Sandoval Burgess MD Work Phone: [facility] 02-04-2025 14:41-0400 Diastolic blood pressure 80 mm[Hg] Sandoval Burgess MD Work Phone: [facility] 02-04-2025 14:41-0400 Heart rate 94 /min Sandoval Burgess MD Work Phone: [facility] 02-04-2025 14:41-0400 SaO2% (BldA) [Mass fraction] 96 % Sandoval Burgess MD Work Phone: [facility] 02-04-2025 14:41-0400 Systolic blood pressure 123 mm[Hg] Sandoval Burgess MD Work Phone: [facility] 01-29-2025 13:54-0400 Body mass index (BMI) [Ratio] 38 kg/m2 Dr. Fiona Durnat MD Work Phone: [facility] 01-29-2025 13:54-0400 Body weight 88.[address] Fiona Durant MD Work Phone: [facility] 01-29-2025 13:54-0400 Diastolic blood pressure 75 mm[Hg] Dr. Fiona Durant MD Work Phone: [facility] 01-29-2025 13:54-0400 Heart rate 102 /min Dr. Fiona Durant MD Work Phone: [facility] 01-29-2025 13:54-0400 Respiratory rate 18 /min Dr. Fiona Durant MD Work Phone: [facility] 01-29-2025 13:54-0400 Systolic blood pressure 116 mm[Hg] Dr. Fiona Durant MD Work Phone: [facility] 01-14-2025 12:16-0400 Body mass index (BMI) [Ratio] 36.44 kg/m2 Treatment Wstr Work Phone: [facility] 01-14-2025 12:16-0400 Body temperature 97.81 [degF] Treatment Wstr Work Phone: [facility] 01-14-2025 12:16-0400 Body weight 87.54 kg Treatment Wstr Work Phone: [facility] 01-14-2025 12:16-0400 Diastolic blood pressure 68 mm[Hg] Treatment Wstr Work Phone: [facility] 01-14-2025 12:16-0400 Heart rate 73 /min Treatment Wstr Work Phone: [facility] 01-14-2025 12:16-0400 Respiratory rate 16 /min Treatment Wstr Work Phone: [facility] 01-14-2025 12:16-0400 Systolic blood pressure 103 mm[Hg] Treatment Wstr Work Phone: [facility] 01-13-2025 13:33-0400 Body mass index (BMI) [Ratio] 37.17 kg/m2 Carrie Preciado APRN.CNP Work Phone: [facility] 01-13-2025 13:33-0400 Body temperature 97.9 [degF] Carrie Preciado SOLUTIONS DEVELOPMENT ANALYST.ENERGY EFFICIENT SITE MANAGER Work Phone: [facility] 01-13-2025 13:33-0400 Body weight 89.3 kg Carrie Preciado SOLUTIONS DEVELOPMENT ANALYST.ENERGY EFFICIENT SITE MANAGER Work Phone: [facility] 01-13-2025 13:33-0400 Diastolic blood pressure 76 mm[Hg] Carrie Yeeenter SOLUTIONS DEVELOPMENT ANALYST.ENERGY EFFICIENT SITE MANAGER Work Phone: [facility] 01-13-2025 13:33-0400 Heart rate 79 /min Carrie Preciado SOLUTIONS DEVELOPMENT ANALYST.ENERGY EFFICIENT SITE MANAGER Work Phone: [facility] 01-13-2025 13:33-0400 SaO2% (BldA) [Mass fraction] 94 % Carrie Preciado SOLUTIONS DEVELOPMENT ANALYST.ENERGY EFFICIENT SITE MANAGER Work Phone: [facility] 01-13-2025 13:33-0400 Systolic blood pressure 118 mm[Hg] Carrie Preciado SOLUTIONS DEVELOPMENT ANALYST.ENERGY EFFICIENT SITE MANAGER Work Phone: [facility] 12-25-2024 13:30-0400 Body temperature 97.2 [degF] Treatment Wstr Work Phone: [facility] 12-25-2024 13:30-0400 Diastolic blood pressure 71 mm[Hg] Treatment Wstr Work Phone: [facility] 12-25-2024 13:30-0400 Heart rate 91 /min Treatment Wstr Work Phone: [facility] 12-25-2024 13:30-0400 SaO2% (BldA) [Mass fraction] 96 % Treatment Wstr Work Phone: [facility] 12-25-2024 13:30-0400 Systolic blood pressure 106 mm[Hg] Treatment Wstr Work Phone: [facility] 12-24-2024 13:42-0400 Body mass index (BMI) [Ratio] 35.78 kg/m2 Sandoval Burgess MD Work Phone: [facility] 12-24-2024 13:42-0400 Body temperature 98.29 [degF] Sandoval Burgess MD Work Phone: [facility] 12-24-2024 13:42-0400 Body weight 85.96 kg Sandoval Burgess MD Work Phone: [facility] 12-24-2024 13:42-0400 Diastolic blood pressure 70 mm[Hg] Sandoval Burgess MD Work Phone: [facility] 12-24-2024 13:42-0400 Heart rate 96 /min Sandoval Burgess MD Work Phone: [facility] 12-24-2024 13:42-0400 SaO2% (BldA) [Mass fraction] 93 % Sandoval Burgess MD Work Phone: [facility] 12-24-2024 13:42-0400 Systolic blood pressure 102 mm[Hg] Sandoval Burgess MD Work Phone: [facility] 12-04-2024 13:12-0500 Body mass index (BMI) [Ratio] 36.44 kg/m2 Treatment Wstr Work Phone: [facility] 12-04-2024 13:12-0500 Body temperature 98.01 [degF] Treatment Wstr Work Phone: [facility] 12-04-2024 13:12-0500 Body weight 87.54 kg Treatment Wstr Work Phone: [facility] 12-04-2024 13:12-0500 Diastolic blood pressure 73 mm[Hg] Treatment Wstr Work Phone: [facility] 12-04-2024 13:12-0500 Heart rate 89 /min Treatment Wstr Work Phone: [facility] 12-04-2024 13:12-0500 Respiratory rate 20 /min Treatment Wstr Work Phone: [facility] 12-04-2024 13:12-0500 SaO2% (BldA) [Mass fraction] 95 % Treatment Wstr Work Phone: [facility] 12-04-2024 13:12-0500 Systolic blood pressure 117 mm[Hg] Treatment Wstr Work Phone: [facility] 12-01-2024 17:22-0500 Body mass index (BMI) [Ratio] 35.34 kg/m2 Fiona Durant MD Work Phone: [facility] 12-01-2024 17:22-0500 Body weight 84.9 kg Fiona Durant MD Work Phone: [facility] 12-01-2024 17:22-0500 Diastolic blood pressure 50 mm[Hg] Fiona Durant MD Work Phone: [facility] 12-01-2024 17:22-0500 Heart rate 88 /min Fiona Durant MD Work Phone: [facility] 12-01-2024 17:22-0500 SaO2% (BldA) [Mass fraction] 95 % Fiona Durant MD Work Phone: [facility] 12-01-2024 17:22-0500 Systolic blood pressure 100 mm[Hg] Fiona Durant MD Work Phone: [facility] 11-19-2024 12:39-0500 Body mass index (BMI) [Ratio] 35.31 kg/m2 Sandoval Burgess MD Work Phone: [facility] 11-19-2024 12:39-0500 Body temperature 97.59 [degF] Sandoval Burgess MD Work Phone: [facility] 11-19-2024 12:39-0500 Body weight 84.82 kg Sandoval Burgess MD Work Phone: [facility] 11-19-2024 12:39-0500 Diastolic blood pressure 76 mm[Hg] Sandoval Burgess MD Work Phone: [facility] 11-19-2024 12:39-0500 Heart rate 77 /min Sandoval Burgess MD Work Phone: [facility] 11-19-2024 12:39-0500 SaO2% (BldA) [Mass fraction] 90 % Sandoval Burgess MD Work Phone: [facility] 11-19-2024 12:39-0500 Systolic blood pressure 119 mm[Hg] Sandovla Burgess MD Work Phone: [facility] 10-30-2024 11:08-0500 Diastolic blood pressure 61 mm[Hg] Treatment Wstr Work Phone: [facility] 10-30-2024 11:08-0500 Heart rate 82 /min Treatment Wstr Work Phone: [facility] 10-30-2024 11:08-0500 Respiratory rate 18 /min Treatment Wstr Work Phone: [facility] 10-30-2024 11:08-0500 SaO2% (BldA) [Mass fraction] 90 % Treatment Wstr Work Phone: [facility] 10-30-2024 11:08-0500 Systolic blood pressure 117 mm[Hg] Treatment Wstr Work Phone: [facility] 10-30-2024 08:48-0500 Body height 155 cm Treatment Wstr Work Phone: [facility] Comment on above: verified with Leigh PEARSON 10-30-2024 08:48-0500 Body mass index (BMI) [Ratio] 37.85 kg/m2 Treatment Wstr Work Phone: [facility] 10-30-2024 08:48-0500 Body temperature 97.2 [degF] Treatment Wstr Work Phone: [facility] 10-30-2024 08:48-0500 Body weight 90.95 kg Treatment Wstr Work Phone: [facility] 10-23-2024 11:07-0500 Body mass index (BMI) [Ratio] 39.06 kg/m2 Sandoval Burgess MD Work Phone: [facility] 10-23-2024 11:07-0500 Body temperature 98.8 [degF] Sandoval Burgess MD Work Phone: [facility] 10-23-2024 11:07-0500 Body weight 90.72 kg Sandoval Burgess MD Work Phone: [facility] 10-23-2024 11:07-0500 Diastolic blood pressure 67 mm[Hg] Sandoval Burgess MD Work Phone: [facility] 10-23-2024 11:07-0500 Heart rate 97 /min Sandoval Burgess MD Work Phone: [facility] 10-23-2024 11:07-0500 SaO2% (BldA) [Mass fraction] 91 % Sandoval Burgess MD Work Phone: [facility] 10-23-2024 11:07-0500 Systolic blood pressure 110 mm[Hg] Sandoval Burgess MD Work Phone: [facility] 10-05-2024 15:07-0500 Body mass index (BMI) [Ratio] 38.32 kg/m2 Dayton Clutter PA-C Work Phone: [facility] 10-05-2024 15:07-0500 Body temperature 97.39 [degF] Dayton Clutter PA-C Work Phone: [facility] 10-05-2024 15:07-0500 Body weight 89 kg Dayton Clutter PA-C Work Phone: [facility] 10-05-2024 15:07-0500 Diastolic blood pressure 66 mm[Hg] Dayton Clutter PA-C Work Phone: [facility] 10-05-2024 15:07-0500 Heart rate 78 /min Dayton Clutter PA-C Work Phone: [facility] 10-05-2024 15:07-0500 Respiratory rate 24 /min Dayton Clutter PA-C Work Phone: [facility] 10-05-2024 15:07-0500 SaO2% (BldA) [Mass fraction] 95 % Dayton Clutter PA-C Work Phone: [facility] 10-05-2024 15:07-0500 Systolic blood pressure 101 mm[Hg] Dayton Clutter PA-C Work Phone: [facility] 09-30-2024 09:37-0500 Body mass index (BMI) [Ratio] 38.86 kg/m2 Sandoval Burgess MD Work Phone: [facility] 09-30-2024 09:37-0500 Body temperature 97.5 [degF] Sandoval Burgess MD Work Phone: [facility] 09-30-2024 09:37-0500 Body weight 90.27 kg Sandoval Burgess MD Work Phone: [facility] 09-30-2024 09:37-0500 Diastolic blood pressure 52 mm[Hg] Sandoval Burgess MD Work Phone: [facility] 09-30-2024 09:37-0500 Heart rate 80 /min Sandoval Burgess MD Work Phone: [facility] 09-30-2024 09:37-0500 SaO2% (BldA) [Mass fraction] 93 % Sandoval Burgess MD Work Phone: [facility] 09-30-2024 09:37-0500 Systolic blood pressure 101 mm[Hg] Sandoval Burgess MD Work Phone: [facility] 09-11-2024 12:42-0500 Heart rate 88 /min Georgina Morgan MD Work Phone: [facility] 09-11-2024 12:42-0500 SaO2% (BldA) [Mass fraction] 92 % Georgina Morgan MD Work Phone: [facility] 09-08-2024 15:05-0500 Body mass index (BMI) [Ratio] 39.05 kg/m2 Fiona Durant MD Work Phone: [facility] 09-08-2024 15:05-0500 Body temperature 97.59 [degF] Fiona Durant MD Work Phone: [facility] 09-08-2024 15:05-0500 Body weight 90.7 kg Fiona Durant MD Work Phone: [facility] 09-08-2024 15:05-0500 Diastolic blood pressure 62 mm[Hg] Fiona Durant MD Work Phone: [facility] 09-08-2024 15:05-0500 Heart rate 75 /min Fiona Durant MD Work Phone: [facility] 09-08-2024 15:05-0500 Respiratory rate 18 /min Fiona Durant MD Work Phone: [facility] 09-08-2024 15:05-0500 SaO2% (BldA) [Mass fraction] 94 % Fiona Durant MD Work Phone: [facility] 09-08-2024 15:05-0500 Systolic blood pressure 112 mm[Hg] Fiona Durant MD Work Phone: [facility] 08-21-2024 14:54-0500 Body temperature 97.81 [degF] Treatment Wstr Work Phone: [facility] 08-21-2024 14:54-0500 Diastolic blood pressure 72 mm[Hg] Treatment Wstr Work Phone: [facility] 08-21-2024 14:54-0500 Heart rate 86 /min Treatment Wstr Work Phone: [facility] 08-21-2024 14:54-0500 Respiratory rate 18 /min Treatment Wstr Work Phone: [facility] 08-21-2024 14:54-0500 SaO2% (BldA) [Mass fraction] 95 % Treatment Wstr Work Phone: [facility] 08-21-2024 14:54-0500 Systolic blood pressure 115 mm[Hg] Treatment Wstr Work Phone: [facility] 08-19-2024 10:55-0500 Body mass index (BMI) [Ratio] 39.26 kg/m2 Sandoval Burgess MD Work Phone: [facility] 08-19-2024 10:55-0500 Body temperature 97.2 [degF] Sandoval Burgess MD Work Phone: [facility] 08-19-2024 10:55-0500 Body weight 91.17 kg Sandoval Burgess MD Work Phone: [facility] 08-19-2024 10:55-0500 Diastolic blood pressure 52 mm[Hg] Sandoval Burgess MD Work Phone: [facility] 08-19-2024 10:55-0500 Heart rate 75 /min Sandoval Burgess MD Work Phone: [facility] 08-19-2024 10:55-0500 SaO2% (BldA) [Mass fraction] 94 % Sandoval Burgess MD Work Phone: [facility] 08-19-2024 10:55-0500 Systolic blood pressure 107 mm[Hg] Sandoval Burgess MD Work Phone: [facility] 07-10-2024 14:36-0400 Body temperature 97.3 [degF] Treatment Wstr Work Phone: [facility] 07-10-2024 14:36-0400 Diastolic blood pressure 73 mm[Hg] Treatment Wstr Work Phone: [facility] 07-10-2024 14:36-0400 Heart rate 86 /min Treatment Wstr Work Phone: [facility] 07-10-2024 14:36-0400 SaO2% (BldA) [Mass fraction] 95 % Treatment Wstr Work Phone: [facility] 07-10-2024 14:36-0400 Systolic blood pressure 128 mm[Hg] Treatment Wstr Work Phone: [facility] 07-08-2024 08:20-0400 Body mass index (BMI) [Ratio] 38.97 kg/m2 Carrie Preciado APRN.ENERGY EFFICIENT SITE MANAGER Work Phone: [facility] 07-08-2024 08:20-0400 Body temperature 97.81 [degF] Carrie Preciado APRN.ENERGY EFFICIENT SITE MANAGER Work Phone: [facility] 07-08-2024 08:20-0400 Body weight 90.5 kg Carrie Preciado SOLUTIONS DEVELOPMENT ANALYST.ENERGY EFFICIENT SITE MANAGER Work Phone: [facility] 07-08-2024 08:20-0400 Diastolic blood pressure 70 mm[Hg] Carrie Yeeenter SOLUTIONS DEVELOPMENT ANALYST.ENERGY EFFICIENT SITE MANAGER Work Phone: [facility] 07-08-2024 08:20-0400 Heart rate 79 /min Carrie Preciado SOLUTIONS DEVELOPMENT ANALYST.ENERGY EFFICIENT SITE MANAGER Work Phone: [facility] 07-08-2024 08:20-0400 SaO2% (BldA) [Mass fraction] 94 % Carrie Preciado SOLUTIONS DEVELOPMENT ANALYST.ENERGY EFFICIENT SITE MANAGER Work Phone: [facility] 07-08-2024 08:20-0400 Systolic blood pressure 113 mm[Hg] Carrie Yeeenter SOLUTIONS DEVELOPMENT ANALYST.ENERGY EFFICIENT SITE MANAGER Work Phone: [facility] 06-06-2024 17:23-0400 Body mass index (BMI) [Ratio] 38.15 kg/m2 Fiona Durant MD Work Phone: [facility] 06-06-2024 17:23-0400 Body temperature 98.29 [degF] Fiona Durant MD Work Phone: [facility] 06-06-2024 17:23-0400 Body weight 88.6 kg Fiona Durant MD Work Phone: [facility] 06-06-2024 17:23-0400 Diastolic blood pressure 62 mm[Hg] Fiona Durant MD Work Phone: [facility] 06-06-2024 17:23-0400 Heart rate 86 /min Fiona Durant MD Work Phone: [facility] 06-06-2024 17:23-0400 Respiratory rate 16 /min Fiona Durant MD Work Phone: [facility] 06-06-2024 17:23-0400 SaO2% (BldA) [Mass fraction] 96 % Fiona Durant MD Work Phone: [facility] 06-06-2024 17:23-0400 Systolic blood pressure 114 mm[Hg] Fiona Durant MD Work Phone: [facility] 05-29-2024 14:19-0400 Body temperature 97.7 [degF] Treatment Wstr Work Phone: [facility] 05-29-2024 14:19-0400 Diastolic blood pressure 73 mm[Hg] Treatment Wstr Work Phone: [facility] 05-29-2024 14:19-0400 Heart rate 73 /min Treatment Wstr Work Phone: [facility] 05-29-2024 14:19-0400 SaO2% (BldA) [Mass fraction] 95 % Treatment Wstr Work Phone: [facility] 05-29-2024 14:19-0400 Systolic blood pressure 124 mm[Hg] Treatment Wstr Work Phone: [facility] 05-27-2024 08:19-0400 Body mass index (BMI) [Ratio] 38.28 kg/m2 Floresita Carbajal Work Phone: [facility] 05-27-2024 08:19-0400 Body temperature 97.9 [degF] Floresita Carbajal Work Phone: [facility] 05-27-2024 08:19-0400 Body weight 88.91 kg Floresita Carbajal Work Phone: [facility] 05-27-2024 08:19-0400 Diastolic blood pressure 73 mm[Hg] Floresita Carbajal Work Phone: [facility] 05-27-2024 08:19-0400 Heart rate 81 /min Floresita Carbajal Work Phone: [facility] 05-27-2024 08:19-0400 SaO2% (BldA) [Mass fraction] 95 % Floresita Carbajal Work Phone: [facility] 05-27-2024 08:19-0400 Systolic blood pressure 125 mm[Hg] Floresita Carbajal Work Phone: [facility] 04-17-2024 13:06-0400 Body temperature 97.3 [degF] Treatment Wstr Work Phone: [facility] 04-17-2024 13:06-0400 Diastolic blood pressure 78 mm[Hg] Treatment Wstr Work Phone: [facility] 04-17-2024 13:06-0400 Heart rate 75 /min Treatment Wstr Work Phone: [facility] 04-17-2024 13:06-0400 SaO2% (BldA) [Mass fraction] 96 % Treatment Wstr Work Phone: [facility] 04-17-2024 13:06-0400 Systolic blood pressure 124 mm[Hg] Treatment Wstr Work Phone: [facility] 04-15-2024 11:25-0400 Body mass index (BMI) [Ratio] 38.96 kg/m2 Sandoval Burgess MD Work Phone: [facility] 04-15-2024 11:25-0400 Body temperature 97.59 [degF] Sandoval Burgess MD Work Phone: [facility] 04-15-2024 11:25-0400 Body weight 90.49 kg Sandoval Burgess MD Work Phone: [facility] 04-15-2024 11:25-0400 Diastolic blood pressure 66 mm[Hg] Sandvoal Burgess MD Work Phone: [facility] 04-15-2024 11:25-0400 Heart rate 78 /min Sandoval Burgess MD Work Phone: [facility] 04-15-2024 11:25-0400 SaO2% (BldA) [Mass fraction] 97 % Sandoval Burgess MD Work Phone: [facility] 04-15-2024 11:25-0400 Systolic blood pressure 100 mm[Hg] Sandoval Burgess MD Work Phone: [facility] 03-06-2024 13:21-0400 Body temperature 97.11 [degF] Treatment Wstr Work Phone: [facility] 03-06-2024 13:21-0400 Diastolic blood pressure 69 mm[Hg] Treatment Wstr Work Phone: [facility] 03-06-2024 13:21-0400 Heart rate 78 /min Treatment Wstr Work Phone: [facility] 03-06-2024 13:21-0400 SaO2% (BldA) [Mass fraction] 96 % Treatment Wstr Work Phone: [facility] 03-06-2024 13:21-0400 Systolic blood pressure 115 mm[Hg] Treatment Wstr Work Phone: [facility] 03-05-2024 13:25-0400 Body mass index (BMI) [Ratio] 38.96 kg/m2 Sandoval Burgess MD Work Phone: [facility] 03-05-2024 13:25-0400 Body temperature 98.4 [degF] Sandoval Burgess MD Work Phone: [facility] 03-05-2024 13:25-0400 Body weight 90.49 kg Sandoval Burgess MD Work Phone: [facility] 03-05-2024 13:25-0400 Diastolic blood pressure 58 mm[Hg] Sandoval Burgess MD Work Phone: [facility] 03-05-2024 13:25-0400 Heart rate 69 /min Sandoval Burgess MD Work Phone: [facility] 03-05-2024 13:25-0400 SaO2% (BldA) [Mass fraction] 96 % Sandoval Burgess MD Work Phone: [facility] 03-05-2024 13:25-0400 Systolic blood pressure 102 mm[Hg] Sandvoal Burgess MD Work Phone: [facility] 02-20-2024 15:25-0400 Body mass index (BMI) [Ratio] 39.06 kg/m2 Fiona Durant MD Work Phone: [facility] 02-20-2024 15:25-0400 Body temperature 97.3 [degF] Fiona Durant MD Work Phone: [facility] 02-20-2024 15:25-0400 Body weight 90.72 kg Fiona Durant MD Work Phone: [facility] 02-20-2024 15:25-0400 Diastolic blood pressure 62 mm[Hg] Fiona Durant MD Work Phone: [facility] 02-20-2024 15:25-0400 Heart rate 74 /min Fiona Durant MD Work Phone: [facility] 02-20-2024 15:25-0400 Respiratory rate 18 /min Fiona Durant MD Work Phone: [facility] 02-20-2024 15:25-0400 SaO2% (BldA) [Mass fraction] 96 % Fiona Durant MD Work Phone: [facility] 02-20-2024 15:25-0400 Systolic blood pressure 110 mm[Hg] Fiona Durant MD Work Phone: [facility] 01-24-2024 13:47-0400 Body temperature 97.11 [degF] Treatment Wstr Work Phone: [facility] 01-24-2024 13:47-0400 Diastolic blood pressure 47 mm[Hg] Treatment Wstr Work Phone: [facility] 01-24-2024 13:47-0400 Heart rate 75 /min Treatment Wstr Work Phone: [facility] 01-24-2024 13:47-0400 SaO2% (BldA) [Mass fraction] 95 % Treatment Wstr Work Phone: [facility] 01-24-2024 13:47-0400 Systolic blood pressure 111 mm[Hg] Treatment Wstr Work Phone: [facility] 01-23-2024 13:36-0400 Body temperature 98.2 [degF] Sandoval Burgess MD Work Phone: [facility] 01-23-2024 13:36-0400 Body weight 91.4 kg Sandoval Burgess MD Work Phone: [facility] 01-23-2024 13:36-0400 Diastolic blood pressure 45 mm[Hg] Sandoval Burgess MD Work Phone: [facility] 01-23-2024 13:36-0400 Heart rate 77 /min Sandoval Burgess MD Work Phone: [facility] 01-23-2024 13:36-0400 SaO2% (BldA) [Mass fraction] 96 % Sandoval Burgess MD Work Phone: [facility] 01-23-2024 13:36-0400 Systolic blood pressure 97 mm[Hg] Sandoval Burgess MD Work Phone: [facility] 12-13-2023 14:00-0500 Body temperature 97.59 [degF] Treatment Wstr Work Phone: [facility] 12-13-2023 14:00-0500 Diastolic blood pressure 45 mm[Hg] Treatment Wstr Work Phone: [facility] 12-13-2023 14:00-0500 Heart rate 79 /min Treatment Wstr Work Phone: [facility] 12-13-2023 14:00-0500 Systolic blood pressure 117 mm[Hg] Treatment Wstr Work Phone: [facility] 12-12-2023 12:56-0500 Body temperature 97.81 [degF] Sandoval Burgess MD Work Phone: [facility] 12-12-2023 12:56-0500 Body weight 94.58 kg Sandoval Burgess MD Work Phone: [facility] 12-12-2023 12:56-0500 Diastolic blood pressure 42 mm[Hg] Sandoval Burgess MD Work Phone: [facility] 12-12-2023 12:56-0500 Heart rate 82 /min Sandoval Burgess MD Work Phone: [facility] 12-12-2023 12:56-0500 SaO2% (BldA) [Mass fraction] 99 % Sandoval Burgess MD Work Phone: [facility] 12-12-2023 12:56-0500 Systolic blood pressure 98 mm[Hg] Sandoval Burgess MD Work Phone: [facility] 11-16-2023 14:10-0500 Body temperature 97.2 [degF] Sandoval Burgess MD Work Phone: [facility] 11-16-2023 14:10-0500 Body weight 93.67 kg Sandoval Burgess MD Work Phone: [facility] 11-16-2023 14:10-0500 Diastolic blood pressure 69 mm[Hg] Sandoval Burgess MD Work Phone: [facility] 11-16-2023 14:10-0500 Heart rate 79 /min Sandoval Burgess MD Work Phone: [facility] 11-16-2023 14:10-0500 SaO2% (BldA) [Mass fraction] 95 % Sandoval Burgess MD Work Phone: [facility] 11-16-2023 14:10-0500 Systolic blood pressure 115 mm[Hg] Sandoval Burgess MD Work Phone: [facility] 08-08-2023 14:33-0400 Body temperature 97.3 [degF] Treatment Wstr Work Phone: [facility] 08-08-2023 14:33-0400 Diastolic blood pressure 71 mm[Hg] Treatment Wstr Work Phone: [facility] 08-08-2023 14:33-0400 Heart rate 85 /min Treatment Wstr Work Phone: [facility] 08-08-2023 14:33-0400 Respiratory rate 18 /min Treatment Wstr Work Phone: [facility] 08-08-2023 14:33-0400 Systolic blood pressure 111 mm[Hg] Treatment Wstr Work Phone: [facility] 08-01-2023 14:50-0400 Body temperature 97.7 [degF] Isabelnorma Francoy PA-C Work Phone: [facility] 08-01-2023 14:50-0400 Body weight 92.08 kg Isabel Athy PA-C Work Phone: [facility] 08-01-2023 14:50-0400 Diastolic blood pressure 74 mm[Hg] Isabel Athy PA-C Work Phone: [facility] 08-01-2023 14:50-0400 Heart rate 78 /min Isabel Athy PA-C Work Phone: [facility] 08-01-2023 14:50-0400 Respiratory rate 18 /min Isabel Athy PA-C Work Phone: [facility] 08-01-2023 14:50-0400 SaO2% (BldA) [Mass fraction] 93 % Isabel Athy PA-C Work Phone: [facility] 08-01-2023 14:50-0400 Systolic blood pressure 117 mm[Hg] Isabel Athy PA-C Work Phone: [facility] 06-26-2023 10:07-0400 Body temperature 97.5 [degF] Sandoval Burgess MD Work Phone: [facility] 06-26-2023 10:07-0400 Body weight 93.21 kg Sandoval Burgess MD Work Phone: [facility] 06-26-2023 10:07-0400 Diastolic blood pressure 73 mm[Hg] Sandoval Burgess MD Work Phone: [facility] 06-26-2023 10:07-0400 Heart rate 83 /min Sandoval Burgess MD Work Phone: [facility] 06-26-2023 10:07-0400 SaO2% (BldA) [Mass fraction] 94 % Sandoval Burgess MD Work Phone: [facility] 06-26-2023 10:07-0400 Systolic blood pressure 110 mm[Hg] Sandoval Burgess MD Work Phone: [facility] 06-20-2023 15:21-0400 Body weight 92.99 kg Ann Berlin PA-C Work Phone: [facility] 06-20-2023 15:21-0400 Diastolic blood pressure 70 mm[Hg] Ann Berlin PA-C Work Phone: [facility] 06-20-2023 15:21-0400 Heart rate 80 /min Ann Berlin PA-C Work Phone: [facility] 06-20-2023 15:21-0400 Respiratory rate 14 /min Ann Berlin PA-C Work Phone: [facility] 06-20-2023 15:21-0400 SaO2% (BldA) [Mass fraction] 94 % Ann Berlin PA-C Work Phone: [facility] 06-20-2023 15:21-0400 Systolic blood pressure 107 mm[Hg] Ann Berlin PA-C Work Phone: [facility] 05-25-2023 14:44-0400 Body temperature 98.91 [degF] Perla Lotus SOLUTIONS DEVELOPMENT ANALYST.ENERGY EFFICIENT SITE MANAGER Work Phone: [facility] 05-25-2023 14:44-0400 Body weight 92.72 kg Perla Lotus SOLUTIONS DEVELOPMENT ANALYST.ENERGY EFFICIENT SITE MANAGER Work Phone: [facility] 05-25-2023 14:44-0400 Diastolic blood pressure 62 mm[Hg] Perla Lotus SOLUTIONS DEVELOPMENT ANALYST.ENERGY EFFICIENT SITE MANAGER Work Phone: [facility] 05-25-2023 14:44-0400 Heart rate 93 /min Perla Lotus SOLUTIONS DEVELOPMENT ANALYST.ENERGY EFFICIENT SITE MANAGER Work Phone: [facility] 05-25-2023 14:44-0400 Respiratory rate 22 /min Perla Lotus SOLUTIONS DEVELOPMENT ANALYST.ENERGY EFFICIENT SITE MANAGER Work Phone: [facility] 05-25-2023 14:44-0400 SaO2% (BldA) [Mass fraction] 93 % Perla Krausk SOLUTIONS DEVELOPMENT ANALYST.ENERGY EFFICIENT SITE MANAGER Work Phone: [facility] 05-25-2023 14:44-0400 Systolic blood pressure 110 mm[Hg] Perla Krausruddy FLORES.ENERGY EFFICIENT SITE MANAGER Work Phone: [facility] 05-22-2023 08:31-0400 Body height 152.4 cm Fiona Durant MD Work Phone: [facility] 05-22-2023 08:31-0400 Body weight 91.63 kg Fiona Durant MD Work Phone: [facility] 05-22-2023 08:31-0400 Diastolic blood pressure 80 mm[Hg] Fiona Durant MD Work Phone: [facility] 05-22-2023 08:31-0400 Heart rate 80 /min Fiona Durant MD Work Phone: [facility] 05-22-2023 08:31-0400 Respiratory rate 16 /min Fiona Durant MD Work Phone: [facility] 05-22-2023 08:31-0400 Systolic blood pressure 110 mm[Hg] Fiona Durant MD Work Phone: [facility] 05-16-2023 14:19-0400 Body temperature 97.81 [degF] Treatment Wstr Work Phone: [facility] 05-16-2023 14:19-0400 Diastolic blood pressure 50 mm[Hg] Treatment Wstr Work Phone: [facility] 05-16-2023 14:19-0400 Heart rate 79 /min Treatment Wstr Work Phone: [facility] 05-16-2023 14:19-0400 SaO2% (BldA) [Mass fraction] 94 % Treatment Wstr Work Phone: [facility] 05-16-2023 14:19-0400 Systolic blood pressure 114 mm[Hg] Treatment Wstr Work Phone: [facility] 05-15-2023 10:23-0400 Body temperature 97 [degF] Sandoval Burgess MD Work Phone: [facility] 05-15-2023 10:23-0400 Body weight 92.31 kg Sandoval Burgess MD Work Phone: [facility] 05-15-2023 10:23-0400 Diastolic blood pressure 71 mm[Hg] Sandoval Burgess MD Work Phone: [facility] 05-15-2023 10:23-0400 Heart rate 74 /min Sandoval Burgess MD Work Phone: [facility] 05-15-2023 10:23-0400 SaO2% (BldA) [Mass fraction] 95 % Sandoval Burgess MD Work Phone: [facility] 05-15-2023 10:23-0400 Systolic blood pressure 109 mm[Hg] Sandoval Burgess MD Work Phone: [facility] 04-16-2023 18:41-0400 Body temperature 98.71 [degF] Perla Lotus SOLUTIONS DEVELOPMENT ANALYST.ENERGY EFFICIENT SITE MANAGER Work Phone: [facility] 04-16-2023 18:41-0400 Body weight 92.63 kg Perla Lotus SOLUTIONS DEVELOPMENT ANALYST.ENERGY EFFICIENT SITE MANAGER Work Phone: [facility] 04-16-2023 18:41-0400 Diastolic blood pressure 78 mm[Hg] Perla Lotus SOLUTIONS DEVELOPMENT ANALYST.ENERGY EFFICIENT SITE MANAGER Work Phone: [facility] 04-16-2023 18:41-0400 Heart rate 87 /min Perla Lotus SOLUTIONS DEVELOPMENT ANALYST.ENERGY EFFICIENT SITE MANAGER Work Phone: [facility] 04-16-2023 18:41-0400 Respiratory rate 21 /min Perla Lotus SOLUTIONS DEVELOPMENT ANALYST.ENERGY EFFICIENT SITE MANAGER Work Phone: [facility] 04-16-2023 18:41-0400 SaO2% (BldA) [Mass fraction] 98 % Perla Lotus SOLUTIONS DEVELOPMENT ANALYST.ENERGY EFFICIENT SITE MANAGER Work Phone: [facility] 07-10-2023 18:41-0400 Systolic blood pressure 118 mm[Hg] Perla Gautam SANDRAYesicaENERGY EFFICIENT SITE MANAGER Work Phone: [facility] 04-04-2023 11:00-0400 Body temperature 97.9 [degF] Treatment Wstr Work Phone: [facility] 04-04-2023 11:00-0400 Diastolic blood pressure 61 mm[Hg] Treatment Wstr Work Phone: [facility] 04-04-2023 11:00-0400 Heart rate 87 /min Treatment Wstr Work Phone: [facility] 04-04-2023 11:00-0400 Systolic blood pressure 135 mm[Hg] Treatment Wstr Work Phone: [facility] 04-03-2023 10:47-0400 Body temperature 97.11 [degF] Telly Masci DO Work Phone: [facility] 04-03-2023 10:47-0400 Body weight 91.63 kg Telly Masci DO Work Phone: [facility] 04-03-2023 10:47-0400 Diastolic blood pressure 67 mm[Hg] Telly Masci DO Work Phone: [facility] 04-03-2023 10:47-0400 Heart rate 87 /min Telly Masci DO Work Phone: [facility] 04-03-2023 10:47-0400 SaO2% (BldA) [Mass fraction] 96 % Telly Masci DO Work Phone: [facility] 04-03-2023 10:47-0400 Systolic blood pressure 123 mm[Hg] Telly Masci DO Work Phone: [facility] 03-19-2023 11:06-0400 Body height 152.8 cm Pulm Wstr Work Phone: [facility] 03-19-2023 11:06-0400 Body weight 90.72 kg Pulm Wstr Work Phone: [facility] 03-19-2023 11:06-0400 Heart rate 84 /min Pulm Wstr Work Phone: [facility] 03-19-2023 11:06-0400 Respiratory rate 14 /min Pulm Wstr Work Phone: [facility] 03-19-2023 11:06-0400 SaO2% (BldA) [Mass fraction] 94 % Pulm Wstr Work Phone: [facility] 02-21-2023 12:00-0400 Body temperature 97.39 [degF] Treatment Wstr Work Phone: [facility] 02-21-2023 12:00-0400 Diastolic blood pressure 62 mm[Hg] Treatment Wstr Work Phone: [facility] 02-21-2023 12:00-0400 Heart rate 72 /min Treatment Wstr Work Phone: [facility] 02-21-2023 12:00-0400 Systolic blood pressure 105 mm[Hg] Treatment Wstr Work Phone: [facility] 02-20-2023 10:55-0400 Body temperature 97.39 [degF] Telly Masci DO Work Phone: [facility] 02-20-2023 10:55-0400 Body weight 93.21 kg Telly Masci DO Work Phone: [facility] 02-20-2023 10:55-0400 Diastolic blood pressure 63 mm[Hg] Telly Masci DO Work Phone: [facility] 02-20-2023 10:55-0400 Heart rate 78 /min Telly Masci DO Work Phone: [facility] 02-20-2023 10:55-0400 SaO2% (BldA) [Mass fraction] 95 % Telly Masci DO Work Phone: [facility] 02-20-2023 10:55-0400 Systolic blood pressure 135 mm[Hg] Telly Masci DO Work Phone: [facility] 02-01-2023 14:38-0400 Body weight 94.35 kg Bebejennifer Tadeoallie GOLDCAMP RECREATION SPECIALIST Work Phone: [facility] 02-01-2023 14:38-0400 Diastolic blood pressure 58 mm[Hg] Bebe Flores SOLUTIONS DEVELOPMENT ANALYST.CAMP RECREATION SPECIALIST Work Phone: [facility] 02-01-2023 14:38-0400 Heart rate 75 /min Bebe Flores SOLUTIONS DEVELOPMENT ANALYST.CAMP RECREATION SPECIALIST Work Phone: [facility] 02-01-2023 14:38-0400 Respiratory rate 16 /min Bebe Flores SOLUTIONS DEVELOPMENT ANALYST.CAMP RECREATION SPECIALIST Work Phone: [facility] 02-01-2023 14:38-0400 SaO2% (BldA) [Mass fraction] 95 % Bebe Flores SOLUTIONS DEVELOPMENT ANALYST.CAMP RECREATION SPECIALIST Work Phone: [facility] 02-01-2023 14:38-0400 Systolic blood pressure 120 mm[Hg] Bebe Flores SOLUTIONS DEVELOPMENT ANALYST.CAMP RECREATION SPECIALIST Work Phone: [facility] 01-25-2023 10:49-0400 Body temperature 97.59 [degF] Kathy Older SOLUTIONS DEVELOPMENT ANALYST.ENERGY EFFICIENT SITE MANAGER Work Phone: [facility] 01-25-2023 10:49-0400 Body weight 93.44 kg Kathy Older SOLUTIONS DEVELOPMENT ANALYST.ENERGY EFFICIENT SITE MANAGER Work Phone: [facility] 01-25-2023 10:49-0400 Diastolic blood pressure 70 mm[Hg] Kathy Older SOLUTIONS DEVELOPMENT ANALYST.ENERGY EFFICIENT SITE MANAGER Work Phone: [facility] 01-25-2023 10:49-0400 Heart rate 89 /min Kathy Older SOLUTIONS DEVELOPMENT ANALYST.ENERGY EFFICIENT SITE MANAGER Work Phone: [facility] 01-25-2023 10:49-0400 Respiratory rate 16 /min Kathy Older SOLUTIONS DEVELOPMENT ANALYST.ENERGY EFFICIENT SITE MANAGER Work Phone: [facility] 01-25-2023 10:49-0400 SaO2% (BldA) [Mass fraction] 96 % Kathy Older SOLUTIONS DEVELOPMENT ANALYST.ENERGY EFFICIENT SITE MANAGER Work Phone: [facility] 01-25-2023 10:49-0400 Systolic blood pressure 128 mm[Hg] Kathy Older SOLUTIONS DEVELOPMENT ANALYST.ENERGY EFFICIENT SITE MANAGER Work Phone: [facility] 01-09-2023 11:02-0400 Body temperature 97.59 [degF] Carrie Yeeenter SOLUTIONS DEVELOPMENT ANALYST.ENERGY EFFICIENT SITE MANAGER Work Phone: [facility] 01-09-2023 11:02-0400 Body weight 95.48 kg Carrie Preciado SOLUTIONS DEVELOPMENT ANALYST.ENERGY EFFICIENT SITE MANAGER Work Phone: [facility] 01-09-2023 11:02-0400 Diastolic blood pressure 71 mm[Hg] Carrie Yeeenter SOLUTIONS DEVELOPMENT ANALYST.ENERGY EFFICIENT SITE MANAGER Work Phone: [facility] 01-09-2023 11:02-0400 Heart rate 88 /min Carrie Yeeenter SOLUTIONS DEVELOPMENT ANALYST.ENERGY EFFICIENT SITE MANAGER Work Phone: [facility] 01-09-2023 11:02-0400 SaO2% (BldA) [Mass fraction] 92 % Carrie Yeeenter SOLUTIONS DEVELOPMENT ANALYST.ENERGY EFFICIENT SITE MANAGER Work Phone: [facility] 01-09-2023 11:02-0400 Systolic blood pressure 143 mm[Hg] Carrie Yeeenter SOLUTIONS DEVELOPMENT ANALYST.ENERGY EFFICIENT SITE MANAGER Work Phone: [facility] 10-24-2022 15:28-0500 Body temperature 97.39 [degF] Fiona Durant MD Work Phone: [facility] 10-24-2022 15:28-0500 Body weight 95.25 kg Fiona Durant MD Work Phone: [facility] 10-24-2022 15:28-0500 Diastolic blood pressure 68 mm[Hg] Fiona Durant MD Work Phone: [facility] 10-24-2022 15:28-0500 Heart rate 79 /min Fiona Durant MD Work Phone: [facility] 10-24-2022 15:28-0500 Respiratory rate 18 /min Fiona Durant MD Work Phone: [facility] 10-24-2022 15:28-0500 SaO2% (BldA) [Mass fraction] 95 % Fiona Durant MD Work Phone: [facility] 10-24-2022 15:28-0500 Systolic blood pressure 128 mm[Hg] Fiona Durant MD Work Phone: [facility] 10-18-2022 13:28-0500 Body temperature 97.7 [degF] Treatment Wstr Work Phone: [facility] 10-18-2022 13:28-0500 Diastolic blood pressure 52 mm[Hg] Treatment Wstr Work Phone: [facility] 10-18-2022 13:28-0500 Heart rate 95 /min Treatment Wstr Work Phone: [facility] 10-18-2022 13:28-0500 SaO2% (BldA) [Mass fraction] 97 % Treatment Wstr Work Phone: [facility] 10-18-2022 13:28-0500 Systolic blood pressure 149 mm[Hg] Treatment Wstr Work Phone: [facility] 10-17-2022 10:17-0500 Body temperature 97.59 [degF] Anca Huddleston MD Work Phone: [facility] 10-17-2022 10:17-0500 Body weight 95.03 kg Anca Huddleston MD Work Phone: [facility] 10-17-2022 10:17-0500 Diastolic blood pressure 63 mm[Hg] Anca Huddleston MD Work Phone: [facility] 10-17-2022 10:17-0500 Heart rate 86 /min Anca Huddleston MD Work Phone: [facility] 10-17-2022 10:17-0500 SaO2% (BldA) [Mass fraction] 95 % Anca Huddleston MD Work Phone: [facility] 10-17-2022 10:17-0500 Systolic blood pressure 131 mm[Hg] Anca Huddleston MD Work Phone: [facility] 09-27-2022 13:46-0500 Body temperature 97.3 [degF] Treatment Wstr Work Phone: [facility] 09-27-2022 13:46-0500 Diastolic blood pressure 73 mm[Hg] Treatment Wstr Work Phone: [facility] 09-27-2022 13:46-0500 Heart rate 86 /min Treatment Wstr Work Phone: [facility] 09-27-2022 13:46-0500 Systolic blood pressure 149 mm[Hg] Treatment Wstr Work Phone: [facility] 09-26-2022 10:02-0500 Body temperature 96.49 [degF] Anca Huddleston MD Work Phone: [facility] 09-26-2022 10:02-0500 Body weight 94.12 kg Anca Huddlseton MD Work Phone: [facility] 09-26-2022 10:02-0500 Diastolic blood pressure 41 mm[Hg] Anca Huddleston MD Work Phone: [facility] 09-26-2022 10:02-0500 Heart rate 77 /min Anca Huddleston MD Work Phone: [facility] 09-26-2022 10:02-0500 SaO2% (BldA) [Mass fraction] 96 % Anca Huddleston MD Work Phone: [facility] 09-26-2022 10:02-0500 Systolic blood pressure 126 mm[Hg] Anca Huddleston MD Work Phone: [facility] 09-06-2022 13:39-0500 Body temperature 97.9 [degF] Treatment Wstr Work Phone: [facility] 09-06-2022 13:39-0500 Diastolic blood pressure 55 mm[Hg] Treatment Wstr Work Phone: [facility] 09-06-2022 13:39-0500 Heart rate 76 /min Treatment Wstr Work Phone: [facility] 09-06-2022 13:39-0500 Systolic blood pressure 133 mm[Hg] Treatment Wstr Work Phone: [facility] 08-14-2022 10:56-0500 Body height 153 cm Anca Huddleston MD Work Phone: [facility] 08-14-2022 10:56-0500 Body temperature 97.11 [degF] Anca Huddleston MD Work Phone: [facility] 08-14-2022 10:56-0500 Body weight 90.95 kg Anca Huddleston MD Work Phone: [facility] 08-14-2022 10:56-0500 Diastolic blood pressure 56 mm[Hg] Anca Huddleston MD Work Phone: [facility] 08-14-2022 10:56-0500 Heart rate 72 /min Anca Huddleston MD Work Phone: [facility] 08-14-2022 10:56-0500 SaO2% (BldA) [Mass fraction] 96 % Anca Huddleston MD Work Phone: [facility] 08-14-2022 10:56-0500 Systolic blood pressure 119 mm[Hg] Anca Huddleston MD Work Phone: [facility] 07-24-2022 13:57-0400 Body temperature 97.59 [degF] [place] Preciado SOLUTIONS DEVELOPMENT ANALYST.ENERGY EFFICIENT SITE MANAGER Work Phone: [facility] 07-24-2022 13:57-0400 Body weight 90.95 kg [place] Preciado SOLUTIONS DEVELOPMENT ANALYST.ENERGY EFFICIENT SITE MANAGER Work Phone: [facility] 07-24-2022 13:57-0400 Diastolic blood pressure 54 mm[Hg] [place] Preciado SOLUTIONS DEVELOPMENT ANALYST.ENERGY EFFICIENT SITE MANAGER Work Phone: [facility] 07-24-2022 13:57-0400 Heart rate 81 /min [place] Preciado SOLUTIONS DEVELOPMENT ANALYST.ENERGY EFFICIENT SITE MANAGER Work Phone: [facility] 07-24-2022 13:57-0400 SaO2% (BldA) [Mass fraction] 94 % [place] Preciado SOLUTIONS DEVELOPMENT ANALYST.ENERGY EFFICIENT SITE MANAGER Work Phone: [facility] 07-24-2022 13:57-0400 Systolic blood pressure 127 mm[Hg] [place] Preciado SOLUTIONS DEVELOPMENT ANALYST.ENERGY EFFICIENT SITE MANAGER Work Phone: [facility] 07-19-2022 16:48-0400 Body weight 90.72 kg Fiona Talampas MD Work Phone: [facility] 07-19-2022 16:48-0400 Diastolic blood pressure 62 mm[Hg] Fiona Durant MD Work Phone: [facility] 07-19-2022 16:48-0400 Heart rate 73 /min Fiona Durant MD Work Phone: [facility] 07-19-2022 16:48-0400 SaO2% (BldA) [Mass fraction] 91 % Fiona Durant MD Work Phone: [facility] 07-19-2022 16:48-0400 Systolic blood pressure 108 mm[Hg] Fiona Durant MD Work Phone: [facility] 07-04-2022 14:00-0400 Body temperature 96.8 [degF] Treatment Wstr Work Phone: [facility] 07-04-2022 14:00-0400 Diastolic blood pressure 52 mm[Hg] Treatment Wstr Work Phone: [facility] 07-04-2022 14:00-0400 Heart rate 97 /min Treatment Wstr Work Phone: [facility] 07-04-2022 14:00-0400 Systolic blood pressure 134 mm[Hg] Treatment Wstr Work Phone: [facility] 06-13-2022 14:00-0400 Body temperature 96.8 [degF] Treatment Wstr Work Phone: [facility] 06-13-2022 14:00-0400 Diastolic blood pressure 58 mm[Hg] Treatment Wstr Work Phone: [facility] 06-13-2022 14:00-0400 Heart rate 79 /min Treatment Wstr Work Phone: [facility] 06-13-2022 14:00-0400 Systolic blood pressure 106 mm[Hg] Treatment Wstr Work Phone: [facility] 05-23-2022 09:31-0400 Body temperature 97 [degF] Treatment Wstr Work Phone: [facility] 05-23-2022 09:31-0400 Body weight 89.36 kg Treatment Wstr Work Phone: [facility] 05-23-2022 09:31-0400 Diastolic blood pressure 66 mm[Hg] Treatment Wstr Work Phone: [facility] 05-23-2022 09:31-0400 Heart rate 77 /min Treatment Wstr Work Phone: [facility] 05-23-2022 09:31-0400 Respiratory rate 16 /min Treatment Wstr Work Phone: [facility] 05-23-2022 09:31-0400 SaO2% (BldA) [Mass fraction] 95 % Treatment Wstr Work Phone: [facility] 05-23-2022 09:31-0400 Systolic blood pressure 147 mm[Hg] Treatment Wstr Work Phone: [facility] 05-08-2022 09:03-0400 Body temperature 97.59 [degF] Anca Huddleston MD Work Phone: [facility] 05-08-2022 09:03-0400 Body weight 90.04 kg Anca Huddleston MD Work Phone: [facility] 05-08-2022 09:03-0400 Diastolic blood pressure 64 mm[Hg] Anca Huddleston MD Work Phone: [facility] 05-08-2022 09:03-0400 Heart rate 78 /min Anca Huddleston MD Work Phone: [facility] 05-08-2022 09:03-0400 SaO2% (BldA) [Mass fraction] 95 % Anca Huddleston MD Work Phone: [facility] 05-08-2022 09:03-0400 Systolic blood pressure 108 mm[Hg] Anca Huddleston MD Work Phone: [facility] 04-18-2022 13:00-0400 Body temperature 96.6 [degF] Treatment Wstr Work Phone: [facility] 04-18-2022 13:00-0400 Body weight 88.91 kg Treatment Wstr Work Phone: [facility] 04-18-2022 13:00-0400 Diastolic blood pressure 59 mm[Hg] Treatment Wstr Work Phone: [facility] 04-18-2022 13:00-0400 Heart rate 84 /min Treatment Wstr Work Phone: [facility] 04-18-2022 13:00-0400 Systolic blood pressure 129 mm[Hg] Treatment Wstr Work Phone: [facility] 04-17-2022 17:03-0400 Body weight 88.91 kg Fiona Durant MD Work Phone: [facility] 04-17-2022 17:03-0400 Diastolic blood pressure 70 mm[Hg] Fiona Durant MD Work Phone: [facility] 04-17-2022 17:03-0400 Heart rate 78 /min Fiona Durant MD Work Phone: [facility] 04-17-2022 17:03-0400 SaO2% (BldA) [Mass fraction] 96 % Fiona Durant MD Work Phone: [facility] 04-17-2022 17:03-0400 Systolic blood pressure 122 mm[Hg] Fiona Durant MD Work Phone: [facility] 03-29-2022 14:54-0400 Body temperature 97.9 [degF] Treatment Wstr Work Phone: [facility] 03-29-2022 14:54-0400 Diastolic blood pressure 50 mm[Hg] Treatment Wstr Work Phone: [facility] 03-29-2022 14:54-0400 Heart rate 67 /min Treatment Wstr Work Phone: [facility] 03-29-2022 14:54-0400 Systolic blood pressure 120 mm[Hg] Treatment Wstr Work Phone: [facility] 03-28-2022 11:18-0400 Body temperature 96.91 [degF] Anca Huddleston MD Work Phone: [facility] 03-28-2022 11:18-0400 Body weight 88.91 kg Anca Huddleston MD Work Phone: [facility] 03-28-2022 11:18-0400 Diastolic blood pressure 54 mm[Hg] Anca Huddleston MD Work Phone: [facility] 03-28-2022 11:18-0400 Heart rate 74 /min Anca Huddleston MD Work Phone: [facility] 03-28-2022 11:18-0400 SaO2% (BldA) [Mass fraction] 95 % Anca Huddleston MD Work Phone: [facility] 03-28-2022 11:18-0400 Systolic blood pressure 109 mm[Hg] Anca Huddleston MD Work Phone: [facility] 03-03-2022 14:03-0400 Body temperature 97.7 [degF] Anca Huddleston MD Work Phone: [facility] 03-03-2022 14:03-0400 Body weight 88.68 kg Anca Huddleston MD Work Phone: [facility] 03-03-2022 14:03-0400 Diastolic blood pressure 59 mm[Hg] Anca Huddleston MD Work Phone: [facility] 03-03-2022 14:03-0400 Heart rate 75 /min Anca Huddleston MD Work Phone: [facility] 03-03-2022 14:03-0400 SaO2% (BldA) [Mass fraction] 96 % Anca Huddleston MD Work Phone: [facility] 03-03-2022 14:03-0400 Systolic blood pressure 111 mm[Hg] Anca Huddleston MD Work Phone: [facility] 02-15-2022 10:08-0400 Body temperature 97 [degF] Treatment Wstr Work Phone: [facility] 02-15-2022 10:08-0400 Diastolic blood pressure 63 mm[Hg] Treatment Wstr Work Phone: [facility] 02-15-2022 10:08-0400 Heart rate 83 /min Treatment Wstr Work Phone: [facility] 02-15-2022 10:08-0400 Systolic blood pressure 131 mm[Hg] Treatment Wstr Work Phone: [facility] 02-14-2022 09:02-0400 Body temperature 97.3 [degF] Anca Huddleston MD Work Phone: [facility] 02-14-2022 09:02-0400 Body weight 87.77 kg Anca Huddleston MD Work Phone: [facility] 02-14-2022 09:02-0400 Diastolic blood pressure 59 mm[Hg] Anca Huddleston MD Work Phone: [facility] 02-14-2022 09:02-0400 Heart rate 68 /min Anca uHddleston MD Work Phone: [facility] 02-14-2022 09:02-0400 SaO2% (BldA) [Mass fraction] 96 % Anca Huddleston MD Work Phone: [facility] 02-14-2022 09:02-0400 Systolic blood pressure 119 mm[Hg] Anca Huddleston MD Work Phone: [facility] 01-25-2022 14:32-0400 Body temperature 97.59 [degF] Treatment Wstr Work Phone: [facility] 01-25-2022 14:32-0400 Diastolic blood pressure 66 mm[Hg] Treatment Wstr Work Phone: [facility] 01-25-2022 14:32-0400 Heart rate 77 /min Treatment Wstr Work Phone: [facility] 01-25-2022 14:32-0400 SaO2% (BldA) [Mass fraction] 97 % Treatment Wstr Work Phone: [facility] 01-25-2022 14:32-0400 Systolic blood pressure 140 mm[Hg] Treatment Wstr Work Phone: [facility] 01-04-2022 14:29-0400 Body temperature 97.3 [degF] Treatment Wstr Work Phone: [facility] 01-04-2022 14:29-0400 Body weight 88.22 kg Treatment Wstr Work Phone: [facility] 01-04-2022 14:29-0400 Diastolic blood pressure 53 mm[Hg] Treatment Wstr Work Phone: [facility] 01-04-2022 14:29-0400 Heart rate 82 /min Treatment Wstr Work Phone: [facility] 01-04-2022 14:29-0400 SaO2% (BldA) [Mass fraction] 95 % Treatment Wstr Work Phone: [facility] 01-04-2022 14:29-0400 Systolic blood pressure 114 mm[Hg] Treatment Wstr Work Phone: [facility] 01-03-2022 16:38-0400 Body temperature 97.81 [degF] Anca Huddleston MD Work Phone: [facility] 01-03-2022 16:38-0400 Body weight 88.45 kg Anca Huddleston MD Work Phone: [facility] 01-03-2022 16:38-0400 Diastolic blood pressure 53 mm[Hg] Anca Huddleston MD Work Phone: [facility] 01-03-2022 16:38-0400 Heart rate 70 /min Anca Huddleston MD Work Phone: [facility] 01-03-2022 16:38-0400 Systolic blood pressure 112 mm[Hg] Anca Huddleston MD Work Phone: [facility] 12-26-2021 15:02-0400 Body weight 86.64 kg Fiona Durant MD Work Phone: [facility] 12-26-2021 15:02-0400 Diastolic blood pressure 60 mm[Hg] Fiona Durant MD Work Phone: [facility] 12-26-2021 15:02-0400 Heart rate 78 /min Fiona Durant MD Work Phone: [facility] 12-26-2021 15:02-0400 Systolic blood pressure 102 mm[Hg] Fiona Durant MD Work Phone: [facility] Encounters Encounter Date Encounter Type Care Provider Facility Start: 04-27-2025 Evaluation and management of inpatient Dr. 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: Hematology/Oncology Comment on [...] Work Phone: Hematology/Oncology Comment on above: avs 04/08 Start: 04-08-2025 End: 04-08-2025 Patient encounter procedure Sandoval Burgess MD Work Phone: Hematology/Oncology Start: 04-08-2025 End: 04-08-2025 ambulatory Sandoval Burgess MD Work Phone: Hematology/Oncology Comment on above: 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) (Primary Dx) Start: 03-31-2025 End: 03-31-2025 ambulatory FIONA D [facility] Facility:[facility] Start: 03-20-2025 End: 03-20-2025 Telephone encounter Zita Torres [facility] [id number] Comment on above: Appointment (PreOp Rickey jaquez) Start: 03-20-2025 End: 03-20-2025 [facility] Start: 03-20-2025 End: 03-20-2025 Patient encounter procedure Georgina Morgan MD Work Phone: Pulmonary Medicine Comment on above: Malignant neoplasm o f right lung, unspecified part of lung (HCC) (Primary Dx); Lymphadenopathy; Moderate COPD (chronic obstructive pulmonary disease) (HCC); Cigarette smoker; Hypokalemia Start: 03-20-2025 End: 03-20-2025 ambulatory FIONA D TALAMPAS Facility:[facility] Start: 03-19-2025 End: 03-19-2025 ambulatory Heriberto Weldon [...] Dx) Start: 03-09-2025 ambulatory SANDOVAL BURGESS Facilit y:[facility] Start: 03-09-2025 End: 03-09-2025 Subsequent hospital visit by physician Injection [facility] [place] [facility] CT Comment on above: 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) [C34.90, C79.51] Start: 02-27-2025 End: 02-27-2025 ambulatory FIONA DURANT Facility:[facility] Start: 02-26-2025 End: 02-26-2025 ambulatory FIONA DURANT Facility:[facility] Start: 02-25-2025 End: 02-25-2025 Office outpatient visit 25 minutes Fiona Durant MD Work Phone: Internal [facility] [place] Comment on above: Cough (Primary Dx); Ocular migraine; Allergic rhinitis, unspecified seasonality, unspecified trigger; Coronary artery disease involving koi coronary artery of koi heart without angina pectoris; 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); History of OR (myocardial infarction); Migraine with aura and without status migrainosus, not intractable Start: 02-25-2025 End: 02-25-2025 ambulatory FIONA Jairo MELVINAS Facility:[facility] Start: 02-24-2025 End: 02-24-2025 [facility] Start: 02-05-2025 End: 02-05-2025 ambulatory Treatment Rm 3 José Miguel [facility] Work Phone: Hematology/Oncology Comment on [...] above: avs 02/04 Start: 01-29-2025 End: 01-29-2025 Patient encounter procedure Therese JERNIGAN -[facility] Work Phone: Start: 01-29-2025 End: 01-29-2025 ambulatory Therese JERNIGAN Facility:[facility] Start: 01-22-2025 ambulatory Therese JERNIGAN Facility:[facility] Start: 01-14-2025 End: 01-14-2025 ambulatory Treatment Rm 13 José Miguel [facility] Work Phone: Hematology/Oncology Comment on above: 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) (Primary Dx) Start: 01-13-2025 End: 01-13-2025 Patient encounter procedure Carrie Preciado APRN.ENERGY EFFICIENT SITE MANAGER Work Phone: Hematology/Oncology Start: 01-13-2025 End: 01-13-2025 ambulatory Carrie Preciado SOLUTIONS DEVELOPMENT ANALYST.ENERGY EFFICIENT SITE MANAGER Work Phone: Hematology/Oncology Comment on above: 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) Start: 01-01-2025 ambulatory Therese JERNIGAN Facility:[facility] Start: 12-25-2024 End: 12-25-2024 ambulatory Treatment Rm 3 José Miguel [facility] Work Phone: Hematology/Oncology Comment on above: 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) (Primary Dx) Start: 12-24-2024 End: 12-24-2024 Patient encounter procedure Sandoval Burgess MD Work Phone: Hematology/Oncology Start: 12-24-2024 End: 12-24-2024 ambulatory Sandoval Burgess MD Work Phone: Hematology/Oncology Comment on above: 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) (Primary Dx) Start: 12-09-2024 ambulatory Therese JERNIGAN Facility:[facility] Start: 12-04-2024 End: 12-04-2024 ambulatory Treatment Rm 3 José Miguel [facility] Work Phone: Hematology/Oncology Comment on above: Cancer of trachea, b ronchus, and lung (HCC) (Primary Dx) Start: 12-02-2024 End: 01-02-2025 ambulatory Fiona Durant MD Work Phone: Internal [facility] [place] Start: 12-01-2024 End: 12-01-2024 ambulatory FIONA DURANT Facility:[facility] Start: 12-01-2024 End: 12-01-2024 Office outpatient visit 25 minutes Fiona Durant MD Work Phone: Internal Medicine [place] Comment on above: Acute bronchitis wit h [...] encounter procedure Fiona Durant MD Work Phone: [facility] Start: 11-26-2024 End: 11-26-2024 Telephone encounter Sandoval Burgess MD Work Phone: Hematology/Oncology Comment on above: Patient Update (Gr[place] ist) Start: 11-25-2024 End: 01-25-2025 Follow-up encounter Floresita Carbajal Work Phone: Hematology/Oncology Start: 11-25-2024 End: 11-26-2024 Telephone encounter Floresita Carbajal Work Phone: Hematology/Oncology Start: 11-21-2024 End: 11-21-2024 Telephone encounter Christina Amaro RN Work Phone: Hematology/Oncology Comment on above: Care Coordination (F oljackson Up) Start: 11-19-2024 End: 11-19-2024 ambulatory FIONA DURANT Facility:[facility] Start: 11-19-2024 End: 11-19-2024 Subsequent hospital visit by physician Ct [facility] (I-Stat) Work Phone: Cat Scan Comment on above: Dyspnea and respirat ory abnormalities [R06.00, R06.89] Start: 11-19-2024 End: 11-19-2024 Telephone encounter Christina Amaro RN Work Phone: Hematology/Oncology Comment on above: Results (radiology) Start: 11-19-2024 End: 11-19-2024 Patient encounter procedure Sandoval Burgess MD Work Phone: Hematology/Oncology Start: 11-19-2024 End: 11-19-2024 Subsequent hospital visit by physician Xr [facility] Quentin Mob Work Phone: Radiology Comment on above: Dyspnea [...] 10-30-2024 ambulatory Treatment Rm 6 José Miguel [facility] Work Phone: Hematology/Oncology Comment on above: 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) (Primary Dx) Start: 10-27-2024 End: 10-27-2024 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: Hematology/Oncology Comment on above: Encounter for janice camara (Primary Dx); 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) Start: 10-23-2024 End: 10-23-2024 Chart abstracting Liza Canas RN Hematology/Oncology Comment on above: Research (CTD - Prog ression [id number]) Start: 10-23-2024 End: 10-23-2024 Telephone encounter Sandoval [...] Mckenzie Jones RN Hematology/Oncology Comment on above: Jacquard Loom Weaver - O ther (Treatment Planning ) Start: 10-16-2024 End: 10-16-2024 Telephone encounter Christina Amaro RN Work Phone: Hematology/Oncology Comment on above: Future Appointment Start: 10-05-2024 End: 10-05-2024 ambulatory FIONA DURANT Facility:[facility] Start: 10-05-2024 End: 10-05-2024 Office outpatient new 30 minutes Dayton Arevalo PA-C Work Phone: [facility] Comment on above: Acute recurrent sinu sitis, unspecified location (Primary Dx); COPD with exacerbation (HCC) Start: 10-02-2024 End: 10-02-2024 ambulatory FIONA DURANT Facility:[facility] Start: 09-30-2024 End: 09-30-2024 Telephone encounter Mckenzie Jones RN Hematology/Oncology Comment on above: Jacquard Loom Weaver - O ther (Change in treatment ) [...] Hematology/Oncology Start: 09-15-2024 ambulatory SANDOVAL BURGESS Facilit y:[facility] Start: 09-15-2024 End: 09-15-2024 Subsequent hospital visit by physician Injection Pet Ct [facility] PET CT Comment on above: Malignant neoplasm o f unspecified part of unspecified bronchus or lung (HCC) [C34.90] Start: 09-11-2024 End: 09-11-2024 [facility] Start: 09-11-2024 End: 09-11-2024 Patient encounter procedure Georgina Morgan MD Work Phone: Pulmonary Medicine Comment on above: Asthma-COPD overlap syndrome (HCC) (Primary Dx); Cigarette smoker; Lung cancer metastatic to bone (HCC) Start: 09-08-2024 End: 09-08-2024 ambulatory FIONA DURANT Facility:[facility] Start: 09-08-2024 End: 09-08-2024 Office outpatient visit 25 minutes Fiona Durant MD Work Phone: Internal Medicine [place] Comment on above: Elevated glucose (Pr imary [...] encounter procedure Fiona Durant MD Work Phone: [facility] Start: 08-21-2024 End: 08-21-2024 ambulatory Treatment Rm 4 José Miguel [facility] Work Phone: Hematology/Oncology Comment on [...] 07-10-2024 End: 07-10-2024 ambulatory Treatment Rm 5 [facility] Work Phone: Hematology/Oncology Comment on above: 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) (Primary Dx) Start: 07-08-2024 End: 07-09-2024 Refill Fiona Durant MD Work Phone: Internal Medicine [place] Comment on above: Refill Request 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) (Primary Dx) Start: 06-25-2024 ambulatory [place] Jeannie Facility:[facility] Start: 06-12-2024 End: 06-26-2024 Chart abstracting Liza Canas RN Hematology/Oncology Comment on above: Research (RECIST) Start: 06-06-2024 End: 06-06-2024 Office outpatient visit 25 minutes Fiona Durant MD Work Phone: Internal Medicine [place] Comment on above: Acute bronchitis wit h chronic obstructive pulmonary disease (COPD) (HCC) (HCC) (Primary Dx); 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); Elevated glucose; Class 2 obesity due to excess calories with body mass index (BMI) of 38.0 to 38.9 in adult, unspecified whether serious comorbidity present; Cigarette smoker Start: 06-06-2024 End: 06-06-2024 ambulatory FIONA D [facility] Facility:[facility] Start: 05-29-2024 End: 05-29-2024 ambulatory Treatment Rm 4 José Miguel [facility] Work Phone: Hematology/Oncology Comment on [...] Wheelchair) Start: 05-08-2024 End: 05-08-2024 ambulatory Fiona D Doug Facility:[facility] Start: 05-05-2024 ambulatory SANDOVAL Hyde y:[facility] Start: 05-05-2024 End: 05-05-2024 Subsequent hospital visit by physician Injection Pet [facility] [place] [facility] PET CT Comment on above: 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) [C34.90, C79.51] Start: 04-17-2024 End: 04-17-2024 ambulatory Treatment Rm 13 José Miguel [facility] Work Phone: Hematology/Oncology Comment on [...] above: Refill Request Start: 03-10-2024 Refill Sandoval smith MD Work Phone: Hematology/Oncology Comment on above: Refill Request Start: 03-06-2024 Chart abstracting Liza Canas RN Hematology/Oncology Comment on above: Research (RECIST 1.1 ) Start: 03-06-2024 End: 03-06-2024 ambulatory Treatment Rm 13 José Miguel [facility] Work Phone: Hematology/Oncology Comment on above: Non-small [...] Fiona Durant MD Work Phone: Internal Medicine [place] Comment on above: Stage 3 severe COPD by GOLD classification ([facility]); Right hip pain; Coronary artery disease involving koi coronary artery of koi heart without angina pectoris; Irritable bowel syndrome with both constipation and diarrhea; Fibromyalgia; Cigarette smoker; Cough; COPD with exacerbation (HCC) Start: 02-18-2024 End: 02-18-2024 Subsequent hospital visit by physician Injection [facility] [place] [facility] CT Comment on above: Malignant neoplasm o f unspecified part of unspecified bronchus or lung (HCC) [C34.90] Start: 01-30-2024 Chart abstracting Liza Canas RN Hematology/Oncology Comment on above: Research (RECIST Abs tract) Start: 01-24-2024 End: 01-24-2024 ambulatory Treatment Rm 13 [facility] Work Phone: Hematology/Oncology Comment on above: 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) (Primary Dx) Start: 01-23-2024 Telephone encounter Liza Canas RN Hematology/Oncology Start: 01-23-2024 End: 01-23-2024 ambulatory Sandoval Burgess MD Work Phone: Hematology/Oncology Comment on above: 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) (Primary Dx) Start: 01-23-2024 End: 01-23-2024 Patient encounter procedure Sandoval Burgess MD Work Phone: [facility] Start: 12-26-2023 ambulatory Fiona kelley MD Work Phone: Internal Medicine [facility] Start: 12-20-2023 Chart abstracting Liza Canas RN Hematology/Oncology Comment on above: Research (RECIST 1.1 [id number]) Start: 12-20-2023 Telephone encounter Fiona diaz MD Work Phone: [facility] Comment on above: Medication Question Start: 12-13-2023 End: 12-13-2023 ambulatory Treatment 13 [facility] Work Phone: Hematology/Oncology Comment on above: Malignant neoplasm m etastatic to bone (HCC) (Primary Dx); 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) Start: 12-12-2023 End: 12-12-2023 ambulatory Sandoval Burgess MD Work Phone: Hematology/Oncology Comment on above: 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) (Primary Dx) Start: 12-12-2023 End: 12-12-2023 Patient encounter procedure Sandoval Burgess MD Work Phone: [facility] Start: 12-11-2023 Chart abstracting Liza [...] encounter procedure Fiona Durant MD Work Phone: [facility] Work Phone: Start: 11-16-2023 End: 11-16-2023 ambulatory Sandoval Burgess MD Work Phone: Hematology/Oncology Comment on above: 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) (Primary Dx) Start: 11-16-2023 End: 11-16-2023 Patient encounter procedure Sandoval Burgess MD Work Phone: [facility] Start: 11-12-2023 End: 11-12-2023 Subsequent hospital visit by physician Pet [facility] [place] [facility] CT Comment on above: 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) [C34.90, C79.51] Start: 09-18-2023 Telephone encounter Sandoval cruz MD Work Phone: Hematology/Oncology Comment on above: Appointment; Patient Update Start: 09-03-2023 Refill Fiona kelley MD Work Phone: Internal [facility] [place] Comment on above: Refill Request Patient Request Start: 08-16-2023 Telephone encounter Liza Canas RN Hematology/Oncology Start: 08-13-2023 Telephone encounter Sandoval cruz MD Work Phone: Hematology/Oncology Comment on above: Results Start: 08-10-2023 Chart abstracting Liza Canas RN Hematology/Oncology Comment on above: Research (RECIST 1.1 Abstract ) Start: 08-10-2023 End: 08-10-[address] (I-Stat) Work Phone: [facility] Start: 08-10-2023 End: 08-10-2023 Subsequent hospital visit by physician Ct [facility] (I-Stat) Work Phone: Cat Scan Comment on above: 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) [C34.90, C79.51] Start: 08-08-2023 End: 08-08-2023 ambulatory Treatment Rm 13 José Miguel [facility] Work Phone: Hematology/Oncology Comment on above: 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) (Primary Dx); Cancer of trachea, bronchus, and lung (HCC); Malignant neoplasm metastatic to bone (HCC) Start: 08-01-2023 End: 08-01-2023 Patient encounter procedure Isabel Campuzano PA-C Work Phone: [facility] Comment on above: Sore throat (Primary Dx); Rash; Chronic obstructive pulmonary disease with acute exacerbation (HCC) Start: 07-23-2023 Telephone encounter Ann Slade PA-C Work Phone: Pulmonary Medicine Comment on above: Medication Problem Start: 06-26-2023 Nursing evaluation o f patient and report Liza Canas RN Hematology/Oncology Comment on above: Examination of parti cipant in clinical trial (Primary Dx) Start: 06-26-2023 End: 06-26-2023 Patient encounter procedure Liza Canas RN [facility] Start: 06-26-2023 End: 06-26-2023 ambulatory Sandoval Burgess [...] 05-25-2023 End: 05-25-2023 Patient encounter procedure Perla Gautam ENERGY EFFICIENT SITE MANAGER Work Phone: [facility] Comment on above: Thrush (Primary Dx) Start: 05-22-2023 End: 05-22-2023 Office outpatient visit 25 minutes Fiona Durant MD Work Phone: Internal Medicine [place] Comment on above: Fibromyalgia (Primar y Dx); Cigarette smoker; Class 2 obesity due to excess calories with body mass index (BMI) of 39.0 to 39.9 in adult, unspecified whether serious comorbidity present; COPD with asthma (HCC); Pain of right hip; Mixed stress and urge urinary incontinence; Coronary artery disease involving koi coronary artery of koi heart without angina pectoris Start: 05-16-2023 End: 05-16-2023 ambulatory Treatment Rm 13 José Miguel [facility] Work Phone: Hematology/Oncology Comment on [...] encounter procedure Sandoval Burgess MD Work Phone: [facility] Start: 05-14-2023 Chart abstracting Liza Caans RN Hematology/Oncology Comment on above: Research (RECIST 1.1 /[id number]) Start: 05-14-2023 Telephone encounter Liza Canas RN Hematology/Oncology Comment on above: Research Start: 05-11-2023 End: 05-11-2023 Subsequent hospital visit by physician Ct Prep [facility] Cat Scan Start: 04-16-2023 End: 04-16-2023 Patient encounter procedure Perla Gautam ENERGY EFFICIENT SITE MANAGER Work Phone: [facility] Comment on above: Eye irritation (Prim cruz Dx) Start: 04-05-2023 Telephone encounter Liza Canas RN Hematology/Oncology Comment on above: Appointment Start: 04-04-2023 End: 04-04-2023 ambulatory [facility] Work Phone: [facility] Comment on above: Non-small [...] 04-03-2023 End: 04-03-2023 Patient encounter procedure Telly Duncan DO Work Phone: [facility] Start: 03-27-2023 Orders Only Telly Gill O [...] Start: 03-19-2023 End: 03-19-2023 ambulatory [facility] Comment on above: Spirometry Start: 03-19-2023 End: 03-19-2023 Patient encounter procedure Pulm Lab [facility] Work Phone: [facility] Start: 03-16-2023 End: 03-16-2023 Subsequent hospital visit by physician [facility] 1 Work Phone: Radiology Comment on above: Thyroid nodule [E04. 1] Start: 03-12-2023 Telephone encounter Christophe stanley MD Work Phone: Orthopaedics Comment on above: Patient cancelled po st op visit Start: 02-21-2023 End: 02-21-2023 ambulatory Treatment Rm 13 José Miguel [facility] Work Phone: Hematology/Oncology Comment on above: Malignant [...] encounter procedure Telly Duncan DO Work Phone: [facility] Start: 02-19-2023 Orders Only Telly Gill O Work Phone: Hematology/Oncology Comment on above: 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) (Primary Dx); Cancer of lower lobe of right lung (HCC); Cancer of trachea, bronchus, and lung (HCC) Start: 02-12-2023 Chart abstracting Liza Canas RN Hematology/Oncology Comment on above: Research (RECIST;[id number]) Start: 02-09-2023 End: 02-09-[address] (I-Stat) Work Phone: [facility] Start: 02-09-2023 End: 02-09-2023 Subsequent hospital visit by physician [facility] (I-Stat) Work Phone: Cat Scan Comment on above: Cancer of lower lobe of right lung (HCC) [C34.31] Start: 02-06-2023 Admission to [facility] Christophe Hassan MD Work Phone: Orthopaedics Comment on above: Surgery date Start: 02-06-2023 E-mail encounter fro m caregiver Christophe Hassan MD Work Phone: [facility] Start: 02-02-2023 Telephone encounter Christophe stanley MD Work Phone: Orthopaedics Comment on above: Schedule Surgery Start: 02-01-2023 End: 02-01-2023 Office outpatient visit 15 minutes Bebe Flores APRN.CAMP RECREATION SPECIALIST Work Phone: Internal Medicine [place] Comment on above: COPD with exacerbati on (HCC) (Primary Dx); Pulmonary emphysema, unspecified emphysema type (HCC); Simple chronic bronchitis (HCC); Cigarette smoker Start: 01-25-2023 Telephone encounter Fiona diaz MD Work Phone: Internal Medicine [place] Comment on above: Orders Start: 01-25-2023 End: 01-25-2023 Patient encounter procedure Kathy Almaraz APRN.ENERGY EFFICIENT SITE MANAGER Work Phone: Internal Medicine [place] Comment on above: COPD with exacerbati on (HCC) (Primary Dx); Acute cough; Wheezing; Shortness of breath Start: 01-23-2023 Refill Fiona kelley MD Work Phone: Internal Medicine [place] Comment on above: Refill Request Start: 01-17-2023 ambulatory Fiona kelley MD Work Phone: [facility] [place] Start: 01-09-2023 Nursing evaluation o f patient and report Liaz Canas RN Hematology/Oncology Comment on above: Examination of parti cipant in clinical trial (Primary Dx) Start: 01-09-2023 End: 01-09-2023 Patient encounter procedure Carrie Preciado APRN.ENERGY EFFICIENT SITE MANAGER Work Phone: [facility] Start: 01-09-2023 Telephone encounter Liza Canas RN Hematology/Oncology Comment on above: Research Start: 01-09-2023 End: 01-09-2023 ambulatory Carrie Preciado ENERGY EFFICIENT SITE MANAGER Work Phone: Hematology/Oncology Comment on above: Cancer of lower lobe of right lung (HCC) (Primary Dx); Left leg swelling Start: 11-29-2022 Telephone encounter Fiona diaz MD Work Phone: Internal Medicine [place] Comment on above: Refill Request Start: 11-28-2022 Telephone encounter Fiona diaz MD Work Phone: Internal Medicine [place] Comment on above: Orders Start: 11-13-2022 End: 11-13-[address] (I-Stat) Work Phone: [facility] Start: 11-13-2022 End: 11-13-2022 Subsequent hospital visit by physician Ct [facility] (I-Stat) Work Phone: [facility] [place] Comment on above: Cancer of trachea, b ronchus, 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, C34.80] Start: 10-24-2022 End: 10-24-2022 Office outpatient visit 25 minutes Fiona Durant MD Work Phone: Internal Medicine [place] Comment on above: Trigger ring finger of left hand (Primary Dx); Right hip pain; Cigarette smoker; History of OR (myocardial infarction); COPD with asthma (HCC); 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) Start: 10-18-2022 End: 10-18-2022 ambulatory Treatment Rm 3 José Miguel [facility] Work Phone: Hematology/Oncology Comment on [...] encounter procedure Anca Huddleston MD Work Phone: [facility] Start: 09-27-2022 End: 09-27-2022 ambulatory Treatment Rm 10 José Miguel [facility] Work Phone: Hematology/Oncology Comment on [...] 09-06-2022 End: 09-06-2022 ambulatory Treatment Rm 4 [facility] Work Phone: Hematology/Oncology Comment on above: [...] End: 08-10-2022 Subsequent hospital visit by physician Nancy [facility] (I-Stat) Work Phone: Cat Scan Comment on above: Malignant neoplasm o f unspecified part of unspecified bronchus or lung (HCC) [C34.90] Start: 07-26-2022 Telephone encounter Anca Huddleston MD Work Phone: Hematology/Oncology Comment on above: Orders Start: 07-25-2022 Refill Fiona kelley MD Work Phone: Internal Medicine [place] Comment on above: Refill Request Start: 07-24-2022 [...] Fiona Durant MD Work Phone: Internal Medicine [place] Comment on above: Cough (Primary Dx); ST elevation myocardial infarction involving right coronary artery (HCC); Physical debility; 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); COPD with asthma (HCC); Encounter for immunization Start: 07-04-2022 End: 07-04-2022 ambulatory Treatment Rm 7 José Miguel [facility] Work Phone: Hematology/Oncology Comment on [...] 06-13-2022 ambulatory Treatment Rm 10 José Miguel [facility] Work Phone: Hematology/Oncology Comment on above: Cancer [...] 05-24-2022 Subsequent hospital visit by physician Ct [facility] (I-Stat) Work Phone: Cat Scan Comment on [...] 05-23-2022 ambulatory Treatment Rm 9 José Miguel [facility] Work Phone: Hematology/Oncology Comment on above: Cancer [...] 05-05-2022 Subsequent hospital visit by physician Ct [facility] (I-Stat) Work Phone: Cat Scan Comment on above: Malignant neoplasm o f unspecified part of unspecified bronchus or lung (HCC) [C34.90] Start: 04-18-2022 Patient encounter procedure Liza Canas RN [facility] Work Phone: Start: 04-18-2022 End: 04-18-2022 ambulatory Treatment Rm 8 [facility] Work Phone: Hematology/Oncology Comment on above: 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) (Primary Dx); Cancer of trachea, bronchus, and lung (HCC); Bone metastases (HCC) Start: 04-17-2022 End: 04-17-2022 Office outpatient visit 25 minutes Fiona Durant MD Work Phone: Internal Medicine [place] Comment on above: Fibromyalgia (Primar y Dx); [...] 03-29-2022 ambulatory Treatment Rm 7 José Miguel [facility] Work Phone: Hematology/Oncology Comment on above: Cancer of trachea, b ronchus, and lung (HCC) (Primary Dx); Bone metastases (HCC) Start: 03-28-2022 Nursing evaluation o f patient and report Liza Canas RN Hematology/Oncology Comment on above: Examination of parti cipant in clinical trial (Primary Dx) Start: 03-28-2022 End: 03-28-2022 Patient encounter procedure Liza Canas RN Hematology/Oncology [...] 02-15-2022 ambulatory Treatment Rm 13 José Miguel [facility] Work Phone: Hematology/Oncology Comment on above: Cancer [...] on above: Appointment Start: 02-10-2022 Chart abstracting Vaz (Rsr ch) Hector Work Phone: Hematology/Oncology Comment on above: Research (RECIST 1.1 Addendum Request) Start: 02-10-2022 End: 02-10-2022 Subsequent hospital visit by physician Nancy [facility] (I-Stat) Work Phone: Cat Scan Comment on above: Bone metastases (HCC ) [C79.51] Start: 01-25-2022 End: 01-25-2022 ambulatory Treatment 7 [facility] Work Phone: Hematology/Oncology Comment on above: Cancer [...] (HCC) Start: 01-04-2022 End: 01-04-2022 ambulatory Treatment 7 [facility] Work Phone: Hematology/Oncology Comment on above: Cancer [...] Fiona Durant MD Work Phone: Internal Medicine [place] Comment on above: Cough (Primary Dx); COPD with asthma (HCC); Cigarette smoker; 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); Hypokalemia Start: 12-13-2021 Patient encounter procedure Liza Canas RN [facility] Work Phone: Start: 11-18-2021 End: 11-18-2021 Subsequent hospital visit by physician Ct Prep [facility] Cat [facility] Comment on above: Canceled (Pt cx: Tala nge in Condition, Sick) Procedures Date Procedure Procedure Detail Performing Clinician Start: 04-27-2025 Plain chest X-ray Dr. Mykel Durant MD Work Phone: Start: 04-27-2025 Urnls dip stick/tabl et reagent auto microscopy Dr. Fiona Durant MD Work Phone: Start: 04-27-2025 CT angiography of ch est with contrast Dr. Fiona Durant MD Work Phone: Start: 04-27-2025 Carbon dioxide measurement, partial pressure Dr. Fiona Durant MD Work Phone: Start: 04-27-2025 Gases blood o2 saturation only direct sandra Dr. Fiona Durant MD Work Phone: Start: 04-27-2025 Measurement of parti al pressure of oxygen in blood Dr. Fiona Durant MD Work Phone: Start: 04-27-[address] Fiona Durant MD Work Phone: Start: 04-27-[address] Fiona Durant MD Work Phone: Start: 04-27-[address] Rupinder Durant MD Work Phone: Start: 04-27-2025 SARS-CoV-2, Influenz a & RSV (PCR) Dr. Fiona Durant MD Work Phone: Start: 04-03-2025 Gen seq analys nilda org/hemtolmphoid [...] Start: 08-01-2023 STREP A MOLECULAR (POC) Isabel R Athy PA-C Work Phone: Start: 03-19-2023 Brncdilat rspse spmt ry pre&post-brncdilat admn Georgina Morgan MD Work Phone: Start: 03-16-2023 Us soft tissue head & neck real time imge docm Telly Green Masci DO Work Phone: Start: 02-09-2023 Ct abdomen & pelvis w/contrast material Carrie Preciado SOLUTIONS DEVELOPMENT ANALYST.ENERGY EFFICIENT SITE MANAGER Work Phone: Start: 02-09-2023 Ct thorax w/contrast material Carrie Preciado SOLUTIONS DEVELOPMENT ANALYST.ENERGY EFFICIENT SITE MANAGER Work Phone: Start: 11-13-2022 Ct abdomen & pelvis w/contrast material Anca Huddleston MD Work Phone: Start: 11-13-2022 Ct thorax w/contrast material Telly Duncan DO Work Phone: Start: 08-10-2022 Ct abdomen [...] Start: 02-10-2022 Ct abdomen w/contras t material nAca Huddleston MD Work Phone: Start: 02-10-2022 Ct thorax w/contrast material Anca Huddleston MD Work Phone: Start: 12-15-2021 Lipid 1996 panel - S jay or Plasma Ann Slade PA-C Work Phone: Start: 06-27-2021 Adult depression screening assessment Liza Canas RN Start: 06-28-2020 History of placement of stent for coronary artery disease S/P coronary artery stent placement Liza Canas RN Start: 10-09-2019 History of placement of stent for coronary artery disease History of coronary artery stent placement Therese JERNIGAN Comment on above: PCI-YUDELKA mid RCA with a 3.5 x 28 Promus Synergy, followed immediately upstream with a 3.5 x 24 Promus Synergy, YUDELKA- RPLVB w/ 2.25 x 16 mm Promus Synergy stent 10/09/2019 Start: 08-11-2016 Mammography Liza dominguez RN Start: 11-21-2012 Colonoscopy Liza dominguez RN Plan of Treatment Date Care Activity Detail Author Start: 02-04-2030 Lipid panel Lipid Screening [facility] Start: 04-08-2028 Diabetes Screening Diabetes Screenin [facility] Start: 03-18-2028 Diabetes Screening Diabetes Screenin g [facility] Start: 02-25-2028 Diabetes Screening Diabetes Screenin g [facility] Start: 02-05-2028 Diabetes Screening Diabetes Screenin g [facility] Start: 01-14-2028 Diabetes Screening Diabetes Screenin g [facility] Start: 12-25-2027 Diabetes Screening Diabetes Screenin g [facility] Start: 12-04-2027 Diabetes Screening Diabetes Screenin g [facility] Start: 11-19-2027 Diabetes Screening Diabetes Screenin g [facility] Start: 10-30-2027 Diabetes Screening Diabetes Screenin g [facility] Start: 10-23-2027 Diabetes Screening Diabetes Screenin g [facility] Start: 09-30-2027 Diabetes Screening Diabetes Screenin g [facility] Start: 08-19-2027 Diabetes Screening Diabetes Screenin g [facility] Start: 07-08-2027 Diabetes Screening Diabetes Screenin g [facility] Start: 05-29-2027 Diabetes Screening Diabetes Screenin g [facility] Start: 05-27-2027 Diabetes Screening Diabetes Screenin g [facility] Start: 04-17-2027 Diabetes Screening Diabetes Screenin g [facility] Start: 04-15-2027 Diabetes Screening Diabetes Screenin g [facility] Start: 03-05-2027 Diabetes Screening Diabetes Screenin g [facility] Start: 01-22-2027 Diabetes Screening Diabetes Screenin g [facility] Start: 12-15-2026 Lipid 1996 panel - Serum or Plasma Lipid Screening [facility] Start: 12-15-2026 Lipid panel Lipid Screening [facility] Start: 12-15-2026 LIPID SCREEN LIPID SCREEN [facility] Start: 12-11-2026 Diabetes Screening Diabetes Screenin g [facility] Start: 10-31-2026 Diabetes Screening Diabetes Screenin g [facility] Start: 08-07-2026 Diabetes Screening Diabetes Screenin g [facility] Start: 06-26-2026 Diabetes Screening Diabetes Screenin g [facility] Start: 04-03-2026 DIABETES SCREEN DIABETES SCREEN [facility] Start: 04-03-2026 Diabetes Screening Diabetes Screenin g [facility] Start: 03-22-2026 End: 03-22-2026 Patient encounter procedure 03/22/2026 3:40 PM EDT Office Visit [facility] [place] [address] [place] [address] Fiona Durant MD [address] [place] [address] 3 month follow up [facility] [place] Comment on above: 3 month follow up Start: 03-02-2026 End: 03-02-2026 Patient encounter procedure 03/02/2026 12:45 PM EDT Office Visit [facility] Ophthalmology [address] [place] [address] Salvador David, OD [address] [place] [address] 1 month f/u to address chemo/ and Ambrovich Ophthalmology Comment on above: 1 month f/u to addre ss chemo/ and Ambrovich Start: 02-25-2026 Annual PCP Team Yeast Tender liborio Disease Visit Annual PCP Team Chronic Disease Visit [facility] Start: 02-20-2026 DIABETES SCREEN DIABETES SCREEN [facility] Start: 02-04-2026 Hepatitis B surface antibody level LDL Cholesterol [facility] Start: 01-09-2026 DIABETES SCREEN DIABETES SCREEN [facility] Start: 12-21-2025 End: 12-21-2025 Patient encounter procedure 12/21/2025 4:20 PM EDT Office Visit Internal Medicine [place] [address] [place] [address] Fiona Durant MD [address] [facility] [place] [address] 3 month follow up [facility] [place] Comment on above: 3 month follow up Start: 12-01-2025 Annual PCP Team Yeast Tender liborio Disease Visit Annual PCP Team Chronic Disease Visit [facility] Start: 11-24-2025 DIABETES SCREEN DIABETES SCREEN [facility] Start: 10-17-2025 DIABETES SCREEN DIABETES SCREEN [facility] Start: 09-26-2025 DIABETES SCREEN DIABETES SCREEN [facility] Start: 09-09-2025 End: 09-09-2025 Patient encounter procedure 09/09/2025 4:00 PM EST Office Visit Internal Medicine [place] [address] [place] [address] Fiona Durant MD [address] [place] [address] 3 month follow up [facility] [place] Comment on above: 3 month follow up Start: 09-08-2025 Annual PCP Team Yeast Tender liborio Disease Visit Annual PCP Team Chronic Disease Visit [facility] Start: 09-08-2025 Anxiety Screening Anxiety Screening [facility] Start: 09-08-2025 Depression Screening Depression Scre [facility] Start: 09-04-2025 DIABETES SCREEN DIABETES SCREEN [facility] Start: 08-14-2025 DIABETES SCREEN DIABETES SCREEN [facility] Start: 07-24-2025 DIABETES SCREEN DIABETES SCREEN [facility] Start: 07-03-2025 DIABETES SCREEN DIABETES SCREEN [facility] Start: 06-23-2025 End: 06-23-2025 Patient encounter procedure 06/23/2025 1:30 PM EDT Office Visit Pulmonary Medicine [address] [place] [address] Chyna Ellison APRN.ENERGY EFFICIENT SITE MANAGER [address] [place] [address] 3 MTH F/U Pulmonary Medicine Comment on above: 3 MTH F/U Start: 06-17-2025 End: 06-17-2025 ambulatory [facility] Comment on above: CBC D15 CARBO/ABRAXANE/L AB EARLY* D15 ABRAXANE/LAB EAR LY* Start: 06-16-2025 End: 06-16-2025 Patient encounter procedure 06/16/2025 1:00 PM EDT Office Visit Internal Medicine [place] [address] [place] [address] Fiona Durant MD [address] [place] [address] 3 month follow up [facility] [place] Comment on above: 3 month follow up Start: 06-10-2025 End: 06-10-2025 ambulatory [facility] Comment on above: CBC D8 CARBO/ABRAXANE/LA B EARLY* D8 ABRAXANE/LAB BILL Y* Start: 06-09-2025 DIABETES SCREEN DIABETES SCREEN [facility] Start: 06-08-2025 Influenza vaccination Influenza Vacc ine (#1) [facility] Start: 06-06-2025 Annual PCP Team Yeast Tender liborio Disease Visit Annual PCP Team Chronic Disease Visit [facility] Start: 06-05-2025 End: 06-05-2025 Patient encounter procedure 06/05/2025 3:20 PM EDT Office Visit Internal Medicine [place] [address] [place] [address] Fiona Durant MD [address] [place] [address] 3 month follow up [facility] [place] Comment on above: 3 month follow up Start: 06-03-2025 End: 06-03-2025 ambulatory Hematology/Oncology Comment on above: Q3WK CARBO/ABRAXANE/ LAB&OV 06/02* Q3WK ABRAXANE/LAB&OV 06/02* Start: 06-02-2025 End: 06-02-2025 ambulatory [facility] Comment on above: (SO)CBC/CMP(S)* OV/EARLY LABS/CHEMO 06/03* Start: 05-27-2025 End: 05-27-2025 ambulatory Hematology/Oncology Comment on above: Q3WK D15 CARBO/ABRAX ANEPROVE* (SO)CBC/CMP(S)* D15 CARBO/ABRAXANE/L AB EARLY* D15 ABRAXANE/LAB EAR LY* Start: 05-23-2025 DIABETES SCREEN DIABETES SCREEN [facility] Start: 05-21-2025 End: 05-21-2025 ambulatory 05/21/2025 1:30 PM EDT [facility] Hematology/Oncology [address] [place] [address] Q3WK ALIMTA/LAB&OV 05/20* 1:30 APPTS WITH LABS DAY PRIOR / SAME DAY LABS 1230, TREATMENT 1:00 Hematology/Oncology Comment on above: Q3WK ALIMTA/LAB&OV * 1:30 APPTS WITH LABS DAY PRIOR / SAME DAY LABS 1230, TREATMENT 1:00 Start: 05-20-2025 End: 05-20-2025 ambulatory Hematology/Oncology Comment on above: Q3WK D8 CARBO/ABRAXA NEPROVE* D8 CARBO/ABRAXANE/LA B EARLY* D8 ABRAXANE/LAB BILL Y* Start: 05-20-2025 End: 05-20-2025 ambulatory [place] [facility] Comment on above: (SO)CBC/CMP(S)* OV/EARLY LABS/CHEMO 05/21* A[facility]AM[facility]/ 1:00 APPTS OR LATER Start: 05-13-2025 End: 05-13-2025 ambulatory Hematology/Oncology Comment on above: Q3WK D1 CARBO/ABRAXA NE/LAB&OV 05/12* Q3WK D1 ABRAXANE/LAB &OV 05/12* Start: 05-12-2025 End: 05-12-2025 ambulatory Hematology/Oncology Comment on above: Q3WK D1 CARBO/ABRAXA NEPROVE* (SO)CBC/CMP(S)* OV/EARLY LABS/CHEMO 05/13* Start: 05-08-2025 DIABETES SCREEN DIABETES SCREEN [facility] Start: 05-06-2025 End: 05-06-2025 ambulatory 05/06/2025 1:20 PM EDT Visit (SP) Office Hematology/Oncology [address] [place] [address] Telly Duncan DO [address] [place] [address] (SO)CBC/CMP(S)OV/CHEMO TODAY/TRANSFER CARE* Hematology/Oncology Comment on above: (SO)CBC/CMP(S)OV/ORA MO TODAY/TRANSFER CARE* Start: 05-06-2025 End: 05-06-2025 ambulatory [facility] Comment on above: (SO)CBC/CMP(S)* Q3WK D15 CARBO/ABRAX ANEPROVE* D15 CARBO/ABRAXANEPR OVE/LAB EARLY* D15 CARBO/ABRAXANE/O V&LAB EARLY* D15 ABRAXANE/OV&LAB EARLY* Start: 04-30-2025 End: 04-30-2025 ambulatory 04/30/2025 1:30 PM EDT [facility] Hematology/Oncology [address] [place] [address] Q3WK ALIMTA/LAB&OV 04/29* 1:30 APPTS WITH LABS DAY PRIOR / SAME DAY LABS 1230, TREATMENT 1:00 Hematology/Oncology Comment on above: Q3WK ALIMTA/LAB&OV * 1:30 APPTS WITH LABS DAY PRIOR / SAME DAY LABS 1230, TREATMENT 1:00 Start: 04-29-2025 End: 04-29-2025 ambulatory [facility] Comment on above: (SO)CBC/CMP(S)* OV/EARLY LABS/CHEMO 04/30* ABRAMOVICH/ 1:00 APPTS OR LATER Q3WK D8 CARBO/ABRAXA NEPROVE* D8 CARBO/ABRAXANEPRO VE/LAB EARLY* D8 CARBO/ABRAXANE/LA B EARLY* D8 ABRAXANE/LAB BILL Y* Start: 04-27-[address] [facility] Start: 04-27-2025 Admission procedure [facility] Start: 04-27-2025 Hospital admission, emergency, from emergency room, medical nature [facility] Start: 04-27-2025 End: 04-27-2025 [facility] Start: 04-27-2025 Continuous pulse oximetry [facility] Start: 04-27-2025 End: 04-27-2025 [facility] Start: 04-27-2025 Bacteria identified in Blood by Culture Blood Culture [facility] Start: 04-27-2025 Bacteria identified in Urine by Culture Urine Culture [facility] Start: 04-27-2025 Dual pressure spontaneous ventilation support [facility] Start: 04-24-2025 End: 04-24-2025 Patient encounter procedure 04/24/2025 2:15 PM EDT Office Visit Pulmonary Medicine [address] [place] [address] Georgina Morgan MD [address] [facility] [place] [place] [address] Productive cough Pulmonary Medicine Comment on above: Productive cough Start: 04-22-2025 End: 04-22-2025 ambulatory [facility] Comment on above: (SO)CBC/CMP(S)* START Q3WK D1 CARBO/ ABRAXANEPROVE* STRAIGHTBACK STRAIGHTBACK START Q 3WK CARBO/ABRAXANEPROVE/LAB EARLY* START Q3WK CARBO/ABR AXANE/LAB EARLY* START Q3WK ABRAXANE/ LAB EARLY* Start: 04-17-2025 DIABETES SCREEN DIABETES SCREEN [facility] Start: 04-15-2025 End: 04-15-2025 ambulatory Hematology/Oncology Comment on above: CHEMO ED-Carbo/Abrax aneprove CHEMO ED-Carbo/Abrax ane* Start: 04-09-2025 End: 04-09-2025 ambulatory Hematology/Oncology Comment on above: Q3WK CARBO/ALIMTA/LA B&OV 7/2* 1:30 APPTS WITH LABS DAY PRIOR / SAME DAY LABS 1230, TREATMENT 1:00 Q3WK ALIMTA/LAB&OV 7 /2* 1:30 APPTS WITH LABS DAY PRIOR / SAME DAY LABS 1230, TREATMENT 1:00 Start: 04-08-2025 End: 04-08-2025 ambulatory [facility] Comment on above: (SO)CBC/CMP(S)* OV/EARLY LABS/CHEMO 7/3* 1:00 APPTS OR LATER [facility] Start: 03-31-2025 End: 03-31-2025 Admission to same day surgery center 03/31/2025 12:00 PM EDT - 03/31/2025 1:00 PM EDT Surgery Admitting [address] [address] Faisal Mcintosh MD [address] [place] [address] BRONCHOSCOPY FLEXIBLE ADULT Admitting Comment on above: BRONCHOSCOPY FLEXIBL E ADULT Start: 03-31-2025 End: 03-31-2025 [facility] incl fluor gdnce dx w/cell washg spx BRONCHOSCOPY FLEXIBLE ADULT Bronchiolar disease 03/31/2025 12:00 PM EDT PULM [facility] Start: 03-31-2025 Subsequent hospital visit by physician 03/31/2025 12:00 PM EDT Hospital Encounter Admitting [address] [place] [id number] Faisal Mcintosh MD [address] [place] [address] Bronchiolar disease [J98.09] Admitting Comment on above: Bronchiolar disease [J98.09] Start: 03-30-2025 End: 03-30-2025 Patient encounter procedure 03/30/2025 12:45 PM EDT Office Visit [facility] Ophthalmology [address] [place], [place] [id number] Salvador David, OD [address] [place] [address] 1 month f/u to address chemo/ and Ambrovich Ophthalmology Comment on above: 1 month f/u to addre ss chemo/ and Ambrovich Start: 03-28-2025 DIABETES SCREEN DIABETES SCREEN [facility] Start: 03-20-2025 End: 03-20-2025 Patient encounter procedure 03/20/2025 10:00 AM EDT Office Visit Pulmonary Medicine [address] [place], [place] [id number] Georgina Morgan MD [address] [place] [address] 6 month f/u Pulmonary Medicine Comment on above: 6 month f/u Start: 03-19-2025 End: 03-19-2025 ambulatory Hematology/Oncology Comment on above: Q3WK CARBO/ALIMTA/LA B&OV 03/18/AUTH EXP?* 1:30 APPTS WITH LABS DAY PRIOR / SAME DAY LABS 1230, TREATMENT 1:00 Q3WK CARBO/ALIMTA/LA B&OV 03/18* 1:30 APPTS WITH LABS DAY PRIOR / SAME DAY LABS 1230, TREATMENT 1:00 Q3WK ALIMTA/LAB&OV * 1:30 APPTS WITH LABS DAY PRIOR / SAME DAY LABS 1230, TREATMENT 1:00 Start: 03-18-2025 End: 03-18-[address] [facility] Comment on above: (SO)CBC/CMP(S)* OV/EARLY LABS/CHEMO 03/19* 1:00 APPTS OR LATER [facility] Start: 03-09-2025 End: 03-09-2025 Patient encounter procedure 03/09/2025 2:40 PM EDT Office Visit [facility] [place] [address] [place] [address] Fiona Durant MD [address] [place], [place] [id number] 3 month follow up [facility] [place] Comment on above: 3 month follow up Start: 03-09-2025 End: 03-09-2025 Patient encounter procedure Mobile PET CT Comment on above: 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) [C34.90, C79.51] Start: 03-03-2025 DIABETES SCREEN DIABETES SCREEN [facility] Start: 02-27-2025 End: 02-27-2025 Patient encounter procedure 02/27/2025 2:15 PM EDT Office Visit [facility] Ophthalmology [address] [place], [place] [id number] Salvador David, OD [address] [place] [address] light flashing in eyes about 5 times a week Ophthalmology Comment on above: light flashing in ey es about 5 times a week Start: 02-26-2025 End: 02-26-2025 ambulatory 02/26/2025 1:30 PM EDT [facility] H[facility]ology/Oncology [address] [place] [address] Q3WK CARBO/ALIMTA/LAB&OV 02/24/AUTH EXP?* 1:30 APPTS WITH LABS DAY PRIOR / SAME DAY LABS 1230, TREATMENT 1:00 Hematology/Oncology Comment on above: Q3WK CARBO/ALIMTA/LA B&OV 02/24/AUTH EXP?* 1:30 APPTS WITH LABS DAY PRIOR / SAME DAY LABS 1230, TREATMENT 1:00 Start: 02-25-2025 End: 02-25-2025 Patient encounter procedure 02/25/2025 10:40 AM EDT Office Visit [facility] [place] [address] [place] [address] Fiona Durant MD [address] [facility] [place] [address] 3 month follow up [facility] [place] Comment on above: 3 month follow up Start: 02-24-2025 End: 02-24-2025 ambulatory [facility] Comment on above: (SO)CBC/CMP(S)* OV/EARLY LABS/CHEMO 02/26* 1:00 APPTS OR LATER aditya Start: 02-19-2025 Annual PCP Team Yeast Tender liborio Disease Visit Annual PCP Team Chronic Disease Visit [facility] Start: 02-13-2025 DIABETES SCREEN DIABETES SCREEN [facility] Start: 02-05-2025 End: 02-05-2025 ambulatory Hematology/Oncology Comment [...] TREATMENT 1:00 Start: 02-04-2025 End: 02-04-2025 ambulatory [facility] Comment on above: (SO)CBC/CMP(S)* OV/EARLY LABS/CHEMO 02/05* 1:00 APPTS OR LATER aditya Start: 01-24-2025 DIABETES SCREEN DIABETES SCREEN [facility] Start: 01-22-2025 End: 01-22-2025 ambulatory 01/22/2025 9:00 AM EDT [facility]fusion [facility] Hematology/Oncology [address] [place] [address] Q3WK CARBO/ALIMTA/LAB&OV 01/20/AUTH EXP?* Hematology/Oncology Comment on above: Q3WK CARBO/ALIMTA/LA B&OV AUTH EXP?* Start: 01-20-2025 End: 01-20-2025 ambulatory [facility] Comment on above: (SO)CBC/CMP(S)* OV/EARLY LABS/CHEMO 01/22* Start: 01-14-2025 End: 01-14-2025 ambulatory 01/14/2025 1:00 PM EDT [facility]fusion [facility] Hematology/Oncology [address] [place] [address] Q3WK CARBO/ALIMTA/LAB&OV 01/13/AUTH EXP?* 1:30 APPTS WITH LABS DAY PRIOR / SAME DAY LABS 1230, TREATMENT 1:00 Hematology/Oncology Comment on above: Q3WK CARBO/ALIMTA/LA B&OV 01/13/AUTH EXP?* 1:30 APPTS WITH LABS DAY PRIOR / SAME DAY LABS 1230, TREATMENT 1:00 Start: 01-13-2025 End: 01-13-2025 ambulatory [facility] Comment on above: (SO)CBC/CMP(S)* OV/EARLY LABS/CHEMO 01/14* 1:00 APPTS OR LATER aditya Start: 01-08-2025 End: 01-08-2025 ambulatory Hematology/Oncology Comment on above: Q3WK CARBO/ALIMTA/AU TH EXP?/LAB&OV 01/14* Q3WK CARBO/ALIMTA/AU TH EXP?/LAB&OV 01/07* Start: 01-07-2025 End: 01-07-2025 ambulatory [facility] Comment on above: (SO)CBC/CMP(S)* OV/EARLY LABS/CHEMO 01/15* OV/EARLY LABS/CHEMO 01/08* Start: 01-03-2025 DIABETES SCREEN DIABETES SCREEN [facility] Start: 01-01-2025 End: 01-01-2025 ambulatory 01/01/2025 9:00 AM EDT [facility]fusion [facility] Hematology/Oncology [address] [place] [address] Q3WK CARBO/ALIMTA/LAB&OV 12/31/AUTH EXP?* Hematology/Oncology Comment on above: Q3WK CARBO/ALIMTA/LA B&OV 12/31/AUTH EXP?* Start: 12-31-2024 End: 12-31-2024 ambulatory [facility] Comment on above: (SO)CBC/CMP(S)* OV/EARLY LABS/CHEMO 01/01* Start: 12-25-2024 End: 12-25-2024 ambulatory 12/25/2024 3:30 PM EDT [facility]fusion [facility] Hematology/Oncology [address] [place] [address] Q6WK KEYTRUDA/Q3MO ZOMETA/LAB&OV 12/25/AUTH EXP ?* Q3MO ZOMETA DUE 03/19 Hematology/Oncology Comment on above: Q6WK KEYTRUDA/Q3MO Z OMETA/LAB&OV 12/25/AUTH EXP ?* Q3MO ZOMETA DUE 03/19 Start: 12-25-2024 End: 12-25-2024 ambulatory Hematology/Oncology Comment on above: Q3WK CARBO/ALIMTA/LA B&OV 12/24/AUTH EXP?* 1:30 APPTS WITH LABS DAY PRIOR / SAME DAY LABS 1230, TREATMENT 1:00 Q3WK ALIMTA/LAB&OV /AUTH EXP?* 1:30 APPTS WITH LABS DAY PRIOR / SAME DAY LABS 1230, TREATMENT 1:00 Start: 12-24-2024 End: 12-24-2024 [facility] Comment on above: (SO)CBC/CMP(S)* OV/EARLY LABS/CHEMO 12/25* 1:00 APPTS OR LATER Start: 12-23-2024 End: 12-23-2024 ambulatory [facility] Comment on above: (SO)CBC/CMP/TSH/T4/C ORTISOL* OV/LAB EARLY/CHEMO * ADITYA Start: 12-18-2024 End: 12-18-2024 ambulatory Hematology/Oncology Comment on above: Q3WK CARBO/ALIMTA/AU TH EXP?/LAB&OV 01/14* Q3WK CARBO/ALIMTA/AU TH EXP?/LAB&OV 12/17* Start: 12-17-2024 End: 12-17-2024 ambulatory [facility] Comment on above: (SO)CBC/CMP(S)* OV/EARLY LABS/CHEMO 12/18* Start: 12-11-2024 End: 12-11-2024 ambulatory Hematology/Oncology Comment on above: Q3WK CARBO/ALIMTA/AU TH EXP?* Q3WK CARBO/ALIMTA/AU TH EXP?/LAB&OV 12/10* Start: 12-10-2024 End: 12-10-2024 ambulatory [facility] Comment on above: (SO)CBC(S)/(SO)CMP(S )* OV/EARLY LABS/CHEMO 11/20* OV/EARLY LABS/CHEMO 12/11* (SO)CBC/CMP(S)* Start: 12-04-2024 End: 12-04-2024 ambulatory [facility] Comment on above: (SO)CBC/CMP(S)* (SO)/CBC/CMP(S)/Q3WK CARBO/ALIMTA/AUTH EXP?* 1:00 APPTS OR LATER / SAME DAY LABS 1230, TREATMENT 1-DELAYED PER PT-SEE TE Start: 12-01-2024 End: 12-01-2024 Patient encounter procedure 12/01/2024 4:40 PM EST Office Visit Internal [facility] [place] [address] [place] [address] Fiona Durant MD [address] [place] [address] 3 mo follow up [facility] Comment on above: 3 mo follow up Start: 11-28-2024 Annual PCP Team Yeast Tender liborio Disease Visit Annual PCP Team Chronic Disease Visit [facility] Start: 11-27-2024 End: 11-27-2024 ambulatory [facility] Comment on above: (SO)CBC/CMP(S)* (SO)/cbc/cmp(s)/Q3WK CARBO/ALIMTA/AUTH EXP?* Start: 11-20-2024 End: 11-20-2024 ambulatory Hematology/Oncology Comment on above: Q3WK CARBO/ALIMTA/AU TH EXP?* Q3WK CARBO/ALIMTA/AU TH EXP?/LAB&OV 11/19* Start: 11-19-2024 End: 11-19-2024 ambulatory [facility] Comment on above: (SO)CBC(S)/(SO)CMP(S )* OV/EARLY LABS/CHEMO 11/20* (SO)CBC/CMP(S)* Start: 11-13-2024 End: 11-13-2024 ambulatory 11/13/2024 3:30 PM EST [facility] Hematology/Oncology [address] [place] [address] Q6WK KEYTRUDA/Q3MO ZOMETA/LAB&OV 11/11/AUTH EXP ?* Q3MO ZOMETA DUE 12/25 Hematology/Oncology Comment on above: Q6WK KEYTRUDA/Q3MO Z OMETA/LAB&OV 11/11/AUTH EXP ?* Q3MO ZOMETA DUE 12/25 Start: 11-11-2024 End: 11-11-2024 ambulatory [facility] Comment on above: (SO)CBC/CMP(S)/TSH/T 4/CORTISOL OV/LAB EARLY/CHEMO /* ADITYA (SO)CBC/CMP/TSH/T4/C ORTISOL* Start: 11-09-2024 Hepatitis B surface antibody level LDL Cholesterol [facility] Comment on above: Postponed from 12/15 (Declined at this time) Start: 10-30-2024 End: 10-30-2024 ambulatory [facility] Comment on above: (SO)CBC(S)/(SO)CMP(S )* START Q3WK CARBO/ALI MTA/AUTH EXP?* Start: 10-27-2024 End: 10-27-2024 ambulatory 10/27/2024 10:30 AM EST Infusion Center Hematology/Oncology [address] [place] [id number] [place], Jacquard [employer] [address] [place] [address] CHEMO EDUCATION-CARBO/ALIMTA* Hematology/Oncology Comment on above: CHEMO EDUCATION-CARB O/ALIMTA* Start: 10-23-2024 End: 10-23-2024 ambulatory 10/23/2024 12:00 PM EST Visit (SP) Office Hematology/Oncology [address] [place] [id number] [place] [address] [place] [address] OV/DISCUSS OPTIONS/GUARDANT RESULTS* Hematology/Oncology Comment on above: OV/DISCUSS OPTIONS/G UARDANT RESULTS* Start: 10-23-2024 End: 10-23-2024 Patient encounter procedure 10/23/2024 11:30 AM EST Results Only [place] [place] [facility] [address] [place] [id number] CLINICAL TRIAL DRAW - LIZA TO PROVIDE TUBES* [facility] Comment on above: CLINICAL TRIAL DRAW - LIZA TO PROVIDE TUBES* Start: 10-02-2024 End: 10-02-2024 ambulatory Hematology/Oncology Comment on above: Q6WK KEYTRUDA/Q3MO Z OMETA/LAB&OV 09/30/AUTH EXP 10/07/24* Q3MO ZOMETA DUE 12/25 LABS* Start: 09-30-2024 End: 09-30-2024 ambulatory [place] [facility] Laboratory Comment on above: LAB* (SO)CBC/CMP(S)/TSH/T 4/CORTISOL/OV/CHEMO 10/02* ABRAMOVICH (SO)CBC/CMP(S)/TSH/T 4/CORTISOL OV/LAB EARLY/PET 09/15/CHEMO 10/02* ABRAMOVICH Start: 09-15-2024 End: 09-15-2024 Patient encounter procedure Mobile PET CT Comment on above: Malignant neoplasm o f unspecified part of unspecified bronchus or lung (HCC) [C3... Start: 09-11-2024 End: 09-11-2024 Patient encounter procedure 09/11/2024 12:45 PM EST Office Visit Pulmonary Medicine [address] [place] [address] Georgina Morgan MD [address] [place] [address] Emphysema Pulmonary Medicine Comment on above: Emphysema Start: 09-08-2024 End: 09-08-2024 Patient encounter procedure 09/08/2024 2:40 PM EST Office Visit [facility] [place] [address] [place] [address] Fiona Durant MD [address] [place] [address] 3 mo follow up [facility] [place] Comment on above: 3 mo follow up Start: 08-21-2024 End: 08-21-2024 ambulatory 08/21/2024 3:30 PM EST Infusion Center Hematology/Oncology [address] [place] [address] Q6WK KEYTRUDA/LAB&OV AUTH EXP 10/07/24* Q3MO ZOMETA DUE 10/02 Hematology/Oncology Comment on above: Q6WK KEYTRUDA/LAB&OV EXP 10/07/24* Q3MO ZOMETA DUE 10/02 Start: 08-19-2024 End: 08-19-2024 ambulatory [facility] Comment on above: LAB* (SO)CBC/CMP(S)/TSH/T 4/CORTISOL/OV/CHEMO 08/21* ADITYA Start: 08-15-2024 Annual PCP Team Yeast Tender liborio Disease Visit Annual PCP Team Chronic Disease Visit [facility] Start: 08-15-2024 Shingrix Vaccine (1 of 2) Shingrix Vaccine (1 of 2) [facility] Comment on above: Postponed from 11/08 (Declined at this time) Start: 08-15-2024 Urine microalbumin profile DTaP,Tdap,Td Vaccine (2 - Td or Tdap) [facility] Comment on above: Postponed from 12/25 (Declined at this time) Start: 07-10-2024 End: 07-10-2024 ambulatory 07/10/2024 3:00 PM EDT [facility] Hematology/Oncology [address] [place] [address] Q6WK KEYTRUDA/Q3MO ZOMETA/LAB&OV EXP 10/07/24* Q3MO ZOMETA DUE 10/02 Hematology/Oncology Comment on above: Q6WK KEYTRUDA/Q3MO Z OMETA/LAB&OV EXP 10/07/24* Q3MO ZOMETA DUE 10/02 Start: 07-08-2024 End: 07-08-2024 ambulatory [facility] Comment on above: LAB* (SO)CBC/CMP(S)/TSH/T 4/CORTISOL/OV/CHEMO 07/10* ADITYA Start: 06-08-2024 Influenza vaccination Influenza Vacc ine (#1) [facility] Start: 06-06-2024 End: 06-06-2024 Patient encounter procedure 06/06/2024 4:40 PM EDT Office Visit [facility] [place] [address] [place], [place] [id number] Fiona Durant MD [address] [place], [place] [address] 3 month follow up [facility] [place] Comment on above: 3 month follow up Start: 06-06-2024 End: 09-05-2024 Hemoglobin A1c in Blood HEMOGLOBIN A1C Lab Routine Elevated glucose Expected: 06/06/2024, Expires: 09/05/2024 [facility] Work Phone: Comment on above: Expected: 06/06/2024 , Expires: 09/05/2024 Start: 05-29-2024 End: 08-28-2024 Comprehensive metabolic 2000 panel - Serum or Plasma COMPREHENSIVE METABOLIC PANEL Lab STAT 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) Malignant neoplasm metastatic to bone (HCC) Expected: 05/29/2024, Expires: 08/28/2024 [facility] Work Phone: Comment on above: Expected: 05/29/2024 , Expires: 08/28/2024 Start: 05-29-2024 End: 08-28-2024 Magnesium [Mass/volume] in Serum or Plasma MAGNESIUM Lab STAT 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) Malignant neoplasm metastatic to bone (HCC) Expected: 05/29/2024, Expires: 08/28/2024 [facility] Comment on above: Expected: 05/29/2024 , Expires: 08/28/2024 Start: 05-29-2024 End: 05-29-2024 ambulatory Hematology/Oncology Comment on above: Q6WK KEYTRUDA/LAB&OV 05/27/AUTH EXP 10/07/24* Q3MO ZOMETA DUE 07/10 CBC/MAG* CMP(S)/MG(S)* LAB EARLY/Q6WK KEYTR UDA/LAB&OV 05/27/AUTH EXP 10/07/24* Start: 05-27-2024 End: 05-27-2024 ambulatory [facility] Comment on above: LAB* (SO)CBC/CMP(S)/TSH/T 4/CORTISOL/OV/CHEMO 05/29*() Start: 05-22-2024 ANNUAL PCP TEAM SWABBER LIBORIO DISEASE VISIT ANNUAL PCP TEAM CHRONIC DISEASE VISIT [facility] Start: 05-22-2024 COLORECTAL CANCER SCREENING COLORECTAL CANCER SCREENING [facility] Comment on above: Postponed from 11/08 (Declined at this time) Start: 05-22-2024 PNEUMOCOCCAL (2 - PCV) PNEUMOCOCCAL (2 - PCV) [facility] Comment on above: Postponed from 08/29 (Declined at this time) Start: 05-22-2024 Pneumococcal vaccination [facility] Comment on above: Postponed from 08/29 (Declined at this time) Start: 05-22-2024 Screening for malign ant neoplasm of colon Colorectal Cancer Screening [facility] Comment on above: Postponed from 11/08 (Declined at this time) Start: 05-22-2024 Zoledronic acid therapy ALPHA- 1 ANTITRYPSIN DEFICIENCY SCREENING [facility] Comment on above: Postponed from 11/08 (Declined at this time) Start: 05-05-2024 End: 05-05-2024 Patient encounter procedure Mobile PET CT Comment on above: 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) [C34.90, C79.51] Start: 04-17-2024 End: 04-17-2024 ambulatory Hematology/Oncology Comment on above: Q6WK KEYTRUDA/LAB&OV AUTH EXP 10/07/24* Q3MO ZOMETA DUE 04/17 Q6WK KEYTRUDA/Q3MO Z OMETA/LAB&OV 04/15/AUTH EXP 10/07/24* Start: 04-15-2024 End: 04-15-2024 ambulatory [facility] Comment on above: LAB* (SO)CBC/CMP(S)/TSH/T 4/CORTISOL/OV/CHEMO 04/17* Start: 03-06-2024 End: 06-05-2024 Comprehensive metabolic 2000 panel - Serum or Plasma COMPREHENSIVE METABOLIC PANEL Lab Routine 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) Expected: 03/06/2024, Expires: 06/05/2024 [facility] Work Phone: Comment on above: Expected: 03/06/2024 , Expires: 06/05/2024 Start: 03-06-2024 End: 06-05-2024 Thyrotropin [Units/volume] in Serum or Plasma THYROID STIMULATING HORMONE Lab Routine 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) Expected: 03/06/2024, Expires: 06/05/2024 [facility] Comment on above: Expected: 03/06/2024 , Expires: 06/05/2024 Start: 03-06-2024 End: 03-06-2024 ambulatory Hematology/Oncology Comment on above: Q6WK KEYTRUDA/Q3MO Z OMETA/LAB&OV EXP 10/07/24* Q3MO ZOMETA DUE 04/17 Q6WK KEYTRUDA/LAB&OV EXP 10/07/24* Q3MO ZOMETA DUE 04/17 Start: 03-05-2024 End: 03-05-2024 ambulatory [facility] Comment on above: LAB* (SO)CBC/CMP(S)/TSH/T 4/CORTISOL/OV/CHEMO 03/06* Start: 02-20-2024 End: 02-20-2024 Patient encounter procedure 02/20/2024 3:00 PM EDT Office Visit [facility] [place] [address] [place] [address] Fiona Durant MD [address] [place] [address] 3 mo follow up [facility] [place] Comment on above: 3 mo follow up Start: 02-11-2024 End: 02-11-2024 Patient encounter procedure Mobile PET CT Comment on above: Comment: CLINICAL TR LATRELL PATIENT- TO BE READ BY [facility] RADIOLOGIST RESEARCH [facility]/IRB #: [id number] - [phone] Start: 01-26-2024 ANNUAL PCP TEAM SWABBER LIBORIO DISEASE VISIT ANNUAL PCP TEAM CHRONIC DISEASE VISIT [facility] Start: 12-13-2023 End: 03-13-2024 Comprehensive metabolic 2000 panel - Serum or Plasma COMP METABOLIC PANEL Lab Routine 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) Expected: 12/13/2023, Expires: 03/13/2024 [facility] Work Phone: Comment on above: Expected: 12/13/2023 , Expires: 03/13/2024 Start: 12-13-2023 End: 03-13-2024 Thyrotropin [Units/volume] in Serum or Plasma TSH BLD Lab Routine 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) Expected: 12/13/2023, Expires: 03/13/2024 [facility] Work Phone: Comment on above: Expected: 12/13/2023 , Expires: 03/13/2024 Start: 10-24-2023 ANNUAL PCP TEAM SWABBER LIBORIO DISEASE VISIT ANNUAL PCP TEAM CHRONIC DISEASE VISIT [facility] Start: 10-08-2023 Behavioral Health Screening Behavioral Health Screening [facility] Start: 10-08-2023 Depression Assessment Depression Ass essment [facility] Start: 09-07-2023 RSV Vaccine (1 - 1-d ose 60+ series) RSV Vaccine (1 - 1-dose 60+ series) [facility] Comment on above: Postponed from 11/08 (Declined at this time) Start: 08-01-2023 End: 10-31-2023 Herpes simplex virus+Varicella zoster virus DNA [Presence] in Unspecified specimen by YUMI with probe detection [facility] Work Phone: Comment on above: Expected: 08/01/2023 , Expires: 10/31/2023 Start: 07-19-2023 ANNUAL PCP TEAM SWABBER LIBORIO DISEASE VISIT ANNUAL PCP TEAM CHRONIC DISEASE VISIT [facility] Start: 07-19-2023 SHINGRIX VACCINE (1 of 2) SHINGRIX VACCINE (1 of 2) [facility] Comment on above: Postponed from 11/08 (Declined at this time) Start: 06-08-2023 Influenza vaccination [facility] Start: 05-11-2023 End: 04-25-2024 Ct abdomen & pelvis w/contrast material CT ABD/PEL W IVCON Radiology Routine Malignant neoplasm of unspecified part of unspecified bronchus or lung (HCC) Expected: 05/11/2023 (Approximate), Expires: 04/25/2024 [facility] Work Phone: Comment on above: Expected: 05/11/2023 (Approximate), Expires: 04/25/2024 Start: 05-11-2023 End: 04-25-2024 CT CHEST W IVCON CT CHEST W IVCON Radiology Routine Malignant neoplasm of unspecified part of unspecified bronchus or lung (HCC) Expected: 05/11/2023 (Approximate), Expires: 04/25/2024 [facility] Work Phone: Comment on above: Expected: 05/11/2023 (Approximate), Expires: 04/25/2024 Start: 04-17-2023 ANNUAL PCP TEAM SWABBER LIBORIO DISEASE VISIT ANNUAL PCP TEAM CHRONIC DISEASE VISIT [facility] Start: 12-26-2022 ANNUAL PCP TEAM SWABBER LIBORIO DISEASE VISIT ANNUAL PCP TEAM CHRONIC DISEASE VISIT [facility] Start: 12-15-2022 Hepatitis B surface antibody level LDL Cholesterol [facility] Start: 11-21-2022 Colonoscopy COLONOSCOPY [facility] Start: 11-21-2022 COLORECTAL CANCER SCREENING COLORECTAL CANCER SCREENING [facility] Start: 11-21-2022 Screening for malign ant neoplasm of colon [facility] Start: 10-08-2022 DEPRESSION ASSESSMENT DEPRESSION ASS ESSMENT [facility] Start: 07-03-2022 End: 09-02-2022 Amylase [Enzymatic activity/volume] in Serum or Plasma AMYLASE BLD Lab Routine Examination of participant in clinical trial 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, bronchus, and lung (HCC) Expected: 07/03/2022 (Approximate), Expires: 09/02/2022 [facility] Work Phone: Comment on above: Expected: 07/03/2022 (Approximate), Expires: 09/02/2022 Start: 07-03-2022 End: 09-02-2022 CBC W Auto Differential panel - Blood CBC + DIFF Lab Routine Examination of participant in clinical trial 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, bronchus, and lung (HCC) Expected: 07/03/2022 (Approximate), Expires: 09/02/2022 [facility] Work Phone: Comment on above: Expected: 07/03/2022 (Approximate), Expires: 09/02/2022 Start: 07-03-2022 End: 09-02-2022 Comprehensive metabolic 2000 panel - Serum or Plasma COMP METABOLIC PANEL Lab Routine Examination of participant in clinical trial 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, bronchus, and lung (HCC) Expected: 07/03/2022 (Approximate), Expires: 09/02/2022 [facility] Work Phone: Comment on above: Expected: 07/03/2022 (Approximate), Expires: 09/02/2022 Start: 07-03-2022 End: 09-02-2022 Cortisol [Mass/volume] in Serum or Plasma CORTISOL BLD Lab Routine Cancer of trachea, bronchus, and lung (HCC) Bone metastases (HCC) Expected: 07/03/2022, Expires: 09/02/2022 [facility] Work Phone: Comment on above: Expected: 07/03/2022 , Expires: 09/02/2022 Start: 07-03-2022 End: 09-02-2022 Lipase [Enzymatic activity/volume] in Serum or Plasma LIPASE BLD Lab Routine Examination of participant in clinical trial 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, bronchus, and lung (HCC) Expected: 07/03/2022 (Approximate), Expires: 09/02/2022 [facility] Work Phone: Comment on above: Expected: 07/03/2022 (Approximate), Expires: 09/02/2022 Start: 07-03-2022 End: 09-02-2022 Thyrotropin [Units/volume] in Serum or Plasma TSH BLD Lab Routine Examination of participant in clinical trial 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, bronchus, and lung (HCC) Expected: 07/03/2022 (Approximate), Expires: 09/02/2022 [facility] Work Phone: Comment on above: Expected: 07/03/2022 (Approximate), Expires: 09/02/2022 Start: 06-27-2022 Adult depression screening assessment DEPRESSION SCREENING [facility] Start: 06-08-2022 Influenza vaccination INFLUENZA (#1) [facility] Start: 04-27-2022 Urine microalbumin profile DTAP,TDAP,TD (2 - Td or Tdap) [facility] Comment on above: Postponed from 12/25 (Declined at this time) Start: 03-15-2022 SHINGRIX VACCINE (1 of 2) SHINGRIX VACCINE (1 of 2) [facility] Comment on above: Postponed from 11/08 (Declined at this time) Start: 02-10-2022 End: 02-02-2023 Ct abdomen w/contrast material CT ABDOMEN W IVCON Radiology Routine Bone metastases (HCC) Malignant neoplasm of unspecified part of unspecified bronchus or lung (HCC) Nausea Expected: 02/10/2022, Expires: 02/02/2023 [facility] Work Phone: Comment on above: Expected: 02/10/2022 , Expires: 02/02/2023 Start: 02-10-2022 End: 02-02-2023 Ct thorax w/contrast material [facility] Work Phone: Comment on above: Expected: 02/10/2022 , Expires: 02/02/2023 Start: 01-24-2022 End: 03-26-2022 Cortisol [Mass/volume] in Serum or Plasma CORTISOL BLD Lab Routine Cancer of trachea, bronchus, and lung (HCC) Bone metastases (HCC) Expected: 01/24/2022, Expires: 03/26/2022 [facility] Work Phone: Comment on above: Expected: 01/24/2022 , Expires: 03/26/2022 Start: 12-25-2021 Urine microalbumin profile [facility] Start: 2021 RSV Vaccine (1 - 1-d ose 60+ series) RSV Vaccine (1 - 1-dose 60+ series) [facility] Start: 2021 RSV Vaccine (1 - Ris k 60-74 years 1-dose series) RSV Vaccine (1 - Risk 60-74 years 1-dose series) [facility] Start: 10-08-2021 DEPRESSION ASSESSMENT DEPRESSION ASS ESSMENT [facility] Start: 08-29-2018 PNEUMOCOCCAL (2 - PCV) PNEUMOCOCCAL (2 - PCV) [facility] Start: 08-29-2018 Pneumococcal vaccination Pneumococcal Vaccine (2 of 2 - PCV) [facility] Start: 08-29-2018 Pneumococcal Vaccine : 50+ (2 of 2 - PCV) Pneumococcal Vaccine: 50+ (2 of 2 - PCV) [facility] Start: 08-11-2017 Mammography [facility] Start: 08-11-2017 Screening for malign ant neoplasm of breast Mammogram Screening [facility] Start: 2006 COLOGUARD (FIT-DNA) COLOGUARD (FIT-D NA) [facility] Start: [address] COLONOGRAPHY [facility] Start: 2006 FECAL OCCULT BLOOD FECAL OCCULT BLOO D [facility] Start: 2006 Screening for malign ant neoplasm of colon [facility] Start: 2006 SIGMOIDOSCOPY SIGMOIDOSCOPY [facility] Start: 1991 Zoledronic acid therapy ALPHA- 1 ANTITRYPSIN DEFICIENCY SCREENING [facility] Start: 1980 SHINGRIX VACCINE (1 of 2) SHINGRIX VACCINE (1 of 2) [facility] Start: 1979 Anxiety Screening Anxiety Screening [facility] Start: 1979 Depression Screening Depression Scre ening [facility] Bacteria identified in Sputum by Respiratory culture [facility] End: 02-19-2024 CBC W Auto Differential panel - Blood CBC + DIFF Lab STAT Non-small cell lung cancer metastatic to bone (HCC) Cancer of lower lobe of right lung (HCC) Cancer of trachea, bronchus, and lung (HCC) Every 6 weeks for 2 Occurrences starting 02/19/2023 until 02/19/2024 [facility] Work Phone: Comment on above: Every 6 weeks for 2 Occurrences starting 02/19/2023 until 02/19/2024 End: 08-19-2025 CBC W Auto Differential panel - Blood COMPLETE BLOOD COUNT AND DIFFERENTIAL Lab Routine Malignant neoplasm of unspecified part of unspecified bronchus or lung (HCC) Every 6 weeks for 10 Occurrences starting 08/19/2024 until 08/19/2025 [facility] Comment on above: Every 6 weeks for 10 Occurrences starting 08/19/2024 until 08/19/2025 End: 10-23-2025 CBC W Auto Differential panel - Blood COMPLETE BLOOD COUNT AND DIFFERENTIAL Lab STAT Non-small cell lung cancer metastatic to bone (HCC) Every 3 weeks for 6 Occurrences starting 10/23/2024 until 10/23/2025 [facility] Work Phone: Comment on above: Every 3 weeks for 6 Occurrences starting 10/23/2024 until 10/23/2025 End: 04-08-2026 CBC W Auto Differential panel - Blood COMPLETE BLOOD COUNT AND DIFFERENTIAL Lab STAT Non-small cell lung cancer metastatic to bone (HCC) Once per week for 24 Occurrences starting 04/08/2025 until 04/08/2026 [facility] Work Phone: Comment on above: Once [...] for 2 Occurrences starting 02/19/2023 until 02/19/2024 [facility] Work Phone: Comment on above: Every 6 weeks for 2 Occurrences starting 02/19/2023 until 02/19/2024 End: 08-19-2025 Comprehensive metabolic 2000 panel - Serum or Plasma COMPREHENSIVE METABOLIC PANEL Lab Routine Malignant neoplasm of unspecified part of unspecified bronchus or lung (HCC) Every 6 weeks for 10 Occurrences starting 08/19/2024 until 08/19/2025 [facility] Comment on above: Every 6 weeks for 10 Occurrences starting 08/19/2024 until 08/19/2025 End: 10-23-2025 Comprehensive metabolic 2000 panel - Serum or Plasma COMPREHENSIVE METABOLIC PANEL Lab STAT Non-small cell lung cancer metastatic to bone (HCC) Every 3 weeks for 6 Occurrences starting 10/23/2024 until 10/23/2025 [facility] Comment on above: Every 3 weeks for 6 Occurrences starting 10/23/2024 until 10/23/2025 End: 04-08-2026 Comprehensive metabolic 2000 panel - Serum or Plasma COMPREHENSIVE METABOLIC PANEL Lab STAT Non-small cell lung cancer metastatic to bone (HCC) Every 3 weeks for 10 Occurrences starting 04/08/2025 until 04/08/2026 [facility] Comment on above: Every 3 weeks for 10 Occurrences starting 04/08/2025 until 04/08/2026 End: 02-19-2024 Cortisol [Mass/volume] in Serum or Plasma CORTISOL BLD Lab Routine Non-small cell lung cancer metastatic to bone (HCC) Cancer of lower lobe of right lung (HCC) Cancer of trachea, bronchus, and lung (HCC) Every 6 weeks for 2 Occurrences starting 02/19/2023 until 02/19/2024 [facility] Work Phone: Comment on above: Every 6 weeks for 2 Occurrences starting 02/19/2023 until 02/19/2024 End: 08-19-2025 Cortisol [Mass/volume] in Serum or Plasma CORTISOL, SERUM Lab Routine Malignant neoplasm of unspecified part of unspecified bronchus or lung (HCC) Every 6 weeks for 10 Occurrences starting 08/19/2024 until 08/19/2025 [facility] Comment on above: Every 6 weeks for 10 Occurrences starting 08/19/2024 until 08/19/2025 CT CHEST W IVCON CT CHEST W IVCO N Radiology Routine Malignant neoplasm of unspecified part of unspecified bronchus or lung (HCC) 05/05/2022 10:31 AM EDT [facility] Work Phone: End: 01-01-2026 DBT Breast - bilateral screening CESILIA SCREENING W CARMEN Radiology Routine Encounter for screening mammogram for breast cancer 1 Occurrences starting 12/02/2024 until 01/01/2026 [facility] Work Phone: Comment on above: 1 Occurrences starti ng 12/02/2024 until 01/01/2026 End: 03-19-2026 ECG COMPLETE [facility] Work Phone: Comment on above: 1 Occurrences starti ng 03/19/2025 until 03/19/2026 ECG COMPLETE ECG COMPLETE ECG STAT Adenopathy 03/20/2025 10:23 AM EDT [facility] Work Phone: Lactic acid measurement [facility] Lipid 1996 panel - Serum or Plasma [facility] End: 02-16-2024 CESILIA SCREENING CESILIA SCREENING Radiology Routine Encounter for screening mammogram for breast cancer 1 Occurrences starting 01/17/2023 until 02/16/2024 [facility] Work Phone: Comment on above: 1 Occurrences starti ng 01/17/2023 until 02/16/2024 End: 01-24-2025 MG Breast Screening CESILIA SCREENING Radiology Routine Encounter for screening mammogram for breast cancer 1 Occurrences starting 12/26/2023 until 01/24/2025 [facility] Work Phone: Comment on above: 1 Occurrences starti ng 12/26/2023 until 01/24/2025 Microscopic observat ion [Identifier] in Unspecified specimen by Gram stain [facility] End: 05-15-2025 PET+CT Guidance for localization of tumor of Skull base to mid-thigh-- W 18F-FDG IV NM PET/CT SKULL-THIGH SUBSEQUENT Radiology Routine Non-small cell lung cancer metastatic to bone (HCC) 1 Occurrences starting 04/15/2024 until 05/15/2025 [facility] Work Phone: Comment on above: 1 Occurrences starti ng 04/15/2024 until 05/15/2025 PET+CT Guidance for localization of tumor of Skull base to mid-thigh-- W 18F-FDG IV NM PET/CT SKULL-THIGH SUBSEQUENT Radiology Routine Non-small cell lung cancer metastatic to bone (HCC) 05/05/2024 1:01 PM EDT [facility] Work Phone: End: 09-18-2025 PET+CT Guidance for localization of tumor of Skull base to mid-thigh-- W 18F-FDG IV NM PET/CT SKULL-THIGH SUBSEQUENT Radiology Routine Malignant neoplasm of unspecified part of unspecified bronchus or lung (HCC) 1 Occurrences starting 08/19/2024 until 09/18/2025 [facility] Work Phone: Comment on above: 1 Occurrences starti ng 08/19/2024 until 09/18/2025 PET+CT Guidance for localization of tumor of Skull base to mid-thigh-- W 18F-FDG IV NM PET/CT SKULL-THIGH SUBSEQUENT Radiology Routine Malignant neoplasm of unspecified part of unspecified bronchus or lung (HCC) 09/15/2024 12:54 PM EST [facility] Work Phone: End: 03-06-2026 PET+CT Guidance for localization of tumor of Skull base to mid-thigh-- W 18F-FDG IV NM PET/CT SKULL-THIGH SUBSEQUENT Radiology Routine Non-small cell lung cancer metastatic to bone (HCC) 1 Occurrences starting 02/04/2025 until 03/06/2026 [facility] Work Phone: Comment on above: 1 Occurrences starti ng 02/04/2025 until 03/06/2026 PET+CT Guidance for localization of tumor of Skull base to mid-thigh-- W 18F-FDG IV NM PET/CT SKULL-THIGH SUBSEQUENT Radiology Routine Non-small cell lung cancer metastatic to bone (HCC) 03/09/2025 12:45 PM EDT [facility] Work Phone: PET+CT Whole body Stephen ne W 18F-NaF IV NM PET/CT WHOLE BODY SUBSEQUENT Radiology Routine Malignant neoplasm of unspecified part of unspecified bronchus or lung (HCC) 02/18/2024 9:56 AM EDT [facility] Work Phone: End: 03-17-2023 Screening mammography bi 2-view breast inc cad CESILIA SCREENING Radiology Routine Encounter for screening mammogram for breast cancer 1 Occurrences starting 02/15/2022 until 03/17/2023 [facility] Work Phone: Comment on above: 1 Occurrences starti ng 02/15/2022 until 03/17/2023 End: 02-19-2024 Thyrotropin [Units/volume] in Serum or Plasma TSH BLD Lab Routine Non-small cell lung cancer metastatic to bone (HCC) Cancer of lower lobe of right lung (HCC) Cancer of trachea, bronchus, and lung (HCC) Every 6 weeks for 2 Occurrences starting 02/19/2023 until 02/19/2024 [facility] Work Phone: Comment on above: Every 6 weeks for 2 Occurrences starting 02/19/2023 until 02/19/2024 Thyrotropin [Units/volume] in Serum or Plasma THYROID STIMULATING HORMONE Lab Routine Non-small cell lung cancer metastatic to bone (HCC) 04/17/2024 12:57 PM EDT [facility] Work Phone: End: 08-19-2025 Thyrotropin [Units/volume] in Serum or Plasma THYROID STIMULATING HORMONE Lab Routine Malignant neoplasm of unspecified part of unspecified bronchus or lung (HCC) Malaise and fatigue Every 6 weeks for 10 Occurrences starting 08/19/2024 until 08/19/2025 [facility] Comment on above: Every 6 weeks for 10 Occurrences starting 08/19/2024 until 08/19/2025 End: 02-19-2024 Thyroxine (T4) free [Mass/volume] in Serum or Plasma T4 FREE/FREE THYROX Lab Routine Non-small cell lung cancer metastatic to bone (HCC) Cancer of lower lobe of right lung (HCC) Cancer of trachea, bronchus, and lung (HCC) Every 6 weeks for 2 Occurrences starting 02/19/2023 until 02/19/2024 [facility] Work Phone: Comment on above: Every 6 weeks for 2 Occurrences starting 02/19/2023 until 02/19/2024 Thyroxine (T4) free [Mass/volume] in Serum or Plasma T4 FREE/FREE THYROXINE Lab Routine Non-small cell lung cancer metastatic to bone (HCC) Malaise and fatigue 04/17/2024 12:57 PM EDT [facility] Urine culture [facility] End: 01-10-2024 US LEG VEIN DVT UNL VAS LAB US LEG VEIN DVT UNL VAS LAB Vascular Lab Routine Cancer of lower lobe of right lung (HCC) Left leg swelling 1 Occurrences starting 01/09/2023 until 01/10/2024 [facility] Work Phone: Comment on above: 1 Occurrences starti ng 01/09/2023 until 01/10/2024 End: 03-21-2024 Us soft tissue head & neck real time imge docm US THYROID/PARATHYROID Radiology Routine Thyroid nodule 1 Occurrences starting 02/20/2023 until 03/21/2024 [facility] Work Phone: Comment on above: 1 Occurrences starti ng 02/20/2023 until 03/21/2024 [facility] Immunizations Immunization Date Immunization Notes Care Provider Fa [facility] 09-08-2024 influenza, seasonal, injectable Georgina Morgan MD Work Phone: [facility] 09-08-2024 influenza virus vacc ine, unspecified formulation Sandoval Burgess MD Work Phone: [facility] 08-15-2023 influenza, injectabl e, quadrivalent, contains preservative Liza Canas RN [facility] 08-15-2023 influenza virus vacc ine, unspecified formulation Sandoval Burgess MD Work Phone: [facility] 07-19-2022 influenza, injectabl e, quadrivalent, contains preservative Liza Canas RN [facility] 07-19-2022 influenza virus vacc ine, unspecified formulation Ann Slade PA-C Work Phone: [facility] 08-08-2021 influenza, injectabl e, quadrivalent, preservative free Liza Canas RN [facility] Work Phone: 08-18-2019 influenza, injectabl e, quadrivalent, contains preservative Liza Canas RN [facility] 09-16-2018 influenza, injectabl e, quadrivalent, contains preservative Liza Canas RN [facility] Work Phone: 08-29-2017 influenza, injectabl e, quadrivalent, contains preservative Liza Canas RN [facility] 08-29-2017 pneumococcal polysaccharide vaccine, 23 valent Liza Canas RN [facility] 08-28-2016 influenza, injectabl e, quadrivalent, contains preservative Liza Canas RN [facility] 08-18-2015 influenza, injectabl e, quadrivalent, contains preservative Liza Canas RN [facility] 08-05-2013 influenza virus vacc ine, unspecified formulation Liza Canas RN [facility] 12-26-2011 tetanus toxoid, redu melvin diphtheria toxoid, and acellular pertussis vaccine, adsorbed Liza Canas RN [facility] 12-25-2011 tetanus and diphther ia toxoids, not adsorbed, for adult use Liza Canas RN [facility] 07-29-2011 influenza virus vacc ine, unspecified formulation Liza Canas [facility] Work Phone: 07-14-2010 influenza virus vacc ine, unspecified formulation Liza Canas RN [facility] 08-14-2008 influenza virus vacc ine, unspecified formulation Liza Canas RN [facility] Work Phone: 08-07-2007 influenza virus vacc ine, unspecified formulation Liza Canas RN [facility] 08-13-2006 influenza virus vacc ine, unspecified formulation Liza Canas [facility] Work Phone: Payers Date Payer Category Payer Self-pay 2023 Unknown [id number] 2016 Unknown [id number] 2013 Medicaid [employer] [id number] 2013-Present [phone] [address] [place] [address] Medicaid [id number] 2013 Medicaid [id number] Unknown [id number] Unknown [id number] Unknown [id number] Unknown [id number] Unknown [id number] Unknown [id number] Social History Date Type Detail Facility Start: 08-08-2021 End: 04-27-2025 Tobacco smoking status NHIS Smokes tobacco daily [facility] Start: 03-08-2024 History of tobacco use Cigarette Smo ker [facility] Start: 08-08-2021 End: 02-09-2023 Cigarettes smoked current (pack per day) - Reported 2 [facility] Work Phone: Start: 08-08-2021 End: 04-08-2025 Tobacco use and exposure Smokeless tobacco non-user [facility] Start: 01-03-2022 End: 02-14-2022 Alcohol intake Current non-drinker of alcohol (finding) [facility] Start: 12-13-2021 Tobacco Comment Pt has cut carlos k to one pack every 2 days. [facility] Start: 1960 Sex Assigned At Female C [facility] Start: 10-19-2021 End: 09-04-2022 Exposure to SARS-CoV-2 (event) Not sure [facility] Start: 02-14-2022 End: 07-19-2022 Tobacco Comment Pt has cut back to one pack every 3 days. [facility] Start: 03-03-2022 End: 04-24-2025 Alcohol intake Current drinker of alcohol (finding) [facility] Start: 03-03-2022 History SDOH Alcohol Comment Occasional glass of wine. A few per month [facility] Start: 07-24-2022 Tobacco Comment Pt has cut carlos k to one pack weekly. [facility] Start: 10-24-2022 Tobacco Comment Pt has cut carlos k to one pack weekly. 10/24/22--2 packs per week and working on quitting. Noted smoking causes wheezing [facility] Start: 02-09-2023 End: 04-16-2023 Tobacco use panel [facility] Work Phone: Adult Depression Screening Assessment 3 [facility] Work Phone: Start: 09-21-2020 Gender identity Identifies as female gender (finding) [facility] Start: 09-21-2020 Sexual orientation Heterosexual (kia ignacio) [facility] Start: 05-22-2023 Tobacco Comment Down to 1PPD s till; stress [facility] Start: 11-28-2023 Tobacco Comment Down to 1PPD s till; stress --still 1PPD (November 28, 2023) [facility] Start: 01-23-2024 Tobacco Comment Down to 1PPD [facility] Start: 09-08-2024 Tobacco Comment Was down to 1P PD then 3cig per week but back to 1PPD since not able to get Chantix covered. [facility] Start: 09-30-2024 Tobacco Comment Was down to 1P PD then 3cig per week but back to 1PPD [facility] Start: 10-08-2019 Alcohol Alcohol [facility] Start: 10-08-2019 Lives Lives [facility] Start: 10-09-2019 Tobacco Use Tobacco Use [facility] Medical Equipment Procedure Code Equipment Code Equipment Origin al Text Equipment Identifier Dates Test blood sugar (s) 1 times daily. Dx: (R73.9) Hyperglycemia; (R73.03) Prediabetes Insulin: No [id number], [id number] Start: 09-04-2023 End: 09-08-2024 Comment on above: Test blood sugar(s) 1 times daily. Dx: (R73.9) Hyperglycemia; (R73.03) Prediabetes Insulin: No Functional Status Date Assessment Result Facility 04-12-2015 Are you deaf, or do you have serious difficulty hearing No 04/12/2015 10:52 AM Meryl Fuentes Cma No [facility] 04-12-2015 Are you blind, or do you have serious difficulty seeing, even when wearing glasses No 04/12/2015 10:52 AM Meryl Fuentes Cma No [facility] 04-12-2015 Do you have serious difficulty walking or climbing stairs Yes 04/12/2015 10:52 AM EDMeryl Espinoza Cma Yes [facility] 04-12-2015 Do you have difficul ty dressing or bathing No 04/12/2015 10:52 AM EDT Meryl Xiong Cma [facility] 04-12-2015 Because of a physica l, mental, or emotional condition, do you have difficulty doing errands alone such as visiting a physician's office or shopping No 04/12/2015 10:52 AM EDT Meryl Xiong Cma [facility] Mental Status Date Assessment Result Facility 04-12-2015 Because of a physica l, mental, or emotional condition, do you have serious difficulty concentrating, remembering, or making decisions No 04/12/2015 10:52 AM EDT Meryl Xiong Cma [facility] Clinical Notes 02-07-2008 to 04-27-2025 Note Date & Type Note Facility 04-27-2025 Discharge summary Note Date/Time April 27, 2025 7:39pm [facility] Medical Records Department [address] [place] [address] Emergency Department Summary 04/27/25 MR#: [id number] Acct: [id number] Name: LAAT SMITH Rep #:[id number] : 1960 64 From: Yaya loveett DO PCP: Dr. Fiona Durant MD Status:RE G ER Location: ED HPI History of Present Illness Chief Complaint: Shortness of Breath Narrative Narrative: Chief complaint and HPI: Shortness of breath and cough. 64-year-old female withhistory of stage IV lung cancer that is metastasized to the bone, COPD presents for evaluation of shortness of breath and cough. Patient states her last chemotherapy was 1.5 months ago. She does not receive radiation. Does not havea port. Patient states for the past 3 weeks she has been having progressive shortness of breath and productive cough. She states she called her primary care physician weeks ago stating that she needed steroids and antibiotics however medication was not given. She states her shortness of breath and cough has worsened. She endorses decreased appetite. She denies any fever, chills, chest pain, abdominal pain, nausea, vomiting, dysuria. Daily smoker. Not on blood thinners. Review of systems: See HPI Medications: As listed on the chart Allergies: As listed on the chart PFSH: Per chart Vital signs: As listed on the chart. Reviewed. Physical exam: Gen: A&O x3, NAD Head: Normocephalic, atraumatic Eyes: No sclera icterus, conjunctiva clear ENT: Moist mucous membranes Neck: Trachea midline, No JVD CV: RRR, no murmurs, no peripheral edema Resp: Lungs diminished in the bilateral bases, coarse, expiratory wheezing, tachypneic, 2 L nasal cannula GI: Abd soft, non-distended, non-tender, no r/r/g Musc: Full ROM, no deformity Skin: Warm, dry Neuro: Alert, oriented, grossly intact, sensation intact Psych: Cooperative, appropriate mood and [facility] History Hyperlipidemia Left ventricular hypertrophy Essential hypertension History of ST elevation myocardial infarction (STEMI) (10/09/19) Tobacco abuse Metastatic lung carcinoma Asthma Arteriosclerosis of coronary artery in patient with history of myocardial infarction COPD (chronic obstructive pulmonary disease) Home Medications ?Medication ?Instructions ?Recorded ?Last Taken ?Type albuterol sulfate 90 mcg/actuation 2 puff inhalation P RN PRN 03/04/14 02/17/15 18:30 History aerosol inhaler Shortness Of Breath 2 PUFF fluticasone propionate 50 2 spray intranasal DAILY PRN 07/05/20 Unknown History mcg/actuation nasal allergy symptoms spray,suspension (Flonase Allergy Relief) cyclobenzaprine 10 mg tablet 10 mg PO BID PRN pain 04/28 Unknown History rosuvastatin 40 mg tablet 40 mg PO DAILY 01/12/22 Unkn own History aspirin 81 mg tablet,delayed 81 mg PO DAILY@0800 #90 t abs 01/12/23 04/26/25 Rx release hydrochlorothiazide 25 mg tablet 25 mg PO DAILY #90 ta bs 05/08/24 04/26/25 Rx verapamil 120 mg 24 hr 120 mg PO DAILY #90 caps 10/3104/26/25 Rx capsule,extended release albuterol sulfate 2.5 mg/3 mL 2.5 mg continuous nebuli zation Q6 01/29/25 Unknown History (0.083 %) solution for nebulization PRN wheezing benzonatate 100 mg capsule 200 mg PO TID PRN cough Unknown History esomeprazole magnesium 20 mg 20 mg PO QAM 01/29/25 Unk nown History capsule,delayed release fluticasone 500 mcg-salmeterol 50 1 ea inhalation BID 01/29/25 Unknown History mcg/dose blistr powdr for inhalation (Advair Diskus) folic acid 1 mg tablet 1 mg PO QDAY 01/29/25 Unknow n History furosemide 20 mg tablet 20 - 40 mg PO QDAY PRN edema 01/29/25 Unknown History ibuprofen 800 mg tablet 800 mg PO Q8H PRN pain 01/29 Unknown History losartan 25 mg tablet 25 mg PO QDAY 01/29/25 Unkno wn History multivitamin with folic acid 400 1 tab PO QDAY 5 Unknown History mcg tablet (Daily-Nettie (with folic acid)) oxycodone-acetaminophen 10 mg-325 1 tab PO Q4 PRN pain 01/29/25 Unknown History mg tablet potassium chloride 20 mEq oral 20 meq PO BID 01/29/25 Unknown History packet sennosides 8.6 mg tablet (Natural 17.2 mg PO BID 01/29 Unknown History Senna Laxative) umeclidinium 62.5 mcg/actuation 1 inh inhalation QDAY 01/29/25 Unknown History blister powder for inhalation (Incruse Ellipta) celecoxib 100 mg capsule 100 mg PO Q24H 04/27/25 Unkn own History levofloxacin 500 mg tablet 500 mg PO DAILY 04/27/25 History prednisone 10 mg tablet See Rx Instructions PO .COMP RENATO 04/27/25 04/26/25 History prochlorperazine maleate 10 mg 10 mg PO Q6H PRN Unknown History tablet Allergy/AdvReac Type Severity Reaction Status Date / Time Penicillins Allergy Intermediate Hives Verified 04/27/25 14:18 amoxicillin trihydrate (From Allergy Hives Verified 04/27/25 14:18 Augmentin) potassium clavulanate (From Allergy Hives Verified 04/27/25 14:18 Augmentin) Family History Brother Cancer lung Surgical History S/P trigger finger release History of coronary artery stent placement (10/09/19) History of cholecystectomy History of appendectomy History of carpal tunnel release of both wrists History of hysterectomy Social History (Updated 01/29/25 @ 14:12 by Nel Delgado) Smoking Status: Current every day smoker tobacco type: cigarettes quit status: quit date established alcohol intake: never substance use type: marijuana caffeine: No EXAM Physical Exam Const Vital Signs: 04/27/25 14:18 04/27/25 14:21 04/27/25 14:21 Temperature 97.9 F 98.5 F Temperature Source Oral Oral Pulse Rate 96 93 Respiratory Rate 38 H 26 H Respiratory Depth Shallow Respiratory Pattern Tachypnea Blood Pressure 70/40 L 94/56 L Blood Pressure Mean 50 68 Pulse Ox 91 99 Oxygen Delivery Method Room Air Room Air Nasal Cannula Oxygen Flow Rate (L/min) 2 Fraction of Inspired Oxygen (FIO2) 04/27/25 14:32 04/27/25 14:40 04/27/25 14:48 Temperature 98.8 F Temperature Source Oral Pulse Rate 90 87 Respiratory Rate 24 H 26 H Respiratory Depth Respiratory Pattern Tachypnea Blood Pressure 78/51 L Blood Pressure Mean 60 Pulse Ox 98 97 Oxygen Delivery Method Nasal Cannula Nasal Cannula Oxygen Flow Rate (L/min) 2 2 Fraction of Inspired Oxygen (FIO2) 04/27/25 15:18 04/27/25 15:21 04/27/25 16:00 Temperature 98.7 F 97.8 F 97.8 F Temperature Source Oral Oral Oral Pulse Rate 87 90 84 Respiratory Rate 23 H 22 H 21 H Respiratory Depth Respiratory Pattern Blood Pressure 71/43 L 90/42 L 95/51 L Blood Pressure Mean 52 58 65 Pulse Ox 98 95 95 Oxygen Delivery Method Nasal Cannula Nasal Cannula Nasal Cannula Oxygen Flow Rate (L/min) 2 2 2 Fraction of Inspired Oxygen (FIO2) 04/27/25 16:32 04/27/25 16:48 04/27/25 17:00 Temperature 98.9 F 98.1 F Temperature Source Oral Temporal Pulse Rate 98 97 95 Respiratory Rate 26 H 24 H 25 H Respiratory Depth Respiratory Pattern Tachypnea Blood Pressure 94/56 L 109/47 L Blood Pressure Mean 68 67 Pulse Ox 92 96 100 Oxygen Delivery Method Nasal Cannula Bi-pap Oxygen Flow Rate (L/min) 4 Fraction of Inspired Oxygen (FIO2) 50 04/27/25 17:56 04/27/25 18:23 Temperature 97.8 F 98.2 F Temperature Source Temporal Temporal Pulse Rate 87 88 Respiratory Rate 24 H 24 H Respiratory Depth Respiratory Pattern Blood Pressure 74/44 L 82/51 L Blood Pressure Mean 54 61 Pulse Ox 99 99 Oxygen Delivery Method Bi-pap Bi-pap Oxygen Flow Rate (L/min) Fraction of Inspired Oxygen (FIO2) 30 30 MDM MDM MDM Narrative Medical decision making narrative: 64-year-old female with history of stage IV lung cancer that is metastasized to the bone, COPD presents for evaluation of shortness of breath and cough. Patient states her last chemotherapy was 1.5 months ago. She does not receive radiation. Does not have a port. Patient states for the past 3 weeks she has been having progressive shortness of breath and productive cough. Daily smoker. Not on blood thinners. On presentation, patient is hypotensive, tachypneic, hypoxic. Does not wear oxygen at home. Differential diagnosis includes but is not limited to pneumonia, COPD exacerbation, PE, viral illness, electrolyte abnormality, SABA, UTI. Patient meets sepsis criteria. Cefepime and vancomycin ordered broadly given that patient is immunocompromise given her chemotherapy. Solu-Medrol and DuoNebs ordered. 30 cc/kg bolus will be given based on ideal body weight as concern is for fluid overload with your respiratory status. Infectious workup ordered including CTA of the chest. CBC with leukocytosis of 21.5. No anemia. Platelets unremarkable. VBG without acidosis or hypercapnia. CMP consistent with dehydration. Patient's potassium is 2.6. IV potassium ordered for replacement as well as magnesium level. Patient has a BUN of 53 and acreatinine of 1.63. Previous labs on chart review are from 2022 normal kidney function at that time. Unknown if this is acute or chronic. Her lactic is 2.3. She is receiving fluids. Her magnesium level mildly elevated. Troponin 39. Patient not endorsing any chest pain. Will get delta. BNP elevated at 1615. CTA of the chest negative for PE. Patient has mediastinal lymphadenopathy of the main pulmonary arteries being encased causing mass effect, greater on the right. Concerning for her known neoplastic process. Partial consolidation and groundglass attenuation of the right lower lobe, likely pneumonia. Urschel consolidation in the right middle lobe. Patient already receiving antibiotics. On reevaluation, blood pressure has improved with fluids however she is having increasing shortness of breath, will place on BiPAP. Patient updated of all theresults and the plan for admission. Spoke with the hospitalist service who would like to reach out to pulmonology prior to accepting admission. Waiting for their plan. Hospital service spoke with daycare provider, patient wants full treatment will be better served at a tertiary care center. Hospitalist came andevaluated patient, patient would like to remain full code and therefore we will try to transfer her to [facility] where her oncologist is located. Patient having decreased blood pressure again. Will get chest x-ray before giving fluids to make sure that patient is not fluid overloaded. Chest x-ray was personally viewed interpreted by me, ED physician. Patient's pneumonia and cancer is visualized. No large effusion. No vascular congestion. Patient willbe given another NS bolus. I spoke to the [facility] transfer line as well as the [facility] tray drier operator, Dr. Mcguire. Patient was accepted for transfer but will be placed on a wait list. Likely will not be transferred in the next 24 hours. Recommend her to be admitted to our hospital with treatment. I talked to Dr. Hassan. She confirmed understand the plan. She accepted admission. I did inform her that Dr. Mcguire states states to call their team in the morning to give them updates. She confirmed understanding of the plan. Patient was updated of the plan as well. [facility] renal insufficiency is new therefore it is an SABA EKG: Interpreted by me/EM physician: EKG shows sinus tachycardia with occasional PVCs. There is multiple artifact on the EKG. Heart rate 101. 45 minutes of critical care time utilized in managing the patient. This is due to high probability of and deterioration of the patient based on the patient's condition and excludes any separately billable procedures. Impression: 1. Acute hypoxic respiratory failure requiring BiPAP 2. Sepsis secondary to right-sided pneumonia 3. Stage IV lung cancer 4. SABA 5. Lactic acidosis 6. Elevated troponin, likely secondary to type II demand 7. Hypokalemia 4. Elevated BNP Lab Data Labs: Laboratory Results - last 24 hr 04/27/25 04/27/25 04/27/25 14:45 16:00 16:45 WBC 21.5 H RBC 4.44 Hgb 12.5 Hct 37.4 MCV 84.2 MCH 28.2 MCHC 33.4 RDW Std Deviation 49.6 H RDW Coeff of Keven 16.1 H Plt Count 163 MPV 10.9 Immature Gran % (Auto) 1.800 H Neut % (Auto) 88.0 H Lymph % (Auto) 3.2 L Grimes % (Auto) 6.1 Eos % (Auto) 0.7 Baso % (Auto) 0.2 Absolute Neuts (auto) 18.9 H Absolute Lymphs (auto) 0.69 L Nucleated RBC % 0 PT Cancelled 16.6 H INR Cancelled 1.3 APTT Cancelled 23.3 L Sodium 132 L Potassium 2.6 L* Chloride 89 L Carbon Dioxide 24.7 Anion Gap 18 H BUN 53 H Creatinine 1.63 H Estim Creat Clear Calc 32.54 L Est GFR (MDRD) Non-Af 35 L BUN/Creatinine Ratio 32.3 H Glucose 139 H Lactic Acid 2.3 H* Calcium 11.4 H Magnesium 2.3 H Total Bilirubin 0.89 AST 28 ALT 44 H Alkaline Phosphatase 187 H Troponin T High Sens 39 H Troponin T Hi Sens 2 Hr 34 H NT pro BNP II 1615 H Total Protein 7.7 Albumin 3.5 Globulin 4.2 Albumin/Globulin Ratio 0.8 L Urine Color Urine Clarity Urine pH Ur Specific Post Urine Protein Urine Glucose (UA) Urine Ketones Urine Occult Blood Urine Nitrite Urine Bilirubin Urine Urobilinogen Ur Leukocyte Esterase Urine RBC Urine WBC Ur Squamous Epith Cells Urine Bacteria Urine Mucus 04/27/25 18:35 WBC RBC Hgb Hct MCV MCH MCHC RDW Std Deviation RDW Coeff of Keven Plt Count MPV Immature Gran % (Auto) Neut % (Auto) Lymph % (Auto) Grimes % (Auto) Eos % (Auto) Baso % (Auto) Absolute Neuts (auto) Absolute Lymphs (auto) Nucleated RBC % PT INR APTT Sodium Potassium Chloride Carbon Dioxide Anion Gap BUN Creatinine Estim Creat Clear Calc Est GFR (MDRD) Non-Af BUN/Creatinine Ratio Glucose Lactic Acid Calcium Magnesium Total Bilirubin AST ALT Alkaline Phosphatase Troponin T High Sens Troponin T Hi Sens 2 Hr NT pro BNP II Total Protein Albumin Globulin Albumin/Globulin Ratio Urine Color Straw Urine Clarity Clear Urine pH 7.0 Ur Specific Post 1.005 Urine Protein 30 H Urine Glucose (UA) Normal Urine Ketones Negative Urine Occult Blood 10 H Urine Nitrite Negative Urine Bilirubin Negative Urine Urobilinogen Normal Ur Leukocyte Esterase Negative Urine RBC 0-5 SEEN Urine WBC 0-5 SEEN Ur Squamous Epith Cells 0-5 SEEN Urine Bacteria 0 SEEN Urine Mucus 0 SEEN ABG Data ABG results: ABG 04/27/25 15:25 Specimen Type ART Sample Site L Radial pH 7.49 H Bicarbonate Actual 27.2 H Total CO2 28 Base Excess 4 H O2 Saturation 97 O2 % 2.0 ABG pCO2 35.3 ABG pO2 87 Arie Test Positive O2 Delivery Device Cannula Vent Mode Not entered Radiography Diagnostic Testing: Clinical Impression(s) from Imaging Studies Chest CTA 04/27/25 15:41 IMPRESSION: 1. No pulmonary embolus. However, significant mediastinal lymphadenopathy is identified with the main pulmonary arteries being encased causing mass effect, greater on the right. This is concerning for neoplastic process. 2. Partial consolidation and ground-glass attenuation of the right lower lobe, likely pneumonia. Partial consolidation of the right middle lobe. Reading Location: [facility] Chest X-Ray 04/27/25 18:41 IMPRESSION: Right lower lobe pneumonia. Right upper lobe/hilar opacity may also reflect consolidation/neoplastic process. Reading Location: [facility] Discharge Plan Triage Chief Complaint: Shortness of Breath ED Provider: Yaya Arndt Dx/Rx/DC Orders Prescriptions: No Action fluticasone propionate [Flonase Allergy Relief] 50 mcg/actuation spray,suspension 2 spray INTRANASAL DAILY PRN (Reason: allergy symptoms) Rx Instructions: administer into each nostril cyclobenzaprine 10 mg tablet 10 mg PO BID PRN (Reason: pain) Patient Comments: TAKE 1/2 (ONE-HALF) TO 1 (ONE) TABLET BY MOUTH THREE TIMES DAILY NEEDED FOR MUSCLE SPASMS rosuvastatin 40 mg tablet 40 mg PO DAILY potassium chloride 20 mEq packet 20 meq PO BID Patient Comments: TAKE 1 PACKET BY MOUTH TWICE DAILY hydrochlorothiazide 25 mg tablet 25 mg PO DAILY Qty: 90 3RF verapamil 120 mg capsule,ext rel. pellets 24 hr 120 mg PO DAILY Qty: 90 3RF folic acid 1 mg tablet 1 mg PO QDAY furosemide 20 mg tablet 20 - 40 mg PO QDAY PRN (Reason: edema) ibuprofen 800 mg tablet 800 mg PO Q8H PRN (Reason: pain) benzonatate 100 mg capsule 200 mg PO TID PRN (Reason: cough) fluticasone propion-salmeterol [Advair Diskus] 500-50 mcg/dose blister with device 1 ea inhalation BID Incruse Ellipta 62.5 mcg/actuation blister with device 1 inh inhalation QDAY multivitamin with folic acid [Daily-Nettie (with folic acid)] 400 mcg tablet 1 tab PO QDAY losartan 25 mg tablet 25 mg PO QDAY albuterol sulfate 2.5 mg /3 mL (0.083 %) solution for nebulization 2.5 mg continuous nebulization Q6 PRN (Reason: wheezing) esomeprazole magnesium 20 mg capsule,delayed release(DR/EC) 20 mg PO QAM sennosides [Natural Senna Laxative] 8.6 mg tablet 17.2 mg PO BID oxycodone-acetaminophen 10-325 mg tablet 1 tab PO Q4 PRN (Reason: pain) albuterol sulfate 18 GM HFA aerosol inhaler 2 puff inhalation PRN PRN (Reason: Shortness Of Breath) Patient Comments: prednisone 10 mg tablet See Rx Instructions PO .COMPLEX Rx Instructions: TAKE 4 TABLETS BY MOUTH ONCE DAILY for 3 days, then 3 tablets for 3 days, then 2 tablets for 3 days, then 1 tablet for 3 days; TAPER prochlorperazine maleate 10 mg tablet 10 mg PO Q6H PRN levofloxacin 500 mg tablet 500 mg PO DAILY celecoxib 100 mg capsule 100 mg PO Q24H aspirin 81 mg tablet,delayed release (DR/EC) 81 mg PO DAILY@0800 Qty: 90 3RF Primary Care Provider: Fiona Durant Referrals: Fiona Durant MD [Primary Care Provider] - Print Language: Indian What to do if you have Problems For any increased pain, shortness of breath, bleeding, nausea or vomiting, chestpain, or any unexpected problems, contact your Primary Care Provider. Call [facility] ([phone]) or report to the closest Emergency Room. Call 911 if necessary. 04/27/251938 <Electronically signed by Yaya Arndt DO> Cosigner Signature (if applicable): CC: Dr. Fiona Durant MD ~ Signed [facility] Work Phone: [phone] 881-322507-21-2025 Progress note [facility] Medical Records Department [address] [place] [address] Progress Note - Hospitalist 04/27/252130 MR#: [id number] Acct: [id number] Name: LATA SMITH Rep #:[id number] : 1960 64 From: Ilana Hassan MD PCP: Dr. Fiona Durant MD Status:AD M IN Location: ICU ICU04-1 Hospitalist Note BP has improved to 99/52 thus far, is responding to fluids, further fluids ordered. Remains 99% on 30 L/min BiPAP without any documented worsening respiratory status with the additional fluids Patient excepted on wait list at [facility] MICU by Dr. Mcguire, was advised patient would not be going overnight and asked that we call tomorrow with updates so patient can be retriaged if necessary. If patientoverall stabilizes and does well may be able to cancel transfer [facility] ther pending clinical status 04/27/252132 Cosigner Signature (if applicable): CC: ~ Signed [facility]07-21-2025 History and physical note [facility] Medical Records Department [address] [place] [address] H&P Exam - Hospitalist 04/27/25 1805 MR#: [id number] Acct: [id number] Name: LATA SMITH Rep #:[id number] : 1960 64 From: Ilana Hassan MD PCP: Dr. Fiona Durant MD Status:AD M IN Location: ICU ICU-1 HPI - General General Date of Admission: 04/27/25 Date of Service: 04/27/25 Chief Complaint: SOB and cough HPI Narrative LATA SMITH, is a 64-year-old female history of stage IV lung cancer with metsto the bone, COPD, coronary artery disease, hypertension, migraines presented [facility] ED 04/27/2025 due to shortness of breath and cough. Last chemotherapy 1.5 months ago with no radiation, no port. Noted for the past3 weeks she has had increased shortness of breath and productive cough. On arrival temp 97.9, heart rate 96, BP 70/40, RR 38, and pulse ox 91% on RA. Repeat blood pressure was 94/56, respiratory rate 26 and 99% on 2 L nasal cannula. CBC with a white blood cell count of 21.5. BMP witha sodium of 132, potassium 2.6, bicarb 24.7, anion gap of 18 with a BUN of 53 and a creatinine of1.63. Calcium of 11.4. Lactic acid 2.3. proBNP of 1615 and troponin of 39. CTA of chest with significant mediastinal lymphadenopathy with the main pulmonary arteries being encased causing mass effect greater on the right with concern for neoplastic process as well as partial consolidation and groundglass attenuation of the right lower lobe which is likely pneumonia and partial consolidation of rightmiddle lobe. Patient given IV fluids and antibiotics andwas placed on BiPAP due to increased work of breathing. Hospitalist contacted for admission. Reviewed imaging and discussed with pulmonology, patient still full code and wants to continue with aggressive management and given the mass effect onthe pulmonary artery and possible mass causing collapse of lung it wasadvised that patient be transferred to [facility] if she did indeed want to continue to be aggressive in management in the event she would continue to deteriorate. Patient evaluated with son and other family members at bedside. She confirms that she has stage IV cancer and reportedly they recently found another cancer that is more aggressive and there is a plan to start new chemo when she was feeling better but has not yet started due to her increasing shortness of breath and cough. She denies any chest pain at home or fevers. Has a little bit of swelling in her feet which is new and son reports she had significant difficulty ambulating even short distances prior to coming in due toshortness of breath and she alsohas not been able to lay flat and has been sleeping sitting up so she has had very poor sleep. Discussed imaging findings and current status with patient and family members, again patient and family confirm that patient is full code and wants to continue to be aggressive with management. Given this discussed potential transfer and patient and family agreeable. Discussed that she may stabilize andnot need to undergo any acute intervention or intervention may not be offered but given she wants to continue aggressive management in light of her CT findings and mass effect on pulmonary artery it would be reasonable to be at a higher level of care. Discussed with ED physician who called [facility], she spoke with Dr. Mcguire in the MICU who said she will be put on the wait list and can be admitted to our hospital in the meantime and advised we call tomorrow with updates for further triaging purposes. Presently patient reports she is beginning to feel better, resting more comfortablyon BiPAP and denies any lightheadedness or other new complaints REPLACED BY [facility] Medical History (Updated 04/27/25 @ 21:[address] Ilana Hassan MD) Arteriosclerosis of coronary artery in patient with history of myocardial infarction Asthma COPD (chronic obstructive pulmonary disease) Essential hypertension History of ST elevation myocardial infarction (STEMI) (10/09/19) Hyperlipidemia Left ventricular hypertrophy Metastatic lung carcinoma Tobacco abuse Home Medications ?Medication ?Instructions ?Recorded ?Last Taken ?Type albuterol sulfate 90 mcg/actuation 2 puff inhalation P RN PRN 03/04/14 02/17/15 18:30 History aerosol inhaler Shortness Of Breath 2 PUFF fluticasone propionate 50 2 spray intranasal DAILY PRN 07/05/20 Unknown History mcg/actuation nasal allergy symptoms spray,suspension (Flonase Allergy Relief) cyclobenzaprine 10 mg tablet 10 mg PO BID PRN pain 04/28 Unknown History rosuvastatin 40 mg tablet 40 mg PO DAILY 01/12/22 Unkn own History aspirin 81 mg tablet,delayed 81 mg PO DAILY@0800 #90 t abs 01/12/23 04/26/25 Rx release hydrochlorothiazide 25 mg tablet 25 mg PO DAILY #90 ta bs 05/08/24 04/26/25 Rx verapamil 120 mg 24 hr 120 mg PO DAILY #90 caps 10/3104/26/25 Rx capsule,extended release albuterol sulfate 2.5 mg/3 mL 2.5 mg continuous nebuli zation Q6 01/29/25 Unknown History (0.083 %) solution for nebulization PRN wheezing benzonatate 100 mg capsule 200 mg PO TID PRN cough Unknown History esomeprazole magnesium 20 mg 20 mg PO QAM 01/29/25 Unk nown History capsule,delayed release fluticasone 500 mcg-salmeterol 50 1 ea inhalation BID 01/29/25 Unknown History mcg/dose blistr powdr for inhalation (Advair Diskus) folic acid 1 mg tablet 1 mg PO QDAY 01/29/25 Unknow n History furosemide 20 mg tablet 20 - 40 mg PO QDAY PRN edema 01/29/25 Unknown History ibuprofen 800 mg tablet 800 mg PO Q8H PRN pain 01/29 Unknown History losartan 25 mg tablet 25 mg PO QDAY 01/29/25 Unkno wn History multivitamin with folic acid 400 1 tab PO QDAY 5 Unknown History mcg tablet (Daily-Nettie (with folic acid)) oxycodone-acetaminophen 10 mg-325 1 tab PO Q4 PRN pain 01/29/25 Unknown History mg tablet potassium chloride 20 mEq oral 20 meq PO BID 01/29/25 Unknown History packet sennosides 8.6 mg tablet (Natural 17.2 mg PO BID 01/29 Unknown History Senna Laxative) umeclidinium 62.5 mcg/actuation 1 inh inhalation QDAY 01/29/25 Unknown History blister powder for inhalation (Incruse Ellipta) celecoxib 100 mg capsule 100 mg PO Q24H 04/27/25 Unkn own History levofloxacin 500 mg tablet 500 mg PO DAILY 04/27/25 History prednisone 10 mg tablet See Rx Instructions PO .COMP RENATO 04/27/25 04/26/25 History prochlorperazine maleate 10 mg 10 mg PO Q6H PRN Unknown History tablet Allergy/AdvReac Type Severity Reaction Status Date / Time Penicillins Allergy Intermediate Hives Verified 04/27/25 14:18 amoxicillin trihydrate (From Allergy Hives Verified 04/27/25 14:18 Augmentin) potassium clavulanate (From Allergy Hives Verified 04/27/25 14:18 Augmentin) Family History Brother Cancer lung Surgical History History of appendectomy History of carpal tunnel release of both wrists History of cholecystectomy History of coronary artery stent placement (10/09/19) History of hysterectomy S/P trigger finger release Social History (Updated 01/29/25 @ 14:12 by Nel Delgado) Smoking Status: Current every day smoker tobacco type: cigarettes quit status: quit date established alcohol intake: never substance use type: marijuana caffeine: No ROS ROS Narrative General: Denies fever/chills at home HENT: Denies headache, denies sore throat EYES: Denies changes in vision Resp: Has had increased productive cough and shortness of breath Cardiac: Denies chest pain GI: Denies abdominal pain, denies changes in bowel, denies nausea/vomiting : Denies changes in urination Extremity: Does have some swelling in legs MSK: Some generalized weakness Neuro: Denies any numbness/tingling Heme: Denies any bleeding or bruising Skin: Denies rashes Psychiatric: No complaints voiced Vital Signs Vital Signs Vital Signs: 04/27/25 14:18 04/27/25 14:21 04/27/25 14:21 Temperature 97.9 F 98.5 F Temperature Source Oral Oral Pulse Rate 96 93 Respiratory Rate 38 H 26 H Respiratory Depth Shallow Respiratory Pattern Tachypnea Blood Pressure 70/40 L 94/56 L Blood Pressure Mean 50 68 Pulse Ox 91 99 Oxygen Delivery Method Room Air Room Air Nasal Cannula Oxygen Flow Rate (L/min) 2 Fraction of Inspired Oxygen (FIO2) 04/27/25 14:32 04/27/25 14:40 04/27/25 14:48 Temperature 98.8 F Temperature Source Oral Pulse Rate 90 87 Respiratory Rate 24 H 26 H Respiratory Depth Respiratory Pattern Tachypnea Blood Pressure 78/51 L Blood Pressure Mean 60 Pulse Ox 98 97 Oxygen Delivery Method Nasal Cannula Nasal Cannula Oxygen Flow Rate (L/min) 2 2 Fraction of Inspired Oxygen (FIO2) 04/27/25 15:18 04/27/25 15:21 04/27/25 16:00 Temperature 98.7 F 97.8 F 97.8 F Temperature Source Oral Oral Oral Pulse Rate 87 90 84 Respiratory Rate 23 H 22 H 21 H Respiratory Depth Respiratory Pattern Blood Pressure 71/43 L 90/42 L 95/51 L Blood Pressure Mean 52 58 65 Pulse Ox 98 95 95 Oxygen Delivery Method Nasal Cannula Nasal Cannula Nasal Cannula Oxygen Flow Rate (L/min) 2 2 2 Fraction of Inspired Oxygen (FIO2) 04/27/25 16:32 04/27/25 16:48 04/27/25 17:00 Temperature 98.9 F 98.1 F Temperature Source Oral Temporal Pulse Rate 98 97 95 Respiratory Rate 26 H 24 H 25 H Respiratory Depth Respiratory Pattern Tachypnea Blood Pressure 94/56 L 109/47 L Blood Pressure Mean 68 67 Pulse Ox 92 96 100 Oxygen Delivery Method Nasal Cannula Bi-pap Oxygen Flow Rate (L/min) 4 Fraction of Inspired Oxygen (FIO2) 50 04/27/25 17:56 04/27/25 18:03 04/27/25 18:23 Temperature 97.8 F 98.2 F Temperature Source Temporal Temporal Pulse Rate 87 88 88 Respiratory Rate 24 H 24 H 24 H Respiratory Depth Respiratory Pattern Blood Pressure 74/44 L 82/51 L Blood Pressure Mean 54 61 Pulse Ox 99 88 99 Oxygen Delivery Method Bi-pap Bi-pap Oxygen Flow Rate (L/min) Fraction of Inspired Oxygen (FIO2) 30 30 04/27/25 18:30 04/27/25 18:45 04/27/25 18:46 Temperature Temperature Source Pulse Rate 88 Respiratory Rate 17 Respiratory Depth Respiratory Pattern Blood Pressure 97/68 96/70 Blood Pressure Mean 76 80 Pulse Ox 99 Oxygen Delivery Method Oxygen Flow Rate (L/min) Fraction of Inspired Oxygen (FIO2) 04/27/25 19:00 04/27/25 19:01 04/27/25 19:15 Temperature Temperature Source Pulse Rate 85 Respiratory Rate 21 H Respiratory Depth Respiratory Pattern Blood Pressure 90/78 74/33 L Blood Pressure Mean 85 40 Pulse Ox 98 97 Oxygen Delivery Method Oxygen Flow Rate (L/min) Fraction of Inspired Oxygen (FIO2) 04/27/25 19:21 04/27/25 19:30 04/27/25 19:45 Temperature Temperature Source Pulse Rate 86 85 83 Respiratory Rate 23 H 23 H 22 H Respiratory Depth Respiratory Pattern Blood Pressure 73/56 L 85/48 L 81/51 L Blood Pressure Mean 63 57 61 Pulse Ox 97 97 97 Oxygen Delivery Method Oxygen Flow Rate (L/min) Fraction of Inspired Oxygen (FIO2) Weight Weight: 77.61 kg Body Mass Index (BMI) 33.4 Physical Exam Narrative General: Alert, oriented HEENT: Atraumatic, normocephalic Eyes: Anicteric, normal conjunctiva, extraocular movements grossly intact Neck: Supple Respiratory: Increased respiratory effort, coarse on the right side greater thanleft with diffuse wheezing Cardiovascular: Regular rate and rhythm GI: Soft, nontender, nondistended Extremities: Trace lower extremity edema Musculoskeletal: Moving all extremities Neuro: No overt focal neurological deficits Skin: No rashes appreciated Psych: Cooperative Results Lab / Micro Data 04/27/25 14:45 04/27/25 14:45 Labs: Laboratory Results - last 24 hr 04/27/25 14:45: WBC 21.5 H, RBC 4.44, Hgb 12.5, Hct 37.4, MCV 84.2, MCH 28.2, MCHC 33.4, RDW Std Deviation 49.6 H, RDW Coeff of Keven 16.1 H, Plt Count 163, MPV10.9, Immature Gran % (Auto) 1.800 H, Neut % (Auto) 88.0 H, Lymph % (Auto) 3.2 L, Grimes % (Auto) 6.1, Eos % (Auto) 0.7, Baso % (Auto) 0.2, Absolute Neuts (auto) 18.9 H, Absolute Lymphs (auto) 0.69 L, Nucleated RBC % 0, PT Cancelled, INR Cancelled, APTT Cancelled, Sodium 132 L, Potassium 2.6 L*, Chloride 89 L, CarbonDioxide 24.7, Anion Gap 18 H, BUN 53 H, Creatinine 1.63 H, Estim Creat Clear Calc 32.54 L, Est GFR (MDRD) Non-Af 35 L, BUN/Creatinine Ratio 32.3 H, Glucose 139 H, Lactic Acid 2.3 H*, Calcium 11.4 H, Magnesium 2.3 H, Total Bili cárdenas 0.89, AST 28, ALT 44 H, Alkaline Phosphatase 187 H, Troponin T High Sens 39 H, NT pro BNP II 1615 H, Total Protein 7.7, Albumin 3.5, Globulin 4.2, Albumin/Globulin Ratio 0.8 L 04/27/25 16:00: PT 16.6 H, INR 1.3, APTT 23.3 L 04/27/25 16:45: Troponin T Hi Sens 2 Hr 34 H 04/27/25 18:35: Urine Color Straw, Urine Clarity Clear, Urine pH 7.0, Ur Specific Post 1.005, Urine Protein 30 H, Urine Glucose (UA) Normal, Urine Ketones Negative, Urine Occult Blood 10 H, Urine Nitrite Negative, Urine Bilirubin Negative, Urine Urobilinogen Normal, Ur Leukocyte Esterase Negative, Urine RBC 0-5 SEEN, Urine WBC 0-5 SEEN, Ur Squamous Epith Cells 0-5 SEEN, Urine Bacteria 0 SEEN, Urine Mucus 0 SEEN 04/27/25 18:45: Troponin T Hi Sens 4Hr 33 H Micro: Microbiology 04/27/25 14:45 Mucosa - Nose SARS-CoV-2, Influenza & RSV (PCR) - Final ABG Data ABG results: ABG 04/27/25 15:25 Specimen Type ART Sample Site L Radial pH 7.49 H Bicarbonate Actual 27.2 H Total CO2 28 Base Excess 4 H O2 Saturation 97 O2 % 2.0 ABG pCO2 35.3 ABG pO2 87 Arie Test Positive O2 Delivery Device Cannula Vent Mode Not entered Imaging Radiology Impression Chest CTA 04/27/25 15:41 IMPRESSION: 1. No pulmonary embolus. However, significant mediastinal lymphadenopathy is identified with the main pulmonary arteries being encased causing mass effect, greater on the right. This is concerning for neoplastic process. 2. Partial consolidation and ground-glass attenuation of the right lower lobe, likely pneumonia. Partial consolidation of the right middle lobe. Reading Location: [id number] Chest X-Ray 04/27/25 18:41 IMPRESSION: Right lower lobe pneumonia. Right upper lobe/hilar opacity may also reflect consolidation/neoplastic process. Reading Location: [id number] Assessment & Plan Assessment/Plan (1) Sepsis: (2) Pneumonia: (3) Metastatic lung carcinoma: PLAN: Plan # Sepsis secondary to right lower lobe pneumonia -Patient presented with blood pressure of 70/40 and a respiratory rate of 38 andhas had progressiverespiratory failure necessitating BiPAP. WBC 21.5 and patient with an elevated lactic of 2.3 and new SABA with a creatinine of 1.63. -Blood culture sent -Patient given less than the 30 cc/kg of IV fluids due to respiratory distress, initially given 1 L, presently receiving a second liter -Imaging: CTA of chest with significant mediastinal lymphadenopathy with the main pulmonary arteries being encased causing mass effect greater on the right with concern for neoplastic process as wellas partial consolidation and groundglass attenuation of the right lower lobe which is likely pneumonia and partial consolidation of right middle lobe -DuoNebs and as needed albuterol -Sputum culture, COVID negative, respiratory panel ordered -Urine antigens -Mucinex, I/S - Covering broadly given patient's presentation with vancomycin and cefepime - Additionally patient does have wheezing and seems to have component of COPD aswell so we will continue Methylpred - Also of note blood pressure initially had been improving with IV fluids, she was only given a liter as she ended up on BiPAP for work of breathing, blood pressure then began to downtrend again the patient completely asymptomatic and actually reported feeling better, chest x-ray did not show fluidoverload and patient appeared much more comfortable so she is receiving second liter, blood pressure on my reevaluation was up to 88 systolic from the 70s/is improving. Will give patient maintenance fluid after that liter - Patient on multiple antihypertensives, these have all been held #Stage IV lung cancer with metastasis to bone -Last chemo 1.5 months ago - Reportedly patient recently had new cancer found as well that is more aggressive and she is post to begin chemotherapy but had not yet been able to doso -CT scan findings as above, patient does have mass effect on pulmonary artery, unclear if this could be affecting blood pressure and patient family also reports she was told during her last bronc that the tumor did seem to be obstructing her lung to some extent so she may have postobstructive pneumonia -Pulmonology consulted # Acute hypoxic respiratory failure -Worsened respiratory status and decreasing O2 with increased work of breathing necessitating BiPAP -Treat underlying pneumonia and sepsis -Unclear how much of this is directly related to her cancer versus pneumonia, will be treating her pneumonia and patient presently on wait list for [facility], if she stabilizes she would not necessitate transfer but presently remains on BiPAP due to her respiratory distress #SABA - BUN of 53 and creatinine 1.63, baseline appears to be about 0.85 -Treat underlying etiology, blood pressure support -She did receive some IV fluids however that seemed to worsen respiratory statusinitially but respiratory status stabilized and repeat x-ray does not appear overloaded so patient be given further fluids # Elevated troponin -Troponin of 39 -May be due to hypotension and sepsis -No chest pain #Hypokalemia -Replace - Will order repeat when this is completed - Hold home hydrochlorothiazide #Hypercalcemia - Calcium 11.4 - Receiving IV fluids -This may be hypercalcemia of malignancy given her lung cancer -Patient will have repeat blood work #Hx COPD -Nebs, steroids -Incentive spirometer #Hx of CAD -w/ previous STEMI and stenting -Continue home medications #GERD -Continue PPI #Hypertension - Patient came in hypotensive, hold home antihypertensives #DVT ppx: SCDs Ilnaa Hassan MD Time spent in the patient's overall evaluation, decision-making process, review of diagnostic data,adjustment of management, discussion with other providers, nursing and ancillary staff involved in patient's care documentation, 100 Minutes Sepsis Attestation Sepsis Alert: Yes Sepsis Attestation: Agree w/Sepsis Date exam was performed: 04/27/25 Time exam was performed: 18:30 Possible Source of Sepsis: Pulmonary Sepsis Organ Dysfunction Criteria Present: SBP < 90 mmHg or MAP < 65 mmHg, AcuteRespiratory Failure (New need for BiPAP/CPAP or MV) and Lactic Acid > 2 mmol/L Fluid Resuscitation Fluid resuscitation indicated?: Yes Fluid Resuscitation ordered: Lesser volume fluid bolus ordered Amount of fluid ordered: 1,000 Reason for lesser fluid bolus:: Concern for fluid overload Sepsis Note Date exam was performed: 04/27/25 Time exam was performed: 20:00 Sepsis Attestation: Sepsis re-evaluation was performed Response to fluids: Non Fluid responsive hypotension (Blood pressure has vacillated widely, initially responded but subsequently down trended again so patient now receiving second liter bolus with blood pressure beginning to improve) Charges/Coding Visit Charges Inpatient E&M: 58746 Init Hosp 04/27/252123 Cosigner Signature (if applicable): CC: Dr. Fiona Durant MD; Dr. Ilana Hassan MD~ Signed [facility]07-21-2025 History and physical note Author Ilana Hassan [facility] Note Date/Time April 27, 2025 9:24 pm [facility] Medical Records Department [address] [place] [address] H&P Exam - Hospitalist 04/27/25 1805 MR#: [id number] Acct: [id number] Name: LATA SMITH Rep #:[id number] : 1960 64 From: Ilana Hassan MD PCP: Dr. Fiona Durant MD Status:AD M IN Location: ICU ICU04-1 HPI - General General Date of Admission: 04/27/25 Date of Service: 04/27/25 Chief Complaint: SOB and cough HPI Narrative LATA SMITH, is a 64-year-old female history of stage IV lung cancer with metsto the bone, COPD, coronary artery disease, hypertension, migraines presented [facility] ED 04/27/2025 due to shortness of breath and cough. Last chemotherapy 1.5 months ago with no radiation, no port. Noted for the past3 weeks she has had increased shortness of breath and productive cough. On arrival temp 97.9, heart rate 96, BP 70/40, RR 38, and pulse ox 91% on RA. Repeat blood pressure was 94/56, respiratory rate 26 and 99% on 2 L nasal cannula. CBC with a white blood cell count of 21.5. BMP with a sodium of 132, potassium 2.6, bicarb 24.7, anion gap of 18 with a BUN of 53 and a creatinine of1.63. Calcium of 11.4. Lactic acid 2.3. proBNP of 1615 and troponin of 39. CTA of chest with significant mediastinal lymphadenopathy with the main pulmonary arteries being encased causing mass effect greater on the right with concern for neoplastic process as well as partial consolidation and groundglass attenuation of the right lower lobe which is likely pneumonia and partial consolidation of right middle lobe. Patient given IV fluids and antibiotics andwas placed on BiPAP due to increased work of breathing. Hospitalist contacted for admission. Reviewed imaging and discussed with pulmonology, patient still full code and wants to continue with aggressive management and given the mass effect on the pulmonary artery and possible mass causing collapse of lung it wasadvised that patient be transferred to [facility] if she did indeed want to continue to be aggressive in management in the event she would continue to deteriorate. Patient evaluated with son and other family members at bedside. She confirms that she has stage IV cancer and reportedly they recently found another cancer that is more aggressive and there is a plan to start new chemo when she was feeling better but has not yet started due to her increasing shortness of breath and cough. She denies any chest pain at home or fevers. Has a little bit of swelling in her feet which is new and son reports she had significant difficulty ambulating even short distances prior to coming in due toshortness of breath and she also has not been able to lay flat and has been sleeping sitting up so she has had very poor sleep. Discussed imaging findings and current status with patient and family members, again patient and family confirm that patient is full code and wants to continue to be aggressive with management. Given this discussed potential transfer and patient and family agreeable. Discussed that she may stabilize and not need to undergo any acute intervention or intervention may not be offered but given she wants to continue aggressive management in light of her CT findings and mass effect on pulmonary artery it would be reasonable to be at a higher level of care. Discussed with ED physician who called [facility], she spoke with Dr. Mcguire in the MICU who said she will be put on the wait list and can be admitted to our hospital in the meantime and advised we call tomorrow with updates for further triaging purposes. Presently patient reports she is beginning to feel better, resting more comfortably on BiPAP and denies any lightheadedness or other new complaints REPLACED BY [facility] Medical History (Updated 04/27/25 @ 21:[address] Ilana Hassan MD) Arteriosclerosis of coronary artery in patient with history of myocardial infarction Asthma COPD (chronic obstructive pulmonary disease) Essential hypertension History of ST elevation myocardial infarction (STEMI) (10/09/19) Hyperlipidemia Left ventricular hypertrophy Metastatic lung carcinoma Tobacco abuse Home Medications ?Medication ?Instructions ?Recorded ?Last Taken ?Type albuterol sulfate 90 mcg/actuation 2 puff inhalation P RN PRN 03/04/14 02/17/15 18:30 History aerosol inhaler Shortness Of Breath 2 PUFF fluticasone propionate 50 2 spray intranasal DAILY PRN 07/05/20 Unknown History mcg/actuation nasal allergy symptoms spray,suspension (Flonase Allergy Relief) cyclobenzaprine 10 mg tablet 10 mg PO BID PRN pain 04/28 Unknown History rosuvastatin 40 mg tablet 40 mg PO DAILY 01/12/22 Unkn own History aspirin 81 mg tablet,delayed 81 mg PO DAILY@0800 #90 t abs 01/12/23 04/26/25 Rx release hydrochlorothiazide 25 mg tablet 25 mg PO DAILY #90 ta bs 05/08/24 04/26/25 Rx verapamil 120 mg 24 hr 120 mg PO DAILY #90 caps 10/3104/26/25 Rx capsule,extended release albuterol sulfate 2.5 mg/3 mL 2.5 mg continuous nebuli zation Q6 01/29/25 Unknown History (0.083 %) solution for nebulization PRN wheezing benzonatate 100 mg capsule 200 mg PO TID PRN cough Unknown History esomeprazole magnesium 20 mg 20 mg PO QAM 01/29/25 Unk nown History capsule,delayed release fluticasone 500 mcg-salmeterol 50 1 ea inhalation BID 01/29/25 Unknown History mcg/dose blistr powdr for inhalation (Advair Diskus) folic acid 1 mg tablet 1 mg PO QDAY 01/29/25 Unknow n History furosemide 20 mg tablet 20 - 40 mg PO QDAY PRN edema 01/29/25 Unknown History ibuprofen 800 mg tablet 800 mg PO Q8H PRN pain 01/29 Unknown History losartan 25 mg tablet 25 mg PO QDAY 01/29/25 Unkno wn History multivitamin with folic acid 400 1 tab PO QDAY 5 Unknown History mcg tablet (Daily-Nettie (with folic acid)) oxycodone-acetaminophen 10 mg-325 1 tab PO Q4 PRN pain 01/29/25 Unknown History mg tablet potassium chloride 20 mEq oral 20 meq PO BID 01/29/25 Unknown History packet sennosides 8.6 mg tablet (Natural 17.2 mg PO BID 01/29 Unknown History Senna Laxative) umeclidinium 62.5 mcg/actuation 1 inh inhalation QDAY 01/29/25 Unknown History blister powder for inhalation (Incruse Ellipta) celecoxib 100 mg capsule 100 mg PO Q24H 04/27/25 Unkn own History levofloxacin 500 mg tablet 500 mg PO DAILY 04/27/25 History prednisone 10 mg tablet See Rx Instructions PO .COMP RENATO 04/27/25 04/26/25 History prochlorperazine maleate 10 mg 10 mg PO Q6H PRN Unknown History tablet Allergy/AdvReac Type Severity Reaction Status Date / Time Penicillins Allergy Intermediate Hives Verified 04/27/25 14:18 amoxicillin trihydrate (From Allergy Hives Verified 04/27/25 14:18 Augmentin) potassium clavulanate (From Allergy Hives Verified 04/27/25 14:18 Augmentin) Family History Brother Cancer lung Surgical History History of appendectomy History of carpal tunnel release of both wrists History of cholecystectomy History of coronary artery stent placement (10/09/19) History of hysterectomy S/P trigger finger release Social History (Updated 01/29/25 @ 14:12 by Nel Delgado) Smoking Status: Current every day smoker tobacco type: cigarettes quit status: quit date established alcohol intake: never substance use type: marijuana caffeine: No ROS ROS Narrative General: Denies fever/chills at home HENT: Denies headache, denies sore throat EYES: Denies changes in vision Resp: Has had increased productive cough and shortness of breath Cardiac: Denies chest pain GI: Denies abdominal pain, denies changes in bowel, denies nausea/vomiting : Denies changes in urination Extremity: Does have some swelling in legs MSK: Some generalized weakness Neuro: Denies any numbness/tingling Heme: Denies any bleeding or bruising Skin: Denies rashes Psychiatric: No complaints voiced Vital Signs Vital Signs Vital Signs: 04/27/25 14:18 04/27/25 14:21 04/27/25 14:21 Temperature 97.9 F 98.5 F Temperature Source Oral Oral Pulse Rate 96 93 Respiratory Rate 38 H 26 H Respiratory Depth Shallow Respiratory Pattern Tachypnea Blood Pressure 70/40 L 94/56 L Blood Pressure Mean 50 68 Pulse Ox 91 99 Oxygen Delivery Method Room Air Room Air Nasal Cannula Oxygen Flow Rate (L/min) 2 Fraction of Inspired Oxygen (FIO2) 04/27/25 14:32 04/27/25 14:40 04/27/25 14:48 Temperature 98.8 F Temperature Source Oral Pulse Rate 90 87 Respiratory Rate 24 H 26 H Respiratory Depth Respiratory Pattern Tachypnea Blood Pressure 78/51 L Blood Pressure Mean 60 Pulse Ox 98 97 Oxygen Delivery Method Nasal Cannula Nasal Cannula Oxygen Flow Rate (L/min) 2 2 Fraction of Inspired Oxygen (FIO2) 04/27/25 15:18 04/27/25 15:21 04/27/25 16:00 Temperature 98.7 F 97.8 F 97.8 F Temperature Source Oral Oral Oral Pulse Rate 87 90 84 Respiratory Rate 23 H 22 H 21 H Respiratory Depth Respiratory Pattern Blood Pressure 71/43 L 90/42 L 95/51 L Blood Pressure Mean 52 58 65 Pulse Ox 98 95 95 Oxygen Delivery Method Nasal Cannula Nasal Cannula Nasal Cannula Oxygen Flow Rate (L/min) 2 2 2 Fraction of Inspired Oxygen (FIO2) 04/27/25 16:32 04/27/25 16:48 04/27/25 17:00 Temperature 98.9 F 98.1 F Temperature Source Oral Temporal Pulse Rate 98 97 95 Respiratory Rate 26 H 24 H 25 H Respiratory Depth Respiratory Pattern Tachypnea Blood Pressure 94/56 L 109/47 L Blood Pressure Mean 68 67 Pulse Ox 92 96 100 Oxygen Delivery Method Nasal Cannula Bi-pap Oxygen Flow Rate (L/min) 4 Fraction of Inspired Oxygen (FIO2) 50 04/27/25 17:56 04/27/25 18:03 04/27/25 18:23 Temperature 97.8 F 98.2 F Temperature Source Temporal Temporal Pulse Rate 87 88 88 Respiratory Rate 24 H 24 H 24 H Respiratory Depth Respiratory Pattern Blood Pressure 74/44 L 82/51 L Blood Pressure Mean 54 61 Pulse Ox 99 88 99 Oxygen Delivery Method Bi-pap Bi-pap Oxygen Flow Rate (L/min) Fraction of Inspired Oxygen (FIO2) 30 30 04/27/25 18:30 04/27/25 18:45 04/27/25 18:46 Temperature Temperature Source Pulse Rate 88 Respiratory Rate 17 Respiratory Depth Respiratory Pattern Blood Pressure 97/68 96/70 Blood Pressure Mean 76 80 Pulse Ox 99 Oxygen Delivery Method Oxygen Flow Rate (L/min) Fraction of Inspired Oxygen (FIO2) 04/27/25 19:00 04/27/25 19:01 04/27/25 19:15 Temperature Temperature Source Pulse Rate 85 Respiratory Rate 21 H Respiratory Depth Respiratory Pattern Blood Pressure 90/78 74/33 L Blood Pressure Mean 85 40 Pulse Ox 98 97 Oxygen Delivery Method Oxygen Flow Rate (L/min) Fraction of Inspired Oxygen (FIO2) 04/27/25 19:21 04/27/25 19:30 04/27/25 19:45 Temperature Temperature Source Pulse Rate 86 85 83 Respiratory Rate 23 H 23 H 22 H Respiratory Depth Respiratory Pattern Blood Pressure 73/56 L 85/48 L 81/51 L Blood Pressure Mean 63 57 61 Pulse Ox 97 97 97 Oxygen Delivery Method Oxygen Flow Rate (L/min) Fraction of Inspired Oxygen (FIO2) Weight Weight: 77.61 kg Body Mass Index (BMI) 33.4 Physical Exam Narrative General: Alert, oriented HEENT: Atraumatic, normocephalic Eyes: Anicteric, normal conjunctiva, extraocular movements grossly intact Neck: Supple Respiratory: Increased respiratory effort, coarse on the right side greater thanleft with diffuse wheezing Cardiovascular: Regular rate and rhythm GI: Soft, nontender, nondistended Extremities: Trace lower extremity edema Musculoskeletal: Moving all extremities Neuro: No overt focal neurological deficits Skin: No rashes appreciated Psych: Cooperative Results Lab / Micro Data 04/27/25 14:45 04/27/25 14:45 Labs: Laboratory Results - last 24 hr 04/27/25 14:45: WBC 21.5 H, RBC 4.44, Hgb 12.5, Hct 37.4, MCV 84.2, MCH 28.2, MCHC 33.4, RDW Std Deviation 49.6 H, RDW Coeff of Keven 16.1 H, Plt Count 163, MPV10.9, Immature Gran % (Auto) 1.800 H, Neut % (Auto) 88.0 H, Lymph % (Auto) 3.2 L, Grimes % (Auto) 6.1, Eos % (Auto) 0.7, Baso % (Auto) 0.2, Absolute Neuts (auto) 18.9 H, Absolute Lymphs (auto) 0.69 L, Nucleated RBC % 0, PT Cancelled, INR Cancelled, APTT Cancelled, Sodium 132 L, Potassium 2.6 L*, Chloride 89 L, CarbonDioxide 24.7, Anion Gap 18 H, BUN 53 H, Creatinine 1.63 H, Estim Creat Clear Calc 32.54 L, Est GFR (MDRD) Non-Af 35 L, BUN/Creatinine Ratio 32.3 H, Glucose 139 H, Lactic Acid 2.3 H*, Calcium 11.4 H, Magnesium 2.3 H, Total Bilirubin 0.89, AST 28, ALT 44 H, Alkaline Phosphatase 187 H, Troponin T High Sens 39 H, NT pro BNP II 1615 H, Total Protein 7.7, Albumin 3.5, Globulin 4.2, Albumin/Globulin Ratio 0.8 L 04/27/25 16:00: PT 16.6 H, INR 1.3, APTT 23.3 L 04/27/25 16:45: Troponin T Hi Sens 2 Hr 34 H 04/27/25 18:35: Urine Color Straw, Urine Clarity Clear, Urine pH 7.0, Ur Specific Post 1.005, Urine Protein 30 H, Urine Glucose (UA) Normal, Urine Ketones Negative, Urine Occult Blood 10 H, Urine Nitrite Negative, Urine Bilirubin Negative, Urine Urobilinogen Normal, Ur Leukocyte Esterase Negative, Urine RBC 0-5 SEEN, Urine WBC 0-5 SEEN, Ur Squamous Epith Cells 0-5 SEEN, Urine Bacteria 0 SEEN, Urine Mucus 0 SEEN 04/27/25 18:45: Troponin T Hi Sens 4Hr 33 H Micro: Microbiology 04/27/25 14:45 Mucosa - Nose SARS-CoV-2, Influenza & RSV (PCR) - Final ABG Data ABG results: ABG 04/27/25 15:25 Specimen Type ART Sample Site L Radial pH 7.49 H Bicarbonate Actual 27.2 H Total CO2 28 Base Excess 4 H O2 Saturation 97 O2 % 2.0 ABG pCO2 35.3 ABG pO2 87 Arie Test Positive O2 Delivery Device Cannula Vent Mode Not entered Imaging Radiology Impression Chest CTA 04/27/25 15:41 IMPRESSION: 1. No pulmonary embolus. However, significant mediastinal lymphadenopathy is identified with the main pulmonary arteries being encased causing mass effect, greater on the right. This is concerning for neoplastic process. 2. Partial consolidation and ground-glass attenuation of the right lower lobe, likely pneumonia. Partial consolidation of the right middle lobe. Reading Location: [id number] Chest X-Ray 04/27/25 18:41 IMPRESSION: Right lower lobe pneumonia. Right upper lobe/hilar opacity may also reflect consolidation/neoplastic process. Reading Location: [id number] Assessment & Plan Assessment/Plan (1) Sepsis: (2) Pneumonia: (3) Metastatic lung carcinoma: PLAN: Plan # Sepsis secondary to right lower lobe pneumonia -Patient presented with blood pressure of 70/40 and a respiratory rate of 38 andhas had progressive respiratory failure necessitating BiPAP. WBC 21.5 and patient with an elevated lactic of 2.3 and new SABA with a creatinine of 1.63. -Blood culture sent -Patient given less than the 30 cc/kg of IV fluids due to respiratory distress, initially given 1 L, presently receiving a second liter -Imaging: CTA of chest with significant mediastinal lymphadenopathy with the main pulmonary arteries being encased causing mass effect greater on the right with concern for neoplastic process as well as partial consolidation and groundglass attenuation of the right lower lobe which is likely pneumonia and partial consolidation of right middle lobe -DuoNebs and as needed albuterol -Sputum culture, COVID negative, respiratory panel ordered -Urine antigens -Mucinex, I/S - Covering broadly given patient's presentation with vancomycin and cefepime - Additionally patient does have wheezing and seems to have component of COPD aswell so we will continue Methylpred - Also of note blood pressure initially had been improving with IV fluids, she was only given a liter as she ended up on BiPAP for work of breathing, blood pressure then began to downtrend again the patient completely asymptomatic and actually reported feeling better, chest x-ray did not show fluid overload and patient appeared much more comfortable so she is receiving second liter, blood pressure on my reevaluation was up to 88 systolic from the 70s/is improving. Will give patient maintenance fluid after that liter - Patient on multiple antihypertensives, these have all been held #Stage IV lung cancer with metastasis to bone -Last chemo 1.5 months ago - Reportedly patient recently had new cancer found as well that is more aggressive and she is post to begin chemotherapy but had not yet been able to doso -CT scan findings as above, patient does have mass effect on pulmonary artery, unclear if this could be affecting blood pressure and patient family also reports she was told during her last bronc that the tumor did seem to be obstructing her lung to some extent so she may have postobstructive pneumonia -Pulmonology consulted # Acute hypoxic respiratory failure -Worsened respiratory status and decreasing O2 with increased work of breathing necessitating BiPAP -Treat underlying pneumonia and sepsis -Unclear how much of this is directly related to her cancer versus pneumonia, will be treating her pneumonia and patient presently on wait list for [facility], if she stabilizes she would not necessitate transfer but presently remains on BiPAP due to her respiratory distress #SABA - BUN of 53 and creatinine 1.63, baseline appears to be about 0.85 -Treat underlying etiology, blood pressure support -She did receive some IV fluids however that seemed to worsen respiratory statusinitially but respiratory status stabilized and repeat x-ray does not appear overloaded so patient be given further fluids # Elevated troponin -Troponin of 39 -May be due to hypotension and sepsis -No chest pain #Hypokalemia -Replace - Will order repeat when this is completed - Hold home hydrochlorothiazide #Hypercalcemia - Calcium 11.4 - Receiving IV fluids -This may be hypercalcemia of malignancy given her lung cancer -Patient will have repeat blood work #Hx COPD -Nebs, steroids -Incentive spirometer #Hx of CAD -w/ previous STEMI and stenting -Continue home medications #GERD -Continue PPI #Hypertension - Patient came in hypotensive, hold home antihypertensives #DVT ppx: SCDs Ilana Hassan MD Time spent in the patient's overall evaluation, decision-making process, review of diagnostic data, adjustment of management, discussion with other providers, nursing and ancillary staff involved in patient's care documentation, 100 Minutes Sepsis Attestation Sepsis Alert: Yes Sepsis Attestation: Agree w/Sepsis Date exam was performed: 04/27/25 Time exam was performed: 18:30 Possible Source of Sepsis: Pulmonary Sepsis Organ Dysfunction Criteria Present: SBP < 90 mmHg or MAP < 65 mmHg, AcuteRespiratory Failure (New need for BiPAP/CPAP or MV) and Lactic Acid > 2 mmol/L Fluid Resuscitation Fluid resuscitation indicated?: Yes Fluid Resuscitation ordered: Lesser volume fluid bolus ordered Amount of fluid ordered: 1,000 Reason for lesser fluid bolus:: Concern for fluid overload Sepsis Note Date exam was performed: 04/27/25 Time exam was performed: 20:00 Sepsis Attestation: Sepsis re-evaluation was performed Response to fluids: Non Fluid responsive hypotension (Blood pressure has vacillated widely, initially responded but subsequently down trended again so patient now receiving second liter bolus with blood pressure beginning to improve) Charges/Coding Visit Charges Inpatient E&M: 25071 Init Hosp L3 04/27/252123 <Electronically signed by Ilana Hassan MD> Cosigner Signature (if applicable): CC: Dr. Fiona Durant MD; Dr. Ilana Hassan MD~ Signed [facility] Work Phone: [phone] 238-847407-21-2025 Discharge summary [facility] Medical Records Department [address] [place] [id number] Emergency Department Summary 04/27/25 MR#: [id number] Acct: [id number] Name: LATA SMITH Rep #:[id number] : 1960 64 From: Yaya jimenez DO PCP: Dr. Fiona Durant MD Status:RE G ER Location: ED HPI History of Present Illness Chief Complaint: Shortness of Breath Narrative Narrative: Chief complaint and HPI: Shortness of breath and cough. 64-year-old female withhistory of stage IV lung cancer that is metastasized to the bone, COPD presents for evaluation of shortness of breath and cough. Patient states her last chemotherapy was 1.5 months ago. She does not receive radiation. Does not havea port. Patient states for the past 3 weeks she has been having progressive shortness of breath and productive cough. She states she called her primary care physician weeks ago stating thatshe needed steroids and antibiotics however medication was not given. She states her shortness of breath and cough has worsened. She endorses decreased appetite. She denies any fever, chills, chest pain, abdominal pain, nausea, vomiting, dysuria. Daily smoker. Not on blood thinners. Review of systems: See HPI Medications: As listed on the chart Allergies: As listed on the chart PFSH: Per chart Vital signs: As listed on the chart. Reviewed. Physical exam: Gen: A&O x3, NAD Head: Normocephalic, atraumatic Eyes: No sclera icterus, conjunctiva clear ENT: Moist mucous membranes Neck: Trachea midline, No JVD CV: RRR, no murmurs, no peripheral edema Resp: Lungs diminished in the bilateral bases, coarse, expiratory wheezing, tachypneic, 2 L nasal cannula GI: Abd soft, non-distended, non-tender, no r/r/g Musc: Full ROM, no deformity Skin: Warm, dry Neuro: Alert, oriented, grossly intact, sensation intact Psych: Cooperative, appropriate mood and affect [facility] Medical History Hyperlipidemia Left ventricular hypertrophy Essential hypertension History of ST elevation myocardial infarction (STEMI) (10/09/19) Tobacco abuse Metastatic lung carcinoma Asthma Arteriosclerosis of coronary artery in patient with history of myocardial infarction COPD (chronic obstructive pulmonary disease) Home Medications ?Medication ?Instructions ?Recorded ?Last Taken ?Type albuterol sulfate 90 mcg/actuation 2 puff inhalation P RN PRN 03/04/14 02/17/15 18:30 History aerosol inhaler Shortness Of Breath 2 PUFF fluticasone propionate 50 2 spray intranasal DAILY PRN 07/05/20 Unknown History mcg/actuation nasal allergy symptoms spray,suspension (Flonase Allergy Relief) cyclobenzaprine 10 mg tablet 10 mg PO BID PRN pain 04/28 Unknown History rosuvastatin 40 mg tablet 40 mg PO DAILY 01/12/22 Unkn own History aspirin 81 mg tablet,delayed 81 mg PO DAILY@0800 #90 t abs 01/12/23 04/26/25 Rx release hydrochlorothiazide 25 mg tablet 25 mg PO DAILY #90 ta bs 05/08/24 04/26/25 Rx verapamil 120 mg 24 hr 120 mg PO DAILY #90 caps 10/3104/26/25 Rx capsule,extended release albuterol sulfate 2.5 mg/3 mL 2.5 mg continuous nebuli zation Q6 01/29/25 Unknown History (0.083 %) solution for nebulization PRN wheezing benzonatate 100 mg capsule 200 mg PO TID PRN cough Unknown History esomeprazole magnesium 20 mg 20 mg PO QAM 01/29/25 Unk nown History capsule,delayed release fluticasone 500 mcg-salmeterol 50 1 ea inhalation BID 01/29/25 Unknown History mcg/dose blistr powdr for inhalation (Advair Diskus) folic acid 1 mg tablet 1 mg PO QDAY 01/29/25 Unknow n History furosemide 20 mg tablet 20 - 40 mg PO QDAY PRN edema 01/29/25 Unknown History ibuprofen 800 mg tablet 800 mg PO Q8H PRN pain 01/29 Unknown History losartan 25 mg tablet 25 mg PO QDAY 01/29/25 Unkno wn History multivitamin with folic acid 400 1 tab PO QDAY 5 Unknown History mcg tablet (Daily-Nettie (with folic acid)) oxycodone-acetaminophen 10 mg-325 1 tab PO Q4 PRN pain 01/29/25 Unknown History mg tablet potassium chloride 20 mEq oral 20 meq PO BID 01/29/25 Unknown History packet sennosides 8.6 mg tablet (Natural 17.2 mg PO BID 01/29 Unknown History Senna Laxative) umeclidinium 62.5 mcg/actuation 1 inh inhalation QDAY 01/29/25 Unknown History blister powder for inhalation (Incruse Ellipta) celecoxib 100 mg capsule 100 mg PO Q24H 04/27/25 Unkn own History levofloxacin 500 mg tablet 500 mg PO DAILY 04/27/25 History prednisone 10 mg tablet See Rx Instructions PO .COMP RENATO 04/27/25 04/26/25 History prochlorperazine maleate 10 mg 10 mg PO Q6H PRN Unknown History tablet Allergy/AdvReac Type Severity Reaction Status Date / Time Penicillins Allergy Intermediate Hives Verified 04/27/25 14:18 amoxicillin trihydrate (From Allergy Hives Verified 04/27/25 14:18 Augmentin) potassium clavulanate (From Allergy Hives Verified 04/27/25 14:18 Augmentin) Family History Brother Cancer lung Surgical History S/P trigger finger release History of coronary artery stent placement (10/09/19) History of cholecystectomy History of appendectomy History of carpal tunnel release of both wrists History of hysterectomy Social History (Updated 01/29/25 @ 14:12 by Nel Delgado) Smoking Status: Current every day smoker tobacco type: cigarettes quit status: quit date established alcohol intake: never substance use type: marijuana caffeine: No EXAM Physical Exam Const Vital Signs: 04/27/25 14:18 04/27/25 14:21 04/27/25 14:21 Temperature 97.9 F 98.5 F Temperature Source Oral Oral Pulse Rate 96 93 Respiratory Rate 38 H 26 H Respiratory Depth Shallow Respiratory Pattern Tachypnea Blood Pressure 70/40 L 94/56 L Blood Pressure Mean 50 68 Pulse Ox 91 99 Oxygen Delivery Method Room Air Room Air Nasal Cannula Oxygen Flow Rate (L/min) 2 Fraction of Inspired Oxygen (FIO2) 04/27/25 14:32 04/27/25 14:40 04/27/25 14:48 Temperature 98.8 F Temperature Source Oral Pulse Rate 90 87 Respiratory Rate 24 H 26 H Respiratory Depth Respiratory Pattern Tachypnea Blood Pressure 78/51 L Blood Pressure Mean 60 Pulse Ox 98 97 Oxygen Delivery Method Nasal Cannula Nasal Cannula Oxygen Flow Rate (L/min) 2 2 Fraction of Inspired Oxygen (FIO2) 04/27/25 15:18 04/27/25 15:21 04/27/25 16:00 Temperature 98.7 F 97.8 F 97.8 F Temperature Source Oral Oral Oral Pulse Rate 87 90 84 Respiratory Rate 23 H 22 H 21 H Respiratory Depth Respiratory Pattern Blood Pressure 71/43 L 90/42 L 95/51 L Blood Pressure Mean 52 58 65 Pulse Ox 98 95 95 Oxygen Delivery Method Nasal Cannula Nasal Cannula Nasal Cannula Oxygen Flow Rate (L/min) 2 2 2 Fraction of Inspired Oxygen (FIO2) 04/27/25 16:32 04/27/25 16:48 04/27/25 17:00 Temperature 98.9 F 98.1 F Temperature Source Oral Temporal Pulse Rate 98 97 95 Respiratory Rate 26 H 24 H 25 H Respiratory Depth Respiratory Pattern Tachypnea Blood Pressure 94/56 L 109/47 L Blood Pressure Mean 68 67 Pulse Ox 92 96 100 Oxygen Delivery Method Nasal Cannula Bi-pap Oxygen Flow Rate (L/min) 4 Fraction of Inspired Oxygen (FIO2) 50 04/27/25 17:56 04/27/25 18:23 Temperature 97.8 F 98.2 F Temperature Source Temporal Temporal Pulse Rate 87 88 Respiratory Rate 24 H 24 H Respiratory Depth Respiratory Pattern Blood Pressure 74/44 L 82/51 L Blood Pressure Mean 54 61 Pulse Ox 99 99 Oxygen Delivery Method Bi-pap Bi-pap Oxygen Flow Rate (L/min) Fraction of Inspired Oxygen (FIO2) 30 30 MDM MDM MDM Narrative Medical decision making narrative: 64-year-old female with history of stage IV lung cancer that is metastasized to the bone, COPD presents for evaluation of shortness of breath and cough. Patient states her last chemotherapy was 1.5 months ago. She does not receive radiation. Does not have a port. Patient states for the past 3 weeksshe has been having progressive shortness of breath and productive cough. Daily smoker. Not on blood thinners. On presentation, patient is hypotensive, tachypneic, hypoxic. Does not wear oxygen at home. Differential diagnosis includes but is not limited to pneumonia, COPD exacerbation, PE, viral illness, electrolyte abnormality, SABA, UTI. Patient meets sepsis criteria. Cefepime and vancomycin ordered broadly given that patient is immunocompromise given her chemotherapy. Solu-Medrol and DuoNebs ordered. 30 cc/kg bolus will be given based on ideal body weight as concern is for fluid overload with your respiratory status. Infectious workup ordered including CTA of the chest. CBC with leukocytosis of 21.5. No anemia. Platelets unremarkable. VBG without acidosis or hypercapnia. CMP consistent with dehydration. Patient's potassium is 2.6. IV potassium ordered for replacement as well as magnesium level. Patient has a BUN of 53 and acreatinine of 1.63. Previous labs on chart review are from 2022 normal kidney function at that time. Unknown if this is acute or chronic. Her lactic is 2.3. Sheis receiving fluids. Her magnesium level mildly elevated. Troponin 39. Patient not endorsing any ora st pain. Will get delta. BNP elevated at 1615. CTA of the chest negative for PE. Patient has mediastinal lymphadenopathy of the main pulmonary arteries being encased causing mass effect, greater on the right. Concerning for her known neoplastic process. Partial consolidation and groundglass attenuation of the right lower lobe, likely pneumonia. Urschel consolidation in the right middle lobe. Patient already receiving antibiotics. On reevaluation, blood pressure has improved with fluids however she is having increasing shortness of breath, will place on BiPAP. Patient updated of all theresultsand the plan for admission. Spoke with the hospitalist service who would like to reach out to pulmonology prior to accepting admission. Waiting for their plan. Hospital service spoke with daycare provider, patient wants full treatment will be better served at a tertiary care center. Hospitalist came andevaluated patient, patient would like to remain full code and therefore we will try to transfer her to [facility] where her oncologist is located. Patient having decreased blood pressure again. Will get chest x-ray before giving fluids to make sure that patient is not fluid overloaded. Chestx-ray was personally viewed interpreted by me, ED physician. Patient's pneumonia and cancer is visualized. No large effusion. No vascular congestion. Patient willbe given another NS bolus. I spoke [facility] transfer line as well as the [facility] tray drier operator, Dr. Mcguire. Patient wasaccepted for transfer but will be placed on a wait list. Likely will not be transferred in the next24 hours. Recommend her to be admitted to our hospital with treatment. I talked to Dr. Hassan. She confirmed understand the plan. She accepted admission. I did inform her that Dr. Mcguire states states to call their team in the morning to give them updates. She confirmed understanding of the plan.Patient was updated of the plan as well. [facility] is new therefore it is an SABA EKG: Interpreted by me/EM physician: EKG shows sinus tachycardia with occasional PVCs. There is multipleartifact on the EKG. Heart rate 101. 45 minutes of critical care time utilized in managing the patient. This is due to high probability of and deterioration of the patient based on the patient's condition and excludes any separately billable procedures. Impression: 1. Acute hypoxic respiratory failure requiring BiPAP 2. Sepsis secondary to right-sided pneumonia 3. Stage IV lung cancer 4. SABA 5. Lactic acidosis 6. Elevated troponin, likely secondary to type II demand 7. Hypokalemia 4. Elevated BNP Lab Data Labs: Laboratory Results - last 24 hr 04/27/25 04/27/25 04/27/25 14:45 16:00 16:45 WBC 21.5 H RBC 4.44 Hgb 12.5 Hct 37.4 MCV 84.2 MCH 28.2 MCHC 33.4 RDW Std Deviation 49.6 H RDW Coeff of Keven 16.1 H Plt Count 163 MPV 10.9 Immature Gran % (Auto) 1.800 H Neut % (Auto) 88.0 H Lymph % (Auto) 3.2 L Grimes % (Auto) 6.1 Eos % (Auto) 0.7 Baso % (Auto) 0.2 Absolute Neuts (auto) 18.9 H Absolute Lymphs (auto) 0.69 L Nucleated RBC % 0 PT Cancelled 16.6 H INR Cancelled 1.3 APTT Cancelled 23.3 L Sodium 132 L Potassium 2.6 L* Chloride 89 L Carbon Dioxide 24.7 Anion Gap 18 H BUN 53 H Creatinine 1.63 H Estim Creat Clear Calc 32.54 L Est GFR (MDRD) Non-Af 35 L BUN/Creatinine Ratio 32.3 H Glucose 139 H Lactic Acid 2.3 H* Calcium 11.4 H Magnesium 2.3 H Total Bilirubin 0.89 AST 28 ALT 44 H Alkaline Phosphatase 187 H Troponin T High Sens 39 H Troponin T Hi Sens 2 Hr 34 H NT pro BNP II 1615 H Total Protein 7.7 Albumin 3.5 Globulin 4.2 Albumin/Globulin Ratio 0.8 L Urine Color Urine Clarity Urine pH Ur Specific Post Urine Protein Urine Glucose (UA) Urine Ketones Urine Occult Blood Urine Nitrite Urine Bilirubin Urine Urobilinogen Ur Leukocyte Esterase Urine RBC Urine WBC Ur Squamous Epith Cells Urine Bacteria Urine Mucus 04/27/25 18:35 WBC RBC Hgb Hct MCV MCH MCHC RDW Std Deviation RDW Coeff of Keven Plt Count MPV Immature Gran % (Auto) Neut % (Auto) Lymph % (Auto) Grimes % (Auto) Eos % (Auto) Baso % (Auto) Absolute Neuts (auto) Absolute Lymphs (auto) Nucleated RBC % PT INR APTT Sodium Potassium Chloride Carbon Dioxide Anion Gap BUN Creatinine Estim Creat Clear Calc Est GFR (MDRD) Non-Af BUN/Creatinine Ratio Glucose Lactic Acid Calcium Magnesium Total Bilirubin AST ALT Alkaline Phosphatase Troponin T High Sens Troponin T Hi Sens 2 Hr NT pro BNP II Total Protein Albumin Globulin Albumin/Globulin Ratio Urine Color Straw Urine Clarity Clear Urine pH 7.0 Ur Specific Post 1.005 Urine Protein 30 H Urine Glucose (UA) Normal Urine Ketones Negative Urine Occult Blood 10 H Urine Nitrite Negative Urine Bilirubin Negative Urine Urobilinogen Normal Ur Leukocyte Esterase Negative Urine RBC 0-5 SEEN Urine WBC 0-5 SEEN Ur Squamous Epith Cells 0-5 SEEN Urine Bacteria 0 SEEN Urine Mucus 0 SEEN ABG Data ABG results: ABG 04/27/25 15:25 Specimen Type ART Sample Site L Radial pH 7.49 H Bicarbonate Actual 27.2 H Total CO2 28 Base Excess 4 H O2 Saturation 97 O2 % 2.0 ABG pCO2 35.3 ABG pO2 87 Arie Test Positive O2 Delivery Device Cannula Vent Mode Not entered Radiography Diagnostic Testing: Clinical Impression(s) from Imaging Studies Chest CTA 04/27/25 15:41 IMPRESSION: 1. No pulmonary embolus. However, significant mediastinal lymphadenopathy is identified with the main pulmonary arteries being encased causing mass effect, greater on the right. This is concerning for neoplastic process. 2. Partial consolidation and ground-glass attenuation of the right lower lobe, likely pneumonia. Partial consolidation of the right middle lobe. Reading Location: [facility] Chest X-Ray 04/27/25 18:41 IMPRESSION: Right lower lobe pneumonia. Right upper lobe/hilar opacity may also reflect consolidation/neoplastic process. Reading Location: [id number] Discharge Plan Triage Chief Complaint: Shortness of Breath ED Provider: Yaya Arndt Dx/Rx/DC Orders Prescriptions: No Action fluticasone propionate [Flonase Allergy Relief] 50 mcg/actuation spray,suspension 2 spray INTRANASAL DAILY PRN (Reason: allergy symptoms) Rx Instructions: administer into each nostril cyclobenzaprine 10 mg tablet 10 mg PO BID PRN (Reason: pain) Patient Comments: TAKE 1/2 (ONE-HALF) TO 1 (ONE) TABLET BY MOUTH THREE TIMES DAILY NEEDED FOR MUSCLE SPASMS rosuvastatin 40 mg tablet 40 mg PO DAILY potassium chloride 20 mEq packet 20 meq PO BID Patient Comments: TAKE 1 PACKET BY MOUTH TWICE DAILY hydrochlorothiazide 25 mg tablet 25 mg PO DAILY Qty: 90 3RF verapamil 120 mg capsule,ext rel. pellets 24 hr 120 mg PO DAILY Qty: 90 3RF folic acid 1 mg tablet 1 mg PO QDAY furosemide 20 mg tablet 20 - 40 mg PO QDAY PRN (Reason: edema) ibuprofen 800 mg tablet 800 mg PO Q8H PRN (Reason: pain) benzonatate 100 mg capsule 200 mg PO TID PRN (Reason: cough) fluticasone propion-salmeterol [Advair Diskus] 500-50 mcg/dose blister with device 1 ea inhalation BID Incruse Ellipta 62.5 mcg/actuation blister with device 1 inh inhalation QDAY multivitamin with folic acid [Daily-Nettie (with folic acid)] 400 mcg tablet 1 tab PO QDAY losartan 25 mg tablet 25 mg PO QDAY albuterol sulfate 2.5 mg /3 mL (0.083 %) solution for nebulization 2.5 mg continuous nebulization Q6 PRN (Reason: wheezing) esomeprazole magnesium 20 mg capsule,delayed release(DR/EC) 20 mg PO QAM sennosides [Natural Senna Laxative] 8.6 mg tablet 17.2 mg PO BID oxycodone-acetaminophen 10-325 mg tablet 1 tab PO Q4 PRN (Reason: pain) albuterol sulfate 18 GM HFA aerosol inhaler 2 puff inhalation PRN PRN (Reason: Shortness Of Breath) Patient Comments: prednisone 10 mg tablet See Rx Instructions PO .COMPLEX Rx Instructions: TAKE 4 TABLETS BY MOUTH ONCE DAILY for 3 days, then 3 tablets for 3 days, then 2 tablets for 3 days, then 1 tablet for 3 days; TAPER prochlorperazine maleate 10 mg tablet 10 mg PO Q6H PRN levofloxacin 500 mg tablet 500 mg PO DAILY celecoxib 100 mg capsule 100 mg PO Q24H aspirin 81 mg tablet,delayed release (DR/EC) 81 mg PO DAILY@0800 Qty: 90 3RF Primary Care Provider: Fiona Durant Referrals: Fiona Durant MD [Primary Care Provider] - Print Language: Indian What to do if you have Problems For any increased pain, shortness of breath, bleeding, nausea or vomiting, chestpain, or any unexpected problems, contact your Primary Care Provider. Call [facility] ([phone]) or report tothe closest Emergency Room. Call 911 if necessary. 04/27/251938 Cosigner Signature (if applicable): CC: Dr. Fiona Durant MD ~ Signed [facility]07-21-2025 Radiology Diagnostic study note [facility] Imaging Services [address] [place] [address] Chest 1 View (Portable) MR#: [id number] Acct: [id number] Name: LATA SMITH Rep #: [id number] : 1960 F 64 From: Alessandra Terrazas MD PCP: Dr. Fiona Durant MD Status: RE G ER Study:Chest 1 View (Portable) Date of Exam: 04/27/25 Exam# [id number] Ordering Dr: Yaya Fernandez DO PROCEDURE: CHEST 1 VIEW (PORTABLE) 04/27/2025 REASON FOR EXAM: SHORTNESS OF BREATH TECHNIQUE: Frontal view of the chest. COMPARISON: 04/27/2025 CT FINDINGS: Right lower lobe pneumonia. Right upper lobe/hilar opacity may also reflect consolidation/neoplastic process. No pleural effusion or pneumothorax. Cardiac silhouette is within normal limits. RAD/Chest 1 View (Portable) IMPRESSION: Right lower lobe pneumonia. Right upper lobe/hilar opacity may also reflect consolidation/neoplastic process. Reading Location: [id number] CC: Dr. Yaya Arndt DO; Dr. Fiona Durant MD ~ Agency Legal Counsel: Signed [facility]07-21-2025 Radiology Diagnostic study note [facility] Imaging Services [address] [place] [address] CTA Chest W/WO Contrast MR#: [id number] Acct: [id number] Name: LATA SMITH Rep #: [id number] : 1960 F 64 From: Genoveva Blue MD PCP: Dr. Fiona Durant MD Status: RE G ER Study:CTA Chest W/WO Contrast Date of Exam: 04/27/25 Exam# [id number] Ordering Dr: Yaya Fernandez DO EXAM: CT Angiography Chest Without and With Intravenous Contrast CLINICAL INDICATION: PE< SOB WITH CA TECHNIQUE: Axial computed tomographic angiography images of the chest without and with intravenous contrast. This CT exam was performed using one or more of the following dose reduction techniques: automated exposure control,adjustment of the mA and/or kV according to patient size, and/or use of iterative reconstruction technique. MIP reconstructed images were created and reviewed. COMPARISON: No relevant prior studies available. FINDINGS: PULMONARY ARTERIES: Unremarkable. No pulmonary embolus. However, significant mediastinal lymphadenopathy is identified with the main pulmonary arteries being encased causing mass effect, greater on the right. This is concerning for neoplastic process. AORTA: No acute findings. No thoracic aortic aneurysm. LUNGS AND PLEURAL SPACES: Partial consolidation and ground-glass attenuation ofthe right lower lobe, likely pneumonia. Partial consolidation of the right middle lobe. No significant effusion. HEART: Unremarkable. No cardiomegaly. No significant pericardial effusion. No evidence of RV dysfunction. BONES/JOINTS: 1.6 cm sclerotic lesion of T8 vertebral body concerning for metastasis. No acute fracture. No dislocation. SOFT TISSUES: Unremarkable. LYMPH NODES: See above. CT/CTA Chest W/WO Contrast IMPRESSION: 1. No pulmonary embolus. However, significant mediastinal lymphadenopathy is identified with the main pulmonary arteries being encased causing mass effect, greater on the right. This is concerning for neoplastic process. 2. Partial consolidation and ground-glass attenuation of the right lower lobe, likely pneumonia. Partial consolidation of the right middle lobe. Reading Location: [facility] CC: Dr. Yaya Arndt DO; Dr. Fiona Durant MD ~ Agency Legal Counsel: Signed [facility]07-18-2025 History of Present illness Narrative* eGorgina Morgan MD - 04/24/2025 2:15 PM EDT Images from the original note were not included. . Respiratory [place] Note Patient name: Lata Smith PCP: Fiona [...] seen for preoperative bronchoscopy evaluation. She had hada change in character of her cough, not [...] She has an upcoming appointment with Dr. Duncna. She called the office with comp laints of productive cough and sob since her recent bronchoscopy and presents for an acute visit. Cough is productive of green phlegm. No hemoptysis. Persistent wheezing which is not new but has feltmore dyspneic. No chest pain, fevers or chills. 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 Do not replace [...] by mouth four times daily. 1tsp swish inmouth for several minutes, then swallow (or expectorate) [...] Inhale 1 Puff as instructed two times aday. RINSE AND GARGLE MOUTH WITH WATER AFTER [...] in one nostril as needed for overdose. Mayrepeat every 2 to 3 min in alternating [...] as needed (upper extremity joint(s)). simethicone, chewable (OR-ACID GAS RELIEF,SIMETHICON,) 80 mg chewable tablet Take 1 tablet by mouthevery 6 hours as needed. traZODone (DESYREL) 50 mg tablet Take 1 tablet by mouth at bedtime as needed. senna (SENOKOT) 8.6 mg tab Take 2 tablets by mouth twice daily. oxyCODONE-acetaminophen (PERCOCET) 7.5-325 mg tablet Take 1 tablet by mouth every 8 hours as neededfor pain. rizatriptan (MAXALT) 10 mg tablet Take [...] has cut back Georgina Morgan MD Respiratory [place] documented in this encounterAcm[facility]07-15-[facility]25 Telephone encounter Note * Telephone Encounter - Christina Amaro RN - 04/21/2025 3:[address] Burgess aware. Patient to reach out to pulmonary for symptom management. Oneida Amaro RN [facility] Work Phone: 1(587) 616-472407-15-2025 Miscellaneous Notes* Telephone Encounter - Christina Amaro RN - 04/21/2025 3:[address] Burgess aware. Patient to reach out to pulmonary for symptom management. Oneida Amaro RN * Telephone Encounter - Christina Amaro RN - 04/21/2025 2:43 PM EDT Care Coordination Triage Note Cancer [place] Situation: Patient reports Cough/Respiratory Concerns/SOB Background: Lung [...] 21, 2025 2:43 PM documented in this encounterAcmc [facility]07-15-2025 Telephone encounter Note * Telephone Encounter - Christina Amaro RN - 04/21/2025 2:43 PM EDT Care Coordination Triage Note Cancer [place] Situation: Patient reports Cough/Respiratory Concerns/SOB Background: Lung [...] Amaro RN April 21, 2025 2:43 PM [facility]-14-2025 Telephone encounter Note* Telephone Encounter - Shahnaz Rosa - 04/20/2025 10:32 AM EDT Pt appts have been cx as directed. Shahnaz Rosa [facility]07-14-2025 Miscellaneous Notes* Telephone Encounter - Shahnaz Rosa - 04/20/2025 10:32 AM EDT Pt appts have been cx as directed. Shahnaz Rosa * Telephone Encounter - Christina Amaro RN - 04/20/2025 10:17 AM EDT PSS: please cancel all appointments with our office EXCEPT for OV with Dr. Duncan on 05/06/25. Oneida Amaro RN * Telephone Encounter - Christina Amaro RN - 04/20/2025 10:15 AM EDT [facility] Care Coordination FOLLOW-UP NOTE Patient identified by [...] and an understanding of after- hours phone numberand process: Yes Care Coordination Plan: No further follow up needed at this time Christina Amaro RN April 20, 2025 documented in this encounterAcmc [facility]07-14-2025 Telephone encounter Note * Telephone Encounter - Christina Amaro RN - 04/20/2025 10:17 AM EDT PSS: please cancel all appointments with our office EXCEPT for OV with Dr. Duncan on 05/06/25. Oneida Amaro RN [facility] Work Phone: 1(423) 554-789207-14-2025 Telephone encounter Note* Telephone Encounter - Christina Amaro RN - 04/20/2025 10:15 AM EDT Jose Raul Care Coordination FOLLOW-UP NOTE Patient [...] and an understanding of after- hours phone numberand process: Yes Care Coordination Plan: No further follow up needed at this time Christina Amaro RN April 20, 2025 [facility] Telephone encounter Note* Telephone Encounter - Christina Amaro RN - 04/16/2025 1:[address] Burgess aware and ok to remove Carboplatin from regimen. Oneida Amaro RN [facility] Work Phone: [phone]) [phone] Miscellaneous Notes* Telephone Encounter - Christina Amaro RN - 04/16/2025 1:[address] Burgess aware and ok to remove Carboplatin from regimen. Oneida Amaro RN * Telephone Encounter - Christina Amaro RN - 04/16/2025 11:59 AM EDT Patient returned call and states that she does not want to have any more Carboplatin at all. She doesn't feel that her body is up for it. She is ok to start Abraxane. Oneida Amaro RN * Telephone Encounter - Christina Amaro RN - 04/16/2025 11:30 AM EDT Attempted to call patient. No answer. Left message to call me back. Oneida Amaro RN * Telephone Encounter - Maylin Haley - 04/16/2025 10:04 AM EDT Patient called to speak to Oneida Amaro. Unable to reach at this time. Patient stated she does not want to do Carboplatin treatment on the but she will continue with ABRAXANE. Please call patient when able. Maylin Haley documented in this encounterAcmc Healthcare [facility]07-10-2025 Telephone encounter Note * Telephone Encounter - Christina Amaro RN - 04/16/2025 11:59 AM EDT Patient returned call and states that she does not want to have any more Carboplatin at all. She doesn't feel that her body is up for it. She is ok to start Abraxane. Oneida Amaro RN [facility]07-10-2025 Telephone encounter Note* Telephone Encounter - Christina Amaro RN - 04/16/2025 11:30 AM EDT Attempted to call patient. No answer. Left message to call me back. Oneida Amaro RN [facility]07-10-2025 Telephone encounter Note* Telephone Encounter - Maylin Haley - 04/16/2025 10:04 AM EDT Patient called to speak to Oneida Amaro. Unable to reach at this time. Patient stated she does not want to do Carboplatin treatment on the but she will continue with ABRAXANE. Please call patient when able. Maylin Haley [facility]07-09-2025 History of Present illness Narrative* Christina Amaro RN - 04/15/2025 3:41 PM EDT Patient teaching was completed over the phone. [...] was provided/discussed including but not limited to: abdominaldiscomfort, anemia, appetite changes, arthralgia, bowel habit changes, [...] patient, which included the importance of reporting anyfever of 100.4F (38.0C) or greater to the healthcare team as noted on the provided wallet card and/or magnet. YES Time Spent: 30 minutes REFERRAL (RECOMMENDATION): N/A Christina Prem, RN documented in this encounterAcmc Healthcare [facility]07-08-2025 Telephone encounter Note * Telephone Encounter - Christina Amaro RN - 04/14/2025 2:35 PM EDT 04/08 office notes and 03/31 biopsy results faxed to number provided. Oneida Amaro RN [facility] Work Phone: [phone]) 628-377007-08-2025 Miscellaneous Notes* Telephone Encounter - Christina Amaro RN - 04/14/2025 2:35 PM EDT 04/08 office notes and 03/31 biopsy results faxed to number provided. Oneida Amaro RN * Telephone Encounter - Christina Amaro RN - 04/14/2025 10:[address] Burgess to sign his note. Oneida Amaro RN * Telephone Encounter - Deb Hoover LPN - 04/09/2025 1:25 PM EDT Office note not signed yet. Deb Hoover LPN * Telephone Encounter - Kim Augustine - 04/09/2025 12:55 PM EDT Corbin with [facility] is requesting copy of 04/08 office notes and 03/31 biopsy results. Please fax to [phone] Attn: Corbin documented in this encounterAcmc Healthcare [facility]07-08-2025 Telephone encounter Note * Telephone Encounter - Christina Amaro RN - 04/14/2025 10:[address] Burgess to sign his note. Oneida Amaro RN [facility]-07-2025 Telephone encounter Note* Telephone Encounter - Liza Canas RN - 04/13/2025 11:31 AM EDT Returned patients call to discuss the concerns the patient had expressed prior. These concerns werebrought to Oneida Amaro and then Michelle Mclean. A plan to address the patients concerns has been implemented. Patient knows to call with any questions or concerns in the meantime. Liza Canas RN [facility]07-07-2025 Miscellaneous Notes* Telephone Encounter - Liza Canas RN - 04/13/2025 11:31 AM EDT Returned patients call to discuss the concerns the patient had expressed prior. These concerns werebrought to Oneida Amaro and then Michelle Mclean. A plan to address the patients concerns has been implemented. Patient knows to call with any questions or concerns in the meantime. Liza Canas RN documented in this encounterAcmc [facility]07-03-2025 Telephone encounter Note * Telephone Encounter - Deb Hoover LPN - 04/09/2025 1:25 PM EDT Office note not signed yet. Deb Hoover LPN [facility]07-03-2025 Telephone encounter Note* Telephone Encounter - Christina Amaro RN - 04/09/2025 1:[address] Burgess, cancer would be considered aggressive. Oneida Amaro RN Call to patient and aware. No further questions from her. She was reminded of chemo education date/time and given start date/time. Oneida Amaro RN [facility] Work Phone: [phone]) 469-626007-03-2025 Miscellaneous Notes* Telephone Encounter - Christina Amaro RN - 04/09/2025 1:[address] Burgess, cancer would be considered aggressive. Oneida Amaro RN Call to patient and aware. No further questions from her. She was reminded of chemo education date/time and given start date/time. Oneida Amaro RN * Telephone Encounter - Christina Amaro RN - 04/09/2025 8:46 AM EDT Patient calls in asking if the new cancer discussed yesterday is aggressive? She forgot to ask thatyesterday. She is also asking if the steroid mentioned yesterday was called into pharmacy? Verified that Medrol pk was called in and that I will ask Dr. Burgess and call her back. Oneida Amaro RN documented in this encounterAcmc Healthcare [facility]07-03-2025 Telephone encounter Note * Telephone Encounter - Kim Augustine - 04/09/2025 12:55 PM EDT Corbin with [facility] is requesting copy of 04/08 office notes and 03/31 biopsy results. Please fax to [phone] Attn: Corbin [facility] Work Phone: 1(169) 498-831907-03-2025 Telephone encounter Note* Telephone Encounter - Christina Amaro RN - 04/09/2025 8:46 AM EDT Patient calls in asking if the new cancer discussed yesterday is aggressive? She forgot to ask thatyesterday. She is also asking if the steroid mentioned yesterday was called into pharmacy? Verified that Medrol pk was called in and that I will ask Dr. Burgess and call her back. Oneida Amaro RN [facility]07-02-2025 Telephone encounter Note* Telephone Encounter - Maylin Haley - 04/08/2025 4:30 PM EDT Scheduled treatment and sent chemo start email Maylin Haley [facility]07-02-2025 Miscellaneous Notes* Telephone Encounter - Maylin Haley - 04/08/2025 4:30 PM EDT Scheduled treatment and sent chemo start email Maylin Haley * Telephone Encounter - Maylin Haley - 04/08/2025 2:00 PM EDT Chemo Education-Carbo/Abraxaneprove-SCHEDULED 04/15 Start Carbo/Abraxane, CBC/CMP, straight back to start CBC with D8, D15 CBC/CMP/OV prior to each cycle documented in this encounterAcmc Healthcare [facility]07-02-2025 Telephone encounter Note * Telephone Encounter - Maylin Haley - 04/08/2025 2:00 PM EDT Chemo Education-Carbo/Abraxaneprove-SCHEDULED 04/15 Start Carbo/Abraxane, CBC/CMP, straight back to start CBC with D8, D15 CBC/CMP/OV prior to each cycle [facility]07-02-2025 History of Present illness Narrative* Sandoval Burgess MD - 04/08/2025 1:34 PM EDT (Elements copied from my note dated March [...] on her right side of her chest forcouple months. Her staging PET scan on 08/03/2020 unfortunately showed metastatic disease. She had bronchoscopy and EBUS biopsy of the mediastinal lymph node on 08/19/2020. Biopsy was consistent withnon-small cell, favoring adenocarcinoma the lung. She is [...] by med onc and rad onc at [facility], their review suggests stability of disease, they [...] 2 Puffs as instructed every 4 hours asneeded for Wheezing/Shortness of Breath. Do not replace [...] by mouth four times daily. 1tsp swish inmouth for several minutes, then swallow (or expectorate) [...] Inhale 1 Puff as instructed two times aday. RINSE AND GARGLE MOUTH WITH WATER AFTER [...] in one nostril as needed for overdose. Mayrepeat every 2 to 3 min in alternating [...] as needed (upper extremity joint(s)). simethicone, chewable (OR-ACID GAS RELIEF,SIMETHICON,) 80 mg chewable tablet Take 1 tablet by mouthevery 6 hours as needed. traZODone (DESYREL) 50 mg tablet Take 1 tablet by mouth at bedtime as needed. senna (SENOKOT) 8.6 mg tab Take 2 tablets by mouth twice daily. oxyCODONE-acetaminophen (PERCOCET) 7.5-325 mg tablet Take 1 tablet by mouth every 8 hours as neededfor pain. rizatriptan (MAXALT) 10 mg tablet Take [...] (Temporal) Wt 181 lb (82.1kg) SpO2 95% LMP11/04/2012 GENERAL APPEARANCE: Well appearing, in no acute distress, alert and oriented x3, well-hydrated, well nourished. LUNGS: CTA I spent a total of 45 minutes on the date of the service which included preparing to see the patient, [id number] patient care, completing clinical documentation, obtaining and/or reviewing separately obtained history, performing a medically appropriate examination, counseling and educating the pat ient/family/caregiver, independently interpreting results (not separately reported), and communicating results to the patient/family/caregiver. Also review of images, plan discussed with wound care technician, nursing. Electronically Signed: Sandoval Burgess MD April 08, 2025 documented in this encounterAcmc Healthcare [facility]06-13-2025 History of Present illness Narrative* Georgina Morgan MD - 03/20/2025 10:00 AM EDT Images from the original note were not included. . Respiratory [place] Note Patient name: Lata Smith PCP: Fiona uDrant MD CC: Preop bronchoscopy exam HPI: Lata Smith 64 year old female current 40 pack year smoker with PMH significant for obesity, asthma with COPD (moderate obstruction), GERD, HTN, CAD s/p PCI, stage IV non-small cell lung cancer diagnosed 2019 with mets to bones. Current therapy with Alimta and pemetrexed. Carboplatin stopped due to side effects. At [facility], inhaled therapy consists of Advair 500/50 and Incruse and encouragedcompliance with proper dosing. Office visit, she has had a change in the character typical smoker'scough. She has had whooping type cough that has been persistent. She has noted scant blood-tingedmucus on rare occasions. Her cough is deep and bronchial causing right-sided chest pain from coughing. She hears wheezing at night. Her coughing is not positional in nature. She has been compliant with use of her inhaled therapy. She has not been ill any upper respiratory infection or required hospitalization. Most recent PET scan shows progression of her disease with bulky right hilar adenopathyand increased subcarinal. She now has extrinsic compression [...] k/uL 1.16 Monocytes % % 9.7 Abs Grimes <0.87 k/uL 1.05 High Eosinophils % % 2.4 Abs Eosin <0.46 k/uL 0.26 Basophils % % 0.6 Abs Baso <0.11 k/uL 0.07 Immature Granulocytes % % 0.5 Abs Immature Gran <0.10 k/uL 0.05 NRBC /100 WBC 0.0 Absolute nRBC <0.01 k/uL <0.01 Diff Type Auto Resulting Agency [facility] / Diagnostic Studies: DATE OF EXAM: [...] 2 Puffs as instructed every 4 hours asneeded for Wheezing/Shortness of Breath. Do not replace [...] by mouth four times daily. 1tsp swish inmouth for several minutes, then swallow (or expectorate) [...] Inhale 1 Puff as instructed two times aday. RINSE AND GARGLE MOUTH WITH WATER AFTER [...] in one nostril as needed for overdose. Mayrepeat every 2 to 3 min in alternating [...] as needed (upper extremity joint(s)). simethicone, chewable (OR-ACID GAS RELIEF,SIMETHICON,) 80 mg chewable tablet Take 1 tablet by mouthevery 6 hours as needed. traZODone (DESYREL) 50 mg tablet Take 1 tablet by mouth at bedtime as needed. senna (SENOKOT) 8.6 mg tab Take 2 tablets by mouth twice daily. oxyCODONE-acetaminophen (PERCOCET) 7.5-325 mg tablet Take 1 tablet by mouth every 8 hours as neededfor pain. rizatriptan (MAXALT) 10 mg tablet Take [...] her new atelectasis rather than progression of herCOPD -Smoking cessation strongly encouraged but patient has no desire to quit smoking -Continue triple inhaler therapy 4. Cigarette smoker -Current smoker with sequelae of cancer and COPD -Absolutely needs to stop smoking we discussed this today. As stated above she has no desire to quit 5. Hypokalemia -Potassium 2.7. Patient needs supplementation. Messaged primary care physician Georgina Morgan MD Respiratory [place] documented in this encounterAcmc [facility]06-12-2025 Telephone encounter Note * Telephone Encounter - Hoa Gaines LPN - 03/19/2025 4:18 PM EDT Detailed Message left on voicemail, also informed to check her my chart. Hoa Gaines LPN [facility]06-12-2025 Miscellaneous Notes* Telephone Encounter - Hoa Gaines LPN - 03/19/2025 4:18 PM EDT Detailed Message left on voicemail, also informed to check her my chart. Hoa Gaines LPN * Telephone Encounter - Hoa Gaines LPN - 03/19/2025 12:58 PM EDT Message left on pt. Voicemail to contact office concerning previous note from Dr. Burgess. Hoa Gaines LPN * Telephone Encounter - Hoa Gianes LPN - 03/19/2025 12:58 PM EDT call pt let her know main campus will be reaching out to schedule the bronchoscopy? Per Dr. Aditya Gaines LPN documented in this encounterAcmc Healthcare [facility]06-12-2025 History of Present illness Narrative* Edith Willis MD - 03/19/2025 1:28 PM EDT Bronchoscopy Request: Cleared for scheduling March 19, 2025 Please schedule patient for the following: Diagnostic EBUS NEEDS Follow-up visit (Saw Georgina Morgan in the past) Note to material scheduler: Check with [facility] before scheduling- there [...] on anticoagulants/anti-plt therapy? No Nursing Considerations: (ie: usp, TB, respiratory isolation, etc.) none Diagnosis/Reason for [...] 03/18/2025 Neut% 76.1 03/18/2025 Lymph% 10.7 03/18/2025 Grimes% 9.7 03/18/2025 Eosin% 2.4 03/18/2025 Baso% 0.6 03/18/2025 Abs Neut (ANC) 8.22 03/18/2025 Abs Grimes 1.05 03/18/2025 Abs Eosin 0.26 03/18/2025 Abs [...] - 0.96 mg/dL Final documented in this encounterAcmc Healthcare [facility]06-12-2025 Telephone encounter Note * Telephone Encounter - Hoa Gaines LPN - 03/19/2025 12:58 PM EDT Message left on pt. Voicemail to contact office concerning previous note from Dr. Burgess. Hoa Gaines LPN [facility]06-12-2025 Telephone encounter Note* Telephone Encounter - Hoa Gaines LPN - 03/19/2025 12:58 PM EDT call pt let her know main campus will be reaching out to schedule the bronchoscopy? Per Dr. Aditya Gaines LPN [facility]06-12-2025 NoteHNO ID: [id number] Author: HERIBERTO WELDON MD Service: ? Author [...] NATACHA Weldon MD March 19, 2025 11:57 [facility]06-12-2025 History of Present illness Narrative* Heriberto Weldon MD - 03/19/2025 11:53 AM EDT Bronchoscopy Request: Please schedule patient for the [...] 19, 2025 11:57 AM documented in this encounterAcmc Healthcare [facility]06-12-2025 Telephone encounter Note * Telephone Encounter - Deb Hoover LPN - 03/19/2025 11:04 AM EDT Schedule updated. Deb Hoover LPN [facility]06-12-2025 Miscellaneous Notes* Telephone Encounter - Deb Hoover LPN - 03/19/2025 11:04 AM EDT Schedule updated. Deb Hoover LPN * Telephone Encounter - Christina Amaro RN - 03/19/2025 10:37 AM EDT Visit Disposition Check-out Note Hold chemo tomorrow documented in this encounterAcmc Healthcare [facility]06-12-2025 Telephone encounter Note * Telephone Encounter - Christina Amaro RN - 03/19/2025 10:37 AM EDT Visit Disposition Check-out Note Hold chemo tomorrow [facility] Work Phone: 1(322) 313-355006-11-2025 History of Present illness Narrative* Sandoval Burgess MD - 03/18/2025 2:52 PM EDT (Elements copied from my note dated February [...] on her right side of her chest forcouple months. Her staging PET scan on 08/03/2020 unfortunately showed metastatic disease. She had bronchoscopy and EBUS biopsy of the mediastinal lymph node on 08/19/2020. Biopsy was consistent withnon-small cell, favoring adenocarcinoma the lung. She is [...] by med onc and rad onc at [facility], their review suggests stability of disease, they recommend observation, possible SBRT to lung if we see further growth of right lung nodule. PET scan from ,07-01 we see progression [...] 1. Hold alimta. 2. Message sent to [facility] re possible EBUS, chest node biopsy Written and verbal health teaching given to patient, patient verbalizes understanding and agrees with treatment plan. 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 Do not replace [...] by mouth four times daily. 1tsp swish inmouth for several minutes, then swallow (or expectorate) [...] Inhale 1 Puff as instructed two times aday. RINSE AND GARGLE MOUTH WITH WATER AFTER [...] in one nostril as needed for overdose. Mayrepeat every 2 to 3 min in alternating [...] as needed (upper extremity joint(s)). simethicone, chewable (OR-ACID GAS RELIEF,SIMETHICON,) 80 mg chewable tablet Take 1 tablet by mouthevery 6 hours as needed. traZODone (DESYREL) 50 mg tablet Take 1 tablet by mouth at bedtime as needed. senna (SENOKOT) 8.6 mg tab Take 2 tablets by mouth twice daily. oxyCODONE-acetaminophen (PERCOCET) 7.5-325 mg tablet Take 1 tablet by mouth every 8 hours as neededfor pain. rizatriptan (MAXALT) 10 mg tablet Take [...] (Temporal) Wt 188 lb (85.3kg) SpO2 93% LMP11/04/2012 GENERAL APPEARANCE: Well appearing, in no acute distress, alert and oriented x3, well-hydrated, well nourished. LUNGS: CTA I spent a total of 30 minutes on the date of the service which included preparing to see the patient, [id number] patient care, completing clinical documentation, obtaining and/or reviewing separately obtained history, performing a medically appropriate examination, counseling and educating the pat ient/family/caregiver, independently interpreting results (not separately reported), and communicating results to the patient/family/caregiver. Also review of images, plan discussed with wound care technician, nursing. Electronically Signed: Sandoval Burgess MD March 18, 2025 documented in this encounterAcmc Healthcare [facility]06-02-2025 History of Present illness Narrative* Geronimo Beard RT(R) - 03/09/2025 12:30 PM EDT RADIOLOGY SERVICE PROGRESS NOTE SERVICE DATE: 03/09/2025 [...] PATIENT PRESENTS WITH AN IMPLANTABLE OR ATTACHED CRUSHING FOREMAN: No CREATININE: Creatinine Date Value Ref Range [...] creatinine assay has traceable calibration to isotope dilution- mass spectrometry. Refer to KDIGO guidelines for clinical interpretation. In patients with unstable renal function, e.g. those with acute kidney injury, the eGFRmay not accurately reflect actual GFR. eGFR- Date [...] information regarding radiation safety can be found usingthis link: [email or web address] SIGNATURE: FLIP Limon) PATIENT NAME: Lata Smith DATE: March 09, 2025 TIME: 11:53 AM PAGER/CONTACT #: documented in this encounterAcmc Healthcare [facility]06-02-2025 Miscellaneous Notes* Addendum Note - Geronimo Beard RT(R) - 03/09/2025 12:30 PM EDTEncounter addended by: Geronimo Beard RT(R) on: 03/09/2025 12:09 PM Actions taken: Allergies reviewed documented in this encounterAcmc Healthcare [facility]06-02-2025 Note* Addendum Note - Geronimo Beard RT(R) - 03/09/2025 12:30 PM EDTEncounter addended by: Geronimo Beard RT(R) on: 03/09/2025 12:09 PM Actions taken: Allergies reviewed [facility]06-02-2025 NoteHNO ID: [id number] Author: GERONIMO BEARD RT(R) Service: Nuclear Medicine Author Type: Technologist Type: [...] PATIENT PRESENTS WITH AN IMPLANTABLE OR ATTACHED CRUSHING FOREMAN: No CREATININE: Creatinine Date Value Ref Range [...] 1148 PATIENT DISCHARGED TO: Ambulatory patient, left [place] department area. Is this a therapy: No A Diagnostic radioactive procedure has taken place, with no further precautions necessary other than routine body substance precautions. More information regarding radiation safety can be found using this link: [email or web address] SIGNATURE: RT Ashly(R) PATIENT NAME: Lata Smith DATE: March 09, 2025 TIME: 11:53 AM PAGER[facility]CONTACT [phone] History of Present illness Narrative* Fiona Durant MD - 02/25/2025 11:21 AM EDT This note was created using [employer]. Subjective Lata Smith is a 64 year old female. Patient presents with: Follow Up: 3 month follow up- med refills needed Lata is a 64-year-old female with a history of migraines, presenting for a 3- month follow-up and medication refills. Lata reports an [...] not currently using Flonase routinely. Additionally, she notesthat her eyes sometimes produce thick tears. She [...] 2 Puffs as instructed every 4 hours asneeded for Wheezing/Shortness of Breath. Do not replace [...] by mouth four times daily. 1tsp swish inmouth for several minutes, then swallow (or expectorate) [...] Inhale 1 Puff as instructed two times aday. RINSE AND GARGLE MOUTH WITH WATER AFTER [...] in one nostril as needed for overdose. Mayrepeat every 2 to 3 min in alternating [...] as needed (upper extremity joint(s)). simethicone, chewable (OR-ACID GAS RELIEF,SIMETHICON,) 80 mg chewable tablet Take 1 tablet by mouthevery 6 hours as needed. traZODone (DESYREL) 50 mg tablet Take 1 tablet by mouth at bedtime as needed. senna (SENOKOT) 8.6 mg tab Take 2 tablets by mouth twice daily. oxyCODONE-acetaminophen (PERCOCET) 7.5-325 mg tablet Take 1 tablet by mouth every 8 hours as neededfor pain. rizatriptan (MAXALT) 10 mg tablet Take [...] eye drops. # Coronary artery disease involving koi coronary artery of koi heart without angina pectoris (I25.10) - Clinically [...] for May and September. # History of OR (myocardial infarction) (I25.2) - Clinically stable. - Continue current medications: losartan, rosuvastatin, and verapamil. Fiona Durant MD Recording using [employer] software for draft documentation of the visit was discussed with the patient/authorized factory representative; all questions welcomed and answered. Patient/authorized factory representative agreed to proceed documented in this encounterAcmc [facility]05-02-2025 Telephone encounter Note * Telephone Encounter - Maylin Haley - 02/06/2025 2:46 PM EDT Spoke with patient and scheduled Pet Scan at [place] on 03/09 Maylin Haley [facility]05-02-2025 Miscellaneous Notes* Telephone Encounter - Maylin Haley - 02/06/2025 2:46 PM EDT Spoke with patient and scheduled Pet Scan at [place] on 03/09 Maylin Haley * Telephone Encounter - Christina Amaro RN - 02/06/2025 1:[address] Burgess is ok with March 09. Oneida Amaro RN * Telephone Encounter - Telly Duncan DO - 02/05/2025 4:[address] Burgess's patient. Telly Duncan DO * Telephone Encounter - Maylin Haley - 02/05/2025 3:58 PM EDT Patient called back to schedule. Patient will only travel to [place]. Next opening isn't till March 09, Please advise * Telephone Encounter - Shahnaz Rosa - 02/05/2025 10:14 AM EDT LVM for pt to call back and schedule PET and OV. Shahnaz Rosa * Telephone Encounter - Maylin Haley - 02/04/2025 4:34 PM EDT PET scan in approx 2 weeks. Back to see me with next treatment to review PET results documented in this encounterAcmc [facility]05-02-2025 Telephone encounter Note * Telephone Encounter - Christina Amaro RN - 02/06/2025 1:[address] Burgess is ok with March 09. Oneida Amaro RN [facility] Work Phone: 1(362) 398-895005-01-2025 Telephone encounter Note* Telephone Encounter - Telly Duncan DO - 02/05/2025 4:[address] Burgess's patient. Telly Duncan DO [facility]05-01-2025 Telephone encounter Note* Telephone Encounter - Maylin Haley - 02/05/2025 3:58 PM EDT Patient called back to schedule. Patient will only travel to [place]. Next opening isn't till March 09, Please advise [facility]05-01-2025 Telephone encounter Note* Telephone Encounter - Shahnaz Rosa - 02/05/2025 10:14 AM EDT LVM for pt to call back and schedule PET and OV. Shahnaz Rosa [facility]04-30-2025 Telephone encounter Note* Telephone Encounter - Maylin Haley - 02/04/2025 4:34 PM EDT PET scan in approx 2 weeks. Back to see me with next treatment to review PET results [facility]04-30-2025 History of Present illness Narrative* Sandoval Burgess MD - 02/04/2025 2:58 PM EDT (Elements copied from my note dated December [...] on her right side of her chest forcouple months. Her staging PET scan on 08/03/2020 unfortunately showed metastatic disease. She had bronchoscopy and EBUS biopsy of the mediastinal lymph node on 08/19/2020. Biopsy was consistent withnon-small cell, favoring adenocarcinoma the lung. She is [...] by med onc and rad onc at [facility], their review suggests stability of disease, they recommend observation, possible SBRT to lung if we see further growth of right lung nodule. PET scan from ,07-01 we see progression in chest, new thoracic spine metastasis Reviewed [employer] results, no actionable mutations applicable to non small cell lung cancer. Here for follow up, cycle 2 planned. Bad experience with cycle 1, was in bed for a month with ftugue, no energy, no appetite. Nausea butno vomiting. Now eating well. Carboplatin stopped, continuing [...] by mouth four times daily. 1tsp swish inmouth for several minutes, then swallow (or expectorate) [...] Inhale 1 Puff as instructed two times aday. RINSE AND GARGLE MOUTH WITH WATER AFTER EACH USE. umeclidinium (INCRUSE ELLIPTA) 62.5 mcg/actuation inhaler Inhale 1 Puff as instructed once daily. multivitamin tablet Take 1 tablet by mouth once daily. losartan (COZAAR) 25 mg tablet Take 1 tablet by mouth once daily. naloxone 4 mg/actuation nasal spray (NARCAN) Use 1 spray in one nostril as needed for overdose. Mayrepeat every 2 to 3 min in alternating nostrils until medical assistance is available albuterol (PROVENTIL) 2.5 mg /3 mL (0.083 %) nebulizer solution Use 3 mL via nebulizer every 6 hours as needed for wheezing/shortness of breath. 1 vial contains 3 ml. albuterol HFA (VENTOLIN HFA) 90 mcg/actuation inhaler Inhale 2 Puffs as instructed every 4 hours asneeded for Wheezing/Shortness of Breath. Do not replace [...] tablet by mouth once daily. simethicone, chewable (OR-ACID GAS RELIEF,SIMETHICON,) 80 mg chewable tablet Take 1 tablet by mouthevery 6 hours as needed. traZODone (DESYREL) 50 [...] tablet by mouth every 8 hours as neededfor pain. rizatriptan (MAXALT) 10 mg tablet Take [...] which included preparing to see the patient, [id number] patient care, completing clinical documentation, obtaining and/or reviewing separately obtained history, performing a medically appropriate examination, counseling and educating the pat ient/family/caregiver, independently interpreting results (not separately reported), and communicating results to the patient/family/caregiver. Also review of images, plan discussed with wound care technician, nursing. Electronically Signed: Sandoval Burgess MD February 04, 2025 documented in this encounterAcmc Healthcare [facility]04-24-2025 Evaluation note* Diagnosis Onset Date Resolution Status Admit Date Hyperlipidemia acute January 1:52pm Essential hypertension chronic Ap 2024 1:52pm History of coronary artery stent placement October 09, 2019 chronic January 29 1:52pm Metastatic lung carcinoma acute April 27, 2025 9:19pm Pneumonia acute April 27 9:19pm Sepsis acute April 27 9:19pm [facility] Work Phone: 1(345) 992-513904-09-2025 History of Present illness Narrative* Leigh Saul RN - 01/14/2025 1:02 PM EDT Pt stated no changes to assessment from OV yesterday. Leigh Saul RN documented in this encounterAcmc Healthcare [facility]04-08-2025 History of Present illness Narrative* Carrie Preciado APRN.JAYLON - 01/13/2025 1:48 PM EDT Chief Complaint Patient presents with: Established Patient [...] on her right side of her chest forcouple months. Her staging PET scan on 08/03/2020 unfortunately showed metastatic disease. She had bronchoscopy and EBUS biopsy of the mediastinal lymph node on 08/19/2020. Biopsy was consistent withnon-small cell, favoring adenocarcinoma the lung. She is [...] by med onc and rad onc at [facility], their review suggests stability of disease, they recommend observation, possible SBRT to lung if we see further growth of right lung nodule. PET scan from ,07-01 we see progression [...] with ftugue, no energy, no appetite. Nausea butno vomiting. Now eating well. CLINICAL IMPRESSION: Adenocarcinoma [...] 1.00 - 4.00 k/uL 1.33 1.55 1.37 Grimes% % 6.5 7.2 8.8 Abs Grimes <0.87 k/uL 0.53 0.66 0.67 Eosin% % [...] visit. Carrie Preciado APRN.JAYLON documented in this encounterAcmc [facility]03-20-2025 History of Present illness Narrative* Daily Lincoln RN - 12/25/2024 1:28 PM EDT Assessment unchanged from Dr Burgess office visit on 12/24/24 documented in this encounterAcmc [facility]03-19-2025 History of Present illness Narrative* Sandoval Burgess MD - 12/24/2024 1:51 PM EDT (Elements copied from my note dated November [...] on her right side of her chest forcouple months. Her staging PET scan on 08/03/2020 unfortunately showed metastatic disease. She had bronchoscopy and EBUS biopsy of the mediastinal lymph node on 08/19/2020. Biopsy was consistent withnon-small cell, favoring adenocarcinoma the lung. She is [...] by med onc and rad onc at [facility], their review suggests stability of disease, they recommend observation, possible SBRT to lung if we see further growth of right lung nodule. PET scan from ,07-01 we see progression [...] with ftugue, no energy, no appetite. Nausea butno vomiting. Now eating well. CLINICAL IMPRESSION: Adenocarcinoma [...] by mouth four times daily. 1tsp swish inmouth for several minutes, then swallow (or expectorate) [...] Inhale 1 Puff as instructed two times aday. RINSE AND GARGLE MOUTH WITH WATER AFTER EACH USE. umeclidinium (INCRUSE ELLIPTA) 62.5 mcg/actuation inhaler Inhale 1 Puff as instructed once daily. multivitamin tablet Take 1 tablet by mouth once daily. losartan (COZAAR) 25 mg tablet Take 1 tablet by mouth once daily. naloxone 4 mg/actuation nasal spray (NARCAN) Use 1 spray in one nostril as needed for overdose. Mayrepeat every 2 to 3 min in alternating nostrils until medical assistance is available albuterol (PROVENTIL) 2.5 mg /3 mL (0.083 %) nebulizer solution Use 3 mL via nebulizer every 6 hours as needed for wheezing/shortness of breath. 1 vial contains 3 ml. albuterol HFA (VENTOLIN HFA) 90 mcg/actuation inhaler Inhale 2 Puffs as instructed every 4 hours asneeded for Wheezing/Shortness of Breath. Do not replace [...] tablet by mouth once daily. simethicone, chewable (OR-ACID GAS RELIEF,SIMETHICON,) 80 mg chewable tablet Take 1 tablet by mouthevery 6 hours as needed. traZODone (DESYREL) 50 [...] tablet by mouth every 8 hours as neededfor pain. rizatriptan (MAXALT) 10 mg tablet Take [...] FIRST DAY, THEN ONE TAB DAILY FOR 4DAYS. (Patient not taking: Reported on 12/01/2024) blood [...] which included preparing to see the patient, [id number] patient care, completing clinical documentation, obtaining and/or reviewing separately obtained history, performing a medically appropriate examination, counseling and educating the pat ient/family/caregiver, independently interpreting results (not separately reported), and communicating results to the patient/family/caregiver. Also review of images, plan discussed with wound care technician, nursing. Electronically Signed: Sandoval Burgess MD December 24, 2024 documented in this encounterAcmc Healthcare [facility]02-27-2025 History of Present illness Narrative* Leigh Saul, RN - 12/04/2024 1:40 PM EST During assessment pt stated she feels horrible [...] occur. Leigh Saul RN documented in this encounterAcmc Healthcare [facility]02-24-2025 Instructions* Patient Instructions* Fiona Durant MD - 12/01/2024 5:52 PM [...] appointment in 3 months. documented in this encounterAcmc Healthcare [facility]02-24-2025 History of Present illness Narrative* Fiona Durant MD - 12/01/2024 5:34 PM EST This note was created using [facility]. Subjective Lata Smith is a 64 year [...] slightly green sputum. She notes that her daycare provider, Dr. Burgess, has been managing her respiratory symptoms. Lata was scheduled for a chemotherapy treatment 2 weeks ago but postponed it due to dyspnea. She was prescribed another course of steroids and antibiotics at that time, which she reports improved her breathing. She is scheduled for her next chemotherapy session on the and plans to discuss herongoing respiratory symptoms with her oncologist. Lata reports a weight loss of 14 lbs following her last chemotherapy session, with a recent gain of 1 lb. She attributes the weight loss to a decreased appetite and increased sleep duration of 11-14hours per day for almost 3 weeks post-treatment. [...] Asthma Cancer of trachea, bronchus, and lung ([facility]) 09/03/2020 COPD (chronic obstructive pulmonary disease) ([facility]) Degeneration of intervertebral disc, site unspecified Depressive [...] FIRST DAY, THEN ONE TAB DAILY FOR 4DAYS. (Patient not taking: Reported on 12/01/2024) folic acid 1 mg tablet Take 1 tablet by mouth once daily. potassium chloride (KLOR-CON) 20 mEq packet Take 20 mEq by mouth two times a day. fluticasone-salmeterol (ADVAIR DISKUS) 500-50 mcg/dose dsdv Inhale 1 Puff as instructed two times aday. RINSE AND GARGLE MOUTH WITH WATER AFTER [...] in one nostril as needed for overdose. Mayrepeat every 2 to 3 min in alternating nostrils until medical assistance is available albuterol (PROVENTIL) 2.5 mg /3 mL (0.083 %) nebulizer solution Use 3 mL via nebulizer every 6 hours as needed for wheezing/shortness of breath. 1 vial contains 3 ml. albuterol HFA (VENTOLIN HFA) 90 mcg/actuation inhaler Inhale 2 Puffs as instructed every 4 hours asneeded for Wheezing/Shortness of Breath. Do not replace [...] tablet by mouth once daily. simethicone, chewable (OR-ACID GAS RELIEF,SIMETHICON,) 80 mg chewable tablet Take 1 tablet by mouthevery 6 hours as needed. traZODone (DESYREL) 50 [...] by mouth four times daily. 1tsp swish inmouth for several minutes, then swallow (or expectorate) 4 times daily until gone. senna (SENOKOT) 8.6 mg tab Take 2 tablets by mouth twice daily. oxyCODONE-acetaminophen (PERCOCET) 7.5-325 mg tablet Take 1 tablet by mouth every 8 hours as neededfor pain. rizatriptan (MAXALT) 10 mg tablet Take [...] bronchitis with chronic obstructive pulmonary disease (COPD) ([facility]) ([facility]) (J44.0) - Recent upper respiratory infection treated [...] lobe of right lung (HCC) (C34.31) - Undergoing chemotherapy with pembrolizumab and [...] treatments. Fiona Durant MD documented in this encounterAcmc Healthcare [facility]02-19-2025 Telephone encounter Note * Telephone Encounter - Kim Augustine - 11/26/2024 4:13 PM EST Schedule updated. Message left for patient to contact office to confirm appt date/time. Per clinical with same day lab, treatment no later than 1:00, patient will need to arrive at 1230 for lab. [facility] Work Phone: 1(279) 626-718602-19-2025 Miscellaneous Notes* Telephone Encounter - Kim Augustine - 11/26/2024 4:13 PM EST Schedule updated. Message left for patient to contact office to confirm appt date/time. Per clinical with same day lab, treatment no later than 1:00, patient will need to arrive at 1230 for lab. * Telephone Encounter - Mahi Pham RN - 11/26/2024 3:36 PM EST Pt states she is finally feeling better [...] done prior, 2hr time slot is OK. * Telephone Encounter - Kim Augustine - 11/26/2024 3:02 PM EST Patient called asking if she could delay treatment for one more week. Please advise. * Telephone Encounter - Mahi Pham RN - 11/26/2024 11:15 AM EST F/u to 11/21 phone note. Pt states she is having her tooth removed today. Spoke to Dr. Burgess-he said it is still OK forher to have her treatment tomorrow. Pt stated understanding. documented in this encounterAcmc Healthcare [facility]02-19-2025 Telephone encounter Note * Telephone Encounter - Mahi Pham RN - 11/26/2024 3:36 PM EST Pt states she is finally feeling better [...] done prior, 2hr time slot is OK. [facility]02-19-2025 Telephone encounter Note* Telephone Encounter - Kim Augustine - 11/26/2024 3:02 PM EST Patient called asking if she could delay treatment for one more week. Please advise. [facility]02-19-2025 Telephone encounter Note* Telephone Encounter - Mahi Pham RN - 11/26/2024 11:15 AM EST F/u to 11/21 phone note. Pt states she is having her tooth removed today. Spoke to Dr. Burgess-he said it is still OK forher to have her treatment tomorrow. Pt stated understanding. [facility]02-19-2025 Telephone encounter Note* Telephone Encounter - Mahi Pham RN - 11/26/2024 11:13 AM EST Spoke to pt. She refuses to receive K+ IV. She is aware of how low it is, but stated she will neverreceive K+ peripherally. Reminded her to make sure she is taking her PO K+ bid. Pt stated understanding. Addie Carbajal is aware. [facility]02-19-2025 Miscellaneous Notes* Telephone Encounter - Mahi Pham RN - 11/26/2024 11:13 AM EST Spoke to pt. She refuses to receive K+ IV. She is aware of how low it is, but stated she will neverreceive K+ peripherally. Reminded her to make sure she is taking her PO K+ bid. Pt stated dorita. Addie Carbajal is aware. * Telephone Encounter - Floresita Carbajal - 11/25/2024 12:50 PM EST K 2.7 - Results from 09/18 forwarded to me today 11/25 at 11:31. Called patient - no answer LVM to return call to office. Would like to replace with IV BRITTANY. I knowshe has been hesitant in the past but it is dangerously low. Can lead to heart arrhythmias. Should at least be taking PO twice daily. If agreeable, can we add her on for IV potassium today? Would plan to recheck and possibly replace on 11/27 while she is here for treatment. Floresita Carbajal APRN.ENERGY EFFICIENT SITE MANAGER documented in this encounterAcmc Healthcare [facility]igh02-18-2025 Telephone encounter Note * Telephone Encounter - Floresita Carbajal - 11/25/2024 12:50 PM EST K 2.7 - Results from 09/18 forwarded to me today 11/25 at 11:31. Called patient - no answer LVM to return call to office. Would like to replace with IV BRITTANY. I knowshriki has been hesitant in the past but it is dangerously low. Can lead to heart arrhythmias. Should at least be taking PO twice daily. If agreeable, can we add her on for IV potassium today? Would plan to recheck and possibly replace on 11/27 while she is here for treatment. Floresita Carbajal APRN.ENERGY EFFICIENT SITE MANAGER [facility]02-14-2025 Telephone encounter Note* Telephone Encounter - Christina Amaro RN - 11/21/2024 11:49 AM EST Jose Raul Care Coordination FOLLOW-UP NOTE Patient identified by name and date of . YES Spoke to patient Summary: (Reason for follow-up) Call to patient for update on symptoms. She states she just started Medrol dose pk today and thinksshe is feeling a little better. She denies [...] and an understanding of after- hours phone numberand process: Yes Care Coordination Plan: No further follow up needed at this time and she will call if symptoms not responding to Medrol dose pack. Christina Amaro RN November 21, 2024 [facility] Work Phone: [phone]) 174-893102-14-2025 Miscellaneous Notes* Telephone Encounter - Christina Amaro RN - 11/21/2024 11:49 AM EST Jose Raul Care Coordination FOLLOW-UP NOTE Patient identified by name and date of . YES Spoke to patient Summary: (Reason for follow-up) Call to patient for update on symptoms. She states she just started Medrol dose pk today and thinksshe is feeling a little better. She denies [...] and an understanding of after- hours phone numberand process: Yes Care Coordination Plan: No further follow up needed at this time and she will call if symptoms not responding to Medrol dose pack. Christina Amaro RN November 21, 2024 documented in this encounterAcmc Healthcare [facility]02-12-2025 Telephone encounter Note * Telephone Encounter - Fifi Morel - 11/19/2024 5:08 PM EST I called and spoke to Lata daughter and confirmed next week appointment for 1:00 pm for lab work and 1:30 pm for treatment. The rest of her schedule has been updated also Fifi Her [facility]02-12-2025 Miscellaneous Notes* Telephone Encounter - Fifi Morel - 11/19/2024 5:08 PM EST I called and spoke to Lata daughter and confirmed next week appointment for 1:00 pm for lab work and 1:30 pm for treatment. The rest of her schedule has been updated also Fifi Her * Telephone Encounter - Christina Amaro RN - 11/19/2024 4:36 PM EST Patient returned call, left VM on my phone. She would like to cancel chemo treatment for tomorrow and reschedule for next week. Oneida Amaro RN PSS: Please cancel treatment for tomorrow and reschedule for next week, will needs labs repeated prior. Please call patient with date/time. Oneida Amaro RN * Telephone Encounter - Christina Amaro RN - 11/19/2024 3:54 PM EST Call to patient, no answer, left a detailed message with information from Dr. Burgess regarding results, RX and ok to treat tomorrow. Asked patient to call back in to let me know that she receivedthe message and if she plans to come in tomorrow for tx. Oneida Amaro RN * Telephone Encounter - Christina Amaro RN - 11/19/2024 3:50 PM EST Images from the original note were not included. documented in this encounterAcmc Healthcare [facility]02-12-2025 Telephone encounter Note * Telephone Encounter - Christina Amaro RN - 11/19/2024 4:36 PM EST Patient returned call, left VM on my phone. She would like to cancel chemo treatment for tomorrow and reschedule for next week. Oneida Amaro RN PSS: Please cancel treatment for tomorrow and reschedule for next week, will needs labs repeated prior. Please call patient with date/time. Oneida Amaro RN [facility] Work Phone: 1(917) 349-402102-12-2025 Telephone encounter Note* Telephone Encounter - Christina Amaro RN - 11/19/2024 3:54 PM EST Call to patient, no answer, left a detailed message with information from Dr. Burgess regarding results, RX and ok to treat tomorrow. Asked patient to call back in to let me know that she receivedthe message and if she plans to come in tomorrow for tx. Oneida Amaro RN [facility]02-12-2025 Telephone encounter Note* Telephone Encounter - Christina Amaro RN - 11/19/2024 3:50 PM EST Images from the original note were not included. [facility]02-12-2025 History of Present illness Narrative* Areli Mccoy, RT(R) - 11/19/2024 2:45 PM EST Radiology Service Progress Note DATE OF SERVICE: [...] Assigned female at . status: : No status:NO. PATIENT RELEVANT IMPLANT DATA REVIEWED: Yes PATIENT PRESENTS WITH AN IMPLANTABLE OR ATTACHED CRUSHING FOREMAN: No ALLERGIES: Reviewed and unchanged CONTRAST ALLERGY: [...] creatinine assay has traceable calibration to isotope dilution- mass spectrometry. Refer to KDIGO guidelines for clinical interpretation. In patients with unstable renal function, e.g. those with acute kidney injury, the eGFRmay not accurately reflect actual GFR. eGFR- Date Value Ref Range Status 11/22/2021 >60 Final P.O.C.T. RESULTS: POC done: Yes, See Lab Tab November 19, 2024 TREATMENT: N/A PERIPHERAL IV DATA: Ambulatory: A peripheral IV was started in the Left antecubital site with a Angio cath: 18 gauge. RADIOLOGY DEPARTMENT: CT; Exam(s) Completed: PE Study SIGNATURE: RT Pete(R) PATIENT NAME: Lata Smith DATE: November 19, 2024 TIME: 3:59 PM documented in this encounterAcmc Healthcare [facility]02-12-2025 History of Present illness Narrative* Sandoval Burgess MD - 11/19/2024 12:49 PM EST (Elements copied from my note dated October 23, 2024, have been reviewed and updated where appropriate, and all reflect current assessment and medical decision making from today's encounter, 2024) HISTORY OF PRESENT ILLNESS: Lata Smith [...] on her right side of her chest forcouple months. Her staging PET scan on 08/03/2020 unfortunately showed metastatic disease. She had bronchoscopy and EBUS biopsy of the mediastinal lymph node on 08/19/2020. Biopsy was consistent withnon-small cell, favoring adenocarcinoma the lung. She is [...] by med onc and rad onc at [facility], their review suggests stability of disease, they recommend observation, possible SBRT to lung if we see further growth of right lung nodule. PET scan from ,07-01 we see progression [...] FIRST DAY, THEN ONE TAB DAILY FOR 4DAYS. folic acid 1 mg tablet Take 1 tablet by mouth once daily. potassium chloride (KLOR-CON) 20 mEq packet Take 20 mEq by mouth two times a day. fluticasone-salmeterol (ADVAIR DISKUS) 500-50 mcg/dose dsdv Inhale 1 Puff as instructed two times aday. RINSE AND GARGLE MOUTH WITH WATER AFTER [...] in one nostril as needed for overdose. Mayrepeat every 2 to 3 min in alternating nostrils until medical assistance is available albuterol (PROVENTIL) 2.5 mg /3 mL (0.083 %) nebulizer solution Use 3 mL via nebulizer every 6 hours as needed for wheezing/shortness of breath. 1 vial contains 3 ml. albuterol HFA (VENTOLIN HFA) 90 mcg/actuation inhaler Inhale 2 Puffs as instructed every 4 hours asneeded for Wheezing/Shortness of Breath. Do not replace [...] tablet by mouth once daily. simethicone, chewable (OR-ACID GAS RELIEF,SIMETHICON,) 80 mg chewable tablet Take 1 tablet by mouthevery 6 hours as needed. traZODone (DESYREL) 50 [...] by mouth four times daily. 1tsp swish inmouth for several minutes, then swallow (or expectorate) 4 times daily until gone. senna (SENOKOT) 8.6 mg tab Take 2 tablets by mouth twice daily. oxyCODONE-acetaminophen (PERCOCET) 7.5-325 mg tablet Take 1 tablet by mouth every 8 hours as neededfor pain. rizatriptan (MAXALT) 10 mg tablet Take [...] which included preparing to see the patient, [id number] patient care, completing clinical documentation, obtaining and/or reviewing separately obtained history, performing a medically appropriate examination, counseling and educating the pat ient/family/caregiver, independently interpreting results (not separately reported), and communicating results to the patient/family/caregiver. Also review of images, plan discussed with wound care technician, nursing. Electronically Signed: Sandoval Burgess MD November 19, 2024 documented in this encounterAcmc Healthcare System Glen[facility]igh02-12-2025 History of Present illness Narrative* Kim Beck, RT(R) - 11/19/2024 12:00 PM EST Radiology Service Progress Note PATIENT NAME: Lata Smith DATE OF SERVICE: November 19, 2024 TIME: 1:51 PM PATIENT IDENTITY VERIFICATION COMPLETED USING TWO (2) IDENTIFIERS: Name and Date of confirmedby patient verbally. FALL SCREENING: Has the patient had 2 falls in the last year or 1 fall with injury or currently using an Ambulatory Assistive Device (Walker, Cane, Wheelchair, Crutches, etc.)? Yes, Patient High Riskfor Falls What interventions were put in place to prevent falls during this visit? Increased Observations by Caregivers PATIENT GENDER DATA: Assigned female at . status: : No status:NO. PATIENT RELEVANT IMPLANT DATA REVIEWED: Not Applicable PATIENT PRESENTS WITH AN IMPLANTABLE OR ATTACHED CRUSHING FOREMAN: No RADIOLOGY DEPARTMENT: General X-ray: Exam(s) Completed: Chest X-Ray PERIPHERAL IV DATA: Not applicable SIGNED BY: Kim Beck RT(R) November 19, 2024 1:51 PM documented in this encounterAcmc Healthcare [facility]02-11-2025 Telephone encounter Note * Telephone Encounter - Christina Amaro RN - 11/18/2024 1:33 PM EST Patient returned call. Aware of message from Dr. Burgess. She agrees she will go to the ED with any worsening/concerning symptoms. She will come in earlier tomorrow to get CXR. Oneida Amaro RN [facility]02-11-2025 Miscellaneous Notes* Telephone Encounter - Christina Amaro RN - 11/18/2024 1:33 PM EST Patient returned call. Aware of message from Dr. Burgess. She agrees she will go to the ED with any worsening/concerning symptoms. She will come in earlier tomorrow to get CXR. Oneida Amaro RN * Telephone Encounter - Christina Amaro RN - 11/18/2024 1:[address] Burgess would like to get a CXR tomorrow prior to OV. Patient to go to the ED between now and then for any worsening symptoms. Oneida Amaro RN Call to patient, no answer, left message to return call to me. Oneida Amaro RN * Telephone Encounter - Christina Amaro RN - 11/18/2024 11:00 AM EST [facility] Coordination FOLLOW-UP NOTE Patient identified by name and date of . YES Spoke to patient Summary: (Reason for follow-up) Call to patient for follow up from previous call regarding productive cough, shortness of breath. States not good and that she feels more short of breath. She walks 10 feet from bed to bathroom andhas to catch her breath. She denies fevers, pain. Continues with productive cough, light green, same as before but she does state that her cough is better. She has been checking Sp02 and runs [id number] She is using her inhalers and doesn't [...] and an understanding of after- hours phone numberand process: Yes Care Coordination Plan: Will follow up with Dr. Burgess with update and call back with further instructions. Christina Amaro RN November 18, 2024 documented in this encounterAcmc Healthcare System [facility]02-11-2025 Telephone encounter Note * Telephone Encounter - Christina Amaro RN - 11/18/2024 1:[address] Burgess would like to get a CXR tomorrow prior to OV. Patient to go to the ED between now and then for any worsening symptoms. Oneida Amaro RN Call to patient, no answer, left message to return call to me. Oneida Amaro RN [facility]02-11-2025 Telephone encounter Note* Telephone Encounter - Christina Amaro RN - 11/18/2024 11:00 AM EST Jose Raul Care Coordination FOLLOW-UP NOTE Patient identified by name and date of . YES Spoke to patient Summary: (Reason for follow-up) Call to patient for follow up from previous call regarding productive cough, shortness of breath. States not good and that she feels more short of breath. She walks 10 feet from bed to bathroom andhas to catch her breath. She denies fevers, pain. Continues with productive cough, light green, same as before but she does state that her cough is better. She has been checking Sp02 and runs [id number] She is using her inhalers and doesn't [...] and an understanding of after- hours phone numberand process: Yes Care Coordination Plan: Will follow up with Dr. Burgess with update and call back with further instructions. Christina Amaro RN November 18, 2024 [facility]-07-[facility]25 Telephone encounter Note* Telephone Encounter - Mckenzie Jones RN - 11/14/2024 3:33 PM EST Care Coordination Triage Note [facility] [...] Son had bronchitis. Son did not get testedfor respiratory illnesses. COUGH Do you have a [...] Burgess. He will send an antibiotic to [facility] in [place]. If patient has worsening symptoms, she should go to the ED. Patient was informed of Dr. Burgess's response and stated understanding. Mckenzie Jones RN November 14, 2024 3:33 PM [facility]02-07-2025 Miscellaneous Notes* Telephone Encounter - Mckenzie Jones RN - 11/14/2024 3:33 PM EST Care Coordination Triage Note [facility] [...] Son had bronchitis. Son did not get testedfor respiratory illnesses. COUGH Do you have a [...] Burgess. He will send an antibiotic to [facility] in [place]. If patient has worsening symptoms, she should go to the ED. Patient was informed of Dr. Burgess's response and stated understanding. Mckenzie Jones RN November 14, 2024 3:33 PM * Telephone Encounter - Maylin Haley - 11/14/2024 2:17 PM EST Patient called stating Since last chemo treatment she's been light headed, diarrhea, upset stomach, fatigue and a cough that won't go away. Please call patient when able Maylin Haley documented in this encounterAcmc Healthcare [facility]02-07-2025 Telephone encounter Note * Telephone Encounter - Maylin Haley - 11/14/2024 2:17 PM EST Patient called stating Since last chemo treatment she's been light headed, diarrhea, upset stomach, fatigue and a cough that won't go away. Please call patient when able Maylin Haley [facility]01-31-2025 Telephone encounter Note* Telephone Encounter - Christina Amaro RN - 11/07/2024 3:26 PM EST TOXICITY CHECK SYMPTOM ASSESSMENT The patient is [...] after hours number protocol. Christina Amaro RN [facility] Work Phone: 1(974) 888-819301-31-2025 Miscellaneous Notes* Telephone Encounter - Christina Amaro RN - 11/07/2024 3:26 PM EST TOXICITY CHECK SYMPTOM ASSESSMENT The patient is [...] protocol. Christina Amaro RN documented in this encounterAcmc Healthcare [facility]igh01-24-2025 Telephone encounter Note * Telephone Encounter - Christina Amaro RN - 10/31/2024 12:05 PM EST CYCLE 1/DAY 1 POST TREATMENT CALL Today's [...] after hours number protocol. Christina Amaro RN [facility] Work Phone: 1(427) 902-257301-24-2025 Miscellaneous Notes* Telephone Encounter - Christina Amaro RN - 10/31/2024 12:05 PM EST CYCLE 1/DAY 1 POST TREATMENT CALL Today's [...] protocol. Christina Amaro RN documented in this encounterAcmc Healthcare System [facility]igh01-23-2025 History of Present illness Narrative* Ta Pillai RN - 10/30/2024 9:43 AM EST K 2.9, Dr. Burgess aware. Pt is [...] alimta. Pt verbalized understanding. documented in this encounterAcmc Healthcare [facility]01-20-2025 History of Present illness Narrative* Christina Amaro RN - 10/27/2024 12:05 PM EST Patient teaching was completed over the phone. Christina Amaro RN Jacquard Loom Weaver Pre Chemo Patient identified by name and date of . YES Confirmed date and time for chemotherapy ? YES Other appointments (labs, imaging) discussed? YES Discussed where to park (case resolution specialist), charge for parking YES Discussed where to [...] treatment. YES Other topics discussed, interventions needed: javi Amaro RN ONCOLOGY PATIENT EDUCATION NOTE TOPIC: [...] patient, which included the importance of reporting anyfever of 100.4F (38.0C) or greater to the healthcare team as noted on the provided wallet card and/or magnet. YES Time Spent: 45 minutes\ REFERRAL (RECOMMENDATION): N/A Christina Amaro RN documented in this encounterAcmc Healthcare [facility]01-16-2025 Telephone encounter Note * Telephone Encounter - Maylin Haley - 10/23/2024 3:50 PM EST Scheduled patient as directed Maylin Haley [facility]01-16-2025 Miscellaneous Notes* Telephone Encounter - Maylin Haley - 10/23/2024 3:50 PM EST Scheduled patient as directed Maylin Haley * Telephone Encounter - Maylin Haley - 10/23/2024 12:08 PM EST Chemo Education - 10/27 Start Q3wk Carbo/Alimta, CBC/CMP,straight back to start CBC/CMP/OV with all other cycles Maylin Haley documented in this encounterAcmc Healthcare [facility]01-16-2025 Telephone encounter Note * Telephone Encounter - Christina Amaro RN - 10/23/2024 2:[address] Burgess completed/signed note from today faxed to number provided. Oneida Amaro RN [facility] Work Phone: 1(339) 944-495701-16-2025 Miscellaneous Notes* Telephone Encounter - Christina Amaro RN - 10/23/2024 2:[address] Burgess completed/signed note from today faxed to number provided. Oneida Amaro RN * Telephone Encounter - Mckenzie Jones RN - 10/17/2024 8:40 AM EST Received a call from Olga at [facility] two days ago regarding the plan for this patient. Spoke to Oneida who stated patient has an appointment with Dr. Burgess on 10/23/24 and the planwill be discussed at that time. Called [facility] and spoke to Corbin. Corbin is requesting that ouroffice fax over the office visit notes after that office visit so they are aware of the plan moving forward. Please fax to Corbin with [facility] at [phone] once complete. Thank you. Mckenzie Jones RN documented in this encounterAcmc Healthcare System Glen[facility]igh01-16-2025 Telephone encounter Note * Telephone Encounter - Maylin Haley - 10/23/2024 12:08 PM EST Chemo Education - 10/27 Start Q3wk Carbo/Alimta, CBC/CMP,straight back to start CBC/CMP/OV with all other cycles Maylin Haley [facility]01-16-2025 History of Present illness Narrative* Liza Canas RN - 10/23/2024 11:28 AM EST IRB#: [id number], [facility]# [id number]: A Randomized, Phase III Study of Firstline Immunotherapy alone or in Combination with Chemotherapy in Induction/Maintenance or Postprogression in Advanced Nonsquamous Non-Small Cell Lung Cancer (NSCLC) with Immunobiomarker SIGNature-driven Analysis IC signed 09/13/2020 Randomized 09/22/2020 to treatment arm A: 1st line [id number] (pembrolizumab) followed by 2nd line Pemetrexed/Carboplatin. Study ID: [id number] Patient off study treatment protocol 10/17/2022 CTD - 1 EDTA 10mL and 1 brown/black Streck Cell-Free DNA Tube 10 mL - collected at 11:05 AM peripheral blood draw - not processed Shipped via [employer] at room temp Tracking -[id number] Ship to: [facility] Central [facility] Pathology Facility [facility] Department of Pathology, [address] Tissue Qualification Laboratory for [facility], Room G1.[address] [place] [id number] PATRICIO Jacobson, RN, Clinical Research Nurse [phone] documented in this encounterAcmc Healthcare [facility]01-16-2025 History of Present illness Narrative* Sandoval Burgess MD - 10/23/2024 11:13 AM EST (Elements copied from my note dated September 30, 2024, have been reviewed and updated where appropriate, and all reflect current assessment and medical decision making from today's encounter, 2024) HISTORY OF PRESENT ILLNESS: Lata Smith [...] on her right side of her chest forcouple months. Her staging PET scan on 08/03/2020 unfortunately showed metastatic disease. She had bronchoscopy and EBUS biopsy of the mediastinal lymph node on 08/19/2020. Biopsy was consistent withnon-small cell, favoring adenocarcinoma the lung. She is [...] by med onc and rad onc at [facility], their review suggests stability of disease, they recommend observation, possible SBRT to lung if we see further growth of right lung nodule. Here for follow up, reviewed PET scan from ,07-01 we see progression in chest, new thoracic spinemetastasis Reviewed Guardant results, no actionable mutations applicable [...] Inhale 1 Puff as instructed two times aday. RINSE AND GARGLE MOUTH WITH WATER AFTER [...] 2 Puffs as instructed every 4 hours asneeded for Wheezing/Shortness of Breath. Do not replace [...] tablet by mouth once daily. simethicone, chewable (OR-ACID GAS RELIEF,SIMETHICON,) 80 mg chewable tablet Take 1 tablet by mouthevery 6 hours as needed. traZODone (DESYREL) 50 [...] by mouth four times daily. 1tsp swish inmouth for several minutes, then swallow (or expectorate) 4 times daily until gone. senna (SENOKOT) 8.6 mg tab Take 2 tablets by mouth twice daily. (Patient taking differently: Take 2tablets by mouth two times a day as needed.) oxyCODONE-acetaminophen (PERCOCET) 7.5-325 mg tablet Take 1 tablet by mouth every 8 hours as neededfor pain. rizatriptan (MAXALT) 10 mg tablet Take [...] in one nostril as needed for overdose. Mayrepeat every 2 to 3 min in alternating [...] which included preparing to see the patient, [id number] patient care, completing clinical documentation, obtaining and/or reviewing separately obtained history, performing a medically appropriate examination, counseling and educating the pat ient/family/caregiver, independently interpreting results (not separately reported), and communicating results to the patient/family/caregiver. Also review of images, plan discussed with wound care technician, nursing. Electronically Signed: Sandoval Burgess MD October 23, 2024 * Hoa Gaines LPN - 10/23/2024 11:05 AM EST Est. Pt. Discuss guardant results Hoa Gaines LPN documented in this encounterAcmc Healthcare System [facility]01-10-2025 Telephone encounter Note * Telephone Encounter - Mckenzie Jones RN - 10/17/2024 8:40 AM EST Received a call from Olga at [facility] two days ago regarding the plan for this patient. Spoke to Oneida who stated patient has an appointment with Dr. Burgess on 10/23/24 and the planwill be discussed at that time. Called [facility] and spoke to Corbin. Corbin is requesting that ouroffice fax over the office visit notes after that office visit so they are aware of the plan moving forward. Please fax to Corbin [employer] at [phone] once complete. Thank you. Mckenzie Jones, RN [facility]01-10-2025 History of Present illness Narrative* Liza Canas RN - 10/17/2024 8:24 AM EST RECIST TUMOR MEASUREMENTS IRB #: [id number] / [id number] Image Modality: PET Image Date: 09/15/2024 Date [...] Delayed read for RECIST documented in this encounterAcmc Healthcare System [facility]01-09-2025 Telephone encounter Note * Telephone Encounter - Kim Augustine - 10/16/2024 10:18 AM EST Scheduled with patient [facility] Work Phone: [phone]) 788-559201-09-2025 Miscellaneous Notes* Telephone Encounter - Kim Augustine - 10/16/2024 10:18 AM EST Scheduled with patient * Telephone Encounter - Liza Canas RN - 10/16/2024 10:09 AM EST Can we make sure she has a lab appointment with the OV? A clinical trial draw is needed. Thanks! * Telephone Encounter - Neda Carrillo - 10/16/2024 9:39 AM EST Called patient and left a vm to return our call * Telephone Encounter - Christina Amaro RN - 10/16/2024 9:[address] Burgess has reviewed patient Guardant lab results and would like to see patient to discuss options. Please call patient and schedule an OV with him this week or next. Oneida Amaro RN documented in this encounterAcmc Healthcare System [facility]igh01-09-2025 Telephone encounter Note * Telephone Encounter - Liza Canas RN - 10/16/2024 10:09 AM EST Can we make sure she has a lab appointment with the OV? A clinical trial draw is needed. Thanks! [facility]01-09-2025 Telephone encounter Note* Telephone Encounter - Neda Carrillo - 10/16/2024 9:39 AM EST Called patient and left a vm to return our call [facility]01-09-2025 Telephone encounter Note* Telephone Encounter - Christina Amaro RN - 10/16/2024 9:[address] Burgess has reviewed patient Guardant lab results and would like to see patient to discuss options. Please call patient and schedule an OV with him this week or next. Oneida Amaro RN [facility] Work Phone: [phone]) 140-481512-29-2024 History of Present illness Narrative* Dayton Arevalo PA-C - 10/05/2024 3:16 PM EST This note was created using [facility]. Subjective Lata Smith is a 63 year old female. Patient is a 63-year-old female who complains of worsening congestion, sinus pressure, ear pain andcough that she has been experiencing for the past 2 weeks. Patient denies fever, chills or myalgia.Patient does have a history of COPD and [...] TABLET Dayton Arevalo PA-C documented in this encounterAcmc Healthcare System Glenbeigh12-26-2024 History of Present illness Narrative* Chyna Vasquez RN - 10/02/2024 2:33 PM ESTSummary: Addendum Request for PET CT on 09/15/2024 CLINICAL TRIAL PATIENT- TO BE READ BY [facility] RADIOLOGIST Please see Abstract in EPIC Dated: 06/12/2024 RESEARCH [facility]#: [id number] TUMOR METRICS: RECIST 1.1 Follow-Up Measurement-Same Day Research Contact Information: Liza Canas Date of Baseline Scan: 09/15/2020 Date of Comparison Scan: 05/05/2024 Addendum documented in this encounterAcmc Healthcare System Glen[facility]igh12-24-2024 Telephone encounter Note * Telephone Encounter - Laurie Bazan LPN - 09/30/2024 11:[address] Burgess, patients potassium is low at 3.0. Per her med list she is not taking her potassium daily and Dr Burgess would like her to take daily for one week, then she can resume taking ever third day. I called pt, no answer, I did leave a detailed VM with these instructions, I will also send a [employer] message. She is coming on for her Guardant testing, I will make sure she received the message then too. Laurie Bazan LPN [facility]12-24-2024 Miscellaneous Notes* Telephone Encounter - Laurie Bazan LPN - 09/30/2024 11:[address] Burgess, patients potassium is low at 3.0. Per her med list she is not taking her potassium daily and Dr Burgess would like her to take daily for one week, then she can resume taking ever third day. I called pt, no answer, I did leave a detailed VM with these instructions, I will also send a [employer] message. She is coming on for her Guardant testing, I will make sure she received the message then too. Laurie Bazan LPN documented in this encounterAcmc Healthcare System [facility]igh12-24-2024 Telephone encounter Note * Telephone Encounter - Maylin Haley - 09/30/2024 11:38 AM EST Scheduled as directed Maylin Haley [facility]12-24-2024 Miscellaneous Notes* Telephone Encounter - Maylin Haley - 09/30/2024 11:38 AM EST Scheduled as directed Maylin Haley * Telephone Encounter - Laurie Bazan LPN - 09/30/2024 10:17 AM EST Please schedule lab apt 10/02/24 noon for Guardant testing. Pt aware of date/time. Kit at my desk, will take to lab when she arrives Laurie Bazan LPN documented in this encounterAcmc Healthcare System [facility]12-24-2024 Note* Addendum Note - Sandoval Burgess MD - 09/30/2024 11:15 AM ESTAddended by: SANDOVAL BURGESS on: 09/30/2024 11:15 AM Modules accepted: Orders [facility]12-24-2024 Miscellaneous Notes* Addendum Note - Sandoval Burgess MD - 09/30/2024 11:15 AM ESTAddended by: SANDOVAL BURGESS on: 09/30/2024 11:15 AM Modules accepted: Orders documented in this encounterAcmc Healthcare System [facility]12-24-2024 Telephone encounter Note * Telephone Encounter - Laurie Bazan LPN - 09/30/2024 10:17 AM EST Please schedule lab apt 10/02/24 noon for Guardant testing. Pt aware of date/time. Kit at my desk, will take to lab when she arrives Laurie Bazan LPN [facility]12-24-2024 Telephone encounter Note* Telephone Encounter - Mckenzie Jones RN - 09/30/2024 10:16 AM EST Met with patient. Patient was given a folder with chemocare information on carbo/alimta (IV chemo education site), office contact information, and additional chemotherapy resource sheets. No chemo edu scheduled at this time, will wait for guardant test to come back to determine the treatment plan. Mckenzie Jones RN [facility]12-24-2024 Miscellaneous Notes* Telephone Encounter - Mckenzie Jones RN - 09/30/2024 10:16 AM EST Met with patient. Patient was given a folder with chemocare information on carbo/alimta (IV chemo education site), office contact information, and additional chemotherapy resource sheets. No chemo edu scheduled at this time, will wait for guardant test to come back to determine the treatment plan. Mckenzie Jones RN documented in this encounterAcmc Healthcare System [facility]igh12-24-2024 History of Present illness Narrative* Sandoval Burgess MD - 09/30/2024 9:45 AM EST (Elements copied from my note dated August [...] on her right side of her chest forcouple months. Her staging PET scan on 08/03/2020 unfortunately showed metastatic disease. She had bronchoscopy and EBUS biopsy of the mediastinal lymph node on 08/19/2020. Biopsy was consistent withnon-small cell, favoring adenocarcinoma the lung. She is [...] by med onc and rad onc at [facility], their review suggests stability of disease, they recommend observation, possible SBRT to lung if we see further growth of right lung nodule. Here for follow up, reviewed PET scan from ,07-01 we see progression in chest, new thoracic spinemetastasis CLINICAL IMPRESSION: Adenocarcinoma of lung metastatic to [...] Inhale 1 Puff as instructed two times aday. RINSE AND GARGLE MOUTH WITH WATER AFTER [...] in one nostril as needed for overdose. Mayrepeat every 2 to 3 min in alternating nostrils until medical assistance is available albuterol (PROVENTIL) 2.5 mg /3 mL (0.083 %) nebulizer solution Use 3 mL via nebulizer every 6 hours as needed for wheezing/shortness of breath. 1 vial contains 3 ml. albuterol HFA (VENTOLIN HFA) 90 mcg/actuation inhaler Inhale 2 Puffs as instructed every 4 hours asneeded for Wheezing/Shortness of Breath. Do not replace [...] tablet by mouth once daily. simethicone, chewable (OR-ACID GAS RELIEF,SIMETHICON,) 80 mg chewable tablet Take 1 tablet by mouthevery 6 hours as needed. traZODone (DESYREL) 50 [...] by mouth four times daily. 1tsp swish inmouth for several minutes, then swallow (or expectorate) 4 times daily until gone. potassium chloride (KLOR-CON) 20 mEq packet Take 20 mEq by mouth twice daily. (Patient taking differently: Take 20 mEq by mouth two times a day. Taking 3 times per week.) senna (SENOKOT) 8.6 mg tab Take 2 tablets by mouth twice daily. (Patient taking differently: Take 2tablets by mouth two times a day as needed.) oxyCODONE-acetaminophen (PERCOCET) 7.5-325 mg tablet Take 1 tablet by mouth every 8 hours as neededfor pain. rizatriptan (MAXALT) 10 mg tablet Take [...] which included preparing to see the patient, [id number] patient care, completing clinical documentation, obtaining and/or reviewing separately obtained history, performing a medically appropriate examination, counseling and educating the pat ient/family/caregiver, independently interpreting results (not separately reported), and communicating results to the patient/family/caregiver. Also review of images, plan discussed with wound care technician, nursing. Electronically Signed: Sandoval Burgess MD September 30, 2024 documented in this encounterAcmc Healthcare [facility]12-09-2024 History of Present illness Narrative* Geronimo Beard, RT(R) - 09/15/2024 12:30 PM EST RADIOLOGY SERVICE PROGRESS NOTE SERVICE DATE: 09/15/2024 SERVICE TIME: 11:37 AM PATIENT IDENTITY VERIFICATION COMPLETED USING TWO (2) STANDARD IDENTIFIERS: Name and Date of confirmed by patient verbally FALL SCREENING: Has the patient had 2 falls in the last year or 1 fall with injury or currently using an Ambulatory Assistive Device (Walker, Cane, Wheelchair, Crutches, etc.)? Yes, Patient High Riskfor Falls What interventions were put in place to prevent falls during this visit? Increased Observations by Caregivers PATIENT GENDER DATA: .female ALLERGIES: NA MEDICATIONS REVIEWED: Not applicable PATIENT RELEVANT IMPLANT DATA REVIEWED: Not Applicable PATIENT PRESENTS WITH AN IMPLANTABLE OR ATTACHED CRUSHING FOREMAN: No CREATININE: Creatinine Date Value Ref Range [...] creatinine assay has traceable calibration to isotope dilution- mass spectrometry. Refer to KDIGO guidelines for clinical interpretation. In patients with unstable renal function, e.g. those with acute kidney injury, the eGFRmay not accurately reflect actual GFR. eGFR- Date Value Ref Range Status 11/22/2021 >60 Final P.O.C.T. RESULTS: N/A September 15, [address] PERFORMED: No IV SITE: Ambulatory: [facility] only - direct IV injection in the Right antecubital site POST EXAM PIV STATUS: Discontinued PROCEDURE TYPE: NM INJECT: PET/CT BODY SCAN. 14.2 mCi F18 FDG. No other medications given.. ADMINISTRATION TIME: 1130 PATIENT DISCHARGED TO: Ambulatory patient, left [facility] department area. Is this a therapy: No A Diagnostic radioactive procedure has taken place, with no further precautions necessary other than routine body substance precautions. More information regarding radiation safety can be found usingthis link: [email or web address]%[email or web address]%[email or web address] SIGNATURE: RT Ashly(R) PATIENT NAME: Lata Smith DATE: September 15, 2024 TIME: 11:37 AM PAGER/CONTACT #: documented in this encounterAcmc Healthcare System [facility]igh12-09-2024 NoteHNO ID: [id number] Author: GERONIMO BEARD RT(R) Service: Nuclear Medicine Author Type: Technologist Type: [...] PATIENT PRESENTS WITH AN IMPLANTABLE OR ATTACHED CRUSHING FOREMAN: No CREATININE: Creatinine Date Value Ref Range [...] 1130 PATIENT DISCHARGED TO: Ambulatory patient, left [facility] department area. Is this a therapy: No A Diagnostic radioactive procedure has taken place, with no further precautions necessary other than routine body substance precautions. More information regarding radiation safety can be found using this link: [email or web address] 20Diagnostic%20Nuclear%20Medicine%[email or web address] SIGNATURE: RT Ashly(R) PATIENT NAME: Lata Smith DATE: September 15, 2024 TIME: 11:37 AM [phone] History of Present illness Narrative* Georgina Morgan MD - 09/11/2024 12:45 PM EST Images from the original note were not included. . Respiratory [place] Note Patient name: Lata Smith PCP: Fiona Durant MD CC: Follow-up obstructive lung disease HPI: Lata Smith 63 year old female current 40 pack year smoker with PMH significant for obesity, asthma COPD overlap, depression, GERD, HTN, CAD s/p stents, hepatitis B, and lung cancer. Stage IV non-small cell cancer diagnosed in 08/2020, mets to bones, treatment with radiation, pembrolizumab, Zometa. At [facility] over a year ago, she had an [...] does not feel that it is as effectiveas it has been past. She had recent [...] Inhale 1 Puff as instructed two times aday. RINSE AND GARGLE MOUTH WITH WATER AFTER [...] in one nostril as needed for overdose. Mayrepeat every 2 to 3 min in alternating nostrils until medical assistance is available albuterol (PROVENTIL) 2.5 mg /3 mL (0.083 %) nebulizer solution Use 3 mL via nebulizer every 6 hours as needed for wheezing/shortness of breath. 1 vial contains 3 ml. albuterol HFA (VENTOLIN HFA) 90 mcg/actuation inhaler Inhale 2 Puffs as instructed every 4 hours asneeded for Wheezing/Shortness of Breath. Do not replace [...] tablet by mouth once daily. simethicone, chewable (OR-ACID GAS RELIEF,SIMETHICON,) 80 mg chewable tablet Take 1 tablet by mouthevery 6 hours as needed. traZODone (DESYREL) 50 [...] by mouth four times daily. 1tsp swish inmouth for several minutes, then swallow (or expectorate) 4 times daily until gone. potassium chloride (KLOR-CON) 20 mEq packet Take 20 mEq by mouth twice daily. (Patient taking differently: Take 20 mEq by mouth two times a day. Taking 3 times per week.) senna (SENOKOT) 8.6 mg tab Take 2 tablets by mouth twice daily. (Patient taking differently: Take 2tablets by mouth two times a day as needed.) oxyCODONE-acetaminophen (PERCOCET) 7.5-325 mg tablet Take 1 tablet by mouth every 8 hours as neededfor pain. rizatriptan (MAXALT) 10 mg tablet Take [...] adenocarcinoma. Active treatment plan per oncology. On Keyuda Georgina Morgan MD Res[facility] documented in this encounterAcmc Healthcare [facility]12-02-2024 Instructions* Patient Instructions* Fiona Durant MD - 09/08/2024 3:46 PM EST - Continue taking your current medications as prescribed. - Refill your test strips at [facility]. - Monitor your temperature regularly and report [...] continues to cause discomfort. documented in this encounterAcmc Healthcare System [facility]igh12-02-2024 History of Present illness Narrative* Fiona Durant MD - 09/08/2024 2:31 PM EST Images from the original note were not included. This note was created using [facility]. Subjective Lata Smith is a 63 year [...] currently under the care of Dr. Burgess, withstable management of her condition. She has a [...] She has an upcoming appointment with her daycare provider on the and plans todiscuss increasing her Advair dosage. She mentions a [...] pack of cigarettes per day. She was previouslyable to reduce her smoking to 3 cigarettes per week with the help of Chantix, but has not been ableto resume Chantix. She also reports occasional use of marijuana and wine. She expresses stress related to her daughter's health issues, including frequent falls, hemoptysis,epistaxis, and migraines. She is concerned that her daughter is not seeking medical attention for these issues. 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 COPD (chronic obstructive pulmonary disease) ([facility]) Degeneration of intervertebral disc, site unspecified Depressive [...] in one nostril as needed for overdose. Mayrepeat every 2 to 3 min in alternating nostrils until medical assistance is available albuterol (PROVENTIL) 2.5 mg /3 mL (0.083 %) nebulizer solution Use 3 mL via nebulizer every 6 hours as needed for wheezing/shortness of breath. 1 vial contains 3 ml. albuterol HFA (VENTOLIN HFA) 90 mcg/actuation inhaler Inhale 2 Puffs as instructed every 4 hours asneeded for Wheezing/Shortness of Breath. Do not replace [...] tablet by mouth once daily. simethicone, chewable (OR-ACID GAS RELIEF,SIMETHICON,) 80 mg chewable tablet Take 1 tablet by mouthevery 6 hours as needed. traZODone (DESYREL) 50 [...] by mouth four times daily. 1tsp swish inmouth for several minutes, then swallow (or expectorate) [...] mouth twice daily. (Patient taking differently: Take 2tablets by mouth two times a day as needed.) oxyCODONE-acetaminophen (PERCOCET) 7.5-325 mg tablet Take 1 tablet by mouth every 8 hours as neededfor pain. rizatriptan (MAXALT) 10 mg tablet Take [...] Lymph 1.00 - 4.00 k/uL 1.21 1.14 Grimes% % 5.7 5.4 Abs Grimes <0.87 k/uL 0.47 0.39 Eosin% % 3.2 [...] or crackles on auscultation. - Follow-up with daycare provider Dr. Morgan on the . - Discussed potential adjustment of Advair dosage with daycare provider. - Refilled Tessalon Perles for cough management. [...] discussed. Fiona Durant MD documented in this encounterAcmc Healthcare [facility]11-12-2024 Telephone encounter Note * Telephone Encounter - Mahi Chaidez - 08/19/2024 4:40 PM EST Spoke with patient and scheduled. Mahi Chaidez [facility]11-12-2024 Miscellaneous Notes* Telephone Encounter - Mahi Chaidez - 08/19/2024 4:40 PM EST Spoke with patient and scheduled. Mahi Chaidez * Telephone Encounter - Kim Augustine - 08/19/2024 1:35 PM EST PET scan when feasible See me after PET Continue keytruda every 6 weeks documented in this encounterAcmc Healthcare [facility]11-12-2024 Telephone encounter Note * Telephone Encounter - Kim Augustine - 08/19/2024 1:35 PM EST PET scan when feasible See me after PET Continue keytruda every 6 weeks [facility] Work Phone: 1(282) 888-972711-12-2024 History of Present illness Narrative* Sandoval Burgess MD - 08/19/2024 11:04 AM EST (Elements copied from my note dated April 15, 2024, have been reviewed and updated where appropriate,and all reflect current assessment and medical decision making from today's encounter, August) HISTORY OF PRESENT ILLNESS: Lata Smith is [...] on her right side of her chest forcouple months. Her staging PET scan on 08/03/2020 unfortunately showed metastatic disease. She had bronchoscopy and EBUS biopsy of the mediastinal lymph node on 08/19/2020. Biopsy was consistent withnon-small cell, favoring adenocarcinoma the lung. She is [...] by med onc and rad onc at [facility], their review suggests stability of disease, they [...] 02/17/2015 LIG/TRNSXJ FLP TUBE ABDL/VAG APPR UNI/BI 1983 Tubal ligation NEUROPLASTY &/TRANSPOS MEDIAN NRV CARPAL [...] in one nostril as needed for overdose. Mayrepeat every 2 to 3 min in alternating nostrils until medical assistance is available albuterol (PROVENTIL) 2.5 mg /3 mL (0.083 %) nebulizer solution Use 3 mL via nebulizer every 6 hours as needed for wheezing/shortness of breath. 1 vial contains 3 ml. albuterol HFA (VENTOLIN HFA) 90 mcg/actuation inhaler Inhale 2 Puffs as instructed every 4 hours asneeded for Wheezing/Shortness of Breath. Do not replace [...] tablet by mouth once daily. simethicone, chewable (OR-ACID GAS RELIEF,SIMETHICON,) 80 mg chewable tablet Take 1 tablet by mouthevery 6 hours as needed. traZODone (DESYREL) 50 [...] by mouth four times daily. 1tsp swish inmouth for several minutes, then swallow (or expectorate) [...] mouth twice daily. (Patient taking differently: Take 2tablets by mouth two times a day as needed.) oxyCODONE-acetaminophen (PERCOCET) 7.5-325 mg tablet Take 1 tablet by mouth every 8 hours as neededfor pain. rizatriptan (MAXALT) 10 mg tablet Take [...] which included preparing to see the patient, [id number] patient care, completing clinical documentation, obtaining and/or reviewing separately obtained history, performing a medically appropriate examination, counseling and educating the pat ient/family/caregiver, independently interpreting results (not separately reported), and communicating results to the patient/family/caregiver. Also review of images Electronically Signed: Sandoval Burgess MD August 19, 2024 documented in this encounterAcmc Healthcare [facility]10-03-2024 History of Present illness Narrative* Daily Lincoln RN - 07/10/2024 2:35 PM EDT Assessment unchanged from 07/08/24 office visit with Jairo Preciado CNP documented in this encounterAcmc Healthcare [facility]10-02-2024 Telephone encounter Note * Telephone Encounter - Tawana Fernandez LPN - 07/09/2024 7:32 AM EDT Prescription Refill Information The patient has been [...] Fernandez LPN July 09, 2024 7:32 AM [facility]10-02-2024 Miscellaneous Notes* Telephone Encounter - Tawana Fernandez LPN - 07/09/2024 7:32 AM EDT Prescription Refill Information The patient has been [...] 09, 2024 7:32 AM documented in this encounterAcmc Healthcare [facility]igh10-02-2024 Telephone encounter Note * Telephone Encounter - Tawana Fernandez LPN - 07/09/2024 7:25 AM EDT Prescription Refill Information The patient has been [...] Fernandez LPN July 09, 2024 7:25 AM [facility]10-02-2024 Miscellaneous Notes* Telephone Encounter - Tawana Fernnadez LPN - 07/09/2024 7:25 AM EDT Prescription Refill Information The patient has been [...] 09, 2024 7:25 AM documented in this encounterAcmc Healthcare System [facility]igh10-01-2024 History of Present illness Narrative* Carrie Preciado APRN.ENERGY EFFICIENT SITE MANAGER - 07/08/2024 8:20 AM EDT Chief Complaint Patient presents with: Established Patient HPI: Lata Smith is a 63 year old female who presents here today for evaluation for treatment on . Per Addie Carbajal's previous note: presented with worsening shortness of breath and hemoptysis for several months. [facility] [...] on her right side of her chest forcouple months. Her staging PET scan on 08/03/2020 unfortunately showed metastatic disease. She had bronchoscopy and EBUS biopsy of the mediastinal lymph node on 08/19/2020. Biopsy was consistent withnon-small cell, favoring adenocarcinoma the lung. She is [...] by med onc and rad onc at [facility], their review suggests stability of disease, they recommend observation, possible SBRT to lung if we see further growth of right lung nodule. No new concerns today. Appetite:Some day I eat a lot, other days no. Wt. up 3# since last visit. Energy level:Poor. Denies fevers. Mouth:denies sores Resp:occ. cough, denies sob, occ. covarrubias, recently treated by PCP for bronchitis- was on ATB/pred. Cardiac:denies chest pain/palpitations GI:denies abd [...] 1.00 - 4.00 k/uL 1.39 1.47 1.21 Grimes% % 6.5 6.5 5.7 Abs Grimes <0.87 k/uL 0.51 0.50 0.47 Eosin% % [...] visit. Carrie Preciado APRN.JAYLON documented in this encounterAcmc Healthcare System [facility]igh09-05-2024 History of Present illness Narrative* Liza Canas RN - 06/12/2024 1:56 PM EDT RECIST TUMOR MEASUREMENTS IRB #: [id number] / [id number] Image Modality: PET Image Date: 05/05/2024 Date [...] RN June 12, 2024 documented in this encounterAcmc Healthcare [facility]igh08-30-2024 Instructions* Patient Instructions* Fiona Durant MD - 06/06/2024 6:28 PM EDT -Azithromycin (Z-Tu) and Prednisone have been sent to your pharmacy - Continue using your current inhalers (albuterol, Incruse Ellipta, and Advair) as prescribed - Monitor your symptoms and start the Prednisone if your breathing worsens - Consider scheduling an appointment with your daycare provider to discuss your COPD management and smoking [...] you have any concerns before your next scheduledfollow-up. documented in this encounterAcmc Healthcare System Glen[facility]igh08-30-2024 History of Present illness Narrative* Fiona Durant MD - 06/06/2024 5:26 PM EDT This note was created using [employer]. Subjective Lata Smith is a 63 year [...] related to managing household responsibilities and financial constraints.She has a history of using doxycycline and [...] No date: COPD (chronic obstructive pulmonary disease) ([facility]) No date: Degeneration of intervertebral disc, site [...] in one nostril as needed for overdose. Mayrepeat every 2 to 3 min in alternating nostrils until medical assistance is available albuterol (PROVENTIL) 2.5 mg /3 mL (0.083 %) nebulizer solution Use 3 mL via nebulizer every 6 hours as needed for wheezing/shortness of breath. 1 vial contains 3 ml. albuterol HFA (VENTOLIN HFA) 90 mcg/actuation inhaler Inhale 2 Puffs as instructed every 4 hours asneeded for Wheezing/Shortness of Breath. Do not replace [...] tablet by mouth once daily. simethicone, chewable (OR-ACID GAS RELIEF,SIMETHICON,) 80 mg chewable tablet Take 1 tablet by mouthevery 6 hours as needed. traZODone (DESYREL) 50 [...] by mouth four times daily. 1tsp swish inmouth for several minutes, then swallow (or expectorate) [...] mouth twice daily. (Patient taking differently: Take 2tablets by mouth two times a day as needed.) oxyCODONE-acetaminophen (PERCOCET) 7.5-325 mg tablet Take 1 tablet by mouth every 8 hours as neededfor pain. rizatriptan (MAXALT) 10 mg tablet Take [...] Lymph 1.00 - 4.00 k/uL 1.39 1.47 Grimes% % 6.5 6.5 Abs Grimes <0.87 k/uL 0.51 0.50 Eosin% % 2.8 [...] bronchitis with chronic obstructive pulmonary disease (COPD) ([facility]) ([facility]) - Symptoms include cough for two weeks, green sputum production for one week, and intermittent fevers and chills. No diaphoresis reported with fever resolution. - Auscultation reveals low-pitched wheezes; no signs of pneumonia. - Current medications include albuterol, Advair, and Incruse Ellipta. - Prescribed Z-Tu, sent to [facility]. - Prescribed prednisone taper (4 mg for [...] bronchitis with chronic obstructive pulmonary disease (COPD) ([facility]) ([facility]) J44.0 azithromycin (ZITHROMAX Z-TU) 250 mg tablet J20.9 2. Non-small cell lung cancer metastatic to bone ([facility]) C34.90 azithromycin (ZITHROMAX Z-TU) 250 mgtablet C79.51 3. Elevated glucose R73.09 HEMOGLOBIN A1C 4. Class 2 obesity due to excess calories with body mass index (BMI) of 38.0 to 38.9 in adult, unspecified whether serious comorbidity present E66.09 Z68.38 5. Cigarette smoker F17.210 Still at [facility] Fiona Durant MD documented in this encounterAcmc Healthcare [facility]igh08-22-2024 History of Present illness Narrative* Daily Lincoln RN - 05/29/2024 2:18 PM EDT Assessment unchanged from 05/27/24 office visit with Rickey Carbajal CNP documented in this encounterAcmc Healthcare System [facility]igh08-21-2024 Telephone encounter Note * Telephone Encounter - Christina Amaro RN - 05/28/2024 2:43 PM EDT Discussed with Floresita Carbajal CNP. Had OV with her 05/27/24. Patient does not have any trouble ambulating and can get TUCKs OTC. Oneida Amaro RN [facility] Work Phone: 1(953) 580-309008-21-2024 Miscellaneous Notes* Telephone Encounter - Christina Amaro RN - 05/28/2024 2:43 PM EDT Discussed with Floresita Carbajal CNP. Had OV with her 05/27/24. Patient does not have any trouble ambulating and can get TUCKs OTC. Oneida Amaro RN * Telephone Encounter - Christina Amaro RN - 05/23/2024 10:55 AM EDT Olga Duncan from Palliative care, leaves asking if patient can have order for electric wheelchair and Tucks pads. Asking if insurance would pay for those items. Oneida Amaro RN documented in this encounterAcmc Healthcare System [facility]igh08-20-2024 History of Present illness Narrative* Floresita Carbajal - 05/27/2024 8:39 AM EDT Oncologic problem(s): 1) Stage IV, non-small cell [...] on her right side of her chest forcouple months. Her staging PET scan on 08/03/2020 unfortunately showed metastatic disease. She had bronchoscopy and EBUS biopsy of the mediastinal lymph node on 08/19/2020. Biopsy was consistent withnon-small cell, favoring adenocarcinoma the lung. She is [...] by med onc and rad onc at [facility], their review suggests stability of disease, they [...] so. Pt declines IV replacement. Cautioned patient andson on implementing CAM therapies. Denies rash or [...] Comment: Carpal tunnel decomp, right No date: No date: PAST SURGICAL HISTORY OF Comment: [...] in one nostril as needed for overdose. Mayrepeat every 2 to 3 min in alternating nostrils until medical assistance is available albuterol (PROVENTIL) 2.5 mg /3 mL (0.083 %) nebulizer solution Use 3 mL via nebulizer every 6 hours as needed for wheezing/shortness of breath. 1 vial contains 3 ml. albuterol HFA (VENTOLIN HFA) 90 mcg/actuation inhaler Inhale 2 Puffs as instructed every 4 hours asneeded for Wheezing/Shortness of Breath. Do not replace [...] tablet by mouth once daily. simethicone, chewable (OR-ACID GAS RELIEF,SIMETHICON,) 80 mg chewable tablet Take 1 tablet by mouthevery 6 hours as needed. traZODone (DESYREL) 50 [...] by mouth four times daily. 1tsp swish inmouth for several minutes, then swallow (or expectorate) 4 times daily until gone. promethazine (PHENERGAN) 25 mg tablet Take 1 tablet by mouth every 6 hours as needed for nausea/vomiting. multivitamin tablet Take 1 tablet by mouth once daily. senna (SENOKOT) 8.6 mg tab Take 2 tablets by mouth twice daily. (Patient taking differently: Take 2tablets by mouth two times a day as needed.) oxyCODONE-acetaminophen (PERCOCET) 7.5-325 mg tablet Take 1 tablet by mouth every 8 hours as neededfor pain. rizatriptan (MAXALT) 10 mg tablet Take [...] variant detected. 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 [...] mag Follow up as scheduled Floresita Carbajal APRN.ENERGY EFFICIENT SITE MANAGER I spent a total of 45 minutes on the date of the service which included preparing to see the patient, [id number] patient care, completing clinical documentation, and counseling [...] evaluation of this patient. documented in this encounterAcmc Healthcare System [facility]igh08-16-2024 Telephone encounter Note * Telephone Encounter - Christina Amaro, LILI - 05/23/2024 10:55 AM EDT Olga Duncan from Palliative care, leaves asking if patient can have order for electric wheelchair and Tucks pads. Asking if insurance would pay for those items. Oneida Amaro RN [facility]07-29-2024 History of Present illness Narrative* Geronimo Beard, RT(R) - 05/05/2024 1:00 PM EDT RADIOLOGY SERVICE PROGRESS NOTE SERVICE DATE: 05/05/2024 SERVICE TIME: 11:49 AM PATIENT IDENTITY VERIFICATION COMPLETED USING TWO (2) STANDARD IDENTIFIERS: Name and Date of confirmed by patient verbally FALL SCREENING: Has the patient had 2 falls in the last year or 1 fall with injury or currently using an Ambulatory Assistive Device (Walker, Cane, Wheelchair, Crutches, etc.)? Yes, Patient High Riskfor Falls What interventions were put in place to prevent falls during this visit? Increased Observations by Caregivers PATIENT GENDER DATA: .female ALLERGIES: NA MEDICATIONS REVIEWED: Not applicable PATIENT RELEVANT IMPLANT DATA REVIEWED: Not Applicable PATIENT PRESENTS WITH AN IMPLANTABLE OR ATTACHED CRUSHING FOREMAN: No CREATININE: Creatinine Date Value Ref Range [...] creatinine assay has traceable calibration to isotope dilution- mass spectrometry. Refer to KDIGO guidelines for clinical interpretation. In patients with unstable renal function, e.g. those with acute kidney injury, the eGFRmay not accurately reflect actual GFR. eGFR- Date [...] 1143 PATIENT DISCHARGED TO: Ambulatory patient, left [place] department area. A Diagnostic radioactive procedure has taken place, with no further precautions necessary other than routine body substance precautions. More information regarding radiation safety can be found usingthis link: [email or web address] 20Diagnostic%20Nuclear%20Medicine%20Procedures.pdf SIGNATURE: RT Ashly(Kyree) PATIENT NAME: Lata Smith DATE: May 05, 2024 TIME: 11:49 AM PAGER/CONTACT #: documented in this encounterCleveland [id number] NoteHNO ID: [id number] Author: GERONIMO BEARD RT(R) Service: Nuclear Medicine Author Type: Technologist Type: [...] PATIENT PRESENTS WITH AN IMPLANTABLE OR ATTACHED CRUSHING FOREMAN: No CREATININE: Creatinine Date Value Ref Range [...] safety can be found using this link: [email or web address] 20Diagnostic%20Nuclear%20Medicine%20Procedures.pdf SIGNATURE: Geronimo Beard, RT(R) PATIENT NAME: Lata Simth DATE: May 05, 2024 TIME: 11:49 AM [id number] History of Present illness Narrative* Daily Lincoln RN - 04/17/2024 1:05 PM EDT Assessment unchanged from 04/15/[address] Burgess documented in this encounterAcm[facility]07-09-[facility] History of Present illness Narrative* Sandoval Burgess MD - 04/15/2024 11:42 AM EDT (Elements copied from my note dated March 05, 2024, have been reviewed and updated where appropriate,and all reflect current assessment and medical decision [...] on her right side of her chest forcouple months. Her staging PET scan on 08/03/2020 unfortunately showed metastatic disease. She had bronchoscopy and EBUS biopsy of the mediastinal lymph node on 08/19/2020. Biopsy was consistent withnon-small cell, favoring adenocarcinoma the lung. She is [...] by med onc and rad onc at [facility], their review suggests stability of disease, they [...] in one nostril as needed for overdose. Mayrepeat every 2 to 3 min in alternating nostrils until medical assistance is available albuterol (PROVENTIL) 2.5 mg /3 mL (0.083 %) nebulizer solution Use 3 mL via nebulizer every 6 hours as needed for wheezing/shortness of breath. 1 vial contains 3 ml. albuterol HFA (VENTOLIN HFA) 90 mcg/actuation inhaler Inhale 2 Puffs as instructed every 4 hours asneeded for Wheezing/Shortness of Breath. Do not replace [...] tablet by mouth once daily. simethicone, chewable (OR-ACID GAS RELIEF,SIMETHICON,) 80 mg chewable tablet Take 1 tablet by mouthevery 6 hours as needed. traZODone (DESYREL) 50 [...] by mouth four times daily. 1tsp swish inmouth for several minutes, then swallow (or expectorate) [...] mouth twice daily. (Patient taking differently: Take 2tablets by mouth two times a day as needed.) oxyCODONE-acetaminophen (PERCOCET) 7.5-325 mg tablet Take 1 tablet by mouth every 8 hours as neededfor pain. rizatriptan (MAXALT) 10 mg tablet Take [...] which included preparing to see the patient, [id number] patient care, completing clinical documentation, obtaining and/or reviewing separately obtained history, performing a medically appropriate examination, counseling and educating the pat ient/family/caregiver, independently interpreting results (not separately reported), and communicating results to the patient/family/caregiver. Also review of images Electronically Signed: Sandoval Burgess MD April 15, 2024 documented in this encounterAcmc [facility]07-08-2024 Telephone encounter Note * Telephone Encounter - Tawana Fernandez LPN - 04/14/2024 11:23 AM EDT Prescription Refill Information The patient has been [...] Fernandez LPN April 14, 2024 11:23 AM [facility]-08-[facility]24 Miscellaneous Notes* Telephone Encounter - Tawana Fernandez LPN - 04/14/2024 11:23 AM EDT Prescription Refill Information The patient has been [...] 14, 2024 11:23 AM documented in this encounterAcmc [facility]07-08-2024 Telephone encounter Note * Telephone Encounter - Tawana Fernandez LPN - 04/14/2024 11:22 AM EDT Prescription Refill Information The patient has been [...] Fernandez LPN April 14, 2024 11:22 AM [facility] Miscellaneous Notes* Telephone Encounter - Tawana Fernandez LPN - 04/14/2024 11:22 AM EDT Prescription Refill Information The patient has been [...] 14, 2024 11:22 AM documented in this encounterAcmc [facility]07-08-2024 Telephone encounter Note * Telephone Encounter - Lauren Presley LPN - 04/14/2024 8:50 AM EDT VITO 06/20/23 Patient phones requesting refills as follows: Requested Prescriptions Pending Prescriptions Disp Refills umeclidinium (INCRUSE ELLIPTA) 62.5 mcg/actuation inhaler 1 Each 5 Sig: Inhale 1 Puff as instructed once daily. Please review and advise. Lauren Presley LPN [facility]07-08-2024 Miscellaneous Notes* Telephone Encounter - Lauren Presley LPN - 04/14/2024 8:50 AM EDT VITO 06/20/23 Patient phones requesting refills as follows: Requested Prescriptions Pending Prescriptions Disp Refills umeclidinium (INCRUSE ELLIPTA) 62.5 mcg/actuation inhaler 1 Each 5 Sig: Inhale 1 Puff as instructed once daily. Please review and advise. Lauren Presley LPN documented in this encounterAcmc [facility]06-03-2024 Telephone encounter Note * Telephone Encounter - Hoa Gaines LPN - 03/10/2024 11:01 AM EDT Prescription Refill Information The patient has been [...] Gaines LPN March 10, 2024 11:03 AM [facility] Miscellaneous Notes* Telephone Encounter - Hoa Gaines LPN - 03/10/2024 11:01 AM EDT Prescription Refill Information The patient has been [...] 10, 2024 11:03 AM documented in this encounterAcmc [facility]05-30-2024 History of Present illness Narrative* Liza Canas RN - 03/06/2024 2:05 PM EDT RECIST TUMOR MEASUREMENTS IRB #: [id number] / [id number] Image Modality: PET Image Date: 02/18/2024 Date [...] RN March 06, 2024 documented in this encounterAcmc [facility]05-29-2024 History of Present illness Narrative* Sandoval Burgess MD - 03/05/2024 3:23 PM EDT (Elements copied from my note dated ,January [...] on her right side of her chest forcouple months. Her staging PET scan on 08/03/2020 unfortunately showed metastatic disease. She had bronchoscopy and EBUS biopsy of the mediastinal lymph node on 08/19/2020. Biopsy was consistent withnon-small cell, favoring adenocarcinoma the lung. She is [...] by med onc and rad onc at [facility], their review suggests stability of disease, they [...] 2 Puffs as instructed every 4 hours asneeded for Wheezing/Shortness of Breath. Do not replace [...] tablet by mouth once daily. simethicone, chewable (OR-ACID GAS RELIEF,SIMETHICON,) 80 mg chewable tablet Take 1 tablet by mouthevery 6 hours as needed. traZODone (DESYREL) 50 [...] by mouth four times daily. 1tsp swish inmouth for several minutes, then swallow (or expectorate) [...] mouth twice daily. (Patient taking differently: Take 2tablets by mouth two times a day as needed.) oxyCODONE-acetaminophen (PERCOCET) 7.5-325 mg tablet Take 1 tablet by mouth every 8 hours as neededfor pain. naloxone 4 mg/actuation nasal spray (NARCAN) Use 1 spray in one nostril as needed for overdose. Mayrepeat every 2 to 3 min in alternating [...] which included preparing to see the patient, [id number] patient care, completing clinical documentation, obtaining and/or reviewing separately obtained history, performing a medically appropriate examination, counseling and educating the pat ient/family/caregiver, independently interpreting results (not separately reported), and communicating results to the patient/family/caregiver. Also review of images Electronically Signed: Sandoval Burgess MD March 05, 2024 documented in this encounterAcmc [facility]05-15-2024 History of Present illness Narrative* Fiona Durant MD - 02/20/2024 4:13 PM EDT This note was created using Ruby Grouper[employer]. 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 Do not replace [...] by mouth four times daily. 1tsp swish inmouth for several minutes, then swallow (or expectorate) [...] aluminum-magnesium hydroxide-simethicone (MAALOX,MYLANTA,MAG-AL PLUS) 200-200-20 mg/5 mL suspensionTake 15 mL by mouth every 6 hours as needed. senna (SENOKOT) 8.6 mg tab Take 2 tablets by mouth twice daily. (Patient taking differently: Take 2tablets by mouth two times a day as needed.) ibuprofen (MOTRIN) 800 mg tablet Take 1 tablet by mouth every 8 hours as needed for Pain. (not for migraines and not in same day as naprosyn) Take with food. oxyCODONE-acetaminophen (PERCOCET) 7.5-325 mg tablet Take 1 tablet by mouth every 8 hours as neededfor pain. naloxone 4 mg/actuation nasal spray (NARCAN) Use 1 spray in one nostril as needed for overdose. Mayrepeat every 2 to 3 min in alternating nostrils until medical assistance is available rizatriptan (MAXALT) 10 mg tablet Take 10 mg by mouth as needed. May repeat in 2 hours if needed cyclobenzaprine (FLEXERIL) 10 mg tablet Take 10 mg by mouth twice daily as needed for Muscle Spasm. simethicone, chewable (OR-ACID GAS RELIEF) 80 mg chewable tablet Take [...] Wt 90.7 kg (200 lb) LMP 11/04/2012 PkY190% BMI 39.06 kg/m Physical Exam Constitutional: Appearance: [...] Stage 3 severe COPD by GOLD classification ([facility]) J44.9 fluticasone-salmeterol (ADVAIR DISKUS) 250-50 mcg/dose inhaler Stable on current meds. Will follow up with pulmonary med 2. Right hip pain M25.551 diclofenac (VOLTAREN) 1 % topical gel Doing okay with pain management 3. Coronary artery disease involving koi coronary artery of koi heart without angina ralhsceqP07.10 rosuvastatin (CRESTOR) 40 mg tablet Stable on current meds 4. Irritable bowel syndrome with both constipation and diarrhea K58.2 simethicone, chewable (OR-ACID GAS RELIEF,SIMETHICON,) 80 mg chewable tablet more toward diarrhea 5. Fibromyalgia M79.7 traZODone (DESYREL) 50 mg tablet 6. Cigarette smoker F17.210 varenicline (CHANTIX CONTINUING MONTH BOX) 1 mg tablet Stress still main trigger 7. Cough R05.9 acetaminophen-codeine (TYLENOL-CODEINE #3) 300-30 mg per tablet Tylenol with codeine helps 8. COPD with exacerbation (HCC) J44.1 albuterol (PROVENTIL) 2.5 mg /3 mL [...] sleep. Fiona Durant MD documented in this encounterAcmc [facility]05-13-2024 History of Present illness Narrative* Geronimo Beard, RT(R) - 02/18/2024 9:00 AM EDT RADIOLOGY SERVICE PROGRESS NOTE SERVICE DATE: 02/18/2024 [...] PATIENT PRESENTS WITH AN IMPLANTABLE OR ATTACHED CRUSHING FOREMAN: No CREATININE: Creatinine Date Value Ref Range [...] creatinine assay has traceable calibration to isotope dilution- mass spectrometry. Refer to KDIGO guidelines for clinical interpretation. In patients with unstable renal function, e.g. those with acute kidney injury, the eGFRmay not accurately reflect actual GFR. eGFR- Date [...] information regarding radiation safety can be found usingthis link: [email or web address] 20Diagnostic%20Nuclear%20Medicine%20Procedures.pdf SIGNATURE: RT Ashly(Kyree) PATIENT NAME: Lata Smith DATE: February 18, 2024 TIME: 8:41 AM PAGER/CONTACT #: documented in this encounterAcmc Healthcare [facility]04-24-2024 History of Present illness Narrative* Liza Canas RN - 01/30/2024 2:31 PM EDT [facility] [id number] TUMOR METRICS: RECIST 1.1 Follow-Up Measurement Research Nurse/CRC Contact Information: Liza Canas Date of Baseline Scan: 09/16/2020 Date of Comparison Scan: 02/11/2024 Please see Abstract in EPIC Dated: 12/20/2023 documented in this encounterAcmc [facility]04-18-2024 History of Present illness Narrative* Daily Lincoln RN - 01/24/2024 1:40 PM EDT Assessment unchanged from 01/24/[address] Burgess documented in this encounterAcmc [facility]04-18-2024 Miscellaneous Notes* Telephone Encounter - Misti Powell - 01/24/2024 10:39 AM EDT Called patient and scheduled for 02/10. Misti Terrell * Telephone Encounter - Misti Powell - 01/23/2024 4:21 PM EDT Waiting for PET CT orders to be signed. Misti Terrell documented in this encounterAcmc Healthcare [facility]04-17-2024 History of Present illness Narrative* Sandoval Burgess MD - 01/23/2024 2:00 PM EDT (Elements copied from my note dated December [...] on her right side of her chest forcouple months. Her staging PET scan on 08/03/2020 unfortunately showed metastatic disease. She had bronchoscopy and EBUS biopsy of the mediastinal lymph node on 08/19/2020. Biopsy was consistent withnon-small cell, favoring adenocarcinoma the lung. She is [...] by med onc and rad onc at [facility], their review suggests stability of disease, they recommend observation, possible SBRT to lung ifwe see further growth of right lung nodule. [...] 2 Puffs as instructed every 4 hours asneeded for Wheezing/Shortness of Breath. Do not replace [...] by mouth four times daily. 1tsp swish inmouth for several minutes, then swallow (or expectorate) [...] aluminum-magnesium hydroxide-simethicone (MAALOX,MYLANTA,MAG-AL PLUS) 200-200-20 mg/5 mL suspensionTake 15 mL by mouth every 6 hours [...] tablet by mouth every 8 hours as neededfor pain. naloxone 4 mg/actuation nasal spray (NARCAN) Use 1 spray in one nostril as needed for overdose. Mayrepeat every 2 to 3 min in alternating nostrils until medical assistance is available rizatriptan (MAXALT) 10 mg tablet Take 10 mg by mouth as needed. May repeat in 2 hours if needed cyclobenzaprine (FLEXERIL) 10 mg tablet Take 10 mg by mouth twice daily as needed for Muscle Spasm. simethicone, chewable (OR-ACID GAS RELIEF) 80 mg chewable tablet Take [...] which included preparing to see the patient, [id number] patient care, completing clinical documentation, obtaining and/or reviewing separately obtained history, performing a medically appropriate examination, counseling and educating the pat ient/family/caregiver, independently interpreting results (not separately reported), and communicating results to the patient/family/caregiver. Also review of images Electronically Signed: Sandoval Burgess MD January 23, 2024 documented in this encounterAcmc Healthcare [facility]03-15-2024 Miscellaneous Notes* Telephone Encounter - Fiona Durant MD - 12/21/2023 7:03 PM EDT Noted * Telephone Encounter - Tiffany Rae RN - 12/21/2023 10:49 AM EDT Received call back from Michele at [facility]. Reports Palliative Care does not wish to treat pt's cough or manage the Tylenol #3. Reports they will continue to handle pt's Percocet for neoplasm pain at this time. Tiffany Rae RN * Telephone Encounter - Kanika Skinner LPN - 12/21/2023 10:33 AM EDT Left detailed message with nurse at Palliative care. She will get this to Olga and they will let us know if they will start treating the cough. * Telephone Encounter - Kanika Skinner LPN - 12/21/2023 8:52 AM EDT Tried several times to call number provided. Call cannot be completed as dialed. Tried with a 1 and without a 1. Was on hold for palliative care disconnected once and then waited on hold until as long as I could. Will try later. * Telephone Encounter - Fiona Durant MD - 12/21/2023 12:45 AM EDT Below noted. Was aware. Patient Tylenol #3 just occasionally to take as needed for cough. She does not take it multiple times a day on a regular basis so not taking every 4 hours ever, so will not get too much tylenol and not add to Percocet she takes from Hospice. Would they prefer to treat the cough? * Telephone Encounter - Faviola Marrero LPN - 12/20/2023 3:24 PM EDT Olga from [facility] states she checked an [facility] report on pt & sees that she is getting Tyl #3 from pcp - Rx on 08/15/23 & 11/28/23 both 42 tabs. Olga states pt is getting percocet 7.5-325 #180 almost every month. Wants pcp to be aware. Tyl #3 was prescribed for severe cough per chart. Faviola Marrero LPN documented in this encounterAcmc Healthcare [facility]03-14-2024 History of Present illness Narrative* Liza Canas RN - 12/20/2023 9:32 AM EDT RECIST TUMOR MEASUREMENTS IRB #: [id number] / [id number] Image Modality: CT ABD/PEL W IVCON Image [...] RN December 20, 2023 documented in this encounterAcmc [facility]03-06-2024 History of Present illness Narrative* Sandoval Burgess MD - 12/12/2023 1:11 PM EST (Elements copied from my note dated November 16, 2023, have been reviewed and updated where appropriate, and all reflect current assessment and medical decision making from today's encounter, December) HISTORY OF PRESENT ILLNESS: Lata Smith is [...] on her right side of her chest forcouple months. Her staging PET scan on 08/03/2020 unfortunately showed metastatic disease. She had bronchoscopy and EBUS biopsy of the mediastinal lymph node on 08/19/2020. Biopsy was consistent withnon-small cell, favoring adenocarcinoma the lung. She is [...] by med onc and rad onc at [facility], their review suggests stability of disease, they recommend observation, possible SBRT to lung ifwe see further growth of right lung nodule. [...] 2 Puffs as instructed every 4 hours asneeded for Wheezing/Shortness of Breath. Do not replace [...] by mouth four times daily. 1tsp swish inmouth for several minutes, then swallow (or expectorate) [...] aluminum-magnesium hydroxide-simethicone (MAALOX,MYLANTA,MAG-AL PLUS) 200-200-20 mg/5 mL suspensionTake 15 mL by mouth every 6 hours [...] tablet by mouth every 8 hours as neededfor pain. rizatriptan (MAXALT) 10 mg tablet Take 10 mg by mouth as needed. May repeat in 2 hours if needed cyclobenzaprine (FLEXERIL) 10 mg tablet Take 10 mg by mouth twice daily as needed for Muscle Spasm. simethicone, chewable (OR-ACID GAS RELIEF) 80 mg chewable tablet Take [...] in one nostril as needed for overdose. Mayrepeat every 2 to 3 min in alternating [...] which included preparing to see the patient, [id number] patient care, completing clinical documentation, obtaining and/or reviewing separately obtained history, performing a medically appropriate examination, counseling and educating the pat ient/family/caregiver, independently interpreting results (not separately reported), and communicating results to the patient/family/caregiver. Also review of images Electronically Signed: Sandoval Burgess MD December 12, 2023 documented in this encounterAcmc Healthcare [facility]03-05-2024 History of Present illness Narrative* Liza Canas RN - 12/11/2023 8:32 AM EST [facility]/IRB #: [id number] TUMOR METRICS: RECIST 1.1 Follow-Up Measurement Research Nurse/CRC Contact Information: Liza Canas [phone] Date of Baseline Scan: 09/16/2020 Date of Comparison Scan: 08/10/[address] in PET dated 11/12/2023 Please see Abstract in EPIC Dated: 08/16/2023 documented in this encounterAcmc Healthcare [facility]igh02-21-2024 History of Present illness Narrative* Fiona Durant MD - 11/28/2023 4:07 PM EST This note was created using [employer]. Subjective Lata Smith is a 63 year [...] by mouth four times daily. 1tsp swish inmouth for several minutes, then swallow (or expectorate) [...] 2 Puffs as instructed every 4 hours asneeded for Wheezing/Shortness of Breath. Do not replace [...] aluminum-magnesium hydroxide-simethicone (MAALOX,MYLANTA,MAG-AL PLUS) 200-200-20 mg/5 mL suspensionTake 15 mL by mouth every 6 hours [...] tablet by mouth every 8 hours as neededfor pain. naloxone 4 mg/actuation nasal spray (NARCAN) Use 1 spray in one nostril as needed for overdose. Mayrepeat every 2 to 3 min in alternating nostrils until medical assistance is available rizatriptan (MAXALT) 10 mg tablet Take 10 mg by mouth as needed. May repeat in 2 hours if needed cyclobenzaprine (FLEXERIL) 10 mg tablet Take 10 mg by mouth twice daily as needed for Muscle Spasm. simethicone, chewable (OR-ACID GAS RELIEF) 80 mg chewable tablet Take [...] 1.00 - 4.00 k/uL 1.19 1.54 1.46 Grimes% % 7.1 6.0 7.6 Abs Grimes <0.87 k/uL 0.58 0.56 0.66 Eosin% % [...] sleep. Fiona Durant MD documented in this encounterAcmc Healthcare [facility]02-09-2024 History of Present illness Narrative* Sandoval Burgess MD - 11/16/2023 3:01 PM EST (Elements copied from my note dated October 31, 2023, have been reviewed and updated where appropriate, and all reflect current assessment and medical decision making from today's encounter, 2023) HISTORY OF PRESENT ILLNESS: Lata Smith [...] on her right side of her chest forcouple months. Her staging PET scan on 08/03/2020 unfortunately showed metastatic disease. She had bronchoscopy and EBUS biopsy of the mediastinal lymph node on 08/19/2020. Biopsy was consistent withnon-small cell, favoring adenocarcinoma the lung. She is [...] step, as overall pembrolizumab seems to be holdingdisease in check, but now with oligo progression. [...] by mouth four times daily. 1tsp swish inmouth for several minutes, then swallow (or expectorate) [...] 2 Puffs as instructed every 4 hours asneeded for Wheezing/Shortness of Breath. Do not replace [...] aluminum-magnesium hydroxide-simethicone (MAALOX,MYLANTA,MAG-AL PLUS) 200-200-20 mg/5 mL suspensionTake 15 mL by mouth every 6 hours [...] tablet by mouth every 8 hours as neededfor pain. rizatriptan (MAXALT) 10 mg tablet Take 10 mg by mouth as needed. May repeat in 2 hours if needed cyclobenzaprine (FLEXERIL) 10 mg tablet Take 10 mg by mouth twice daily as needed for Muscle Spasm. simethicone, chewable (OR-ACID GAS RELIEF) 80 mg chewable tablet Take [...] Take 1 tablet by mouth twice daily. (Patientnot taking: Reported on 08/15/2023) varenicline (CHANTIX CONTINUING MONTH BOX) 1 mg tablet Take 1 tablet by mouth twice daily. (Patientnot taking: Reported on 08/15/2023) albuterol (PROVENTIL) 2.5 mg /3 mL (0.083 %) nebulizer solution Use 3 mL via nebulizer every 6 hours as needed for wheezing/shortness of breath. 1 vial contains 3 ml. naloxone 4 mg/actuation nasal spray (NARCAN) Use 1 spray in one nostril as needed for overdose. Mayrepeat every 2 to 3 min in alternating [...] which included preparing to see the patient, [id number] patient care, completing clinical documentation, obtaining and/or reviewing separately obtained history, performing a medically appropriate examination, counseling and educating the pat ient/family/caregiver, independently interpreting results (not separately reported), and communicating results to the patient/family/caregiver. Also review of images Electronically Signed: Sandoval Burgess MD November 16, 2023 documented in this encounterAcmc [facility]02-05-2024 History of Present illness Narrative* Geronimo Beard, RT(R) - 11/12/2023 11:30 AM EST RADIOLOGY SERVICE PROGRESS NOTE SERVICE DATE: 11/12/2023 [...] PATIENT PRESENTS WITH AN IMPLANTABLE OR ATTACHED CRUSHING FOREMAN: No CREATININE: Creatinine Date Value Ref Range [...] creatinine assay has traceable calibration to isotope dilution- mass spectrometry. Refer to KDIGO guidelines for clinical interpretation. In patients with unstable renal function, e.g. those with acute kidney injury, the eGFRmay not accurately reflect actual GFR. eGFR- Date [...] 1023 PATIENT DISCHARGED TO: Ambulatory patient, left [place] department area. A Diagnostic radioactive procedure has taken place, with no further precautions necessary other than routine body substance precautions. More information regarding radiation safety can be found usingthis link: [email or web address] SIGNATURE: RT Ashly(R) PATIENT NAME: Lata Smith DATE: November 12, 2023 TIME: 10:31 AM PAGER/CONTACT #: documented in this encounterAcmc Healthcare [facility] Glen[facility]igh12-12-2023 Miscellaneous Notes* Telephone Encounter - Mahi Chaidez - 09/18/2023 8:33 AM EST Patient notified and appointment notes adjusted. Mahi Chaidez * Telephone Encounter - Deb Hoover LPN - 09/18/2023 8:29 AM EST Okay for straight back tomorrow. Please notify patient. Deb Hoover LPN * Telephone Encounter - Tameka More - 09/18/2023 8:18 AM EST Pt calling in to cancel her OV this morning due to her car not starting. Pt stated she will try to come in later today to get her labs drawn. Please advise if ok for pt to get treatment tomorrow with out OV or if provider would like to see her. He has a few openings tomorrow. documented in this encounterAcmc Healthcare [facility]igh11-29-2023 Miscellaneous Notes* Telephone Encounter - Tawana Fernandez LPN - 09/05/2023 10:20 AM EST PATIENT NOTIFIED OF SAME. * Telephone Encounter - Fiona Durant MD - 09/04/2023 9:17 PM EST Orders sent as requested but insurance might not cover cost since is not diabetic. The following approved medication requests have been transmitted electronically. Requested Prescriptions Signed Prescriptions Disp Refills blood sugar diagnostic (BLOOD GLUCOSE TEST) test strip 50 Strip 11 Sig: Test blood sugar(s) 1 times daily. Dx: (R73.9) Hyperglycemia; (R73.03) Prediabetes Insulin: No Authorizing Provider: FIONA DURANT MD * Telephone Encounter - Oma Arevalo - 09/04/2023 1:45 PM EST Patient called back to check on status of her request for a blood glucose monitor. Advised her Dr. Durant hasn't replied to her request yet. Please call her at [phone] to advise. * Telephone Encounter - Tawana Fernandez LPN - 09/03/2023 2:07 PM EST Last HGBA1C was 12/15/21 at 6.2 * Telephone Encounter - Ann Munoz - 09/03/2023 1:59 PM EST Lata Smith is calling Fiona Durant MD today to request diabetic monitoring kit. She has been reviewing her MyChart and has noticed her sugars have been climbing and she would liketo track them. [facility] in [place] Patient has been identified by name and birthdate. Duration of symptoms: N/A Person calling: self Call patient at: at home [phone] (home) [phone] (cell) Was an appointment scheduled: No Closing statement: Ann Carpenter Pss documented in this encounterAcmc Healthcare System Glen[facility]igh11-27-2023 Miscellaneous Notes* Telephone Encounter - Ann Munoz - 09/03/2023 2:01 PM EST Lata states she has another infection. * Telephone Encounter - Ann Munoz - 09/03/2023 1:58 PM EST Pharmacy verified in [facility] Patient has been identified by name and date of : Yes Patient aware RX will be sent to pharmacy. No need to notify patient. Patient phones for refill(s): Requested Prescriptions Pending Prescriptions Disp Refills nystatin (MYCOSTATIN) 100,000 unit/mL suspension 200 mL 0 Sig: Take 5 mL by mouth four times daily. 1tsp swish in mouth for several minutes, then swallow (orexpectorate) 4 times daily until gone. Date of last office visit : 08/15/2023 Date of next office visit : 09/03/2023 Last 2 Encounter Wt Readings: Date: Wt: 08/15/2023 91.6 kg (202 lb) 08/07/2023 93.2 kg (205 lb 8 oz) Not applicable Please advise. Ann Carpenter Pss documented in this encounterAcmc Healthcare [facility]11-09-2023 Miscellaneous Notes* Telephone Encounter - Liza Canas RN - 08/16/2023 12:53 PM EST Spoke with patient with approval by , discussed CT and follow-up plan. Reviewed questions and concerns. Patient comfortable with plan and appointment in September. Liza Canas RN documented in this encounterAcmc Healthcare [facility]11-07-2023 Miscellaneous Notes* Telephone Encounter - Christina Amaro RN - 08/14/2023 2:28 PM EST Spoke with Dr. Burgess, who reviewed CT scan. States there is a new nodule noted but he is not concerned about it at this time. He can discuss with patient further at her appt next week. Call to patient and aware of above message. Questions answered. She states she is still concerned but thanked this nurse for the phone call. Oneida Amaro, RN * Telephone Encounter - Kim Augustine - 08/13/2023 3:25 PM EST Patient called back stating the results on my chart look like her cancer is back and she would liketo speak to clinical. * Telephone Encounter - Kim Augustine - 08/13/2023 10:55 AM EST Patient requesting to speak to clinical regarding 08/10 CT results documented in this encounterAcmc Healthcare [facility] Glen[facility]igh11-03-2023 History of Present illness Narrative* Barbara Wilkinson RT(R) - 08/10/2023 3:00 PM EDT Radiology Service Progress Note PATIENT NAME: Lata Smith DATE OF SERVICE: August 10, 2023 TIME: 2:52 PM PATIENT IDENTITY VERIFICATION COMPLETED USING TWO (2) IDENTIFIERS: Name and Date of confirmedby patient verbally. FALL SCREENING: Has the patient [...] 10, 2023 2:52 PM documented in this [facility]11-03-2023 History of Present illness Narrative* Liza Canas RN - 08/10/2023 11:21 AM EDT RESEARCH [facility]/IRB #: [id number] TUMOR METRICS: RECIST 1.1 Follow-Up Measurement Research Nurse/CRC Contact Information: Liza Canas Date of Baseline Scan: 09/16/2020 Date of Comparison Scan: 05/11/[address] Chest dated 08/10/2023 Please see Abstract in EPIC Dated: 05/11/2023 documented in this [facility]11-01-2023 History of Present illness Narrative* Leigh Saul RN - 08/08/2023 2:29 PM EDT No changes to assessment from OV yesterday. Leigh Saul RN documented in this [facility]10-25-2023 History of Present illness Narrative* Isabel Campuzano PA-C - 08/01/2023 3:22 PM EDT This note was created using Ruby Grouperiter. 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 14 tablet0 nystatin (MYCOSTATIN) 100,000 unit/mL suspension Take 5 mL by mouth four times daily. 1tsp swish inmouth for several minutes, then swallow (or expectorate) [...] 2 Puffs as instructed every 4 hours asneeded for Wheezing/Shortness of Breath. Do not replace [...] Inhale 1 Puff as instructed once daily. 1Each 5 fluticasone (FLONASE) 50 mcg/actuation nasal spray [...] aluminum-magnesium hydroxide-simethicone (MAALOX,MYLANTA,MAG-AL PLUS) 200-200-20 mg/5 mL suspensionTake 15 mL by mouth every 6 hours [...] tablet by mouth every 8 hours as neededfor pain. naloxone 4 mg/actuation nasal spray (NARCAN) Use 1 spray in one nostril as needed for overdose. Mayrepeat every 2 to 3 min in alternating nostrils until medical assistance is available 1 Box 0 rizatriptan (MAXALT) 10 mg tablet Take 10 mg by mouth as needed. May repeat in 2 hours if needed cyclobenzaprine (FLEXERIL) 10 mg tablet Take 10 mg by mouth twice daily as needed for Muscle Spasm. simethicone, chewable (OR-ACID GAS RELIEF) 80 mg chewable tablet Take [...] JEY PAST SURGICAL HISTORY OF cardiac stents FAMILY [...] Wt 92.1 kg (203 lb) LMP 11/04/2012 FdI686% BMI 39.65 kg/m Physical Exam Vitals reviewed. [...] pulmonology. Isabel Campuzano PA-C documented in this encounterAcmc Healthcare [facility]10-16-2023 Miscellaneous Notes* Telephone Encounter - Lauren Presley LPN - 07/23/2023 2:12 PM EDT PA was denied by [facility]. Advair Diskus and Incruse continued as formulary alternative. Pt. notified re: same. Lauren Presley LPN * Telephone Encounter - Ann Cuba - 07/23/2023 2:09 PM EDT Pt called regarding Trulicity Ann Slade ordered. States that pharmacy needs prior auth. Not on medication list. documented in this encounterAcmc Healthcare [facility]igh09-19-2023 History of Present illness Narrative* Liza Canas RN - 06/26/2023 11:14 AM EDT IRB#: [id number], [facility]# [id number]: A Randomized, Phase III Study of Firstline Immunotherapy alone or in Combination with Chemotherapy in Induction/Maintenance or Postprogression in Advanced Nonsquamous Non-Small Cell Lung Cancer (NSCLC) with Immunobiomarker SIGNature-driven Analysis IC signed 09/13/2020 Randomized 09/22/2020 to treatment arm A: 1st line [id number] (pembrolizumab) followed by 2nd line Pemetrexed/Carboplatin. Study ID: [id number] Patient off study treatment protocol 10/17/2022 - since patient was supposed to end Cycle 36 - John wanted patient to continue with treatment outside of protocol. Pt examined by Sandoval Burgess MD on 06/26/2023 in follow up of new treatment plan. Patient seen for survival by this staff. Patient doing well with second line therapy - Patient has a new mass beinglooked into believed to be related to thyroid- not progression and RECIST shown SD. Patient feelingless sore and fatigued. Patient back up to a pack a week and vapes occasionally, but has not been drinking. Patient encouraged to reduce intake. Patient managing pain with hip with palliative care still and feels this has improved. Patient just got over bronchitis - has not lingering illness other than continued cough. PS/KPS completed by - 90 10/17/2022 Creatinine Clearance: (No longer needed) [...] DOSE) 81 mg, ORAL, DAILY Hx of OR 10/2019 clopidogrel (PLAVIX) 75 mg, ORAL, DAILY Hx of OR 10/2019 Stopped 10-25-2020 diclofenac sodium (VOLTAREN) 4 [...] PRINIVIL) 5 mg, ORAL, DAILY Hx of OR 10/2019 morphine SR (MS CONTIN) 30 mg, [...] mg, ORAL, DAILY Dyslipidemia 02/27/2020 simethicone, chewable (OR-ACID GAS RELIEF(SIMETHICON)) 80 mg, ORAL, EVERY 6 HOURS NEEDED Irritable bowel 10/16/2012 traZODone (DESYREL) 50 mg, ORAL, AT BEDTIME NEEDED Depression 07/26/2010 10/06/2021 verapamil ER (VERELAN) 120 mg 24 hr capsule Verapamil Verapamil Hcl Active 0 MG DAILY October 10, 2019 7:53am 10-10-2019 [facility] ([id number]) Hx OR 10/2019 Motrin 800mg, 1 tab every 8 hours as prn Headaches 08/28/2016 Stopped 12/20/2020 but continue to take PRN Headaches 01/21/2008 Flexeril 10mg, 1 tab twice daily prn Muscles spasms 08/15/2005 Sennosides 17.2 mg ORAL 2 TIMES DAILY Constipation 10/18/2020 Percocet 5/325mg, [id number] prn Pain 11/05/2020 calcium-cholecalciferol, D3, (OSCAL+D ) [...] for Dr. Navarro office as well as [facility] Department for any questions/concerns. PATRICIO Jacobson, RN, Clinical Research Nurse [phone] documented in this encounterAcmc Healthcare [facility]igh09-19-2023 History of Present illness Narrative* Sandoval Burgess MD - 06/26/2023 10:24 AM EDT (Elements copied from my note dated May [...] on her right side of her chest forcouple months. Her staging PET scan on 08/03/2020 unfortunately showed metastatic disease. She had bronchoscopy and EBUS biopsy of the mediastinal lymph node on 08/19/2020. Biopsy was consistent withnon-small cell, favoring adenocarcinoma the lung. She is [...] 2 Puffs as instructed every 4 hours asneeded for Wheezing/Shortness of Breath. Do not replace [...] aluminum-magnesium hydroxide-simethicone (MAALOX,MYLANTA,MAG-AL PLUS) 200-200-20 mg/5 mL suspensionTake 15 mL by mouth every 6 hours [...] tablet by mouth every 8 hours as neededfor pain. rizatriptan (MAXALT) 10 mg tablet Take 10 mg by mouth as needed. May repeat in 2 hours if needed cyclobenzaprine (FLEXERIL) 10 mg tablet Take 10 mg by mouth twice daily as needed for Muscle Spasm. simethicone, chewable (OR-ACID GAS RELIEF) 80 mg chewable tablet Take [...] in one nostril as needed for overdose. Mayrepeat every 2 to 3 min in alternating [...] which included preparing to see the patient, [id number] patient care, completing clinical documentation, obtaining and/or reviewing separately obtained history, performing a medically appropriate examination, counseling and educating the pat ient/family/caregiver, independently interpreting results (not separately reported), and communicating results to the patient/family/caregiver. Electronically Signed: Sandoval Burgess MD June 26, 2023 documented in this encounterAcmc Healthcare [facility]igh09-18-2023 Miscellaneous Notes* Telephone Encounter - Corbin Kerr LPN - 06/25/2023 11:08 AM EDT Patient phones requesting refills as follows: Requested Prescriptions Pending Prescriptions Disp Refills hydroCHLOROthiazide 25 mg tablet 30 tablet 3 Sig: Take 1 tablet by mouth once daily as needed (fluid retention/leg swelling). VITO 05/22/23 NOV 08/15/23 Please review and advise. Corbin Kerr LPN documented in this encounterAcmc Healthcare [facility]igh09-18-2023 Miscellaneous Notes* Telephone Encounter - Corbin Kerr LPN - 06/25/2023 11:07 AM EDT Patient phones requesting refills as follows: Requested Prescriptions Pending Prescriptions Disp Refills varenicline (CHANTIX CONTINUING MONTH BOX) 1 mg tablet 56 tablet 3 Sig: Take 1 tablet by mouth twice daily. VITO 05/22/23 08/15/23 Please review and advise. Corbin Kerr LPN documented in this encounterAcmc Healthcare [facility]igh09-18-2023 Miscellaneous Notes* Telephone Encounter - Corbin Kerr LPN - 06/25/2023 11:07 AM EDT Patient phones requesting refills as follows: Requested [...] tablet by mouth twice daily. VITO 05/22/23 08/15/23 Please review and advise. Corbin Kerr LPN documented in this encounterAcmc Healthcare [facility]09-18-2023 Miscellaneous Notes* Telephone Encounter - Lauren Presley LPN - 06/25/2023 8:36 AM EDT VITO: 06/20/23 Patient phones requesting refills as follows: Requested Prescriptions Pending Prescriptions Disp Refills fluticasone-salmeterol (ADVAIR DISKUS) 250-50 mcg/dose inhaler 1 Each 5 Sig: Inhale 1 Puff as instructed twice daily. RINSE AND GARGLE MOUTH WITH WATER AFTER EACH USE. Please review and advise. Lauren Presley LPN documented in this encounterAcmc Healthcare [facility]09-13-2023 History of Present illness Narrative* Ann Slade PA-C - 06/20/2023 3:30 PM EDT Images from the original note were not included. Patient: Lata Smith PCP: Fiona Durant MD CC: follow up HPI: Lata Smith 62 year old obese female current 75-njie-xvvk smoker with PMH significant for asthma COPD [...] which has gradually increased in size since 2019. Current maintenance therapy with Advair and Incruse [...] GARGLE MOUTH WITH WATER AFTER EACH USE. vjqopsyywdf-nosdmbcag-cwiexjee (TRELEGY ELLIPTA) 100-62.5-25 mcg inhalation powder Inhale 1 Puff asinstructed once daily. predniSONE (DELTASONE) 10 mg tablet [...] 2 Puffs as instructed every 4 hours asneeded for Wheezing/Shortness of Breath. Do not replace with ProAir. diclofenac (VOLTAREN) 1 % topical gel Apply 2 g to affected area four times daily as needed (upper extremity joint(s)). aluminum-magnesium hydroxide-simethicone (MAALOX,MYLANTA,MAG-AL PLUS) 200-200-20 mg/5 mL suspensionTake 15 mL by mouth every 6 hours [...] tablet by mouth every 8 hours as neededfor pain. naloxone 4 mg/actuation nasal spray (NARCAN) Use 1 spray in one nostril as needed for overdose. Mayrepeat every 2 to 3 min in alternating nostrils until medical assistance is available rizatriptan (MAXALT) 10 mg tablet Take 10 mg by mouth as needed. May repeat in 2 hours if needed cyclobenzaprine (FLEXERIL) 10 mg tablet Take 10 mg by mouth twice daily as needed for Muscle Spasm. simethicone, chewable (OR-ACID GAS RELIEF) 80 mg chewable tablet Take [...] DATE OF EXAM: Feb 09 2023 10:30AM [facility] 0539 - CT CHEST W [...] are noted with PCI stents in RCA, althoughthe study is not optimized for coronary assessment. [...] minutes prior to activities associated with shortness ofbreath, and as needed for rescue relief of [...] necessary. Ann Slade PA-C documented in this encounterAcmc Healthcare System Glen[facility]igh08-18-2023 History of Present illness Narrative* Perla Gautam APRN.ENERGY EFFICIENT SITE MANAGER - 05/25/2023 3:35 PM EDT Images from the original note were not included. Subjective The history is provided by the patient. No grain mill products inspector was used. HPI Lata Smith is a [...] (HCC) 09/03/2020 COPD (chronic obstructive pulmonary disease) ([facility]) Degeneration of intervertebral disc, site unspecified Depressive [...] have confirmed and edited as necessary, the [facility] Review of Systems Constitutional: Negative for [...] for higher level of care were discussed indetail warranting prompt ER evaluation. Perla Gautam APRN.ENERGY EFFICIENT SITE MANAGER documented in this encounterAcmc Healthcare System Glenbeigh08-15-2023 History of Present illness Narrative* Fiona Durant MD - 05/22/2023 9:15 AM EDT This note was created using Ruby Grouperiter. Subjective Lata Smith is a 62 year [...] (HCC) 09/03/2020 COPD (chronic obstructive pulmonary disease) ([facility]) Degeneration of intervertebral disc, site unspecified Depressive [...] NOVASURE PAST SURGICAL HISTORY OF cardiac stents Current [...] 2 Puffs as instructed every 4 hours asneeded for Wheezing/Shortness of Breath. Do not replace with ProAir. diclofenac (VOLTAREN) 1 % topical gel Apply 2 g to affected area four times daily as needed (upper extremity joint(s)). aluminum-magnesium hydroxide-simethicone (MAALOX,MYLANTA,MAG-AL PLUS) 200-200-20 mg/5 mL suspensionTake 15 mL by mouth every 6 hours [...] tablet by mouth every 8 hours as neededfor pain. rosuvastatin (CRESTOR) 40 mg tablet Take [...] as needed for Muscle Spasm. simethicone, chewable (OR-ACID GAS RELIEF) 80 mg chewable tablet Take 1 tablet by mouth every 6 hours as needed. docusate sodium (COLACE) 100 mg capsule Take 1 capsule by mouth once daily as needed. hztswqoxdib-mxfemfmde-hitoalun (TRELEGY ELLIPTA) 100-62.5-25 mcg inhalation powder Inhale 1 Puff asinstructed once daily. predniSONE (DELTASONE) 10 mg tablet [...] THEN 1 mg twice daily on Day 8and thereafter hydroCHLOROthiazide 25 mg tablet Take 1 [...] in one nostril as needed for overdose. Mayrepeat every 2 to 3 min in alternating [...] 4.00 k/uL 1.71 1.29 1.19 1.57 1.31 Grimes% % 7.1 5.7 6.1 6.4 6.7 Abs Grimes <0.87 k/uL 0.55 0.40 0.36 0.75 0.52 [...] 4.3 (L) 5.5 9.0 CMP done at [facility]--glucose 114 Physical Exam Constitutional: Appearance: [...] incontinence N39.46 7. Coronary artery disease involving koi coronary artery of koi heart without angina [id number] rosuvastatin (CRESTOR) 40 mg tablet Above issues [...] cessation. Fiona Durant MD documented in this encounterAcmc Healthcare [facility]igh08-08-2023 History of Present illness Narrative* Sandoval Burgess MD - 05/15/2023 10:34 AM EDT HISTORY OF PRESENT ILLNESS: Lata Smith is [...] on her right side of her chest forcouple months. Her staging PET scan on 08/03/2020 unfortunately showed metastatic disease. She had bronchoscopy and EBUS biopsy of the mediastinal lymph node on 08/19/2020. Biopsy was consistent withnon-small cell, favoring adenocarcinoma the lung. She is [...] 2 Puffs as instructed every 4 hours asneeded for Wheezing/Shortness of Breath. Do not replace with ProAir. diclofenac (VOLTAREN) 1 % topical gel Apply 2 g to affected area four times daily as needed (upper extremity joint(s)). aluminum-magnesium hydroxide-simethicone (MAALOX,MYLANTA,MAG-AL PLUS) 200-200-20 mg/5 mL suspensionTake 15 mL by mouth every 6 hours [...] tablet by mouth every 8 hours as neededfor pain. rosuvastatin (CRESTOR) 40 mg tablet Take [...] as needed for Muscle Spasm. simethicone, chewable (OR-ACID GAS RELIEF) 80 mg chewable tablet Take 1 tablet by mouth every 6 hours as needed. polyethylene glycol 3350 (MIRALAX) 17 gram/dose powder Take 17 g by mouth once daily. NOT NEEDING NOW docusate sodium (COLACE) 100 mg capsule Take 1 capsule by mouth once daily as needed. ktxtakagqad-bdxsnlqjp-hosxqhdx (TRELEGY ELLIPTA) 100-62.5-25 mcg inhalation powder Inhale 1 Puff asinstructed once daily. (Patient not taking: Reported on [...] THEN 1 mg twice daily on Day 8and thereafter varenicline (CHANTIX CONTINUING MONTH BOX) 1 mg tablet Take 1 tablet by mouth twice daily. albuterol (PROVENTIL) 2.5 mg /3 mL (0.083 %) nebulizer solution Use 3 mL via nebulizer every 6 hours as needed for wheezing/shortness of breath. 1 vial contains 3 ml. naloxone 4 mg/actuation nasal spray (NARCAN) Use 1 spray in one nostril as needed for overdose. Mayrepeat every 2 to 3 min in alternating [...] which included preparing to see the patient, axxk-qt-nmdo patient care, completing clinical documentation, obtaining and/or reviewing separately obtained history, performing a medically appropriate examination, counseling and educating the pat ient/family/caregiver, independently interpreting results (not separately reported), and communicating results to the patient/family/caregiver. Electronically Signed: Sandoval Burgess MD May 15, 2023 10:34 AM documented in this encounterAcmc Healthcare System Glen[facility]igh08-07-2023 History of Present illness Narrative* Liza Canas RN - 05/14/2023 9:23 AM EDT RECIST TUMOR MEASUREMENTS IRB #: [id number] / [id number] Image Modality: CT ABD/PEL W IVCON Image [...] been reviewed, discussed, and approved by Telly Duncan D.O. Liza Canas RN May 14, 2023 documented in this encounterAcmc Healthcare System [facility]igh08-07-2023 Miscellaneous Notes* Telephone Encounter - Liza Canas RN - 05/14/2023 9:21 AM EDT Patient returned call at this time and discussed reviewed images with . Patient understandsand will be in tomorrow for her scheduled appointment. * Telephone Encounter - Liza Canas RN - 05/14/2023 9:05 AM EDT Left patient a voicemail to call back about reviewed results with Telly Duncan MD. Liza Canas RN documented in this encounterAcmc Healthcare System Glenbeigh07-10-2023 History of Present illness Narrative* Perla GautamSANDRA.ENERGY EFFICIENT SITE MANAGER - 04/16/2023 7:00 PM EDT Subjective The history is provided by the patient. No grain mill products inspector was used. HPI Lata Smith is a [...] (HCC) 09/03/2020 COPD (chronic obstructive pulmonary disease) ([facility]) Degeneration of intervertebral disc, site unspecified Depressive [...] have confirmed and edited as necessary, the [facility] Review of Systems Constitutional: Negative for [...] for higher level of care were discussed indetail warranting prompt ER evaluation. Perla Gautam APRN.ENERGY EFFICIENT SITE MANAGER documented in this encounterAcmc Healthcare System Glen[facility]igh07-03-2023 Miscellaneous Notes* Telephone Encounter - Mahi Chaidez - 04/09/2023 10:55 AM EDT Patient returned call and scheduled. Mahiday Chaidez * Telephone Encounter - Mahi Chaidez - 04/09/2023 10:45 AM EDT 2nd attempt. LM for patient to return call. When patient calls, please schedule as directed by the research nurse's note below: Can we please get this patient who is on clinical trial [id number] scheduled around 05/11/23, but not later than 05/14/[address] chest/abd/pelv the orders are already in. Thank you! Mahi Chaidez * Telephone Encounter - Mahiday Chaidez - 04/05/2023 12:11 PM EDT Per Research Nurse routing comment: Can we please get this patient who is on clinical trial [id number] scheduled around 05/11/23, but not later than 05/14/[address] chest/abd/pelv the orders are already in. Thank you! LM for patient to return call. When patient calls, please schedule as directed above, document and close this note. Mahi Chaidez documented in this encounterAcmc Healthcare System Glen[facility]igh06-27-2023 History of Present illness Narrative* Telly Duncan, - 04/03/2023 11:59 AM EDT Oncologic problem(s): 1) Stage IV, non-small cell (adenocarcinoma) lung cancer. HPI: 62-year-old lady with history of hypertension cardiovascular disease recent OR in October 2019, status post coronary stents x3 on Plavix and aspirin who presented with worsening shortness of breath and hemoptysis for several months. Patient was seen in primary care clinic in May was treatedwith antibiotic without improvement. She was seen by Dr. Castillo and a CT chest revealed a lung mass and mediastinal adenopathy. She had no fever Chills, rigor, pleuritic chest pain, chest trauma. She has stable exertional dyspnea with activities of daily living, and exertional wheezing. She also complained of severe right hip pain along with pressure on her right side of her chest forcouple months. Her staging PET scan on 08/03/2020 unfortunately showed metastatic disease. She had bronchoscopy and EBUS biopsy of the mediastinal lymph node on 08/19/2020. Biopsy was consistent withnon-small cell, favoring adenocarcinoma the lung. She is [...] tenderness. SKIN: No jaundice or rash. NEUROLOGIC: crop roller II-XII are grossly intact. No focal motor [...] Abs Lymph 1.00 - 4.00 k/uL 1.57 Grimes% % 6.4 Abs Grimes <0.87 k/uL 0.75 Eosin% % 1.0 Abs [...] history of COPD, coronary artery disease with metastaticnon-small cell lung cancer (right lower lobe-favoring adenocarcinoma) [...] variant detected. KRAS A sequence change: [id number].34_[id number] (p.[id number]) was detected at approximately 30% allelic proportion. [...] which included preparing to see the patient, [id number] patient care, completing clinical documentation, obtaining and/or reviewing separately obtained history, performing a medically appropriate examination, counseling and educating the pat ient/family/caregiver, ordering medications, tests, or procedures, communicating with other HCPs (not separately reported), and communicating results to the patient/family/caregiver. Telly Duncan DO Cc: Fiona Durant MD. [facility] documented in this encounterAcmc Healthcare System Glenbeigh06-27-2023 History of Present illness Narrative* Liaz Canas RN - 04/03/2023 10:40 AM EDT Patient does not need to be seen today for study - patient is in follow-up and is due to be seen inAugust by research. Patient US of the thyroid reviewed with Telly Duncan D.O. and the ultrasound of her thyroid showed an 8 mm benign- appearing nodule. No further work-up or imaging indicated. Liza Canas RN documented in this encounterAcmc Healthcare System Glen[facility]igh06-22-2023 History of Present illness Narrative* Liza Canas RN - 03/29/2023 2:22 PM EDT Opened in error documented in this encounterAcmc Healthcare System Glenbeigh06-14-2023 Miscellaneous Notes* Telephone Encounter - Deb Hoover LPN - 03/21/2023 2:08 PM EDT Spoke with patient. Deb Hoover LPN * Telephone Encounter - Deb Hoover LPN - 03/19/2023 5:14 PM EDT Message left for patient to contact office for questions. Deb Hoover LPN * Telephone Encounter - Kim Combs Pss - 03/19/2023 2:48 PM EDT Relayed message to patient. She had questions regarding message * Telephone Encounter - Telly Duncan DO - 03/19/2023 1:23 PM EDT Can let her know the ultrasound of her thyroid showed an 8 mm benign-appearing nodule. No further work-up or imaging indicated. Telly Duncan DO documented in this encounterAcmc Healthcare System Glenbeigh06-14-2023 Miscellaneous Notes* Telephone Encounter - Lauren Presley LPN - 03/21/2023 10:49 AM EDT Detailed message left for patient. Advair and Incruse substituted per EB Lauren Presley LPN * Telephone Encounter - Lauren Presley LPN - 03/21/2023 9:11 AM EDT Fax from [place] [employer] that [employer] denied. They do not have a prior trial of Dulera on file forthe patient and state patient must have two 30-day trials of formulary alternatives prior to approval. Formulary ICC/LABA Symbicort (TONIO), Advair, Dulera. Also covered for triple therapy are Spiriva, Incruse. Lauren Presley LPN documented in this encounterAcmc Healthcare System Glenbeigh06-12-2023 History of Present illness Narrative* KATIE Leach - 03/19/2023 11:05 AM EDT PULM FUNCTION SMARTBLOCK: Provider: Georgina Morgan MD Assisting Tech: KATIE Leach Spirometry w/BD: 1 documented in this encounterAcmc Healthcare System Glenbeigh06-09-2023 History of Present illness Narrative* Meenakshi Capone RDMS - 03/16/2023 2:30 PM EDT Radiology Service Progress Note PATIENT NAME: Lata Smith DATE OF SERVICE: March 16, 2023 TIME: 3:28 PM PATIENT IDENTITY VERIFICATION COMPLETED USING TWO (2) IDENTIFIERS: Name and Date of confirmedby patient verbally. FALL SCREENING: Has the patient [...] 16, 2023 3:28 PM documented in this encounterAcmc Healthcare System Glen[facility]igh06-05-2023 Miscellaneous Notes* Telephone Encounter - Nancy Celestin Ma - 03/12/2023 4:18 PM EDT Patient was scheduled for 2 week post op left ring trigger finger release today and cancelled appointment and did not reschedule. Called and spoke with patient. Offered an appointment on Friday 03/16 with Ne but patient declined. States she removed the sutures herself and does not want to come inuntil her 6 week post op visit with Dr. Hassan on 04/12. documented in this encounterAcmc Healthcare System Glenbeigh05-16-2023 Miscellaneous Notes* Telephone Encounter - Kim Her - 02/20/2023 4:23 PM EDT Relayed message to patient. * Telephone Encounter - Telly Duncan DO - 02/20/2023 4:12 PM EDT 2 packets tonight then 1 packet daily. Telly Duncan DO * Telephone Encounter - Hoa Gooden LPN - 02/20/2023 2:15 PM EDT Pt. Stated she hasn't taken the potassium in over a week. She will take 2 packets this evening, also informed she will not do potassium IV. Hoa Gooden LPN * Telephone Encounter - Telly Duncan DO - 02/20/2023 2:00 PM EDT Can we find out how exactly she is taking potassium? Telly Duncan DO documented in this encounterAcmc Healthcare System Glen[facility]igh05-16-2023 History of Present illness Narrative* Telly Duncan DO - 02/20/2023 11:01 AM EDT Oncologic problem(s): 1) Stage IV, non-small cell (adenocarcinoma) lung cancer. HPI: 61-year-old lady with history of hypertension cardiovascular disease recent OR in October 2019, status post coronary stents x3 on Plavix and aspirin who presented with worsening shortness of breath and hemoptysis for several months. Patient was seen in primary care clinic in May was treatedwith antibiotic without improvement. She was seen by Dr. Castillo and a CT chest revealed a lung mass and mediastinal adenopathy. She had no fever Chills, rigor, pleuritic chest pain, chest trauma. She has stable exertional dyspnea with activities of daily living, and exertional wheezing. She also complained of severe right hip pain along with pressure on her right side of her chest forcouple months. Her staging PET scan on 08/03/2020 unfortunately showed metastatic disease. She had bronchoscopy and EBUS biopsy of the mediastinal lymph node on 08/19/2020. Biopsy was consistent withnon-small cell, favoring adenocarcinoma the lung. She is [...] F), weight 93.2 kg (205 lb 8 oz),last menstrual period 11/04/2012, SpO2 95 %. Well-appearing [...] tenderness. SKIN: No jaundice or rash. NEUROLOGIC: crop roller II-XII are grossly intact. No focal motor [...] Abs Lymph 1.00 - 4.00 k/uL 1.19 Grimes% % 6.1 Abs Grimes <0.87 k/uL 0.36 Eosin% % 2.7 Abs Eosin <0.46 k/uL 0.16 Baso% % 0.8 Abs Baso <0.11 k/uL 0.05 Immature Gran % % 0.3 IMMATURE GRANS (ABS) <0.10 k/uL <0.03 NRBC /100 WBC 0.0 Absolute nRBC <0.01 k/uL <0.01 DTYPE Auto ASSESSMENT/PLAN: The patient is a 61-year-old female with a history of COPD, coronary artery disease with metastaticnon-small cell lung cancer (right lower lobe-favoring adenocarcinoma) [...] variant detected. KRAS A sequence change: c.34_35delinsTT (p.[id number]) was detected at approximately 30% allelic proportion. [...] MiraLAX as needed for constipation. -Follow-up with [facility] 3) COPD /tobacco use Assessment: [...] which included preparing to see the patient, [id number] patient care, completing clinical documentation, obtaining and/or reviewing separately obtained history, performing a medically appropriate examination, counseling and educating the pat ient/family/caregiver, ordering medications, tests, or procedures, and communicating results to thepatient/family/caregiver. Telly Ducnan DO Cc: Fiona Durant MD. [facility] documented in this encounterAcmc Healthcare [facility]igh05-08-2023 History of Present illness Narrative* Liza Canas RN - 02/12/2023 10:26 AM EDT RECIST TUMOR MEASUREMENTS IRB #: [id number] / [id number] Image Modality: CT ABD/PEL W IVCON Image [...] RN February 12, 2023 documented in this encounterAcmc Healthcare System Glen[facility]igh05-05-2023 History of Present illness Narrative* Areli Mccoy, RT(R) - 02/09/2023 10:00 AM EDT Radiology Service Progress Note DATE OF SERVICE: [...] creatinine assay has traceable calibration to isotope dilution- mass spectrometry. Refer to KDIGO guidelines for clinical interpretation. In patients with unstable renal function, e.g. those with acute kidney injury, the eGFRmay not accurately reflect actual GFR. eGFR- Date Value Ref Range Status 11/22/2021 >60 Final P.O.C.T. RESULTS: POC done: Yes, See Lab Tab February 09, 2023 TREATMENT: N/A PERIPHERAL IV DATA: Ambulatory: A peripheral IV was started in the Left antecubital site with a Angio cath: 22 gauge. RADIOLOGY DEPARTMENT: CT; Exam(s) Completed: Chest Abdomen Pelvis SIGNATURE: RT Pete(Kyree) PATIENT NAME: Lata Smith DATE: February 09, 2023 TIME: 1:59 PM documented in this encounterAcmc Healthcare [facility] Glen[facility]igh05-03-2023 Miscellaneous Notes* Telephone Encounter - Radha Doan Ma - 02/07/2023 1:41 PM EDT Surgery has been scheduled as requested. * Telephone Encounter - Radha Doan Ma - 02/06/2023 4:37 PM EDT Patient called and she will move surgery date to 02/26/2023. Surgical request completed. Post op appointments have been scheduled and mailed to patient. * Telephone Encounter - Radha Doan Ma - 02/06/2023 3:51 PM EDT I left another message for patient to contact office. Funinhand message sent as well. * Telephone Encounter - Radha Doan Ma - 02/02/2023 10:29 AM EDT Surgical request completed for left ring trigger finger release at [facility] on 03/22/2023. documented in this encounterAcmc Healthcare [facility] Glen[facility]igh05-03-2023 Miscellaneous Notes* Telephone Encounter - Radha Doan Ma - 02/07/2023 8:01 AM EDT I spoke with patient on the phone. See telephone encounter. documented in this encounterAcmc Healthcare System Glenbeigh04-27-2023 History of Present illness Narrative* Bebe Flores, SOLUTIONS DEVELOPMENT ANALYST.CAMP RECREATION SPECIALIST - 02/01/2023 2:28 PM EDT SUBJECTIVE: ALPHA-1 ANTITRYPSIN DEFICIENCY SCREENING Never done MAMMOGRAM due on 08/11/2017 PNEUMOCOCCAL(2 - PCV) due on 08/29/2018 DTAP,TDAP,TD(2 - Td or Tdap) due on 12/25/2021 COLORECTAL CANCER SCREENING due on 11/21/2022 JOSELO Lata Smith is a 60 year old female.ACTIVE [...] daily, prednisone 10 mg tapering dose and benzonatateand albuterol nebulizer solution. Today reports feeling somewhat improved but not yet back to baseline. Cough: less than last week, productive purulent Wheeze: yes mostly at night Shortness of breath: yes more than baseline Sputum production: remains increased but less than last week Fever: perceived Smoking: current smoker, wants to quit. Would like to use Chantix. No current daycare provider outside of . Followed by [facility] for CAD. Followed by Dr [...] HENT: Head: Normocephalic and atraumatic. Mouth/Throat: Lips: [place]. Mouth: Mucous membranes are moist. Eyes: Conjunctiva/sclera: [...] 2 Puffs as instructed every 4 hours asneeded for Wheezing/Shortness of Breath. Do not replace with ProAir. diclofenac (VOLTAREN) 1 % topical gel Apply 2 g to affected area four times daily as needed (upper extremity joint(s)). aluminum-magnesium hydroxide-simethicone (MAALOX,MYLANTA,MAG-AL PLUS) 200-200-20 mg/5 mL suspensionTake 15 mL by mouth every 6 hours [...] 1 tablet by mouth once daily as needed(fluid retention/leg swelling). verapamil ER (VERELAN) 120 mg 24 hr capsule Take 1 capsule by mouth once daily. oxyCODONE-acetaminophen (PERCOCET) 7.5-325 mg tablet Take 1 tablet by mouth every 8 hours as neededfor pain. rosuvastatin (CRESTOR) 40 mg tablet Take [...] in one nostril as needed for overdose. Mayrepeat every 2 to 3 min in alternating [...] daily. Rinse mouth after use. simethicone, chewable (OR-ACID GAS RELIEF) 80 mg chewable tablet Take [...] 1.00 - 4.00 k/uL 1.33 1.25 1.35 Grimes% % 7.2 6.2 6.7 Abs Grimes <0.87 k/uL 0.46 0.35 0.38 Eosin% % [...] not feeling improved. 6-month follow-up.PCP Bebe Flores APRN.CAMP RECREATION SPECIALIST Medical Decision Making: Problems: Low: Acute, uncomplicated illness or injury Risk: Moderate: Drug management Medical Decision Making Level: 3 - Low documented in this encounterAcmc Healthcare System Glen[facility]igh04-25-2023 Miscellaneous Notes* Telephone Encounter - Brandi Edgar LPN - 01/30/2023 4:10 PM EDT Patient is scheduled, 02/01/2023. Refill will be done at the appt. Brandi Edgar LPN * Telephone Encounter - Maris Enriquez LPN - 01/25/2023 3:34 PM EDT Left a message for pt to call the office and ask to speak to a nurse. Maris Enriquez LPN * Telephone Encounter - Fiona Durant MD - 01/24/2023 1:31 PM EDT Needs 3 month follow ups scheduled--nothing in [...] with ProAir. Authorizing Provider: FIONA DURANT MD * Telephone Encounter - Mabel Lorenzo LPN - 01/23/2023 10:18 AM EDT Please see below. Patient requesting the acetaminophen-Hydrocodone 5-500. Last prescribed in 2012 for IBS pain * Telephone Encounter - Oneida Preston - 01/23/2023 9:58 AM EDT Patient requesting the following medication: acetaminophen-HYDROcodone 5-500 [...] notify patient. Oneida Preston documented in this encounterAcmc Healthcare System Glen[facility]igh04-25-2023 Miscellaneous Notes* Telephone Encounter - Marybel Pérez LPN - 01/30/2023 11:06 AM EDT Pt notified of provider message. Marybel Pérez LPN * Telephone Encounter - Barbie Flynn RN - 01/30/2023 10:20 AM EDT Called and left a voicemail for the Patient to call back and ask for a nurse to receive the providers message. Barbie Flynn RN * Telephone Encounter - Kathy Almaraz APRN.CNP - 01/29/2023 4:32 PM EDT With improvement no need to xray at this time. Can be reconsidered at follow up. Thank you Kathy Almaraz APRN.CNP * Telephone Encounter - Clovis Delgado RN - 01/29/2023 9:56 AM EDT Patient returned call and given provider's message. Patient reports she is feeling a lot better, much improved. Reports she is only coughing a little now. * Telephone Encounter - Keke Kasper Ma - 01/29/2023 9:14 AM EDT Left message for return call. * Telephone Encounter - Kathy Almaraz APRN.CNP - 01/29/2023 8:48 AM EDT Please see how patient is feeling? Any improvement? Thank you Kathy Almaraz APRN.CNP * Telephone Encounter - Barbie Flynn RN - 01/25/2023 4:11 PM EDT Pt called in and reports she was told to get an x-ray today. She reports she waited downstairs for an hour and was never called. No order was placed for an x-ray. Pt reports she can come in tomorrow to get done. Please call Pt if provider would like an x-ray done. documented in this encounterAcmc Healthcare System Glenbeigh04-20-2023 History of Present illness Narrative* Kathy Almaraz APRN.CNP - 01/25/2023 10:54 AM EDT CC: Patient presents with: Cough: Productive cough [...] Asthma Cancer of trachea, bronchus, and lung ([facility]) 09/03/2020 COPD (chronic obstructive pulmonary disease) ([facility]) Degeneration of intervertebral disc, site unspecified Depressive [...] 2 Puffs as instructed every 4 hours asneeded for Wheezing/Shortness of Breath. Do not replace with ProAir. diclofenac (VOLTAREN) 1 % topical gel Apply 2 g to affected area four times daily as needed (upper extremity joint(s)). aluminum-magnesium hydroxide-simethicone (MAALOX,MYLANTA,MAG-AL PLUS) 200-200-20 mg/5 mL suspensionTake 15 mL by mouth every 6 hours [...] Once exam is complete flush line and de-accessaccording to line specific nursing protocol in the [...] 1 tablet by mouth once daily as needed(fluid retention/leg swelling). verapamil ER (VERELAN) 120 mg 24 hr capsule Take 1 capsule by mouth once daily. albuterol HFA (VENTOLIN HFA) 90 mcg/actuation inhaler Inhale 2 Puffs as instructed every 4 hours asneeded. oxyCODONE-acetaminophen (PERCOCET) 7.5-325 mg tablet Take 1 tablet by mouth every 8 hours as neededfor pain. rosuvastatin (CRESTOR) 40 mg tablet Take [...] in one nostril as needed for overdose. Mayrepeat every 2 to 3 min in alternating [...] daily. Rinse mouth after use. simethicone, chewable (OR-ACID GAS RELIEF) 80 mg chewable tablet Take [...] plan. Kathy Almaraz APRN.CNP documented in this encounterAcmc Healthcare System Glen[facility]igh04-04-2023 Miscellaneous Notes* Telephone Encounter - Kim Her - 01/09/2023 2:[address] scheduled and patient informed documented in this encounterAcmc Healthcare System Glenbeigh04-04-2023 History of Present illness Narrative* Carrie Preciado APRN.ENERGY EFFICIENT SITE MANAGER - 01/09/2023 11:24 AM EDT Chief Complaint Patient presents with: Established Patient HPI: Lata Smith is a 62 year old female who presents here today for evaluation for treatment tomorrow. Per Dr. Duncan's previous note: H/o hypertension cardiovascular disease recent OR in October 2019, status post coronary stents [...] on her right side of her chest forcouple months. Her staging PET scan on 08/03/2020 unfortunately showed metastatic disease. She had bronchoscopy and EBUS biopsy of the mediastinal lymph node on 08/19/2020. Biopsy was consistent withnon-small cell, favoring adenocarcinoma the lung. She is [...] 1.00 - 4.00 k/uL 1.26 1.71 1.29 Grimes% % 6.1 7.1 5.7 Abs Grimes <0.87 k/uL 0.41 0.55 0.40 Eosin% % [...] 11/24/22-Dr. Duncan was copied and pasted, documentation hasbeen reviewed and edited as necessary for today's visit. Carrie Preciado APRN.CNP documented in this encounterAcmc Healthcare System Glen[facility]igh04-04-2023 History of Present illness Narrative* Liza Canas RN - 01/09/2023 10:58 AM EDT IRB#: [id number], [facility]# [id number]: A Randomized, Phase III Study of Firstline Immunotherapy alone or in Combination with Chemotherapy in Induction/Maintenance or Postprogression in Advanced Nonsquamous Non-Small Cell Lung Cancer (NSCLC) with Immunobiomarker SIGNature-driven Analysis IC signed 09/13/2020 Randomized 09/22/2020 to treatment arm A: 1st line [id number] (pembrolizumab) followed by 2nd line Pemetrexed/Carboplatin. Study ID: [id number] Patient off study treatment protocol 10/17/2022 - [...] DOSE) 81 mg, ORAL, DAILY Hx of OR 10/2019 clopidogrel (PLAVIX) 75 mg, ORAL, DAILY Hx of OR 10/2019 diclofenac sodium (VOLTAREN) 4 g, TOPICAL, [...] PRINIVIL) 5 mg, ORAL, DAILY Hx of OR 10/2019 morphine SR (MS CONTIN) 30 mg, [...] mg, ORAL, DAILY Dyslipidemia 02/27/2020 simethicone, chewable (OR-ACID GAS RELIEF(SIMETHICON)) 80 mg, ORAL, EVERY 6 HOURS NEEDED Irritable bowel 10/16/2012 traZODone (DESYREL) 50 mg, ORAL, AT BEDTIME NEEDED Depression 07/26/2010 10/06/2021 verapamil ER (VERELAN) 120 mg 24 hr capsule Verapamil Verapamil Hcl Active 0 MG DAILY October 10, 2019 7:53am 10-10-2019 [facility] ([id number]) Hx OR 10/2019 Motrin 800mg, 1 tab every 8 hours as prn Headaches 08/28/2016 Stopped 12/20/2020 but continue to take PRN Headaches 01/21/2008 Flexeril 10mg, 1 tab twice daily prn Muscles spasms 08/15/2005 Sennosides 17.2 mg ORAL 2 TIMES DAILY Constipation 10/18/2020 Percocet 5/325mg, [id number] prn Pain 11/05/2020 calcium-cholecalciferol, D3, (OSCAL+D ) [...] None. Action Required: None as value is non- fasting. Outcome: Ongoing. Nausea: Grade 1: Start date:08/10/2022 [...] same since last exam a year ago. Recommendedre-check in 1 year. NO changes Drugs to [...] treatment, confirmed by Carrie Preciado APRN, CNP. Keldron orders signed. Patient has contact information for Dr. Duncan's office as well as [facility] for any questions/concerns. PATRICIO Jacobson, RN, Clinical Research Nurse [phone] documented in this encounterAcmc Healthcare System Glenbeigh02-23-2023 Miscellaneous Notes* Telephone Encounter - Sherry Don LPN - 11/30/2022 8:08 AM EST See other encounter. Dr. Durant corrected letter * Telephone Encounter - Bebe Flores APRN.CAMP RECREATION SPECIALIST - 11/28/2022 4:45 PM EST Letter printed, please process * Telephone Encounter - Ann Clovis Carpenter Pss - 11/28/2022 3:26 PM EST Lata is asking for a permanent handicap placard for her car. Please call her back at [phone] documented in this encounterAcmc Healthcare System Glenbeigh02-22-2023 Miscellaneous Notes* Telephone Encounter - Fiona Durant MD - 11/29/2022 7:38 PM EST Printed corrected parking placard documented in this encounterAcmc Healthcare System Glenbeigh02-06-2023 History of Present illness Narrative* Areli Mccoy RT(R) - 11/13/2022 3:00 PM EST Radiology Service Progress Note DATE OF SERVICE: [...] creatinine assay has traceable calibration to isotope dilution- mass spectrometry. Refer to KDIGO guidelines for clinical interpretation. In patients with unstable renal function, e.g. those with acute kidney injury, the eGFRmay not accurately reflect actual GFR. eGFR- Date [...] 2022 TIME: 3:38 PM documented in this encounterAcmc Healthcare System Glenbeigh01-17-2023 History of Present illness Narrative* Fiona Durant MD - 10/24/2022 4:02 PM EST This note was created using Ruby Grouperiter. Subjective Lata Smith is a 61 year [...] Once exam is complete flush line and de-accessaccording to line specific nursing protocol in the [...] 1 tablet by mouth once daily as needed(fluid retention/leg swelling). verapamil ER (VERELAN) 120 mg 24 hr capsule Take 1 capsule by mouth once daily. lisinopril (ZESTRIL, PRINIVIL) 5 mg tablet Take 1 tablet by mouth once daily. albuterol HFA (VENTOLIN HFA) 90 mcg/actuation inhaler Inhale 2 Puffs as instructed every 4 hours asneeded. varenicline (CHANTIX) 1 mg tablet Take 1 tablet by mouth twice daily. oxyCODONE-acetaminophen (PERCOCET) 7.5-325 mg tablet Take 1 tablet by mouth every 8 hours as neededfor pain. rosuvastatin (CRESTOR) 40 mg tablet Take [...] daily. Rinse mouth after use. simethicone, chewable (OR-ACID GAS RELIEF) 80 mg chewable tablet Take [...] in one nostril as needed for overdose. Mayrepeat every 2 to 3 min in alternating nostrils until medical assistance is available aspirin, enteric coated (ASPIRIN, ENTERIC COATED) 81 mg EC tablet Take 81 mg by mouth once daily. No current facility-administered medications for this visit. Review of Systems Objective BP 128/68 Pulse 79 Temp 36.3 C (97.4 F) Resp 18 Wt 95.3 kg (210 lb) LMP 11/04/2012 XeB195% BMI 40.67 kg/m Last 5 Encounter Wt [...] (CHANTIX) 1 mg tablet 4. History of OR (myocardial infarction) I25.2 losartan (COZAAR) 25 mg [...] meds. Fiona Durant MD documented in this encounterAcmc Healthcare [facility]01-10-2023 History of Present illness Narrative* Anca Huddleston MD - 10/17/2022 10:48 AM EST PATIENT NAME: Lata Smith. CLINIC NO: [id number]. ATTENDING PHYSICIAN: Anca Huddleston MD. DATE OF SERVICE: 10/16/2022 DIAGNOSIS: Stage IV, non-small cell (adenocarcinoma) lung cancer. HPI: 61-year-old lady with history of hypertension cardiovascular disease recent OR in October 2019, status post coronary stents x3 on Plavix and aspirin who presented with worsening shortness of breath and hemoptysis for several months. Patient was seen in primary care clinic in May was treatedwith antibiotic without improvement. She was seen by Dr. Castillo and a CT chest revealed a lung mass and mediastinal adenopathy. She had no fever Chills, rigor, pleuritic chest pain, chest trauma. She has stable exertional dyspnea with activities of daily living, and exertional wheezing. She also complained of severe right hip pain along with pressure on her right side of her chest forcouple months. Her staging PET scan on 08/03/2020 unfortunately showed metastatic disease. She had bronchoscopy and EBUS biopsy of the mediastinal lymph node on 08/19/2020. Biopsy was consistent withnon-small cell, favoring adenocarcinoma the lung. She is [...] Sclerae white, conjunctivae pink. PEERL. EOMs are intact.Oropharynx is benign. LYMPHATICS: There is no palpable [...] Abs Lymph 1.00 - 4.00 k/uL 1.26 Grimes% % 6.1 Abs Grimes <0.87 k/uL 0.41 Eosin% % 2.2 Abs [...] sequence: (NM_004448.2)]. KRAS A sequence change: c.34_35delinsTT (p.Lfb01Hmf) was detected at approximately 30% allelic proportion [...] MiraLAX as needed for constipation. -Follow-up with [facility] 3) dyspnea and cough [...] Huddleston MD Cc: Fiona Durant MD [facility] documented in this encounterAcmc Healthcare System [facility]12-20-2022 History of Present illness Narrative* Anca Huddleston MD - 09/26/2022 10:28 AM EST PATIENT NAME: Lata Smith. CLINIC NO: [id number]. ATTENDING PHYSICIAN: Anca Huddleston MD. DATE OF SERVICE: 09/26/2022 DIAGNOSIS: Stage IV, non-small cell (adenocarcinoma) lung cancer. HPI: 61-year-old lady with history of hypertension cardiovascular disease recent OR in October 2019, status post coronary stents x3 on Plavix and aspirin who presented with worsening shortness of breath and hemoptysis for several months. Patient was seen in primary care clinic in May was treatedwith antibiotic without improvement. She was seen by Dr. Castillo and a CT chest revealed a lung mass and mediastinal adenopathy. She had no fever Chills, rigor, pleuritic chest pain, chest trauma. She has stable exertional dyspnea with activities of daily living, and exertional wheezing. She also complained of severe right hip pain along with pressure on her right side of her chest forcouple months. Her staging PET scan on 08/03/2020 unfortunately showed metastatic disease. She had bronchoscopy and EBUS biopsy of the mediastinal lymph node on 08/19/2020. Biopsy was consistent withnon-small cell, favoring adenocarcinoma the lung. She is [...] Sclerae white, conjunctivae pink. PEERL. EOMs are intact.Oropharynx is benign. LYMPHATICS: There is no palpable [...] Abs Lymph 1.00 - 4.00 k/uL 1.23 Grimes% % 5.9 Abs Grimes <0.87 k/uL 0.40 Eosin% % 2.4 Abs [...] sequence: (NM_004448.2)]. KRAS A sequence change: c.34_35delinsTT (p.Fly89Mir) was detected at approximately 30% allelic proportion [...] of study this week. We will change theschedule pembrolizumab 400 mg IV every 42 days [...] reviewed and edited and updated as necessary. Anac Huddleston MD Cc: Fiona Durant MD [facility] documented in this encounterAcmc Healthcare [facility]12-20-2022 History of Present illness Narrative* Liza Canas RN - 09/26/2022 10:24 AM EST IRB#: [id number], [facility]# [id number]: A Randomized, Phase III Study of Firstline Immunotherapy alone or in Combination with Chemotherapy in Induction/Maintenance or Postprogression in Advanced Nonsquamous Non-Small Cell Lung Cancer (NSCLC) with Immunobiomarker SIGNature-driven Analysis IC signed 09/13/2020 Randomized 09/22/2020 to treatment arm A: 1st line MK-3475 (pembrolizumab) followed by 2nd line Pemetrexed/Carboplatin. Study ID: [id number] Pt examined by Anca Huddleston MD on 09/26/2022 in anticipation of Cycle 35 for trial purposes (34 due to one missed here) with patient of IRB# [id number] visit assessment. Patient remains on first line therapy. Patient feeling less sore and fatigued. Patient down to a pack a week and vapes occasionally, but has not been drinking. Patient encouraged to reduce intake. Patient managing pain with [facility] palliative care still and feels this has [...] DOSE) 81 mg, ORAL, DAILY Hx of OR 10/2019 clopidogrel (PLAVIX) 75 mg, ORAL, DAILY Hx of OR 10/2019 diclofenac sodium (VOLTAREN) 4 g, TOPICAL, [...] PRINIVIL) 5 mg, ORAL, DAILY Hx of OR 10/2019 morphine SR (MS CONTIN) 30 mg, [...] mg, ORAL, DAILY Dyslipidemia 02/27/2020 simethicone, chewable (OR-ACID GAS RELIEF(SIMETHICON)) 80 mg, ORAL, EVERY 6 HOURS NEEDED Irritable bowel 10/16/2012 traZODone (DESYREL) 50 mg, ORAL, AT BEDTIME NEEDED Depression 07/26/2010 10/06/2021 verapamil ER (VERELAN) 120 mg 24 hr capsule Verapamil Verapamil Hcl Active 0 MG DAILY October 10, 2019 7:53am 10-10-2019 [facility] ([id number]) Hx OR 10/2019 Motrin 800mg, 1 tab every 8 hours as prn Headaches 08/28/2016 Stopped 12/20/2020 but continue to take PRN Headaches 01/21/2008 Flexeril 10mg, 1 tab twice daily prn Muscles spasms 08/15/2005 Sennosides 17.2 mg ORAL 2 TIMES DAILY Constipation 10/18/2020 Percocet 5/325mg, [id number] prn Pain 11/05/2020 calcium-cholecalciferol, D3, (OSCAL+D ) [...] None. Action Required: None as value is non- fasting. Outcome: Ongoing. Nausea: Grade 1: Start date:08/10/2022 [...] same since last exam a year ago. Recommendedre-check in 1 year. NO changes Drugs to [...] meets criteria for treatment, confirmed by . Keldron orders signed. Patient has contact information for Dr. Duncan/John's office as well as [facility] Department for any questions/concerns. PATRICIO Jacobson, RN, Clinical Research Nurse [phone] documented in this encounterAcmc Healthcare System Glen[facility]igh11-30-2022 History of Present illness Narrative* Daily Lincoln RN - 09/06/2022 1:33 PM EST Assessment unchanged from Dr Huddleston office visit on 09/04/22 documented in this encounterAcmc Healthcare System [facility]11-28-2022 History of Present illness Narrative* Liza Canas RN - 09/04/2022 12:42 PM EST IRB#: [id number], [facility]# [id number]: A Randomized, Phase III Study of Firstline Immunotherapy alone or in Combination with Chemotherapy in Induction/Maintenance or Postprogression in Advanced Nonsquamous Non-Small Cell Lung Cancer (NSCLC) with Immunobiomarker SIGNature-driven Analysis IC signed 09/13/2020 Randomized 09/22/2020 to treatment arm A: 1st line MK-3475 (pembrolizumab) followed by 2nd line Pemetrexed/Carboplatin. Study ID: [id number] Pt examined by Anca Huddleston MD on 08/14/2022 in anticipation of Cycle 34 for trial purposes (33 due to one missed here) with patient of IRB# [id number] visit assessment. Patient remains on first line therapy. Patient feeling less sore and fatigued. Patient down to a pack a week and vapes occasionally, but has not been drinking. Patient encouraged to reduce intake. Patient managing pain with hip w ith palliative care still and feels this has [...] DOSE) 81 mg, ORAL, DAILY Hx of OR 10/2019 clopidogrel (PLAVIX) 75 mg, ORAL, DAILY Hx of OR 10/2019 diclofenac sodium (VOLTAREN) 4 g, TOPICAL, [...] PRINIVIL) 5 mg, ORAL, DAILY Hx of OR 10/2019 morphine SR (MS CONTIN) 30 mg, [...] mg, ORAL, DAILY Dyslipidemia 02/27/2020 simethicone, chewable (OR-ACID GAS RELIEF(SIMETHICON)) 80 mg, ORAL, EVERY 6 HOURS NEEDED Irritable bowel 10/16/2012 traZODone (DESYREL) 50 mg, ORAL, AT BEDTIME NEEDED Depression 07/26/2010 10/06/2021 verapamil ER (VERELAN) 120 mg 24 hr capsule Verapamil Verapamil Hcl Active 0 MG DAILY October 10, 2019 7:53am 10-10-2019 [facility] ([id number]) Hx OR 10/2019 Motrin 800mg, 1 tab every 8 hours as prn Headaches 08/28/2016 Stopped 12/20/2020 but continue to take PRN Headaches 01/21/2008 Flexeril 10mg, 1 tab twice daily prn Muscles spasms 08/15/2005 Sennosides 17.2 mg ORAL 2 TIMES DAILY Constipation 10/18/2020 Percocet 5/325mg, [id number] prn Pain 11/05/2020 calcium-cholecalciferol, D3, (OSCAL+D ) [...] None. Action Required: None as value is non- fasting. Outcome: Ongoing. Nausea: Grade 1: Start date:08/10/2022 [...] same since last exam a year ago. Recommendedre-check in 1 year. NO changes Drugs to [...] treatment following 09/28/2022: Treatment C35 10/17/2021: CARIN Huddleston, labs, with treatment following 10/19/2021: Treatment C36 The provider has reviewed and verified the information included within this note, including AE information. Patient meets criteria for treatment, confirmed by . Keldron orders signed. Patient has contact information for Dr. Duncan/John's office as well as [facility] Department for any questions/concerns. PATRICIO Jacobson, RN, Clinical Research Nurse [phone] documented in this encounterAcmc Healthcare [facility]11-09-2022 History of Present illness Narrative* Liza Canas RN - 08/16/2022 9:45 AM EST RECIST TUMOR MEASUREMENTS IRB #: [id number] / [id number] Image Modality: CT Image Date: 05/05/2022 and [...] RN August 14, 2022 documented in this encounterAcmc Healthcare [facility]igh2022 Miscellaneous Notes* Telephone Encounter - Tameka Ray - 08/15/2022 9:13 AM EST PT is scheduled as directed * Telephone Encounter - Tameka Ray - 08/14/2022 2:52 PM ESTSummary: AVS 08/14 Follow-up disposition: Return in about 3 weeks (around 09/04/2022). Check out comments: -Continue Pembrolizumab every 21 days per study protocol. 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 CLINIC NO: [id number]. ATTENDING PHYSICIAN: Anca Huddleston MD. DATE OF SERVICE: 08/14/2022 DIAGNOSIS: Stage IV, non-small cell (adenocarcinoma) lung cancer. HPI: 61-year-old lady with history of hypertension cardiovascular disease recent OR in October 2019, status post coronary stents x3 on Plavix and aspirin who presented with worsening shortness of breath and hemoptysis for several months. Patient was seen in primary care clinic in May was treatedwith antibiotic without improvement. She was seen by Dr. Castillo and a CT chest revealed a lung mass and mediastinal adenopathy. She had no fever Chills, rigor, pleuritic chest pain, chest trauma. She has stable exertional dyspnea with activities of daily living, and exertional wheezing. She also complained of severe right hip pain along with pressure on her right side of her chest forcouple months. Her staging PET scan on 08/03/2020 unfortunately showed metastatic disease. She had bronchoscopy and EBUS biopsy of the mediastinal lymph node on 08/19/2020. Biopsy was consistent withnon-small cell, favoring adenocarcinoma the lung. She is [...] or dental issues on Zometa. She has occasionalnausea, but symptom control with Phenergan. No changes [...] Sclerae white, conjunctivae pink. PEERL. EOMs are intact.Oropharynx is benign. LYMPHATICS: There is no palpable [...] Abs Lymph 1.00 - 4.00 k/uL 1.33 Grimes% % 6.5 Abs Grimes <0.87 k/uL 0.42 Eosin% % 3.6 Abs [...] sequence: (NM_004448.2)]. KRAS A sequence change: c.34_35delinsTT (p.Gqj30Hut) was detected at approximately 30% allelic proportion [...] as needed for pain. (Alternate between or anti- inflammatory effects of ibuprofen) to decrease oxycodone tolerance [...] Cc: Fiona Durant MD documented in this encounterAcmc Healthcare System [facility]igh11-07-2022 History of Present illness Narrative* Liza Canas RN - 08/14/2022 11:21 AM EST IRB#: [id number], [facility]# [id number]: A Randomized, Phase III Study of Firstline Immunotherapy alone or in Combination with Chemotherapy in Induction/Maintenance or Postprogression in Advanced Nonsquamous Non-Small Cell Lung Cancer (NSCLC) with Immunobiomarker SIGNature-driven Analysis IC signed 09/13/2020 Randomized 09/22/2020 to treatment arm A: 1st line MK-3475 (pembrolizumab) followed by 2nd line Pemetrexed/Carboplatin. Study ID: [id number] Pt examined by Anca Huddleston MD on 08/14/2022 in anticipation of Cycle 33 for trial purposes (32 due to one missed here) with patient of IRB# [id number] visit assessment. Patient remains on first line therapy. Patient feeling less sore and fatigued - she finished moving - patient right ankle is no longer sore from fall last month. Patient down to a pack a week and vapes occasionally, but has not b een drinking. Patient encouraged to reduce intake. Patient [...] DOSE) 81 mg, ORAL, DAILY Hx of OR 10/2019 clopidogrel (PLAVIX) 75 mg, ORAL, DAILY Hx of OR 10/2019 diclofenac sodium (VOLTAREN) 4 g, TOPICAL, [...] PRINIVIL) 5 mg, ORAL, DAILY Hx of OR 10/2019 morphine SR (MS CONTIN) 30 mg, [...] mg, ORAL, DAILY Dyslipidemia 02/27/2020 simethicone, chewable (OR-ACID GAS RELIEF(SIMETHICON)) 80 mg, ORAL, EVERY 6 HOURS NEEDED Irritable bowel 10/16/2012 traZODone (DESYREL) 50 mg, ORAL, AT BEDTIME NEEDED Depression 07/26/2010 10/06/2021 verapamil ER (VERELAN) 120 mg 24 hr capsule Verapamil Verapamil Hcl Active 0 MG DAILY October 10, 2019 7:53am 10-10-2019 [facility] ([id number]) Hx OR 10/2019 Motrin 800mg, 1 tab every 8 hours as prn Headaches 08/28/2016 Stopped 12/20/2020 but continue to take PRN Headaches 01/21/2008 Flexeril 10mg, 1 tab twice daily prn Muscles spasms 08/15/2005 Sennosides 17.2 mg ORAL 2 TIMES DAILY Constipation 10/18/2020 Percocet 5/325mg, [id number] prn Pain 11/05/2020 calcium-cholecalciferol, D3, (OSCAL+D ) [...] None. Action Required: None as value is non- fasting. Outcome: Ongoing. Hypertension Grade 1: Start date: [...] same since last exam a year ago. Recommendedre-check in 1 year. NO changes Drugs to [...] meets criteria for treatment, confirmed by . Keldron orders signed. Patient has contact information for Dr. Duncan/John's office as well as [facility] Department for any questions/concerns. PATRICIO Jacobson, RN, Clinical Research Nurse [phone] documented in this encounterAcmc Healthcare System Glen[facility]igh11-03-2022 History of Present illness Narrative* Reef Areli Morales, RT(R) - 08/10/2022 2:00 PM EDT Radiology Service Progress Note DATE OF SERVICE: [...] creatinine assay has traceable calibration to isotope dilution- mass spectrometry. Refer to KDIGO guidelines for clinical interpretation. In patients with unstable renal function, e.g. those with acute kidney injury, the eGFRmay not accurately reflect actual GFR. eGFR- Date [...] 2022 TIME: 3:51 PM documented in this encounterAcmc Healthcare System Glenbeigh10-19-2022 Miscellaneous Notes* Telephone Encounter - Lavonne Celeste RN - 07/26/2022 7:[address] Huddleston - please enter Keytruda orders for today, thank you! documented in this encounterAcmc Healthcare System Glen[facility]igh10-18-2022 Miscellaneous Notes* Telephone Encounter - Oneida Preston - 07/25/2022 11:48 AM EDT Patient has been identified by name and date of : Yes Requested Prescriptions Pending Prescriptions Disp Refills ibuprofen (MOTRIN) 800 mg tablet 60 tablet 2 RX INSTRUCTIONS: Patient aware RX will be sent to pharmacy. No need to notify patient. Oneida Preston documented in this encounterAcmc Healthcare System Glen[facility]igh10-17-2022 History of Present illness Narrative* Liza Canas RN - 07/24/2022 2:45 PM EDT IRB#: [id number], [facility]# [id number]: A Randomized, Phase III Study of Firstline Immunotherapy alone or in Combination with Chemotherapy in Induction/Maintenance or Postprogression in Advanced Nonsquamous Non-Small Cell Lung Cancer (NSCLC) with Immunobiomarker SIGNature-driven Analysis IC signed 09/13/2020 Randomized 09/22/2020 to treatment arm A: 1st line MK-3475 (pembrolizumab) followed by 2nd line Pemetrexed/Carboplatin. Study ID: [id number] Pt examined by Carrie Preciado APRN/JAYLON on 07/24/2022 in anticipation of Cycle 32 for trial purposes (31 due to one missed here) with patient of IRB# [id number] visit assessment. Patient remains on first line [...] DOSE) 81 mg, ORAL, DAILY Hx of OR 10/2019 clopidogrel (PLAVIX) 75 mg, ORAL, DAILY Hx of OR 10/2019 diclofenac sodium (VOLTAREN) 4 g, TOPICAL, [...] PRINIVIL) 5 mg, ORAL, DAILY Hx of OR 10/2019 morphine SR (MS CONTIN) 30 mg, [...] mg, ORAL, DAILY Dyslipidemia 02/27/2020 simethicone, chewable (OR-ACID GAS RELIEF(SIMETHICON)) 80 mg, ORAL, EVERY 6 HOURS NEEDED Irritable bowel 10/16/2012 traZODone (DESYREL) 50 mg, ORAL, AT BEDTIME NEEDED Depression 07/26/2010 10/06/2021 verapamil ER (VERELAN) 120 mg 24 hr capsule Verapamil Verapamil Hcl Active 0 MG DAILY October 10, 2019 7:53am 10-10-2019 [facility] ([id number]) Hx OR 10/2019 Motrin 800mg, 1 tab every 8 hours as prn Headaches 08/28/2016 Stopped 12/20/2020 but continue to take PRN Headaches 01/21/2008 Flexeril 10mg, 1 tab twice daily prn Muscles spasms 08/15/2005 Sennosides 17.2 mg ORAL 2 TIMES DAILY Constipation 10/18/2020 Percocet 5/325mg, [id number] prn Pain 11/05/2020 calcium-cholecalciferol, D3, (OSCAL+D ) [...] None. Action Required: None as value is non- fasting. Outcome: Ongoing. Alkaline Phosphatase Increase Grade 1: [...] same since last exam a year ago. Recommendedre-check in 1 year. NO changes Drugs to [...] for treatment, confirmed by and Carrie Preciado. Keldron orders signed. Patient has contact information for Dr. Duncan/John's office as well as [facility] for any questions/concerns. PATRICIO Jacobson, RN, Clinical Research Nurse [phone] documented in this encounterAcmc Healthcare System Glen[facility]igh10-17-2022 Miscellaneous Notes* Telephone Encounter - Hoang Magaña Pss - 07/24/2022 2:37 PM EDT Scheduled. documented in this encounterAcmc Healthcare System Glenbeigh10-17-2022 History of Present illness Narrative* Carrie Preciado APRN.ENERGY EFFICIENT SITE MANAGER - 07/24/2022 2:03 PM EDT Chief Complaint Patient presents with: Established Patient HPI: Lata Smith is a 61 year old female who presents here today for evaluation for treatment on Sunday. Per Dr. Huddleston/Dakota's previous note: H/o hypertension cardiovascular disease recent OR in October 2019, status post coronary stents [...] on her right side of her chest forcouple months. Her staging PET scan on 08/03/2020 [...] 1.00 - 4.00 k/uL 1.27 1.13 1.33 Grimes% % 6.6 7.4 7.4 Abs Grimes <0.87 k/uL 0.43 0.44 0.47 Eosin% % [...] visit. Carrie Preciado APRN.JAYLON documented in this encounterAcmc Healthcare System Glen[facility]igh10-12-2022 History of Present illness Narrative* Fiona Durant MD - 07/19/2022 5:10 PM EDT This note was created using NoteWriter. Subjective Lata Smith is a 61 year old female. Patient presents with: Follow Up SUBJECTIVE: Lata Smith is a 61 year old year old lady here today for lady month follow up appointment for review of medical conditions. Winded all the time. Inhaler helps some. Tylenol with codeine helps with the cough so can breathe better. Takes2 to 3 per day when has flareups. Still has 20 pills left from April [...] (HCC) 09/03/2020 COPD (chronic obstructive pulmonary disease) ([facility]) Degeneration of intervertebral disc, site unspecified Depressive [...] 2 Puffs as instructed every 4 hours asneeded. varenicline (CHANTIX) 1 mg tablet Take 1 tablet by mouth twice daily. oxyCODONE-acetaminophen (PERCOCET) 7.5-325 mg tablet Take 1 tablet by mouth every 8 hours as neededfor pain. rosuvastatin (CRESTOR) 40 mg tablet Take [...] 1 tablet by mouth once daily as needed(fluid retention/leg swelling). benzonatate (TESSALON PERLE) 100 mg [...] in one nostril as needed for overdose. Mayrepeat every 2 to 3 min in alternating [...] MG DAILY October 10, 2019 7:53am 10-10-2019 [facility] ([id number]) albuterol (PROVENTIL) 2.5 mg /3 mL (0.083 %) nebulizer solution Use 3 mL via nebulizer every 6 hours as needed for Wheezing/Shortness of Breath. 1 vial contains 3 ml. fluticasone (FLONASE) 50 mcg/actuation nasal spray Use 2 Sprays in each nostril once daily. Rinse mouth after use. simethicone, chewable (OR-ACID GAS RELIEF) 80 mg chewable tablet Take [...] elevation myocardial infarction involving right coronary artery ([facility]) I21.11 lisinopril (ZESTRIL, PRINIVIL) 5 mg tablet 3. Physical debility R53.81 discussed motoroized wheelchair 4. Non-small cell lung cancer metastatic to bone ([facility]) C34.90 C79.51 Follows with oncology 5. COPD with asthma ([facility]) J44.9 6. Encounter for immunization Z23 INFLUENZA [...] lifestyle changes for effective weight loss as wellas prevention of DM, and control of BP and lipids. Fiona Durant MD documented in this encounterAcmc Healthcare System Glenbeigh09-27-2022 Miscellaneous Notes* Telephone Encounter - Brandi Riki Edgar LPN - 07/04/2022 11:07 AM EDT Patient has been identified by name and [...] Please advise. Thank you. Brandi Edgar LPN * Telephone Encounter - Soraida Her - 07/03/2022 10:58 AM EDT Patient has been identified by name and [...] pharmacy. No need to notify patient. Soraida Her documented in this encounterAcmc Healthcare System Glenbeigh09-26-2022 History of Present illness Narrative* Liza Canas RN - 07/03/2022 10:40 AM EDT IRB#: [id number], [facility]# [id number]: A Randomized, Phase III Study of Firstline Immunotherapy alone or in Combination with Chemotherapy in Induction/Maintenance or Postprogression in Advanced Nonsquamous Non-Small Cell Lung Cancer (NSCLC) with Immunobiomarker SIGNature-driven Analysis IC signed 09/13/2020 Randomized 09/22/2020 to treatment arm A: 1st line MK-3475 (pembrolizumab) followed by 2nd line Pemetrexed/Carboplatin. Study ID: [id number] Pt examined by Carrie Preciado APRN/JAYLON on 07/03/2022 in anticipation of Cycle 31 for trial purposes (30 due to one missed here) with patient of IRB# [id number] visit assessment. Patient remains on first line [...] DOSE) 81 mg, ORAL, DAILY Hx of OR 10/2019 clopidogrel (PLAVIX) 75 mg, ORAL, DAILY Hx of OR 10/2019 diclofenac sodium (VOLTAREN) 4 g, TOPICAL, [...] PRINIVIL) 5 mg, ORAL, DAILY Hx of OR 10/2019 morphine SR (MS CONTIN) 30 mg, [...] mg, ORAL, DAILY Dyslipidemia 02/27/2020 simethicone, chewable (OR-ACID GAS RELIEF(SIMETHICON)) 80 mg, ORAL, EVERY 6 HOURS NEEDED Irritable bowel 10/16/2012 traZODone (DESYREL) 50 mg, ORAL, AT BEDTIME NEEDED Depression 07/26/2010 10/06/2021 verapamil ER (VERELAN) 120 mg 24 hr capsule Verapamil Verapamil Hcl Active 0 MG DAILY October 10, 2019 7:53am 10-10-2019 [facility] ([id number]) Hx OR 10/2019 Motrin 800mg, 1 tab every 8 hours as prn Headaches 08/28/2016 Stopped 12/20/2020 but continue to take PRN Headaches 01/21/2008 Flexeril 10mg, 1 tab twice daily prn Muscles spasms 08/15/2005 Sennosides 17.2 mg ORAL 2 TIMES DAILY Constipation 10/18/2020 Percocet 5/325mg, [id number] prn Pain 11/05/2020 calcium-cholecalciferol, D3, (OSCAL+D ) [...] None. Action Required: None as value is non- fasting. Outcome: Ongoing. Alkaline Phosphatase Increase Grade 1: [...] same since last exam a year ago. Recommendedre-check in 1 year. NO changes Drugs to [...] confirmed by Dr. Duncan and Carrie Preciado. Keldron orders signed. Patient has contact information for Dr. Duncan/John's office as well as [facility] Department for any questions/concerns. PATRICIO Jacobson, RN, Clinical Research Nurse [phone] documented in this encounterAcmc Healthcare System Glenbeigh09-02-2022 History of Present illness Narrative* Liza Canas RN - 06/09/2022 12:25 PM EDT IRB#: [id number], [facility]# [id number]: A Randomized, Phase III Study of Firstline Immunotherapy alone or in Combination with Chemotherapy in Induction/Maintenance or Postprogression in Advanced Nonsquamous Non-Small Cell Lung Cancer (NSCLC) with Immunobiomarker SIGNature-driven Analysis IC signed 09/13/2020 Randomized 09/22/2021 to treatment arm A: 1st line MK-3475 (pembrolizumab) followed by 2nd line Pemetrexed/Carboplatin. Study ID: [id number] Pt examined by on 06/09/2022 in anticipation of Cycle 30 for trial purposes (29 due to one missed here) (scheduled 06/13/2022) with patient of IRB# [id number] visit assessment. Patient remains on first line [...] DOSE) 81 mg, ORAL, DAILY Hx of OR 10/2019 clopidogrel (PLAVIX) 75 mg, ORAL, DAILY Hx of OR 10/2019 diclofenac sodium (VOLTAREN) 4 g, TOPICAL, [...] PRINIVIL) 5 mg, ORAL, DAILY Hx of OR 10/2019 morphine SR (MS CONTIN) 30 mg, [...] mg, ORAL, DAILY Dyslipidemia 02/27/2020 simethicone, chewable (OR-ACID GAS RELIEF(SIMETHICON)) 80 mg, ORAL, EVERY 6 HOURS NEEDED Irritable bowel 10/16/2012 traZODone (DESYREL) 50 mg, ORAL, AT BEDTIME NEEDED Depression 07/26/2010 10/06/2021 verapamil ER (VERELAN) 120 mg 24 hr capsule Verapamil Verapamil Hcl Active 0 MG DAILY October 10, 2019 7:53am 10-10-2019 [facility] ([id number]) Hx OR 10/2019 Motrin 800mg, 1 tab every 8 hours as prn Headaches 08/28/2016 Stopped 12/20/2020 but continue to take PRN Headaches 01/21/2008 Flexeril 10mg, 1 tab twice daily prn Muscles spasms 08/15/2005 Sennosides 17.2 mg ORAL 2 TIMES DAILY Constipation 10/18/2020 Percocet 5/325mg, [id number] prn Pain 11/05/2020 calcium-cholecalciferol, D3, (OSCAL+D ) [...] None. Action Required: None as value is non- fasting. Outcome: Ongoing. Alkaline Phosphatase Increase Grade 1: Start date: 03/28/2022 Drugs to Treat: None. Action Required: None. Action required: None Outcome: Ongoing. Toxicities and Laboratory Results Not Gradable per CTCAE 5: Vision decreased: PRIOR TO STUDY. Unrelated to pembrolizumab. Patient states that she had a follow up appointment with her eye doctor and vision about the same since last exam a year ago. Recommendedre-check in 1 year. NO changes Drugs to [...] criteria for treatment, confirmed by Dr. Duncan. Keldron orders signed. Patient has contact information for Dr. Duncan/John's office as well as [facility] Department for any questions/concerns. PATRICIO Jacobson, RN, Clinical Research Nurse [phone] documented in this encounterAcmc Healthcare [facility]08-18-2022 NoteHNO ID: [id number] Author: Liza Canas RN Service: ? Author Type: Registered Nurse Type: Progress Notes Filed: 07/03/2022 10:32 AM Note Text: RECIST TUMOR MEASUREMENTS IRB #: [id number] / [id number] Image Modality: CT Image Date: 05/05/2022 and [...] May 25, 2022 (Updated for edited RECIST 06/01/2022)[facility]08-18-2022 History of Present illness Narrative* Liza Canas RN - 05/25/2022 11:17 AM EDT RECIST TUMOR MEASUREMENTS IRB #: [id number] / [id number] Image Modality: CT Image Date: 05/05/2022 and 0505/24/2022 Date of Baseline Scan: 09/16/2020 Date of [...] have been reviewed and approved by Dr. Espinal John Liza Canas RN May 25, 2022 (Updated for edited RECIST 06/01/2022) documented in this encounterAcmc Healthcare [facility]08-17-2022 History of Present illness Narrative* Areli Morales, RT(R) - 05/24/2022 10:20 AM EDT Radiology Service Progress Note DATE OF SERVICE: [...] creatinine assay has traceable calibration to isotope dilution- mass spectrometry. Refer to KDIGO guidelines for clinical interpretation. In patients with unstable renal function, e.g. those with acute kidney injury, the eGFRmay not accurately reflect actual GFR. eGFR- Date Value Ref Range Status 11/22/2021 >60 Final P.O.C.T. RESULTS: POC done: Yes, See Lab Tab May 24, 2022 TREATMENT: N/A PERIPHERAL IV DATA: Ambulatory: A peripheral IV was started in the Left hand with a Angio cath: 22 gauge. RADIOLOGY DEPARTMENT: CT; Exam(s) Completed: Abdomen SIGNATURE: RT Pete(Kyree) PATIENT NAME: Lata Smith DATE: May 24, 2022 TIME: 12:37 PM documented in this encounterAcmc Healthcare [facility]08-16-2022 History of Present illness Narrative* Liza Canas RN - 05/23/2022 11:03 AM EDT IRB#: [id number], [facility]# [id number]: A Randomized, Phase III Study of Firstline Immunotherapy alone or in Combination with Chemotherapy in Induction/Maintenance or Postprogression in Advanced Nonsquamous Non-Small Cell Lung Cancer (NSCLC) with Immunobiomarker SIGNature-driven Analysis IC signed 09/13/2020 Randomized 09/22/2021 to treatment arm A: 1st line MK-3475 (pembrolizumab) followed by 2nd line Pemetrexed/Carboplatin. Study ID: [id number] Huddleston on 05/08/2022 in anticipation of Cycle 29 (scheduled today 05/23/2022) This cycle was delayed due to potential COVID with patient of IRB# [id number] visit assessment. Patientremains on first line therapy. Patient feeling much better and denies any fevers since day three ofisolation. Patient came for CT on Saturday 05/05 [...] DOSE) 81 mg, ORAL, DAILY Hx of OR 10/2019 clopidogrel (PLAVIX) 75 mg, ORAL, DAILY Hx of OR 10/2019 diclofenac sodium (VOLTAREN) 4 g, TOPICAL, [...] PRINIVIL) 5 mg, ORAL, DAILY Hx of OR 10/2019 morphine SR (MS CONTIN) 30 mg, [...] mg, ORAL, DAILY Dyslipidemia 02/27/2020 simethicone, chewable (OR-ACID GAS RELIEF(SIMETHICON)) 80 mg, ORAL, EVERY 6 HOURS NEEDED Irritable bowel 10/16/2012 traZODone (DESYREL) 50 mg, ORAL, AT BEDTIME NEEDED Depression 07/26/2010 10/06/2021 verapamil ER (VERELAN) 120 mg 24 hr capsule Verapamil Verapamil Hcl Active 0 MG DAILY October 10, 2019 7:53am 10-10-2019 [facility] ([id number]) Hx OR 10/2019 Motrin 800mg, 1 tab every 8 hours as prn Headaches 08/28/2016 Stopped 12/20/2020 but continue to take PRN Headaches 01/21/2008 Flexeril 10mg, 1 tab twice daily prn Muscles spasms 08/15/2005 Sennosides 17.2 mg ORAL 2 TIMES DAILY Constipation 10/18/2020 Percocet 5/325mg, [id number] prn Pain 11/05/2020 calcium-cholecalciferol, D3, (OSCAL+D ) [...] None. Action Required: None as value is non- fasting. Outcome: Ongoing. Hypocalcemia Grade 1: Start Date:04/17/2022 Resolved: 05/08/2022 Started again: 05/23/2022 Drugs toTreat: None. Action Required: None. Action required: None [...] same since last exam a year ago. Recommendedre-check in 1 year. NO changes Drugs to [...] criteria for treatment, confirmed by Dr. Huddleston. Keldron orders signed. Patient has contact information for Dr. Huddleston's office as well as [facility] Department for any questions/concerns. PATRICIO Jacobson, RN, Clinical Research Nurse [phone] documented in this encounterAcmc Healthcare System [facility]08-04-2022 Miscellaneous Notes* Telephone Encounter - Christina Amaro RN - 05/11/2022 2:59 PM EDT Call to patient and aware of Rx. Oneida Amaro RN * Telephone Encounter - Anca Huddleston MD - 05/11/2022 2:47 PM EDT Patient's request for medication is as follows Signed Prescriptions Disp Refills azithromycin (ZITHROMAX Z-TU) 250 mg tablet 7 tablet 0 Sig: Take 1 tablet by mouth once daily for 7 days. TAKE 2 TABS ON THE FIRST DAY, THEN ONE TAB DAILYFOR 4 DAYS. Authorizing Provider: ANCA HUDDLESTON Order entered - please phone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 ATTENDING PHYSICIAN: Anca Huddleston MD. DATE OF SERVICE: 02/14/2022 DIAGNOSIS: Stage IV, non-small cell (adenocarcinoma) lung cancer HPI: 61-year-old lady with history of hypertension cardiovascular disease recent OR in October 2019, status post coronary stents x3 on Plavix and aspirin who presented with worsening shortness of breath and hemoptysis for several months. Patient was seen in primary care clinic in May was treatedwith antibiotic without improvement. She was seen by Dr. Castillo and a CT chest revealed a lung mass and mediastinal adenopathy. She had no fever Chills, rigor, pleuritic chest pain, chest trauma. She has stable exertional dyspnea with activities of daily living, and exertional wheezing. She also complained of severe right hip pain along with pressure on her right side of her chest forcouple months. Her staging PET scan on 08/03/2020 unfortunately showed metastatic disease. She had bronchoscopy and EBUS biopsy of the mediastinal lymph node on 08/19/2020. Biopsy was consistent withnon-small cell, favoring adenocarcinoma the lung. She is [...] Sclerae white, conjunctivae pink. PEERL. EOMs are intact.Oropharynx is benign. LYMPHATICS: There is no palpable [...] Abs Lymph 1.00 - 4.00 k/uL 1.10 Grimes% % 6.4 Abs Grimes <0.87 k/uL 0.43 Eosin% % 2.4 Abs [...] sequence: (NM_004448.2)]. KRAS A sequence change: c.34_35delinsTT (p.Ppi11Une) was detected at approximately 30% allelic proportion [...] Cc: Fiona Durant MD documented in this encounterAcmc Healthcare [facility]05-06-2022 History of Present illness Narrative* Татьяна Young [facility] - 02/10/2022 12:13 PM EDT RESEARCH IRB #: [id number] TUMOR METRICS: RECIST 1.1 Follow-Up Measurement-Same Day Research Nurse/Pager: Hoang [phone] Date of Baseline Scan: 09/16/2020 Date of Comparison Scan: 02/10/[address] needs to be addended Addendum Please see Abstract in EPIC Dated: 08/29/2021 documented in this encounterAcmc Healthcare System [facility]05-06-2022 History of Present illness Narrative* Areli Morales, RT(R) - 02/10/2022 10:40 AM EDT Radiology Service Progress Note DATE OF SERVICE: [...] creatinine assay has traceable calibration to isotope dilution- mass spectrometry. Refer to KDIGO guidelines for clinical interpretation. In patients with unstable renal function, e.g. those with acute kidney injury, the eGFRmay not accurately reflect actual GFR. eGFR- Date [...] 2022 TIME: 11:23 AM documented in this encounterAcmc Healthcare System Glen[facility]igh04-20-2022 Miscellaneous Notes* Telephone Encounter - Pia Bryant - 01/25/2022 9:22 AM EDT Scheduled. Pia Bryant documented in this encounterAcmc Healthcare System Glen[facility]igh04-19-2022 Miscellaneous Notes* Telephone Encounter - Pia Bryant - 01/24/2022 12:51 PM EDT Scheduled. Pia Bryant documented in this encounterAcmc Healthcare [facility]igh04-19-2022 History of Present illness Narrative* Liza Canas RN - 01/24/2022 10:22 AM EDT IRB#: [id number], [facility]# [id number]: A Randomized, Phase III Study of Firstline Immunotherapy alone or in Combination with Chemotherapy in Induction/Maintenance or Postprogression in Advanced Nonsquamous Non-Small Cell Lung Cancer (NSCLC) with Immunobiomarker SIGNature-driven Analysis IC signed 09/13/2020 Randomized 09/22/2021 to treatment arm A: 1st line MK-3475 (pembrolizumab) followed by 2nd line Pemetrexed/Carboplatin. Study ID: [id number] Duncan on 01/24/2022 in anticipation of Cycle 24 (scheduled 01/25/2022) of IRB# [id number] visit assessment. Patient remains on first line therapy.Patient denies changes in health, but expressed a huge improvement overall with cough. Patient feels fatigue is getting better, butstill there. Her generalized pain is better, but not great per patient. Patient states she is,honestly, feeling pretty good. Patient started Chantix again and said she's down to about half a pack aday of cigarettes. PE completed by Dr. Dakota [...] DOSE) 81 mg, ORAL, DAILY Hx of OR 10/2019 clopidogrel (PLAVIX) 75 mg, ORAL, DAILY Hx of OR 10/2019 diclofenac sodium (VOLTAREN) 4 g, TOPICAL, [...] PRINIVIL) 5 mg, ORAL, DAILY Hx of OR 10/2019 morphine SR (MS CONTIN) 30 mg, [...] mg, ORAL, DAILY Dyslipidemia 02/27/2020 simethicone, chewable (OR-ACID GAS RELIEF(SIMETHICON)) 80 mg, ORAL, EVERY 6 HOURS NEEDED Irritable bowel 10/16/2012 traZODone (DESYREL) 50 mg, ORAL, AT BEDTIME NEEDED Depression 07/26/2010 10/06/2021 verapamil ER (VERELAN) 120 mg 24 hr capsule Verapamil Verapamil Hcl Active 0 MG DAILY October 10, 2019 7:53am 10-10-2019 [facility] ([id number]) Hx OR 10/2019 Headaches 08/28/2016 12/20/2020 Headaches 01/21/2008 Flexeril 10mg, 1 tab twice daily prn Muscles spasms 08/15/2005 Sennosides 17.2 mg ORAL 2 TIMES DAILY Constipation 10/18/2020 Percocet 5/325mg, [id number] prn Pain 11/05/2020 calcium-cholecalciferol, D3, (OSCAL+D ) [...] None. Action Required: None as value is non- fasting. Outcome: Ongoing. Toxicities and Laboratory Results Not [...] criteria for treatment, confirmed by Dr. Duncan. Keldron orders signed. Patient has contact information for Dr. Flores office as well as [facility] Department for any questions/concerns. PATRICIO Jacobson, RN [phone] documented in this encounterAcmc Healthcare System Glen[facility]igh03-29-2022 History of Present illness Narrative* Anca Huddleston MD - 01/03/2022 4:58 PM EDT PATIENT NAME: Lata Smith. CLINIC NO: [id number]. ATTENDING PHYSICIAN: Anca Huddleston MD. DATE OF SERVICE: 01/03/2022 DIAGNOSIS: Stage IV, non-small cell (adenocarcinoma) lung cancer HPI: 61-year-old lady with history of hypertension cardiovascular disease recent OR in October 2019, status post coronary stents x3 on Plavix and aspirin who presented with worsening shortness of breath and hemoptysis for several months. Patient was seen in primary care clinic in May was treatedwith antibiotic without improvement. She was seen by Dr. Castillo and a CT chest revealed a lung mass and mediastinal adenopathy. She had no fever Chills, rigor, pleuritic chest pain, chest trauma. She has stable exertional dyspnea with activities of daily living, and exertional wheezing. She also complained of severe right hip pain along with pressure on her right side of her chest forcouple months. Her staging PET scan on 08/03/2020 unfortunately showed metastatic disease. She had bronchoscopy and EBUS biopsy of the mediastinal lymph node on 08/19/2020. Biopsy was consistent withnon-small cell, favoring adenocarcinoma the lung. She is [...] Sclerae white, conjunctivae pink. PEERL. EOMs are intact.Oropharynx is benign. LYMPHATICS: There is no palpable [...] Abs Lymph 1.00 - 4.00 k/uL 1.69 Grimes% % 7.8 Abs Grimes <0.87 k/uL 0.53 Eosin% % 2.7 Abs [...] sequence: (NM_004448.2)]. KRAS A sequence change: c.34_35delinsTT (p.Gub11Ohr) was detected at approximately 30% allelic proportion [...] Cc: Fiona Durant MD documented in this encounterAcmc Healthcare [facility]igh03-29-2022 History of Present illness Narrative* Liza Canas RN - 01/03/2022 11:52 AM EDT IRB#: [id number], [facility]# [id number]: A Randomized, Phase III Study of Firstline Immunotherapy alone or in Combination with Chemotherapy in Induction/Maintenance or Postprogression in Advanced Nonsquamous Non-Small Cell Lung Cancer (NSCLC) with Immunobiomarker SIGNature-driven Analysis IC signed 09/13/2020 Randomized 09/22/2021 to treatment arm A: 1st line MK-3475 (pembrolizumab) followed by 2nd line Pemetrexed/Carboplatin. Study ID: [id number] Huddleston on 01/03/2022 in anticipation of Cycle 23 (scheduled 01/04/2022) of IRB# [id number] visit assessment. Patient remains on first line [...] DOSE) 81 mg, ORAL, DAILY Hx of OR 10/2019 clopidogrel (PLAVIX) 75 mg, ORAL, DAILY Hx of OR 10/2019 diclofenac sodium (VOLTAREN) 4 g, TOPICAL, [...] PRINIVIL) 5 mg, ORAL, DAILY Hx of OR 10/2019 morphine SR (MS CONTIN) 30 mg, [...] mg, ORAL, DAILY Dyslipidemia 02/27/2020 simethicone, chewable (OR-ACID GAS RELIEF(SIMETHICON)) 80 mg, ORAL, EVERY 6 HOURS NEEDED Irritable bowel 10/16/2012 traZODone (DESYREL) 50 mg, ORAL, AT BEDTIME NEEDED Depression 07/26/2010 10/06/2021 verapamil ER (VERELAN) 120 mg 24 hr capsule Verapamil Verapamil Hcl Active 0 MG DAILY October 10, 2019 7:53am 10-10-2019 [facility] ([id number]) Hx OR 10/2019 Headaches 08/28/2016 12/20/2020 Headaches 01/21/2008 Flexeril 10mg, 1 tab twice daily prn Muscles spasms 08/15/2005 Sennosides 17.2 mg ORAL 2 TIMES DAILY Constipation 10/18/2020 Percocet 5/325mg, [id number] prn Pain 11/05/2020 calcium-cholecalciferol, D3, (OSCAL+D ) [...] 10/31/2021. Stop Date 11/22/2021. Unrelated to Pembrolizumab. Drugsto Treat: K-Dur. Action Required: None. Outcome: Ongoing. [...] Date: 09/19/2021; Stop Date: 01/03/2022 Unrelated to Pembrolizumab:Action required: None. Outcome: Ongoing. Alkaline Phosphatase Increased Grade 1: Start Date: 12/13/2021. Stop Date:01/03/2022 Possibly relatedto Pembrolizumab. Drugs to Treat: None. Action Required: [...] criteria for treatment, confirmed by Dr. Huddleston. Keldron orders signed. Patient has contact information for Dr. Huddleston's office as well [facility] for anyquestions/concerns. PATRICIO Jacobson, RN [phone] documented in this encounterAcmc Healthcare System [facility]igh03-21-2022 Instructions* Patient Instructions* Fiona Durant MD - 12/26/2021 3:39 PM EDT Chantix starting dose: Days 1 to 3: Oral: 0.5 mg once daily. Days 4 to 7: Oral: 0.5 mg twice daily. Maintenance (? Day 8): Oral: 1 mg twice daily documented in this encounterAcmc Healthcare System [facility]igh03-21-2022 History of Present illness Narrative* Fiona Durant MD - 12/26/2021 3:18 PM EDT This note was created using NoteWriter. Subjective Lata Smith is a 61 year [...] Trying to get more active. Walks at [employer] now. Working on quitting smoking. Wants generic [...] 2 Puffs as instructed every 4 hours asneeded. omeprazole (PRILOSEC) 20 mg capsule Take 1 [...] 1 tablet by mouth once daily as needed(fluid retention/leg swelling). oxyCODONE-acetaminophen (PERCOCET) 5-325 mg tablet [...] in one nostril as needed for overdose. Mayrepeat every 2 to 3 min in alternating [...] MG DAILY October 10, 2019 7:53am 10-10-2019 [facility] ([id number]) albuterol (PROVENTIL) 2.5 mg /3 mL (0.083 %) nebulizer solution Use 3 mL via nebulizer every 6 hours as needed for Wheezing/Shortness of Breath. 1 vial contains 3 ml. fluticasone (FLONASE) 50 mcg/actuation nasal spray Use 2 Sprays in each nostril once daily. Rinse mouth after use. simethicone, chewable (OR-ACID GAS RELIEF) 80 mg chewable tablet Take [...] indicated. Fiona Durant MD documented in this encounterAcmc Healthcare System Glenbeigh09-20-2021 NoteHNO ID: [id number] Author: Milla Hernandez RN Service: ? Author Type: Registered Nurse Type: Progress Notes Filed: 06/28/2021 8:37 AM Note Text: IRB#: [id number], [facility]# [id number]: A Randomized, Phase III Study of Firstline Immunotherapy alone or in Combination with Chemotherapy in Induction/Maintenance or Postprogression in Advanced Nonsquamous Non-Small Cell Lung Cancer (NSCLC) with Immunobiomarker SIGNature-driven Analysis IC signed 09/13/2020 Randomized 09/22/2021 to treatment arm A: 1st line MK-3475 (pembrolizumab) followed by 2nd line Pemetrexed/Carboplatin. Study ID: [id number] Huddleston in anticipation of Cycle 14 (scheduled tomorrow 06/28/21) of IRB# [id number] visit assessment. PE completed by Dr. John [...] DOSE) 81 mg, ORAL, DAILY Hx of OR 10/2019 - clopidogrel (PLAVIX) 75 mg, ORAL, DAILY Hx of OR 10/2019 - diclofenac sodium (VOLTAREN) 4 g, [...] PRINIVIL) 5 mg, ORAL, DAILY Hx of OR 10/2019 - morphine SR (MS CONTIN) 30 [...] ORAL, DAILY Dyslipidemia 02/27/2020 - simethicone, chewable (OR-ACID GAS RELIEF(SIMETHICON)) 80 mg, ORAL, EVERY 6 HOURS NEEDED Irritable bowel 10/16/2012 - traZODone (DESYREL) 50 mg, ORAL, AT BEDTIME NEEDED Depression 07/26/2010 - verapamil ER (VERELAN) 120 mg 24 hr capsule Verapamil Verapamil Hcl Active 0 MG DAILY October 10, 2019 7:53am 10-10-2019 [facility] ([id number]) Hx OR 10/2019 - Headaches 08/28/2016 12/20/2020 - Naprosyn 500mg tab, take 1 tab twice dialywith food prn Headaches 01/21/2008 - Flexeril 10mg, 1 tab twice daily prn Muscles spasms 08/15/2005 - Sennosides 17.2 mg ORAL 2 TIMES DAILY Constipation 10/18/2020 - Percocet 5/325mg, [id number] prn Pain 11/05/2020 - calcium-cholecalciferol, D3, (OSCAL+D [...] Grade 1: Start date: (more content not included)...[facility]2008 History of Past illness Narrative* Problem Noted Date Resolved Date HEPATITIS B infection in the past 02/07/2008 04/09/2021 Overview: No evidence of chronic infection or cirrhosis Viral hepatitis B without me ntion of hepatic coma, acute or unspecified, without mention of hepatitis delta 2020 Overview: Chronic hepatitis B Depressive disorder in remission 04/09/2021 documented as of this encounter (statuses as of 01/04/2022) [facility] of Past illness Narrative* Problem Noted Date Resolved Date HEPATITIS B infection in the past 02/07/2008 04/09/2021 Overview: No evidence of chronic infection or cirrhosis Viral hepatitis B without me ntion of hepatic coma, acute or unspecified, without mention of hepatitis delta 2020 Overview: Chronic hepatitis B Depressive disorder in remission 04/09/2021 documented as of this encounter (statuses as of 01/04/2022) [facility] of Past illness Narrative* Problem Noted Date Resolved Date HEPATITIS B infection in the past 02/07/2008 04/09/2021 Overview: No evidence of chronic infection or cirrhosis Viral hepatitis B without me ntion of hepatic coma, acute or unspecified, without mention of hepatitis delta 2020 Overview: Chronic hepatitis B Depressive disorder in remission 04/09/2021 documented as of this encounter (statuses as of 01/04/2022) [facility] of Past illness Narrative* Problem Noted Date Resolved Date HEPATITIS B infection in the past 02/07/2008 04/09/2021 Overview: No evidence of chronic infection or cirrhosis Viral hepatitis B without me ntion of hepatic coma, acute or unspecified, without mention of hepatitis delta 2020 Overview: Chronic hepatitis B Depressive disorder in remission 04/09/2021 documented as of this encounter (statuses as of 01/23/2022) [facility] of Past illness Narrative* Problem Noted Date Resolved Date HEPATITIS B infection in the past 02/07/2008 04/09/2021 Overview: No evidence of chronic infection or cirrhosis Viral hepatitis B without me ntion of hepatic coma, acute or unspecified, without mention of hepatitis delta 2020 Overview: Chronic hepatitis B Depressive disorder in remission 04/09/2021 documented as of this encounter (statuses as of 01/24/2022) [facility] of Past illness Narrative* Problem Noted Date Resolved Date HEPATITIS B infection in the past 02/07/2008 04/09/2021 Overview: No evidence of chronic infection or cirrhosis Viral hepatitis B without me ntion of hepatic coma, acute or unspecified, without mention of hepatitis delta 2020 Overview: Chronic hepatitis B Depressive disorder in remission 04/09/2021 documented as of this encounter (statuses as of 01/25/2022) [facility] of Past illness Narrative* Problem Noted Date Resolved Date HEPATITIS B infection in the past 02/07/2008 04/09/2021 Overview: No evidence of chronic infection or cirrhosis Viral hepatitis B without me ntion of hepatic coma, acute or unspecified, without mention of hepatitis delta 2020 Overview: Chronic hepatitis B Depressive disorder in remission 04/09/2021 documented as of this encounter (statuses as of 01/25/2022) [facility] of Past illness Narrative* Problem Noted Date Resolved Date HEPATITIS B infection in the past 02/07/2008 04/09/2021 Overview: No evidence of chronic infection or cirrhosis Viral hepatitis B without me ntion of hepatic coma, acute or unspecified, without mention of hepatitis delta 2020 Overview: Chronic hepatitis B Depressive disorder in remission 04/09/2021 documented as of this encounter (statuses as of 01/25/2022) [facility] of Past illness Narrative* Problem Noted Date Resolved Date HEPATITIS B infection in the past 02/07/2008 04/09/2021 Overview: No evidence of chronic infection or cirrhosis Viral hepatitis B without me ntion of hepatic coma, acute or unspecified, without mention of hepatitis delta 2020 Overview: Chronic hepatitis B Depressive disorder in remission 04/09/2021 documented as of this encounter (statuses as of 02/10/2022) [facility] History of Past illness Narrative* Problem Noted Date Resolved Date HEPATITIS B infection in the past 02/07/2008 04/09/2021 Overview: No evidence of chronic infection or cirrhosis Viral hepatitis B without me ntion of hepatic coma, acute or unspecified, without mention of hepatitis delta 2020 Overview: Chronic hepatitis B Depressive disorder in remission 04/09/2021 documented as of this encounter (statuses as of 02/11/2022) [facility]2008 History of Past illness Narrative* Problem Noted Date Resolved Date HEPATITIS B infection in the past 02/07/2008 04/09/2021 Overview: No evidence of chronic infection or cirrhosis Viral hepatitis B without me ntion of hepatic coma, acute or unspecified, without mention of hepatitis delta 2020 Overview: Chronic hepatitis B Depressive disorder in remission 04/09/2021 documented as of this encounter (statuses as of 02/11/2022) [facility]2008 History of Past illness Narrative* Problem Noted Date Resolved Date HEPATITIS B infection in the past 02/07/2008 04/09/2021 Overview: No evidence of chronic infection or cirrhosis Viral hepatitis B without me ntion of hepatic coma, acute or unspecified, without mention of hepatitis delta 2020 Overview: Chronic hepatitis B Depressive disorder in remission 04/09/2021 documented as of this encounter (statuses as of 02/14/2022) [facility] History of Past illness Narrative* Problem Noted Date Resolved Date HEPATITIS B infection in the past 02/07/2008 04/09/2021 Overview: No evidence of chronic infection or cirrhosis Viral hepatitis B without me ntion of hepatic coma, acute or unspecified, without mention of hepatitis delta 2020 Overview: Chronic hepatitis B Depressive disorder in remission 04/09/2021 documented as of this encounter (statuses as of 02/15/2022) [facility] History of Past illness Narrative* Problem Noted Date Resolved Date HEPATITIS B infection in the past 02/07/2008 04/09/2021 Overview: No evidence of chronic infection or cirrhosis Viral hepatitis B without me ntion of hepatic coma, acute or unspecified, without mention of hepatitis delta 2020 Overview: Chronic hepatitis B Depressive disorder in remission 04/09/2021 documented as of this encounter (statuses as of 02/15/2022) [facility] History of Past illness Narrative* Problem Noted Date Resolved Date HEPATITIS B infection in the past 02/07/2008 04/09/2021 Overview: No evidence of chronic infection or cirrhosis Viral hepatitis B without me ntion of hepatic coma, acute or unspecified, without mention of hepatitis delta 2020 Overview: Chronic hepatitis B Depressive disorder in remission 04/09/2021 documented as of this encounter (statuses as of 02/16/2022) [facility] History of Past illness Narrative* Problem Noted Date Resolved Date HEPATITIS B infection in the past 02/07/2008 04/09/2021 Overview: No evidence of chronic infection or cirrhosis Viral hepatitis B without me ntion of hepatic coma, acute or unspecified, without mention of hepatitis delta 2020 Overview: Chronic hepatitis B Depressive disorder in remission 04/09/2021 documented as of this encounter (statuses as of 02/20/2022) [facility] History of Past illness Narrative* Problem Noted Date Resolved Date HEPATITIS B infection in the past 02/07/2008 04/09/2021 Overview: No evidence of chronic infection or cirrhosis Viral hepatitis B without me ntion of hepatic coma, acute or unspecified, without mention of hepatitis delta 2020 Overview: Chronic hepatitis B Depressive disorder in remission 04/09/2021 documented as of this encounter (statuses as of 02/22/2022) [facility] History of Past illness Narrative* Problem Noted Date Resolved Date HEPATITIS B infection in the past 02/07/2008 04/09/2021 Overview: No evidence of chronic infection or cirrhosis Viral hepatitis B without me ntion of hepatic coma, acute or unspecified, without mention of hepatitis delta 2020 Overview: Chronic hepatitis B Depressive disorder in remission 04/09/2021 documented as of this encounter (statuses as of 03/06/2022) [facility] History of Past illness Narrative* Problem Noted Date Resolved Date HEPATITIS B infection in the past 02/07/2008 04/09/2021 Overview: No evidence of chronic infection or cirrhosis Viral hepatitis B without me ntion of hepatic coma, acute or unspecified, without mention of hepatitis delta 2020 Overview: Chronic hepatitis B Depressive disorder in remission 04/09/2021 documented as of this encounter (statuses as of 03/07/2022) [facility] History of Past illness Narrative* Problem Noted Date Resolved Date HEPATITIS B infection in the past 02/07/2008 04/09/2021 Overview: No evidence of chronic infection or cirrhosis Viral hepatitis B without me ntion of hepatic coma, acute or unspecified, without mention of hepatitis delta 2020 Overview: Chronic hepatitis B Depressive disorder in remission 04/09/2021 documented as of this encounter (statuses as of 03/19/2022) [facility] History of Past illness Narrative* Problem Noted Date Resolved Date HEPATITIS B infection in the past 02/07/2008 04/09/2021 Overview: No evidence of chronic infection or cirrhosis Viral hepatitis B without me ntion of hepatic coma, acute or unspecified, without mention of hepatitis delta 2020 Overview: Chronic hepatitis B Depressive disorder in remission 04/09/2021 documented as of this encounter (statuses as of 03/28/2022) [facility] History of Past illness Narrative* Problem Noted Date Resolved Date HEPATITIS B infection in the past 02/07/2008 04/09/2021 Overview: No evidence of chronic infection or cirrhosis Viral hepatitis B without me ntion of hepatic coma, acute or unspecified, without mention of hepatitis delta 2020 Overview: Chronic hepatitis B Depressive disorder in remission 04/09/2021 documented as of this encounter (statuses as of 03/29/2022) [facility] History of Past illness Narrative* Problem Noted Date Resolved Date HEPATITIS B infection in the past 02/07/2008 04/09/2021 Overview: No evidence of chronic infection or cirrhosis Viral hepatitis B without me ntion of hepatic coma, acute or unspecified, without mention of hepatitis delta 2020 Overview: Chronic hepatitis B Depressive disorder in remission 04/09/2021 documented as of this encounter (statuses as of 04/18/2022) [facility] History of Past illness Narrative* Problem Noted Date Resolved Date HEPATITIS B infection in the past 02/07/2008 04/09/2021 Overview: No evidence of chronic infection or cirrhosis Viral hepatitis B without me ntion of hepatic coma, acute or unspecified, without mention of hepatitis delta 2020 Overview: Chronic hepatitis B Depressive disorder in remission 04/09/2021 documented as of this encounter (statuses as of 04/18/2022) [facility] History of Past illness Narrative* Problem Noted Date Resolved Date HEPATITIS B infection in the past 02/07/2008 04/09/2021 Overview: No evidence of chronic infection or cirrhosis Viral hepatitis B without me ntion of hepatic coma, acute or unspecified, without mention of hepatitis delta 2020 Overview: Chronic hepatitis B Depressive disorder in remission 04/09/2021 documented as of this encounter (statuses as of 05/06/2022) [facility] History of Past illness Narrative* Problem Noted Date Resolved Date HEPATITIS B infection in the past 02/07/2008 04/09/2021 Overview: No evidence of chronic infection or cirrhosis Viral hepatitis B without me ntion of hepatic coma, acute or unspecified, without mention of hepatitis delta 2020 Overview: Chronic hepatitis B Depressive disorder in remission 04/09/2021 documented as of this encounter (statuses as of 05/09/2022) [facility] History of Past illness Narrative* Problem Noted Date Resolved Date HEPATITIS B infection in the past 02/07/2008 04/09/2021 Overview: No evidence of chronic infection or cirrhosis Viral hepatitis B without me ntion of hepatic coma, acute or unspecified, without mention of hepatitis delta 2020 Overview: Chronic hepatitis B Depressive disorder in remission 04/09/2021 documented as of this encounter (statuses as of 05/09/2022) [facility] History of Past illness Narrative* Problem Noted Date Resolved Date HEPATITIS B infection in the past 02/07/2008 04/09/2021 Overview: No evidence of chronic infection or cirrhosis Viral hepatitis B without me ntion of hepatic coma, acute or unspecified, without mention of hepatitis delta 2020 Overview: Chronic hepatitis B Depressive disorder in remission 04/09/2021 documented as of this encounter (statuses as of 05/11/2022) [facility] History of Past illness Narrative* Problem Noted Date Resolved Date HEPATITIS B infection in the past 02/07/2008 04/09/2021 Overview: No evidence of chronic infection or cirrhosis Viral hepatitis B without me ntion of hepatic coma, acute or unspecified, without mention of hepatitis delta 2020 Overview: Chronic hepatitis B Depressive disorder in remission 04/09/2021 documented as of this encounter (statuses as of 05/23/2022) [facility] History of Past illness Narrative* Problem Noted Date Resolved Date HEPATITIS B infection in the past 02/07/2008 04/09/2021 Overview: No evidence of chronic infection or cirrhosis Viral hepatitis B without me ntion of hepatic coma, acute or unspecified, without mention of hepatitis delta 2020 Overview: Chronic hepatitis B Depressive disorder in remission 04/09/2021 documented as of this encounter (statuses as of 05/25/2022) [facility] History of Past illness Narrative* Problem Noted Date Resolved Date HEPATITIS B infection in the past 02/07/2008 04/09/2021 Overview: No evidence of chronic infection or cirrhosis Viral hepatitis B without me ntion of hepatic coma, acute or unspecified, without mention of hepatitis delta 2020 Overview: Chronic hepatitis B Depressive disorder in remission 04/09/2021 documented as of this encounter (statuses as of 05/25/2022) [facility] History of Past illness Narrative* Problem Noted Date Resolved Date HEPATITIS B infection in the past 02/07/2008 04/09/2021 Overview: No evidence of chronic infection or cirrhosis Viral hepatitis B without me ntion of hepatic coma, acute or unspecified, without mention of hepatitis delta 2020 Overview: Chronic hepatitis B Depressive disorder in remission 04/09/2021 documented as of this encounter (statuses as of 05/25/2022) [facility] History of Past illness Narrative* Problem Noted Date Resolved Date HEPATITIS B infection in the past 02/07/2008 04/09/2021 Overview: No evidence of chronic infection or cirrhosis Viral hepatitis B without me ntion of hepatic coma, acute or unspecified, without mention of hepatitis delta 2020 Overview: Chronic hepatitis B Depressive disorder in remission 04/09/2021 documented as of this encounter (statuses as of 06/01/2022) [facility] History of Past illness Narrative* Problem Noted Date Resolved Date HEPATITIS B infection in the past 02/07/2008 04/09/2021 Overview: No evidence of chronic infection or cirrhosis Viral hepatitis B without me ntion of hepatic coma, acute or unspecified, without mention of hepatitis delta 2020 Overview: Chronic hepatitis B Depressive disorder in remission 04/09/2021 documented as of this encounter (statuses as of 06/09/2022) [facility] History of Past illness Narrative* Problem Noted Date Resolved Date HEPATITIS B infection in the past 02/07/2008 04/09/2021 Overview: No evidence of chronic infection or cirrhosis Viral hepatitis B without me ntion of hepatic coma, acute or unspecified, without mention of hepatitis delta 2020 Overview: Chronic hepatitis B Depressive disorder in remission 04/09/2021 documented as of this encounter (statuses as of 06/10/2022) [facility] History of Past illness Narrative* Problem Noted Date Resolved Date HEPATITIS B infection in the past 02/07/2008 04/09/2021 Overview: No evidence of chronic infection or cirrhosis Viral hepatitis B without me ntion of hepatic coma, acute or unspecified, without mention of hepatitis delta 2020 Overview: Chronic hepatitis B Depressive disorder in remission 04/09/2021 documented as of this encounter (statuses as of 06/13/2022) [facility] History of Past illness Narrative* Problem Noted Date Resolved Date HEPATITIS B infection in the past 02/07/2008 04/09/2021 Overview: No evidence of chronic infection or cirrhosis Viral hepatitis B without me ntion of hepatic coma, acute or unspecified, without mention of hepatitis delta 2020 Overview: Chronic hepatitis B Depressive disorder in remission 04/09/2021 documented as of this encounter (statuses as of 06/16/2022) [facility] History of Past illness Narrative* Problem Noted Date Resolved Date HEPATITIS B infection in the past 02/07/2008 04/09/2021 Overview: No evidence of chronic infection or cirrhosis Viral hepatitis B without me ntion of hepatic coma, acute or unspecified, without mention of hepatitis delta 2020 Overview: Chronic hepatitis B Depressive disorder in remission 04/09/2021 documented as of this encounter (statuses as of 06/30/2022) [facility] History of Past illness Narrative* Problem Noted Date Resolved Date HEPATITIS B infection in the past 02/07/2008 04/09/2021 Overview: No evidence of chronic infection or cirrhosis Viral hepatitis B without me ntion of hepatic coma, acute or unspecified, without mention of hepatitis delta 2020 Overview: Chronic hepatitis B Depressive disorder in remission 04/09/2021 documented as of this encounter (statuses as of 07/03/2022) [facility] History of Past illness Narrative* Problem Noted Date Resolved Date HEPATITIS B infection in the past 02/07/2008 04/09/2021 Overview: No evidence of chronic infection or cirrhosis Viral hepatitis B without me ntion of hepatic coma, acute or unspecified, without mention of hepatitis delta 2020 Overview: Chronic hepatitis B Depressive disorder in remission 04/09/2021 documented as of this encounter (statuses as of 07/04/2022) [facility] History of Past illness Narrative* Problem Noted Date Resolved Date HEPATITIS B infection in the past 02/07/2008 04/09/2021 Overview: No evidence of chronic infection or cirrhosis Viral hepatitis B without me ntion of hepatic coma, acute or unspecified, without mention of hepatitis delta 2020 Overview: Chronic hepatitis B Depressive disorder in remission 04/09/2021 documented as of this encounter (statuses as of 07/04/2022) [facility] History of Past illness Narrative* Problem Noted Date Resolved Date HEPATITIS B infection in the past 02/07/2008 04/09/2021 Overview: No evidence of chronic infection or cirrhosis Viral hepatitis B without me ntion of hepatic coma, acute or unspecified, without mention of hepatitis delta 2020 Overview: Chronic hepatitis B Depressive disorder in remission 04/09/2021 documented as of this encounter (statuses as of 07/24/2022) [facility] History of Past illness Narrative* Problem Noted Date Resolved Date HEPATITIS B infection in the past 02/07/2008 04/09/2021 Overview: No evidence of chronic infection or cirrhosis Viral hepatitis B without me ntion of hepatic coma, acute or unspecified, without mention of hepatitis delta 2020 Overview: Chronic hepatitis B Depressive disorder in remission 04/09/2021 documented as of this encounter (statuses as of 07/24/2022) [facility] History of Past illness Narrative* Problem Noted Date Resolved Date HEPATITIS B infection in the past 02/07/2008 04/09/2021 Overview: No evidence of chronic infection or cirrhosis Viral hepatitis B without me ntion of hepatic coma, acute or unspecified, without mention of hepatitis delta 2020 Overview: Chronic hepatitis B Depressive disorder in remission 04/09/2021 documented as of this encounter (statuses as of 07/25/2022) [facility] History of Past illness Narrative* Problem Noted Date Resolved Date HEPATITIS B infection in the past 02/07/2008 04/09/2021 Overview: No evidence of chronic infection or cirrhosis Viral hepatitis B without me ntion of hepatic coma, acute or unspecified, without mention of hepatitis delta 2020 Overview: Chronic hepatitis B Depressive disorder in remission 04/09/2021 documented as of this encounter (statuses as of 07/25/2022) [facility] History of Past illness Narrative* Problem Noted Date Resolved Date HEPATITIS B infection in the past 02/07/2008 04/09/2021 Overview: No evidence of chronic infection or cirrhosis Viral hepatitis B without me ntion of hepatic coma, acute or unspecified, without mention of hepatitis delta 2020 Overview: Chronic hepatitis B Depressive disorder in remission 04/09/2021 documented as of this encounter (statuses as of 08/15/2022) [facility] History of Past illness Narrative* Problem Noted Date Resolved Date HEPATITIS B infection in the past 02/07/2008 04/09/2021 Overview: No evidence of chronic infection or cirrhosis Viral hepatitis B without me ntion of hepatic coma, acute or unspecified, without mention of hepatitis delta 2020 Overview: Chronic hepatitis B Depressive disorder in remission 04/09/2021 documented as of this encounter (statuses as of 08/15/2022) [facility] History of Past illness Narrative* Problem Noted Date Resolved Date HEPATITIS B infection in the past 02/07/2008 04/09/2021 Overview: No evidence of chronic infection or cirrhosis Viral hepatitis B without me ntion of hepatic coma, acute or unspecified, without mention of hepatitis delta 2020 Overview: Chronic hepatitis B Depressive disorder in remission 04/09/2021 documented as of this encounter (statuses as of 08/16/2022) [facility] History of Past illness Narrative* Problem Noted Date Resolved Date HEPATITIS B infection in the past 02/07/2008 04/09/2021 Overview: No evidence of chronic infection or cirrhosis Viral hepatitis B without me ntion of hepatic coma, acute or unspecified, without mention of hepatitis delta 2020 Overview: Chronic hepatitis B Depressive disorder in remission 04/09/2021 documented as of this encounter (statuses as of 08/16/2022) [facility] History of Past illness Narrative* Problem Noted Date Resolved Date HEPATITIS B infection in the past 02/07/2008 04/09/2021 Overview: No evidence of chronic infection or cirrhosis Viral hepatitis B without me ntion of hepatic coma, acute or unspecified, without mention of hepatitis delta 2020 Overview: Chronic hepatitis B Depressive disorder in remission 04/09/2021 documented as of this encounter (statuses as of 08/17/2022) [facility] History of Past illness Narrative* Problem Noted Date Resolved Date HEPATITIS B infection in the past 02/07/2008 04/09/2021 Overview: No evidence of chronic infection or cirrhosis Viral hepatitis B without me ntion of hepatic coma, acute or unspecified, without mention of hepatitis delta 2020 Overview: Chronic hepatitis B Depressive disorder in remission 04/09/2021 documented as of this encounter (statuses as of 08/22/2022) [facility] History of Past illness Narrative* Problem Noted Date Resolved Date HEPATITIS B infection in the past 02/07/2008 04/09/2021 Overview: No evidence of chronic infection or cirrhosis Viral hepatitis B without me ntion of hepatic coma, acute or unspecified, without mention of hepatitis delta 2020 Overview: Chronic hepatitis B Depressive disorder in remission 04/09/2021 documented as of this encounter (statuses as of 09/04/2022) [facility] History of Past illness Narrative* Problem Noted Date Resolved Date HEPATITIS B infection in the past 02/07/2008 04/09/2021 Overview: No evidence of chronic infection or cirrhosis Viral hepatitis B without me ntion of hepatic coma, acute or unspecified, without mention of hepatitis delta 2020 Overview: Chronic hepatitis B Depressive disorder in remission 04/09/2021 documented as of this encounter (statuses as of 09/06/2022) [facility] History of Past illness Narrative* Problem Noted Date Resolved Date HEPATITIS B infection in the past 02/07/2008 04/09/2021 Overview: No evidence of chronic infection or cirrhosis Viral hepatitis B without me ntion of hepatic coma, acute or unspecified, without mention of hepatitis delta 2020 Overview: Chronic hepatitis B Depressive disorder in remission 04/09/2021 documented as of this encounter (statuses as of 09/27/2022) [facility] History of Past illness Narrative* Problem Noted Date Resolved Date HEPATITIS B infection in the past 02/07/2008 04/09/2021 Overview: No evidence of chronic infection or cirrhosis Viral hepatitis B without me ntion of hepatic coma, acute or unspecified, without mention of hepatitis delta 2020 Overview: Chronic hepatitis B Depressive disorder in remission 04/09/2021 documented as of this encounter (statuses as of 09/27/2022) [facility] History of Past illness Narrative* Problem Noted Date Resolved Date HEPATITIS B infection in the past 02/07/2008 04/09/2021 Overview: No evidence of chronic infection or cirrhosis Viral hepatitis B without me ntion of hepatic coma, acute or unspecified, without mention of hepatitis delta 2020 Overview: Chronic hepatitis B Depressive disorder in remission 04/09/2021 documented as of this encounter (statuses as of 10/18/2022) [facility] History of Past illness Narrative* Problem Noted Date Resolved Date HEPATITIS B infection in the past 02/07/2008 04/09/2021 Overview: No evidence of chronic infection or cirrhosis Viral hepatitis B without me ntion of hepatic coma, acute or unspecified, without mention of hepatitis delta 2020 Overview: Chronic hepatitis B Depressive disorder in remission 04/09/2021 documented as of this encounter (statuses as of 10/18/2022) [facility] History of Past illness Narrative* Problem Noted Date Resolved Date HEPATITIS B infection in the past 02/07/2008 04/09/2021 Overview: No evidence of chronic infection or cirrhosis Viral hepatitis B without me ntion of hepatic coma, acute or unspecified, without mention of hepatitis delta 2020 Overview: Chronic hepatitis B Depressive disorder in remission 04/09/2021 documented as of this encounter (statuses as of 10/31/2022) [facility] History of Past illness Narrative* Problem Noted Date Resolved Date HEPATITIS B infection in the past 02/07/2008 04/09/2021 Overview: No evidence of chronic infection or cirrhosis Viral hepatitis B without me ntion of hepatic coma, acute or unspecified, without mention of hepatitis delta 2020 Overview: Chronic hepatitis B Depressive disorder in remission 04/09/2021 documented as of this encounter (statuses as of 11/20/2022) [facility] History of Past illness Narrative* Problem Noted Date Resolved Date HEPATITIS B infection in the past 02/07/2008 04/09/2021 Overview: No evidence of chronic infection or cirrhosis Viral hepatitis B without me ntion of hepatic coma, acute or unspecified, without mention of hepatitis delta 2020 Overview: Chronic hepatitis B Depressive disorder in remission 04/09/2021 documented as of this encounter (statuses as of 11/30/2022) [facility] History of Past illness Narrative* Problem Noted Date Resolved Date HEPATITIS B infection in the past 02/07/2008 04/09/2021 Overview: No evidence of chronic infection or cirrhosis Viral hepatitis B without me ntion of hepatic coma, acute or unspecified, without mention of hepatitis delta 2020 Overview: Chronic hepatitis B Depressive disorder in remission 04/09/2021 documented as of this encounter (statuses as of 01/09/2023) [facility] History of Past illness Narrative* Problem Noted Date Resolved Date HEPATITIS B infection in the past 02/07/2008 04/09/2021 Overview: No evidence of chronic infection or cirrhosis Viral hepatitis B without me ntion of hepatic coma, acute or unspecified, without mention of hepatitis delta 2020 Overview: Chronic hepatitis B Depressive disorder in remission 04/09/2021 documented as of this encounter (statuses as of 01/09/2023) [facility] History of Past illness Narrative* Problem Noted Date Resolved Date HEPATITIS B infection in the past 02/07/2008 04/09/2021 Overview: No evidence of chronic infection or cirrhosis Viral hepatitis B without me ntion of hepatic coma, acute or unspecified, without mention of hepatitis delta 2020 Overview: Chronic hepatitis B Depressive disorder in remission 04/09/2021 documented as of this encounter (statuses as of 01/15/2023) [facility] History of Past illness Narrative* Problem Noted Date Resolved Date HEPATITIS B infection in the past 02/07/2008 04/09/2021 Overview: No evidence of chronic infection or cirrhosis Viral hepatitis B without me ntion of hepatic coma, acute or unspecified, without mention of hepatitis delta 2020 Overview: Chronic hepatitis B Depressive disorder in remission 04/09/2021 documented as of this encounter (statuses as of 01/22/2023) [facility] History of Past illness Narrative* Problem Noted Date Resolved Date HEPATITIS B infection in the past 02/07/2008 04/09/2021 Overview: No evidence of chronic infection or cirrhosis Viral hepatitis B without me ntion of hepatic coma, acute or unspecified, without mention of hepatitis delta 2020 Overview: Chronic hepatitis B Depressive disorder in remission 04/09/2021 documented as of this encounter (statuses as of 01/26/2023) [facility] History of Past illness Narrative* Problem Noted Date Resolved Date HEPATITIS B infection in the past 02/07/2008 04/09/2021 Overview: No evidence of chronic infection or cirrhosis Viral hepatitis B without me ntion of hepatic coma, acute or unspecified, without mention of hepatitis delta 2020 Overview: Chronic hepatitis B Depressive disorder in remission 04/09/2021 documented as of this encounter (statuses as of 01/30/2023) [facility] History of Past illness Narrative* Problem Noted Date Resolved Date HEPATITIS B infection in the past 02/07/2008 04/09/2021 Overview: No evidence of chronic infection or cirrhosis Viral hepatitis B without me ntion of hepatic coma, acute or unspecified, without mention of hepatitis delta 2020 Overview: Chronic hepatitis B Depressive disorder in remission 04/09/2021 documented as of this encounter (statuses as of 01/31/2023) [facility] History of Past illness Narrative* Problem Noted Date Resolved Date HEPATITIS B infection in the past 02/07/2008 04/09/2021 Overview: No evidence of chronic infection or cirrhosis Viral hepatitis B without me ntion of hepatic coma, acute or unspecified, without mention of hepatitis delta 2020 Overview: Chronic hepatitis B Depressive disorder in remission 04/09/2021 documented as of this encounter (statuses as of 02/01/2023) [facility] History of Past illness Narrative* Problem Noted Date Resolved Date HEPATITIS B infection in the past 02/07/2008 04/09/2021 Overview: No evidence of chronic infection or cirrhosis Viral hepatitis B without me ntion of hepatic coma, acute or unspecified, without mention of hepatitis delta 2020 Overview: Chronic hepatitis B Depressive disorder in remission 04/09/2021 documented as of this encounter (statuses as of 02/07/2023) [facility] History of Past illness Narrative* Problem Noted Date Resolved Date HEPATITIS B infection in the past 02/07/2008 04/09/2021 Overview: No evidence of chronic infection or cirrhosis Viral hepatitis B without me ntion of hepatic coma, acute or unspecified, without mention of hepatitis delta 2020 Overview: Chronic hepatitis B Depressive disorder in remission 04/09/2021 documented as of this encounter (statuses as of 02/07/2023) [facility] History of Past illness Narrative* Problem Noted Date Resolved Date HEPATITIS B infection in the past 02/07/2008 04/09/2021 Overview: No evidence of chronic infection or cirrhosis Viral hepatitis B without me ntion of hepatic coma, acute or unspecified, without mention of hepatitis delta 2020 Overview: Chronic hepatitis B Depressive disorder in remission 04/09/2021 documented as of this encounter (statuses as of 02/12/2023) [facility] History of Past illness Narrative* Problem Noted Date Resolved Date HEPATITIS B infection in the past 02/07/2008 04/09/2021 Overview: No evidence of chronic infection or cirrhosis Viral hepatitis B without me ntion of hepatic coma, acute or unspecified, without mention of hepatitis delta 2020 Overview: Chronic hepatitis B Depressive disorder in remission 04/09/2021 documented as of this encounter (statuses as of 02/20/2023) [facility] History of Past illness Narrative* Problem Noted Date Resolved Date HEPATITIS B infection in the past 02/07/2008 04/09/2021 Overview: No evidence of chronic infection or cirrhosis Viral hepatitis B without me ntion of hepatic coma, acute or unspecified, without mention of hepatitis delta 2020 Overview: Chronic hepatitis B Depressive disorder in remission 04/09/2021 documented as of this encounter (statuses as of 02/20/2023) [facility] History of Past illness Narrative* Problem Noted Date Resolved Date HEPATITIS B infection in the past 02/07/2008 04/09/2021 Overview: No evidence of chronic infection or cirrhosis Viral hepatitis B without me ntion of hepatic coma, acute or unspecified, without mention of hepatitis delta 2020 Overview: Chronic hepatitis B Depressive disorder in remission 04/09/2021 documented as of this encounter (statuses as of 02/21/2023) [facility] History of Past illness Narrative* Problem Noted Date Resolved Date HEPATITIS B infection in the past 02/07/2008 04/09/2021 Overview: No evidence of chronic infection or cirrhosis Viral hepatitis B without me ntion of hepatic coma, acute or unspecified, without mention of hepatitis delta 2020 Overview: Chronic hepatitis B Depressive disorder in remission 04/09/2021 documented as of this encounter (statuses as of 02/21/2023) [facility] History of Past illness Narrative* Problem Noted Date Resolved Date HEPATITIS B infection in the past 02/07/2008 04/09/2021 Overview: No evidence of chronic infection or cirrhosis Viral hepatitis B without me ntion of hepatic coma, acute or unspecified, without mention of hepatitis delta 2020 Overview: Chronic hepatitis B Depressive disorder in remission 04/09/2021 documented as of this encounter (statuses as of 03/15/2023) [facility] History of Past illness Narrative* Problem Noted Date Resolved Date HEPATITIS B infection in the past 02/07/2008 04/09/2021 Overview: No evidence of chronic infection or cirrhosis Viral hepatitis B without me ntion of hepatic coma, acute or unspecified, without mention of hepatitis delta 2020 Overview: Chronic hepatitis B Depressive disorder in remission 04/09/2021 documented as of this encounter (statuses as of 03/19/2023) [facility] History of Past illness Narrative* Problem Noted Date Resolved Date HEPATITIS B infection in the past 02/07/2008 04/09/2021 Overview: No evidence of chronic infection or cirrhosis Viral hepatitis B without me ntion of hepatic coma, acute or unspecified, without mention of hepatitis delta 2020 Overview: Chronic hepatitis B Depressive disorder in remission 04/09/2021 documented as of this encounter (statuses as of 03/21/2023) [facility] History of Past illness Narrative* Problem Noted Date Resolved Date HEPATITIS B infection in the past 02/07/2008 04/09/2021 Overview: No evidence of chronic infection or cirrhosis Viral hepatitis B without me ntion of hepatic coma, acute or unspecified, without mention of hepatitis delta 2020 Overview: Chronic hepatitis B Depressive disorder in remission 04/09/2021 documented as of this encounter (statuses as of 03/22/2023) [facility] History of Past illness Narrative* Problem Noted Date Resolved Date HEPATITIS B infection in the past 02/07/2008 04/09/2021 Overview: No evidence of chronic infection or cirrhosis Viral hepatitis B without me ntion of hepatic coma, acute or unspecified, without mention of hepatitis delta 2020 Overview: Chronic hepatitis B Depressive disorder in remission 04/09/2021 documented as of this encounter (statuses as of 03/28/2023) [facility] History of Past illness Narrative* Problem Noted Date Resolved Date HEPATITIS B infection in the past 02/07/2008 04/09/2021 Overview: No evidence of chronic infection or cirrhosis Viral hepatitis B without me ntion of hepatic coma, acute or unspecified, without mention of hepatitis delta 2020 Overview: Chronic hepatitis B Depressive disorder in remission 04/09/2021 documented as of this encounter (statuses as of 03/29/2023) [facility] History of Past illness Narrative* Problem Noted Date Resolved Date HEPATITIS B infection in the past 02/07/2008 04/09/2021 Overview: No evidence of chronic infection or cirrhosis Viral hepatitis B without me ntion of hepatic coma, acute or unspecified, without mention of hepatitis delta 2020 Overview: Chronic hepatitis B Depressive disorder in remission 04/09/2021 documented as of this encounter (statuses as of 04/03/2023) [facility] History of Past illness Narrative* Problem Noted Date Resolved Date HEPATITIS B infection in the past 02/07/2008 04/09/2021 Overview: No evidence of chronic infection or cirrhosis Viral hepatitis B without me ntion of hepatic coma, acute or unspecified, without mention of hepatitis delta 2020 Overview: Chronic hepatitis B Depressive disorder in remission 04/09/2021 documented as of this encounter (statuses as of 04/03/2023) [facility] History of Past illness Narrative* Problem Noted Date Resolved Date HEPATITIS B infection in the past 02/07/2008 04/09/2021 Overview: No evidence of chronic infection or cirrhosis Viral hepatitis B without me ntion of hepatic coma, acute or unspecified, without mention of hepatitis delta 2020 Overview: Chronic hepatitis B Depressive disorder in remission 04/09/2021 documented as of this encounter (statuses as of 04/04/2023) [facility] History of Past illness Narrative* Problem Noted Date Resolved Date HEPATITIS B infection in the past 02/07/2008 04/09/2021 Overview: No evidence of chronic infection or cirrhosis Viral hepatitis B without me ntion of hepatic coma, acute or unspecified, without mention of hepatitis delta 2020 Overview: Chronic hepatitis B Depressive disorder in remission 04/09/2021 documented as of this encounter (statuses as of 04/09/2023) [facility] History of Past illness Narrative* Problem Noted [...] of this encounter (statuses as of 04/17/2023) [facility] History of Past illness Narrative* Problem Noted [...] of this encounter (statuses as of 05/14/2023) [facility] History of Past illness Narrative* Problem Noted [...] of this encounter (statuses as of 05/15/2023) [facility] History of Past illness Narrative* Problem Noted [...] of this encounter (statuses as of 05/17/2023) [facility] History of Past illness Narrative* Problem Noted [...] of this encounter (statuses as of 05/25/2023) [facility] History of Past illness Narrative* Problem Noted [...] of this encounter (statuses as of 06/21/2023) [facility] History of Past illness Narrative* Problem Noted [...] of this encounter (statuses as of 06/25/2023) [facility] History of Past illness Narrative* Problem Noted [...] of this encounter (statuses as of 06/25/2023) [facility] History of Past illness Narrative* Problem Noted [...] of this encounter (statuses as of 06/25/2023) [facility] History of Past illness Narrative* Problem Noted [...] of this encounter (statuses as of 06/25/2023) [facility] History of Past illness Narrative* Problem Noted [...] of this encounter (statuses as of 06/25/2023) [facility] History of Past illness Narrative* Problem Noted [...] of this encounter (statuses as of 06/26/2023) [facility] History of Past illness Narrative* Problem Noted [...] of this encounter (statuses as of 06/27/2023) [facility] History of Past illness Narrative* Problem Noted [...] of this encounter (statuses as of 07/23/2023) [facility] History of Past illness Narrative* Problem Noted [...] of this encounter (statuses as of 08/02/2023) [facility] History of Past illness Narrative* Problem Noted [...] of this encounter (statuses as of 08/09/2023) [facility] History of Past illness Narrative* Problem Noted [...] of this encounter (statuses as of 08/11/2023) [facility] History of Past illness Narrative* Problem Noted [...] of this encounter (statuses as of 08/12/2023) [facility] History of Past illness Narrative* Problem Noted [...] of this encounter (statuses as of 08/12/2023) [facility] History of Past illness Narrative* Problem Noted [...] of this encounter (statuses as of 08/12/2023) [facility] History of Past illness Narrative* Problem Noted [...] of this encounter (statuses as of 08/12/2023) [facility] History of Past illness Narrative* Problem Noted [...] of this encounter (statuses as of 08/12/2023) [facility] History of Past illness Narrative* Problem Noted [...] of this encounter (statuses as of 08/14/2023) [facility] History of Past illness Narrative* Problem Noted [...] of this encounter (statuses as of 08/14/2023) [facility] History of Past illness Narrative* Problem Noted [...] of this encounter (statuses as of 08/15/2023) [facility] History of Past illness Narrative* Problem Noted [...] of this encounter (statuses as of 08/17/2023) [facility] History of Past illness Narrative* Problem Noted [...] of this encounter (statuses as of 09/04/2023) [facility] History of Past illness Narrative* Problem Noted [...] of this encounter (statuses as of 09/05/2023) [facility] History of Past illness Narrative* Problem Noted [...] of this encounter (statuses as of 09/18/2023) [facility] History of Past illness Narrative* Problem Noted [...] of this encounter (statuses as of 11/13/2023) [facility] History of Past illness Narrative* Problem Noted [...] of this encounter (statuses as of 11/13/2023) [facility] History of Past illness Narrative* Problem Noted [...] of this encounter (statuses as of 11/16/2023) [facility] History of Past illness Narrative* Problem Noted [...] of this encounter (statuses as of 12/11/2023) [facility] History of Past illness Narrative* Problem Noted [...] of this encounter (statuses as of 12/13/2023) [address] History of Past illness Narrative* Problem [...] of this encounter (statuses as of 12/17/2023) [facility] History of Past illness Narrative* Problem Noted [...] of this encounter (statuses as of 12/20/2023) [facility] History of Past illness Narrative* Problem Noted [...] of this encounter (statuses as of 12/21/2023) [facility] History of Past illness Narrative* Problem Noted [...] of this encounter (statuses as of 12/31/2023) [facility] History of Past illness Narrative* Problem Noted [...] of this encounter (statuses as of 01/01/2024) [facility] History of Past illness Narrative* Problem Noted [...] of this encounter (statuses as of 01/24/2024) [facility] History of Past illness Narrative* Problem Noted [...] of this encounter (statuses as of 01/24/2024) [facility] History of Past illness Narrative* Problem Noted [...] of this encounter (statuses as of 01/25/2024) [facility] Examination of [facility] in [...] Nausea Nausea alone [facility] Diagnosis Bone metastases (HCC) Secondary malignant neoplasm of bone and bone marrow Malignant neoplasm of unspecified part of unspecified bronchus or lung (HCC) Nausea Nausea alone [facility] [...] Cigarette smoker Tobacco use disorder History of [place] (myocardial infarction) Old myocardial infarction COPD with asthma (HCC) Chronic obstructive asthma, unspecified 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) [facility] Cancer of lower lobe of right lung (HCC)- Primary Left leg swelling Swelling of limb [facility] [...] (used in Smart[employer]) [facility] [...] Candidiasis of mouth [facility] Diagnosis Stage 3 severe COPD by GOLD classification (HCC)- Primary Malignant neoplasm of right lung, unspecified part of lung (HCC) Cigarette smoker Tobacco use disorder [facility] Diagnosis Fibromyalgia- Primary Mylagia and [...] and stress (male)(female) Coronary artery disease involving koi coronary artery of koi heart without angina pectoris [facility] Cigarette smoker Tobacco use disorder [facility] History of [place] (myocardial infarction) Old myocardial infarction Cigarette smoker Tobacco use disorder [facility] Examination of participant in clinical trial- Primary [facility] Diagnosis Non-small cell lung cancer [...] [facility] History of [place] (myocardial infarction) Old myocardial infarction [facility] Diagnosis 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)- Primary [facility] Diagnosis 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)- Primary Malaise and fatigue Other malaise and fatigue [facility] [...] [facility] Diagnosis Stage 3 severe COPD by GOLD classification (HCC) Right hip pain Pain in joint, pelvic region and thigh Coronary artery disease involving koi coronary artery of koi heart without angina pectoris Irritable bowel syndrome [...] and fatigue [facility] Diagnosis Shortness of breath on [...] for breast cancer [facility] Diagnosis Non-small cell lung cancer [...] seasonality, unspecified trigger Coronary artery disease involving koi coronary artery of koi heart without angina pectoris 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) History of [place] (myocardial infarction) Old myocardial infarction Migraine with aura and without status migrainosus, not intractable Migraine with aura, without mention of intractable migraine without mention of status migrainosus [facility] Diagnosis Adenopathy- Primary Enlargement of lymph nodes [facility] Diagnosis Adenopathy- Primary Enlargement of lymph [...] and bronchus [facility] Diagnosis Adenopathy Enlargement of lymph nodes Bronchiolar disease Other diseases of trachea and bronchus [facility] Diagnosis 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)- Primary [facility] Diagnosis Encounter for education- Primary Counseling NOS 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) [facility] Diagnosis COPD with exacerbation (HCC)- Primary Obstructive chronic bronchitis with exacerbation Malignant neoplasm of right lung, unspecified part of lung (HCC) Cigarette smoker Tobacco use disorder [facility] Note Date/Time April 27, 2025 9:33 pm [facility] Medical Records Department [address] [place] [address] Progress Note - Hospitalist 04/27/252130 MR#: [id number] Acct: [id number] Name: LATA SMITH Rep #:[id number] : 1960 64 From: Ilana Hassan MD PCP: Dr. Fiona Durant MD Status:AD M IN Location: ICU ICU04-1 Hospitalist Note BP has improved to 99/52 thus far, is responding to fluids, further fluids ordered. Remains 99% on 30 L/min BiPAP without any documented worsening respiratory status with the additional fluids Patient excepted on wait list at [facility] MICU by Dr. Mcguire, was advised patient would not be going overnight and asked that we call tomorrow with updates so patient can be retriaged if necessary. If patientoverall stabilizes and does well may be able to cancel transfer altogether pending clinical status 04/27/252132 <Electronically signed by Ilana Hassan MD> Cosigner Signature (if applicable): CC: ~ Signed [facility] Work Phone: Reason for referral (narrative)* Diagnostic Procedure Only (Routine) - Pending Review Specialty Diagnoses / Procedures Referred By Cat valiente Referred To Contact [facility] Diagnoses Encounter for screening mammogram for breast cancer Procedures CESILIA SCREENING SCREENING MAMMOGRAPHY BI 2-VIEW BREAST INC CAD Fiona Durant MD [address] [place] [address] [facility] [address] [place] [address] Referral ID Status Reason Start Date Expiration Date Visits Requested Visits Authorized [id number] Pending Review Auto-Generat ed Referral 02/15/2022 03/17/2023 1 1 [facility] for referral (narrative)* Outpatient Procedure (Routine) - Authorized Specialty Diagnoses / Procedures Referred By Cat valiente Referred To Contact [facility] Diagnoses Cancer of lower lobe of right lung (HCC) Left leg swelling Procedures US LEG VEIN DVT UNL VAS LAB DUP-SCAN XTR VEINS UNILATERAL/LIMITED STUDY Carrie Preciado, SOLUTIONS DEVELOPMENT ANALYST.ENERGY EFFICIENT SITE MANAGER [address] [place] [address] [facility] [address] [place] [address] Referral ID Status Reason Start Date Expiration Date Visits Requested Visits Authorized [id number] Authorized Auto-Generat ed Referral 01/09/2023 01/09/2024 1 1 [facility] for referral (narrative)* Diagnostic Procedure Only (Routine) - Pending Review Specialty Diagnoses / Procedures Referred By Contac t Referred To Contact [facility] Diagnoses Encounter for screening mammogram for breast cancer Procedures CESILIA SCREENING SCREENING MAMMOGRAPHY BI 2-VIEW BREAST INC CAD Fiona Durant MD [facility] [place] [address] [facility] [address] [place] [address] Referral ID Status Reason Start Date Expiration Date Visits Requested Visits Authorized [id number] Pending Review Auto-Generat ed Referral 01/17/2023 02/16/2024 1 1 T [facility] for referral (narrative)* Diagnostic Procedure Only (Routine) - Authorized Specialty Diagnoses / Procedures Referred By Contac t Referred To Contact [facility] Diagnoses Thyroid nodule Procedures US THYROID/PARATHYROID US SOFT TISSUE HEAD & NECK REAL TIME IMGE DOCTelly Fortune DO [address] [place] [address] Us [facility] Referral ID Status Reason Start Date Expiration Date Visits Requested Visits Authorized [id number] Authorized Auto-Generat ed Referral 02/20/2023 03/21/2024 1 1 T [facility] for referral (narrative)* Diagnostic Procedure Only (Routine) - Closed Specialty Diagnoses / Procedures Referred By Contac t Referred To Contact [facility] Diagnoses Thyroid nodule Procedures US THYROID/PARATHYROID US SOFT TISSUE HEAD & NECK REAL TIME IMGE DOCTelly Fortune DO [address] [place] [address] [facility] [address] Referral ID Status Reason Start Date Expiration Date V isits Requested Visits Authorized [id number] Closed Auto-Generate d Referral 02/20/2023 03/21/2024 1 1 [facility] for referral (narrative)* Diagnostic Procedure Only (Routine) - Closed Specialty Diagnoses / Procedures Referred By Contac t Referred To Contact [facility] Diagnoses 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) Procedures NM PET/CT SKULL-THIGH SUBSEQUENT PET IMAGING CT ATTENUATION SKULL [place] [address] [place] [address] [facility] [address] [place] [address] Referral ID Status Reason Start Date Expiration Date V isits Requested Visits Authorized [id number] Closed Auto-Generate d Referral 11/01/2023 12/31/2023 1 1 [facility] for referral (narrative)* Diagnostic Procedure Only (Routine) - Pending Review Specialty Diagnoses / Procedures Referred By Contac t Referred To Contact [facility] Diagnoses Encounter for screening mammogram for breast cancer Procedures CESILIA SCREENING SCREENING MAMMOGRAPHY BI 2-VIEW BREAST INC CAD Fiona Durant MD [address] [place] [address] [facility] [address] [place] [address] Referral ID Status Reason Start Date Expiration Date Visits Requested Visits Authorized [id number] Pending Review Auto-Generat ed Referral 12/26/2023 01/24/2025 1 1 [facility] for referral (narrative)* Diagnostic Procedure Only (Routine) - Additional Clinical Info Needed Specialty Diagnoses / Procedures Referred By Contac t Referred To Contact [facility] Diagnoses 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) Procedures NM PET/CT SKULL-THIGH SUBSEQUENT PET IMAGING CT ATTENUATION [place] [address] [place] [address] [facility] [address] [place] [address] Referral ID Status Reason Start Date Expiration Date Visits Requested Visits Authorized [id number] Additional Clinical Info Needed Auto-Generat ed Referral 04/15/2024 05/15/2025 1 1 [facility] for referral (narrative)* Diagnostic Procedure Only (Routine) - Pending Review Specialty Diagnoses / Procedures Referred By Cat valiente Referred To Contact [facility] Diagnoses Malignant neoplasm of unspecified part of unspecified bronchus or lung (HCC) Procedures NM PET/CT SKULL-THIGH SUBSEQUENT PET IMAGING CT ATTENUATION [place] [address] [place] [phone] [facility] [address] [place] [address] Referral ID Status Reason Start Date Expiration Date Visits Requested Visits Authorized [id number] Pending Review Auto-Generat ed Referral 09/18/2025 1 1 [facility] for referral (narrative)No reason for referral information [facility] Work Phone: Reason for visit Narrative* Diagnostic Procedure Only (Routine) - Closed Specialty Diagnoses / Procedures Referred By Cat valiente Referred To Contact [facility] Diagnoses 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) Procedures NM PET/CT SKULL-THIGH SUBSEQUENT PET IMAGING CT ATTENUATION SKULL [place] [address] [place] [phone] [facility] [address] [place] [address] Referral ID Status Reason Start Date Expiration Date V isits Requested Visits Authorized [id number] Closed Auto-Generate d Referral 11/01/2023 12/31/2023 1 1 [facility] for visit Narrative* Diagnostic Procedure Only (Routine) - Closed Specialty Diagnoses / Procedures Referred By Contac t Referred To Contact [facility] Diagnoses Malignant neoplasm of unspecified part of unspecified bronchus or lung (HCC) Procedures NM PET/CT WHOLE BODY SUBSEQUENT PET IMAGING FOR CT ATTENUATION [place] [address] [place] [address] [facility] [address] [place] [address] Referral ID Status Reason Start Date Expiration Date V isits Requested Visits Authorized [id number] Closed Auto-Generate d Referral 02/01/2024 04/01/2024 1 1 [facility] for visit Narrative* Diagnostic Procedure Only (Routine) - Closed Specialty Diagnoses / Procedures Referred By Contac t Referred To Contact [facility] Diagnoses Non-small cell lung cancer metastatic to bone (HCC) Procedures NM PET/CT SKULL-THIGH SUBSEQUENT PET IMAGING CT ATTENUATION [place] [address] [place] [address] [facility] [address] [place] [address] Referral ID Status Reason Start Date Expiration Date V isits Requested Visits Authorized [id number] Closed Auto-Generate d Referral 04/21/2024 06/20/2024 2 2 [facility] for visit Narrative* Diagnostic Procedure Only (Routine) - Closed Specialty Diagnoses / Procedures Referred By Contac t Referred To Contact [facility] Diagnoses Malignant neoplasm of unspecified part of unspecified bronchus or lung (HCC) Procedures NM PET/CT SKULL-THIGH SUBSEQUENT PET IMAGING CT ATTENUATION SK[place] [address] [place] [address] [facility] [address] [place] [address] Referral ID Status Reason Start Date Expiration Date V isits Requested Visits Authorized [id number] Closed Auto-Generate d Referral 09/01/2024 10/31/2024 1 1 [facility] for visit Narrative* Diagnostic Procedure Only (Routine) - Closed Specialty Diagnoses / Procedures Referred By Contac t Referred To Contact [facility] Diagnoses 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) Procedures NM PET/CT SKULL-THIGH SUBSEQUENT PET IMAGING CT ATTENUATION SKULL BASE MID-THIGH Sandoval Burgess MD [address] [place] [address] Phone: tel: Molecular Imaging [address] [place] [address] Phone: tel: Referral ID Status Reason Start Date Expiration Date V isits Requested Visits Authorized [id number] Closed Auto-Generate d Referral 02/25/2025 04/26/2025 2 2 [facility] for visit Narrative* Outpatient Procedure (Urgent) - Closed Specialty Diagnoses / Procedures Referred By Contac t Referred To Contact [facility] Diagnoses Adenopathy Procedures ECG COMPLETE ECG ROUTINE ECG W/LEAST 12 LDS W/I&R Edith Willis MD [address] [place] [address] Phone: tel: fax: [place] [address] Referral ID Status Reason Start Date Expiration Date V isits Requested Visits Authorized [id number] Closed Auto-Generate d Referral 03/19/2025 03/19/2026 1 1 [facility] Summary Purpose Family History Relationship Condition Age at Onset Recorded Date/T emily brother Malignant neoplasm Unknown Advance Directives Documents on File Type Date Recorded Patient Skoog Operator Expl anation Advance Directive(s) 06/02/2021 9:50 AM Advance Directive(s) 08/12/2020 2:24 PM Documents on File Type Date Recorded Patient Skoog Operator Expl anation Advance Directive(s) 06/02/2021 9:50 AM Advance Directive(s) 08/12/2020 2:24 PM Advance Directive Response Recorded Date/ Time Do you have a Healthcare Power of Braille And Talking Books Clerk? No April 27, 2025 2:34pm Advance Directives No February 17 9:16pm Reason for Referral Specialty Diagnoses / Procedures Referred By Contac t Referred To Contact CT IMAGING Diagnoses Bone metastases (HCC) Malignant neoplasm of unspecified part of unspecified bronchus or lung (HCC) Nausea Procedures CT ABDOMEN W IVCON CT ABDOMEN W/CONTRAST Anca Huddleston MD [facility] [place] [address] Ct Imaging Referral ID Status Reason Start Date Expiration Date Visits Requested Visits Authorized [id number] Pending Review Auto-Generat ed Referral 02/10/2022 02/02/2023 1 1 Specialty Diagnoses / Procedures Referred By Contac t Referred To Contact CT IMAGING Diagnoses Bone metastases (HCC) Malignant neoplasm of unspecified part of unspecified bronchus or lung (HCC) Procedures CT CHEST W IVCON DIAGNOSTIC COMPUTED TOMOGRAPHY THORAX W/CONTRAST Anca Huddleston MD [address] [place], [place] [address] [place] [address] Ct Imaging Referral ID Status Reason Start Date Expiration Date Visits Requested Visits Authorized [id number] Pending Review Auto-Generat ed Referral 02/10/2022 02/02/2023 1 1 Referral ID Status Reason Start Date Expiration Date V isits Requested Visits Authorized [id number] Closed Auto-Generate d Referral 01/24/2022 03/25/2022 2 2 Referral ID Status Reason Start Date Expiration Date V isits Requested Visits Authorized [id number] Closed Auto-Generate d Referral 01/24/2022 03/25/2022 1 1 Specialty Diagnoses / Procedures Referred By Contac t Referred To Contact CT IMAGING Diagnoses Malignant neoplasm of unspecified part of unspecified bronchus or lung (HCC) Procedures CT CHEST W IVCON DIAGNOSTIC COMPUTED TOMOGRAPHY THORAX W/CONTRAST Anca Huddleston MD [address] [place], [place] [address] [address] Ct Imaging Referral ID Status Reason Start Date Expiration Date V isits Requested Visits Authorized [id number] Closed Auto-Generate d Referral 04/19/2022 06/18/2022 1 1 Specialty Diagnoses / Procedures Referred By Contac t Referred To Contact CT IMAGING Diagnoses Malignant neoplasm of unspecified part of unspecified bronchus or lung (HCC) Procedures CT ABDOMEN W IVCON CT ABDOMEN W/CONTRAST Anca Huddleston MD [address] [place] [address] Ct Imaging Referral ID Status Reason Start Date Expiration Date V isits Requested Visits Authorized [id number] Closed Auto-Generate d Referral 04/19/2022 06/18/2022 1 1 Specialty Diagnoses / Procedures Referred By Contac t Referred To Contact Diagnoses Moderate persistent asthma without complication Bebe Flores, SOLUTIONS DEVELOPMENT ANALYST.CAMP RECREATION SPECIALIST [address] [place] [address] Referral ID Status Reason Start Date Expiration Date Visits Re quested Visits Authorized [id number] Closed 1 1 Specialty Diagnoses / Procedures Referred By Contac t Referred To Contact Fiona Durant MD [address] [place] [address] Referral ID Status Reason Start Date Expiration Date Visits Re quested Visits Authorized [id number] Closed 1 1 Specialty Diagnoses / Procedures Referred By Contac t Referred To Contact Pulmonary and Critical Care Medicine Diagnoses Pulmonary emphysema, unspecified emphysema type (HCC) Simple chronic bronchitis (HCC) COPD with exacerbation (HCC) Procedures CONSULT TO PULM/CRITICAL CARE OFFICE/OUTPATIENT NEW HIGH MDM 60-74 MINUTES Bebe Flores, SOLUTIONS DEVELOPMENT ANALYST.CAMP RECREATION SPECIALIST [address] [place] [address] Referral ID Status Reason Start Date Expiration Date Visits Requested Visits Authorized [id number] Authorized PCP Requested Referral 02/01/2023 02/01/2024 1 1 Specialty Diagnoses / Procedures Referred By Contac t Referred To Contact CT IMAGING Diagnoses Malignant neoplasm of unspecified part of unspecified bronchus or lung (HCC) Procedures CT CHEST W IVCON DIAGNOSTIC COMPUTED TOMOGRAPHY THORAX W/CONTRAST Telly Duncan DO [address] [facility] [place] [address] Ct Imaging Referral ID Status Reason Start Date Expiration Date Visits Requested Visits Authorized [id number] Pending Review Auto-Generat ed Referral 05/11/2023 04/25/2024 1 1 Specialty Diagnoses / Procedures Referred By Contac t Referred To Contact CT IMAGING Diagnoses Malignant neoplasm of unspecified part of unspecified bronchus or lung (HCC) Procedures CT ABD/PEL W IVCON CT ABD & PELVIS W/CONTRAST Telly Duncan DO [address] [place] [address] Ct Imaging Referral ID Status Reason Start Date Expiration Date Visits Requested Visits Authorized [id number] Pending Review Auto-Generat ed Referral 05/11/2023 04/25/2024 1 1 Specialty Diagnoses / Procedures Referred By Contac t Referred To Contact Diagnoses Stage 3 severe COPD by GOLD classification ([facility]) Ann Slade PA-C [address] [place] [address] Referral ID Status Reason Start Date Expiration Date Visits Re quested Visits Authorized [id number] Closed 1 1 Specialty Diagnoses / Procedures Referred By Contac t Referred To Contact Ann Slade PA-C [address] [place] [address] Referral ID Status Reason Start Date Expiration Date Visits Re quested Visits Authorized [id number] Closed 1 1 Specialty Diagnoses / Procedures Referred By Contac t Referred To Contact CT IMAGING Diagnoses Cancer of lower lobe of right lung (HCC) Examination of participant in clinical trial Procedures CT CHEST W IVCON DIAGNOSTIC COMPUTED TOMOGRAPHY THORAX W/CONTRAST Carrie Preciado APRN.ENERGY EFFICIENT SITE MANAGER [address] [place] [address] [place] [address] Referral ID Status Reason Start Date Expiration Date V isits Requested Visits Authorized [id number] Closed Auto-Generate d Referral 01/30/2023 03/31/2023 1 1 Specialty Diagnoses / Procedures Referred By Contac t Referred To Contact CT IMAGING Diagnoses Cancer of lower lobe of right lung (HCC) Examination of participant in clinical trial Procedures CT ABD/PEL W IVCON CT ABD & PELVIS W/CONTRAST Carrie Preciado APRN.ENERGY EFFICIENT SITE MANAGER [address] [place] [address] [place] [address] Referral ID Status Reason Start Date Expiration Date V isits Requested Visits Authorized [id number] Closed Auto-Generate d Referral 01/30/2023 03/31/2023 1 1 Specialty Diagnoses / Procedures Referred By Contac t Referred To Contact CT IMAGING Diagnoses 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) Malignant neoplasm of unspecified part of unspecified bronchus or lung (HCC) Procedures CT CHEST W IVCON DIAGNOSTIC COMPUTED TOMOGRAPHY THORAX W/CONTRAST Telly Duncan, DO [address] [place] [address] [place] [address] Referral ID Status Reason Start Date Expiration Date V isits Requested Visits Authorized [id number] Closed Auto-Generate d Referral 11/09/2022 12/09/2023 1 1 Specialty Diagnoses / Procedures Referred By Contac t Referred To Contact CT IMAGING Diagnoses Cancer of trachea, bronchus, and lung (HCC) Bone metastases Examination of participant in clinical trial Procedures CT ABD/PEL W IVCON CT ABD & PELVIS W/CONTRAST Anca Huddleston MD [address] [place], [place] [address] [address] [place] [address] Referral ID Status Reason Start Date Expiration Date V isits Requested Visits Authorized [id number] Closed Auto-Generate d Referral 10/22/2022 12/21/2022 1 1 Specialty Diagnoses / Procedures Referred By Contac t Referred To Contact CT IMAGING Diagnoses Malignant neoplasm of unspecified part of unspecified bronchus or lung (HCC) Procedures CT ABDOMEN W IVCON CT ABDOMEN W/CONTRAST Anca Huddleston MD [address] [place] [address] [place] [address] Referral ID Status Reason Start Date Expiration Date V isits Requested Visits Authorized [id number] Closed Auto-Generate d Referral 07/28/2022 09/26/2022 2 2 Specialty Diagnoses / Procedures Referred By Contac t Referred To Contact CT IMAGING Diagnoses Malignant neoplasm of unspecified part of unspecified bronchus or lung (HCC) Procedures CT CHEST W IVCON DIAGNOSTIC COMPUTED TOMOGRAPHY THORAX W/CONTRAST Anca Huddleston MD [address] [place] [address] Ct [facility] [place] [address] Referral ID Status Reason Start Date Expiration Date V isits Requested Visits Authorized [id number] Closed Auto-Generate d Referral 07/28/2022 09/26/2022 1 1 Specialty Diagnoses / Procedures Referred By Contac t Referred To Contact CT IMAGING Diagnoses 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, bronchus, and lung (HCC) Malignant neoplasm metastatic to bone (HCC) Examination of participant in clinical trial Procedures CT ABD/PEL W IVCON CT ABD & PELVIS W/[place] [address] [place] [address] Ct Imaging [place] [address] Referral ID Status Reason Start Date Expiration Date V isits Requested Visits Authorized [id number] Closed Auto-Generate d Referral 07/20/2023 09/18/2023 1 1 Specialty Diagnoses / Procedures Referred By Contac t Referred To Contact CT IMAGING Diagnoses 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, bronchus, and lung (HCC) Malignant neoplasm metastatic to bone (HCC) Examination of participant in clinical trial Procedures CT CHEST W IVCON DIAGNOSTIC COMPUTED TOMOGRAPHY THORAX W/[place] [address] [place] [phone] [facility] [place] [address] Referral ID Status Reason Start Date Expiration Date V isits Requested Visits Authorized [id number] Closed Auto-Generate d Referral 07/20/2023 09/18/2023 1 1 Referral ID Status Reason Start Date Expiration Date Visits Re quested Visits Authorized [id number] Closed 1 1 Referral ID Status Reason Start Date Expiration Date V isits Requested Visits Authorized [id number] Authorized 02/20/2024 08/17/2024 1 1 Specialty Diagnoses / Procedures Referred By Contac t Referred To Contact Diagnoses Stage 3 severe COPD by GOLD classification ([facility]) Fiona Durant MD [address] [place] [address] Referral ID Status Reason Start Date Expiration Date Visits Re quested Visits Authorized [id number] Closed 1 1 Specialty Diagnoses / Procedures Referred By Contac t Referred To Contact Diagnoses Chronic obstructive pulmonary disease, unspecified COPD type (HCC) Georgina Morgan MD [address] [place] [address] Referral ID Status Reason Start Date Expiration Date Visits Re quested Visits Authorized [id number] Closed 1 1 Medications Administered Section Inactive Administered Medications - up to 3 most recent administrations Medication Order MAR Action Action Date Dose Rate Site INV PEMBROLIZUMAB (IRB BO4603/19-600) 200 mg in NaCl 0.9% 50 mL [...] Date Dose Rate Site INV PEMBROLIZUMAB (IRB LT7422/19-600) 200 mg in NaCl 0.9% 50 mL [...] Date Dose Rate Site INV PEMBROLIZUMAB (IRB VF0468/19-600) 200 mg in NaCl 0.9% 50 mL 200 mg, INTRAVENOUS, Administer over 30 Minutes, ONCE, 1 dose, On Sun02/15/22 at 1030, APPROX. TOTAL VOLUME Exp 1630 02/15/22 Administer with 0.2 micron filter. Exp: (6 hr) New Bag/Syringe/Bottle 02/15/2022 10:39 AM EDT 200 mg zoledronic ph-gaappizy-7.9NaCl 4 mg iv piggyback 100 mL (ZOMETA) 4 mg, INTRAVENOUS, Administer over 15 Minutes, ONCE, 1 dose, On Sun02/15/22 at 1030, Hazardous Potential Reproductive Risk Drug: Use appropriate PPE. New Bag/Syringe/Bottle 02/15/2022 11:11 AM EDT 4 mg Inactive Administered Medications - up to 3 most recent administrations Medication Order MAR Action Action Date Dose Rate Site INV PEMBROLIZUMAB (IRB [id number]/19-600) 200 mg in NaCl 0.9% 50 mL 200 mg, INTRAVENOUS, Administer over 30 Minutes, ONCE, 1 dose, On Sun03/29/22 at 1500, exp 209903/29/22 (room temp) Approx Total Volume: 66 mL Administer with 0.2 micron filter. Exp: (6 hr) New Bag/Syringe/Bottle 03/29/2022 3:21 PM EDT 200 mg Inactive Administered Medications - up to 3 most recent administrations Medication Order MAR Action Action Date Dose Rate Site INV PEMBROLIZUMAB (IRB [id number]/19-600) 200 mg in NaCl 0.9% 50 mL 200 mg, INTRAVENOUS, Administer over 30 Minutes, ONCE, 1 dose, On Sun04/18/22 at 1330, APPROX. TOTAL VOLUME = 66 mls Exp 193404/18/22 Administer with 0.2 micron filter. Exp: (6 hr) New Bag/Syringe/Bottle 04/18/2022 2:16 PM EDT 200 mg Inactive Administered Medications - up to 3 most recent administrations Medication Order MAR Action Action Date Dose Rate Site INV PEMBROLIZUMAB (IRB SP9368/19-600) 200 mg in NaCl 0.9% 50 mL 200 mg, INTRAVENOUS, Administer over 30 Minutes, ONCE, 1 dose, On Sun05/23/22 at 1000, APPROX. TOTAL VOLUME = 66 mls Exp 159905/23/22 Administer with 0.2 micron filter. Exp: (6 hr) New Bag/Syringe/Bottle 05/23/2022 10:22 AM EDT 200 mg zoledronic bv-pesrdout-7.9NaCl 4 mg iv piggyback 100 mL (ZOMETA) 4 mg, INTRAVENOUS, Administer over 15 Minutes, ONCE, 1 dose, On Sun05/23/22 at 1000, Hazardous Potential Reproductive Risk Drug: Use appropriate PPE. New Bag/Syringe/Bottle 05/23/2022 9:57 AM EDT 4 mg Inactive Administered Medications - up to 3 most recent administrations Medication Order MAR Action Action Date Dose Rate Site INV PEMBROLIZUMAB (IRB OF7087/19-600) 200 mg in NaCl 0.9% 50 mL [...] Date Dose Rate Site INV PEMBROLIZUMAB (IRB [id number]/19-600) 200 mg in NaCl 0.9% 50 mL 200 mg, INTRAVENOUS, Administer over 30 Minutes, ONCE, 1 dose, On Sun07/04/22 at 1430, APPROX. TOTAL VOLUME = 66 mls 202907/04/22 Administer with 0.2 micron filter. Exp: (6 hr) New Bag/Syringe/Bottle 07/04/2022 2:25 PM EDT 200 mg Inactive Administered Medications - up to 3 most recent administrations Medication Order MAR Action Action Date Dose Rate Site INV PEMBROLIZUMAB (IRB [id number]/[id number]) 200 mg in NaCl 0.9% 50 mL [...] Date Dose Rate Site INV PEMBROLIZUMAB (IRB GB9052/19-600) 200 mg in NaCl 0.9% 50 mL [...] 02/21/2023 1:04 PM EDT 400 mg zoledronic mz-ipgdnbuy-7.9NaCl 4 mg iv piggyback 100 mL (ZOMETA) [...] 05/16/2023 2:52 PM EDT 400 mg zoledronic xj-yogecocz-5.9NaCl 4 mg iv piggyback 100 mL (ZOMETA) [...] 08/08/2023 2:41 PM EDT 400 mg zoledronic tm-xrohmhfs-5.9NaCl 4 mg iv piggyback 100 mL (ZOMETA) 4 mg, INTRAVENOUS, Administer over 15 Minutes, ONCE, 1 dose, On Sun08/08/23 at 1500, Hazardous Potential Reproductive Risk Drug: Use appropriate PPE. New Bag/Syringe/Bottle 08/08/2023 3:14 PM EDT 4 mg Chief Complaint and Reason for Visit Chief Complaint Admit Date 6 M FU January 29, 2025 1:5 2pm PNEUMONIA ACUTE HYPOXIA ON BIPAP SABA Apr 9:19pm Reason for Visit Admit Date Hyperlipidemia January 29, 2025 1:5 2pm Essential hypertension January 29, 2025 1:52pm History of coronary artery stent placeme nt January 29, 2025 1:52pm Metastatic lung carcinoma April 27 9:19pm Pneumonia April 27, 2025 9:19 pm Sepsis [place] 21st, 2025 9:19 pm Additional Source Comments INFORMATION SOURCE (unrecogn ized section and content) DATE CREATED AUTHOR 07/06/2020 [facility] DATE CREATED AUTHOR AUTHOR'S ORGANIZ ATION 06/29/2021 [facility] DATE CREATED AUTHOR AUTHOR'S ORGANIZ ATION 07/10/2022 [facility] DATE CREATED AUTHOR AUTHOR'S ORGANIZ ATION 02/01/2025 [facility] DATE CREATED AUTHOR AUTHOR'S ORGANIZ ATION 03/11/2025 [facility] DATE CREATED AUTHOR AUTHOR'S ORGANIZ ATION 03/22/2025 [facility] DATE CREATED AUTHOR AUTHOR'S ORGANIZ ATION 04/25/2025 [facility] Comments (unrecognize d section and content) In the event this informatio n is protected by the Federal Confidentiality of Alcohol and Drug Abuse Patient Records regulations: The Federal rules restrict any use of the information to criminally investigate or prosecute any alcohol or drug abuse patient.[facility] the event this information is protected by the Federal Confidentiality of Alcohol and Drug Abuse Patient Records regulations: The Federal rules restrict any use of the information to criminally investigate or prosecute any alcohol or drug abuse patient.[facility]In the event this information is protected by the Federal Confidentiality of Alcohol and Drug Abuse Patient Records regulations: The Federal rules restrict any use of the information to criminally investigate or prosecute any alcohol or drug abuse patient.[facility]In the event this information is protected by the Federal Confidentiality of Alcohol and Drug Abuse Patient Records regulations: The Federal rules restrict any use of the information to criminally investigate or prosecute any alcohol or drug abuse patient.[facility]In the event this information is protected by the Federal Confidentiality of Alcohol and Drug Abuse Patient Records regulations: The Federal rules restrict any use of the information to criminally investigate or prosecute any alcohol or drug abuse patient.[facility]In the event this information is protected by the Federal Confidentiality of Alcohol and Drug Abuse Patient Records regulations: The Federal rules restrict any use of the information to criminally investigate or prosecute any alcohol or drug abuse patient.[facility]ighIn the event this information is protected by the Federal Confidentiality of Alcohol and Drug Abuse Patient Records regulations: The Federal rules restrict any use of the information to criminally investigate or prosecute any alcohol or drug abuse patient.[facility]ighIn the event this information is protected by the Federal Confidentiality of Alcohol and Drug Abuse Patient Records regulations: The Federal rules restrict any use of the information to criminally investigate or prosecute any alcohol or drug abuse patient.[facility]ighIn the event this information is protected by the Federal Confidentiality of Alcohol and Drug Abuse Patient Records regulations: The Federal rules restrict any use of the information to criminally investigate or prosecute any alcohol or drug abuse patient.[facility]ighIn the event this information is protected by the Federal Confidentiality of Alcohol and Drug Abuse Patient Records regulations: The Federal rules restrict any use of the information to criminally investigate or prosecute any alcohol or drug abuse patient.[facility]ighIn the event this information is protected by the Federal Confidentiality of Alcohol and Drug Abuse Patient Records regulations: The Federal rules restrict any use of the information to criminally investigate or prosecute any alcohol or drug abuse patient.[facility]ighIn the event this information is protected by the Federal Confidentiality of Alcohol and Drug Abuse Patient Records regulations: The Federal rules restrict any use of the information to criminally investigate or prosecute any alcohol or drug abuse patient.[facility]ighIn the event this information is protected by the Federal Confidentiality of Alcohol and Drug Abuse Patient Records regulations: The Federal rules restrict any use of the information to criminally investigate or prosecute any alcohol or drug abuse patient.[facility]ighIn the event this information is protected by the Federal Confidentiality of Alcohol and Drug Abuse Patient Records regulations: The Federal rules restrict any use of the information to criminally investigate or prosecute any alcohol or drug abuse patient.[facility]ighIn the event this information is protected by the Federal Confidentiality of Alcohol and Drug Abuse Patient Records regulations: The Federal rules restrict any use of the information to criminally investigate or prosecute any alcohol or drug abuse patient.[facility]ighIn the event this information is protected by the Federal Confidentiality of Alcohol and Drug Abuse Patient Records regulations: The Federal rules restrict any use of the information to criminally investigate or prosecute any alcohol or drug abuse patient.[facility]ighIn the event this information is protected by the Federal Confidentiality of Alcohol and Drug Abuse Patient Records regulations: The Federal rules restrict any use of the information to criminally investigate or prosecute any alcohol or drug abuse patient.[facility]ighIn the event this information is protected by the Federal Confidentiality of Alcohol and Drug Abuse Patient Records regulations: The Federal rules restrict any use of the information to criminally investigate or prosecute any alcohol or drug abuse patient.[facility]ighIn the event this information is protected by the Federal Confidentiality of Alcohol and Drug Abuse Patient Records regulations: The Federal rules restrict any use of the information to criminally investigate or prosecute any alcohol or drug abuse patient.[facility]ighIn the event this information is protected by the Federal Confidentiality of Alcohol and Drug Abuse Patient Records regulations: The Federal rules restrict any use of the information to criminally investigate or prosecute any alcohol or drug abuse patient.[facility]ighIn the event this information is protected by the Federal Confidentiality of Alcohol and Drug Abuse Patient Records regulations: The Federal rules restrict any use of the information to criminally investigate or prosecute any alcohol or drug abuse patient.[facility]ighIn the event this information is protected by the Federal Confidentiality of Alcohol and Drug Abuse Patient Records regulations: The Federal rules restrict any use of the information to criminally investigate or prosecute any alcohol or drug abuse patient.[facility]ighIn the event this information is protected by the Federal Confidentiality of Alcohol and Drug Abuse Patient Records regulations: The Federal rules restrict any use of the information to criminally investigate or prosecute any alcohol or drug abuse patient.[facility]ighIn the event this information is protected by the Federal Confidentiality of Alcohol and Drug Abuse Patient Records regulations: The Federal rules restrict any use of the information to criminally investigate or prosecute any alcohol or drug abuse patient.[facility]ighIn the event this information is protected by the Federal Confidentiality of Alcohol and Drug Abuse Patient Records regulations: The Federal rules restrict any use of the information to criminally investigate or prosecute any alcohol or drug abuse patient.[facility]ighIn the event this information is protected by the Federal Confidentiality of Alcohol and Drug Abuse Patient Records regulations: The Federal rules restrict any use of the information to criminally investigate or prosecute any alcohol or drug abuse patient.[facility]ighIn the event this information is protected by the Federal Confidentiality of Alcohol and Drug Abuse Patient Records regulations: The Federal rules restrict any use of the information to criminally investigate or prosecute any alcohol or drug abuse patient.[facility]ighIn the event this information is protected by the Federal Confidentiality of Alcohol and Drug Abuse Patient Records regulations: The Federal rules restrict any use of the information to criminally investigate or prosecute any alcohol or drug abuse patient.[facility]ighIn the event this information is protected by the Federal Confidentiality of Alcohol and Drug Abuse Patient Records regulations: The Federal rules restrict any use of the information to criminally investigate or prosecute any alcohol or drug abuse patient.[facility]ighIn the event this information is protected by the Federal Confidentiality of Alcohol and Drug Abuse Patient Records regulations: The Federal rules restrict any use of the information to criminally investigate or prosecute any alcohol or drug abuse patient.[facility]ighIn the event this information is protected by the Federal Confidentiality of Alcohol and Drug Abuse Patient Records regulations: The Federal rules restrict any use of the information to criminally investigate or prosecute any alcohol or drug abuse patient.[facility]ighIn the event this information is protected by the Federal Confidentiality of Alcohol and Drug Abuse Patient Records regulations: The Federal rules restrict any use of the information to criminally investigate or prosecute any alcohol or drug abuse patient.[facility]ighIn the event this information is protected by the Federal Confidentiality of Alcohol and Drug Abuse Patient Records regulations: The Federal rules restrict any use of the information to criminally investigate or prosecute any alcohol or drug abuse patient.[facility]ighIn the event this information is protected by the Federal Confidentiality of Alcohol and Drug Abuse Patient Records regulations: The Federal rules restrict any use of the information to criminally investigate or prosecute any alcohol or drug abuse patient.[facility]ighIn the event this information is protected by the Federal Confidentiality of Alcohol and Drug Abuse Patient Records regulations: The Federal rules restrict any use of the information to criminally investigate or prosecute any alcohol or drug abuse patient.[facility]ighIn the event this information is protected by the Federal Confidentiality of Alcohol and Drug Abuse Patient Records regulations: The Federal rules restrict any use of the information to criminally investigate or prosecute any alcohol or drug abuse patient.[facility]ighIn the event this information is protected by the Federal Confidentiality of Alcohol and Drug Abuse Patient Records regulations: The Federal rules restrict any use of the information to criminally investigate or prosecute any alcohol or drug abuse patient.[facility]ighIn the event this information is protected by the Federal Confidentiality of Alcohol and Drug Abuse Patient Records regulations: The Federal rules restrict any use of the information to criminally investigate or prosecute any alcohol or drug abuse patient.[facility]ighIn the event this information is protected by the Federal Confidentiality of Alcohol and Drug Abuse Patient Records regulations: The Federal rules restrict any use of the information to criminally investigate or prosecute any alcohol or drug abuse patient.[facility]ighIn the event this information is protected by the Federal Confidentiality of Alcohol and Drug Abuse Patient Records regulations: The Federal rules restrict any use of the information to criminally investigate or prosecute any alcohol or drug abuse patient.[facility]ighIn the event this information is protected by the Federal Confidentiality of Alcohol and Drug Abuse Patient Records regulations: The Federal rules restrict any use of the information to criminally investigate or prosecute any alcohol or drug abuse patient.[facility]ighIn the event this information is protected by the Federal Confidentiality of Alcohol and Drug Abuse Patient Records regulations: The Federal rules restrict any use of the information to criminally investigate or prosecute any alcohol or drug abuse patient.[facility]ighIn the event this information is protected by the Federal Confidentiality of Alcohol and Drug Abuse Patient Records regulations: The Federal rules restrict any use of the information to criminally investigate or prosecute any alcohol or drug abuse patient.[facility]ighIn the event this information is protected by the Federal Confidentiality of Alcohol and Drug Abuse Patient Records regulations: The Federal rules restrict any use of the information to criminally investigate or prosecute any alcohol or drug abuse patient.[facility]ighIn the event this information is protected by the Federal Confidentiality of Alcohol and Drug Abuse Patient Records regulations: The Federal rules restrict any use of the information to criminally investigate or prosecute any alcohol or drug abuse patient.[facility]ighIn the event this information is protected by the Federal Confidentiality of Alcohol and Drug Abuse Patient Records regulations: The Federal rules restrict any use of the information to criminally investigate or prosecute any alcohol or drug abuse patient.[facility]ighIn the event this information is protected by the Federal Confidentiality of Alcohol and Drug Abuse Patient Records regulations: The Federal rules restrict any use of the information to criminally investigate or prosecute any alcohol or drug abuse patient.[facility]ighIn the event this information is protected by the Federal Confidentiality of Alcohol and Drug Abuse Patient Records regulations: The Federal rules restrict any use of the information to criminally investigate or prosecute any alcohol or drug abuse patient.[facility]ighIn the event this information is protected by the Federal Confidentiality of Alcohol and Drug Abuse Patient Records regulations: The Federal rules restrict any use of the information to criminally investigate or prosecute any alcohol or drug abuse patient.[facility]ighIn the event this information is protected by the Federal Confidentiality of Alcohol and Drug Abuse Patient Records regulations: The Federal rules restrict any use of the information to criminally investigate or prosecute any alcohol or drug abuse patient.[facility]ighIn the event this information is protected by the Federal Confidentiality of Alcohol and Drug Abuse Patient Records regulations: The Federal rules restrict any use of the information to criminally investigate or prosecute any alcohol or drug abuse patient.[facility]ighIn the event this information is protected by the Federal Confidentiality of Alcohol and Drug Abuse Patient Records regulations: The Federal rules restrict any use of the information to criminally investigate or prosecute any alcohol or drug abuse patient.[facility]ighIn the event this information is protected by the Federal Confidentiality of Alcohol and Drug Abuse Patient Records regulations: The Federal rules restrict any use of the information to criminally investigate or prosecute any alcohol or drug abuse patient.[facility]ighIn the event this information is protected by the Federal Confidentiality of Alcohol and Drug Abuse Patient Records regulations: The Federal rules restrict any use of the information to criminally investigate or prosecute any alcohol or drug abuse patient.[facility]ighIn the event this information is protected by the Federal Confidentiality of Alcohol and Drug Abuse Patient Records regulations: The Federal rules restrict any use of the information to criminally investigate or prosecute any alcohol or drug abuse patient.[facility]ighIn the event this information is protected by the Federal Confidentiality of Alcohol and Drug Abuse Patient Records regulations: The Federal rules restrict any use of the information to criminally investigate or prosecute any alcohol or drug abuse patient.[facility]ighIn the event this information is protected by the Federal Confidentiality of Alcohol and Drug Abuse Patient Records regulations: The Federal rules restrict any use of the information to criminally investigate or prosecute any alcohol or drug abuse patient.[facility]ighIn the event this information is protected by the Federal Confidentiality of Alcohol and Drug Abuse Patient Records regulations: The Federal rules restrict any use of the information to criminally investigate or prosecute any alcohol or drug abuse patient.[facility]ighIn the event this information is protected by the Federal Confidentiality of Alcohol and Drug Abuse Patient Records regulations: The Federal rules restrict any use of the information to criminally investigate or prosecute any alcohol or drug abuse patient.[facility]ighIn the event this information is protected by the Federal Confidentiality of Alcohol and Drug Abuse Patient Records regulations: The Federal rules restrict any use of the information to criminally investigate or prosecute any alcohol or drug abuse patient.[facility]ighIn the event this information is protected by the Federal Confidentiality of Alcohol and Drug Abuse Patient Records regulations: The Federal rules restrict any use of the information to criminally investigate or prosecute any alcohol or drug abuse patient.[facility]ighIn the event this information is protected by the Federal Confidentiality of Alcohol and Drug Abuse Patient Records regulations: The Federal rules restrict any use of the information to criminally investigate or prosecute any alcohol or drug abuse patient.[facility]ighIn the event this information is protected by the Federal Confidentiality of Alcohol and Drug Abuse Patient Records regulations: The Federal rules restrict any use of the information to criminally investigate or prosecute any alcohol or drug abuse patient.[facility]ighIn the event this information is protected by the Federal Confidentiality of Alcohol and Drug Abuse Patient Records regulations: The Federal rules restrict any use of the information to criminally investigate or prosecute any alcohol or drug abuse patient.[facility]ighIn the event this information is protected by the Federal Confidentiality of Alcohol and Drug Abuse Patient Records regulations: The Federal rules restrict any use of the information to criminally investigate or prosecute any alcohol or drug abuse patient.[facility]ighIn the event this information is protected by the Federal Confidentiality of Alcohol and Drug Abuse Patient Records regulations: The Federal rules restrict any use of the information to criminally investigate or prosecute any alcohol or drug abuse patient.[facility]ighIn the event this information is protected by the Federal Confidentiality of Alcohol and Drug Abuse Patient Records regulations: The Federal rules restrict any use of the information to criminally investigate or prosecute any alcohol or drug abuse patient.[facility]ighIn the event this information is protected by the Federal Confidentiality of Alcohol and Drug Abuse Patient Records regulations: The Federal rules restrict any use of the information to criminally investigate or prosecute any alcohol or drug abuse patient.[facility]ighIn the event this information is protected by the Federal Confidentiality of Alcohol and Drug Abuse Patient Records regulations: The Federal rules restrict any use of the information to criminally investigate or prosecute any alcohol or drug abuse patient.[facility]ighIn the event this information is protected by the Federal Confidentiality of Alcohol and Drug Abuse Patient Records regulations: The Federal rules restrict any use of the information to criminally investigate or prosecute any alcohol or drug abuse patient.[facility]ighIn the event this information is protected by the Federal Confidentiality of Alcohol and Drug Abuse Patient Records regulations: The Federal rules restrict any use of the information to criminally investigate or prosecute any alcohol or drug abuse patient.[facility]ighIn the event this information is protected by the Federal Confidentiality of Alcohol and Drug Abuse Patient Records regulations: The Federal rules restrict any use of the information to criminally investigate or prosecute any alcohol or drug abuse patient.[facility]ighIn the event this information is protected by the Federal Confidentiality of Alcohol and Drug Abuse Patient Records regulations: The Federal rules restrict any use of the information to criminally investigate or prosecute any alcohol or drug abuse patient.[facility]ighIn the event this information is protected by the Federal Confidentiality of Alcohol and Drug Abuse Patient Records regulations: The Federal rules restrict any use of the information to criminally investigate or prosecute any alcohol or drug abuse patient.[facility]ighIn the event this information is protected by the Federal Confidentiality of Alcohol and Drug Abuse Patient Records regulations: The Federal rules restrict any use of the information to criminally investigate or prosecute any alcohol or drug abuse patient.[facility]ighIn the event this information is protected by the Federal Confidentiality of Alcohol and Drug Abuse Patient Records regulations: The Federal rules restrict any use of the information to criminally investigate or prosecute any alcohol or drug abuse patient.[facility]ighIn the event this information is protected by the Federal Confidentiality of Alcohol and Drug Abuse Patient Records regulations: The Federal rules restrict any use of the information to criminally investigate or prosecute any alcohol or drug abuse patient.[facility]ighIn the event this information is protected by the Federal Confidentiality of Alcohol and Drug Abuse Patient Records regulations: The Federal rules restrict any use of the information to criminally investigate or prosecute any alcohol or drug abuse patient.[facility]ighIn the event this information is protected by the Federal Confidentiality of Alcohol and Drug Abuse Patient Records regulations: The Federal rules restrict any use of the information to criminally investigate or prosecute any alcohol or drug abuse patient.[facility]ighIn the event this information is protected by the Federal Confidentiality of Alcohol and Drug Abuse Patient Records regulations: The Federal rules restrict any use of the information to criminally investigate or prosecute any alcohol or drug abuse patient.[facility]ighIn the event this information is protected by the Federal Confidentiality of Alcohol and Drug Abuse Patient Records regulations: The Federal rules restrict any use of the information to criminally investigate or prosecute any alcohol or drug abuse patient.[facility]ighIn the event this information is protected by the Federal Confidentiality of Alcohol and Drug Abuse Patient Records regulations: The Federal rules restrict any use of the information to criminally investigate or prosecute any alcohol or drug abuse patient.[facility]ighIn the event this information is protected by the Federal Confidentiality of Alcohol and Drug Abuse Patient Records regulations: The Federal rules restrict any use of the information to criminally investigate or prosecute any alcohol or drug abuse patient.[facility]In the event this information is protected by the Federal Confidentiality of Alcohol and Drug Abuse Patient Records regulations: The Federal rules restrict any use of the information to criminally investigate or prosecute any alcohol or drug abuse patient.[facility]ighIn the event this information is protected by the Federal Confidentiality of Alcohol and Drug Abuse Patient Records regulations: The Federal rules restrict any use of the information to criminally investigate or prosecute any alcohol or drug abuse patient.[facility]ighIn the event this information is protected by the Federal Confidentiality of Alcohol and Drug Abuse Patient Records regulations: The Federal rules restrict any use of the information to criminally investigate or prosecute any alcohol or drug abuse patient.[facility]ighIn the event this information is protected by the Federal Confidentiality of Alcohol and Drug Abuse Patient Records regulations: The Federal rules restrict any use of the information to criminally investigate or prosecute any alcohol or drug abuse patient.[facility]ighIn the event this information is protected by the Federal Confidentiality of Alcohol and Drug Abuse Patient Records regulations: The Federal rules restrict any use of the information to criminally investigate or prosecute any alcohol or drug abuse patient.[facility]ighIn the event this information is protected by the Federal Confidentiality of Alcohol and Drug Abuse Patient Records regulations: The Federal rules restrict any use of the information to criminally investigate or prosecute any alcohol or drug abuse patient.[facility]ighIn the event this information is protected by the Federal Confidentiality of Alcohol and Drug Abuse Patient Records regulations: The Federal rules restrict any use of the information to criminally investigate or prosecute any alcohol or drug abuse patient.[facility]ighIn the event this information is protected by the Federal Confidentiality of Alcohol and Drug Abuse Patient Records regulations: The Federal rules restrict any use of the information to criminally investigate or prosecute any alcohol or drug abuse patient.[facility]ighIn the event this information is protected by the Federal Confidentiality of Alcohol and Drug Abuse Patient Records regulations: The Federal rules restrict any use of the information to criminally investigate or prosecute any alcohol or drug abuse patient.[facility]ighIn the event this information is protected by the Federal Confidentiality of Alcohol and Drug Abuse Patient Records regulations: The Federal rules restrict any use of the information to criminally investigate or prosecute any alcohol or drug abuse patient.[facility]ighIn the event this information is protected by the Federal Confidentiality of Alcohol and Drug Abuse Patient Records regulations: The Federal rules restrict any use of the information to criminally investigate or prosecute any alcohol or drug abuse patient.[facility]ighIn the event this information is protected by the Federal Confidentiality of Alcohol and Drug Abuse Patient Records regulations: The Federal rules restrict any use of the information to criminally investigate or prosecute any alcohol or drug abuse patient.[facility]ighIn the event this information is protected by the Federal Confidentiality of Alcohol and Drug Abuse Patient Records regulations: The Federal rules restrict any use of the information to criminally investigate or prosecute any alcohol or drug abuse patient.[facility]ighIn the event this information is protected by the Federal Confidentiality of Alcohol and Drug Abuse Patient Records regulations: The Federal rules restrict any use of the information to criminally investigate or prosecute any alcohol or drug abuse patient.[facility]ighIn the event this information is protected by the Federal Confidentiality of Alcohol and Drug Abuse Patient Records regulations: The Federal rules restrict any use of the information to criminally investigate or prosecute any alcohol or drug abuse patient.[facility]ighIn the event this information is protected by the Federal Confidentiality of Alcohol and Drug Abuse Patient Records regulations: The Federal rules restrict any use of the information to criminally investigate or prosecute any alcohol or drug abuse patient.[facility]ighIn the event this information is protected by the Federal Confidentiality of Alcohol and Drug Abuse Patient Records regulations: The Federal rules restrict any use of the information to criminally investigate or prosecute any alcohol or drug abuse patient.[facility]ighIn the event this information is protected by the Federal Confidentiality of Alcohol and Drug Abuse Patient Records regulations: The Federal rules restrict any use of the information to criminally investigate or prosecute any alcohol or drug abuse patient.[facility]ighIn the event this information is protected by the Federal Confidentiality of Alcohol and Drug Abuse Patient Records regulations: The Federal rules restrict any use of the information to criminally investigate or prosecute any alcohol or drug abuse patient.[facility]ighIn the event this information is protected by the Federal Confidentiality of Alcohol and Drug Abuse Patient Records regulations: The Federal rules restrict any use of the information to criminally investigate or prosecute any alcohol or drug abuse patient.[facility]ighIn the event this information is protected by the Federal Confidentiality of Alcohol and Drug Abuse Patient Records regulations: The Federal rules restrict any use of the information to criminally investigate or prosecute any alcohol or drug abuse patient.[facility]ighIn the event this information is protected by the Federal Confidentiality of Alcohol and Drug Abuse Patient Records regulations: The Federal rules restrict any use of the information to criminally investigate or prosecute any alcohol or drug abuse patient.[facility]ighIn the event this information is protected by the Federal Confidentiality of Alcohol and Drug Abuse Patient Records regulations: The Federal rules restrict any use of the information to criminally investigate or prosecute any alcohol or drug abuse patient.[facility]ighIn the event this information is protected by the Federal Confidentiality of Alcohol and Drug Abuse Patient Records regulations: The Federal rules restrict any use of the information to criminally investigate or prosecute any alcohol or drug abuse patient.[facility]ighIn the event this information is protected by the Federal Confidentiality of Alcohol and Drug Abuse Patient Records regulations: The Federal rules restrict any use of the information to criminally investigate or prosecute any alcohol or drug abuse patient.[facility]ighIn the event this information is protected by the Federal Confidentiality of Alcohol and Drug Abuse Patient Records regulations: The Federal rules restrict any use of the information to criminally investigate or prosecute any alcohol or drug abuse patient.[facility]ighIn the event this information is protected by the Federal Confidentiality of Alcohol and Drug Abuse Patient Records regulations: The Federal rules restrict any use of the information to criminally investigate or prosecute any alcohol or drug abuse patient.[facility]ighIn the event this information is protected by the Federal Confidentiality of Alcohol and Drug Abuse Patient Records regulations: The Federal rules restrict any use of the information to criminally investigate or prosecute any alcohol or drug abuse patient.[facility]ighIn the event this information is protected by the Federal Confidentiality of Alcohol and Drug Abuse Patient Records regulations: The Federal rules restrict any use of the information to criminally investigate or prosecute any alcohol or drug abuse patient.[facility]ighIn the event this information is protected by the Federal Confidentiality of Alcohol and Drug Abuse Patient Records regulations: The Federal rules restrict any use of the information to criminally investigate or prosecute any alcohol or drug abuse patient.[facility]ighIn the event this information is protected by the Federal Confidentiality of Alcohol and Drug Abuse Patient Records regulations: The Federal rules restrict any use of the information to criminally investigate or prosecute any alcohol or drug abuse patient.[facility]ighIn the event this information is protected by the Federal Confidentiality of Alcohol and Drug Abuse Patient Records regulations: The Federal rules restrict any use of the information to criminally investigate or prosecute any alcohol or drug abuse patient.[facility]ighIn the event this information is protected by the Federal Confidentiality of Alcohol and Drug Abuse Patient Records regulations: The Federal rules restrict any use of the information to criminally investigate or prosecute any alcohol or drug abuse patient.[facility]ighIn the event this information is protected by the Federal Confidentiality of Alcohol and Drug Abuse Patient Records regulations: The Federal rules restrict any use of the information to criminally investigate or prosecute any alcohol or drug abuse patient.[facility]ighIn the event this information is protected by the Federal Confidentiality of Alcohol and Drug Abuse Patient Records regulations: The Federal rules restrict any use of the information to criminally investigate or prosecute any alcohol or drug abuse patient.[facility]ighIn the event this information is protected by the Federal Confidentiality of Alcohol and Drug Abuse Patient Records regulations: The Federal rules restrict any use of the information to criminally investigate or prosecute any alcohol or drug abuse patient.[facility]ighIn the event this information is protected by the Federal Confidentiality of Alcohol and Drug Abuse Patient Records regulations: The Federal rules restrict any use of the information to criminally investigate or prosecute any alcohol or drug abuse patient.[facility]ighIn the event this information is protected by the Federal Confidentiality of Alcohol and Drug Abuse Patient Records regulations: The Federal rules restrict any use of the information to criminally investigate or prosecute any alcohol or drug abuse patient.[facility]ighIn the event this information is protected by the Federal Confidentiality of Alcohol and Drug Abuse Patient Records regulations: The Federal rules restrict any use of the information to criminally investigate or prosecute any alcohol or drug abuse patient.[facility]ighIn the event this information is protected by the Federal Confidentiality of Alcohol and Drug Abuse Patient Records regulations: The Federal rules restrict any use of the information to criminally investigate or prosecute any alcohol or drug abuse patient.[facility]ighIn the event this information is protected by the Federal Confidentiality of Alcohol and Drug Abuse Patient Records regulations: The Federal rules restrict any use of the information to criminally investigate or prosecute any alcohol or drug abuse patient.[facility]ighIn the event this information is protected by the Federal Confidentiality of Alcohol and Drug Abuse Patient Records regulations: The Federal rules restrict any use of the information to criminally investigate or prosecute any alcohol or drug abuse patient.[facility]ighIn the event this information is protected by the Federal Confidentiality of Alcohol and Drug Abuse Patient Records regulations: The Federal rules restrict any use of the information to criminally investigate or prosecute any alcohol or drug abuse patient.[facility]ighIn the event this information is protected by the Federal Confidentiality of Alcohol and Drug Abuse Patient Records regulations: The Federal rules restrict any use of the information to criminally investigate or prosecute any alcohol or drug abuse patient.[facility]ighIn the event this information is protected by the Federal Confidentiality of Alcohol and Drug Abuse Patient Records regulations: The Federal rules restrict any use of the information to criminally investigate or prosecute any alcohol or drug abuse patient.[facility]ighIn the event this information is protected by the Federal Confidentiality of Alcohol and Drug Abuse Patient Records regulations: The Federal rules restrict any use of the information to criminally investigate or prosecute any alcohol or drug abuse patient.[facility]ighIn the event this information is protected by the Federal Confidentiality of Alcohol and Drug Abuse Patient Records regulations: The Federal rules restrict any use of the information to criminally investigate or prosecute any alcohol or drug abuse patient.[facility]ighIn the event this information is protected by the Federal Confidentiality of Alcohol and Drug Abuse Patient Records regulations: The Federal rules restrict any use of the information to criminally investigate or prosecute any alcohol or drug abuse patient.[facility]ighIn the event this information is protected by the Federal Confidentiality of Alcohol and Drug Abuse Patient Records regulations: The Federal rules restrict any use of the information to criminally investigate or prosecute any alcohol or drug abuse patient.[facility]ighIn the event this information is protected by the Federal Confidentiality of Alcohol and Drug Abuse Patient Records regulations: The Federal rules restrict any use of the information to criminally investigate or prosecute any alcohol or drug abuse patient.[facility]ighIn the event this information is protected by the Federal Confidentiality of Alcohol and Drug Abuse Patient Records regulations: The Federal rules restrict any use of the information to criminally investigate or prosecute any alcohol or drug abuse patient.[facility]ighIn the event this information is protected by the Federal Confidentiality of Alcohol and Drug Abuse Patient Records regulations: The Federal rules restrict any use of the information to criminally investigate or prosecute any alcohol or drug abuse patient.[facility]ighIn the event this information is protected by the Federal Confidentiality of Alcohol and Drug Abuse Patient Records regulations: The Federal rules restrict any use of the information to criminally investigate or prosecute any alcohol or drug abuse patient.[facility]ighIn the event this information is protected by the Federal Confidentiality of Alcohol and Drug Abuse Patient Records regulations: The Federal rules restrict any use of the information to criminally investigate or prosecute any alcohol or drug abuse patient.[facility]ighIn the event this information is protected by the Federal Confidentiality of Alcohol and Drug Abuse Patient Records regulations: The Federal rules restrict any use of the information to criminally investigate or prosecute any alcohol or drug abuse patient.[facility]In the event this information is protected by the Federal Confidentiality of Alcohol and Drug Abuse Patient Records regulations: The Federal rules restrict any use of the information to criminally investigate or prosecute any alcohol or drug abuse patient.[facility]ighIn the event this information is protected by the Federal Confidentiality of Alcohol and Drug Abuse Patient Records regulations: The Federal rules restrict any use of the information to criminally investigate or prosecute any alcohol or drug abuse patient.[facility]ighIn the event this information is protected by the Federal Confidentiality of Alcohol and Drug Abuse Patient Records regulations: The Federal rules restrict any use of the information to criminally investigate or prosecute any alcohol or drug abuse patient.[facility]In the event this information is protected by the Federal Confidentiality of Alcohol and Drug Abuse Patient Records regulations: The Federal rules restrict any use of the information to criminally investigate or prosecute any alcohol or drug abuse patient.[facility]In the event this information is protected by the Federal Confidentiality of Alcohol and Drug Abuse Patient Records regulations: The Federal rules restrict any use of the information to criminally investigate or prosecute any alcohol or drug abuse patient.[facility]ighIn the event this information is protected by the Federal Confidentiality of Alcohol and Drug Abuse Patient Records regulations: The Federal rules restrict any use of the information to criminally investigate or prosecute any alcohol or drug abuse patient.[facility]In the event this information is protected by the Federal Confidentiality of Alcohol and Drug Abuse Patient Records regulations: The Federal rules restrict any use of the information to criminally investigate or prosecute any alcohol or drug abuse patient.[facility]In the event this information is protected by the Federal Confidentiality of Alcohol and Drug Abuse Patient Records regulations: The Federal rules restrict any use of the information to criminally investigate or prosecute any alcohol or drug abuse patient.[facility]ighIn the event this information is protected by the Federal Confidentiality of Alcohol and Drug Abuse Patient Records regulations: The Federal rules restrict any use of the information to criminally investigate or prosecute any alcohol or drug abuse patient.[facility]ighIn the event this information is protected by the Federal Confidentiality of Alcohol and Drug Abuse Patient Records regulations: The Federal rules restrict any use of the information to criminally investigate or prosecute any alcohol or drug abuse patient.[facility]In the event this information is protected by the Federal Confidentiality of Alcohol and Drug Abuse Patient Records regulations: The Federal rules restrict any use of the information to criminally investigate or prosecute any alcohol or drug abuse patient.[facility]ighIn the event this information is protected by the Federal Confidentiality of Alcohol and Drug Abuse Patient Records regulations: The Federal rules restrict any use of the information to criminally investigate or prosecute any alcohol or drug abuse patient.[facility]ighIn the event this information is protected by the Federal Confidentiality of Alcohol and Drug Abuse Patient Records regulations: The Federal rules restrict any use of the information to criminally investigate or prosecute any alcohol or drug abuse patient.[facility]ighIn the event this information is protected by the Federal Confidentiality of Alcohol and Drug Abuse Patient Records regulations: The Federal rules restrict any use of the information to criminally investigate or prosecute any alcohol or drug abuse patient.[facility]ighIn the event this information is protected by the Federal Confidentiality of Alcohol and Drug Abuse Patient Records regulations: The Federal rules restrict any use of the information to criminally investigate or prosecute any alcohol or drug abuse patient.[facility]ighIn the event this information is protected by the Federal Confidentiality of Alcohol and Drug Abuse Patient Records regulations: The Federal rules restrict any use of the information to criminally investigate or prosecute any alcohol or drug abuse patient.[facility]ighIn the event this information is protected by the Federal Confidentiality of Alcohol and Drug Abuse Patient Records regulations: The Federal rules restrict any use of the information to criminally investigate or prosecute any alcohol or drug abuse patient.[facility]ighIn the event this information is protected by the Federal Confidentiality of Alcohol and Drug Abuse Patient Records regulations: The Federal rules restrict any use of the information to criminally investigate or prosecute any alcohol or drug abuse patient.[facility]ighIn the event this information is protected by the Federal Confidentiality of Alcohol and Drug Abuse Patient Records regulations: The Federal rules restrict any use of the information to criminally investigate or prosecute any alcohol or drug abuse patient.[facility]ighIn the event this information is protected by the Federal Confidentiality of Alcohol and Drug Abuse Patient Records regulations: The Federal rules restrict any use of the information to criminally investigate or prosecute any alcohol or drug abuse patient.[facility]ighIn the event this information is protected by the Federal Confidentiality of Alcohol and Drug Abuse Patient Records regulations: The Federal rules restrict any use of the information to criminally investigate or prosecute any alcohol or drug abuse patient.[facility]ighIn the event this information is protected by the Federal Confidentiality of Alcohol and Drug Abuse Patient Records regulations: The Federal rules restrict any use of the information to criminally investigate or prosecute any alcohol or drug abuse patient.[facility]ighIn the event this information is protected by the Federal Confidentiality of Alcohol and Drug Abuse Patient Records regulations: The Federal rules restrict any use of the information to criminally investigate or prosecute any alcohol or drug abuse patient.[facility]ighIn the event this information is protected by the Federal Confidentiality of Alcohol and Drug Abuse Patient Records regulations: The Federal rules restrict any use of the information to criminally investigate or prosecute any alcohol or drug abuse patient.[facility]ighIn the event this information is protected by the Federal Confidentiality of Alcohol and Drug Abuse Patient Records regulations: The Federal rules restrict any use of the information to criminally investigate or prosecute any alcohol or drug abuse patient.[facility]ighIn the event this information is protected by the Federal Confidentiality of Alcohol and Drug Abuse Patient Records regulations: The Federal rules restrict any use of the information to criminally investigate or prosecute any alcohol or drug abuse patient.[facility]ighIn the event this information is protected by the Federal Confidentiality of Alcohol and Drug Abuse Patient Records regulations: The Federal rules restrict any use of the information to criminally investigate or prosecute any alcohol or drug abuse patient.[facility]ighIn the event this information is protected by the Federal Confidentiality of Alcohol and Drug Abuse Patient Records regulations: The Federal rules restrict any use of the information to criminally investigate or prosecute any alcohol or drug abuse patient.[facility]ighIn the event this information is protected by the Federal Confidentiality of Alcohol and Drug Abuse Patient Records regulations: The Federal rules restrict any use of the information to criminally investigate or prosecute any alcohol or drug abuse patient.[facility]ighIn the event this information is protected by the Federal Confidentiality of Alcohol and Drug Abuse Patient Records regulations: The Federal rules restrict any use of the information to criminally investigate or prosecute any alcohol or drug abuse patient.[facility]ighIn the event this information is protected by the Federal Confidentiality of Alcohol and Drug Abuse Patient Records regulations: The Federal rules restrict any use of the information to criminally investigate or prosecute any alcohol or drug abuse patient.[facility]ighIn the event this information is protected by the Federal Confidentiality of Alcohol and Drug Abuse Patient Records regulations: The Federal rules restrict any use of the information to criminally investigate or prosecute any alcohol or drug abuse patient.[facility]ighIn the event this information is protected by the Federal Confidentiality of Alcohol and Drug Abuse Patient Records regulations: The Federal rules restrict any use of the information to criminally investigate or prosecute any alcohol or drug abuse patient.[facility]ighIn the event this information is protected by the Federal Confidentiality of Alcohol and Drug Abuse Patient Records regulations: The Federal rules restrict any use of the information to criminally investigate or prosecute any alcohol or drug abuse patient.[facility]ighIn the event this information is protected by the Federal Confidentiality of Alcohol and Drug Abuse Patient Records regulations: The Federal rules restrict any use of the information to criminally investigate or prosecute any alcohol or drug abuse patient.[facility]ighIn the event this information is protected by the Federal Confidentiality of Alcohol and Drug Abuse Patient Records regulations: The Federal rules restrict any use of the information to criminally investigate or prosecute any alcohol or drug abuse patient.[facility]ighIn the event this information is protected by the Federal Confidentiality of Alcohol and Drug Abuse Patient Records regulations: The Federal rules restrict any use of the information to criminally investigate or prosecute any alcohol or drug abuse patient.[facility]ighIn the event this information is protected by the Federal Confidentiality of Alcohol and Drug Abuse Patient Records regulations: The Federal rules restrict any use of the information to criminally investigate or prosecute any alcohol or drug abuse patient.[facility]ighIn the event this information is protected by the Federal Confidentiality of Alcohol and Drug Abuse Patient Records regulations: The Federal rules restrict any use of the information to criminally investigate or prosecute any alcohol or drug abuse patient.[facility]ighIn the event this information is protected by the Federal Confidentiality of Alcohol and Drug Abuse Patient Records regulations: The Federal rules restrict any use of the information to criminally investigate or prosecute any alcohol or drug abuse patient.[facility]ighIn the event this information is protected by the Federal Confidentiality of Alcohol and Drug Abuse Patient Records regulations: The Federal rules restrict any use of the information to criminally investigate or prosecute any alcohol or drug abuse patient.[facility]ighIn the event this information is protected by the Federal Confidentiality of Alcohol and Drug Abuse Patient Records regulations: The Federal rules restrict any use of the information to criminally investigate or prosecute any alcohol or drug abuse patient.[facility]ighIn the event this information is protected by the Federal Confidentiality of Alcohol and Drug Abuse Patient Records regulations: The Federal rules restrict any use of the information to criminally investigate or prosecute any alcohol or drug abuse patient.[facility]ighIn the event this information is protected by the Federal Confidentiality of Alcohol and Drug Abuse Patient Records regulations: The Federal rules restrict any use of the information to criminally investigate or prosecute any alcohol or drug abuse patient.[facility]ighIn the event this information is protected by the Federal Confidentiality of Alcohol and Drug Abuse Patient Records regulations: The Federal rules restrict any use of the information to criminally investigate or prosecute any alcohol or drug abuse patient.[facility]ighIn the event this information is protected by the Federal Confidentiality of Alcohol and Drug Abuse Patient Records regulations: The Federal rules restrict any use of the information to criminally investigate or prosecute any alcohol or drug abuse patient.[facility]ighIn the event this information is protected by the Federal Confidentiality of Alcohol and Drug Abuse Patient Records regulations: The Federal rules restrict any use of the information to criminally investigate or prosecute any alcohol or drug abuse patient.[facility]ighIn the event this information is protected by the Federal Confidentiality of Alcohol and Drug Abuse Patient Records regulations: The Federal rules restrict any use of the information to criminally investigate or prosecute any alcohol or drug abuse patient.[facility]ighIn the event this information is protected by the Federal Confidentiality of Alcohol and Drug Abuse Patient Records regulations: The Federal rules restrict any use of the information to criminally investigate or prosecute any alcohol or drug abuse patient.[facility]ighIn the event this information is protected by the Federal Confidentiality of Alcohol and Drug Abuse Patient Records regulations: The Federal rules restrict any use of the information to criminally investigate or prosecute any alcohol or drug abuse patient.[facility]ighIn the event this information is protected by the Federal Confidentiality of Alcohol and Drug Abuse Patient Records regulations: The Federal rules restrict any use of the information to criminally investigate or prosecute any alcohol or drug abuse patient.[facility]ighIn the event this information is protected by the Federal Confidentiality of Alcohol and Drug Abuse Patient Records regulations: The Federal rules restrict any use of the information to criminally investigate or prosecute any alcohol or drug abuse patient.[facility]ighIn the event this information is protected by the Federal Confidentiality of Alcohol and Drug Abuse Patient Records regulations: The Federal rules restrict any use of the information to criminally investigate or prosecute any alcohol or drug abuse patient.[facility]ighIn the event this information is protected by the Federal Confidentiality of Alcohol and Drug Abuse Patient Records regulations: The Federal rules restrict any use of the information to criminally investigate or prosecute any alcohol or drug abuse patient.[facility]ighIn the event this information is protected by the Federal Confidentiality of Alcohol and Drug Abuse Patient Records regulations: The Federal rules restrict any use of the information to criminally investigate or prosecute any alcohol or drug abuse patient.[facility]ighIn the event this information is protected by the Federal Confidentiality of Alcohol and Drug Abuse Patient Records regulations: The Federal rules restrict any use of the information to criminally investigate or prosecute any alcohol or drug abuse patient.[facility]ighIn the event this information is protected by the Federal Confidentiality of Alcohol and Drug Abuse Patient Records regulations: The Federal rules restrict any use of the information to criminally investigate or prosecute any alcohol or drug abuse patient.[facility]ighIn the event this information is protected by the Federal Confidentiality of Alcohol and Drug Abuse Patient Records regulations: The Federal rules restrict any use of the information to criminally investigate or prosecute any alcohol or drug abuse patient.[facility]ighIn the event this information is protected by the Federal Confidentiality of Alcohol and Drug Abuse Patient Records regulations: The Federal rules restrict any use of the information to criminally investigate or prosecute any alcohol or drug abuse patient.[facility]ighIn the event this information is protected by the Federal Confidentiality of Alcohol and Drug Abuse Patient Records regulations: The Federal rules restrict any use of the information to criminally investigate or prosecute any alcohol or drug abuse patient.[facility]ighIn the event this information is protected by the Federal Confidentiality of Alcohol and Drug Abuse Patient Records regulations: The Federal rules restrict any use of the information to criminally investigate or prosecute any alcohol or drug abuse patient.[facility]ighIn the event this information is protected by the Federal Confidentiality of Alcohol and Drug Abuse Patient Records regulations: The Federal rules restrict any use of the information to criminally investigate or prosecute any alcohol or drug abuse patient.[facility]ighIn the event this information is protected by the Federal Confidentiality of Alcohol and Drug Abuse Patient Records regulations: The Federal rules restrict any use of the information to criminally investigate or prosecute any alcohol or drug abuse patient.[facility]ighIn the event this information is protected by the Federal Confidentiality of Alcohol and Drug Abuse Patient Records regulations: The Federal rules restrict any use of the information to criminally investigate or prosecute any alcohol or drug abuse patient.[facility]ighIn the event this information is protected by the Federal Confidentiality of Alcohol and Drug Abuse Patient Records regulations: The Federal rules restrict any use of the information to criminally investigate or prosecute any alcohol or drug abuse patient.[facility]ighIn the event this information is protected by the Federal Confidentiality of Alcohol and Drug Abuse Patient Records regulations: The Federal rules restrict any use of the information to criminally investigate or prosecute any alcohol or drug abuse patient.[facility]ighIn the event this information is protected by the Federal Confidentiality of Alcohol and Drug Abuse Patient Records regulations: The Federal rules restrict any use of the information to criminally investigate or prosecute any alcohol or drug abuse patient.[facility]ighIn the event this information is protected by the Federal Confidentiality of Alcohol and Drug Abuse Patient Records regulations: The Federal rules restrict any use of the information to criminally investigate or prosecute any alcohol or drug abuse patient.[facility]ighIn the event this information is protected by the Federal Confidentiality of Alcohol and Drug Abuse Patient Records regulations: The Federal rules restrict any use of the information to criminally investigate or prosecute any alcohol or drug abuse patient.[facility]ighIn the event this information is protected by the Federal Confidentiality of Alcohol and Drug Abuse Patient Records regulations: The Federal rules restrict any use of the information to criminally investigate or prosecute any alcohol or drug abuse patient.[facility]ighIn the event this information is protected by the Federal Confidentiality of Alcohol and Drug Abuse Patient Records regulations: The Federal rules restrict any use of the information to criminally investigate or prosecute any alcohol or drug abuse patient.[facility]ighIn the event this information is protected by the Federal Confidentiality of Alcohol and Drug Abuse Patient Records regulations: The Federal rules restrict any use of the information to criminally investigate or prosecute any alcohol or drug abuse patient.[facility]ighIn the event this information is protected by the Federal Confidentiality of Alcohol and Drug Abuse Patient Records regulations: The Federal rules restrict any use of the information to criminally investigate or prosecute any alcohol or drug abuse patient.[facility]ighIn the event this information is protected by the Federal Confidentiality of Alcohol and Drug Abuse Patient Records regulations: The Federal rules restrict any use of the information to criminally investigate or prosecute any alcohol or drug abuse patient.[facility]ighIn the event this information is protected by the Federal Confidentiality of Alcohol and Drug Abuse Patient Records regulations: The Federal rules restrict any use of the information to criminally investigate or prosecute any alcohol or drug abuse patient.[facility]ighIn the event this information is protected by the Federal Confidentiality of Alcohol and Drug Abuse Patient Records regulations: The Federal rules restrict any use of the information to criminally investigate or prosecute any alcohol or drug abuse patient.[facility]ighIn the event this information is protected by the Federal Confidentiality of Alcohol and Drug Abuse Patient Records regulations: The Federal rules restrict any use of the information to criminally investigate or prosecute any alcohol or drug abuse patient.[facility]ighIn the event this information is protected by the Federal Confidentiality of Alcohol and Drug Abuse Patient Records regulations: The Federal rules restrict any use of the information to criminally investigate or prosecute any alcohol or drug abuse patient.[facility]ighIn the event this information is protected by the Federal Confidentiality of Alcohol and Drug Abuse Patient Records regulations: The Federal rules restrict any use of the information to criminally investigate or prosecute any alcohol or drug abuse patient.[facility]ighIn the event this information is protected by the Federal Confidentiality of Alcohol and Drug Abuse Patient Records regulations: The Federal rules restrict any use of the information to criminally investigate or prosecute any alcohol or drug abuse patient.[facility]ighIn the event this information is protected by the Federal Confidentiality of Alcohol and Drug Abuse Patient Records regulations: The Federal rules restrict any use of the information to criminally investigate or prosecute any alcohol or drug abuse patient.[facility]ighIn the event this information is protected by the Federal Confidentiality of Alcohol and Drug Abuse Patient Records regulations: The Federal rules restrict any use of the information to criminally investigate or prosecute any alcohol or drug abuse patient.[facility]ighIn the event this information is protected by the Federal Confidentiality of Alcohol and Drug Abuse Patient Records regulations: The Federal rules restrict any use of the information to criminally investigate or prosecute any alcohol or drug abuse patient.[facility] Care Teams (unrecognized sec tion and content) Early Childhood Lead Teacher Relationship Specialty Start Date End Date Fiona Durant MD [address] [place], [place] [address] PCP - General 11/23/03 Rell Barcenas MD, [address] [place], [place] [id number] Physician Radiation Oncology 08/27/20 Christina Amaro, LILI [address] [place] [address] Manager Analytical Hematology/Oncology 09/13/20 Mckenzie Jones RN Specialty Jacquard Loom Weaver Oncology 09/21/20 Early Childhood Lead Teacher Relationship Specialty Start Date End Date Fiona Durant MD [address] [facility] [address] PCP - General 11/23/03 Rell Barcenas MD, [address] [place] [address] Physician Radiation Oncology 08/27/20 Christina Amaro RN [address] [place] [address] Manager Analytical Hematology/Oncology 09/13/20 Mckenzie Jones RN Specialty Jacquard Loom Weaver Oncology 09/21/20 Early Childhood Lead Teacher Relationship Specialty Start Date End Date Fiona Durant MD [address] [facility] [address] PCP - General 11/23/03 Rell Barcenas MD, [address] [place] [address] Physician Radiation Oncology 08/27/20 Christina Amaro RN [address] [place] [address] Manager Analytical Hematology/Oncology 09/13/20 Mckenzie Jones RN Specialty Jacquard Loom Weaver Oncology 09/21/20 Early Childhood Lead Teacher Relationship Specialty Start Date End Date Fiona Durant MD [address] [place] [address] PCP - General 11/23/03 Rell Barcenas MDMD [address] [place] [address] Physician Radiation Oncology 08/27/20 Christina Amaro, LILI [address] [address] Manager Analytical Hematology/Oncology 09/13/20 Mckenzie Jones RN Specialty Jacquard Loom Weaver Oncology 09/21/20 Early Childhood Lead Teacher Relationship Specialty Start Date End Date Fiona Durant MD [address] [place] [address] PCP - General 11/23/03 Rell Barcenas MD, [address] [place] [address] Physician Radiation Oncology 08/27/20 Christina Amaro RN [address] [facility] [place] [address] Manager Analytical Hematology/Oncology 09/13/20 Mckenzie Jones RN Specialty Jacquard Loom Weaver Oncology 09/21/20 Early Childhood Lead Teacher Relationship Specialty Start Date End Date Fiona Durant MD [address] [place] [address] PCP - General 11/23/03 Rell Barcenas MD, [address] [facility] [place] [address] Physician Radiation Oncology 08/27/20 Christina Amaro RN [address] [address] Manager Analytical Hematology/Oncology 09/13/20 Mckenzie Jones RN Specialty Jacquard Loom Weaver Oncology 09/21/20 Early Childhood Lead Teacher Relationship Specialty Start Date End Date Fiona Durant MD [address] [place] [address] PCP - General 11/23/03 Rell Barcenas MD, [address] [place] [address] Physician Radiation Oncology 08/27/20 Christina Amaro RN [address] [place] [address] Manager Analytical Hematology/Oncology 09/13/20 Mckenzie Jones RN Specialty Jacquard Loom Weaver Oncology 09/21/20 Early Childhood Lead Teacher Relationship Specialty Start Date End Date Fiona Durant MD [address] [facility] [address] PCP - General 11/23/03 Rell Barcenas MD, [address] [place] [address] Physician Radiation Oncology 08/27/20 Christina Amaro RN [address] [place] [address] Manager Analytical Hematology/Oncology 09/13/20 Mckenzie Jones RN Specialty Jacquard Loom Weaver Oncology 09/21/20 Early Childhood Lead Teacher Relationship Specialty Start Date End Date Fiona Durant MD [address] [facility] [address] PCP - General 11/23/03 Rell Barcenas MD, [address] [place] [address] Physician Radiation Oncology 08/27/20 Christina Amaro, LILI [address] [place] [address] Manager Analytical Hematology/Oncology 09/13/20 Mckenzie Jones RN Specialty Jacquard Loom Weaver Oncology 09/21/20 Early Childhood Lead Teacher Relationship Specialty Start Date End Date Fiona Durant MD [address] [facility] [address] PCP - General 11/23/03 Rell Barcenas MD, [address] [place] [address] Physician Radiation Oncology 08/27/20 Christina Amaro RN [address] [place] [address] Specialty Jacquard Loom Weaver Hematology/Oncology 09/13/20 Early Childhood Lead Teacher Relationship Specialty Start Date End Date Fiona Durant MD [address] [place] [address] PCP - General 11/23/03 Rell Barcenas MD, [address] [place] [address] Physician Radiation Oncology 08/27/20 Christina Amaro RN [address] [facility] [place] [address] Specialty Jacquard Loom Weaver Hematology/Oncology 09/13/20 Early Childhood Lead Teacher Relationship Specialty Start Date End Date Fiona Durant MD [address] [facility] [address] PCP - General 11/23/03 Rell Barcenas MD, [address] [place] [address] Physician Radiation Oncology 08/27/20 Christina Amaro RN [address] [place] [address] Specialty Jacquard Loom Weaver Hematology/Oncology 09/13/20 Early Childhood Lead Teacher Relationship Specialty Start Date End Date Fiona Durant MD [address] [place] [address] PCP - General 11/23/03 Rell Barcenas MD, [address] [place] [address] Physician Radiation Oncology 08/27/20 Christina Amaro, LILI [address] [place] [address] Specialty Jacquard Loom Weaver Hematology/Oncology 09/13/20 Mckenzie Jones RN Specialty Jacquard Loom Weaver Oncology 09/21/20 02/13/22 Early Childhood Lead Teacher Relationship Specialty Start Date End Date Fiona Durant MD [address] [facility] [address] PCP - General 11/23/03 Rell Barcenas MD, [address] [place] [address] Physician Radiation Oncology 08/27/20 Christina Amaro, LILI [address] [address] Specialty Jacquard Loom Weaver Hematology/Oncology 09/13/20 Early Childhood Lead Teacher Relationship Specialty Start Date End Date Fiona Durant MD [address] [place] [address] PCP - General 11/23/03 Rell Barcenas MD, [address] [place] [address] Physician Radiation Oncology 08/27/20 Christina Amaro, LILI [address] [place] [address] Specialty Jacquard Loom Weaver Hematology/Oncology 09/13/20 Early Childhood Lead Teacher Relationship Specialty Start Date End Date Fiona Durant MD [address] [place] [address] PCP - General 11/23/03 Rell Barcenas MD, [address] [place] [address] Physician Radiation Oncology 08/27/20 Christina Amaro, LILI [address] [place] [address] Specialty Jacquard Loom Weaver Hematology/Oncology 09/13/20 Early Childhood Lead Teacher Relationship Specialty Start Date End Date Fiona Durant MD [address] [facility] [address] PCP - General 11/23/03 Rell Barcenas MD, [address] [place] [address] Physician Radiation Oncology 08/27/20 Christina Amaro, LILI [address] [place] [address] Specialty Jacquard Loom Weaver Hematology/Oncology 09/13/20 Early Childhood Lead Teacher Relationship Specialty Start Date End Date Fiona Durant MD [address] [facility] [address] PCP - General 11/23/03 Rell Barcenas MD, [address] [place] [address] Physician Radiation Oncology 08/27/20 Christina Amaro, LILI [address] [place] [address] Specialty Jacquard Loom Weaver Hematology/Oncology 09/13/20 Mckenzie Jones RN Specialty Jacquard Loom Weaver Oncology 09/21/20 02/13/22 Early Childhood Lead Teacher Relationship Specialty Start Date End Date Fiona Durant MD [address] [facility] [address] PCP - General 11/23/03 Rell Barcenas MD, [address] [place] [address] Physician Radiation Oncology 08/27/20 Christina Amaro, LILI [address] [place] [address] Specialty Jacquard Loom Weaver Hematology/Oncology 09/13/20 Early Childhood Lead Teacher Relationship Specialty Start Date End Date Fiona Durant MD [address] [facility] [address] PCP - General 11/23/03 Rell Barcenas MD, [address] [place] [address] Physician Radiation Oncology 08/27/20 Christina Amaro, LILI [address] [place] [address] Specialty Jacquard Loom Weaver Hematology/Oncology 09/13/20 Early Childhood Lead Teacher Relationship Specialty Start Date End Date Fiona Durant MD [address] [facility] [address] PCP - General 11/23/03 Rell Barcenas MD, [address] [place] [address] Physician Radiation Oncology 08/27/20 Christina Amaro, LILI [address] [place] [address] Specialty Jacquard Loom Weaver Hematology/Oncology 09/13/20 Early Childhood Lead Teacher Relationship Specialty Start Date End Date Fiona Durant MD [address] [facility] [address] PCP - General 11/23/03 Rell Barcenas MD, [address] [place] [address] Physician Radiation Oncology 08/27/20 Christina Amaro, RN [address] [place] [address] Specialty Jacquard Loom Weaver Hematology/Oncology 09/13/20 Early Childhood Lead Teacher Relationship Specialty Start Date End Date Fiona Durant MD [address] [place] [address] PCP - General 11/23/03 Rell Barcenas MD, [address] [place] [address] Physician Radiation Oncology 08/27/20 Christina Amaro RN [address] [place] [address] Specialty Jacquard Loom Weaver Hematology/Oncology 09/13/20 Early Childhood Lead Teacher Relationship Specialty Start Date End Date Fiona Durant MD [address] [facility] [address] PCP - General 11/23/03 Rell Barcenas MD, [address] [place] [address] Physician Radiation Oncology 08/27/20 Christina Amaro, LILI [address] [place] [address] Specialty Jacquard Loom Weaver Hematology/Oncology 09/13/20 Anca Huddleston MD [address] [place] [address] Hematology/Oncology 05/09/22 Early Childhood Lead Teacher Relationship Specialty Start Date End Date Fiona Durant MD [address] [facility] [address] PCP - General 11/23/03 Rell Barcenas MD, [address] [place] [address] Physician Radiation Oncology 08/27/20 Christina Amaro, LILI [address] [place] [address] Specialty Jacquard Loom Weaver Hematology/Oncology 09/13/20 Anca Huddleston MD [address] [place] [address] Hematology/Oncology 05/09/22 Early Childhood Lead Teacher Relationship Specialty Start Date End Date Fiona Durant MD [address] [place] [address] PCP - General 11/23/03 Rell Barcenas MD, [address] [place] [address] Physician Radiation Oncology 08/27/20 Christina Amaro RN [address] [place] [address] Specialty Jacquard Loom Weaver Hematology/Oncology 09/13/20 Anca Huddleston MD [address] [place] [address] Hematology/Oncology 05/09/22 Early Childhood Lead Teacher Relationship Specialty Start Date End Date Fiona Durant MD [address] [place] [address] PCP - General 11/23/03 Rell Barcenas MD, [address] [place] [address] Physician Radiation Oncology 08/27/20 Christina Amaro, LILI [address] [place] [address] Specialty Jacquard Loom Weaver Hematology/Oncology 09/13/20 Anca Huddleston MD [address] [place] [address] Hematology/Oncology 05/09/22 Early Childhood Lead Teacher Relationship Specialty Start Date End Date Fiona Durant MD [address] [place] [address] PCP - General 11/23/03 Rell Barcenas MD, [address] [place] [address] Physician Radiation Oncology 08/27/20 Christina Amaro RN [address] [place] [address] Specialty Jacquard Loom Weaver Hematology/Oncology 09/13/20 Anca Huddleston MD [address] [place] [address] Hematology/Oncology 05/09/22 Early Childhood Lead Teacher Relationship Specialty Start Date End Date Fiona Durant MD [address] [place] [address] PCP - General 11/23/03 Rell Barcenas MD, [address] [place] [address] Physician Radiation Oncology 08/27/20 Christina Amaro RN [address] [place] [address] Specialty Jacquard Loom Weaver Hematology/Oncology 09/13/20 Anca Huddleston MD [address] [place] [address] Hematology/Oncology 05/09/22 Early Childhood Lead Teacher Relationship Specialty Start Date End Date Fiona Durant MD [address] [place] [address] PCP - General 11/23/03 Rell Barcenas MD, [address] [place] [address] Physician Radiation Oncology 08/27/20 Christina Amaro, LILI [address] [place] [address] Specialty Jacquard Loom Weaver Hematology/Oncology 09/13/20 Anca Huddleston MD [address] [place] [address] Hematology/Oncology 05/09/22 Early Childhood Lead Teacher Relationship Specialty Start Date End Date Fiona Durant MD [address] [place] [address] PCP - General 11/23/03 Rell Barcenas MD, [address] [place] [address] Physician Radiation Oncology 08/27/20 Christina Amaro, LILI [address] [place] [address] Specialty Jacquard Loom Weaver Hematology/Oncology 09/13/20 Anca Huddleston MD [address] [place] [address] Hematology/Oncology 05/09/22 Early Childhood Lead Teacher Relationship Specialty Start Date End Date Fiona Durant MD [address] [place] [address] PCP - General 11/23/03 Rell Barcenas MD, [address] [place] [address] Physician Radiation Oncology 08/27/20 Christina Amaro RN [address] [place] [address] Specialty Jacquard Loom Weaver Hematology/Oncology 09/13/20 Anca Huddleston MD [address] [place] [address] Hematology/Oncology 05/09/22 Early Childhood Lead Teacher Relationship Specialty Start Date End Date Fiona Durant MD [address] [place] [address] PCP - General 11/23/03 Rell Barcenas MD, [address] [place] [address] Physician Radiation Oncology 08/27/20 Christina Amaro RN [address] [place] [address] Specialty Jacquard Loom Weaver Hematology/Oncology 09/13/20 Anca Huddleston MD [address] [place] [address] Hematology/Oncology 05/09/22 Early Childhood Lead Teacher Relationship Specialty Start Date End Date Fiona Durant MD [address] [place] [address] PCP - General 11/23/03 Rell Barcenas MD, [address] [place] [address] Physician Radiation Oncology 08/27/20 Christina Amaro RN [address] [place] [address] Specialty Jacquard Loom Weaver Hematology/Oncology 09/13/20 Anca Huddleston MD [address] [place] [address] Hematology/Oncology 05/09/22 Early Childhood Lead Teacher Relationship Specialty Start Date End Date Fiona Durant MD [address] [place] [address] PCP - General 11/23/03 Rell Barcenas MD, [address] [place] [address] Physician Radiation Oncology 08/27/20 Christina Amaro, LILI [address] [place] [address] Specialty Jacquard Loom Weaver Hematology/Oncology 09/13/20 Early Childhood Lead Teacher Relationship Specialty Start Date End Date Fiona Durant MD [address] [place] [address] PCP - General 11/23/03 Rell Barcenas MD, [address] [place] [address] Physician Radiation Oncology 08/27/20 Christina Amaro, LILI [address] [place] [address] Specialty Jacquard Loom Weaver Hematology/Oncology 09/13/20 Anca Huddleston MD [address] [place] [address] Hematology/Oncology 05/09/22 Early Childhood Lead Teacher Relationship Specialty Start Date End Date Fiona Durant MD [address] [place] [address] PCP - General 11/23/03 Rell Barcenas MD, [address] [place] [address] Physician Radiation Oncology 08/27/20 Christina Amaro RN [address] [place] [address] Specialty Jacquard Loom Weaver Hematology/Oncology 09/13/20 Anca Huddleston MD [address] [place] [address] Hematology/Oncology 05/09/22 Early Childhood Lead Teacher Relationship Specialty Start Date End Date Fiona Durant MD [address] [place] [address] PCP - General 11/23/03 Rell Barcenas MD, [address] [place] [address] Physician Radiation Oncology 08/27/20 Christina Amaro RN [address] [place] [address] Specialty Jacquard Loom Weaver Hematology/Oncology 09/13/20 Anca Huddleston MD [address] [place] [address] Hematology/Oncology 05/09/22 Early Childhood Lead Teacher Relationship Specialty Start Date End Date Fiona Durant MD [address] [place] [address] PCP - General 11/23/03 Rell Barcenas MD, [address] [place] [address] Physician Radiation Oncology 08/27/20 Christina Aamro RN [address] [place] [address] Specialty Jacquard Loom Weaver Hematology/Oncology 09/13/20 Anca Huddleston MD [address] [place] [address] Hematology/Oncology 05/09/22 Early Childhood Lead Teacher Relationship Specialty Start Date End Date Fiona Durant MD [address] [place] [address] PCP - General 11/23/03 Rell Barcenas MD, [address] [place] [address] Physician Radiation Oncology 08/27/20 Christina Amaro RN [address] [place] [address] Specialty Jacquard Loom Weaver Hematology/Oncology 09/13/20 Anca Huddleston MD [address] [place] [address] Hematology/Oncology 05/09/22 Early Childhood Lead Teacher Relationship Specialty Start Date End Date Fiona Durant MD [address] [facility] [address] PCP - General 11/23/03 Rell Barcenas MD, [address] [place] [address] Physician Radiation Oncology 08/27/20 Christina Amaro, LILI [address] [place] [address] Specialty Jacquard Loom Weaver Hematology/Oncology 09/13/20 Anca Huddleston MD [address] [place] [address] Hematology/Oncology 05/09/22 Early Childhood Lead Teacher Relationship Specialty Start Date End Date Fiona Durant MD [address] [facility] [address] PCP - General 11/23/03 Rell Barcenas MD, [address] [place] [address] Physician Radiation Oncology 08/27/20 Christina Amaro RN [address] [place] [address] Specialty Jacquard Loom Weaver Hematology/Oncology 09/13/20 Anca Huddleston MD [address] [place] [address] Hematology/Oncology 05/09/22 Early Childhood Lead Teacher Relationship Specialty Start Date End Date Fiona Durant MD [address] [place] [address] PCP - General 11/23/03 Rell Barcenas MD, [address] [place] [address] Physician Radiation Oncology 08/27/20 Christina Amaro RN [address] [place] [address] Specialty Jacquard Loom Weaver Hematology/Oncology 09/13/20 Anca Huddleston MD [address] [place] [address] Hematology/Oncology 05/09/22 Early Childhood Lead Teacher Relationship Specialty Start Date End Date Fiona Durant MD [address] [place] [address] PCP - General 11/23/03 Rell Barcenas MD, [address] [place] [address] Physician Radiation Oncology 08/27/20 Christina Amaro RN [address] [place] [address] Specialty Jacquard Loom Weaver Hematology/Oncology 09/13/20 Anca Huddleston MD [address] [place] [address] Hematology/Oncology 05/09/22 Early Childhood Lead Teacher Relationship Specialty Start Date End Date Fiona Durant MD [address] [place] [address] PCP - General 11/23/03 Rell Barcenas MD, [address] [place] [address] Physician Radiation Oncology 08/27/20 Christina Amaro, LILI [address] [place] [address] Specialty Jacquard Loom Weaver Hematology/Oncology 09/13/20 Anca Huddleston MD [address] [place] [address] Hematology/Oncology 05/09/22 Early Childhood Lead Teacher Relationship Specialty Start Date End Date Fiona Durant MD [address] [place] [address] PCP - General 11/23/03 Rell Barcenas MD, [address] [place] [address] Physician Radiation Oncology 08/27/20 Christina Amaro, LILI [address] [place] [address] Specialty Jacquard Loom Weaver Hematology/Oncology 09/13/20 Anca Huddleston MD [address] [place] [address] Hematology/Oncology 05/09/22 Early Childhood Lead Teacher Relationship Specialty Start Date End Date Fiona Durant MD [address] [place] [address] PCP - General 11/23/03 Rell Barcenas MD, [address] [place] [address] Physician Radiation Oncology 08/27/20 Christina Amaro, LILI [address] [place] [address] Specialty Jacquard Loom Weaver Hematology/Oncology 09/13/20 Anca Huddleston MD [address] [place] [address] Hematology/Oncology 05/09/22 Early Childhood Lead Teacher Relationship Specialty Start Date End Date Fiona Durant MD [address] [place] [address] PCP - General 11/23/03 Rell Barcenas MD, [address] [place] [address] Physician Radiation Oncology 08/27/20 Christina Amaro, LILI [address] [place] [address] Specialty Jacquard Loom Weaver Hematology/Oncology 09/13/20 Anca Huddleston MD [address] [place] [address] Hematology/Oncology 05/09/22 Early Childhood Lead Teacher Relationship Specialty Start Date End Date Fiona Durant MD [address] [place] [address] PCP - General 11/23/03 Rell Barcenas MD, [address] [place] [address] Physician Radiation Oncology 08/27/20 Christina Amaro, LILI [address] [place] [address] Specialty Jacquard Loom Weaver Hematology/Oncology 09/13/20 Anca Huddleston MD [address] [place] [address] Hematology/Oncology 05/09/22 Early Childhood Lead Teacher Relationship Specialty Start Date End Date Fiona Durant MD [address] [place] [address] PCP - General 11/23/03 Rell Barcenas MD, [address] [place] [address] Physician Radiation Oncology 08/27/20 Christina Amaro RN [address] [place] [address] Specialty Jacquard Loom Weaver Hematology/Oncology 09/13/20 Anca Huddleston MD [address] [place] [address] Hematology/Oncology 05/09/22 Early Childhood Lead Teacher Relationship Specialty Start Date End Date Fiona Durant MD [address] [place] [address] PCP - General 11/23/03 Rell Barcenas MD, [address] [place] [address] Physician Radiation Oncology 08/27/20 Christina Amaro, LILI [address] [place] [address] Specialty Jacquard Loom Weaver Hematology/Oncology 09/13/20 Anca Huddleston MD [address] [place] [address] Hematology/Oncology 05/09/22 Early Childhood Lead Teacher Relationship Specialty Start Date End Date Fiona Durant MD [address] [place] [address] PCP - General 11/23/03 Rell Barcenas MD, [address] [place] [address] Physician Radiation Oncology 08/27/20 Christina Amaro RN [address] [place] [address] Specialty Jacquard Loom Weaver Hematology/Oncology 09/13/20 Anca Huddleston MD [address] [place] [address] Hematology/Oncology 05/09/22 Early Childhood Lead Teacher Relationship Specialty Start Date End Date Fiona Durant MD [address] [place] [address] PCP - General 11/23/03 Rell Barcenas MD, [address] [place] [address] Physician Radiation Oncology 08/27/20 Christina Amaro, LILI [address] [place] [address] Specialty Jacquard Loom Weaver Hematology/Oncology 09/13/20 Anca Huddleston MD [address] [place] [address] Hematology/Oncology 05/09/22 Early Childhood Lead Teacher Relationship Specialty Start Date End Date Fiona Durant MD [address] [place] [address] PCP - General 11/23/03 Rell Barcenas MD, [address] [place] [address] Physician Radiation Oncology 08/27/20 Christina Amaro, RN [address] [place] [address] Specialty Jacquard Loom Weaver Hematology/Oncology 09/13/20 Early Childhood Lead Teacher Relationship Specialty Start Date End Date Fiona Durant MD [address] [facility] [address] PCP - General 11/23/03 Rell Barcenas MD, [address] [place] [address] Physician Radiation Oncology 08/27/20 Christina Amaro RN [address] [place] [address] Specialty Jacquard Loom Weaver Hematology/Oncology 09/13/20 Early Childhood Lead Teacher Relationship Specialty Start Date End Date Fiona Durant MD [address] [facility] [address] PCP - General 11/23/03 Rell Barcenas MD, [address] [place] [address] Physician Radiation Oncology 08/27/20 Christina Amaro, LILI [address] [facility] [place] [address] Specialty Jacquard Loom Weaver Hematology/Oncology 09/13/20 Early Childhood Lead Teacher Relationship Specialty Start Date End Date Fiona Durant MD [address] [facility] [address] PCP - General 11/23/03 Rell Barcenas MD, [address] [place] [address] Physician Radiation Oncology 08/27/20 Christina Amaro, RN [address] [place] [address] Specialty Jacquard Loom Weaver Hematology/Oncology 09/13/20 Early Childhood Lead Teacher Relationship Specialty Start Date End Date Fiona Durant MD [address] [place] [address] PCP - General 11/23/03 Rell Barcenas MD, [address] [place] [address] Physician Radiation Oncology 08/27/20 Christina Amaro, LILI [address] [place] [address] Specialty Jacquard Loom Weaver Hematology/Oncology 09/13/20 Early Childhood Lead Teacher Relationship Specialty Start Date End Date Fiona Durant MD [address] [facility] [address] PCP - General 11/23/03 Rell Barcenas MD, [address] [place] [address] Physician Radiation Oncology 08/27/20 Christina Amaro, RN [address] [place] [address] Specialty Jacquard Loom Weaver Hematology/Oncology 09/13/20 Early Childhood Lead Teacher Relationship Specialty Start Date End Date Fiona Durant MD [address] [place] [address] PCP - General 11/23/03 Rell Barcenas MD, [address] [place] [address] Physician Radiation Oncology 08/27/20 Christina Amaro, LILI [address] [place] [address] Specialty Jacquard Loom Weaver Hematology/Oncology 09/13/20 Anca Huddleston MD [address] [place] [address] Hematology/Oncology 05/09/22 02/19/23 Early Childhood Lead Teacher Relationship Specialty Start Date End Date Fiona Durant MD [address] [facility] [address] PCP - General 11/23/03 Rell Barcenas MD, [address] [place] [address] Physician Radiation Oncology 08/27/20 Christina Amaro RN [address] [address] Specialty Jacquard Loom Weaver Hematology/Oncology 09/13/20 Early Childhood Lead Teacher Relationship Specialty Start Date End Date Fiona Durant MD [address] [facility] [address] PCP - General 11/23/03 Rell Barcenas MD, [address] [place] [address] Physician Radiation Oncology 08/27/20 Christina Amaro RN [address] [place] [address] Specialty Jacquard Loom Weaver Hematology/Oncology 09/13/20 Early Childhood Lead Teacher Relationship Specialty Start Date End Date Fiona Durant MD [address] [facility] [address] PCP - General 11/23/03 Rell Barcenas MD, [address] [place] [address] Physician Radiation Oncology 08/27/20 Christina Amaro, RN [address] [place] [address] Specialty Jacquard Loom Weaver Hematology/Oncology 09/13/20 Early Childhood Lead Teacher Relationship Specialty Start Date End Date Fiona Durant MD [address] [place] [address] PCP - General 11/23/03 Rell Barcenas MD, [address] [place] [address] Physician Radiation Oncology 08/27/20 Christina Amaro RN [address] [place] [address] Specialty Jacquard Loom Weaver Hematology/Oncology 09/13/20 Early Childhood Lead Teacher Relationship Specialty Start Date End Date Fiona Durant MD [address] [place] [address] PCP - General 11/23/03 Rell Barcenas MD, [address] [place] [address] Physician Radiation Oncology 08/27/20 Christina Amaro, LILI [address] [place] [address] Specialty Jacquard Loom Weaver Hematology/Oncology 09/13/20 Early Childhood Lead Teacher Relationship Specialty Start Date End Date Fiona Durant MD [address] [facility] [address] PCP - General 11/23/03 Rell Barcenas MD, [address] [place] [address] Physician Radiation Oncology 08/27/20 Christina Amaro, LILI [address] [place] [address] Specialty Jacquard Loom Weaver Hematology/Oncology 09/13/20 Early Childhood Lead Teacher Relationship Specialty Start Date End Date Fiona Durant MD [address] [place] [address] PCP - General 11/23/03 Rell Barcenas MD, [address] [place] [address] Physician Radiation Oncology 08/27/20 Christina Amaro RN [address] [place] [address] Specialty Jacquard Loom Weaver Hematology/Oncology 09/13/20 Sandoval Burgess MD [address] [place] [address] Hematology/Oncology 05/15/23 Early Childhood Lead Teacher Relationship Specialty Start Date End Date Fiona Durant MD [address] [place] [address] PCP - General 11/23/03 Rell Barcenas MD, [address] [place] [address] Physician Radiation Oncology 08/27/20 Christina Amaro, LILI [address] [place] [address] Specialty Jacquard Loom Weaver Hematology/Oncology 09/13/20 Sandoval Burgess MD [address] [place] [address] Hematology/Oncology 05/15/23 Early Childhood Lead Teacher Relationship Specialty Start Date End Date Fiona Durant MD [address] [place] [address] PCP - General 11/23/03 Rell Barcenas MD, [address] [place] [address] Physician Radiation Oncology 08/27/20 Christina Amaro RN [address] [place] [address] Specialty Jacquard Loom Weaver Hematology/Oncology 09/13/20 Sandoval Burgess MD [address] [place] [address] Hematology/Oncology 05/15/23 Early Childhood Lead Teacher Relationship Specialty Start Date End Date Fiona Durant MD [address] [place] [address] PCP - General 11/23/03 Rell Barcenas MD, [address] [place] [address] Physician Radiation Oncology 08/27/20 Christina Amaro RN [address] [place] [address] Specialty Jacquard Loom Weaver Hematology/Oncology 09/13/20 Sandoval Burgess MD [address] [place] [address] Hematology/Oncology 05/15/23 Early Childhood Lead Teacher Relationship Specialty Start Date End Date Fiona Durant MD [address] [place] [address] PCP - General 11/23/03 Rell Barcenas MD, [address] [place] [address] Physician Radiation Oncology 08/27/20 Christina Amaro, LILI [address] [place] [address] Specialty Jacquard Loom Weaver Hematology/Oncology 09/13/20 Sandoval Burgess MD [address] [place] [address] Hematology/Oncology 05/15/23 Early Childhood Lead Teacher Relationship Specialty Start Date End Date Fiona Durant MD [address] [place] [address] PCP - General 11/23/03 Rell Barcenas MD, [address] [place] [address] Physician Radiation Oncology 08/27/20 Christina Amaro, LILI [address] [place] [address] Specialty Jacquard Loom Weaver Hematology/Oncology 09/13/20 Sandoval Burgess MD [address] [place] [address] Hematology/Oncology 05/15/23 Early Childhood Lead Teacher Relationship Specialty Start Date End Date Fiona Durant MD [address] [place] [address] PCP - General 11/23/03 Rell Barcenas MD, [address] [place] [address] Physician Radiation Oncology 08/27/20 Christina Amaro, LILI [address] [place] [address] Specialty Jacquard Loom Weaver Hematology/Oncology 09/13/20 Sandoval Burgess MD [address] [place] [address] Hematology/Oncology 05/15/23 Early Childhood Lead Teacher Relationship Specialty Start Date End Date Fiona Durant MD [address] [place] [address] PCP - General 11/23/03 Rell Barcenas MD, [address] [place] [address] Physician Radiation Oncology 08/27/20 Christina Amaro, LILI [address] [place] [address] Specialty Jacquard Loom Weaver Hematology/Oncology 09/13/20 Sandoval Burgess MD [address] [place] [address] Hematology/Oncology 05/15/23 Early Childhood Lead Teacher Relationship Specialty Start Date End Date Fiona Durant MD [address] [place] [address] PCP - General 11/23/03 Rell Barcenas MD, [address] [place] [address] Physician Radiation Oncology 08/27/20 Christina Amaro, LILI [address] [place] [address] Specialty Jacquard Loom Weaver Hematology/Oncology 09/13/20 Sandoval Burgess MD [address] [place] [address] Hematology/Oncology 05/15/23 Early Childhood Lead Teacher Relationship Specialty Start Date End Date Fiona Durant MD [address] [place] [address] PCP - General 11/23/03 Rell Barcenas MD, [address] [place] [address] Physician Radiation Oncology 08/27/20 Christina Amaro, ILLI [address] [place] [address] Specialty Jacquard Loom Weaver Hematology/Oncology 09/13/20 Sandoval Burgess MD [address] [place] [address] Hematology/Oncology 05/15/23 Early Childhood Lead Teacher Relationship Specialty Start Date End Date Fiona Durant MD [address] [place] [address] PCP - General 11/23/03 Rell Barcenas MD, [address] [place], [place] [address] Physician Radiation Oncology 08/27/20 Christina Amaro, LILI [address] [place] [address] Specialty Jacquard Loom Weaver Hematology/Oncology 09/13/20 Sandoval Burgess MD [address] [place] [address] Hematology/Oncology 05/15/23 Early Childhood Lead Teacher Relationship Specialty Start Date End Date Fiona Durant MD [address] [place] [address] PCP - General 11/23/03 Rell Barcenas MD, [address] [place] [address] Physician Radiation Oncology 08/27/20 Christina Amaro, LILI [address] [place] [address] Specialty Jacquard Loom Weaver Hematology/Oncology 09/13/20 Sandoval Burgess MD [address] [place] [address] Hematology/Oncology 05/15/23 Early Childhood Lead Teacher Relationship Specialty Start Date End Date Fiona Durant MD [address] [place] [address] PCP - General 11/23/03 Rell Barcenas MD, [address] [place] [address] Physician Radiation Oncology 08/27/20 Christina Amaro, RN [address] [place] [address] Specialty Jacquard Loom Weaver Hematology/Oncology 09/13/20 Sandoval Burgess MD [address] [place] [address] Hematology/Oncology 05/15/23 Early Childhood Lead Teacher Relationship Specialty Start Date End Date Fiona Durant MD [address] [place] [address] PCP - General 11/23/03 Rell Barcenas MD, [address] [place] [address] Physician Radiation Oncology 08/27/20 Christina Amaro, LILI [address] [place] [address] Specialty Jacquard Loom Weaver Hematology/Oncology 09/13/20 Sandoval Burgess MD [address] [place] [address] Hematology/Oncology 05/15/23 Early Childhood Lead Teacher Relationship Specialty Start Date End Date Fiona Durant MD [address] [place] [address] PCP - General 11/23/03 Rell Barcenas MD, MD [address] [place] [address] Physician Radiation Oncology 08/27/20 Christina Amaro, LILI [address] [place] [address] Specialty Jacquard Loom Weaver Hematology/Oncology 09/13/20 Early Childhood Lead Teacher Relationship Specialty Start Date End Date Fiona Durant MD [address] [place] [address] PCP - General 11/23/03 Rell Barcenas MD, [address] [place] [address] Physician Radiation Oncology 08/27/20 Christina Amaro RN [address] [place] [address] Specialty Jacquard Loom Weaver Hematology/Oncology 09/13/20 Anca Huddleston MD [address] [place] [address] Hematology/Oncology 05/09/22 02/19/23 Early Childhood Lead Teacher Relationship Specialty Start Date End Date Fiona Durant MD [address] [place] [address] PCP - General 11/23/03 Rell Barcenas MD, [address] [place] [address] Physician Radiation Oncology 08/27/20 Christina Amaro, RN [address] [place] [address] Specialty Jacquard Loom Weaver Hematology/Oncology 09/13/20 Anca Huddleston MD [address] [place] [address] Hematology/Oncology 05/09/22 02/19/23 Early Childhood Lead Teacher Relationship Specialty Start Date End Date Fiona Durant MD [address] [place] [address] PCP - General 11/23/03 Rell Barcenas MD, [address] [place] [address] Physician Radiation Oncology 08/27/20 Christina Amaro, RN [address] [place] [address] Specialty Jacquard Loom Weaver Hematology/Oncology 09/13/20 Early Childhood Lead Teacher Relationship Specialty Start Date End Date Fiona Durant MD [address] [place] [address] PCP - General 11/23/03 Rell Barcenas MD, [address] [place] [address] Physician Radiation Oncology 08/27/20 Christina Amaro, LILI [address] [place] [address] Specialty Jacquard Loom Weaver Hematology/Oncology 09/13/20 Anca Huddleston MD [address] [place] [address] Hematology/Oncology 05/09/22 02/19/23 Early Childhood Lead Teacher Relationship Specialty Start Date End Date Fiona Durant MD [address] [place] [address] PCP - General 11/23/03 Rell Barcenas MD, [address] [place] [address] Physician Radiation Oncology 08/27/20 Christina Amaro RN [address] [place] [address] Specialty Jacquard Loom Weaver Hematology/Oncology 09/13/20 Sandoval Burgess MD [address] [place] [address] Hematology/Oncology 05/15/23 Early Childhood Lead Teacher Relationship Specialty Start Date End Date Fiona Durant MD [address] [place] [address] PCP - General 11/23/03 Rell Barcenas MD, [address] [place] [address] Physician Radiation Oncology 08/27/20 Christina Amaro, LILI [address] [place] [address] Specialty Jacquard Loom Weaver Hematology/Oncology 09/13/20 Sandoval Burgess MD [address] [place] [address] Hematology/Oncology 05/15/23 Early Childhood Lead Teacher Relationship Specialty Start Date End Date Fiona Durant MD [address] [place] [address] PCP - General 11/23/03 Rell Barcenas MD, [address] [place] [address] Physician Radiation Oncology 08/27/20 Christina Amaro, RN [address] [place] [address] Specialty Jacquard Loom Weaver Hematology/Oncology 09/13/20 Sandoval Burgess MD [address] [place] [address] Hematology/Oncology 05/15/23 Early Childhood Lead Teacher Relationship Specialty Start Date End Date Finoa Durant MD [address] [place] [address] PCP - General 11/23/03 Rell Barcenas MD, [address] [place] [address] Physician Radiation Oncology 08/27/20 Christina Amaro, LILI [address] [place] [address] Specialty Jacquard Loom Weaver Hematology/Oncology 09/13/20 Sandoval Burgess MD [address] [place] [address] Hematology/Oncology 05/15/23 Early Childhood Lead Teacher Relationship Specialty Start Date End Date Fiona Durant MD [address] [place] [address] PCP - General 11/23/03 Rell Barcenas MD [address] [place] [address] Physician Radiation Oncology 08/27/20 Christina Amaro, LILI [address] [place] [address] Specialty Jacquard Loom Weaver Hematology/Oncology 09/13/20 Sandoval Burgess MD [address] [place] [address] Hematology/Oncology 05/15/23 Early Childhood Lead Teacher Relationship Specialty Start Date End Date Fiona Durant MD [address] [place] [address] PCP - General 11/23/03 Rell Barcenas MD [address] [place] [address] Physician Radiation Oncology 08/27/20 Christina Amaro RN [address] [place] [address] Specialty Jacquard Loom Weaver Hematology/Oncology 09/13/20 Sandoval Burgess MD [address] [place] [address] Hematology/Oncology 05/15/23 Early Childhood Lead Teacher Relationship Specialty Start Date End Date Fiona Durant MD [address] [place] [address] PCP - General 11/23/03 Rell Barcenas MD [address] [place] [address] Physician Radiation Oncology 08/27/20 Christina Amaro RN [address] [place] [address] Specialty Jacquard Loom Weaver Hematology/Oncology 09/13/20 Sandoval Burgess MD [address] [place] [address] Hematology/Oncology 05/15/23 Early Childhood Lead Teacher Relationship Specialty Start Date End Date Fiona Durant MD [address] [place] [address] PCP - General 11/23/03 Rell Barcenas MD [address] [place] [address] Physician Radiation Oncology 08/27/20 Christina Amaro RN [address] [place] [address] Specialty Jacquard Loom Weaver Hematology/Oncology 09/13/20 Sandoval Burgess MD [address] [place] [address] Hematology/Oncology 05/15/23 Early Childhood Lead Teacher Relationship Specialty Start Date End Date Fiona Durant MD [address] [place] [address] PCP - General 11/23/03 Rell Barcenas MD [address] [place] [address] Physician Radiation Oncology 08/27/20 Christina Amaro, LILI [address] [place] [address] Specialty Jacquard Loom Weaver Hematology/Oncology 09/13/20 Sandoval Burgess MD [address] [place] [address] Hematology/Oncology 05/15/23 Early Childhood Lead Teacher Relationship Specialty Start Date End Date Fiona Durant MD [address] [place] [address] PCP - General 11/23/03 Rell Barcenas MD [address] [place] [address] Physician Radiation Oncology 08/27/20 Christina Amaro, LILI [address] [place] [address] Specialty Jacquard Loom Weaver Hematology/Oncology 09/13/20 Sandoval Burgess MD [address] [place] [address] Hematology/Oncology 05/15/23 Early Childhood Lead Teacher Relationship Specialty Start Date End Date Fiona Durant MD [address] [place] [address] PCP - General 11/23/03 Rell Barcenas MD [address] [place] [address] Physician Radiation Oncology 08/27/20 Christina Amaro, LILI [address] [place] [address] Specialty Jacquard Loom Weaver Hematology/Oncology 09/13/20 Sandoval Burgess MD [address] [place] [address] Hematology/Oncology 05/15/23 Early Childhood Lead Teacher Relationship Specialty Start Date End Date Fiona Durant MD [address] [place] [address] PCP - General 11/23/03 Rell Barcenas MD [address] [place] [address] Physician Radiation Oncology 08/27/20 Christina Amaro, LILI [address] [place] [address] Specialty Jacquard Loom Weaver Hematology/Oncology 09/13/20 Sandoval Burgess MD [address] [place] [address] Hematology/Oncology 05/15/23 Early Childhood Lead Teacher Relationship Specialty Start Date End Date Fiona Durant MD [address] [place] [address] PCP - General 11/23/03 Rell Barcenas MD [address] [place] [address] Physician Radiation Oncology 08/27/20 Christina Amaro, ILLI [address] [place] [address] Specialty Jacquard Loom Weaver Hematology/Oncology 09/13/20 Sandoval Burgess MD [address] [place] [address] Hematology/Oncology 05/15/23 Early Childhood Lead Teacher Relationship Specialty Start Date End Date Fiona Durant MD [address] [place] [address] PCP - General 11/23/03 Rell Barcenas MD [address] [place] [address] Physician Radiation Oncology 08/27/20 Christina Amaro RN [address] [place] [address] Specialty Jacquard Loom Weaver Hematology/Oncology 09/13/20 Sandoval Burgess MD [address] [place] [address] Hematology/Oncology 05/15/23 Early Childhood Lead Teacher Relationship Specialty Start Date End Date Fiona Durant MD [address] [place] [address] PCP - General 11/23/03 Rell Barcenas MD [address] [place] [address] Physician Radiation Oncology 08/27/20 Christina Amaro RN [address] [place] [address] Specialty Jacquard Loom Weaver Hematology/Oncology 09/13/20 Sandoval Burgess MD [address] [place] [address] Hematology/Oncology 05/15/23 Early Childhood Lead Teacher Relationship Specialty Start Date End Date Fiona Durant MD [address] [place] [address] PCP - General 11/23/03 Rell Barcenas MD [address] [place] [address] Physician Radiation Oncology 08/27/20 Christina Amaro, LILI [address] [place] [address] Specialty Jacquard Loom Weaver Hematology/Oncology 09/13/20 Sandoval Burgess MD [address] [place] [address] Hematology/Oncology 05/15/23 Early Childhood Lead Teacher Relationship Specialty Start Date End Date Fiona Durant MD [address] [place] [address] PCP - General 11/23/03 Rell Barcenas MD [address] [place] [address] Physician Radiation Oncology 08/27/20 Christina Amaro, LILI [address] [place] [address] Specialty Jacquard Loom Weaver Hematology/Oncology 09/13/20 Sandoval Burgess MD [address] [place] [address] Hematology/Oncology 05/15/23 Early Childhood Lead Teacher Relationship Specialty Start Date End Date Fiona Durant MD [address] [place] [address] PCP - General 11/23/03 Rell Barcenas MD [address] [place] [address] Physician Radiation Oncology 08/27/20 Christina Amaro RN [address] [place] [address] Specialty Jacquard Loom Weaver Hematology/Oncology 09/13/20 Sandoval Burgess MD [address] [place] [address] Hematology/Oncology 05/15/23 Early Childhood Lead Teacher Relationship Specialty Start Date End Date Fiona Durant MD [address] [place] [address] PCP - General 11/23/03 Rell Barcenas MD [address] [place] [address] Physician Radiation Oncology 08/27/20 Christina Amaro RN [address] [place] [address] Specialty Jacquard Loom Weaver Hematology/Oncology 09/13/20 Sandoval Burgess MD [address] [place] [address] Hematology/Oncology 05/15/23 Early Childhood Lead Teacher Relationship Specialty Start Date End Date Fiona Durant MD [address] [place] [address] PCP - General 11/23/03 Rell Barcenas MD [address] [place] [address] Physician Radiation Oncology 08/27/20 Christina Amaro RN [address] [place] [address] Specialty Jacquard Loom Weaver Hematology/Oncology 09/13/20 Sandoval Burgess MD [address] [place] [address] Hematology/Oncology 05/15/23 Early Childhood Lead Teacher Relationship Specialty Start Date End Date Fiona Durant MD [address] [place] [address] PCP - General 11/23/03 Rell Barcenas MD [address] [place] [address] Physician Radiation Oncology 08/27/20 Christina Amaro RN [address] [place] [address] Specialty Jacquard Loom Weaver Hematology/Oncology 09/13/20 Sandoval Burgess MD [address] [place] [address] Hematology/Oncology 05/15/23 Early Childhood Lead Teacher Relationship Specialty Start Date End Date Fiona Durant MD [address] [place] [address] PCP - General 11/23/03 Rell Barcenas MD [address] [place] [address] Physician Radiation Oncology 08/27/20 Christina Amaro, LILI [address] [place] [address] Specialty Jacquard Loom Weaver Hematology/Oncology 09/13/20 Sandoval Burgess MD [address] [place] [address] Hematology/Oncology 05/15/23 Early Childhood Lead Teacher Relationship Specialty Start Date End Date Fiona Durant MD [address] [place] [address] PCP - General 11/23/03 Rell Barcenas MD [address] [place] [address] Physician Radiation Oncology 08/27/20 Christina Amaro, LILI [address] [place] [address] Specialty Jacquard Loom Weaver Hematology/Oncology 09/13/20 Sandoval Burgess MD [address] [place] [address] Hematology/Oncology 05/15/23 Early Childhood Lead Teacher Relationship Specialty Start Date End Date Fiona Durant MD [address] [place] [address] PCP - General 11/23/03 Rell Barcenas MD [address] [place] [address] Physician Radiation Oncology 08/27/20 Christina Amaro, LILI [address] [place] [address] Specialty Jacquard Loom Weaver Hematology/Oncology 09/13/20 Sandoval Burgess MD [address] [place] [address] Hematology/Oncology 05/15/23 Early Childhood Lead Teacher Relationship Specialty Start Date End Date Fiona Durant MD [address] [facility] [address] PCP - General 11/23/03 Rell Barcenas MD [address] [place] [address] Physician Radiation Oncology 08/27/20 Christina Amaro, LILI [address] [place] [address] Specialty Jacquard Loom Weaver Hematology/Oncology 09/13/20 Sandoval Burgess MD [address] [place] [address] Hematology/Oncology 05/15/23 Bebe Flores, SOLUTIONS DEVELOPMENT ANALYST.CAMP RECREATION SPECIALIST [address] [facility] [address] Supervisor Boarding Internal Medicine 09/15/24 Peggy Garcia SOLUTIONS DEVELOPMENT ANALYST.ENERGY EFFICIENT SITE MANAGER [address] [facility] [place] [address] Supervisor Boarding Internal Medicine 09/15/24 Early Childhood Lead Teacher Relationship Specialty Start Date End Date Fiona Durant MD [address] [place] [address] PCP - General 11/23/03 Rell Barcenas MD [address] [place] [address] Physician Radiation Oncology 08/27/20 Christina Amaro, LILI [address] [place] [address] Specialty Jacquard Loom Weaver Hematology/Oncology 09/13/20 Sandoval Burgess MD [address] [place] [address] Hematology/Oncology 05/15/23 Bebe Flores, SOLUTIONS DEVELOPMENT ANALYST.CAMP RECREATION SPECIALIST [address] [facility] [address] Supervisor Boarding Internal Medicine 09/15/24 Peggy Garcia APRN.ENERGY EFFICIENT SITE MANAGER [address] [facility] [place] [address] [facility] Internal Medicine 09/15/24 Early Childhood Lead Teacher Relationship Specialty Start Date End Date Fiona Durant MD [address] [facility] [address] PCP - General 11/23/03 Rell Barcenas MD [address] [place] [address] Physician Radiation Oncology 08/27/20 Christina Amaro, RN [address] [place] [address] Specialty Jacquard Loom Weaver Hematology/Oncology 09/13/20 Sandoval Burgess MD [address] [place] [address] Hematology/Oncology 05/15/23 Bebe Flores, SOLUTIONS DEVELOPMENT ANALYST.CAMP RECREATION SPECIALIST [address] [facility] [address] Supervisor Boarding Internal Medicine 09/15/24 Peggy Garcia, SOLUTIONS DEVELOPMENT ANALYST.ENERGY EFFICIENT SITE MANAGER [address] [facility] [place] [address] Supervisor Boarding Internal Medicine 09/15/24 Early Childhood Lead Teacher Relationship Specialty Start Date End Date Fiona Durant MD [address] [facility] [address] PCP - General 11/23/03 Rell Barcenas MD [address] [place] [address] Physician Radiation Oncology 08/27/20 Christina Amaro, RN [address] [place] [address] Specialty Jacquard Loom Weaver Hematology/Oncology 09/13/20 Sandoval Burgess MD [address] [place] [address] Hematology/Oncology 05/15/23 Bebe Flores APRN.CAMP RECREATION SPECIALIST [address] [facility] [address] Supervisor Boarding Internal Medicine 09/15/24 Peggy Garcia SOLUTIONS DEVELOPMENT ANALYST.ENERGY EFFICIENT SITE MANAGER [address] [facility] [place] [address] Supervisor Boarding Internal Medicine 09/15/24 Early Childhood Lead Teacher Relationship Specialty Start Date End Date Fiona Durant MD [address] [facility] [address] PCP - General 11/23/03 Rell Barcenas MD [address] [place] [address] Physician Radiation Oncology 08/27/20 Christina Amaro, LILI [address] [place] [address] Specialty Jacquard Loom Weaver Hematology/Oncology 09/13/20 Sandoval Burgess MD [address] [place] [address] Hematology/Oncology 05/15/23 Bebe Flores, SOLUTIONS DEVELOPMENT ANALYST.CAMP RECREATION SPECIALIST [address] [facility] [address] [facility] Internal Medicine 09/15/24 Peggy Garcia SOLUTIONS DEVELOPMENT ANALYST.ENERGY EFFICIENT SITE MANAGER [address] [facility] [place] [address] [facility] Internal Medicine 09/15/24 Early Childhood Lead Teacher Relationship Specialty Start Date End Date Fiona Durant MD [address] [facility] [address] PCP - General 11/23/03 Rell Barcenas MD [address] [place] [address] Physician Radiation Oncology 08/27/20 Christina Amaro, LILI [address] [place] [address] Specialty Jacquard Loom Weaver Hematology/Oncology 09/13/20 Sandoval Burgess MD [address] [place] [address] Hematology/Oncology 05/15/23 Bebe Flores, SOLUTIONS DEVELOPMENT ANALYST.CAMP RECREATION SPECIALIST [address] [facility] [address] Supervisor Boarding Internal Medicine 09/15/24 Peggy Garcia APRN.CNP [address] [facility] [place] [address] Supervisor Boarding Internal Medicine 09/15/24 Early Childhood Lead Teacher Relationship Specialty Start Date End Date Fiona Durant MD [address] [facility] [address] PCP - General 11/23/03 Rell Barcenas MD [address] [place] [address] Physician Radiation Oncology 08/27/20 Christina Amaro RN [address] [place] [address] Specialty Jacquard Loom Weaver Hematology/Oncology 09/13/20 Sandoval Burgess MD [address] [place] [address] Hematology/Oncology 05/15/23 Early Childhood Lead Teacher Relationship Specialty Start Date End Date Fiona Durant MD [address] [facility] [address] PCP - General 11/23/03 Rell Barcenas MD [address] [place] [address] Physician Radiation Oncology 08/27/20 Christina Amaro RN [address] [place] [address] Specialty Jacquard Loom Weaver Hematology/Oncology 09/13/20 Sandoval Burgess MD [address] [place] [address] Hematology/Oncology 05/15/23 Bebe Flores, SOLUTIONS DEVELOPMENT ANALYST.CAMP RECREATION SPECIALIST [address] [place] [address] Supervisor Boarding Internal Medicine 09/15/24 Peggy Garcia SOLUTIONS DEVELOPMENT ANALYST.ENERGY EFFICIENT SITE MANAGER [address] [facility] [place] [address] Supervisor Boarding Internal Medicine 09/15/24 Early Childhood Lead Teacher Relationship Specialty Start Date End Date Fiona Durant MD [address] [place] [address] PCP - General 11/23/03 Rell Barcenas MD [address] [place] [address] Physician Radiation Oncology 08/27/20 Christina Amaro, RN [address] [place] [address] Specialty Jacquard Loom Weaver Hematology/Oncology 09/13/20 Sandoval Burgess MD [address] [place] [address] Hematology/Oncology 05/15/23 Bebe Flores SOLUTIONS DEVELOPMENT ANALYST.CAMP RECREATION SPECIALIST [address] [place] [address] Supervisor Boarding Internal Medicine 09/15/24 Peggy Garcia SOLUTIONS DEVELOPMENT ANALYST.ENERGY EFFICIENT SITE MANAGER [address] [facility] [place] [address] Supervisor Boarding Internal Medicine 09/15/24 Early Childhood Lead Teacher Relationship Specialty Start Date End Date Fiona Durant MD [address] [facility] [address] PCP - General 11/23/03 Rell Barcenas MD [address] [place] [address] Physician Radiation Oncology 08/27/20 Christina Amaro, LILI [address] [place] [address] Specialty Jacquard Loom Weaver Hematology/Oncology 09/13/20 Sandoval Burgess MD [address] [place] [address] Hematology/Oncology 05/15/23 Bebe Flores, SOLUTIONS DEVELOPMENT ANALYST.CAMP RECREATION SPECIALIST [address] [facility] [address] Supervisor Boarding Internal Medicine 09/15/24 Peggy Garcia, SOLUTIONS DEVELOPMENT ANALYST.ENERGY EFFICIENT SITE MANAGER [address] [facility] [place] [address] Supervisor Boarding Internal Medicine 09/15/24 Early Childhood Lead Teacher Relationship Specialty Start Date End Date Fiona Durant MD [address] [place] [address] PCP - General 11/23/03 Rell Barcenas MD [address] [place] [address] Physician Radiation Oncology 08/27/20 Christina Amaro, LILI [address] [place] [address] Specialty Jacquard Loom Weaver Hematology/Oncology 09/13/20 Sandoval Burgess MD [address] [place] [address] Hematology/Oncology 05/15/23 Bebe Flores, SOLUTIONS DEVELOPMENT ANALYST.CAMP RECREATION SPECIALIST [address] [facility] [address] Supervisor Boarding Internal Medicine 09/15/24 Peggy Garcia APRN.ENERGY EFFICIENT SITE MANAGER [address] [facility] [place] [address] [facility] Internal Medicine 09/15/24 Early Childhood Lead Teacher Relationship Specialty Start Date End Date Fiona Durant MD [address] [place] [address] PCP - General 11/23/03 Rell Barcenas MD [address] [place] [address] Physician Radiation Oncology 08/27/20 Christina Amaro, RN [address] [place] [address] Specialty Jacquard Loom Weaver Hematology/Oncology 09/13/20 Sandoval Burgess MD [address] [place] [address] Hematology/Oncology 05/15/23 Bebe Flores, SOLUTIONS DEVELOPMENT ANALYST.CAMP RECREATION SPECIALIST [address] [facility] [address] Supervisor Boarding Internal Medicine 09/15/24 Radha, Peggy, SOLUTIONS DEVELOPMENT ANALYST.ENERGY EFFICIENT SITE MANAGER [address] [facility] [place] [address] Supervisor Boarding Internal Medicine 09/15/24 Early Childhood Lead Teacher Relationship Specialty Start Date End Date Fiona Durant MD [address] [facility] [address] PCP - General 11/23/03 Rell Barcenas MD [address] [place] [address] Physician Radiation Oncology 08/27/20 Christina Amaro, RN [address] [place] [address] Specialty Jacquard Loom Weaver Hematology/Oncology 09/13/20 Sandoval Burgess MD [address] [place] [address] Hematology/Oncology 05/15/23 Bebe Flores APRN.CAMP RECREATION SPECIALIST [address] [facility] [place] [address] Supervisor Boarding Internal Medicine 09/15/24 Peggy Garcia SOLUTIONS DEVELOPMENT ANALYST.ENERGY EFFICIENT SITE MANAGER [address] [facility] [place] [address] Supervisor Boarding Internal Medicine 09/15/24 Early Childhood Lead Teacher Relationship Specialty Start Date End Date Fiona Durant MD [address] [facility] [address] PCP - General 11/23/03 Rell Barcenas MD [address] [place] [address] Physician Radiation Oncology 08/27/20 Christina Amaro, LILI [address] [place] [address] Specialty Jacquard Loom Weaver Hematology/Oncology 09/13/20 Sandoval Burgess MD [address] [place] [address] Hematology/Oncology 05/15/23 Bebe Flores, SOLUTIONS DEVELOPMENT ANALYST.CAMP RECREATION SPECIALIST [address] [facility] [address] [facility] Internal Medicine 09/15/24 Peggy aGrcia SOLUTIONS DEVELOPMENT ANALYST.ENERGY EFFICIENT SITE MANAGER [address] [facility] [place] [address] [facility] Internal Medicine 09/15/24 Early Childhood Lead Teacher Relationship Specialty Start Date End Date Fiona Durant MD [address] [facility] [address] PCP - General 11/23/03 Rell Barcenas MD [address] [place] [address] Physician Radiation Oncology 08/27/20 Christina Amaro, LILI [address] [place] [address] Specialty Jacquard Loom Weaver Hematology/Oncology 09/13/20 Sandoval Burgess MD [address] [place] [address] Hematology/Oncology 05/15/23 Bebe Flores, SOLUTIONS DEVELOPMENT ANALYST.CAMP RECREATION SPECIALIST [address] [facility] [address] Supervisor Boarding Internal Medicine 09/15/24 Peggy Garcia SOLUTIONS DEVELOPMENT ANALYST.ENERGY EFFICIENT SITE MANAGER [address] [facility] [place] [address] Supervisor Boarding Internal Medicine 09/15/24 Early Childhood Lead Teacher Relationship Specialty Start Date End Date Fiona Durant MD [address] [place] [address] PCP - General 11/23/03 Rell Barcenas MD [address] [place] [address] Physician Radiation Oncology 08/27/20 Christina Amaro, LILI [address] [place] [address] Specialty Jacquard Loom Weaver Hematology/Oncology 09/13/20 Sandoval Burgess MD [address] [place] [address] Hematology/Oncology 05/15/23 Bebe Flores APRN.CAMP RECREATION SPECIALIST [address] [facility] [address] Supervisor Boarding Internal Medicine 09/15/24 Peggy Garcia SOLUTIONS DEVELOPMENT ANALYST.ENERGY EFFICIENT SITE MANAGER [address] [facility] [address] Supervisor Boarding Internal Medicine 09/15/24 Early Childhood Lead Teacher Relationship Specialty Start Date End Date Fiona Durant MD [address] [place] [address] PCP - General 11/23/03 Rell Barcenas MD [address] [place] [address] Physician Radiation Oncology 08/27/20 Christina Amaro, LILI [address] [place] [address] Specialty Jacquard Loom Weaver Hematology/Oncology 09/13/20 Sandoval Burgess MD [address] [place] [address] Hematology/Oncology 05/15/23 Bebe Flores SOLUTIONS DEVELOPMENT ANALYST.CAMP RECREATION SPECIALIST [address] [place] [address] Supervisor Boarding Internal Medicine 09/15/24 Peggy Garcia SOLUTIONS DEVELOPMENT ANALYST.ENERGY EFFICIENT SITE MANAGER [address] [place] [address] Supervisor Boarding Internal Medicine 09/15/24 Early Childhood Lead Teacher Relationship Specialty Start Date End Date Fiona Durant MD [address] [place] [address] PCP - General 11/23/03 Rell Barcenas MD [address] [place] [address] Physician Radiation Oncology 08/27/20 Christina Amaro, LILI [address] [place] [address] Specialty Jacquard Loom Weaver Hematology/Oncology 09/13/20 Sandoval Burgess MD [address] [place] [address] Hematology/Oncology 05/15/23 Bebe Flores, SOLUTIONS DEVELOPMENT ANALYST.CAMP RECREATION SPECIALIST [address] [place] [address] Supervisor Boarding Internal Medicine 09/15/24 Peggy Garcia APRN.ENERGY EFFICIENT SITE MANAGER [address] [place] [address] [facility] Internal Medicine 09/15/24 Early Childhood Lead Teacher Relationship Specialty Start Date End Date Fiona Durant MD [address] [place] [address] PCP - General 11/23/03 Rell Barcenas MD [address] [place] [address] Physician Radiation Oncology 08/27/20 Christina Amaro, LILI [address] [place] [address] Specialty Jacquard Loom Weaver Hematology/Oncology 09/13/20 Sandoval Burgess MD [address] [place] [address] Hematology/Oncology 05/15/23 Bebe Flores, SOLUTIONS DEVELOPMENT ANALYST.CAMP RECREATION SPECIALIST [address] [place] [address] [facility] Internal Medicine 09/15/24 Peggy Garcia APRN.ENERGY EFFICIENT SITE MANAGER [address] [place] [address] Supervisor Boarding Internal Medicine 09/15/24 12/26/24 Peggy Garcia APRN.ENERGY EFFICIENT SITE MANAGER [address] [place] [address] Supervisor Boarding Internal Medicine 12/30/24 Early Childhood Lead Teacher Relationship Specialty Start Date End Date Fiona Durant MD [address] [place] [address] PCP - General 11/23/03 Rell Barcenas MD [address] [place] [address] Physician Radiation Oncology 08/27/20 Christina Amaro, LILI [address] [place] [address] Specialty Jacquard Loom Weaver Hematology/Oncology 09/13/20 Sandoval Burgess MD [address] [place] [address] Hematology/Oncology 05/15/23 Bebe Flores, SOLUTIONS DEVELOPMENT ANALYST.CAMP RECREATION SPECIALIST [address] [place] [address] Supervisor Boarding Internal Medicine 09/15/24 Peggy Garcia, SOLUTIONS DEVELOPMENT ANALYST.ENERGY EFFICIENT SITE MANAGER [address] [place] [address] Supervisor Boarding Internal Medicine 12/30/24 Early Childhood Lead Teacher Relationship Specialty Start Date End Date Fiona Durant MD [address] [place] [address] PCP - General 11/23/03 Rell Barcenas MD [address] [place] [address] Physician Radiation Oncology 08/27/20 Christina Amaro, LILI [address] [place] [address] Specialty Jacquard Loom Weaver Hematology/Oncology 09/13/20 Sandoval Burgess MD [address] [place] [address] Hematology/Oncology 05/15/23 Bebe Flores, SOLUTIONS DEVELOPMENT ANALYST.CAMP RECREATION SPECIALIST [address] [place] [address] Supervisor Boarding Internal Medicine 09/15/24 Peggy Garcia, SOLUTIONS DEVELOPMENT ANALYST.ENERGY EFFICIENT SITE MANAGER [address] [place] [address] Supervisor Boarding Internal Medicine 12/30/24 Early Childhood Lead Teacher Relationship Specialty Start Date End Date Fiona Durant MD [address] [place] [address] PCP - General 11/23/03 Rell Barcenas MD [address] [place] [address] Physician Radiation Oncology 08/27/20 Christina Amaro, LILI [address] [place] [address] Specialty Jacquard Loom Weaver Hematology/Oncology 09/13/20 Sandoval Burgess MD [address] [place] [address] Hematology/Oncology 05/15/23 Bebe Flores, SOLUTIONS DEVELOPMENT ANALYST.CAMP RECREATION SPECIALIST [address] [place] [address] Supervisor Boarding Internal Medicine 09/15/24 Peggy Garcia APRN.ENERGY EFFICIENT SITE MANAGER [address] [place] [address] Supervisor Boarding Internal Medicine 09/15/24 12/26/24 Peggy Garcia SOLUTIONS DEVELOPMENT ANALYST.ENERGY EFFICIENT SITE MANAGER [address] [place] [address] Supervisor Boarding Internal Medicine 12/30/24 Early Childhood Lead Teacher Relationship Specialty Start Date End Date Fiona Durant MD [address] [place] [address] PCP - General 11/23/03 Rell Barcenas MD [address] [place] [address] Physician Radiation Oncology 08/27/20 Christina Amaro, LILI [address] [place] [address] Specialty Jacquard Loom Weaver Hematology/Oncology 09/13/20 Sandoval Burgess MD [address] [place] [address] Hematology/Oncology 05/15/23 Bebe Flores APRN.CAMP RECREATION SPECIALIST [address] [place] [address] Supervisor Boarding Internal Medicine 09/15/24 Peggy Garcia APRN.ENERGY EFFICIENT SITE MANAGER [address] [place] [address] Supervisor Boarding Internal Medicine 12/30/24 Early Childhood Lead Teacher Relationship Specialty Start Date End Date Fiona Durant MD [address] [place] [address] PCP - General 11/23/03 Rell Barcenas MD [address] [place] [address] Physician Radiation Oncology 08/27/20 Christina Amaro RN [address] [place] [address] Specialty Jacquard Loom Weaver Hematology/Oncology 09/13/20 Sandoval Burgess MD [address] [place] [address] Hematology/Oncology 05/15/23 Bebe Flores, SOLUTIONS DEVELOPMENT ANALYST.CAMP RECREATION SPECIALIST [address] [place] [address] Supervisor Boarding Internal Medicine 09/15/24 Peggy Garcia SOLUTIONS DEVELOPMENT ANALYST.ENERGY EFFICIENT SITE MANAGER [address] [place] [address] Supervisor Boarding Internal Medicine 12/30/24 Early Childhood Lead Teacher Relationship Specialty Start Date End Date Fiona Durant MD [address] [place] [address] PCP - General 11/23/03 Rell Barcenas MD [address] [place] [address] Physician Radiation Oncology 08/27/20 Christina Amaro RN [address] [place] [address] Specialty Jacquard Loom Weaver Hematology/Oncology 09/13/20 Sandoval Burgess MD [address] [place] [address] Hematology/Oncology 05/15/23 Bebe Flores APRN.CAMP RECREATION SPECIALIST [address] [place] [address] Supervisor Boarding Internal Medicine 09/15/24 Peggy Garcia SOLUTIONS DEVELOPMENT ANALYST.ENERGY EFFICIENT SITE MANAGER [address] [place] [address] Supervisor Boarding Internal Medicine 12/30/24 Early Childhood Lead Teacher Relationship Specialty Start Date End Date Fiona Durant MD [address] [place] [address] PCP - General 11/23/03 Rell Barcenas MD [address] [place] [address] Physician Radiation Oncology 08/27/20 Christina Amaro, RN [address] [place] [address] Specialty Jacquard Loom Weaver Hematology/Oncology 09/13/20 Sandoval Burgess MD [address] [place] [address] Hematology/Oncology 05/15/23 Peggy Garcia APRN.ENERGY EFFICIENT SITE MANAGER [address] [place] [address] Supervisor Boarding Internal Medicine 12/30/24 Bebe Flores SOLUTIONS DEVELOPMENT ANALYST.CAMP RECREATION SPECIALIST [address] [place] [address] Supervisor Boarding Internal Medicine 02/25/25 Early Childhood Lead Teacher Relationship Specialty Start Date End Date Fiona Durant MD [address] [place] [address] PCP - General 11/23/03 Rell Barcenas MD [address] [place] [address] Physician Radiation Oncology 08/27/20 Christina Amaro, LILI [address] [place] [address] Specialty Jacquard Loom Weaver Hematology/Oncology 09/13/20 Sandoval Burgess MD [address] [place] [address] Hematology/Oncology 05/15/23 Peggy Garcia, SOLUTIONS DEVELOPMENT ANALYST.ENERGY EFFICIENT SITE MANAGER [address] [place] [address] Supervisor Boarding Internal Medicine 12/30/24 Bebe Flores, SOLUTIONS DEVELOPMENT ANALYST.CAMP RECREATION SPECIALIST [address] [place] [address] Supervisor Boarding Internal Medicine 02/25/25 Early Childhood Lead Teacher Relationship Specialty Start Date End Date Fiona Durant MD [address] [place] [address] PCP - General 11/23/03 Rell Barcenas MD [address] [place] [address] Physician Radiation Oncology 08/27/20 Christina Amaro, LILI [address] [place] [address] Specialty Jacquard Loom Weaver Hematology/Oncology 09/13/20 Sandoval Burgess MD [address] [place] [address] Hematology/Oncology 05/15/23 Peggy Garcia SOLUTIONS DEVELOPMENT ANALYST.ENERGY EFFICIENT SITE MANAGER [address] [place] [address] Supervisor Boarding Internal Medicine 12/30/24 Bebe Flores APRN.CAMP RECREATION SPECIALIST [address] [place] [address] Supervisor Boarding Internal Medicine 02/25/25 Early Childhood Lead Teacher Relationship Specialty Start Date End Date Fiona Durant MD [address] [place] [address] PCP - General 11/23/03 Rell Barcenas MD [address] [place] [address] Physician Radiation Oncology 08/27/20 Christina Amaro RN [address] [place] [address] Specialty Jacquard Loom Weaver Hematology/Oncology 09/13/20 Sandoval Burgess MD [address] [place] [address] Hematology/Oncology 05/15/23 Peggy Garcia APRN.ENERGY EFFICIENT SITE MANAGER [address] [place] [address] Supervisor Boarding Internal Medicine 12/30/24 Bebe Flores, SOLUTIONS DEVELOPMENT ANALYST.CAMP RECREATION SPECIALIST [address] [place] [address] Supervisor Boarding Internal Medicine 02/25/25 Early Childhood Lead Teacher Relationship Specialty Start Date End Date Fiona Durant MD [address] [place] [address] PCP - General 11/23/03 Rell Barcenas MD [address] [place] [address] Physician Radiation Oncology 08/27/20 Christina Amaro, LLII [address] [place] [address] Specialty Jacquard Loom Weaver Hematology/Oncology 09/13/20 Sandoval Burgess MD [address] [place] [address] Hematology/Oncology 05/15/23 Peggy Garcia, SOLUTIONS DEVELOPMENT ANALYST.ENERGY EFFICIENT SITE MANAGER [address] [place] [address] Supervisor Boarding Internal Medicine 12/30/24 Bebe Flores, SOLUTIONS DEVELOPMENT ANALYST.CAMP RECREATION SPECIALIST [address] [place] [address] Supervisor Boarding Internal Medicine 02/25/25 Early Childhood Lead Teacher Relationship Specialty Start Date End Date Fiona Durant MD [address] [place] [address] PCP - General 11/23/03 Rell Barcenas MD [address] [place] [address] Physician Radiation Oncology 08/27/20 Christina mAaro RN [address] [place] [address] Specialty Jacquard Loom Weaver Hematology/Oncology 09/13/20 Sandoval Burgess MD [address] [place] [address] Hematology/Oncology 05/15/23 Peggy Garcia APRN.ENERGY EFFICIENT SITE MANAGER [address] [place] [address] Supervisor Boarding Internal Medicine 12/30/24 Bebe Flores APRN.CAMP RECREATION SPECIALIST [address] [place] [address] [facility] Internal Medicine 02/25/25 Early Childhood Lead Teacher Relationship Specialty Start Date End Date Fiona Durant MD [address] [place] [address] PCP - General 11/23/03 Rell Barcenas MD [address] [place] [address] Physician Radiation Oncology 08/27/20 Christina Amaro, LILI [address] [place] [address] Specialty Jacquard Loom Weaver Hematology/Oncology 09/13/20 Sandoval Burgess MD [address] [place] [address] Hematology/Oncology 05/15/23 Peggy Garcia APRN.ENERGY EFFICIENT SITE MANAGER [address] [place] [address] Supervisor Boarding Internal Medicine 12/30/24 Bebe Flores, SOLUTIONS DEVELOPMENT ANALYST.CAMP RECREATION SPECIALIST [address] [place] [address] Supervisor Boarding Internal Medicine 02/25/25 Early Childhood Lead Teacher Relationship Specialty Start Date End Date Fiona Durant MD [address] [place] [address] PCP - General 11/23/03 Rell Barcenas MD [address] [place] [address] Physician Radiation Oncology 08/27/20 Christina Amaro, LILI [address] [place] [address] Specialty Jacquard Loom Weaver Hematology/Oncology 09/13/20 Sandoval Burgess MD [address] [place] [address] Hematology/Oncology 05/15/23 Peggy Garcia, SOLUTIONS DEVELOPMENT ANALYST.ENERGY EFFICIENT SITE MANAGER [address] [place] [address] Supervisor Boarding Internal Medicine 12/30/24 Bebe Flores, SOLUTIONS DEVELOPMENT ANALYST.CAMP RECREATION SPECIALIST [address] [place] [address] Supervisor Boarding Internal Medicine 02/25/25 Early Childhood Lead Teacher Relationship Specialty Start Date End Date Fiona Durant MD [address] [place] [address] PCP - General 11/23/03 Rell Barcenas MD [address] [place] [address] Physician Radiation Oncology 08/27/20 Christina Amaro, LILI [address] [place] [address] Specialty Jacquard Loom Weaver Hematology/Oncology 09/13/20 Sandoval Burgess MD [address] [place] [address] Hematology/Oncology 05/15/23 Peggy Garcia, SOLUTIONS DEVELOPMENT ANALYST.ENERGY EFFICIENT SITE MANAGER [address] [place] [address] Supervisor Boarding Internal Medicine 12/30/24 Bebe Flores, SOLUTIONS DEVELOPMENT ANALYST.CAMP RECREATION SPECIALIST [address] [place] [address] Supervisor Boarding Internal Medicine 02/25/25 Early Childhood Lead Teacher Relationship Specialty Start Date End Date Fiona Durant MD [address] [place] [address] PCP - General 11/23/03 Rell Barcenas MD [address] [place] [address] Physician Radiation Oncology 08/27/20 Christina Amaro, LILI [address] [place] [address] Specialty Jacquard Loom Weaver Hematology/Oncology 09/13/20 Sandoval Burgess MD [address] [place] [address] Hematology/Oncology 05/15/23 Peggy Garcia SOLUTIONS DEVELOPMENT ANALYST.ENERGY EFFICIENT SITE MANAGER [address] [place] [address] Supervisor Boarding Internal Medicine 12/30/24 Bebe Flores SOLUTIONS DEVELOPMENT ANALYST.CAMP RECREATION SPECIALIST [address] [place] [address] Supervisor Boarding Internal Medicine 02/25/25 Early Childhood Lead Teacher Relationship Specialty Start Date End Date Fiona Durant MD [address] [place] [address] PCP - General 11/23/03 Rell Barcenas MD [address] [place] [address] Physician Radiation Oncology 08/27/20 Christina Amaro RN [address] [place] [address] Specialty Jacquard Loom Weaver Hematology/Oncology 09/13/20 Sandoval Burgess MD [address] [place] [address] Hematology/Oncology 05/15/23 Peggy Garcia SOLUTIONS DEVELOPMENT ANALYST.ENERGY EFFICIENT SITE MANAGER [address] [place] [address] Supervisor Boarding Internal Medicine 12/30/24 Bebe Flores, SOLUTIONS DEVELOPMENT ANALYST.CAMP RECREATION SPECIALIST [address] [place] [address] Supervisor Boarding Internal Medicine 02/25/25 Early Childhood Lead Teacher Relationship Specialty Start Date End Date Fiona Durant MD [address] [place] [address] PCP - General 11/23/03 Rell Barcenas MD [address] [place] [address] Physician Radiation Oncology 08/27/20 Christina Amaro RN [address] [place] [address] Specialty Jacquard Loom Weaver Hematology/Oncology 09/13/20 Sandoval Burgess MD [address] [place] [address] Hematology/Oncology 05/15/23 Peggy Garcia APRN.ENERGY EFFICIENT SITE MANAGER [address] [place] [address] Supervisor Boarding Internal Medicine 12/30/24 Bebe Flores APRN.CAMP RECREATION SPECIALIST [address] [place] [address] Supervisor Boarding Internal Medicine 02/25/25 Early Childhood Lead Teacher Relationship Specialty Start Date End Date Fiona Durant MD [address] [place] [address] PCP - General 11/23/03 Rell Barcenas MD [address] [place] [address] Physician Radiation Oncology 08/27/20 Christina Amaro RN [address] [place] [address] Specialty Jacquard Loom Weaver Hematology/Oncology 09/13/20 Sandoval Burgess MD [address] [place] [address] Hematology/Oncology 05/15/23 Peggy Garcia SOLUTIONS DEVELOPMENT ANALYST.ENERGY EFFICIENT SITE MANAGER [address] [place] [address] Supervisor Boarding Internal Medicine 12/30/24 Bebe Flores, SOLUTIONS DEVELOPMENT ANALYST.CAMP RECREATION SPECIALIST [address] [place] [address] Supervisor Boarding Internal Medicine 02/25/25 Early Childhood Lead Teacher Relationship Specialty Start Date End Date Fiona Durant MD [address] [place] [address] PCP - General 11/23/03 Rell Barcenas MD [address] [place] [address] Physician Radiation Oncology 08/27/20 Christina Amaro, RN [address] [place] [address] Specialty Jacquard Loom Weaver Hematology/Oncology 09/13/20 Sandoval Burgess MD [address] [place] [address] Hematology/Oncology 05/15/23 Peggy Garcia SOLUTIONS DEVELOPMENT ANALYST.ENERGY EFFICIENT SITE MANAGER [address] [place] [address] Supervisor Boarding Internal Medicine 12/30/24 Bebe Flores, SOLUTIONS DEVELOPMENT ANALYST.CAMP RECREATION SPECIALIST [address] [place] [address] Supervisor Boarding Internal Medicine 02/25/25 Early Childhood Lead Teacher Relationship Specialty Start Date End Date Fiona Durant MD [address] [place] [address] PCP - General 11/23/03 Rell Barcenas MD [address] [place] [address] Physician Radiation Oncology 08/27/20 Christina Amaro, LILI [address] [place] [address] Specialty Jacquard Loom Weaver Hematology/Oncology 09/13/20 Sandoval Burgess MD [address] [place] [address] Hematology/Oncology 05/15/23 Peggy Garcia, SOLUTIONS DEVELOPMENT ANALYST.ENERGY EFFICIENT SITE MANAGER [address] [place] [address] Supervisor Boarding Internal Medicine 12/30/24 Bebe Flores, SOLUTIONS DEVELOPMENT ANALYST.CAMP RECREATION SPECIALIST [address] [place] [address] Supervisor Boarding Internal Medicine 02/25/25 Early Childhood Lead Teacher Relationship Specialty Start Date End Date Fiona Durant MD [address] [place] [address] PCP - General 11/23/03 Rell Barcenas MD [address] [place] [address] Physician Radiation Oncology 08/27/20 Christina Amaro, LILI [address] [place] [address] Specialty Jacquard Loom Weaver Hematology/Oncology 09/13/20 Sandoval Burgess MD [address] [place] [address] Hematology/Oncology 05/15/23 Peggy Garcia APRN.ENERGY EFFICIENT SITE MANAGER [address] [place] [address] Supervisor Boarding Internal Medicine 12/30/24 Bebe Flores APRN.CAMP RECREATION SPECIALIST [address] [place] [address] Supervisor Boarding Internal Medicine 02/25/25 Early Childhood Lead Teacher Relationship Specialty Start Date End Date Fiona Durant MD [address] [place] [address] PCP - General 11/23/03 Rell Barcenas MD [address] [place] [address] Physician Radiation Oncology 08/27/20 Christina Amaro RN [address] [place] [address] Specialty Jacquard Loom Weaver Hematology/Oncology 09/13/20 Sandoval Burgess MD [address] [place] [address] Hematology/Oncology 05/15/23 Peggy Garcia APRN.ENERGY EFFICIENT SITE MANAGER [address] [place] [address] Supervisor Boarding Internal Medicine 12/30/24 Bebe Flores, SOLUTIONS DEVELOPMENT ANALYST.CAMP RECREATION SPECIALIST [address] [place] [address] [facility] Internal Medicine 02/25/25 Team Status: Active Member Role/Relationship Status Dates Dr. Fiona Durant MD Primary Care Provider Active Team Status: Inactive Member Role/Relationship Status Dates Dr. Fiona Durant MD Primary Care Provider Active Start: January 29, 2025 End: January 29, 2025 Therese Griffiths PA, PA Attending Provider Active Start: January 29, 2025 End: January 29, 2025 Felicia Lorenzlogolga WATCH CRYSTAL MOLDER, WATCH CRYSTAL MOLDER-C Referring Provider Active Start: January 29, 2025 End: January 29, 2025 Team Status: Active Member Role/Relationship Status Dates Dr. Fiona Durant MD Primary Care Provider Active Start: April 27, 2025 Dr. Yaya Arndt DO Emergency Provider Activ e Start: April 27, 2025 Dr. Ilana Hassan MD Admit Provider Active Star t: April 27, 2025 Dr. Ilana Hassan MD Attending Provider Active Start: April 27, 2025 Dr. Ilana Hassan MD Other Provider Active Star t: April 27, 2025 Reason for Visit (unrecogniz ed section and content) Reason Comments Radiology NM Specialty Diagnoses / Procedures Referred By Contac t Referred To Contact MOLECULAR & FUNCTIONAL IMAGING Diagnoses Non-small cell lung cancer metastatic to bone (HCC) Procedures NM PET/CT SKULL-THIGH SUBSEQUENT PET IMAGING CT ATTENUATION SKULL [place] [address] [place] [address] Molecular & Functional Imaging [address] [place] [address] Referral ID Status Reason Start Date Expiration Date V isits Requested Visits Authorized [id number] Closed Auto-Generate d Referral 04/21/2024 06/20/2024 2 2 Reason Comments Chemotherapy Treatment Specialty Diagnoses / Procedures Referred By Contac t Referred To Contact Diagnoses Cancer of trachea, bronchus, and lung (HCC) Bone metastases (HCC) Procedures INJ PEMBROLIZUMAB Study Patient [id number] Arm A&B First Line Treatment Anca Huddleston MD [address] [place] [address] José Miguel [facility] [address] [place] [address] Referral ID Status Reason Start Date Expiration Date V isits Requested Visits Authorized [id number] Authorized 09/22/2020 10/07/2022 99 99 Reason Comments [...] CT ABDOMEN W/CONTRAST Anca Huddleston MD [address] [facility] [place] [address] Ct Imaging Referral ID Status Reason Start Date Expiration Date V isits Requested Visits Authorized [id number] Closed Auto-Generate d Referral 01/24/2022 03/25/2022 2 2 Reason Comments Established Patient Specialty Diagnoses / Procedures Referred By Contac t Referred To Contact CT IMAGING Diagnoses Malignant neoplasm of unspecified part of unspecified bronchus or lung (HCC) Malignant neoplasm of abdomen (HCC) Procedures CT ABDOMEN WO IVCON CT ABDOMEN W/O CONTRAST Anca Huddleston MD [address] [facility] [address] [place], [place] [address] [place] [facility] Referral ID Status Reason Start Date Expiration Date V isits Requested Visits Authorized [id number] Closed Auto-Generate d Referral 11/01/2021 12/31/2021 2 2 Reason Comments RECIST Measurement Reason Comments Follow Up Specialty Diagnoses / Procedures Referred By Contac t Referred To Contact Diagnoses Cancer of trachea, bronchus, and lung (HCC) Bone metastases (HCC) Procedures INJ PEMBROLIZUMAB Study Patient [id number] Arm A&B First Line Treatment Anca Huddleston MD [address] [place] [address] [facility] [address] [place] [address] Specialty Diagnoses / Procedures Referred By Contac t Referred To Contact CT IMAGING Diagnoses Malignant neoplasm of unspecified part of unspecified bronchus or lung (HCC) Procedures CT CHEST W IVCON DIAGNOSTIC COMPUTED TOMOGRAPHY THORAX W/CONTRAST Anca Huddleston MD [address] [place] [address] Ct Imaging Referral ID Status Reason Start Date Expiration Date V isits Requested Visits Authorized [id number] Closed Auto-Generate d Referral 04/19/2022 06/18/2022 1 1 Reason Comments Patient Update Specialty Diagnoses / Procedures Referred By Contac t Referred To Contact CT IMAGING Diagnoses Malignant neoplasm of unspecified part of unspecified bronchus or lung (HCC) Procedures CT ABDOMEN W IVCON CT ABDOMEN W/CONTRAST Anca Huddleston MD [address] [place] [address] Ct Imaging Referral ID Status Reason Start Date Expiration Date V isits Requested Visits Authorized [id number] Closed Auto-Generate d Referral 04/19/2022 06/18/2022 1 1 Reason Comments RECIST Measurement Reason Comments Refill Request Reason Onset Date Comments Refill Request 07/25/2022 Reason Comments AVS Reason Comments Orders Referral ID Status Reason Start Date Expiration Date V isits Requested Visits Authorized [id number] Pending Review 09/22/2020 10/07/2022 99 99 Referral ID Status Reason Start Date Expiration Date V isits Requested Visits Authorized [id number] Authorized 09/22/2020 11/07/2022 99 99 Specialty Diagnoses / Procedures [facility] Contact Diagnoses Non-small cell lung cancer metastatic to bone (HCC) Procedures INJ PEMBROLIZUMAB Anca Huddleston MD [address] [place] [address] [facility] [address] [place] [address] Referral ID Status Reason Start Date Expiration Date V isits Requested Visits Authorized [id number] Authorized 09/26/2022 10/05/2023 99 99 Reason Comments F/U 3 Month Reason Onset Date Comments Refill Request 11/29/2022 Reason Comments Established Patient Reason Comments Research Reason Comments Cough Productive cough x 2 weeks Reason Onset Date Comments Refill Request 01/23/2023 Reason Comments Follow Up Reason Comments Schedule Surgery Reason Comments Research RECIST;[id number] Reason Comments Results Low potassium Reason Comments Patient cancelled post op visit Reason Comments Spirometry Specialty Diagnoses / Procedures Referred By Contac t Referred To Contact [facility] Diagnoses Pulmonary emphysema, unspecified emphysema type (HCC) Procedures SPIROMETRY WITH DILATOR IF OBSTRUCTED BRNCDILAT RSPSE SPMTRY PRE&POST-BRNCDILAT Georgina Restrepo MD [address] [place] [address] [facility] [address] [place] [address] Referral ID Status Reason Start Date Expiration Date V isits Requested Visits Authorized [id number] Closed Auto-Generate d Referral 03/19/2023 04/17/2024 1 1 Reason Comments Insurance Authorization Reason Comments Results Thyroid ultrasound Specialty Diagnoses / Procedures Referred By Contac t Referred To Contact Diagnoses Non-small cell lung cancer metastatic to bone (HCC) Procedures INJ PEMBROLIZUMAB Anca Huddleston MD [address] [facility] [place] [address] José Miguel [facility] [address] [place] [address] Reason Comments Eye Problem Bilateral eye irrita tion, blurry vision x 1 week Reason Comments Research RECIST 1.1/[id number] Reason Comments Mouth Sores States thrush starte [...] (HCC) Procedures INJ PEMBROLIZUMAB Anca Huddleston MD [address] [place] [id number] José Miguel [facility] [address] [place] [address] Referral ID Status Reason Start Date Expiration Date V isits Requested Visits Authorized [id number] Authorized 10/05/2022 10/05/2023 17 17 Reason Comments Research RECIST 1.1 Abstract Reason Comments Radiology US Specialty Diagnoses / Procedures Referred By Contac t Referred To Contact US IMAGING Diagnoses Thyroid nodule Procedures US THYROID/PARATHYROID US SOFT TISSUE HEAD & NECK REAL TIME IMGE DOCM Telly Duncan, DO [address] [place] [address] [place] [address] Referral ID Status Reason Start Date Expiration Date V isits Requested Visits Authorized [id number] Closed Auto-Generate d Referral 02/20/2023 03/21/2024 1 1 Specialty Diagnoses / Procedures Referred By Contac t Referred To Contact CT IMAGING Diagnoses Cancer of lower lobe of right lung (HCC) Examination of participant in clinical trial Procedures CT CHEST W IVCON DIAGNOSTIC COMPUTED TOMOGRAPHY THORAX W/CONTRAST Carrie Preciado APRN.ENERGY EFFICIENT SITE MANAGER [address] [place] [address] [facility] [place] [facility] Referral ID Status Reason Start Date Expiration Date V isits Requested Visits Authorized [id number] Closed Auto-Generate d Referral 01/30/2023 03/31/2023 1 1 Specialty Diagnoses / Procedures Referred By Contac t Referred To Contact CT IMAGING Diagnoses Cancer of trachea, bronchus, and lung (HCC) Bone metastases Examination of participant in clinical trial Malignant neoplasm of unspecified part of unspecified bronchus or lung (HCC) Procedures CT CHEST WO IVCON DIAGNOSTIC COMPUTED TOMOGRAPHY THORAX W/O CNTRST Anca Huddleston MD [address] [place] [phone] [place] [address] Referral ID Status Reason Start Date Expiration Date V isits Requested Visits Authorized [id number] Closed Auto-Generate d Referral 10/22/2022 12/21/2022 1 1 Specialty Diagnoses / Procedures Referred By Contac t Referred To Contact CT IMAGING Diagnoses Malignant neoplasm of unspecified part of unspecified bronchus or lung (HCC) Procedures CT CHEST W IVCON DIAGNOSTIC COMPUTED TOMOGRAPHY THORAX W/CONTRAST Telly Duncan, [address] [place] [address] Ct Imaging [place] [address] Referral ID Status Reason Start Date Expiration Date V isits Requested Visits Authorized [id number] Closed Auto-Generate d Referral 04/28/2023 06/27/2023 2 2 Specialty Diagnoses / Procedures Referred By Contac t Referred To Contact CT IMAGING Diagnoses Malignant neoplasm of unspecified part of unspecified bronchus or lung (HCC) Procedures CT ABDOMEN W IVCON CT ABDOMEN W/CONTRAST Anca Huddleston MD [facility] [place] [address] Ct Imaging [place] [address] Referral ID Status Reason Start Date Expiration Date V isits Requested Visits Authorized [id number] Closed Auto-Generate d Referral 07/28/2022 09/26/2022 2 2 Specialty Diagnoses / Procedures Referred By Contac t Referred To Contact CT IMAGING Diagnoses 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, bronchus, and lung (HCC) Malignant neoplasm metastatic to bone (HCC) Examination of participant in clinical trial Procedures CT CHEST W IVCON DIAGNOSTIC COMPUTED TOMOGRAPHY THORAX W/[place] [address] [place] [address] [address] Imaging [place] [address] Referral ID Status Reason Start Date Expiration Date V isits Requested Visits Authorized [id number] Closed Auto-Generate d Referral 07/20/2023 09/18/2023 1 1 Reason Comments Results Reason Onset Date Comments Refill Request 09/03/2023 Reason Comments Patient Request Reason Comments Appointment Patient Update Specialty Diagnoses / Procedures Referred By Contac t Referred To Contact Radiology / RADIO PET CT [facility] Diagnoses PET Scan Procedures [place] [address] [place] [phone] [place] [address] [place] [address] Referral ID Status Reason Start Date Expiration Date V isits Requested Visits Authorized [id number] Ref Not Required 11/12/2023 02/10/2024 1 1 Referral ID Status Reason Start Date Expiration Date V isits Requested Visits Authorized [id number] Authorized 10/05/2022 10/07/2024 26 26 Reason Comments Research RECIST 1.1 [id number] Reason Comments Medication Question Reason Comments Recheck 3 month follow up Reason Comments Research RECIST Abstract Reason Comments Research RECIST 1.1 Referral ID Status Reason Start Date Expiration Date Visits Requested Visits Authorized [id number] Authorized Patient Cleared INN/SMCP Payor Auth Obtained 10/07/2024 26 26 Reason Onset Date Comments Refill Request 03/10/2024 Reason Onset Date Comments Refill Request 04/11/2024 Reason Comments Care Coordination Electric Wheelchair Reason Comments Research RECIST Reason Comments F/U 3 Month Reason Onset Date Comments Refill Request 07/08/2024 Reason Comments Established Patient Emphysema COPD Asthma Specialty Diagnoses / Procedures Referred By Contac t Referred To Contact MOLECULAR & FUNCTIONAL IMAGING Diagnoses Malignant neoplasm of unspecified part of unspecified bronchus or lung (HCC) Procedures NM PET/CT SKULL-THIGH SUBSEQUENT PET IMAGING CT ATTENUATION SKULL BASE [place] [address] [place] [address] Molecular & Functional Imaging [address] [place] [address] Referral ID Status Reason Start Date Expiration Date V isits Requested Visits Authorized [id number] Closed Auto-Generate d Referral 09/01/2024 10/31/2024 1 1 Reason Comments Jacquard Loom Weaver - Other Change in treat ment Reason Comments Appointment Lab apt Reason Comments Results potassium Reason Comments Cough Chest congestion, SO B, wheeze, headache, fever on and off, x 2 weeksHas COPD but has increased Ear Pain R ear pain bilat wor se x 2 weeks Reason Comments F/U 3 months F/U 3 Month Reason Comments Future Appointment Reason Comments Research RECIST [id number] Reason Comments Research CTD - Progression EA [id number] Reason Comments Jacquard Loom Weaver - Other Treatment Plann ing Reason Comments AVS 10/23 Specialty Diagnoses / Procedures Referred By Cat t Referred To Contact Diagnoses Non-small cell lung cancer metastatic to bone (HCC) Procedures CARBOPLATIN INJECTION PALONOSETRON HCL INJECTION, PEMETREXED, NOT OTHERWISE SPECIFIED, 10 MG FOS[place]REPITANT [place] [address] [place] [phone] José Miguel [facility] [address] [place] [address] Referral ID Status Reason Start Date Expiration Date V isits Requested Visits Authorized [id number] Pending Review 10/14/2024 01/12/2025 3 3 Reason Comments Care Coordination CYCLE 1/DAY 1 POST T REATMENT CALL Reason Comments Care Coordination Toxicity Check Reason Comments Care Coordination Follow up Symptoms Reason Comments Results (radiology) Reason Comments Radiology CT Specialty Diagnoses / Procedures [facility] To Contact Rad[facility] / RADIO CT SCAN [facility] WS Diagnoses Dyspnea and respiratory abnormalities [R06.00, R06.89] Procedures CTA WWO CHEST [address] [place] [address] [place] [address] Phone: tel: fax: Cat Scan [address] [place] [address] Phone: tel: fax: Referral ID Status Reason Start Date Expiration Date Visits Requested Visits Authorized [id number] Incomplete Patient Cleared - Admin/Chairm an/Director advise to proceed or did not respond 11/19/2024 02/17/2025 1 1 Reason Comments Care Coordination Follow Up Reason Comments Patient Update Dentist Reason Comments F/U 3 months Specialty Diagnoses / Procedures [facility] Referred To Contact Diagnoses Non-small cell lung cancer metastatic to bone (HCC) Procedures CARBOPLATIN INJECTION PALONOSETRON HCL INJECTION, PEMETREXED, NOT OTHERWISE SPECIFIED, 10 MG FOSAPREPITANT [place] [address] [place] [phone] Phone: tel: fax: Hematology/Oncology [address] [place] [address] Phone: tel: fax: Referral ID Status Reason Start Date Expiration Date Visits Requested Visits Authorized [id number] Authorized Patient Cleared - Admin/Chairm an/Director advise to proceed or did not respond 10/14/2024 10/07/2025 99 99 Specialty Diagnoses / Procedures Referred By Contac t Referred To Contact Diagnoses Non-small cell lung cancer metastatic to bone (HCC) Procedures CARBOPLATIN INJECTION PALONOSETRON HCL INJECTION, PEMETREXED, NOT OTHERWISE SPECIFIED, 10 MG FOSAPREPITANT INJECTION Sandoval Burgess MD [address] [place] [address] Phone: tel: Hematology/Oncology [address] [place] [address] Phone: tel: fax: Reason Comments avs 02/04 Specialty Diagnoses / Procedures Referred By Contac t Referred To Contact MOLECULAR & FUNCTIONAL IMAGING Diagnoses Non-small cell lung cancer metastatic to bone (HCC) Procedures NM PET/CT SKULL-THIGH SUBSEQUENT PET IMAGING CT ATTENUATION SKULL BASE MID-THIGH Sandoval Burgess MD [address] [place] [address] Phone: tel: Molecular Imaging [address] [place] [address] Phone: tel: Referral ID Status Reason Start Date Expiration Date V isits Requested Visits Authorized [id number] Closed Auto-Generate d Referral 02/25/2025 04/26/2025 2 [...] Bag/Syringe/Bottle 01/24/2024 2:03 PM EDT 400 mg Goals (unrecognized section and content) Goals may be documented in a n alternate section FOR RECORDS PERTAINING TO PATIENTS WHO ARE [...] BE BASED ON THE PRIMARY CLINICAL RECORDS. [employer] provides no warranty or guarantee of the accuracy or completeness of information in this document.
--- NOTE | 2025-04-27 23:23 | PCM.RX.CS ---
Consult Antibiotic Management Pharmacy has been consulted to manage selected antibiotic: Vancomycin Type of Intervention Type of Consult: New start Suspected Infection Suspected Infection: Sepsis and Pneumonia Labs Labs: Sodium 132 mmol/L (133-145) L 04/27/25 14:45 Potassium 2.6 mmol/L (3.3-5.1) L* 04/27/25 14:45 Chloride 89 mmol/L (98-108) L 04/27/25 14:45 Carbon Dioxide 24.7 mmol/L (21.0-32.0) 04/27/25 14:45 Anion Gap 18 (5-15) H 04/27/25 14:45 BUN 53 mg/dL (4-19) H 04/27/25 14:45 Creatinine 1.63 mg/dL (0.70-1.20) H 04/27/25 14:45 Est GFR (MDRD) Non-Af 35 (>60) L 04/27/25 14:45 BUN/Creatinine Ratio 32.3 RATIO (10-20) H 04/27/25 14:45 Glucose 139 mg/dL (70-99) H 04/27/25 14:45 Microbiology Microbiology: Microbiology 04/27/25 14:45 Mucosa - Nose SARS-CoV-2, Influenza & RSV (PCR) - Final Dosing Weight Weight used for dosin kg Estimated Creatinine Clearance Estimated Creatinine Clearance: 32.5 Goal Trough Goal Trough: 15-20 mcg/mL Pharmacy Plan for Drug Dosing Pharmacy Plan for Drug Dosing: Pharmacy Service will continue to monitor and adjust dosing as required. Follow-Up Labs Follow-Up Labs: Trough: Vancomycin Date/Time Labs Ordered Labs to be done on [date and time ordered]: 04/29/25 @1900
[2025-04-28] VITALS (23 sets, daily range): BP systolic 89–142; BP diastolic 46–77; PULSE 74–112; RESP 12–26; TEMP 36.5–37.1; O2SAT 93–100; BMI 34.6
[2025-04-28] MEDS: 0.9% Saline Lock 10 ML Syringe IV ×3 (00:09→14:43)
[2025-04-28] MEDS: 0.9% Normal Saline (1000mL) 1,000 ML 50 ML IV (00:09)
[2025-04-28 03:20] LABS: Hematocrit 32.9 % (37-47); Hemoglobin 10.9 g/dL (12.0-15.0); Immature Granulocytes Count 0.210 X10^3/uL (0.0-0.0); Mean Corp Hgb Conc 33.1 g/dL (32-36); Mean Corpuscular Volume 85.9 fL (81-99); Mean Platelet Vol. 10.9 fl (6.2-12.0); NRBC Flagged by Analyzer 0 % (0-5); POSITIVE DIFFERENTIAL YES; Platelet Count 105 K/mm3 (150-450); RBC Distribution Width CV 16.4 % (11.6-14.6); RBC Distribution Width SD 50.8 fl (35.1-43.9); Red Blood Count 3.83 M/mm3 (4.2-5.4); White Blood Count 18.1 K/mm3 (4.4-11.0)
[2025-04-28 04:44] LABS: AST(SGOT) 37 U/L (<=31); Alanine Aminotransfer ALT/SGPT 45 U/L (<=34); Albumin, Serum 2.9 g/dL (3.4-4.8); Alkaline Phosphatase 145 U/L (35-104); Anion Gap 13 (5-15); BUN 47 mg/dL (4-19); BUN/Creat Ratio 40.3 RATIO (10-20); Calcium,Total 9.8 mg/dL (7.6-11.0); Carbon Dioxide 21.4 mmol/L (21.0-32.0); Chloride 98 mmol/L (98-108); Estimated Creatinine Clearance 44.56 ml/min (50-250); Globulin 3.7 g/dL (2.2-4.2); Glucose 145 mg/dL (70-99); Potassium 3.5 mmol/L (3.3-5.1)
[2025-04-28] MEDS: Albuterol 2.5 MG/3 ML VIAL.NEB. INHALATION (06:00)
--- NOTE | 2025-04-28 06:46 | EX.PCM.CONCC ---
Assessment & Plan Assessment/Plan (1) Metastatic lung carcinoma: (2) Tobacco abuse: (3) Pneumonia: (4) Acute hypoxemic respiratory failure: PLAN: Plan RECOMMENDATIONS: 1. Okay to wean from BiPAP therapy as tolerated. 2. Continue empiric antimicrobials as ordered. Obtain and send sputum for culture. 3. Continue scheduled bronchodilators and IV steroids. 4. Obtain medical records from the office of Dr. Nguyen regarding the patient's oncology history. 5. The patient is to remain n.p.o., pending ability to be weaned from BiPAP. 6. Transfer to [facility] is pending. IMPRESSIONS: 1. Acute hypoxemic respiratory failure Most likely secondary to COPD with exacerbation related to pneumonia, complicated by extensive mediastinal adenopathy leading to airway compromise and encasement of pulmonary artery. The patient's oncology history is not entirely clear to me. She was apparently treated previously for lung cancer but was recently diagnosed with some form of recurrent cancer. She has been followed by Dr. Nguyen at [facility]. At this time, we will plan to continue the patient on BiPAP therapy, if needed, to maintain saturations at or above 90%. In addition, she will be maintained on empiric antibiotics along with scheduled bronchodilators and steroids. We will attempt to reach out to the patient's primary oncologist to obtain medical records and obtain any prior chest imaging that is available. The patient is currently on a wait list for transfer to [facility]. 2. History of stage IV lung cancer with mets to the bone Obtain outside oncology medical records regarding cancer history and treatment plan, including prior imaging of the chest. 3. Acute kidney injury Most likely prerenal in etiology. Creatinine has normalized with volume expansion. Continue to monitor urine output. No current indication for renal replacement therapy. 4. History of obstructive sleep apnea Continue BiPAP therapy, at a minimum, with naps and nightly. 5. Chronic tobacco dependency/history of coronary artery disease/GERD/hypertension Complicates care, management, recovery and prognosis. Smoking cessation is strongly advised. This note was generated with Aor[employer]ation software. It may contain incorrect words, spelling, and punctuation that were not noted in checking the note before signing. HPI Consult Data Date of Consult: 04/28/25 HPI Narrative Reason for Consultation: Respiratory failure HPI Narrative: The patient is a 64-year-old female, with a history as outlined below, who presented to the emergency department on April 27 with complaints of worsening dyspnea and cough. The patient has a known history of primary lung cancer of unclear stage and type, which was initially treated by Dr. Lopez, prior to his [facility]. The patient now reported that she was again recently diagnosed with another cancer, but is unclear if it represented a new lung cancer versus an alternative malignancy, for which she is being managed by Dr. Nguyen at [facility]. Nevertheless, there is some documentation in our medical record that the patient has a history of stage IV lung cancer with mets to the bone. Unfortunately, I do not have any of the patient's outside medical records, including her oncology history or prior chest imaging for comparison. The patient has a known history of COPD and is currently followed by Dr. Georgina Mcdonald at [facility]. She indicated that she does not use supplemental oxygen at her baseline. She does have a known history of obstructive sleep apnea and is prescribed nocturnal BiPAP therapy. Unfortunately, the patient does continue to smoke approximately 1 pack of cigarettes per day. On presentation to the emergency department, the patient was documented to be afebrile but had a presenting blood pressure of 70/40 mmHg. She was documented to be tachypneic and saturating 91% on room air. Laboratory evaluation revealed a white blood cell count of 21,000. Hemoglobin and platelet count were stable. Arterial blood gas was notable for a pH of 7.49 with a pCO2 of 35 and PO2 of 87. Chemistry profile was notable for a sodium of 132 with a potassium of 2.6, chloride of 89 and creatinine of 1.63. Lactate was elevated at 2.3. Troponin was elevated at 39 with a BNP of 1615. Urine analysis was unremarkable. CTA chest showed no evidence for pulmonary embolism, but did demonstrate significant mediastinal lymphadenopathy with encasement of the pulmonary artery and consolidation involving the right middle and lower lobe. There did appear to be a mass effect involving the right and left mainstem bronchus as well. Given the findings noted on CT imaging of the chest, a transfer to [facility] was initiated. However, there was no beds available. Therefore, the patient was admitted to our medical intensive care unit, where she was ultimately placed on BiPAP therapy, antibiotics, bronchodilators and steroids. This morning, the patient appears comfortable on BiPAP with an FiO2 requirement of 30%. She is alert and mentating appropriately. The patient did again confirm her wishes to remain full CODE STATUS. White blood cell count has improved to 18,000. Platelet count has dropped to 105,000. Creatinine has normalized at 1.16. [facility] Medical History (Updated 04/28/25 @ 09:[address] Jesus Mcdonald, DO) Hyperlipidemia Left ventricular hypertrophy Essential hypertension History of ST elevation myocardial infarction (STEMI) (10/09/19) Tobacco abuse Metastatic lung carcinoma Asthma Arteriosclerosis of coronary artery in patient with history of myocardial infarction COPD (chronic obstructive pulmonary disease) Home Medications ?Medication ?Instructions ?Recorded ?Last Taken ?Type albuterol sulfate 90 mcg/actuation 2 puff inhalation PRN PRN 03/04/14 02/17/15 18:30 History aerosol inhaler Shortness Of Breath 2 PUFF fluticasone propionate 50 2 spray intranasal DAILY PRN 07/05/20 Unknown History mcg/actuation nasal allergy symptoms spray,suspension (Flonase Allergy Relief) cyclobenzaprine 10 mg tablet 10 mg PO BID PRN pain 01/12/22 Unknown History rosuvastatin 40 mg tablet 40 mg PO DAILY 01/12/22 Unknown History aspirin 81 mg tablet,delayed 81 mg PO DAILY@0800 #90 tabs 01/12/23 04/26/25 Rx release hydrochlorothiazide 25 mg tablet 25 mg PO DAILY #90 tabs 05/08/24 04/26/25 Rx verapamil 120 mg 24 hr 120 mg PO DAILY #90 caps 05/08/24 04/26/25 Rx capsule,extended release albuterol sulfate 2.5 mg/3 mL 2.5 mg continuous nebulization Q6 01/29/25 Unknown History (0.083 %) solution for nebulization PRN wheezing benzonatate 100 mg capsule 200 mg PO TID PRN cough 01/29/25 Unknown History esomeprazole magnesium 20 mg 20 mg PO QAM 01/29/25 Unknown History capsule,delayed release fluticasone 500 mcg-salmeterol 50 1 ea inhalation BID 01/29/25 Unknown History mcg/dose blistr powdr for inhalation (Advair Diskus) folic acid 1 mg tablet 1 mg PO QDAY 01/29/25 Unknown History furosemide 20 mg tablet 20 - 40 mg PO QDAY PRN edema 01/29/25 Unknown History ibuprofen 800 mg tablet 800 mg PO Q8H PRN pain 01/29/25 Unknown History losartan 25 mg tablet 25 mg PO QDAY 01/29/25 Unknown History multivitamin with folic acid 400 1 tab PO QDAY 01/29/25 Unknown History mcg tablet (Daily-Nettie (with folic acid)) oxycodone-acetaminophen 10 mg-325 1 tab PO Q4 PRN pain 01/29/25 Unknown History mg tablet potassium chloride 20 mEq oral 20 meq PO BID 01/29/25 Unknown History packet sennosides 8.6 mg tablet (Natural 17.2 mg PO BID 01/29/25 Unknown History Senna Laxative) umeclidinium 62.5 mcg/actuation 1 inh inhalation QDAY 01/29/25 Unknown History blister powder for inhalation (Incruse Ellipta) celecoxib 100 mg capsule 100 mg PO Q24H 04/27/25 Unknown History levofloxacin 500 mg tablet 500 mg PO DAILY 04/27/25 04/26/25 History prednisone 10 mg tablet See Rx Instructions PO .COMPLEX 04/27/25 04/26/25 History prochlorperazine maleate 10 mg 10 mg PO Q6H PRN 04/27/25 Unknown History tablet Allergy/AdvReac Type Severity Reaction Status Date / Time Penicillins Allergy Intermediate Hives Verified 04/27/25 14:18 amoxicillin trihydrate (From Allergy Hives Verified 04/27/25 14:18 Augmentin) potassium clavulanate (From Allergy Hives Verified 04/27/25 14:18 Augmentin) Family History Brother Cancer lung Surgical History S/P trigger finger release History of coronary artery stent placement (10/09/19) History of cholecystectomy History of appendectomy History of carpal tunnel release of both wrists History of hysterectomy Social History (Updated 01/29/25 @ 14:12 by Nel Delgado) Smoking Status: Current every day smoker tobacco type: cigarettes quit status: quit date established alcohol intake: never substance use type: marijuana caffeine: No ROS ROS Narrative 10 systems were reviewed with pertinent positives as noted in the HPI above. Physical Exam Const alert and no apparent distress Constitutional Narrative: Resting comfortably on BiPAP at the present time. General Appearance: cooperative and ill appearing HEENT normocephalic and head/scalp atraumatic Eyes PERRL, EOMs intact bilaterally and conjunctivae normal Neck supple General: trachea midline Chest inspection of chest normal Resp Effort and Inspection: tachypneic Auscultation: wheezes and diminished lung sounds Cardio regular rate and regular rhythm GI normal to inspection, nondistended, normoactive bowel sounds Extremity no clubbing, cyanosis or edema Skin no rashes or lesions noted Neuro CN's II-XII intact bilaterally, moves all extremities and no focal motor deficits Psych Mood & Affect: flat affect Lab / Micro Data 04/28/25 03:10 04/28/25 03:10 Labs: Laboratory Results - last 24 hr 04/27/25 14:45: WBC 21.5 H, RBC 4.44, Hgb 12.5, Hct 37.4, MCV 84.2, MCH 28.2, MCHC 33.4, RDW Std Deviation 49.6 H, RDW Coeff of Keven 16.1 H, Plt Count 163, MPV 10.9, Immature Gran % (Auto) 1.800 H, Neut % (Auto) 88.0 H, Lymph % (Auto) 3.2 L, [place] % (Auto) 6.1, Eos % (Auto) 0.7, Baso % (Auto) 0.2, Absolute Neuts (auto) 18.9 H, Absolute Lymphs (auto) 0.69 L, Nucleated RBC % 0, PT Cancelled, INR Cancelled, APTT Cancelled, Sodium 132 L, Potassium 2.6 L*, Chloride 89 L, Carbon Dioxide 24.7, Anion Gap 18 H, BUN 53 H, Creatinine 1.63 H, Estim Creat Clear Calc 32.54 L, Est GFR (MDRD) Non-Af 35 L, BUN/Creatinine Ratio 32.3 H, Glucose 139 H, Lactic Acid 2.3 H*, Calcium 11.4 H, Magnesium 2.3 H, Total Bilirubin 0.89, AST 28, ALT 44 H, Alkaline Phosphatase 187 H, Troponin T High Sens 39 H, NT pro BNP II 1615 H, Total Protein 7.7, Albumin 3.5, Globulin 4.2, Albumin/Globulin Ratio 0.8 L 04/27/25 16:00: PT 16.6 H, INR 1.3, APTT 23.3 L 04/27/25 16:45: Troponin T Hi Sens 2 Hr 34 H 04/27/25 18:35: Urine Color Straw, Urine Clarity Clear, Urine pH 7.0, Ur Specific [place] 1.005, Urine Protein 30 H, Urine Glucose (UA) Normal, Urine Ketones Negative, Urine Occult Blood 10 H, Urine Nitrite Negative, Urine Bilirubin Negative, Urine Urobilinogen Normal, Ur Leukocyte Esterase Negative, Urine RBC 0-5 SEEN, Urine WBC 0-5 SEEN, Ur Squamous Epith Cells 0-5 SEEN, Urine Bacteria 0 SEEN, Urine Mucus 0 SEEN 04/27/25 18:45: Troponin T Hi Sens 4Hr 33 H 04/28/25 03:10: WBC 18.1 H, RBC 3.83 L, Hgb 10.9 L, Hct 32.9 L, MCV 85.9, MCH 28.5, MCHC 33.1, RDW Std Deviation 50.8 H, RDW Coeff of Keven 16.4 H, Plt Count 105 L, MPV 10.9, Immature Gran % (Auto) 1.200 H, Neut % (Auto) 94.9 H, Lymph % (Auto) 1.6 L, [place] % (Auto) 2.0, Eos % (Auto) 0.1, Baso % (Auto) 0.2, Absolute Neuts (auto) 17.2 H, Absolute Lymphs (auto) 0.29 L, Nucleated RBC % 0, Sodium 133, Potassium 3.5, Chloride 98, Carbon Dioxide 21.4, Anion Gap 13, BUN 47 H, Creatinine 1.16, Estim Creat Clear Calc 44.56 L, Est GFR (MDRD) Non-Af 53 L, BUN/Creatinine Ratio 40.3 H, Glucose 145 H, Calcium 9.8, Total Bilirubin 0.70, AST 37 H, ALT 45 H, Alkaline Phosphatase 145 H, Total Protein 6.6, Albumin 2.9 L, Globulin 3.7, Albumin/Globulin Ratio 0.8 L Micro: Microbiology 04/27/25 18:35 Urine Catheter - Baker Legionella Antigen - Final 04/27/25 18:35 Urine Catheter - Baker Streptococcus pneumoniae Antigen (M - Final 04/27/25 22:30 Mucosa - Nasopharyngeal Respiratory Panel (PCR) - Preliminary 04/27/25 14:45 Mucosa - Nose SARS-CoV-2, Influenza & RSV (PCR) - Final ABG Data ABG results: ABG 04/27/25 15:25 Specimen Type ART Sample Site L Radial pH 7.49 H Bicarbonate Actual 27.2 H Total CO2 28 Base Excess 4 H O2 Saturation 97 O2 % 2.0 ABG pCO2 35.3 ABG pO2 87 Arie Test Positive O2 Delivery Device Cannula Vent Mode Not entered Imaging Radiology Impression Chest CTA 04/27/25 15:41 IMPRESSION: 1. No pulmonary embolus. However, significant mediastinal lymphadenopathy is identified with the main pulmonary arteries being encased causing mass effect, greater on the right. This is concerning for neoplastic process. 2. Partial consolidation and ground-glass attenuation of the right lower lobe, likely pneumonia. Partial consolidation of the right middle lobe. Reading Location: [facility] Chest X-Ray 04/27/25 18:41 IMPRESSION: Right lower lobe pneumonia. Right upper lobe/hilar opacity may also reflect consolidation/neoplastic process. Reading Location: [id number] Charges/Coding Visit Charges Inpatient E&M: 17951 Init Hosp L3
--- NOTE | 2025-04-28 08:12 | PCM.RX.CS ---
Consult Antibiotic Management Pharmacy has been consulted to manage selected antibiotic: Vancomycin Type of Intervention Type of Consult: Follow-up Labs Labs: Sodium 133 mmol/L (133-145) 04/28/25 03:10 Potassium 3.5 mmol/L (3.3-5.1) 04/28/25 03:10 Chloride 98 mmol/L (98-108) 04/28/25 03:10 Carbon Dioxide 21.4 mmol/L (21.0-32.0) 04/28/25 03:10 Anion Gap 13 (5-15) 04/28/25 03:10 BUN 47 mg/dL (4-19) H 04/28/25 03:10 Creatinine 1.16 mg/dL (0.70-1.20) 04/28/25 03:10 Est GFR (MDRD) Non-Af 53 (>60) L 04/28/25 03:10 BUN/Creatinine Ratio 40.3 RATIO (10-20) H 04/28/25 03:10 Glucose 145 mg/dL (70-99) H 04/28/25 03:10 Microbiology Microbiology: Microbiology 04/28/25 05:25 Nasal Secretion MRSA (PCR) - Final 04/27/25 18:35 Urine Catheter - Baker Legionella Antigen - Final 04/27/25 18:35 Urine Catheter - Baker Streptococcus pneumoniae Antigen (M - Final 04/27/25 22:30 Mucosa - Nasopharyngeal Respiratory Panel (PCR) - Preliminary 04/27/25 14:45 Mucosa - Nose SARS-CoV-2, Influenza & RSV (PCR) - Final Goal Trough Goal Trough: 15-20 mcg/mL Pharmacy Plan for Drug Dosing Pharmacy Plan for Drug Dosing: DAILY ASSESSMENT Current Vancomycin Dose: 1000mg IV Q24h Number of Doses Received: 1 (2g dose in ED), no scheduled doses yet Current Renal Function: SCr 1.16/ CrCl 44 mL/min Renal Function Trend: significant improvement from yesterday Lab/Micro: pending Any Change in Vanc Plan: Patient now with improved renal function. Patient qualifies for vancomycin 500mg IV Q12hr. Will change patient over to this regimen at this time, and will start new vancomycin order 04/28/25 @0830 Pending Level: 04/29/25 @0800, prior to 4th total dose of vancomycin per protocol Pharmacy Service will continue to monitor and adjust dosing as required.
[2025-04-28] MEDS: Vancomycin HCl 500 MG in 0.9% Normal Saline (100mL Bag) 100 ML 100 MG IV (08:50)
[2025-04-28] MEDS: Pantoprazole Sodium 40 MG in 0.9% Normal Saline (100mL MB+) 100 ML 300 MG IV (08:50)
[2025-04-28] MEDS: Cefepime HCl 2 GM in 0.9% Normal Saline (100mL MB+) 100 ML IV (08:50)
--- NOTE | 2025-04-28 09:23 | CASEMGMT ---
Per ICU rounds & chart review, pt requires transfer to a tertiary facility. Insurance review for hospitals In-network with [facility] if transfer is recommended is as follows: [facility], [facility], [place], [facility], [facility], [facility], , [place], [facility], and [place].
[2025-04-28] MEDS: Lorazepam 2 MG/ML WCH Syringe 0.5 MG IV (11:34)
[2025-04-28 11:59] LABS: Allen Test Positive; Base Excess -3 mmol/L (-2 to +2); FI02 25.0; PEEP 8; PO2 76 mmHG (75-100); SITE L Radial; SO2 94 % (95-99)
--- NOTE | 2025-04-28 12:05 | NURSING ---
called [facility] transfer line to check on bed status and notify them of patient clinically worsening. Transfer line connected us to [facility] physician. Dr. Mcdonald spoke to this physician with update.
--- NOTE | 2025-04-28 12:55 | CPS ---
Attempted to place patient on AIRVO, but she did not tolerate it for more than 5 minutes
--- NOTE | 2025-04-28 12:56 | PN.HOSP_ITS ---
Subjective Subjective No issues overnight, maintaining on BiPAP. She does have a little bit anxiety. She is unclear as to her medical history but it looks like she has metastatic lung cancer unclear whether or not it is squamous or adenocarcinoma Objective Data Objective Data Vital Signs: Vital Signs Temp Pulse Resp BP Pulse Ox O2 Del Method O2 Flow Rate 98.6 F 104 H 26 H 142/66 H 95 Bi-pap 30 04/28/25 11:00 04/28/25 11:12 04/28/25 11:12 04/28/25 11:00 04/28/25 11:12 04/28/25 11:00 04/27/25 21:43 FiO2 25 04/28/25 11:12 Oxygen Flow Rate (L/min) 30 Oxygen Delivery Method Bi-pap Weight: 176 lb 5.917 oz Body Mass Index (BMI) 34.6 Intake & Output: Intake and Output for Last 24 Hours 04/27/25 04/28/25 04/29/25 03:59 03:59 03:59 Intake Total 2173.33 / 2173.33 1276.67 / 1276.67 Output Total 825 / 825 Balance 2173.33 / 2173.33 451.67 / 451.67 Lab / Micro Data 04/28/25 03:10 04/28/25 03:10 Labs: Laboratory Results - last 24 hr 04/27/25 14:45: WBC 21.5 H, RBC 4.44, Hgb 12.5, Hct 37.4, MCV 84.2, MCH 28.2, MCHC 33.4, RDW Std Deviation 49.6 H, RDW Coeff of Keven 16.1 H, Plt Count 163, MPV 10.9, Immature Gran % (Auto) 1.800 H, Neut % (Auto) 88.0 H, Lymph % (Auto) 3.2 L , [place] % (Auto) 6.1, Eos % (Auto) 0.7, Baso % (Auto) 0.2, Absolute Neuts (auto) 18.9 H, Absolute Lymphs (auto) 0.69 L, Nucleated RBC % 0, PT Cancelled, INR Cancelled, APTT Cancelled, Sodium 132 L, Potassium 2.6 L*, Chloride 89 L, Carbon Dioxide 24.7, Anion Gap 18 H, BUN 53 H, Creatinine 1.63 H, Estim Creat Clear Calc 32.54 L, Est GFR (MDRD) Non-Af 35 L, BUN/Creatinine Ratio 32.3 H, Glucose 139 H, Lactic Acid 2.3 H*, Calcium 11.4 H, Magnesium 2.3 H, Total Bilirubin 0.89, AST 28, ALT 44 H, Alkaline Phosphatase 187 H, Troponin T High Sens 39 H, N T pro BNP II 1615 H, Total Protein 7.7, Albumin 3.5, Globulin 4.2, A lbumin/Globulin Ratio 0.8 L 04/27/25 16:00: PT 16.6 H, INR 1.3, APTT 23.3 L 04/27/25 16:45: Troponin T Hi Sens 2 Hr 34 H 04/27/25 18:35: Urine Color Straw, Urine Clarity Clear, Urine pH 7.0, Ur Specific [place] 1.005, Urine Protein 30 H, Urine Glucose (UA) Normal, Urine Ketones Negative, Urine Occult Blood 10 H, Urine Nitrite Negative, Urine Bilirubin Negative, Urine Urobilinogen Normal, Ur Leukocyte Esterase Negative, Urine RBC 0-5 SEEN, Urine WBC 0-5 SEEN, Ur Squamous Epith Cells 0-5 SEEN, Urine Bacteria 0 SEEN, Urine Mucus 0 SEEN 04/27/25 18:45: Troponin T Hi Sens 4Hr 33 H 04/28/25 03:10: WBC 18.1 H, RBC 3.83 L, Hgb 10.9 L, Hct 32.9 L, MCV 85.9, MCH 28.5, MCHC 33.1, RDW Std Deviation 50.8 H, RDW Coeff of Keven 16.4 H, Plt Count 105 L, MPV 10.9, Immature Gran % (Auto) 1.200 H, Neut % (Auto) 94.9 H, Lymph % (Auto) 1.6 L, [place] % (Auto) 2.0, Eos % (Auto) 0.1, Baso % (Auto) 0.2, Absolute Neuts (auto) 17.2 H, Absolute Lymphs (auto) 0.29 L, Nucleated RBC % 0, Sodium 133, Potassium 3.5, Chloride 98, Carbon Dioxide 21.4, Anion Gap 13, BUN 47 H, Creatinine 1.16, Estim Creat Clear Calc 44.56 L, Est GFR (MDRD) Non-Af 53 L, B UN/Creatinine Ratio 40.3 H, Glucose 145 H, Calcium 9.8, Total Bilirubin 0.70, A ST 37 H, ALT 45 H, Alkaline Phosphatase 145 H, Total Protein 6.6, Albumin 2.9 L, Globulin 3.7, Albumin/Globulin Ratio 0.8 L Micro: Microbiology 04/27/25 22:30 Mucosa - Nasopharyngeal Respiratory Panel (PCR) - Final 04/28/25 05:25 Nasal Secretion MRSA (PCR) - Final 04/27/25 18:35 Urine Catheter - Baker Legionella Antigen - Final 04/27/25 18:35 Urine Catheter - Baker Streptococcus pneumoniae Antigen (M - Final 04/27/25 14:45 Mucosa - Nose SARS-CoV-2, Influenza & RSV (PCR) - Final ABG Data ABG results: ABG 04/27/25 04/28/25 15:25 11:55 Specimen Type ART ART Sample Site L Radial L Radial pH 7.49 H 7.33 L Bicarbonate Actual 27.2 H 23.0 Total CO2 28 24 Base Excess 4 H -3 L O2 Saturation 97 94 L O2 % 2.0 25.0 ABG pCO2 35.3 43.8 ABG pO2 87 76 Arie Test Positive Positive O2 Delivery Device Cannula BiPAP Vent Mode Not entered Not entered POC PEEP 8 Radiography Diagnostic Testing: Radiology Impression Chest CTA 04/27/25 15:41 IMPRESSION: 1. No pulmonary embolus. However, significant mediastinal lymphadenopathy is identified with the main pulmonary arteries being encased causing mass effect, greater on the right. This is concerning for neoplastic process. 2. Partial consolidation and ground-glass attenuation of the right lower lobe, likely pneumonia. Partial consolidation of the right middle lobe. Reading Location: [id number] Chest X-Ray 04/27/25 18:41 IMPRESSION: Right lower lobe pneumonia. Right upper lobe/hilar opacity may also reflect consolidation/neoplastic process. Reading Location: [facility] Physical Exam Narrative General: Alert, Oriented x3, Cooperative, moderate respiratory distress HEENT: Atraumatic, PERRLA, EOMI, Normocephalic Oral: Moist Mucosa Neck: Supple, No JVD Lungs: Diminished, Normal air movement, No rhonchi, wheeze, No rales, tachypneic, cannot speak in full sentences Cardiovascular: Tachycardic, Regular Rhythm, Normal S1, Normal S2, No murmurs Abdomen: Soft, Non Tender, Non-Distended, No Hepato-splenomegaly Extremities: No edema, Capillary Refill Less than 3 Seconds Skin: No rashes, No breakdown Musculoskeletal: No Tenderness to Palpation of Joints or Extremities Neurological: No focal neurological deficits, moves all extremities, sensation intact Psych/Mental Status: Flat Assessment & Plan Assessment/Plan (1) Sepsis: (2) Pneumonia: (3) Metastatic lung carcinoma: PLAN: Plan 1. Sepsis secondary to right lower lobe pneumonia, likely from post pneumonic obstruction from her metastatic lung cancer leading to acute hypoxic respiratory failure with acute on chronic COPD exacerbation/SABA ? Currently being seen by [facility] oncology unclear refutes of primary squamous or adenocarcinoma ? Continue with IV fluid ? Not requiring any pressors at this time ? Appreciate customer solutions architect assistance ? Continue with empiric antibiotics ? Continue with breathing treatments and steroids ? She is waiting transfer to [facility] given her sepsis and her respiratory status especially the significance of the CT scan with mass effect on pulmonary arteries ? SABA is resolved 2. Essential HTN/HLD/elevated troponins/CAD status post stent ? Troponin elevation is not significant and likely due to her recurrent transient hypotension ? Given her hypotension we will hold her home blood pressure medications ? Continue with her home statin 3. GERD ? Stable ? Continue PPI DVT: SCDs Charges/Coding Visit Charges Inpatient E&M: 78244 Subs Hosp L2
--- NOTE | 2025-04-28 17:17 | DS.PCM_ITS ---
Providers Date of Admission: 04/27/25 Primary Care Physician: Dr. Lulú Camacho MD Consultations 04/27/25 22:19 Consult: Security Systems Manager / Pulmonary Medicine Routine Consulting Provider: Intensivists/Pulmonary Med Reason for Consult: sepsis 2/2 RLL PNA, lung mass w/ mass effect on pulm artery EMERGENT Consult: No MD Notified: Yes Date Notified: 04/27/25 Time Notified: 21:14 Method of Notification: Verbal Reason For Visit: SEPSIS SECONDARY TO PNEUMONIA, LUNG MASS Diagnosis Discharge Diagnosis (1) Sepsis: Status: Acute Code(s): A41.9 - Sepsis, unspecified organism (2) Pneumonia: Status: Acute Code(s): J18.9 - Pneumonia, unspecified organism (3) Metastatic lung carcinoma: Status: Acute Code(s): C78.00 - Secondary malignant neoplasm of unspecified lung Medications at Discharge Home Medications albuterol sulfate 90 mcg/actuation aerosol inhaler 2 puff inhalation PRN PRN Shortness Of Breath 03/04/14 fluticasone propionate 50 mcg/actuation nasal spray,suspension (Flonase Allergy Relief) 2 spray intranasal DAILY PRN allergy symptoms 07/05/20 cyclobenzaprine 10 mg tablet 10 mg PO BID PRN pain 01/12/22 rosuvastatin 40 mg tablet 40 mg PO DAILY 01/12/22 aspirin 81 mg tablet,delayed release 81 mg PO DAILY@0800 #90 tabs 01/12/23 hydrochlorothiazide 25 mg tablet 25 mg PO DAILY #90 tabs 05/08/24 verapamil 120 mg 24 hr capsule,extended release 120 mg PO DAILY #90 caps 05/08/24 albuterol sulfate 2.5 mg/3 mL (0.083 %) solution for nebulization 2.5 mg continuous nebulization Q6 PRN wheezing 01/29/25 benzonatate 100 mg capsule 200 mg PO TID PRN cough 01/29/25 esomeprazole magnesium 20 mg capsule,delayed release 20 mg PO QAM 01/29/25 fluticasone 500 mcg-salmeterol 50 mcg/dose blistr powdr for inhalation (Advair Diskus) 1 ea inhalation BID 01/29/25 folic acid 1 mg tablet 1 mg PO QDAY 01/29/25 furosemide 20 mg tablet 20 - 40 mg PO QDAY PRN edema 01/29/25 ibuprofen 800 mg tablet 800 mg PO Q8H PRN pain 01/29/25 losartan 25 mg tablet 25 mg PO QDAY 01/29/25 multivitamin with folic acid 400 mcg tablet (Daily-Nettie (with folic acid)) 1 tab PO QDAY 01/29/25 oxycodone-acetaminophen 10 mg-325 mg tablet 1 tab PO Q4 PRN pain 01/29/25 potassium chloride 20 mEq oral packet 20 meq PO BID 01/29/25 sennosides 8.6 mg tablet (Natural Senna Laxative) 17.2 mg PO BID 01/29/25 umeclidinium 62.5 mcg/actuation blister powder for inhalation (Incruse Ellipta) 1 inh inhalation QDAY 01/29/25 celecoxib 100 mg capsule 100 mg PO Q24H 04/27/25 levofloxacin 500 mg tablet 500 mg PO DAILY 04/27/25 prednisone 10 mg tablet See Rx Instructions PO .COMPLEX 04/27/25 prochlorperazine maleate 10 mg tablet 10 mg PO Q6H PRN 04/27/25 Hospital Course Operations None Procedures None Summary of Care Provided Minutes Spent on Discharge: 36 Hospital Course: Per HPI: MAUREEN WHITLEY, is a 64-year-old female history of stage IV lung cancer with mets to the bone, COPD, coronary artery disease, hypertension, migraines presented [facility] ED 04/27/2025 due to shortness of breath and cough. Last chemotherapy 1.5 months ago with no radiation, no port. Noted for the past 3 weeks she has had increased shortness of breath and productive cough. On arrival temp 97.9, heart rate 96, BP 70/40, RR 38, and pulse ox 91% on RA. Repeat blood pressure was 94/56, respiratory rate 26 and 99% on 2 L nasal cannula. CBC with a white blood cell count of 21.5. BMP with a sodium of 132, potassium 2.6, bicarb 24.7, anion gap of 18 with a BUN of 53 and a creatinine of 1.63. Calcium of 11.4. Lactic acid 2.3. proBNP of 1615 and troponin of 39. CTA of chest with significant mediastinal lymphadenopathy with the main pulmonary arteries being encased causing mass effect greater on the right with concern for neoplastic process as well as partial consolidation and groundglass attenuation of the right lower lobe which is likely pneumonia and partial consolidation of right middle lobe. Patient given IV fluids and antibiotics and was placed on BiPAP due to increased work of breathing. Hospitalist contacted for admission. Reviewed imaging and discussed with pulmonology, patient still full code and wants to continue with aggressive management and given the mass effect on the pulmonary artery and possible mass causing collapse of lung it was advised that patient be transferred to [facility] if she did indeed want to continue to be aggressive in management in the event she would continue to deteriorate. Patient evaluated with son and other family members at bedside. She confirms that she has stage IV cancer and reportedly they recently found another cancer that is more aggressive and there is a plan to start new chemo when she was feeling better but has not yet started due to her increasing shortness of breath and cough. She denies any chest pain at home or fevers. Has a little bit of swelling in her feet which is new and son reports she had significant difficulty ambulating even short distances prior to coming in due to shortness of breath and she also has not been able to lay flat and has been sleeping sitting up so she has had very poor sleep. Discussed imaging findings and current status with patient and family members, again patient and family confirm that patient is full code and wants to continue to be aggressive with management. Given this discussed potential transfer and patient and family agreeable. Discussed that she may stabilize and not need to undergo any acute intervention or intervention may not be offered but given she wants to continue aggressive management in light of her CT findings and mass effect on pulmonary artery it would be reasonable to be at a higher level of care. Discussed with ED physician who called [facility], she spoke with Dr. Mgcuire in the MICU who said she will be put on the wait list and can be admitted to our hospital in the meantime and advised we call tomorrow with updates for further triaging purposes. Presently patient reports she is beginning to feel better, resting more comfortably on BiPAP and denies any lightheadedness or other new complaints Hospital Course: 1. Sepsis secondary to right lower lobe pneumonia, likely from post pneumonic obstruction from her metastatic lung cancer leading to acute hypoxic respiratory failure with acute on chronic COPD exacerbation/SABA ? Currently being seen by [facility] oncology unclear if she has a primary squamous cell or adenocarcinoma ? Continue with IV fluid ? Not requiring any pressors at this time ? Appreciate past due accounts clerk assistance ? Continue with empiric antibiotics ? Continue with breathing treatments and steroids ? [facility] was contacted for transfer given her sepsis and her respiratory status especially the significance of the CT scan with mass effect on pulmonary arteries. She was excepted this afternoon and transferred to a higher level of care ? SABA is resolved 2. Essential HTN/HLD/elevated troponins/CAD status post stent ? Troponin elevation is not significant and likely due to her recurrent transient hypotension ? Given her hypotension we will hold her home blood pressure medications ? Continue with her home statin 3. GERD ? Stable ? Continue PPI Weight / BMI Weight Weight: 176 lb 5.917 oz Body Mass Index (BMI) 34.6 ABG / Lab / Microbiology Data 04/28/25 03:10 04/28/25 03:10 Laboratory: Laboratory Results - last 24 hr 04/27/25 16:00: PT 16.6 H, INR 1.3, APTT 23.3 L 04/27/25 16:45: Troponin T Hi Sens 2 Hr 34 H 04/27/25 18:35: Urine Color Straw, Urine Clarity Clear, Urine pH 7.0, Ur Specific [place] 1.005, Urine Protein 30 H, Urine Glucose (UA) Normal, Urine Ketones Negative, Urine Occult Blood 10 H, Urine Nitrite Negative, Urine Bilirubin Negative, Urine Urobilinogen Normal, Ur Leukocyte Esterase Negative, Urine RBC 0-5 SEEN, Urine WBC 0-5 SEEN, Ur Squamous Epith Cells 0-5 SEEN, Urine Bacteria 0 SEEN, Urine Mucus 0 SEEN 04/27/25 18:45: Troponin T Hi Sens 4Hr 33 H 04/28/25 03:10: WBC 18.1 H, RBC 3.83 L, Hgb 10.9 L, Hct 32.9 L, MCV 85.9, MCH 28.5, MCHC 33.1, RDW Std Deviation 50.8 H, RDW Coeff of Keven 16.4 H, Plt Count 105 L, MPV 10.9, Immature Gran % (Auto) 1.200 H, Neut % (Auto) 94.9 H, Lymph % (Auto) 1.6 L, Preston % (Auto) 2.0, Eos % (Auto) 0.1, Baso % (Auto) 0.2, Absolute Neuts (auto) 17.2 H, Absolute Lymphs (auto) 0.29 L, Nucleated RBC % 0, Sodium 133, Potassium 3.5, Chloride 98, Carbon Dioxide 21.4, Anion Gap 13, BUN 47 H, Creatinine 1.16, Estim Creat Clear Calc 44.56 L, Est GFR (MDRD) Non-Af 53 L, B UN/Creatinine Ratio 40.3 H, Glucose 145 H, Calcium 9.8, Total Bilirubin 0.70, A ST 37 H, ALT 45 H, Alkaline Phosphatase 145 H, Total Protein 6.6, Albumin 2.9 L, Globulin 3.7, Albumin/Globulin Ratio 0.8 L Microbiology: Microbiology 04/27/25 22:30 Mucosa - Nasopharyngeal Respiratory Panel (PCR) - Final 04/28/25 05:25 Nasal Secretion MRSA (PCR) - Final 04/27/25 18:35 Urine Catheter - Baker Legionella Antigen - Final 04/27/25 18:35 Urine Catheter - Baker Streptococcus pneumoniae Antigen (M - Final 04/27/25 14:45 Mucosa - Nose SARS-CoV-2, Influenza & RSV (PCR) - Final ABG: ABG 04/28/25 11:55 Specimen Type ART Sample Site L Radial pH 7.33 L Bicarbonate Actual 23.0 Total CO2 24 Base Excess -3 L O2 Saturation 94 L O2 % 25.0 ABG pCO2 43.8 ABG pO2 76 Arie Test Positive O2 Delivery Device BiPAP Vent Mode Not entered POC PEEP 8 Radiography Diagnostic Testing: Radiology Impression Chest X-Ray 04/27/25 18:41 IMPRESSION: Right lower lobe pneumonia. Right upper lobe/hilar opacity may also reflect consolidation/neoplastic process. Reading Location: [id number] D/C Instructions DC O2, CPAP, BIPAP Needs Home O2 Discharge instructions: No Meaningful Use Info Meaningful Use Meaningful Use Diagnoses (Choose all that apply): None applicable Discharge Plan Admission Admit Date/Time: 04/27/25 21:05 Attending Provider: Kurtis Rodriguez Primary Care Provider: Lulú Camacho Consulting Providers: Isra Quick; Luis Bustamante; Sandeep Fry; Jesus Mcdonald; Carlos Cardoso; Ludwig Olivo; Andrea Lincoln; Jessica Marvin; Natanael Proctor; Juan Howard; Eladio Nolan; Avril Fagan; Gilda Fairbanks; Joycelyn Lundberg; Jonn Mejia; Gerry Roberts; Meng Sheridan; Cheikh Barnett; Baylee Pandey; Zackary Stack; Jerry Ramírez; Conrado Moreira; Rafy Campbell; Ilana Hassan Discharge Orders/Prescriptions Prescriptions: No Action fluticasone propionate [Flonase Allergy Relief] 50 mcg/actuation spray,suspension 2 spray INTRANASAL DAILY PRN (Reason: allergy symptoms) Rx Instructions: administer into each nostril cyclobenzaprine 10 mg tablet 10 mg PO BID PRN (Reason: pain) Patient Comments: TAKE 1/2 (ONE-HALF) TO 1 (ONE) TABLET BY MOUTH THREE TIMES DAILY NEEDED FOR MUSCLE SPASMS rosuvastatin 40 mg tablet 40 mg PO DAILY potassium chloride 20 mEq packet 20 meq PO BID Patient Comments: TAKE 1 PACKET BY MOUTH TWICE DAILY hydrochlorothiazide 25 mg tablet 25 mg PO DAILY Qty: 90 3RF verapamil 120 mg capsule,ext rel. pellets 24 hr 120 mg PO DAILY Qty: 90 3RF folic acid 1 mg tablet 1 mg PO QDAY furosemide 20 mg tablet 20 - 40 mg PO QDAY PRN (Reason: edema) ibuprofen 800 mg tablet 800 mg PO Q8H PRN (Reason: pain) benzonatate 100 mg capsule 200 mg PO TID PRN (Reason: cough) fluticasone propion-salmeterol [Advair Diskus] 500-50 mcg/dose blister with device 1 ea inhalation BID Incruse Ellipta 62.5 mcg/actuation blister with device 1 inh inhalation QDAY multivitamin with folic acid [Daily-Nettie (with folic acid)] 400 mcg tablet 1 tab PO QDAY losartan 25 mg tablet 25 mg PO QDAY albuterol sulfate 2.5 mg /3 mL (0.083 %) solution for nebulization 2.5 mg continuous nebulization Q6 PRN (Reason: wheezing) esomeprazole magnesium 20 mg capsule,delayed release(DR/EC) 20 mg PO QAM sennosides [Natural Senna Laxative] 8.6 mg tablet 17.2 mg PO BID oxycodone-acetaminophen 10-325 mg tablet 1 tab PO Q4 PRN (Reason: pain) albuterol sulfate 18 GM HFA aerosol inhaler 2 puff inhalation PRN PRN (Reason: Shortness Of Breath) Patient Comments: prednisone 10 mg tablet See Rx Instructions PO .COMPLEX Rx Instructions: TAKE 4 TABLETS BY MOUTH ONCE DAILY for 3 days, then 3 tablets for 3 days, then 2 tablets for 3 days, then 1 tablet for 3 days; TAPER prochlorperazine maleate 10 mg tablet 10 mg PO Q6H PRN levofloxacin 500 mg tablet 500 mg PO DAILY celecoxib 100 mg capsule 100 mg PO Q24H aspirin 81 mg tablet,delayed release (DR/EC) 81 mg PO DAILY@0800 Qty: 90 3RF Referrals / Follow Up: Lulú Camacho MD [Primary Care Provider] - Disposition Disposition (needs filled in before D/C Order can be placed): Acute Care Hospital Charges/Coding Visit Charges Inpatient E&M: 96730 Disch Hosp >30min
== END 2025-04-28 15:45 | disposition short-term general hospital (02) | DRG 720 ==
LOC: ED 14:56 → ICU 23:10
PROVIDERS: Admitting Provider Internal Medicine; Emergency Provider Surgery; PCP Internal Medicine; Visit Provider Family Medicine
DX: A41.9 Sepsis, unspecified organism (principal); J96.01 Acute respiratory failure with hypoxia; C79.51 Secondary malignant neoplasm of bone; C34.90 Malignant neoplasm of unspecified part of unspecified bronchus or lung; J44.0 Chronic obstructive pulmonary disease with (acute) lower respiratory infection; I10 Essential (primary) hypertension; N17.9 Acute kidney failure, unspecified; F17.200 Nicotine dependence, unspecified, uncomplicated; I25.10 Atherosclerotic heart disease of native coronary artery without angina pectoris; J18.9 Pneumonia, unspecified organism; E87.6 Hypokalemia; E83.52 Hypercalcemia; E78.5 Hyperlipidemia, unspecified; K21.9 Gastro-esophageal reflux disease without esophagitis; J44.1 Chronic obstructive pulmonary disease with (acute) exacerbation; I25.2 Old myocardial infarction; G47.33 Obstructive sleep apnea (adult) (pediatric); Z90.710 Acquired absence of both cervix and uterus; Z79.899 Other long term (current) drug therapy; Z79.82 Long term (current) use of aspirin; Z95.5 Presence of coronary angioplasty implant and graft; Z79.51 Long term (current) use of inhaled steroids
CPT/HCPCS: 36600; 71045; 71275; 80053; 81001; 82803; 83605; 83735; 83880; 84484; 85025; 85610; 85730; 87040; 87086; 87449; 87631; 87633; 87641; 93005; 94002; 94003; 94640; 99285; Q9967; A4216